=== PATIENT | male | born 1965 | race African-American/Black ===

== ENCOUNTER 2018-08-27 17:03 | Observation (INO) | payer OTHER, SELFPAY ==
--- OUTSIDE RECORDS SUMMARY | 2018-08-27 17:05 | XMS REPORT | Clinical Summary ---
:1965 Author Organization [facility] Address [address] [place] [address] Care Team Providers Name Role Phone Veronika Botello MD Primary Care Provider Allergies No Known Allergies Medications Medication Sig Dispensed Refills Start Date End Date Status carvedilol (COREG) 25 Take 25 mg by 0 Active MG tablet mouth 2 (two) times a day with meals. lisinopril Take 20 mg by 0 Active (PRINIVIL,ZESTRIL) 20 mouth 2 (two) mg tablet times a day. sacubitril-valsartan Take 1 tablet by 0 Active (ENTRESTO) 49-51 mg mouth 2 (two) tablet per tablet times a day. Active Problems Problem Noted Date Cerebrovascular accident (CVA) due to embolism of right middle cerebral 2016 artery Immunizations Name Dates Previously Given Next Due INFLUENZA QUAD PF 09/18/2016 Social History Tobacco Use Types Packs/Day Years Used Date Current Every Day Smoker Cigarettes 1 Alcohol Use Drinks/Week oz/Week Comments Yes Sex Assigned at Date Recorded Not on file Job Start Date Occupation Industry Not on file Not on file Not on file Travel History Travel Start Travel End No recent travel history available. Last Filed Vital Signs Not on file Plan of Treatment Health Maintenance Due Date Last Done Comments COLON CANCER SCREENING 11/22/2017 SHINGLES VACCINES (1 of 2) 11/22/2017 INFLUENZA VACCINE 03/02/2018 09/18/2016 Implants Implanted Type Area News Analyst Device Shelf Model / Identifier Expiration Serial / Date Lot Neuron Select 5f 130 Cascade - [id number] Surgical N/A: [employer] [id number] / Implanted: 09/18/2016 (Quantity not on file) Implants; N/A / Expanders; Extenders; Surgical Wires Catheter [id number] Reperfusion High Flow Tubing 6.0f 132cm - [id number] Surgical N /A: [employer] [id number] / Implanted: 09/18/2016 (Quantity not on file) Implants; N/A / Expanders; Extenders; Surgical Wires 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 For more information, please contact:Mervin Archer[address] [place] [address]
--- OUTSIDE RECORDS SUMMARY | 2018-08-27 17:26 | XMS REPORT | Continuity of Care Document ---
:1965 Author Organization Interface Problems Problem Status Onset Classification Date Comments Source Date Reported Discharge Diagnosis: 04/24/2017 Acute headache [facility]17 [facility] GOMES Active 017 [facility] HEADACHE Active 017 [facility] I63.9 STROKE, R58 Active [facility] HEMORRHAGE [place] STROKE Active [facility] 017 [facility] Discharge Diagnosis: 08/30/2016 [facility] Seizure [facility]17 [place] SEIZURE Active [facility]17 [place] ACUTE CEREBROVASCULAR Active [facility] ACCIDENT 016 [facility] ARM WEAKNESS, FACIAL Active [facility] DROOP 016 [facility] Discharge Diagnosis: 03/10/2016 [facility] Acute viral syndrome 016 [facility] Discharge Diagnosis: 03/10/2016 [facility] Atypical chest pain 016 [place] Discharge Diagnosis: 03/10/2016 [facility] Acute hypokalemia 016 [facility] CHEST PAIN Active [facility] 016 [facility] Discharge Diagnosis: 02/21/2016 [facility] Syncope 016 [facility] Discharge Diagnosis: 02/21/2016 [facility] Tonic seizure 016 [facility] SYNCOPE Active Greater 016 [facility] Discharge Diagnosis: 11/25/2014 Muscle strain 015 [facility] Discharge Diagnosis: 11/25/2014 Flank pain 015 [facility] BACK PAIN Active 015 [facility] SHORTNESS OF BREATH Active 015 [facility] OTHER TENOSYNOVITIS OF Active [facility] HAND AND WRIST 014 [facility] Center HAND EDEMA Active 014 [place] HAND INFECTION Active [address] ABDOMINAL PAIN Active 014 [facility] Discharge Diagnosis: 12/02/2013 Acute bronchitis 014 [facility] SPITTING UP BLOOD Active 014 [facility] FLU LIKE SYMPTOMS Active 013 [facility] CHF (<span Active Problem 04/24/2017 [facility] ID="[id number]">[facility] [place] rmed</span>) [facility] CHF (<span Active Problem 02/11/2018 [facility] ID="[id number]">[facility] 013 [place] rmed</span>) jai Neuro CVA (<span Active Problem 04/24/2017 [facility] ID="[id number]">[facility] [place] ir[facility]</span>) [facility] Diabetes Resolved Problem 04/24/2017 [facility] [place] H/O: stroke Resolved Problem 04/24/2017 [facility] [place] [place] HTN - Hypertension Active Problem 04/24/2017 [facility] [place] Hypercholesterolemia Active Problem 04/24/2017 [facility] [place] Obesity Active Problem 04/24/2017 [place] Seizure Active Problem 04/24/2017 [facility] [place] Spider bite wound Resolved Problem 04/24/2017 [facility] [place] Syncope Resolved Problem 04/24/2017 [facility] [place] CVA (<span Active Problem 02/11/2018 [facility] ID="[id number]">[place] irmed</span>) [facility] Diabetes Resolved Problem 02/11/2018 [facility] [place] H/O: stroke Resolved Problem 02/11/2018 [facility] [place] HTN - Hypertension Active Problem 02/11/2018 [facility] [place] Hypercholesterolemia Active Problem 02/11/2018 [facility] [place] Obesity Active Problem 02/11/2018 [facility] [place] Seizure Active Problem 02/11/2018 [facility] [place] Spider bite wound Resolved Problem 02/11/2018 [facility] [place] Syncope Resolved Problem 02/11/2018 [facility] [place] CHF NOS Active [facility] RENAL FAILURE NOS Active [facility] BACTERIAL INFECTION Active [facility] SEPTICEMIA NOS Active [facility] LEFT SIDE - STROKE Active [facility] CEREBRAL INFARCTION, Active [facility] UNSPECIFIED [place] ALCOHOL Active Prevention HEMORRHAGE, NOT Active [facility] ELSEWHERE CLASSIFIED [place] ANESTHESIA OF SKIN Active [facility] Medications Medication Details Route Status Patient Ordering Order Source Instructions Provider Date topiramate 25 MG See Active 04/19/ Oral Tablet Instructions, 2016 [facility] [Topamax] 1 tab PO BID for 7 days, then 2 tab PO BID thereafter, # 70 tab, 0 Refill(s), Pharmacy: [facility]/pharmacy #[id number] clopidogrel 75 MG 75 mg=1 tab, Active Oral Tablet PO, Daily, # 2017 [facility] [Plavix] 30 tab, 0 Refill(s), Pharmacy: [facility]/pharmacy #[id number] NIFEdipine 60 mg 60 mg=1 tab, Active oral tablet, PO, Daily, # 2017 [facility] extended release 30 tab, 0 Refill(s), Pharmacy: [facility]/pharmacy #[id number] carvedilol 25 mg 25 mg=1 tab, Active oral tablet PO, BID, # 60 2017 [facility] tab, 0 Refill(s), Pharmacy: [facility]/pharmacy #[id number] atorvastatin 20 mg 20 mg=1 tab, Active oral tablet PO, Bedtime, # 2017 [facility] 30 tab, 0 Refill(s), [id number] Aspirin 325 MG 325 mg=1 tab, Active Enteric Coated PO, Daily, # 2017 [facility] Tablet 100 tab, 0 Refill(s), [id number] sacubitril 97 MG / 1 tab, PO, Active valsartan 103 MG BID, # 60 tab, 2017 [facility] Oral Tablet 0 Refill(s), [id number] heparin sodium, 5,000 unit, 1 Inactive porcine 2500 mL, Route: 2016 [facility] UNT/ML Injectable SUB-Q, Drug Solution form: INJ, Q8H, Dosing Weight 100, kg, Start date: 04/19/17 0:00:00 CDT, Duration: 30 day, Stop date: 05/18/17 16:00:00 CDTNotes: porcine heparin sacubitril 97 MG / 1 tab, Route: No Longer valsartan 103 MG PO, Drug Form: Active 2016 [facility] Oral Tablet TAB, Dosing Weight 100, kg, Q12H, Start date: 04/18/17 21:06:00 CDT, Duration: 30 day, Stop date: 05/18/17 21:00:00 CDTNotes: (Same as: Entresto) Avoid in patients with history of angioedema due to BECKY inhibitor or ARB therapy. Do not use concomitantly or within 36 hours of BECKY inhibitors Saline Flush 0.9% 10 ml, Route: No Longer IVP, Drug Active 2016 [facility] Form: INJ, Dosing Weight 100, kg, Q12H, Start date: 04/18/17 21:00:00 CDT, Duration: 30 day, Stop date: 05/18/17 9:00:00 CDTNotes: (Same as: BD Posiflush) atorvastatin 40 mg, 1 tab, Inactive Route: PO, 2016 Drug form: TAB, Bedtime, Dosing Weight 100, kg, Start date: 04/18/17 21:00:00 CDT, Duration: 30 day, Stop date: 05/17/17 21:00:00 CDTNotes: (Same as: Lipitor) Levetiracetam 750 750 mg, 1.5 No Longer MG Oral Tablet tab, Route: Active 2016 [facility] [Keppra] PO, Drug form: TAB, BID, Dosing Weight 100, kg, Start date: 04/18/17 21:00:00 CDT, Duration: 30 day, Stop date: 05/18/17 17:00:00 CDTNotes: (Same as:Keppra) carvedilol 25 mg, 1 tab, No Longer Route: PO, Active 2016 [facility] Drug form: TAB, Q12H, Dosing Weight 100, kg, Start date: 04/18/17 21:00:00 CDT, Duration: 30 day, Stop date: 05/18/17 9:00:00 CDTNotes: Give with food. (Same As: Coreg) Frantz's wort 1 tab, PO, Active oral capsule [id number], 0 2016 Refill(s) Ibuprofen 800 mg, PO, Active BID, 0 2016 Refill(s) gabapentin 300 MG 300 mg=1 cap, Active Oral Capsule PO, TID, # 90 2016 cap, 1 Refill(s) Hydralazine 10 mg, 0.5 mL, No Longer Route: IVP, Active 2016 [facility] Drug form: INJ, Q4H, Dosing Weight 100, kg, PRN Other -See Comment, Possible stroke patient - allow for some permissive hypertension, Start date: 04/18/17 17:33:00 CDT, Duration: 30 day, Stop date: 05/18/17 17:32:00 CDT, SBP...Notes: (Same as: Apresoline) Push over 5 minutes Zofran 4 mg, 2 mL, No Longer Route: IV, Active 2016 [facility] Drug form: INJ, Q8H, Dosing Weight 100, kg, PRN Nausea, Start date: 04/18/17 17:33:00 CDT, Duration: 30 day, Stop date: 05/18/17 17:32:00 CDTNotes: (Same as: Zofran) MEDICATION WASTE Product Size: 4 mg Product Wasted: ___ mg Tylenol 650 mg, 2 tab, No Longer Route: PO, Active 2016 [facility] Drug form: TAB, Q6H, Dosing Weight 100, kg, PRN Pain 1-3/Temp > 100.4 F, Start date: 04/18/17 17:33:00 CDT, Duration: 30 day, Stop date: 05/18/17:32:00 CDTNotes: Do not exceed 4 gm/day. (Same as: Tylenol) Tums 500 mg, 1 tab, No Longer Route: CHEW, Active 2016 [facility] Drug form: CHEWTAB, Q8H, Dosing Weight 100, kg, PRN Indigestion, Start date: 04/18/17 17:33:00 CDT, Duration: 30 day, Stop date: 05/18/17 17:32:00 CDTNotes: (Same As: Tums) Calcium Carbonate 500 [id number] mg elemental calcium Dose= mg calcium carbonate ( mg elemental calcium) Saline Flush 0.9% 10 ml, Route: Inactive IVP, Drug 2016 [facility] Form: INJ, Dosing Weight 100, kg, PRN, PRN Line Flush, Start date: 04/18/17 17:33:00 CDT, Duration: 30 day, Stop date: 05/18/17 17:32:00 CDT Trazodone 50 mg, 1 tab, No Longer Route: PO, Active 2016 [facility] Drug form: TAB, Bedtime, Dosing Weight 100, kg, PRN Sleep, Start date: 04/18/17 17:33:00 CDT, Duration: 30 day, Stop date: 05/18/17 17:32:00 CDT, ..Notes: (Same As: Desyrel) clopidogrel 75 mg, 1 tab, No Longer Route: PO, Active 2016 [facility] Drug form: TAB, Daily, Dosing Weight 100, kg, Priority: STAT, Start date: 04/18/17 17:33:00 CDT, Duration: 30 day, Stop date: 05/18/17 9:00:00 CDTNotes: (Same As: Plavix) Aspirin 325 MG 325 mg, 1 tab, No Longer Enteric Coated Route: PO, Active 2016 [facility] Tablet Drug form: ECTAB, Daily, Dosing Weight 100, kg, Priority: STAT, Start date: 04/18/17 17:33:00 CDT, Duration: 30 day, Stop date: 05/18/17 9:00:00 CDTNotes: (Do Not Crush) Do not crush or chew. Famotidine 20 mg, 1 tab, No Longer Route: PO, Active 2016 [facility] Drug form: TAB, Q12H, Dosing Weight 100, kg, PRN Indigestion, Start date: 04/18/17 17:33:00 CDT, Duration: 30 day, Stop date: 05/18/17 17:32:00 CDTNotes: (Same as: Pepcid) Docusate 100 mg, 1 cap, No Longer Route: PO, Active 2016 [facility] Drug form: CAP, Q12H, Dosing Weight 100, kg, PRN as needed for constipation, Start date: 04/18/17 17:33:00 CDT, Duration: 30 day, Stop date: 05/18/17 17:32:00 CDTNotes: (Same as: Colace) (Do Not Crush) Aspirin 324 mg, 4 tab, Inactive Route: CHEW, 2016 [facility] Drug form: CHEWTAB, ONCE, Dosing Weight 100, kg, Priority: STAT, Start date: 04/18/17 17:30:00 CDT, Stop date: 04/18/17 17:30:00 CDTNotes: Take with food. Metoclopramide 10 mg, 2 mL, Inactive Route: IVP2016 [facility] Drug form: INJ, ONCE, Dosing Weight 100, kg, Priority: STAT, Start date: 04/18/17 15:27:00 CDT, Stop date: 04/18/17 15:27:00 CDTNotes: (Same as: Reglan) Diphenhydramine 25 mg, 0.5 mL, Inactive Route: IVP, 2016 [facility] Drug form: INJ, ONCE, Dosing Weight 100, kg, Priority: STAT, Start date: 04/18/17 15:27:00 CDT, Stop date: 04/18/17 15:27:00 CDTNotes: (Same as: Benadryl) Saline Flush 0.9% 10 mL, Route: No Longer IVP, Drug Active 2016 [facility] Form: INJ, Dosing Weight 100, kg, PRN, PRN Line Flush, Start date: 04/18/17 15:27:00 CDT, Duration: 30 day, Stop date: 05/18/17 15:26:00 CDTNotes: (Same as: BD Posiflush) Tylenol 650 mg, 2 tab, Inactive Route: PO, 2016 [facility] Drug form: TAB, ONCE, Dosing Weight 97.727, kg, Priority: STAT, Start date: 08/27/16 15:28:00 SEISMOGRAPH OBSERVER, Stop date: 08/27/16 15:28:00 CSTNotes: Do not exceed 4 gm/day. (Same as: Tylenol) Saline Flush 0.9% 10 mL, Route: Inactive Greater IVP, Drug 2016 [facility] Form: INJ, Dosing Weight 97.727, kg, PRN, PRN Line Flush, Start date: 08/27/16 13:45:00 SEISMOGRAPH OBSERVER, Duration: 30 day, Stop date: 09/26/16 13:44:00 CSTNotes: Same as: BD Posiflush Sterile Levetiracetam 1000 1,000 mg, 2 Inactive [facility] MG Oral Tablet tab, Route: 2015 [facility] [Keppra] PO, Drug form: TAB, Q12H, Dosing Weight 97.727, kg, Start date: 07/30/16 21:00:00 SEISMOGRAPH OBSERVER, Duration: 30 day, Stop date: 08/29/16 9:00:00 CSTNotes: (Same as:Keppra) Omnipaque 350 100 mL, 100 Inactive [facility] ml/hr, Route: 2015 IV, Drug Form: SOLN, ONCALL, Start date: 07/30/16 9:00:00 SEISMOGRAPH OBSERVER, Duration: 48 hr, Stop date: 08/01/16 8:59:00 CSTNotes: (same as:Omnipaque 350). WASTE: F/P - Black; E - Municipal Trash Bin Levetiracetam 750 750 mg=1 tab, Active [facility] MG Oral Tablet PO, BID, # 60 2015 [Keppra] tab, 0 Refill(s) Aspirin 325 MG 325 mg=1 tab, Active [facility] Oral Tablet PO, Daily, # 2015 50 tab, 0 Refill(s) Aspirin 325 mg, 1 tab, No Longer Greater Route: PO, Active 2015 Drug form: TAB, Daily, Dosing Weight 97.727, kg, Start date: 07/29/16 9:00:00 SEISMOGRAPH OBSERVER, Duration: 30 day, Stop date: 08/27/16 9:00:00 CSTNotes: Take with food. Ambien 5 mg, 1 tab, No Longer Greater Route: PO, Active 2015 Drug form: TAB, Bedtime, Dosing Weight 97.727, kg, PRN Insomnia, Start date: 07/28/16 21:30:00 SEISMOGRAPH OBSERVER, Duration: 30 day, Stop date: 08/27/16 21:29:00 CSTNotes: (Same As: Ambien) Chlordiazepoxide 25 mg, 1 cap, No Longer Greater Hydrochloride 25 Route: PO, Active 2015 [facility] Oral Capsule Drug form: CAP, QID, Dosing Weight 97.727, kg, Start date: 07/28/16 17:00:00 SEISMOGRAPH OBSERVER, Duration: 30 day, Stop date: 08/27/16 13:00:00 SEISMOGRAPH OBSERVER Keppra 1,000 mg, 100 No Longer Greater mL, Route: Active 2015 IVPB, Drug form: INJ, Q12H, Dosing Weight 97.727, kg, Priority: NOW, Start date: 07/28/16 14:54:00 SEISMOGRAPH OBSERVER, Duration: 30 day, Stop date: 08/27/16 9:00:00 SEISMOGRAPH OBSERVER Levetiracetam 1000 1,000 mg, Inactive Greater MG Oral Tablet Route: PO, 2015 [Keppra] Drug form: TAB, Q12H, Dosing Weight 97.727, kg, Priority: NOW, Start date: 07/28/16 14:53:00 SEISMOGRAPH OBSERVER, Duration: 30 day, Stop date: 08/27/16 9:00:00 SEISMOGRAPH OBSERVER Benzocaine 15 MG / 1 lozenge, No Longer Greater Menthol 3.6 MG Route: MUCOUS Active 2015 Lozenge [Cepacol MEM, Drug Sore Throat Pain Form: LADARIUS, Relief 15/3.6] Dosing Weight 97.727, kg, Q4H, PRN Sore Throat, Start date: 07/28/16 10:06:00 SEISMOGRAPH OBSERVER, Duration: 30 day, Stop date: 08/27/16 10:05:00 CSTNotes: Same as: Cepacol tramadol 50 mg, 1 tab, No Longer Greater hydrochloride 50 Route: PO, Active 2015 [facility] Oral Tablet Drug form: TAB, Q4H, Dosing Weight 97.727, kg, PRN Pain Score 1-3, Start date: 07/28/16 9:45:00 SEISMOGRAPH OBSERVER, Duration: 30 day, Stop date: 08/27/16 9:44:00 CSTNotes: Not to exceed 400mg/day. (Same As: Ultram) sacubitril 49 MG / 1 tab, Route: No Longer Greater valsartan 51 MG PO, Drug Form: Active 2015 Oral Tablet TAB, Dosing [Entresto] Weight 97.727, kg, BID, Start date: 07/28/16 9:00:00 SEISMOGRAPH OBSERVER, Duration: 30 day, Stop date: 08/26/16 17:00:00 SEISMOGRAPH OBSERVER Ativan 1 mg, 0.5 mL, No Longer Greater Route: IVP, Active 2015 Drug form: INJ, Q15Min, Dosing Weight 97.727, kg, PRN Seizure, CALL MD IF SEIZURE DOES NOT STOP AFTER 2 DOSES, Start date: 07/28/16 4:38:00 SEISMOGRAPH OBSERVER, Duration: 30 day, Stop date: 08/27/16 4:37:00 CSTNotes: (Same as: Ativan) Saline Flush 0.9% 10 ml, Route: No Longer Greater IVP, Drug Active 2015 Form: INJ, Dosing Weight 97.727, kg, Q12H, Start date: 07/27/16 21:00:00 SEISMOGRAPH OBSERVER, Duration: 30 day, Stop date: 08/26/16 9:00:00 CSTNotes: Same as: BD Posiflush Sterile Lipitor 20 mg, 1 tab, No Longer Greater Route: PO, Active 2015 Drug form: TAB, Bedtime, Dosing Weight 97.727, kg, Start date: 07/27/16 21:00:00 SEISMOGRAPH OBSERVER, Duration: 30 day, Stop date: 08/25/16 21:00:00 CSTNotes: (Same As: Lipitor) sacubitril-valsart 2 tab, Route: No Longer Greater an PO, Drug Form: Active 2015 TAB, Q12H, Start date: 07/27/16 21:00:00 SEISMOGRAPH OBSERVER, Duration: 30 day, Stop date: 08/26/16 9:00:00 CSTNotes: (Same as: Entresto) Avoid in patients with history of angioedema due to BECKY inhibitor or ARB therapy. Do not use concomitantly or within 36 hours of BECKY inhibitors Clonidine 0.2 mg, 1 tab, No Longer Greater Hydrochloride 0.2 Route: PO, Active 2015 [facility] Oral Tablet Drug form: TAB, Q4H, Dosing Weight 97.727, kg, PRN Hypertension, FOR SBP>170, Start date: 07/27/16 20:28:00 SEISMOGRAPH OBSERVER, Duration: 30 day, Stop date: 08/26/16 20:27:00 CSTNotes: (Same As: Catapres) Tylenol 650 mg, 2 tab, No Longer Greater Route: PO, Active 2015 Drug form: TAB, Q4H, Dosing Weight 97.727, kg, PRN Pain Score 1-3, Start date: 07/27/16 20:25:00 SEISMOGRAPH OBSERVER, Duration: 30 day, Stop date: 08/26/16 20:24:00 CSTNotes: Do not exceed 4 gm/day. (Same as: Tylenol) Saline Flush 0.9% 10 ml, Route: No Longer Greater IVP, Drug Active 2015 Form: INJ, Dosing Weight 97.727, kg, PRN, PRN Line Flush, Start date: 07/27/16 19:29:00 SEISMOGRAPH OBSERVER, Duration: 30 day, Stop date: 08/26/16 19:28:00 CSTNotes: Same as: BD Posiflush Sterile 24 HR Nifedipine 60 mg, 1 tab, No Longer Greater 60 MG Extended Route: PO, Active 2015 Release Tablet Drug form: ERTAB, Daily, Dosing Weight 97.727, kg, Start date: 07/27/16 18:15:00 SEISMOGRAPH OBSERVER, Duration: 30 day, Stop date: 08/26/16 9:00:00 CSTNotes: (Same as: Adalat CC, Procardia XL) Give on empty stomach. Take 1 hour before or 2 hours after meal; "Avoid grapefruit and grapefruit juice". Do not crush carvedilol 25 mg, 1 tab, No Longer Greater Route: PO, Active 2015 Drug form: TAB, BID, Dosing Weight 97.727, kg, Start date: 07/27/16 18:14:00 SEISMOGRAPH OBSERVER, Duration: 30 day, Stop date: 08/26/16 17:00:00 CSTNotes: Give with food. (Same As: Coreg) Keppra 500 mg, Route: No Longer Greater IVPB, BID, Active 2015 Dosing Weight 97.727, kg, Priority: Routine, Start date: 07/27/16 17:00:00 SEISMOGRAPH OBSERVER, Duration: 30 day, Stop date: 08/26/16 5:00:00 CSTNotes: Same as Keppra Mix with 100 mL NS, LR or D5W MEDICATION WASTE Product Size: 500 mg Product Wasted: ___ mg Ativan 1 mg, 0.5 mL, Inactive Route: IVP, 2015 Drug form: INJ, ONCE, Priority: NOW, Start date: 07/27/16 16:22:00 SEISMOGRAPH OBSERVER, Stop date: 07/27/16 16:22:00 CSTNotes: (Same as: Ativan) pneumococcal 0.5 mL, Route: No Longer Greater capsular IM, Drug Form: Active 2015 polysaccharide INJ, ONCALL, type 1 vaccine / Start date: pneumococcal 07/27/16 capsular 14:55:38 SEISMOGRAPH OBSERVER, polysaccharide Stop date: type 10A vaccine / 08/26/16 pneumococcal 14:50:38 capsular CSTNotes: polysaccharide (Same as: type 11A vaccine / Pneumovax 23) pneumococcal Refrigerate capsular polysaccharide type 12F vaccine / pneumococcal capsular polysacchar influenza virus 0.5 mL, Route: No Longer Greater vaccine, IM, Drug Form: Active 2015 inactivated SUSP, ONCALL, Start date: 07/27/16 14:54:37 SEISMOGRAPH OBSERVER, Stop date: 08/26/16 14:49:37 CSTNotes: (Same as: Fluzone Quadrivalent, Fluarix Quadrivalent) For 3 years of age and older (0.5 mL IM) Shake well before use sacubitril 49 MG / 1 tab, PO, BID Active valsartan 51 MG 2015 Oral Tablet [Entresto] Aspirin 324 mg, 4 tab, Inactive Route: CHEW, 2015 Drug form: CHEWTAB, ONCE, Dosing Weight 97.727, kg, Priority: STAT, Start date: 07/27/16 13:12:00 SEISMOGRAPH OBSERVER, Stop date: 07/27/16 13:12:00 CSTNotes: Take with food. Acetaminophen 325 1 tab, Route: Inactive Greater MG / Hydrocodone PO, Drug Form: 2015 Bitartrate 5 MG TAB, Dosing Oral Tablet [[place] Weight 97.727, 5/325] kg, ONCE, STAT, Start date: 07/27/16 13:12:00 SEISMOGRAPH OBSERVER, Stop date: 07/27/16 13:12:00 CSTNotes: (Same as: [place] 325/5) Do not exceed 4gm/day of acetaminophen. Saline Flush 0.9% 10 mL, Route: No Longer Greater IVP, Drug Active 2015 Form: INJ, Dosing Weight 94.545, kg, PRN, PRN Line Flush, Start date: 07/27/16 11:14:00 SEISMOGRAPH OBSERVER, Duration: 30 day, Stop date: 08/26/16 11:13:00 CSTNotes: Same as: BD Posiflush Sterile Potassium Chloride 20 mEq=15 mL, Active Greater 1.33 MEQ/ML Oral PO, BID, 1.33 2015 [facility] Solution mEq/ml, # 150 mL, 0 Refill(s) potassium chloride 10 mEq, 100 Inactive Greater mL, Route: 2015 [facility] IVPB, Drug form: INJ, Q1H, Dosing Weight 94.545, kg, Total Dose=40 meq, Start date: 03/07/16 16:00:00 CDT, Duration: 4 doses or times, Stop date: 03/07/16 19:00:00 CDT, Peripheral LineNotes: Infuse at a rate of 10 mEq/hr. (Same as: KCL) sodium chloride 1,000 mL, Inactive Greater 0.9% 1000 ml INJ Rate: 1,000 2015 [facility] 1,000 mL ml/hr, Infuse over: 1 hr, Route: IV, Dosing Weight 94.545 kg, Total Volume: 1,000, Priority: STAT, Start date: 03/07/16 15:27:00 CDT, Duration: 1 doses or times, Stop date: 03/07/16 16:26:00 CDT atorvastatin 20 MG 20 mg=1 tab, Active Greater Oral Tablet PO, Daily 2015 [facility] [Lipitor] 24 HR Nifedipine 60 mg=1 tab, Active Greater 60 MG Extended PO, Daily 2015 [facility] Release Tablet lisinopril 20 mg 20 mg=1 tab, Active Greater oral tablet PO, BID 2015 [facility] carvedilol 25 mg 25 mg=1 tab, Active Greater oral tablet PO, BID 2015 [facility] Potassium Chloride 40 mEq, 15 mL, Inactive Greater 1.33 MEQ/ML Oral Route: PO, 2015 [facility] Solution Drug form: LIQ, ONCE, Dosing Weight 94.545, kg, Priority: STAT, Start date: 03/07/16 15:12:00 CDT, Stop date: 03/07/16 15:12:00 CDT GI cocktail 30 mL, Route: Inactive PO, Drug Form: 2015 SUSP, Dosing Weight 94.545, kg, ONCE, STAT, Start date: 03/07/16 13:44:00 CDT, Stop date: 03/07/16 13:44:00 CDTNotes: G.I. Cocktail=antac id with simethicone 22.5 mL - lidocaine viscous 7.5 mL Tylenol 650 mg, 2 tab, Inactive Route: PO, 2015 Drug form: TAB, ONCE, Dosing Weight 94.545, kg, Priority: STAT, Start date: 03/07/16 13:43:00 CDT, Stop date: 03/07/16 13:43:00 CDTNotes: Do not exceed 4 gm/day. (Same as: Tylenol) Sodium Chloride 1,000 mL, 1000 Inactive 0.154 MEQ/ML ml/hr, Infuse 2015 Injectable Over: 1 hr, Solution Route: IV, 1,000, Drug form: INJ, ONCE, Priority: STAT, Dosing Weight 94.545 kg, Start date: 03/07/16 13:04:00 CDT, Duration: 1 doses or times, Stop date: 03/07/16 13:04:00 CDT Saline Flush 0.9% 10 mL, Route: Inactive IVP, Drug 2015 Form: INJ, Dosing Weight 94.545, kg, PRN, PRN Line Flush, Start date: 03/07/16 13:04:00 CDT, Duration: 30 day, Stop date: 04/06/16 13:03:00 CDTNotes: Same as: BD Posiflush Sterile Omnipaque 350 100 mL, Route: Inactive INJ, Drug 2015 [facility] Form: SOLN, ONCALL, Start date: 02/18/16 16:00:00 CDT, Duration: 1 doses or timesNotes: (same as:Omnipaque 350). WASTE: F/P - Black; E - Municipal Trash Bin Hydralazine 20 mg, 1 mL, Inactive Route: IVP, 2015 Drug form: INJ, ONCE, Dosing Weight 81.818, kg, Priority: STAT, Start date: 02/18/16 15:08:00 CDT, Stop date: 02/18/16 15:08:00 CDTNotes: (Same as: Apresoline) Push over 5 minutes Acetaminophen 650 mg, 2 tab, Inactive Route: PO, 2015 Drug form: TAB, ONCE, Dosing Weight 81.818, kg, Priority: STAT, Start date: 02/18/16 12:26:00 CDT, Stop date: 02/18/16 12:26:00 CDTNotes: Do not exceed 4 gm/day. (Same as: Tylenol) Labetalol 20 mg, 4 mL, Inactive Route: IVP, 2015 Drug form: INJ, ONCE, Dosing Weight 81.818, kg, Priority: STAT, Start date: 02/18/16 12:26:00 CDT, Stop date: 02/18/16 12:26:00 CDT Saline Flush 0.9% 10 mL, Route: Inactive IVP, Drug 2015 Form: INJ, Dosing Weight 81.818, kg, PRN, PRN Line Flush, Start date: 02/18/16 11:44:00 CDT, Duration: 30 day, Stop date: 03/19/16 11:43:00 CDTNotes: Same as: BD Posiflush Sterile Naproxen sodium 550 mg=1 tab, Active [facility] 550 MG Oral Tablet PO, BID, PRN 2014 [facility] [Anaprox] Pain, X 10 day, # 20 tab, 0 Refill(s) Acetaminophen 300 1 - 2 tab, PO, No Longer [facility] MG / Codeine Q4H, PRN Pain, Active 2014 [facility] Phosphate 60 MG X 2 day, # 12 Oral Tablet tab, 0 [Tylenol with Refill(s) Codeine #4] Cyclobenzaprine 10 mg=1 tab, Active hydrochloride 10 PO, TID, PRN 2014 [facility] MG Oral Tablet for spasm/back [Flexeril] pain, X 5 day, # 15 tab, 0 Refill(s) carvedilol PO, 0 Active Refill(s) 2014 [facility] Lisinopril PO, Daily, 0 Active Refill(s) 2014 [facility] Metformin PO, 0 Active Refill(s) 2014 [facility] Simvastatin PO, Bedtime, 0 Active Refill(s) 2014 [facility] Hydrochlorothiazid PO, Daily, 0 Active e Refill(s) 2014 [facility] Morphine 4 mg, Route: Inactive IVP, ONCE, 2014 [facility] Dosing Weight 93.835, kg, Priority: STAT, Start date: 11/22/14 11:18:00, Stop date: 11/22/14 11:18:00 Ketorolac 30 mg, Route: Inactive IVP, ONCE, 2014 [facility] Dosing Weight 93.835, kg, Priority: STAT, Start date: 11/22/14 11:18:00, Stop date: 11/22/14 11:18:00 Ondansetron 4 mg, Route: Inactive IVP, ONCE, 2014 [facility] Dosing Weight 93.835, kg, Priority: STAT, Start date: 11/22/14 11:18:00, Stop date: 11/22/14 11:18:00 Saline Flush 0.9% 10 mL, Route: Inactive IVP, Drug 2014 [facility] Form: INJ, Dosing Weight 93.835, kg, PRN, PRN Line Flush, Start date: 11/22/14 11:18:00, Duration: 12 hr, Stop date: 11/22/14 23:17:00Notes: (Same as: BD Posiflush) Sodium Chloride 1,000 mL, Inactive 0.154 MEQ/ML Infuse Over: 1 2014 [facility] Injectable hr, Route: IV, Solution ONCE, Priority: STAT, Dosing Weight 93.835 kg, Start date: 11/22/14 11:18:00, Duration: 1 doses or times, Stop date: 11/22/14 11:18:00 tramadol 50 mg=1 tab, Active hydrochloride 50 PO, Q6H, # 30 2015 [facility] Oral Tablet tab, 0 Refill(s) lisinopril 10 mg 10 mg=1 tab, Active oral tablet PO, Daily, # 2015 [facility] 60 tab, 0 Refill(s) carvedilol 25 mg 25 mg=1 tab, Active oral tablet PO, Q12H, # 60 2014 [facility] tab, 0 Refill(s) Aspirin 81 MG 81 mg=1 tab, Active Enteric Coated PO, Daily, # 2015 [facility] Tablet 30 tab, 0 Refill(s) Hydrochlorothiazid 25 mg=1 tab, Active e 25 MG Oral PO, Daily, # 2015 [facility] Tablet 30 tab, 0 Refill(s) Alprazolam 0.5 MG 0.5 mg=1 tab, Active Oral Tablet PO, TID, 2014 [facility] [Xanax] Anxiety, # 24 tab, 0 Refill(s) Ciprofloxacin 500 500 mg=1 tab, Active [place] Oral Tablet PO, Q12H, # 14 2014 [facility] [Cipro] tab, 0 Refill(s) Albuterol 0.09 1 puff, Active MG/ACTUAT Inhalant INHALATION, 2014 [facility] Solution QID, wheezing, # 1 ea, 0 Refill(s) {21 As directed on Active (Methylprednisolon package 2014 [facility] e 4 MG Oral Tablet instructions, [Medrol]) } Pack PO, Daily, [Medrol Dosepak] Take with or without food, # 1 Pack, 0 Refill(s)Speci al Instructions: Take with or without food simvastatin 40 mg 40 mg=, PO, Active oral tablet Bedtime, # 30 2014 [facility] tab, 0 Refill(s) Metformin 500 mg=1 tab, Active hydrochloride 500 PO, BID, # 60 2014 [facility] Oral Tablet tab, 0 Refill(s) vancomycin + 1.25 gm, Inactive Dextrose 5% in Route: IVPB, 2014 [facility] Water IV 250 mL [id number], Start date: 08/17/14 6:00:00, Duration: 30 day, Stop date: 09/15/14 18:00:00Notes: (Same As: Vancocin) Infusion rate 2001 mg: infuse over 2.5 hours vancomycin + 1.5 gm, Route: Inactive Dextrose 5% in IVPB, ONCE, 2014 [facility] Water IV 250 mL Start date: 08/16/14 18:00:00, Stop date: 08/16/14 18:00:00Notes: (Same As: Vancocin) Infusion rate 2001 mg: infuse over 2.5 hours Vancomycin 1 ea, Route: Inactive MISC, Dosing 2014 [facility] Weight 96.96, kg, ONCALL, STAT, Start date: 08/16/14 16:33:00, Duration: 1 doses or times, Pharmacy to doseSpecial Instructions: Pharmacy to dose Zosyn 3.375 gm, No Longer Route: IVPB, Active 2014 [facility] [id number], Dosing Weight 96.96, kg, Start date: 08/16/14 12:00:00, Duration: 30 day, Stop date: 09/12/14 12:00:00Notes: (Same as: Zosyn) Dosing based on Piperacillin component carvedilol 25 mg, 1 tab, No Longer Route: PO, Active 2014 [facility] Drug form: TAB, BID, Dosing Weight 113.636, kg, Start date: 08/15/14 21:00:00, Duration: 30 day, Stop date: 09/14/14 9:00:00Notes: Give with food. (Same As: Coreg) multivitamin 1 tab, Route: No Longer PO, Drug Form: Active 2014 [facility] TAB, BID, Start date: 08/15/14 21:00:00, Duration: 2 day, Stop date: 08/17/14 9:00:00Notes: Same as Cerefolin NAC Non-formulary item Levaquin 750 mg, 150 No Longer mL, Route: Active 2014 [facility] IVPB, Drug form: SOLN, [id number], Dosing Weight 96.96, kg, Start date: 08/15/14 19:00:00, Duration: 30 day, Stop date: 09/13/14 19:00:00Notes: (Same as:Levaquin) Albuterol 0.833 3 mL, Route: No Longer MG/ML / NEB, Drug Active 2014 [facility] Ipratropium Form: SOLN, [place] 0.167 Dosing Weight MG/ML Inhalant 113.636, kg, Solution [id number], Start date: 08/15/14 19:00:00, Stop date: 09/13/14 11:00:00Notes: (Same as: Duoneb) Vasotec 1.25 mg, 1 mL, No Longer Route: IVP, Active 2014 [facility] Drug form: INJ, Q8H, Dosing Weight 96.96, kg, PRN Other -See Comment, PRN SBP >/=160, Start date: 08/15/14 18:42:00, Duration: 30 day, Stop date: 09/14/14 18:41:00Notes: (Same as: Vasotec-IV) Acetylcysteine 200 600 mg, Route: Inactive MG/ML Inhalant PO, Drug form: 2014 [facility] Solution SOLN, BID, Dosing Weight 96.96, kg, Priority: STAT, Start date: 08/15/14 18:35:00, Duration: 2 day, Stop date: 08/17/14 17:00:00 Lopressor 5 mg, 5 mL, No Longer Route: IVP, Active 2014 [facility] Drug form: INJ, Q6H, Dosing Weight 96.96, kg, PRN Other -See Comment, Start date: 08/15/14 18:34:00, Duration: 30 day, Stop date: 09/14/14 18:33:00, HR >/=100 OR SBP >/=175Notes: (Same as: Lopressor) Push over 2 minutes Clonidine 0.1 mg, 1 tab, No Longer Hydrochloride 0.1 Route: PO, Active 2014 [facility] Oral Tablet Drug form: TAB, TID, Dosing Weight 96.96, kg, PRN Other -See Comment, Start date: 08/15/14 18:34:00, Duration: 30 day, Stop date: 09/14/14 18:33:00, sbp >/=180Notes: (Same As: Catapres) Hydralazine 10 mg, 0.5 mL, No Longer Route: IVP, Active 2014 [facility] Drug form: INJ, Q6H, Dosing Weight 96.96, kg, PRN Other -See Comment, Start date: 08/15/14 18:34:00, Duration: 30 day, Stop date: 09/14/14 18:33:00, SBP>/=160 OR DBP>/=90Notes: (Same as: Apresoline) Push over 5 minutes Ativan 1 mg, 0.5 mL, No Longer Route: IVP, Active 2014 [facility] Drug form: INJ, TID, Dosing Weight 96.96, kg, PRN Anxiety, Priority: STAT, Start date: 08/15/14 16:16:00, Duration: 30 day, Stop date: 09/14/14 16:15:00Notes: (Same as: Ativan) Morphine 2 mg, 1 mL, No Longer Route: IVP, Active 2014 [facility] Drug form: INJ, Q6H, Dosing Weight 96.96, kg, PRN Pain Score 4-6, Start date: 08/15/14 16:15:00, Duration: 30 day, Stop date: 09/14/14 16:14:00Notes: (Same as:MORPhine Sulfate) Ativan 0.25 mg, 0.13 Inactive mL, Route: IV, 2014 [facility] Drug form: INJ, ONCE, Dosing Weight 96.96, kg, Start date: 08/15/14 14:15:00, Stop date: 08/15/14 14:15:00Notes: (Same as: Ativan) Aspirin 81 MG 81 mg, 1 tab, No Longer Enteric Coated Route: PO, Active 2014 [facility] Tablet Drug form: ECTAB, Daily, Dosing Weight 96.96, kg, Start date: 08/15/14 9:00:00, Duration: 30 day, Stop date: 09/13/14 9:00:00Notes: Do not crush or chew. (Same As: Ecotrin) Simvastatin 40 mg, 2 tab, No Longer Route: PO, Active 2014 [facility] Drug form: TAB, Bedtime, Dosing Weight 96.96, kg, Start date: 08/14/14 21:00:00, Duration: 30 day, Stop date: 09/12/14 21:00:00Notes: (Same as: Zocor) Coreg 12.5 mg, 1 No Longer tab, Route: Active 2014 [facility] PO, Drug form: TAB, Q12H, Dosing Weight 96.96, kg, Start date: 08/14/14 21:00:00, Duration: 30 day, Stop date: 09/13/14 9:00:00Notes: Give with food. (Same As: Coreg) Acetaminophen 650 mg, 1 No Longer supp, Route: Active 2014 [place], Drug form: SUPP, Q6H, Dosing Weight 96.96, kg, PRN For Temp > 100.4 F, Start date: 08/14/14 19:53:00, Duration: 30 day, Stop date: 09/13/14 19:52:00Notes: Max acetaminophen= 4000 mg/day (4 gm/day). (Same as: Tylenol) tramadol 50 mg, 1 tab, No Longer hydrochloride 50 Route: PO, Active 2014 [facility] Oral Tablet Drug form: TAB, Q4H, Dosing Weight 96.96, kg, PRN Pain Score 1-3, Start date: 08/14/14 19:53:00, Duration: 30 day, Stop date: 09/13/14 19:52:00Notes: Not to exceed 400mg/day. (Same As: Ultram) Insulin, Aspart, 1 unit, 0.01 No Longer Human mL, Route: Active 2014 [place] SUB-Q, Drug form: SOLN, TID-Before Meals, Dosing Weight 96.96, kg, PRN Blood Glucose Results, Start date: 08/14/14 19:28:00, Duration: 30 day, Stop date: 09/13/14 19:27:00Notes: Roll in palms of hands gently; Do not shake vigorously. (Same as: NovoLOG) "single patient use only" Stable for 28 days at room temperature. Expires in days from Date Dextrose 50% 12.5 gm, 25 No Longer Syringe mL, Route: Active 2014 [place] IVP, Drug Form: INJ, Dosing Weight 96.96, kg, PRN, PRN Blood Glucose Results, Start date: 08/14/14 19:28:00, Duration: 30 day, Stop date: 09/13/14 19:27:00 Glucagon 1 mg, Route: No Longer IM, Drug form: Active 2014 [place] PDR/INJ, PRN, Dosing Weight 96.96, kg, PRN Blood Glucose Results, Start date: 08/14/14 19:28:00, Duration: 30 day, Stop date: 09/13/14 19:27:00 Magnesium Oxide 400 mg, 1 tab, No Longer Route: PO, Active 2014 [facility] Drug form: TAB, BID, Dosing Weight 113.636, kg, Start date: 08/14/14 11:30:00, Duration: 30 day, Stop date: 09/13/14 9:00:00Notes: (Same as: Mag-Ox 400) Magnesium oxide [id number] elemental magnesium Dose=____mg magnesium oxide (___mg elemental magnesium) Lisinopril 10 mg, 1 tab, No Longer Route: PO, Active 2014 [facility] Drug form: TAB, BID, Dosing Weight 113.636, kg, Start date: 08/14/14 11:30:00, Duration: 30 day, Stop date: 09/13/14 9:00:00Notes: (Same as: Prinivil, Zestril) carvedilol 25 mg, 1 tab, No Longer Route: PO, Active 2014 [facility] Drug form: TAB, BID, Dosing Weight 113.636, kg, Start date: 08/14/14 11:30:00, Duration: 30 day, Stop date: 09/13/14 9:00:00Notes: Give with food. (Same As: Coreg) Hydralazine 10 mg, 0.5 mL, No Longer Route: IVP, Active 2014 [facility] Drug form: INJ, Q2H, Dosing Weight 113.636, kg, PRN Hypertension, Priority: STAT, Start date: 08/14/14 11:04:00, Stop date: 09/13/14 11:03:00, For SBP above 180 and DBP above 110Notes: (Same as: Apresoline) Push over 5 minutes Tamiflu 75 mg, 1 cap, No Longer Route: PO, Active 2014 [facility] Drug form: CAP, [id number], Dosing Weight 113.636, kg, CrCl >=30 ml/hr, Start date: 08/14/14 11:00:00, Duration: 5 day, Stop date: 08/18/14 23:00:00Notes: Take with food. Same as: Tamiflu) Enoxaparin 40 mg, 0.4 mL, No Longer Route: SUB-Q, Active 2014 [facility] Drug form: INJ, [id number], Dosing Weight 113.636, kg, Start date: 08/14/14 11:00:00, Duration: 30 day, Stop date: 09/12/14 11:00:00Notes: (Same as: Lovenox) Albuterol 0.833 3 mL, Route: No Longer MG/ML / NEB, Drug Active 2014 [facility] Ipratropium Form: SOLN, [place] 0.167 Dosing Weight MG/ML Inhalant 113.636, kg, Solution PRN, PRN Respiratory Protocol, Start date: 08/14/14 10:53:00, Duration: 30 day, Stop date: 09/13/14 10:52:00Notes: (Same as: Duoneb) Ondansetron 4 mg, 2 mL, No Longer Route: IVP, Active 2014 [facility] Drug form: INJ, Q6H, Dosing Weight 113.636, kg, PRN Nausea & Vomiting, Start date: 08/14/14 10:53:00, Duration: 30 day, Stop date: 09/13/14 10:52:00Notes: (Same as: Zofran) Acetaminophen 650 mg, 2 tab, No Longer Route: PO, Active 2014 [facility] Drug form: TAB, Q4H, Dosing Weight 113.636, kg, PRN Pain Score 1-3, For fever > 100.4. Not to exceed 4 grams in 24 hours, Start date: 08/14/14 10:53:00, Duration: 30 day, Stop date: 09/13/14 10:52:00Notes: Do not exceed 4 gm/day. (Same as: Tylenol) Guaifenesin 200 mg, 10 mL, No Longer Route: PO, Active 2014 [facility] Drug form: SYRP, Q4H, Dosing Weight 113.636, kg, PRN Cough, Start date: 08/14/14 10:53:00, Duration: 30 day, Stop date: 09/13/14 10:52:00Notes: (Same as: Robitussin) Lasix 40 mg, 4 mL, Inactive Route: IVP, 2014 [facility] Drug form: INJ, ONCE, Dosing Weight 113.636, kg, Priority: STAT, Start date: 08/14/14 8:27:00, Stop date: 08/14/14 8:27:00Notes: (Same as: Lasix) Zithromax 500 mg, 250 Inactive mL, Route: 2014 [facility] IVPB, Drug form: PDR/INJ, ONCE, Dosing Weight 113.636, kg, Priority: STAT, Start date: 08/14/14 8:27:00, Stop date: 08/14/14 8:27:00Notes: Same as: Zithromax Rocephin 1 gm, Route: Inactive IVPB, ONCE, 2014 [facility] Dosing Weight 113.636, kg, Priority: STAT, Start date: 08/14/14 8:27:00, Stop date: 08/14/14 8:27:00Notes: (Same As: Rocephin). Use with 100ml NS mini-bag PLUS and infuse over 30 min Labetalol 10 mg, 2 mL, Inactive Route: IVP, 2014 [facility] Drug form: INJ, ONCE, Dosing Weight 113.636, kg, Priority: STAT, Start date: 08/14/14 7:45:00, Stop date: 08/14/14 7:45:00Notes: (Same as: Normodyne, Trandate) Push over 2 minutes Give bolus over 2-3 minutes. 24 HR 1 patch, Inactive Nitroglycerin 0.4 Route: 2014 [facility]/HR Transdermal Transdermal, Patch Drug Form: ERFILM, Dosing Weight 113.636, kg, ONCE, Start date: 08/14/14 7:45:00, Stop date: 08/14/14 7:45:00Notes: Apply only once for up to 12 hours in a 24 hour period (12 hours on and 12 hours off.) (Same as:NitroKaylin Nath,Maryana rm Nitro) For topical use only. "Remove old patch before application of new patch" Albuterol 1 MG/ML 5 mg, 1 mL, Inactive Inhalant Solution Route: 2014 [facility] INHALATION, Drug form: SOLN, ONCE, Dosing Weight 113.636, kg, Start date: 08/14/14 7:45:00, Stop date: 08/14/14 7:45:00Notes: SEE RT DOCUMENTATION Saline Flush 0.9% 10 mL, Route: No Longer IVP, Drug Active 2014 [facility] Form: INJ, Dosing Weight 113.636, kg, PRN, PRN Line Flush, Start date: 08/14/14 7:28:00, Duration: 1 day, Stop date: 08/15/14 7:27:00Notes: (Same as: BD Posiflush) Sodium Chloride 1,000 mL, 1000 Inactive 0.154 MEQ/ML ml/hr, Infuse 2014 [facility] Injectable Over: 1 hr, Solution Route: IV, 1,000, Drug form: INJ, ONCE, Priority: STAT, Dosing Weight 113.636 kg, Start date: 08/14/14 7:28:00, Duration: 1 doses or times, Stop date: 08/14/14 7:28:00 Ibuprofen 400 mg, 1 tab, Inactive Route: PO, 2014 [facility] Drug form: TAB, ONCE, Dosing Weight 113.636, kg, Start date: 08/14/14 7:28:00, Stop date: 08/14/14 7:28:00Notes: (Same as: Motrin) "Do Not Crush" Give with food. Acetaminophen 650 mg, 2 tab, Inactive Route: PO, 2014 [facility] Drug form: TAB, ONCE, Dosing Weight 113.636, kg, Start date: 08/14/14 7:28:00, Stop date: 08/14/14 7:28:00Notes: Do not exceed 4 gm/day. (Same as: Tylenol) Acetaminophen 325 1 tab, PO, Active [place] [facility] / Hydrocodone Q4H, Pain 2014 [facility] Bitartrate 10 MG Score 4-6, # Center Oral Tablet 42 tab, 0 Refill(s), other Hydrochlorothiazid 25 mg=1 tab, Active [place] e 25 MG Oral PO, Daily, # 2014 [facility] Tablet 14 tab, 0 Center Refill(s) lisinopril 10 mg 10 mg=1 tab, Active [place] oral tablet PO, Daily, # 2013 [facility] 14 tab, 0 Center Refill(s) tramadol 50 mg=1 tab, Active [place] hydrochloride 50 PO, Q6H, # 30 2013 [facility] Oral Tablet tab, 0 Center Refill(s) Sulfamethoxazole 1 tab, PO, Active [place] 800 MG / [id number], # 14 2013 [facility] Trimethoprim 160 tab, 0 [facility] MG Oral Tablet Refill(s) Docusate Sodium 50 1 tab, PO, Active [place] MG / sennosides, BID, # 30 tab, 2013 [facility] 8.6 MG Oral 0 Refill(s) Center Tablet carvedilol 25 mg 25 mg=1 tab, Active [place] oral tablet PO, Q12H, # 30 2013 [facility] tab, 0 Center Refill(s) Aspirin 81 MG 81 mg=1 tab, Active Enteric Coated PO, Daily, # 2013 [facility] Tablet 30 tab, 0 Center Refill(s) Amoxicillin 875 MG 1 tab, PO, Active [place] / Clavulanate 125 Q12H, # 14 2013 [facility] Oral Tablet tab, 0 Center [Augmentin 875-mg] Refill(s) carvedilol 25 mg, 1 tab, No Longer [place] Route: PO, Active 2013 [facility] Drug form: Center TAB, Q12H, Dosing Weight 97.727, kg, Start date: 05/12/14 21:00:00, Duration: 30 day, Stop date: 06/11/14 9:00:00Notes: Give with food. (Same As: Coreg) Docusate Sodium 50 1 tab, Route: No Longer [place] MG / sennosides, PO, Drug Form: Active 2013 [facility] 8.6 MG Oral TAB, Dosing Center Tablet Weight 97.727, kg, BID, Start date: 05/12/14 9:00:00, Duration: 30 day, Stop date: 06/10/14 17:00:00Notes: (Same as Senokot-S) Equiv. to Lorie-Colace. Fluzone 0.5 mL, Route: No Longer [place] Quadrivalent IM, Drug Form: Active 2013 [facility] [id number] SUSP, GALE, Waldemar Start date: 05/12/14 9:00:00, Duration: 1 doses or times, Stop date: 05/13/14 0:00:00Notes: (Same as: Fluzone Quadrivalent) Lisinopril 10 mg, 1 tab, No Longer [place] Route: PO, Active 2013 [facility] Drug form: Center TAB, Daily, Dosing Weight 97.727, kg, Start date: 05/12/14 9:00:00, Duration: 30 day, Stop date: 06/10/14 9:00:00Notes: (Same as: Prinivil, Zestril) Hydralazine 25 mg, 1 tab, No Longer [place] Hydrochloride 25 Route: PO, Active 2013 [facility] Oral Tablet Drug form: Center TAB, Q6H, Dosing Weight 97.727, kg, PRN See Nurse's Notes, Start date: 05/12/14 7:30:00, Duration: 30 day, Stop date: 06/11/14 7:29:00, SBP>170Notes: (Same as: Apresoline) May interfere w/enteral feedings Take With Food. tramadol 50 mg, 1 tab, No Longer [place] hydrochloride 50 Route: PO, Active 2013 [facility] Oral Tablet Drug form: Center TAB, Q6H, Dosing Weight 97.727, kg, Start date: 05/12/14 0:00:00, Duration: 30 day, Stop date: 06/10/14 18:00:00Notes: Not to exceed 400mg/day. (Same As: Ultram) carvedilol 12.5 mg, 1 No Longer [place] tab, Route: Active 2013 [facility] PO, Drug form: Center TAB, Q12H, Dosing Weight 97.727, kg, Start date: 05/11/14 21:00:00, Duration: 30 day, Stop date: 06/10/14 9:00:00Notes: Give with food. (Same As: Coreg) Amoxicillin 875 MG 1 tab, Route: No Longer [place] / Clavulanate 125 PO, Drug Form: Active 2013 [facility] Oral Tablet TAB, Dosing Center [Augmentin 875-mg] Weight 97.727, kg, Q12H, Start date: 05/11/14 21:00:00, Duration: 30 day, Stop date: 06/10/14 9:00:00Notes: With food. (Same as: Augmentin 875) Bactrim DS 1 tab, Route: No Longer [place] PO, Drug Form: Active 2013 [facility] TAB, Dosing Center Weight 97.727, kg, [id number], Start date: 05/11/14 19:00:00, Duration: 30 day, Stop date: 06/10/14 7:00:00Notes: One DS tablet=trimeth oprim 160mg + sulfamethoxazo le 800 mg Dose based on trimethoprim component On empty stomach with a glass of water. 1 hr before meals (Same As: Bactrim DS, Septra DS) heparin, porcine 5,000 unit, 1 No Longer [place] mL, Route: Active 2013 [facility] SUB-Q, Drug Center form: INJ, Q8H, Dosing Weight 97.727, kg, Start date: 05/11/14 16:00:00, Duration: 30 day, Stop date: 06/10/14 8:00:00Notes: porcine heparin Hydrochlorothiazid 25 mg, 1 tab, No Longer [place] e Route: PO, Active 2013 [facility] Drug form: Center TAB, Daily, Dosing Weight 97.727, kg, Priority: NOW, Start date: 05/11/14 13:47:00, Duration: 30 day, Stop date: 06/10/14 9:00:00Notes: (Same as: Hydrodiuril) With food. Lisinopril 5 mg, 1 tab, Inactive [place] Route: PO, 2013 [facility] Drug form: Center TAB, ONCE, Dosing Weight 97.727, kg, Start date: 05/11/14 13:46:00, Stop date: 05/11/14 13:46:00Notes: (Same as: Prinivil, Zestril) Coreg 6.25 mg, 1 Inactive [place] tab, Route: 2013 [facility] PO, Drug form: Center TAB, ONCE, Dosing Weight 97.727, kg, Start date: 05/11/14 13:46:00, Stop date: 05/11/14 13:46:00Notes: Give with food. (Same As: Coreg) Coreg 6.25 mg, 1 Inactive [facility] tab, Route: 2014 [facility] PO, Drug form: [place] TAB, ONCE, Dosing Weight 97.727, kg, Start date: 05/11/14 11:24:00, Stop date: 05/11/14 11:24:00Notes: Give with food. (Same As: Coreg) Lisinopril 5 mg, 1 tab, Inactive [facility] Route: PO, 2013 [facility] Drug form: [place] TAB, ONCE, Dosing Weight 97.727, kg, Start date: 05/11/14 11:24:00, Stop date: 05/11/14 11:24:00Notes: (Same as: Prinivil, Zestril) vancomycin + 1.75 gm, Inactive [facility] Sodium Chloride Route: IVPB, 2013 [facility] 0.9% IV 500 mL [id number], Start Center date: 05/11/14 10:00:00, Duration: 30 day, Stop date: 06/09/14 22:00:00Notes: (Same As: Vancocin) Infusion rate 2001 mg: infuse over 2.5 hours Vancomycin FOR IV SET ONLY 24 HR 1 patch, Inactive [facility] Nitroglycerin 0.2 Route: [facility], 2013 [facility] MG/HR Transdermal Drug Form: [place] Patch ERFILM, Dosing Weight 97.727, kg, Daily, Start date: 05/11/14 9:00:00, Duration: 1 day, Stop date: 05/11/14 9:00:00Notes: Apply only once for up to 12 hours in a 24 hour period (12 hours on and 12 hours off.) (Same as:Kaylin James Transde [place]) For topical use only. "Remove old patch before application of new patch" atorvastatin 80 mg, 2 tab, Inactive [facility] Route: PO, 2013 [facility] Drug form: [place] TAB, ONCE, Dosing Weight 97.727, kg, Priority: STAT, Start date: 05/11/14 6:18:00, Stop date: 05/11/14 6:18:00Notes: (Same as: Lipitor) Metoprolol 5 mg, 5 mL, No Longer [place] Route: IVP, Active 2013 [facility] Drug form: Center INJ, Q2MIN, Dosing Weight 97.727, kg, PRN Other -See Comment, Start date: 05/11/14 6:18:00, Duration: 3 doses or times, Stop date: Limited # of timesNotes: (Same as: Lopressor) Push over 2 minutes aspirin 325 mg, 1 tab, No Longer [place] Route: PO, Active 2013 [facility] Drug form: Center TAB, Daily, Dosing Weight 97.727, kg, Priority: NOW, Start date: 05/11/14 6:17:00, Duration: 30 day, Stop date: 06/09/14 9:00:00Notes: Take with food. Labetalol 20 mg, Route: Inactive [place] IVP, Drug 2013 [facility] form: INJ, Center ONCE, Dosing Weight 97.727, kg, Priority: STAT, Start date: 05/11/14 5:52:00, Stop date: 05/11/14 5:52:00 Hydralazine 10 mg, 0.5 mL, No Longer [place] Route: IVP, Active 2013 [facility] Drug form: Center INJ, Q4H, Dosing Weight 97.727, kg, PRN Elevated BP, Start date: 05/11/14 4:59:00, Duration: 30 day, Stop date: 06/10/14 4:58:00, SBP>160Notes: (Same as: Apresoline) Push over 5 minutes Hydralazine 10 mg, 0.5 mL, Inactive [place] Route: IVP, 2013 [facility] Drug form: Center INJ, Q20Min, Dosing Weight 97.727, kg, PRN Elevated BP, Start date: 05/10/14 19:38:00, Duration: 2 doses or times, Stop date: 05/11/14 0:00:00Notes: (Same as: Apresoline) Push over 5 minutes Labetalol 10 mg, 2 mL, Inactive [place] Route: IVP, 2013 [facility] Drug form: Center INJ, Q5Min, Dosing Weight 97.727, kg, PRN Elevated BP, Start date: 05/10/14 17:35:00, Duration: 5 doses or times, Stop date: 05/11/14 0:00:00 Fentanyl 25 microgram, Inactive [place] 0.5 mL, Route: 2013 [facility] IVP, Drug Center form: INJ, Q5Min, Dosing Weight 97.727, kg, PRN Pain Score 4-6, Start date: 05/10/14 17:35:00, Duration: 4 doses or times, Stop date: 05/11/14 0:00:00Notes: (Same as: Sublimaze) Preservative free. Hydromorphone 0.5 mg, 0.25 Inactive [place] mL, Route: 2013 [facility] IVP, Drug Center form: INJ, Q5Min, Dosing Weight 97.727, kg, PRN Pain Score 7-10, Start date: 05/10/14 17:35:00, Duration: 4 doses or times, Stop date: 05/11/14 0:00:00Notes: Same as: Dilaudid Promethazine 6.25 mg, 0.25 Inactive [facility] mL, Route: 2013 [facility] IVPB, Drug Center form: INJ, ONCE, Dosing Weight 97.727, kg, PRN Nausea & Vomiting, Start date: 05/10/14 17:35:00Notes: Do not give IV push. (Same as: Phenergan) Ondansetron 4 mg, 2 mL, Inactive [place] Route: IVP, 2013 [facility] Drug form: Center INJ, ONCE, Dosing Weight 97.727, kg, PRN Nausea & Vomiting, Start date: 05/10/14 17:35:00Notes: (Same as: Zofran) Lisinopril 5 mg, 1 tab, No Longer [place] Route: PO, Active 2013 [facility] Drug form: Center TAB, Daily, Dosing Weight 97.727, kg, Start date: 05/10/14 0:00:00, Duration: 30 day, Stop date: 06/08/14 9:00:00Notes: (Same as: Prinivil, Zestril) vancomycin + 1.25 gm, No Longer [facility] Sodium Chloride Route: IVPB, Active 2013 [facility] 0.9% IV 250 mL [id number], Start Center date: 05/09/14 12:00:00, Duration: 30 day, Stop date: 06/08/14 2:00:00Notes: (Same As: Vancocin) Infusion rate 2001 mg: infuse over 2.5 hours Vancomycin FOR IV SET ONLY vancomycin + 2 gm, Route: Inactive [facility] Sodium Chloride IVPB, ONCE, 2013 [facility] 0.9% IV 500 mL Start date: [place] 05/09/14 10:00:00, Stop date: 05/09/14 10:00:00Notes: (Same As: Vancocin) Infusion rate 2001 mg: infuse over 2.5 hours Vancomycin FOR IV SET ONLY aspirin 81 mg, 1 tab, No Longer [facility] Route: PO, Active 2013 Medical Drug form: [place] ECTAB, Daily, Dosing Weight 97.727, kg, Start date: 05/09/14 9:00:00, Duration: 30 day, Stop date: 06/07/14 9:00:00Notes: Do not crush or chew. (Same As: Ecotrin) carvedilol 6.25 mg, 1 No Longer [facility] tab, Route: Active 2013 Medical PO, Drug form: [place] TAB, Q12H, Dosing Weight 97.727, kg, Start date: 05/09/14 9:00:00, Duration: 30 day, Stop date: 06/07/14 21:00:00Notes: Give with food. (Same As: Coreg) Influenza Virus 0.5 mL, Route: Inactive [place] Vaccine, IM, Drug Form: 2013 Medical Inactivated SUSP, Daily, [place] [id number] Start date: (H3N2)-like virus 05/09/14 ([id number] 9:00:00, 7 [facility] [id number]) Duration: 1 strain / Influenza doses or Virus Vaccine, times, Stop Inactivated date: 05/09/14 [id number] 9:00:00Notes: , IVR-148 (H1N1) (Same as: strain / Influenza Fluzone Virus Vaccine, Quadrivalent) Inactivated, [id number] ik Docusate 100 mg, 1 cap, No Longer [place] Route: PO, Active 2013 Medical Drug form: [place] CAP, BID, Dosing Weight 97.727, kg, Start date: 05/09/14 9:00:00, Duration: 30 day, Stop date: 06/07/14 17:00:00Notes: (Same as: Colace) Ceftriaxone 1 gm, Route: No Longer [place] IVPB, Drug Active 2013 Medical form: PDR/INJ, Center [id number], Dosing Weight 97.727, kg, Start date: 05/09/14 7:00:00, Duration: 30 day, Stop date: 06/07/14 7:00:00Notes: (Same As: Rocephin). Use with 100ml NS mini-bag PLUS and infuse over 30 min Zofran 4 mg, 2 mL, No Longer [place] Route: IV, Active 2013 Medical Drug form: [place] INJ, Q8H, Dosing Weight 97.727, kg, PRN Nausea, Start date: 05/09/14 6:40:00, Duration: 30 day, Stop date: 06/08/14 6:39:00Notes: (Same as: Zofran) Vancomycin 1 gm, Route: Inactive [place] IV, Drug form: 2013 [facility] INJ, ONCE, [place] Dosing Weight 97.727, kg, Start date: 05/09/14 6:39:00, Stop date: 05/09/14 6:39:00Notes: (Same As: Vancocin) Infusion rate 2001 mg: infuse over 2.5 hours Potassium Chloride 20 mEq, 100 Inactive [place] mL, Route: 2013 Medical IVPB, Drug Center form: INJ, ONCE, Dosing Weight 97.727, kg, Start date: 05/09/14 6:36:00, Stop date: 05/09/14 6:36:00Notes: (Same as: KCL) Infuse no faster than 10 mEq/hr if given peripherally. Insulin, Aspart, 2 unit, 0.02 No Longer [facility] Human mL, Route: Active 2013 Medical SUB-Q, Drug Center form: SOLN, Sliding Scale, Dosing Weight 97.727, kg, PRN Blood Glucose Results, Start date: 05/09/14 6:36:00, Duration: 30 day, Stop date: 06/08/14 5:35:00Notes: Roll in palms of hands gently; Do not shake vigorously. (Same as: NovoLOG) "single patient use only" Stable for 28 days at room temperature. Expires in days from Date Dextrose 50% 25 gm, 50 mL, No Longer [facility] Syringe Route: IVP, Active 2013 Medical Drug Form: [place] INJ, Dosing Weight 97.727, kg, PRN, PRN Blood Glucose Results, Start date: 05/09/14 6:36:00, Duration: 30 day, Stop date: 06/08/14 5:35:00 Glucagon 1 mg, Route: No Longer [facility] IM, Drug form: Active 2013 Medical PDR/INJ, PRN, Center Dosing Weight 97.727, kg, PRN Blood Glucose Results, Start date: 05/09/14 6:36:00, Duration: 30 day, Stop date: 06/08/14 5:35:00 Saline Flush 0.9% 10 ml, Route: No Longer [facility] IVP, Drug Active 2013 Medical Form: INJ, Center Dosing Weight 97.727, kg, PRN, PRN Line Flush, Start date: 05/09/14 6:35:00, Duration: 30 day, Stop date: 06/08/14 5:34:00Notes: (Same as: BD Posiflush) Ondansetron 4 mg, 2 mL, No Longer [facility] Route: IVP, Active 2013 Medical Drug form: [place] INJ, ONCE, Dosing Weight 97.727, kg, PRN Nausea & Vomiting, Start date: 05/09/14 6:35:00Notes: (Same as: Zofran) Acetaminophen 650 mg, 2 tab, No Longer [facility] Route: PO, Active 2013 Medical Drug form: [place] TAB, Q4H, Dosing Weight 97.727, kg, PRN Pain 1-3/Temp > 100.4 F, Start date: 05/09/14 6:35:00, Duration: 30 day, Stop date: 06/08/14 6:34:00Notes: Do not exceed 4 gm/day. (Same as: Tylenol) Acetaminophen 325 1 tab, Route: No Longer [place] MG / Hydrocodone PO, Drug Form: Active 2013 Medical Bitartrate 5 MG TAB, Dosing Center Oral Tablet Weight 97.727, kg, Q4H, PRN Pain Score 1-3, Start date: 05/09/14 6:35:00, Duration: 30 day, Stop date: 06/08/14 6:34:00Notes: (Same as: [place] 325/5) Do not exceed 4gm/day of acetaminophen. Morphine 2 mg, 1 mL, No Longer [place] Route: IVP, Active 2013 Medical Drug form: Center INJ, Q4H, Dosing Weight 97.727, kg, PRN Pain Score 4-6, Start date: 05/09/14 6:35:00, Duration: 30 day, Stop date: 06/08/14 6:34:00Notes: (Same as:MORPhine Sulfate) Acetaminophen 325 1 tab, Route: No Longer [place] MG / Hydrocodone PO, Drug Form: Active 2013 Medical Bitartrate 10 MG TAB, Dosing Center Oral Tablet Weight 97.727, kg, Q4H, PRN Pain Score 4-6, Start date: 05/09/14 6:35:00, Duration: 30 day, Stop date: 06/08/14 6:34:00Notes: Do not exceed 4gm/day of acetaminophen. (Same as: [place] 325/10) Metformin 500 mg=1 tab, Active [place] hydrochloride 500 PO, BID, # 30 2013 Medical MG Oral Tablet tab, 0 Center Refill(s) Dilaudid 1 mg, Route: Inactive [place] IVP, ONCE, 2013 Medical Dosing Weight Center 113.636, kg, Priority: STAT, Start date: 05/09/14 3:14:00, Stop date: 05/09/14 3:14:00 Ceftriaxone 1 gm, Route: Inactive [place] IVPB, Drug 2013 Medical form: PDR/INJ, Center ONCE, Dosing Weight 113.636, kg, Priority: STAT, Start date: 05/09/14 3:08:00, Stop date: 05/09/14 3:08:00Notes: (Same As: Rocephin). Use with 100ml NS mini-bag PLUS and infuse over 30 min Doxycycline 100 mg, 1 tab, Inactive [place] Route: PO, 2013 Medical Drug form: [facility] TAB, ONCE, Dosing Weight 113.636, kg, Start date: 05/09/14 3:06:00, Stop date: 05/09/14 3:06:00Notes: NO MILK/ANTACIDS/ IRON Take 1 hour before or 2 hours after dairy products NS 1,000 mL 1,000 mL, Inactive Rate: bolus, 2013 [facility] Route: IV, Dosing Weight 97.727 kg, Total Volume: 1,000, Start date: 05/09/14 0:12:00, Stop date: 06/07/14 23:11:00, Bolus DoseSpecial Instructions: Bolus Dose Ondansetron 4 mg, 2 mL, No Longer Route: IVP, Active 2013 [facility] Drug form: INJ, ONCE, Dosing Weight 97.727, kg, Priority: STAT, Start date: 05/08/14 23:58:00, Stop date: 05/08/14 23:58:00Notes: (Same as: Zofran) Dilaudid 1 mg, 1 mL, No Longer Route: IV, Active 2013 [facility] Drug form: INJ, ONCE, Dosing Weight 97.727, kg, Priority: STAT, Start date: 05/08/14 23:58:00, Stop date: 05/08/14 23:58:00Notes: Same as: Dilaudid Vancomycin 2,000 mg, 500 No Longer mL, Route: Active 2013 [facility] IVPB, Drug form: SOLN, ONCE, Dosing Weight 97.727, kg, Priority: STAT, Start date: 05/08/14 23:57:00, Stop date: 05/08/14 23:57:00Notes: Same as: Vancocin Infusion rate 2001 mg: infuse over 2.5 hours Saline Flush 0.9% 10 mL, Route: No Longer IVP, Drug Active 2013 [facility] Form: INJ, Dosing Weight 97.727, kg, PRN, PRN Line Flush, Start date: 05/08/14 23:57:00, Duration: 30 day, Stop date: 06/07/14 22:56:00Notes: (Same as: BD Posiflush) Lisinopril 5 mg, 1 tab, No Longer Route: PO, Active 2013 [facility] Drug form: TAB, Daily, Dosing Weight 92.045, kg, Start date: 02/10/14 9:00:00, Duration: 30 day, Stop date: 03/11/14 9:00:00Notes: (Same as: Prinivil, Zestril) Coreg 6.25 mg, 0.5 Inactive tab, Route: 2013 [facility] PO, Drug form: TAB, BID, Dosing Weight 92.045, kg, Start date: 02/09/14 21:00:00, Duration: 30 day, Stop date: 03/11/14 9:00:00Notes: Give with food. (Same As: Coreg) lisinopril 5 mg 5 mg=1 tab, Active oral tablet PO, Daily, # 2013 [place] 30 tab, 0 Refill(s) carvedilol 12.5 mg 6.25 mg=0.5 Active oral tablet tab, PO, BID, 2013 [facility] # 15 tab, 0 Refill(s) Hydrochlorothiazid 25 mg=1 tab, Active e 25 MG Oral PO, Daily, for 2013 [facility] Tablet edema, # 30 tab, 0 Refill(s) Simvastatin 40 mg, 2 tab, No Longer Route: PO, Active 2013 [facility] Drug form: TAB, Bedtime, Dosing Weight 92.045, kg, Start date: 02/08/14 21:00:00, Duration: 30 day, Stop date: 03/09/14 21:00:00Notes: (Same as: Zocor) Coreg 12.5 mg, 1 No Longer tab, Route: Active 2013 [facility] PO, Drug form: TAB, BID, Dosing Weight 92.045, kg, Start date: 02/08/14 11:00:00, Duration: 30 day, Stop date: 03/10/14 9:00:00Notes: Give with food. (Same As: Coreg) Hydrochlorothiazid 1 tab, PO, No Longer e 12.5 MG / Bedtime, 0 Active 2013 [facility] Lisinopril 20 MG Refill(s) Oral Tablet carvedilol 12.5 MG 12.5 mg=1 tab, No Longer Oral Tablet PO, BID, # 60 Active 2013 [facility] [Coreg] tab, 0 Refill(s) Metformin 500 mg, PO, No Longer [place], 0 Active 2013 [facility] Refill(s) Simvastatin 40 mg=1 tab, Active PO, Bedtime, # 2013 [place] 30 tab, 0 Refill(s) NS 1,000 mL 1,000 mL, No Longer Rate: 40 2013 [facility] ml/hr, Infuse over: 25 hr, Route: IV, Dosing Weight 92.045 kg, Total Volume: 1,000, Start date: 02/07/14 22:24:00, Duration: 30 day, Stop date: 03/09/14 22:23:00 Morphine 2 mg, Route: Inactive IVP, ONCE, 2013 Dosing Weight 96.364, kg, Start date: 02/07/14 13:00:00, Stop date: 02/07/14 13:00:00 Acetaminophen 650 mg, 20.3 No Longer mL, Route: PO, Active 2013 [facility] Drug form: LIQ, Q4H, Dosing Weight 96.364, kg, PRN Pain 1-3/Temp > 100.4 F, Start date: 02/07/14 12:54:00, Duration: 30 day, Stop date: 03/09/14 12:53:00Notes: Max acetaminophen= 4000mg/day (4 gm/day). (Same as: Tylenol) Ondansetron 4 mg, 2 mL, No Longer Route: IVP, Active 2013 Drug form: INJ, Q8H, Dosing Weight 96.364, kg, PRN Nausea & Vomiting, Start date: 02/07/14 12:54:00, Duration: 30 day, Stop date: 03/09/14 12:53:00Notes: (Same as: Zofran) Docusate 100 mg, 1 cap, No Longer Route: PO, Active 2013 [facility] Drug form: CAP, BID, Dosing Weight 96.364, kg, PRN Constipation, Start date: 02/07/14 12:54:00, Duration: 30 day, Stop date: 03/09/14 12:53:00Notes: (Same as: Colace) (Do Not Crush) Omnipaque 240 50 mL, Route: Inactive PO, Dosing 2013 [facility] Weight 96.364, kg, ONCE, Start date: 02/07/14 9:41:00, Stop date: 02/07/14 9:41:00 Sodium Chloride 1,000 mL, 999 Inactive 0.154 MEQ/ML ml/hr, Infuse 2013 [facility] Injectable Over: 1 hr, Solution Route: IV, ONCE, Priority: STAT, Dosing Weight 96.364 kg, Start date: 02/07/14 9:27:00, Duration: 1 doses or times, Stop date: 02/07/14 9:27:00 Sodium Chloride 500 mL, 500 Inactive 0.154 MEQ/ML ml/hr, Infuse 2013 [facility] Injectable Over: 1 hr, Solution Route: IV, ONCE, Priority: STAT, Dosing Weight 96.364 kg, Start date: 02/07/14 7:37:00, Duration: 1 doses or times, Stop date: 02/07/14 7:37:00 Morphine 6 mg, Route: Inactive IVP, Drug 2013 [facility] form: INJ, ONCE, Dosing Weight 96.364, kg, Priority: STAT, Start date: 02/07/14 7:33:00, Stop date: 02/07/14 7:33:00 Zofran 8 mg, Route: Inactive IVP, Drug 2013 [facility] form: INJ, ONCE, Dosing Weight 96.364, kg, Priority: STAT, Start date: 02/07/14 7:33:00, Stop date: 02/07/14 7:33:00 Azithromycin 500 500 mg=1 tab, Active [place] Oral Tablet PO, Daily, # 7 2013 [facility] [Zithromax] tab, 0 Refill(s) benzonatate 100 MG 100 mg=1 cap, Active Oral Capsule PO, TID, # 21 2013 [facility] [Tessalon Perles] cap, 0 Refill(s) carvedilol 12.5 mg 12.5 mg=1 tab, Active [place] oral tablet PO, Q12H, # 60 2012 [facility] tab, 0 Refill(s) Tessalon 200 mg 200 mg=1 cap, Active [place] oral capsule PO, TID, # 30 2012 [facility] cap, 0 Refill(s) albuterol 90 1 puff, Active [place] mcg/inh inhalation INHALATION, 2012 [facility] aerosol QID, wheezing, # 1 ea, 0 Refill(s) aspirin 81 mg 81 mg=1 tab, Active [place] tablet, enteric PO, Daily, # 2012 [facility] coated 30 tab, 0 Refill(s) cloNIDine 0.1 mg 0.1 mg=1 tab, Active [place] oral tablet PO, TID, 2013 [facility] Elevated BP | sbp >/=160, # 60 tab, 0 Refill(s) simvastatin 20 mg 40 mg=2 tab, Active [place] oral tablet PO, Bedtime, # 2012 [place] 30 tab, 0 Refill(s) lisinopril 20 mg 20 mg=1 tab, Active [place] oral tablet PO, Q12H, HOLD 2012 [facility] IF SBP HOLD IF SBP furosemide 40 mg 40 mg=1 tab, Active [place] oral tablet PO, Daily, # 2012 [place] 30 tab, 0 Refill(s) Levaquin 750 mg 750 mg=1 tab, Active [place] oral tablet PO, Q24H, # 7 2012 [facility] tab, 0 Refill(s) Lasix 40 mg, 1 tab, Inactive [place] Route: PO, 2012 [facility] Drug form: TAB, Daily, Dosing Weight 93.3, kg, Start date: 07/21/13 9:00:00, Duration: 30 day, Stop date: 08/19/13 9:00:00(Same as: Lasix) May cause GI upset. Give with food or milk. hydrALAZINE 10 mg, 0.5 mL, No Longer [place] Route: IVP, Active 2012 Drug form: INJ, Q6H, Dosing Weight 97.727, kg, PRN Hypertension, Start date: 07/20/13 14:02:00, Duration: 30 day, Stop date: 08/19/13 14:01:00, SBP>/=150 OR DBP>/=90(Same as: Apresoline) Push over 5 minutes aspirin 325 mg 325 mg, 1 tab, No Longer [place] tablet, enteric Route: PO, 2012 [facility] coated Drug form: ECTAB, Daily, Dosing Weight 93.3, kg, Start date: 07/20/13 9:00:00, Duration: 30 day, Stop date: 08/18/13 9:00:00(Do Not Crush) Do not crush or chew. Zocor 40 mg, 2 tab, No Longer [place] Route: PO, Active 2012 [facility] Drug form: TAB, Bedtime, Dosing Weight 93.3, kg, Start date: 07/19/13 21:00:00, Duration: 30 day, Stop date: 08/17/13 21:00:00(Same as: Zocor) lisinopril 20 mg, 1 tab, No Longer [place] Route: PO, 2012 [facility] Drug form: TAB, Q12H, Dosing Weight 97.727, kg, Priority: STAT, Start date: 07/19/13 20:50:00, Duration: 30 day, Stop date: 08/18/13 9:00:00(Same as: Prinivil, Zestril) magnesium sulfate 2 gm, 50 mL, No Longer [place] Route: IVPB, Active 2012 [facility] Drug form: INJ, PRN, Dosing Weight 93.3, kg, PRN Abnormal Lab Result, Start date: 07/19/13 10:51:00, Duration: 30 day, Stop date: 08/18/13 10:50:00, FOR ICU USE ONLYFOR ICU USE ONLY potassium 45 mmol, 15 No Longer [place] phosphate + Sodium mL, Route: Active 2012 [place] Chloride 0.9% IV IVPB, Drug 250 mL form: INJ, PRN, Dosing Weight 93.3, kg, PRN Abnormal Lab Result, Start date: 07/19/13 10:51:00, Duration: 30 day, Stop date: 08/18/13 10:50:00, FOR ICU USE ONLYFOR ICU USE ONLY(Same as: K Phosphate.) 1 mMol phoshate has 1.47 mEq potassium Infuse over 4 hours calcium gluconate 1 gm, 50 mL, No Longer [place] Route: IVPB, Active 2012 [facility] Drug form: INJ, PRN, Dosing Weight 93.3, kg, PRN Abnormal Lab Result, Start date: 07/19/13 10:51:00, Duration: 30 day, Stop date: 08/18/13 10:50:00, FOR ICU USE ONLYFOR ICU USE ONLY sodium 45 mmol, 45 No Longer [place] glycerophosphate + mL, Route: 2012 [facility] Sodium Chloride IVPB, Drug 0.9% IV 250 mL form: INJ, PRN, Dosing Weight 93.3, kg, PRN Abnormal Lab Result, Start date: 07/19/13 10:51:00, Duration: 30 day, Stop date: 08/18/13 10:50:00, FOR ICU USE ONLYFOR ICU USE ONLY potassium chloride 20 mEq, 1 tab, No Longer [place] Route: PO, 2012 [facility] Drug form: ERTAB, PRN, Dosing Weight 93.3, kg, PRN Abnormal Lab Result, Start date: 07/19/13 10:51:00, Duration: 30 day, Stop date: 08/18/13 10:50:00, FOR ICU USE ONLYFOR ICU USE ONLY(Same as: K-Dur 20) "Do Not Crush" With food and full glass of water Lasix 40 mg, 4 mL, No Longer [place] Route: IVP, 2012 [facility] Drug form: INJ, Daily, Dosing Weight 97.727, kg, Priority: Routine, Start date: 07/19/13 9:00:00, Duration: 30 day, Stop date: 08/17/13 9:00:00(Same as: Lasix) folic acid 1 mg, 1 tab, No Longer [place] Route: PO, 2012 [facility] Drug form: TAB, Daily, Dosing Weight 97.727, kg, Start date: 07/19/13 9:00:00, Duration: 30 day, Stop date: 08/17/13 9:00:00(Same as: Folvite) multivitamin 1 tab, Route: No Longer [place] PO, Drug Form: Active 2012 [facility] TAB, Dosing Weight 97.727, kg, Daily, Start date: 07/19/13 9:00:00, Duration: 30 day, Stop date: 08/17/13 9:00:00 thiamine 100 mg, 1 tab, No Longer [place] Route: PO, Active 2012 [facility] Drug form: TAB, Daily, Dosing Weight 97.727, kg, Start date: 07/19/13 9:00:00, Duration: 30 day, Stop date: 08/17/13 9:00:00(Same As: Vitamin B1) influenza virus 0.5 mL, Route: Inactive [place] vaccine, IM, Drug Form: 2012 inactivated SUSP, Daily, Start date: 07/19/13 9:00:00, Duration: 1 doses or times, Stop date: 07/19/13 9:00:00(Same as: Fluzone) multivitamin with 1 tab, Route: No Longer minerals PO, Drug Form: Active 2012 [facility] TAB, Daily, Start date: 07/19/13 9:00:00, Duration: 30 day, Stop date: 08/17/13 9:00:00Give with food. (Same As: Stress 600 with Zinc) vancomycin 1.25 gm, 250 No Longer [place] mL, Route: 2012 [facility] IVPB, Drug form: INJ, [id number], Start date: 07/19/13 6:00:00, Stop date: 08/18/13 2:00:00Same as: Vancocin-NS (premixed) [place] 10/325 oral 1 tab, Route: No Longer [place] tablet PO, Drug Form: Active 2012 [facility] TAB, Dosing Weight 97.727, kg, Q6H, Start date: 07/19/13 0:00:00, Duration: 30 day, Stop date: 08/17/13 18:00:00Do not exceed 4gm/day of acetaminophen. (Same as: [place] 325/10) albuterol-ipratrop 3 mL, Route: No Longer [place] ium 2.5-0.5 mg NEB, Drug Active 2012 [facility] inhalation Form: SOLN, solution Dosing Weight 97.727, kg, RQ4H, Start date: 07/18/13 23:00:00, Duration: 30 day, Stop date: 08/17/13 19:00:00(Same as: Duoneb) Tessalon Perles 200 mg, 2 cap, No Longer [place] Route: PO, Active 2012 [facility] Drug form: CAP, Q8H-06, Dosing Weight 97.727, kg, Start date: 07/18/13 22:00:00, Duration: 30 day, Stop date: 08/17/13 14:00:00(Same As: Tessalon Perles) "Do Not Crush" lisinopril 10 mg, 1 tab, No Longer [place] Route: PO, Active 2012 [facility] Drug form: TAB, Q12H, Dosing Weight 97.727, kg, Start date: 07/18/13 21:00:00, Duration: 30 day, Stop date: 08/17/13 9:00:00(Same as: Prinivil, Zestril) Coreg 12.5 mg, 1 No Longer [place] tab, Route: Active 2012 [facility] PO, Drug form: TAB, Q12H, Dosing Weight 97.727, kg, Start date: 07/18/13 21:00:00, Stop date: 08/17/13 9:00:00Give with food. (Same As: Coreg) Vancomycin 1 gm, Route: Inactive [facility] Dosing IV, Dosing 2012 [facility] Weight 97.727, kg, Q12H, Start date: 07/18/13 21:00:00, Duration: 30 day, Stop date: 08/17/13 9:00:00 Nicoderm C-Q 21 mg, 1 No Longer [place] patch, Route: Active 2012 [facility] TOP, Drug form: ERFILM, Daily, Dosing Weight 97.727, kg, Start date: 07/18/13 20:25:00, Duration: 30 day, Stop date: 08/17/13 9:00:00(Same as: Habitrol) "Remove old patch before application of new patch" Ativan 1 mg, 0.5 mL, No Longer [place] Route: IVP, Active 2012 [facility] Drug form: INJ, Q2H, Dosing Weight 97.727, kg, PRN Anxiety, Start date: 07/18/13 20:18:00, Duration: 30 day, Stop date: 08/17/13 20:17:00, SIGNS OF WITHDRAWAL, AGITATION, Anxiety(Same as: Ativan) clonidine 0.1 mg 0.1 mg, 1 tab, No Longer [place] oral tablet Route: PO, Active 2012 [facility] Drug form: TAB, TID, Dosing Weight 97.727, kg, PRN Elevated BP, Start date: 07/18/13 20:17:00, Duration: 30 day, Stop date: 08/17/13 20:16:00, sbp >/=180(Same As: Catapres) vancomycin 1.5 gm, 250 Inactive [place] mL, Route: 2012 [facility] IVPB, Drug form: INJ, ONCE, Start date: 07/18/13 20:00:00, Stop date: 07/18/13 20:00:00Same as: Vancocin-NS (premixed) dextromethorphan-g 10 mL, Route: No Longer [place] uaifenesin 10 PO, Drug Form: Active 2012 [facility] mg-100 mg/5 mL LIQ, Dosing oral liquid Weight 97.727, kg, Q4H, PRN Cough, Start date: 07/18/13 19:28:00, Duration: 30 day, Stop date: 08/17/13 19:27:00(dextr omethorphan-gu aifenesin 10-100/5 ml LIQ) (Same as: Robitussin-DM) Colace 100 mg oral 100 mg, 1 cap, No Longer [place] capsule Route: PO, Active 2012 [facility] Drug form: CAP, BID, Dosing Weight 97.727, kg, PRN Constipation, Start date: 07/18/13 19:28:00, Duration: 30 day, Stop date: 08/17/13 19:27:00(Same as: Colace) (Do Not Crush) Gas-X Ultra 160 mg, 2 tab, No Longer [place] Softgels Route: PO, Active 2012 [facility] Drug form: CHEWTAB, Q4H, Dosing Weight 97.727, kg, PRN Gas, Start date: 07/18/13:28:00, Duration: 30 day, Stop date: 08/17/1327:00(Same as: Mylicon) GI cocktail 30 ml, Route: No Longer [place] PO, Drug Form: Active 2012 [facility] SUSP, Dosing Weight 97.727, kg, Q4H, PRN GI Upset, Routine, Start date: 07/18/13:28:00, Duration: 30 day, Stop date: 08/17/13:27:00, DYSPEPSIAG.I. Cocktail=antac id with simethicone 22.5 mL - lidocaine viscous 7.5 mL morphine Sulfate 2 mg, 1 mL, No Longer [place] Route: IVP, Active 2012 [facility] Drug form: INJ, Q6H, Dosing Weight 97.727, kg, PRN as needed for pain, Start date: 07/18/13:28:00, Duration: 30 day, Stop date: 08/17/1327:00(Same as:MORPhine Sulfate) Tylenol 650 mg, Route: Inactive [place] PO, Drug form: 2012 TAB, Q6H, Dosing Weight 97.727, kg, PRN Pain, Start date: 07/18/13:28:00, Duration: 30 day, Stop date: 08/17/1327:00 hydrALAZINE 10 mg, 0.5 mL, No Longer [place] Route: IVP, Active 2012 [facility] Drug form: INJ, Q6H, Dosing Weight 97.727, kg, PRN Elevated BP, Start date: 07/18/13:28:00, Duration: 30 day, Stop date: 08/17/13:27:00, SBP>/=160 OR DBP>/=90(Same as: Apresoline) Push over 5 minutes lactulose 20 gm, 30 ml, No Longer [place] Route: PO, Active 2012 [facility] Drug Form: SYRP, Dosing Weight 97.727, kg, TID, PRN Constipation, Start date: 07/18/13:28:00, Duration: 30 day, Stop date: 08/17/13 19:27:00(Same as:Chronulac) Zofran 4 mg, 2 mL, No Longer [place] Route: IV, Active 2012 [facility] Drug form: INJ, Q4H, Dosing Weight 97.727, kg, PRN Nausea, Start date: 07/18/13 19:28:00, Duration: 30 day, Stop date: 08/17/13 19:27:00(Same as: Zofran) acetaminophen 650 mg, 2 tab, No Longer [place] Route: PO, Active 2012 [facility] Drug form: TAB, Q4H, Dosing Weight 97.727, kg, PRN Pain Score 1-3, For fever > 100.4. Not to exceed 4 grams in 24 hours, Start date: 07/18/13 19:28:00, Duration: 30 day, Stop date: 08/17/13 19:27:00Do not exceed 4 gm/day. (Same as: Tylenol) tuberculin 5 unit, 0.1 Inactive [place] purified protein mL, Route: 2012 [facility] derivative 5 INTRADERM, tuberculin ONCE, Dosing units/0.1 mL Weight 97.727, intradermal kg, Start solution date: 07/18/13 19:22:00, Stop date: 07/18/13 1922:00 levofloxacin 750 mg, 150 [facility] mL, Route: IV, Active 2012 [facility] Drug form: SOLN, [id number], Dosing Weight 97.727, kg, Start date: 07/18/13 18:00:00, Duration: 30 day, Stop date: 08/16/13 18:00:00(Same as:Levaquin) Lasix 40 mg, 4 mL, Inactive [facility] Route: IV, 2012 [facility] Drug form: INJ, ONCE, Dosing Weight 97.727, kg, Start date: 07/18/13 17:20:00, Stop date: 07/18/13 17:20:00(Same as: Lasix) tuberculin 5 unit, 0.1 Inactive [facility] purified protein mL, Route: 2012 [facility] derivative INTRADERM, Drug form: INJ, ONCE, Dosing Weight 97.727, kg, Start date: 07/18/13 17:17:00, Stop date: 07/18/13 17:17:00LOT#: EXP: (Same As: Aplisol, Tubersol) Lasix 40 mg, Route: Inactive [place] 07[facility] IVP, Drug 2012 [facility] form: INJ, ONCE, Dosing Weight 97.727, kg, Priority: STAT, Start date: 07/18/13 17:12:00, Stop date: 07/18/13 17:12:00 hydrALAZINE 20 mg, 1 mL, Inactive [facility] 07/18[facility] Route: IVP, 2012 [facility] Drug form: INJ, ONCE, Dosing Weight 97.727, kg, Priority: STAT, Start date: 07/18/13 14:40:00, Stop date: 07/18/13 14:40:00(Same as: Apresoline) Push over 5 minutes Tylenol 650 mg, Route: Inactive [facility] 07/18[facility] PO, Drug form: 2012 [facility] TAB, ONCE, Dosing Weight 97.727, kg, Priority: STAT, Start date: 07/18/13 14:12:00, Stop date: 07/18/13 14:12:00 ketorolac 30 mg, Route: Inactive [facility] IVP, Drug 2012 [facility] form: INJ, ONCE, Dosing Weight 97.727, kg, Priority: STAT, Start date: 07/18/13 14:12:00, Stop date: 07/18/13 14:12:00 albuterol-ipratrop 3 mL, Route: Inactive [facility] 07/18[facility] ium 2.5-0.5 mg NEB, Drug 2012 [facility] inhalation Form: SOLN, solution Dosing Weight 97.727, kg, ONCE, STAT, Start date: 07/18/13 13:00:00, Stop date: 07/18/13 13:00:00 Saline Flush 0.9% 5 mL, Route: No Longer [facility] IVP, Drug Active 2012 [facility] Form: INJ, Dosing Weight 97.727, kg, PRN, PRN Line Flush, Start date: 07/18/13 13:00:00, Duration: 1 doses or times, Stop date: Limited # of times(Same as: BD Posiflush)
--- OUTSIDE RECORDS SUMMARY | 2018-08-27 17:27 | XMS REPORT | Summary of Care ---
:1965 Author Encounter MIHAI Banks(PANDA) [id number] Date(s): 11/29/13 - 11/29/13 [facility] [address] Discharge Diagnosis: Acute bronchitis Discharge Disposition: Home Physician Attending: Cliff Oleary MD Reason for Visit SPITTING UP BLOOD Vital Signs Most recent to oldest [Reference Range]: 1 2 Height 165.1 cm (11/29/13 4:01 AM) Temperature Oral [96.4-99.1 DegF] 98.9 DegF 99.1 DegF (11/29/13 5:16 AM) (11/29/13 4:01 AM) Systolic Blood Pressure [90-140 mmHg] 168 mmHg 167 mmHg *HI* *HI* (11/29/13 5:16 AM) (11/29/13 4:01 AM) Diastolic Blood Pressure [60-90 mmHg] 93 mmHg 94 mmHg *HI* *HI* (11/29/13 5:16 AM) (11/29/13 4:01 AM) Respiratory Rate [14-20 BRMIN] 20 BRMIN 20 BRMIN (11/29/13 5:16 AM) (11/29/13 4:01 AM) Peripheral Pulse Rate [60-100 bpm] 84 bpm 83 bpm (11/29/13 5:16 AM) (11/29/13 4:01 AM) Weight 99.091 kg (11/29/13 4:01 AM) Body Mass Index 36.35 m2 (11/29/13 4:01 AM) Problem List Condition Effective Dates Status Health Status Informant HTN - Hypertension(Confirmed) Active Hypercholesterolemia(Confirmed) Active Allergies, Adverse Reactions, Alerts Substance Reaction Severity Status NKDA Active Medications Tessalon Perles 100 mg oral capsule 100 mg=1 cap, PO, TID, # 21 cap, 0 Refill(s) Start Date: 11/29/13 Stop Date: 12/06/13 Status: OrderedZithromax 500 mg oral tablet 500 mg=1 tab, PO, Daily, # 7 tab, 0 Refill(s) Start Date: 11/29/13 Stop Date: 12/06/13 Status: Ordered Medications Administered During Your Visit No data available for this section Immunizations Vaccine Date Refusal Reason influenza virus vaccine, inactivated 07/21/13 tuberculin purified protein derivative1 07/18/13 1Result Comment: given in left forearm Social History Social History Type Response Alcohol Use: Current, Type: Liquor, Frequency: Daily Smoking Status Current every day smoker, Type: Cigarettes, Exposure to Tobacco Smoke None, Cigarette Smoking Last 365 Days Yes, Reg Smoking Cessation Counseling No
--- OUTSIDE RECORDS SUMMARY | 2018-08-27 17:28 | XMS REPORT | Summary of Care ---
:1965 Author Encounter MIHAI Banks(PANDA) [id number] Date(s): 02/07/14 - 02/09/14 [facility] [address] Discharge Disposition: Home Physician Attending: Yady Naik MD Physician Admitting: Yady Naik MD Reason for Visit ABDOMINAL PAIN Vital Signs Most recent to oldest 1 2 3 [Reference Range]: Height 165.1 cm 165.1 cm 165.1 cm (02/07/14 6:12 PM) (02/07/14 3:41 PM) (02/07/14 7:12 AM) Current Weight 91.989 kg (02/09/14 5:45 AM) Temperature Oral [96.4-99.1 98.0 DegF 98.6 DegF 98.6 DegF DegF] (02/09/14 11:00 AM) (02/09/14 7:00 AM) (02/09/14 12:00 AM) Systolic Blood Pressure 158 mmHg 155 mmHg 157 mmHg [90-140 mmHg] *HI* *HI* *HI* (02/09/14 11:00 AM) (02/09/14 7:00 AM) (02/09/14 12:00 AM) Diastolic Blood Pressure 98 mmHg 54 mmHg 78 mmHg [60-90 mmHg] *HI* *LOW* (02/09/14 12:00 AM) (02/09/14 11:00 AM) (02/09/14 7:00 AM) Respiratory Rate [14-20 16 BRMIN 16 BRMIN 20 BRMIN BRMIN] (02/09/14 11:00 AM) (02/09/14 7:00 AM) (02/09/14 12:00 AM) Peripheral Pulse Rate [60-100 68 bpm 64 bpm 73 bpm bpm] (02/09/14 11:00 AM) (02/09/14 7:00 AM) (02/09/14 12:00 AM) Weight 92.045 kg 96.818 kg 96.364 kg (02/07/14 6:12 PM) (02/07/14 3:41 PM) (02/07/14 7:12 AM) Body Mass Index 33.77 m2 35.52 m2 35.35 m2 (02/07/14 6:12 PM) (02/07/14 3:41 PM) (02/07/14 7:12 AM) Problem List Condition Effective Dates Status Health Status Informant CHF (congestive heart Active failure)(Confirmed) HTN - Hypertension(Confirmed) Active Hypercholesterolemia(Confirmed) Active Allergies, Adverse Reactions, Alerts Substance Reaction Severity Status NKDA Active Medications acetaminophen 650 mg, 20.3 mL, Route: PO, Drug form: LIQ, Q4H, Dosing Weight 96.364, kg, PRN Pain 1-3/Temp > 100.4 F, Start date: 02/07/14 12:54:00, Duration: 30 day, Stop date: 03/09/14 12:53:00 Notes: Max fwiowhzhmertw=1427yl/day (4 gm/day). (Same as: Tylenol) Start Date: 02/07/14 Stop Date: 02/09/14 Status: Discontinuedcarvedilol 12.5 mg oral tablet 6.25 mg=0.5 tab, PO, BID, # 15 tab, 0 Refill(s) Start Date: 02/09/14 Status: OrderedCoreg 12.5 mg, 1 tab, Route: PO, Drug form: TAB, BID, Dosing Weight 92.045, kg, Start date: 02/08/14 11:00:00, Duration: 30 day, Stop date: 03/10/14 9:00:00 Notes: Give with food. (Same As: Coreg) Start Date: 02/08/14 Stop Date: 02/09/14 Status: DiscontinuedCoreg 6.25 mg, 0.5 tab, Route: PO, Drug form: TAB, BID, Dosing Weight 92.045, kg, Start date: 02/09/14 21:00:00, Duration: 30 day, Stop date: 03/11/14 9:00:00 Notes: Give with food. (Same As: Coreg) Start Date: 02/09/14 Stop Date: 02/09/14 Status: CanceledCoreg 12.5 mg oral tablet 12.5 mg=1 tab, PO, BID, # 60 tab, 0 Refill(s) Start Date: 02/08/14 Stop Date: 02/09/14 Status: Discontinueddocusate 100 mg, 1 cap, Route: PO, Drug form: CAP, BID, Dosing Weight 96.364, kg, PRN Constipation, Start date: 02/07/14 12:54:00, Duration: 30 day, Stop date: 12:53:00 Notes: (Same as: Colace) (Do Not Crush) Start Date: 02/07/14 Stop Date: 02/09/14 Status: Discontinuedhydrochlorothiazide 25 mg oral tablet 25 mg=1 tab, PO, Daily, for edema, # 30 tab, 0 Refill(s) Start Date: 02/09/14 Status: Orderedhydrochlorothiazide-lisinopril 12.5 mg-20 mg oral tablet 1 tab, PO, Bedtime, 0 Refill(s) Start Date: 02/08/14 Stop Date: 02/09/14 Status: Discontinuedlisinopril 5 mg, 1 tab, Route: PO, Drug form: TAB, Daily, Dosing Weight 92.045, kg, Start date: 02/10/14 9:00:00, Duration: 30 day, Stop date: 03/11/14 9:00:00 Notes: (Same as: Prinivil, Zestril) Start Date: 02/10/14 Stop Date: 02/09/14 Status: Canceledlisinopril 5 mg oral tablet 5 mg=1 tab, PO, Daily, # 30 tab, 0 Refill(s) Start Date: 02/09/14 Status: OrderedmetFORMIN 500 mg, PO, Dinner, 0 Refill(s) Start Date: 02/08/14 Stop Date: 02/09/14 Status: Discontinuedmorphine Sulfate 2 mg, Route: IVP, ONCE, Dosing Weight 96.364, kg, Start date: 02/07/14 13:00:00 , Stop date: 02/07/1413:00:00 Start Date: 02/07/14 Stop Date: 02/07/14 Status: Completedmorphine Sulfate 6 mg, Route: IVP, Drug form: INJ, ONCE, Dosing Weight 96.364, kg, Priority: STAT , Start date: 02/07/14 7:33:00, Stop date: 02/07/14 7:33:00 Start Date: 02/07/14 Stop Date: 02/07/14 Status: CompletedNS (Bolus) IV 1,000 mL, 999 ml/hr, Infuse Over: 1 hr, Route: IV, ONCE, Priority: STAT, Dosing Weight 96.364 kg, Start date: 02/07/14 9:27:00, Duration: 1 doses or times, Stop date: 02/07/14 9:27:00 Start Date: 02/07/14 Stop Date: 02/07/14 Status: CompletedNS (Bolus) IV 500 mL, 500 ml/hr, Infuse Over: 1 hr, Route: IV, ONCE, Priority: STAT, Dosing Weight 96.364 kg, Start date: 02/07/14 7:37:00, Duration: 1 doses or times, Stop date: 02/07/14 7:37:00 Start Date: 02/07/14 Stop Date: 02/07/14 Status: CompletedNS 1,000 mL 1,000 mL, Rate: 40 ml/hr, Infuse over: 25 hr, Route: IV, Dosing Weight 92.045 kg , Total Volume: 1,000, Start date: 02/07/14 22:24:00, Duration: 30 day, Stop date: 03/09/14 22:23:00 Start Date: 02/07/14 Stop Date: 02/08/14 Status: DiscontinuedOmnipaque 240 50 mL, Route: PO, Dosing Weight 96.364, kg, ONCE, Start date: 02/07/14 9:41:00, Stop date: 02/07/14 9:41:00 Start Date: 02/07/14 Stop Date: 02/07/14 Status: Completedondansetron 4 mg, 2 mL, Route: IVP, Drug form: INJ, Q8H, Dosing Weight 96.364, kg, PRN Nausea & Vomiting, Start date: 02/07/14 12:54:00, Duration: 30 day, Stop date: 03/09/14 12:53:00 Notes: (Same as: Zofran) Start Date: 02/07/14 Stop Date: 02/09/14 Status: Discontinuedsimvastatin 40 mg, 2 tab, Route: PO, Drug form: TAB, Bedtime, Dosing Weight 92.045, kg, Start date: 02/08/14 21:00:00, Duration: 30 day, Stop date: 03/09/14 21:00:00 Notes: (Same as: Zocor) Start Date: 02/08/14 Stop Date: 02/09/14 Status: Discontinuedsimvastatin 40 mg=1 tab, PO, Bedtime, # 30 tab, 0 Refill(s) Start Date: 02/08/14 Stop Date: 03/10/14 Status: OrderedZofran 8 mg, Route: IVP, Drug form: INJ, ONCE, Dosing Weight 96.364, kg, Priority: STAT , Start date: 02/07/14 7:33:00, Stop date: 02/07/14 7:33:00 Start Date: 02/07/14 Stop Date: 02/07/14 Status: Completed Results ELECTROLYTES Most recent to oldest 1 2 3 [Reference Range]: Sodium Lvl [135-145 mEq/L] 141 mEq/L 138 mEq/L 135 mEq/L (02/09/14 5:08 AM) (02/08/14 4:47 AM) (02/07/14 7:50 AM) Potassium Lvl [3.5-5.1 mEq/L] 3.6 mEq/L 3.6 mEq/L 3.1 mEq/L (02/09/14 5:08 AM) (02/08/14 4:47 AM) *LOW* (02/07/14 7:50 AM) Chloride Lvl [95-109 mEq/L] 103 mEq/L 100 mEq/L 98 mEq/L (02/09/14 5:08 AM) (02/08/14 4:47 AM) (02/07/14 7:50 AM) CO2 [24-32 mEq/L] 32 mEq/L 32 mEq/L 27 mEq/L (02/09/14 5:08 AM) (02/08/14 4:47 AM) (02/07/14 7:50 AM) AGAP [10.0-20.0 mEq/L] 9.6 mEq/L 9.6 mEq/L 13.1 mEq/L *LOW* *LOW* (02/07/14 7:50 AM) (02/09/14 5:08 AM) (02/08/14 4:47 AM) CHEM PANEL Most recent to oldest 1 2 3 [Reference Range]: Creatinine Lvl [0.5-1.4 1.0 mg/dL 1.2 mg/dL 2.4 mg/dL mg/dL] (02/09/14 5:08 AM) (02/08/14 4:47 AM) *HI* (02/07/14 7:50 AM) eGFR 104 mL/min/1.73m2 1 83 mL/min/1.73m2 2 36 mL/min/1.73m2 3 *NA* *NA* *NA* (02/09/14 5:08 AM) (02/08/14 4:47 AM) (02/07/14 7:50 AM) BUN [7-22 mg/dL] 13 mg/dL 18 mg/dL 26 mg/dL (02/09/14 5:08 AM) (02/08/14 4:47 AM) *HI* (02/07/14 7:50 AM) B/C Ratio [6-25] 11 (02/07/14 7:50 AM) Glucose Lvl [70-99 mg/dL] 91 mg/dL 4 100 mg/dL 5 100 mg/dL 6 (02/09/14 5:08 AM) *HI* *HI* (02/08/14 4:47 AM) (02/07/14 7:50 AM) Uric Acid [3.8-8.0 mg/dL] 6.4 mg/dL 7.8 mg/dL (02/09/14 5:08 AM) (02/08/14 4:47 AM) Total Protein [6.4-8.4 7.9 g/dL g/dL] (02/07/14 7:50 AM) Albumin Lvl [3.5-5.0 g/dL] 4.1 g/dL (02/07/14 7:50 AM) Globulin [2.0-4.0 g/dL] 3.8 g/dL (02/07/14 7:50 AM) A/G Ratio [0.7-1.6] 1.1 (02/07/14 7:50 AM) Calcium Lvl [8.5-10.5 8.9 mg/dL 8.9 mg/dL 9.2 mg/dL mg/dL] (02/09/14 5:08 AM) (02/08/14 4:47 AM) (02/07/14 7:50 AM) Magnesium Lvl [1.8-2.4 2.0 mg/dL 2.2 mg/dL mg/dL] (02/09/14 5:08 AM) (02/08/14 4:47 AM) ALT [0-65 unit/L] 40 unit/L (02/07/14 7:50 AM) AST [0-37 unit/L] 41 unit/L *HI* (02/07/14 7:50 AM) Alk Phos [39-136 unit/L] 95 unit/L (02/07/14 7:50 AM) Bili Total [0.2-1.3 mg/dL] 0.8 mg/dL (02/07/14 7:50 AM) Lipase Lvl [73-393 unit/L] 102 unit/L (02/07/14 7:50 AM) 1Result Comment: The eGFR is calculated using the CKD-EPI formula. In most young , healthy individualsthe eGFR will be >90 mL/min/1.73m2. The eGFR declines with age. An eGFR of 60-89 may be normal in some populations, particularly the elderly, for whom the CKD-EPI formula has not been extensively validated. Use of the eGFR is not recommended in the following populations: Individuals with unstable creatinine concentrations, including patients and those with serious co-morbid conditions. Patients with extremes in muscle mass or diet. The data above are obtained from the National Kidney Disease Education Program ( NKDEP) which additionally recommends that when the eGFR is used in patients with extremes of body mass index for purposesof drug dosing, the eGFR should be multiplied by the estimated BMI.2Result Comment: The eGFR is calculated using the CKD-EPI formula. In most young, healthy individualsthe eGFR will be >90 mL/ min/1.73m2. The eGFR declines with age. An eGFR of 60-89 may be normal in some populations, particularly the elderly, for whom the CKD-EPI formula has not been extensively validated. Use of the eGFR is not recommended in the following populations: Individuals with unstable creatinine concentrations, including patients and those with serious co-morbid conditions. Patients with extremes in muscle mass or diet. The data above are obtained from the National Kidney Disease Education Program ( NKDEP) which additionally recommends that when the eGFR is used in patients with extremes of body mass index for purposesof drug dosing, the eGFR should be multiplied by the estimated BMI.3Result Comment: The eGFR is calculated using the CKD-EPI formula. In most young, healthy individualsthe eGFR will be >90 mL/ min/1.73m2. The eGFR declines with age. An eGFR of 60-89 may be normal in some populations, particularly the elderly, for whom the CKD-EPI formula has not been extensively validated. Use of the eGFR is not recommended in the following populations: Individuals with unstable creatinine concentrations, including patients and those with serious co-morbid conditions. Patients with extremes in muscle mass or diet. The data above are obtained from the National Kidney Disease Education Program ( NKDEP) which additionally recommends that when the eGFR is used in patients with extremes of body mass index for purposesof drug dosing, the eGFR should be multiplied by the estimated BMI.4Interpretive Data: Adult reference range values reflect the clinical guidelines of the [place] [employer].5Interpretive Data: Adult reference range values reflect the clinical guidelines of the [place] [employer].6Interpretive Data: Adult reference range values reflect the clinical guidelines of the [place] [employer].CARDIAC ENZYMES Most recent to oldest 1 2 3 [Reference Range]: Total CK [12-191 unit/L] 360 unit/L 496 unit/L 741 unit/L *HI* *HI* *HI* (02/09/14 5:08 AM) (02/08/14 4:47 AM) (02/07/14 7:50 AM) CK MB [0.5-3.6 ng/mL] 5.2 ng/mL *HI* (02/07/14 7:50 AM) CK MB Index [0.0-2.5] 0.7 (02/07/14 7:50 AM) Troponin-I [0.00-0.40 ng/mL] <0.02 ng/mL (02/07/14 7:50 AM) URINE CHEM Most recent to oldest [Reference Range]: 1 2 3 U Creatinine 185.2 mg/dL 7 *NA* (02/08/14 7:43 PM) U Protein 23.7 mg/dL 8 *NA* (02/08/14 7:43 PM) U Prot/Creat 0.1 *NA* (02/08/14 7:43 PM) U Sodium 67 mEq/L 9 *NA* (02/08/14 7:43 PM) 7Interpretive Data: No established reference ranges.8Interpretive Data: No established reference ranges.9Interpretive Data: No established reference ranges.URINE AND STOOL Most recent to oldest [Reference Range]: 1 2 3 UA Turbidity [Clear] Clear (02/07/14 12:00 PM) UA Color [Yellow] Yellow *NA* (02/07/14 12:00 PM) UA pH [5.0-8.0] 6.0 (02/07/14 12:00 PM) UA Spec Grav [<=1.030] 1.025 (02/07/14 12:00 PM) UA Glucose [Negative] Negative (02/07/14 12:00 PM) UA Blood [Negative] Negative (02/07/14 12:00 PM) UA Ketones [Negative] Trace *ABN* (02/07/14 12:00 PM) UA Protein [Negative] Trace *ABN* (02/07/14 12:00 PM) UA Urobilinogen [0.1-1.0 EU/dL] 0.2 EU/dL (02/07/14 12:00 PM) UA Bili [Negative] Small *ABN* (02/07/14 12:00 PM) UA Leuk Est [Negative] Negative (02/07/14 12:00 PM) UA Nitrite [Negative] Negative (02/07/14 12:00 PM) UA WBC [None Seen /HPF] 3-5 /HPF (02/07/14 12:00 PM) UA RBC [0-2 /HPF] 0-2 /HPF (02/07/14 12:00 PM) UA Bacteria [None Seen /HPF] Occasional /HPF (02/07/14 12:00 PM) UA Sq Epi [Few] None Seen (02/07/14 12:00 PM) UA Hyal Cast [0-2] 51-100 (02/07/14 12:00 PM) Micro? Performed (02/07/14 12:00 PM) IMMUNOLOGY Most recent to oldest [Reference Range]: 1 2 3 CDC HIV 4th GEN [Negative] Negative (02/07/14 7:45 AM) HEMATOLOGY Most recent to oldest 1 2 3 [Reference Range]: WBC [3.7-10.4 K/CMM] 5.7 K/CMM 5.7 K/CMM 8.4 K/CMM (02/09/14 5:08 AM) (02/08/14 4:47 AM) (02/07/14 7:50 AM) RBC [4.70-6.10 M/CMM] 4.40 M/CMM 4.62 M/CMM 5.18 M/CMM *LOW* *LOW* (02/07/14 7:50 AM) (02/09/14 5:08 AM) (02/08/14 4:47 AM) Hgb [14.0-18.0 g/dL] 12.4 g/dL 13.0 g/dL 14.6 g/dL *LOW* *LOW* (02/07/14 7:50 AM) (02/09/14 5:08 AM) (02/08/14 4:47 AM) Hct [42.0-54.0 %] 37.8 % 39.5 % 43.9 % *LOW* *LOW* (02/07/14 7:50 AM) (02/09/14 5:08 AM) (02/08/14 4:47 AM) MCV [80.0-94.0 fL] 85.9 fL 85.4 fL 84.9 fL (02/09/14 5:08 AM) (02/08/14 4:47 AM) (02/07/14 7:50 AM) MCH [27.0-31.0 pg] 28.1 pg 28.2 pg 28.3 pg (02/09/14 5:08 AM) (02/08/14 4:47 AM) (02/07/14 7:50 AM) MCHC [32.0-36.0 g/dL] 32.7 g/dL 33.0 g/dL 33.3 g/dL (02/09/14 5:08 AM) (02/08/14 4:47 AM) (02/07/14 7:50 AM) RDW [11.5-14.5 %] 14.0 % 13.9 % 13.9 % (02/09/14 5:08 AM) (02/08/14 4:47 AM) (02/07/14 7:50 AM) Platelet [133-450 K/CMM] 185 K/CMM 185 K/CMM 236 K/CMM (02/09/14 5:08 AM) (02/08/14 4:47 AM) (02/07/14 7:50 AM) MPV [7.4-10.4 fL] 8.8 fL 8.7 fL 8.7 fL (02/09/14 5:08 AM) (02/08/14 4:47 AM) (02/07/14 7:50 AM) Segs [45.0-75.0 %] 55.3 % 59.5 % 67.6 % (02/09/14 5:08 AM) (02/08/14 4:47 AM) (02/07/14 7:50 AM) Lymphocytes [20.0-40.0 %] 27.9 % 24.2 % 18.4 % (02/09/14 5:08 AM) (02/08/14 4:47 AM) *LOW* (02/07/14 7:50 AM) Monocytes [2.0-12.0 %] 13.5 % 12.9 % 11.9 % *HI* *HI* (02/07/14 7:50 AM) (02/09/14 5:08 AM) (02/08/14 4:47 AM) Eosinophils [0.0-4.0 %] 3.0 % 3.1 % 1.5 % (02/09/14 5:08 AM) (02/08/14 4:47 AM) (02/07/14 7:50 AM) Basophils [0.0-1.0 %] 0.3 % 0.3 % 0.6 % (02/09/14 5:08 AM) (02/08/14 4:47 AM) (02/07/14 7:50 AM) Segs-Bands # [1.5-8.1 K/CMM] 3.2 K/CMM 3.4 K/CMM 5.7 K/CMM (02/09/14 5:08 AM) (02/08/14 4:47 AM) (02/07/14 7:50 AM) Lymphocytes # [1.0-5.5 K/CMM] 1.6 K/CMM 1.4 K/CMM 1.5 K/CMM (02/09/14 5:08 AM) (02/08/14 4:47 AM) (02/07/14 7:50 AM) Monocytes # [0.0-0.8 K/CMM] 0.8 K/CMM 0.7 K/CMM 1.0 K/CMM (02/09/14 5:08 AM) (02/08/14 4:47 AM) *HI* (02/07/14 7:50 AM) Eosinophils # [0.0-0.5 K/CMM] 0.2 K/CMM 0.2 K/CMM 0.1 K/CMM (02/09/14 5:08 AM) (02/08/14 4:47 AM) (02/07/14 7:50 AM) Medications Administered During Your Visit No data available for this section Immunizations Vaccine Date Refusal Reason influenza virus vaccine, inactivated 07/21/13 tuberculin purified protein derivative1 07/18/13 1Result Comment: given in left forearm Social History Social History Type Response Substance Abuse Use: None Employment/School Status: Employed Alcohol Use: Current, Type: Beer, Frequency: Daily, Previous treatment: None, Has alcohol use interfered with work or home life? No, Do you ever drink more than intended? No, Has anyone been hurt or at risk by your drinking? No, Ready to change: No, Concerns about alcohol use in household: No1 Smoking Status Current every day smoker, Type: Cigarettes, Exposure to Tobacco Smoke None, Cigarette Smoking Last 365 Days Yes, Reg Smoking Cessation Counseling No 11 beer a day. Assessment and Plan Extracted from: Title: Cardiology Note * Author: Jose Jackson MD Date: 02/09/14 Impression and Plan ASSESSMENT: 1. Dehydration. 2. Acute kidney injury. 3. Rhabdomyolysis. 4. Chronic systolic heart failure, compensated. 5. Hyperlipidemia. PLAN: - agree with restarting coreg but decrease to 6.25mg bid. restart lisinopril low dose as well if ok with primary/renal - hold hctz and to use prn lasix if notices leg swelling or dyspnea - will need outpt ischemic workup. ok to d/c home from CV standpoint Extracted from: Title: cardiology Author: Jose Jackson MD Date: 02/08/14 Consultation Dictated. Labor Service Representative pending. 1. dehydration 2. DARSHAN 3. Rhabdomyolysis 4. chronic systolic HF - compensated - Cr better. stop IV fluids - lasix stopped by PCP and placed on HCTZ. - check echo to see what EF is. if still low will need ischemic w/up.
--- OUTSIDE RECORDS SUMMARY | 2018-08-27 17:28 | XMS REPORT | Summary of Care ---
:1965 Author Encounter MIHAI Banks(PANDA) [id number] Date(s): 05/08/14 - 05/09/14 [facility] [id number] Discharge Disposition: DC/[facility] to [facility] Physician Attending: Jaskaran Yi MD Reason for Visit HAND EDEMA Vital Signs Most recent to oldest 1 2 3 [Reference Range]: Height 165.1 cm (05/08/14 6:31 PM) Temperature Oral [96.4-99.1 98.6 DegF DegF] (05/08/14 6:31 PM) Systolic Blood Pressure 161 mmHg 164 mmHg 160 mmHg [90-140 mmHg] *HI* *HI* *HI* (05/09/14 2:20 AM) (05/09/14 12:30 AM) (05/08/14 6:31 PM) Diastolic Blood Pressure 107 mmHg 99 mmHg 94 mmHg [60-90 mmHg] *HI* *HI* *HI* (05/09/14 2:20 AM) (05/09/14 12:30 AM) (05/08/14 6:31 PM) Respiratory Rate [14-20 BRMIN] 16 BRMIN 18 BRMIN 20 BRMIN (05/09/14 2:20 AM) (05/09/14 12:30 AM) (05/08/14 6:31 PM) Peripheral Pulse Rate [60-100 90 bpm 98 bpm 115 bpm bpm] (05/09/14 2:20 AM) (05/09/14 12:30 AM) *HI* (05/08/14 6:31 PM) Weight 97.727 kg (05/08/14 6:31 PM) Body Mass Index 35.85 m2 (05/08/14 6:31 PM) Problem List Condition Effective Dates Status Health Status Informant CHF (congestive heart 2013 Active failure)(Confirmed) Diabetes(Confirmed) Resolved HTN - Hypertension(Confirmed) Active Hypercholesterolemia(Confirmed) Active Allergies, Adverse Reactions, Alerts Substance Reaction Severity Status NKDA Active Medications Dilaudid 1 mg, 1 mL, Route: IV, Drug form: INJ, ONCE, Dosing Weight 97.727, kg, Priority : STAT, Start date: 05/08/14 23:58:00, Stop date: 05/08/14 23:58:00 Notes: Same as: Dilaudid Start Date: 05/08/14 Stop Date: 05/09/14 Status: CompletedNS 1,000 mL 1,000 mL, Rate: bolus, Route: IV, Dosing Weight 97.727 kg, Total Volume: 1,000, Start date: 140:12:00, Stop date: 06/07/14 23:11:00, Bolus Dose Special Instructions: Bolus Dose Start Date: 05/09/14 Stop Date: 05/09/14 Status: Discontinuedondansetron 4 mg, 2 mL, Route: IVP, Drug form: INJ, ONCE, Dosing Weight 97.727, kg, Priority : STAT, Start date: 05/08/14 23:58:00, Stop date: 05/08/14 23:58:00 Notes: (Same as: Zofran) Start Date: 05/08/14 Stop Date: 05/09/14 Status: CompletedSaline Flush 0.9% 10 mL, Route: IVP, Drug Form: INJ, Dosing Weight 97.727, kg, PRN, PRN Line Flush , Start date: 05/08/14 23:57:00, Duration: 30 day, Stop date: 06/07/14 22:56:00 Notes: (Same as: BD Posiflush) Start Date: 05/08/14 Stop Date: 05/09/14 Status: Discontinuedvancomycin 2,000 mg, 500 mL, Route: IVPB, Drug form: SOLN, ONCE, Dosing Weight 97.727, kg, Priority: STAT, Start date: 05/08/14 23:57:00, Stop date: 05/08/14 23:57:00 Notes: Same as: Vancocin Infusion rate< 1000 mg: infuse over 1 [id number] - 1500 mg: infuse over 1.5 [id number] - 2000 mg: infuse over 2 hours> 2001 mg: infuse over 2.5 hours Start Date: 05/08/14 Stop Date: 05/09/14 Status: Completed Results ELECTROLYTES Most recent to oldest [Reference Range]: 1 Sodium Lvl [135-145 mEq/L] 142 mEq/L (05/08/14 12:35 AM) Potassium Lvl [3.5-5.1 mEq/L] 3.4 mEq/L *LOW* (05/08/14 12:35 AM) Chloride Lvl [95-109 mEq/L] 104 mEq/L (05/08/14 12:35 AM) CO2 [24-32 mEq/L] 27 mEq/L (05/08/14 12:35 AM) AGAP [10.0-20.0 mEq/L] 14.4 mEq/L (05/08/14 12:35 AM) CHEM PANEL Most recent to oldest [Reference Range]: 1 Creatinine Lvl [0.5-1.4 mg/dL] 1.0 mg/dL (05/08/14 12:35 AM) eGFR 104 mL/min/1.73m2 1 *NA* (05/08/14 12:35 AM) BUN [7-22 mg/dL] 9 mg/dL (05/08/14 12:35 AM) B/C Ratio [6-25] 9 (05/08/14 12:35 AM) Glucose Lvl [70-99 mg/dL] 123 mg/dL 2 *HI* (05/08/14 12:35 AM) Total Protein [6.4-8.4 g/dL] 7.1 g/dL (05/08/14 12:35 AM) Albumin Lvl [3.5-5.0 g/dL] 3.6 g/dL (05/08/14 12:35 AM) Globulin [2.0-4.0 g/dL] 3.5 g/dL (05/08/14 12:35 AM) A/G Ratio [0.7-1.6] 1.0 (05/08/14 12:35 AM) Calcium Lvl [8.5-10.5 mg/dL] 8.4 mg/dL *LOW* (05/08/14 12:35 AM) ALT [0-65 unit/L] 23 unit/L (05/08/14 12:35 AM) AST [0-37 unit/L] 23 unit/L (05/08/14 12:35 AM) Alk Phos [39-136 unit/L] 75 unit/L (05/08/14 12:35 AM) Bili Total [0.2-1.3 mg/dL] 0.2 mg/dL (05/08/14 12:35 AM) Lactic Acid Lvl [0.5-2.2 mMol/L] 2.2 mMol/L (05/08/14 12:35 AM) Procalcitonin Lvl [0.00-0.10 ng/mL] <0.05 ng/mL (05/08/14 12:35 AM) 1Result Comment: The eGFR is calculated [...] eGFR should be multiplied by the estimated BMI.2Interpretive Data: Adult reference range values reflect the clinical guidelines of the [place] [employer].HEMATOLOGY Most recent to oldest [Reference Range]: 1 WBC [3.7-10.4 K/CMM] 8.6 K/CMM (05/08/14 12:35 AM) RBC [4.70-6.10 M/CMM] 4.33 M/CMM *LOW* (05/08/14 12:35 AM) Hgb [14.0-18.0 g/dL] 12.3 g/dL *LOW* (05/08/14 12:35 AM) Hct [42.0-54.0 %] 36.8 % *LOW* (05/08/14 12:35 AM) MCV [80.0-94.0 fL] 85.0 fL (05/08/14 12:35 AM) MCH [27.0-31.0 pg] 28.5 pg (05/08/14 12:35 AM) MCHC [32.0-36.0 g/dL] 33.6 g/dL (05/08/14 12:35 AM) RDW [11.5-14.5 %] 14.3 % (05/08/14 12:35 AM) Platelet [133-450 K/CMM] 193 K/CMM (05/08/14 12:35 AM) MPV [7.4-10.4 fL] 8.9 fL (05/08/14 12:35 AM) Segs [45.0-75.0 %] 68.6 % (05/08/14 12:35 AM) Lymphocytes [20.0-40.0 %] 20.2 % (05/08/14 12:35 AM) Monocytes [2.0-12.0 %] 8.2 % (05/08/14 12:35 AM) Eosinophils [0.0-4.0 %] 2.5 % (05/08/14 12:35 AM) Basophils [0.0-1.0 %] 0.5 % (05/08/14 12:35 AM) Segs-Bands # [1.5-8.1 K/CMM] 5.9 K/CMM (05/08/14 12:35 AM) Lymphocytes # [1.0-5.5 K/CMM] 1.7 K/CMM (05/08/14 12:35 AM) Monocytes # [0.0-0.8 K/CMM] 0.7 K/CMM (05/08/14 12:35 AM) Eosinophils # [0.0-0.5 K/CMM] 0.2 K/CMM (05/08/14 12:35 AM) PT [12.0-14.7 seconds] 13.0 seconds (05/08/14 12:35 AM) INR [0.85-1.17] 0.98 3 (05/08/14 12:35 AM) PTT [22.9-35.8 seconds] 32.9 seconds 4 (05/08/14 12:35 AM) 3Interpretive Data: RECOMMENDED RANGES FOR PROTIME INR: 2.0-3.0 for most medical and surgical thromboembolic states. 2.5-3.5 for artificial heart valves and recurrent embolism. INR SHOULD BE USED ONLY FOR PATIENTS ON STABLE ANTICOAGULANT THERAPY.4Interpretive Data: Heparin Therapeutic Range: 57 - 92 Seconds Medications Administered During Your Visit No data available for this section Immunizations Vaccine Date Refusal Reason diphtheria/pertussis, acel/tetanus adult 05/09/14 influenza virus vaccine, inactivated 07/21/13 tuberculin purified [...] 365 Days Yes, Reg Smoking Cessation Counseling Yes 11 beer a day.
--- OUTSIDE RECORDS SUMMARY | 2018-08-27 17:28 | XMS REPORT | CCD ---
:1965 Author Organization [facility] Care Team Providers Name Role Phone Evan Pierre II Consulting Provider Allergies, Adverse Reactions, Alerts Substance Reaction Status NKDA Active Medications Medication Instructions Start Date End Date Status lisinopril 10 mg, 1 tab, Route: 07/18/2013 07/19/2013 Discontinued PO, Drug form: TAB, Q12H, Dosing Weight 97.727, kg, Start date: 07/18/13 21:00:00, Duration: 30 day, Stop date: 08/17/13 9:00:00(Same as: Prinivil, Zestril) Coreg 12.5 mg, 1 tab, 07/18/2013 07/21/2013 Discontinued Route: PO, Drug form: TAB, Q12H, Dosing Weight 97.727, kg, Start date: 07/18/13 21:00:00, Stop date: 08/17/13 9:00:00Give with food. (Same As: Coreg) clonidine 0.1 mg oral 0.1 mg, 1 tab, Route: 07/18/2013 07/21/2013 Discontinued tablet PO, Drug form: TAB, TID, Dosing Weight 97.727, kg, PRN Elevated BP, Start date: 07/18/13 20:17:00, Duration: 30 day, Stop date: 08/17/13 20:16:00, sbp >/=180(Same As: Catapres) Nicoderm C-Q 21 mg, 1 patch, 07/18/2013 07/21/2013 Discontinued Route: TOP, Drug form: ERFILM, Daily, Dosing Weight 97.727, kg, Start date: 07/18/13 20:25:00, Duration: 30 day, Stop date: 08/17/13 9:00:00(Same as: Habitrol)"Remove old patch before application of new patch" Levaquin 750 mg oral 750 mg=1 tab, PO, 07/21/2013 07/28/2013 Ordered tablet Q24H, # 7 tab, 0 Refill(s) dextromethorphan-guaifene 10 mL, Route: PO, 07/18/2013 07/21/2013 Discontinued sin 10 mg-100 mg/5 mL Drug Form: LIQ, oral liquid Dosing Weight 97.727, kg, Q4H, PRN Cough, Start date: 07/18/13 19:28:00, Duration: 30 day, Stop date: 08/17/13 19:27:00(dextromethor diaz-guaifenesin 10-100/5 ml LIQ) (Same as: Robitussin-DM) Colace 100 mg oral 100 mg, 1 cap, Route: 07/18/2013 07/21/2013 Discontinued capsule PO, Drug form: CAP, BID, Dosing Weight 97.727, kg, PRN Constipation, Start date: 07/18/13 19:28:00, Duration: 30 day, Stop date: 08/17/13 19:27:00(Same as: Colace) (Do Not Crush) Gas-X Ultra Softgels 160 mg, 2 tab, Route: 07/18/2013 07/21/2013 Discontinued PO, Drug form: CHEWTAB, Q4H, Dosing Weight 97.727, kg, PRN Gas, Start date: 07/18/13 19:28:00, Duration: 30 day, Stop date: 08/17/13 19:27:00(Same as: Mylicon) GI cocktail 30 ml, Route: PO, 07/18/2013 07/21/2013 Discontinued Drug Form: SUSP, Dosing Weight 97.727, kg, Q4H, PRN GI Upset, Routine, Start date: 07/18/13 19:28:00, Duration: 30 day, Stop date: 08/17/13 19:27:00, DYSPEPSIAG.I. Cocktail=antacid with simethicone 22.5 mL - lidocaine viscous 7.5 mL morphine Sulfate 2 mg, 1 mL, Route: 07/18/2013 07/21/2013 Discontinued IVP, Drug form: INJ, Q6H, Dosing Weight 97.727, kg, PRN as needed for pain, Start date: 07/18/13 19:28:00, Duration: 30 day, Stop date: 08/17/13 19:27:00(Same as:MORPhine Sulfate) Collbran 10/325 oral tablet 1 tab, Route: PO, 07/19/2013 07/21/2013 Discontinued Drug Form: TAB, Dosing Weight 97.727, kg, Q6H, Start date: 07/19/13 0:00:00, Duration: 30 day, Stop date: 08/17/13 18:00:00Do not exceed 4gm/day of acetaminophen. (Same as: Collbran 325/10) albuterol-ipratropium 3 mL, Route: NEB, 07/18/2013 07/21/2013 Discontinued 2.5-0.5 mg inhalation Drug Form: SOLN, solution Dosing Weight 97.727, kg, RQ4H, Start date: 07/18/13 23:00:00, Duration: 30 day, Stop date: 08/17/13 19:00:00(Same as: Duoneb) Tylenol 650 mg, Route: PO, 07/18/2013 07/18/2013 Deleted Drug form: TAB, Q6H, Dosing Weight 97.727, kg, PRN Pain, Start date: 07/18/13 19:28:00, Duration: 30 day, Stop date: 08/17/13 19:27:00 hydrALAZINE 10 mg, 0.5 mL, Route: 07/18/2013 07/20/2013 Discontinued IVP, Drug form: INJ, Q6H, Dosing Weight 97.727, kg, PRN Elevated BP, Start date: 07/18/13 19:28:00, Duration: 30 day, Stop date: 08/17/13 19:27:00, SBP>/=160 OR DBP>/=90(Same as: Apresoline)Push over 5 minutes lactulose 20 gm, 30 ml, Route: 07/18/2013 07/21/2013 Discontinued PO, Drug Form: SYRP, Dosing Weight 97.727, kg, TID, PRN Constipation, Start date: 07/18/13 19:28:00, Duration: 30 day, Stop date: 08/17/13 19:27:00(Same as:Chronulac) Tessalon Perles 200 mg, 2 cap, Route: 07/18/2013 07/21/2013 Discontinued PO, Drug form: CAP, Q8H-06, Dosing Weight 97.727, kg, Start date: 07/18/13 22:00:00, Duration: 30 day, Stop date: 08/17/13 14:00:00(Same As: Tessalon Perles)"Do Not Crush" Zofran 4 mg, 2 mL, Route: 07/18/2013 07/21/2013 Discontinued IV, Drug form: INJ, Q4H, Dosing Weight 97.727, kg, PRN Nausea, Start date: 07/18/13 19:28:00, Duration: 30 day, Stop date: 08/17/13 19:27:00(Same as: Zofran) acetaminophen 650 mg, 2 tab, Route: 07/18/2013 07/21/2013 Discontinued PO, Drug form: TAB, Q4H, Dosing Weight 97.727, kg, PRN Pain Score 1-3, For fever > 100.4. Not to exceed 4 grams in 24 hours, Start date: 07/18/13 19:28:00, Duration: 30 day, Stop date: 08/17/13 19:27:00Do not exceed 4 gm/day. (Same as: Tylenol) carvedilol 12.5 mg oral 12.5 mg=1 tab, PO, 07/21/2013 Ordered tablet Q12H, # 60 tab, 0 Refill(s) Lasix 40 mg, 4 mL, Route: 07/18/2013 07/18/2013 Completed IV, Drug form: INJ, ONCE, Dosing Weight 97.727, kg, Start date: 07/18/13 17:20:00, Stop date: 07/18/13 17:20:00(Same as: Lasix) Tessalon 200 mg oral 200 mg=1 cap, PO, 07/21/2013 Ordered capsule TID, # 30 cap, 0 Refill(s) albuterol-ipratropium 3 mL, Route: NEB, 07/18/2013 07/18/2013 Completed 2.5-0.5 mg inhalation Drug Form: SOLN, solution Dosing Weight 97.727, kg, ONCE, STAT, Start date: 07/18/13 13:00:00, Stop date: 07/18/13 13:00:00 Saline Flush 0.9% 5 mL, Route: IVP, 07/18/2013 07/21/2013 Discontinued Drug Form: INJ, Dosing Weight 97.727, kg, PRN, PRN Line Flush, Start date: 07/18/13 13:00:00, Duration: 1 doses or times, Stop date: Limited # of times(Same as: BD Posiflush) albuterol 90 mcg/inh 1 puff, INHALATION, 07/21/2013 Ordered inhalation aerosol QID, wheezing, # 1 ea, 0 Refill(s) aspirin 81 mg tablet, 81 mg=1 tab, PO, 07/21/2013 Ordered enteric coated Daily, # 30 tab, 0 Refill(s) cloNIDine 0.1 mg oral 0.1 mg=1 tab, PO, 07/21/2013 Ordered tablet TID, Elevated BP | sbp >/=160, # 60 tab, 0 Refill(s) hydrALAZINE 10 mg, 0.5 mL, Route: 07/20/2013 07/21/2013 Discontinued IVP, Drug form: INJ, Q6H, Dosing Weight 97.727, kg, PRN Hypertension, Start date: 07/20/13 14:02:00, Duration: 30 day, Stop date: 08/19/13 14:01:00, SBP>/=150 OR DBP>/=90(Same as: Apresoline)Push over 5 minutes simvastatin 20 mg oral 40 mg=2 tab, PO, 07/21/2013 Ordered tablet Bedtime, # 30 tab, 0 Refill(s) Lasix 40 mg, Route: IVP, 07/18/2013 07/18/2013 Completed Drug form: INJ, ONCE, Dosing Weight 97.727, kg, Priority: STAT, Start date: 07/18/13 17:12:00, Stop date: 07/18/13 17:12:00 Lasix 40 mg, 4 mL, Route: 07/19/2013 07/20/2013 Discontinued IVP, Drug form: INJ, Daily, Dosing Weight 97.727, kg, Priority: Routine, Start date: 07/19/13 9:00:00, Duration: 30 day, Stop date: 08/17/13 9:00:00(Same as: Lasix) vancomycin 1.25 gm, 250 mL, 07/19/2013 07/21/2013 Discontinued Route: IVPB, Drug form: INJ, [id number], Start date: 07/19/13 6:00:00, Stop date: 08/18/13 2:00:00Same as: Vancocin-NS (premixed) hydrALAZINE 20 mg, 1 mL, Route: 07/18/2013 07/18/2013 Completed IVP, Drug form: INJ, ONCE, Dosing Weight 97.727, kg, Priority: STAT, Start date: 07/18/13 14:40:00, Stop date: 07/18/13 14:40:00(Same as: Apresoline)Push over 5 minutes magnesium sulfate 2 gm, 50 mL, Route: IVPB, Drug form: INJ, PRN, Dosing Weight 93.3, kg, PRN Abnormal Lab Result, Start date: 07/19/13 10:51:00, Duration: 30 day, Stop date: 08/18/13 10:50:00, FOR ICU USE ONLY 07/19/2013 Discontinued FOR ICU USE ONLY potassium phosphate + 45 mmol, 15 mL, Route: IVPB, Drug form: INJ, PRN, Dosing Weight 93.3, kg, PRN Abnormal Lab Result, Start date: 07/19/13 10:51:00, Duration: 30 day, Stop date: 08/18/13 10:50:00, FOR ICU USE ONLY 07/19/2013 Discontinued Sodium Chloride 0.9% IV FOR ICU USE ONLY(Same as: K Phosphate.) 1 mMol phoshate has 1.47 mEq potassium Infuse over 4 hours 250 mL calcium gluconate 1 gm, 50 mL, Route: IVPB, Drug form: INJ, PRN, Dosing Weight 93.3, kg, PRN Abnormal Lab Result, Start date: 07/19/13 10:51:00, Duration: 30 day, Stop date: 08/18/13 10:50:00, FOR ICU USE ONLY 07/19/2013 Discontinued FOR ICU USE ONLY sodium glycerophosphate + 45 mmol, 45 mL, Route: IVPB, Drug form: INJ, PRN, Dosing Weight 93.3, kg, PRN Abnormal Lab Result, Start date: 07/19/13 10:51:00, Duration: 30 day, Stop date: 08/18/13 10:50:00, FOR ICU USE ONLY 07/19/2013 Discontinued Sodium Chloride 0.9% IV FOR ICU USE ONLY 250 mL potassium phosphate + 15 mmol, 5 mL, Route: IVPB, PRN, Dosing Weight 93.3, kg , PRN Abnormal Lab Result, Start date: 07/19/13 10:51:00, Duration: 30 day, Stop date: 08/18/13 10:50:00, FOR ICU USE ONLY 07/19/2013 07/20/2013 Discontinued Sodium Chloride 0.9% IV FOR ICU USE ONLY(Same as: K Phosphate.) 1 mMol phoshate has 1.47 mEq potassium Infuse over 4 hours 250 mL potassium phosphate + 30 mmol, 10 mL, Route: IVPB, PRN, Dosing Weight 93.3, kg , PRN Abnormal Lab Result, Start date: 07/19/13 10:51:00, Duration: 30 day, Stop date: 08/18/13 10:50:00, FOR ICU USE ONLY 07/19/2013 07/20/2013 Discontinued Sodium Chloride 0.9% IV FOR ICU USE ONLY(Same as: K Phosphate.) 1 mMol phoshate has 1.47 mEq potassium Infuse over 4 hours 250 mL potassium chloride 20 mEq, 1 tab, Route: PO, Drug form: ERTAB, PRN, Dosing Weight 93.3, kg, PRN Abnormal Lab Result, Start date: 07/19/13 10:51:00, Duration: 30 day, Stop date: 08/18/13 10:50:00, FOR ICU USE ONLY 07/19/2013 Discontinued FOR ICU USE ONLY(Same as: K-Dur 20)"Do Not Crush" With food and full glass of water sodium glycerophosphate + 15 mmol, 15 mL, Route: IVPB, PRN, Dosing Weight 93.3 , kg, PRN Abnormal Lab Result, Start date: 07/19/13 10:51:00, Duration: 30 day, Stop date: 08/18/13 10:50:00, FOR ICU USE ONLY 07/19/2013 07/20/2013 Discontinued Sodium Chloride 0.9% IV FOR ICU USE ONLY 250 mL sodium glycerophosphate + 30 mmol, 30 mL, Route: IVPB, Drug form: INJ, PRN, Dosing Weight 93.3, kg, PRN Abnormal Lab Result, Start date: 07/19/13 10:51:00, Duration: 30 day, Stop date: 08/18/13 10:50:00, FOR ICU USE ONLY 07/19/2013 Discontinued Sodium Chloride 0.9% IV FOR ICU USE ONLY 250 mL potassium chloride 10 mEq, 100 mL, Route: IVPB, Drug form: INJ, PRN, Dosing Weight 93.3, kg, PRN Abnormal Lab Result, Via peripheral line, Start date: 07/19 10:51:00, Duration: 30 day, Stop date: 08/18/13 10:50:00, FOR ICU USE ONLY 07/19/2013 07/20/2013 Discontinued FOR ICU USE ONLYInfuse at a rate of 10 mEq/hr.(Same as: KCL) potassium chloride 20 mEq, 15 mL, Route: NJ, Drug form: LIQ, PRN, Dosing Weight 93.3, kg, PRN Abnormal Lab Result, Start date: 07/19/13 10:51:00, Duration: 30 day, Stop date: 08/18/13 10:50:00, FOR ICU USE ONLY 07/19/2013 Discontinued FOR ICU USE ONLY(Same as: Potassium Chloride) potassium chloride 20 mEq, 100 mL, Route: IVPB, Drug form: INJ, PRN, Dosing Weight 93.3, kg, PRN Abnormal Lab Result, Via central line, Start date: 10:51:00, Duration: 30 day, Stop date: 08/18/13 10:50:00, FOR ICU USE ONLY 07/19/2013 07/20/2013 Discontinued FOR ICU USE ONLY(Same as: KCL) Infuse no faster than 10 mEq/hr if given peripherally. lisinopril 20 mg oral 20 mg=1 tab, PO, Q12H, HOLD IF SBP </=110, # 60 tab, 0 Refill(s) 07/21/2013 Ordered tablet HOLD IF SBP </=110 furosemide 40 mg oral 40 mg=1 tab, PO, 07/21/2013 Ordered tablet Daily, # 30 tab, 0 Refill(s) Ativan 1 mg, 0.5 mL, Route: 07/18/2013 07/21/2013 Discontinued IVP, Drug form: INJ, Q2H, Dosing Weight 97.727, kg, PRN Anxiety, Start date: 07/18/13 20:18:00, Duration: 30 day, Stop date: 08/17/13 20:17:00, SIGNS OF WITHDRAWAL, AGITATION, Anxiety(Same as: Ativan) folic acid 1 mg, 1 tab, Route: 07/19/2013 07/21/2013 Discontinued PO, Drug form: TAB, Daily, Dosing Weight 97.727, kg, Start date: 07/19/13 9:00:00, Duration: 30 day, Stop date: 08/17/13 9:00:00(Same as: Folvite) multivitamin 1 tab, Route: PO, 07/19/2013 07/18/2013 Deleted Drug Form: TAB, Dosing Weight 97.727, kg, Daily, Start date: 07/19/13 9:00:00, Duration: 30 day, Stop date: 08/17/13 9:00:00 thiamine 100 mg, 1 tab, Route: 07/19/2013 07/21/2013 Discontinued PO, Drug form: TAB, Daily, Dosing Weight 97.727, kg, Start date: 07/19/13 9:00:00, Duration: 30 day, Stop date: 08/17/13 9:00:00(Same As: Vitamin B1) Lasix 40 mg, 1 tab, Route: 07/21/2013 07/21/2013 Discontinued PO, Drug form: TAB, Daily, Dosing Weight 93.3, kg, Start date: 07/21/13 9:00:00, Duration: 30 day, Stop date: 08/19/13 9:00:00(Same as: Lasix) May cause GI upset. Give with food or milk. Tylenol 650 mg, Route: PO, 07/18/2013 07/18/2013 Completed Drug form: TAB, ONCE, Dosing Weight 97.727, kg, Priority: STAT, Start date: 07/18/13 14:12:00, Stop date: 07/18/13 14:12:00 tuberculin purified 5 unit, 0.1 mL, 07/18/2013 07/18/2013 Deleted protein derivative 5 Route: INTRADERM, tuberculin units/0.1 mL ONCE, Dosing Weight intradermal solution 97.727, kg, Start date: 07/18/13 19:22:00, Stop date: 07/18/13 19:22:00 vancomycin 1.5 gm, 250 mL, 07/18/2013 07/18/2013 Completed Route: IVPB, Drug form: INJ, ONCE, Start date: 07/18/13 20:00:00, Stop date: 07/18/13 20:00:00Same as: Vancocin-NS (premixed) ketorolac 30 mg, Route: IVP, 07/18/2013 07/18/2013 Completed Drug form: INJ, ONCE, Dosing Weight 97.727, kg, Priority: STAT, Start date: 07/18/13 14:12:00, Stop date: 07/18/13 14:12:00 levofloxacin 750 mg, 150 mL, 07/18/2013 07/21/2013 Discontinued Route: IV, Drug form: SOLN, [id number], Dosing Weight 97.727, kg, Start date: 07/18/13 18:00:00, Duration: 30 day, Stop date: 08/16/13 18:00:00(Same as:Levaquin) Vancomycin Pharmacy 1 gm, Route: IV, 07/18/2013 07/18/2013 Deleted Dosing Dosing Weight 97.727, kg, Q12H, Start date: 07/18/13 21:00:00, Duration: 30 day, Stop date: 08/17/13 9:00:00 lisinopril 20 mg, 1 tab, Route: 07/19/2013 07/21/2013 Discontinued PO, Drug form: TAB, Q12H, Dosing Weight 97.727, kg, Priority: STAT, Start date: 07/19/13 20:50:00, Duration: 30 day, Stop date: 08/18/13 9:00:00(Same as: Prinivil, Zestril) influenza virus vaccine, 0.5 mL, Route: IM, 07/19/2013 07/19/2013 Pending Complete inactivated Drug Form: SUSP, Daily, Start date: 07/19/13 9:00:00, Duration: 1 doses or times, Stop date: 07/19/13 9:00:00(Same as: Fluzone) Zocor 40 mg, 2 tab, Route: 07/19/2013 07/21/2013 Discontinued PO, Drug form: TAB, Bedtime, Dosing Weight 93.3, kg, Start date: 07/19/13 21:00:00, Duration: 30 day, Stop date: 08/17/13 21:00:00(Same as: Zocor) aspirin 325 mg tablet, 325 mg, 1 tab, Route: 07/20/2013 07/21/2013 Discontinued enteric coated PO, Drug form: ECTAB, Daily, Dosing Weight 93.3, kg, Start date: 07/20/13 9:00:00, Duration: 30 day, Stop date: 08/18/13 9:00:00(Do Not Crush) Do not crush or chew. tuberculin purified 5 unit, 0.1 mL, 07/18/2013 07/18/2013 Completed protein derivative Route: INTRADERM, Drug form: INJ, ONCE, Dosing Weight 97.727, kg, Start date: 07/18/13 17:17:00, Stop date: 07/18/13 17:17:00LOT#: EXP: (Same As: Aplisol, Tubersol) multivitamin with 1 tab, Route: PO, 07/19/2013 07/21/2013 Discontinued minerals Drug Form: TAB, Daily, Start date: 07/19/13 9:00:00, Duration: 30 day, Stop date: 08/17/13 9:00:00Give with food.(Same As: Stress 600 with Zinc) Immunizations Vaccine Date Status influenza virus vaccine, inactivated 07/21/2013 Auth (Verified) tuberculin purified protein derivative1 07/18/2013 Auth (Verified) 1Result Comment: given in left forearm Vital Signs Most recent to oldest 1 2 3 [Reference Range]: Height 165.1 cm 165.1 cm 165.1 cm (07/20/2013 01:30:00) (07/19/2013 02:35:00) (07/18/2013 11:58:00) Temperature Oral 98.5 DegF 99.5 DegF 97.9 DegF [96.4-99.1 DegF] (07/21/2013 12:00:00) *HI* (07/21/2013 00:24:00) (07/21/2013 08:00:00) Systolic Blood Pressure 132 mmHg 164 mmHg 142 mmHg [90-140 mmHg] (07/21/2013 12:00:00) *HI* *HI* (07/21/2013 08:00:00) (07/21/2013 00:24:00) Diastolic Blood Pressure 81 mmHg 90 mmHg 74 mmHg [60-90 mmHg] (07/21/2013 12:00:00) (07/21/2013 08:00:00) (07/21/2013 00:24: 00) Respiratory Rate [14-20 18 BRMIN 18 BRMIN 18 BRMIN BRMIN] (07/21/2013 12:00:00) (07/21/2013 08:00:00) (07/21/2013 00:24:00) Peripheral Pulse Rate 95 bpm 66 bpm 86 bpm [60-100 bpm] (07/21/2013 12:00:00) (07/21/2013 08:00:00) (07/21/2013 00:24: 00) Weight 93.3 kg 97.727 kg (07/19/2013 02:35:00) (07/18/2013 11:58:00) Results BACTERIAL - SEROLOGY Most recent to oldest [Reference Range]: 1 2 3 U S pneumo Ag [Negative] Negative 1 (07/19/2013 01:00:00) 1Result Comment: Collection date/time has been modified to: 01:00:00. Previous collection date/time: 01:00:00.MICRO MISC - SEROLOGY Most recent to oldest [Reference Range]: 1 2 3 U Legion Ag [Negative] Negative 2, 3 (07/19/2013 01:00:00) 2Result Comment: Collection date/time has been modified to: 01:00:00. Previous collection date/time: 01:00:00.3Interpretive Data: This kit tests for Legionella pneumophila Serogroup 1 Antigen.VIRAL - SEROLOGY Most recent to oldest [Reference Range]: 1 2 3 Influ A [Negative] Negative (07/18/2013 13:30:08) Influ B [Negative] Negative 4 (07/18/2013 13:30:08) 4Interpretive Data: Influenza A&B Antigen: Due to the low sensitivity of this test a negative result does not exclude influenza virus infection. A diagnosis of influenza should be considered based on a patient's clinical presentation and empiric antiviral treatment should be considered, if indicated. If more conclusive testing is desired, follow-up confirmatory testing with either viral culture or PCR is warranted.CHEMISTRY Most recent to oldest 1 2 3 [Reference Range]: Sodium Lvl [135-145 137 mEq/L 138 mEq/L 138 mEq/L mEq/L] (07/21/2013 05:10:00) (07/20/2013 05:28:00) (07/19/2013 05:26:00) Potassium Lvl [3.5-5.1 4.4 mEq/L 3.8 mEq/L 3.2 mEq/L mEq/L] (07/21/2013 05:10:00) (07/20/2013 05:28:00) *LOW* (07/19/2013 05:26:00) Chloride Lvl [95-109 105 mEq/L 104 mEq/L 104 mEq/L mEq/L] (07/21/2013 05:10:00) (07/20/2013 05:28:00) (07/19/2013 05:26:00) CO2 [24-32 mEq/L] 24 mEq/L 24 mEq/L 24 mEq/L (07/21/2013 05:10:00) (07/20/2013 05:28:00) (07/19/2013 05:26:00) AGAP [10.0-20.0 mEq/L] 12.4 mEq/L 13.8 mEq/L 13.2 mEq/L (07/21/2013 05:10:00) (07/20/2013 05:28:00) (07/19/2013 05:26:00) Creatinine Lvl [0.5-1.4 1.0 mg/dL 1.0 mg/dL 1.1 mg/dL mg/dL] (07/21/2013 05:10:00) (07/20/2013 05:28:00) (07/19/2013 05:26:00) eGFR 105 mL/min/1.73m2 5 105 mL/min/1.73m2 6 81 mL/min/1.73m2 7 *NA* *NA* *NA* (07/21/2013 05:10:00) (07/20/2013 05:28:00) (07/19/2013 05:26:00) BUN [7-22 mg/dL] 16 mg/dL 16 mg/dL 14 mg/dL (07/21/2013 05:10:00) (07/20/2013 05:28:00) (07/19/2013 05:26:00) B/C Ratio [6-25] 16 9 (07/20/2013 05:28:00) (07/18/2013 13:30:00) Glucose Lvl [70-99 107 mg/dL 8 104 mg/dL 9 116 mg/dL 10 mg/dL] *HI* *HI* *HI* (07/21/2013 05:10:00) (07/20/2013 05:28:00) (07/19/2013 05:26:00) Total Protein [6.4-8.4 7.0 g/dL 7.5 g/dL g/dL] (07/20/2013 05:28:00) (07/18/2013 13:30:00) Albumin Lvl [3.5-5.0 3.4 g/dL 4.0 g/dL g/dL] *LOW* (07/18/2013 13:30:00) (07/20/2013 05:28:00) Globulin [2.0-4.0 g/dL] 3.6 g/dL 3.5 g/dL (07/20/2013 05:28:00) (07/18/2013 13:30:00) A/G Ratio [0.7-1.6] 0.9 1.1 (07/20/2013 05:28:00) (07/18/2013 13:30:00) Calcium Lvl [8.5-10.5 8.6 mg/dL 8.5 mg/dL 8.7 mg/dL mg/dL] (07/21/2013 05:10:00) (07/20/2013 05:28:00) (07/19/2013 05:26:00) Phosphorus [2.5-4.5 4.4 mg/dL 3.4 mg/dL 3.2 mg/dL mg/dL] (07/21/2013 05:10:00) (07/20/2013 05:28:00) (07/19/2013 05:26:00) Magnesium Lvl [1.8-2.4 2.3 mg/dL 2.5 mg/dL 1.7 mg/dL mg/dL] (07/21/2013 05:10:00) *HI* *LOW* (07/20/2013 05:28:00) (07/19/2013 05:26:00) ALT [0-65 unit/L] 25 unit/L 33 unit/L (07/20/2013 05:28:00) (07/18/2013 13:30:00) AST [0-37 unit/L] 25 unit/L 26 unit/L (07/20/2013 05:28:00) (07/18/2013 13:30:00) Alk Phos [39-136 unit/L] 78 unit/L 101 unit/L (07/20/2013 05:28:00) (07/18/2013 13:30:00) Bili Total [0.2-1.3 0.4 mg/dL 1.0 mg/dL mg/dL] (07/20/2013 05:28:00) (07/18/2013 13:30:00) Lactic Acid Lvl [0.5-2.2 1.1 mMol/L 1.7 mMol/L mMol/L] (07/19/2013 05:26:00) (07/18/2013 19:50:00) Total CK [12-191 unit/L] 456 unit/L 458 unit/L 458 unit/L *HI* *HI* *HI* (07/19/2013 05:29:00) (07/19/2013 00:45:00) (07/19/2013 00:45:00) CK MB [0.5-3.6 ng/mL] 2.2 ng/mL 2.1 ng/mL 4.4 ng/mL (07/19/2013 05:29:00) (07/19/2013 00:45:00) *HI* (07/18/2013 13:30:00) CK MB Index [0.0-2.5] 0.5 0.5 0.8 (07/19/2013 05:29:00) (07/19/2013 00:45:00) (07/18/2013 13:30:00) Troponin-I [0.00-0.40 0.03 ng/mL 0.04 ng/mL 0.03 ng/mL ng/mL] (07/19/2013 05:29:00) (07/19/2013 00:45:00) (07/18/2013 13:30:00) BNP [<=100 pg/mL] 23 pg/mL 11 34 pg/mL 12 104 pg/mL 13 (07/21/2013 05:10:00) (07/20/2013 05:28:00) *HI* (07/19/2013 05:26:00) CHD Risk [4.00-7.30] 5.38 (07/19/2013 05:26:00) Chol [<=199 mg/dL] 156 mg/dL (07/19/2013 05:26:00) Trig [<=149 mg/dL] 79 mg/dL (07/19/2013 05:26:00) HDL [>=61 mg/dL] 29 mg/dL *LOW* (07/19/2013 05:26:00) LDL (Calculated) [<=99 111 mg/dL mg/dL] *HI* (07/19/2013 05:26:00) Vanco Tr TND See eMAR *NA* (07/20/2013 13:12:00) Vanco Tr 19.3 ug/ml 14 *NA* (07/20/2013 13:12:00) pH Art [7.35-7.45] 7.44 7.44 (07/20/2013 04:40:58) (07/18/2013 13:38:43) pCO2 Art [35-45 mmHg] 33 mmHg 35 mmHg *LOW* (07/18/2013 13:38:43) (07/20/2013 04:40:58) pO2 Art [80-100 mmHg] 83 mmHg 65 mmHg (07/20/2013 04:40:58) *LOW* (07/18/2013 13:38:43) HCO3 Art [22-26 mMol/L] 22 mMol/L 24 mMol/L (07/20/2013 04:40:58) (07/18/2013 13:38:43) BE Art [-2-2 mMol/L] -1 mMol/L 0 mMol/L (07/20/2013 04:40:58) (07/18/2013 13:38:43) O2 Sat Art [95.0-100.0 96.6 % 93.2 % %] (07/20/2013 04:40:58) *LOW* (07/18/2013 13:38:43) Site Art Left Rad Right Ra (07/20/2013 04:40:58) (07/18/2013 13:38:43) Temp Art 37.0 DegC 37.0 DegC *NA* *NA* (07/20/2013 04:40:58) (07/18/2013 13:38:43) Allens Art Positive Positive (07/20/2013 04:40:58) (07/18/2013 13:38:43) Mode Art Rm Air Rm Air (07/20/2013 04:40:58) (07/18/2013 13:38:43) 5Result Comment: The eGFR is calculated using the [...] eGFR should be multiplied by the estimated BMI.6Result Comment: The eGFR is calculated using the [...] eGFR should be multiplied by the estimated BMI.7Result Comment: The eGFR is calculated using the [...] eGFR should be multiplied by the estimated BMI.8Interpretive Data: Adult reference range values reflect the clinical guidelines of the [employer] [employer].9Interpretive Data: Adult reference range values reflect the clinical guidelines of the [employer] [employer].10Interpretive Data: Adult reference range values reflect the clinical guidelines of the [employer] [employer].11Interpretive Data: Elevated results are in line with increasing severity of congestive heart failure. Minor elevations between 100 and 300 may be seen with Myocardial Ischemia, Sodium retaining drugs, and compensated/treated heart failure.12Interpretive Data: Elevated results are in line with increasing severity of congestive heart failure. Minor elevations between 100 and 300 may be seen with Myocardial Ischemia, Sodium retaining drugs, and compensated/treated heart failure.13Interpretive Data: Elevated results are in line with increasing severity of congestive heart failure. Minor elevations between 100 and 300 may be seen with Myocardial Ischemia, Sodium retaining drugs, and compensated/treated heart failure.14Interpretive Data: Therapeutic Range: Trough: 10 - 20 ug/mL Peak: 20 - 40 ug/mL Potential Toxicity: >80 ug/mLHEMATOLOGY Most recent to oldest 1 2 3 [Reference Range]: WBC [3.7-10.4 K/CMM] 11.1 K/CMM 10.7 K/CMM 15.7 K/CMM *HI* *HI* *HI* (07/21/2013 05:10:00) (07/20/2013 05:28:00) (07/19/2013 05:26:00) RBC [4.70-6.10 M/CMM] 4.33 M/CMM 4.38 M/CMM 4.49 M/CMM *LOW* *LOW* *LOW* (07/21/2013 05:10:00) (07/20/2013 05:28:00) (07/19/2013 05:26:00) Hgb [14.0-18.0 g/dL] 12.3 g/dL 12.2 g/dL 12.6 g/dL *LOW* *LOW* *LOW* (07/21/2013 05:10:00) (07/20/2013 05:28:00) (07/19/2013 05:26:00) Hct [42.0-54.0 %] 37.4 % 38.4 % 38.8 % *LOW* *LOW* *LOW* (07/21/2013 05:10:00) (07/20/2013 05:28:00) (07/19/2013 05:26:00) MCV [80.0-94.0 fL] 86.4 fL 87.6 fL 86.4 fL (07/21/2013 05:10:00) (07/20/2013 05:28:00) (07/19/2013 05:26:00) MCH [27.0-31.0 pg] 28.3 pg 28.0 pg 28.0 pg (07/21/2013 05:10:00) (07/20/2013 05:28:00) (07/19/2013 05:26:00) MCHC [32.0-36.0 g/dL] 32.8 g/dL 31.9 g/dL 32.5 g/dL (07/21/2013 05:10:00) *LOW* (07/19/2013 05:26:00) (07/20/2013 05:28:00) RDW [11.5-14.5 %] 14.3 % 14.1 % 14.6 % (07/21/2013 05:10:00) (07/20/2013 05:28:00) *HI* (07/19/2013 05:26:00) Platelet [133-450 K/CMM] 243 K/CMM 227 K/CMM 227 K/CMM (07/21/2013 05:10:00) (07/20/2013 05:28:00) (07/19/2013 05:26:00) MPV [7.4-10.4 fL] 10.0 fL 9.9 fL 9.8 fL (07/21/2013 05:10:00) (07/20/2013 05:28:00) (07/19/2013 05:26:00) Segs [45.0-75.0 %] 75.8 % 69.3 % 81.0 % *HI* (07/20/2013 05:28:00) *HI* (07/21/2013 05:10:00) (07/19/2013 05:26:00) Lymphocytes [20.0-40.0 %] 12.1 % 16.5 % 8.8 % *LOW* *LOW* *LOW* (07/21/2013 05:10:00) (07/20/2013 05:28:00) (07/19/2013 05:26:00) Monocytes [2.0-12.0 %] 7.1 % 9.0 % 8.1 % (07/21/2013 05:10:00) (07/20/2013 05:28:00) (07/19/2013 05:26:00) Eosinophils [0.0-4.0 %] 4.6 % 4.8 % 1.7 % *HI* *HI* (07/19/2013 05:26:00) (07/21/2013 05:10:00) (07/20/2013 05:28:00) Basophils [0.0-1.0 %] 0.4 % 0.4 % 0.4 % (07/21/2013 05:10:00) (07/20/2013 05:28:00) (07/19/2013 05:26:00) Segs-Bands # [1.5-8.1 8.4 K/CMM 7.4 K/CMM 12.7 K/CMM K/CMM] *HI* (07/20/2013 05:28:00) *HI* (07/21/2013 05:10:00) (07/19/2013 05:26:00) Lymphocytes # [1.0-5.5 1.3 K/CMM 1.8 K/CMM 1.4 K/CMM K/CMM] (07/21/2013 05:10:00) (07/20/2013 05:28:00) (07/19/2013 05:26:00) Monocytes # [0.0-0.8 0.8 K/CMM 1.0 K/CMM 1.3 K/CMM K/CMM] (07/21/2013 05:10:00) *HI* *HI* (07/20/2013 05:28:00) (07/19/2013 05:26:00) Eosinophils # [0.0-0.5 0.5 K/CMM 0.5 K/CMM 0.3 K/CMM K/CMM] (07/21/2013 05:10:00) (07/20/2013 05:28:00) (07/19/2013 05:26:00) Basophils # [0.0-0.2 0.0 K/CMM 0.0 K/CMM 0.1 K/CMM K/CMM] (07/21/2013 05:10:00) (07/20/2013 05:28:00) (07/19/2013 05:26:00) PB Smear Path The CBC and peripheral smear from 07/19/2013, 0526 hours shows mild granulocytosis without a significant left shift, mild monocytosis and mild normochromic normocytic anemia. No atypical or immature le ukocytes are seen. No schistocytes or spherocytes are seen. Platelets are adequate. Simone Calderon M.D. 07/19/2013, 1126 hours. *NA* (07/19/2013 05:26:00) IMMUNOLOGY Most recent to oldest [Reference Range]: 1 2 3 HIV 1/2 Ab [Negative] Negative *NA* (07/19/2013 05:26:00) Quantiferon - TB Gold [NEGATIVE] INDETERMINATE 15 *ABN* (07/19/2013 06:00:00) NIL 0.01 IU/mL *NA* (07/19/2013 06:00:00) Mitogen - NIL 0.10 IU/mL *NA* (07/19/2013 06:00:00) TB - NIL 0.00 IU/mL 16 *NA* (07/19/2013 06:00:00) 15Result Comment: Results are indeterminate for response to ESAT-6,TB7.7 and/or CFP-10 test antigens.16Result Comment: The Nil tube value is used to determine if the patient has a preexisting immune response which could cause a false-positive reading on the test. In order for a test to be valid, the Nil tube must have a value of less than or equal to 8.0 IU/mL. The mitogen control tube is used to assure the patient has a healthy immune status and also serves as a control for correct blood handling and incubation. It is used to detect false-negative readings. The mitogen tube must have a gamma interferon value of greater than or equal to 0.5 IU/mL higher than the value of the Nil tube. The TB antigen tube is coated with the M. tuberculosis specific antigens. For a test to be considered positive, the TB antigen tube value minus the Nil tube value must be greater than or equal to 0.35 IU/mL. For additional information, please refer to http://education.[employer]/faq/QFT (This link is being provided for informational/ educational purposes only.) Test Performed at: [facility] [address] [id number] BENJIE BAUTISTA M.D. Microbiology Reports PROCEDURE:Culture: AFB w/Smear STATUS: Order in Progress BODY SITE: COLLECTED DATE/TIME: 07/20/2013 05:00:00 SOURCE: Sputum FREE TEXT SOURCE: PRELIMINARY REPORTS Preliminary ReportCulture In ProgressSTAIN REPORTS Stain ReportNo Acid Fast Bacilli Seen On Smear PROCEDURE: Culture: AFB w/Smear STATUS: Order in Progress BODY SITE: COLLECTED DATE/TIME: 07/19/2013 22:55:00 SOURCE: Sputum FREE TEXT SOURCE: PRELIMINARY REPORTS Preliminary ReportCulture In ProgressSTAIN REPORTS Stain ReportNo Acid Fast Bacilli Seen On Smear PROCEDURE: Culture: AFB w/Smear STATUS: Order in Progress BODY SITE: COLLECTED DATE/TIME: 07/19/2013 11:35:00 SOURCE: Sputum FREE TEXT SOURCE: PRELIMINARY REPORTS Preliminary ReportCulture In ProgressSTAIN REPORTS Stain ReportNo Acid Fast Bacilli Seen On Smear PROCEDURE: Culture: Blood STATUS: Order in Progress BODY SITE: Right Antecubital COLLECTED DATE/TIME: 07/18/2013 19:55:00 SOURCE: Blood FREE TEXT SOURCE: PRELIMINARY REPORTS Preliminary ReportNo Growth At 2 Days Preliminary ReportNo Growth At 1 Day Preliminary ReportNo Growth At 4 Days Preliminary ReportNo Growth At 3 Days Preliminary ReportNo Growth; Holding PROCEDURE:Culture: Blood STATUS: Order in Progress BODY SITE: Left Antecubital COLLECTED DATE/TIME: 07/18/2013 19:50:00 SOURCE: Blood FREE TEXT SOURCE: PRELIMINARY REPORTS Preliminary ReportNo Growth; Holding Preliminary ReportNo Growth At 2 Days Preliminary ReportNo Growth At 4 Days Preliminary ReportNo Growth At 1 Day Preliminary ReportNo Growth At 3 Days
--- OUTSIDE RECORDS SUMMARY | 2018-08-27 17:29 | XMS REPORT | Summary of Care ---
:1965 Author Encounter HQ Jocelyn(PANDA) [id number] Date(s): 08/14/14 - 08/17/14 [facility] [id number] Discharge Disposition: Home Physician Attending: Abilio Francois MD Physician Admitting: Abilio Francois MD Reason for Visit SHORTNESS OF BREATH Vital Signs Most recent to oldest 1 2 3 [Reference Range]: Height 165.1 cm 165.1 cm 165.1 cm (08/14/14 3:38 PM) (08/14/14 3:36 PM) (08/14/14 7:19 AM) Temperature Oral [96.4-99.1 97.5 DegF 98.3 DegF 98.4 DegF DegF] (08/17/14 6:51 PM) (08/17/14 7:18 AM) (08/17/14 12:02 AM) Systolic Blood Pressure 149 mmHg 131 mmHg 112 mmHg [90-140 mmHg] *HI* (08/17/14 11:18 AM) (08/17/14 7:18 AM) (08/17/14 6:51 PM) Diastolic Blood Pressure 89 mmHg 87 mmHg 70 mmHg [60-90 mmHg] (08/17/14 6:51 PM) (08/17/14 11:18 AM) (08/17/14 7:18 AM) Respiratory Rate [14-20 16 BRMIN 20 BRMIN 14 BRMIN BRMIN] (08/17/14 7:58 PM) (08/17/14 6:51 PM) (08/17/14 7:51 AM) Peripheral Pulse Rate [60-100 106 bpm 100 bpm 87 bpm bpm] *HI* (08/17/14 1:30 PM) (08/17/14 11:18 AM) (08/17/14 6:51 PM) Weight 96.96 kg 96.96 kg 113.636 kg (08/14/14 3:38 PM) (08/14/14 3:36 PM) (08/14/14 7:19 AM) Body Mass Index 35.57 m2 35.57 m2 41.69 m2 (08/14/14 3:38 PM) (08/14/14 3:36 PM) (08/14/14 7:19 AM) Problem List Condition Effective Dates Status Health Status Informant CHF (congestive heart 2013 Active failure)(Confirmed) Diabetes(Confirmed) Resolved HTN - Hypertension(Confirmed) Active Hypercholesterolemia(Confirmed) Active Allergies, Adverse Reactions, Alerts Substance Reaction Severity Status NKDA Active Medications acetaminophen 650 mg, 1 supp, Route: TN, Drug form: SUPP, Q6H, Dosing Weight 96.96, kg, PRN For Temp > 100.4 F, Start date: 08/14/14 19:53:00, Duration: 30 day, Stop date: 09/13/14 19:52:00 Notes: Max srepuymougqql=1570 mg/day (4 gm/day). (Same as: Tylenol) Start Date: 08/14/14 Stop Date: 08/17/14 Status: Discontinuedacetaminophen 650 mg, 2 tab, Route: PO, Drug form: TAB, Q4H, Dosing Weight 113.636, kg, PRN Pain Score 1-3, For fever > 100.4. Not to exceed 4 grams in 24 hours, Start date : 08/14/14 10:53:00, Duration: 30 day, Stop date: 09/13/14 10:52:00 Notes: Do not exceed 4 gm/day. (Same as: Tylenol) Start Date: 08/14/14 Stop Date: 08/17/14 Status: Discontinuedacetaminophen 650 mg, 2 tab, Route: PO, Drug form: TAB, ONCE, Dosing Weight 113.636, kg, Start date: 08/14/14 7:28:00, Stop date: 08/14/14 7:28:00 Notes: Do not exceed 4 gm/day. (Same as: Tylenol) Start Date: 08/14/14 Stop Date: 08/14/14 Status: Completedacetylcysteine oral solution (mg) 600 mg, Route: PO, Drug form: SOLN, BID, Dosing Weight 96.96, kg, Priority: STAT , Start date: 08/15/14 18:35:00, Duration: 2 day, Stop date: 08/17/14 17:00:00 Start Date: 08/15/14 Stop Date: 08/15/14 Status: Deletedalbuterol 0.5% inhalation solution 5 mg, 1 mL, Route: INHALATION, Drug form: SOLN, ONCE, Dosing Weight 113.636, kg , Start date: 08/14/14 7:45:00, Stop date: 08/14/14 7:45:00 Notes: SEE RT DOCUMENTATION Start Date: 08/14/14 Stop Date: 08/14/14 Status: Completedalbuterol 90 mcg/inh inhalation aerosol 1 puff, INHALATION, QID, wheezing, # 1 ea, 0 Refill(s) Start Date: 08/17/14 Status: Orderedalbuterol-ipratropium 2.5-0.5 mg inhalation solution 3 mL, Route: NEB, Drug Form: SOLN, Dosing Weight 113.636, kg, PRN, PRN Respiratory Protocol, Start date: 08/14/14 10:53:00, Duration: 30 day, Stop date : 09/13/14 10:52:00 Notes: (Same as: Duoneb) Start Date: 08/14/14 Stop Date: 08/15/14 Status: Discontinuedalbuterol-ipratropium 2.5-0.5 mg inhalation solution 3 mL, Route: NEB, Drug Form: SOLN, Dosing Weight 113.636, kg, RQ4H, Start date: 08/15/14 19:00:00, Stop date: 09/13/14 11:00:00 Notes: (Same as: Duoneb) Start Date: 08/15/14 Stop Date: 08/17/14 Status: Discontinuedaspirin 81 mg tablet, enteric coated 81 mg, 1 tab, Route: PO, Drug form: ECTAB, Daily, Dosing Weight 96.96, kg, Start date: 08/15/14 9:00:00, Duration: 30 day, Stop date: 09/13/14 9:00:00 Notes: Do not crush or chew.(Same As: Ecotrin) Start Date: 08/15/14 Stop Date: 08/17/14 Status: Discontinuedaspirin 81 mg tablet, enteric coated 81 mg=1 tab, PO, Daily, # 30 tab, 0 Refill(s) Start Date: 08/17/14 Status: OrderedAtivan 1 mg, 0.5 mL, Route: IVP, Drug form: INJ, TID, Dosing Weight 96.96, kg, PRN Anxiety, Priority: STAT,Start date: 08/15/14 16:16:00, Duration: 30 day, Stop date: 09/14/14 16:15:00 Notes: (Same as: Ativan) Start Date: 08/15/14 Stop Date: 08/17/14 Status: DiscontinuedAtivan 0.25 mg, 0.13 mL, Route: IV, Drug form: INJ, ONCE, Dosing Weight 96.96, kg, Start date: 08/15/14 14:15:00, Stop date: 08/15/14 14:15:00 Notes: (Same as: Ativan) Start Date: 08/15/14 Stop Date: 08/15/14 Status: Completedcarvedilol 25 mg, 1 tab, Route: PO, Drug form: TAB, BID, Dosing Weight 113.636, kg, Start date: 08/15/14 21:00:00, Duration: 30 day, Stop date: 09/14/14 9:00:00 Notes: Give with food. (Same As: Coreg) Start Date: 08/15/14 Stop Date: 08/17/14 Status: Discontinuedcarvedilol 25 mg, 1 tab, Route: PO, Drug form: TAB, BID, Dosing Weight 113.636, kg, Start date: 08/14/14 11:30:00, Duration: 30 day, Stop date: 09/13/14 9:00:00 Notes: Give with food. (Same As: Coreg) Start Date: 08/14/14 Stop Date: 08/15/14 Status: Discontinuedcarvedilol 25 mg oral tablet 25 mg=1 tab, PO, Q12H, # 60 tab, 0 Refill(s) Start Date: 08/17/14 Status: OrderedCipro 500 mg oral tablet 500 mg=1 tab, PO, Q12H, # 14 tab, 0 Refill(s) Start Date: 08/17/14 Status: OrderedcloNIDine 0.1 mg oral tablet 0.1 mg, 1 tab, Route: PO, Drug form: TAB, TID, Dosing Weight 96.96, kg, PRN Other -See Comment, Start date: 08/15/14 18:34:00, Duration: 30 day, Stop date: 09/14/14 18:33:00, sbp >/=180 Notes: (Same As: Catapres) Start Date: 08/15/14 Stop Date: 08/17/14 Status: DiscontinuedCoreg 12.5 mg, 1 tab, Route: PO, Drug form: TAB, Q12H, Dosing Weight 96.96, kg, Start date: 08/14/14 21:00:00, Duration: 30 day, Stop date: 09/13/14 9:00:00 Notes: Give with food. (Same As: Coreg) Start Date: 08/14/14 Stop Date: 08/15/14 Status: DiscontinuedDextrose 50% Syringe 12.5 gm, 25 mL, Route: IVP, Drug Form: INJ, Dosing Weight 96.96, kg, PRN, PRN Blood Glucose Results,Start date: 08/14/14 19:28:00, Duration: 30 day, Stop date : 09/13/14 19:27:00 Start Date: 08/14/14 Stop Date: 08/17/14 Status: DiscontinuedDextrose 50% Syringe 25 gm, 50 mL, Route: IVP, Drug Form: INJ, Dosing Weight 96.96, kg, PRN, PRN Blood Glucose Results, Start date: 08/14/14 19:28:00, Duration: 30 day, Stop date: 09/13/14 19:27:00 Start Date: 08/14/14 Stop Date: 08/17/14 Status: Discontinuedenoxaparin 40 mg, 0.4 mL, Route: SUB-Q, Drug form: INJ, [id number], Dosing Weight 113.636, kg , Start date: 08/14/14 11:00:00, Duration: 30 day, Stop date: 09/12/14 11:00:00 Notes: (Same as: Lovenox) Start Date: 08/14/14 Stop Date: 08/17/14 Status: Discontinuedglucagon 1 mg, Route: IM, Drug form: PDR/INJ, PRN, Dosing Weight 96.96, kg, PRN Blood Glucose Results, Start date: 08/14/14 19:28:00, Duration: 30 day, Stop date: 07/16 19:27:00 Start Date: 08/14/14 Stop Date: 08/17/14 Status: DiscontinuedguaiFENesin 200 mg, 10 mL, Route: PO, Drug form: SYRP, Q4H, Dosing Weight 113.636, kg, PRN Cough, Start date: 08/14/14 10:53:00, Duration: 30 day, Stop date: 09/13/14 10: 52:00 Notes: (Same as: Mcsin) Start Date: 08/14/14 Stop Date: 08/17/14 Status: DiscontinuedhydrALAZINE 10 mg, 0.5 mL, Route: IVP, Drug form: INJ, Q2H, Dosing Weight 113.636, kg, PRN Hypertension, Priority: STAT, Start date: 08/14/14 11:04:00, Stop date: 11:03:00, For SBP above 180 and DBP Notes: (Same as: Apresoline)Push over 5 minutes Start Date: 08/14/14 Stop Date: 08/15/14 Status: DiscontinuedhydrALAZINE 10 mg, 0.5 mL, Route: IVP, Drug form: INJ, Q6H, Dosing Weight 96.96, kg, PRN Other -See Comment, Start date: 08/15/14 18:34:00, Duration: 30 day, Stop date: 09/14/14 18:33:00, SBP>/=160 OR DBP>/=90 Notes: (Same as: Apresoline)Push over 5 minutes Start Date: 08/15/14 Stop Date: 08/17/14 Status: Discontinuedhydrochlorothiazide 25 mg oral tablet 25 mg=1 tab, PO, Daily, # 30 tab, 0 Refill(s) Start Date: 08/17/14 Status: Orderedibuprofen 400 mg, 1 tab, Route: PO, Drug form: TAB, ONCE, Dosing Weight 113.636, kg, Start date: 08/14/14 7:28:00, Stop date: 08/14/14 7:28:00 Notes: (Same as: Motrin)"Do Not Crush" Give with food. Start Date: 08/14/14 Stop Date: 08/14/14 Status: Completedinsulin aspart 1 unit, 0.01 mL, Route: SUB-Q, Drug form: SOLN, TID-Before Meals, Dosing Weight 96.96, kg, PRN BloodGlucose Results, Start date: 08/14/14 19:28:00, Duration: 30 day, Stop date: 09/13/14 19:27:00 Notes: Roll in palms of hands gently; Do not shake vigorously. (Same as: NovoLOG)"single patient use only" Stable for 28 days at room temperature.Expires in days from Date Start Date: 08/14/14 Stop Date: 08/17/14 Status: Discontinuedinsulin aspart 4 unit, 0.04 mL, Route: SUB-Q, Drug form: SOLN, TID-Before Meals, Dosing Weight 96.96, kg, PRN BloodGlucose Results, Start date: 08/14/14 19:28:00, Duration: 30 day, Stop date: 09/13/14 19:27:00 Notes: Roll in palms of hands gently; Do not shake vigorously. (Same as: NovoLOG)"single patient use only" Stable for 28 days at room temperature.Expires in days from Date Start Date: 08/14/14 Stop Date: 08/17/14 Status: Discontinuedinsulin aspart 5 unit, 0.05 mL, Route: SUB-Q, Drug form: SOLN, TID-Before Meals, Dosing Weight 96.96, kg, PRN BloodGlucose Results, Start date: 08/14/14 19:28:00, Duration: 30 day, Stop date: 09/13/14 19:27:00 Notes: Roll in palms of hands gently; Do not shake vigorously. (Same as: NovoLOG)"single patient use only" Stable for 28 days at room temperature.Expires in days from Date Start Date: 08/14/14 Stop Date: 08/17/14 Status: Discontinuedinsulin aspart 3 unit, 0.03 mL, Route: SUB-Q, Drug form: SOLN, TID-Before Meals, Dosing Weight 96.96, kg, PRN BloodGlucose Results, Start date: 08/14/14 19:28:00, Duration: 30 day, Stop date: 09/13/14 19:27:00 Notes: Roll in palms of hands gently; Do not shake vigorously. (Same as: NovoLOG)"single patient use only" Stable for 28 days at room temperature.Expires in days from Date Start Date: 08/14/14 Stop Date: 08/17/14 Status: Discontinuedinsulin aspart 2 unit, 0.02 mL, Route: SUB-Q, Drug form: SOLN, TID-Before Meals, Dosing Weight 96.96, kg, PRN BloodGlucose Results, Start date: 08/14/14 19:28:00, Duration: 30 day, Stop date: 09/13/14 19:27:00 Notes: Roll in palms of hands gently; Do not shake vigorously. (Same as: NovoLOG)"single patient use only" Stable for 28 days at room temperature.Expires in days from Date Start Date: 08/14/14 Stop Date: 08/17/14 Status: Discontinuedlabetalol 10 mg, 2 mL, Route: IVP, Drug form: INJ, ONCE, Dosing Weight 113.636, kg, Priority: STAT, Start date: 08/14/14 7:45:00, Stop date: 08/14/14 7:45:00 Notes: (Same as: Normodyne, Trandate)Push over 2 minutes Give bolus over 2-3 minutes. Start Date: 08/14/14 Stop Date: 08/14/14 Status: DiscontinuedLasix 40 mg, 4 mL, Route: IVP, Drug form: INJ, ONCE, Dosing Weight 113.636, kg, Priority: STAT, Start date: 08/14/14 8:27:00, Stop date: 08/14/14 8:27:00 Notes: (Same as: Lasix) Start Date: 08/14/14 Stop Date: 08/14/14 Status: CompletedLevaquin 750 mg, 150 mL, Route: IVPB, Drug form: SOLN, [id number], Dosing Weight 96.96, kg, Start date: 08/15/1518:00:00, Duration: 30 day, Stop date: 09/13/14 19:00:00 Notes: (Same as:Levaquin) Start Date: 08/15/14 Stop Date: 08/17/14 Status: Discontinuedlisinopril 10 mg, 1 tab, Route: PO, Drug form: TAB, BID, Dosing Weight 113.636, kg, Start date: 08/14/14 11:30:00, Duration: 30 day, Stop date: 09/13/14 9:00:00 Notes: (Same as: Prinivil, Zestril) Start Date: 08/14/14 Stop Date: 08/17/14 Status: Discontinuedlisinopril 10 mg oral tablet 10 mg=1 tab, PO, Daily, # 60 tab, 0 Refill(s) Start Date: 08/17/14 Status: OrderedLopressor 5 mg, 5 mL, Route: IVP, Drug form: INJ, Q6H, Dosing Weight 96.96, kg, PRN Other -See Comment, Start date: 08/15/14 18:34:00, Duration: 30 day, Stop date: 18:33:00, HR >/=100 OR SBP >/=175 Notes: (Same as: Lopressor)Push over 2 minutes Start Date: 08/15/14 Stop Date: 08/17/14 Status: Discontinuedmagnesium oxide 400 mg, 1 tab, Route: PO, Drug form: TAB, BID, Dosing Weight 113.636, kg, Start date: 08/14/14 11:30:00, Duration: 30 day, Stop date: 09/13/14 9:00:00 Notes: (Same as: Mag-Ox 400)Magnesium oxide [id number] elemental magnesiumDose= ____mg magnesium oxide (___mg elemental magnesium) Start Date: 08/14/14 Stop Date: 08/17/14 Status: DiscontinuedMedrol Dosepak 4 mg Tablet As directed on package instructions, PO, Daily, Take with or without food, # 1 Pack, 0 Refill(s) Special Instructions: Take with or without food Start Date: 08/17/14 Status: OrderedmetFORMIN 500 mg oral tablet 500 mg=1 tab, PO, BID, # 60 tab, 0 Refill(s) Start Date: 08/17/14 Status: Orderedmorphine Sulfate 2 mg, 1 mL, Route: IVP, Drug form: INJ, Q6H, Dosing Weight 96.96, kg, PRN Pain Score 4-6, Start date: 08/15/14 16:15:00, Duration: 30 day, Stop date: 09/14/14 16:14:00 Notes: (Same as:MORPhine Sulfate) Start Date: 08/15/14 Stop Date: 08/17/14 Status: Discontinuedmorphine Sulfate 1 mg, 0.5 mL, Route: IVP, Drug form: INJ, ONCE, Dosing Weight 96.96, kg, PRN as needed for pain, Priority: STAT, Start date: 08/15/14 16:15:00 Notes: (Same as:MORPhine Sulfate) Start Date: 08/15/14 Stop Date: 08/15/14 Status: Completedmultivitamin 1 tab, Route: PO, Drug Form: TAB, BID, Start date: 08/15/14 21:00:00, Duration: 2 day, Stop date: 08/17/14 9:00:00 Notes: Same as Cerefolin NAC Non-formulary item Start Date: 08/15/14 Stop Date: 08/17/14 Status: Completednitroglycerin 0.4 mg/hr transdermal film 1 patch, Route: Transdermal, Drug Form: ERFILM, Dosing Weight 113.636, kg, ONCE , Start date: 08/14/14 7:45:00, Stop date: 08/14/14 7:45:00 Notes: Apply only once for up to 12 hours in a 24 hour period (12 hours on and 12 hours off.)(Same as:Nitro-Dur,Deponit,Transderm Nitro) For topical use only. "Remove old patch before application of new patch" Start Date: 08/14/14 Stop Date: 08/14/14 Status: Discontinuedondansetron 4 mg, 2 mL, Route: IVP, Drug form: INJ, Q6H, Dosing Weight 113.636, kg, PRN Nausea & Vomiting, Start date: 08/14/14 10:53:00, Duration: 30 day, Stop date: 09/13/14 10:52:00 Notes: (Same as: Zofran) Start Date: 08/14/14 Stop Date: 08/17/14 Status: DiscontinuedRocephin + Sodium Chloride 0.9% IV 100 mL 1 gm, Route: IVPB, ONCE, Dosing Weight 113.636, kg, Priority: STAT, Start date: 08/14/14 8:27:00, Stop date: 08/14/14 8:27:00 Notes: (Same As: Rocephin). Use with 100ml NS mini-bag PLUS and infuse over 30 min Start Date: 08/14/14 Stop Date: 08/14/14 Status: CompletedSaline Flush 0.9% 10 mL, Route: IVP, Drug Form: INJ, Dosing Weight 113.636, kg, PRN, PRN Line Flush, Start date: 08/14/14 7:28:00, Duration: 1 day, Stop date: 08/15/14 7:27: 00 Notes: (Same as: BD Posiflush) Start Date: 08/14/14 Stop Date: 08/15/14 Status: Completedsimvastatin 40 mg, 2 tab, Route: PO, Drug form: TAB, Bedtime, Dosing Weight 96.96, kg, Start date: 08/14/14 21:00:00, Duration: 30 day, Stop date: 09/12/14 21:00:00 Notes: (Same as: Zocor) Start Date: 08/14/14 Stop Date: 08/17/14 Status: Discontinuedsimvastatin 40 mg oral tablet 40 mg=, PO, Bedtime, # 30 tab, 0 Refill(s) Start Date: 08/17/14 Status: OrderedSodium Chloride 0.9% (Bolus) IV 1,000 mL, 1000 ml/hr, Infuse Over: 1 hr, Route: IV, 1,000, Drug form: INJ, ONCE , Priority: STAT, Dosing Weight 113.636 kg, Start date: 08/14/14 7:28:00, Duration: 1 doses or times, Stop date: 08/14/14 7:28:00 Start Date: 08/14/14 Stop Date: 08/14/14 Status: CompletedTamiflu 75 mg, 1 cap, Route: PO, Drug form: CAP, [id number], Dosing Weight 113.636, kg, CrCl >=30 ml/hr, Start date: 08/14/14 11:00:00, Duration: 5 day, Stop date: 23:00:00 Notes: Take with food.Same as: Tamiflu) Start Date: 08/14/14 Stop Date: 08/17/14 Status: Discontinuedtramadol 50 mg oral tablet 50 mg=1 tab, PO, Q6H, # 30 tab, 0 Refill(s) Start Date: 08/17/14 Status: Orderedtramadol 50 mg oral tablet 50 mg, 1 tab, Route: PO, Drug form: TAB, Q4H, Dosing Weight 96.96, kg, PRN Pain Score 1-3, Start date: 08/14/14 19:53:00, Duration: 30 day, Stop date: 09/13/14 19:52:00 Notes: Not to exceed 400mg/day. (Same As: Ultram) Start Date: 08/14/14 Stop Date: 08/17/14 Status: Discontinuedvancomycin + Dextrose 5% in Water IV 250 mL 1.25 gm, Route: IVPB, [id number], Start date: 08/17/14 6:00:00, Duration: 30 day, Stop date: 09/15/14 18:00:00 Notes: (Same As: Vancocin) Infusion rate< 1000 mg: infuse over 1 [id number] - 1500 mg: infuse over1.5 [id number] - 2000 mg: infuse over 2 hours> 2001 mg: infuse over 2.5 hours Start Date: 08/17/14 Stop Date: 08/17/14 Status: Discontinuedvancomycin + Dextrose 5% in Water IV 250 mL 1.5 gm, Route: IVPB, ONCE, Start date: 08/16/14 18:00:00, Stop date: 08/16/14 18 :00:00 Notes: (Same As: Vancocin) Infusion rate< 1000 mg: infuse over 1 [id number] - 1500 mg: infuse over1.5 [id number] - 2000 mg: infuse over 2 hours> 2001 mg: infuse over 2.5 hours Start Date: 08/16/14 Stop Date: 08/16/14 Status: CompletedVancomycin Pharmacy Dosing 1 ea, Route: MISC, Dosing Weight 96.96, kg, ONCALL, STAT, Start date: 08/16/14 16:33:00, Duration: 1doses or times, Pharmacy to dose Special Instructions: Pharmacy to dose Start Date: 08/16/14 Stop Date: 08/16/14 Status: DeletedVasotec 1.25 mg, 1 mL, Route: IVP, Drug form: INJ, Q8H, Dosing Weight 96.96, kg, PRN Other -See Comment, PRNSBP >/=160, Start date: 08/15/14 18:42:00, Duration: 30 day, Stop date: 09/14/14 18:41:00 Notes: (Same as: Vasotec-IV) Start Date: 08/15/14 Stop Date: 08/17/14 Status: DiscontinuedXanax 0.5 mg oral tablet 0.5 mg=1 tab, PO, TID, Anxiety, # 24 tab, 0 Refill(s) Start Date: 08/17/14 Status: OrderedZithromax 500 mg, 250 mL, Route: IVPB, Drug form: PDR/INJ, ONCE, Dosing Weight 113.636, kg , Priority: STAT, Start date: 08/14/14 8:27:00, Stop date: 08/14/14 8:27:00 Notes: Same as: Zithromax Start Date: 08/14/14 Stop Date: 08/14/14 Status: CompletedZosyn + Sodium Chloride 0.9% IV 100 mL 3.375 gm, Route: IVPB, [id number], Dosing Weight 96.96, kg, Start date: 08/16/14 12 :00:00, Duration: 30day, Stop date: 09/12/14 12:00:00 Notes: (Same as: Zosyn) Dosing based on Piperacillin component Start Date: 08/16/14 Stop Date: 08/17/14 Status: Discontinued Results ELECTROLYTES Most recent to oldest 1 2 3 [Reference Range]: Sodium Lvl [135-145 mEq/L] 138 mEq/L 137 mEq/L 136 mEq/L (08/17/14 4:42 AM) (1/15/15 3:57 AM) (08/15/14 4:15 PM) Potassium Lvl [3.5-5.1 3.9 mEq/L 3.6 mEq/L 3.7 mEq/L mEq/L] (08/17/14 4:42 AM) (08/16/14 3:57 AM) (08/15/14 4:15 PM) Chloride Lvl [95-109 mEq/L] 105 mEq/L 104 mEq/L 104 mEq/L (08/17/14 4:42 AM) (08/16/14 3:57 AM) (08/15/14 4:15 PM) CO2 [24-32 mEq/L] 24 mEq/L 24 mEq/L 22 mEq/L (08/17/14 4:42 AM) (08/16/14 3:57 AM) *LOW* (08/15/14 4:15 PM) AGAP [10.0-20.0 mEq/L] 12.9 mEq/L 12.6 mEq/L 13.7 mEq/L (08/17/14 4:42 AM) (08/16/14 3:57 AM) (08/15/14 4:15 PM) CHEM PANEL Most recent to oldest 1 2 3 [Reference Range]: Creatinine Lvl [0.5-1.4 1.1 mg/dL 1.1 mg/dL 1.1 mg/dL mg/dL] (08/17/14 4:42 AM) (08/16/14 3:57 AM) (08/15/14 4:15 PM) eGFR 93 mL/min/1.73m2 1 93 mL/min/1.73m2 2 93 mL/min/1.73m2 3 *NA* *NA* *NA* (08/17/14 4:42 AM) (08/16/14 3:57 AM) (08/15/14 4:15 PM) BUN [7-22 mg/dL] 11 mg/dL 10 mg/dL 12 mg/dL (08/17/14 4:42 AM) (08/16/14 3:57 AM) (08/15/14 4:15 PM) B/C Ratio [6-25] 8 (08/14/14 8:49 AM) Glucose Lvl [70-99 mg/dL] 122 mg/dL 4 121 mg/dL 5 96 mg/dL 6 *HI* *HI* (08/15/14 4:15 PM) (08/17/14 4:42 AM) (08/16/14 3:57 AM) Total Protein [6.4-8.4 g/dL] 7.5 g/dL (08/14/14 8:49 AM) Albumin Lvl [3.5-5.0 g/dL] 3.8 g/dL (08/14/14 8:49 AM) Globulin [2.0-4.0 g/dL] 3.7 g/dL (08/14/14 8:49 AM) A/G Ratio [0.7-1.6] 1.0 (08/14/14 8:49 AM) Calcium Lvl [8.5-10.5 mg/dL] 8.4 mg/dL 8.3 mg/dL 8.5 mg/dL *LOW* *LOW* (08/15/14 4:15 PM) (08/17/14 4:42 AM) (08/16/14 3:57 AM) Phosphorus [2.5-4.5 mg/dL] 3.8 mg/dL 2.8 mg/dL 1.8 mg/dL (08/17/14 4:42 AM) (08/16/14 3:57 AM) *LOW* (08/15/14 4:15 PM) Magnesium Lvl [1.8-2.4 mg/dL] 2.2 mg/dL 2.0 mg/dL 1.9 mg/dL (08/17/14 4:42 AM) (08/16/14 3:57 AM) (08/15/14 4:15 PM) ALT [0-65 unit/L] 27 unit/L (08/14/14 8:49 AM) AST [0-37 unit/L] 33 unit/L (08/14/14 8:49 AM) Alk Phos [39-136 unit/L] 112 unit/L (08/14/14 8:49 AM) Bili Total [0.2-1.3 mg/dL] 0.8 mg/dL (08/14/14 8:49 AM) Lactic Acid Lvl [0.5-2.2 1.2 mMol/L mMol/L] (08/14/14 8:49 AM) Procalcitonin Lvl [0.00-0.10 0.26 ng/mL 0.05 ng/mL ng/mL] *HI* (08/14/14 8:49 AM) (08/17/14 4:42 AM) 1Result Comment: The eGFR is calculated [...] values reflect the clinical guidelines of the [place] [employer].5Interpretive Data: Adult reference range values reflect the clinical guidelines of the [place] [employer].6Interpretive Data: Adult reference range values reflect the clinical guidelines of the [place] [employer].CARDIAC ENZYMES Most recent to oldest 1 2 3 [Reference Range]: Total CK [12-191 unit/L] 497 unit/L 516 unit/L 493 unit/L *HI* *HI* *HI* (08/16/14 3:57 AM) (08/15/14 4:15 PM) (08/15/14 11:55 AM) CK MB [0.5-3.6 ng/mL] 5.6 ng/mL *HI* (08/14/14 8:49 AM) CK MB Index [0.0-2.5] 0.8 (08/14/14 8:49 AM) Troponin-I [0.00-0.40 0.06 ng/mL 0.04 ng/mL 0.04 ng/mL ng/mL] (08/16/14 3:57 AM) (08/15/14 4:15 PM) (08/15/14 11:55 AM) BNP [<=100 pg/mL] 204 pg/mL 7 94 pg/mL 8 *HI* (08/14/14 8:49 AM) (08/16/14 3:57 AM) 7Interpretive Data: Elevated results are in line with increasing severity of congestive heart failure. Minor elevations between 100 and 300 may be seen with Myocardial Ischemia, Sodium retaining drugs, and compensated/treated heart failure.8Interpretive Data: Elevated results are in line with increasing severity of congestive heart failure. Minor elevations between 100 and 300 may be seen with Myocardial Ischemia, Sodium retaining drugs, and compensated/treated heart failure.DRUG SCREEN Most recent to oldest [Reference Range]: 1 2 3 U Amph Scr [Negative] Negative *NA* (08/15/14 4:00 AM) U Armida Scr [Negative] Negative *NA* (08/15/14 4:00 AM) U Benzodia Scr [Negative] Negative *NA* (08/15/14 4:00 AM) U Cocaine Scr [Negative] Negative *NA* (08/15/14 4:00 AM) U Opiate Scr [Negative] Negative *NA* (08/15/14 4:00 AM) U Phencyc Scr [Negative] Negative *NA* (08/15/14 4:00 AM) U Cannab Scr [Negative] Negative *NA* (08/15/14 4:00 AM) UDS Note See Note 9 *NA* (08/15/14 4:00 AM) 9Interpretive Data: Drugs reported as positive have not been confirmed by a second method and should be used for medical purposes only. To order confirmation, contact laboratory. note: Below are cut-off concentrations for all urine drugs of abuse performed in the laboratory. Some drugs listed in the table may not be included in this panel. Description Cut-off concentration Amphetamine 1000 ng/mL Barbiturates 200 ng/mL Benzodiazepines 300 ng/mL Cocaine metabolites 300 ng/mL Opiates 300 ng/mL Phencyclidine 25 ng/mL Propoxyphene 300 ng/mL Marijuana metabolites 50 ng/mL Methadone 300 ng/mL Urine alcohol 20 mg/dLURINE AND STOOL Most recent to oldest [Reference Range]: 1 2 3 UA Turbidity [Clear] Clear (08/14/14 9:25 AM) UA Color [Yellow] Yellow *NA* (08/14/14 9:25 AM) UA pH [5.0-8.0] 6.0 (08/14/14 9:25 AM) UA Spec Grav [<=1.030] 1.025 (08/14/14 9:25 AM) UA Glucose [Negative] Negative (08/14/14 9:25 AM) UA Blood [Negative] Negative (08/14/14 9:25 AM) UA Ketones [Negative mg/dL] 15 mg/dL *ABN* (08/14/14 9:25 AM) UA Protein [Negative mg/dL] 30 mg/dL *ABN* (08/14/14 9:25 AM) UA Urobilinogen [0.1-1.0 EU/dL] 1.0 EU/dL (08/14/14 9:25 AM) UA Bili [Negative] Negative *NA* (08/14/14 9:25 AM) UA Leuk Est [Negative] Negative (08/14/14 9:25 AM) UA Nitrite [Negative] Negative (08/14/14 9:25 AM) UA WBC [None Seen] None Seen (08/14/14 9:25 AM) UA RBC [0-2] None Seen (08/14/14 9:25 AM) UA Bacteria [None Seen] None Seen (08/14/14 9:25 AM) UA Sq Epi [Few /LPF] Occasional /LPF (08/14/14 9:25 AM) UA Fine Gran [None Seen /LPF] 0-2 /LPF *ABN* (08/14/14 9:25 AM) UA Mucus [None Seen /LPF] Many /LPF *ABN* (08/14/14 9:25 AM) HEMATOLOGY Most recent to oldest 1 2 3 [Reference Range]: WBC [3.7-10.4 K/CMM] 10.0 K/CMM 14.8 K/CMM 14.1 K/CMM (08/17/14 4:42 AM) *HI* *HI* (08/16/14 3:57 AM) (08/15/14 4:15 PM) RBC [4.70-6.10 M/CMM] 3.89 M/CMM 4.44 M/CMM 4.61 M/CMM *LOW* *LOW* *LOW* (08/17/14 4:42 AM) (08/16/14 3:57 AM) (08/15/14 4:15 PM) Hgb [14.0-18.0 g/dL] 11.4 g/dL 12.6 g/dL 12.8 g/dL *LOW* *LOW* *LOW* (08/17/14 4:42 AM) (08/16/14 3:57 AM) (08/15/14 4:15 PM) Hct [42.0-54.0 %] 34.8 % 39.5 % 41.1 % *LOW* *LOW* *LOW* (08/17/14 4:42 AM) (08/16/14 3:57 AM) (08/15/14 4:15 PM) MCV [80.0-94.0 fL] 89.3 fL 89.1 fL 89.2 fL (08/17/14 4:42 AM) (08/16/14 3:57 AM) (08/15/14 4:15 PM) MCH [27.0-31.0 pg] 29.2 pg 28.3 pg 27.8 pg (08/17/14 4:42 AM) (08/16/14 3:57 AM) (08/15/14 4:15 PM) MCHC [32.0-36.0 g/dL] 32.7 g/dL 31.7 g/dL 31.1 g/dL (08/17/14 4:42 AM) *LOW* *LOW* (08/16/14 3:57 AM) (08/15/14 4:15 PM) RDW [11.5-14.5 %] 16.2 % 16.2 % 16.4 % *HI* *HI* *HI* (08/17/14 4:42 AM) (08/16/14 3:57 AM) (08/15/14 4:15 PM) Platelet [133-450 K/CMM] 222 K/CMM 249 K/CMM 267 K/CMM (08/17/14 4:42 AM) (08/16/14 3:57 AM) (08/15/14 4:15 PM) MPV [7.4-10.4 fL] 9.6 fL 9.4 fL 9.4 fL (08/17/14 4:42 AM) (08/16/14 3:57 AM) (08/15/14 4:15 PM) Segs [45.0-75.0 %] 72.5 % 81.9 % 81.4 % (08/17/14 4:42 AM) *HI* *HI* (08/16/14 3:57 AM) (08/15/14 4:15 PM) Lymphocytes [20.0-40.0 %] 13.2 % 8.0 % 8.6 % *LOW* *LOW* *LOW* (08/17/14 4:42 AM) (08/16/14 3:57 AM) (08/15/14 4:15 PM) Monocytes [2.0-12.0 %] 10.7 % 8.7 % 7.5 % (08/17/14 4:42 AM) (08/16/14 3:57 AM) (08/15/14 4:15 PM) Eosinophils [0.0-4.0 %] 2.7 % 0.6 % 1.1 % (08/17/14 4:42 AM) (08/16/14 3:57 AM) (08/15/14 4:15 PM) Basophils [0.0-1.0 %] 0.9 % 0.8 % 1.4 % (08/17/14 4:42 AM) (08/16/14 3:57 AM) *HI* (08/15/14 4:15 PM) Segs-Bands # [1.5-8.1 K/CMM] 7.3 K/CMM 12.1 K/CMM 11.4 K/CMM (08/17/14 4:42 AM) *HI* *HI* (08/16/14 3:57 AM) (08/15/14 4:15 PM) Lymphocytes # [1.0-5.5 1.3 K/CMM 1.2 K/CMM 1.2 K/CMM K/CMM] (08/17/14 4:42 AM) (08/16/14 3:57 AM) (08/15/14 4:15 PM) Monocytes # [0.0-0.8 K/CMM] 1.1 K/CMM 1.3 K/CMM 1.1 K/CMM *HI* *HI* *HI* (08/17/14 4:42 AM) (08/16/14 3:57 AM) (08/15/14 4:15 PM) Eosinophils # [0.0-0.5 0.3 K/CMM 0.1 K/CMM 0.2 K/CMM K/CMM] (08/17/14 4:42 AM) (08/16/14 3:57 AM) (08/15/14 4:15 PM) Basophils # [0.0-0.2 K/CMM] 0.1 K/CMM 0.1 K/CMM 0.2 K/CMM (08/17/14 4:42 AM) (08/16/14 3:57 AM) (08/15/14 4:15 PM) Anisocyte [None Seen] 1+ *ABN* (08/14/14 8:49 AM) Plt Morph Normal (08/14/14 8:49 AM) PT [12.0-14.7 seconds] 13.3 seconds (08/14/14 8:49 AM) INR [0.85-1.17] 1.01 10 (08/14/14 8:49 AM) PTT [22.9-35.8 seconds] 31.0 seconds 11 (08/14/14 8:49 AM) 10Interpretive Data: RECOMMENDED RANGES FOR PROTIME INR: 2.0-3.0 for most medical and surgical thromboembolic states. 2.5-3.5 for artificial heart valves and recurrent embolism. INR SHOULD BE USED ONLY FOR PATIENTS ON STABLE ANTICOAGULANT THERAPY.11Interpretive Data: Heparin Therapeutic Range: 57 - 92 SecondsMOLECULAR DIAGNOSTIC Most recent to oldest [Reference Range]: 1 2 3 Source Adenovirus PCR [employer]END[employer] Swab (08/15/14 11:56 PM) Adenovirus PCR [Negative] Negative 12 (08/15/14 11:56 PM) Source Parainfluenza Virus PCR [employer] ATTEND[employer] Swab (08/15/14 11:56 PM) Parainfluenza 1 PCR [Negative] Negative (08/15/14 11:56 PM) Parainfluenza 2 PCR [Negative] Negative (08/15/14 11:56 PM) Parainfluenza 3 PCR [Negative] Negative 13 (08/15/14 11:56 PM) Source Respiratory Panel PCR [employer] ATTEND[employer] Swab (08/15/14 11:56 PM) Influenza A PCR [Negative] Negative (08/15/14 11:56 PM) Influenza B PCR [Negative] Negative (08/15/14 11:56 PM) RSV PCR [Negative] Negative 14 (08/15/14 11:56 PM) 12Interpretive Data: The Adenovirus PCR assay is a multiplex Real-Time PCR test for the detection of the human Adenovirus. The test detects but does not differentiate serotypes 1-51. A negative result does not rule out the presence of virus. The specimen may contain polymerase chain reaction (PCR) inhibitors or virus below the detectable limits of the assay. Results should not be used as the sole basis for clinical diagnosis, treatment or patient management. This assay utilizes FDA cleared IVD reagents for Real-Time nucleic acid amplification (PCR). Performance characteristics have been verified by the [facility] within [facility]. The Molecular Diagnostic Laboratory is authorized under the Clinical Laboratory Improvement Amendments of 1988 (CLIA-88) to perform high complexity testing.13Interpretive Data: The Parainfluenza PCR assay is a multiplex Real-Time PCR test for the detection and discrimination of the Parainfluenza 1 Virus, Parainfluezna 2 Virus and the Parainfluenza 3 Virus. This assay targets the conserved regions of the Hemagglutinin-Neuraminidase (HN) gene of the HPIV-1, HPIV-2 and HPIV-3, respectively. This test is not intended to detect Parainfluenza 4a or Parainfluenza 4b Viruses. A negative result does not rule out the presence of virus. The specimen may contain polymerase chain reaction (PCR) inhibitors or virus below the detectable limits of the assay. Results should not be used as the sole basis for clinical diagnosis, treatment or patient management. This assay utilizes FDA cleared IVD reagents for Real-Time nucleic acid amplification (PCR). Performance characteristics have been verified by the [facility] within [facility]. The Molecular Diagnostic Laboratory is authorized under the Clinical Laboratory Improvement Amendments of 1988 (CLIA-88) to perform high complexity testing.14Interpretive Data: Gen-Probe Prodesse ProFlu plus assay is a multiplex real-time PCR test for the qualitative detection and discrimination of Influenza A Virus, Influenza B Virus, and Respiratory Syncytial Virus. A negative result does not rule out the presence of these viruses. The specimen may contain polymerase chain reaction (PCR) inhibitors or virus below the detectable limits of the assay. Results should not be used as the sole basis for clinical diagnosis, treatment, or patient management. This assay utilizes FDA cleared IVD reagents for Real-Time nucleic acid amplification (PCR). Performance characteristics have been verified by the [facility] within [facility]. The Molecular Diagnostic Laboratory is authorized under the Clinical Laboratory Improvement Amendments of 1988 (CLIA-88) to perform high complexity testing.BACTERIAL - SEROLOGY Most recent to oldest [Reference Range]: 1 2 3 U S pneumo Ag [Negative] Negative (08/14/14 9:57 AM) VIRAL - SEROLOGY Most recent to oldest [Reference Range]: 1 2 3 Influ A [Negative] Negative (08/14/14 8:49 AM) Influ B [Negative] Negative 15 (08/14/14 8:49 AM) 15Interpretive Data: Influenza A&B Antigen: Due to the low sensitivity of this test a negative result does not exclude influenza virus infection. A diagnosis of influenza should be considered based on a patient's clinical presentation and empiric antiviral treatment should be considered, if indicated. If more conclusive testing is desired, follow-up confirmatory testing with either viral culture or PCR is warranted. Medications Administered During Your Visit No data available for this section Immunizations Vaccine Date Refusal Reason diphtheria/pertussis, acel/tetanus adult 05/09/14 influenza virus vaccine, inactivated 05/12/14 influenza virus vaccine, inactivated 07/21/13 tuberculin purified protein derivative1 07/18/13 1Result Comment: given in left forearm Procedures Procedure Type Body Site Date of Procedure Related Diagnosis Hand repair Social History Social History Type Response Substance [...] Status Current every day smoker, Type: Cigarettes, Previous treatment: None, Ready to change: No, Concerns about tobacco use in household: No, Exposure to Tobacco Smoke None, Cigarette Smoking Last 365 Days Yes, Reg Smoking Cessation Counseling Yes 11 beer a day. Assessment and Plan Extracted from: Title: WORK EXCUSE Author: Evan Schmitz DO Date: 08/17/14 EXCUSE PATIENT FROM WORK FROM 08/14 - 08/20/2014 DUE TO HOSPITALIZATION WARRANTING SUBSEQUENT RECOVERY TIME AT HOME. HE MAY RETURN TO WORK ON 08/23/2014 WITHOUT RESTRICTIONS. Extracted from: Title: Admission H&P Obi Author: Abilio Francois MD Date: 08/14/14 Impression and Plan Sepsis: Given tachycardia, fever and leucocytosis. Acute Respiratory Insufficiency: wean oxygen as tolerated. Community acquired pneumonia: Continue antibiotic therapy with Rocephin and azithromycin. Possible Influenza infection: start tamiflu. Flu screen is negative though Accelerated HTN: Due to non compliance. patient has not been on medication for more than 1 month. cardiomyopathy of unclear etiology: Re initiate BECKY and coreg. Hypomagnesemia: we will replete and Check in the am. Tobacco abuse disorder DM: Start sliding scale insulin. Nausea and vomiting Myalgia: ? due to influenza infection.
--- OUTSIDE RECORDS SUMMARY | 2018-08-27 17:29 | XMS REPORT | Summary of Care ---
:1965 Author Encounter MIHAI Banks(PANDA) [id number] Date(s): 11/22/14 - 11/22/14 [facility] [address] [place] [address]- [phone] Discharge Diagnosis: Muscle strain Discharge Diagnosis: Flank pain Discharge Disposition: Home Physician Attending: Kristen Harris MD Vital Signs Most recent to oldest [Reference Range]: 1 2 Height 165.1 cm (11/22/14 11:06 AM) Temperature Oral [96.4-99.1 DegF] 98.5 DegF (11/22/14 11:06 AM) Blood Pressure [90-140/60-90 mmHg] 166/90 mmHg 173/112 mmHg *HI* *HI* (11/22/14 1:01 PM) (11/22/14 11:06 AM) Respiratory Rate [14-20 BRMIN] 16 BRMIN 20 BRMIN (11/22/14 1:01 PM) (11/22/14 11:06 AM) Peripheral Pulse Rate [60-100 bpm] 68 bpm 77 bpm (11/22/14 1:01 PM) (11/22/14 11:06 AM) Weight 93.835 kg (11/22/14 11:06 AM) Body Mass Index 34.42 m2 (11/22/14 11:06 AM) Problem List Condition Effective Dates Status Health Status Informant CHF (congestive heart 2013 Active failure)(Confirmed) Diabetes(Confirmed) Resolved HTN - Hypertension(Confirmed) Active Hypercholesterolemia(Confirmed) Active Allergies, Adverse Reactions, Alerts Substance Reaction Severity Status NKDA Active Medications Anaprox-DS 550 mg oral tablet 550 mg=1 tab, PO, BID, PRN Pain, X 10 day, # 20 tab, 0 Refill(s) Start Date: 11/22/14 Stop Date: 12/02/14 Status: Orderedcarvedilol PO, 0 Refill(s) Start Date: 11/22/14 Status: OrderedFlexeril 10 mg oral tablet 10 mg=1 tab, PO, TID, PRN for spasm/back pain, X 5 day, # 15 tab, 0 Refill(s) Start Date: 11/22/14 Stop Date: 11/27/14 Status: Orderedhydrochlorothiazide PO, Daily, 0 Refill(s) Start Date: 11/22/14 Status: OrderedketOROLAC 30 mg, Route: IVP, ONCE, Dosing Weight 93.835, kg, Priority: STAT, Start date: 11/22/14 11:18:00, Stop date: 11/22/14 11:18:00 Start Date: 11/22/14 Stop Date: 11/22/14 Status: Completedlisinopril PO, Daily, 0 Refill(s) Start Date: 11/22/14 Status: OrderedmetFORMIN PO, 0 Refill(s) Start Date: 11/22/14 Status: Orderedmorphine Sulfate 4 mg, Route: IVP, ONCE, Dosing Weight 93.835, kg, Priority: STAT, Start date: 11:18:00, Stop date: 11/22/14 11:18:00 Start Date: 11/22/14 Stop Date: 11/22/14 Status: Completedondansetron 4 mg, Route: IVP, ONCE, Dosing Weight 93.835, kg, Priority: STAT, Start date: 11:18:00, Stop date: 11/22/14 11:18:00 Start Date: 11/22/14 Stop Date: 11/22/14 Status: CompletedSaline Flush 0.9% 10 mL, Route: IVP, Drug Form: INJ, Dosing Weight 93.835, kg, PRN, PRN Line Flush , Start date: 11/22/14 11:18:00, Duration: 12 hr, Stop date: 11/22/14 23:17:00 Notes: (Same as: BD Posiflush) Start Date: 11/22/14 Stop Date: 11/22/14 Status: Discontinuedsimvastatin PO, Bedtime, 0 Refill(s) Start Date: 11/22/14 Status: OrderedSodium Chloride 0.9% (Bolus) IV 1,000 mL, Infuse Over: 1 hr, Route: IV, ONCE, Priority: STAT, Dosing Weight 93.835 kg, Start date: 11/22/14 11:18:00, Duration: 1 doses or times, Stop date : 11/22/14 11:18:00 Start Date: 11/22/14 Stop Date: 11/22/14 Status: CompletedTylenol with Codeine #4 oral tablet 1 - 2 tab, PO, Q4H, PRN Pain, X 2 day, # 12 tab, 0 Refill(s) Start Date: 11/22/14 Stop Date: 11/24/14 Status: Completed Results ELECTROLYTES Most recent to oldest [Reference Range]: 1 Sodium Lvl [135-145 mEq/L] 139 mEq/L (11/22/14 11:30 AM) Potassium Lvl [3.5-5.1 mEq/L] 3.6 mEq/L (11/22/14 11:30 AM) Chloride Lvl [95-109 mEq/L] 103 mEq/L (11/22/14 11:30 AM) CO2 [24-32 mEq/L] 30 mEq/L (11/22/14 11:30 AM) AGAP [10.0-20.0 mEq/L] 9.6 mEq/L *LOW* (11/22/14 11:30 AM) CHEM PANEL Most recent to oldest [Reference Range]: 1 Creatinine Lvl [0.5-1.4 mg/dL] 0.9 mg/dL (11/22/14 11:30 AM) eGFR 117 mL/min/1.73m2 1 *NA* (11/22/14 11:30 AM) BUN [7-22 mg/dL] 8 mg/dL (11/22/14 11:30 AM) B/C Ratio [6-25] 9 (11/22/14 11:30 AM) Glucose Lvl [70-99 mg/dL] 86 mg/dL 2 (11/22/14 11:30 AM) Total Protein [6.4-8.4 g/dL] 8.5 g/dL *HI* (11/22/14 11:30 AM) Albumin Lvl [3.5-5.0 g/dL] 4.2 g/dL (11/22/14 11:30 AM) Globulin [2.0-4.0 g/dL] 4.3 g/dL *HI* (11/22/14 11:30 AM) A/G Ratio [0.7-1.6] 1.0 (11/22/14 11:30 AM) Calcium Lvl [8.5-10.5 mg/dL] 9.0 mg/dL (11/22/14 11:30 AM) ALT [0-65 unit/L] 57 unit/L (11/22/14 11:30 AM) AST [0-37 unit/L] 83 unit/L *HI* (11/22/14 11:30 AM) Alk Phos [39-136 unit/L] 106 unit/L (11/22/14 11:30 AM) Bili Total [0.2-1.3 mg/dL] 0.4 mg/dL (11/22/14 11:30 AM) Lipase Lvl [73-393 unit/L] 77 unit/L (11/22/14 11:30 AM) 1Result Comment: The eGFR is calculated [...] values reflect the clinical guidelines of the [place] [employer].URINE AND STOOL Most recent to oldest [Reference Range]: 1 UA Turbidity [Clear] Clear (11/22/14 11:38 AM) UA Color [Yellow] Yellow *NA* (11/22/14 11:38 AM) UA pH [5.0-8.0] 6.5 (11/22/14 11:38 AM) UA Spec Grav [<=1.030] 1.025 (11/22/14 11:38 AM) UA Glucose [Negative] Negative (11/22/14 11:38 AM) UA Blood [Negative] Negative (11/22/14 11:38 AM) UA Ketones [Negative] Trace *ABN* (11/22/14 11:38 AM) UA Protein [Negative mg/dL] 30 mg/dL *ABN* (11/22/14 11:38 AM) UA Urobilinogen [0.1-1.0 EU/dL] 2.0 EU/dL *HI* (11/22/14 11:38 AM) UA Bili [Negative] Small *ABN* (11/22/14 11:38 AM) UA Leuk Est [Negative] Negative (11/22/14 11:38 AM) UA Nitrite [Negative] Negative (11/22/14 11:38 AM) UA Sq Epi [Few /LPF] Occasional /LPF (11/22/14 11:38 AM) UA Mucus [None Seen /LPF] Few /LPF (11/22/14 11:38 AM) HEMATOLOGY Most recent to oldest [Reference Range]: 1 WBC [3.7-10.4 K/CMM] 8.2 K/CMM (11/22/14 11:30 AM) RBC [4.70-6.10 M/CMM] 5.09 M/CMM (11/22/14 11:30 AM) Hgb [14.0-18.0 g/dL] 14.5 g/dL (11/22/14 11:30 AM) Hct [42.0-54.0 %] 43.9 % (11/22/14 11:30 AM) MCV [80.0-94.0 fL] 86.3 fL (11/22/14 11:30 AM) MCH [27.0-31.0 pg] 28.5 pg (11/22/14 11:30 AM) MCHC [32.0-36.0 g/dL] 33.0 g/dL (11/22/14 11:30 AM) RDW [11.5-14.5 %] 15.3 % *HI* (11/22/14 11:30 AM) Platelet [133-450 K/CMM] 263 K/CMM (11/22/14 11:30 AM) MPV [7.4-10.4 fL] 9.3 fL (11/22/14 11:30 AM) Segs [45.0-75.0 %] 72.8 % (11/22/14 11:30 AM) Lymphocytes [20.0-40.0 %] 17.4 % *LOW* (11/22/14 11:30 AM) Monocytes [2.0-12.0 %] 7.5 % (11/22/14 11:30 AM) Eosinophils [0.0-4.0 %] 1.5 % (11/22/14 11:30 AM) Basophils [0.0-1.0 %] 0.8 % (11/22/14 11:30 AM) Segs-Bands # [1.5-8.1 K/CMM] 6.0 K/CMM (11/22/14 11:30 AM) Lymphocytes # [1.0-5.5 K/CMM] 1.4 K/CMM (11/22/14 11:30 AM) Monocytes # [0.0-0.8 K/CMM] 0.6 K/CMM (11/22/14 11:30 AM) Eosinophils # [0.0-0.5 K/CMM] 0.1 K/CMM (11/22/14 11:30 AM) Basophils # [0.0-0.2 K/CMM] 0.1 K/CMM (11/22/14 11:30 AM) Immunizations Vaccine Date Refusal Reason diphtheria/pertussis, acel/tetanus adult 05/09/14 influenza virus vaccine, inactivated 05/12/14 influenza virus vaccine, inactivated 07/21/13 tuberculin purified protein derivative1 07/18/13 1Result Comment: given in left forearm Procedures Procedure Date Related Diagnosis Body Site Hand repair Social History Social History Type Response Substance Abuse Use: None. Employment/School Status: Employed. Alcohol Current, Type Beer. Frequency: Daily. Previous treatment: None. Alcohol use interferes with work or home: No. Drinks more than intended: No. Others hurt by drinking: No. Ready to change: No. Household alcohol concerns: No.1 Smoking Status Current every day smoker; Type: Cigarettes; Tobacco use per day : 8; Number of years: 25; Total pack years: 12; Previous treatment: None; Ready to change: No; Concerns about tobacco use in household: No; Exposure to Tobacco Smoke None; Other Tobacco Frequency 1/3 pack per day; Cigarette Smoking Last 365 Days Yes; Reg Smoking Cessation Counseling Yes 11 beer a day. Assessment and Plan No data available for this section
--- OUTSIDE RECORDS SUMMARY | 2018-08-27 17:29 | XMS REPORT | Summary of Care ---
:1965 Author Encounter [facility] Jocelyn(PANDA) [id number] Date(s): 05/09/14 - 05/13/[address] Discharge Disposition: Home Physician Attending: Radha Chu MD Physician Admitting: Radha Chu MD Physician_Referring: Jaskaran Yi MD Reason for Visit HAND INFECTION Vital Signs Most recent to oldest 1 2 3 [Reference Range]: Height 165.1 cm 165.1 cm 165.1 cm (05/09/14 6:38 AM) (05/09/14 5:42 AM) (05/09/14 2:58 AM) Temperature Oral [96.4-99.1 98.6 DegF 98.5 DegF 98.7 DegF DegF] (05/13/14 8:00 AM) (05/13/14 4:32 AM) (05/12/14 11:06 PM) Systolic Blood Pressure 120 mmHg 114 mmHg 128 mmHg [90-140 mmHg] (05/13/14 8:00 AM) (05/13/14 4:32 AM) (05/12/14 11:06 PM) Diastolic Blood Pressure 82 mmHg 76 mmHg 80 mmHg [60-90 mmHg] (05/13/14 8:00 AM) (05/13/14 4:32 AM) (05/12/14 11:06 PM) Respiratory Rate [14-20 20 BRMIN 20 BRMIN 18 BRMIN BRMIN] (05/13/14 8:00 AM) (05/13/14 4:32 AM) (05/12/14 11:06 PM) Peripheral Pulse Rate 78 bpm 85 bpm 82 bpm [60-100 bpm] (05/13/14 8:00 AM) (05/13/14 4:32 AM) (05/12/14 11:06 PM) Weight 97.727 kg 97.727 kg 113.636 kg (05/09/14 6:38 AM) (05/09/14 5:42 AM) (05/09/14 2:58 AM) Body Mass Index 35.85 m2 41.69 m2 (05/09/14 5:42 AM) (05/09/14 2:58 AM) Problem List Condition Effective Dates Status Health Status Informant CHF (congestive heart 2013 Active failure)(Confirmed) Diabetes(Confirmed) Resolved HTN - Hypertension(Confirmed) Active Hypercholesterolemia(Confirmed) Active Allergies, Adverse Reactions, Alerts Substance Reaction Severity Status NKDA Active Medications acetaminophen 650 mg, 2 tab, Route: PO, Drug form: TAB, Q4H, Dosing Weight 97.727, kg, PRN Pain 1-3/Temp > 100.4 F, Start date: 05/09/14 6:35:00, Duration: 30 day, Stop date: 06/08/14 6:34:00 Notes: Do not exceed 4 gm/day. (Same as: Tylenol) Start Date: 05/09/14 Stop Date: 05/11/14 Status: Discontinuedacetaminophen-hydrocodone 325 mg-10 mg oral tablet 1 tab, PO, Q4H, Pain Score 4-6, # 42 tab, 0 Refill(s), other Start Date: 05/13/14 Status: Orderedacetaminophen-hydrocodone 325 mg-10 mg oral tablet 1 tab, Route: PO, Drug Form: TAB, Dosing Weight 97.727, kg, Q4H, PRN Pain Score 4-6, Start date: 05/09/14 6:35:00, Duration: 30 day, Stop date: 06/08/14 6:34:00 Notes: Do not exceed 4gm/day of acetaminophen. (Same as: [place] 325/10) Start Date: 05/09/14 Stop Date: 05/13/14 Status: Discontinuedacetaminophen-hydrocodone 325 mg-5 mg oral tablet 1 tab, Route: PO, Drug Form: TAB, Dosing Weight 97.727, kg, Q4H, PRN Pain Score 1-3, Start date: 05/09/14 6:35:00, Duration: 30 day, Stop date: 06/08/14 6:34:00 Notes: (Same as: [place] 325/5) Do not exceed 4gm/day of acetaminophen. Start Date: 05/09/14 Stop Date: 05/13/14 Status: Discontinuedaspirin 81 mg, 1 tab, Route: PO, Drug form: ECTAB, Daily, Dosing Weight 97.727, kg, Start date: 05/09/14 9:00:00, Duration: 30 day, Stop date: 06/07/14 9:00:00 Notes: Do not crush or chew.(Same As: Ecotrin) Start Date: 05/09/14 Stop Date: 05/13/14 Status: Discontinuedaspirin 325 mg, 1 tab, Route: PO, Drug form: TAB, Daily, Dosing Weight 97.727, kg, Priority: NOW, Start date: 05/11/14 6:17:00, Duration: 30 day, Stop date: 9:00:00 Notes: Take with food. Start Date: 05/11/14 Stop Date: 05/13/14 Status: Discontinuedaspirin 81 mg tablet, enteric coated 81 mg=1 tab, PO, Daily, # 30 tab, 0 Refill(s) Start Date: 05/13/14 Status: Orderedatorvastatin 80 mg, 2 tab, Route: PO, Drug form: TAB, ONCE, Dosing Weight 97.727, kg, Priority: STAT, Start date:05/11/14 6:18:00, Stop date: 05/11/14 6:18:00 Notes: (Same as: Lipitor) Start Date: 05/11/14 Stop Date: 05/11/14 Status: CompletedAugmentin 875 mg oral tablet 1 tab, Route: PO, Drug Form: TAB, Dosing Weight 97.727, kg, Q12H, Start date: 21:00:00, Duration: 30 day, Stop date: 06/10/14 9:00:00 Notes: With food.(Same as: Augmentin 875) Start Date: 05/11/14 Stop Date: 05/13/14 Status: DiscontinuedAugmentin 875 mg oral tablet 1 tab, PO, Q12H, # 14 tab, 0 Refill(s) Start Date: 05/13/14 Status: OrderedBactrim DS 1 tab, Route: PO, Drug Form: TAB, Dosing Weight 97.727, kg, [id number], Start date : 05/11/14 19:00:00, Duration: 30 day, Stop date: 06/10/14 7:00:00 Notes: One DS tablet=trimethoprim 160mg + sulfamethoxazole 800 mgDose based on trimethoprim component On empty stomach with a glass of water. 1 hr before meals (Same As: Bactrim DS, Septra DS) Start Date: 05/11/14 Stop Date: 05/13/14 Status: Discontinuedcarvedilol 6.25 mg, 1 tab, Route: PO, Drug form: TAB, Q12H, Dosing Weight 97.727, kg, Start date: 05/09/14 9:00:00, Duration: 30 day, Stop date: 06/07/14 21:00:00 Notes: Give with food. (Same As: Coreg) Start Date: 05/09/14 Stop Date: 05/11/14 Status: Discontinuedcarvedilol 12.5 mg, 1 tab, Route: PO, Drug form: TAB, Q12H, Dosing Weight 97.727, kg, Start date: 05/11/14 21:00:00, Duration: 30 day, Stop date: 06/10/14 9:00:00 Notes: Give with food. (Same As: Coreg) Start Date: 05/11/14 Stop Date: 05/12/14 Status: Discontinuedcarvedilol 25 mg, 1 tab, Route: PO, Drug form: TAB, Q12H, Dosing Weight 97.727, kg, Start date: 05/12/14 21:00:00, Duration: 30 day, Stop date: 06/11/14 9:00:00 Notes: Give with food. (Same As: Coreg) Start Date: 05/12/14 Stop Date: 05/13/14 Status: Discontinuedcarvedilol 25 mg oral tablet 25 mg=1 tab, PO, Q12H, # 30 tab, 0 Refill(s) Start Date: 05/13/14 Status: OrderedcefTRIAXone 1 gm, Route: IVPB, Drug form: PDR/INJ, [id number], Dosing Weight 97.727, kg, Start date: 05/09/14 7:00:00, Duration: 30 day, Stop date: 06/07/14 7:00:00 Notes: (Same As: Rocephin). Use with 100ml NS mini-bag PLUS and infuse over 30 min Start Date: 05/09/14 Stop Date: 05/11/14 Status: DiscontinuedcefTRIAXone 1 gm, Route: IVPB, Drug form: PDR/INJ, ONCE, Dosing Weight 113.636, kg, Priority : STAT, Start date: 05/09/14 3:08:00, Stop date: 05/09/14 3:08:00 Notes: (Same As: Rocephin). Use with 100ml NS mini-bag PLUS and infuse over 30 min Start Date: 05/09/14 Stop Date: 05/09/14 Status: CompletedCoreg 6.25 mg, 1 tab, Route: PO, Drug form: TAB, ONCE, Dosing Weight 97.727, kg, Start date: 05/11/14 11:24:00, Stop date: 05/11/14 11:24:00 Notes: Give with food. (Same As: Coreg) Start Date: 05/11/14 Stop Date: 05/11/14 Status: CompletedCoreg 6.25 mg, 1 tab, Route: PO, Drug form: TAB, ONCE, Dosing Weight 97.727, kg, Start date: 05/11/14 13:46:00, Stop date: 05/11/14 13:46:00 Notes: Give with food. (Same As: Coreg) Start Date: 05/11/14 Stop Date: 05/11/14 Status: CompletedDextrose 50% Syringe 25 gm, 50 mL, Route: IVP, Drug Form: INJ, Dosing Weight 97.727, kg, PRN, PRN Blood Glucose Results, Start date: 05/09/14 6:36:00, Duration: 30 day, Stop date : 06/08/14 5:35:00 Start Date: 05/09/14 Stop Date: 05/13/14 Status: DiscontinuedDextrose 50% Syringe 12.5 gm, 25 mL, Route: IVP, Drug Form: INJ, Dosing Weight 97.727, kg, PRN, PRN Blood Glucose Results, Start date: 05/09/14 6:36:00, Duration: 30 day, Stop date : 06/08/14 5:35:00 Start Date: 05/09/14 Stop Date: 05/13/14 Status: DiscontinuedDilaudid 1 mg, Route: IVP, ONCE, Dosing Weight 113.636, kg, Priority: STAT, Start date: 05/09/14 3:14:00, Stop date: 05/09/14 3:14:00 Start Date: 05/09/14 Stop Date: 05/09/14 Status: Completeddocusate 100 mg, 1 cap, Route: PO, Drug form: CAP, BID, Dosing Weight 97.727, kg, Start date: 05/09/14 9:00:00, Duration: 30 day, Stop date: 06/07/14 17:00:00 Notes: (Same as: Colace) Start Date: 05/09/14 Stop Date: 05/11/14 Status: Discontinueddocusate-senna 50 mg-8.6 mg oral tablet 1 tab, Route: PO, Drug Form: TAB, Dosing Weight 97.727, kg, BID, Start date: 06/15 9:00:00, Duration: 30 day, Stop date: 06/10/14 17:00:00 Notes: (Same as Senokot-S) Equiv. to Lorie-Colace. Start Date: 05/12/14 Stop Date: 05/13/14 Status: Discontinueddocusate-senna 50 mg-8.6 mg oral tablet 1 tab, PO, BID, # 30 tab, 0 Refill(s) Start Date: 05/13/14 Status: Ordereddoxycycline 100 mg, 1 tab, Route: PO, Drug form: TAB, ONCE, Dosing Weight 113.636, kg, Start date: 05/09/14 3:06:00, Stop date: 05/09/14 3:06:00 Notes: NO MILK/ANTACIDS/IRON Take 1 hour before or 2 hours after dairy products Start Date: 05/09/14 Stop Date: 05/09/14 Status: CompletedfentaNYL 25 microgram, 0.5 mL, Route: IVP, Drug form: INJ, Q5Min, Dosing Weight 97.727, kg, PRN Pain Score 4-6, Start date: 05/10/14 17:35:00, Duration: 4 doses or times, Stop date: 05/11/14 0:00:00 Notes: (Same as: Sublimaze) Preservative free. Start Date: 05/10/14 Stop Date: 05/10/14 Status: CompletedFluzone Quadrivalent [id number] 0.5 mL, Route: IM, Drug Form: SUSP, ONCALL, Start date: 05/12/14 9:00:00, Duration: 1 doses or times, Stop date: 05/13/14 0:00:00 Notes: (Same as: Fluzone Quadrivalent) Start Date: 05/12/14 Stop Date: 05/13/14 Status: Discontinuedglucagon 1 mg, Route: IM, Drug form: PDR/INJ, PRN, Dosing Weight 97.727, kg, PRN Blood Glucose Results, Startdate: 05/09/14 6:36:00, Duration: 30 day, Stop date: 06/08 5:35:00 Start Date: 05/09/14 Stop Date: 05/11/14 Status: Discontinuedheparin 5,000 unit, 1 mL, Route: SUB-Q, Drug form: INJ, Q8H, Dosing Weight 97.727, kg, Start date: 05/11/14 16:00:00, Duration: 30 day, Stop date: 06/10/14 8:00:00 Notes: porcine heparin Start Date: 05/11/14 Stop Date: 05/13/14 Status: DiscontinuedhydrALAZINE 10 mg, 0.5 mL, Route: IVP, Drug form: INJ, Q20Min, Dosing Weight 97.727, kg, PRN Elevated BP, Start date: 05/10/14 19:38:00, Duration: 2 doses or times, Stop date: 05/11/14 0:00:00 Notes: (Same as: Apresoline)Push over 5 minutes Start Date: 05/10/14 Stop Date: 05/10/14 Status: DiscontinuedhydrALAZINE 10 mg, 0.5 mL, Route: IVP, Drug form: INJ, Q4H, Dosing Weight 97.727, kg, PRN Elevated BP, Start date: 05/11/14 4:59:00, Duration: 30 day, Stop date: 4:58:00, SBP>160 Notes: (Same as: Apresoline)Push over 5 minutes Start Date: 05/11/14 Stop Date: 05/12/14 Status: DiscontinuedhydrALAZINE 25 mg oral tablet 25 mg, 1 tab, Route: PO, Drug form: TAB, Q6H, Dosing Weight 97.727, kg, PRN See Nurse's Notes, Startdate: 05/12/14 7:30:00, Duration: 30 day, Stop date: 7:29:00, SBP>170 Notes: (Same as: Apresoline) May interfere w/enteral feedings Take With Food. Start Date: 05/12/14 Stop Date: 05/13/14 Status: Discontinuedhydrochlorothiazide 25 mg, 1 tab, Route: PO, Drug form: TAB, Daily, Dosing Weight 97.727, kg, Priority: NOW, Start date:05/11/14 13:47:00, Duration: 30 day, Stop date: 9:00:00 Notes: (Same as: Hydrodiuril) With food. Start Date: 05/11/14 Stop Date: 05/13/14 Status: Discontinuedhydrochlorothiazide 25 mg oral tablet 25 mg=1 tab, PO, Daily, # 14 tab, 0 Refill(s) Start Date: 05/13/14 Status: Orderedhydromorphone 0.5 mg, 0.25 mL, Route: IVP, Drug form: INJ, Q5Min, Dosing Weight 97.727, kg, PRN Pain Score 7-10, Start date: 05/10/14 17:35:00, Duration: 4 doses or times, Stop date: 05/11/14 0:00:00 Notes: Same as: Dilaudid Start Date: 05/10/14 Stop Date: 05/10/14 Status: Completedinfluenza virus vaccine, inactivated 0.5 mL, Route: IM, Drug Form: SUSP, Daily, Start date: 05/09/14 9:00:00, Duration: 1 doses or times,Stop date: 05/09/14 9:00:00 Notes: (Same as: Fluzone Quadrivalent) Start Date: 05/09/14 Stop Date: 05/09/14 Status: Completedinsulin aspart 2 unit, 0.02 mL, Route: SUB-Q, Drug form: SOLN, Sliding Scale, Dosing Weight 97.727, kg, PRN Blood Glucose Results, Start date: 05/09/14 6:36:00, Duration: 30 day, Stop date: 06/08/14 5:35:00 Notes: Roll in palms of hands gently; Do not shake vigorously. (Same as: NovoLOG)"single patient use only" Stable for 28 days at room temperature.Expires in days from Date Start Date: 05/09/14 Stop Date: 05/13/14 Status: Discontinuedinsulin aspart 4 unit, 0.04 mL, Route: SUB-Q, Drug form: SOLN, Sliding Scale, Dosing Weight 97.727, kg, PRN Blood Glucose Results, Start date: 05/09/14 6:36:00, Duration: 30 day, Stop date: 06/08/14 5:35:00 Notes: Roll in palms of hands gently; Do not shake vigorously. (Same as: NovoLOG)"single patient use only" Stable for 28 days at room temperature.Expires in days from Date Start Date: 05/09/14 Stop Date: 05/13/14 Status: Discontinuedinsulin aspart 3 unit, 0.03 mL, Route: SUB-Q, Drug form: SOLN, Sliding Scale, Dosing Weight 97.727, kg, PRN Blood Glucose Results, Start date: 05/09/14 6:36:00, Duration: 30 day, Stop date: 06/08/14 5:35:00 Notes: Roll in palms of hands gently; Do not shake vigorously. (Same as: NovoLOG)"single patient use only" Stable for 28 days at room temperature.Expires in days from Date Start Date: 05/09/14 Stop Date: 05/13/14 Status: Discontinuedinsulin aspart 5 unit, 0.05 mL, Route: SUB-Q, Drug form: SOLN, Sliding Scale, Dosing Weight 97.727, kg, PRN Blood Glucose Results, Start date: 05/09/14 6:36:00, Duration: 30 day, Stop date: 06/08/14 5:35:00 Notes: Roll in palms of hands gently; Do not shake vigorously. (Same as: NovoLOG)"single patient use only" Stable for 28 days at room temperature.Expires in days from Date Start Date: 05/09/14 Stop Date: 05/13/14 Status: Discontinuedinsulin aspart 1 unit, 0.01 mL, Route: SUB-Q, Drug form: SOLN, Sliding Scale, Dosing Weight 97.727, kg, PRN Blood Glucose Results, Start date: 05/09/14 6:36:00, Duration: 30 day, Stop date: 06/08/14 5:35:00 Notes: Roll in palms of hands gently; Do not shake vigorously. (Same as: NovoLOG)"single patient use only" Stable for 28 days at room temperature.Expires in days from Date Start Date: 05/09/14 Stop Date: 05/13/14 Status: Discontinuedlabetalol 10 mg, 2 mL, Route: IVP, Drug form: INJ, Q5Min, Dosing Weight 97.727, kg, PRN Elevated BP, Start date: 05/10/14 17:35:00, Duration: 5 doses or times, Stop date: 05/11/14 0:00:00 Start Date: 05/10/14 Stop Date: 05/10/14 Status: Discontinuedlabetalol 20 mg, Route: IVP, Drug form: INJ, ONCE, Dosing Weight 97.727, kg, Priority: STAT, Start date: 05/11/14 5:52:00, Stop date: 05/11/14 5:52:00 Start Date: 05/11/14 Stop Date: 05/11/14 Status: Completedlisinopril 5 mg, 1 tab, Route: PO, Drug form: TAB, ONCE, Dosing Weight 97.727, kg, Start date: 05/11/14 11:24:00, Stop date: 05/11/14 11:24:00 Notes: (Same as: Prinivil Zestril) Start Date: 05/11/14 Stop Date: 05/11/14 Status: Completedlisinopril 5 mg, 1 tab, Route: PO, Drug form: TAB, ONCE, Dosing Weight 97.727, kg, Start date: 05/11/14 13:46:00, Stop date: 05/11/14 13:46:00 Notes: (Same as: Prinivil Zestril) Start Date: 05/11/14 Stop Date: 05/11/14 Status: Completedlisinopril 10 mg, 1 tab, Route: PO, Drug form: TAB, Daily, Dosing Weight 97.727, kg, Start date: 05/12/14 9:00:00, Duration: 30 day, Stop date: 06/10/14 9:00:00 Notes: (Same as: Prinivil, Zestril) Start Date: 05/12/14 Stop Date: 05/13/14 Status: Discontinuedlisinopril 5 mg, 1 tab, Route: PO, Drug form: TAB, Daily, Dosing Weight 97.727, kg, Start date: 05/10/14 0:00:00, Duration: 30 day, Stop date: 06/08/14 9:00:00 Notes: (Same as: Prinivil, Zestril) Start Date: 05/10/14 Stop Date: 05/11/14 Status: Discontinuedlisinopril 10 mg oral tablet 10 mg=1 tab, PO, Daily, # 14 tab, 0 Refill(s) Start Date: 05/13/14 Status: OrderedmetFORMIN 500 mg oral tablet 500 mg=1 tab, PO, BID, # 30 tab, 0 Refill(s) Start Date: 05/09/14 Status: Orderedmetoprolol 5 mg/5 ml INJ 5 mg, 5 mL, Route: IVP, Drug form: INJ, Q2MIN, Dosing Weight 97.727, kg, PRN Other -See Comment, Start date: 05/11/14 6:18:00, Duration: 3 doses or times, Stop date: Limited # of times Notes: (Same as: Lopressor)Push over 2 minutes Start Date: 05/11/14 Stop Date: 05/13/14 Status: Discontinuedmorphine Sulfate 2 mg, 1 mL, Route: IVP, Drug form: INJ, Q4H, Dosing Weight 97.727, kg, PRN Pain Score 4-6, Start date: 05/09/14 6:35:00, Duration: 30 day, Stop date: 06/08/14 6 :34:00 Notes: (Same as:MORPhine Sulfate) Start Date: 05/09/14 Stop Date: 05/13/14 Status: Discontinuednitroglycerin 0.2 mg/hr transdermal film 1 patch, Route: TOP, Drug Form: ERFILM, Dosing Weight 97.727, kg, Daily, Start date: 05/11/14 9:00:00, Duration: 1 day, Stop date: 05/11/14 9:00:00 Notes: Apply only once for up to 12 hours in a 24 hour period (12 hours on and 12 hours off.)(Same as:Nitro-Dur,Deponit,Transderm Nitro) For topical use only. "Remove old patch before application of new patch" Start Date: 05/11/14 Stop Date: 05/11/14 Status: Completedondansetron 4 mg, 2 mL, Route: IVP, Drug form: INJ, ONCE, Dosing Weight 97.727, kg, PRN Nausea & Vomiting, Start date: 05/10/14 17:35:00 Notes: (Same as: Zofran) Start Date: 05/10/14 Stop Date: 05/10/14 Status: Discontinuedondansetron 4 mg, 2 mL, Route: IVP, Drug form: INJ, ONCE, Dosing Weight 97.727, kg, PRN Nausea & Vomiting, Start date: 05/09/14 6:35:00 Notes: (Same as: Zofran) Start Date: 05/09/14 Stop Date: 05/13/14 Status: Discontinuedpotassium chloride 20 mEq, 100 mL, Route: IVPB, Drug form: INJ, ONCE, Dosing Weight 97.727, kg, Start date: 05/09/14 6:36:00, Stop date: 05/09/14 6:36:00 Notes: (Same as: KCL) Infuse no faster than 10 mEq/hr if given peripherally. Start Date: 05/09/14 Stop Date: 05/09/14 Status: Completedpromethazine 6.25 mg, 0.25 mL, Route: IVPB, Drug form: INJ, ONCE, Dosing Weight 97.727, kg, PRN Nausea & Vomiting, Start date: 05/10/14 17:35:00 Notes: Do not give IV push. (Same as: Phenergan) Start Date: 05/10/14 Stop Date: 05/10/14 Status: DiscontinuedSaline Flush 0.9% 10 ml, Route: IVP, Drug Form: INJ, Dosing Weight 97.727, kg, PRN, PRN Line Flush , Start date: 05/09/14 6:35:00, Duration: 30 day, Stop date: 06/08/14 5:34:00 Notes: (Same as: BD Posiflush) Start Date: 05/09/14 Stop Date: 05/13/14 Status: Discontinuedsulfamethoxazole-trimethoprim 800 mg-160 mg oral tablet 1 tab, PO, [id number], # 14 tab, 0 Refill(s) Start Date: 05/13/14 Status: Orderedtramadol 50 mg oral tablet 50 mg=1 tab, PO, Q6H, # 30 tab, 0 Refill(s) Start Date: 05/13/14 Status: Orderedtramadol 50 mg oral tablet 50 mg, 1 tab, Route: PO, Drug form: TAB, Q6H, Dosing Weight 97.727, kg, Start date: 05/12/14 0:00:00, Duration: 30 day, Stop date: 06/10/14 18:00:00 Notes: Not to exceed 400mg/day. (Same As: Ultram) Start Date: 05/12/14 Stop Date: 05/13/14 Status: Discontinuedvancomycin 1 gm, Route: IV, Drug form: INJ, ONCE, Dosing Weight 97.727, kg, Start date: 03/15 6:39:00, Stop date: 05/09/14 6:39:00 Notes: (Same As: Vancocin) Infusion rate< 1000 mg: infuse over 1 [id number] - 1500 mg: infuse over1.5 [id number] - 2000 mg: infuse over 2 hours> 2001 mg: infuse over 2.5 hours Start Date: 05/09/14 Stop Date: 05/09/14 Status: Discontinuedvancomycin + Sodium Chloride 0.9% IV 250 mL 1.25 gm, Route: IVPB, [id number], Start date: 05/09/14 12:00:00, Duration: 30 day, Stop date: 06/08/14 2:00:00 Notes: (Same As: Vancocin)Infusion rate< 1000 mg: infuse over 1 [id number] - 1500 mg: infuse over 1.5 [id number] - 2000 mg: infuse over 2 hours> 2001 mg: infuse over 2.5 hours Vancomycin FOR IV SET ONLY Start Date: 05/09/14 Stop Date: 05/11/14 Status: Discontinuedvancomycin + Sodium Chloride 0.9% IV 500 mL 2 gm, Route: IVPB, ONCE, Start date: 05/09/14 10:00:00, Stop date: 05/09/14 10: 00:00 Notes: (Same As: Vancocin)Infusion rate< 1000 mg: infuse over 1 [id number] - 1500 mg: infuse over 1.5 [id number] - 2000 mg: infuse over 2 hours> 2001 mg: infuse over 2.5 hours Vancomycin FOR IV SET ONLY Start Date: 05/09/14 Stop Date: 05/09/14 Status: Canceledvancomycin + Sodium Chloride 0.9% IV 500 mL 1.75 gm, Route: IVPB, [id number], Start date: 05/11/14 10:00:00, Duration: 30 day, Stop date: 06/09/14 22:00:00 Notes: (Same As: Vancocin)Infusion rate< 1000 mg: infuse over 1 [id number] - 1500 mg: infuse over 1.5 [id number] - 2000 mg: infuse over 2 hours> 2001 mg: infuse over 2.5 hours Vancomycin FOR IV SET ONLY Start Date: 05/11/14 Stop Date: 05/11/14 Status: DiscontinuedZofran 4 mg, 2 mL, Route: IV, Drug form: INJ, Q8H, Dosing Weight 97.727, kg, PRN Nausea , Start date: 05/09/14 6:40:00, Duration: 30 day, Stop date: 06/08/14 6:39:00 Notes: (Same as: Zofran) Start Date: 05/09/14 Stop Date: 05/13/14 Status: Discontinued Results ELECTROLYTES Most recent to oldest 1 2 3 [Reference Range]: Sodium Lvl [135-145 mEq/L] 135 mEq/L 137 mEq/L 140 mEq/L (05/13/14 4:38 AM) (05/12/14 3:01 AM) (05/11/14 1:05 AM) Potassium Lvl [3.5-5.1 4.9 mEq/L 4.1 mEq/L 3.9 mEq/L mEq/L] (05/13/14 4:38 AM) (05/12/14 3:01 AM) (05/11/14 1:05 AM) Chloride Lvl [95-109 mEq/L] 100 mEq/L 101 mEq/L 105 mEq/L (05/13/14 4:38 AM) (05/12/14 3:01 AM) (05/11/14 1:05 AM) CO2 [24-32 mEq/L] 23 mEq/L 25 mEq/L 25 mEq/L *LOW* (05/12/14 3:01 AM) (05/11/14 1:05 AM) (05/13/14 4:38 AM) AGAP [10.0-20.0 mEq/L] 16.9 mEq/L 15.1 mEq/L 13.9 mEq/L (05/13/14 4:38 AM) (05/12/14 3:01 AM) (05/11/14 1:05 AM) CHEM PANEL Most recent to oldest 1 2 3 [Reference Range]: Creatinine Lvl [0.5-1.4 0.8 mg/dL 0.9 mg/dL 1.0 mg/dL mg/dL] (05/13/14 4:38 AM) (05/12/14 3:01 AM) (05/11/14 1:05 AM) eGFR 124 mL/min/1.73m2 1 118 mL/min/1.73m2 2 104 mL/min/1.73m2 3 *NA* *NA* *NA* (05/13/14 4:38 AM) (05/12/14 3:01 AM) (05/11/14 1:05 AM) BUN [7-22 mg/dL] 11 mg/dL 6 mg/dL 9 mg/dL (05/13/14 4:38 AM) *LOW* (05/11/14 1:05 AM) (05/12/14 3:01 AM) Glucose Lvl [70-99 mg/dL] 83 mg/dL 4 89 mg/dL 5 106 mg/dL 6 (05/13/14 4:38 AM) (05/12/14 3:01 AM) *HI* (05/11/14 1:05 AM) Calcium Lvl [8.5-10.5 9.4 mg/dL 9.1 mg/dL 8.6 mg/dL mg/dL] (05/13/14 4:38 AM) (05/12/14 3:01 AM) (05/11/14 1:05 AM) Phosphorus [2.5-4.5 mg/dL] 4.9 mg/dL 4.6 mg/dL 2.9 mg/dL *HI* *HI* (05/11/14 6:47 AM) (05/13/14 4:38 AM) (05/12/14 3:01 AM) Magnesium Lvl [1.8-2.4 2.1 mg/dL 2.2 mg/dL 2.0 mg/dL mg/dL] (05/13/14 4:38 AM) (05/12/14 3:01 AM) (05/11/14 6:47 AM) 1Result Comment: The eGFR is calculated [...] values reflect the clinical guidelines of the [place] [employer].5Interpretive Data: Adult reference range values reflect the clinical guidelines of the [place] [employer].6Interpretive Data: Adult reference range values reflect the clinical guidelines of the [place] [employer].CARDIAC ENZYMES Most recent to oldest 1 2 3 [Reference Range]: Total CK [12-191 unit/L] 400 unit/L 447 unit/L 455 unit/L *HI* *HI* *HI* (05/12/14 3:01 AM) (05/11/14 4:43 PM) (05/11/14 11:06 AM) CK MB [0.5-3.6 ng/mL] 1.2 ng/mL 2.2 ng/mL 2.2 ng/mL (05/12/14 3:01 AM) (05/11/14 4:43 PM) (05/11/14 11:06 AM) CK MB Index [0.0-2.5] 0.3 0.5 0.5 (05/12/14 3:01 AM) (05/11/14 4:43 PM) (05/11/14 11:06 AM) Troponin-T [0.000-0.100 <0.010 ng/mL <0.010 ng/mL <0.010 ng/mL ng/mL] (05/11/14 4:43 PM) (05/11/14 11:06 AM) (05/11/14 6:11 AM) Troponin-I [0.00-0.40 <0.02 ng/mL <0.02 ng/mL <0.02 ng/mL ng/mL] (05/12/14 3:01 AM) (05/11/14 4:43 PM) (05/11/14 11:06 AM) TOXICOLOGY Most recent to oldest [Reference Range]: 1 2 3 Vanco Tr TND 21:30 130am *NA* *NA* (05/11/14 6:11 AM) (05/11/14 1:05 AM) Vanco Tr 11.9 ug/ml 7 2.6 ug/ml 8 *NA* *NA* (05/11/14 6:11 AM) (05/11/14 1:05 AM) 7Interpretive Data: Therapeutic Range: Trough: 10 - 20 ug/mL Peak: 20 - 40 ug/mL Potential Toxicity: >80 ug/[id number] Data: Therapeutic Range: Trough: 10 - 20 ug/mL Peak: 20 - 40 ug/mL Potential Toxicity: >80 ug/mLIMMUNOLOGY Most recent to oldest [Reference Range]: 1 2 3 [place]-Hep C Ab [Negative] Negative *NA* (05/12/14 3:01 AM) HEMATOLOGY Most recent to oldest 1 2 3 [Reference Range]: WBC [3.7-10.4 K/CMM] 9.2 K/CMM 8.9 K/CMM 9.3 K/CMM (05/13/14 4:38 AM) (05/12/14 3:01 AM) (05/11/14 1:05 AM) RBC [4.70-6.10 M/CMM] 4.62 M/CMM 4.47 M/CMM 4.19 M/CMM *LOW* *LOW* *LOW* (05/13/14 4:38 AM) (05/12/14 3:01 AM) (05/11/14 1:05 AM) Hgb [14.0-18.0 g/dL] 12.8 g/dL 12.6 g/dL 11.8 g/dL *LOW* *LOW* *LOW* (05/13/14 4:38 AM) (05/12/14 3:01 AM) (05/11/14 1:05 AM) Hct [42.0-54.0 %] 39.7 % 38.1 % 36.2 % *LOW* *LOW* *LOW* (05/13/14 4:38 AM) (05/12/14 3:01 AM) (05/11/14 1:05 AM) MCV [80.0-94.0 fL] 86.0 fL 85.3 fL 86.3 fL (05/13/14 4:38 AM) (05/12/14 3:01 AM) (05/11/14 1:05 AM) MCH [27.0-31.0 pg] 27.7 pg 28.3 pg 28.2 pg (05/13/14 4:38 AM) (05/12/14 3:01 AM) (05/11/14 1:05 AM) MCHC [32.0-36.0 g/dL] 32.3 g/dL 33.1 g/dL 32.7 g/dL (05/13/14 4:38 AM) (05/12/14 3:01 AM) (05/11/14 1:05 AM) RDW [11.5-14.5 %] 14.3 % 14.2 % 14.6 % (05/13/14 4:38 AM) (05/12/14 3:01 AM) *HI* (05/11/14 1:05 AM) Platelet [133-450 K/CMM] 222 K/CMM 231 K/CMM 200 K/CMM (05/13/14 4:38 AM) (05/12/14 3:01 AM) (05/11/14 1:05 AM) MPV [7.4-10.4 fL] 8.9 fL 9.5 fL 9.3 fL (05/13/14 4:38 AM) (05/12/14 3:01 AM) (05/11/14 1:05 AM) Segs [45.0-75.0 %] 69.3 % 72.9 % 79.8 % (05/13/14 4:38 AM) (05/12/14 3:01 AM) *HI* (05/11/14 1:05 AM) Lymphocytes [20.0-40.0 %] 13.2 % 15.0 % 10.5 % *LOW* *LOW* *LOW* (05/13/14 4:38 AM) (05/12/14 3:01 AM) (05/11/14 1:05 AM) Monocytes [2.0-12.0 %] 14.0 % 9.8 % 7.4 % *HI* (05/12/14 3:01 AM) (05/11/14 1:05 AM) (05/13/14 4:38 AM) Eosinophils [0.0-4.0 %] 3.1 % 1.9 % 2.0 % (05/13/14 4:38 AM) (05/12/14 3:01 AM) (05/11/14 1:05 AM) Basophils [0.0-1.0 %] 0.4 % 0.4 % 0.3 % (05/13/14 4:38 AM) (05/12/14 3:01 AM) (05/11/14 1:05 AM) Segs-Bands # [1.5-8.1 K/CMM] 6.4 K/CMM 6.5 K/CMM 7.4 K/CMM (05/13/14 4:38 AM) (05/12/14 3:01 AM) (05/11/14 1:05 AM) Lymphocytes # [1.0-5.5 1.2 K/CMM 1.3 K/CMM 1.0 K/CMM K/CMM] (05/13/14 4:38 AM) (05/12/14 3:01 AM) (05/11/14 1:05 AM) Monocytes # [0.0-0.8 K/CMM] 1.3 K/CMM 0.9 K/CMM 0.7 K/CMM *HI* *HI* (05/11/14 1:05 AM) (05/13/14 4:38 AM) (05/12/14 3:01 AM) Eosinophils # [0.0-0.5 0.3 K/CMM 0.2 K/CMM 0.2 K/CMM K/CMM] (05/13/14 4:38 AM) (05/12/14 3:01 AM) (05/11/14 1:05 AM) Medications Administered During Your Visit No [...] day. Assessment and Plan Extracted from: Title: Hand Author: Michael Randolph MD Date: 05/13/14 Doing well, pain continues to improve, some serous drainage from hand vss afebrile alert left hand slightly swollen, mild pain with flexion and extension of digits no forearm pain, no purulent drainage A/p Okay to go home cont pt on abx for another 5 days keep arm elevated ROM excercises for the digits F/u with dr. Zhong this week in the office Extracted from: Title: Cardiology Consultation Author: Cher Maxwell MD Date: 05/11/14 Cardiology Consult Note Consulted by: Dr. Radha Chu Reason for consult: chest pain Chief complaint: pain and swelling of L hand HPI: Patient is a 48 year old man who presented 2 days ago (05/09) with progressive pain, tenderness, and swelling of the left hand. He says that he had gone fishing approximately 1 week prior to present ation and sustained a wound in his left palm from a part of a fish while he was cleaning it. Most of his pain was localized to that wound but his swelling had progressed to involve the entire hand and t he distal part of the L arm. He was admitted for surgical intervention for tenosynovitis and went to OR yesterday (05/10) for irrigation and debridement. Overnight, his blood pressure was high 182/121 and he began to experience chest pain, 10/10 in severity, localized to the left chest and radiating down his left arm. He was having difficulty differentia ting between the chest pain radiating down and the hand pain radiating up that arm. He described the chest pain as the feeling of a heavy load sitting on his chest. He also endorsed associated dyspnea. EKG done at that time showed ST wave elevation. He was evaluated by pet resort concierge overnight who found his chest pain to be reproducible on exertion and EKG consistent with early repolarization. He w as given morphine with relief of chest pain as well as ASA and metoprolol for continued hypertension. This morning he endorsed continued chest pain 6/10 in severity. He states that he has never had chest pain like this before, but that he does have sharp chest pain and shortness of breath on exertion (walking more than about 2 blocks) which is relieved by rest. He a lso endorses occasionally waking up in the night gasping for breath as well as becoming short of breath when lying flat; he sleeps on two pillows. ROS: CV - +chest pain, no palpitations Resp - +dyspnea Gen - no fever, no chills Eyes - +occasional blurred vision GI - no nausea, no vomiting, +constipation - no dysuria MS - no muscle or joint pain, +pain in L hand Int - no rash Neuro - no focal weakness or paresthesias Heme - no active bleeding Allergies: NKDA Home medications: coreg 6.25 BID lisinopril 5 qd metformin 500 BID Current CV meds: coreg 6.25 BID lisinopril 5 qd ASA 325 qd hydralazine 10 IV q4h PRN Family Hx: No early CAD or sudden . Social Hx: Has smoked for ~30 years, 1 pack every 3 days. Occasional alcohol use. Denies recreational drug use. Medical Hx: NIDDM HTN heart failure Physical Exam: Vitals: Afebrile and hemodynamically stable since admission but with persistently elevated blood pressure. Constitutional: in moderate distress due to pain Neck: no bruits Resp: CTAB without w/r/r; tenderness to palpation of chest wall CV: RRR without m/r/g Ext: no LE edema Head: NC/AT Eyes: anicteric ENMT: MMM Abd: +BS, nontender, mildly distended Telemetry: No events on telemetry Lab evaluation: Labs reviewed in EMR. Electrolytes WNL and stable. K low at admission, now 3.9. Magnesium 2.0. H/H stable postoperatively, now 11.8/36.2. First set of troponins WNL. No recent BNP or TFTs. EKG shows ST elevation consistent with early repolarization. Most recent TTE shows no change from study 2 days ago. A/P: Patient is a 48 year old man who presented for L hand pain and was found to have tenosynovitis requiring surgical debridement, and then began to have chest pain postoperatively. Chest pain - Pain reproducible on palpation and does not seem typical for cardiac pain. - Troponin x1 not elevated and stat echo overnight shows global hypokinesis of L ventricle and LVEF of 40-45%, no change from study done earlier in admission. - Would like to see next set of cardiac enzymes to ensure there is no rise in levels. Hypertension - On lisinopril 5 mg qd and coreg 6.25 mg BID. Formerly also on HCTZ 25 qd but per patient was discontinued in January. - BP has been persistently elevated since admission. - Recommend to double doses of current antihypertensives to lisinopril 10 and coreg 12.5 daily. Would also restart hydrochlorothiazide 25 daily. Heart failure - Endorses symptoms at home consistent with heart failure including PND, orthopnea, and dyspnea - LVEF 20-25% in 07/2013. 40-45% on latest TTE. - EMR notes history of nonischemic cardiomyopathy; unclear how this diagnosis was made. - Recommend for patient to follow up outpatient for further evaluation. Cher Maxwell MD PGY-1, Anesthesiology Pager [phone] Addendum by Arnulfo Santiago MD on Attending addendum: I have seen and examined 05/11/2014 21:06 the patient. Furthermore, I have reviewed the housestaff s note dated 05/11/2014, and I agree with the assessment and plan. See note below for additions and/or exceptions. Needs better blood pressure control for both his chest pain and cardiomyopathy. Extracted from: Title: General Admission H&P * Author: Marcelina Delgadillo MD Date: 05/09/14 Patient: ALLYSON LESLIE Age: 48 years Sex: Male : 1965 Associated Diagnoses: None Author: Marcelina Delgadillo MD Chief Complaint 05/09/2014 05:43 left hand edema and pain 05/09/2014 02:58 Transfer from [facility] for tenosynovitis, Accepting [facility]DANA. Swollen L middle finger, spreading to rest of hand. hx CHF, HTN, DM 05/08/2014 18:31 left hand swelling, tender to touch started 5 days ago. History of Present Illness 48 yo gentleman with history of DM, Nonischemic CM with EF 30% presented from OSH secondary to worsening left hand pain. Transferred for higher level of care with Plastic Surgery consultation secondary for concern of tenosynovitis. Patient reports intermittent chills, fevers over the last 3 days. Was fishing one week ago and developed a wound in the palm of his hand, where most of his pain is localize d. However in last 5 days swelling around fingers and wrist significantly increased. Denies chest pain with exertion. Reports heart failure was due to a pneumonia and has never had a heart attack, cardiac stents or surgery. He does have a significantly low EF of 30% but did not follow u p with cardiology for further interventions. He denies pnd, orthopnea. Review of Systems Constitutional: Negative except as documented in history of present illness. Eye: Negative. Ear/Nose/Mouth/Throat: Negative. Respiratory: Negative. Cardiovascular: Negative. Gastrointestinal: Negative. Genitourinary: Negative. Hematology/Lymphatics: Negative. Endocrine: Negative except as documented in history of present illness. Immunologic: Negative. Integumentary: Negative except as documented in history of present illness. Neurologic: Negative. Psychiatric: Negative. Health Status Current medications: (Selected) Inpatient Medications Ordered Dextrose 50% Syringe: 12.5 gm, 25 mL, IVP, PRN, PRN: Blood Glucose Results Dextrose 50% Syringe: 25 gm, 50 mL, IVP, PRN, PRN: Blood Glucose Results Saline Flush 0.9%: 10 ml, IVP, PRN, PRN: Line Flush Zofran: 4 mg, IV, Q8H, PRN: Nausea acetaminophen-hydrocodone 325 mg-10 mg oral tablet: 1 tab, PO, Q4H, PRN: Pain Score 4-6 acetaminophen-hydrocodone 325 mg-5 mg oral tablet: 1 tab, PO, Q4H, PRN: Pain Score 1-3 acetaminophen: 650 mg, 2 tab, PO, Q4H, PRN: Pain 1-3/Temp > 100.4 F aspirin: 81 mg, PO, Daily carvedilol: 6.25 mg, PO, Q12H cefTRIAXone: 1 gm, IVPB, [id number] docusate: 100 mg, 1 cap, PO, BID glucagon: 1 mg, IM, PRN, PRN: Blood Glucose Results influenza virus vaccine, inactivated: 0.5 mL, IM, Daily insulin aspart: 1 unit, 0.01 mL, SUB-Q, Sliding Scale, PRN: Blood Glucose Results insulin aspart: 2 unit, 0.02 mL, SUB-Q, Sliding Scale, PRN: Blood Glucose Results insulin aspart: 3 unit, 0.03 mL, SUB-Q, Sliding Scale, PRN: Blood Glucose Results insulin aspart: 4 unit, 0.04 mL, SUB-Q, Sliding Scale, PRN: Blood Glucose Results insulin aspart: 5 unit, 0.05 mL, SUB-Q, Sliding Scale, PRN: Blood Glucose Results morphine Sulfate: 2 mg, 1 mL, IVP, Q4H, PRN: Pain Score 4-6 ondansetron: 4 mg, 2 mL, IVP, ONCE, PRN: Nausea & Vomiting potassium chloride: 20 mEq, IVPB, ONCE vancomycin: 1 gm, IV, ONCE Prescriptions Prescribed carvedilol 12.5 mg oral tablet: 6.25 mg, 0.5 tab, PO, BID, 15 tab hydrochlorothiazide 25 mg oral tablet: 25 mg, 1 tab, PO, Daily, 30 tab, PRN: for edema lisinopril 5 mg oral tablet: 5 mg, 1 tab, PO, Daily, 30 tab Documented Medications Documented metFORMIN 500 mg oral tablet: 500 mg, 1 tab, PO, BID, 30 tab simvastatin: 40 mg, 1 tab, PO, Bedtime, 30 tab Problem list: All Problems CHF (congestive heart failure) / SNOMED CT [id number] / Confirmed HTN - Hypertension / SNOMED CT [id number] / Confirmed Hypercholesterolemia / SNOMED CT [id number] / Confirmed Histories Past Medical History: Active CHF (congestive heart failure) ([id number]): Onset in 2012 at 47 years. HTN - Hypertension (4107209069) Hypercholesterolemia ([id number]) Resolved Diabetes ([id number]): Resolved. Social History Social & Psychosocial Habits Alcohol 02/07/2014 Use: Current Type: Beer Frequency: Daily Previous treatment: None Has alcohol use interfered with work or home life? No Do you ever drink more than intended? No Has anyone been hurt or at risk by your drinking? No Ready to change: No Concerns about alcohol use in household: No Comment: 1 beer a day. - 02/07/2014 15:47 - Suly Calzada RN Employment/School 02/07/2014 Status: Employed Substance Abuse 02/07/2014 Use: None Tobacco 05/09/2014 Use: Current every day smoker Type: Cigarettes Tobacco use per day: 8 Number of years: 25 Total pack years: 12 Exposure to Tobacco Smoke None Other Tobacco Frequency 1/3 pack per day Cigarette Smoking Last 365 Days Yes Reg Smoking Cessation Counseling Yes . Physical Examination VS/Measurements Vital Signs (last 24 hrs) Last Charted Minimum Maximum Temp 97.8 (MAY 09 05:20) 97.8 (MAY 09 05:20) 98.6 (MAY 09 02:58) Heart Rate 76 (MAY 09 05:20) 72 (MAY 09 05:13) 88 (MAY 09 02:58) Resp Rate 18 (MAY 09 05:20) 16 (MAY 09 05:13) 18 (MAY 09 02:58) SBP 110 (MAY 09 05:20) 110 (MAY 09 05:20) 140 (MAY 09 02:58) DBP 62 (MAY 09 05:20) 62 (MAY 09 05:20) H 96 (MAY 09 02:58) Weight 97.727 (MAY 09 06:38) Height 165.1 (MAY 09 06:38) BMI 35.85 (MAY 09 05:42) General: Alert and oriented, No acute distress. Eye: Normal conjunctiva, Vision unchanged. HENT: Normocephalic, Tympanic membranes are clear, Normal hearing, Oral mucosa is moist. Neck: Supple, Non-tender. Respiratory: Lungs are clear to auscultation, Respirations are non-labored. Cardiovascular: Normal rate, Regular rhythm, No murmur. Gastrointestinal: Soft, Non-tender. Genitourinary: No costovertebral angle tenderness. Musculoskeletal Normal range of motion. Integumentary: swelling > 3,4th digit and wrist swelling. no obvious drainage or pus. Neurologic: Alert, Oriented, Normal sensory, Normal motor function, No focal deficits. Cognition and Speech: Oriented. Psychiatric: Cooperative, Appropriate mood & affect. Review / Management Results review: No qualifying data available. Impression and Plan 48 yo gentleman with hx dm, htn, and chf ef 30% presents with left hand pain secondary to tenosynovitis 1. Tenosynovitis: appreciate plastic surgery recommendations Keep LUE elevated, continue IV abx, follow up blood culture possible surgery based on clinic progression Cardiac risk moderate, awaiting further work up for clearance- EKG and echo pending 2. CHF EF 20%: euvolemic on exam; continue coreg. Hold lisinopril and resume once bp tolerates 3. Diabetes: hold metformin: sliding scale 4. anemia: possible chronic disease conitnue to trend 5. DVT ppx heparin 6. Full Code MHUTS is primary Addendum by Radha Chu MD on Pt seen and examined by me and agree with 05/09/2014 14:03 Elie's assessment/plan. Pt reports some dyspnea with mowing the lawn, but not upon walking. Denies chest pain and orthopnea. Pt has EKG NSR 75 with prolonged qtc 498, no twi or st changes. Pt's echo with EF of 40-45% no PFO noted, mild MR/TR. Pt is intermediate risk for any intermediate risk procedure, no further cardiovascular testing needed prior to surgery. Will keep NPO for possible surgery this evening per plastics.
--- OUTSIDE RECORDS SUMMARY | 2018-08-27 17:29 | XMS REPORT | Summary of Care ---
:1965 Author Organization [facility] Address [address] [place] [id number] Encounter HQ Jocelyn(FIN) [id number] Date(s): 02/18/16 - 02/18/16 [facility] [address] [place] [phone] [phone] Discharge Diagnosis: Syncope Discharge Diagnosis: Tonic seizure Discharge Disposition: Home or Self Care Attending Physician: Wilfred Hogan MD Vital Signs Most recent to oldest 1 2 3 [Reference Range]: Height 177.8 cm (02/18/16 11:37 AM) Temperature Oral [96.4-99.1 98.1 DegF 98.2 DegF 98.5 DegF DegF] (02/18/16 4:51 PM) (02/18/16 3:44 PM) (02/18/16 11:37 AM) Blood Pressure [90-140/60-90 171/91 mmHg 162/97 mmHg 195/128 mmHg mmHg] *HI* *HI* *HI* (02/18/16 4:51 PM) (02/18/16 3:44 PM) (02/18/16 12:22 PM) Respiratory Rate [14-20 18 BRMIN 14 BRMIN 16 BRMIN BRMIN] (02/18/16 4:51 PM) (02/18/16 3:44 PM) (02/18/16 12:22 PM) Peripheral Pulse Rate [60-100 76 bpm 87 bpm 86 bpm bpm] (02/18/16 4:51 PM) (02/18/16 3:44 PM) (02/18/16 12:22 PM) Weight 81.818 kg (02/18/16 11:37 AM) Body Mass Index 25.88 m2 (02/18/16 11:37 AM) Problem List Condition Effective Dates Status Health Status Informant CHF (congestive heart 2013 Active failure)(Confirmed) Diabetes(Confirmed) Resolved HTN - Hypertension(Confirmed) Active Hypercholesterolemia(Confirmed) Active Spider bite wound(Confirmed) Resolved Syncope(Confirmed) Resolved Allergies, Adverse Reactions, Alerts Substance Reaction Severity Status NKDA Active Medications acetaminophen 650 mg, 2 tab, Route: PO, Drug form: TAB, ONCE, Dosing Weight 81.818, kg, Priority: STAT, Start date: 02/18/16 12:26:00 CDT, Stop date: 02/18/16 12:26:00 CDT Notes: Do not exceed 4 gm/day. (Same as: Tylenol) Start Date: 02/18/16 Stop Date: 02/18/16 Status: CompletedhydrALAZINE 20 mg, 1 mL, Route: IVP, Drug form: INJ, ONCE, Dosing Weight 81.818, kg, Priority: STAT, Start date:02/18/16 15:08:00 CDT, Stop date: 02/18/16 15:08:00 CDT Notes: (Same as: Apresoline)Push over 5 minutes Start Date: 02/18/16 Stop Date: 02/18/16 Status: Completedlabetalol 20 mg, 4 mL, Route: IVP, Drug form: INJ, ONCE, Dosing Weight 81.818, kg, Priority: STAT, Start date:02/18/16 12:26:00 CDT, Stop date: 02/18/16 12:26:00 CDT Start Date: 02/18/16 Stop Date: 02/18/16 Status: CompletedOmnipaque 350 100 mL, Route: INJ, Drug Form: SOLN, ONCALL, Start date: 02/18/16 16:00:00 CDT, Duration: 1 doses ortimes Notes: (same as:Omnipaque 350).WASTE: F/P - Black; E - Municipal Trash Bin Start Date: 02/18/16 Stop Date: 02/18/16 Status: DiscontinuedSaline Flush 0.9% 10 mL, Route: IVP, Drug Form: INJ, Dosing Weight 81.818, kg, PRN, PRN Line Flush , Start date: 02/18/16 11:44:00 CDT, Duration: 30 day, Stop date: 03/19/16 11:43 :00 CDT Notes: Same as: BD Posiflush Sterile Start Date: 02/18/16 Stop Date: 02/18/16 Status: Discontinued Results ELECTROLYTES Most recent to oldest [Reference Range]: 1 Sodium Lvl [135-145 mEq/L] 133 mEq/L *LOW* (02/18/16 12:22 PM) Potassium Lvl [3.5-5.1 mEq/L] 4.7 mEq/L (02/18/16 12:22 PM) Chloride Lvl [95-109 mEq/L] 96 mEq/L (02/18/16 12:22 PM) CO2 [24-32 mEq/L] 36 mEq/L *HI* (02/18/16 12:22 PM) AGAP [10.0-20.0 mEq/L] 5.7 mEq/L *LOW* (02/18/16 12:22 PM) CHEM PANEL Most recent to oldest [Reference Range]: 1 Creatinine Lvl [0.50-1.40 mg/dL] 0.90 mg/dL (02/18/16 12:22 PM) eGFR 116 mL/min/1.73m2 1 *NA* (02/18/16 12:22 PM) BUN [7-22 mg/dL] 5 mg/dL *LOW* (02/18/16 12:22 PM) B/C Ratio [6-25] 6 (02/18/16 12:22 PM) Glucose Lvl [70-99 mg/dL] 84 mg/dL (02/18/16 12:22 PM) Total Protein [6.4-8.4 g/dL] 7.5 g/dL (02/18/16 12:22 PM) Albumin Lvl [3.5-5.0 g/dL] 3.3 g/dL *LOW* (02/18/16 12:22 PM) Globulin [2.0-4.0 g/dL] 4.2 g/dL *HI* (02/18/16 12:22 PM) A/G Ratio [0.7-1.6] 0.8 (02/18/16 12:22 PM) Calcium Lvl [8.5-10.5 mg/dL] 8.2 mg/dL *LOW* (02/18/16 12:22 PM) ALT [0-65 unit/L] 62 unit/L (02/18/16 12:22 PM) AST [0-37 unit/L] 117 unit/L *HI* (02/18/16 12:22 PM) Alk Phos [39-136 unit/L] 110 unit/L (02/18/16 12:22 PM) Bili Total [0.2-1.3 mg/dL] 0.6 mg/dL (02/18/16 12:22 PM) 1Result Comment: The eGFR is calculated using [...] eGFR should be multiplied by the estimated BMI.CARDIAC ENZYMES Most recent to oldest [Reference Range]: 1 Total CK [12-191 unit/L] 774 unit/L *HI* (02/18/16 12:22 PM) CK MB [0.5-3.6 ng/mL] 5.2 ng/mL *HI* (02/18/16 12:22 PM) CK MB Index [0.0-2.5] 0.7 (02/18/16 12:22 PM) Troponin-I [0.00-0.40 ng/mL] 0.02 ng/mL (02/18/16 12:22 PM) HEMATOLOGY Most recent to oldest [Reference Range]: 1 WBC [3.7-10.4 K/CMM] 6.1 K/CMM (02/18/16 12:22 PM) RBC [4.70-6.10 M/CMM] 4.51 M/CMM *LOW* (02/18/16 12:22 PM) Hgb [14.0-18.0 g/dL] 13.0 g/dL *LOW* (02/18/16 12:22 PM) Hct [42.0-54.0 %] 39.6 % *LOW* (02/18/16 12:22 PM) MCV [80.0-94.0 fL] 87.9 fL (02/18/16 12:22 PM) MCH [27.0-31.0 pg] 28.9 pg (02/18/16 12:22 PM) MCHC [32.0-36.0 g/dL] 32.8 g/dL (02/18/16 12:22 PM) RDW [11.5-14.5 %] 14.4 % (02/18/16 12:22 PM) Platelet [133-450 K/CMM] 228 K/CMM (02/18/16 12:22 PM) MPV [7.4-10.4 fL] 9.5 fL (02/18/16:22 PM) Segs [45.0-75.0 %] 62.9 % (02/18/16 12:22 PM) Lymphocytes [20.0-40.0 %] 22.7 % (02/18/16 12:22 PM) Monocytes [2.0-12.0 %] 10.5 % (02/18/16 12:22 PM) Eosinophils [0.0-4.0 %] 2.7 % (02/18/16 12:22 PM) Basophils [0.0-1.0 %] 1.2 % *HI* (02/18/16 12:22 PM) Segs-Bands # [1.5-8.1 K/CMM] 3.9 K/CMM (02/18/16 12:22 PM) Lymphocytes # [1.0-5.5 K/CMM] 1.4 K/CMM (02/18/16 12:22 PM) Monocytes # [0.0-0.8 K/CMM] 0.6 K/CMM (02/18/16 12:22 PM) Eosinophils # [0.0-0.5 K/CMM] 0.2 K/CMM (02/18/16 12:22 PM) Basophils # [0.0-0.2 K/CMM] 0.1 K/CMM (02/18/16 12:22 PM) RBC Morph Normal (02/18/16 12:22 PM) Plt Morph Normal (02/18/16 12:22 PM) Immunizations Given and Recorded Vaccine Date Status Refusal Reason diphtheria/pertussis, acel/tetanus adult 05/09/14 Given influenza virus vaccine, inactivated 05/12/14 Given influenza virus vaccine, inactivated 07/21/13 Given tuberculin purified protein derivative1 07/18/13 Given 1Result Comment: given in left forearm Procedures [...]
--- OUTSIDE RECORDS SUMMARY | 2018-08-27 17:30 | XMS REPORT | Summary of Care ---
:1965 Author Organization [facility] Encounter HQ Encntr_camacho(FIN) [id number] Date(s): 07/10/16 - 08/08/16 [facility] Discharge Disposition: Home or Self Care Attending Physician: Norman Quinteros DO Vital Signs No data available for this section Problem List Condition Effective Dates Status Health Status Informant CHF (congestive heart 2013 Active failure)(Confirmed) CVA (cerebral vascular Active accident)(Confirmed) Diabetes(Confirmed) Resolved H/O: stroke(Confirmed) Resolved HTN - Hypertension(Confirmed) Active Hypercholesterolemia(Confirmed) Active Seizure(Confirmed) Active Spider bite wound(Confirmed) Resolved Syncope(Confirmed) Resolved Allergies, Adverse Reactions, Alerts Substance Reaction Severity Status NKDA Active Medications No data available for this section Results No data available for this section Immunizations Given and Recorded Vaccine Date Status Refusal Reason diphtheria/pertussis, acel/tetanus adult 05/09/14 Given influenza virus vaccine, inactivated 05/12/14 Given influenza virus vaccine, inactivated 07/21/13 Given tuberculin purified protein derivative1 07/18/13 Given 1Result Comment: given in left forearm Procedures Procedure Date Related Diagnosis Body Site MRI of brain and brain stem 07/29/16 Hand repair Social History Social History Type [...]
--- OUTSIDE RECORDS SUMMARY | 2018-08-27 17:30 | XMS REPORT | Summary of Care ---
:[address] [facility] Address [address] [place] [id number] Encounter HQ Jocelyn(PANDA) [phone] Date(s): 03/07/16 - 03/07/16 [facility] [address] [place] [id number]- Discharge Diagnosis: Acute viral syndrome Discharge Diagnosis: Atypical chest pain Discharge Diagnosis: Acute hypokalemia Discharge Disposition: Home or Self Care Attending Physician: Stanley Mendez MD Vital Signs Most recent to oldest [Reference 1 2 3 Range]: Height 165.1 cm (03/07/16 12:40 PM) Temperature Oral [96.4-99.1 98.8 DegF 99.1 DegF 98.5 DegF DegF] (03/07/16 5:33 PM) (03/07/16 2:17 PM) (03/07/16 12:40 PM) Blood Pressure [90-140/60-90 136/78 mmHg 131/67 mmHg 113/75 mmHg mmHg] (03/07/16 5:33 PM) (03/07/16 2:17 PM) (03/07/16 12:40 PM) Respiratory Rate [14-20 BRMIN] 18 BRMIN 18 BRMIN 16 BRMIN (03/07/16 5:33 PM) (03/07/16 2:17 PM) (03/07/16 12:40 PM) Peripheral Pulse Rate [60-100 78 bpm 76 bpm 96 bpm bpm] (03/07/16 5:33 PM) (03/07/16 2:17 PM) (03/07/16 12:40 PM) Weight 94.545 kg (03/07/16 12:40 PM) Body Mass Index 34.69 m2 (03/07/16 12:40 PM) Problem List Condition Effective Dates Status Health Status Informant CHF (congestive heart 2013 Active failure)(Confirmed) Diabetes(Confirmed) Resolved HTN - Hypertension(Confirmed) Active Hypercholesterolemia(Confirmed) Active Spider bite wound(Confirmed) Resolved Syncope(Confirmed) Resolved Allergies, Adverse Reactions, Alerts Substance Reaction Severity Status NKDA Active Medications carvedilol 25 mg oral tablet 25 mg=1 tab, PO, BID Start Date: 03/07/16 Status: OrderedGI cocktail 30 mL, Route: PO, Drug Form: SUSP, Dosing Weight 94.545, kg, ONCE, STAT, Start date: 03/07/16 13:44:00 CDT, Stop date: 03/07/16 13:44:00 CDT Notes: G.I. Cocktail=antacid with simethicone 22.5 mL - lidocaine viscous 7.5 mL Start Date: 03/07/16 Stop Date: 03/07/16 Status: CompletedLipitor 20 mg oral tablet 20 mg=1 tab, PO, Daily Start Date: 03/07/16 Status: Orderedlisinopril 20 mg oral tablet 20 mg=1 tab, PO, BID Start Date: 03/07/16 Status: OrderedNIFEdipine 60 mg oral tablet, extended release 60 mg=1 tab, PO, Daily Start Date: 03/07/16 Status: Orderedpotassium chloride 10 mEq, 100 mL, Route: IVPB, Drug form: INJ, Q1H, Dosing Weight 94.545, kg, Total Dose=40 meq, Startdate: 03/07/16 16:00:00 CDT, Duration: 4 doses or times , Stop date: 03/07/16 19:00:00 CDT, Peripheral Line Notes: Infuse at a rate of 10 mEq/hr.(Same as: KCL) Start Date: 03/07/16 Stop Date: 03/07/16 Status: Pending Completepotassium chloride 20 mEq/15 mL oral liquid 20 mEq=15 mL, PO, BID, 1.33 mEq/ml, # 150 mL, 0 Refill(s) Start Date: 03/07/16 Stop Date: 03/12/16 Status: Orderedpotassium chloride 20 mEq/15 mL oral liquid 40 mEq, 15 mL, Route: PO, Drug form: LIQ, ONCE, Dosing Weight 94.545, kg, Priority: STAT, Start date: 03/07/16 15:12:00 CDT, Stop date: 03/07/16 15:12:00 CDT Start Date: 03/07/16 Stop Date: 03/07/16 Status: CompletedSaline Flush 0.9% 10 mL, Route: IVP, Drug Form: INJ, Dosing Weight 94.545, kg, PRN, PRN Line Flush , Start date: 03/07/16 13:04:00 CDT, Duration: 30 day, Stop date: 04/06/16 13:03 :00 CDT Notes: Same as: BD Posiflush Sterile Start Date: 03/07/16 Stop Date: 03/07/16 Status: DiscontinuedSodium Chloride 0.9% (Bolus) IV 1,000 mL, 1000 ml/hr, Infuse Over: 1 hr, Route: IV, 1,000, Drug form: INJ, ONCE , Priority: STAT, Dosing Weight 94.545 kg, Start date: 03/07/16 13:04:00 CDT, Duration: 1 doses or times, Stop date: 03/07/16 13:04:00 CDT Start Date: 03/07/16 Stop Date: 03/07/16 Status: Completedsodium chloride 0.9% 1000 ml INJ 1,000 mL 1,000 mL, Rate: 1,000 ml/hr, Infuse over: 1 hr, Route: IV, Dosing Weight 94.545 kg, Total Volume: 1,000, Priority: STAT, Start date: 03/07/16 15:27:00 CDT, Duration: 1 doses or times, Stop date: 03/07/16 16:26:00 CDT Start Date: 03/07/16 Stop Date: 03/07/16 Status: CompletedTylenol 650 mg, 2 tab, Route: PO, Drug form: TAB, ONCE, Dosing Weight 94.545, kg, Priority: STAT, Start date: 03/07/16 13:43:00 CDT, Stop date: 03/07/16 13:43:00 CDT Notes: Do not exceed 4 gm/day. (Same as: Tylenol) Start Date: 03/07/16 Stop Date: 03/07/16 Status: Completed Results ELECTROLYTES Most recent to oldest 1 2 3 [Reference Range]: Sodium Lvl [135-145 mEq/L] 142 mEq/L 140 mEq/L (03/07/16 4:19 PM) (03/07/16 1:25 PM) Potassium Lvl [3.5-5.1 mEq/L] 2.7 mEq/L 1 2.7 mEq/L 2 2.5 mEq/L 3 *CRIT* *CRIT* *CRIT* (03/07/16 4:19 PM) (03/07/16 4:19 PM) (03/07/16 1:25 PM) Chloride Lvl [95-109 mEq/L] 103 mEq/L 99 mEq/L (03/07/16 4:19 PM) (03/07/16 1:25 PM) CO2 [24-32 mEq/L] 30 mEq/L 30 mEq/L (03/07/16 4:19 PM) (03/07/16 1:25 PM) AGAP [10.0-20.0 mEq/L] 11.7 mEq/L 13.5 mEq/L (03/07/16 4:19 PM) (03/07/16 1:25 PM) 1Result Comment: Critical Result(s) called to Ignacio CARRIZALES at 03/07/2016 17:10 by [employer]. Read back OK.2Result Comment: Critical Result(s) called to JOEY HERNÁNDEZ at 03/07/2016 16:38 by [employer]. Read back OK.3Result Comment: Critical Result(s) called to Chelsea DERAS at 03/07/2016 13:58_ [email or web address]. Read back OK.CHEM PANEL Most recent to oldest [Reference Range]: 1 2 3 Creatinine Lvl [0.50-1.40 mg/dL] 1.27 mg/dL 1.47 mg/dL (03/07/16 4:19 PM) *HI* (03/07/16 1:25 PM) eGFR 77 mL/min/1.73m2 1 64 mL/min/1.73m2 2 *NA* *NA* (03/07/16 4:19 PM) (03/07/16 1:25 PM) BUN [7-22 mg/dL] 7 mg/dL 7 mg/dL (03/07/16 4:19 PM) (03/07/16 1:25 PM) B/C Ratio [6-25] 5 *LOW* (03/07/16 1:25 PM) Glucose Lvl [70-99 mg/dL] 125 mg/dL 105 mg/dL *HI* *HI* (03/07/16 4:19 PM) (03/07/16 1:25 PM) Total Protein [6.4-8.4 g/dL] 7.6 g/dL (03/07/16 1:25 PM) Albumin Lvl [3.5-5.0 g/dL] 3.7 g/dL (03/07/16 1:25 PM) Globulin [2.7-4.2 g/dL] 3.9 g/dL (03/07/16 1:25 PM) A/G Ratio [0.7-1.6] 0.9 (03/07/16 1:25 PM) Calcium Lvl [8.5-10.5 mg/dL] 8.1 mg/dL 9.1 mg/dL *LOW* (03/07/16 1:25 PM) (03/07/16 4:19 PM) ALT [0-65 unit/L] 52 unit/L (03/07/16 1:25 PM) AST [0-37 unit/L] 89 unit/L *HI* (03/07/16 1:25 PM) Alk Phos [39-136 unit/L] 121 unit/L (03/07/16 1:25 PM) Bili Total [0.2-1.3 mg/dL] 0.9 mg/dL (03/07/16 1:25 PM) 1Result Comment: The eGFR is calculated [...] to oldest [Reference Range]: 1 2 3 Total CK [12-191 unit/L] 501 unit/L *HI* (03/07/16 1:25 PM) CK MB [0.5-3.6 ng/mL] 1.5 ng/mL (03/07/16 1:25 PM) CK MB Index [0.0-2.5] 0.3 (03/07/16 1:25 PM) Troponin-I [0.00-0.40 ng/mL] 0.06 ng/mL (03/07/16 1:25 PM) BNP [<=100 pg/mL] 8 pg/mL 7 pg/mL (03/07/16 1:25 PM) (03/07/16 1:25 PM) DRUG SCREEN Most recent to oldest [Reference Range]: 1 2 3 U Amph Scr [Negative] Negative *NA* (03/07/16 1:30 PM) U Armida Scr [Negative] Negative *NA* (03/07/16 1:30 PM) U Benzodia Scr [Negative] Negative *NA* (03/07/16 1:30 PM) U Cocaine Scr [Negative] Negative *NA* (03/07/16 1:30 PM) U Opiate Scr [Negative] Negative *NA* (03/07/16 1:30 PM) U Phencyc Scr [Negative] Negative *NA* (03/07/16 1:30 PM) U Cannab Scr [Negative] Negative *NA* (03/07/16 1:30 PM) UDS Note See Note *NA* (03/07/16 1:30 PM) URINE AND STOOL Most recent to oldest [Reference Range]: 1 2 3 UA Turbidity [Clear] Clear (03/07/16 1:30 PM) UA Color DK YELLOW *NA* (03/07/16 1:30 PM) UA pH [5.0-8.0] 5.5 (03/07/16 1:30 PM) UA Spec Grav [<=1.030] >=1.030 *ABN* (03/07/16 1:30 PM) UA Glucose [Negative] Negative (03/07/16 1:30 PM) UA Blood [Negative] Negative (03/07/16 1:30 PM) UA Ketones [Negative mg/dL] 15 mg/dL *ABN* (03/07/16 1:30 PM) UA Protein [Negative mg/dL] 30 mg/dL *ABN* (03/07/16 1:30 PM) UA Urobilinogen [0.1-1.0 EU/dL] 2.0 EU/dL *HI* (03/07/16 1:30 PM) UA Bili [Negative] Moderate *ABN* (03/07/16 1:30 PM) UA Leuk Est [Negative] Negative (03/07/16 1:30 PM) UA Nitrite [Negative] Positive *ABN* (03/07/16 1:30 PM) UA WBC [None Seen /HPF] 3-5 /HPF (03/07/16 1:30 PM) UA RBC [0-2 /HPF] 0-2 /HPF (03/07/16 1:30 PM) UA Bacteria [None Seen] None Seen (03/07/16 1:30 PM) UA Sq Epi [Few /LPF] Rare /LPF (03/07/16 1:30 PM) UA Mucus [None Seen /LPF] Moderate /LPF *ABN* (03/07/16 1:30 PM) Micro? Performed (03/07/16 1:30 PM) HEMATOLOGY Most recent to oldest [Reference Range]: 1 2 3 WBC [3.7-10.4 K/CMM] 8.0 K/CMM (03/07/16 1:25 PM) RBC [4.70-6.10 M/CMM] 4.97 M/CMM (03/07/16 1:25 PM) Hgb [14.0-18.0 g/dL] 14.2 g/dL (03/07/16 1:25 PM) Hct [42.0-54.0 %] 43.6 % (03/07/16 1:25 PM) MCV [80.0-94.0 fL] 87.6 fL (03/07/16 1:25 PM) MCH [27.0-31.0 pg] 28.6 pg (03/07/16 1:25 PM) MCHC [32.0-36.0 g/dL] 32.6 g/dL (03/07/16 1:25 PM) RDW [11.5-14.5 %] 15.1 % *HI* (03/07/16 1:25 PM) Platelet [133-450 K/CMM] 245 K/CMM (03/07/16 1:25 PM) MPV [7.4-10.4 fL] 8.5 fL (03/07/16 1:25 PM) Segs [45.0-75.0 %] 70.8 % (03/07/16 1:25 PM) Lymphocytes [20.0-40.0 %] 16.3 % *LOW* (03/07/16 1:25 PM) Monocytes [2.0-12.0 %] 10.7 % (03/07/16 1:25 PM) Eosinophils [0.0-4.0 %] 1.5 % (03/07/16 1:25 PM) Basophils [0.0-1.0 %] 0.7 % (03/07/16 1:25 PM) Segs-Bands # [1.5-8.1 K/CMM] 5.7 K/CMM (03/07/16 1:25 PM) Lymphocytes # [1.0-5.5 K/CMM] 1.3 K/CMM (03/07/16 1:25 PM) Monocytes # [0.0-0.8 K/CMM] 0.9 K/CMM *HI* (03/07/16 1:25 PM) Eosinophils # [0.0-0.5 K/CMM] 0.1 K/CMM (03/07/16 1:25 PM) Basophils # [0.0-0.2 K/CMM] 0.1 K/CMM (03/07/16 1:25 PM) Immunizations Given and Recorded Vaccine Date [...]
--- OUTSIDE RECORDS SUMMARY | 2018-08-27 17:30 | XMS REPORT | Summary of Care ---
:1965 Author Organization [facility] Address [address] [place] [id number]- Encounter HQ Jocelyn(PANDA) [id number] Date(s): 07/27/16 - 07/30/[address] [address]- Discharge Disposition: Home or Self Care Attending Physician: Khris Moon MD Admitting Physician: Khris Moon MD Vital Signs Most recent to oldest 1 2 3 [Reference Range]: Height 165.1 cm (07/27/16 11:13 AM) Current Weight 99.318 kg (07/28/16 4:18 AM) Temperature Oral [96.4-99.1 98.6 DegF 98.9 DegF 97.5 DegF DegF] (07/30/16 12:12 PM) (07/30/16 8:57 AM) (07/30/16 4:00 AM) Blood Pressure 128/80 mmHg 142/92 mmHg 158/97 mmHg [90-140/60-90 mmHg] (07/30/16 12:12 PM) *HI* *HI* (07/30/16 8:57 AM) (07/30/16 4:00 AM) Respiratory Rate [14-20 20 BRMIN 20 BRMIN 20 BRMIN BRMIN] (07/30/16 12:12 PM) (07/30/16 8:57 AM) (07/30/16 4:00 AM) Peripheral Pulse Rate 84 bpm 90 bpm 89 bpm [60-100 bpm] (07/30/16 12:12 PM) (07/30/16 8:57 AM) (07/30/16 4:00 AM) Weight 97.727 kg (07/27/16 11:13 AM) Body Mass Index 35.85 m2 (07/27/16 11:13 AM) Problem List Condition Effective Dates Status Health Status Informant CHF (congestive heart 2013 Active failure)(Confirmed) CVA (cerebral vascular Active accident)(Confirmed) Diabetes(Confirmed) Resolved H/O: stroke(Confirmed) Resolved HTN - Hypertension(Confirmed) Active Hypercholesterolemia(Confirmed) Active Seizure(Confirmed) Active Spider bite wound(Confirmed) Resolved Syncope(Confirmed) Resolved Allergies, Adverse Reactions, Alerts Substance Reaction Severity Status NKDA Active Medications Ambien 5 mg, 1 tab, Route: PO, Drug form: TAB, Bedtime, Dosing Weight 97.727, kg, PRN Insomnia, Start date:07/28/16 21:30:00 MEDICAID BILLER, Duration: 30 day, Stop date: 21:29:00 MEDICAID BILLER Notes: (Same As: Ambien) Start Date: 07/28/16 Stop Date: 07/30/16 Status: Discontinuedaspirin 324 mg, 4 tab, Route: CHEW, Drug form: CHEWTAB, ONCE, Dosing Weight 97.727, kg, Priority: STAT, Start date: 07/27/16 13:12:00 MEDICAID BILLER, Stop date: 07/27/16 13:12:00 MEDICAID BILLER Notes: Take with food. Start Date: 07/27/16 Stop Date: 07/27/16 Status: Completedaspirin 325 mg, 1 tab, Route: PO, Drug form: TAB, Daily, Dosing Weight 97.727, kg, Start date: 07/29/16 9:00:00 MEDICAID BILLER, Duration: 30 day, Stop date: 08/27/16 9:00:00 MEDICAID BILLER Notes: Take with food. Start Date: 07/29/16 Stop Date: 07/30/16 Status: Discontinuedaspirin 325 mg tablet 325 mg=1 tab, PO, Daily, # 50 tab, 0 Refill(s) Start Date: 07/29/16 Status: OrderedAtivan 1 mg, 0.5 mL, Route: IVP, Drug form: INJ, ONCE, Priority: NOW, Start date: 07/27 16:22:00 MEDICAID BILLER, Stop date: 07/27/16 16:22:00 MEDICAID BILLER Notes: (Same as: Ativan) Start Date: 07/27/16 Stop Date: 07/27/16 Status: CompletedAtivan 1 mg, 0.5 mL, Route: IVP, Drug form: INJ, Q15Min, Dosing Weight 97.727, kg, PRN Seizure, CALL MD IF SEIZURE DOES NOT STOP AFTER 2 DOSES, Start date: 07/28/16 4: 38:00 MEDICAID BILLER, Duration: 30 day, Stop date: 08/27/16 4:37:00 MEDICAID BILLER Notes: (Same as: Ativan) Start Date: 07/28/16 Stop Date: 07/30/16 Status: Discontinuedcarvedilol 25 mg, 1 tab, Route: PO, Drug form: TAB, BID, Dosing Weight 97.727, kg, Start date: 07/27/16 18:14:00 MEDICAID BILLER, Duration: 30 day, Stop date: 08/26/16 17:00:00 MEDICAID BILLER Notes: Give with food. (Same As: Coreg) Start Date: 07/27/16 Stop Date: 07/30/16 Status: DiscontinuedCepacol Sore Throat 15 mg-3.6 mg mucous membrane lozenge 1 lozenge, Route: MUCOUS MEM, Drug Form: LADARIUS, Dosing Weight 97.727, kg, Q4H, PRN Sore Throat, Start date: 07/28/16 10:06:00 MEDICAID BILLER, Duration: 30 day, Stop date : 08/27/16 10:05:00 MEDICAID BILLER Notes: Same as: Cepacol Start Date: 07/28/16 Stop Date: 07/30/16 Status: DiscontinuedchlordiazePOXIDE 25 mg oral capsule (Librium) 25 mg, 1 cap, Route: PO, Drug form: CAP, QID, Dosing Weight 97.727, kg, Start date: 07/28/16 17:00:00 MEDICAID BILLER, Duration: 30 day, Stop date: 08/27/16 13:00:00 MEDICAID BILLER Start Date: 07/28/16 Stop Date: 07/30/16 Status: DiscontinuedcloNIDine 0.2 mg oral tablet 0.2 mg, 1 tab, Route: PO, Drug form: TAB, Q4H, Dosing Weight 97.727, kg, PRN Hypertension, FOR SBP>170, Start date: 07/27/16 20:28:00 MEDICAID BILLER, Duration: 30 day, Stop date: 08/26/16 20:27:00 MEDICAID BILLER Notes: (Same As: Catapres) Start Date: 07/27/16 Stop Date: 07/30/16 Status: DiscontinuedEntresto 49 mg-51 mg oral tablet 1 tab, Route: PO, Drug Form: TAB, Dosing Weight 97.727, kg, BID, Start date: 9:00:00 MEDICAID BILLER, Duration: 30 day, Stop date: 08/26/16 17:00:00 MEDICAID BILLER Start Date: 07/28/16 Stop Date: 07/27/16 Status: DeletedEntresto 49 mg-51 mg oral tablet 1 tab, PO, BID Start Date: 07/27/16 Status: Orderedinfluenza virus vaccine, inactivated 0.5 mL, Route: IM, Drug Form: SUSP, ONCALL, Start date: 07/27/16 14:54:37 MEDICAID BILLER, Stop date: 08/26/16 14:49:37 MEDICAID BILLER Notes: (Same as: Fluzone Quadrivalent, Fluarix Quadrivalent)For 3 years of age and older (0.5 mL IM)Shake well before use Start Date: 07/27/16 Stop Date: 07/30/16 Status: DiscontinuedKeppra 1,000 mg, 100 mL, Route: IVPB, Drug form: INJ, Q12H, Dosing Weight 97.727, kg, Priority: NOW, Start date: 07/28/16 14:54:00 MEDICAID BILLER, Duration: 30 day, Stop date: 08/27/16 9:00:00 MEDICAID BILLER Start Date: 07/28/16 Stop Date: 07/30/16 Status: DiscontinuedKeppra + sodium chloride 0.9% INJ 100 mL 500 mg, Route: IVPB, BID, Dosing Weight 97.727, kg, Priority: Routine, Start date: 07/27/16 17:00:00CST, Duration: 30 day, Stop date: 08/26/16 5:00:00 MEDICAID BILLER Notes: Same as KeppraMix with 100 mL NS, LR or D5W MEDICATION WASTE Product Size: 500 mgProduct Wasted: ___ mg Start Date: 07/27/16 Stop Date: 07/28/16 Status: DiscontinuedKeppra 1000 mg oral tablet 1,000 mg, 2 tab, Route: PO, Drug form: TAB, Q12H, Dosing Weight 97.727, kg, Start date: 07/30/16 21:00:00 MEDICAID BILLER, Duration: 30 day, Stop date: 08/29/16 9:00: 00 MEDICAID BILLER Notes: (Same as:Keppra) Start Date: 07/30/16 Stop Date: 07/30/16 Status: CanceledKeppra 1000 mg oral tablet 1,000 mg, Route: PO, Drug form: TAB, Q12H, Dosing Weight 97.727, kg, Priority: NOW, Start date: 07/28/16 14:53:00 MEDICAID BILLER, Duration: 30 day, Stop date: 08/27/16 9: 00:00 MEDICAID BILLER Start Date: 07/28/16 Stop Date: 07/28/16 Status: DiscontinuedKeppra 750 mg oral tablet 750 mg=1 tab, PO, BID, # 60 tab, 0 Refill(s) Start Date: 07/29/16 Status: OrderedLipitor 20 mg, 1 tab, Route: PO, Drug form: TAB, Bedtime, Dosing Weight 97.727, kg, Start date: 07/27/16 21:00:00 MEDICAID BILLER, Duration: 30 day, Stop date: 08/25/16 21:00: 00 MEDICAID BILLER Notes: (Same As: Lipitor) Start Date: 07/27/16 Stop Date: 07/30/16 Status: DiscontinuedNIFEdipine 60 mg oral tablet, extended release 60 mg, 1 tab, Route: PO, Drug form: ERTAB, Daily, Dosing Weight 97.727, kg, Start date: 07/27/16 18:15:00 MEDICAID BILLER, Duration: 30 day, Stop date: 08/26/16 9:00: 00 MEDICAID BILLER Notes: (Same as: Adalat CC, Procardia XL) Give on empty stomach. Take 1 hour before or 2 hours after meal; "Avoid grapefruit and grapefruit juice". Do not crush Start Date: 07/27/16 Stop Date: 07/30/16 Status: DiscontinuedNorco 5/325 oral tablet 1 tab, Route: PO, Drug Form: TAB, Dosing Weight 97.727, kg, ONCE, STAT, Start date: 07/27/16 13:12:00 MEDICAID BILLER, Stop date: 07/27/16 13:12:00 MEDICAID BILLER Notes: (Same as: [place] 325/5) Do not exceed 4gm/day of acetaminophen. Start Date: 07/27/16 Stop Date: 07/27/16 Status: CompletedOmnipaque 350 100 mL, 100 ml/hr, Route: IV, Drug Form: SOLN, ONCALL, Start date: 07/30/16 9:00 :00 MEDICAID BILLER, Duration: 48 hr, Stop date: 08/01/16 8:59:00 MEDICAID BILLER Notes: (same as:Omnipaque 350).WASTE: F/P - Black; E - Municipal Trash Bin Start Date: 07/30/16 Stop Date: 07/30/16 Status: Completedpneumococcal 23-valent vaccine 0.5 mL, Route: IM, Drug Form: INJ, ONCALL, Start date: 07/27/16 14:55:38 MEDICAID BILLER, Stop date: 08/26/16 14:50:38 MEDICAID BILLER Notes: (Same as: Pneumovax 23) Refrigerate Start Date: 07/27/16 Stop Date: 07/30/16 Status: Discontinuedsacubitril-valsartan 2 tab, Route: PO, Drug Form: TAB, Q12H, Start date: 07/27/16 21:00:00 MEDICAID BILLER, Duration: 30 day, Stop date: 08/26/16 9:00:00 MEDICAID BILLER Notes: (Same as: Entresto)Avoid in patients with history of angioedema due to BECKY inhibitor or ARB therapy. Do not use concomitantly or within 36 hours of BECKY inhibitors Start Date: 07/27/16 Stop Date: 07/30/16 Status: DiscontinuedSaline Flush 0.9% 10 ml, Route: IVP, Drug Form: INJ, Dosing Weight 97.727, kg, PRN, PRN Line Flush , Start date: 07/27/16 19:29:00 MEDICAID BILLER, Duration: 30 day, Stop date: 08/26/16 19:28 :00 MEDICAID BILLER Notes: Same as: BD Posiflush Sterile Start Date: 07/27/16 Stop Date: 07/30/16 Status: DiscontinuedSaline Flush 0.9% 10 ml, Route: IVP, Drug Form: INJ, Dosing Weight 97.727, kg, Q12H, Start date: 07/27/16 21:00:00 MEDICAID BILLER, Duration: 30 day, Stop date: 08/26/16 9:00:00 MEDICAID BILLER Notes: Same as: BD Posiflush Sterile Start Date: 07/27/16 Stop Date: 07/30/16 Status: DiscontinuedSaline Flush 0.9% 10 mL, Route: IVP, Drug Form: INJ, Dosing Weight 94.545, kg, PRN, PRN Line Flush , Start date: 07/27/16 11:14:00 MEDICAID BILLER, Duration: 30 day, Stop date: 08/26/16 11:13 :00 MEDICAID BILLER Notes: Same as: BD Posiflush Sterile Start Date: 07/27/16 Stop Date: 07/30/16 Status: Discontinuedtramadol 50 mg oral tablet 50 mg, 1 tab, Route: PO, Drug form: TAB, Q4H, Dosing Weight 97.727, kg, PRN Pain Score 1-3, Start date: 07/28/16 9:45:00 MEDICAID BILLER, Duration: 30 day, Stop date: 08/27/16 9:44:00 MEDICAID BILLER Notes: Not to exceed 400mg/day. (Same As: Ultram) Start Date: 07/28/16 Stop Date: 07/30/16 Status: DiscontinuedTylenol 650 mg, 2 tab, Route: PO, Drug form: TAB, Q4H, Dosing Weight 97.727, kg, PRN Pain Score 1-3, Start date: 07/27/16 20:25:00 MEDICAID BILLER, Duration: 30 day, Stop date: 08/26/16 20:24:00 MEDICAID BILLER Notes: Do not exceed 4 gm/day. (Same as: Tylenol) Start Date: 07/27/16 Stop Date: 07/30/16 Status: Discontinued Results ELECTROLYTES Most recent to oldest [Reference Range]: 1 Sodium Lvl [135-145 mEq/L] 143 mEq/L (07/27/16 11:40 AM) Potassium Lvl [3.5-5.1 mEq/L] 3.4 mEq/L *LOW* (07/27/16 11:40 AM) Chloride Lvl [95-109 mEq/L] 103 mEq/L (07/27/16 11:40 AM) CO2 [24-32 mEq/L] 27 mEq/L (07/27/16 11:40 AM) AGAP [10.0-20.0 mEq/L] 16.4 mEq/L (07/27/16 11:40 AM) CHEM PANEL Most recent to oldest [Reference Range]: 1 Creatinine Lvl [0.50-1.40 mg/dL] 0.76 mg/dL (07/27/16 11:40 AM) eGFR 125 mL/min/1.73m2 1 *NA* (07/27/16 11:40 AM) BUN [7-22 mg/dL] 11 mg/dL (07/27/16 11:40 AM) B/C Ratio [6-25] 14 (07/27/16 11:40 AM) Glucose Lvl [70-99 mg/dL] 93 mg/dL (07/27/16 11:40 AM) Total Protein [6.4-8.4 g/dL] 8.0 g/dL (07/27/16 11:40 AM) Albumin Lvl [3.5-5.0 g/dL] 3.9 g/dL (07/27/16 11:40 AM) Globulin [2.7-4.2 g/dL] 4.1 g/dL (07/27/16 11:40 AM) A/G Ratio [0.7-1.6] 1.0 (07/27/16 11:40 AM) Calcium Lvl [8.5-10.5 mg/dL] 8.3 mg/dL *LOW* (07/27/16 11:40 AM) ALT [0-65 unit/L] 24 unit/L (07/27/16 11:40 AM) AST [0-37 unit/L] 29 unit/L (07/27/16 11:40 AM) Alk Phos [39-136 unit/L] 91 unit/L (07/27/16 11:40 AM) Bili Total [0.2-1.3 mg/dL] 0.3 mg/dL (07/27/16 11:40 AM) 1Result Comment: The eGFR is calculated [...] [Reference Range]: 1 Total CK [12-191 unit/L] 244 unit/L *HI* (07/27/16 11:40 AM) CK MB [0.5-3.6 ng/mL] 1.0 ng/mL (07/27/16 11:40 AM) CK MB Index [0.0-2.5] 0.4 (07/27/16 11:40 AM) Troponin-I [0.00-0.40 ng/mL] <0.02 ng/mL (07/27/16 11:40 AM) LIPIDS Most recent to oldest [Reference Range]: 1 CHD Risk [4.00-7.30] 5.52 (07/27/16 11:40 AM) Chol [<=199 mg/dL] 127 mg/dL (07/27/16 11:40 AM) Trig [<=149 mg/dL] 310 mg/dL *HI* (07/27/16 11:40 AM) HDL [>=61 mg/dL] 23 mg/dL *LOW* (07/27/16 11:40 AM) LDL (Calculated) [<=99 mg/dL] 42 mg/dL (07/27/16 11:40 AM) VLDL 62 *NA* (07/27/16 11:40 AM) SPECIAL CHEMISTRY Most recent to oldest [Reference Range]: 1 Hgb A1C [<=5.6 %] 5.9 % *HI* (07/27/16 11:40 AM) DRUG SCREEN Most recent to oldest [Reference Range]: 1 U Amph Scr [Negative] Negative *NA* (07/28/16 4:20 PM) U Armida Scr [Negative] Negative *NA* (07/28/16 4:20 PM) U Benzodia Scr [Negative] Negative *NA* (07/28/16 4:20 PM) U Cocaine Scr [Negative] Negative *NA* (07/28/16 4:20 PM) U Opiate Scr [Negative] Negative *NA* (07/28/16 4:20 PM) U Phencyc Scr [Negative] Negative *NA* (07/28/16 4:20 PM) U Cannab Scr [Negative] Negative *NA* (07/28/16 4:20 PM) UDS Note See Note *NA* (07/28/16 4:20 PM) TOXICOLOGY Most recent to oldest [Reference Range]: 1 Etoh (%) <.003 % *NA* (07/28/16 4:25 PM) Ethanol Lvl <3 mg/dL *NA* (07/28/16 4:25 PM) URINE AND STOOL Most recent to oldest [Reference Range]: 1 UA Turbidity [Clear] Clear (07/28/16 4:20 PM) UA Color [Yellow] Yellow *NA* (07/28/16 4:20 PM) UA pH [5.0-8.0] 8.0 (07/28/16 4:20 PM) UA Spec Grav [<=1.030] 1.020 (07/28/16 4:20 PM) UA Glucose [Negative] Negative (07/28/16 4:20 PM) UA Blood [Negative] Trace *ABN* (07/28/16 4:20 PM) UA Ketones [Negative] Trace *ABN* (07/28/16 4:20 PM) UA Protein [Negative] Negative (07/28/16 4:20 PM) UA Urobilinogen [0.1-1.0 EU/dL] 1.0 EU/dL (07/28/16 4:20 PM) UA Bili [Negative] Negative *NA* (07/28/16 4:20 PM) UA Leuk Est [Negative] Negative (07/28/16 4:20 PM) UA Nitrite [Negative] Negative (07/28/16 4:20 PM) UA WBC [None Seen] None Seen (07/28/16 4:20 PM) UA RBC [0-2 /HPF] 0-2 /HPF (07/28/16 4:20 PM) UA Bacteria [None Seen /HPF] Occasional /HPF (07/28/16 4:20 PM) UA Sq Epi [Few /LPF] Few /LPF (07/28/16 4:20 PM) UA Amorph Paulina [None Seen /HPF] Occasional /HPF *ABN* (07/28/16 4:20 PM) UA Mucus [None Seen] None Seen (07/28/16 4:20 PM) HEMATOLOGY Most recent to oldest [Reference Range]: 1 WBC [3.7-10.4 K/CMM] 6.0 K/CMM (07/27/16 11:40 AM) RBC [4.70-6.10 M/CMM] 5.03 M/CMM (07/27/16 11:40 AM) Hgb [14.0-18.0 g/dL] 14.3 g/dL (07/27/16 11:40 AM) Hct [42.0-54.0 %] 42.3 % (07/27/16 11:40 AM) MCV [80.0-94.0 fL] 84.1 fL (07/27/16 11:40 AM) MCH [27.0-31.0 pg] 28.5 pg (07/27/16 11:40 AM) MCHC [32.0-36.0 g/dL] 33.9 g/dL (07/27/16 11:40 AM) RDW [11.5-14.5 %] 14.5 % (07/27/16 11:40 AM) Platelet [133-450 K/CMM] 265 K/CMM (07/27/16 11:40 AM) MPV [7.4-10.4 fL] 8.0 fL (07/27/16 11:40 AM) Segs [45.0-75.0 %] 70.6 % (07/27/16 11:40 AM) Lymphocytes [20.0-40.0 %] 19.1 % *LOW* (07/27/16 11:40 AM) Monocytes [2.0-12.0 %] 7.7 % (07/27/16 11:40 AM) Eosinophils [0.0-4.0 %] 1.5 % (07/27/16 11:40 AM) Basophils [0.0-1.0 %] 1.1 % *HI* (07/27/16 11:40 AM) Segs-Bands # [1.5-8.1 K/CMM] 4.2 K/CMM (07/27/16 11:40 AM) Lymphocytes # [1.0-5.5 K/CMM] 1.1 K/CMM (07/27/16 11:40 AM) Monocytes # [0.0-0.8 K/CMM] 0.5 K/CMM (07/27/16 11:40 AM) Eosinophils # [0.0-0.5 K/CMM] 0.1 K/CMM (07/27/16 11:40 AM) Basophils # [0.0-0.2 K/CMM] 0.1 K/CMM (07/27/16 11:40 AM) PT [12.0-14.7 seconds] 13.6 seconds (07/27/16 11:40 AM) INR [0.85-1.17] 1.02 (07/27/16 11:40 AM) PTT [22.9-35.8 seconds] 28.3 seconds (07/27/16 11:40 AM) Immunizations Given and Recorded Vaccine Date Status [...] day. Assessment and Plan Extracted from: Title: Progress Note Author: Rin Morales Date: 07/30/16 Progress Note - Daily [facility] Completed: Jul , 13:28 by Rin Morales RM: 508 - 01, NW [id number] ALLYSON LESLIE 50y (: 1965) Attending: Khris Moon MD Service: Pulmonology/ Respiratory Therapy Reason for Admission: ACUTE CEREBROVASCULAR ACCIDENT Working DRG: Other disorders of nervous system w/o CC/LONG TERM Code status: None Specified=FULL CODE Isolation: None Documented Allergies: NKDA SUBJECTIVE Pt examined at bedside alongside Dr. Ho, no acute events overnight. Just returned to room from CTA brain/neck. Pt reports feeling well, denies any further episodes of expressive aphasia, increased L hemiparesis/hemihypesthesia. Denies any current complaints. OBJECTIVE General: NAD; patient resting in bed Chest: regular respirations without use of accessory muscles Abdomen: soft, nontender, nondistended Neuro: Awake, alert. Speech is fluent and appropriate though at times mildly slurred, reliably follows commands. Pupils equal, round, and reactive to light. Extraoccular movements intact. Facial sens ation intact c mild L nasolabial fold flattening noted. Sensation: intact to light touch in upper and lower extremities bilaterally. Strength: presently moving all extremities antigravity Gait: deferred 24hr Labs 07/30 1133 Glucose POC 97 07/30 0715 Glucose POC 105 H 07/29 2015 Glucose POC 112 H 07/29 1619 Glucose POC 139 H Vitals Tmp(F) Pulse BP RR SpO2 FIO2 07/30 12:12 98.6 84 128/80 20 96 --- 07/30 08:57 98.9 90 142/92 20 100 --- 07/30 04:00 97.5 89 158/97 20 97 --- 07/30 00:00 98.3 82 145/90 20 98 --- 07/29 20:00 98.1 85 132/84 20 98 --- 24 Hr Tmax: 98.9F (37.17c) at 07/30 08:57 Vital Signs are the last 5 in the past 48 hours. Date Wt(kg) Wt(lb) Ht(cm) Ht(in) Method 07/28 99.32 218.50 Measured 07/27 (initial) 97.73 215.00 Estimated 12/26 165.10 65.00 Stated I&O Record In Out Bal 07/30 24hr Tot 570 0 570 07/29 24hr Tot 220 0 220 Medications (18) Active Scheduled Meds (8): 07/27/16 NIFEdipine (NIFEdipine 60 mg oral tablet, extended release) 60 mg PO Daily 07/29/16 aspirin 325 mg PO Daily 07/27/16 atorvastatin (Lipitor) 20 mg PO Bedtime 07/27/16 carvedilol 25 mg PO BID 07/28/16 chlordiazePOXIDE(Librium) (chlordiazePOXIDE 25 mg oral capsule ( Librium)) 25 mg PO QID 07/30/16 levETIRAcetam (Keppra 1000 mg oral tablet) 1,000 mg PO Q12H 07/27/16 sacubitril-valsartan 2 tab PO Q12H 07/27/16 sodium chloride (Saline Flush 0.9%) 10 ml IVP Q12H Unscheduled Meds (2): 07/27/16 influenza virus vaccine, inactivated 0.5 mL IM ONCALL 07/27/16 pneumococcal 23-valent vaccine 0.5 mL IM ONCALL PRN Meds (8): 07/28/16 LORazepam (Ativan) 1 mg IVP Q15Min 07/27/16 acetaminophen (Tylenol) 650 mg PO Q4H 07/28/16 benzocaine-menthol topical (Cepacol Sore Throat 15 mg-3.6 mg mucous membrane lozenge) 1 lozenge MUCOUS MEM Q4H 07/27/16 cloNIDine (cloNIDine 0.2 mg oral tablet) 0.2 mg PO Q4H 07/27/16 sodium chloride (Saline Flush 0.9%) 10 mL IVP PRN 07/27/16 sodium chloride (Saline Flush 0.9%) 10 ml IVP PRN 07/28/16 tramadol (tramadol 50 mg oral tablet) 50 mg PO Q4H 07/28/16 zolpidem (Ambien) 5 mg PO Bedtime One Time Meds: None Continuous Infusions: None ASSESSMENT Mr. Leslie is a 50 y/o right-hand dominant -[place]wegian male c PMH of CVA in 04/2016 c residual L hemiparesis and mild dysarthria, HTN, HLD, ETOH abuse, tobacco abuse who presented to [facility] followi ng episode of increased L hemiparesis and expressive aphasia the morning of that improved, c also reporting that pt had a seizure the evening of 07/27/2016, and possible [address] b rain without contrast performed upon arrival demonstrated a chronic R internal capusule/caudate head infarction, as well as interval development of a hypodensity in the R parietal lobe concerning for po ssible recent infarction. MRI brain without contrast completed , demonstrating acute R MCA infarction territory infarctions, c CTA brain/neck not demonstrating any hemodynamically significant stenosis/l esion. Echocardiogram not significantly changes from 2014, demonstrating LVEF 40-45%, mildly enlarged L atrium. Given history and findings, pt's presentation due to acute R MCA territory CVA (while nonc ompliant c daily anti-platelet therapy and continued tobacco abuse) c concern for seizure activity (? induced by suspected ETOH withdrawal). PLAN & TREATMENT -- neuro as described above -- CT brain without contrast results reviewed and discussed c pt -- MRI brain without contrast results reviewed, discussed c pt -- CTA brain/neck results reviewed and discussed c pt -- echo results reviewed, discussed c pt -- EEG results reviewed demonstrating findings consistent c a mild encephalopathy, and without any epileptiform activity -- continue Keppra 1000mg PO q12hr -- continue aspirin 325mg PO daily for stroke prophyalxis -- continue atorvastatin 20mg PO qHS for risk factor optimization -- labs reviewed: LDL 42, HDL 23, total cholesterol 127, Hgb A1C 5.9, mild hypokalemia 3.4, ETOH and UDS negative -- seizure precautions -- pt has been counseled extensively regarding ETOH and tobacco cessation, c pt verbalizing understanding and agreement of same, reporting is ready to quit -- per [place] state law, 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 Jan Ho. Thank you for including us in the care of this patient. Time: 35 minutes. Addendum by Maximilian Ho MD on I saw and evaluated the patient. I agree 07/30/2016 18:44 with the findings and the plan of care as documented in the note. Extracted from: Title: Neurology Consultation Author: Rin Morales Date: 07/28/16 Patient: ALLYSON LESLIE Age: 50 years Sex: Male : 1965 Associated Diagnoses: None Author: Rin Morales Basic Information Mr. Leslie is a 50 y/o right-hand dominant -[place]wegian male c PMH of CVA in 04/2016 c residual L hemiparesis and mild dysarthria, HTN, HLD, ETOH abuse, tobacco abuse who presented to [facility] followi ng episode of increased L hemiparesis and expressive aphasia the morning of that improved, c also reporting that pt had a seizure the evening of 07/27/2016, and possible [address] b rain without contrast performed upon arrival demonstrated a chronic R internal capusule/caudate head infarction, as well as interval development of a hypodensity in the R parietal lobe concerning for possible recent infarction. Chief Complaint 07/27/2016 14:50 [place] 07/27/2016 11:13 Pt reports left arm weakness, unable to hold anything with the left hand since yesterday, previous hx of stroke History of Present Illness Mr. Leslie is a 50 y/o right-hand dominant -[place]wegian male c PMH of CVA in 04/2016 c residual L hemiparesis and mild dysarthria, HTN, HLD, ETOH abuse, tobacco abuse who presented to [facility] followi ng episode of increased L hemiparesis and expressive aphasia the morning of that improved, c also reporting that pt had a seizure the evening of 07/27/2016, and possible [address] b rain without contrast performed upon arrival demonstrated a chronic R internal capusule/caudate head infarction, as well as interval development of a hypodensity in the R parietal lobe concerning for po ssible recent infarction. History obtained from pt and at bedside, and from medical records available for review. Pt and report that they woke up early yesterday morning, around 0300 and had s ometime to eat and watched a movie, then went back to bed around [id number] at which time pt was in his usual state of health. They then woke at approximately 0930, and noticed that pt was not speak ing to her, and was dragging his LLE when he ambulated, c LUE also weak and pt reporting some decreased sensation of these limbs as well. These symptoms are similar to his stroke symptoms in 04/2016, th ough at that time, his speech was heavily slurred, and this time he was not able to speak at all- pt describes that presentation as "I couldn't seem to figure out how to talk." Denies any other associat ed symptoms. Unclear how long this lasted, but his strength and sensation on the L has returned to baseline, c speech perhaps slightly more slurred than his new baseline. Pt's also reports that pt has not been taking his aspirin (325mg PO daily)- she states that she bought a bottle of it for him, but did not put it in his pill boxes, and he did not actively take it himself. 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 She also reports that pt was drinking heavier that usual from the -, and that he slept a lot the following 2 days without drinking ETOH, and then reportedly seized yesterda y, c pt reporting some mild tremor today. At present time, pt reports feeling well c strength at baseline, and perhaps mildly increased slurred speech. Review of Systems 12 point Review of Systems was reviewed, and pertinent findings have been included in HPI. Unless otherwise noted, the patient denies any bowel or bladder changes or saddle anesthesia. Patient denies fe vers, chills, sweats, nausea or vomiting. No heat/cold intolerance. No new/ acute changes in vision, fatigue, nasal congestion, sore throat, chest pain, palpitations, cough, shortness of breath, muscle c ramps, unexplained bruising or bleeding. No unexplained or unintentional weight changes. Health Status Allergies: Allergic Reactions (All) Severity Not Documented NKDA- No reactions were documented., Allergies (1) Active Reaction NKDA None Documented Current medications: (Selected) Inpatient Medications Ordered Ativan: 1 mg, 0.5 mL, IVP, Q15Min, PRN: Seizure Cepacol Sore Throat 15 mg-3.6 mg mucous membrane lozenge: 1 lozenge, MUCOUS MEM , Q4H, PRN: Sore Throat Keppra: 1,000 mg, 100 mL, 400 ml/hr, IVPB, Q12H Lipitor: 20 mg, 1 tab, PO, Bedtime NIFEdipine 60 mg oral tablet, extended release: 60 mg, 1 tab, PO, Daily Saline Flush 0.9%: 10 mL, IVP, PRN, PRN: Line Flush Saline Flush 0.9%: 10 ml, IVP, PRN, PRN: Line Flush Saline Flush 0.9%: 10 ml, IVP, Q12H Tylenol: 650 mg, 2 tab, PO, Q4H, PRN: Pain Score 1-3 carvedilol: 25 mg, 1 tab, PO, BID chlordiazePOXIDE 25 mg oral capsule (Librium): 25 mg, 1 cap, PO, QID cloNIDine 0.2 mg oral tablet: 0.2 mg, 1 tab, PO, Q4H, PRN: Hypertension influenza virus vaccine, inactivated: 0.5 mL, IM, ONCALL pneumococcal 23-valent vaccine: 0.5 mL, IM, ONCALL sacubitril-valsartan: 2 tab, PO, Q12H tramadol 50 mg oral tablet: 50 mg, 1 tab, PO, Q4H, PRN: Pain Score 1-3 Prescriptions Suspended potassium chloride 20 mEq/15 mL oral liquid: 20 mEq, 15 mL, PO, BID, for 5 day , 1.33 mEq/ml, 150 mL, 0 Refill(s) Documented Medications Suspended Entresto 49 mg-51 mg oral tablet: 1 tab, PO, BID Lipitor 20 mg oral tablet: 20 mg, 1 tab, PO, Daily NIFEdipine 60 mg oral tablet, extended release: 60 mg, 1 tab, PO, Daily carvedilol 25 mg oral tablet: 25 mg, 1 tab, PO, BID lisinopril 20 mg oral tablet: 20 mg, 1 tab, PO, BID, Medications (16) Active Scheduled: (9) atorvastatin 20 mg TAB 20 mg 1 tab, PO, Bedtime carvedilol 25 mg TAB 25 mg 1 tab, PO, BID chlordiazePOXIDE 25 mg CAP 25 mg 1 cap, PO, QID influenza virus vaccine (inactivated) quad PF 0.5 mL syringe 0.5 mL, IM, ONCALL levETIRAcetam 1000 mg/ 100 mL-NaCl 0.75% premix 1,000 mg 100 mL, IVPB, Q12H NIFEdipine 60 mg ERT CC 60 mg 1 tab, PO, Daily pneumococcal 23-polyvalent vaccine SOLN 0.5 mL, IM, ONCALL sacubitril-valsartan 24-26 mg TAB 2 tab, PO, Q12H sodium chloride 0.9% 10ml sterile flush syr BD 10 ml, IVP, Q12H Continuous: (0) PRN: (7) acetaminophen 325 mg TABLET 650 mg 2 tab, PO, Q4H benzocaine-menthol 15 mg - 3.6 mg lozenge 1 lozenge, MUCOUS MEM, Q4H cloNIDine 0.2 mg TAB 0.2 mg 1 tab, PO, Q4H LORazepam 2 mg/1 ml INJ VL 1 mg 0.5 mL, IVP, Q15Min sodium chloride 0.9% 10ml sterile flush syr BD 10 mL, IVP, PRN sodium chloride 0.9% 10ml sterile flush syr BD 10 ml, IVP, PRN traMADol 50 mg TAB 50 mg 1 tab, PO, Q4H Problem list: All Problems CHF (congestive heart failure) / SNOMED CT [id number] / Confirmed CVA (cerebral vascular accident) / SNOMED CT 822765687 / Confirmed HTN - Hypertension / SNOMED CT 3380504572 / Confirmed Hypercholesterolemia / SNOMED CT 60053433 / Confirmed Histories Past Medical History: Active CHF (congestive heart failure) ([id number]): Onset in 2012 at 47 years. HTN - Hypertension (9087998516) Hypercholesterolemia (39841599) CVA (cerebral vascular accident) (897634703) Resolved Diabetes ([id number]): Resolved. Spider bite wound (9734454870): Resolved. Syncope (425087374): Resolved. H/O: stroke (9838181797): Resolved. Family History: Type 1 diabetes mellitus Mother Sister Father High blood pressure Father Mother Migraine Father Stroke Father Alzheimer's disease Father Osteoarthritis Father Procedure history: Hand repair (382551199). Social History Social & Psychosocial Habits Alcohol 07/27/2016 Use: Current Type: Beer Frequency: Daily Previous [...] RN Employment/School 02/07/2014 Status: Employed Substance Abuse 07/27/2016 Use: None Tobacco 07/27/2016 Use: Current every day smoker Type: Cigarettes Tobacco use per day: 8 Number of years: 25 Total pack years: 12 Previous treatment: None Ready to change: No Concerns about tobacco use in household: No Exposure to Tobacco Smoke None Other Tobacco Frequency 1/3 pack per day Cigarette Smoking Last 365 Days Yes Reg Smoking Cessation Counseling Yes . 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 Pt currently smokes close to 1 ppd cigarettes, and drinks ETOH heavily per , inc luding an ETOH-energy drink combination. Pt's reports that he was previously supposed to go to ETOH rehab evaluation but was also supposed to start a new job that day, so he instead went to his new job and did not get evaluated for ETOH rehab program. Physical Examination VS/Measurements Measurements from flowsheet : Measurements 07/28/2016 04:18 Current Weight 99.318 kg 07/27/2016 11:13 Height 165.1 cm , Vital Signs (last 24 hrs) Last Charted Temp Oral H 99.3DegF (JUL 28 15:55) Heart Rate Peripheral 88 bpm (DEC 27 15:55) Resp Rate 20 BRMIN (JUL 28) SBP H 157mmHg (JUL 28) DBP 89 mmHg (JUL 28:) SpO2 98 % (JUL 28) GENERAL: Well-developed, well-nourished, in no apparent distress resting in bed c at bedside. HEENT: Normocephalic and atraumatic. Normal conjunctivae , no scleral icterus, pupils equal round reacti ve to light, extraocular movements intact. Normal hearing to finger rub bilaterally, no tonsillar exudates, neck supple. CHEST: No audible wheezes heard, regular respirations without use of accessory m uscles. CARDIOVASCULAR: No palpable thrills, regular rate and rhythm. ABDOMEN : Soft, nondistended, nontender. INTEGUMENTARY: no cutaneous lesions, no ulcerations noted on exposed skin. SPINE: no focal TTP over c-spine. No TTP paraspinous musculature. EXTREMITIES: no clubbing, acyanotic, nonedematous, no contractures on exposed areas. NEUROLOGIC: Patient is alert and oriented x3. Speech is fluent and appropriate, at times mildly slurred, reliably follows commands. EOMI without nystagmus. Facial motion and sensation intact c mild L nasolabial fold flattening noted. Tongue protrudes midline, pa late elevation intact. Shoulder shrug symmetrical. No rhythmic extremity jerking, facial twitching, head/eye version noted. Strength: 5/5 right upper and lower extremities including deltoid, biceps, t riceps, wrist extension, rivet hole machine operator, iliopsoas, quadriceps, anterior tibialis, gastrocnemius and extensor hallucis longus. Left upper and lower extremities including deltoid 5-/5, biceps 5-/5, triceps 4+-5-/5 , wrist extension 5-/5, rivet hole machine operator 5-/5, iliopsoas 4+-5-/5, quadriceps 5-/5, anterior tibialis 4/5, gastrocnemius 5-/5 and extensor hallucis longus 4-5/5. Reflexes: No clonus. Torres negative. Toes downgoing . Very mild LUE drift noted. Sensation: intact to light touch bilateral upper and lower extremities. Cerebellar: very mild dysmetria, dysdiadokinesia noted of LUE seemingly related to mild weakness. Gait: deferred. Review / Management Results review: Labs (Last four charted values) WBC 6.0 (JUL 27) Hgb 14.3 (JUL 27) Hct 42.3 (JUL 27) Plt 265 (JUL 27) Na 143 (JUL 27) K L 3.4 (JUL 27) CO2 27 (JUL 27) Cl 103 (JUL 27) Cr 0.76 (JUL 27) BUN 11 (JUL 27) Glucose Random 93 (JUL 27) Ca L 8.3 (JUL 27) PT 13.6 (JUL 27) INR 1.02 (JUL 27) PTT 28.3 (JUL 27) Troponin <0.02 (JUL 27) CK MB 1.0 (JUL 27) Total CK H 244 (JUL 27) . Impression and Plan Mr. Leslie is a 50 y/o right-hand dominant -[place]wegian male c PMH of CVA in 04/2016 c residual L hemiparesis and mild dysarthria, HTN, HLD, ETOH abuse, tobacco abuse who presented to [facility] followi ng episode of increased L hemiparesis and expressive aphasia the morning of that improved, c also reporting that pt had a seizure the evening of 07/27/2016, and possible [address] b rain without contrast performed upon arrival demonstrated a chronic R internal capusule/caudate head infarction, as well as interval development of a hypodensity in the R parietal lobe concerning for po ssible recent infarction. Given history and findings, further evaluation of possible new CVA (while noncompliant c daily anti-platelet therapy and continued tobacco abuse) c concern for seizure activity (induced by suspected ETOH withdrawal) vs other is in progress. -- neuro as described above -- CT brain without contrast results reviewed and discussed c pt -- EEG ordered -- start Keppra 1000mg IVPB q12hr -- resume aspirin 325mg Po daily for stroke prophyalxis -- continue atorvastatin 20mg PO qHS for risk factor optimization -- labs reviewed: LDL 42, HDL 23, total cholesterol 127, Hgb A1C 5.9, mild hypokalemia 3.4 -- additional lab studies ordered: ETOH level, UDS -- seizure precautions -- will also start Librium for ETOH withdrawal -- pt counseled extensively regarding ETOH and tobacco cessation, c pt verbalizing understanding and agreement of same, reporting is ready to quit -- per [place] state law, pt is not to drive/operate a motor vehicle (including 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 Jan Ho. Thank you for including us in the care of this patient. Time: 90 minutes. Addendum by Maximilian Ho MD on I saw and evaluated the patient. I agree 07/28/2016 21:14 with the findings and the plan of care as documented in the note.
--- OUTSIDE RECORDS SUMMARY | 2018-08-27 17:30 | XMS REPORT | Summary of Care ---
:1965 Author Organization [facility] Address [address] [place] [phone]- Encounter HQ Jocelyn(PANDA) [id number] Date(s): 08/27/16 - 08/27/[address] [address]- Discharge Diagnosis: Seizure Discharge Disposition: Home or Self Care Attending Physician: Jim Trujillo DO Vital Signs Most recent to oldest [Reference Range]: 1 2 Temperature Oral [96.4-99.1 DegF] 98.8 DegF 99.0 DegF (08/27/16 3:32 PM) (08/27/16 1:15 PM) Blood Pressure [90-140/60-90 mmHg] 147/94 mmHg 135/84 mmHg *HI* (08/27/16 1:15 PM) (08/27/16 3:32 PM) Respiratory Rate [14-20 BRMIN] 16 BRMIN 18 BRMIN (08/27/16 3:32 PM) (08/27/16 1:15 PM) Peripheral Pulse Rate [60-100 bpm] 80 bpm 86 bpm (08/27/16 3:32 PM) (08/27/16 1:15 PM) Weight 97.727 kg (08/27/16 1:15 PM) Problem List Condition Effective Dates Status Health Status Informant CHF (congestive heart 2013 Active failure)(Confirmed) CVA (cerebral vascular Active accident)(Confirmed) Diabetes(Confirmed) Resolved H/O: stroke(Confirmed) Resolved HTN - Hypertension(Confirmed) Active Hypercholesterolemia(Confirmed) Active Seizure(Confirmed) Active Spider bite wound(Confirmed) Resolved Syncope(Confirmed) Resolved Allergies, Adverse Reactions, Alerts Substance Reaction Severity Status NKDA Active Medications Saline Flush 0.9% 10 mL, Route: IVP, Drug Form: INJ, Dosing Weight 97.727, kg, PRN, PRN Line Flush , Start date: 08/27/16 13:45:00 PR SPECIALIST, Duration: 30 day, Stop date: 09/26/16 13:44 :00 PR SPECIALIST Notes: Same as: BD Posiflush Sterile Start Date: 08/27/16 Stop Date: 08/27/16 Status: DiscontinuedTylenol 650 mg, 2 tab, Route: PO, Drug form: TAB, ONCE, Dosing Weight 97.727, kg, Priority: STAT, Start date: 08/27/16 15:28:00 PR SPECIALIST, Stop date: 08/27/16 15:28:00 PR SPECIALIST Notes: Do not exceed 4 gm/day. (Same as: Tylenol) Start Date: 08/27/16 Stop Date: 08/27/16 Status: Completed Results ELECTROLYTES Most recent to oldest [Reference Range]: 1 Sodium Lvl [135-145 mEq/L] 141 mEq/L (08/27/16 1:52 PM) Potassium Lvl [3.5-5.1 mEq/L] 3.7 mEq/L (08/27/16 1:52 PM) Chloride Lvl [95-109 mEq/L] 105 mEq/L (08/27/16 1:52 PM) CO2 [24-32 mEq/L] 30 mEq/L (08/27/16 1:52 PM) AGAP [10.0-20.0 mEq/L] 9.7 mEq/L *LOW* (08/27/16 1:52 PM) CHEM PANEL Most recent to oldest [Reference Range]: 1 Creatinine Lvl [0.50-1.40 mg/dL] 0.84 mg/dL (08/27/16 1:52 PM) eGFR 104 mL/min/1.73m2 1 *NA* (08/27/16 1:52 PM) BUN [7-22 mg/dL] 12 mg/dL (08/27/16 1:52 PM) B/C Ratio [6-25] 14 (08/27/16 1:52 PM) Glucose Lvl [70-99 mg/dL] 97 mg/dL (08/27/16 1:52 PM) Total Protein [6.4-8.4 g/dL] 7.4 g/dL (08/27/16 1:52 PM) Albumin Lvl [3.5-5.0 g/dL] 4.0 g/dL (08/27/16 1:52 PM) Globulin [2.7-4.2 g/dL] 3.4 g/dL (08/27/16 1:52 PM) A/G Ratio [0.7-1.6] 1.2 (08/27/16 1:52 PM) Calcium Lvl [8.5-10.5 mg/dL] 8.3 mg/dL *LOW* (08/27/16 1:52 PM) ALT [0-65 unit/L] 18 unit/L (08/27/16 1:52 PM) AST [0-37 unit/L] 22 unit/L (08/27/16 1:52 PM) Alk Phos [39-136 unit/L] 71 unit/L (08/27/16 1:52 PM) Bili Total [0.2-1.3 mg/dL] 0.4 mg/dL (08/27/16 1:52 PM) 1Result Comment: The eGFR is calculated [...] [Reference Range]: 1 Total CK [12-191 unit/L] 320 unit/L *HI* (08/27/16 1:52 PM) CK MB [0.5-3.6 ng/mL] 2.0 ng/mL (08/27/16 1:52 PM) CK MB Index [0.0-2.5] 0.6 (08/27/16 1:52 PM) Troponin-I [0.00-0.40 ng/mL] <0.02 ng/mL (08/27/16 1:52 PM) DRUG SCREEN Most recent to oldest [Reference Range]: 1 U Amph Scr [Negative] Negative *NA* (08/27/16 1:52 PM) U Armida Scr [Negative] Negative *NA* (08/27/16 1:52 PM) U Benzodia Scr [Negative] Negative *NA* (08/27/16 1:52 PM) U Cocaine Scr [Negative] Negative *NA* (08/27/16 1:52 PM) U Opiate Scr [Negative] Negative *NA* (08/27/16 1:52 PM) U Phencyc Scr [Negative] Negative *NA* (08/27/16 1:52 PM) U Cannab Scr [Negative] Negative *NA* (08/27/16 1:52 PM) UDS Note See Note *NA* (08/27/16 1:52 PM) URINE AND STOOL Most recent to oldest [Reference Range]: 1 UA Turbidity [Clear] Clear (08/27/16 1:52 PM) UA Color [Yellow] Yellow *NA* (08/27/16 1:52 PM) UA pH [5.0-8.0] 6.5 (08/27/16 1:52 PM) UA Spec Grav [<=1.030] 1.020 (08/27/16 1:52 PM) UA Glucose [Negative mg/dL] Negative mg/dL (08/27/16 1:52 PM) UA Blood [Negative] Negative (08/27/16 1:52 PM) UA Ketones [Negative mg/dL] Negative mg/dL *NA* (08/27/16 1:52 PM) UA Protein [Negative mg/dL] Negative mg/dL (08/27/16 1:52 PM) UA Urobilinogen [0.1-1.0 EU/dL] 2.0 EU/dL *HI* (08/27/16 1:52 PM) UA Bili [Negative] Negative *NA* (08/27/16 1:52 PM) UA Leuk Est [Negative] Negative (08/27/16 1:52 PM) UA Nitrite [Negative] Negative (08/27/16 1:52 PM) UA Sq Epi [Few] None Seen (08/27/16 1:52 PM) HEMATOLOGY Most recent to oldest [Reference Range]: 1 WBC [3.7-10.4 K/CMM] 6.3 K/CMM (08/27/16 1:52 PM) RBC [4.70-6.10 M/CMM] 4.80 M/CMM (08/27/16 1:52 PM) Hgb [14.0-18.0 g/dL] 13.4 g/dL *LOW* (08/27/16 1:52 PM) Hct [42.0-54.0 %] 40.2 % *LOW* (08/27/16 1:52 PM) MCV [80.0-94.0 fL] 83.9 fL (08/27/16 1:52 PM) MCH [27.0-31.0 pg] 28.0 pg (08/27/16 1:52 PM) MCHC [32.0-36.0 g/dL] 33.4 g/dL (08/27/16 1:52 PM) RDW [11.5-14.5 %] 14.8 % *HI* (08/27/16 1:52 PM) Platelet [133-450 K/CMM] 195 K/CMM (08/27/16 1:52 PM) MPV [7.4-10.4 fL] 8.8 fL (08/27/16 1:52 PM) Segs [45.0-75.0 %] 63.4 % (08/27/16 1:52 PM) Lymphocytes [20.0-40.0 %] 24.5 % (08/27/16 1:52 PM) Monocytes [2.0-12.0 %] 9.1 % (08/27/16 1:52 PM) Eosinophils [0.0-4.0 %] 2.5 % (08/27/16 1:52 PM) Basophils [0.0-1.0 %] 0.5 % (08/27/16 1:52 PM) Segs-Bands # [1.5-8.1 K/CMM] 4.0 K/CMM (08/27/16 1:52 PM) Lymphocytes # [1.0-5.5 K/CMM] 1.5 K/CMM (08/27/16 1:52 PM) Monocytes # [0.0-0.8 K/CMM] 0.6 K/CMM (08/27/16 1:52 PM) Eosinophils # [0.0-0.5 K/CMM] 0.2 K/CMM (08/27/16 1:52 PM) Immunizations Given and Recorded Vaccine Date [...]
--- OUTSIDE RECORDS SUMMARY | 2018-08-27 17:30 | XMS REPORT | Summary of Care ---
:1965 Author Organization [facility] Address [address] [place] [address]- Encounter HQ Chadntr_camacho(FIN) [id number] Date(s): 02/09/17 - 02/09/[address] [address]- [phone] Discharge Disposition: Home or Self Care Vital Signs No data available for this section Problem List Condition Effective Dates Status Health Status Informant CHF (congestive heart 2013 Active failure)(Confirmed) CVA (cerebral vascular Active accident)(Confirmed) Diabetes(Confirmed) Resolved H/O: stroke(Confirmed) Resolved HTN - Hypertension(Confirmed) Active Hypercholesterolemia(Confirmed) Active Obesity(Confirmed) Active Seizure(Confirmed) Active Spider bite wound(Confirmed) Resolved [...] MRI of brain and brain stem 07/29/16 Angioplasty of blood vessel Hand repair Social History Social History Type Response Substance Abuse Use: None. Employment/School Status: Employed. Alcohol Current, Type Beer. Frequency: Daily. Previous treatment: None. Alcohol use interferes with work or home: No. Drinks more than intended: No. Others hurt by drinking: No. Ready to change: No. Household alcohol concerns: No.1, 2 Smoking Status Current every day smoker; Type: Cigarettes; Tobacco use per day : 20; Number of years: 25; Total pack years: 12; Previous treatment: None; Ready to change: No; Concerns about tobacco use in household: No; Exposure to Tobacco Smoke None; Other Tobacco Frequency 1 pack a day.; Cigarette Smoking Last 365 Days Yes; Reg Smoking Cessation Counseling Yes 11-2 beers a day. 09/14/1720 beer a day. Assessment and Plan No data available for this section
--- OUTSIDE RECORDS SUMMARY | 2018-08-27 17:30 | XMS REPORT | Summary of Care ---
:1965 Author Organization [facility] Encounter HQ Encntr_alias(FIN) [id number] Date(s): 05/26/16 - 06/24/16 [facility] Discharge Disposition: Home or Self Care Attending [...]
--- OUTSIDE RECORDS SUMMARY | 2018-08-27 17:31 | XMS REPORT | Summary of Care ---
:1965 Author Organization [facility] Address [address] [address]- Encounter HQ Chadntr_alifrancisca(FIN) [id number] Date(s): 11/04/17 - 11/05/17 [facility] [address] [id number] [phone] Vital Signs No data available for this [...] and Recorded Vaccine Date Status Refusal Reason influenza virus vaccine, inactivated 05/12/14 Given influenza virus vaccine, inactivated 07/21/13 Given diphtheria/pertussis, acel/tetanus adult 05/09/14 Given tuberculin purified protein derivative1 07/18/13 Given 1Result Comment: given in left forearm Procedures Procedure Date Related Diagnosis Body Site Status MRI of brain and brain stem 07/29/16 Completed Angioplasty of blood vessel Completed Hand repair Completed Social History Social History Type Response Substance Abuse Use: None. Employment/School Status: Employed. Alcohol Current, Type Beer. Frequency: Daily. Previous treatment: None. Alcohol use interferes with work or home: No. Drinks more than intended: No. Others hurt by drinking: No. Ready to change: No. Household alcohol concerns: No.1, 2 Smoking Status Current every day smoker; Type: Cigarettes; Previous treatment : None; Ready to change: No; Concerns about tobacco use in household: No; Exposure to Tobacco Smoke None; Cigarette Smoking Last 365 Days Yes; Reg Smoking Cessation Counseling Yes; Tobacco use per day: 20; Number of years: 25; Total pack years: 12; Other Tobacco Frequency 1 pack a day.; entered on: 04/18/17 11-2 beers a day. 09/14/1720 beer a day. Assessment and Plan No data available for this section
--- OUTSIDE RECORDS SUMMARY | 2018-08-27 17:31 | XMS REPORT | Summary of Care ---
:1965 Author Organization [facility] Address [address] [place], [place] [address]- Encounter HQ Encntr_alifrancisca(FIN) [id number] Date(s): 04/18/17 - 04/19/17 [facility] [address] [place] [address]- Discharge Disposition: Home or Self Care Attending Physician: Amena Garcia MD Vital Signs Most recent to oldest 1 2 3 [Reference Range]: Height 165.1 cm (04/18/17 1:56 PM) Temperature Oral [96.4-99.1 98.9 DegF 98.3 DegF 98.6 DegF DegF] (04/19/17 10:19 AM) (04/19/17 7:04 AM) (04/19/17 3:39 AM) Blood Pressure [90-140/60-90 137/89 mmHg 144/90 mmHg 129/74 mmHg mmHg] (04/19/17 10:19 AM) *HI* (04/19/17 3:39 AM) (04/19/17 7:04 AM) Respiratory Rate [14-20 18 BRMIN 18 BRMIN 18 BRMIN BRMIN] (04/19/17 11:08 AM) (04/19/17 10:19 AM) (04/19/17 7:04 AM) Peripheral Pulse Rate [60-100 53 bpm 61 bpm 69 bpm bpm] *LOW* (04/19/17 7:04 AM) (04/19/17 3:39 AM) (04/19/17 10:19 AM) Weight 100 kg (04/18/17 1:56 PM) Body Mass Index 36.69 m2 (04/18/17 1:56 PM) Problem List Condition Effective Dates Status Health Status Informant CHF (congestive heart 2013 Active failure)(Confirmed) CVA (cerebral vascular Active accident)(Confirmed) Diabetes(Confirmed) Resolved H/O: stroke(Confirmed) Resolved HTN - Hypertension(Confirmed) Active Hypercholesterolemia(Confirmed) Active Obesity(Confirmed) Active Seizure(Confirmed) Active Spider bite wound(Confirmed) Resolved Syncope(Confirmed) Resolved Allergies, Adverse Reactions, Alerts Substance Reaction Severity Status NKDA Active Medications aspirin 324 mg, 4 tab, Route: CHEW, Drug form: CHEWTAB, ONCE, Dosing Weight 100, kg, Priority: STAT, Start date: 04/18/17 17:30:00 CDT, Stop date: 04/18/17 17:30:00 CDT Notes: Take with food. Start Date: 04/18/17 Stop Date: 04/18/17 Status: Completedaspirin 325 mg tablet, enteric coated 325 mg, 1 tab, Route: PO, Drug form: ECTAB, Daily, Dosing Weight 100, kg, Priority: STAT, Start date: 04/18/17 17:33:00 CDT, Duration: 30 day, Stop date: 05/18/17 9:00:00 CDT Notes: (Do Not Crush) Do not crush or chew. Start Date: 04/18/17 Stop Date: 04/19/17 Status: Discontinuedaspirin 325 mg tablet, enteric coated 325 mg=1 tab, PO, Daily, # 100 tab, 0 Refill(s), Pharmacy: [facility]/pharmacy #[id number] Start Date: 04/19/17 Status: Orderedatorvastatin 40 mg, 1 tab, Route: PO, Drug form: TAB, Bedtime, Dosing Weight 100, kg, Start date: 04/18/17 21:00:00 CDT, Duration: 30 day, Stop date: 05/17/17 21:00:00 CDT Notes: (Same as: Lipitor) Start Date: 04/18/17 Stop Date: 04/18/17 Status: Discontinuedatorvastatin 80 mg, 2 tab, Route: PO, Drug form: TAB, Bedtime, Dosing Weight 100, kg, Start date: 04/18/17 21:00:00 CDT, Duration: 30 day, Stop date: 05/17/17 21:00:00 CDT Notes: (Same as: Lipitor) Start Date: 04/18/17 Stop Date: 04/19/17 Status: Discontinuedatorvastatin 20 mg oral tablet 20 mg=1 tab, PO, Bedtime, # 30 tab, 0 Refill(s), Pharmacy: [facility]/pharmacy #[id number] Start Date: 04/19/17 Status: Orderedcarvedilol 25 mg, 1 tab, Route: PO, Drug form: TAB, Q12H, Dosing Weight 100, kg, Start date : 04/18/17 21:00:00 CDT, Duration: 30 day, Stop date: 05/18/17 9:00:00 CDT Notes: Give with food. (Same As: Coreg) Start Date: 04/18/17 Stop Date: 04/19/17 Status: Discontinuedcarvedilol 25 mg oral tablet 25 mg=1 tab, PO, BID, # 60 tab, 0 Refill(s), Pharmacy: [facility]/pharmacy #[id number] Start Date: 04/19/17 Status: Orderedclopidogrel 75 mg, 1 tab, Route: PO, Drug form: TAB, Daily, Dosing Weight 100, kg, Priority : STAT, Start date: 04/18/17 17:33:00 CDT, Duration: 30 day, Stop date: 9:00:00 CDT Notes: (Same As: Plavix) Start Date: 04/18/17 Stop Date: 04/19/17 Status: DiscontinueddiphenhydrAMINE 25 mg, 0.5 mL, Route: IVP, Drug form: INJ, ONCE, Dosing Weight 100, kg, Priority : STAT, Start date: 04/18/17 15:27:00 CDT, Stop date: 04/18/17 15:27:00 CDT Notes: (Same as: Benadryl) Start Date: 04/18/17 Stop Date: 04/18/17 Status: Completeddocusate 100 mg, 1 cap, Route: PO, Drug form: CAP, Q12H, Dosing Weight 100, kg, PRN as needed for constipation, Start date: 04/18/17 17:33:00 CDT, Duration: 30 day, Stop date: 05/18/17 17:32:00 CDT Notes: (Same as: Colace) (Do Not Crush) Start Date: 04/18/17 Stop Date: 04/19/17 Status: Discontinuedfamotidine 20 mg, 1 tab, Route: PO, Drug form: TAB, Q12H, Dosing Weight 100, kg, PRN Indigestion, Start date: 04/18/17 17:33:00 CDT, Duration: 30 day, Stop date: 17:32:00 CDT Notes: (Same as: Pepcid) Start Date: 04/18/17 Stop Date: 04/19/17 Status: Discontinuedgabapentin 300 mg oral capsule 300 mg=1 cap, PO, TID, # 90 cap, 1 Refill(s) Start Date: 04/18/17 Status: Orderedheparin 5000 units/mL injectable solution 5,000 unit, 1 mL, Route: SUB-Q, Drug form: INJ, Q8H, Dosing Weight 100, kg, Start date: 04/19/17 0:00:00 CDT, Duration: 30 day, Stop date: 05/18/17 16:00: 00 CDT Notes: porcine heparin Start Date: 04/19/17 Stop Date: 04/19/17 Status: DiscontinuedhydrALAZINE 10 mg, 0.5 mL, Route: IVP, Drug form: INJ, Q4H, Dosing Weight 100, kg, PRN Other -See Comment, Possible stroke patient - allow for some permissive hypertension, Start date: 04/18/17 17:33:00 CDT, Duration: 30 day, Stop date: 17:32:00 CDT, SBP... Notes: (Same as: Apresoline)Push over 5 minutes Start Date: 04/18/17 Stop Date: 04/19/17 Status: Discontinuedibuprofen 800 mg, PO, BID, 0 Refill(s) Start Date: 04/18/17 Status: OrderedKeppra 750 mg oral tablet 750 mg, 1.5 tab, Route: PO, Drug form: TAB, BID, Dosing Weight 100, kg, Start date: 04/18/17 21:00:00 CDT, Duration: 30 day, Stop date: 05/18/17 17:00:00 CDT Notes: (Same as:Keppra) Start Date: 04/18/17 Stop Date: 04/19/17 Status: Discontinuedmetoclopramide 10 mg, 2 mL, Route: IVP, Drug form: INJ, ONCE, Dosing Weight 100, kg, Priority: STAT, Start date: 04/18/17 15:27:00 CDT, Stop date: 04/18/17 15:27:00 CDT Notes: (Same as: Reglan) Start Date: 04/18/17 Stop Date: 04/18/17 Status: CompletedNIFEdipine 60 mg oral tablet, extended release 60 mg=1 tab, PO, Daily, # 30 tab, 0 Refill(s), [id number] Start Date: 04/19/17 Status: OrderedPlavix 75 mg oral tablet 75 mg=1 tab, PO, Daily, # 30 tab, 0 Refill(s), Pharmacy: [facility]/pharmacy #[id number] Start Date: 04/19/17 Stop Date: 05/19/17 Status: Orderedsacubitril-valsartan 97 mg-103 mg oral tablet 1 tab, Route: PO, Drug Form: TAB, Dosing Weight 100, kg, Q12H, Start date: 04/18 21:06:00 CDT, Duration: 30 day, Stop date: 05/18/17 21:00:00 CDT Notes: (Same as: Entresto)Avoid in patients with history of angioedema due to BECKY inhibitor or ARB therapy. Do not use concomitantly or within 36 hours of BECKY inhibitors Start Date: 04/18/17 Stop Date: 04/19/17 Status: Discontinuedsacubitril-valsartan 97 mg-103 mg oral tablet 1 tab, PO, BID, # 60 tab, 0 Refill(s), [id number] Start Date: 04/19/17 Stop Date: 05/19/17 Status: OrderedSaline Flush 0.9% 10 ml, Route: IVP, Drug Form: INJ, Dosing Weight 100, kg, Q12H, Start date: 21:00:00 CDT, Duration: 30 day, Stop date: 05/18/17 9:00:00 CDT Notes: (Same as: BD Posiflush) Start Date: 04/18/17 Stop Date: 04/19/17 Status: DiscontinuedSaline Flush 0.9% 10 ml, Route: IVP, Drug Form: INJ, Dosing Weight 100, kg, PRN, PRN Line Flush, Start date: 04/18/17 17:33:00 CDT, Duration: 30 day, Stop date: 05/18/17 17:32: 00 CDT Start Date: 04/18/17 Stop Date: 04/18/17 Status: DeletedSaline Flush 0.9% 10 mL, Route: IVP, Drug Form: INJ, Dosing Weight 100, kg, PRN, PRN Line Flush, Start date: 04/18/17 15:27:00 CDT, Duration: 30 day, Stop date: 05/18/17 15:26: 00 CDT Notes: (Same as: BD Posiflush) Start Date: 04/18/17 Stop Date: 04/19/17 Status: DiscontinuedSt. Mitchell's wort oral capsule 1 tab, PO, [id number], 0 Refill(s) Start Date: 04/18/17 Status: OrderedTopamax 25 mg oral tablet See Instructions, 1 tab PO BID for 7 days, then 2 tab PO BID thereafter, # 70 tab, 0 Refill(s), Pharmacy: [facility]/pharmacy #[id number] Start Date: 04/19/17 Status: Orderedtrazodone 50 mg, 1 tab, Route: PO, Drug form: TAB, Bedtime, Dosing Weight 100, kg, PRN Sleep, Start date: 04/18/17 17:33:00 CDT, Duration: 30 day, Stop date: 05/18/17 17:32:00 CDT, .. Notes: (Same As: Desyrel) Start Date: 04/18/17 Stop Date: 04/19/17 Status: DiscontinuedTums 500 mg, 1 tab, Route: CHEW, Drug form: CHEWTAB, Q8H, Dosing Weight 100, kg, PRN Indigestion, Start date: 04/18/17 17:33:00 CDT, Duration: 30 day, Stop date: 17:32:00 CDT Notes: (Same As: Tom)Calcium Carbonate 500 lo=709 mg elemental calcium Dose=_ mg calcium carbonate ( mg elemental calcium) Start Date: 04/18/17 Stop Date: 04/19/17 Status: DiscontinuedTylenol 650 mg, 2 tab, Route: PO, Drug form: TAB, Q6H, Dosing Weight 100, kg, PRN Pain 1 -3/Temp > 100.4 F, Start date: 04/18/17 17:33:00 CDT, Duration: 30 day, Stop date: 05/18/17 17:32:00 CDT Notes: Do not exceed 4 gm/day. (Same as: Tylenol) Start Date: 04/18/17 Stop Date: 04/19/17 Status: DiscontinuedZofran 4 mg, 2 mL, Route: IV, Drug form: INJ, Q8H, Dosing Weight 100, kg, PRN Nausea, Start date: 04/18/17 17:33:00 CDT, Duration: 30 day, Stop date: 05/18/17 17:32: 00 CDT Notes: (Same as: Zofran) MEDICATION WASTE Product Size: 4 mgProduct Wasted: ___ mg Start Date: 04/18/17 Stop Date: 04/19/17 Status: Discontinued Results ELECTROLYTES Most recent to oldest [Reference Range]: 1 2 Sodium Lvl [135-145 mEq/L] 140 mEq/L 140 mEq/L (04/19/17 5:10 AM) (04/18/17 4:20 PM) Potassium Lvl [3.5-5.1 mEq/L] 3.5 mEq/L 4.0 mEq/L (04/19/17 5:10 AM) (04/18/17 4:20 PM) Chloride Lvl [95-109 mEq/L] 108 mEq/L 108 mEq/L (04/19/17 5:10 AM) (04/18/17 4:20 PM) CO2 [24-32 mEq/L] 24 mEq/L 26 mEq/L (04/19/17 5:10 AM) (04/18/17 4:20 PM) AGAP [10.0-20.0 mEq/L] 11.5 mEq/L 10.0 mEq/L (04/19/17 5:10 AM) (04/18/17 4:20 PM) CHEM PANEL Most recent to oldest [Reference Range]: 1 2 Creatinine Lvl [0.50-1.40 mg/dL] 0.78 mg/dL 0.67 mg/dL (04/19/17 5:10 AM) (04/18/17 4:20 PM) eGFR 106 mL/min/1.73m2 1 113 mL/min/1.73m2 2 *NA* *NA* (04/19/17 5:10 AM) (04/18/17 4:20 PM) BUN [7-22 mg/dL] 12 mg/dL 7 mg/dL (04/19/17 5:10 AM) (04/18/17 4:20 PM) B/C Ratio [6-25] 10 (04/18/17 4:20 PM) Glucose Lvl [70-99 mg/dL] 92 mg/dL 92 mg/dL (04/19/17 5:10 AM) (04/18/17 4:20 PM) Total Protein [6.4-8.4 g/dL] 7.7 g/dL (04/18/17 4:20 PM) Albumin Lvl [3.5-5.0 g/dL] 3.7 g/dL (04/18/17 4:20 PM) Globulin [2.7-4.2 g/dL] 4.0 g/dL (04/18/17 4:20 PM) A/G Ratio [0.7-1.6] 0.9 (04/18/17 4:20 PM) Calcium Lvl [8.5-10.5 mg/dL] 8.4 mg/dL 8.7 mg/dL *LOW* (04/18/17 4:20 PM) (04/19/17 5:10 AM) Phosphorus [2.5-4.5 mg/dL] 3.7 mg/dL (04/19/17 5:10 AM) Magnesium Lvl [1.8-2.4 mg/dL] 2.1 mg/dL (04/19/17 5:10 AM) ALT [0-65 unit/L] 30 unit/L (04/18/17 4:20 PM) AST [0-37 unit/L] 29 unit/L (04/18/17 4:20 PM) Alk Phos [39-136 unit/L] 69 unit/L (04/18/17 4:20 PM) Bili Total [0.2-1.3 mg/dL] 0.4 mg/dL (04/18/17 4:20 PM) 1Result Comment: The eGFR is calculated [...] recent to oldest [Reference Range]: 1 2 Total CK [12-191 unit/L] 226 unit/L *HI* (04/18/17 4:20 PM) CK MB [0.5-3.6 ng/mL] 1.2 ng/mL (04/18/17 4:20 PM) CK MB Index [0.0-2.5] 0.5 (04/18/17 4:20 PM) Troponin-I [0.00-0.40 ng/mL] <0.02 ng/mL (04/18/17 4:20 PM) LIPIDS Most recent to oldest [Reference Range]: 1 2 CHD Risk [4.00-7.30] 3.80 *LOW* (04/18/17 5:50 PM) Chol [<=199 mg/dL] 95 mg/dL (04/18/17 5:50 PM) Trig [<=149 mg/dL] 63 mg/dL (04/18/17 5:50 PM) HDL [>=61 mg/dL] 25 mg/dL *LOW* (04/18/17 5:50 PM) LDL (Calculated) [<=99 mg/dL] 57 mg/dL (04/18/17 5:50 PM) VLDL 13 *NA* (04/18/17 5:50 PM) SPECIAL CHEMISTRY Most recent to oldest [Reference Range]: 1 2 Hgb A1C [<=5.6 %] 6.2 % *HI* (04/18/17 5:50 PM) ANEMIA STUDY Most recent to oldest [Reference Range]: 1 2 Vitamin B12 Lvl [254-1320 pg/mL] 511 pg/mL (04/18/17 5:50 PM) Folate Lvl [>=3.0 ng/mL] 18.6 ng/mL (04/18/17 5:50 PM) TOXICOLOGY Most recent to oldest [Reference Range]: 1 2 Etoh (%) <0.003 % (04/18/17 4:20 PM) Ethanol Lvl <3.0 mg/dL (04/18/17 4:20 PM) URINE AND STOOL Most recent to oldest [Reference Range]: 1 2 UA Turbidity [Clear] Clear (04/18/17 4:20 PM) UA Color [Yellow] Light Yellow *NA* (04/18/17 4:20 PM) UA pH [5.0-8.0] 6.0 (04/18/17 4:20 PM) UA Spec Grav [<=1.030] 1.009 (04/18/17 4:20 PM) UA Glucose [Negative mg/dL] Negative mg/dL *NA* (04/18/17 4:20 PM) UA Blood [Negative] Negative (04/18/17 4:20 PM) UA Ketones [Negative mg/dL] Negative mg/dL *NA* (04/18/17 4:20 PM) UA Protein [Negative mg/dL] Negative mg/dL (04/18/17 4:20 PM) UA Urobilinogen [0.1-1.0 mg/dL] <=1.0 mg/dL *NA* (04/18/17 4:20 PM) UA Bili [Negative] Negative *NA* (04/18/17 4:20 PM) UA Leuk Est [Negative] Small *ABN* (04/18/17 4:20 PM) UA Nitrite [Negative] Negative (04/18/17 4:20 PM) UA WBC [0-5 /HPF] 6 /HPF *HI* (04/18/17 4:20 PM) UA RBC [0-2 /HPF] 4 /HPF *HI* (04/18/17 4:20 PM) UA Sq Epi None Seen *NA* (04/18/17 4:20 PM) UA Mucus [None Seen /LPF] Few /LPF *NA* (04/18/17 4:20 PM) HEMATOLOGY Most recent to oldest [Reference Range]: 1 2 WBC [3.7-10.4 K/CMM] 5.9 K/CMM 6.6 K/CMM (04/19/17 5:10 AM) (04/18/17 4:20 PM) RBC [4.70-6.10 M/CMM] 4.55 M/CMM 4.79 M/CMM *LOW* (04/18/17 4:20 PM) (04/19/17 5:10 AM) Hgb [14.0-18.0 g/dL] 12.8 g/dL 13.4 g/dL *LOW* *LOW* (04/19/17 5:10 AM) (04/18/17 4:20 PM) Hct [42.0-54.0 %] 38.4 % 39.8 % *LOW* *LOW* (04/19/17 5:10 AM) (04/18/17 4:20 PM) MCV [80.0-94.0 fL] 84.4 fL 83.2 fL (04/19/17 5:10 AM) (04/18/17 4:20 PM) MCH [27.0-31.0 pg] 28.0 pg 28.0 pg (04/19/17 5:10 AM) (04/18/17 4:20 PM) MCHC [32.0-36.0 g/dL] 33.2 g/dL 33.7 g/dL (04/19/17 5:10 AM) (04/18/17 4:20 PM) RDW [11.5-14.5 %] 14.6 % 14.8 % *HI* *HI* (04/19/17 5:10 AM) (04/18/17 4:20 PM) Platelet [133-450 K/CMM] 217 K/CMM 228 K/CMM (04/19/17 5:10 AM) (04/18/17 4:20 PM) MPV [7.4-10.4 fL] 8.2 fL 8.6 fL (04/19/17 5:10 AM) (04/18/17 4:20 PM) Segs [45.0-75.0 %] 65.4 % (04/18/17 4:20 PM) Lymphocytes [20.0-40.0 %] 19.8 % *LOW* (04/18/17 4:20 PM) Monocytes [2.0-12.0 %] 11.3 % (04/18/17 4:20 PM) Eosinophils [0.0-4.0 %] 3.0 % (04/18/17 4:20 PM) Basophils [0.0-1.0 %] 0.5 % (04/18/17 4:20 PM) Segs-Bands # [1.5-8.1 K/CMM] 4.3 K/CMM (04/18/17 4:20 PM) Lymphocytes # [1.0-5.5 K/CMM] 1.3 K/CMM (04/18/17 4:20 PM) Monocytes # [0.0-0.8 K/CMM] 0.7 K/CMM (04/18/17 4:20 PM) Eosinophils # [0.0-0.5 K/CMM] 0.2 K/CMM (04/18/17 4:20 PM) PT [12.0-14.7 seconds] 14.0 seconds 13.4 seconds (04/19/17 5:10 AM) (04/18/17 4:20 PM) INR [0.85-1.17] 1.06 1.00 (04/19/17 5:10 AM) (04/18/17 4:20 PM) PTT [22.9-35.8 seconds] 31.1 seconds 31.8 seconds (04/19/17 5:10 AM) (04/18/17 4:20 PM) Immunizations Given and Recorded Vaccine Date [...] 09/14/1720 beer a day. Assessment and Plan Extracted from: Title: Clinical Document Author: Manohar Pope MD Date: 04/19/17 Patient admitted to my service on 04/18/2017, discharged on 04/19/2017. He can go back to his rehabilitation center without any restriction. Please call me if there is ryann question (Shivam Pope MD. [phone]) Extracted from: Title: Hospitalist H&P * Author: Amena Garcia MD Date: 04/18/17 Impression and Plan Left-sided weakness, numbness and tingling, rule out TIA Epilepsy without active seizures Essential hypertension History of CVAs in the past Systolic congestive heart failure, with ejection fraction of 40-45%, compensated Diabetes mellitus Ongoing tobacco abuse and dependence Admit to observation with telemetry monitoring MRI of the brain and carotid ultrasounds Continue aspirin Plavix and statin, patient takes as an outpatient Patient had an echo obtained approximate 1 year ago will not repeat at this time In regards to diabetes insulin sliding scale and Accu-Cheks Resume other home medications as appropriate and tolerated Neurology consultation placed in the emergency room Further management pending patient's workup and clinical course Counseled patient on tobacco cessation and importance of lifestyle modifications. DVT prophylaxis: Heparin subcu CODE STATUS: Patient is full code
--- OUTSIDE RECORDS SUMMARY | 2018-08-27 17:31 | XMS REPORT ---
:1965 Author Care Team Providers Name Role Phone SUE WALKER MD Primary Care Provider [phone] Allergies Code Code System Name Reaction Severity Status Onset NKDA Medications Name Status Start Date Stop Date Asprin Ec Low Dose 81 mg tablet,delayed release Active Not available Take 1 tablet every day by oral route. atorvastatin 80 mg tablet Active Not available Take 1 tablet every day by oral route for 90 days. carvedilol 25 mg tablet Active Not available Take 1 tablet twice a day by oral route for 90 days. clopidogrel 75 mg tablet Active Not available Take 1 tablet every day by oral route for 90 days. Entresto 97 mg-103 mg tablet Active Not available TAKE ONE TABLET BY MOUTH TWICE DAILY gabapentin 300 mg capsule Active Not available Take 1 capsule every day by oral route. Keppra 750 mg tablet Completed 08/25/2017 Take 1 tablet twice a day by oral route. levetiracetam 1,000 mg tablet Active Not available Take 1 tablet twice a day by oral route for 30 days. nifedipine ER 60 mg tablet,extended release Active Not available Take 1 tablet every day by oral route for 90 days. trazodone 100 mg tablet Active Not available Take 1 tablet as needed by oral route at bedtime. prn insomnia Problems Name Status Onset Date Source Hyperlipidemia Active 08/25/2017 Body Mass Index 30+ - Obesity Active 08/25/2017 Alcohol Dependence Active 08/25/2017 Insomnia Active 08/25/2017 Hypertensive Disorder Active 08/25/2017 Congestive Heart Failure Active 08/25/2017 Seizure Active 08/25/2017 History of Cerebrovascular Accident without Active 08/25/2017 Residual Deficits Type 2 Diabetes Mellitus Active 10/08/2017 Cellulitis and Abscess of Finger Active 10/08/2017 Low Back Pain Active 10/19/2017 Procedures Date Name Performed by Hand Surgery Information not available Notes: Lt - 201410/08/2017 XR, Finger(s), 2 or More View [facility] [id number] [place] [address] (Work Place) Lab Results None recorded. Past Encounters 10/19/2017 Congestive Heart Failure; Type 2 Diabetes Mellitus; Hypertensive Disorder; Hyperlipidemia; History of Cerebrovascular Accident without Residual Deficits; Seizure; Insomnia; Low Back Pain Sue Walker MD: [id number], [facility] [address] [address], Ph. 10/08/2017 Cellulitis and Abscess of Finger; Congestive Heart Failure; Type 2 Diabetes Mellitus; Body Mass Index 30+ - Obesity; Depression Screening Positive Carolina Madison MD: [address], [address], [place] [address] , Ph. 08/25/2017 Congestive Heart Failure; Hypertensive Disorder; Hyperlipidemia; Seizure; Insomnia; Alcohol Dependence; History of Cerebrovascular Accident without Residual Deficits; Body Mass Index 30+ - Obesity Sue Walker MD: [address], [address], [place] [address], Ph. [phone] Social History Smoking Status Heavy Tobacco Smoker (1/2 PPD) Vaccine List Notes: Flu vax - declined Tdap - due Plan of Care Patient Instructions Keep appt for CPX RTC 3mo Reminders Provider Appointments None recorded. Lab None recorded. Referral None recorded. Procedures None recorded. Surgeries None recorded. Imaging None recorded. Vitals 10/19/2017 11:30AM Est Patient Height Weight BMI Blood Pressure 5 ft 6 in 234 lbs 37.8 kg/m2 132/77 mm[Hg] 10/08/2017 09:15AM Est Patient Height Weight BMI Blood Pressure 5 ft 6 in 235.6 lbs 38 kg/m2 116/76 mm[Hg] 08/25/2017 11:15AM New Patient Height Weight BMI Blood Pressure 5 ft 6 in 243.6 lbs 39.3 kg/m2 110/82 mm[Hg]
--- OUTSIDE RECORDS SUMMARY | 2018-08-27 17:31 | XMS REPORT | Summary of Care ---
:1965 Author Organization [facility] Address [address] [place], [place] [address]- Encounter [facility] Chadntr_camacho(FIN) [id number] Date(s): 04/21/17 - 04/21/17 [id number] [place] [address]- Discharge Diagnosis: Acute headache Discharge Disposition: Home or Self Care Attending Physician: Jaskaran Yi MD Vital Signs Most recent to oldest [Reference Range]: 1 Height 180.34 cm (04/21/17 1:49 AM) Temperature Oral [96.4-99.1 DegF] 98.4 DegF (04/21/17 1:49 AM) Blood Pressure [90-140/60-90 mmHg] 130/82 mmHg (04/21/17 1:49 AM) Respiratory Rate [14-20 BRMIN] 19 BRMIN (04/21/17 1:49 AM) Peripheral Pulse Rate [60-100 bpm] 63 bpm (04/21/17 1:49 AM) Weight 102.273 kg (04/21/17 1:49 AM) Body Mass Index 31.45 m2 (04/21/17 1:49 AM) Problem List Condition Effective Dates Status [...]
[2018-08-27] MEDS ORDERED: MORPHINE 4 MG/ML SYR ONE ×2 (19:19→21:46)
[2018-08-27] MEDS ORDERED: ONDANSETRON 4 MG/2 ML VIAL ONE (19:19)
[2018-08-27 19:44] LABS: Absolute Monocytes 1.1 K/uL (0.1-1.3); Absolute Neutrophil 6.3 K/uL (1.8-8.0); Basophils % 0.6 % (0-1.3); Eosinophils % 0.9 % (0-4.4); Hematocrit 43.8 % (39.6-49.0); Lymphocytes % 11.5 % (15.3-44.8); MPV 8.7 fL (7.6-11.3); Monocytes % 12.9 % (3.3-12.3); RBC Red Blood Cell Count 5.21 M/uL (4.33-5.43)
[2018-08-27 20:06] LABS: Albumin 4.2 g/dL (3.4-5.0); Bilirubin Direct 0.1 mg/dL (0-0.2); Bilirubin Total 0.4 mg/dL (0.2-1.0); Potassium 3.6 mmol/L (3.5-5.1); Protein, Total 8.1 g/dL (6.4-8.2)
--- NOTE | 2018-08-27 20:50 | RAD REPORT ---
EXAM DESCRIPTION: CT - Stone Protocol - 08/27/2018 8:27 pm CLINICAL HISTORY: Abdominal pain COMPARISON: None. TECHNIQUE: Axial [address] imaging of the abdomen and pelvis was performed without IV contrast. No IV contrast was given because of allergy, abnormal renal function, patient refusal or physician re quest. Oral contrast was given. All CT scans are performed using dose optimization technique as appropriate and may include automated exposure control or mA/KV adjustment according to patient size. FINDINGS: No suspicious findings in the lung bases. The liver, spleen and pancreas show no suspicious findings on non-contrast imaging. Gallbladder and b iliary tree are also without suspicious finding. Gallstones can be occult on CT imaging. No hydronephrosis or suspicious renal mass. No significant adrenal finding. Isodense renal masses an d pyelonephritis cannot be excluded in the absence of IV contrast. The urinary bladder is without sig nificant finding. No dilated bowel loops or bowel wall thickening. No free air, free fluid or inflammatory stranding. N o hernia, mass or bulky lymphadenopathy. Patient has a few small nonspecific mesenteric and periaorti c lymph nodes, under 1 centimeter. Appendix is normal. Disc and bony degenerative changes are present. No acute finding. No acute vascular process on noncon trast imaging. IMPRESSION: Non-contrast enhanced CT abdomen and pelvis imaging show no significant or suspicious fi nding. Isodense masses and pyelonephritis are not excluded on a noncontrast study. Gallstones can be occult. Full assessment is limited is the absence of IV contrast.
--- NOTE | 2018-08-27 21:42 | ER ---
Nurse's Notes [facility] Name: Shawna Mccall Age: 52 yrs Sex: Male : 1965 Arrival Date: 08/27/2018 Time: 17:04 Bed 17 Private MD: Raciel Walker H Diagnosis: Acute Kidney Injury;Urinary tract infection, site not specified Presentation: 08/27 17:54 Presenting complaint: Patient states: Bilateral Side pain and ABD pain that started sg yesterday, reports N/V, reports Diarrhea on and off for several. Transition of care: patient was not received from another setting of care. Onset of symptoms was August 27, 2018. Risk Assessment: Do you want to hurt yourself or someone else? Patient reports no desire to harm self or others. Initial Sepsis Screen: Does the patient meet any 2 criteria? No. Patient's initial sepsis screen is negative. Does the patient have a suspected source of infection? No. Patient's initial sepsis screen is negative. Care prior to arrival: None. 17:54 Method Of Arrival: Ambulatory sg 17:54 Acuity: INGRID 3 sg Historical: - Allergies: 17:56 No Known Allergies; sg - PMHx: 17:56 CHF; CVA; Hypertension; Migraines; Seizures; sg - PSHx: 17:56 None; sg - Immunization history:: Adult Immunizations not up to date. - Social history:: Smoking status: Patient uses tobacco products, smokes one pack cigarettes per day. - Ebola Screening: : Patient negative for fever greater than or equal to 101.5 degrees Fahrenheit, and additional compatible Ebola Virus Disease symptoms Patient denies exposure to infectious person Patient denies travel to an Ebola-affected area in the 21 days before illness onset No symptoms or risks identified at this time. Screenin:30 Abuse screen: Denies threats or abuse. Denies injuries from another. Nutritional rr5 screening: No deficits noted. Tuberculosis screening: No symptoms or risk factors identified. Fall Risk IV access (20 points). Total Mitchell Fall Scale indicates No Risk (0-24 pts). Assessment: 19:00 General: Appears in no apparent distress. comfortable, Behavior is calm, cooperative, rr5 appropriate for age. Pain: Complains of pain in right lower quadrant and left lower quadrant Pain does not radiate. Pain currently is 10 out of 10 on a pain scale. Quality of pain is described as aching, Pain began gradually, Is intermittent. Neuro: Level of Consciousness is awake, alert, obeys commands, Oriented to person, place, time, situation, Appropriate for age. Cardiovascular: Capillary refill < 3 seconds Patient's skin is warm and dry. Respiratory: Airway is patent Respiratory effort is even, unlabored, Respiratory pattern is regular, symmetrical. GI: Bowel sounds present X 4 quads. Abd is soft and non tender X 4 quads. : No signs and/or symptoms were reported regarding the genitourinary system. EENT: No signs and/or symptoms were reported regarding the EENT system. Derm: Skin is intact, Skin temperature is warm. Musculoskeletal: Capillary refill < 3 seconds, Range of motion: intact in all extremities. 19:30 Reassessment: Patient appears in no apparent distress at this time. No changes from rr5 previously documented assessment. 20:30 Reassessment: Patient appears in no apparent distress at this time. Patient states rr5 feeling better. Patient states symptoms have improved. 21:30 Reassessment: Patient appears in no apparent distress at this time. Patient is alert, rr5 oriented x 3, equal unlabored respirations, skin warm/dry/pink. reassess by marley LEWIS patient is for admission, explained to patient and agreed. 22:30 Reassessment: Patient appears in no apparent distress at this time. Patient is alert, rr5 oriented x 3, equal unlabored respirations, skin warm/dry/pink. ate crackers and juice with good appetite. Patient states symptoms have improved. Vital Signs: 17:57 BP 128 / 85; Pulse 93; Resp 17; Temp 98.2; Pulse Ox 98% on R/A; Weight 97.52 kg; Height sg 5 ft. 5 in. (165.10 cm); Pain 7/10; 19:00 BP 146 / 97; Pulse 98; Resp 17; Temp 98; Pulse Ox 100% ; Pain 10/10; rr5 20:00 BP 115 / 70; Pulse 90; Resp 17; Pulse Ox 99% ; rr5 20:30 BP 108 / 73; Pulse 70; Resp 16; Pulse Ox 99% ; rr5 21:00 BP 115 / 70; Pulse 98; Resp 18; Pulse Ox 98% ; rr5 22:00 BP 123 / 76; Pulse 100; Resp 17; Pulse Ox 100% ; rr5 23:00 BP 115 / 73; Pulse 92; Resp 19; Pulse Ox 99% ; rr5 08/28 00:30 BP 126 / 70; Pulse 97; Resp 16; Temp 98.3; Pulse Ox 98% on R/A; rr5 08/27 17:57 Body Mass Index 35.78 (97.52 kg, 165.10 cm) ED Course: 08/27 17:04 Patient arrived in ED. as 17:04 Raciel Walker DO is Private Physician. as 17:56 Triage completed. sg 17:56 Arm band placed on. sg 18:17 Shukri Hay LVN is Primary Nurse. em 18:40 Augustin Reddy PA is PHCP. [facility] 18:40 Dennis Jeffers MD is Attending Physician. [facility] 19:00 Patient has correct armband on for positive identification. Placed in gown. Bed in low rr5 position. Call light in reach. Side rails up X2. Pulse ox on. NIBP on. 19:20 Inserted saline lock: 20 gauge in left antecubital area, using aseptic technique. Blood rr5 collected. 20:27 CT Stone Protocol In Process Unspecified. EDMS 20:27 CT completed. Patient moved to CT via wheelchair. Patient moved back from CT. bq 21:40 Soco Hyed MD is Hospitalizing Provider. [facility] 08/28 00:42 No provider procedures requiring assistance completed. Patient admitted, IV remains in rr5 place. intact, bleeding controlled, No redness/swelling at site. Administered Medications: 08/27 19:20 Drug: Zofran 4 mg Route: IVP; Site: left antecubital; rr5 08/28 00:44 Follow up: Response: No adverse reaction 5 08/27 19:22 Drug: morphine 4 mg Route: IVP; Site: left antecubital; rr5 08/28 00:44 Follow up: Response: No adverse reaction 5 08/27 21:40 Drug: NS 0.9% 1000 ml Route: IV; Rate: 1 bolus; Site: left antecubital; rr5 23:00 Follow up: Response: No adverse reaction; IV Status: Completed infusion; IV Intake: rr5 1000ml 21:40 Drug: morphine 4 mg Route: IVP; Site: left antecubital; rr5 08/28 00:44 Follow up: Response: No adverse reaction rr5 08/27 21:51 Drug: Rocephin - (cefTRIAXone) 1 grams Route: IVPB; Infused Over: 30 mins; Site: left rr5 antecubital; 22:30 Follow up: Response: No adverse reaction; IV Status: Completed infusion rr5 Intake: 21:50 PO: 450ml (Water); Total: 450ml. rr5 23:00 IV: 1000ml; Total: 1450ml. rr5 Output: 22:15 Urine: 1100ml (Voided); Total: 1100ml. rr5 Outcome: 21:41 Decision to Hospitalize by Provider. roman 08/28 00:40 Admitted to Med/surg accompanied by tech, via wheelchair, with chart, Report called to rr5 danni GARCIA Condition: stable Instructed on the need for admit. 00:55 Patient left the ED. rr5 Signatures: Dispatcher [employer] Anmol Wood, RN RN Augustin Hightower PA PA jmm Quilty, Betty bq Munoz, Edgar, JOB ESTIMATOR JOB ESTIMATOR Ashlee Davalos Raymond, RN RN rr5
--- NOTE | 2018-08-27 21:42 | EDPHYS ---
Physician Documentation [facility] Name: Shawna Mccall Age: 52 yrs Sex: Male : 1965 Arrival Date: 08/27/2018 Time: 17:04 Bed 17 Private MD: Raciel Walker H ED Physician Dennis Jeffers HPI: 08/27 18:57 This 52 yrs old Black Male presents to ER via Ambulatory with complaints of Abdominal jmm Pain, Back Pain. 18:57 The patient presents with abdominal pain. Onset: The symptoms/episode began/occurred jmm gradually, last night. The symptoms radiate to back. Associated signs and symptoms: Pertinent negatives: nausea and vomiting, diarrhea. The symptoms are described as achy, sharp. This is a 52 year old male with a history of CHF, CVA, HTN, that presents to the ED with low back pain, abdominal pain beginning this past evening. Patient denies previous symptoms in the past. Denies fever, denies vomiting, denies diarrhea. . Historical: - Allergies: 17:56 No Known Allergies; sg - PMHx: 17:56 CHF; CVA; Hypertension; Migraines; Seizures; sg - PSHx: 17:56 None; sg - Immunization history:: Adult Immunizations not up to date. - Social history:: Smoking status: Patient uses tobacco products, smokes one pack cigarettes per day. - Ebola Screening: : Patient negative for fever greater than or equal to 101.5 degrees Fahrenheit, and additional compatible Ebola Virus Disease symptoms Patient denies exposure to infectious person Patient denies travel to an Ebola-affected area in the 21 days before illness onset No symptoms or risks identified at this time. ROS: 18:57 Constitutional: Negative for fever, chills, and weight loss, Cardiovascular: Negative jmm for chest pain, palpitations, and edema, Respiratory: Negative for shortness of breath, cough, wheezing, and pleuritic chest pain. 18:57 Abdomen/GI: Positive for abdominal pain. 18:57 Back: Positive for pain at rest, pain with movement. 18:57 All other systems are negative. Exam: 18:57 Head/Face: atraumatic. Eyes: EOMI, no conjunctival erythema appreciated ENT: Moist jmm Mucus Membranes Neck: Trachea midline, Supple Chest/axilla: Normal chest wall appearance and motion. Cardiovascular: Regular rate and rhythm. No edema appreciated Respiratory: Normal respirations, no respiratory distress appreciated 18:57 Constitutional: The patient appears in no acute distress, alert, awake. 18:57 Abdomen/GI: Inspection: obese Bowel sounds: normal, Palpation: moderate abdominal tenderness, in the suprapubic area, right lower quadrant and left lower quadrant. 18:57 Back: ROM is normal. 18:57 Musculoskeletal/extremity: ROM: intact in all extremities. 18:57 Skin: Appearance: Color: normal in color. 18:57 Neuro: Orientation: is normal, Mentation: is normal, Memory: is normal. 18:57 Psych: Behavior/mood is pleasant, cooperative. Vital Signs: 17:57 BP 128 / 85; Pulse 93; Resp 17; Temp 98.2; Pulse Ox 98% on R/A; Weight 97.52 kg; Height sg 5 ft. 5 in. (165.10 cm); Pain 7/10; 19:00 BP 146 / 97; Pulse 98; Resp 17; Temp 98; Pulse Ox 100% ; Pain 10/10; rr5 20:00 BP 115 / 70; Pulse 90; Resp 17; Pulse Ox 99% ; rr5 20:30 BP 108 / 73; Pulse 70; Resp 16; Pulse Ox 99% ; rr5 21:00 BP 115 / 70; Pulse 98; Resp 18; Pulse Ox 98% ; rr5 22:00 BP 123 / 76; Pulse 100; Resp 17; Pulse Ox 100% ; rr5 23:00 BP 115 / 73; Pulse 92; Resp 19; Pulse Ox 99% ; rr5 08/28 00:30 BP 126 / 70; Pulse 97; Resp 16; Temp 98.3; Pulse Ox 98% on R/A; rr5 08/27 17:57 Body Mass Index 35.78 (97.52 kg, 165.10 cm) sg MDM: 08/27 18:52 Patient medically screened. roman 21:35 Data reviewed: vital signs, nurses notes. Counseling: I had a detailed discussion with roman the patient and/or guardian regarding: the historical points, exam findings, and any diagnostic results supporting the discharge/admit diagnosis, lab results, radiology results, the need for further work-up and treatment in the hospital. ED course: I discussed the patient with Dr. Hyde whom will see the patient in the ED. . 21:40 Data reviewed: lab test result(s). [facility] 08/27 18:56 Order name: Basic Metabolic Panel; Complete Time: 20:11 [facility] 08/27 18:56 Order name: CBC with Diff; Complete Time: 19:52 [facility] 08/27 18:56 Order name: Creatinine for Radiology; Complete Time: 20:11 [facility] 08/27 18:56 Order name: Hepatic Function; Complete Time: 20:11 [facility] 08/27 18:56 Order name: Lipase; Complete Time: 20:11 [facility] 08/27 21:10 Order name: Urine Microscopic Only; Complete Time: 10:16 [facility] 08/27 20:12 Order name: CT Stone Protocol; Complete Time: 20:52 [facility] 08/27 21:33 Order name: Urine Dipstick--Ancillary (enter results); Complete Time: 10:16 [facility] 08/27 18:56 Order name: IV Saline Lock; Complete Time: 19:45 [facility] 08/27 18:56 Order name: Labs collected and sent; Complete Time: 19:45 [facility] 08/27 21:10 Order name: Urine Dipstick-Ancillary (obtain specimen); Complete Time: 21:39 [facility] Administered Medications: 19:20 Drug: Zofran 4 mg Route: IVP; Site: left antecubital; rr5 08/28 00:44 Follow up: Response: No adverse reaction [facility] 08/27 19:22 Drug: morphine 4 mg Route: IVP; Site: left antecubital; rr5 08/28 00:44 Follow up: Response: No adverse reaction [facility] 08/27 21:40 Drug: NS 0.9% 1000 ml Route: IV; Rate: 1 bolus; Site: left antecubital; rr5 23:00 Follow up: Response: No adverse reaction; IV Status: Completed infusion; IV Intake: rr5 1000ml 21:40 Drug: morphine 4 mg Route: IVP; Site: left antecubital; rr5 08/28 00:44 Follow up: Response: No adverse reaction [facility] 08/27 21:51 Drug: Rocephin - (cefTRIAXone) 1 grams Route: IVPB; Infused Over: 30 mins; Site: left rr5 antecubital; 22:30 Follow up: Response: No adverse reaction; IV Status: Completed infusion rr5 Disposition: 08/27/18 21:41 Hospitalization ordered by Soco Hyde for Observation. Preliminary diagnosis are Acute Kidney Injury, Urinary tract infection, site not specified. - Bed requested for Telemetry/MedSurg (observation). - Status is Observation. rr5 - Condition is Stable. - Problem is new. - Symptoms are unchanged. UTI on Admission? Yes Addendum: 08/31/2018 12:42 Co-signature as Attending Physician, Dennis Jeffers MD. g s Signatures: Dispatcher [employer] [facility] Yue Singh RN RN Anmol Wharton RN RN sg Augustin Reddy PA PA [facility] Dennis Jeffers MD MD gs Roque, Raymond, RN RN rr5 Corrections: (The following items were deleted from the chart) 08/27 20:29 18:57 Abdomen Pelvis W Con+CT.RAD.BRZ ordered. [facility] 08/28 00:25 08/27 21:41 Hospitalization Ordered by Soco Hyde MD for Observation. Preliminary kl diagnosis is Acute Kidney Injury; Urinary tract infection, site not specified. Bed requested for Telemetry/MedSurg (observation). Status is Observation. Condition is Stable. Problem is new. Symptoms are unchanged. UTI on Admission? Yes. [facility] 08/28 00:55 00:25 08/27/2018 21:41 Hospitalization Ordered by Soco Hyde MD for Observation. rr5 Preliminary diagnosis is Acute Kidney Injury; Urinary tract infection, site not specified. Bed requested for Telemetry/MedSurg (observation). Status is Observation. Condition is Stable. Problem is new. Symptoms are unchanged. UTI on Admission? Yes. kl
[2018-08-27] MEDS ORDERED: NA CHLORIDE 0.9% 1,000 ML ONE (21:46)
[2018-08-27 21:48] LABS: Urine Blood NEGATIVE (NEG); Urine Glucose NEGATIVE (NEG); Urine Protein NEGATIVE (NEG)
[2018-08-27] MEDS ORDERED: CEFTRIAXONE/SWI 1gm 1 GM/10 ML SYR ONE (21:57)
[2018-08-27 22:40] LABS: Urine Bacteria NONE SEEN /HPF (NONE SEEN); Urine Culture Reflex Order NOT NEEDED; Urine RBC <5 /HPF (NONE SEEN)
[2018-08-27] MEDS ORDERED: NA CHLORIDE 0.9% 1,000 ML IV SCH (23:45)
[2018-08-27] MEDS ORDERED: ACETAMINOPHEN 500 MG TAB PO PRN (23:54)
[2018-08-27] MEDS ORDERED: ONDANSETRON 4 MG/2 ML VIAL IV PRN (23:54)
--- NOTE | 2018-08-28 00:14 | P.HP ---
Certification for Inpatient Patient admitted to: Observation With expected LOS: <2 Midnights Practitioner: I am a practitioner with admitting privileges, knowledge of patient current condition, hospital course, and medical plan of care. Services: Services provided to patient in accordance with Admission requirements found in Title 42 Section 412.3 of the Code of Federal Regulations Patient History Date of Service: 08/27/18 Reason for admission: UTI, acute renal injury History of Present Illness: Mr Mccall is a 52 years old male with history of HTN, Epilepsy, CHF, who start with abdominal pain since yesterday. The pain is diffuse, 6/10 of intensity, radiated to his back, constant, associated with nausea but no vomiting. He denied diarrhea, fever or chills. He noticed that his urine color turned to orange. He denied painful urination. Lab work shows normal WBC count, creatinine is elevated (baseline is normal). CT abd/pelvis shows no acute abnormalities. Allergies No Known Allergies Allergy (Verified 09/09/17 03:32) Home Medications: Aspirin [Aspir-Low] 81 mg PO DAILY 09/09/17 Atorvastatin Calcium [Lipitor] 80 mg PO BEDTIME 09/09/17 Carvedilol [Coreg*] 25 mg PO BID 09/09/17 Clopidogrel Bisulfate [Plavix*] 75 mg PO DAILY 09/09/17 Gabapentin [Gralise] 300 mg PO TID 09/09/17 Levetiracetam [Keppra] 750 mg PO BID 09/09/17 Nifedipine [Procardia Xl] 60 mg PO DAILY 09/09/17 Sacubitril/Valsartan [Entresto 97 mg-103 mg Tablet] 1 each PO BID 09/09/17 Trazodone HCl 100 mg PO BID 09/09/17 Furosemide [Lasix] 40 mg PO DAILY #30 tab 09/10/17 Potassium Chloride 20 meq PO DAILY #30 tablet.er 09/10/17 - Past Medical/Surgical History Diabetic: No -: alcohol abuse -: CHF -: HTN -: CVA -: neuropathy -: hyperlipidemia -: l. hand sx - Family History Mother -: Heart disease Father -: Diabetes - Social History Alcohol use: Yes CD- Drugs: No Caffeine use: No Place of Residence: Home Review of Systems 10-point ROS is otherwise unremarkable Physical Examination - Physical Exam General: Alert, In no apparent distress HEENT: Atraumatic, PERRLA, Mucous membr. moist/pink, EOMI, Sclerae nonicteric Neck: Supple, 2+ carotid pulse no bruit, No LAD, Without JVD or thyroid abnormality Respiratory: Clear to auscultation bilaterally, Normal air movement Cardiovascular: Regular rate/rhythm, Normal S1 S2 Gastrointestinal: Normal bowel sounds, Distended (mild distention), Tenderness ( diffuse tenderness to palpation) Musculoskeletal: No tenderness Integumentary: No rashes Neurological: Normal speech, Normal strength at 5/5 x4 extr, Normal tone, Normal affect Lymphatics: No axilla or inguinal lymphadenopathy - Studies Laboratory Data (last 24 hrs) 08/27/18 19:20: Creatinine 2.16 H 08/27/18 19:20: WBC 8.5, Hgb 14.1, Hct 43.8, Plt Count 233 08/27/18 19:20: Sodium 142, Potassium 3.6, BUN 21 H, Creatinine 2.20 H, Glucose 83, Total Bilirubin 0.4, AST 20, ALT 21, Alkaline Phosphatase 88, Lipase 55 L Assessment and Plan - Problems (Diagnosis) (1) UTI (urinary tract infection) Current Visit: Yes Status: Acute Qualifiers: Urinary tract infection type: site unspecified Hematuria presence: without hematuria Qualified Code(s): N39.0 - Urinary tract infection, site not specified (2) HTN (hypertension) Current Visit: Yes Status: Acute Qualifiers: Hypertension type: essential hypertension Qualified Code(s): I10 - Essential (primary) hypertension (3) Epilepsy Current Visit: Yes Status: Acute Qualifiers: Epilepsy type: unspecified Intractability: not intractable Status epilepticus: without status epilepticus Qualified Code(s): G40.909 - Epilepsy , unspecified, not intractable, without status epilepticus - Plan Will admit the patient due to UTI, will start IV Rocephin, Urine culture in process. Also IV fluids for Acute renal injury. Will check new lab in AM. - Advance Directives Does patient have a Living Will: No Does patient have a Durable POA for Healthcare: No - Code Status/Comfort Care Code Status Assessed: Yes Code Status: Full Code
[2018-08-28] MEDS ORDERED: MORPHINE 2 MG/ML SYR IV PRN (03:11)
[2018-08-28] MEDS ORDERED: MORPHINE 4 MG/ML SYR IV PRN (03:21)
[2018-08-28 06:54] LABS: Absolute Lymphocytes (CBC) 1.3 K/uL (0.7-4.9); Absolute Neutrophil 5.5 K/uL (1.8-8.0); Basophils % 0.3 % (0-1.3); Hematocrit 39.3 % (39.6-49.0); Lymphocytes % 16.5 % (15.3-44.8); MPV 8.8 fL (7.6-11.3); Monocytes % 12.3 % (3.3-12.3); RBC Red Blood Cell Count 4.68 M/uL (4.33-5.43)
[2018-08-28 07:11] LABS: Potassium 3.8 mmol/L (3.5-5.1)
[2018-08-28] MEDS ORDERED: HOME MED 1 EA UNK (Trazodone Hcl [Trazodone Hcl] 100 MG) PO PRN (08:09)
[2018-08-28] MEDS ORDERED: TRAZODONE 50 MG TABLET PO PRN (08:48)
[2018-08-28] MEDS ORDERED: HEPARIN 5000 UNIT/ML 1 ML VIAL SQ SCH (09:00)
[2018-08-28] MEDS ORDERED: CLOPIDOGREL 75 MG TABLET PO SCH (09:00)
[2018-08-28] MEDS ORDERED: LEVETIRACETAM 750 MG PO SCH (09:00)
[2018-08-28] MEDS ORDERED: POTASSIUM CL SA 10 MEQ TAB PO SCH (09:00)
[2018-08-28] MEDS ORDERED: HOME MED 1 EA UNK (Gabapentin [Gralise] 300 MG) PO SCH (09:00)
[2018-08-28] MEDS ORDERED: HOME MED 1 EA UNK (Potassium Chloride [Potassium Chloride] 20 MEQ) PO SCH (09:00)
[2018-08-28] MEDS ORDERED: CEFTRIAXONE 1 GM/NS 50 ML 1 GM/50 ML BAG IV SCH (09:00)
[2018-08-28] MEDS ORDERED: levETIRAcetam 500 MG TAB PO SCH (09:00)
[2018-08-28] MEDS ORDERED: CEFTRIAXONE/SWI 1gm 1 GM/10 ML SYR IVP SCH (09:00)
[2018-08-28] MEDS ORDERED: NIFEDIPINE XL 60 MG TABLET PO SCH (09:00)
[2018-08-28] MEDS ORDERED: FUROSEMIDE 40 MG TABLET PO SCH (09:00)
[2018-08-28] MEDS ORDERED: GABAPENTIN 300 MG CAP PO SCH ×2 (09:00→14:00)
[2018-08-28] MEDS ORDERED: POTASSIUM 25 MEQ EFFERV TAB PO ONE (09:00)
[2018-08-28] MEDS ORDERED: CARVEDILOL 25 MG TAB PO SCH (09:00)
[2018-08-28] MEDS ORDERED: NA CHLORIDE 0.9% 1,000 ML IV SCH (09:00)
[2018-08-28] MEDS ORDERED: VALSARTAN PO SCH (09:00)
[2018-08-28] MEDS ORDERED: ASPIRIN EC 81 MG TAB PO SCH (09:00)
[2018-08-28] MEDS ORDERED: SACUBITRIL PO SCH (09:00)
--- NOTE | 2018-08-28 09:55 | P.DS ---
Admission Date: 08/27/18 Discharge Date: 08/28/18 Primary Care Provider: Dr. Walker([place], [place]); Cardiology-Dr. Christie([place], [place]) Disposition: ROUTINE DISCHARGE Discharge Condition: GOOD Reason for Admission: UTI, acute renal injury Consultations: none Procedures: CT scan: COMPARISON: None. TECHNIQUE: Axial [address] imaging of the abdomen and pelvis was performed without IV contrast. No IV contrast was given because of allergy, abnormal renal function, patient refusal or physician request. Oral contrast was given. All CT scans are performed using dose optimization technique as appropriate and may include automated exposure control or mA/KV adjustment according to patient size. FINDINGS: No suspicious findings in the lung bases. The liver, spleen and pancreas show no suspicious findings on non-contrast imaging. Gallbladder and biliary tree are also without suspicious finding. Gallstones can be occult on CT imaging. No hydronephrosis or suspicious renal mass. No significant adrenal finding. Isodense renal masses and pyelonephritis cannot be excluded in the absence of IV contrast. The urinary bladder is without significant finding. No dilated bowel loops or bowel wall thickening. No free air, free fluid or inflammatory stranding. No hernia, mass or bulky lymphadenopathy. Patient has a few small nonspecific mesenteric and periaortic lymph nodes, under 1 centimeter. Appendix is normal. Disc and bony degenerative changes are present. No acute finding. No acute vascular process on noncontrast imaging. IMPRESSION: Non-contrast enhanced CT abdomen and pelvis imaging show no significant or suspicious finding. Isodense masses and pyelonephritis are not excluded on a noncontrast study. Gallstones can be occult. Full assessment is limited is the absence of IV contrast. Medical Problem List: UTI Renal insufficiency likely dehydration Hypertension Seizure disorder Chronic systolic CHF Hyperlipidemia CAD Obesity-BMI 39 Brief History of Present Illness: 52-year-old male presented to the emergency room with abdominal pain. It radiated to the back. No significant nausea or vomiting noted. Patient found to have a UTI. CT scan unremarkable. Patient with mild dehydration. Patient was admitted for treatment. Hospital Course: Patient presented with abdominal pain. Patient found to have UTI. CT scan unremarkable. Pro calcitonin unremarkable. Mild renal sufficiency noted from dehydration. Patient was admitted Overnite and given IV fluids and antibiotic. Patient did well in his stay. At discharge patient will continue with Augmentin 500 mg twice daily for 7 days. UTI prevention will be provided. Patient will need to follow up with his PCP within 1 week. Urine culture obtained. This can be followed up by his PCP. Patient has hypertension. Patient will continue with his medications- carvedilol 25 mg 1 pill twice daily and Procardia XL 60 mg daily. Recommendation is to maintain blood pressures less 150/80. Further adjustment can be done by his PCP. Patient has chronic systolic CHF. Patient will continue with a 1500 cc per day fluid restriction and low-salt diet. He is to monitor his weight daily. If his weight increases by more than 5 lb he is to contact his PCP or cardiology for further recommendation. Patient will continue with medications Entresto 97/ 103 mg 1 pill twice daily, Lasix 40 mg daily, and potassium supplementation once daily. Patient will follow up with cardiology as directed. Patient had mild renal insufficiency. This improved with hydration. Recommend to recheck lab-BMP in 1 week to monitor his progress. Recommend no nonsteroidal anti-inflammatories in the future. Future medications will need to be renally dosed. Patient is to be monitored on Entresto and Lasix. If Lab remains abnormal as an outpatient, patient may benefit with nephrology consultation as an outpatient to further address. Patient with CAD. Patient will continue with aspirin 81 mg daily and Plavix 75 mg daily. Patient has seizure disorder. Patient will continue with Keppra 750 mg 1 pill twice daily. Patient also takes Gralise 300 mg 3 times a day. Recommend a follow up with neurology as directed. Patient has hyperlipidemia. Patient continue with Lipitor 80 mg daily. Patient also uses trazodone 100 mg twice daily as needed for insomnia. Lifestyle modification education will be provided. Vital Signs/Physical Exam: Temp Pulse Resp BP Pulse Ox 98.4 F 98 H 16 134/91 H 98 08/28/18 08:00 08/28/18 08:00 08/28/18 08:00 08/28/18 08:00 08/28/18 08:00 General: Alert, In no apparent distress, Oriented x3, Cooperative HEENT: Atraumatic Neck: Supple Respiratory: Clear to auscultation bilaterally, Normal air movement Cardiovascular: Normal pulses, Regular rate/rhythm Gastrointestinal: Normal bowel sounds, Soft and benign, Non-distended, No tenderness, No masses, No rebound, No guarding Musculoskeletal: No erythema, No tenderness, No warmth Integumentary: No tenderness/swelling, No erythema, No warmth, No cyanosis Neurological: Normal speech, Normal strength at 5/5 x4 extr, Normal tone, Normal affect Laboratory Data at Discharge: WBC 7.8 K/uL (4.3-10.9) 08/28/18 06:34 Hgb 12.8 g/dL (13.6-17.9) L 08/28/18 06:34 Hct 39.3 % (39.6-49.0) L 08/28/18 06:34 Plt Count 233 K/uL (152-406) 08/28/18 06:34 Sodium 143 mmol/L (136-145) 08/28/18 06:34 Potassium 3.8 mmol/L (3.5-5.1) 08/28/18 06:34 BUN 17 mg/dL (7-18) 08/28/18 06:34 Creatinine 1.68 mg/dL (0.55-1.3) H 08/28/18 06:34 Glucose 109 mg/dL (74-106) H 08/28/18 06:34 Magnesium 2.5 mg/dL (1.8-2.4) H 08/28/18 06:34 Total Bilirubin 0.4 mg/dL (0.2-1.0) 08/27/18 19:20 AST 20 U/L (15-37) 08/27/18 19:20 ALT 21 U/L (12-78) 08/27/18 19:20 Alkaline Phosphatase 88 U/L (45-117) 08/27/18 19:20 Lipase 55 U/L (73-393) L 08/27/18 19:20 Home Medications: Aspirin [Aspir-Low] 81 mg PO DAILY 09/09/17 Atorvastatin Calcium [Lipitor] 80 mg PO BEDTIME 09/09/17 Carvedilol [Coreg*] 25 mg PO BID 09/09/17 Clopidogrel Bisulfate [Plavix*] 75 mg PO DAILY 09/09/17 Gabapentin [Gralise] 300 mg PO TID 09/09/17 Levetiracetam [Keppra] 750 mg PO BID 09/09/17 Nifedipine [Procardia Xl] 60 mg PO DAILY 09/09/17 Sacubitril/Valsartan [Entresto 97 mg-103 mg Tablet] 1 each PO BID 09/09/17 Trazodone HCl 100 mg PO BID 09/09/17 Furosemide [Lasix*] 40 mg PO DAILY #30 tab 09/10/17 Potassium Chloride 20 meq PO DAILY #30 tablet.er 09/10/17 Amox/Clavulanate [Augmentin 500-125 mg Tab*] 500 mg PO BID #14 tab 08/28/18 New Medications: Amox/Clavulanate [Augmentin 500-125 mg Tab*] 500 mg PO BID #14 tab Patient Discharge Instructions: 1. Patient will follow up with his PCP in 1 week to follow up this hospitalization. 2. Patient presented with abdominal pain. Patient found to have UTI. CT scan unremarkable. Pro calcitonin unremarkable. Mild renal sufficiency noted from dehydration. Patient was admitted Overnite and given IV fluids and antibiotic. Patient did well in his stay. At discharge patient will continue with Augmentin 500 mg twice daily for 7 days. UTI prevention will be provided. Patient will need to follow up with his PCP within 1 week. Urine culture obtained. This can be followed up by his PCP. 3. Patient has hypertension. Patient will continue with his medications- carvedilol 25 mg 1 pill twice daily and Procardia XL 60 mg daily. Recommendation is to maintain blood pressures less 150/80. Further adjustment can be done by his PCP. 4. Patient has chronic systolic CHF. Patient will continue with a 1500 cc per day fluid restriction and low-salt diet. He is to monitor his weight daily. If his weight increases by more than 5 lb he is to contact his PCP or cardiology for further recommendation. Patient will continue with medications Entresto 97/103 mg 1 pill twice daily, Lasix 40 mg daily, and potassium supplementation once daily. Patient will follow up with cardiology as directed. 5. Patient had mild renal insufficiency. This improved with hydration. Recommend to recheck lab-BMP in 1 week to monitor his progress. Recommend no nonsteroidal anti-inflammatories in the future. Future medications will need to be renally dosed. Patient is to be monitored on Entresto and Lasix. If Lab remains abnormal as an outpatient, patient may benefit with nephrology consultation as an outpatient to further address. 6. Patient with CAD. Patient will continue with aspirin 81 mg daily and Plavix 75 mg daily. 7. Patient has seizure disorder. Patient will continue with Keppra 750 mg 1 pill twice daily. Patient also takes Gralise 300 mg 3 times a day. Recommend a follow up with neurology as directed. 8. Patient has hyperlipidemia. Patient continue with Lipitor 80 mg daily. 9. Patient also uses trazodone 100 mg twice daily as needed for insomnia. Lifestyle modification education will be provided. Diet: AHA Activity: Ad greg Time spent managing pt's care (in minutes): 55
[2018-08-28] MEDS ORDERED: AMOX/K CLAV 500 MG TAB PO SCH (10:00)
[2018-08-28] MEDS ORDERED: ATORVASTATIN 80 MG TAB PO SCH (21:00)
== END 2018-08-28 13:30 | disposition home or self-care (01) ==
LOC: ER 17:03 → ERHOLD 21:41 → 2ND 08-28 00:43
PROVIDERS: ADMIT Internal Medicine; ATTEND Internal Medicine
DX: N39.0 Urinary tract infection, site not specified (principal); N28.9 Disorder of kidney and ureter, unspecified; I11.0 Hypertensive heart disease with heart failure; I50.22 Chronic systolic (congestive) heart failure; I25.10 Atherosclerotic heart disease of native coronary artery without angina pectoris; G40.909 Epilepsy, unspecified, not intractable, without status epilepticus; E78.5 Hyperlipidemia, unspecified; G47.00 Insomnia, unspecified; Z79.82 Long term (current) use of aspirin
CPT/HCPCS: 36415; 74176; 76377; 80048; 80076; 81003; 81015; 83690; 83735; 84145; 85025; 87086; 87088; 96361; 96365; 96375; 99285; G0378; J0696; J1644; J2405; J7030

== ENCOUNTER 2018-10-18 15:57 | Inpatient (IN) | payer SELFPAY ==
--- OUTSIDE RECORDS SUMMARY | 2018-10-18 16:33 | XMS REPORT | Continuity of Care Document ---
:1965 Author Organization Interface Problems Problem Status Onset Classification Date Comments Source Date Reported Discharge Diagnosis: 04/24/2017 Acute headache 017 [facility] GOMES Active 017 [facility] HEADACHE Active 017 [facility] I63.9 STROKE, R58 Active [facility] HEMORRHAGE [facility] [place] STROKE Active [facility] Discharge Diagnosis: 08/30/2016 [facility] Seizure [facility]17 [facility] SEIZURE Active [facility]17 [facility] ARM WEAKNESS, FACIAL Active [facility] DROOP [facility]16 [facility] ACUTE CEREBROVASCULAR Active [facility] ACCIDENT 016 [facility] Discharge Diagnosis: 03/10/2016 [facility] Acute viral syndrome 016 [facility] Discharge Diagnosis: 03/10/2016 [facility] Atypical chest pain 016 [facility] Discharge Diagnosis: 03/10/2016 [facility] Acute hypokalemia 016 [facility] CHEST PAIN Active [facility] 016 [facility] Discharge Diagnosis: 02/21/2016 [facility] Syncope 016 [facility] Discharge Diagnosis: 02/21/2016 [facility] Tonic seizure 016 [facility] SYNCOPE Active [facility] 016 [facility] Discharge Diagnosis: 11/25/2014 Muscle strain 015 [facility] Discharge Diagnosis: 11/25/2014 Flank pain 015 [facility] BACK PAIN Active 015 [facility] SHORTNESS OF BREATH Active 015 [facility] OTHER TENOSYNOVITIS OF Active [facility] HAND AND WRIST 014 [facility] HAND EDEMA Active 014 [facility] HAND INFECTION Active [address] [facility] ABDOMINAL PAIN Active 014 [facility] Discharge Diagnosis: 12/02/2013 Acute bronchitis 014 [facility] SPITTING UP BLOOD Active 014 [facility] FLU LIKE SYMPTOMS Active 013 [facility] CHF (<span Active Problem 02/11/2018 ID="[id number]">Confi 013 [facility],M rmed</span>) [facility] CVA (<span Active Problem 02/11/2018 ID="[id number]">Conf [facility] ir[facility]</span>) [facility] Diabetes Resolved Problem 02/11/2018 [facility] [place] H/O: stroke Resolved Problem 02/11/2018 [facility] [place] HTN - Hypertension Active Problem 02/11/2018 [facility] Hypercholesterolemia Active Problem 02/11/2018 [facility] Obesity Active Problem 02/11/2018 [facility] Seizure Active Problem 02/11/2018 [facility] Spider bite wound Resolved Problem 02/11/2018 [facility] Syncope Resolved Problem 02/11/2018 [facility] CHF NOS Active [facility] RENAL FAILURE NOS Active [facility] BACTERIAL INFECTION Active [facility] SEPTICEMIA NOS Active [facility] LEFT SIDE - STROKE Active [facility] CEREBRAL INFARCTION, Active [facility] [place] ALCOHOL Active [facility] HEMORRHAGE, NOT Active [facility] ELSEWHERE CLASSIFIED [place] ANESTHESIA OF SKIN Active [facility] Medications Medication Details Route Status Patient Ordering Order Source Instructions Provider Date topiramate 25 MG See Active Oral Tablet Instructions, 2016 [facility] [Topamax] 1 tab PO BID for 7 days, then 2 tab PO BID thereafter, # 70 tab, 0 Refill(s), Pharmacy: [facility]/pharmacy #[id number] clopidogrel 75 MG 75 mg=1 tab, Active Oral Tablet PO, Daily, # 2016 [facility] [Plavix] 30 tab, 0 Refill(s), Pharmacy: [facility]/pharmacy #[id number] NIFEdipine 60 mg 60 mg=1 tab, Active oral tablet, PO, Daily, # 2016 extended release 30 tab, 0 Refill(s), Pharmacy: [facility]/pharmacy #[id number] carvedilol 25 mg 25 mg=1 tab, Active oral tablet PO, BID, # 60 2016 tab, 0 Refill(s), Pharmacy: [facility]/pharmacy #[id number] atorvastatin 20 mg 20 mg=1 tab, Active oral tablet PO, Bedtime, # 2017 [facility] 30 tab, 0 Refill(s), Pharmacy: [facility]/pharmacy #[id number] Aspirin 325 MG 325 mg=1 tab, Active Enteric Coated PO, Daily, # 2017 [facility] Tablet 100 tab, 0 Refill(s), [id number] sacubitril 97 MG / 1 tab, PO, Active valsartan 103 MG BID, # 60 tab, 2017 [facility] Oral Tablet 0 Refill(s), Pharmacy: [facility]/pharmacy #[id number] heparin sodium, 5,000 unit, 1 Inactive porcine 2500 mL, Route: 2016 [facility] UNT/ML Injectable SUB-Q, Drug Solution form: INJ, Q8H, Dosing Weight 100, kg, Start date: 04/19/17 0:00:00 CDT, Duration: 30 day, Stop date: 05/18/17 16:00:00 CDTNotes: porcine heparin sacubitril 97 MG / 1 tab, Route: No Longer valsartan 103 MG PO, Drug Form: Active 2016 [facility] Oral Tablet TAB, Dosing Weight 100, kg, Q12H, Start date: 04/18/17 21:06:00 CDT, Duration: 30 day, Stop date: 05/18/17 21:00:00 CDTNotes: (Same as: Entresto) Avoid in patients with history of angioedema due to BECKY inhibitor or ARB therapy. Do not use concomitantly or within 36 hours of BECKY inhibitors Saline Flush 0.9% 10 ml, Route: No Longer IVP, Drug Active 2016 [facility] Form: INJ, Dosing Weight 100, kg, Q12H, Start date: 04/18/17 21:00:00 CDT, Duration: 30 day, Stop date: 05/18/17 9:00:00 CDTNotes: (Same as: BD Posiflush) atorvastatin 40 mg, 1 tab, Inactive Route: PO, 2016 [facility] Drug form: TAB, Bedtime, Dosing Weight 100, kg, Start date: 04/18/17 21:00:00 CDT, Duration: 30 day, Stop date: 05/17/17 21:00:00 CDTNotes: (Same as: Lipitor) Levetiracetam 750 750 mg, 1.5 No Longer MG Oral Tablet tab, Route: Active 2016 [facility] [Keppra] PO, Drug form: TAB, BID, Dosing Weight 100, kg, Start date: 04/18/17 21:00:00 CDT, Duration: 30 day, Stop date: 05/18/17 17:00:00 CDTNotes: (Same as:Keppra) carvedilol 25 mg, 1 tab, No Longer Route: PO, Active 2016 [facility] Drug form: TAB, Q12H, Dosing Weight 100, kg, Start date: 04/18/17 21:00:00 CDT, Duration: 30 day, Stop date: 05/18/17 9:00:00 CDTNotes: Give with food. (Same As: Coreg) Frantz's wort 1 tab, PO, Active oral capsule [id number], 0 2016 [facility] Refill(s) Ibuprofen 800 mg, PO, Active BID, 0 2016 Refill(s) gabapentin 300 MG 300 mg=1 cap, Active Oral Capsule PO, TID, # 90 2016 cap, 1 Refill(s) Hydralazine 10 mg, 0.5 mL, No Longer Route: IVP, Active 2016 [facility] Drug form: INJ, Q4H, Dosing Weight 100, kg, PRN Other -See Comment, Possible stroke patient - allow for some permissive hypertension, Start date: 04/18/17 17:33:00 CDT, Duration: 30 day, Stop date: 05/18/17 17:32:00 CDT, SBP...Notes: (Same as: Apresoline) Push over 5 minutes Zofran 4 mg, 2 mL, No Longer Route: IV, Active 2016 [facility] Drug form: INJ, Q8H, Dosing Weight 100, kg, PRN Nausea, Start date: 04/18/17 17:33:00 CDT, Duration: 30 day, Stop date: 05/18/17 17:32:00 CDTNotes: (Same as: Zofran) MEDICATION WASTE Product Size: 4 mg Product Wasted: ___ mg Tylenol 650 mg, 2 tab, No Longer Route: PO, Active 2016 [facility] Drug form: TAB, Q6H, Dosing Weight 100, kg, PRN Pain 1-3/Temp > 100.4 F, Start date: 04/18/17 17:33:00 CDT, Duration: 30 day, Stop date: 05/18/17 17:32:00 CDTNotes: Do not exceed 4 gm/day. (Same as: Tylenol) Tums 500 mg, 1 tab, No Longer Route: CHEW, Active 2016 [facility] Drug form: CHEWTAB, Q8H, Dosing Weight 100, kg, PRN Indigestion, Start date: 04/18/17 17:33:00 CDT, Duration: 30 day, Stop date: 05/18/17 17:32:00 CDTNotes: (Same As: Tums) Calcium Carbonate 500 pn=744 mg elemental calcium Dose= mg calcium carbonate ( mg elemental calcium) Saline Flush 0.9% 10 ml, Route: Inactive IVP, Drug 2016 [facility] Form: INJ, Dosing Weight 100, kg, PRN, PRN Line Flush, Start date: 04/18/17 17:33:00 CDT, Duration: 30 day, Stop date: 05/18/17 17:32:00 CDT Trazodone 50 mg, 1 tab, No Longer Route: PO, Active 2016 [facility] Drug form: TAB, Bedtime, Dosing Weight 100, kg, PRN Sleep, Start date: 04/18/17 17:33:00 CDT, Duration: 30 day, Stop date: 05/18/17 17:32:00 CDT, ..Notes: (Same As: Desyrel) clopidogrel 75 mg, 1 tab, No Longer Route: PO, Active 2016 [facility] Drug form: TAB, Daily, Dosing Weight 100, kg, Priority: STAT, Start date: 04/18/17 17:33:00 CDT, Duration: 30 day, Stop date: 05/18/17 9:00:00 CDTNotes: (Same As: Plavix) Aspirin 325 MG 325 mg, 1 tab, No Longer Enteric Coated Route: PO, Active 2016 [facility] Tablet Drug form: ECTAB, Daily, Dosing Weight 100, kg, Priority: STAT, Start date: 04/18/17 17:33:00 CDT, Duration: 30 day, Stop date: 05/18/17 9:00:00 CDTNotes: (Do Not Crush) Do not crush or chew. Famotidine 20 mg, 1 tab, No Longer Route: PO, Active 2016 [facility] Drug form: TAB, Q12H, Dosing Weight 100, kg, PRN Indigestion, Start date: 04/18/17 17:33:00 CDT, Duration: 30 day, Stop date: 05/18/17 17:32:00 CDTNotes: (Same as: Pepcid) Docusate 100 mg, 1 cap, No Longer Route: PO, Active 2016 [facility] Drug form: CAP, Q12H, Dosing Weight 100, kg, PRN as needed for constipation, Start date: 04/18/17 17:33:00 CDT, Duration: 30 day, Stop date: 05/18/17 17:32:00 CDTNotes: (Same as: Colace) (Do Not Crush) Aspirin 324 mg, 4 tab, Inactive Route: CHEW, 2016 [facility] Drug form: CHEWTAB, ONCE, Dosing Weight 100, kg, Priority: STAT, Start date: 04/18/17 17:30:00 CDT, Stop date: 04/18/17 17:30:00 CDTNotes: Take with food. Metoclopramide 10 mg, 2 mL, Inactive Route: IVP2016 [facility] Drug form: INJ, ONCE, Dosing Weight 100, kg, Priority: STAT, Start date: 04/18/17 15:27:00 CDT, Stop date: 04/18/17 15:27:00 CDTNotes: (Same as: Reglan) Diphenhydramine 25 mg, 0.5 mL, Inactive Route: IVP2016 [facility] Drug form: INJ, ONCE, Dosing Weight 100, kg, Priority: STAT, Start date: 04/18/17 15:27:00 CDT, Stop date: 04/18/17 15:27:00 CDTNotes: (Same as: Benadryl) Saline Flush 0.9% 10 mL, Route: No Longer IVP, Drug Active 2016 [facility] Form: INJ, Dosing Weight 100, kg, PRN, PRN Line Flush, Start date: 04/18/17 15:27:00 CDT, Duration: 30 day, Stop date: 05/18/17 15:26:00 CDTNotes: (Same as: BD Posiflush) Tylenol 650 mg, 2 tab, Inactive [facility] Route: PO, 2016 [facility] Drug form: TAB, ONCE, Dosing Weight 97.727, kg, Priority: STAT, Start date: 08/27/16 15:28:00 [employer] CHASSIS REPAIR, Stop date: 08/27/16 15:28:00 CSTNotes: Do not exceed 4 gm/day. (Same as: Tylenol) Saline Flush 0.9% 10 mL, Route: Inactive [facility] IVP, Drug 2016 [facility] Form: INJ, Dosing Weight 97.727, kg, PRN, PRN Line Flush, Start date: 08/27/16 13:45:00 [employer] REPAIR, Duration: 30 day, Stop date: 09/26/16 13:44:00 CSTNotes: Same as: BD Posiflush Sterile Levetiracetam 1000 1,000 mg, 2 Inactive [facility] MG Oral Tablet tab, Route: 2015 [facility] [Keppra] PO, Drug form: TAB, Q12H, Dosing Weight 97.727, kg, Start date: 07/30/16 21:00:00 [employer] REPAIR, Duration: 30 day, Stop date: 08/29/16 9:00:00 CSTNotes: (Same as:Keppra) Omnipaque 350 100 mL, 100 Inactive Greater ml/hr, Route: 2015 IV, Drug Form: SOLSylvia ONCALL, Start date: 07/30/16 9:00:00 [employer]ASS[employer] REPAIR, Duration: 48 hr, Stop date: 08/01/16 8:59:00 [...] Weight 97.727, kg, Start date: 07/29/16 9:00:00 [employer] REPAIR, Duration: 30 day, Stop date: 08/27/16 9:00:00 CSTNotes: Take with food. Ambien 5 mg, 1 tab, No Longer Greater Route: PO, Active 2015 Drug form: TAB, Bedtime, Dosing Weight 97.727, kg, PRN Insomnia, Start date: 07/28/16 21:30:00 [employer]ASS[employer] REPAIR, Duration: 30 day, Stop date: 08/27/16 21:29:00 CSTNotes: (Same As: Ambien) Chlordiazepoxide 25 mg, 1 cap, No Longer [facility] Hydrochloride 25 Route: PO, Active 2015 [facility] Oral Capsule Drug form: CAP, QID, Dosing Weight 97.727, kg, Start date: 07/28/16 17:00:00 [employer]ASS[employer] REPAIR, Duration: 30 day, Stop date: 08/27/16 13:00:00 [employer] REPAIR Keppra 1,000 mg, 100 No Longer Greater mL, Route: Active 2015 IVPB, Drug form: INJ, Q12H, Dosing Weight 97.727, kg, Priority: NOW, Start date: 07/28/16 14:54:00 [employer]ASS[employer] REPAIR, Duration: 30 day, Stop date: 08/27/16 9:00:00 [employer] REPAIR Levetiracetam 1000 1,000 mg, Inactive [facility] MG Oral Tablet Route: PO, 2015 [Keppra] Drug form: TAB, Q12H, Dosing Weight 97.727, kg, Priority: NOW, Start date: 07/28/16 14:53:00 [employer]ASS[employer] REPAIR, Duration: 30 day, Stop date: 08/27/16 9:00:00 [employer] REPAIR Benzocaine 15 MG / 1 lozenge, No Longer [facility] Menthol 3.6 MG Route: MUCOUS Active 2015 [facility] [Cepacol MEM, Drug Sore Throat Pain Form: LADARIUS, Relief 15/3.6] Dosing Weight 97.727, kg, Q4H, PRN Sore Throat, Start date: 07/28/16 10:06:00 [employer] REPAIR, Duration: 30 day, Stop date: 08/27/16 10:05:00 CSTNotes: Same as: Cepacol tramadol 50 mg, 1 tab, No Longer Greater hydrochloride 50 Route: PO, Active 2015 [facility] Oral Tablet Drug form: TAB, Q4H, Dosing Weight 97.727, kg, PRN Pain Score 1-3, Start date: 07/28/16 9:45:00 [employer] REPAIR, Duration: 30 day, Stop date: 08/27/16 9:44:00 CSTNotes: Not to exceed 400mg/day. (Same As: Ultram) sacubitril 49 MG / 1 tab, Route: No Longer [facility] valsartan 51 MG PO, Drug Form: Active 2015 Oral Tablet TAB, Dosing [Entresto] Weight 97.727, kg, BID, Start date: 07/28/16 9:00:00 [employer]ASS[employer] REPAIR, Duration: 30 day, Stop date: 08/26/16 17:00:00 [employer] REPAIR Ativan 1 mg, 0.5 mL, No Longer Greater Route: IVP, Active 2015 Drug form: INJ, Q15Min, Dosing Weight 97.727, kg, PRN Seizure, CALL MD IF SEIZURE DOES NOT STOP AFTER 2 DOSES, Start date: 07/28/16 4:38:00 [employer]ASS[employer] REPAIR, Duration: 30 day, Stop date: 08/27/16 4:37:00 CSTNotes: (Same as: Ativan) Saline Flush 0.9% 10 ml, Route: No Longer Greater IVP, Drug Active 2015 Form: INJ, Dosing Weight 97.727, kg, Q12H, Start date: 07/27/16 21:00:00 [employer]PERVIS[employer]ASS[employer] REPAIR, Duration: 30 day, Stop date: 08/26/16 9:00:00 CSTNotes: Same as: BD Posiflush Sterile Lipitor 20 mg, 1 tab, No Longer Greater Route: PO, Active 2015 Drug form: TAB, Bedtime, Dosing Weight 97.727, kg, Start date: 07/27/16 21:00:00 [employer]VISOR [employer]ASS[employer] REPAIR, Duration: 30 day, Stop date: 08/25/16 21:00:00 CSTNotes: (Same As: Lipitor) sacubitril-valsart 2 tab, Route: No Longer Greater an PO, Drug Form: 2015 TAB, Q12H, Start date: 07/27/16 21:00:00 [employer]PERVISOR [employer] CHASSIS REPAIR, Duration: 30 day, Stop date: 08/26/16 9:00:00 CSTNotes: (Same as: Entresto) Avoid in patients with history of angioedema due to BECKY inhibitor or ARB therapy. Do not use concomitantly or within 36 hours of BECKY inhibitors Clonidine 0.2 mg, 1 tab, No Longer Greater Hydrochloride 0.2 Route: PO, 2015 [facility] Oral Tablet Drug form: TAB, Q4H, Dosing Weight 97.727, kg, PRN Hypertension, FOR SBP>170, Start date: 07/27/16 20:28:00 SUPERVISOR [employer]ASSIS REPAIR, Duration: 30 day, Stop date: 08/26/16 20:27:00 CSTNotes: (Same As: Catapres) Tylenol 650 mg, 2 tab, No Longer Greater Route: PO, 2015 Drug form: TAB, Q4H, Dosing Weight 97.727, kg, PRN Pain Score 1-3, Start date: 07/27/16 20:25:00 [employer]PERVISOR [employer]ASSIS REPAIR, Duration: 30 day, Stop date: 08/26/16 20:24:00 CSTNotes: Do not exceed 4 gm/day. (Same as: Tylenol) Saline Flush 0.9% 10 ml, Route: No Longer Greater IVP, Drug Active 2015 Form: INJ, Dosing Weight 97.727, kg, PRN, PRN Line Flush, Start date: 07/27/16 19:29:00 SUPERVISOR TELE[employer] CHASSIS REPAIR, Duration: 30 day, Stop date: 08/26/16 19:28:00 CSTNotes: Same as: BD Posiflush Sterile 24 HR Nifedipine 60 mg, 1 tab, No Longer Greater 60 MG Extended Route: PO, Active 2015 Release Tablet Drug form: ERTAB, Daily, Dosing Weight 97.727, kg, Start date: 07/27/16 18:15:00 [employer]PERVIS[employer]ASS[employer] REPAIR, Duration: 30 day, Stop date: 08/26/16 9:00:00 CSTNotes: (Same as: Adalat CC, Procardia XL) Give on empty stomach. Take 1 hour before or 2 hours after meal; "Avoid grapefruit and grapefruit juice". Do not crush carvedilol 25 mg, 1 tab, No Longer Greater Route: PO, Active 2015 Drug form: TAB, BID, Dosing Weight 97.727, kg, Start date: 07/27/16 18:14:00 SUPERVISOR TELE[employer]ASSIS REPAIR, Duration: 30 day, Stop date: 08/26/16 17:00:00 CSTNotes: Give with food. (Same As: Coreg) Keppra 500 mg, Route: No Longer Greater IVPB, BID, Active 2015 Dosing Weight 97.727, kg, Priority: Routine, Start date: 07/27/16 17:00:00 SUPERVISOR TELE[employer] CHASSIS REPAIR, Duration: 30 day, Stop date: 08/26/16 5:00:00 CSTNotes: Same as Keppra Mix with 100 mL NS, LR or D5W MEDICATION WASTE Product Size: 500 mg Product Wasted: ___ mg Ativan 1 mg, 0.5 mL, Inactive Route: IVP, 2015 Drug form: INJ, ONCE, Priority: NOW, Start date: 07/27/16 16:22:00 SUPERVISOR TELE[employer] CHASSIS REPAIR, Stop date: 07/27/16 16:22:00 CSTNotes: (Same as: Ativan) pneumococcal 0.5 mL, Route: No Longer Greater capsular IM, Drug Form: Active 2015 polysaccharide INJ, ONCALL, type 1 vaccine / Start date: pneumococcal 07/27/16 capsular 14:55:38 [employer]PERVISOR [employer]ASSIS REPAIR, polysaccharide Stop date: type 10A vaccine / 08/26/16 pneumococcal 14:50:38 capsular CSTNotes: polysaccharide (Same as: type 11A vaccine / Pneumovax 23) pneumococcal Refrigerate capsular polysaccharide type 12F vaccine / pneumococcal capsular polysacchar influenza virus 0.5 mL, Route: No Longer Greater vaccine, IM, Drug Form: Active 2015 inactivated SUSP, ONCALL, Start date: 07/27/16 14:54:37 SUPERVISOR TELE[employer] CHASSIS REPAIR, Stop date: 08/26/16 14:49:37 CSTNotes: (Same as: [...] kg, Priority: STAT, Start date: 07/27/16 13:12:00 SUPERVISOR TELE[employer] CHASSIS REPAIR, Stop date: 07/27/16 13:12:00 CSTNotes: Take with food. Acetaminophen 325 1 tab, Route: Inactive Greater MG / Hydrocodone PO, Drug Form: 2015 Bitartrate 5 MG TAB, Dosing Oral Tablet [Faulkner Weight 97.727, 5/325] kg, ONCE, STAT, Start date: 07/27/16 13:12:00 SUPERVISOR TELE[employer] CHASSIS REPAIR, Stop date: 07/27/16 13:12:00 CSTNotes: (Same as: Faulkner 325/5) Do not exceed 4gm/day of acetaminophen. Saline Flush 0.9% 10 mL, Route: No Longer IVP, Drug Active 2015 Form: INJ, Dosing Weight 94.545, kg, PRN, PRN Line Flush, Start date: 07/27/16 11:14:00 SUPERVISOR TELE[employer] CHASSIS REPAIR, Duration: 30 day, Stop date: 08/26/16 11:13:00 CSTNotes: Same as: BD Posiflush Sterile Potassium Chloride 20 mEq=15 mL, Active Greater 1.33 MEQ/ML Oral PO, BID, 1.33 2015 Solution mEq/ml, # 150 mL, 0 Refill(s) potassium chloride 10 mEq, 100 Inactive Greater mL, Route: 2015 IVPB, Drug form: INJ, Q1H, Dosing Weight 94.545, kg, Total Dose=40 meq, Start date: 03/07/16 16:00:00 CDT, Duration: 4 doses or times, Stop date: 03/07/16 19:00:00 CDT, Peripheral LineNotes: Infuse at a rate of 10 mEq/hr. (Same as: KCL) sodium chloride 1,000 mL, Inactive Greater 0.9% 1000 ml INJ Rate: 1,000 2016 [facility] 1,000 mL ml/hr, Infuse over: 1 hr, Route: IV, Dosing Weight 94.545 kg, Total Volume: 1,000, Priority: STAT, Start date: 03/07/16 15:27:00 CDT, Duration: 1 doses or times, Stop date: 03/07/16 16:26:00 CDT atorvastatin 20 MG 20 mg=1 tab, Active Greater Oral Tablet PO, Daily 2016 [facility] [Lipitor] 24 HR Nifedipine 60 mg=1 tab, Active Greater 60 MG Extended PO, Daily 2016 [facility] Release Tablet lisinopril 20 mg 20 mg=1 tab, Active Greater oral tablet PO, BID 2015 [place] carvedilol 25 mg 25 mg=1 tab, Active Greater oral tablet PO, BID 2016 [facility] Potassium Chloride 40 mEq, 15 mL, Inactive Greater 1.33 MEQ/ML Oral Route: PO, 2015 [facility] Solution Drug form: LIQ, ONCE, Dosing Weight 94.545, kg, Priority: STAT, Start date: 03/07/16 15:12:00 CDT, Stop date: 03/07/16 15:12:00 CDT GI cocktail 30 mL, Route: Inactive Greater PO, Drug Form: 2015 [facility] SUSP, Dosing Weight 94.545, kg, ONCE, STAT, Start date: 03/07/16 13:44:00 CDT, Stop date: 03/07/16 13:44:00 CDTNotes: G.I. Cocktail=antac id with simethicone 22.5 mL - lidocaine viscous 7.5 mL Tylenol 650 mg, 2 tab, Inactive Greater Route: PO, 2015 [facility] Drug form: TAB, ONCE, Dosing Weight 94.545, [...] 100 mL, Route: Inactive INJ, Drug 2015 Form: SOLN, ONCALL, Start date: 02/18/16 16:00:00 CDT, Duration: 1 doses or timesNotes: (same as:Omnipaque 350). WASTE: F/P - Black; E - [employer] Hydralazine 20 mg, 1 mL, Inactive Route: IVP2015 Drug form: INJ, ONCE, Dosing Weight 81.818, [...] Labetalol 20 mg, 4 mL, Inactive Route: IVP2015 Drug form: INJ, ONCE, Dosing Weight 81.818, kg, Priority: STAT, Start date: 02/18/16 12:26:00 CDT, Stop date: 02/18/16 12:26:00 CDT Saline Flush 0.9% 10 mL, Route: Inactive Greater IVP, Drug 2015 [facility] Form: INJ, Dosing Weight 81.818, kg, PRN, PRN Line Flush, Start date: 02/18/16 11:44:00 CDT, Duration: 30 day, Stop date: 03/19/16 11:43:00 CDTNotes: Same as: BD Posiflush Sterile Naproxen sodium 550 mg=1 tab, Active MH 550 MG Oral Tablet PO, BID, PRN 2014 [facility] [Anaprox] Pain, X 10 day, # 20 tab, 0 Refill(s) Acetaminophen 300 1 - 2 tab, PO, No Longer MG / Codeine Q4H, PRN Pain, Active 2014 [facility] Phosphate 60 MG X 2 day, # 12 Oral Tablet tab, 0 [Tylenol with Refill(s) Codeine #4] Cyclobenzaprine 10 mg=1 tab, Active hydrochloride 10 PO, TID, PRN 2014 [facility] Oral Tablet for spasm/back [Flexeril] pain, X 5 day, # 15 tab, 0 Refill(s) carvedilol PO, 0 Active Refill(s) 2014 [facility] Lisinopril PO, Daily, 0 Active Refill(s) 2014 [facility] Metformin PO, 0 Active Refill(s) 2014 [facility] Simvastatin PO, Bedtime, 0 Active Refill(s) 2014 [facility] Hydrochlorothiazid PO, Daily, 0 Active e Refill(s) 2014 [facility] Morphine 4 mg, Route: Inactive IVP, ONCE, 2014 [facility] Dosing Weight 93.835, kg, Priority: STAT, Start date: 11/22/14 11:18:00, Stop date: 11/22/14 11:18:00 Ketorolac 30 mg, Route: Inactive IVP, ONCE, 2014 [facility] Dosing Weight 93.835, kg, Priority: STAT, Start date: 11/22/14 11:18:00, Stop date: 11/22/14 11:18:00 Ondansetron 4 mg, Route: Inactive IVP, ONCE, 2014 [facility] Dosing Weight 93.835, kg, Priority: STAT, Start date: 11/22/14 11:18:00, Stop date: 11/22/14 11:18:00 Saline Flush 0.9% 10 mL, Route: Inactive IVP, Drug 2014 [facility] Form: INJ, Dosing Weight 93.835, kg, PRN, PRN Line Flush, Start date: 11/22/14 11:18:00, Duration: 12 hr, Stop date: 11/22/14 23:17:00Notes: (Same as: BD Posiflush) Sodium Chloride 1,000 mL, Inactive 0.154 MEQ/ML Infuse Over: 1 2014 [facility] Injectable hr, Route: IV, Solution ONCE, Priority: STAT, Dosing Weight 93.835 kg, Start date: 11/22/14 11:18:00, Duration: 1 doses or times, Stop date: 11/22/14 11:18:00 tramadol 50 mg=1 tab, Active hydrochloride 50 PO, Q6H, # 30 2014 [facility] Oral Tablet tab, 0 Refill(s) lisinopril 10 mg 10 mg=1 tab, Active oral tablet PO, Daily, # 2014 [facility] 60 tab, 0 Refill(s) carvedilol 25 mg 25 mg=1 tab, Active oral tablet PO, Q12H, # 60 2014 [facility] tab, 0 Refill(s) Aspirin 81 MG 81 mg=1 tab, Active Enteric Coated PO, Daily, # 2014 [facility] Tablet 30 tab, 0 Refill(s) Hydrochlorothiazid 25 mg=1 tab, Active e 25 MG Oral PO, Daily, # 2014 [facility] Tablet 30 tab, 0 Refill(s) Alprazolam 0.5 MG 0.5 mg=1 tab, Active Oral Tablet PO, TID, 2014 [facility] [Xanax] Anxiety, # 24 tab, 0 Refill(s) Ciprofloxacin 500 500 mg=1 tab, Active MG Oral Tablet PO, Q12H, # 14 2014 [facility] [Cipro] tab, 0 Refill(s) Albuterol 0.09 1 puff, Active MG/ACTUAT Inhalant INHALATION, 2014 [facility] Solution QID, wheezing, # 1 ea, 0 Refill(s) {21 As directed on Active (Methylprednisolon package 2014 [facility] e 4 MG Oral Tablet instructions, [Medrol]) [...] Inactive Dextrose 5% in Route: IVPB, 2014 [place] [facility] [id number], Start date: 08/17/14 6:00:00, Duration: 30 day, Stop date: 09/15/14 18:00:00Notes: (Same As: Vancocin) Infusion rate 2001 mg: infuse over 2.5 hours vancomycin + 1.5 gm, Route: Inactive Dextrose 5% in IVPB, ONCE, 2014 [facility] Water IV 250 mL Start date: 08/16/14 18:00:00, Stop date: 08/16/14 18:00:00Notes: (Same As: Vancocin) Infusion rate 2001 mg: infuse over 2.5 hours Vancomycin 1 ea, Route: Inactive MISC, Dosing 2014 [facility] Weight 96.96, kg, ONCALL, STAT, Start date: 08/16/14 16:33:00, Duration: 1 doses or times, Pharmacy to doseSpecial Instructions: Pharmacy to dose Zosyn 3.375 gm, No Longer Route: IVPB, Active 2014 [facility] [id number], Dosing Weight 96.96, kg, Start date: 08/16/14 12:00:00, Duration: 30 day, Stop date: 09/12/14 12:00:00Notes: (Same as: Zosyn) Dosing based on Piperacillin component carvedilol 25 mg, 1 tab, No Longer Route: PO, Active 2014 [facility] Drug form: TAB, BID, Dosing Weight 113.636, kg, Start date: 08/15/14 21:00:00, Duration: 30 day, Stop date: 09/14/14 9:00:00Notes: Give with food. (Same As: Coreg) multivitamin 1 tab, Route: No Longer PO, Drug Form: Active 2014 [facility] TAB, BID, Start date: 08/15/14 21:00:00, Duration: 2 day, Stop date: 08/17/14 9:00:00Notes: Same as Cerefolin NAC Non-formulary item Levaquin 750 mg, 150 No Longer mL, Route: Active 2014 [facility] IVPB, Drug form: SOLN, [id number], Dosing Weight 96.96, kg, Start date: 08/15/14 19:00:00, Duration: 30 day, Stop date: 09/13/14 19:00:00Notes: (Same as:Levaquin) Albuterol 0.833 3 mL, Route: No Longer MG/ML / NEB, Drug Active 2014 [facility] Ipratropium Form: SOLN, [place] 0.167 Dosing Weight MG/ML Inhalant 113.636, kg, Solution [id number], Start date: 08/15/14 19:00:00, Stop date: 09/13/14 11:00:00Notes: (Same as: Mayeb) Vasotec 1.25 mg, 1 mL, No Longer Route: IVP, Active 2014 [facility] Drug form: INJ, Q8H, Dosing Weight 96.96, kg, PRN Other -See Comment, PRN SBP >/=160, Start date: 08/15/14 18:42:00, Duration: 30 day, Stop date: 09/14/14 18:41:00Notes: (Same as: Vasotec-IV) Acetylcysteine 200 600 mg, Route: Inactive MG/ML Inhalant PO, Drug form: 2014 [facility] Solution SOLN, BID, Dosing Weight 96.96, kg, Priority: STAT, Start date: 08/15/14 18:35:00, Duration: 2 day, Stop date: 08/17/14 17:00:00 Lopressor 5 mg, 5 mL, No Longer Route: IVP, Active 2014 [facility] Drug form: INJ, Q6H, Dosing Weight 96.96, kg, PRN Other -See Comment, Start date: 08/15/14 18:34:00, Duration: 30 day, Stop date: 09/14/14 18:33:00, HR >/=100 OR SBP >/=175Notes: (Same as: Lopressor) Push over 2 minutes Clonidine 0.1 mg, 1 tab, No Longer Hydrochloride 0.1 Route: PO, Active 2014 [place] [facility] Oral Tablet Drug form: TAB, TID, Dosing Weight 96.96, kg, PRN Other -See Comment, Start date: 08/15/14 18:34:00, Duration: 30 day, Stop date: 09/14/14 18:33:00, sbp >/=180Notes: (Same As: Catapres) Hydralazine 10 mg, 0.5 mL, No Longer Route: IVP, Active 2014 [facility] Drug form: INJ, Q6H, Dosing Weight 96.96, kg, PRN Other -See Comment, Start date: 08/15/14 18:34:00, Duration: 30 day, Stop date: 09/14/14 18:33:00, SBP>/=160 OR DBP>/=90Notes: (Same as: Apresoline) Push over 5 minutes Ativan 1 mg, 0.5 mL, No Longer Route: IVP, Active 2014 [facility] Drug form: INJ, TID, Dosing Weight 96.96, kg, PRN Anxiety, Priority: STAT, Start date: 08/15/14 16:16:00, Duration: 30 day, Stop date: 09/14/14 16:15:00Notes: (Same as: Ativan) Morphine 2 mg, 1 mL, No Longer Route: IVP, Active 2014 [facility] Drug form: INJ, Q6H, Dosing Weight 96.96, kg, PRN Pain Score 4-6, Start date: 08/15/14 16:15:00, Duration: 30 day, Stop date: 09/14/14 16:14:00Notes: (Same as:MORPhine Sulfate) Ativan 0.25 mg, 0.13 Inactive mL, Route: IV, 2014 [facility] Drug form: INJ, ONCE, Dosing Weight 96.96, kg, Start date: 08/15/14 14:15:00, Stop date: 08/15/14 14:15:00Notes: (Same as: Ativan) Aspirin 81 MG 81 mg, 1 tab, No Longer Enteric Coated Route: PO, Active 2014 [facility] Tablet Drug form: ECTAB, Daily, Dosing Weight 96.96, kg, Start date: 08/15/14 9:00:00, Duration: 30 day, Stop date: 09/13/14 9:00:00Notes: Do not crush or chew. (Same As: Ecotrin) Simvastatin 40 mg, 2 tab, No Longer Route: PO, Active 2014 [facility] Drug form: TAB, Bedtime, Dosing Weight 96.96, kg, Start date: 08/14/14 21:00:00, Duration: 30 day, Stop date: 09/12/14 21:00:00Notes: (Same as: Zocor) Coreg 12.5 mg, 1 No Longer tab, Route: Active 2014 [facility] PO, Drug form: TAB, Q12H, Dosing Weight 96.96, kg, Start date: 08/14/14 21:00:00, Duration: 30 day, Stop date: 09/13/14 9:00:00Notes: Give with food. (Same As: Coreg) Acetaminophen 650 mg, 1 No Longer supp, Route: Active 2014 [facility] MN, Drug form: SUPP, Q6H, Dosing Weight 96.96, kg, PRN For Temp > 100.4 F, Start date: 08/14/14 19:53:00, Duration: 30 day, Stop date: 09/13/14 19:52:00Notes: Max acetaminophen= 4000 mg/day (4 gm/day). (Same as: Tylenol) tramadol 50 mg, 1 tab, No Longer hydrochloride 50 Route: PO, Active 2015 [place] [facility] Oral Tablet Drug form: TAB, Q4H, Dosing Weight 96.96, kg, PRN Pain Score 1-3, Start date: 08/14/14 19:53:00, Duration: 30 day, Stop date: 09/13/14 19:52:00Notes: Not to exceed 400mg/day. (Same As: Ultram) Insulin, Aspart, 1 unit, 0.01 No Longer Human mL, Route: Active 2014 [facility] SUB-Q, Drug form: SOLN, TID-Before Meals, Dosing [...] No Longer Syringe mL, Route: Active 2014 [facility] IVP, Drug Form: INJ, Dosing Weight 96.96, kg, PRN, PRN Blood Glucose Results, Start date: 08/14/14 19:28:00, Duration: 30 day, Stop date: 09/13/14 19:27:00 Glucagon 1 mg, Route: No Longer IM, Drug form: Active 2014 [facility] PDR/INJ, PRN, Dosing Weight 96.96, kg, PRN Blood Glucose Results, Start date: 08/14/14 19:28:00, Duration: 30 day, Stop date: 09/13/14 19:27:00 Magnesium Oxide 400 mg, 1 tab, No Longer Route: PO, Active 2014 [facility] Drug form: TAB, BID, Dosing Weight 113.636, kg, Start date: 08/14/14 11:30:00, Duration: 30 day, Stop date: 09/13/14 9:00:00Notes: (Same as: Mag-Ox 400) Magnesium oxide [id number] elemental magnesium Dose=____mg magnesium oxide (___mg elemental magnesium) Lisinopril 10 mg, 1 tab, No Longer Route: PO, Active 2014 [facility] Drug form: TAB, BID, Dosing Weight 113.636, kg, Start date: 08/14/14 11:30:00, Duration: 30 day, Stop date: 09/13/14 9:00:00Notes: (Same as: Prinivil, Zestril) carvedilol 25 mg, 1 tab, No Longer Route: PO, Active 2014 [facility] Drug form: TAB, BID, Dosing Weight 113.636, kg, Start date: 08/14/14 11:30:00, Duration: 30 day, Stop date: 09/13/14 9:00:00Notes: Give with food. (Same As: Coreg) Hydralazine 10 mg, 0.5 mL, No Longer Route: IVP, Active 2014 [facility] Drug form: INJ, Q2H, Dosing Weight 113.636, kg, PRN Hypertension, Priority: STAT, Start date: 08/14/14 11:04:00, Stop date: 09/13/14 11:03:00, For SBP above 180 and DBP above 110Notes: (Same as: Apresoline) Push over 5 minutes Tamiflu 75 mg, 1 cap, No Longer Route: PO, Active 2014 [facility] Drug form: CAP, [id number], Dosing Weight 113.636, kg, CrCl >=30 ml/hr, Start date: 08/14/14 11:00:00, Duration: 5 day, Stop date: 08/18/14 23:00:00Notes: Take with food. Same as: Tamiflu) Enoxaparin 40 mg, 0.4 mL, No Longer Route: SUB-Q, Active 2014 [facility] Drug form: INJ, [id number], Dosing Weight 113.636, kg, Start date: 08/14/14 11:00:00, Duration: 30 day, Stop date: 09/12/14 11:00:00Notes: (Same as: Lovenox) Albuterol 0.833 3 mL, Route: No Longer MG/ML / NEB, Drug Active 2014 [facility] Ipratropium Form: SOLN, [place] 0.167 Dosing Weight MG/ML Inhalant 113.636, kg, Solution PRN, PRN Respiratory Protocol, Start date: 08/14/14 10:53:00, Duration: 30 day, Stop date: 09/13/14 10:52:00Notes: (Same as: Duoneb) Ondansetron 4 mg, 2 mL, No Longer Route: IVP, Active 2014 [facility] Drug form: INJ, Q6H, Dosing Weight 113.636, kg, PRN Nausea & Vomiting, Start date: 08/14/14 10:53:00, Duration: 30 day, Stop date: 09/13/14 10:52:00Notes: (Same as: Zofran) Acetaminophen 650 mg, 2 tab, No Longer Route: PO, Active 2014 [facility] Drug form: TAB, Q4H, Dosing Weight 113.636, kg, PRN Pain Score 1-3, For fever > 100.4. Not to exceed 4 grams in 24 hours, Start date: 08/14/14 10:53:00, Duration: 30 day, Stop date: 09/13/14 10:52:00Notes: Do not exceed 4 gm/day. (Same as: Tylenol) Guaifenesin 200 mg, 10 mL, No Longer Route: PO, Active 2014 [facility] Drug form: SYRP, Q4H, Dosing Weight 113.636, kg, PRN Cough, Start date: 08/14/14 10:53:00, Duration: 30 day, Stop date: 09/13/14 10:52:00Notes: (Same as: Robitussin) Lasix 40 mg, 4 mL, Inactive Route: IVP, 2014 [facility] Drug form: INJ, ONCE, Dosing Weight 113.636, kg, Priority: STAT, Start date: 08/14/14 8:27:00, Stop date: 08/14/14 8:27:00Notes: (Same as: Lasix) Zithromax 500 mg, 250 Inactive mL, Route: 2014 [facility] IVPB, Drug form: PDR/INJ, ONCE, Dosing Weight 113.636, kg, Priority: STAT, Start date: 08/14/14 8:27:00, Stop date: 08/14/14 8:27:00Notes: Same as: Zithromax Rocephin 1 gm, Route: Inactive IVPB, ONCE, 2014 [facility] Dosing Weight 113.636, kg, Priority: STAT, Start date: 08/14/14 8:27:00, Stop date: 08/14/14 8:27:00Notes: (Same As: Rocephin). Use with 100ml NS mini-bag PLUS and infuse over 30 min Labetalol 10 mg, 2 mL, Inactive Route: IVP, 2014 [facility] Drug form: INJ, ONCE, Dosing Weight 113.636, kg, Priority: STAT, Start date: 08/14/14 7:45:00, Stop date: 08/14/14 7:45:00Notes: (Same as: Normodyne, Trandate) Push over 2 minutes Give bolus over 2-3 minutes. 24 HR 1 patch, Inactive Nitroglycerin 0.4 Route: 2014 [facility] Transdermal Transdermal, Patch Drug Form: ERFILM, Dosing Weight 113.636, kg, ONCE, Start date: 08/14/14 7:45:00, Stop date: 08/14/14 7:45:00Notes: Apply only once for up to 12 hours in a 24 hour period (12 hours on and 12 hours off.) (Same as:Nitro-MarisolD eponimorales,Transde rm Nitro) For topical use only. "Remove old patch before application of new patch" Albuterol 1 MG/ML 5 mg, 1 mL, Inactive Inhalant Solution Route: 2014 [facility] INHALATION, Drug form: SOLN, ONCE, Dosing Weight 113.636, kg, Start date: 08/14/14 7:45:00, Stop date: 08/14/14 7:45:00Notes: SEE RT DOCUMENTATION Saline Flush 0.9% 10 mL, Route: No Longer IVP, Drug Active 2014 [facility] Form: INJ, Dosing Weight 113.636, kg, PRN, PRN Line Flush, Start date: 08/14/14 7:28:00, Duration: 1 day, Stop date: 08/15/14 7:27:00Notes: (Same as: BD Posiflush) Sodium Chloride 1,000 mL, 1000 Inactive 0.154 MEQ/ML ml/hr, Infuse 2014 [facility] Injectable Over: 1 hr, Solution Route: IV, 1,000, Drug form: INJ, ONCE, Priority: STAT, Dosing Weight 113.636 kg, Start date: 08/14/14 7:28:00, Duration: 1 doses or times, Stop date: 08/14/14 7:28:00 Ibuprofen 400 mg, 1 tab, Inactive Route: PO, 2014 [facility] Drug form: TAB, ONCE, Dosing Weight 113.636, kg, Start date: 08/14/14 7:28:00, Stop date: 08/14/14 7:28:00Notes: (Same as: Motrin) "Do Not Crush" Give with food. Acetaminophen 650 mg, 2 tab, Inactive Route: PO, 2014 [facility] Drug form: TAB, ONCE, Dosing Weight 113.636, kg, Start date: 08/14/14 7:28:00, Stop date: 08/14/14 7:28:00Notes: Do not exceed 4 gm/day. (Same as: Tylenol) Acetaminophen 325 1 tab, PO, Active [place] [facility] / Hydrocodone Q4H, Pain 2013 [facility] Bitartrate 10 MG Score 4-6, # Center Oral Tablet 42 tab, 0 Refill(s), other Hydrochlorothiazid 25 mg=1 tab, Active [place] e 25 MG Oral PO, Daily, # 2013 [facility] Tablet 14 tab, 0 Center Refill(s) lisinopril 10 mg 10 mg=1 tab, Active [place] oral tablet PO, Daily, # 2013 [facility] 14 tab, 0 Center Refill(s) tramadol 50 mg=1 tab, Active [place] hydrochloride 50 PO, Q6H, # 30 2013 [facility] Oral Tablet tab, 0 Center Refill(s) Sulfamethoxazole 1 tab, PO, Active [place] 800 MG / [id number], # 14 2013 [facility] Trimethoprim 160 tab, 0 [facility] MG Oral Tablet Refill(s) Docusate Sodium 50 1 tab, PO, Active [place] MG / sennosides, BID, # 30 tab, 2014 [facility] INTERMEDIATE 8.6 MG Oral 0 Refill(s) Center Tablet carvedilol 25 mg 25 mg=1 tab, Active [place] oral tablet PO, Q12H, # 30 2014 [facility] tab, 0 Center Refill(s) Aspirin 81 MG 81 mg=1 tab, Active Enteric Coated PO, Daily, # 2014 [facility] Tablet 30 tab, 0 Center Refill(s) Amoxicillin 875 MG 1 tab, PO, Active [place] / Clavulanate 125 Q12H, # 14 2013 [facility] Oral Tablet tab, 0 Center [Augmentin 875-mg] Refill(s) carvedilol 25 mg, 1 tab, No Longer Route: PO, Active 2013 [facility] Drug form: Center TAB, Q12H, Dosing Weight 97.727, kg, Start date: 05/12/14 21:00:00, Duration: 30 day, Stop date: 06/11/14 9:00:00Notes: Give with food. (Same As: Coreg) Docusate Sodium 50 1 tab, Route: No Longer [place] [facility] / sennosides, PO, Drug Form: Active 2013 [facility] INTERMEDIATE 8.6 MG Oral TAB, Dosing Center Tablet Weight 97.727, kg, BID, Start date: 05/12/14 9:00:00, Duration: 30 day, Stop date: 06/10/14 17:00:00Notes: (Same as Senokot-S) Equiv. to Lorie-Colace. Fluzone 0.5 mL, Route: No Longer [place] Quadrivalent IM, Drug Form: Active 2013 [facility] [id number] SUSP, ONCALL, Center Start date: 05/12/14 9:00:00, Duration: 1 doses or times, Stop date: 05/13/14 0:00:00Notes: (Same as: Fluzone Quadrivalent) Lisinopril 10 mg, 1 tab, No Longer [place] Route: PO, Active 2013 [facility] Drug form: [...] Ultram) carvedilol 12.5 mg, 1 No Longer [place] tab, Route: Active 2013 [facility] PO, Drug form: Center TAB, Q12H, Dosing Weight 97.727, kg, Start date: 05/11/14 21:00:00, Duration: 30 day, Stop date: 06/10/14 9:00:00Notes: Give with food. (Same As: Coreg) Amoxicillin 875 MG 1 tab, Route: No Longer / Clavulanate 125 PO, Drug Form: Active 2013 [facility] Oral Tablet TAB, Dosing Center [Augmentin 875-mg] Weight 97.727, kg, Q12H, Start date: 05/11/14 21:00:00, Duration: 30 day, Stop date: 06/10/14 9:00:00Notes: With food. (Same as: Augmentin 875) Bactrim DS 1 tab, Route: No Longer [place] PO, Drug Form: Active 2013 [facility] TAB, Dosing Center Weight 97.727, kg, [id number], Start date: 05/11/14 19:00:00, Duration: 30 day, [...] Prinivil, Zestril) Coreg 6.25 mg, 1 Inactive [facility] tab, Route: 2013 [facility] PO, Drug form: Center TAB, ONCE, Dosing Weight 97.727, kg, Start date: 05/11/14 13:46:00, Stop date: 05/11/14 13:46:00Notes: Give with food. (Same As: Coreg) Coreg 6.25 mg, 1 Inactive [facility] tab, Route: 2013 [facility] PO, Drug form: Center TAB, ONCE, Dosing Weight 97.727, kg, Start date: 05/11/14 11:24:00, Stop date: 05/11/14 11:24:00Notes: Give with food. (Same As: Coreg) Lisinopril 5 mg, 1 tab, Inactive [place] Route: PO, 2013 [facility] Drug form: Center TAB, ONCE, Dosing Weight 97.727, kg, Start date: 05/11/14 11:24:00, Stop date: 05/11/14 11:24:00Notes: (Same as: Prinivil, Zestril) vancomycin + 1.75 gm, Inactive [place] Sodium Chloride Route: IVPB, 2013 [facility] 0.9% IV 500 mL [id number], Start Center date: 05/11/14 10:00:00, Duration: 30 day, Stop date: 06/09/14 22:00:00Notes: (Same As: Vancocin) Infusion rate 2001 mg: infuse over 2.5 hours Vancomycin FOR IV SET ONLY 24 HR 1 patch, Inactive [place] Nitroglycerin 0.2 Route: [facility], 2013 [facility] MG/HR Transdermal Drug Form: [place] Patch ERFILM, Dosing Weight 97.727, kg, Daily, Start date: 05/11/14 9:00:00, Duration: 1 day, Stop date: 05/11/14 9:00:00Notes: Apply only once for up to 12 hours in a 24 hour period (12 hours on and 12 hours off.) (Same as:Nitro-Kaylin Damon,Nicoláse rm Nitro) For topical use only. "Remove old patch before application of new patch" atorvastatin 80 mg, 2 tab, Inactive [place] Route: PO, 2013 [facility] Drug form: [place] TAB, ONCE, Dosing Weight 97.727, kg, Priority: STAT, Start date: 05/11/14 6:18:00, Stop date: 05/11/14 6:18:00Notes: (Same as: Lipitor) Metoprolol 5 mg, 5 mL, No Longer [facility] Route: IVP, Active 2013 [facility] Drug form: [place] INJ, Q2MIN, Dosing Weight 97.727, kg, PRN Other -See Comment, Start date: 05/11/14 6:18:00, Duration: 3 doses or times, Stop date: Limited # of timesNotes: (Same as: Lopressor) Push over 2 minutes aspirin 325 mg, 1 tab, No Longer [place] Route: PO, Active 2013 [facility] Drug form: [place] TAB, Daily, Dosing Weight 97.727, kg, Priority: NOW, Start date: 05/11/14 6:17:00, Duration: 30 day, Stop date: 06/09/14 9:00:00Notes: Take with food. Labetalol 20 mg, Route: Inactive [place] IVP, Drug 2013 [facility] form: INJ, Center ONCE, Dosing Weight 97.727, kg, Priority: STAT, Start date: 05/11/14 5:52:00, Stop date: 05/11/14 5:52:00 Hydralazine 10 mg, 0.5 mL, No Longer [place] Route: IVP, Active 2013 [facility] Drug form: Center INJ, Q4H, Dosing Weight 97.727, kg, PRN Elevated BP, Start date: 05/11/14 4:59:00, Duration: 30 day, Stop date: 06/10/14 4:58:00, SBP>160Notes: (Same as: Apresoline) Push over 5 minutes Hydralazine 10 mg, 0.5 mL, Inactive [place] Route: IVP, 2013 [facility] Drug form: Center INJ, Q20Min, Dosing Weight 97.727, kg, PRN Elevated BP, Start date: 05/10/14 19:38:00, Duration: 2 doses or times, Stop date: 05/11/14 0:00:00Notes: (Same as: Apresoline) Push over 5 minutes Labetalol 10 mg, 2 mL, Inactive [place] Route: IVP2013 [facility] Drug form: Center INJ, Q5Min, Dosing Weight 97.727, kg, PRN Elevated BP, Start date: 05/10/14 17:35:00, Duration: 5 doses or times, Stop date: 05/11/14 0:00:00 Fentanyl 25 microgram, Inactive [place] 0.5 mL, Route: 2013 [facility] IVP, Drug Center form: INJ, Q5Min, Dosing Weight 97.727, kg, PRN Pain Score 4-6, Start date: 05/10/14 17:35:00, Duration: 4 doses or times, Stop date: 05/11/14 0:00:00Notes: (Same as: Sublimaze) Preservative free. Hydromorphone 0.5 mg, 0.25 Inactive [place] mL, Route: 2013 [facility] IVP, Drug Center form: INJ, Q5Min, Dosing Weight 97.727, kg, PRN Pain Score 7-10, Start date: 05/10/14 17:35:00, Duration: 4 doses or times, Stop date: 05/11/14 0:00:00Notes: Same as: Dilaudid Promethazine 6.25 mg, 0.25 Inactive [place] mL, Route: 2013 [facility] IVPB, Drug Center form: INJ, ONCE, Dosing Weight 97.727, kg, PRN Nausea & Vomiting, Start date: 05/10/14 17:35:00Notes: Do not give IV push. (Same as: Phenergan) Ondansetron 4 mg, 2 mL, Inactive [place] Route: IVP, 2013 [facility] Drug form: Center INJ, ONCE, Dosing Weight 97.727, kg, PRN Nausea & Vomiting, Start date: 05/10/14 17:35:00Notes: (Same as: Zofran) Lisinopril 5 mg, 1 tab, No Longer [place] Route: PO, Active 2013 [facility] Drug form: Center TAB, Daily, Dosing Weight 97.727, kg, Start date: 05/10/14 0:00:00, Duration: 30 day, Stop date: 06/08/14 9:00:00Notes: (Same as: Prinivil, Zestril) vancomycin + 1.25 gm, No Longer [facility] Sodium Chloride Route: IVPB, Active 2013 [facility] 0.9% IV 250 mL [id number], Start Center date: 05/09/14 12:00:00, Duration: 30 day, Stop date: 06/08/14 2:00:00Notes: (Same As: Vancocin) Infusion rate 2001 mg: infuse over 2.5 hours Vancomycin FOR IV SET ONLY vancomycin + 2 gm, Route: Inactive [place] Sodium Chloride IVPB, ONCE, 2013 [facility] 0.9% IV 500 mL Start date: Center 05/09/14 10:00:00, Stop date: 05/09/14 10:00:00Notes: (Same As: Vancocin) Infusion rate 2001 mg: infuse over 2.5 hours Vancomycin FOR IV SET ONLY aspirin 81 mg, 1 tab, No Longer [place] Route: PO, Active 2013 [facility] Drug form: [place] ECTAB, Daily, Dosing Weight 97.727, kg, Start date: 05/09/14 9:00:00, Duration: 30 day, Stop date: 06/07/14 9:00:00Notes: Do not crush or chew. (Same As: Ecotrin) carvedilol 6.25 mg, 1 No Longer [place] tab, Route: Active 2013 [facility] PO, Drug form: [place] TAB, Q12H, Dosing Weight 97.727, kg, Start date: 05/09/14 9:00:00, Duration: 30 day, Stop date: 06/07/14 21:00:00Notes: Give with food. (Same As: Coreg) Influenza Virus 0.5 mL, Route: Inactive [place] Vaccine, IM, Drug Form: 2013 Medical Inactivated SUSP, Daily, [place] [id number] Start date: (H3N2)-like virus 05/09/14 ([id number] 9:00:00, 7 [facility] [id number]) Duration: 1 strain / Influenza doses or Virus Vaccine, times, Stop Inactivated date: 05/09/14 [id number] 9:00:00Notes: , [id number] (H1N1) (Same as: strain / Influenza Fluzone Virus Vaccine, Quadrivalent) Inactivated, [id number] Docusate 100 mg, 1 cap, No Longer [place] Route: PO, Active 2013 [facility] Drug form: [place] CAP, BID, Dosing Weight 97.727, kg, Start date: 05/09/14 9:00:00, Duration: 30 day, Stop date: 06/07/14 17:00:00Notes: (Same as: Colace) Ceftriaxone 1 gm, Route: No Longer [facility] IVPB, Drug Active 2013 [facility] form: PDR/INJ, [place] [id number], Dosing Weight 97.727, kg, Start date: 05/09/14 7:00:00, Duration: 30 day, Stop date: 06/07/14 7:00:00Notes: (Same As: Rocephin). Use with 100ml NS mini-bag PLUS and infuse over 30 min Zofran 4 mg, 2 mL, No Longer [facility] Route: IV, Active 2013 [facility] Drug form: Center INJ, Q8H, Dosing Weight 97.727, kg, PRN Nausea, Start date: 05/09/14 6:40:00, Duration: 30 day, Stop date: 06/08/14 6:39:00Notes: (Same as: Zofran) Vancomycin 1 gm, Route: Inactive [place] IV, Drug form: 2013 Medical INJ, ONCE, Center Dosing Weight 97.727, kg, Start date: 05/09/14 6:39:00, Stop date: 05/09/14 6:39:00Notes: (Same As: Vancocin) Infusion rate 2001 mg: infuse over 2.5 hours Potassium Chloride 20 mEq, 100 Inactive [place] mL, Route: 2013 [facility] IVPB, Drug Center form: INJ, ONCE, Dosing Weight 97.727, kg, Start date: 05/09/14 6:36:00, Stop date: 05/09/14 6:36:00Notes: (Same as: KCL) Infuse no faster than 10 mEq/hr if given peripherally. Insulin, Aspart, 2 unit, 0.02 No Longer [facility] Human mL, Route: Active 2013 [facility] SUB-Q, [...] 50% 25 gm, 50 mL, No Longer [facility] Syringe Route: IVP, Active 2013 [facility] Drug Form: Center INJ, Dosing Weight 97.727, kg, PRN, PRN Blood Glucose Results, Start date: 05/09/14 6:36:00, Duration: 30 day, Stop date: 06/08/14 5:35:00 Glucagon 1 mg, Route: No Longer [place] IM, Drug form: Active 2013 Medical PDR/INJ, PRN, Center Dosing Weight 97.727, kg, PRN Blood Glucose Results, Start date: 05/09/14 6:36:00, Duration: 30 day, Stop date: 06/08/14 5:35:00 Saline Flush 0.9% 10 ml, Route: No Longer [place] IVP, Drug Active 2013 [facility] Form: INJ, Center Dosing Weight 97.727, kg, PRN, PRN Line Flush, Start date: 05/09/14 6:35:00, Duration: 30 day, Stop date: 06/08/14 5:34:00Notes: (Same as: BD Posiflush) Ondansetron 4 mg, 2 mL, No Longer [place] Route: IVP, Active 2013 [facility] Drug form: Center INJ, ONCE, Dosing Weight 97.727, kg, PRN Nausea & Vomiting, Start date: 05/09/14 6:35:00Notes: (Same as: Zofran) Acetaminophen 650 mg, 2 tab, No Longer [facility] Route: PO, Active 2013 [facility] Drug form: Center TAB, Q4H, Dosing Weight 97.727, kg, PRN Pain 1-3/Temp > 100.4 F, Start date: 05/09/14 6:35:00, Duration: 30 day, Stop date: 06/08/14 6:34:00Notes: Do not exceed 4 gm/day. (Same as: Tylenol) Acetaminophen 325 1 tab, Route: No Longer [place] MG / Hydrocodone PO, Drug Form: Active 2013 [facility] Bitartrate 5 MG TAB, Dosing [facility] Oral Tablet Weight 97.727, kg, Q4H, PRN Pain Score 1-3, Start date: 05/09/14 6:35:00, Duration: 30 day, Stop date: 06/08/14 6:34:00Notes: (Same as: [place] 325/5) Do not exceed 4gm/day of acetaminophen. Morphine 2 mg, 1 mL, No Longer [place] Route: IVP, Active 2013 Medical Drug form: Center INJ, Q4H, Dosing Weight 97.727, kg, PRN Pain Score 4-6, Start date: 05/09/14 6:35:00, Duration: 30 day, Stop date: 06/08/14 6:34:00Notes: (Same as:MORPhine Sulfate) Acetaminophen 325 1 tab, Route: No Longer [place] MG / Hydrocodone PO, Drug Form: Active 2013 [facility] Bitartrate 10 MG TAB, Dosing Center Oral Tablet Weight 97.727, kg, Q4H, PRN Pain Score 4-6, Start date: 05/09/14 6:35:00, Duration: 30 day, Stop date: 06/08/14 6:34:00Notes: Do not exceed 4gm/day of acetaminophen. (Same as: [place] 325/10) Metformin 500 mg=1 tab, Active [facility] hydrochloride 500 PO, BID, # 30 2013 Medical MG Oral Tablet tab, 0 Center Refill(s) Dilaudid 1 mg, Route: Inactive [facility] IVP, ONCE, 2013 [facility] 113.636, kg, Priority: STAT, Start date: 05/09/14 3:14:00, Stop date: 05/09/14 3:14:00 Ceftriaxone 1 gm, Route: Inactive [facility] IVPB, Drug 2013 Medical form: PDR/INJ, Center ONCE, Dosing Weight 113.636, kg, Priority: STAT, Start date: 05/09/14 3:08:00, Stop date: 05/09/14 3:08:00Notes: (Same As: Rocephin). Use with 100ml NS mini-bag PLUS and infuse over 30 min Doxycycline 100 mg, 1 tab, Inactive [facility] Route: PO, 2013 Medical Drug form: Center TAB, ONCE, Dosing Weight 113.636, kg, Start date: 05/09/14 3:06:00, Stop date: 05/09/14 3:06:00Notes: NO MILK/ANTACIDS/ IRON Take 1 hour before or 2 hours after dairy products NS 1,000 mL 1,000 mL, Inactive Rate: bolus, 2013 [facility] Route: IV, Dosing Weight 97.727 kg, Total Volume: 1,000, Start date: 05/09/14 0:12:00, Stop date: 06/07/14 23:11:00, Bolus DoseSpecial Instructions: Bolus Dose Ondansetron 4 mg, 2 mL, No Longer Route: IVP, 2013 [facility] Drug form: INJ, ONCE, Dosing Weight 97.727, kg, Priority: STAT, Start date: 05/08/14 23:58:00, Stop date: 05/08/14 23:58:00Notes: (Same as: Zofran) Dilaudid 1 mg, 1 mL, No Longer Route: IV, Active 2013 [facility] Drug form: INJ, ONCE, Dosing Weight 97.727, kg, Priority: STAT, Start date: 05/08/14 23:58:00, Stop date: 05/08/14 23:58:00Notes: Same as: Dilaudid Vancomycin 2,000 mg, 500 No Longer mL, Route: 2013 [facility] IVPB, Drug form: SOLN, ONCE, Dosing Weight 97.727, kg, Priority: STAT, Start date: 05/08/14 23:57:00, Stop date: 05/08/14 23:57:00Notes: Same as: Vancocin Infusion rate 2001 mg: infuse over 2.5 hours Saline Flush 0.9% 10 mL, Route: No Longer IVP, Drug Active 2013 [facility] Form: INJ, Dosing Weight 97.727, kg, PRN, PRN Line Flush, Start date: 05/08/14 23:57:00, Duration: 30 day, Stop date: 06/07/14 22:56:00Notes: (Same as: BD Posiflush) Lisinopril 5 mg, 1 tab, No Longer Route: PO, Active 2013 [facility] Drug form: TAB, Daily, Dosing Weight 92.045, kg, Start date: 02/10/14 9:00:00, Duration: 30 day, Stop date: 03/11/14 9:00:00Notes: (Same as: Prinivil, Zestril) Coreg 6.25 mg, 0.5 Inactive tab, Route: 2013 [facility] PO, Drug form: TAB, BID, Dosing Weight 92.045, kg, Start date: 02/09/14 21:00:00, Duration: 30 day, Stop date: 03/11/14 9:00:00Notes: Give with food. (Same As: Coreg) lisinopril 5 mg 5 mg=1 tab, Active oral tablet PO, Daily, # 2013 [place] 30 tab, 0 Refill(s) carvedilol 12.5 mg 6.25 mg=0.5 Active oral tablet tab, PO, BID, 2013 [facility] # 15 tab, 0 Refill(s) Hydrochlorothiazid 25 mg=1 tab, Active e 25 MG Oral PO, Daily, for 2013 [facility] Tablet edema, # 30 tab, 0 Refill(s) Simvastatin 40 mg, 2 tab, No Longer Route: PO, Active 2013 [facility] Drug form: TAB, Bedtime, Dosing Weight 92.045, kg, Start date: 02/08/14 21:00:00, Duration: 30 day, Stop date: 03/09/14 21:00:00Notes: (Same as: Zocor) Coreg 12.5 mg, 1 No Longer tab, Route: Active 2013 [facility] PO, Drug form: TAB, BID, Dosing Weight 92.045, kg, Start date: 02/08/14 11:00:00, Duration: 30 day, Stop date: 03/10/14 9:00:00Notes: Give with food. (Same As: Coreg) Hydrochlorothiazid 1 tab, PO, No Longer e 12.5 MG / Bedtime, 0 Active 2013 [facility] Lisinopril 20 MG Refill(s) Oral Tablet carvedilol 12.5 MG 12.5 mg=1 tab, No Longer Oral Tablet PO, BID, # 60 Active 2013 [facility] [Coreg] tab, 0 Refill(s) Metformin 500 mg, PO, No Longer Dinner, 0 Active 2013 [facility] Refill(s) Simvastatin 40 mg=1 tab, Active PO, Bedtime, # 2013 [place] 30 tab, 0 Refill(s) NS 1,000 mL 1,000 mL, No Longer Rate: 40 Active 2013 [facility] ml/hr, Infuse over: 25 hr, Route: IV, Dosing Weight 92.045 kg, Total Volume: 1,000, Start date: 02/07/14 22:24:00, Duration: 30 day, Stop date: 03/09/14 22:23:00 Morphine 2 mg, Route: Inactive IVP, ONCE, 2013 [facility] Dosing Weight 96.364, kg, Start date: 02/07/14 13:00:00, Stop date: 02/07/14 13:00:00 Acetaminophen 650 mg, 20.3 No Longer mL, Route: PO, Active 2013 [facility] Drug form: LIQ, Q4H, Dosing Weight 96.364, kg, PRN Pain 1-3/Temp > 100.4 F, Start date: 02/07/14 12:54:00, Duration: 30 day, Stop date: 03/09/14 12:53:00Notes: Max acetaminophen= 4000mg/day (4 gm/day). (Same as: Tylenol) Ondansetron 4 mg, 2 mL, No Longer Route: IVP, Active 2013 [facility] Drug form: INJ, Q8H, Dosing Weight 96.364, kg, PRN Nausea & Vomiting, Start date: 02/07/14 12:54:00, Duration: 30 day, Stop date: 03/09/14 12:53:00Notes: (Same as: Zofran) Docusate 100 mg, 1 cap, No Longer Route: PO, Active 2013 [facility] Drug form: CAP, BID, Dosing Weight 96.364, kg, PRN Constipation, Start date: 02/07/14 12:54:00, Duration: 30 day, Stop date: 03/09/14 12:53:00Notes: (Same as: Colace) (Do Not Crush) Omnipaque 240 50 mL, Route: Inactive PO, Dosing 2013 [facility] Weight 96.364, kg, ONCE, Start date: 02/07/14 9:41:00, Stop date: 02/07/14 9:41:00 Sodium Chloride 1,000 mL, 999 Inactive 0.154 MEQ/ML ml/hr, Infuse 2013 [facility] Injectable Over: 1 hr, Solution Route: IV, ONCE, Priority: STAT, Dosing Weight 96.364 kg, Start date: 02/07/14 9:27:00, Duration: 1 doses or times, Stop date: 02/07/14 9:27:00 Sodium Chloride 500 mL, 500 Inactive 0.154 MEQ/ML ml/hr, Infuse 2013 [facility] Injectable Over: 1 hr, Solution Route: IV, ONCE, Priority: STAT, Dosing Weight 96.364 kg, Start date: 02/07/14 7:37:00, Duration: 1 doses or times, Stop date: 02/07/14 7:37:00 Morphine 6 mg, Route: Inactive IVP, Drug 2013 [facility] form: INJ, ONCE, Dosing Weight 96.364, kg, Priority: STAT, Start date: 02/07/14 7:33:00, Stop date: 02/07/14 7:33:00 Zofran 8 mg, Route: Inactive IVP, Drug 2013 [facility] form: INJ, ONCE, Dosing Weight 96.364, kg, Priority: STAT, Start date: 02/07/14 7:33:00, Stop date: 02/07/14 7:33:00 Azithromycin 500 500 mg=1 tab, Active MG Oral Tablet PO, Daily, # 7 2013 [facility] [Zithromax] tab, 0 Refill(s) benzonatate 100 MG 100 mg=1 cap, Active Oral Capsule PO, TID, # 21 2013 [facility] [Tessalon Perles] cap, 0 Refill(s) carvedilol 12.5 mg 12.5 mg=1 tab, Active [place] 07/21/ oral tablet PO, Q12H, # 60 2012 [facility] tab, 0 Refill(s) Tessalon 200 mg 200 mg=1 cap, Active [place] 07/21/ oral capsule PO, TID, # 30 2012 [facility] cap, 0 Refill(s) albuterol 90 1 puff, Active [place] 07/21/ mcg/inh inhalation INHALATION, 2013 [facility] aerosol QID, wheezing, # 1 ea, 0 Refill(s) aspirin 81 mg 81 mg=1 tab, Active [place] tablet, enteric PO, Daily, # 2012 [facility] coated 30 tab, 0 Refill(s) cloNIDine 0.1 mg 0.1 mg=1 tab, Active [place] oral tablet PO, TID, 2012 [facility] Elevated BP | sbp >/=160, # 60 tab, 0 Refill(s) simvastatin 20 mg 40 mg=2 tab, Active [place] oral tablet PO, Bedtime, # 2012 [facility] 30 tab, 0 Refill(s) lisinopril 20 mg 20 mg=1 tab, Active [place] oral tablet PO, Q12H, HOLD 2012 IF SBP HOLD IF SBP furosemide 40 mg 40 mg=1 tab, Active [place] oral tablet PO, Daily, # 2012 [facility] 30 tab, 0 Refill(s) Levaquin 750 mg 750 mg=1 tab, Active Ajelabi oral tablet PO, Q24H, # 7 2012 [facility] tab, 0 Refill(s) Lasix 40 mg, 1 tab, Inactive Lydia Route: PO, 2012 [facility] Drug form: TAB, Daily, Dosing Weight 93.3, kg, Start date: 07/21/13 9:00:00, Duration: 30 day, Stop date: 08/19/13 9:00:00(Same as: Lasix) May cause GI upset. Give with food or milk. hydrALAZINE 10 mg, 0.5 mL, No Longer [place] Route: IVP, Active 2012 [facility] Drug form: INJ, Q6H, Dosing Weight 97.727, kg, PRN Hypertension, Start date: 07/20/13 14:02:00, Duration: 30 day, Stop date: 08/19/13 14:01:00, SBP>/=150 OR DBP>/=90(Same as: Apresoline) Push over 5 minutes aspirin 325 mg 325 mg, 1 tab, No Longer [place] tablet, enteric Route: PO, Active 2012 [facility] coated Drug form: ECTAB, Daily, Dosing Weight 93.3, kg, Start date: 07/20/13 9:00:00, Duration: 30 day, Stop date: 08/18/13 9:00:00(Do Not Crush) Do not crush or chew. Zocor 40 mg, 2 tab, No Longer [place] Route: PO, 2012 [facility] Drug form: TAB, Bedtime, Dosing Weight 93.3, kg, Start date: 07/19/13 21:00:00, Duration: 30 day, Stop date: 08/17/13 21:00:00(Same as: Zocor) lisinopril 20 mg, 1 tab, No Longer [place] Route: PO, 2012 [facility] Drug form: TAB, Q12H, Dosing Weight 97.727, kg, Priority: STAT, Start date: 07/19/13 20:50:00, Duration: 30 day, Stop date: 08/18/13 9:00:00(Same as: Prinivil, Zestril) magnesium sulfate 2 gm, 50 mL, No Longer Pameal Route: IVPB, 2012 [facility] Drug form: INJ, PRN, Dosing Weight 93.3, kg, PRN Abnormal Lab Result, Start date: 07/19/13 10:51:00, Duration: 30 day, Stop date: 08/18/13 10:50:00, FOR ICU USE ONLYFOR ICU USE ONLY potassium 45 mmol, 15 No Longer Pamela phosphate + Sodium mL, Route: 2012 [facility] Chloride 0.9% IV IVPB, Drug 250 mL form: INJ, PRN, Dosing Weight 93.3, kg, PRN Abnormal Lab Result, Start date: 07/19/13 10:51:00, Duration: 30 day, Stop date: 08/18/13 10:50:00, FOR ICU USE ONLYFOR ICU USE ONLY(Same as: K Phosphate.) 1 mMol phoshate has 1.47 mEq potassium Infuse over 4 hours calcium gluconate 1 gm, 50 mL, No Longer Pamela Route: IVPB, 2012 [facility] Drug form: INJ, PRN, Dosing Weight 93.3, kg, PRN Abnormal Lab Result, Start date: 07/19/13 10:51:00, Duration: 30 day, Stop date: 08/18/13 10:50:00, FOR ICU USE ONLYFOR ICU USE ONLY sodium 45 mmol, 45 No Longer Pamela glycerophosphate + mL, Route: Active 2012 [facility] Sodium Chloride IVPB, Drug 0.9% IV 250 mL form: INJ, PRN, Dosing Weight 93.3, kg, PRN Abnormal Lab Result, Start date: 07/19/13 10:51:00, Duration: 30 day, Stop date: 08/18/13 10:50:00, FOR ICU USE ONLYFOR ICU USE ONLY potassium chloride 20 mEq, 1 tab, No Longer Pamela Route: PO, 2012 [facility] Drug form: ERTAB, PRN, Dosing Weight 93.3, kg, PRN Abnormal Lab Result, Start date: 07/19/13 10:51:00, Duration: 30 day, Stop date: 08/18/13 10:50:00, FOR ICU USE ONLYFOR ICU USE ONLY(Same as: K-Dur 20) "Do Not Crush" With food and full glass of water Lasix 40 mg, 4 mL, No Longer Lydia Route: IVP, 2012 [facility] Drug form: INJ, Daily, Dosing Weight 97.727, kg, Priority: Routine, Start date: 07/19/13 9:00:00, Duration: 30 day, Stop date: 08/17/13 9:00:00(Same as: Lasix) folic acid 1 mg, 1 tab, No Longer [place] Route: PO, 2012 [facility] Drug form: TAB, Daily, Dosing Weight 97.727, kg, Start date: 07/19/13 9:00:00, Duration: 30 day, Stop date: 08/17/13 9:00:00(Same as: Folvite) multivitamin 1 tab, Route: No Longer [place] PO, Drug Form: 2012 [facility] TAB, Dosing Weight 97.727, kg, Daily, Start date: 07/19/13 9:00:00, Duration: 30 day, Stop date: 08/17/13 9:00:00 thiamine 100 mg, 1 tab, No Longer [place] Route: PO, 2012 [facility] Drug form: TAB, Daily, Dosing Weight 97.727, kg, Start date: 07/19/13 9:00:00, Duration: 30 day, Stop date: 08/17/13 9:00:00(Same As: Vitamin B1) influenza virus 0.5 mL, Route: Inactive [facility] vaccine, IM, Drug Form: 2012 inactivated SUSP, Daily, Start date: 07/19/13 9:00:00, Duration: 1 doses or times, Stop date: 07/19/13 9:00:00(Same as: Fluzone) multivitamin with 1 tab, Route: No Longer [place] minerals PO, Drug Form: Active 2012 [facility] TAB, Daily, Start date: 07/19/13 9:00:00, Duration: 30 day, Stop date: 08/17/13 9:00:00Give with food. (Same As: Stress 600 with Zinc) vancomycin 1.25 gm, 250 No Longer Ajelabi mL, Route: Active 2012 [facility] IVPB, Drug form: INJ, [id number], Start date: 07/19/13 6:00:00, Stop date: 08/18/13 2:00:00Same as: Vancocin-NS (premixed) [place]ulkner 10/325 oral 1 tab, Route: No Longer [place] tablet PO, Drug Form: Active 2012 [facility] TAB, Dosing Weight 97.727, kg, Q6H, Start date: 07/19/13 0:00:00, Duration: 30 day, Stop date: 08/17/13 18:00:00Do not exceed 4gm/day of acetaminophen. (Same as: Faulkner 325/10) albuterol-ipratrop 3 mL, Route: No Longer [place] ium 2.5-0.5 mg NEB, Drug Active 2012 [facility] inhalation Form: SOLN, solution Dosing Weight 97.727, kg, RQ4H, Start date: 07/18/13 23:00:00, Duration: 30 day, Stop date: 08/17/13 19:00:00(Same as: Duoneb) Tessalon Perles 200 mg, 2 cap, No Longer [place] Route: PO, Active 2012 [facility] Drug form: CAP, Q8H-06, Dosing Weight 97.727, kg, Start date: 07/18/13 22:00:00, Duration: 30 day, Stop date: 08/17/13 14:00:00(Same As: Tessalon Perles) "Do Not Crush" lisinopril 10 mg, 1 tab, No Longer [place] Route: PO, Active 2012 [facility] Drug form: TAB, Q12H, Dosing Weight 97.727, kg, Start date: 07/18/13 21:00:00, Duration: 30 day, Stop date: 08/17/13 9:00:00(Same as: Prinivil, Zestril) Coreg 12.5 mg, 1 No Longer [place] tab, Route: Active 2012 [facility] PO, Drug form: TAB, Q12H, Dosing Weight 97.727, kg, Start date: 07/18/13 21:00:00, Stop date: 08/17/13 9:00:00Give with food. (Same As: Coreg) Vancomycin 1 gm, Route: Inactive [facility] Dosing IV, Dosing 2012 [facility] Weight 97.727, kg, Q12H, Start date: 07/18/13 21:00:00, Duration: 30 day, Stop date: 08/17/13 9:00:00 Nicoderm C-Q 21 mg, 1 No Longer [place] patch, Route: Active 2012 [facility] TOP, Drug form: ERFILM, Daily, Dosing Weight 97.727, kg, Start date: 07/18/13 20:25:00, Duration: 30 day, Stop date: 08/17/13 9:00:00(Same as: Habitrol) "Remove old patch before application of new patch" Ativan 1 mg, 0.5 mL, No Longer [place] Route: IVP, Active 2012 [facility] Drug form: INJ, Q2H, Dosing Weight 97.727, kg, PRN Anxiety, Start date: 07/18/13 20:18:00, Duration: 30 day, Stop date: 08/17/13 20:17:00, SIGNS OF WITHDRAWAL, AGITATION, Anxiety(Same as: Ativan) clonidine 0.1 mg 0.1 mg, 1 tab, No Longer [place] oral tablet Route: PO, Active 2012 [facility] Drug form: TAB, TID, Dosing Weight 97.727, kg, PRN Elevated BP, Start date: 07/18/13 20:17:00, Duration: 30 day, Stop date: 08/17/13 20:16:00, sbp >/=180(Same As: Catapres) vancomycin 1.5 gm, 250 Inactive Ajela mL, Route: 2012 [facility] IVPB, Drug form: INJ, ONCE, Start date: 07/18/13 20:00:00, Stop date: 07/18/13 20:00:00Same as: Vancocin-NS (premixed) dextromethorphan-g 10 mL, Route: No Longer [place] uaifenesin 10 PO, Drug Form: Active 2012 [facility] mg-100 mg/5 mL LIQ, Dosing oral liquid Weight 97.727, kg, Q4H, PRN Cough, Start date: 07/18/13 19:28:00, Duration: 30 day, Stop date: 08/17/13 19:27:00(dextr omethorphan-gu aifenesin 10-100/5 ml LIQ) (Same as: Robitussin-DM) Colace 100 mg oral 100 mg, 1 cap, No Longer [place] capsule Route: PO, Active 2012 [facility] Drug form: CAP, BID, Dosing Weight 97.727, kg, PRN Constipation, Start date: 07/18/13 19:28:00, Duration: 30 day, Stop date: 08/17/13:27:00(Same as: Colace) (Do Not Crush) Gas-X Ultra 160 mg, 2 tab, No Longer [place] Softgels Route: PO, Active 2012 [facility] Drug form: CHEWTAB, Q4H, Dosing Weight 97.727, kg, PRN Gas, Start date: 07/18/13 19:28:00, Duration: 30 day, Stop date: 08/17/13 19:27:00(Same as: Mylicon) GI cocktail 30 ml, Route: No Longer [place] PO, Drug Form: Active 2012 [facility] SUSP, Dosing Weight 97.727, kg, Q4H, PRN GI Upset, Routine, Start date: 07/18/13 19:28:00, Duration: 30 day, Stop date: 08/17/13 19:27:00, DYSPEPSIAG.I. Cocktail=antac id with simethicone 22.5 mL - lidocaine viscous 7.5 mL morphine Sulfate 2 mg, 1 mL, No Longer [place] Route: IVP, Active 2012 [facility] Drug form: INJ, Q6H, Dosing Weight 97.727, kg, PRN as needed for pain, Start date: 07/18/13:28:00, Duration: 30 day, Stop date: 08/17/1327:00(Same as:MORPhine Sulfate) Tylenol 650 mg, Route: Inactive [place] PO, Drug form: 2012 [facility] TAB, Q6H, Dosing Weight 97.727, kg, PRN Pain, Start date: 07/18/13:28:00, Duration: 30 day, Stop date: 08/17/13:00 hydrALAZINE 10 mg, 0.5 mL, No Longer [place] Route: IVP, Active 2012 [facility] Drug form: INJ, Q6H, Dosing Weight 97.727, kg, PRN Elevated BP, Start date: 07/18/1328:00, Duration: 30 day, Stop date: 08/17/13:00, SBP>/=160 OR DBP>/=90(Same as: Apresoline) Push over 5 minutes lactulose 20 gm, 30 ml, No Longer [place] Route: PO, Active 2012 [facility] Drug Form: SYRP, Dosing Weight 97.727, kg, TID, PRN Constipation, Start date: 07/18/13:28:00, Duration: 30 day, Stop date: 08/17/13:00(Same as:Chronulac) Zofran 4 mg, 2 mL, No Longer [place] Route: IV, Active 2012 [facility] Drug form: INJ, Q4H, Dosing Weight 97.727, kg, PRN Nausea, Start date: 07/18/13:28:00, Duration: 30 day, Stop date: 08/17/1327:00(Same as: Zofran) acetaminophen 650 mg, 2 tab, No Longer [place] Route: PO, Active 2012 [facility] Drug form: TAB, Q4H, Dosing Weight 97.727, kg, PRN Pain Score 1-3, For fever > 100.4. Not to exceed 4 grams in 24 hours, Start date: 07/18/13 19:28:00, Duration: 30 day, Stop date: 08/17/13 19:27:00Do not exceed 4 gm/day. (Same as: Tylenol) tuberculin 5 unit, 0.1 Inactive [place] purified protein mL, Route: 2012 [facility] derivative 5 INTRADERM, tuberculin ONCE, Dosing units/0.1 mL Weight 97.727, intradermal kg, Start solution date: 07/18/13 19:22:00, Stop date: 07/18/13 19:22:00 levofloxacin 750 mg, 150 No Longer [facility] 07/19[facility] mL, Route: IV, Active 2012 [facility] Drug form: SOLN, [id number], Dosing Weight 97.727, kg, Start date: 07/18/13 18:00:00, Duration: 30 day, Stop date: 08/16/13 18:00:00(Same as:Levaquin) Lasix 40 mg, 4 mL, Inactive [facility] 07/18[facility] Route: IV, 2012 [facility] Drug form: INJ, ONCE, Dosing Weight 97.727, kg, Start date: 07/18/13 17:20:00, Stop date: 07/18/13 17:20:00(Same as: Lasix) tuberculin 5 unit, 0.1 Inactive [facility] 07/18[facility] purified protein mL, Route: 2012 [facility] derivative INTRADERM, Drug form: INJ, ONCE, Dosing Weight 97.727, kg, Start date: 07/18/13 17:17:00, Stop date: 07/18/13 17:17:00LOT#: [id number]: (Same As: Aplisol, Tubersol) Lasix 40 mg, Route: Inactive [place] [id number] IVP, Drug 2012 [facility] form: INJ, ONCE, Dosing Weight 97.727, kg, Priority: STAT, Start date: 07/18/13 17:12:00, Stop date: 07/18/13 17:12:00 hydrALAZINE 20 mg, 1 mL, Inactive [place] 07/18[facility] Route: IVP, 2012 [facility] Drug form: INJ, ONCE, Dosing Weight 97.727, kg, Priority: STAT, Start date: 07/18/13 14:40:00, Stop date: 07/18/13 14:40:00(Same as: Apresoline) Push over 5 minutes Tylenol 650 mg, Route: Inactive [facility] PO, Drug form: 2012 [facility] TAB, ONCE, Dosing Weight 97.727, kg, Priority: STAT, Start date: 07/18/13 14:12:00, Stop date: 07/18/13 14:12:00 ketorolac 30 mg, Route: Inactive [facility] 07/18[facility] IVP, Drug 2012 [facility] form: INJ, ONCE, Dosing Weight 97.727, kg, Priority: STAT, Start date: 07/18/13 14:12:00, Stop date: 07/18/13 14:12:00 albuterol-ipratrop 3 mL, Route: Inactive [facility] 07/18[facility] ium 2.5-0.5 mg NEB, Drug 2012 [facility] inhalation Form: SOLN, solution Dosing Weight 97.727, kg, ONCE, STAT, Start date: 07/18/13 13:00:00, Stop date: 07/18/13 13:00:00 Saline Flush 0.9% 5 mL, Route: No Longer [facility] IVP, Drug Active 2012 [facility] Form: INJ, Dosing Weight 97.727, kg, PRN, PRN Line Flush, Start date: 07/18/13 13:00:00, Duration: 1 doses or times, Stop date: Limited # of times(Same as: BD Posiflush)
--- OUTSIDE RECORDS SUMMARY | 2018-10-18 16:36 | XMS REPORT | CCD ---
:1965 Author Organization [facility] Care Team Providers Name Role Phone [...] day, Stop date: 08/17/13 19:27:00(Same as:MORPhine Sulfate) Froid 10/325 oral tablet 1 tab, Route: PO, 07/19/2013 07/21/2013 Discontinued Drug Form: TAB, Dosing Weight 97.727, kg, Q6H, Start date: 07/19/13 0:00:00, Duration: 30 day, Stop date: 08/17/13 18:00:00Do not exceed 4gm/day of acetaminophen. (Same as: Froid 325/10) albuterol-ipratropium 3 mL, Route: NEB, 07/18/2013 [...] 07/21/2013 Discontinued Route: IVPB, Drug form: INJ, [id number], Start date: 07/19/13 6:00:00, Stop date: 08/18/13 [...] 07/21/2013 Discontinued Route: IV, Drug form: SOLN, [id number], Dosing Weight 97.727, kg, Start date: 07/18/13 [...] values reflect the clinical guidelines of the [place] [employer].9Interpretive Data: Adult reference range values reflect the clinical guidelines of the [place] [employer].10Interpretive Data: Adult reference range values reflect the clinical guidelines of the [place] [employer].11Interpretive Data: Elevated results are in [...] IU/mL. For additional information, please refer to http://education.[employer]/faq/QFT (This link is being provided for informational/ educational purposes only.) Test Performed at: [facility] [address] [id number] BENJIE BAUTISTA M.D. Microbiology Reports PROCEDURE:Culture: AFB [...]
--- NOTE | 2018-10-18 17:28 | RAD REPORT ---
EXAM DESCRIPTION: Marcie Single View10/18/2018 5:12 pm CLINICAL HISTORY: Shortness of breath COMPARISON: none FINDINGS: The lungs appear clear of acute infiltrate. The heart is mildly enlarged IMPRESSION: No acute abnormalities displayed
[2018-10-18] MEDS ORDERED: ACETAMINOPHEN 500 MG TAB ONE (17:47)
[2018-10-18] MEDS ORDERED: NA CHLORIDE 0.9% 1,000 ML ONE (17:47)
[2018-10-18 17:54] LABS: Absolute Lymphocytes (CBC) 0.6 K/uL (0.7-4.9); Absolute Monocytes 1.1 K/uL (0.1-1.3); Absolute Neutrophil 18.4 K/uL (1.8-8.0); Basophils % 0.2 % (0-1.3); Eosinophils % 0.2 % (0-4.4); Hematocrit 38.3 % (39.6-49.0); Lymphocytes % 3.1 % (15.3-44.8); MPV 8.8 fL (7.6-11.3); Monocytes % 5.3 % (3.3-12.3); RBC Red Blood Cell Count 4.61 M/uL (4.33-5.43)
--- NOTE | 2018-10-18 17:56 | ER ---
Nurse's Notes [facility] Name: Shawna Mccall Age: 52 yrs Sex: Male : 1965 Arrival Date: 10/18/2018 Time: 16:00 Bed 8 Private MD: out of town, doctor Diagnosis: Fever, unspecified;Dyspnea;Chest pain, unspecified;Pneumonia due to other specified bacteria;Elevated white blood cell count Presentation: 10/18 16:08 Presenting complaint: Patient states: SOB with exertion x 4 days, sent by urgent care sv after he went over there to get med refill stated his "heart was going fast." Has been out of meds x 2 wks. Transition of care: patient was not received from another setting of care. Onset of symptoms was October 14, 2018. Care prior to arrival: None. 16:08 Method Of Arrival: Ambulatory sv 16:08 Acuity: INGRID 3 sv 17:03 Risk Assessment: Do you want to hurt yourself or someone else? Patient reports no ph desire to harm self or others. Initial Sepsis Screen: Does the patient meet any 2 criteria? No. Patient's initial sepsis screen is negative. 17:03 Initial Sepsis Screen: Does the patient have a suspected source of infection? Yes: ph Productive cough/pneumonia. Triage Assessment: 16:08 General: Appears in no apparent distress. uncomfortable, Behavior is calm, cooperative, sv appropriate for age. Pain: Denies pain. Neuro: Level of Consciousness is awake, alert, obeys commands, Oriented to person, place, time, situation, Moves all extremities. Gait is steady. Respiratory: Reports shortness of breath on exertion the patient has mild shortness of breath. Derm: Skin is pink, warm \\T\\ dry. 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 Historical: - Allergies: 16:11 No Known Allergies; sv - Home Meds: 16:11 aspirin 81 mg Oral chew 1 tab once daily [Active]; atorvastatin 80 mg Oral tab 1 tab sv once daily [Active]; carvedilol 25 mg Oral tab 1 tab 2 times per day [Active]; losartan oral oral [Active]; gabapentin 300 mg Oral cap 1 cap 3 times per day for Neuropathic Pain [Active]; Keppra 750 mg Oral tab 1 tab 2 times per day for ETOH withdrawal seizure [Active]; Nifedipine ER Oral 60 mg daily [Active]; Plavix 75 mg Oral tab 1 tab once daily [Active]; trazodone 100 mg Oral tab 1 tab 2 times per day [Active]; - PMHx: 16:11 CHF; CVA; Hypertension; Migraines; Seizures; sv - PSHx: 16:11 None; sv - Immunization history:: Adult Immunizations unknown. - Social history:: Smoking status: unknown. - Ebola Screening: : No symptoms or risks identified at this time. - Family history:: not pertinent. Screenin:03 Abuse screen: Denies threats or abuse. Denies injuries from another. Nutritional ph screening: No deficits noted. Tuberculosis screening: No symptoms or risk factors identified. Fall Risk None identified. Assessment: 16:19 Reassessment: Pt requesting, "something to snack on". Educated patient on need to wait ss until provider seems him to determine plan of care Pillow given for comfort. 16:45 General: Appears in no apparent distress. comfortable, well groomed, Behavior is calm, ph cooperative, appropriate for age, Reports chills for fever for 2-3 days. Pain: Complains of pain in anterior aspect of left upper chest and left breast Pain does not radiate. Quality of pain is described as sharp. Neuro: Level of Consciousness is awake, alert, obeys commands, Oriented to person, place, time, situation, Reports headache. Cardiovascular: Reports chest pain, shortness of breath, Denies nausea, vomiting, Capillary refill < 3 seconds in bilateral fingers Patient's skin is warm and dry. Rhythm is sinus tachycardia Chest pain quality is sharp, is located in left anterior chest wall episodes are intermittent is aggravated by breathing. Respiratory: Reports shortness of breath at rest cough that is Airway is patent Respiratory effort is even, unlabored, Respiratory pattern is regular, symmetrical. GI: Patient currently denies abdominal pain, diarrhea, nausea, vomiting. Derm: Skin is intact, is healthy with good turgor, Skin is pink, warm \\T\\ dry. Musculoskeletal: Circulation, motion, and sensation intact. Range of motion: intact in all extremities, Reports pain in back. 18:00 Reassessment: Patient appears in no apparent distress at this time. Patient and/or ph family updated on plan of care and expected duration. Pain level reassessed. Patient is alert, oriented x 3, equal unlabored respirations, skin warm/dry/pink. Pt resting quietly, awaiting lab results, SO at bedside. 19:54 General: Appears in no apparent distress. comfortable, pt eating chips and sandwich . ak1 Behavior is cooperative. 20:36 Respiratory: ak1 Vital Signs: 16:11 BP 122 / 74; Pulse 114; Resp 20; Temp 102.2; Pulse Ox 97% ; Weight 109.77 kg; Height 5 sv ft. 5 in. (165.10 cm); 17:43 BP 111 / 73; Pulse 102; Resp 20; Temp 99.3(O); Pulse Ox 99% on R/A; Pain 7/10; em1 19:01 BP 133 / 110; Pulse 99; Resp 20; Pulse Ox 97% on R/A; ph 19:57 BP 108 / 75; Pulse 100; Resp 22; Temp 99.4(O); Pulse Ox 100% on R/A; Pain 0/10; ak1 16:11 Body Mass Index 40.27 (109.77 kg, 165.10 cm) sv ED Course: 16:00 Patient arrived in ED. mr 16:01 out of town, doctor is Private Physician. mr 16:09 Triage completed. sv 16:11 Arm band placed on. sv 16:29 EKG done, by pathology laboratory technologist. reviewed by Jose Villalpando MD. sm3 16:30 Jose Villalpando MD is Attending Physician. rian 16:36 Flu and/or RSV swab sent to lab. em1 17:01 Nicole Jones, RN is Primary Nurse. ph 17:04 Patient has correct armband on for positive identification. Placed in gown. Bed in low ph position. Call light in reach. Side rails up X2. burlap roll coverer on. Pulse ox on. NIBP on. 17:09 X-ray completed. Portable x-ray completed in exam room. Patient tolerated procedure ml well. 17:10 Chest Single View XRAY In Process Unspecified. EDMS 17:15 Initial lab(s) drawn, by me, sent to lab. First set of blood cultures drawn. Inserted em1 saline lock: 20 gauge in left antecubital area, using aseptic technique. Blood collected. 17:55 Jennifer Salas MD is Hospitalizing Provider. rian 18:21 No provider procedures requiring assistance completed. Patient admitted, IV remains in ph place. Administered Medications: Discontinued: NS 0.9% (30 ml/kg) 30 ml/kg IV at bolus once; Sepsis Protocol 15:50 Drug: NS 0.9% 1000 ml Route: IV; Rate: 125 ml/hr; Site: left antecubital; ph 19:04 Follow up: Response: No adverse reaction; IV Status: Infusion continued upon admission ph 20:24 Follow up: IV Status: Completed infusion; IV Intake: 1000ml ak1 17:54 Drug: Acetaminophen 1000 mg Route: PO; ph 19:02 Follow up: Response: No adverse reaction; Temperature is decreased ph 17:54 Drug: NS 0.9% (30 ml/kg) 30 ml/kg Route: IV; Rate: bolus; Site: left antecubital; ph 18:16 Follow up: Response: No adverse reaction; IV Status: Order to discontinue infusion; IV ph Intake: 250ml 19:04 Follow up: Response: No adverse reaction; IV Status: Completed infusion ph 19:01 Drug: Rocephin - (cefTRIAXone) 1 grams Route: IVPB; Infused Over: 30 mins; Site: left ph antecubital; 19:02 Follow up: Response: No adverse reaction; IV Status: Completed infusion ph 19:01 Drug: Coreg 12.5 mg Route: PO; ph 19:03 Follow up: Response: No adverse reaction ph 19:04 Follow up: Response: No adverse reaction ph 19:02 Drug: Aspirin 81 mg Route: PO; ph 19:03 Follow up: Response: No adverse reaction ph 19:02 Drug: Lovenox 100 mg Route: Sub-Q; Site: right lower abdomen; ph 19:03 Follow up: Response: No adverse reaction ph 19:13 Drug: Zithromax 500 mg Route: IVPB; Infused Over: 1 hrs; Site: left antecubital; ak1 20:24 Follow up: IV Status: Completed infusion; IV Intake: 250ml ak1 19:19 Drug: Tamiflu 75 mg Route: PO; ph 19:58 Follow up: Response: No adverse reaction ak1 Intake: 18:16 IV: 250ml; Total: 250ml. ph 20:24 IV: 1000ml; Total: 1250ml. ak1 20:24 IV: 250ml; Total: 1500ml. ak1 Outcome: 17:55 Decision to Hospitalize by Provider. rian 20:[address] [facility]/surg accompanied by tech, via stretcher, room 218, with chart, Report ak1 called to Catarino GARCIA 20:36 Condition: good 20:36 Instructed on the need for admit. 21:16 Patient left the ED. ak1 Signatures: Dispatcher [employer] EDMS Edith Garcia, JOSE RN Jose Shaikh MD MD cha Rivera, Shandra mr Zion, Ellie Mcgregor, Jaskaran em1 Merlyn Lugo RN RN Brittanie Lowry RN RN ak1 Nicole Jones RN RN Romina Laguna [facility]
--- NOTE | 2018-10-18 17:56 | EDPHYS ---
Physician Documentation [facility] Name: Shawna Mccall Age: 52 yrs Sex: Male : 1965 Arrival Date: 10/18/2018 Time: 16:00 Bed 8 Private MD: out of town, doctor ED Physician Jose Villalpadno HPI: 10/18 17:52 This 52 yrs old Black Male presents to ER via Ambulatory with complaints of Breathing rian Difficulty. 17:52 The patient has shortness of breath at rest, with light activity. Onset: The rian symptoms/episode began/occurred 3 day(s) ago. Duration: The symptoms are continuous, and are steadily getting worse. The patient's shortness of breath has no apparent modifying factors. Associated signs and symptoms: The patient has no apparent associated signs or symptoms. Severity of symptoms: At their worst the symptoms were mild moderate. The patient has not experienced similar symptoms in the past. Historical: - Allergies: 16:11 No Known Allergies; sv - Home Meds: 16:11 aspirin 81 mg Oral chew 1 tab once daily [Active]; atorvastatin 80 mg Oral tab 1 tab sv once daily [Active]; carvedilol 25 mg Oral tab 1 tab 2 times per day [Active]; losartan oral oral [Active]; gabapentin 300 mg Oral cap 1 cap 3 times per day for Neuropathic Pain [Active]; Keppra 750 mg Oral tab 1 tab 2 times per day for ETOH withdrawal seizure [Active]; Nifedipine ER Oral 60 mg daily [Active]; Plavix 75 mg Oral tab 1 tab once daily [Active]; trazodone 100 mg Oral tab 1 tab 2 times per day [Active]; - PMHx: 16:11 CHF; CVA; Hypertension; Migraines; Seizures; sv - PSHx: 16:11 None; sv - Immunization history:: Adult Immunizations unknown. - Social history:: Smoking status: unknown. - Ebola Screening: : No symptoms or risks identified at this time. - Family history:: not pertinent. ROS: 17:52 Eyes: Negative for injury, pain, redness, and discharge, ENT: Negative for injury, rian pain, and discharge, Neck: Negative for injury, pain, and swelling, Abdomen/GI: Negative for abdominal pain, nausea, vomiting, diarrhea, and constipation, Back: Negative for injury and pain, : Negative for injury, bleeding, discharge, and swelling, MS/Extremity: Negative for injury and deformity, Skin: Negative for injury, rash, and discoloration, Neuro: Negative for headache, weakness, numbness, tingling, and seizure, Psych: Negative for depression, anxiety, suicide ideation, homicidal ideation, and hallucinations, Allergy/Immunology: Negative for hives, rash, and allergies, Endocrine: Negative for neck swelling, polydipsia, polyuria, polyphagia, and marked weight changes, Hematologic/Lymphatic: Negative for swollen nodes, abnormal bleeding, and unusual bruising. 17:52 Constitutional: Positive for body aches, fever. 17:52 Cardiovascular: Positive for chest pain, palpitations. 17:52 Respiratory: Positive for cough, shortness of breath, at rest. Exam: 17:52 Head/Face: Normocephalic, atraumatic. Eyes: Pupils equal round and reactive to light, rian extra-ocular motions intact. Lids and lashes normal. Conjunctiva and sclera are non-icteric and not injected. Cornea within normal limits. Periorbital areas with no swelling, redness, or edema. ENT: Nares patent. No nasal discharge, no septal abnormalities noted. Tympanic membranes are normal and external auditory canals are clear. Oropharynx with no redness, swelling, or masses, exudates, or evidence of obstruction, uvula midline. Mucous membranes moist. Neck: Trachea midline, no thyromegaly or masses palpated, and no cervical lymphadenopathy. Supple, full range of motion without nuchal rigidity, or vertebral point tenderness. No Meningismus. Chest/axilla: Normal chest wall appearance and motion. Nontender with no deformity. No lesions are appreciated. Respiratory: Lungs have equal breath sounds bilaterally, clear to auscultation and percussion. No rales, rhonchi or wheezes noted. No increased work of breathing, no retractions or nasal flaring. Abdomen/GI: Soft, non-tender, with normal bowel sounds. No distension or tympany. No guarding or rebound. No evidence of tenderness throughout. Back: No spinal tenderness. No costovertebral tenderness. Full range of motion. Skin: Warm, dry with normal turgor. Normal color with no rashes, no lesions, and no evidence of cellulitis. MS/ Extremity: Pulses equal, no cyanosis. Neurovascular intact. Full, normal range of motion. Neuro: Awake and alert, GCS 15, oriented to person, place, time, and situation. Cranial nerves II-XII grossly intact. Motor strength 5/5 in all extremities. Sensory grossly intact. Cerebellar exam normal. Normal gait. Psych: Awake, alert, with orientation to person, place and time. Behavior, mood, and affect are within normal limits. 17:52 Constitutional: The patient appears febrile. 17:52 Cardiovascular: Rate: tachycardic, Rhythm: regular, Pulses: Pulses are 4+ in bilateral radial, brachial, femoral, popliteal, posterior tibial and and dorsalis pedis arteries.. Heart sounds: normal, Edema: is not appreciated, JVD: is not appreciated. 17:52 Respiratory: the patient does not display signs of respiratory distress, Respirations: normal, Breath sounds: rhonchi, that are mild, are located in both bases. 17:52 Abdomen/GI: Exam negative for Vital Signs: 16:11 BP 122 / 74; Pulse 114; Resp 20; Temp 102.2; Pulse Ox 97% ; Weight 109.77 kg; Height 5 sv ft. 5 in. (165.10 cm); 17:43 BP 111 / 73; Pulse 102; Resp 20; Temp 99.3(O); Pulse Ox 99% on R/A; Pain 7/10; em1 19:01 BP 133 / 110; Pulse 99; Resp 20; Pulse Ox 97% on R/A; ph 19:57 BP 108 / 75; Pulse 100; Resp 22; Temp 99.4(O); Pulse Ox 100% on R/A; Pain 0/10; ak1 16:11 Body Mass Index 40.27 (109.77 kg, 165.10 cm) sv MDM: 16:30 Patient medically screened. [facility] 17:52 Data reviewed: vital signs, nurses notes, lab test result(s), EKG, radiologic studies, [facility] plain films. 10/18 16:28 Order name: Flu; Complete Time: 17:50 10/18 16:40 Order name: Basic Metabolic Panel [facility] 10/18 16:40 Order name: Blood Culture Adult (2) [facility] 10/18 16:40 Order name: CBC with Diff [facility] 10/18 16:40 Order name: Ckmb; Complete Time: 18:51 [facility] 10/18 16:40 Order name: CPK; Complete Time: 18:51 [facility] 10/18 16:40 Order name: Lactate; Complete Time: 18:51 [facility] 10/18 16:40 Order name: LFT's; Complete Time: 18:51 [facility] 10/18 16:40 Order name: Lipase; Complete Time: 18:51 [facility] 10/18 16:40 Order name: Procalcitonin; Complete Time: 18:51 [facility] 10/18 16:40 Order name: Protime (+inr); Complete Time: 18:51 [facility] 10/18 16:40 Order name: Ptt, Activated; Complete Time: 18:51 [facility] 10/18 16:40 Order name: Troponin (emerg Dept Use Only); Complete Time: 18:51 [facility] 10/18 16:40 Order name: Urine Microscopic Only [facility] 10/18 16:33 Order name: EKG; Complete Time: 16:33 10/18 16:40 Order name: Chest Single View XRAY; Complete Time: 17:50 [facility] 10/18 16:40 Order name: Basic Metabolic Panel; Complete Time: 18:51 [facility] 10/18 16:40 Order name: Blood Culture [facility] 10/18 19:10 Order name: Urine Dipstick--Ancillary (enter results) [facility] 10/18 19:17 Order name: Urine Dipstick-Ancillary [facility] 10/18 19:37 Order name: Manual Differential [facility] 10/18 16:33 Order name: EKG - Nurse/Tech; Complete Time: 17:33 10/18 16:40 Order name: Accucheck; Complete Time: 18:23 [facility] 10/18 16:40 Order name: Cardiac monitoring; Complete Time: 17:42 [facility] 10/18 16:40 Order name: IV Saline Lock - Large Bore; Complete Time: 17:33 [facility] 10/18 16:40 Order name: Labs collected and sent; Complete Time: 17:33 [facility] 10/18 16:40 Order name: O2 Per Protocol; Complete Time: 17:42 [facility] 10/18 16:40 Order name: O2 Sat Monitoring; Complete Time: 17:42 [facility] 10/18 16:40 Order name: Urine Dipstick-Ancillary (obtain specimen); Complete Time: 18:17 rian Administered Medications: Discontinued: NS 0.9% (30 ml/kg) 30 ml/kg IV at bolus once; Sepsis Protocol 15:50 Drug: NS 0.9% 1000 ml Route: IV; Rate: 125 ml/hr; Site: left antecubital; ph 19:04 Follow up: Response: No adverse reaction; IV Status: Infusion continued upon admission ph 20:24 Follow up: IV Status: Completed infusion; IV Intake: 1000ml ak1 17:54 Drug: Acetaminophen 1000 mg Route: PO; ph 19:02 Follow up: Response: No adverse reaction; Temperature is decreased ph 17:54 Drug: NS 0.9% (30 ml/kg) 30 ml/kg Route: IV; Rate: bolus; Site: left antecubital; ph 18:16 Follow up: Response: No adverse reaction; IV Status: Order to discontinue infusion; IV ph Intake: 250ml 19:04 Follow up: Response: No adverse reaction; IV Status: Completed infusion ph 19:01 Drug: Rocephin - (cefTRIAXone) 1 grams Route: IVPB; Infused Over: 30 mins; Site: left ph antecubital; 19:02 Follow up: Response: No adverse reaction; IV Status: Completed infusion ph 19:01 Drug: Coreg 12.5 mg Route: PO; ph 19:03 Follow up: Response: No adverse reaction ph 19:04 Follow up: Response: No adverse reaction ph 19:02 Drug: Aspirin 81 mg Route: PO; ph 19:03 Follow up: Response: No adverse reaction ph 19:02 Drug: Lovenox 100 mg Route: Sub-Q; Site: right lower abdomen; ph 19:03 Follow up: Response: No adverse reaction ph 19:13 Drug: Zithromax 500 mg Route: IVPB; Infused Over: 1 hrs; Site: left antecubital; ak1 20:24 Follow up: IV Status: Completed infusion; IV Intake: 250ml ak1 19:19 Drug: Tamiflu 75 mg Route: PO; ph 19:58 Follow up: Response: No adverse reaction ak1 Disposition: 10/18/18 17:55 Hospitalization ordered by Jennifer Salas for Inpatient Admission. Preliminary diagnosis are Fever, unspecified, Dyspnea, Chest pain, unspecified, Pneumonia due to other specified bacteria, Elevated white blood cell count. - Bed requested for Telemetry/MedSurg (Inpatient). - Status is Inpatient Admission. ak1 - Condition is Fair. - Problem is new. - Symptoms have improved. UTI on Admission? No Signatures: Dispatcher [employer] EDMS Edith Garcia RN JOSE Mitzy Terry RN RN Jose Villalpando MD MD cha Krenek, Amber, RN RN ak1 Nicole Jones RN RN ph Corrections: (The following items were deleted from the chart) 17:58 17:55 Hospitalization Ordered by Jennifer Salas MD for Observation. Preliminary diagnosis rian is Fever, unspecified; Dyspnea; Chest pain, unspecified. Bed requested for Telemetry/MedSurg (observation). Status is Observation. Condition is Fair. Problem is new. Symptoms have improved. UTI on Admission? No. [facility] 17:59 17:58 10/18/2018 17:55 Hospitalization Ordered by Jennifer Salas MD for Inpatient rian Admission. Preliminary diagnosis is Fever, unspecified; Dyspnea; Chest pain, unspecified; Pneumonia due to other specified bacteria. Bed requested for Telemetry/MedSurg (Inpatient). Status is Inpatient Admission. Condition is Fair. Problem is new. Symptoms have improved. UTI on Admission? No. [facility] 20:30 17:59 10/18/2018 17:55 Hospitalization Ordered by Jennifer Salas MD for Inpatient Admission. Preliminary diagnosis is Fever, unspecified; Dyspnea; Chest pain, unspecified; Pneumonia due to other specified bacteria; Elevated white blood cell count. Bed requested for Telemetry/MedSurg (Inpatient). Status is Inpatient Admission. Condition is Fair. Problem is new. Symptoms have improved. UTI on Admission? No. [facility] 21:16 20:30 10/18/2018 17:55 Hospitalization Ordered by Jennifer Salas MD for Inpatient ak1 Admission. Preliminary diagnosis is Fever, unspecified; Dyspnea; Chest pain, unspecified; Pneumonia due to other specified bacteria; Elevated white blood cell count. Bed requested for Telemetry/MedSurg (Inpatient). Status is Inpatient Admission. Condition is Fair. Problem is new. Symptoms have improved. UTI on Admission? No.
[2018-10-18 18:10] LABS: ALT/SGPT 16 U/L (12-78); AST/SGOT 12 U/L (15-37); Albumin 4.2 g/dL (3.4-5.0); Alkaline Phosphatase 72 U/L (45-117); BUN Blood Urea Nitrogen 13 mg/dL (7-18); Bicarbonate 27 mmol/L (21-32); Bilirubin Direct 0.2 mg/dL (0-0.2); Bilirubin Total 0.7 mg/dL (0.2-1.0); CKMB Creatine Kinase MB 1.4 ng/mL (0.3-3.6); Creatine Phosphokinase 325 U/L (39-308); Glucose Level 100 mg/dL (74-106); Lipase 35 U/L (73-393); Potassium 3.8 mmol/L (3.5-5.1); Protein, Total 7.6 g/dL (6.4-8.2); Sodium Level 138 mmol/L (136-145); Troponin (Emerg Dept Use Only) < 0.02 ng/mL (0.0-0.045)
[2018-10-18 18:22] LABS: Protime INR 1.06
[2018-10-18] MEDS ORDERED: ENOXAPARIN 100 MG/ML SYR SQ ONE (18:53)
[2018-10-18] MEDS ORDERED: ASPIRIN 81 MG CHEWABLE TABLET ONE (18:53)
[2018-10-18] MEDS ORDERED: CEFTRIAXONE/SWI 1gm 1 GM/10 ML SYR ONE (18:53)
[2018-10-18] MEDS ORDERED: CARVEDILOL 6.25 MG TAB ONE (18:53)
[2018-10-18] MEDS ORDERED: AZITHROMYCIN IV 500 MG in NA CHLORIDE 0.9% 250 ML IVPB ONE (19:00)
[2018-10-18 19:16] LABS: Urine Blood NEGATIVE (NEG); Urine Glucose NEGATIVE (NEG); Urine Protein NEGATIVE (NEG); Urine pH 5.5 (5.0-7.0)
[2018-10-18] MEDS ORDERED: OSELTAMIVIR 75 MG CAP ONE (19:20)
[2018-10-18 19:29] LABS: Urine Bacteria <20 /HPF (NONE SEEN); Urine RBC <5 /HPF (NONE SEEN)
[2018-10-18 19:30] LABS: Urine Culture Reflex Order REFLEXED
[2018-10-18 19:37] LABS: Blood Morphology Comment NOT SEEN (NOT SEEN); Platelet Estimate ADEQ
[2018-10-18] MEDS ORDERED: ONDANSETRON 4 MG/2 ML VIAL IV PRN (21:14)
[2018-10-18] MEDS ORDERED: CEFTRIAXONE 1 GM/NS 50 ML 1 GM/50 ML BAG IV SCH (21:14)
[2018-10-18] MEDS: ACETAMINOPHEN 500 MG TAB PO PRN (23:01)
--- NOTE | 2018-10-19 02:33 | P.HP ---
Certification for Inpatient Patient admitted to: Inpatient With expected LOS: >2 Midnights Practitioner: I am a practitioner with admitting privileges, knowledge of patient current condition, hospital course, and medical plan of care. Services: Services provided to patient in accordance with Admission requirements found in Title 42 Section 412.3 of the Code of Federal Regulations Patient History Date of Service: 10/18/18 Reason for admission: acute bronchitis vs early pneumonia History of Present Illness: Mr Mccall is a 52 years old male with history of alcohol abuse, chronic systolic CHF, tobacco abuse, obese, HTN, DM II, who start with progressive weakness, SOB and cough about 4 days ago. This morning he was running fever. He denied chest pain. At arrival to ED, he was febrile, 102.2F, O2 sat was 97% on RA, he was tachycardic. CXR showed no acute infiltrate. LAb work remarkable for leukocytosis 20.0 K with 3% bands. Lactate was normal but procalcitonin elevated. At my encounter the patient was in non-distress, ambulating on the benitez. Allergies No Known Allergies Allergy (Verified 10/18/18 23:02) Home medications list reviewed: Yes - Past Medical/Surgical History Has patient received pneumonia vaccine in the past: No Diabetic: Yes -: Alcohol abuse -: CHF -: HTN -: CVA -: Neuropathy -: Hyperlipidemia -: Seizures -: DM -: Left hand sx - Family History Mother -: Heart disease Father -: Diabetes - Social History Smoking Status: Current every day smoker Alcohol use: Yes CD- Drugs: No Caffeine use: Yes Place of Residence: Home Review of Systems 10-point ROS is otherwise unremarkable Physical Examination - Vital Signs Temperature: 99.1 F Blood Pressure: 132/78 Pulse: 95 Respirations: 16 Pulse Ox (%): 93 - Physical Exam General: Alert, In no apparent distress HEENT: Atraumatic, PERRLA, Mucous membr. moist/pink, EOMI, Sclerae nonicteric Neck: Supple, 2+ carotid pulse no bruit, No LAD, Without JVD or thyroid abnormality Respiratory: Diminished, Crackles/rales (scattered crackle on left base.) Cardiovascular: Regular rate/rhythm, Normal S1 S2 Gastrointestinal: Normal bowel sounds, No tenderness Musculoskeletal: No tenderness Integumentary: No rashes Neurological: Normal gait, Normal speech, Normal strength at 5/5 x4 extr, Normal tone, Normal affect Lymphatics: No axilla or inguinal lymphadenopathy - Studies Laboratory Data (last 24 hrs) 10/18/18 17:15: PT 12.5, INR 1.06, APTT 31.9 10/18/18 17:15: WBC 20.2 H*, Hgb 12.5 L, Hct 38.3 L, Plt Count 236 10/18/18 17:15: Sodium 138, Potassium 3.8, BUN 13, Creatinine 1.01, Glucose 100 , Total Bilirubin 0.7, AST 12 L, ALT 16, Alkaline Phosphatase 72, Lipase 35 L Microbiology Data (last 24 hrs): 10/18/18 16:31 Nasopharnyx Influenza Type A Antigen Screen - Final 10/18/18 16:31 Nasopharnyx Influenza Type B Antigen Screen - Final Assessment and Plan - Problems (Diagnosis) (1) Sepsis Current Visit: Yes Status: Acute Qualifiers: Sepsis type: sepsis due to unspecified organism Qualified Code(s): A41.9 - Sepsis, unspecified organism (2) Acute bronchitis Current Visit: Yes Status: Acute Qualifiers: Bronchitis organism: unspecified organism Qualified Code(s): J20.9 - Acute bronchitis, unspecified (3) Alcohol abuse Onset Date: 09/09/17 Current Visit: No Status: Acute (4) HTN (hypertension) Current Visit: No Status: Acute Qualifiers: Hypertension type: essential hypertension Qualified Code(s): I10 - Essential (primary) hypertension (5) Tobacco abuse Onset Date: 09/09/17 Current Visit: No Status: Acute - Plan The patient was admitted due to sepsis, possible source acute bronchitis vs early pneumonia. Influenza screening negative. Will continue empiric treatment with IV Rocephin and Azithromycin. UA mildly abnormal, Urine culture in process as well as blood culture. - Advance Directives Does patient have a Living Will: No Does patient have a Durable POA for Healthcare: No - Code Status/Comfort Care Code Status Assessed: Yes Code Status: Full Code
[2018-10-19] MEDS: TRAMADOL HCL 50 MG TAB PO PRN ×2 (04:17→12:55)
[2018-10-19 05:30] LABS: Absolute Lymphocytes (CBC) 1.2 K/uL (0.7-4.9); Absolute Monocytes 1.5 K/uL (0.1-1.3); Absolute Neutrophil 18.7 K/uL (1.8-8.0); Basophils % 0.3 % (0-1.3); Eosinophils % 0.5 % (0-4.4); Hematocrit 35.1 % (39.6-49.0); Lymphocytes % 5.5 % (15.3-44.8); MPV 8.7 fL (7.6-11.3)
[2018-10-19 05:50] LABS: ALT/SGPT 14 U/L (12-78); AST/SGOT 9 U/L (15-37); Albumin 3.6 g/dL (3.4-5.0); Alkaline Phosphatase 69 U/L (45-117); BUN Blood Urea Nitrogen 14 mg/dL (7-18); Bicarbonate 28 mmol/L (21-32); Bilirubin Total 0.4 mg/dL (0.2-1.0); Glucose Level 98 mg/dL (74-106); Potassium 3.9 mmol/L (3.5-5.1); Protein, Total 6.9 g/dL (6.4-8.2); Sodium Level 142 mmol/L (136-145)
--- NOTE | 2018-10-19 07:45 | EKG ---
Test Date: 2018-10-18 Test Time: 16:23:09 Director Sales: SURAJ MEASUREMENT RESULTS: Intervals: Rate: 111 AK: 160 QRSD: 86 QT: 344 QTc: 467 [place]: P: 47 AK: 160 QRS: 0 T: 31 INTERPRETIVE STATEMENTS: Sinus tachycardia Minimal voltage criteria for LVH, may be normal variant Borderline ECG Compared to ECG 09/08/2017 21:28:17 Left ventricular hypertrophy now present Sinus rhythm no longer present Electronically Signed On 10-19-18 07:44:21 CDT by John Vincent
[2018-10-19] MEDS ORDERED: PNEUMOCOCCAL VACCINE 0.5 ML IMVAC ONE (09:00)
[2018-10-19] MEDS ORDERED: AZITHROMYCIN IV 500 MG in NA CHLORIDE 0.9% 250 ML IVPB SCH (09:00)
[2018-10-19] MEDS ORDERED: NICOTINE 21 MG/PAT TD SCH (09:00)
[2018-10-19] MEDS: CEFTRIAXONE/SWI 1gm 1 GM/10 ML SYR IV SCH ×2 (10:25→21:13)
[2018-10-19] MEDS ORDERED: ENOXAPARIN 40 MG/0.4 ML SQ SCH (17:00)
[2018-10-19] MEDS: ACETAMINOPHEN 500 MG TAB PO PRN ×2 (17:28→21:12)
--- NOTE | 2018-10-19 18:19 | PN ---
Date of Progress Note: 10/19/2018 Subjective: The patient seen and examined, chart reviewed and case discussed with RN. The patient s eems to be feeling better. Denies any significant cough. Does have some shortness of breath. Medications: List reviewed. Objective: Vital Signs: Temperature 97.6, T-max was 102.2 yesterday afternoon at 4:00 p.m., pulse 9 8, blood pressure 135/69, respirations 20, O2 96% on room air. General: Awake, alert, oriented x3, not in any acute distress, ill-appearing, obese male, BMI 40. CV: S1, S2. Regular rate and rhythm. Peripheral pulses present. Respiratory: Diminished breath sounds. Some rhonchi heard. No wheezing or stridor. Gastrointestinal: Abdomen is soft, nontender, nondistended. Positive bowel sounds. No guarding or rigidity. Extremities: No clubbing, cyanosis. The patient has minimal pedal edema. Neuro: Cranial nerves 2 through 12 intact grossly. No focal neurological deficit. The patient has slight weakness in left upper extremity and lower extremity 4+ out of 5 compared to right upper and l ower extremity. Skin: No rashes. Normal skin turgor. Laboratory Data: Sodium 142, potassium 3.9 chloride 108, CO2 28, BUN 14, creatinine 0.97, glucose 98 , calcium 8.5, procalcitonin 0.56. WBC 21.6, H and H 11.5 and 35.1, platelets 211, neutrophils 86%, no bands. Blood cultures pending. Sputum culture is also pending. Assessment And Plan: A 52-year-old male with: 1.Sepsis. The patient had elevated white count of 20,000, heart rate was elevated at 114. The minesh ent had fever of 102.2. Procalcitonin also elevated likely secondary to bronchitis, developing pneum onia. The patient seems to be improved today. White count however trending upwards, not on any ster oids. We will recheck procalcitonin in a.m. For now, we will continue with IV antibiotics and follo w up on cultures. 2.Acute bronchitis. The patient on empiric antibiotics. 3.Alcohol abuse. We will watch for signs of withdrawal. Use Ativan p.r.n. We will add multivitamin s. 4.Essential hypertension, stable. 5.Nicotine dependence with cigarette smoking, counseled. 6.Congestive heart failure. Last known ejection fraction from over a year ago was 45%. The patient states that he was on Entresto, however, is no longer taking the medication due to loss of insurance . We will resume home medications as appropriate. 7.History of cerebrovascular accident with mild left residual weakness. 8.Mixed hyperlipidemia. 9.History of seizure disorders. 10.Diabetes mellitus type 2, non-insulin requiring. Plan: DVT prophylaxis with Lovenox. We will add Lovenox. Continue antibiotics. Clinically, the pa tient looks improved. We will monitor CBC for signs of worsening sepsis. The patient may end up nee ding a flow cytometry or peripheral blood smear to rule out blast cells. The patient has been ambula ting well. Does not require PT eval. Likely discharge in next 24-48 hours depending on clinical res ponse. /MODL Voice ID: [id number] Report ID: [id number]
[2018-10-20] MEDS: ACETAMINOPHEN 500 MG TAB PO PRN (05:18)
[2018-10-20 06:35] LABS: Absolute Lymphocytes (CBC) 1.5 K/uL (0.7-4.9); Absolute Neutrophil 11.7 K/uL (1.8-8.0); Basophils % 0.1 % (0-1.3); Eosinophils % 1.5 % (0-4.4); Hematocrit 36.3 % (39.6-49.0); Lymphocytes % 10.6 % (15.3-44.8); MPV 9.2 fL (7.6-11.3); Monocytes % 6.9 % (3.3-12.3); RBC Red Blood Cell Count 4.31 M/uL (4.33-5.43)
[2018-10-20 06:51] LABS: ALT/SGPT 15 U/L (12-78); AST/SGOT 12 U/L (15-37); Albumin 3.6 g/dL (3.4-5.0); Alkaline Phosphatase 78 U/L (45-117); BUN Blood Urea Nitrogen 12 mg/dL (7-18); Bicarbonate 29 mmol/L (21-32); Bilirubin Total 0.2 mg/dL (0.2-1.0); Glucose Level 121 mg/dL (74-106); Potassium 4.1 mmol/L (3.5-5.1); Protein, Total 7.4 g/dL (6.4-8.2); Sodium Level 140 mmol/L (136-145)
--- NOTE | 2018-10-21 02:43 | DS ---
Date of Discharge: 10/20/2018 Consultants: None. Admitting Diagnoses: 1.Sepsis. 2.Acute bronchitis. 3.Alcohol abuse. 4.Hypertension. 5.Chronic systolic heart failure. 6.Nicotine dependence with cigarette smoking. Discharge Diagnoses: 1.Sepsis. 2.Acute bronchitis. 3.Alcohol abuse. 4.Essential hypertension. 5.Systolic heart failure, chronic. 6.Nicotine dependence with cigarette smoking. 7.History of CVA with mild left residual weakness. 8.Mixed hyperlipidemia. 9.History of seizure disorder. 10.Diabetes mellitus type 2, [id number]-vnrhravfm, with hyperglycemia. Hospital Course: The patient is a 52-year-old male with past medical history of congestive heart junior lure, hypertension, diabetes, comes in with acute bronchitis and pneumonia. The patient was febrile with temperature of 102.2, white count of 20,000, 3% bands. Procalcitonin was elevated. He was star vijaya on IV antibiotics. Cultures were obtained, which did not show any growth to date. His influenza screen was negative. Urine culture did show 3+ gram-negative rods. The patient's white blood cell count improved. Bandemia resolved. He was no longer showing any signs of sepsis. His blood pressur e was stable. He was no longer febrile. The patient did have a peripheral blood smear sent, did not show any abnormal cells. No blasts were seen. He was then cleared for discharge and was sent home in a stable condition. Activity: As tolerated. Medications: As per medication reconciliation list. Followup: Follow up with PCP in 2-3 days. Return to ER for worsening condition. Physical Examination: General: Awake, alert, oriented, no acute distress. Morbidly obese male. CV: S1, S2. No murmurs. Respiratory: Moving air well bilaterally. No wheezing. Gastrointestinal: Abdomen is soft, nontender, nondistended. Positive bowel sounds. Extremities: No clubbing, cyanosis, edema. Neuro: Mild left-sided weakness. Total time spent discharging the patient was 33 minutes. /CARLOS ALBERTO Voice ID: [id number] Report ID: [id number]
== END 2018-10-20 08:45 | disposition home or self-care (01) | DRG 871 ==
LOC: ER 15:57 → ERHOLD 18:21 → 2ND 20:58
PROVIDERS: ADMIT Family Medicine; ATTEND Internal Medicine
DX: A41.9 Sepsis, unspecified organism (principal); J18.9 Pneumonia, unspecified organism; I50.22 Chronic systolic (congestive) heart failure; I69.354 Hemiplegia and hemiparesis following cerebral infarction affecting left non-dominant side; J20.9 Acute bronchitis, unspecified; F10.10 Alcohol abuse, uncomplicated; F17.210 Nicotine dependence, cigarettes, uncomplicated; I11.0 Hypertensive heart disease with heart failure; E78.2 Mixed hyperlipidemia; E11.65 Type 2 diabetes mellitus with hyperglycemia; Z23 Encounter for immunization
CPT/HCPCS: 36415; 71045; 80048; 80053; 80076; 81003; 81015; 82550; 82553; 83605; 83690; 84145; 84484; 85025; 85610; 85730; 87040; 87077; 87086; 87088; 87186; 87804; 90670; 93005; 94760; 96361; 96365; 96367; 96372; 96375; 99285; G0009; J0456; J0696; J1650; J7030

== ENCOUNTER 2019-07-28 13:32 | Emergency (ER) | payer SELFPAY ==
[2019-07-28 14:58] LABS: Absolute Lymphocytes (CBC) 0.6 K/uL (0.7-4.9); Basophils % 0.4 % (0-1.3); Lymphocytes % 3.9 % (15.3-44.8); MPV 9.2 fL (7.6-11.3); RBC Red Blood Cell Count 4.74 M/uL (4.33-5.43)
[2019-07-28 15:07] LABS: Protime INR 0.98
[2019-07-28 15:09] LABS: Urine Blood NEGATIVE (NEG); Urine Glucose NEGATIVE (NEG); Urine Protein NEGATIVE (NEG)
[2019-07-28 15:20] LABS: ALT/SGPT 21 U/L (12-78); AST/SGOT 15 U/L (15-37); Albumin 3.9 g/dL (3.4-5.0); Alkaline Phosphatase 70 U/L (45-117); BUN Blood Urea Nitrogen 15 mg/dL (7-18); Bicarbonate 25 mmol/L (21-32); Bilirubin Direct 0.1 mg/dL (0-0.2); Bilirubin Total 0.6 mg/dL (0.2-1.0); Glucose Level 125 mg/dL (74-106); Magnesium 1.9 mg/dL (1.8-2.4); NT PRO-BNP 77 pg/mL (<125); Potassium 3.8 mmol/L (3.5-5.1); Protein, Total 7.7 g/dL (6.4-8.2); Sodium Level 139 mmol/L (136-145); Troponin (Emerg Dept Use Only) < 0.02 ng/mL (0.0-0.045)
[2019-07-28 15:39] LABS: Blood Morphology Comment NOTED (NOT SEEN); Hypochromasia 1+; Platelet Estimate ADEQ; Stomatocytes 1+
[2019-07-28] MEDS ORDERED: LORazepam 2 MG/ML VIAL ONE (15:46)
[2019-07-28] MEDS ORDERED: KETOROLAC 30 MG/ML INJ ONE (15:47)
--- NOTE | 2019-07-28 16:24 | RAD REPORT ---
EXAM DESCRIPTION: Marcie Single View07/28/2019 2:51 pm CLINICAL HISTORY: Chest pain COMPARISON: 2018 FINDINGS: The lungs appear clear of acute infiltrate. The heart is mildly to moderately enlarged IMPRESSION: No acute abnormalities displayed
--- NOTE | 2019-07-28 16:27 | RAD REPORT ---
EXAM DESCRIPTION: CT - Head Brain Wo Cont - 07/28/2019 4:19 pm CLINICAL HISTORY: Left-sided numbness COMPARISON: None. TECHNIQUE: Computed axial tomography of the head was obtained. IV contrast was not requested. All CT scans are performed using dose optimization technique as appropriate and may include automated exposure control or mA/KV adjustment according to patient size. FINDINGS: An intracranial bleed is not seen . Low-density areas are present within the right frontal and right parietal lobes having the appearance of old infarcts. Old right basal ganglia infarct. Right cerebral volume loss is noted. The ventricles are normal in caliber. No extra-axial fluid collection is noted. Fluid within the sinuses/ mastoids is not seen. IMPRESSION: No acute intracranial abnormality is seen. If patient's symptoms persist MRI of the bra in would be recommended.
--- NOTE | 2019-07-28 16:32 | RAD REPORT ---
EXAM DESCRIPTION: CT - Abdomen Pelvis W Contrast - 07/28/2019 4:19 pm CLINICAL HISTORY: Abdominal pain COMPARISON: August 2018 TECHNIQUE: Computed axial tomography of the abdomen pelvis was obtained. 100 cc Isovue-300 was admin istered intravenously. Oral contrast was not requested which limits evaluation of bowel. All CT scans are performed using dose optimization technique as appropriate and may include automated exposure control or mA/KV adjustment according to patient size. FINDINGS: The liver, spleen, pancreas, adrenal and kidneys appear unremarkable. There is no evidence of diverticulitis. Normal appendix Small inguinal hernias contain fat. Small umbilical hernia contains fat Epidural lipomatosis involves the lumbar spine IMPRESSION: No acute abnormality is displayed.
--- NOTE | 2019-07-28 16:58 | ER ---
Nurse's Notes [facility] Name: Shawna Mccall Age: 53 yrs Sex: Male : 1965 Arrival Date: 07/28/2019 Time: 13:34 Bed 25 [facility] MD: Diagnosis: Myalgia;Anxiety disorder, unspecified;Shortness of breath;Abdominal and pelvic pain Presentation: 07/28 13:51 Presenting complaint: Back pain, left arm pain, left leg pain, SOB, abdominal fullness, hb and nonproductive cough x 2 days. Denies fever. Transition of care: patient was not received from another setting of care. Onset of symptoms was July 26, 2019. Risk Assessment: Do you want to hurt yourself or someone else? Patient reports no desire to harm self or others. Care prior to arrival: None. 13:51 Method Of Arrival: Ambulatory hb 13:51 Acuity: INGRID 3 hb Historical: - Allergies: 13:52 No Known Allergies; hb - PMHx: 13:52 CHF; Hypertension; Migraines; CVA; Seizures; hb - PSHx: 13:52 None; hb - Immunization history:: Adult Immunizations up to date. - Social history:: Smoking status: Patient/guardian denies using tobacco. - Ebola Screening: : No symptoms or risks identified at this time. Screenin:04 Abuse screen: Denies threats or abuse. Nutritional screening: No deficits noted. sr5 Tuberculosis screening: No symptoms or risk factors identified. Fall Risk No fall in past 12 months (0 pts). Secondary diagnosis (15 points) No IV (0 pts). Ambulatory Aid- None/Bed Rest/Nurse Assist (0 pts). Gait- Normal/Bed Rest/Wheelchair (0 pts) Mental Status- Oriented to own ability (0 pts). Assessment: 14:04 General: Appears in no apparent distress. Behavior is calm, cooperative. Neuro: Level sr5 of Consciousness is awake, alert, obeys commands, Oriented to person, place, time, Gait is steady, Speech is normal, Reports headache started today. Cardiovascular: Patient's skin is warm and dry. Respiratory: Respiratory effort is even, unlabored, Respiratory pattern is regular, symmetrical. Respiratory: Breath sounds are clear bilaterally. GI: No signs and/or symptoms were reported involving the gastrointestinal system. GI: Abdomen is round obese, Last meal at 05:00. Bowel sounds present X 4 quads. Abd is soft Abdomen is tender to palpation in epigastric area and right upper quadrant Reports. : No signs and/or symptoms were reported regarding the genitourinary system. : clear urine, void 300mL, reports being on water pill. Derm: No signs and/or symptoms reported regarding the dermatologic system. Musculoskeletal: Reports body ache all over. 14:53 Reassessment: Pt continues to be fully AA\T\Ox4, c/o headache, equal unlabored resp, 96% sr5 on room air, skin warm/dry/nc, ST on monitor, HR 105, 20G L FA initiated, labs collected. UA collected CC, awaiting CT. 17:19 Reassessment: Upon discharge pt remains fully AA\T\Ox4, equal unlabored resp, skin sr5 warm/dry/nc, steady gait to restroom. Vital Signs: 13:52 BP 155 / 93; Pulse 102; Resp 18; Temp 97.2; Pulse Ox 98% on R/A; Weight 106.59 kg; hb Height 5 ft. 5 in. (165.10 cm); Pain 8/10; 14:04 BP 153 / 87; Pulse 100; Resp 20; Pulse Ox 100% ; sr5 14:53 Pulse 109; Resp 22; Pulse Ox 97% on R/A; Pain 8/10; sr5 17:19 BP 148 / 87; Pulse 100; Resp 20; Temp 97.8; Pulse Ox 100% on R/A; Pain 6/10; sr5 13:52 Body Mass Index 39.11 (106.59 kg, 165.10 cm) hb 14:53 headache and abd pain sr5 Vitals: 14:53 Cardiac Rhythm Assessment Sinus tach. sr5 17:19 Cardiac Rhythm Assessment Sinus tach. sr5 ED Course: 13:34 Patient arrived in ED. as 13:52 Triage completed. hb 13:52 Arm band placed on. hb 13:58 Hank Leggett, RN is Primary Nurse. sr5 14:04 Patient has correct armband on for positive identification. Fall risk band placed. sr5 Placed in gown. Bed in low position. Call light in reach. Side rails up X 1. teletypesetter monitor on. Pulse ox on. NIBP on. Warm blanket given. Pillow given. 14:08 Tex Soliz MD is Attending Physician. kdr 14:43 XRAY Chest (1 view) In Process Unspecified. EDMS 14:53 Initial lab(s) drawn, by me, sent to lab. Urine collected: clean catch specimen, EKG sr5 done, by radiology technologist. Inserted saline lock: 20 gauge in left forearm, using aseptic technique. Blood collected. 16:19 CT Head Brain wo Cont In Process Unspecified. EDMS 16:19 CT Abd/Pelvis - IV Contrast Only In Process Unspecified. EDMS 17:19 No provider procedures requiring assistance completed. IV discontinued, intact, sr5 bleeding controlled, No redness/swelling at site. Pressure dressing applied. Administered Medications: 15:49 Drug: TORadol - Ketorolac 15 mg Route: IVP; Site: left forearm; sr5 16:37 Follow up: Response: Pain is decreased sr5 15:49 Drug: Ativan 1 mg Route: IVP; Site: left forearm; sr5 16:37 Follow up: Response: Pain is decreased sr5 Outcome: 16:57 Discharge ordered by . kdr 17:19 Discharged to home ambulatory, with family. sr5 17:19 Condition: good 17:19 Discharge instructions given to patient, Instructed on discharge instructions, follow up and referral plans. Demonstrated understanding of instructions, follow-up care. 17:43 Patient left the ED. jb1 Signatures: Dispatcher [employer] NADIA Kaur Mitchell jb1 Tex Soliz MD MD kdr Martinez, Amelia as Baxter, Heather, Hank Garcia RN RN RN sr5
--- NOTE | 2019-07-28 16:59 | EDPHYS ---
Physician Documentation [facility] Name: Shawna Mccall Age: 53 yrs Sex: Male : 1965 Arrival Date: 07/28/2019 Time: 13:34 Bed 25 Private MD: ED Physician Tex Soliz HPI: 07/28 16:59 This 53 yrs old Black Male presents to ER via Ambulatory with complaints of Anxiety, kdr Pain All Over - l side. 16:59 The patient presents to the emergency department with anxiety, over unknown kdr circumstances. Onset: The symptoms/episode began/occurred gradually, 2 day(s) ago. Past psychiatric history: Prior diagnosis: no previous psychiatric diagnosis known. Associated signs and symptoms: Pertinent positives; abdominal pain, anxiety, shortness of breath. Severity of symptoms: At their worst the symptoms were mild moderate just prior to arrival, in the emergency department the symptoms are unchanged. The patient has experienced similar episodes in the past, a few times. The patient has not recently seen a physician. Historical: - Allergies: 13:52 No Known Allergies; hb - PMHx: 13:52 CHF; Hypertension; Migraines; CVA; Seizures; hb - PSHx: 13:52 None; hb - Immunization history:: Adult Immunizations up to date. - Social history:: Smoking status: Patient/guardian denies using tobacco. - Ebola Screening: : No symptoms or risks identified at this time. ROS: 16:59 Constitutional: Negative for fever, chills, and weight loss, Eyes: Negative for injury, kdr pain, redness, and discharge, ENT: Negative for injury, pain, and discharge, Neck: Negative for injury, pain, and swelling, Cardiovascular: Negative for chest pain, palpitations, and edema, Back: Negative for injury and pain, : Negative for injury, bleeding, discharge, and swelling, MS/Extremity: Negative for injury and deformity, Skin: Negative for injury, rash, and discoloration, Neuro: Negative for headache, weakness, numbness, tingling, and seizure activity. Allergy/Immunology: Negative for hives, rash, and allergies, Endocrine: Negative for neck swelling, polydipsia, polyuria, polyphagia, and marked weight changes, Hematologic/Lymphatic: Negative for swollen nodes, abnormal bleeding, and unusual bruising. Exam: 17:48 Constitutional: This is a well developed, well nourished patient who is awake, alert, kdr and in no acute distress. Head/Face: Normocephalic, atraumatic. Eyes: Pupils equal round and reactive to light, extra-ocular motions intact. Lids and lashes normal. Conjunctiva and sclera are non-icteric and not injected. Cornea within normal limits. Periorbital areas with no swelling, redness, or edema. Neck: Trachea midline, no thyromegaly or masses palpated, and no cervical lymphadenopathy. Supple, full range of motion without nuchal rigidity, or vertebral point tenderness. No Meningismus. Chest/axilla: Normal chest wall appearance and motion. Nontender with no deformity. No lesions are appreciated. Cardiovascular: Regular rate and rhythm with a normal S1 and S2. No gallops, murmurs, or rubs. Normal PMI, no JVD. No pulse deficits. Respiratory: Lungs have equal breath sounds bilaterally, clear to auscultation and percussion. No rales, rhonchi or wheezes noted. No increased work of breathing, no retractions or nasal flaring. Abdomen/GI: Soft, non-tender, obese with normal bowel sounds. No distension or tympany. No guarding or rebound. No evidence of tenderness throughout. Back: No spinal tenderness. No costovertebral tenderness. Full range of motion. Skin: Warm, dry with normal turgor. Normal color with no rashes, no lesions, and no evidence of cellulitis. MS/ Extremity: Pulses equal, no cyanosis. Neurovascular intact. Full, normal range of motion. Neuro: Awake and alert, GCS 15, oriented to person, place, time, and situation. Cranial nerves II-XII grossly intact. Motor strength 5/5 in all extremities. Sensory grossly intact. Cerebellar exam normal. Normal gait. Psych: Awake, alert, with orientation to person, place and time. Behavior, mood, and affect are within normal limits. Vital Signs: 13:52 BP 155 / 93; Pulse 102; Resp 18; Temp 97.2; Pulse Ox 98% on R/A; Weight 106.59 kg; hb Height 5 ft. 5 in. (165.10 cm); Pain 8/10; 14:04 BP 153 / 87; Pulse 100; Resp 20; Pulse Ox 100% ; sr5 14:53 Pulse 109; Resp 22; Pulse Ox 97% on R/A; Pain 8/10; sr5 17:19 BP 148 / 87; Pulse 100; Resp 20; Temp 97.8; Pulse Ox 100% on R/A; Pain 6/10; sr5 13:52 Body Mass Index 39.11 (106.59 kg, 165.10 cm) hb 14:53 headache and abd pain sr5 MDM: 16:57 Patient medically screened. kdr 17:48 Data reviewed: vital signs, nurses notes, lab test result(s), radiologic studies. kdr Counseling: I had a detailed discussion with the patient and/or guardian regarding: the historical points, exam findings, and any diagnostic results supporting the discharge/admit diagnosis, lab results, radiology results, the need for outpatient follow up. 07/28 14:27 Order name: Basic Metabolic Panel; Complete Time: 15:27 kdr 07/28 14:27 Order name: CBC with Diff; Complete Time: 16:01 kdr 07/28 14:27 Order name: LFT's; Complete Time: 15:27 kdr 07/28 14:27 Order name: Magnesium; Complete Time: 15:27 kdr 07/28 14:27 Order name: NT PRO-BNP; Complete Time: 15:27 kdr 07/28 14:27 Order name: PT-INR; Complete Time: 15:27 kdr 07/28 14:27 Order name: Troponin (emerg Dept Use Only); Complete Time: 15:27 kdr 07/28 14:27 Order name: XRAY Chest (1 view); Complete Time: 16:55 kdr 07/28 14:28 Order name: CT Head Brain wo Cont; Complete Time: 16:55 kdr 07/28 14:28 Order name: CT Abd/Pelvis - IV Contrast Only; Complete Time: 16:55 kdr 07/28 14:58 Order name: Urine Dipstick--Ancillary (enter results); Complete Time: 15:27 bd 07/28 15:40 Order name: Manual Differential; Complete Time: 16:01 EDMS 07/28 14:27 Order name: EKG; Complete Time: 14:28 kdr 07/28 14:27 Order name: Cardiac monitoring; Complete Time: 14:32 kdr 07/28 14:27 Order name: EKG - Nurse/Tech; Complete Time: 14:52 kdr 07/28 14:27 Order name: IV Saline Lock; Complete Time: 15:03 kdr 07/28 14:27 Order name: Labs collected and sent; Complete Time: 14:52 kdr 07/28 14:27 Order name: O2 Per Protocol; Complete Time: 14:32 kdr 07/28 14:27 Order name: O2 Sat Monitoring; Complete Time: 14:32 kdr Administered Medications: 15:49 Drug: TORadol - Ketorolac 15 mg Route: IVP; Site: left forearm; sr5 16:37 Follow up: Response: Pain is decreased sr5 15:49 Drug: Ativan 1 mg Route: IVP; Site: left forearm; sr5 16:37 Follow up: Response: Pain is decreased sr5 Disposition: 07/28/19 16:57 Discharged to Home. Impression: Myalgia, Anxiety disorder, unspecified, Shortness of breath, Abdominal and pelvic pain. - Condition is Stable. - Discharge Instructions: Pain Without a Known Cause, Shortness of Breath, [id number], Abdominal Pain, Adult, [id number], Nonspecific Chest Pain, [id number], Panic Attacks, [id number]. - Medication Reconciliation Form, Thank You Letter form. - Follow up: Private Physician; When: 2 - 3 days; Reason: If symptoms return, Further diagnostic work-up, Recheck today's complaints, Continuance of care, Re-evaluation by your physician. - Problem is an ongoing problem. - Symptoms have improved. Signatures: Dispatcher [employer] EDMS Mitchell Kaur [email or web address] Tex Soliz MD MD kdr Marj Posada RN RN Hank Leggett RN RN sr5 Corrections: (The following items were deleted from the chart) 17:43 16:58 07/28/2019 16:57 Discharged to Home. Impression: Myalgia; Anxiety disorder, jb1 unspecified; Shortness of breath; Abdominal and pelvic pain. Condition is Stable. Forms are Medication Reconciliation Form, Thank You Letter, Antibiotic Education, Prescription Opioid Use. Follow up: Private Physician; When: 2 - 3 days; Reason: If symptoms return, Further diagnostic work-up, Recheck today's complaints, Continuance of care, Re-evaluation by your physician. Problem is an ongoing problem. Symptoms have improved. kdr
[2019-07-28 17:57] VITALS: BP 148/87; TEMP 97.8; O2SAT 100
--- NOTE | 2019-07-30 11:48 | EKG ---
Test Date: 2019-07-28 Test Time: 14:42:34 Tooth Cutter Clutch: FLOR MEASUREMENT RESULTS: Intervals: Rate: 109 WV: 164 QRSD: 86 QT: 330 QTc: 444 Davin: P: 49 WV: 164 QRS: -11 T: 58 INTERPRETIVE STATEMENTS: Sinus tachycardia Possible Left atrial enlargement Left ventricular hypertrophy Abnormal ECG Compared to ECG 10/18/2018 16:23:09 No significant changes Electronically Signed On 07-30-19 11:42:36 BATCH ANALYST by Israel Dumont
== END 2019-07-28 17:43 | disposition home or self-care (01) ==
LOC: ER 13:32
DX: F41.9 Anxiety disorder, unspecified (principal); R06.02 Shortness of breath; R10.2 Pelvic and perineal pain; I10 Essential (primary) hypertension
CPT/HCPCS: 36415; 70450; 71045; 74177; 80048; 80076; 81003; 83735; 83880; 84484; 85025; 85610; 93005; 96374; 96375; 99284; Q9967

== ENCOUNTER 2020-02-18 06:39 | Emergency (ER) | payer SELFPAY ==
--- OUTSIDE RECORDS SUMMARY | 2020-02-18 07:10 | XMS REPORT | Continuity of Care Document ---
:1965 Author Organization [employer] Care Team Providers Name Role Phone [employer] Unavailable Un available Problems Problem Status Onset Classification Date Comments Sourc e Date Reported Headache 04/24/2017 017 [place] GOMES Active 017 [facility] HEADACHE Active 017 [facility] I63.9 STROKE, R58 Active Greater HEMORRHAGE 017 [facility] STROKE Active Greater 017 [facility] Discharge Diagnosis: 08/30/2016 [facility] Seizure 017 [place] SEIZURE Active [facility] 017 [place] ACUTE CEREBROVASCULAR Active Greater ACCIDENT 016 [facility] ARM WEAKNESS, FACIAL Active Greater DROOP 016 [place] Discharge Diagnosis: 03/10/2016 [facility] Acute viral syndrome 016 [place] Discharge Diagnosis: 03/10/2016 [facility] Atypical chest pain 016 [facility] Discharge Diagnosis: 03/10/2016 [facility] Acute hypokalemia 016 [facility] CHEST PAIN Active Greate r 016 [facility] Discharge Diagnosis: 02/21/2016 Greater Syncope 016 [facility] Discharge Diagnosis: 02/21/2016 [facility] Tonic seizure 016 [facility] s SYNCOPE Active Greater 016 [facility] Discharge Diagnosis: 11/25/2014 Muscle strain 015 [facility] Discharge Diagnosis: 11/25/2014 Flank pain 015 [facility] BACK PAIN Active 015 [facility] SHORTNESS OF BREATH Active 015 [facility] OTHER TENOSYNOVITIS OF Active [facility] HAND [facility] WRIST [facility]14 [facility] HAND EDEMA Active 014 [place]FE[place] [facility] ABDOMINAL PAIN Active 014 [place] Discharge Diagnosis: 12/02/2013 Acute bronchitis 014 [facility] SPITTING UP BLOOD Active 014 [facility] FLU LIKE SYMPTOMS Active 013 [place] Congestive heart Active Problem 02/11/2018 Mi antione failure (disorder) 013 N euro,[facility], [facility] Cerebrovascular Active Problem 02/11/2018 Mis jai accident (disorder) Neuro,[facility], [facility] Diabetes mellitus Resolved Problem 02/11/2018 M ischer (disorder) Neuro,[facility], [facility] History of - CVA Resolved Problem 02/11/2018 Mi antione (context-dependent N euro, category) [place], [facility] Hypertensive disorder, Active Problem 02/11/2018 [facility] systemic arterial Ne uro, (disorder) [facility], [facility] Hypercholesterolemia Active Problem 02/11/2018 [facility] (disorder) Neuro,[facility], [facility] Obesity (disorder) Active Problem 02/11/2018 [facility], [facility] Seizure (finding) Active Problem 02/11/2018 [place] [facility] Neuro,[facility], [facility] Spider bite wound Resolved Problem 02/11/2018 M ischer (disorder) Neuro,[facility], [facility] Syncope (disorder) Resolved Problem 02/11/2018 [facility] [place],[facility], [facility] CHF NOS Active [facility] RENAL FAILURE NOS Active [facility] BACTERIAL INFECTION Active [facility] SEPTICEMIA NOS Active [facility] LEFT SIDE - STROKE Active [facility] CEREBRAL INFARCTION, Active [facility] UNSPECIFIED [facility] ALCOHOL Active Prevention HEMORRHAGE, NOT Active [facility] reater [facility] ANESTHESIA OF SKIN Active [facility] Medications Medication Details Route Status Patient Ordering Order Source Instructions Provider Date topiramate 25 MG See Active 04/19[facility] Oral Tablet Instructions, 2017 [place] [Topamax] 1 tab PO BID for 7 days, then 2 tab PO BID thereafter, # 70 tab, 0 Refill(s), Pharmacy: [facility]/pharmacy #[id number] clopidogrel 75 MG 75 mg = 1 tab, Active 04/19/ Oral Tablet PO, Daily, # [address] [Plavix] 30 tab, 0 Refill(s), Pharmacy: [facility]/pharmacy #[id number] NIFEdipine 60 mg 60 mg = 1 tab, Active oral tablet, PO, Daily, # 2017 [place] [facility] extended release 30 tab, 0 Refill(s), Pharmacy: [facility]/pharmacy #[id number] carvedilol 25 mg 25 mg = 1 tab, Active oral tablet PO, BID, # 60 2016 [place] [facility] tab, 0 Refill(s), Pharmacy: [facility]/pharmacy #[id number] atorvastatin 20 mg 20 mg = 1 tab, Active oral tablet PO, Bedtime, # 2017 [place] 30 tab, 0 Refill(s), Pharmacy: [facility]/pharmacy #[id number] Aspirin 325 MG 325 mg = 1 Active Enteric Coated tab, PO, 2017 [place] Tablet Daily, # 100 tab, 0 Refill(s), Pharmacy: [facility]/pharmacy #[id number] sacubitril 97 MG / 1 tab, PO, Active valsartan 103 MG BID, # 60 tab, 2016 [facility] Oral Tablet 0 Refill(s), Pharmacy: [facility]/pharmacy #[id number] heparin sodium, Notes: porcine Inactive porcine 2500 heparin 2016 UNT/ML Injectable Solution sacubitril 97 MG / Notes: (Same No Longer valsartan 103 MG as: Entresto) Active 2016 [facility] Oral Tablet Avoid in patients with history of angioedema due to BECKY inhibitor or ARB therapy. Do not use concomitantly or within 36 hours of BECKY inhibitors Saline Flush 0.9% Notes: (Same No Longer as: BD Active 2016 [facility] Posiflush) atorvastatin Notes: (Same Inactive as: Lipitor) 2016 Levetiracetam 750 Notes: (Same No Longer MG Oral Tablet as:Keppra) Active 2016 [facility] ast [Keppra] carvedilol Notes: Give No Longer with food. Active 2016 [facility] (Same As: Coreg) Frantz's wort 1 tab, PO, Active oral capsule [id number], 0 2016eas t Refill(s) Ibuprofen 800 mg, PO, Active BID, 0 2016 Refill(s) gabapentin 300 MG 300 mg = 1 Active Oral Capsule cap, PO, TID, 2016 [place] # 90 cap, 1 Refill(s) Hydralazine Notes: (Same No Longer as: Active 2016 [facility] Apresoline) Push over 5 minutes Zofran Notes: (Same No Longer as: Zofran) Active 2016 [facility] MEDICATION WASTE Product Size: 4 mg Product Wasted: ___ mg Tylenol Notes: Do not No Longer exceed 4 Active 2016 [facility] gm/day. (Same as: Tylenol) Tums Notes: (Same No Longer As: Tums) Active 2016 [facility] Calcium Carbonate 500 mg = 200 mg elemental calcium Dose = mg calcium carbonate ( mg elemental calcium) Saline Flush 0.9% 10 ml, Route: Inactive IVP, Drug 2016 [facility] Form: INJ, Dosing Weight 100, kg, PRN, PRN Line Flush, Start date: 04/18/17 17:33:00 CDT, Duration: 30 day, Stop date: 05/18/17 17:32:00 CDT Trazodone Notes: (Same No Longer As: Desyrel) Active 2016 [facility] clopidogrel Notes: (Same No Longer As: Plavix) Active 2016 [facility] Aspirin 325 MG Notes: (Do Not No Longer Enteric Coated Crush) Do not Active 2016 [facility] Tablet crush or chew. Famotidine Notes: (Same No Longer as: Pepcid) Active 2016 [facility] Docusate Notes: (Same No Longer as: Colace) Active 2016 [facility] (Do Not Crush) Aspirin Notes: Take Inactive with food. 2016 [facility] Metoclopramide Notes: (Same Inactive as: Reglan) 2016 [facility] Diphenhydramine Notes: (Same Inactive as: Benadryl) 2016 [facility] Saline Flush 0.9% Notes: (Same No Longer as: BD Active 2016 [facility] Posiflush) Tylenol Notes: Do not Inactive Greate r exceed 4 2016 gm/day. (Same as: Tylenol) Saline Flush 0.9% Notes: Same Inactive H Greater as: BD 2016 [facility] Posiflush Sterile Levetiracetam 1000 Notes: (Same Inactive Greater MG Oral Tablet as:Keppra) 2015 [place] [facility] [Keppra] Omnipaque 350 Notes: (same Inactive G reater as:Omnipaque 2015 [facility] 350). WASTE: F/P - Black; E - Municipal Trash Bin Levetiracetam 750 750 mg = 1 Active Greater MG Oral Tablet tab, PO, BID, 2015 [facility] [Keppra] # 60 tab, 0 Refill(s) Aspirin 325 MG 325 mg = 1 Active Gre ater Oral Tablet tab, PO, 2015 [facility] Daily, # 50 tab, 0 Refill(s) Aspirin Notes: Take No Longer Greater with food. Active 2015 [facility] Sukumar Notes: (Same No Longer Greate r As: Sukumar) Active 2015 [facility] Chlordiazepoxide 25 mg, 1 cap, No Longer Greater Hydrochloride 25 Route: PO, Active 2015 [place] MG Oral Capsule Drug form: CAP, QID, Dosing Weight 97.727, kg, Start date: 07/28/16 17:00:00 NURSE MIDWIFE, Duration: 30 day, Stop date: 08/27/16 13:00:00 NURSE MIDWIFE Keppra 1,000 mg, 100 No Longer Great er mL, Route: Active 2015 [facility] IVPB, Drug form: INJ, Q12H, Dosing Weight 97.727, kg, Priority: NOW, Start date: 07/28/16 14:54:00 NURSE MIDWIFE, Duration: 30 day, Stop date: 08/27/16 9:00:00 NURSE MIDWIFE Levetiracetam 1000 1,000 mg, Inactive Greater MG Oral Tablet Route: PO, 2015 [facility] s [Keppra] Drug form: TAB, Q12H, Dosing Weight 97.727, kg, Priority: NOW, Start date: 07/28/16 14:53:00 NURSE MIDWIFE, Duration: 30 day, Stop date: 08/27/16 9:00:00 NURSE MIDWIFE Benzocaine 15 MG / Notes: Same No Longer Greater Menthol 3.6 MG as: Cepacol Active 2015 [place] [facility] [Cepacol Sore Throat Pain Relief 15/3.6] tramadol Notes: Not to No Longer Grea ter hydrochloride 50 exceed Active 2015 [place] MG Oral Tablet 400mg/day. (Same As: Ultram) sacubitril 49 MG / 1 tab, Route: No Longer 07/28 [facility] valsartan 51 MG PO, Drug Form: Active 2015 [facility] eight[facility] Oral Tablet TAB, Dosing [Entresto] Weight 97.727, kg, BID, Start date: 07/28/16 9:00:00 NURSE MIDWIFE, Duration: 30 day, Stop date: 08/26/16 17:00:00 NURSE MIDWIFE Ativan Notes: (Same No Longer [facility] r as: Ativan) Active 2015 [facility] Saline Flush 0.9% Notes: Same No Longer Greater as: BD Active 2015 [facility] Posiflush Sterile Lipitor Notes: (Same No Longer [facility] r As: Lipitor) Active 2015 sacubitril-valsart Notes: (Same No Longer Greater an as: Entresto) 2015 [facility] Avoid in patients with history of angioedema due to BECKY inhibitor or ARB therapy. Do not use concomitantly or within 36 hours of BECKY inhibitors Clonidine Notes: (Same No Longer [facility] ter Hydrochloride 0.2 As: Catapres) Active 2015 MG Oral Tablet Tylenol Notes: Do not No Longer Great er exceed 4 Active 2015 [facility] gm/day. (Same as: Tylenol) Saline Flush 0.9% Notes: Same No Longer Greater as: BD Active 2015 [facility] Posiflush Sterile 24 HR Nifedipine Notes: (Same No Longer Greater 60 MG Extended as: Adalat CC, Active 2015 ights Release Tablet Procardia XL) Give on empty stomach. Take 1 hour before or 2 hours after meal; "Avoid grapefruit and grapefruit juice". Do not crush carvedilol Notes: Give No Longer Grea ter with food. Active 2015 [facility] (Same As: Coreg) Keppra Notes: Same as No Longer Maged Malagon Mix Active 2015 with 100 mL NS, LR or D5W MEDICATION WASTE Product Size: 500 mg Product Wasted: ___ mg Ativan Notes: (Same Inactive Greater as: Ativan) 2015 pneumococcal Notes: (Same No Longer G reater capsular as: Pneumovax Active 2015 polysaccharide 23) type 1 vaccine / Refrigerate pneumococcal capsular polysaccharide type 10A vaccine / pneumococcal capsular polysaccharide type 11A vaccine / pneumococcal capsular polysaccharide type 12F vaccine / pneumococcal capsular polysacchar influenza virus Notes: (Same No Longer H Greater vaccine, as: Fluzone Active 2015 inactivated Quadrivalent, Fluarix Quadrivalent) For 3 years of age and older (0.5 mL IM) Shake well before use sacubitril 49 MG / 1 tab, PO, BID Active Greater valsartan 51 MG 2015 Oral Tablet [Entresto] Aspirin Notes: Take Inactive Greater with food. 2015 Acetaminophen 325 Notes: (Same Inactive Greater MG / Hydrocodone as: [place] 2015 [place] Bitartrate 5 MG 325/5) Do not Oral Tablet [[place] exceed 4gm/day 5/325] of acetaminophen. Saline Flush 0.9% Notes: Same No Longer Greater as: BD Active 2015 Posiflush Sterile Potassium Chloride 20 mEq = 15 Active H Greater 1.33 MEQ/ML Oral mL, PO, BID, 2015 ights Solution 1.33 mEq/ml, # 150 mL, 0 Refill(s) potassium chloride Notes: Infuse Inactive Greater at a rate of 2015 10 mEq/hr. (Same as: KCL) sodium chloride 1,000 mL, Inactive Gr eater 0.9% 1000 ml INJ Rate: 1,000 2015 [place] 1,000 mL ml/hr, Infuse over: 1 hr, Route: IV, Dosing Weight 94.545 kg, Total Volume: 1,000, Priority: STAT, Start date: 03/07/16 15:27:00 CDT, Duration: 1 doses or times, Stop date: 03/07/16 16:26:00 CDT atorvastatin 20 MG 20 mg = 1 tab, Active Greater Oral Tablet PO, Daily 2015 [facility] [Lipitor] 24 HR Nifedipine 60 mg = 1 tab, Active Greater 60 MG Extended PO, Daily 2015 Release Tablet lisinopril 20 mg 20 mg = 1 tab, Active Greater oral tablet PO, BID 2015 carvedilol 25 mg 25 mg = 1 tab, Active Greater oral tablet PO, BID 2015 Potassium Chloride 40 mEq, 15 mL, Inactive 03/07 Greater 1.33 MEQ/ML Oral Route: PO, 2015 [place] Solution Drug form: LIQ, ONCE, Dosing Weight 94.545, kg, Priority: STAT, Start date: 03/07/16 15:12:00 CDT, Stop date: 03/07/16 15:12:00 CDT GI cocktail Notes: G.I. Inactive Grea ter Cocktail = 2015 [facility] antacid with simethicone 22.5 mL - lidocaine viscous 7.5 mL Tylenol Notes: Do not Inactive Greate r exceed 4 2015 [facility] gm/day. (Same as: Tylenol) Sodium Chloride 1,000 mL, 1000 Inactive Greater 0.154 MEQ/ML ml/hr, Infuse 2015 [facility] ts Injectable Over: 1 hr, Solution Route: IV, 1,000, Drug form: INJ, ONCE, Priority: STAT, Dosing Weight 94.545 kg, Start date: 03/07/16 13:04:00 CDT, Duration: 1 doses or times, Stop date: 03/07/16 13:04:00 CDT Saline Flush 0.9% Notes: Same Inactive H Greater as: BD 2015 [facility] Posiflush Sterile Omnipaque 350 Notes: (same Inactive G reater as:Omnipaque 2015 [facility] 350). WASTE: F/P - Black; E - Municipal Trash Bin Hydralazine Notes: (Same Inactive Gre ater as: 2015 [facility] Apresoline) Push over 5 minutes Acetaminophen Notes: Do not Inactive Greater exceed 4 2015 [facility] gm/day. (Same as: Tylenol) Labetalol 20 mg, 4 mL, Inactive [facility] er Route: IVP, 2015 [facility] Drug form: INJ, ONCE, Dosing Weight 81.818, kg, Priority: STAT, Start date: 02/18/16 12:26:00 CDT, Stop date: 02/18/16 12:26:00 CDT Saline Flush 0.9% Notes: Same Inactive H Greater as: BD 2015 [facility] Posiflush Sterile Naproxen sodium 550 mg = 1 Active 550 MG Oral Tablet tab, PO, BID, 2014 [facility] [Anaprox] PRN Pain, X 10 day, # 20 tab, 0 Refill(s) Acetaminophen 300 1 - 2 tab, PO, No Longer 11/22 MG / Codeine Q4H, PRN Pain, Active 2014 [place] Phosphate 60 MG X 2 day, # 12 Oral Tablet tab, 0 [Tylenol with Refill(s) Codeine #4] Cyclobenzaprine 10 mg = 1 tab, Active H hydrochloride 10 PO, TID, PRN 2014 No [facility]ast MG Oral Tablet for spasm/back [Flexeril] pain, X 5 day, # 15 tab, 0 Refill(s) carvedilol PO, 0 Active Refill(s) 2014 [facility] Lisinopril PO, Daily, 0 Active Refill(s) 2014 [facility] Metformin PO, 0 Active Refill(s) 2014 [facility] Simvastatin PO, Bedtime, 0 Active Refill(s) 2014 [facility] Hydrochlorothiazid PO, Daily, 0 Active e Refill(s) 2014 [facility] Morphine 4 mg, Route: Inactive IVP, ONCE, 2014 [facility] Dosing Weight 93.835, kg, Priority: STAT, Start date: 11/22/14 11:18:00, Stop date: 11/22/14 11:18:00 Ketorolac 30 mg, Route: Inactive IVP, ONCE, 2014 [facility] Dosing Weight 93.835, kg, Priority: STAT, Start date: 11/22/14 11:18:00, Stop date: 11/22/14 11:18:00 Ondansetron 4 mg, Route: Inactive IVP, ONCE, 2014 [facility] Dosing Weight 93.835, kg, Priority: STAT, Start date: 11/22/14 11:18:00, Stop date: 11/22/14 11:18:00 Saline Flush 0.9% Notes: (Same Inactive as: BD 2014 [facility] Posiflush) Sodium Chloride 1,000 mL, Inactive 0.154 MEQ/ML Infuse Over: 1 2014 [place] Injectable hr, Route: IV, Solution ONCE, Priority: STAT, Dosing Weight 93.835 kg, Start date: 11/22/14 11:18:00, Duration: 1 doses or times, Stop date: 11/22/14 11:18:00 tramadol 50 mg = 1 tab, Active hydrochloride 50 PO, Q6H, # 30 2014 [place] MG Oral Tablet tab, 0 Refill(s) lisinopril 10 mg 10 mg = 1 tab, Active oral tablet PO, Daily, # [address] [facility] [address] 60 tab, 0 Refill(s) carvedilol 25 mg 25 mg = 1 tab, Active oral tablet PO, Q12H, # 60 2014 [place] tab, 0 Refill(s) Aspirin 81 MG 81 mg = 1 tab, Active Enteric Coated PO, Daily, # 2014 [place] Tablet 30 tab, 0 Refill(s) Hydrochlorothiazid 25 mg = 1 tab, Active e 25 MG Oral PO, Daily, # 2015 [place] [facility] Tablet 30 tab, 0 Refill(s) Alprazolam 0.5 MG 0.5 mg = 1 Active Oral Tablet tab, PO, TID, 2015 [place] [facility] [Xanax] Anxiety, # 24 tab, 0 Refill(s) Ciprofloxacin 500 500 mg = 1 Active MG Oral Tablet tab, PO, Q12H, 2014 [place] [Cipro] # 14 tab, 0 Refill(s) Albuterol 0.09 1 puff, Active MG/ACTUAT Inhalant INHALATION, 2014 [place] Solution QID, wheezing, # 1 ea, 0 Refill(s) {21 Special Active (Methylprednisolon Instructions: 2014 [facility] e 4 MG Oral Tablet Take with or [Medrol]) } Pack without food [Medrol Dosepak] simvastatin 40 mg 40 mg =, PO, Active H oral tablet Bedtime, # 30 2014 [facility] ast tab, 0 Refill(s) Metformin 500 mg = 1 Active hydrochloride 500 tab, PO, BID, 2014 [place] [facility] Oral Tablet # 60 tab, 0 Refill(s) vancomycin + 2001 mg: Inactive Dextrose 5% in infuse over 2014 [place] IV 250 mL 2.5 hours vancomycin + 2001 mg: Inactive Dextrose 5% in infuse over 2014 [place] IV 250 mL 2.5 hours Vancomycin Special Inactive Instructions: 2014 [facility] Pharmacy to dose Zosyn Notes: (Same No Longer as: Zosyn) Active 2014 [facility] Dosing based on Piperacillin component carvedilol Notes: Give No Longer with food. Active 2014 [facility] (Same As: Coreg) multivitamin Notes: Same as No Longer Cerefolin NAC Active 2014 [facility] Non-formulary item Levaquin Notes: (Same No Longer as:Levaquin) Active 2014 [facility] Albuterol 0.833 Notes: (Same No Longer H MG/ML / as: Duoneb) Active 2014 [facility] Ipratropium [place] 0.167 MG/ML Inhalant Solution Vasotec Notes: (Same No Longer as: Active 2014 [facility] Vasotec-IV) Acetylcysteine 200 600 mg, Route: Inactive 08/16 MG/ML Inhalant PO, Drug form: 2014 [facility] Solution SOLN, BID, Dosing Weight 96.96, kg, Priority: STAT, Start date: 08/15/14 18:35:00, Duration: 2 day, Stop date: 08/17/14 17:00:00 Lopressor Notes: (Same No Longer as: Lopressor) Active 2014 [facility] Push over 2 minutes Clonidine Notes: (Same No Longer Hydrochloride 0.1 As: Catapres) Active 2014 [facility] MG Oral Tablet Hydralazine Notes: (Same No Longer as: Active 2014 [facility] Apresoline) Push over 5 minutes Ativan Notes: (Same No Longer as: Ativan) Active 2014 [facility] Morphine Notes: (Same No Longer as:MORPhine Active 2014 [facility] Sulfate) Ativan Notes: (Same Inactive as: Ativan) 2014 Aspirin 81 MG Notes: Do not No Longer Enteric Coated crush or chew. Active 2014 [facility] [place] Tablet (Same As: Ecotrin) Simvastatin Notes: (Same No Longer as: Zocor) Active 2014 [facility] Coreg Notes: Give No Longer with food. Active 2014 [facility] (Same As: Coreg) Acetaminophen Notes: Max No Longer acetaminophen Active 2014 [facility] = 4000 mg/day (4 gm/day). (Same as: Tylenol) tramadol Notes: Not to No Longer hydrochloride 50 exceed Active [address] MG Oral Tablet 400mg/day. (Same As: Ultram) Insulin, Aspart, Notes: Roll in No Longer Human palms of hands Active 2014 [facility] gently; Do not shake vigorously. (Same as: NovoLOG) "single patient use only" Stable for 28 days at room temperature. Expires in days from Date Dextrose 50% 12.5 gm, 25 No Longer Syringe mL, Route: Active 2014 [facility] IVP, Drug Form: INJ, Dosing Weight 96.96, kg, PRN, PRN Blood Glucose Results, Start date: 08/14/14 19:28:00, Duration: 30 day, Stop date: 09/13/14 19:27:00 Glucagon 1 mg, Route: No Longer IM, Drug form: Active 2014 [facility] PDR/INJ, PRN, Dosing Weight 96.96, kg, PRN Blood Glucose Results, Start date: 08/14/14 19:28:00, Duration: 30 day, Stop date: 09/13/14 19:27:00 Magnesium Oxide Notes: (Same No Longer H as: Mag-Ox Active 2014 [facility] 400) Magnesium oxide [id number] elemental magnesium Dose=____mg magnesium oxide (___mg elemental magnesium) Lisinopril Notes: (Same No Longer as: Prinivil, Active 2014 [facility] Zestril) carvedilol Notes: Give No Longer with food. Active 2014 [facility] (Same As: Coreg) Hydralazine Notes: (Same No Longer as: Active 2014 [facility] Apresoline) Push over 5 minutes Tamiflu Notes: Take No Longer with food. Active 2014 [facility] Same as: Tamiflu) Enoxaparin Notes: (Same No Longer as: Lovenox) Active 2014 [facility] Albuterol 0.833 Notes: (Same No Longer H MG/ML / as: Duoneb) Active 2014 [facility] Ipratropium [place] 0.167 MG/ML Inhalant Solution Ondansetron Notes: (Same No Longer as: Zofran) Active 2014 [facility] Acetaminophen Notes: Do not No Longer exceed 4 Active 2014 [facility] gm/day. (Same as: Tylenol) Guaifenesin Notes: (Same No Longer as: Active 2014 [facility] Robitussin) Lasix Notes: (Same Inactive as: Lasix) 2014 [facility] Zithromax Notes: Same Inactive as: Zithromax 2014 [facility] Rocephin Notes: (Same Inactive As: Rocephin). 2014 [facility] Use with 100ml NS mini-bag PLUS and infuse over 30 min Labetalol Notes: (Same Inactive as: Normodyne, 2014 [facility] Trandate) Push over 2 minutes Give bolus over 2-3 minutes. 24 HR Notes: Apply Inactive Nitroglycerin 0.4 only once for 2014 [place] MG/HR Transdermal up to 12 hours Patch in a 24 hour period (12 hours on and 12 hours off.) (Same as:Kaylin James Transde Ada) For topical use only. "Remove old patch before application of new patch" Albuterol 1 MG/ML Notes: SEE RT Inactive Inhalant Solution DOCUMENTATION 2014 [facility] Saline Flush 0.9% Notes: (Same No Longer as: BD Active 2014 [facility] Posiflush) Sodium Chloride 1,000 mL, 1000 Inactive 0.154 MEQ/ML ml/hr, Infuse 2014 [place] Injectable Over: 1 hr, Solution Route: IV, 1,000, Drug form: INJ, ONCE, Priority: STAT, Dosing Weight 113.636 kg, Start date: 08/14/14 7:28:00, Duration: 1 doses or times, Stop date: 08/14/14 7:28:00 Ibuprofen Notes: (Same Inactive as: Motrin) 2014 "Do Not Crush" Give with food. Acetaminophen Notes: Do not Inactive exceed 4 2014 [facility] gm/day. (Same as: Tylenol) Acetaminophen 325 1 tab, PO, Active [place] MG / Hydrocodone Q4H, Pain 2013 Medic al Bitartrate 10 MG Score 4-6, # Ce nter Oral Tablet 42 tab, 0 Refill(s), other Hydrochlorothiazid 25 mg = 1 tab, Active [place] e 25 MG Oral PO, Daily, # 2014 Medica l Tablet 14 tab, 0 Center Refill(s) lisinopril 10 mg 10 mg = 1 tab, Active [place] oral tablet PO, Daily, # 2014 Medical 14 tab, 0 Center Refill(s) tramadol 50 mg = 1 tab, Active [place] hydrochloride 50 PO, Q6H, # 30 2014 M edical MG Oral Tablet tab, 0 Center Refill(s) Sulfamethoxazole 1 tab, PO, Active [place] 800 MG / [id number], # 14 2014 Medical Trimethoprim 160 tab, 0 Center MG Oral Tablet Refill(s) Docusate Sodium 50 1 tab, PO, Active [facility] MG / sennosides, BID, # 30 tab, 2014 Medical [facility] 8.6 MG Oral 0 Refill(s) Cent er Tablet carvedilol 25 mg 25 mg = 1 tab, Active [place] oral tablet PO, Q12H, # 30 2014 Medic al tab, 0 Center Refill(s) Aspirin 81 MG 81 mg = 1 tab, Active [place] Enteric Coated PO, Daily, # 2014 Medi scooby Tablet 30 tab, 0 Center Refill(s) Amoxicillin 875 MG 1 tab, PO, Active [place] / Clavulanate 125 Q12H, # 14 2014 Med ical MG Oral Tablet tab, 0 Center [Augmentin 875-mg] Refill(s) carvedilol Notes: Give No Longer [place] with food. Active 2013 Medical (Same As: Center Coreg) Docusate Sodium 50 Notes: (Same No Longer [place] MG / sennosides, as Senokot-S) Active 2013 edical [facility] 8.6 MG Oral Equiv. to Center Tablet Lorie-Colace. Fluzone Notes: (Same No Longer [place] Quadrivalent as: Fluzone Active 2013 Medical [id number] Quadrivalent) Center Lisinopril Notes: (Same No Longer [place] as as: Prinivil, Active 2013 Medical Zestril) Center Hydralazine Notes: (Same [place] Longer [place] Hydrochloride 25 as: Active 2013 Medical MG Oral Tablet Apresoline) Cente r May interfere w/enteral feedings Take With Food. tramadol Notes: Not to No Longer [place] hydrochloride 50 exceed Active 2013 Medical MG Oral Tablet 400mg/day. Center (Same As: [facility]) carvedilol Notes: Give No Longer [place] with food. Active 2013 Medical (Same As: Center Coreg) Amoxicillin 875 MG Notes: With No Longer [place] / Clavulanate 125 food. (Same Active 2013 Me dical MG Oral Tablet as: Augmentin Ministerio ter [Augmentin 875-mg] 875) Bactrim DS Notes: One DS No Longer [place] tablet = Active 2013 [facility] trimethoprim Center 160mg + sulfamethoxazo le 800 mg Dose based on trimethoprim component On empty stomach with a glass of water. 1 hr before meals (Same As: Bactrim DS, Septra DS) heparin, porcine Notes: porcine No Longer [place] heparin Active 2013 [facility] Center Hydrochlorothiazid Notes: (Same No Longer [place] e as: Active 2013 Medical Hydrodiuril) Center With food. Lisinopril Notes: (Same Inactive [place] as: Prinivil, 2013 Medical Zestril) Center Coreg Notes: Give Inactive [place] with food. 2013 Medical (Same As: Center Coreg) Coreg Notes: Give Inactive [place] with food. 2013 Medical (Same As: Center Coreg) Lisinopril Notes: (Same Inactive [place] as: Prinivil, 2013 Medical Zestril) [place] vancomycin + 2001 mg: Inactive [place] Sodium Chloride infuse over 2013 [facility] scooby 0.9% IV 500 mL 2.5 hours Center Vancomycin FOR IV SET ONLY 24 HR Notes: Apply Inactive [place] Nitroglycerin 0.2 only once for 2013 Medical MG/HR Transdermal up to 12 hours Center Patch in a 24 hour period (12 hours on and 12 hours off.) (Same as:Kaylin James,Maryana Nitro) For topical use only. "Remove old patch before application of new patch" atorvastatin Notes: (Same Inactive [place] as: Lipitor) 2013 [facility] Metoprolol Notes: (Same No Longer [place] as as: Lopressor) Active 2013 Medical Push over 2 Center minutes aspirin Notes: Take No Longer [place] with food. Active 2013 [facility] Labetalol 20 mg, Route: Inactive [place] IVP, Drug 2013 Medical form: INJ, Center ONCE, Dosing Weight 97.727, kg, Priority: STAT, Start date: 05/11/14 5:52:00, Stop date: 05/11/14 5:52:00 Hydralazine Notes: (Same [place] Longer [place] as: Active 2013 Medical Apresoline) Center Push over 5 minutes Hydralazine Notes: (Same Inactive [place] as as: 2013 Medical Apresoline) Center Push over 5 minutes Labetalol 10 mg, 2 mL, Inactive [place] Route: IVP, 2013 Medical Drug form: Center INJ, Q5Min, Dosing Weight 97.727, kg, PRN Elevated BP, Start date: 05/10/14 17:35:00, Duration: 5 doses or times, Stop date: 05/11/14 0:00:00 Fentanyl Notes: (Same Inactive [place] as: Sublimaze) 2013 Medical [facility] free. Hydromorphone Notes: Same Inactive [place] as: Dilaudid 2013 Medical Center Promethazine Notes: Do not Inactive [place] give IV push. 2014 Medical (Same as: [place] Phenergan) Ondansetron Notes: (Same Inactive [place] as: Zofran) 2014 Medical Center Lisinopril Notes: (Same No Longer [place] as as: Prinivil, Active 2013 Medical Zestril) Center vancomycin + 2001 mg: No Longer [place] Sodium Chloride infuse over Active 2013 Medi scooby 0.9% IV 250 mL 2.5 hours Center Vancomycin FOR IV SET ONLY vancomycin + 2001 mg: Inactive [place] Sodium Chloride infuse over 2013 Medi scooby 0.9% IV 500 mL 2.5 hours Center Vancomycin FOR IV SET ONLY aspirin Notes: Do not No Longer [place] crush or chew. Active 2013 Medical (Same As: [place] Ecotrin) carvedilol Notes: Give No Longer [place] with food. Active 2013 Medical (Same As: [place] Coreg) Influenza Virus Notes: (Same Inactive [facility] Vaccine, as: Fluzone 2013 Medical Inactivated Quadrivalent) [place] [id number] (H3N2)-like virus ([id number] 7 [facility] X-175C) strain / Influenza Virus Vaccine, Inactivated [id number] , IVR-148 (H1N1) strain / Influenza Virus Vaccine, Inactivated, M-Vatlhfd-[id number] ik Docusate Notes: (Same No Longer [facility] as: Colace) Active 2013 [facility] Center Ceftriaxone Notes: (Same [place] Longer [place] As: Rocephin). Active 2013 Medical Use with Center 100ml NS mini-bag PLUS and infuse over 30 min Zofran Notes: (Same No Longer [facility] as: Zofran) Active 2013 Medical Center Vancomycin 2001 mg: Inactive [facility] infuse over 2014 Medical 2.5 hours Center Potassium Chloride Notes: (Same Inactive [facility] as: KCL) 2014 Medical Infuse no Center faster than 10 mEq/hr if given peripherally. Insulin, Aspart, Notes: Roll in No Longer [place] Human palms of hands Active 2013 Medical gently; Do Center not shake vigorously. (Same as: NovoLOG) "single patient use only" Stable for 28 days at room temperature. Expires in days from Date Dextrose 50% 25 gm, 50 mL, No Longer [place] Syringe Route: IVP, Active 2013 Medical Drug Form: Center INJ, Dosing Weight 97.727, kg, PRN, PRN Blood Glucose Results, Start date: 05/09/14 6:36:00, Duration: 30 day, Stop date: 06/08/14 5:35:00 Glucagon 1 mg, Route: No Longer [place] IM, Drug form: Active 2013 Medical PDR/INJ, PRN, Center Dosing Weight 97.727, kg, PRN Blood Glucose Results, Start date: 05/09/14 6:36:00, Duration: 30 day, Stop date: 06/08/14 5:35:00 Saline Flush 0.9% Notes: (Same No Longer [place] as: BD Active 2013 Medical Posiflush) Center Ondansetron Notes: (Same [place] Longer [place] as: Zofran) Active 2013 [facility] Center Acetaminophen Notes: Do not No Longer [facility] exceed 4 Active 2013 Medical gm/day. (Same Center as: Tylenol) Acetaminophen 325 Notes: (Same No Longer [facility] MG / Hydrocodone as: [place] Active 2013 Medic al Bitartrate 5 MG 325/5) Do not C enter Oral Tablet exceed 4gm/day of acetaminophen. Morphine Notes: (Same No Longer [facility] as:MORPhine Active 2013 Medical Sulfate) Center Acetaminophen 325 Notes: Do not No Longer [facility] MG / Hydrocodone exceed 4gm/day Active 2013 Medical Bitartrate 10 MG of Center Oral Tablet acetaminophen. (Same as: [place] 325/10) Metformin 500 mg = 1 Active [place] hydrochloride 500 tab, PO, BID, 2014 Medical MG Oral Tablet # 30 tab, 0 Cente r Refill(s) Dilaudid 1 mg, Route: Inactive [place] IVP, ONCE, 2013 Medical Dosing Weight Center 113.636, kg, Priority: STAT, Start date: 05/09/14 3:14:00, Stop date: 05/09/14 3:14:00 Ceftriaxone Notes: (Same Inactive [place] As: Rocephin). 2013 Medical Use with Center 100ml NS mini-bag PLUS and infuse over 30 min Doxycycline Notes: NO Inactive [place] MILK/ANTACIDS/ 2013 Medical IRON Take 1 Center hour before or 2 hours after dairy products NS 1,000 mL Special Inactive Instructions: 2013 [facility] Bolus Dose Ondansetron Notes: (Same No Longer as: Zofran) Active 2013 [facility] Dilaudid Notes: Same No Longer as: Dilaudid Active 2013 [facility] Vancomycin 2001 mg: No Longer infuse over Active 2013 [facility] 2.5 hours Saline Flush 0.9% Notes: (Same No Longer as: BD Active 2013 [facility] Posiflush) Lisinopril Notes: (Same No Longer as: Prinivil, Active 2013 [facility] Zestril) Coreg Notes: Give Inactive with food. 2013 [facility] (Same As: Coreg) lisinopril 5 mg 5 mg = 1 tab, Active oral tablet PO, Daily, # [address] 30 tab, 0 Refill(s) carvedilol 12.5 mg 6.25 mg = 0.5 Active oral tablet tab, PO, BID, [address] [place] [facility] # 15 tab, 0 Refill(s) Hydrochlorothiazid 25 mg = 1 tab, Active e 25 MG Oral PO, Daily, for 2013 [facility] Tablet edema, # 30 tab, 0 Refill(s) Simvastatin Notes: (Same No Longer as: Zocor) Active 2013 [facility] Coreg Notes: Give No Longer with food. Active 2013 [facility] (Same As: Coreg) Hydrochlorothiazid 1 tab, PO, No Longer e 12.5 MG / Bedtime, 0 Active 2013 [facility] Lisinopril 20 MG Refill(s) Oral Tablet carvedilol 12.5 MG 12.5 mg = 1 No Longer Oral Tablet tab, PO, BID, Active 2013 [facility] ast [Coreg] # 60 tab, 0 Refill(s) Metformin 500 mg, PO, No Longer [place], 0 Active 2013 [facility] Refill(s) Simvastatin 40 mg = 1 tab, Active PO, Bedtime, # 2013 [facility] 30 tab, 0 Refill(s) NS 1,000 mL 1,000 mL, No Longer Rate: 40 Active 2013 [facility] ml/hr, Infuse over: 25 hr, Route: IV, Dosing Weight 92.045 kg, Total Volume: 1,000, Start date: 02/07/14 22:24:00, Duration: 30 day, Stop date: 03/09/14 22:23:00 Morphine 2 mg, Route: Inactive IVP, ONCE, 2013 [facility] Dosing Weight 96.364, kg, Start date: 02/07/14 13:00:00, Stop date: 02/07/14 13:00:00 Acetaminophen Notes: Max No Longer acetaminophen Active 2013 [facility] = 4000mg/day (4 gm/day). (Same as: Tylenol) Ondansetron Notes: (Same No Longer as: Zofran) Active 2013 [facility] Docusate Notes: (Same No Longer as: Colace) Active 2013 [facility] (Do Not Crush) Omnipaque 240 50 mL, Route: Inactive PO, Dosing 2013 [facility] Weight 96.364, kg, ONCE, Start date: 02/07/14 9:41:00, Stop date: 02/07/14 9:41:00 Sodium Chloride 1,000 mL, 999 Inactive H 0.154 MEQ/ML ml/hr, Infuse 2013 [place] Injectable Over: 1 hr, Solution Route: IV, ONCE, Priority: STAT, Dosing Weight 96.364 kg, Start date: 02/07/14 9:27:00, Duration: 1 doses or times, Stop date: 02/07/14 9:27:00 Sodium Chloride 500 mL, 500 Inactive 0.154 MEQ/ML ml/hr, Infuse 2013 [place] Injectable Over: 1 hr, Solution Route: IV, ONCE, Priority: STAT, Dosing Weight 96.364 kg, Start date: 02/07/14 7:37:00, Duration: 1 doses or times, Stop date: 02/07/14 7:37:00 Morphine 6 mg, Route: Inactive IVP, Drug 2013 [facility] form: INJ, ONCE, Dosing Weight 96.364, kg, Priority: STAT, Start date: 02/07/14 7:33:00, Stop date: 02/07/14 7:33:00 Zofran 8 mg, Route: Inactive IVP, Drug 2013 [facility] form: INJ, ONCE, Dosing Weight 96.364, kg, Priority: STAT, Start date: 02/07/14 7:33:00, Stop date: 02/07/14 7:33:00 Azithromycin 500 500 mg = 1 Active MG Oral Tablet tab, PO, 2013 [facility] t [Zithromax] Daily, # 7 tab, 0 Refill(s) benzonatate 100 MG 100 mg = 1 Active Oral Capsule cap, PO, TID, 2013 [place] [Tessalon Perles] # 21 cap, 0 Refill(s) carvedilol 12.5 mg 12.5 mg = 1 Active [place] [facility] oral tablet tab, PO, Q12H, 2012 [place] # 60 tab, 0 Refill(s) Tessalon 200 mg 200 mg = 1 Active [place] oral capsule cap, PO, TID, 2012 [place] # 30 cap, 0 Refill(s) albuterol 90 1 puff, Active [place] mcg/inh inhalation INHALATION, 2012 [place] aerosol QID, wheezing, # 1 ea, 0 Refill(s) aspirin 81 mg 81 mg = 1 tab, Active [place] tablet, enteric PO, Daily, # 2012 [place] coated 30 tab, 0 Refill(s) cloNIDine 0.1 mg 0.1 mg = 1 Active [place] oral tablet tab, PO, TID, 2012 [facility] Elevated BP | sbp >/= 160, # 60 tab, 0 Refill(s) simvastatin 20 mg 40 mg = 2 tab, Active [place] oral tablet PO, Bedtime, # 2012 [place] 30 tab, 0 Refill(s) lisinopril 20 mg 20 mg = 1 tab, Active [place] oral tablet PO, Q12H, HOLD 2012 [place] IF SBP HOLD IF SBP </= 110 furosemide 40 mg 40 mg = 1 tab, Active [place] oral tablet PO, Daily, # [address] [facility] [address] 30 tab, 0 Refill(s) Levaquin 750 mg 750 mg = 1 Active Ajelabi oral tablet tab, PO, Q24H, 2012 [place] # 7 tab, 0 Refill(s) Lasix 40 mg, 1 tab, Inactive [place] Route: PO, 2012 [facility] Drug form: TAB, Daily, Dosing Weight 93.3, kg, Start date: 07/21/13 9:00:00, Duration: 30 day, Stop date: 08/19/13 9:00:00(Same as: Lasix) May cause GI upset. Give with food or milk. hydrALAZINE 10 mg, 0.5 mL, No Longer [place] Route: IVP, Active 2012 [facility] Drug form: INJ, Q6H, Dosing Weight 97.727, kg, PRN Hypertension, Start date: 07/20/13 14:02:00, Duration: 30 day, Stop date: 08/19/13 14:01:00, SBP>/=150 OR DBP>/=90(Same as: Apresoline) Push over 5 minutes aspirin 325 mg 325 mg, 1 tab, No Longer [place] tablet, enteric Route: PO, Active 2012 [place] coated Drug form: ECTAB, Daily, Dosing Weight 93.3, kg, Start date: 07/20/13 9:00:00, Duration: 30 day, Stop date: 08/18/13 9:00:00(Do Not Crush) Do not crush or chew. Zocor 40 mg, 2 tab, No Longer [place] Route: PO, Active 2012 [facility] Drug form: TAB, Bedtime, Dosing Weight 93.3, kg, Start date: 07/19/13 21:00:00, Duration: 30 day, Stop date: 08/17/13 21:00:00(Same as: Zocor) lisinopril 20 mg, 1 tab, No Longer [place] Route: PO, Active 2012 [facility] Drug form: TAB, Q12H, Dosing Weight 97.727, kg, Priority: STAT, Start date: 07/19/13 20:50:00, Duration: 30 day, Stop date: 08/18/13 9:00:00(Same as: Prinivil, Zestril) magnesium sulfate 2 gm, 50 mL, No Longer [place] Route: IVPB, 2012 [facility] Drug form: INJ, PRN, Dosing Weight 93.3, kg, PRN Abnormal Lab Result, Start date: 07/19/13 10:51:00, Duration: 30 day, Stop date: 08/18/13 10:50:00, FOR ICU USE ONLYFOR ICU USE ONLY potassium 45 mmol, 15 No Longer [place] phosphate + Sodium mL, Route: Active 2012 [place] Chloride 0.9% IV IVPB, Drug 250 mL form: INJ, PRN, Dosing Weight 93.3, kg, PRN Abnormal Lab Result, Start date: 07/19/13 10:51:00, Duration: 30 day, Stop date: 08/18/13 10:50:00, FOR ICU USE ONLYFOR ICU USE ONLY(Same as: K Phosphate.) 1 mMol phoshate has 1.47 mEq potassium Infuse over 4 hours calcium gluconate 1 gm, 50 mL, No Longer [place] Route: IVPB, 2012 [facility] Drug form: INJ, PRN, Dosing Weight 93.3, kg, PRN Abnormal Lab Result, Start date: 07/19/13 10:51:00, Duration: 30 day, Stop date: 08/18/13 10:50:00, FOR ICU USE ONLYFOR ICU USE ONLY sodium 45 mmol, 45 No Longer [place] glycerophosphate + mL, Route: Active 2012 [place] Sodium Chloride IVPB, Drug 0.9% IV 250 mL form: INJ, PRN, Dosing Weight 93.3, kg, PRN Abnormal Lab Result, Start date: 07/19/13 10:51:00, Duration: 30 day, Stop date: 08/18/13 10:50:00, FOR ICU USE ONLYFOR ICU USE ONLY potassium chloride 20 mEq, 1 tab, No Longer [place] Route: PO, Active 2012 [facility] Drug form: ERTAB, PRN, Dosing Weight 93.3, kg, PRN Abnormal Lab Result, Start date: 07/19/13 10:51:00, Duration: 30 day, Stop date: 08/18/13 10:50:00, FOR ICU USE ONLYFOR ICU USE ONLY(Same as: K-Dur 20) "Do Not Crush" With food and full glass of water Lasix 40 mg, 4 mL, No Longer [place] Route: IVP, Active 2012 [facility] Drug form: INJ, Daily, Dosing Weight 97.727, kg, Priority: Routine, Start date: 07/19/13 9:00:00, Duration: 30 day, Stop date: 08/17/13 9:00:00(Same as: Lasix) folic acid 1 mg, 1 tab, No Longer [place] Route: PO, 2012 [facility] Drug form: TAB, Daily, Dosing Weight 97.727, kg, Start date: 07/19/13 9:00:00, Duration: 30 day, Stop date: 08/17/13 9:00:00(Same as: Folvite) multivitamin 1 tab, Route: No Longer [place] PO, Drug Form: Active 2012 [facility] TAB, Dosing Weight 97.727, kg, Daily, Start date: 07/19/13 9:00:00, Duration: 30 day, Stop date: 08/17/13 9:00:00 thiamine 100 mg, 1 tab, No Longer [place] Route: PO, 2012 [facility] Drug form: TAB, Daily, Dosing Weight 97.727, kg, Start date: 07/19/13 9:00:00, Duration: 30 day, Stop date: 08/17/13 9:00:00(Same As: Vitamin B1) influenza virus 0.5 mL, Route: Inactive SYSTEM vaccine, IM, Drug Form: 2012 [place] inactivated SUSP, Daily, Start date: 07/19/13 9:00:00, Duration: 1 doses or times, Stop date: 07/19/13 9:00:00(Same as: Fluzone) multivitamin with 1 tab, Route: No Longer [place] minerals PO, Drug Form: Active 2012 [facility] t TAB, Daily, Start date: 07/19/13 9:00:00, Duration: 30 day, Stop date: 08/17/13 9:00:00Give with food. (Same As: Stress 600 with Zinc) vancomycin 1.25 gm, 250 No Longer Ajelabi mL, Route: Active 2012 [facility] IVPB, Drug form: INJ, [id number], Start date: 07/19/13 6:00:00, Stop date: 08/18/13 2:00:00Same as: Vancocin-NS (premixed) [place] 10/325 oral 1 tab, Route: No Longer [place] tablet PO, Drug Form: Active 2012 [facility] TAB, Dosing Weight 97.727, kg, Q6H, Start date: 07/19/13 0:00:00, Duration: 30 day, Stop date: 08/17/13 18:00:00Do not exceed 4gm/day of acetaminophen. (Same as: [place] 325/10) albuterol-ipratrop 3 mL, Route: No Longer [place] ium 2.5-0.5 mg NEB, Drug Active [address] [facility] [address] inhalation Form: SOLN, solution Dosing Weight 97.727, kg, RQ4H, Start date: 07/18/13 23:00:00, Duration: 30 day, Stop date: 08/17/13 19:00:00(Same as: Duoneb) Tessalon Perles 200 mg, 2 cap, No Longer [place] Route: PO, 2012 [facility] Drug form: CAP, Q8H-06, Dosing Weight 97.727, kg, Start date: 07/18/13 22:00:00, Duration: 30 day, Stop date: 08/17/13 14:00:00(Same As: Tessalon Perles) "Do Not Crush" lisinopril 10 mg, 1 tab, No Longer [place] Route: PO, Active 2012 [facility] Drug form: TAB, Q12H, Dosing Weight 97.727, kg, Start date: 07/18/13 21:00:00, Duration: 30 day, Stop date: 08/17/13 9:00:00(Same as: Prinivil, Zestril) Coreg 12.5 mg, 1 No Longer [place] tab, Route: Active 2012 [facility] PO, Drug form: TAB, Q12H, Dosing Weight 97.727, kg, Start date: 07/18/13 21:00:00, Stop date: 08/17/13 9:00:00Give with food. (Same As: Coreg) Vancomycin 1 gm, Route: Inactive [facility] D[facility], Dosing 2012 [place] Weight 97.727, kg, Q12H, Start date: 07/18/13 21:00:00, Duration: 30 day, Stop date: 08/17/13 9:00:00 Nicoderm C-Q 21 mg, 1 No Longer [place] patch, Route: Active 2012 [facility] TOP, Drug form: ERFILM, Daily, Dosing Weight 97.727, kg, Start date: 07/18/13 20:25:00, Duration: 30 day, Stop date: 08/17/13 9:00:00(Same as: Habitrol) "Remove old patch before application of new patch" Ativan 1 mg, 0.5 mL, No Longer [place] Route: IVP, Active 2012 [facility] Drug form: INJ, Q2H, Dosing Weight 97.727, kg, PRN Anxiety, Start date: 07/18/13 20:18:00, Duration: 30 day, Stop date: 08/17/13 20:17:00, SIGNS OF WITHDRAWAL, AGITATION, Anxiety(Same as: Ativan) clonidine 0.1 mg 0.1 mg, 1 tab, No Longer [place] oral tablet Route: PO, Active 2012 [facility] Drug form: TAB, TID, Dosing Weight 97.727, kg, PRN Elevated BP, Start date: 07/18/13 20:17:00, Duration: 30 day, Stop date: 08/17/13 20:16:00, sbp >/= 180(Same As: Catapres) vancomycin 1.5 gm, 250 Inactive [facility] mL, Route: 2012 IVPB, Drug form: INJ, ONCE, Start date: 07/18/13 20:00:00, Stop date: 07/18/13 20:00:00Same as: Vancocin-NS (premixed) dextromethorphan-g 10 mL, Route: No Longer [place] 07/19 uaifenesin 10 PO, Drug Form: Active 2012 [place] mg-100 mg/5 mL LIQ, Dosing oral liquid Weight 97.727, kg, Q4H, PRN Cough, Start date: 07/18/13 19:28:00, Duration: 30 day, Stop date: 08/17/13 19:27:00(dextr omethorphan-gu aifenesin 10-100/5 ml LIQ) (Same as: Robitussin-DM) Colace 100 mg oral 100 mg, 1 cap, No Longer [place] 07/02 capsule Route: PO, Active 2012 [facility] Drug form: CAP, BID, Dosing Weight 97.727, kg, PRN Constipation, Start date: 07/18/13 19:28:00, Duration: 30 day, Stop date: 08/17/13 1927:00(Same as: Colace) (Do Not Crush) Gas-X Ultra 160 mg, 2 tab, No Longer [place] Softgels Route: PO, Active 2012 [facility] Drug form: CHEWTAB, Q4H, Dosing Weight 97.727, kg, PRN Gas, Start date: 07/18/13 19:28:00, Duration: 30 day, Stop date: 08/17/13 19:27:00(Same as: Mylicon) GI cocktail 30 ml, Route: No Longer [place] PO, Drug Form: 2012 [facility] SUSP, Dosing Weight 97.727, kg, Q4H, PRN GI Upset, Routine, Start date: 07/18/13 19:28:00, Duration: 30 day, Stop date: 08/17/13 19:27:00, DYSPEPSIAG.I. Cocktail = antacid with simethicone 22.5 mL - lidocaine viscous 7.5 mL morphine Sulfate 2 mg, 1 mL, No Longer [place] H Route: IVP, Active 2012 [facility] Drug form: INJ, Q6H, Dosing Weight 97.727, kg, PRN as needed for pain, Start date: 07/18/13 19:28:00, Duration: 30 day, Stop date: 08/17/1327:00(Same as:MORPhine Sulfate) Tylenol 650 mg, Route: Inactive [place] PO, Drug form: 2012 [facility] TAB, Q6H, Dosing Weight 97.727, kg, PRN Pain, Start date: 07/18/13:28:00, Duration: 30 day, Stop date: 08/17/1327:00 hydrALAZINE 10 mg, 0.5 mL, No Longer [place] Route: IVP, Active 2012 [facility] Drug form: INJ, Q6H, Dosing Weight 97.727, kg, PRN Elevated BP, Start date: 07/18/13:28:00, Duration: 30 day, Stop date: 08/17/13:00, SBP>/=160 OR DBP>/=90(Same as: Apresoline) Push over 5 minutes lactulose 20 gm, 30 ml, No Longer [place] Route: PO, Active 2012 [facility] Drug Form: SYRP, Dosing Weight 97.727, kg, TID, PRN Constipation, Start date: 07/18/13:28:00, Duration: 30 day, Stop date: 08/17/1327:00(Same as:Chronulac) Zofran 4 mg, 2 mL, No Longer [place] Route: IV, Active 2012 [facility] Drug form: INJ, Q4H, Dosing Weight 97.727, kg, PRN Nausea, Start date: 07/18/13:28:00, Duration: 30 day, Stop date: 08/17/1327:00(Same as: Zofran) acetaminophen 650 mg, 2 tab, No Longer [facility] 07/19/ H Route: PO, Active 2012 [facility] Drug form: TAB, Q4H, Dosing Weight 97.727, kg, PRN Pain Score 1-3, For fever > 100.4. Not to exceed 4 grams in 24 hours, Start date: 07/18/13:28:00, Duration: 30 day, Stop date: 08/17/13:27:00Do not exceed 4 gm/day. (Same as: Tylenol) tuberculin 5 unit, 0.1 Inactive [facility] purified protein mL, Route: 2012 [facility] derivative 5 INTRADERM, tuberculin ONCE, Dosing units/0.1 mL Weight 97.727, intradermal kg, Start solution date: 07/18/13 19:22:00, Stop date: 07/18/13 19:22:00 levofloxacin 750 mg, 150 No Longer [facility] mL, Route: IV, Active 2012 [facility] Drug form: SOLN, [id number], Dosing Weight 97.727, kg, Start date: 07/18/13 18:00:00, Duration: 30 day, Stop date: 08/16/13 18:00:00(Same as:Levaquin) Lasix 40 mg, 4 mL, Inactive [facility] 07/18[facility] Route: IV, 2012 [facility] Drug form: INJ, ONCE, Dosing Weight 97.727, kg, Start date: 07/18/13 17:20:00, Stop date: 07/18/13 17:20:00(Same as: Lasix) tuberculin 5 unit, 0.1 Inactive [facility] 07/18[facility] purified protein mL, Route: 2012 [facility] derivative INTRADERM, Drug form: INJ, ONCE, Dosing Weight 97.727, kg, Start date: 07/18/13 17:17:00, Stop date: 07/18/13 17:17:00LOT#: EXP: (Same As: Aplisol, Tubersol) Lasix 40 mg, Route: Inactive [facility] 07/18[facility] IVP, Drug 2012 [facility] form: INJ, ONCE, Dosing Weight 97.727, kg, Priority: STAT, Start date: 07/18/13 17:12:00, Stop date: 07/18/13 17:12:00 hydrALAZINE 20 mg, 1 mL, Inactive Marcela 07/18[facility] Route: IVP, 2012 [facility] Drug form: INJ, ONCE, Dosing Weight 97.727, kg, Priority: STAT, Start date: 07/18/13 14:40:00, Stop date: 07/18/13 14:40:00(Same as: Apresoline) Push over 5 minutes Tylenol 650 mg, Route: Inactive Fa 07/18/ PO, Drug form: 2012 [facility] TAB, ONCE, Dosing Weight 97.727, kg, Priority: STAT, Start date: 07/18/13 14:12:00, Stop date: 07/18/13 14:12:00 ketorolac 30 mg, Route: Inactive Fa 07/18[facility] IVP, Drug 2012 [facility] form: INJ, ONCE, Dosing Weight 97.727, kg, Priority: STAT, Start date: 07/18/13 14:12:00, Stop date: 07/18/13 14:12:00 albuterol-ipratrop 3 mL, Route: Inactive [facility] 07/18[facility] ium 2.5-0.5 mg NEB, Drug 2012 [facility] inhalation Form: SOLN, solution Dosing Weight 97.727, kg, ONCE, STAT, Start date: 07/18/13 13:00:00, Stop date: 07/18/13 13:00:00 Saline Flush 0.9% 5 mL, Route: No Longer Fa 07/18[facility] IVP, Drug Active 2012 [facility] Form: INJ, Dosing Weight 97.727, kg, PRN, PRN Line Flush, Start date: 07/18/13 13:00:00, Duration: 1 doses or times, Stop date: Limited # of times(Same as: BD Posiflush) Allergies, Adverse Reactions, Alerts No Known Medication Allergies Immunizations Immunization Date Site Status Last Comments Source Given Updated influenza virus Left completed Hunter Farfan her vaccine, 4 deltoid Neuro, inactivated [facility], [facility] diphtheria/pertu Left completed Eric V[facility] ssis, 4 Deltoid Neuro, acel/tetanus [facility], [facility] influenza virus Left completed Jacek Farfan her vaccine, 3 Deltoid Neuro,MH inactivated [facility], [facility] influenza virus completed Jacek N [facility] vaccine, 3 inactivated tuberculin completed [facility] purified protein 3 Comment: Félix ro, derivative<sup>1 given in [facility] </sup> left forearm [place], [facility], [facility] tuberculin completed Jack 1Result [facility] purified protein 3 Comment: derivative<sup>1 given in </sup> left forearm Results Order Name Results Value Reference Date Interpretation Comments [facility] rce Range CHEM PANEL Phosphorus 3.7 2.5 - 4.5 04/19 [facility] CHEM PANEL Magnesium 2.1 1.8 - 2.4 04/19 MH Lvl /2016 [facility] ELECTROLYT AGAP 11.5 10.0 - 04/19 MH ES 20.0 /2016 [facility] ELECTROLYT Sodium Lvl 140 135 - 145 04/19 MH ES [facility] ELECTROLYT Glucose Lvl 92 70 - 99 04/19 MH ES [facility] ELECTROLYT BUN 12 7 - 22 04/19 MH ES [facility] ELECTROLYT Creatinine 0.78 0.50 - 04/19 ES Lvl 1.40 /2016 [facility] ELECTROLYT eGFR 106 04/19 Result Comment: The [facility] eGFR is calculated using the CKD-EPI formula. In most young, healthy individuals the eGFR will be >90 mL/min/1.73m2 . The eGFR declines with age. An eGFR of 60-89 may be normal in some populations, particularly the elderly, for whom the CKD-EPI formula has not been extensively validated. Use of the eGFR is not recommended in the following populations:< br/>
Cesia viduals with unstable creatinine concentration s, including patients and those with serious co-morbid conditions.<b r/>
Patie nts with extremes in muscle mass or diet.

The data above are obtained from the National Kidney Disease Education Program (NKDEP) which additionally recommends that when the eGFR is used in patients with extremes of body mass index for purposes of drug dosing, the eGFR should be multiplied by the estimated BMI. ELECTROLYT Calcium Lvl 8.4 8.5 - 10.5 04/19 MH ES [facility] ELECTROLYT CO2 24 24 - 32 04/19 ES [facility] ELECTROLYT Chloride Lvl 108 95 - 109 04/19 ES [facility] ELECTROLYT Potassium 3.5 3.5 - 5.1 04/19 ES Lvl /2016 [facility] HEMATOLOGY INR 1.06 0.85 - 04/19 MH 1.17 /2016 [facility] HEMATOLOGY PT 14.0 12.0 - 04/19 MH 14.7 /2016 [facility] HEMATOLOGY PTT 31.1 22.9 - 04/19 MH 35.8 /2016 [facility] HEMATOLOGY Platelet 217 133 - 450 04/19 /2016 [facility] HEMATOLOGY RBC 4.55 4.70 - 04/19 MH 6.10 /2016 [facility] HEMATOLOGY MCV 84.4 80.0 - 04/19 MH 94.0 /2016 [facility] HEMATOLOGY RDW 14.6 11.5 - 04/19 MH 14.5 /2016 [facility] HEMATOLOGY MCH 28.0 27.0 - 04/19 MH 31.0 /2016 [facility] HEMATOLOGY MCHC 33.2 32.0 - 04/19 MH 36.0 /2016 [facility] HEMATOLOGY WBC 5.9 3.7 - 10.4 04/19 /2016 [facility] HEMATOLOGY Hct 38.4 42.0 - 04/19 MH 54.0 /2016 [facility] HEMATOLOGY Hgb 12.8 14.0 - 04/19 MH 18.0 /2016 [facility] HEMATOLOGY MPV 8.2 7.4 - 10.4 04/19 [facility] ANEMIA Vitamin B12 511 254 - 1320 04/18 STUDY Lvl /2016 [facility] ANEMIA Folate Lvl 18.6 >=3.0 04/18 STUDY ng/mL /2016 [facility] LIPIDS VLDL 13 04/18 [facility] LIPIDS LDL 57 <=99 mg/dL 04/18 (Calculated) [facility] LIPIDS CHD Risk 3.80 4.00 - 04/18 7.30 /2016 [facility] LIPIDS Chol 95 <=199 04/18 mg/dL /2016 [facility] LIPIDS HDL 25 >=61 mg/dL 04/18 [facility] LIPIDS Trig 63 <=149 04/18 mg/dL /2016 [facility] SPECIAL Hgb A1C 6.2 <=5.6 % 04/18 CHEMISTRY /2016 [facility] CARDIAC Troponin-I <0.02 0.00 - 04/18 ENZYMES 0.40 /2017 [facility] CARDIAC Total CK 226 12 - 191 04/18 ENZYMES /2016 [facility] CARDIAC CK MB 1.2 0.5 - 3.6 04/18 ENZYMES /2016 [facility] CARDIAC CK MB Index 0.5 0.0 - 2.5 04/18 ENZYMES /2016 [facility] CHEM PANEL eGFR 113 04/18 Result Comment: The [facility] eGFR is calculated using the CKD-EPI formula. In most young, healthy individuals the eGFR will be >90 mL/min/1.73m2 . The eGFR declines with age. An eGFR of 60-89 may be normal in some populations, particularly the elderly, for whom the CKD-EPI formula has not been extensively validated. Use of the eGFR is not recommended in the following populations:< br/>
Cesia viduals with unstable creatinine concentration s, including patients and those with serious co-morbid conditions.<b r/>
Patie nts with extremes in muscle mass or diet.

The data above are obtained from the National Kidney Disease Education Program (NKDEP) which additionally recommends that when the eGFR is used in patients with extremes of body mass index for purposes of drug dosing, the eGFR should be multiplied by the estimated BMI. CHEM PANEL Globulin 4.0 2.7 - 4.2 04/18 [facility] CHEM PANEL B/C Ratio 10 6 - 25 04/18 [facility] CHEM PANEL A/G Ratio 0.9 0.7 - 1.6 04/18 [facility] CHEM PANEL Calcium Lvl 8.7 8.5 - 10.5 04/18 [facility] CHEM PANEL CO2 26 24 - 32 04/18 [facility] CHEM PANEL Chloride Lvl 108 95 - 109 04/18 [facility] CHEM PANEL ALT 30 0 - 65 04/18 [facility] CHEM PANEL Albumin Lvl 3.7 3.5 - 5.0 04/18 [facility] CHEM PANEL Total 7.7 6.4 - 8.4 04/18 [facility] CHEM PANEL Bili Total 0.4 0.2 - 1.3 04/18 [facility] CHEM PANEL Alk Phos 69 39 - 136 04/18 [facility] CHEM PANEL AST 29 0 - 37 04/18 [facility] CHEM PANEL AGAP 10.0 10.0 - 04/18 MH 20.0 [facility] CHEM PANEL BUN 7 7 - 22 04/18 [facility] CHEM PANEL Glucose Lvl 92 70 - 99 04/18 [facility] CHEM PANEL Sodium Lvl 140 135 - 145 04/18 [facility] CHEM PANEL Potassium 4.0 3.5 - 5.1 04/18 MH Lvl /2016 [facility] CHEM PANEL Creatinine 0.67 0.50 - 04/18 MH Lvl 1.40 /2016 [facility] HEMATOLOGY PTT 31.8 22.9 - 04/18 MH 35.8 /2017 [facility] HEMATOLOGY MPV 8.6 7.4 - 10.4 04/18 /2016 [facility] HEMATOLOGY RDW 14.8 11.5 - 04/18 MH 14.5 /2016 [facility] HEMATOLOGY Hct 39.8 42.0 - 04/18 MH 54.0 /2016 [facility] HEMATOLOGY MCHC 33.7 32.0 - 04/18 MH 36.0 /2016 [facility] HEMATOLOGY MCV 83.2 80.0 - 04/18 MH 94.0 /2016 [facility] HEMATOLOGY MCH 28.0 27.0 - 04/18 MH 31.0 /2016 [facility] HEMATOLOGY Hgb 13.4 14.0 - 04/18 MH 18.0 /2016 [facility] HEMATOLOGY WBC 6.6 3.7 - 10.4 04/18 /2016 [facility] HEMATOLOGY RBC 4.79 4.70 - 04/18 MH 6.10 /2016 [facility] HEMATOLOGY Platelet 228 133 - 450 04/18 /2016 [facility] HEMATOLOGY INR 1.00 0.85 - 04/18 MH 1. [facility] HEMATOLOGY PT 13.4 12.0 - 04/18 MH 14.7 /2016 [facility] HEMATOLOGY Monocytes # 0.7 0.0 - 0.8 04/18 /2016 [facility] HEMATOLOGY Lymphocytes 1.3 1.0 - 5.5 04/18 MH # /2016 [facility] HEMATOLOGY Eosinophils 0.2 0.0 - 0.5 04/18 MH # /2016 [facility] HEMATOLOGY Eosinophils 3.0 0.0 - 4.0 04/18 /2016 [facility] HEMATOLOGY Monocytes 11.3 2.0 - 12.0 04/18 /2016 [facility] HEMATOLOGY Segs-Bands # 4.3 1.5 - 8.1 04/18 /2016 [facility] HEMATOLOGY Basophils 0.5 0.0 - 1.0 04/18 /2016 [facility] HEMATOLOGY Segs 65.4 45.0 - 04/18 MH 75.0 /2016 [facility] HEMATOLOGY Lymphocytes 19.8 20.0 - 04/18 MH 40.0 /2016 [facility] TOXICOLOGY Etoh (%) <0.003 % 04/18 [facility] TOXICOLOGY Ethanol Lvl <3.0 mg/dL 04/18 [facility] URINE AND UA Nitrite Negative Negative 04/18 STOOL (04/18/17 4:20 PM) /2016 [facility] ast URINE AND UA Glucose Negative Negative 04/18 STOOL mg/dL mg/dL [facility] URINE AND UA Ketones Negative Negative 04/18 [facility] mg/dL mg/dL [facility] URINE AND UA Bili Negative Negative 04/18 STOOL *NA* /2016 [facility] (04/18/17 4:20 PM) URINE AND UA Blood Negative Negative 04/18 [facility] (04/18/17 4:20 PM) [facility] URINE AND UA Sq Epi None Seen 04/18 [facility]OOL [facility] URINE AND UA Leuk Est Small Negative 04/18 STO[facility] *ABN* /2016 [facility] (04/18/17 4:20 PM) URINE AND UA <=1.0 0.1 - 1.0 04/18 [facility] Urobilinogen mg/dL [facility] URINE AND UA Color Light Yellow Yellow 04/18 STOOL *NA* /2016 [facility] (04/18/17 4:20 PM) URINE AND UA Protein Negative Negative 04/18 [facility] mg/dL mg/dL [facility] URINE AND UA pH 6.0 5.0 - 8.0 04/18 [facility]OOL [facility] URINE AND UA Spec Grav 1.009 <=1.030 04/18 STOOL [facility] URINE AND UA Turbidity Clear Clear 04/18 [facility] (04/18/17 4:20 PM) [facility] URINE AND UA Mucus Few /LPF None Seen 04/18 STOOL /LPF /2016 [facility] URINE AND UA RBC 4 0 - 2 04/18 [facility] URINE AND UA WBC 6 0 - 5 04/18 [facility] CARDIAC CK MB 2.0 0.5 - 3.6 08/27 [facility] CARDIAC Troponin-I <0.02 0.00 - 08/27 [facility] ENZYMES 0.40 [facility] CARDIAC Total CK 320 12 - 191 08/27 [facility] CARDIAC CK MB Index 0.6 0.0 - 2.5 08/27 [facility] CHEM PANEL A/G Ratio 1.2 0.7 - 1.6 08/27 [facility] CHEM PANEL Globulin 3.4 2.7 - 4.2 08/27 [facility] CHEM PANEL B/C Ratio 14 6 - 25 08/27 [facility] CHEM PANEL eGFR 104 08/27 [facility] Comment: The [facility] eGFR is calculated using the CKD-EPI formula. In most young, healthy individuals the eGFR will be >90 mL/min/1.73m2 . The eGFR declines with age. An eGFR of 60-89 may be normal in some populations, particularly the elderly, for whom the CKD-EPI formula has not been extensively validated. Use of the eGFR is not recommended in the following populations:< br/>
Cesia viduals with unstable creatinine concentration s, including patients and those with serious co-morbid conditions.<b r/>
Patie nts with extremes in muscle mass or diet.

The data above are obtained from the National Kidney Disease Education Program (NKDEP) which additionally recommends that when the eGFR is used in patients with extremes of body mass index for purposes of drug dosing, the eGFR should be multiplied by the estimated BMI. CHEM PANEL Chloride Lvl 105 95 - 109 08/27 [facility] CHEM PANEL Calcium Lvl 8.3 8.5 - 10.5 08/27 ater [facility] CHEM PANEL CO2 30 24 - 32 08/27 [facility] CHEM PANEL Albumin Lvl 4.0 3.5 - 5.0 08/27 [facility] CHEM PANEL Total 7.4 6.4 - 8.4 08/27 Protein [facility] CHEM PANEL Bili Total 0.4 0.2 - 1.3 08/27 [facility] CHEM PANEL Alk Phos 71 39 - 136 08/27 [facility] CHEM PANEL AGAP 9.7 10.0 - 08/27 20.0 [facility] CHEM PANEL AST 22 0 - 37 08/27 [facility] CHEM PANEL ALT 18 0 - 65 08/27 [facility] CHEM PANEL Glucose Lvl 97 70 - 99 08/27 r [facility] CHEM PANEL BUN 12 7 - 22 08/27 [facility] CHEM PANEL Creatinine 0.84 0.50 - 08/27 [facility] Lvl 1.40 [facility] CHEM PANEL Sodium Lvl 141 135 - 145 08/27 [facility] CHEM PANEL Potassium 3.7 3.5 - 5.1 08/27 r Lvl [facility] DRUG UDS Note See Note 08/27 [facility] SCREEN *NA* /2016 [facility] (08/27/16 1:52 PM) DRUG U Cocaine Negative Negative 08/27 [facility] SCREEN Scr *NA* /2016 [facility] (08/27/16 1:52 PM) DRUG U Amph Scr Negative Negative 08/27 [facility] SCREEN *NA* /2016 [facility] (08/27/16 1:52 PM) DRUG U Phencyc Negative Negative 08/27 [facility] SCREEN Scr *NA* [facility] (08/27/16 1:52 PM) DRUG U Opiate Scr Negative Negative 08/27 MH [facility] SCREEN *NA* /2016 [facility] (08/27/16 1:52 PM) DRUG U Cannab Scr Negative Negative 08/27 MH [facility] SCREEN *NA* /2016 [facility] (08/27/16 1:52 PM) DRUG U Benzodia Negative Negative 08/27 [facility] SCREEN Scr *NA* [facility] (08/27/16 1:52 PM) DRUG U Armida Scr Negative Negative 08/27 [facility] SCREEN *NA* /2016 [facility] (08/27/16 1:52 PM) HEMATOLOGY WBC 6.3 3.7 - 10.4 08/27 [facility] HEMATOLOGY RBC 4.80 4.70 - 08/27 [facility] 6.10 [facility] HEMATOLOGY Hct 40.2 42.0 - 08/27 [facility] 54.0 [facility] HEMATOLOGY Hgb 13.4 14.0 - 08/27 [facility] 18.0 [facility] HEMATOLOGY MCV 83.9 80.0 - 08/27 [facility] 94.0 [facility] HEMATOLOGY MCHC 33.4 32.0 - 08/27 [facility] 36.0 [facility] HEMATOLOGY MPV 8.8 7.4 - 10.4 08/27 [facility] HEMATOLOGY Platelet 195 133 - 450 08/27 [facility] HEMATOLOGY RDW 14.8 11.5 - 08/27 [facility] 14.5 [facility] HEMATOLOGY MCH 28.0 27.0 - 08/27 [facility] 31.0 [facility] HEMATOLOGY Segs-Bands # 4.0 1.5 - 8.1 08/27 Gre ater /2016 [facility] HEMATOLOGY Lymphocytes 1.5 1.0 - 5.5 08/[address] # /2016 [facility] HEMATOLOGY Eosinophils 0.2 0.0 - 0.5 08/[address] # /2016 [facility] HEMATOLOGY Monocytes # 0.6 0.0 - 0.8 08/[address] /2016 [facility] HEMATOLOGY Monocytes 9.1 2.0 - 12.0 08/27 [facility] er /2016 [facility] HEMATOLOGY Basophils 0.5 0.0 - 1.0 08/27 [facility] r /2016 [facility] HEMATOLOGY Eosinophils 2.5 0.0 - 4.0 08/[address] [facility] HEMATOLOGY Lymphocytes 24.5 20.0 - 08/27 [facility] r 40.0 /2016 [facility] HEMATOLOGY Segs 63.4 45.0 - 08/27 [facility] 75.0 /2016 [facility] URINE AND UA Leuk Est Negative Negative 08/27 [facility] er STOOL (08/27/16 1:52 PM) /2016 [facility] URINE AND UA 2.0 0.1 - 1.0 08/27 [facility] STOOL Urobilinogen /2016 [facility] URINE AND UA Nitrite Negative Negative 08/27 [facility] ST[facility] (08/27/16 1:52 PM) [facility] URINE AND UA Bili Negative Negative 08/27 [facility] STOOL *NA* /2016 [facility] (08/27/16 1:52 PM) URINE AND UA Blood Negative Negative 08/27 [facility] ST[facility] (08/27/16 1:52 PM) /2016 [facility] URINE AND UA Ketones Negative Negative 08/27 [facility] STOOL mg/dL mg/dL [facility] URINE AND UA Glucose Negative Negative 08/27 [facility] STOOL mg/dL mg/dL /2016 [facility] URINE AND UA Spec Grav 1.020 <=1.030 08/27 [facility] STOOL /2016 [facility] URINE AND UA Color Yellow Yellow 08/27 [facility] STOOL *NA* /2016 [facility] (08/27/16 1:52 PM) URINE AND UA Turbidity Clear Clear 08/27 [facility] STO[facility] (08/27/16 1:52 PM) [facility] URINE AND UA pH 6.5 5.0 - 8.0 08/27 [facility] STOOL [facility] URINE AND UA Protein Negative Negative 08/27 [facility] STOOL mg/dL mg/dL [facility] URINE AND UA Sq Epi None Seen Few 08/27 [facility] STOOL (08/27/16 1:52 PM) /2016 [facility] TOXICOLOGY Etoh (%) <0.003 07/28 [facility] TOXICOLOGY Ethanol Lvl <3 07/28 [facility] /2015 [facility] DRUG U Opiate Scr Negative Negative 07/28 [facility] SCREEN *NA* /2015 [facility] (07/28/16 4:20 PM) DRUG U Benzodia Negative Negative 07/28 [facility] SCREEN Scr *NA* [facility] (07/28/16 4:20 PM) DRUG U Cocaine Negative Negative 07/28 [facility] SCREEN Scr *NA* [facility] (07/28/16 4:20 PM) DRUG U Cannab Scr Negative Negative 07/28 [facility] SCREEN *NA* [facility] (07/28/16 4:20 PM) DRUG U Phencyc Negative Negative 07/28 [facility] SCREEN Scr *NA* [facility] (07/28/16 4:20 PM) DRUG U Armida Scr Negative Negative 07/28 [facility] SCREEN *NA* [facility] (07/28/16 4:20 PM) DRUG U Amph Scr Negative Negative 07/28 [facility] SCREEN *NA* [facility] (07/28/16 4:20 PM) DRUG UDS Note See Note 07/28 [facility] SCREEN *NA* [facility] (07/28/16 4:20 PM) URINE AND UA Bacteria Occasional None Seen 07/28 Gr eater STOOL /HPF /HPF /2015 [facility] URINE AND UA Amorph Occasional None Seen 07/[address] STOOL Paulina /HPF /HPF /2015 [facility] URINE AND UA Mucus None Seen None Seen 07/28 e r STOOL (07/28/16 4:20 PM) /2015 [facility] URINE AND UA WBC None Seen None Seen 07/28 [facility] STO[facility] (07/28/16 4:20 PM) /2015 [facility] URINE AND UA Sq Epi Few /LPF Few /LPF 07/28 [facility] STOOL /2015 [facility] URINE AND UA RBC 0-2 /HPF 0 - 2 07/28 [facility] STOOL /2015 [facility] URINE AND UA Leuk Est Negative Negative 07/28 [facility] STOOL (07/28/16 4:20 PM) /2015 [facility] URINE AND UA Bili Negative Negative 07/28 [facility] STOOL *NA* /2015 [facility] (07/28/16 4:20 PM) URINE AND UA Nitrite Negative Negative 07/28 [facility] STOOL (07/28/16 4:20 PM) /2015 [facility] URINE AND UA 1.0 0.1 - 1.0 07/28 [facility] STOOL Urobilinogen /2015 [facility] URINE AND UA Blood Trace Negative 07/28 [facility] STOOL *ABN* /2015 [facility] (07/28/16 4:20 PM) URINE AND UA pH 8.0 5.0 - 8.0 07/28 [facility] STOOL [facility] URINE AND UA Ketones Trace Negative 07/28 [facility] STOOL *ABN* /2015 [facility] (07/28/16 4:20 PM) URINE AND UA Glucose Negative Negative 07/28 [facility] STOOL (07/28/16 4:20 PM) [facility] ts URINE AND UA Protein Negative Negative 07/28 [facility] STOOL (07/28/16 4:20 PM) [facility] URINE AND UA Color Yellow Yellow 07/28 [facility] STOOL *NA* /2015 [facility] (07/28/16 4:20 PM) URINE AND UA Spec Grav 1.020 <=1.030 07/28 [facility] r STOOL [facility] URINE AND UA Turbidity Clear Clear 07/28 [facility] STOOL (07/28/16 4:20 PM) [facility] CARDIAC CK MB Index 0.4 0.0 - 2.5 07/27 [facility] ENZYMES [facility] CARDIAC CK MB 1.0 0.5 - 3.6 07/27 [facility] ENZYMES [facility] CARDIAC Troponin-I <0.02 0.00 - 07/27 [facility] ENZYMES 0.40 [facility] CARDIAC Total CK 244 12 - 191 07/27 [facility] ENZYMES [facility] CHEM PANEL eGFR 125 07/27 [facility] Comment: The [facility] eGFR is calculated using the CKD-EPI formula. In most young, healthy individuals the eGFR will be >90 mL/min/1.73m2 . The eGFR declines with age. An eGFR of 60-89 may be normal in some populations, particularly the elderly, for whom the CKD-EPI formula has not been extensively validated. Use of the eGFR is not recommended in the following populations:< br/>
Cesia viduals with unstable creatinine concentration s, including patients and those with serious co-morbid conditions.<b r/>
Patie nts with extremes in muscle mass or diet.

The data above are obtained from the National Kidney Disease Education Program (NKDEP) which additionally recommends that when the eGFR is used in patients with extremes of body mass index for purposes of drug dosing, the eGFR should be multiplied by the estimated BMI. CHEM PANEL Albumin Lvl 3.9 3.5 - 5.0 07/27 [facility] CHEM PANEL Total 8.0 6.4 - 8.4 07/27 Protein [facility] CHEM PANEL BUN 11 7 - 22 07/27 [facility] CHEM PANEL Sodium Lvl 143 135 - 145 07/27 [facility] CHEM PANEL Creatinine 0.76 0.50 - 07/27 [facility] Lvl 1.40 [facility] CHEM PANEL Glucose Lvl 93 70 - 99 07/27 r [facility] CHEM PANEL Bili Total 0.3 0.2 - 1.3 07/27 [facility] CHEM PANEL AST 29 0 - 37 07/27 [facility] CHEM PANEL Alk Phos 91 39 - 136 07/27 [facility] CHEM PANEL AGAP 16.4 10.0 - 07/27 20.0 [facility] CHEM PANEL B/C Ratio 14 6 - 25 07/27 [facility] CHEM PANEL A/G Ratio 1.0 0.7 - 1.6 07/27 r [facility] CHEM PANEL Globulin 4.1 2.7 - 4.2 07/27 [facility] CHEM PANEL Calcium Lvl 8.3 8.5 - 10.5 07/27 ater [facility] CHEM PANEL CO2 27 24 - 32 07/27 [facility] CHEM PANEL ALT 24 0 - 65 07/27 [facility] CHEM PANEL Potassium 3.4 3.5 - 5.1 07/27 e r Lvl [facility] CHEM PANEL Chloride Lvl 103 95 - 109 07/27 [facility] HEMATOLOGY Segs 70.6 45.0 - 07/27 75.0 [facility] HEMATOLOGY Monocytes 7.7 2.0 - 12.0 07/27 [facility] HEMATOLOGY Lymphocytes 19.1 20.0 - 07/27 e r 40.0 [facility] HEMATOLOGY Basophils 1.1 0.0 - 1.0 07/27 r [facility] HEMATOLOGY Eosinophils 1.5 0.0 - 4.0 07/27 ter [facility] HEMATOLOGY Basophils # 0.1 0.0 - 0.2 07/[address] /2015 [facility] HEMATOLOGY Eosinophils 0.1 0.0 - 0.5 07/[address] # /2015 [facility] HEMATOLOGY Segs-Bands # 4.2 1.5 - 8.1 07/27 Gre ater /2015 [facility] HEMATOLOGY Monocytes # 0.5 0.0 - 0.8 07/[address] /2015 [facility] HEMATOLOGY Lymphocytes 1.1 1.0 - 5.5 07/[address] # /2015 [facility] HEMATOLOGY PT 13.6 12.0 - 07/27 [facility] 14.7 [facility] HEMATOLOGY INR 1.02 0.85 - 07/27 [facility] 1.17 [facility] HEMATOLOGY PTT 28.3 22.9 - 07/27 [facility] 35.8 [facility] HEMATOLOGY MPV 8.0 7.4 - 10.4 07/27 [facility] HEMATOLOGY Platelet 265 133 - 450 07/27 [facility] HEMATOLOGY RDW 14.5 11.5 - 07/27 [facility] 14.5 [facility] HEMATOLOGY WBC 6.0 3.7 - 10.4 07/27 MH [facility] HEMATOLOGY MCV 84.1 80.0 - 07/27 [facility] 94.0 [facility] HEMATOLOGY Hct 42.3 42.0 - 07/27 MH [facility] 54.0 [facility] HEMATOLOGY Hgb 14.3 14.0 - 07/27 MH [facility] 18.0 [facility] HEMATOLOGY RBC 5.03 4.70 - 07/27 MH [facility] 6.10 [facility] HEMATOLOGY MCH 28.5 27.0 - 07/27 MH [facility] 31.0 [facility] HEMATOLOGY MCHC 33.9 32.0 - 07/27 MH [facility] 36.0 [facility] LIPIDS CHD Risk 5.52 4.00 - 07/27 [facility] 7.30 [facility] LIPIDS HDL 23 >=61 mg/dL 07/27 [facility] LIPIDS Chol 127 <=199 07/27 MH [facility] mg/dL LIPIDS Trig 310 <=149 07/27 [facility] mg/dL LIPIDS LDL 42 <=99 mg/dL 07/27 [facility] (Calculated) [facility] LIPIDS VLDL 62 07/27 MH [facility] SPECIAL Hgb A1C 5.9 <=5.6 % 07/27 [facility] CHEMISTRY [facility] CHEM PANEL eGFR 77 08/06 Result Comment: The [facility] eGFR is calculated using the CKD-EPI formula. In most young, healthy individuals the eGFR will be >90 mL/min/1.73m2 . The eGFR declines with age. An eGFR of 60-89 may be normal in some populations, particularly the elderly, for whom the CKD-EPI formula has not been extensively validated. Use of the eGFR is not recommended in the following populations:< br/>
Cesia viduals with unstable creatinine concentration s, including patients and those with serious co-morbid conditions.<b r/>
Patie nts with extremes in muscle mass or diet.

The data above are obtained from the National Kidney Disease Education Program (NKDEP) which additionally recommends that when the eGFR is used in patients with extremes of body mass index for purposes of drug dosing, the eGFR should be multiplied by the estimated BMI. CHEM PANEL CO2 30 24 - 32 03/07 [facility] CHEM PANEL Chloride Lvl 103 95 - 109 03/07 ter [facility] CHEM PANEL Potassium 2.7 3.5 - 5.1 03/07 Result r Lvl Comment: [facility] Critical Result(s) called to Ignacio CARRIZALES at 03/07/2016 17:10 by [employer]. Read back OK. CHEM PANEL Sodium Lvl 142 135 - 145 03/07 er [facility] CHEM PANEL Calcium Lvl 8.1 8.5 - 10.5 03/07 ater [facility] CHEM PANEL AGAP 11.7 10.0 - 03/07 20.0 [facility] CHEM PANEL BUN 7 7 - 22 03/07 [facility] CHEM PANEL Creatinine 1.27 0.50 - 03/07 [facility] Lvl 1.40 [facility] CHEM PANEL Glucose Lvl 125 70 - 99 03/07 r [facility] ELECTROLYT Potassium 2.7 3.5 - 5.1 03/07 Result [facility] r ES Lvl Comment: [facility] Critical Result(s) called to JOEY HERNÁNDEZ at 03/07/2016 16:38 by [employer]. Read back OK. DRUG U Armida Scr Negative Negative 03/07 [facility] SCREEN *NA* /2015 [facility] (03/07/16 1:30 PM) DRUG U Benzodia Negative Negative 03/07 [facility] SCREEN Scr *NA* [place] (03/07/16 1:30 PM) DRUG U Cocaine Negative Negative 03/07 [facility] SCREEN Scr *NA* [facility] (03/07/16 1:30 PM) DRUG U Cannab Scr Negative Negative 03/07 [facility] SCREEN *NA* [facility] (03/07/16 1:30 PM) DRUG U Opiate Scr Negative Negative 03/07 [facility] SCREEN *NA* [facility] (03/07/16 1:30 PM) DRUG U Phencyc Negative Negative 03/07 [facility] SCREEN Scr *NA* [facility] (03/07/16 1:30 PM) DRUG UDS Note See Note 03/07 [facility] SCREEN *NA* [facility] (03/07/16 1:30 PM) DRUG U Amph Scr Negative Negative 03/07 [facility] SCREEN *NA* [facility] (03/07/16 1:30 PM) URINE AND UA RBC 0-2 /HPF 0 - 2 03/07 [facility] STOOL /2015 [facility] URINE AND UA Bacteria None Seen None Seen 03/07 Gre ater [facility] (03/07/16 1:30 PM) /2015 [facility] URINE AND UA Mucus Moderate None Seen 03/07 [facility] STOOL /LPF /LPF /2015 [facility] URINE AND Micro? Performed 03/07 [facility] (03/07/16 1:30 PM) [facility] URINE AND UA Sq Epi Rare /LPF Few /LPF 03/07 [facility] r STOOL /2015 [facility] URINE AND UA WBC 3-5 /HPF None Seen 03/07 [facility] STOOL /HPF /2015 [facility] URINE AND UA Leuk Est Negative Negative 03/07 [facility] (03/07/16 1:30 PM) [facility] URINE AND UA Nitrite Positive Negative 03/07 [facility] r STOOL *ABN* /2015 [facility] (03/07/16 1:30 PM) URINE AND UA 2.0 0.1 - 1.0 03/07 [facility] STOOL Urobilinogen /2015 [facility] URINE AND UA Blood Negative Negative 03/07 [facility] (03/07/16 1:30 PM) [facility] URINE AND UA Bili Moderate Negative 03/07 [facility] STOOL *ABN* /2015 [facility] (8/6/16 1:30 PM) URINE AND UA Ketones 15 mg/dL Negative 03/07 [facility] STOOL mg/dL /2015 [facility] URINE AND UA Glucose Negative Negative 03/07 e r [facility] (03/07/16 1:30 PM) /2015 [facility] URINE AND UA Protein 30 mg/dL Negative 03/07 [facility] STOOL mg/dL /2015 [facility] URINE AND UA Turbidity Clear Clear 03/07 e r [facility] (03/07/16 1:30 PM) [facility] URINE AND UA Color DK YELLOW 03/07 STOOL /2015 [facility] URINE AND UA pH 5.5 5.0 - 8.0 03/07 STOOL /2015 [facility] URINE AND UA Spec Grav >=1.030 <=1.030 03/07 e r STOOL *ABN* /2015 [facility] (03/07/16 1:30 PM) CARDIAC CK MB Index 0.3 0.0 - 2.5 03/07 [facility] ENZYMES [facility] CARDIAC CK MB 1.5 0.5 - 3.6 03/07 [facility] ENZYMES [facility] CARDIAC Total CK 501 12 - 191 03/07 [facility] ENZYMES /2015 [facility] CARDIAC BNP 8 <=100 03/07 [facility] ENZYMES pg/mL /2015 [facility] CARDIAC Troponin-I 0.06 0.00 - 03/07 [facility] ENZYMES 0.40 [facility] CARDIAC BNP 7 <=100 03/07 [facility] ENZYMES pg/mL /2015 [facility] CHEM PANEL Bili Total 0.9 0.2 - 1.3 03/07 er [facility] CHEM PANEL AST 89 0 - 37 03/07 [facility] CHEM PANEL Alk Phos 121 39 - 136 03/07 [facility] CHEM PANEL A/G Ratio 0.9 0.7 - 1.6 / r [facility] CHEM PANEL Globulin 3.9 2.7 - 4.2 03/07 [facility] CHEM PANEL ALT 52 0 - 65 03/07 [facility] CHEM PANEL Albumin Lvl 3.7 3.5 - 5.0 03/07 Grea [facility] CHEM PANEL Total 7.6 6.4 - 8.4 03/07 Protein [facility] CHEM PANEL AGAP 13.5 10.0 - 0806 [facility] 20.0 /2015 [facility] CHEM PANEL Calcium Lvl 9.1 8.5 - 10.5 08/ [facility] CHEM PANEL B/C Ratio 5 6 - 25 08/ [facility] CHEM PANEL eGFR 64 08/ Result Comment: The [facility] eGFR is calculated using the CKD-EPI formula. In most young, healthy individuals the eGFR will be >90 mL/min/1.73m2 . The eGFR declines with age. An eGFR of 60-89 may be normal in some populations, particularly the elderly, for whom the CKD-EPI formula has not been extensively validated. Use of the eGFR is not recommended in the following populations:< br/>
Cesia viduals with unstable creatinine concentration s, including patients and those with serious co-morbid conditions.<b r/>
Patie nts with extremes in muscle mass or diet.

The data above are obtained from the National Kidney Disease Education Program (NKDEP) which additionally recommends that when the eGFR is used in patients with extremes of body mass index for purposes of drug dosing, the eGFR should be multiplied by the estimated BMI. CHEM PANEL Creatinine 1.47 0.50 - 08 [facility] Lvl 1.40 [facility] CHEM PANEL Sodium Lvl 140 135 - 145 03/07 [facility] CHEM PANEL CO2 30 24 - 32 03/07 [facility] CHEM PANEL Potassium 2.5 3.5 - 5.1 03/07 Result r Lv Comment: [facility] Critical Result(s) called to Chelsea DERAS at 03/07/2016 13:58_ [email or web address]. Read back OK. CHEM PANEL Chloride Lvl 99 95 - 109 08/ [facility] CHEM PANEL BUN 7 7 - 22 / [facility] CHEM PANEL Glucose Lvl 105 70 - 99 / r [facility] HEMATOLOGY Segs-Bands # 5.7 1.5 - 8.1 08 [facility] HEMATOLOGY Lymphocytes 1.3 1.0 - 5.5 08/ [facility] ter # [facility] HEMATOLOGY Basophils # 0.1 0.0 - 0.2 08/ [facility] HEMATOLOGY Eosinophils 0.1 0.0 - 0.5 / MH [address] [facility] # /2015 [facility] HEMATOLOGY Basophils 0.7 0.0 - 1.0 08/06 r /2015 [facility] HEMATOLOGY Segs 70.8 45.0 - 08/ Greater 75.0 /2015 [facility] HEMATOLOGY Monocytes # 0.9 0.0 - 0.8 08/ /2015 [facility] HEMATOLOGY Eosinophils 1.5 0.0 - 4.0 08/ /2015 [facility] HEMATOLOGY Monocytes 10.7 2.0 - 12.0 08/ er /2015 [facility] HEMATOLOGY Lymphocytes 16.3 20.0 - 08/ [facility] HEMATOLOGY Hgb 14.2 14.0 - 08/ [facility] 18.0 /2015 [facility] HEMATOLOGY Hct 43.6 42.0 - 08/ [facility] 54.0 /2015 [facility] HEMATOLOGY MCHC 32.6 32.0 - 08/ [facility] 36.0 /2015 [facility] HEMATOLOGY RDW 15.1 11.5 - 08/ [facility] 14.5 /2015 [facility] HEMATOLOGY MCV 87.6 80.0 - 08/ [facility] 94.0 /2015 [facility] HEMATOLOGY MCH 28.6 27.0 - 08/ [facility] 31.0 /2015 [facility] HEMATOLOGY WBC 8.0 3.7 - 10.4 08/ [facility] HEMATOLOGY RBC 4.97 4.70 - 08/ [facility] 6.10 /2015 [facility] HEMATOLOGY Platelet 245 133 - 450 08/ [facility] HEMATOLOGY MPV 8.5 7.4 - 10.4 08/ [facility] CARDIAC CK MB Index 0.7 0.0 - 2.5 02/17 ENZYMES [facility] CARDIAC Total CK 774 12 - 191 02/17 ENZYMES [facility] CARDIAC CK MB 5.2 0.5 - 3.6 02/17 [facility] ENZYMES /2015 [facility] CARDIAC Troponin-I 0.02 0.00 - 02/17 [facility] ENZYMES 0.40 /2015 [facility] CHEM PANEL eGFR 116 02/17 [facility] Comment: The [facility] eGFR is calculated using the CKD-EPI formula. In most young, healthy individuals the eGFR will be >90 mL/min/1.73m2 . The eGFR declines with age. An eGFR of 60-89 may be normal in some populations, particularly the elderly, for whom the CKD-EPI formula has not been extensively validated. Use of the eGFR is not recommended in the following populations:< br/>
Cesia viduals with unstable creatinine concentration s, including patients and those with serious co-morbid conditions.<b r/>
Patie nts with extremes in muscle mass or diet.

The data above are obtained from the National Kidney Disease Education Program (NKDEP) which additionally recommends that when the eGFR is used in patients with extremes of body mass index for purposes of drug dosing, the eGFR should be multiplied by the estimated BMI. CHEM PANEL Globulin 4.2 2.0 - 4.0 02/17 [facility] CHEM PANEL B/C Ratio 6 6 - 25 02/17 [facility] CHEM PANEL A/G Ratio 0.8 0.7 - 1.6 02/17 r [facility] CHEM PANEL Calcium Lvl 8.2 8.5 - 10.5 02/17 ater [facility] CHEM PANEL AST 117 0 - 37 02/17 [facility] CHEM PANEL ALT 62 0 - 65 02/17 [facility] CHEM PANEL Glucose Lvl 84 70 - 99 02/17 r [facility] CHEM PANEL BUN 5 7 - 22 02/17 [facility] CHEM PANEL Creatinine 0.90 0.50 - 02/17 [facility] Lvl 1.40 [facility] CHEM PANEL Chloride Lvl 96 95 - 109 02/17 [facility] CHEM PANEL Sodium Lvl 133 135 - 145 02/17 [facility] CHEM PANEL Potassium 4.7 3.5 - 5.1 02/17 r Lvl /2015 [facility] CHEM PANEL CO2 36 24 - 32 02/17 [facility] CHEM PANEL AGAP 5.7 10.0 - 02/17 [facility] 20.0 [facility] CHEM PANEL Alk Phos 110 39 - 136 02/17 [facility] CHEM PANEL Bili Total 0.6 0.2 - 1.3 02/17 [facility] CHEM PANEL Total 7.5 6.4 - 8.4 02/17 Protein [facility] CHEM PANEL Albumin Lvl 3.3 3.5 - 5.0 02/17 ter [facility] HEMATOLOGY Segs 62.9 45.0 - 02/17 [facility] 75.0 /2015 [facility] HEMATOLOGY Lymphocytes 22.7 20.0 - 02/17 Greate r 40.0 /2015 [facility] HEMATOLOGY Plt Morph Normal 02/17 [facility] (02/18/16 12:22 PM) /2015 [facility] HEMATOLOGY RBC Morph Normal 02/17 [facility] (02/18/16 12:22 PM) /2015 [facility] HEMATOLOGY Segs-Bands # 3.9 1.5 - 8.1 02/17 Gre ater /2015 [facility] HEMATOLOGY Basophils 1.2 0.0 - 1.0 02/17 Greate r /2015 [facility] HEMATOLOGY Eosinophils 2.7 0.0 - 4.0 02/[address] [facility] HEMATOLOGY Monocytes 10.5 2.0 - 12.0 02/17 Great er /2015 [facility] HEMATOLOGY Basophils # 0.1 0.0 - 0.2 02/[address] /2015 [facility] HEMATOLOGY Monocytes # 0.6 0.0 - 0.8 02/[address] [facility] HEMATOLOGY Eosinophils 0.2 0.0 - 0.5 02/[address] # /2015 [facility] HEMATOLOGY Lymphocytes 1.4 1.0 - 5.5 02/[address] # /2015 [facility] HEMATOLOGY WBC 6.1 3.7 - 10.4 02/17 [facility] HEMATOLOGY Hgb 13.0 14.0 - 02/17 Greater 18.0 /2015 [facility] HEMATOLOGY RDW 14.4 11.5 - 02/17 [facility] 14.5 [facility] HEMATOLOGY MCV 87.9 80.0 - 02/17 [facility] 94.0 [facility] HEMATOLOGY MCHC 32.8 32.0 - 02/17 [facility] 36.0 [facility] HEMATOLOGY Hct 39.6 42.0 - 02/17 [facility] 54.0 /2015 [facility] HEMATOLOGY RBC 4.51 4.70 - 02/17 [facility] 6.10 [facility] HEMATOLOGY Platelet 228 133 - 450 02/17 [facility] HEMATOLOGY MCH 28.9 27.0 - 02/17 [facility] 31.0 /2015 [facility] HEMATOLOGY MPV 9.5 7.4 - 10.4 02/17 [facility] URINE AND UA Mucus Few /LPF None Seen 11/22 STOOL /LPF /2014 [facility] URINE AND UA Sq Epi Occasional Few /LPF 11/22 STOOL /LPF /2014 [facility] URINE AND UA Ketones Trace Negative 11/22 STOOL *ABN* /2014 [facility] (11/22/14 11:38 AM) URINE AND UA Nitrite Negative Negative 11/22 STOOL (11/22/14 11:38 AM) [place] URINE AND UA 2.0 0.1 - 1.0 11/22 STOOL Urobilinogen /2014 [facility] URINE AND UA Blood Negative Negative 11/22 STOOL (11/22/14 11:38 AM) [place] URINE AND UA Leuk Est Negative Negative 11/22 STOOL (11/22/14 11:38 AM) [place] URINE AND UA Color Yellow Yellow 11/22 STOOL *NA* /2014 [facility] (11/22/14 11:38 AM) URINE AND UA Turbidity Clear Clear 11/22 STOOL (11/22/14 11:38 AM) [place] URINE AND UA Glucose Negative Negative 11/22 STOOL (11/22/14 11:38 AM) [place] URINE AND UA Protein 30 mg/dL Negative 11/22 STOOL mg/dL /2014 [facility] URINE AND UA pH 6.5 5.0 - 8.0 11/22 STOOL [facility] URINE AND UA Spec Grav 1.025 <=1.030 11/22 STOOL [facility] URINE AND UA Bili Small Negative 11/22 STOOL *ABN* /2014 [facility] (11/22/14 11:38 AM) CHEM PANEL Lipase Lvl 77 73 - 393 11/22 [facility] CHEM PANEL eGFR 117 11/22 <sup>1</sup>R esult [facility] Comment: The eGFR is calculated using the CKD-EPI formula. In most young, healthy individuals the eGFR will be >90 mL/min/1.73m2 . The eGFR declines with age. An eGFR of 60-89 may be normal in some populations, particularly the elderly, for whom the CKD-EPI formula has not been extensively validated. Use of the eGFR is not recommended in the following populations:& lt;br/>
I ndividuals with unstable creatinine concentration s, including patients and those with serious co-morbid conditions.<b r/>
Patie nts with extremes in muscle mass or diet.

The data above are obtained from the National Kidney Disease Education Program (NKDEP) which additionally recommends that when the eGFR is used in patients with extremes of body mass index for purposes of drug dosing, the eGFR should be multiplied by the estimated BMI. CHEM PANEL Bili Total 0.4 0.2 - 1.3 11/22 [facility] CHEM PANEL Alk Phos 106 39 - 136 11/22 [facility] CHEM PANEL AST 83 0 - 37 11/22 [facility] CHEM PANEL Albumin Lvl 4.2 3.5 - 5.0 11/22 [facility] CHEM PANEL Total 8.5 6.4 - 8.4 11/22 Protein [facility] CHEM PANEL Calcium Lvl 9.0 8.5 - 10.5 11/22 [facility] CHEM PANEL ALT 57 0 - 65 11/22 [facility] CHEM PANEL CO2 30 24 - 32 11/22 [facility] CHEM PANEL Chloride Lvl 103 95 - 109 11/22 [facility] CHEM PANEL Potassium 3.6 3.5 - 5.1 11/22 Lvl [facility] CHEM PANEL Creatinine 0.9 0.5 - 1.4 11/22 [facility] CHEM PANEL BUN 8 7 - 22 11/22 [facility] CHEM PANEL Sodium Lvl 139 135 - 145 11/22 [facility] CHEM PANEL Glucose Lvl 86 70 - 99 11/22 <sup>2</sup>I nterpretive [facility] Data: Adult reference range values reflect the clinical guidelines
of the [employer]. CHEM PANEL B/C Ratio 9 6 - 25 11/22 [facility] CHEM PANEL Globulin 4.3 2.0 - 4.0 11/22 [facility] CHEM PANEL A/G Ratio 1.0 0.7 - 1.6 11/22 [facility] CHEM PANEL AGAP 9.6 10.0 - 11/22 MH 20.0 [facility] HEMATOLOGY MCHC 33.0 32.0 - 11/22 36.0 [facility] HEMATOLOGY MCH 28.5 27.0 - 11/22 31.0 [facility] HEMATOLOGY MCV 86.3 80.0 - 11/22 94.0 /2014 [facility] HEMATOLOGY MPV 9.3 7.4 - 10.4 11/22 [facility] HEMATOLOGY Platelet 263 133 - 450 11/22 [facility] HEMATOLOGY RDW 15.3 11.5 - 11/22 MH 14.5 /2014 [facility] HEMATOLOGY RBC 5.09 4.70 - 11/22 MH 6.10 /2014 [facility] HEMATOLOGY Hct 43.9 42.0 - 11/22 54.0 /2014 [facility] Hgb 14.5 14.0 - 11/22 MH 18.0 /2014 [facility] WBC 8.2 3.7 - 10.4 11/22 [facility] HEMATOLOGY Basophils 0.8 0.0 - 1.0 11/22 [facility] HEMATOLOGY Segs-Bands # 6.0 1.5 - 8.1 11/22 [facility] HEMATOLOGY Monocytes # 0.6 0.0 - 0.8 11/22 [facility] HEMATOLOGY Lymphocytes 1.4 1.0 - 5.5 11/22 [facility] HEMATOLOGY Basophils # 0.1 0.0 - 0.2 11/22 [facility] HEMATOLOGY Eosinophils 0.1 0.0 - 0.5 11/22 MH # [facility] HEMATOLOGY Monocytes 7.5 2.0 - 12.0 11/22 [facility] HEMATOLOGY Eosinophils 1.5 0.0 - 4.0 11/22 [facility] HEMATOLOGY Lymphocytes 17.4 20.0 - 11/22 MH 40.0 [facility] HEMATOLOGY Segs 72.8 45.0 - 11/22 75.0 [facility] CHEM PANEL Magnesium 2.2 1.8 - 2.4 08/17 Lvl /2014 [facility] CHEM PANEL Procalcitoni 0.26 0.00 - 08/17 n Lvl 0.10 [facility] CHEM PANEL eGFR 93 08/17 <sup>1</sup>R esult [facility] Comment: The eGFR is calculated using the CKD-EPI formula. In most young, healthy individuals the eGFR will be >90 mL/min/1.73m2 . The eGFR declines with age. An eGFR of 60-89 may be normal in some populations, particularly the elderly, for whom the CKD-EPI formula has not been extensively validated. Use of the eGFR is not recommended in the following populations:& lt;br/>
I ndividuals with unstable creatinine concentration s, including patients and those with serious co-morbid conditions.<b r/>
Patie nts with extremes in muscle mass or diet.

The data above are obtained from the National Kidney Disease Education Program (NKDEP) which additionally recommends that when the eGFR is used in patients with extremes of body mass index for purposes of drug dosing, the eGFR should be multiplied by the estimated BMI. CHEM PANEL BUN 11 7 - 22 08/17 [facility] CHEM PANEL Glucose Lvl 122 70 - 99 08/17 <sup>4</sup>I nterpretive [facility] Data: Adult reference range values reflect the clinical guidelines
of the [employer]. CHEM PANEL Creatinine 1.1 0.5 - 1.4 08/17 Lvl /2014 [facility] CHEM PANEL Sodium Lvl 138 135 - 145 08/17 [facility] CHEM PANEL Chloride Lvl 105 95 - 109 08/17 [facility] CHEM PANEL Potassium 3.9 3.5 - 5.1 08/17 Lvl /2014 [facility] CHEM PANEL CO2 24 24 - 32 08/17 [facility] CHEM PANEL Calcium Lvl 8.4 8.5 - 10.5 08/17 [facility] CHEM PANEL AGAP 12.9 10.0 - 08/17 MH 20.0 [facility] CHEM PANEL Phosphorus 3.8 2.5 - 4.5 08/17 [facility] HEMATOLOGY Basophils # 0.1 0.0 - 0.2 08/17 /2014 [facility] HEMATOLOGY Eosinophils 0.3 0.0 - 0.5 08/17 MH # /2014 [facility] HEMATOLOGY Monocytes # 1.1 0.0 - 0.8 08/17 [facility] HEMATOLOGY Lymphocytes 1.3 1.0 - 5.5 08/17 MH # /2014 [facility] HEMATOLOGY Segs-Bands # 7.3 1.5 - 8.1 08/17 [facility] HEMATOLOGY Basophils 0.9 0.0 - 1.0 08/17 [facility] HEMATOLOGY Monocytes 10.7 2.0 - 12.0 08/17 [facility] HEMATOLOGY Lymphocytes 13.2 20.0 - 08/17 MH 40.0 /2014 [facility] HEMATOLOGY Segs 72.5 45.0 - 08/17 MH 75.0 /2014 [facility] HEMATOLOGY Eosinophils 2.7 0.0 - 4.0 08/17 [facility] HEMATOLOGY RDW 16.2 11.5 - 08/17 MH 14.5 /2014 [facility] HEMATOLOGY Platelet 222 133 - 450 08/17 [facility] HEMATOLOGY MPV 9.6 7.4 - 10.4 08/17 /2014 [facility] HEMATOLOGY Hct 34.8 42.0 - 08/17 MH 54.0 /2014 [facility] HEMATOLOGY MCV 89.3 80.0 - 08/17 94.0 /2014 [facility] HEMATOLOGY MCH 29.2 27.0 - 08/17 MH 31.0 /2014 [facility] HEMATOLOGY MCHC 32.7 32.0 - 08/17 MH 36.0 /2014 [facility] HEMATOLOGY Hgb 11.4 14.0 - 08/17 18.0 /2014 [facility] HEMATOLOGY WBC 10.0 3.7 - 10.4 08/17 /2014 [facility] HEMATOLOGY RBC 3.89 4.70 - 08/17 MH 6.10 /2014 [facility] CARDIAC Total CK 497 12 - 191 08/16 ENZYMES /2014 [facility] CARDIAC Troponin-I 0.06 0.00 - 08/16 ENZYMES 0.40 /2014 [facility] CARDIAC BNP 204 <=100 08/16 <sup>7</sup>I ENZYMES pg/mL /2014 nterpretive [facility] Data: Elevated results are in line with increasing severity of
con gestive heart failure. Minor elevations between 100 and 300
may be seen with Myocardial Ischemia, Sodium retaining drugs,
an d compensated/t reated heart failure. CHEM PANEL Magnesium 2.0 1.8 - 2.4 08/16 Lv [facility] CHEM PANEL Phosphorus 2.8 2.5 - 4.5 08/16 [facility] ELECTROLYT AGAP 12.6 10.0 - 08/16 ES 20.0 [facility] ELECTROLYT eGFR 93 08/16 <sup>2</sup>R ES /2014 esult [facility] Comment: The eGFR is calculated using the CKD-EPI formula. In most young, healthy individuals the eGFR will be >90 mL/min/1.73m2 . The eGFR declines with age. An eGFR of 60-89 may be normal in some populations, particularly the elderly, for whom the CKD-EPI formula has not been extensively validated. Use of the eGFR is not recommended in the following populations:& lt;br/>
I ndividuals with unstable creatinine concentration s, including patients and those with serious co-morbid conditions.<b r/>
Patie nts with extremes in muscle mass or diet.

The data above are obtained from the National Kidney Disease Education Program (NKDEP) which additionally recommends that when the eGFR is used in patients with extremes of body mass index for purposes of drug dosing, the eGFR should be multiplied by the estimated BMI. ELECTROLYT Glucose Lvl 121 70 - 99 08/16 <sup>5</sup>I MH nterpretive [facility] Data: Adult reference range values reflect the clinical guidelines
of the [employer]. ELECTROLYT Creatinine 1.1 0.5 - 1.4 08/16 MH ES Lvl /2014 [facility] ELECTROLYT BUN 10 7 - 22 08/16 ES /2014 [facility] ELECTROLYT CO2 24 24 - 32 08/16 ES /2014 [facility] ELECTROLYT Sodium Lvl 137 135 - 145 08/16 ES [facility] ELECTROLYT Chloride Lvl 104 95 - 109 08/16 ES [facility] ELECTROLYT Potassium 3.6 3.5 - 5.1 08/16 ES Lvl /2014 [facility] ELECTROLYT Calcium Lvl 8.3 8.5 - 10.5 08/16 ES [facility] HEMATOLOGY Lymphocytes 8.0 20.0 - 08/16 MH 40.0 /2014 [facility] HEMATOLOGY Segs 81.9 45.0 - 08/16 MH 75.0 /2014 [facility] HEMATOLOGY Eosinophils 0.6 0.0 - 4.0 08/16 [facility] HEMATOLOGY Monocytes 8.7 2.0 - 12.0 08/16 [facility] HEMATOLOGY Eosinophils 0.1 0.0 - 0.5 08/16 MH # /2015 [facility] HEMATOLOGY Basophils # 0.1 0.0 - 0.2 08/16 [facility] HEMATOLOGY Segs-Bands # 12.1 1.5 - 8.1 08/16 [facility] HEMATOLOGY Basophils 0.8 0.0 - 1.0 08/16 [facility] HEMATOLOGY Lymphocytes 1.2 1.0 - 5.5 08/16 /2014 [facility] HEMATOLOGY Monocytes # 1.3 0.0 - 0.8 08/16 [facility] HEMATOLOGY WBC 14.8 3.7 - 10.4 08/16 [facility] HEMATOLOGY Platelet 249 133 - 450 08/16 [facility] HEMATOLOGY RDW 16.2 11.5 - 08/16 MH 14.5 /2014 [facility] HEMATOLOGY MCH 28.3 27.0 - 08/16 MH 31.0 /2014 [facility] HEMATOLOGY MCHC 31.7 32.0 - 08/16 36.0 /2015 [facility] HEMATOLOGY MPV 9.4 7.4 - 10.4 08/16 /2014 [facility] HEMATOLOGY Hct 39.5 42.0 - 08/16 54.0 /2014 [facility] HEMATOLOGY MCV 89.1 80.0 - 08/16 94.0 /2014 [facility] HEMATOLOGY Hgb 12.6 14.0 - 08/16 18.0 /2014 [facility] HEMATOLOGY RBC 4.44 4.70 - 08/16 6.10 /2014 [facility] MOLECULAR Adenovirus Negative 12 Negative 08/16 <sup>12</sup> DIAGNOSTIC PCR (08/15/14 11:56 PM) /2014 Interpreti ve [facility] Data: The Adenovirus PCR assay is a multiplex Real-Time PCR test for the
detec tion of the human Adenovirus. The test detects but does not
diffe rentiate serotypes 1-51. A negative result does not rule out
the presence of virus. The specimen may contain polymerase chain
vipul ction (PCR) inhibitors or virus below the detectable limits of
the assay. Results should not be used as the sole basis for clinical
diagnosis, treatment or patient management.<b r/>
This assay utilizes FDA cleared IVD reagents for Real-Time nucleic
a corey amplification (PCR). Performance characteristi cs have been
veri fied by the [facility] within [facility]. The [facility] Laboratory is authorized under
the Clinical Laboratory Improvement Amendments of 1988 (CLIA-88) to
perfor m high complexity testing. MOLECULAR Source [employer] STAFF EDUCATOR Swab 08/16 DIAGNOSTIC Adenovirus (08/15/14 11:56 PM) /2014 [facility] PCR MOLECULAR Parainfluenz Negative Negative 08/16 DIAGNOSTIC a 2 PCR (08/15/14 11:56 PM) /2014 [facility] MOLECULAR Source [employer] STAFF EDUCATOR Swab 08/16 DIAGNOSTIC Parainfluenz (08/15/14 11:56 PM) /2014 [facility] a Virus PCR MOLECULAR Parainfluenz Negative Negative 08/16 DIAGNOSTIC a 1 PCR (08/15/14 11:56 PM) /2014 [facility] MOLECULAR Parainfluenz Negative 13 Negative 08/16 <sup>13</sup > DIAGNOSTIC a 3 PCR (08/15/14 11:56 PM) Interpreti ve [facility] Data: The Parainfluenza PCR assay is a multiplex Real-Time PCR test for
the detection and discriminatio n of the Parainfluenza 1 Virus,
Pa rainfluezna 2 Virus and the Parainfluenza 3 Virus. This assay
tar gets the conserved regions of the Hemagglutinin -Neuraminidas e
(HN) gene of the HPIV-1, HPIV-2 and HPIV-3, respectively. This
test is not intended to detect Parainfluenza 4a or Parainfluenza
4b Viruses. A negative result does not rule out the presence of
virus. The specimen may contain polymerase chain reaction (PCR)
inh ibitors or virus below the detectable limits of the assay.<br/&gt ;Results should not be used as the sole basis for clinical diagnosis,
treatment or patient management.<b r/>
This assay utilizes FDA cleared IVD reagents for Real-Time nucleic
a corey amplification (PCR). Performance characteristi cs have been
veri fied by the [facility] within [facility]. The [facility] is authorized
under the Clinical Laboratory Improvement Amendments of 1988
(CLI A-88) to perform high complexity testing. MOLECULAR Source [employer] STAFF EDUCATOR Swab 08/16 DIAGNOSTIC Respiratory (08/15/14 11:56 PM) /2014 [facility] Panel PCR MOLECULAR RSV PCR Negative 14 Negative 08/16 <sup>14</sup> DIAGNOSTIC (08/15/14 11:56 PM) Interpreti ve [facility] Data: Gen-Probe Prodesse ProFlu plus assay is a multiplex real-time PCR test
for the qualitative detection and discriminatio n of Influenza A Virus,
In fluenza B Virus, and Respiratory Syncytial Virus. A negative result
do es not rule out the presence of these viruses. The specimen may
conta in polymerase chain reaction (PCR) inhibitors or virus below the
detec table limits of the assay. Results should not be used as the sole
basi s for clinical diagnosis, treatment, or patient management.<b r/>
Th is assay utilizes FDA cleared IVD reagents for Real-Time nucleic acid
ampl ification (PCR). Performance characteristi cs have been verified by
the [facility] within [facility]. The
[facility] is authorized under the Clinical
Laboratory Improvement Amendments of 1988 (CLIA-88) to perform high
comp lexity testing. MOLECULAR Influenza B Negative Negative 08/16 DIAGNOSTIC PCR (08/15/14 11:56 PM) [facility] MOLECULAR Influenza A Negative Negative 08/16 DIAGNOSTIC PCR (08/15/14 11:56 PM) [facility] CARDIAC Total CK 516 12 - 191 08/15 ENZYMES [facility] CARDIAC Troponin-I 0.04 0.00 - 08/15 ENZYMES 0.40 [facility] CHEM PANEL Phosphorus 1.8 2.5 - 4.5 08/15 [facility] CHEM PANEL Magnesium 1.9 1.8 - 2.4 08/15 Lvl [facility] CHEM PANEL eGFR 93 08/15 <sup>3</sup>R esult [facility] Comment: The eGFR is calculated using the CKD-EPI formula. In most young, healthy individuals the eGFR will be >90 mL/min/1.73m2 . The eGFR declines with age. An eGFR of 60-89 may be normal in some populations, particularly the elderly, for whom the CKD-EPI formula has not been extensively validated. Use of the eGFR is not recommended in the following populations:& lt;br/>
I ndividuals with unstable creatinine concentration s, including patients and those with serious co-morbid conditions.<b r/>
Patie nts with extremes in muscle mass or diet.

The data above are obtained from the National Kidney Disease Education Program (NKDEP) which additionally recommends that when the eGFR is used in patients with extremes of body mass index for purposes of drug dosing, the eGFR should be multiplied by the estimated BMI. CHEM PANEL Glucose Lvl 96 70 - 99 08/15 <sup>6</sup>I nterpretive [facility] Data: Adult reference range values reflect the clinical guidelines
of the [employer] [employer]. CHEM PANEL BUN 12 7 - 22 08/15 [facility] CHEM PANEL CO2 22 24 - 32 08/15 [facility] CHEM PANEL Potassium 3.7 3.5 - 5.1 08/15 Lvl [facility] CHEM PANEL Sodium Lvl 136 135 - 145 08/15 [facility] CHEM PANEL Creatinine 1.1 0.5 - 1.4 08/15 Lvl [facility] CHEM PANEL Chloride Lvl 104 95 - 109 08/15 [facility] CHEM PANEL Calcium Lvl 8.5 8.5 - 10.5 08/15 [facility] CHEM PANEL AGAP 13.7 10.0 - 08/15 20.0 [facility] HEMATOLOGY Basophils # 0.2 0.0 - 0.2 08/15 [facility] HEMATOLOGY Basophils 1.4 0.0 - 1.0 08/15 [facility] HEMATOLOGY Eosinophils 1.1 0.0 - 4.0 08/15 [facility] HEMATOLOGY Monocytes 7.5 2.0 - 12.0 08/15 [facility] HEMATOLOGY Monocytes # 1.1 0.0 - 0.8 08/15 [facility] HEMATOLOGY Eosinophils 0.2 0.0 - 0.5 08/15 /2014 [facility] HEMATOLOGY Lymphocytes 1.2 1.0 - 5.5 08/15 MH # /2014 [facility] HEMATOLOGY Lymphocytes 8.6 20.0 - 08/15 MH 40.0 /2014 [facility] HEMATOLOGY Segs 81.4 45.0 - 08/15 75.0 /2014 [facility] HEMATOLOGY Segs-Bands # 11.4 1.5 - 8.1 08/15 [facility] HEMATOLOGY Platelet 267 133 - 450 08/15 [facility] HEMATOLOGY RDW 16.4 11.5 - 08/15 MH 14. [facility] HEMATOLOGY MPV 9.4 7.4 - 10.4 08/15 [facility] HEMATOLOGY MCHC 31.1 32.0 - 08/15 36.0 /2014 [facility] HEMATOLOGY MCH 27.8 27.0 - 08/15 31.0 /2014 [facility] HEMATOLOGY RBC 4.61 4.70 - 08/15 MH 6.10 /2014 [facility] HEMATOLOGY WBC 14.1 3.7 - 10.4 08/15 /2014 [facility] HEMATOLOGY MCV 89.2 80.0 - 08/15 94.0 [facility] HEMATOLOGY Hct 41.1 42.0 - 08/15 54.0 [facility] HEMATOLOGY Hgb 12.8 14.0 - 08/15 MH 18.0 /2014 [facility] CARDIAC Total CK 493 12 - 191 08/15 ENZYMES /2014 [facility] CARDIAC Troponin-I 0.04 0.00 - 08/15 ENZYMES 0.40 /2014 [facility] DRUG U Amph Scr Negative Negative 08/15 MH SCREEN *NA* [facility] (08/15/14 4:00 AM) DRUG U Cocaine Negative Negative 08/15 MH SCREEN Scr [facility] (08/15/14 4:00 AM) DRUG U Armida Scr Negative Negative 08/15 MH SCREEN *NA* [facility] (08/15/14 4:00 AM) DRUG U Benzodia Negative Negative 08/15 MH SCREEN Scr *NA [facility] (08/15/14 4:00 AM) DRUG UDS Note See Note 9 08/15 <sup>9</sup>I MH SCREEN * nterpretive [facility] (08/15/14 4:00 AM) Data: Drugs reported as positive have not been confirmed by a second
ar thod and should be used for medical purposes only. To order
con firmation, contact laboratory.<b r/>
not e: Below are cut-off concentration s for all urine drugs of
abuse performed in the laboratory. Some drugs listed in the table
may not be included in this panel.
<b r/>Descriptio n Cut-off concentration
----- ------
Am phetamine 1000 ng/mL
Bar biturates 200 ng/mL
Doroteo zodiazepines 300 ng/mL
Luis Felipe frederic metabolites 300 ng/mL
Opi ates 300 ng/mL
Phencyclidine 25 ng/mL
Pro poxyphene 300 ng/mL
Marijuana metabolites 50 ng/mL
Met hadone 300 ng/mL
Urine alcohol 20 mg/dL DRUG U Cannab Scr Negative Negative 08/15 SCREEN *NA* [facility] (08/15/14 4:00 AM) DRUG U Opiate Scr Negative Negative 08/15 SCREEN *NA* [facility] (08/15/14 4:00 AM) DRUG U Phencyc Negative Negative 08/15 SCREEN Scr *NA* [facility] (08/15/14 4:00 AM) BACTERIAL U S pneumo Negative Negative 08/14 - SEROLOGY [facility] (08/14/14 9:57 AM) [place] [facility] URINE AND UA Leuk Est Negative Negative 08/14 [facility] (08/14/14 9:25 AM) [facility] URINE AND UA Nitrite Negative Negative 08/14 [facility] (08/14/14 9:25 AM) [facility] URINE AND UA Spec Grav 1.025 <=1.030 08/14 STOOL [facility] URINE AND UA Turbidity Clear Clear 08/14 [facility] (08/14/14 9:25 AM) [place] [facility] URINE AND UA pH 6.0 5.0 - 8.0 08/14 STOOL /2014 [facility] URINE AND UA Protein 30 mg/dL Negative 08/14 [facility] mg/dL [facility] URINE AND UA Color Yellow Yellow 08/14 STOOL *NA* /2014 [facility] (08/14/14 9:25 AM) URINE AND UA Bili Negative Negative 08/14 STOOL *NA* [facility] (08/14/14 9:25 AM) URINE AND UA Ketones 15 mg/dL Negative 08/14 [facility]OOL mg/dL /2014 [facility] URINE AND UA Glucose Negative Negative 08/14 [facility] (08/14/14 9:25 AM) [place] [facility] URINE AND UA 1.0 0.1 - 1.0 08/14 STOOL Urobilinogen /2014 [facility] URINE AND UA Blood Negative Negative 08/14 [facility] (08/14/14 9:25 AM) [place] [facility] URINE AND UA Mucus Many /LPF None Seen 08/14 STOOL /LPF /2014 [facility] URINE AND UA Bacteria None Seen None Seen 08/14 [facility] (08/14/14 9:25 AM) /2014 [facility] URINE AND UA Fine Gran 0-2 /LPF None Seen 08/14 STOOL /LPF /2014 [facility] URINE AND UA RBC None Seen 0 - 2 08/14 [facility] (08/14/14 9:25 AM) /2014 [place] URINE AND UA WBC None Seen None Seen 08/14 [facility] (08/14/14 9:25 AM) /2014 [place] [facility] URINE AND UA Sq Epi Occasional Few /LPF 08/14 STOOL /LPF /2014 [facility] CARDIAC BNP 94 <=100 08/14 <sup>8</sup>I ENZYMES pg/mL /2014 nterpretive [facility] Data: Elevated results are in line with increasing severity of
con gestive heart failure. Minor elevations between 100 and 300
may be seen with Myocardial Ischemia, Sodium retaining drugs,
an d compensated/t reated heart failure. CARDIAC CK MB 5.6 0.5 - 3.6 08/14 ENZYMES [facility] CARDIAC CK MB Index 0.8 0.0 - 2.5 08/14 ENZYMES [facility] CHEM PANEL A/G Ratio 1.0 0.7 - 1.6 08/14 [facility] CHEM PANEL Globulin 3.7 2.0 - 4.0 08/14 [facility] CHEM PANEL Bili Total 0.8 0.2 - 1.3 08/14 [facility] CHEM PANEL B/C Ratio 8 6 - 25 08/14 [facility] CHEM PANEL Total 7.5 6.4 - 8.4 08/14 Protein [facility] CHEM PANEL Albumin Lvl 3.8 3.5 - 5.0 08/14 [facility] CHEM PANEL Alk Phos 112 39 - 136 08/14 [facility] CHEM PANEL AST 33 0 - 37 08/14 [facility] CHEM PANEL ALT 27 0 - 65 08/14 [facility] CHEM PANEL Lactic Acid 1.2 0.5 - 2.2 08/14 Lvl /2014 [facility] CHEM PANEL Procalcitoni 0.05 0.00 - 08/14 n Lvl 0.10 [facility] HEMATOLOGY INR 1.01 0.85 - 01/13 <sup>10</sup> 1.17 Interpretive [facility] Data: RECOMMENDED RANGES FOR PROTIME INR:
2.0-3.0 for most medical and surgical thromboemboli c states.
2.5-3.5 for artificial heart valves and recurrent embolism.<br/ >
INR SHOULD BE USED ONLY FOR PATIENTS ON STABLE ANTICOAGULANT THERAPY. HEMATOLOGY PTT 31.0 22.9 - 08/14 <sup>11</sup> 35.8 /2014 Interpretive [facility] Data: Heparin Therapeutic Range: 57 - 92 Seconds HEMATOLOGY PT 13.3 12.0 - 08/14 14.7 /2014 [facility] HEMATOLOGY Anisocyte 1+ None Seen 08/14 *ABN* /2014 [facility] (08/14/14 8:49 AM) HEMATOLOGY Plt Morph Normal 08/14 (08/14/14 8:49 AM) [facility] ast VIRAL - Influ A Negative Negative 08/14 SEROLOGY (08/14/14 8:49 AM) [place] VIRAL - Influ B Negative 15 Negative 08/14 <sup>15</sup> SEROLOGY (08/14/14 8:49 AM) /[facility]: [facility] A&B Antigen:
Due to the low sensitivity of this test a negative result does not exclude influenza virus infection. A diagnosis of influenza should be considered based on a patient's clinical presentation and empiric antiviral treatment should be considered, if indicated. If more conclusive testing is desired, follow-up confirmatory testing with either viral culture or PCR is warranted. CHEM PANEL Magnesium 2.1 1.8 - 2.4 05/13 [facility] CHEM PANEL Phosphorus 4.9 2.5 - 4.5 05/13 [facility]2013 [facility] CHEM PANEL eGFR 124 05/13 <sup>1</sup>[place] [facility] Medical Comment: The Center eGFR is calculated using the CKD-EPI formula. In most young, healthy individuals the eGFR will be >90 mL/min/1.73m2 . The eGFR declines with age. An eGFR of 60-89 may be normal in some populations, particularly the elderly, for whom the CKD-EPI formula has not been extensively validated. Use of the eGFR is not recommended in the following populations:& lt;br/>
I ndividuals with unstable creatinine concentration s, including patients and those with serious co-morbid conditions.<b r/>
Patie nts with extremes in muscle mass or diet.

The data above are obtained from the National Kidney Disease Education Program (NKDEP) which additionally recommends that when the eGFR is used in patients with extremes of body mass index for purposes of drug dosing, the eGFR should be multiplied by the estimated BMI. CHEM PANEL CO2 23 24 - 32 05/13 [facility] CHEM PANEL Calcium Lvl 9.4 8.5 - 10.5 05/13 [facility] CHEM PANEL Potassium 4.9 3.5 - 5.1 05/13 [facility] CHEM PANEL Sodium Lvl 135 135 - 145 05/13 [facility] CHEM PANEL Glucose Lvl 83 70 - 99 05/13 <sup>4</sup>I nterpretive Medical Data: Adult Center reference range values reflect the clinical guidelines
of the [employer] [employer]. CHEM PANEL Creatinine 0.8 0.5 - 1.4 05/13 [facility] CHEM PANEL BUN 11 7 - 22 05/13 [facility] CHEM PANEL Chloride Lvl 100 95 - 109 05/13 [facility] CHEM PANEL AGAP 16.9 10.0 - 05/13 [place] 20.0 [facility] HEMATOLOGY Eosinophils 0.3 0.0 - 0.5 05/13 a s # [facility] HEMATOLOGY Monocytes # 1.3 0.0 - 0.8 05/13 [facility] HEMATOLOGY Lymphocytes 1.2 1.0 - 5.5 05/13 a s # [facility] HEMATOLOGY Segs-Bands # 6.4 1.5 - 8.1 05/13 [facility] HEMATOLOGY Basophils 0.4 0.0 - 1.0 05/13 [facility] HEMATOLOGY Eosinophils 3.1 0.0 - 4.0 05/13 [facility] HEMATOLOGY Segs 69.3 45.0 - 05/13 [place] 75.0 [facility] HEMATOLOGY Monocytes 14.0 2.0 - 12.0 05/13 [facility] HEMATOLOGY Lymphocytes 13.2 20.0 - 05/13 [place] 40.0 /2013 [facility] HEMATOLOGY Hgb 12.8 14.0 - 05/13 [place] 18.0 [facility] HEMATOLOGY RBC 4.62 4.70 - 05/13 [place] 6. [facility] HEMATOLOGY MCV 86.0 80.0 - 05/13 [place] 94.0 /2013 [facility] HEMATOLOGY Hct 39.7 42.0 - 05/13 [place] 54.0 [facility] HEMATOLOGY Platelet 222 133 - 450 05/13 [facility] HEMATOLOGY RDW 14.3 11.5 - 05/13 [place] 14.5 [facility] HEMATOLOGY MCHC 32.3 32.0 - 05/13 [place] 36.0 [facility] HEMATOLOGY MCH 27.7 27.0 - 05/13 [place] 31.0 [facility] HEMATOLOGY MPV 8.9 7.4 - 10.4 05/13 [facility] HEMATOLOGY WBC 9.2 3.7 - 10.4 05/13 [facility] CARDIAC CK MB Index 0.3 0.0 - 2.5 05/12 ENZYMES [facility] CARDIAC CK MB 1.2 0.5 - 3.6 05/12 [facility] ENZYMES [facility] CARDIAC Total CK 400 12 - 191 05/12 [facility] ENZYMES [facility] CARDIAC Troponin-I <0.02 0.00 - 05/12 [facility] ENZYMES 0.40 [facility] CHEM PANEL Magnesium 2.2 1.8 - 2.4 05/12 [facility] Lvl [facility] CHEM PANEL eGFR 118 05/12 <sup>2</sup>R [place] [facility] Medical Comment: The Center eGFR is calculated using the CKD-EPI formula. In most young, healthy individuals the eGFR will be >90 mL/min/1.73m2 . The eGFR declines with age. An eGFR of 60-89 may be normal in some populations, particularly the elderly, for whom the CKD-EPI formula has not been extensively validated. Use of the eGFR is not recommended in the following populations:& lt;br/>
I ndividuals with unstable creatinine concentration s, including patients and those with serious co-morbid conditions.<b r/>
Patie nts with extremes in muscle mass or diet.

The data above are obtained from the National Kidney Disease Education Program (NKDEP) which additionally recommends that when the eGFR is used in patients with extremes of body mass index for purposes of drug dosing, the eGFR should be multiplied by the estimated BMI. CHEM PANEL Calcium Lvl 9.1 8.5 - 10.5 05/12 [facility] CHEM PANEL CO2 25 24 - 32 05/12 [facility] CHEM PANEL Chloride Lvl 101 95 - 109 05/12 [facility] CHEM PANEL Potassium 4.1 3.5 - 5.1 05/12 [facility] CHEM PANEL Sodium Lvl 137 135 - 145 05/12 [facility] CHEM PANEL Creatinine 0.9 0.5 - 1.4 05/12 [facility] CHEM PANEL BUN 6 7 - 22 05/12 [facility] CHEM PANEL Glucose Lvl 89 70 - 99 05/12 <sup>5</sup>I nterpretive Medical Data: Adult Center reference range values reflect the clinical guidelines
of the [employer]. CHEM PANEL AGAP 15.1 10.0 - 05/12 20.0 [facility] CHEM PANEL Phosphorus 4.6 2.5 - 4.5 05/12 [facility] HEMATOLOGY MCH 28.3 27.0 - 05/12 31.0 [facility] HEMATOLOGY MCHC 33.1 32.0 - 05/12 [place] 36.0 [facility] HEMATOLOGY RDW 14.2 11.5 - 05/12 [place] 14.5 [facility] HEMATOLOGY Platelet 231 133 - 450 05/12 [facility] HEMATOLOGY MPV 9.5 7.4 - 10.4 05/12 [facility] HEMATOLOGY WBC 8.9 3.7 - 10.4 05/12 [facility] HEMATOLOGY Hgb 12.6 14.0 - 05/12 [place] 18.0 [facility] HEMATOLOGY MCV 85.3 80.0 - 05/12 [place] 94.0 [facility] HEMATOLOGY Hct 38.1 42.0 - 05/12 [place] 54.0 [facility] HEMATOLOGY RBC 4.47 4.70 - 10/11 [place] 6.10 [facility] HEMATOLOGY Monocytes # 0.9 0.0 - 0.8 05/12 [place] [facility] HEMAT[place]Y Lymphocytes 1.3 1.0 - 5.5 05/12 [place] [facility] [facility] HEMATOLOGY Eosinophils 1.9 0.0 - 4.0 05/12 [place] [facility] [place] HEMATOLOGY Segs-Bands # 6.5 1.5 - 8.1 05/12 [facility] HEMATOLOGY Basophils 0.4 0.0 - 1.0 05/12 [facility] HEMATOLOGY Segs 72.9 45.0 - 05/12 [place] 75.0 [facility] HEMATOLOGY Monocytes 9.8 2.0 - 12.0 05/12 [facility] HEMATOLOGY Lymphocytes 15.0 20.0 - 05/12 [place] 40.0 [facility] HEMATOLOGY Eosinophils 0.2 0.0 - 0.5 05/12 [place] [facility] IMMUNOLOGY [place]-Hep C Negative Negative 05/12 [facility] *NA* /2013 Medical (05/12/14 3:01 AM) [facility] CARDIAC Total CK 447 12 - 191 05/11 [place] ENZYMES [facility] CARDIAC CK MB 2.2 0.5 - 3.6 05/11 [place] ENZYMES [facility] CARDIAC CK MB Index 0.5 0.0 - 2.5 05/11 [place] [facility] CARDIAC Troponin-T <0.010 0.000 - 05/11 [place] ENZYMES 0. [facility] CARDIAC Troponin-I <0.02 0.00 - 05/11 [place] [facility] 0.40 [facility] CARDIAC Troponin-I <0.02 0.00 - 05/11 [place] [facility] 0.40 [facility] CARDIAC Troponin-T <0.010 0.000 - 05/11 [place] ENZYMES 0.100 [facility] CARDIAC Total CK 455 12 - 191 05/11 [place] [facility] CARDIAC CK MB Index 0.5 0.0 - 2.5 05/11 [place] [facility] CARDIAC CK MB 2.2 0.5 - 3.6 05/11 [place] [facility] CHEM PANEL Phosphorus 2.9 2.5 - 4.5 05/11 [facility] CHEM PANEL Magnesium 2.0 1.8 - 2.4 05/11 [facility] Lvl /2013 [facility] CARDIAC Troponin-T <0.010 0.000 - 05/11 [facility] ENZYMES 0.100 [facility] TOXICOLOGY Vanco Tr 11.9 05/11 <sup>7</sup>I nterpretive Medical Data: Center Therapeutic Range:
Trough: 10 - 20 ug/mL
Peak: 20 - 40 ug/mL
Potential Toxicity: >80 ug/mL TOXICOLOGY Jennifero Tr TND 21:30 05/11 [facility] ELECTROLYT AGAP 13.9 10.0 - 05/11 [facility] ES 20.0 [facility] ELECTROLYT eGFR 104 05/11 <sup[facility]</sup[facility] Medical Comment: The Center eGFR is calculated using the CKD-EPI formula. In most young, healthy individuals the eGFR will be >90 mL/min/1.73m2 . The eGFR declines with age. An eGFR of 60-89 may be normal in some populations, particularly the elderly, for whom the CKD-EPI formula has not been extensively validated. Use of the eGFR is not recommended in the following populations:& lt;br/>
I ndividuals with unstable creatinine concentration s, including patients and those with serious co-morbid conditions.<b r/>
Patie nts with extremes in muscle mass or diet.

The data above are obtained from the National Kidney Disease Education Program (NKDEP) which additionally recommends that when the eGFR is used in patients with extremes of body mass index for purposes of drug dosing, the eGFR should be multiplied by the estimated BMI. ELECTROLYT BUN 9 7 - 22 05/11 [facility] ELECTROLYT Glucose Lvl 106 70 - 99 05/11 <sup>6</sup>I [facility] nterpretive Medical Data: [facility] Center reference range values reflect the clinical guidelines
of the [place] [employer]. ELECTROLYT Calcium Lvl 8.6 8.5 - 10.5 05/11 [facility] ELECTROLYT CO2 25 24 - 32 05/11 [facility] ELECTROLYT Sodium Lvl 140 135 - 145 05/11 [facility] ELECTROLYT Creatinine 1.0 0.5 - 1.4 05/11 [facility] Lvl [facility] ELECTROLYT Potassium 3.9 3.5 - 5.1 05/11 [place] [facility] L[facility] ELECTROLYT Chloride Lvl 105 95 - 109 05/11 a s [facility] HEMATOLOGY Segs 79.8 45.0 - 05/11 [place] 75.0 [facility] HEMATOLOGY Lymphocytes 10.5 20.0 - 05/11 [place] 40.0 [facility] HEMATOLOGY Monocytes 7.4 2.0 - 12.0 05/11 [facility] HEMATOLOGY Eosinophils 2.0 0.0 - 4.0 05/11 [facility] HEMATOLOGY Basophils 0.3 0.0 - 1.0 05/11 [facility] HEMATOLOGY Lymphocytes 1.0 1.0 - 5.5 05/11 [place] [facility] HEMATOLOGY Segs-Bands # 7.4 1.5 - 8.1 05/11 [facility] HEMATOLOGY Monocytes # 0.7 0.0 - 0.8 05/11 [facility] HEMATOLOGY Eosinophils 0.2 0.0 - 0.5 05/11 a s # [facility] HEMATOLOGY MPV 9.3 7.4 - 10.4 05/11 [facility] HEMATOLOGY Platelet 200 133 - 450 05/11 [facility] HEMATOLOGY WBC 9.3 3.7 - 10.4 05/11 Medical Center HEMATOLOGY RBC 4.19 4.70 - 05/11 [place] 6.10 [facility] HEMATOLOGY Hgb 11.8 14.0 - 05/11 18.0 Medical Center HEMATOLOGY MCV 86.3 80.0 - 05/11 [place] 94.0 [facility] HEMATOLOGY Hct 36.2 42.0 - 05/11 [place] 54.0 [facility] [place] HEMATOLOGY MCH 28.2 27.0 - 05/11 [place] 31.0 [facility] [place] HEMATOLOGY RDW 14.6 11.5 - 05/11 [place] 14.5 [facility] HEMATOLOGY MCHC 32.7 32.0 - 05/11 [facility] [place] 36.0 /2013 [facility] TOXICOLOGY Vanco Tr TND 130am 05/11 [facility] TOXICOLOGY Vanco Tr 2.6 05/11 <sup>8</sup>I [facility] nterpretive Medical Data: Center Therapeutic Range:
Trough: 10 - 20 ug/mL
Peak: 20 - 40 ug/mL
Potential Toxicity: >80 ug/mL CHEM PANEL Lactic Acid 2.2 0.5 - 2.2 05/08 Lvl [facility] CHEM PANEL Globulin 3.5 2.0 - 4.0 05/08 [facility] CHEM PANEL A/G Ratio 1.0 0.7 - 1.6 05/08 [facility] CHEM PANEL AGAP 14.4 10. - 05/08 . [facility] CHEM PANEL B/C Ratio 9 6 - 25 05/08 [facility] CHEM PANEL eGFR 104 05/08 <sup>1</sup>R esult [facility] Comment: The eGFR is calculated using the CKD-EPI formula. In most young, healthy individuals the eGFR will be >90 mL/min/1.73m2 . The eGFR declines with age. An eGFR of 60-89 may be normal in some populations, particularly the elderly, for whom the CKD-EPI formula has not been extensively validated. Use of the eGFR is not recommended in the following populations:& lt;br/>
I ndividuals with unstable creatinine concentration s, including patients and those with serious co-morbid conditions.<b r/>
Patie nts with extremes in muscle mass or diet.

The data above are obtained from the National Kidney Disease Education Program (NKDEP) which additionally recommends that when the eGFR is used in patients with extremes of body mass index for purposes of drug dosing, the eGFR should be multiplied by the estimated BMI. CHEM PANEL Alk Phos 75 39 - 136 05/08 [facility] CHEM PANEL Bili Total 0.2 0.2 - 1.3 05/08 [facility] CHEM PANEL Glucose Lvl 123 70 - 99 05/08 <sup>2</sup>I nterpretive [facility] Data: Adult reference range values reflect the clinical guidelines
of the [employer] [employer]. CHEM PANEL Sodium Lvl 142 135 - 145 05/08 [facility] CHEM PANEL Creatinine 1.0 0.5 - 1.4 05/08 Lvl [facility] CHEM PANEL Potassium 3.4 3.5 - 5.1 05/08 Lv [facility] CHEM PANEL BUN 9 7 - 22 05/08 [facility] CHEM PANEL Albumin Lvl 3.6 3.5 - 5.0 05/08 [facility] CHEM PANEL ALT 23 0 - 65 05/08 [facility] CHEM PANEL AST 23 0 - 37 05/08 [facility] CHEM PANEL Calcium Lvl 8.4 8.5 - 10.5 05/08 [facility] CHEM PANEL Chloride Lvl 104 95 - 109 05/08 [facility] CHEM PANEL CO2 27 24 - 32 05/08 [facility] CHEM PANEL Total 7.1 6.4 - 8.4 05/08 [facility] CHEM PANEL Procalcitoni <0.05 0.00 - 05/08 n Lvl ng/mL 0. [facility] HEMATOLOGY PTT 32.9 22.9 - 05/08 <sup>4</sup>I 35.8 nterpretive [facility] Data: Heparin Therapeutic Range: 57 - 92 [facility] HEMATOLOGY PT 13.0 12.0 - 05/08 14.7 [facility] HEMATOLOGY INR 0.98 0.85 - 05/08 <sup>3</sup>I 1.17 nterpretive [facility] Data: RECOMMENDED RANGES FOR PROTIME INR:
2.0-3.0 for most medical and surgical thromboemboli c states.
2.5-3.5 for artificial heart valves and recurrent embolism.<br/ >
INR SHOULD BE USED ONLY FOR PATIENTS ON STABLE ANTICOAGULANT THERAPY. HEMATOLOGY MCH 28.5 27.0 - 05/08 31.0 /2013 [facility] HEMATOLOGY MCV 85.0 80.0 - 05/08 94.0 /2013 [facility] HEMATOLOGY Hct 36.8 42.0 - 05/08 54.0 /2013 [facility] HEMATOLOGY WBC 8.6 3.7 - 10.4 05/08 [facility] HEMATOLOGY Hgb 12.3 14.0 - 05/08 18.0 /2013 [facility] HEMATOLOGY RBC 4.33 4.70 - 05/08 [facility] 6.10 [facility] HEMATOLOGY Platelet 193 133 - 450 05/08 [facility] HEMATOLOGY RDW 14.3 11.5 - 10 [facility] 14.5 /2013 [facility] HEMATOLOGY MCHC 33.6 32.0 - 05/08 36.0 /2013 [facility] HEMATOLOGY MPV 8.9 7.4 - 10.4 05/08 [facility] HEMATOLOGY Eosinophils 2.5 0.0 - 4.0 05/08 [facility] HEMATOLOGY Basophils 0.5 0.0 - 1.0 05/08 [facility] HEMATOLOGY Segs-Bands # 5.9 1.5 - 8.1 05/08 [facility] HEMATOLOGY Lymphocytes 1.7 1.0 - 5.5 05/08 # /2013 [facility] HEMATOLOGY Monocytes # 0.7 0.0 - 0.8 05/08 [facility] HEMATOLOGY Eosinophils 0.2 0.0 - 0.5 05/08 # /2013 [facility] HEMATOLOGY Lymphocytes 20.2 20.0 - 05/08 40.0 /2013 [facility] HEMATOLOGY Monocytes 8.2 2.0 - 12.0 05/08 [facility] HEMATOLOGY Segs 68.6 45.0 - 05/08 75.0 /2013 [facility] CARDIAC Total CK 360 12 - 191 02/09 ENZYMES /2013 [facility] CHEM PANEL Magnesium 2.0 1.8 - 2.4 02/09 Lvl /2013 [facility] CHEM PANEL Uric Acid 6.4 3.8 - 8.0 02/09 [facility] ELECTROLYT AGAP 9.6 10.0 - 02/09 [facility] 20.0 [facility] ELECTROLYT eGFR 104 02/09 <sup>1</sup>R esult [facility] Comment: The eGFR is calculated using the CKD-EPI formula. In most young, healthy individuals the eGFR will be >90 mL/min/1.73m2 . The eGFR declines with age. An eGFR of 60-89 may be normal in some populations, particularly the elderly, for whom the CKD-EPI formula has not been extensively validated. Use of the eGFR is not recommended in the following populations:& lt;br/>
I ndividuals with unstable creatinine concentration s, including patients and those with serious co-morbid conditions.<b r/>
Patie nts with extremes in muscle mass or diet.

The data above are obtained from the National Kidney Disease Education Program (NKDEP) which additionally recommends that when the eGFR is used in patients with extremes of body mass index for purposes of drug dosing, the eGFR should be multiplied by the estimated BMI. ELECTROLYT Calcium Lvl 8.9 8.5 - 10.5 / MH ES /2013 [facility] ELECTROLYT Creatinine 1.0 0.5 - 1.4 02/09 [facility] Lvl /2013 [facility] ELECTROLYT Chloride Lvl 103 95 - 109 02/09 [facility] ES /2013 [place] ELECTROLYT CO2 32 24 - 32 / ES /2013 [place] ELECTROLYT Sodium Lvl 141 135 - 145 02/09 ES /2013 [place] ELECTROLYT Potassium 3.6 3.5 - 5.1 02/09 [facility] [place] ELECTROLYT BUN 13 7 - 22 02/09 [facility] /2013 [place] ELECTROLYT Glucose Lvl 91 70 - 99 02/09 <sup>4</sup>I nterpretive [facility] Data: Adult reference range values reflect the clinical guidelines
of the [employer]. HEMATOLOGY WBC 5.7 3.7 - 10.4 02/09 /2013 [facility] HEMATOLOGY RBC 4.40 4.70 - 02/09 [facility] 6.10 /2013 [facility] HEMATOLOGY MPV 8.8 7.4 - 10.4 02/09 /2013 [facility] HEMATOLOGY RDW 14.0 11.5 - 07/ 14.5 /2013 [facility] HEMATOLOGY Platelet 185 133 - 450 02/09 /2013 [facility] HEMATOLOGY MCV 85.9 80.0 - 02/09 94.0 /2013 [facility] HEMATOLOGY MCH 28.1 27.0 - 02/09 [facility] 31.0 /2013 [facility] HEMATOLOGY MCHC 32.7 32.0 - 07/ MH 36.0 /2013 [facility] HEMATOLOGY Hgb 12.4 14.0 - 02/09 [facility] 18.0 /2013 [facility] HEMATOLOGY Hct 37.8 42.0 - 02/09 [facility] 54.0 /2014 [facility] HEMATOLOGY Monocytes # 0.8 0.0 - 0.8 / MH /2013 [facility] HEMATOLOGY Eosinophils 0.2 0.0 - 0.5 /11 MH # /2014 [facility] HEMATOLOGY Lymphocytes 1.6 1.0 - 5.5 /11 MH # /2013 [facility] HEMATOLOGY Segs-Bands # 3.2 1.5 - 8.1 02/09 [facility] HEMATOLOGY Eosinophils 3.0 0.0 - 4.0 02/09 [facility] HEMATOLOGY Basophils 0.3 0.0 - 1.0 02/09 [facility] HEMATOLOGY Monocytes 13.5 2.0 - 12.0 02/09 [facility] HEMATOLOGY Lymphocytes 27.9 20.0 - 02/09 [facility] 40.0 [facility] HEMATOLOGY Segs 55.3 45.0 - 02/09 75.0 [facility] URINE CHEM U Protein 23.7 02/09 <sup>8</sup>I nterpretive [facility] Data: No established reference ranges. URINE CHEM U Creatinine 185.2 02/09 <sup>7</sup>I nterpretive [facility] Data: No established reference ranges. URINE CHEM U Sodium 67 02/09 <sup>9</sup>I nterpretive [facility] Data: No established reference ranges. URINE CHEM U Prot/Creat 0.1 02/09 [facility] CARDIAC Total CK 496 12 - 191 02/08 [facility] CHEM PANEL eGFR 83 02/08 <sup>2</sup>R esult [facility] Comment: The eGFR is calculated using the CKD-EPI formula. In most young, healthy individuals the eGFR will be >90 mL/min/1.73m2 . The eGFR declines with age. An eGFR of 60-89 may be normal in some populations, particularly the elderly, for whom the CKD-EPI formula has not been extensively validated. Use of the eGFR is not recommended in the following populations:& lt;br/>
I ndividuals with unstable creatinine concentration s, including patients and those with serious co-morbid conditions.<b r/>
Patie nts with extremes in muscle mass or diet.

The data above are obtained from the National Kidney Disease Education Program (NKDEP) which additionally recommends that when the eGFR is used in patients with extremes of body mass index for purposes of drug dosing, the eGFR should be multiplied by the estimated BMI. CHEM PANEL Sodium Lvl 138 135 - 145 02/08 [facility] CHEM PANEL Creatinine 1.2 0.5 - 1.4 02/08 Lvl [facility] CHEM PANEL BUN 18 7 - 22 02/08 [facility] CHEM PANEL Glucose Lvl 100 70 - 99 02/08 <sup>5</sup>I nterpretive [facility] Data: Adult reference range values reflect the clinical guidelines
of the [employer]. CHEM PANEL Calcium Lvl 8.9 8.5 - 10.5 02/08 [facility] CHEM PANEL CO2 32 24 - 32 02/08 [facility] CHEM PANEL Potassium 3.6 3.5 - 5.1 02/08 [facility] CHEM PANEL AGAP 9.6 10.0 - 07 [facility] 20.0 /2013 [facility] CHEM PANEL Chloride Lvl 100 95 - 109 02/08 [facility] CHEM PANEL Uric Acid 7.8 3.8 - 8.0 02/08 [facility] CHEM PANEL Magnesium 2.2 1.8 - 2.4 02/08 [facility] HEMATOLOGY Platelet 185 133 - 450 02/08 [facility] HEMATOLOGY MCHC 33.0 32.0 - 02/08 36.0 /2013 [facility] HEMATOLOGY MCV 85.4 80.0 - 02/08 94.0 /2013 [facility] HEMATOLOGY MCH 28.2 27.0 - 07 31.0 /2013 [facility] HEMATOLOGY Hct 39.5 42.0 - 07 54.0 /2013 [facility] HEMATOLOGY RDW 13.9 11.5 - 07 14.5 /2013 [facility] HEMATOLOGY MPV 8.7 7.4 - 10.4 02/08 [facility] HEMATOLOGY Hgb 13.0 14.0 - 02/08 18.0 /2013 [facility] HEMATOLOGY RBC 4.62 4.70 - 0710 MH 6.10 /2013 [facility] HEMATOLOGY WBC 5.7 3.7 - 10.4 02/08 [facility] HEMATOLOGY Lymphocytes 24.2 20.0 - 07 MH 40.0 /2013 [facility] HEMATOLOGY Segs 59.5 45.0 - 07 MH 75.0 /2013 [facility] HEMATOLOGY Basophils 0.3 0.0 - 1.0 02/08 [facility] HEMATOLOGY Monocytes 12.9 2.0 - 12.0 02/08 [facility] HEMATOLOGY Eosinophils 3.1 0.0 - 4.0 02/08 [facility] HEMATOLOGY Segs-Bands # 3.4 1.5 - 8.1 02/08 [place] HEMATOLOGY Lymphocytes 1.4 1.0 - 5.5 07/10 # /2013 [facility] HEMATOLOGY Monocytes # 0.7 0.0 - 0.8 02/08 /2013 [facility] HEMATOLOGY Eosinophils 0.2 0.0 - 0.5 02/08 # /2013 [facility] URINE AND Micro? Performed 02/07 [facility] (02/07/14 12:00 PM) /2013 [facility] [facility] URINE AND UA Hyal Cast 51-100 0 - 2 02/07 [facility] (02/07/14 12:00 PM) /2013 [facility] URINE AND UA RBC 0-2 /HPF 0 - 2 02/07 [facility] /2013 [facility] URINE AND UA Sq Epi None Seen Few 02/07 [facility] (02/07/14 12:00 PM) /2013 [facility] URINE AND UA WBC 3-5 /HPF None Seen 02/07 [facility] /HPF /2013 [facility] URINE AND UA Bacteria Occasional None Seen 02/07 [facility]OOL /HPF /HPF /2013 [facility] URINE AND UA Ketones Trace Negative 02/07 [facility] *ABN* /2013 [facility] (02/07/14 12:00 PM) URINE AND UA Bili Small Negative 02/07 [facility] *ABN* /2013 [facility] (02/07/14 12:00 PM) URINE AND UA 0.2 0.1 - 1.0 02/07 STOOL Urobilinogen /2013 [facility] URINE AND UA Blood Negative Negative 02/07 [facility] (02/07/14 12:00 PM) [facility]INE AND UA Leuk Est Negative Negative 02/07 [facility] (02/07/14 12:00 PM) [facility] URINE AND UA Nitrite Negative Negative 02/07 [facility] (02/07/14 12:00 PM) [facility] URINE AND UA Color Yellow Yellow 02/07 [facility] *NA* /2013 [facility] (02/07/14 12:00 PM) URINE AND UA Turbidity Clear Clear 02/07 [facility] (02/07/14 12:00 PM) /2013 [facility] URINE AND UA Spec Grav 1.025 <=1.030 02/07 STOOL /2013 [facility] URINE AND UA pH 6.0 5.0 - 8.0 02/07 [facility] [place] URINE AND UA Protein Trace Negative 02/07 STOOL *ABN* /2013 [facility] (02/07/14 12:00 PM) URINE AND UA Glucose Negative Negative 02/07 [facility] (02/07/14 12:00 PM) /2013 [facility] CARDIAC CK MB Index 0.7 0.0 - 2.5 02/07 ENZYMES /2013 [facility] CARDIAC CK MB 5.2 0.5 - 3.6 02/07 ENZYMES [facility] CARDIAC Troponin-I <0.02 0.00 - 07 [facility]YMES 0.40 /2013 [place] [facility] CARDIAC Total CK 741 12 - 191 02/07 ENZYMES [facility] CHEM PANEL Lipase Lvl 102 73 - 393 02/07 [facility] CHEM PANEL eGFR 36 02/07 <sup>3</sup>R esult [facility] Comment: The eGFR is calculated using the CKD-EPI formula. In most young, healthy individuals the eGFR will be >90 mL/min/1.73m2 . The eGFR declines with age. An eGFR of 60-89 may be normal in some populations, particularly the elderly, for whom the CKD-EPI formula has not been extensively validated. Use of the eGFR is not recommended in the following populations:& lt;br/>
I ndividuals with unstable creatinine concentration s, including patients and those with serious co-morbid conditions.<b r/>
Patie nts with extremes in muscle mass or diet.

The data above are obtained from the National Kidney Disease Education Program (NKDEP) which additionally recommends that when the eGFR is used in patients with extremes of body mass index for purposes of drug dosing, the eGFR should be multiplied by the estimated BMI. CHEM PANEL AST 41 0 - 37 02/07 [facility] CHEM PANEL Alk Phos 95 39 - 136 02/07 [facility] CHEM PANEL Bili Total 0.8 0.2 - 1.3 02/07 [facility] CHEM PANEL CO2 27 24 - 32 02/07 [facility] CHEM PANEL Total 7.9 6.4 - 8.4 02/07 Protein [facility] CHEM PANEL Calcium Lvl 9.2 8.5 - 10.5 02/07 [facility] CHEM PANEL ALT 40 0 - 65 02/07 [facility] CHEM PANEL Albumin Lvl 4.1 3.5 - 5.0 02/07 [facility] CHEM PANEL Creatinine 2.4 0.5 - 1.4 02/07 Lvl [facility] CHEM PANEL BUN 26 7 - 22 /2013 [facility] CHEM PANEL Glucose Lvl 100 70 - 99 / <sup>6</sup>I /2013 nterpretive [facility] Data: Adult reference range values reflect the clinical guidelines
of the [employer]. CHEM PANEL Chloride Lvl 98 95 - 109 / /2013 [facility] CHEM PANEL Potassium 3.1 3.5 - 5.1 / MH Lvl /2013 [facility] CHEM PANEL Sodium Lvl 135 135 - 145 / /2013 [facility] CHEM PANEL Globulin 3.8 2.0 - 4.0 / /2013 [facility] CHEM PANEL B/C Ratio 11 6 - 25 / MH /2013 [facility] CHEM PANEL AGAP 13.1 10.0 - 07 MH 20.0 /2013 [facility] CHEM PANEL A/G Ratio 1.1 0.7 - 1.6 02/07 /2013 [facility] HEMATOLOGY RDW 13.9 11.5 - 02/07 MH 14.5 /2013 [facility] HEMATOLOGY MCHC 33.3 32.0 - 02/07 MH 36.0 /2013 [facility] HEMATOLOGY MPV 8.7 7.4 - 10.4 / MH /2013 [facility] HEMATOLOGY Platelet 236 133 - 450 07/ MH /2013 [facility] HEMATOLOGY MCH 28.3 27.0 - 02/07 MH 31.0 /2013 [facility] HEMATOLOGY MCV 84.9 80.0 - 02/07 MH 94.0 /2013 [facility] HEMATOLOGY Hct 43.9 42.0 - 02/07 MH 54.0 /2013 [facility] HEMATOLOGY WBC 8.4 3.7 - 10.4 / MH /2013 [facility] HEMATOLOGY RBC 5.18 4.70 - 02/07 MH 6.10 /2013 [facility] HEMATOLOGY Hgb 14.6 14.0 - 07/ MH 18.0 /2013 [facility] HEMATOLOGY Eosinophils 0.1 0.0 - 0.5 07/09 MH # /2014 [facility] HEMATOLOGY Segs-Bands # 5.7 1.5 - 8.1 / MH /2013 [facility] HEMATOLOGY Lymphocytes 1.5 1.0 - 5.5 /09 MH # /2013 [facility] HEMATOLOGY Monocytes # 1.0 0.0 - 0.8 / MH /2013 [facility] HEMATOLOGY Eosinophils 1.5 0.0 - 4.0 / MH /2013 [facility] HEMATOLOGY Segs 67.6 45.0 - 07/ MH 75.0 /2013 [facility] HEMATOLOGY Lymphocytes 18.4 20.0 - 02/07 MH 40.0 /2013 [facility] HEMATOLOGY Monocytes 11.9 2.0 - 12.0 02/07 [facility] HEMATOLOGY Basophils 0.6 0.0 - 1.0 02/07 [facility] IMMUNOLOGY [facility] HIV 4th Negative Negative 02/07 GEN (02/07/14 7:45 AM) [facility] CHEMISTRY Magnesium 2.3 1.8 - 2.4 07/21 Normal Lvl [facility] CHEMISTRY Phosphorus 4.4 2.5 - 4.5 07/21 Normal [facility] CHEMISTRY BNP 23 <=100 07/21 Normal <sup>11</sup> Interpretive [facility] Data: Elevated results are in line with increasing severity of
congesti ve heart failure. Minor elevations between 100 and 300
may be seen with Myocardial Ischemia, Sodium retaining drugs,
and compensated/t reated heart failure. CHEMISTRY eGFR 105 07/21 <sup>5</sup>R esult [facility] Comment: The eGFR is calculated using the CKD-EPI formula. In most young, healthy individuals the eGFR will be >90 mL/min/1.73m2 . The eGFR declines with age. An eGFR of 60-89 may be normal in some populations, particularly the elderly, for whom the CKD-EPI formula has not been extensively validated. Use of the eGFR is not recommended in the following populations:& lt;br/>
I ndividuals with unstable creatinine concentration s, including patients and those with serious co-morbid conditions.<b r/>
Patie nts with extremes in muscle mass or diet.

The data above are obtained from the National Kidney Disease Education Program (NKDEP) which additionally recommends that when the eGFR is used in patients with extremes of body mass index for purposes of drug dosing, the eGFR should be multiplied by the estimated BMI. CHEMISTRY BUN 16 7 - 22 07/21 Normal [facility] CHEMISTRY Creatinine 1.0 0.5 - 1.4 07/21 Normal [facility] CHEMISTRY Sodium Lvl 137 135 - 145 07/21 Normal [facility] CHEMISTRY Potassium 4.4 3.5 - 5.1 07/21 Normal Lvl [facility] CHEMISTRY Chloride Lvl 105 95 - 109 07/21 Normal MH /2012 [facility] CHEMISTRY CO2 24 24 - 32 12/ Normal MH /2012 [facility] CHEMISTRY Calcium Lvl 8.6 8.5 - 10.5 07/21 Normal MH /2012 [facility] CHEMISTRY Glucose Lvl 107 70 - 99 12/ HI <sup>8</sup>I /2012 nterpretive [facility] Data: Adult reference range values reflect the clinical guidelines
of the [employer]. CHEMISTRY AGAP 12.4 10.0 - 12 Normal MH 20.0 /2012 [facility] HEMATOLOGY RDW 14.3 11.5 - 12 Normal MH 14.5 /2012 [facility] HEMATOLOGY MCHC 32.8 32.0 - 12 Normal MH 36.0 /2012 [facility] HEMATOLOGY MCH 28.3 27.0 - 12 Normal MH 31.0 /2012 [facility] HEMATOLOGY MCV 86.4 80.0 - 07/21 Normal MH 94.0 /2012 [facility] HEMATOLOGY Platelet 243 133 - 450 07/21 Normal MH /2012 [facility] HEMATOLOGY MPV 10.0 7.4 - 10.4 07/21 Normal MH /2012 [facility] HEMATOLOGY WBC X 10x3 11.1 3.7 - 10.4 / HI MH /2012 [facility] HEMATOLOGY Hgb 12.3 14.0 - 07/21 LOW MH 18.0 /2012 [facility] HEMATOLOGY RBC X 10x6 4.33 4.70 - 07/21 LOW MH 6.10 /2012 [facility] HEMATOLOGY Hct 37.4 42.0 - 07/21 LOW MH 54.0 /2012 [facility] HEMATOLOGY Monocytes 7.1 2.0 - 12.0 07/21 Normal MH /2012 [facility] HEMATOLOGY Eosinophils 4.6 0.0 - 4.0 / HI MH /2012 [facility] HEMATOLOGY Lymphocytes 12.1 20.0 - 12 LOW MH 40.0 /2012 [facility] HEMATOLOGY Segs 75.8 45.0 - 12 HI MH 75.0 /2012 [facility] HEMATOLOGY Lymphocytes 1.3 1.0 - 5.5 07/21 Normal MH # /2012 [facility] HEMATOLOGY Segs-Bands # 8.4 1.5 - 8.1 07/21 HI MH /2012 [facility] HEMATOLOGY Monocytes # 0.8 0.0 - 0.8 07/21 Normal MH /2012 [facility] HEMATOLOGY Eosinophils 0.5 0.0 - 0.5 07/21 Normal MH # /2012 [facility] HEMATOLOGY Basophils # 0.0 0.0 - 0.2 07/21 Normal [facility] HEMATOLOGY Basophils 0.4 0.0 - 1.0 07/21 Normal [facility] CHEMISTRY Vanco Tr TND See eMAR 07/20 [facility] CHEMISTRY Vanco Tr 19.3 07/20 <sup>14</sup> Interpretive [facility] Data: Therapeutic Range:
Trough: 10 - 20 ug/mL
Peak: 20 - 40 ug/mL
Potential Toxicity: >80 ug/mL CHEMISTRY Magnesium 2.5 1.8 - 2.4 07/20 HI MH Lvl [facility] CHEMISTRY eGFR 105 07/20 <sup>6</sup>R esult [facility] Comment: The eGFR is calculated using the CKD-EPI formula. In most young, healthy individuals the eGFR will be >90 mL/min/1.73m2 . The eGFR declines with age. An eGFR of 60-89 may be normal in some populations, particularly the elderly, for whom the CKD-EPI formula has not been extensively validated. Use of the eGFR is not recommended in the following populations:& lt;br/>
I ndividuals with unstable creatinine concentration s, including patients and those with serious co-morbid conditions.<b r/>
Patie nts with extremes in muscle mass or diet.

The data above are obtained from the National Kidney Disease Education Program (NKDEP) which additionally recommends that when the eGFR is used in patients with extremes of body mass index for purposes of drug dosing, the eGFR should be multiplied by the estimated BMI. CHEMISTRY ALANINE 25 0 - 65 07/20 Normal AMINOTRANSFE [facility] RASE CHEMISTRY Calcium Lvl 8.5 8.5 - 10.5 07/20 Normal [facility] CHEMISTRY Albumin Lvl 3.4 3.5 - 5.0 07/20 LOW MH [facility] CHEMISTRY Total 7.0 6.4 - 8.4 07/20 Normal Protein [facility] CHEMISTRY ASPARTATE 25 0 - 37 07/20 Normal TRANSAMINASE [facility] CHEMISTRY Alk Phos 78 39 - 136 07/20 Normal [facility] CHEMISTRY Creatinine 1.0 0.5 - 1.4 07/20 Normal l [facility] CHEMISTRY Potassium 3.8 3.5 - 5.1 07/20 Normal MH Lvl /2012 [facility] CHEMISTRY Sodium Lvl 138 135 - 145 07/20 Normal /2012 [facility] CHEMISTRY CO2 24 24 - 32 07/20 Normal /2012 [facility] CHEMISTRY Chloride Lvl 104 95 - 109 07/20 Normal /2012 [facility] CHEMISTRY BUN 16 7 - 22 07/20 Normal /2012 [facility] CHEMISTRY Glucose Lvl 104 70 - 99 07/20 HI <sup>9</sup>I /2012 nterpretive [facility] Data: Adult reference range values reflect the clinical guidelines
of the [employer]. CHEMISTRY Bili Total 0.4 0.2 - 1.3 07/20 Normal /2012 [facility] CHEMISTRY A/G Ratio 0.9 0.7 - 1.6 07/20 Normal /2012 [facility] CHEMISTRY AGAP 13.8 10.0 - 07/20 Normal MH 20.0 [facility] CHEMISTRY B/C Ratio 16 6 - 25 07/20 Normal /2012 [facility] CHEMISTRY Globulin 3.6 2.0 - 4.0 07/20 Normal /2012 [facility] CHEMISTRY BNP 34 <=100 07/20 Normal <sup>12</sup> /2012 Interpretive [facility] Data: Elevated results are in line with increasing severity of
congesti ve heart failure. Minor elevations between 100 and 300
may be seen with Myocardial Ischemia, Sodium retaining drugs,
and compensated/t reated heart failure. CHEMISTRY Phosphorus 3.4 2.5 - 4.5 07/20 Normal /2012 [facility] HEMATOLOGY Lymphocytes 1.8 1.0 - 5.5 07/20 Normal MH # /2013 [facility] HEMATOLOGY Segs-Bands # 7.4 1.5 - 8.1 07/20 Normal /2012 [facility] HEMATOLOGY Eosinophils 4.8 0.0 - 4.0 / HI /2012 [facility] HEMATOLOGY Basophils 0.4 0.0 - 1.0 / Normal /2012 [facility] HEMATOLOGY Eosinophils 0.5 0.0 - 0.5 / Normal MH # /2012 [facility] HEMATOLOGY Monocytes # 1.0 0.0 - 0.8 / HI /2012 [facility] HEMATOLOGY Basophils # 0.0 0.0 - 0.2 / Normal /2012 [facility] HEMATOLOGY Lymphocytes 16.5 20.0 - 12/ LOW MH 40.0 /2013 [facility] HEMATOLOGY Monocytes 9.0 2.0 - 12.0 07/20 Normal MH /2012 [facility] HEMATOLOGY Segs 69.3 45.0 - 07/20 Normal MH 75.0 /2012 [facility] HEMATOLOGY MPV 9.9 7.4 - 10.4 07/20 Normal MH /2012 [facility] HEMATOLOGY Platelet 227 133 - 450 07/20 Normal MH /2012 [facility] HEMATOLOGY RDW 14.1 11.5 - 07/20 Normal MH 14.5 /2012 [facility] HEMATOLOGY MCH 28.0 27.0 - 07/20 Normal MH 31.0 /2012 [facility] HEMATOLOGY MCHC 31.9 32.0 - 07/20 LOW MH 36.0 /2012 [facility] HEMATOLOGY MCV 87.6 80.0 - 07/20 Normal MH 94.0 /2012 [facility] HEMATOLOGY WBC X 10x3 10.7 3.7 - 10.4 07/20 HI MH /2012 [facility] HEMATOLOGY RBC X 10x6 4.38 4.70 - 07/20 LOW MH 6.10 [facility] HEMATOLOGY Hgb 12.2 14.0 - 07/20 LOW MH 18.0 [facility] HEMATOLOGY Hct 38.4 42.0 - 07/20 LOW MH 54.0 [facility] CHEMISTRY Mode Art Rm Air 07/20 Normal MH (07/20/2013 04:40:58) /2012 [facility] CHEMISTRY pCO2 Art 33 35 - 45 07/20 LOW MH /2012 [facility] CHEMISTRY pH Art 7.44 7.35 - 07/20 Normal MH 7.45 /2012 [facility] CHEMISTRY BE Art -1 -2-2 - 2 07/20 Normal MH /2012 [facility] CHEMISTRY HCO3 Art 22 22 - 26 07/20 Normal MH /2012 [facility] CHEMISTRY pO2 Art 83 80 - 100 07/20 Normal MH [facility] CHEMISTRY Allens Art Positive 07/20 Normal MH (07/20/2013 04:40:58) No [facility] CHEMISTRY Temp Art 37.0 07/20 MH [facility] CHEMISTRY Site Art Left Rad 07/20 Normal MH (07/20/2013 04:40:58) No [facility] CHEMISTRY O2 Sat Art 96.6 95.0 - 07/20 Normal MH 100.0 [facility] IMMUNOLOGY TB - NIL 0.00 07/19 <sup>16</sup> Result [facility] Comment: The Nil tube value is used to determine if the patient
h as a preexisting immune response which could cause a
false-po sitive reading on the test. In order for a
test to be valid, the Nil tube must have a value of
less than or equal to 8.0 IU/mL.

The mitogen control tube is used to assure the patient
has a healthy immune status and also serves as a
control for correct blood handling and incubation. It
is used to detect false-negativ e readings. The mitogen
tube must have a gamma interferon value of greater
than or equal to 0.5 IU/mL higher than the value of
the Nil tube.

The TB antigen tube is coated with the M. tuberculosis< br/>specific antigens. For a test to be considered
positive , the TB antigen tube value minus the Nil tube
value must be greater than or equal to 0.35 IU/mL.<br/ >
For additional information, please refer to
[email or web address]<b r/>(This link is being provided for informational /
educati onal purposes only.)

Test Performed at:
[facility]<br/&g t;[address] [place] [address]
[place] [address] BENJIE BAUTISTA M.D. IMMUNOLOGY Mitogen - 0.10 07/19 NIL [facility] IMMUNOLOGY NIL 0.01 07/19 [facility] IMMUNOLOGY Quantiferon INDETERMIN NEGATIVE 07/19 ABN <sup>15</sup> MH - TB Gold Result [facility] Comment: Results are indeterminate for
response to ESAT-6,TB7.7 and/or
CFP-10 test antigens. CHEMISTRY Troponin-I 0.03 0.00 - 07/19 Normal MH 0.40 /2012 [facility] CHEMISTRY Total CK 456 12 - 191 07/19 HI [facility] CHEMISTRY CK-MB INDEX 0.5 0.0 - 2.5 07/19 Normal [facility] CHEMISTRY CK MB 2.2 0.5 - 3.6 07/19 Normal [facility] CHEMISTRY BNP 104 <=100 07/19 HI <sup>13</sup> MH Interpretive [facility] Data: Elevated results are in line with increasing severity of
congesti ve heart failure. Minor elevations between 100 and 300
may be seen with Myocardial Ischemia, Sodium retaining drugs,
and compensated/t reated heart failure. CHEMISTRY eGFR 81 07/19 <sup>7</sup>R esult [facility] Comment: The eGFR is calculated using the CKD-EPI formula. In most young, healthy individuals the eGFR will be >90 mL/min/1.73m2 . The eGFR declines with age. An eGFR of 60-89 may be normal in some populations, particularly the elderly, for whom the CKD-EPI formula has not been extensively validated. Use of the eGFR is not recommended in the following populations:& lt;br/>
I ndividuals with unstable creatinine concentration s, including patients and those with serious co-morbid conditions.<b r/>
Patie nts with extremes in muscle mass or diet.

The data above are obtained from the National Kidney Disease Education Program (NKDEP) which additionally recommends that when the eGFR is used in patients with extremes of body mass index for purposes of drug dosing, the eGFR should be multiplied by the estimated BMI. CHEMISTRY Calcium Lvl 8.7 8.5 - 10.5 07/19 Normal /2012 [facility] CHEMISTRY CO2 24 24 - 32 07/19 Normal [facility] CHEMISTRY AGAP 13.2 10.0 - 07/19 Normal 20.0 [facility] CHEMISTRY Potassium 3.2 3.5 - 5.1 07/19 LOW MH Lvl [facility] CHEMISTRY Chloride Lvl 104 95 - 109 07/19 Normal [facility] CHEMISTRY Creatinine 1.1 0.5 - 1.4 07/19 Normal Lvl [facility] CHEMISTRY BUN 14 7 - 22 07/19 Normal /2012 [facility] CHEMISTRY Glucose Lvl 116 70 - 99 07/19 HI <sup>10</sup> /2012 Interpretive [facility] Data: Adult reference range values reflect the clinical guidelines
of the [employer] [employer]. CHEMISTRY Sodium Lvl 138 135 - 145 07/19 Normal MH /2012 [facility] CHEMISTRY LDL 111 <=99 07/19 HI MH (Calculated) /2012 [facility] CHEMISTRY HDL 29 >=61 07/19 LOW MH /2012 [facility] CHEMISTRY Chol 156 <=199 12 Normal MH /2012 [facility] CHEMISTRY Trig 79 <=149 12/ Normal MH /2012 [facility] CHEMISTRY CHD Risk 5.38 4.00 - 07/19 Normal MH 7.30 /2012 [facility] CHEMISTRY Magnesium 1.7 1.8 - 2.4 07/19 LOW Lvl /2012 [facility] CHEMISTRY Phosphorus 3.2 2.5 - 4.5 07/19 Normal MH /2012 [facility] CHEMISTRY Lactic Acid 1.1 0.5 - 2.2 07/19 Normal MH Lvl /2012 [facility] HEMATOLOGY Hgb 12.6 14.0 - 07/19 LOW MH 18.0 /2012 [facility] HEMATOLOGY RBC X 10x6 4.49 4.70 - 07/19 LOW MH 6.10 /2012 [facility] HEMATOLOGY MPV 9.8 7.4 - 10.4 07/19 Normal MH /2012 [facility] HEMATOLOGY MCHC 32.5 32.0 - 07/19 Normal MH 36.0 /2012 [facility] HEMATOLOGY RDW 14.6 11.5 - 07/19 HI MH 14.5 /2012 [facility] HEMATOLOGY Hct 38.8 42.0 - 07/19 LOW MH 54.0 /2012 [facility] HEMATOLOGY Platelet 227 133 - 450 07/19 Normal MH /2012 [facility] HEMATOLOGY MCH 28.0 27.0 - 07/19 Normal MH 31.0 /2012 [facility] HEMATOLOGY MCV 86.4 80.0 - 07/19 Normal MH 94.0 /2012 [facility] HEMATOLOGY WBC X 10x3 15.7 3.7 - 10.4 / HI MH /2012 [facility] HEMATOLOGY PB Smear The CBC 07/19 Path and /2012 [facility] peripheral smear from 07/19/2013 , 0526 hours shows mild granulocyt osis without a significan t left shift, mild monocytosi s and mild normochrom ic normocytic anemia. No atypical or immature leukocytes are seen. No schistocyt es or spherocyte s are seen. Platelets are adequate. Simone Calderon M.D. 07/19/2013 , 1126 hours. HEMATOLOGY Monocytes 8.1 2.0 - 12.0 07/19 Normal MH /2012 [facility] HEMATOLOGY Eosinophils 0.3 0.0 - 0.5 07/19 Normal MH # /2013 [facility] HEMATOLOGY Basophils # 0.1 0.0 - 0.2 07/19 Normal MH /2012 [facility] HEMATOLOGY Monocytes # 1.3 0.0 - 0.8 / HI MH /2012 [facility] HEMATOLOGY Eosinophils 1.7 0.0 - 4.0 07/19 Normal MH /2012 [facility] HEMATOLOGY Lymphocytes 1.4 1.0 - 5.5 / Normal MH # /2013 [facility] HEMATOLOGY Basophils 0.4 0.0 - 1.0 07/19 Normal MH /2012 [facility] HEMATOLOGY Segs-Bands # 12.7 1.5 - 8.1 07/19 HI MH /2012 [facility] HEMATOLOGY Lymphocytes 8.8 20.0 - 07/19 LOW MH 40.0 /2012 [facility] HEMATOLOGY Segs 81.0 45.0 - 07/19 HI MH 75.0 /2012 [facility] IMMUNOLOGY HIV 1/2 Ab Negative Negative 07/19 MH *NA* /2012 [facility] (07/19/2013 05:26:00) BACTERIAL U S pneumo Negative 1 Negative 07/19 Normal <sup>1</sup>R M H - SEROLOGY Ag (07/19/2013 01:00:00) esult [facility] Comment: Collection date/time has been modified to: 01:00:00. Previous collection date/time: 01:00:00. MICRO MISC U Legion Ag Negative 2, 3 Negative 07/19 Normal <sup>2</moreno p>R MH - SEROLOGY (07/19/2013 01:00:00) esult [facility] Comment: Collection date/time has been modified to: 01:00:00. Previous collection date/time: 01:00:00.<br/ ><sup>3</sup> Interpretive Data: This kit tests for Legionella pneumophila Serogroup 1 Antigen. CHEMISTRY CK MB 2.1 0.5 - 3.6 07/19 Normal [facility] CHEMISTRY CK-MB INDEX 0.5 0.0 - 2.5 07/19 Normal [facility] CHEMISTRY Troponin-I 0.04 0.00 - 07/19 Normal MH 0.40 /2012 [facility] CHEMISTRY Total CK 458 12 - 191 07/19 HI MH /2012 [facility] CHEMISTRY Total CK 458 12 - 191 / HI [facility] CHEMISTRY Lactic Acid 1.7 0.5 - 2.2 07/19 Normal MH Lvl /2012 [facility] CHEMISTRY pCO2 Art 35 35 - 45 07/18 Normal [facility] CHEMISTRY pH Art 7.44 7.35 - 12 Normal MH 7.45 /2013 [facility] CHEMISTRY O2 Sat Art 93.2 95.0 - 07/18 LOW MH 100.0 /2012 [facility] CHEMISTRY pO2 Art 65 80 - 100 07/18 LOW MH /2012 [facility] CHEMISTRY BE Art 0 -2-2 - 2 07/18 Normal MH /2012 [facility] CHEMISTRY HCO3 Art 24 22 - 26 07/18 Normal MH /2012 [facility] CHEMISTRY Site Art Right Ra 07/18 Normal MH (07/18/2013 13:38:43) [facility] CHEMISTRY Allens Art Positive 07/18 Normal MH (07/18/2013 13:38:43) [facility] CHEMISTRY Mode Art Rm Air 07/18 Normal MH (07/18/2013 13:38:43) [facility] CHEMISTRY Temp Art 37.0 07/18 MH [facility] VIRAL - Influ B Negative 4 Negative 07/18 Normal <sup>4</sup>I MH SEROLOGY (07/18/2013 13:30:08) nterpreti ve [facility] Data: Influenza A&B Antigen:
Due to the low sensitivity of this test a negative result does not exclude influenza virus infection. A diagnosis of influenza should be considered based on a patient's clinical presentation and empiric antiviral treatment should be considered, if indicated. If more conclusive testing is desired, follow-up confirmatory testing with either viral culture or PCR is warranted. VIRAL - Influ A Negative Negative 07/18 Normal SEROLOGY (07/18/2013 13:30:08) N [facility] CHEMISTRY CK-MB INDEX 0.8 0.0 - 2.5 07/18 Normal MH [facility] CHEMISTRY ASPARTATE 26 0 - 37 07/18 Normal TRANSAMINASE /2012 [facility] CHEMISTRY B/C Ratio 9 6 - 25 07/18 Normal [facility] CHEMISTRY ALANINE 33 0 - 65 07/18 Normal AMINOTRANSFE /2012 [facility] RASE CHEMISTRY Globulin 3.5 2.0 - 4.0 07/18 Normal MH [facility] CHEMISTRY A/G Ratio 1.1 0.7 - 1.6 07/18 Normal MH /2012 [facility] CHEMISTRY Alk Phos 101 39 - 136 07/18 Normal MH /2012 [facility] CHEMISTRY Bili Total 1.0 0.2 - 1.3 07/18 Normal [facility] CHEMISTRY Albumin Lvl 4.0 3.5 - 5.0 07/18 Normal [facility] CHEMISTRY Total 7.5 6.4 - 8.4 07/18 Normal [facility] CHEMISTRY Troponin-I 0.03 0.00 - 07/18 Normal 0.40 [facility] CHEMISTRY CK MB 4.4 0.5 - 3.6 07/18 HI [facility] Pathology Reports No Data Provided for This Section Diagnostic Reports Report Value Date Source Carotid artery Clinical Indication: Acute Cerebral Acci dent - R/o cva 04/19/2017 [facility] Doppler bilat US Comparison: None TECHNIQUE: Carnes-scale, color Doppler an d spectral Doppler of the carotid arteries was performed. Any reported ICA stenoses indirectly reference the distal internal carotid diameter as the denominator for the sten osis measurement, utilizing consensus panel martha garcia. FINDINGS: Grayscale images demonstrate no significant atheromatous plaque formation of the right or left extracranial carotid artery systems. Normal color-flow signal and spectral Doppler waveforms. Right: ICA PSV 56 cm/sec ICA/CCA ratio 0.6 Left: ICA PSV 53 cm/sec ICA/CCA ratio 0.5 Bilateral vertebral arteries demonstrate antegrade flow. Bilateral external carotid arteries are patent. IMPRESSION: 1. No evidence for hemodynam ically significant stenosis of the right or left extracranial internal carotid arteries. 2. Normal antegrade flow both vertebral arteries . Consensus panel Doppler US criteria for diagnosi s of ICA stenosis: Stenosis (%) ICA PSV (cm/sec) ICA/CCA ratio <50 <125 <2.0 50-69 125-230 2.0-4.0 >70 but less than >230 >4.0 near occlusion Near occlusion High, low, or Variable undetectable SL: [id number] Brain wo contrast Clinical Indication: Acute cognitive change [facility] MRI Comparison: Brain MR 07/21/[address] TECHNIQUE: Multiplanar multi sequence MR imaging of the brain was performed without intravenous contrast. FINDINGS: VENTRICLES AND SULCI: Mildly widened, consistent with cerebral volume loss. Ex vacuo dilatation of the right lateral ventricle from prior vascular insults. EXTRA-AXIAL SPACES: No extra-axial fluid collect ion or mass effect BRAIN PARENCHYMA: There is n o abnormal restricted diffusion. Redemonstration of prior gliosis in the right striatocapsular region (with hemosiderin deposition indicating prior hemorrhage), right opercul um/orbitofrontal region, and right parietal lobe. This is associated with volume loss in the right thalamus. There is no mass effect or midline shift. No mass effect abnormality in the infratentorial fossa. VESSELS: The expected intracranial flow voids ar e present. IMPRESSION: No acute infarction. Gliosis from prior vascular insult in the right striatocapsular region, right operculum/orbitofrontal region, and right parietal lobe. SL: WR2-M Chest 1view DX Clinical Indication: Headaches since 12:00 PM; 0 04/18/2017 [facility] Comparison: 07/27/2016 FINDINGS: AP chest radiographs shows n ormal lung volumes without interstitial or airspace opacities, pleural effusions or pneumothorax. The heart size and pulmonary vasculature are normal. The trachea is midline. There are no clinically significant osseous abnormalities noted. IMPRESSION: No chest radiographic evidence of acute cardiopu lmonary disease. SL: WR4-M Brain wo contrast CT Addendum: I have personally reviewed the exam images and I agree with the exam findings and impression. 04/18/2017 Marcin gutierrez SL: [id number] Clinical Indication: Headache and left face/arm tingling. Comparison: Brain CT 02/09/2017 TECHNIQUE: CT images were ob tained from the foramen magnum to the vertex without the use of intravenous contrast on a multidetector CT. Axial, coronal and sagittal reformats created. Total exam DLP: 1304.48 mGy- cm. DLP means dose length product, a radiation dose metric that does not report individual patient dose, but is a reference value related to the radiation output of the scanner used for this exam. FINDINGS: Calvarium and scalp: No acute fracture, or scalp hematoma. Ventricles and sulci: Mild e x vacuo dilatation of the right lateral ventricle. Widened sulci, most pronounced in the frontal lobe. No hydrocephalus. Extra-axial spaces: No acute extra axial hemorrhage, fluid collection or mass effect. BRAIN PARENCHYMA: No acute p arenchymal hemorrhage, or large vascular territory infarction. Redemonstration of prior infarctions affecting the right orbitofrontal region/operculum, right striatocapsular region (caudate nucleus, ant erior limb of the internal capsule, lentiform nucleus), and right inferior/superior parietal lobule.There is no mass effect, midline shift or edema. The pineal, sellar, brain stem, cerebellum and skull base regions appear u nremarkable. Paranasal sinuses and mastoi d air cells: Paranasal sinuses are unremarkable. The mastoid air cells are clear. If there is further concern for intracranial pathology or acute stroke, MRI of the brain may be performed for complete assessment. IMPRESSION: No acute intracranial hemorr jason, mass effect or large vascular territory infarction. No significant change in the appearance of the brain since the brain CT performed on 02/09/2017. SL: WR2-M Brain wo contrast CT Patient Name: ALLYSON LESLIE 2016 [facility] : 1965; Age: 51 years y/o Male MR: [id number] Study: Brain wo contrast CT 02/09/2017 12:35 PM C DT Ordering Physician: Deanne Mendez Comparison: 08/27/2016 CT Radiation Dose DLP mGy-cm Clinical Indication: I63.9 Cerebral infarction, unspecified, I63.9 Cerebral infarction, unspecified; pt states headache since this am - dlp 1158.67; ; cephalgia Multiple computerized axial tomograms of the head were obtained without contrast. 2-D coronal and sagittal reformatted images were obtained. Greater than age-appropriate cortical and cerebellar volume l oss is noted with compensato ry enlargement of the ventricles and subarachnoid spaces. There is no acute cortical infarction, hemorrhage or mass lesion noted. No mass effect or midline shift. Ventricles are otherwise normal in size , shape and position. The base of skull and bony calvarium are intact. Areas of encephalomalacia/gliosis are present at the right frontal and temporal operculum, right fronto parietal cortex and posterio r right parietal cortex similar to the previous exam. A chronic lacunar infarction at the right putamen is unchanged from the previous exam. Mastoid air cells and paranasal sinuses are othe rwise clear. IMPRESSION: 1. No acute intracranial abnormality. 2. Chronic ischemic changes are noted intracranially similar to the previous exam. SL: [id number] Brain wo contrast CT Patient Name: ALLYSON LESLIE 08/27/2016 [facility] : 1965; Age: 50 years y/o Male MR: [id number] Study: Brain wo contrast CT 08/27/2016 1:45 PM CS T Clinical Indication: Seizure s, pt states the had a stroke a few months ago and has had a headache near the frontal sinus; DLP: 1029.93 Comparison: 07/27/[address] and brain MRI penny ed 07/29/2016 TECHNIQUE: CT images were ob tained from the foramen magnum to the vertex without the use of intravenous contrast on a multidetector CT. Coronal and sagittal reconstructions were obtained. FINDINGS: BRAIN PARENCHYMA: There is a small old right superior basal ganglion infarct and right kline radiata infarct. Low density is seen to the mid and inferior lateral right frontal lobe, and lateral high ri ght posterior frontal and ri ght parietal lobe. These low density areas are more prominent than the prior study and felt to represent evolution of the right MCA infarction as seen on brain MRI dated 07/03. No evidence for suba rachnoid, intraparenchymal or intraventricular hemorrhage. No significant extra-axial fluid collection, mass effect or shift. No evidence for an acute infarction. VENTRICLES: The right latera l ventricle is mildly larger than the left lateral ventricle felt to be due to volume loss. Ventricular system otherwise unremarkable. ORBITS, MASTOIDS AND PARANAS AL SINUSES: The visualized orbits and paranasal sinuses are unremarkable. The mastoid air cells are clear. SKULL: There are no osseous abnormalities. If there is further concern for intracranial pathology or acute stroke, MRI of the brain may be performed for complete assessment. IMPRESSION: 1. Old right basal ganglia and right kline radi rashaad infarcts. 2. Evolution to prior right MCA infarction as ab ove. 2. Right lateral ventricle m ildly larger then the left lateral ventricle felt to be due to volume loss. SL: [id number] Brain/Neck CTA CTA NECK AND BRAIN WITH CONTRAST 07/30/2016 [facility] INDICATION: Seizures, Aphasia, DLP: 2040.09 COMPARISON: None TECHNIQUE: CTA of the neck a nd brain was performed after administration of intravenous contrast. Coronal, sagittal, and 3-D reformatted images were utilized. DISCUSSION: Image detail is degraded by motion artifacts. In addition, there is suboptimal timing of the contrast bolus, with poor opacification of the [place] and overlapping venous opacification. Evaluation is limited. CTA NECK: Measurement of potential stenosis is performed a ccording to NASCET criteria. There is typical configurati on of the aortic arch. There is no stenosis at the origins of the supraaortic great vessels. The bilateral carotid bifurcations and internal carotid arteries appear widely pa tent, with less than 50% norma nosis of the bilateral ICAs. The bilateral vertebral arteries are patent. CTA BRAIN: The bilateral internal carot id arteries are grossly patent. Grossly, there is no evidence of complete occlusion of the proximal segments of the bilateral anterior, middle, and posterior cerebral arterie s. The vertebrobasilar arteries are grossly feldman nt. Grossly, no saccular aneurysms are visible. IMPRESSION: Limited evaluation for the reasons described abo ve. Stenosis of the extracranial internal carotid arteries is reported according to NASCET criteria. 1. Less than 50% stenosis of the bilateral extracranial internal carotid arteries. The vertebral arteries are grossly patent. 2. Grossly unremarkable CTA of the [place]. SL:16 Brain wo contrast MRI BRAIN WITHOUT CONTRAST 07/29/2016 [facility] MRI INDICATION: Ataxia COMPARISON: CT brain 07/27/2016 DISCUSSION: Image detail is degraded by motion artifacts. There is multifocal diffusio n restriction and T2 FLAIR hyperintensity of the right frontal and parietal lobes, in the vascular territory of the right MCA. There is greatest involvement of the right deidra etal lobe. There are chronic lacunar infarcts of the bilateral basal ganglia and deep right frontal white matter. The normal flow voids of the bilateral internal carotid arteries and vertebrobasilar art eries are visible. There is no evidence of space occupying lesions, hemorrhage, hydrocephalus, midline shift, or extra-axial fluid collections. No suprasellar or craniocervical abnormalities are seen. N ote is made of mild right mastoid effusion, new since 07/27/2016. IMPRESSION: 1. Acute or recent multifoca l infarcts of the right MCA vascular territory, greatest involving the right parietal lobe. This finding was discussed with the patient's nurse at the time of dictation. 2. Chronic ischemic changes of the brain. SL:16 Chest 1view DX Patient Name: ALLYSON LESLIE 07/27/2016 [facility] : 1965; Age: 50 years y/o Male MR: [id number] * CHEST, portable, 1 view HISTORY: Chest pain COMPARISON: 03/07/2016. A ch est computed tomography scan of 08/15/2014 was also reviewed. TECHNIQUE: A portable frontal radiograph of the chest was obtained. FINDINGS: The lungs are clear. There are no pleural effusions. There is moderate cardiomegaly. There is no evidence of failure. The regional skeleton is unremarkable. IMPRESSION: 1. No active disease. 2. Moderate cardiomegally. SL: [id number] Brain wo contrast CT EXAM: CT BRAIN WITHOUT CONTRAST 07/27/2016 [facility] DATE: 07/27/2016 11:29 AM [facility] INDICATION: Weakness. Headache. Left-sided numbn ess. ADDITIONAL INFORMATION AND CT DLP: 1029.93 mGy-c m. COMPARISON: CT head of 02/18/2016. TECHNIQUE: Routine axial CT images of the brain were obtained. IV contrast: None. FINDINGS: Nonspecific low-density is p resent within the right parietal lobe may represent recent infarct. Interval old anterior limb r ight internal capsule and caudate head infarct is present. Additional nonspecific focal low density is present within the right frontal white matter. Garcia-white matter distin ction is preserved. The vent ricles are normal. The basal cisterns and sulci are normal in size. Mild chronic inflammatory ch raven of the paranasal sinus. Partial opacification of the mastoid air cells. IMPRESSION: 1. Nonspecific low-density i s present within the right parietal lobe may represent recent infarct. No definite acute intracranial hemorrhage detected. Please correlate with neurologic symptoms and dedic ated MRI brain can be performed for further eval uation. 2. Interval old anterior fleming b right internal capsule and caudate head infarct is present. Additional nonspecific focal low density is present within the right frontal white matter may reflect recent or chronic infarct. If there is further concern for intracranial pathology or acute stroke, MRI of the brain may be performed for complete assessment. SL: [id number] Chest 1view DX Portable chest: The cardiome diastinal silhouette and pulmonary vasculature are within normal limits. The lungs and pleural spaces are clear. There are no acute osseous abnormalities. There is no significant change compared to 02/18/2016. 03/07/2016 [facility] IMPRESSION: No acute radiographic abnormality in the chest. KAITLIN [id number] Chest w contrast CT CT CHEST WITH CONTRAST, WITH PULMONARY E MBOLUS PROTOCOL 02/18/2016 [facility] INDICATION: Syncope COMPARISON: CT chest 08/15/2014 and chest this d ate Technique: Axial images were obtained during bolus nonionic intravenous contrast administration, Omnipaque 100 cc ,followed by the routine examination. Sagittal and coronal reconstructions were obtained. CT Radiation Dose: DLP = 1188.85 mGy-cm CT ANGIOGRAM: No pulmonary arterial filling defect is identified that would indicate pulmonary embolus. Cardiomegaly is noted. CT CHEST: No mass or airspace consolidation is i dentified. There is no hilar or mediast inal adenopathy. No pleural or pericardial effusion is seen. Mild bilateral gynecomastia is noted. Visualized portions of the upper abdomen are rem arkable for fatty liver IMPRESSION: 1. No evidence of pulmonary embolus. 2. Mild cardiomegaly. 3. Fatty liver. 4. Mild gynecomastia. Brain wo contrast CT CT BRAIN WITHOUT CONTRAST 02/18/2016 [facility] INDICATION: Syncope, possible seizure, headache COMPARISON: None DISCUSSION: There is no evidence of a cute vascular insults, space occupying lesions, hemorrhage, hydrocephalus, midline shift, or extra-axial fluid collections. The calvarium is intact. IMPRESSION: No acute intracranial abnormalities are visua lized. SL:16 Chest 1view DX Study: Chest 1view DX portable 02/18/2016 1234 h ours 02/18/2016 [facility] Clinical Indication: Chest pain; Comparison: Chest 08/14/2014 FINDINGS: The cardiac silhou ette is top normal in size. The mediastinum is not remarkable. The lungs are incompletely i nflated. No pneumonia, vascular congestion or pleural effusion is seen. Thoracic spondylosis is note d and minor degenerative changes involve the shoulders. IMPRESSION: No acute abnormality. SL: [id number] Renal Stone CT Name: INDIRA LESLIETIMOTEO 11/22/2014 [facility] : 1965 Ordering Physician: Kristen Harris Renal Stone CT : Nov 22, 2014 11:18:00 AM. CLINICAL INDICATION: Abdominal pain, acute Comparison Examination: February 07, 2014. TECHNIQUE: CT of the abdomen and pelvis was performed using 2.5 mm sections without IV contrast using renal stone protocol. Coronal and sagittal reconstructions were performed and provided as separate series. Total DLP = 1015.1 mGy/cm FINDINGS: The lung bases are clear and there are no effusions. Lack of IV contrast limits assessment of solid organs. Given these limitations, visualized portions of liver, spleen, adrenals, gallbladder , and pancreas are unremarka ble. There is no free intraperitoneal air or fluid. No distended loops of small bowel are appreciated. Nonspecific fat stranding with small lymph nodes are noted within the l eft mid mesentery. This is unchanged compared to February 07, 2014. Evaluation of the kidneys sh ows no evidence of renal or ureteral stones. There is no hydronephrosis on either side. The urinary bladder is decompressed. A few scattered diverticula are noted throughout the colon. No surrounding inflammatory changes are seen to suggest acute diverticulitis. The rectum, sigmoid, and urinary bladder are unremarkable. The n oncontrast prostate is unrem arkable. The appendix is normal in caliber with no surrounding inflammatory changes. No gross bony abnormalities are appreciated. IMPRESSION: No evidence of renal or ureteral st ones. SL: 23 Chest Pulmonary Name: ALLYSON LESLIE 08/15/2014 [facility] : 1965 Ordering Physician: Ngozi Pierre Chest CTA pulm emb : Aug 15, 2014 05:49:00 PM. CLINICAL INDICATION: Coughing REASON FOR EXAM: PT W/ACUTE RESP FAILURE W/HEMOP TYSIS; R/O TB, R/O P.E. Comparison Examination: 07/18/2013. TECHNIQUE: Sequential trans- axial images were obtained with a multi-detector helical CT after iodinated contrast administration. Coronal and sagittal reconstructions and 3D MIP postprocessing were obtai farhan. 100 cc of Omnipaque con trast material was used for the exam. Total DLP = 479.56 mGy/cm FINDINGS: There are bilatera l confluent perihilar interstitial alveolar opacities consistent with moderate perihilar pulmonary edema. Small layering bilateral pleural effusions are present. No airspace cavitation or architectural distortion is appreciated. The there is no pneumothorax. The central airway is normal. There are no segmental pulmo nary emboli noted. The main, right and left pulmonary arteries are normal. There is no thoracic aortic dissection or aneurysm. The heart is mildly enlarged. There is no peric ardial effusion. The great v essels are unremarkable. There is no mediastinal lymphadenopathy or masses. The visualized upper abdomin al images are unremarkable. No focal osseous abnormalities are appreciated. IMPRESSION: 1. No CT evidence of pulmonary embolism. 2. Findings consistent with moderate perihilar pulmonary edema with small layering bilateral pleural effusions. SL: 24 Chest 1view Name: ALLYSON LESLIE 08/14/2014 [facility] : 1965 Ordering Physician: Kristen Harris Chest 1view : Aug 14, 2014 08:20:00 AM. CLINICAL INDICATION: Chest pain Comparison Examination: 05/11/2014 FINDINGS: Single view of the chest is submitted for interpretation. There is mild to moderate in terstitial pulmonary edema. Patchy airspace disease in the perihilar regions represent alveolar components of edema. Underlying pneumonia cannot be entirely excluded. There a re small bilateral pleural effusions. There is n o visible pneumothorax. Cardiomediastinal contours are stable. Bony str uctures are unremarkable. IMPRESSION: 1. Mild to moderate interstitial pulmonary edema . 2. Patchy perihilar airspace disease which represent alveolar components of edema. Underlying pneumonia cannot be entirely excluded. SL: 24 Hand AP lateral Name: ALLYSON LESLIE 05/08/2014 [facility] oblique : 1965 SEX: M Ordering Physician: Roc Tinsley Hand AP lateral oblique : May 08, 2014 11:13:00 PM. CLINICAL INDICATION: Trauma Comparison Examination: None AP, lateral, and oblique views of the left hand are provided. FINDINGS: There is normal alignment wi thout fractures or dislocations. The digit and thumb interphalangeal joints are unremarkable. The metacarpophalangeal and carpometacarpal joint regions are unremarkable. the re is soft tissue swelling o verlying the dorsum of the hand. There are no radiopaque foreign bodies. The visualized wrist region is grossly unremarkable. If there is further concern, recommend follow-up radiographs or bone scan for complete assessment. IMPRESSION: 1. No acute fracture or subluxation. 2. Soft tissue swelling overlying the dorsum of the hand. SL: 24 Abdomen/Pelvis wo IV Name: ALLYSON LESLIE 02/07/2014 [facility] contrast CT : 1965 SEX: M Ordering Physician: Justin Mcgregor Abdomen/Pelvis wo contrast CT : Feb 07, 2014 11: 22:00 AM. CLINICAL INDICATION: Abdominal pain, acute Comparison Examination: None TECHNIQUE: Sequential trans- axial images were obtained with a multi-detector helical CT without administration of intravenous iodinated contrast material. Coronal and sagittal reconstructions were obtained. Contrast: Oral contrast was given for bowel opa cification. Dose: The total exam DLP is 975.80 mGy-cm. FINDINGS: Evaluation of the solid organs is limi vijaya by lack of IV contrast. CHEST: There are no pulmonar y nodules or masses. There are no infiltrates or effusions. There is no evidence of interstitial lung disease. LIVER: There are no gross masses or intrahepatic biliary ductal dilation. GALLBLADDER: The gallbladder is unremarkable, there is no evidence of cholelithiasis or cholecystitis. SPLEEN: The spleen is normal in size and there are no gross parenchymal abnormalities. PANCREAS: The pancrease is g rossly unremarkable. The pancreatic duct is normal in caliber. ADRENAL GLANDS: The right ad renal gland is unremarkable. The left adrenal gland is unremarkable. KIDNEYS: TThere is no eviden ce of renal or ureteric calculi. There is no evidence of hydronephrosis. BOWEL: The visualized esoph kathy is unremarkable. The stomach is unremarkable. The small bowel is normal in caliber and there is no evidence of masses or obstruction. there is mild diverticulosis of the colon without evidence of diverticulitis. Th e appendix is unremarkable. PELVIS: The bladder is unrem arkable. the prostate and seminal vesicles are unremarkable. LYMPH NODES: There is no evidence of mesenteric or inguinal lymphadenopathy. VASCULATURE: Evaluation of t he of the abdominal vasculature is limited due to lack of contrast. SOFT TISSUES: There are no hernias or soft tissu e masses. BONES: The visualized skeleton is unremarkable. IMPRESSION: 1. No acute intra-abdominal findings. 2. Mild diverticulosis of the colon without evid ence of diverticulitis. SL: 24 Chest 1view NAME: ALLYSON LESLIE 02/07/2014 [facility] : 1965 SEX: M 41 Ordering Physician: Justin Mcgregor 1view : Feb 07, 2014 08:04:00 AM. CLINICAL INDICATION: Chest pain / See Clinic Indication Comparison Examination: 11/29/2013. FINDINGS: Single AP view of the chest is submit vijaya for interpretation. Heart size is upper limits o f normal. There is central pulmonary vascular congestion, accentuated by low lung volumes. Lungs are otherwise clear without confluent infiltrate. No pleural effusion or pneumothorax. No acute osseous abnormality. . IMPRESSION: Borderline heart size with low lung volumes and vascular congestion. SL: 24 Chest 2 views NAME: ALLYSON LESLIE 11/29/2013 [facility] : 1965 SEX: M 41 Ordering Physician: Eldon Camilo Chest 2 views : Nov 29, 2013 06:06:00 AM. CLINICAL INDICATION: Hemoptysis / See Clinic Indication Comparison Examination: 07/20/2013. FINDINGS: PA and lateral views of the chest were performed. Heart size is upper limits o f normal. No confluent infiltrate or mass. No pleural effusion or pneumothorax. No acute osseous abnormality. IMPRESSION: 1. Borderline heart size. Otherwise, no acute pr ocess identified. SL: 24 Chest 1view Name: ALLYSON LESLIE 07/20/2013 [facility] : 1965 SEX: M Ordering Physician: Ngozi Pierre Chest 1view : Jul 20, 2013 06:18:00 AM. CLINICAL INDICATION: Abnormal chest sounds Comparison Examination: 07/18/2013 FINDINGS: This portable chest radiogra ph shows normal lung volumes with persistent and essentially unchanged confluent interstitial and alveolar opacities within the lungs and there are no pleural effusions or pneumothorax. The cardiomediastinal contours are stable. There are no clinically significant osseous abno rmalities noted. IMPRESSION: No significant interval change when compared to the prior study. SL: 23 Chest Pulmonary NAME: ALLYSON LESLIE 07/18/2013 No rtheast Embolism CTA : 1965 SEX: M 41 Ordering Physician: Ngozi Pierre Chest CTA pulm emb : Jul 18, 2013 10:55:00 PM. CLINICAL INDICATION: Chest pain / See Clinic Indication Comparison Examination: None. TECHNIQUE: Sequential trans- axial images were obtained with a multi-detector helical CTafter iodinated contrast administration. Coronal and sagittal reconstructions were obtained. 3-D volume rendered and maxi mum intensity projected images are provided and reviewed 100 cc of Omnipaque contrast material was used for the exam. CT radiation dose DLP 468 mGy-cm FINDINGS: Respiratory motion artifacts noted Lungs show accentuated parah ilar vascularity with superimposed alveolar hazy groundglass opacities distributed and paravascular fashion about the parahilar regions bilaterally throughout the lungs. No effusion. No pneumothorax. The heart is upper normal in size. There is no p ericardial effusion. Nonspecific prominent prevas cular as well as right upper and lower paratracheal mediastinal lymph nodes largest measuring 8 mm. The visualized upper abdominal images are unrema rkable. There are no definite significant osseous abnorm alities seen. CTA: There are no proximal segmen luna or larger pulmonary emboli noted. The main, right and left pulmonary arteries are normal. The superior vena cava is unremarkable. There is no thoracic aortic dissection or aneurysm. IMPRESSION: No evidence for pulmonary embolism Heart upper normal in size w ith prominent parahilar vascularity superimposed paravascular hazy alveolar groundglass opacities. May consider sequela of vascular edema, correlate for superimposed typical versus atypical infectious or inflammatory proce ss. Nonspecific mildly prominent mediastinal lymph n odes SL: 23 Chest 1view Name: ALLYSON LESLIE 07/18/2013 Bhanu thebrenda : 1965 SEX: M Ordering Physician: Kory Medrano Chest 1view : Jul 18, 2013 01:01:00 PM. CLINICAL INDICATION: Dyspnea Comparison Examination: None FINDINGS: PA and lateral chest radiographs were performed. HEART: The cardiac silhouette is enlarged. LUNGS: There is diffuse bila teral patchy opacity more prominently in the right midlung, these findings may resent changes of pulmonary edema or bilateral diffuse infiltrates. BONES: There are no clinically significant osse ous abnormalities noted. IMPRESSION: Cardiomegaly with findings t o suggest pulmonary edema versus diffuse bilateral infiltrates. SL: 24 Consultation Notes No Data Provided for This Section Discharge Summaries No Data Provided for This Section History and Physicals No Data Provided for This Section Vital Signs Vital Sign Value Date Comments Source Systolic (mm Hg) 130 04/21/2017 [facility] t Diastolic (mm Hg) 82 04/21/2017 [facility] st Heart Rate 63 04/21/2017 [facility] Respitory Rate 19 04/21/2017 [facility] Temperature Oral (F) 98.4 F 04/21/2017 [facility] Height 180.34 cm 04/21/2017 [facility] BMI Calculated 31.45 04/21/2017 [facility] Weight 102.273 04/21/2017 [facility] Respitory Rate 18 04/19/2017 [facility] Systolic (mm Hg) 137 04/19/2017 [facility] Diastolic (mm Hg) 89 04/19/[address] Respitory Rate 18 04/19/2017 [facility] Temperature Oral (F) 98.9 F 04/19/2017 [facility] Heart Rate 53 04/19/2017 [facility] Temperature Oral (F) 98.3 F 04/19/2017 [facility] Respitory Rate 18 04/19/2017 [facility] Heart Rate 61 04/19/2017 [facility] Systolic (mm Hg) 144 04/19/2017 [facility] Diastolic (mm [facility]) 90 [facility] 69 04/19/2017 [facility] Temperature Oral (F) 98.6 F 04/19/2017 [facility] Systolic (mm Hg) 129 04/19/2017 [facility] Diastolic (mm Hg) 74 04/19/[address] BMI Calculated 36.69 04/18/2017 [facility] Weight 100 04/18/2017 [facility] Height 165.1 cm 04/18/2017 [facility] Heart Rate 80 08/27/2016 [facility] Systolic (mm Hg) 147 08/27/2016 [facility] Diastolic (mm Hg) 94 08/27/2016 [facility] Respitory Rate 16 08/27/2016 [facility] Temperature Oral (F) 98.8 F 08/27/[address] [facility] Heart Rate 86 08/27/2016 [facility] Respitory Rate 18 08/27/2016 [facility] Temperature Oral (F) 99.0 F 08/27/[address] [facility] Systolic (mm Hg) 135 08/27/2016 [facility] Diastolic (mm Hg) 84 08/27/2016 [facility] Weight 97.727 08/27/2016 [facility] Systolic (mm Hg) 128 07/30/2016 [facility] Diastolic (mm Hg) 80 07/30/2016 [facility] Respitory Rate 20 07/30/2016 [facility] Heart Rate 84 07/30/2016 [facility] Temperature Oral (F) 98.6 F 07/30/[address] [facility] Respitory Rate 20 07/30/2016 [facility] Systolic (mm Hg) 142 07/30/2016 [facility] Diastolic (mm Hg) 92 07/30/2016 [facility] Heart Rate 90 07/30/2016 [facility] Temperature Oral (F) 98.9 F 07/30/[address] [facility] Systolic (mm Hg) 158 07/30/2016 [facility] Diastolic (mm Hg) 97 07/30/2016 [facility] Respitory Rate 20 07/30/2016 [facility] Heart Rate 89 07/30/2016 [facility] Temperature Oral (F) 97.5 F 07/30/[address] [facility] Weight 97.727 07/27/2016 [facility] BMI Calculated 35.85 07/27/2016 [facility] Height 165.1 cm 07/27/2016 [facility] Systolic (mm Hg) 136 03/07/2016 [facility] Diastolic (mm Hg) 78 03/07/2016 [facility] Heart Rate 78 03/07/2016 [facility] Temperature Oral (F) 98.8 F 03/07/[address] [facility] Respitory Rate 18 03/07/2016 [facility] Systolic (mm Hg) 131 03/07/2016 [facility] Diastolic (mm Hg) 67 03/07/2016 [facility] Respitory Rate 18 03/07/2016 [facility] Temperature Oral (F) 99.1 F 03/07/[address] [facility] Heart Rate 76 03/07/2016 [facility] BMI Calculated 34.69 03/07/2016 [facility] Height 165.1 cm 03/07/2016 [facility] Weight 94.545 03/07/2016 [facility] Heart Rate 96 03/07/2016 [facility] Respitory Rate 16 03/07/2016 [facility] Temperature Oral (F) 98.5 F 03/07/[address] [facility] Systolic (mm Hg) 113 03/07/2016 [facility] Diastolic (mm Hg) 75 03/07/2016 [facility] Heart Rate 76 02/18/2016 [facility] Respitory Rate 18 02/18/2016 [facility] Temperature Oral (F) 98.1 F 02/18/[address] [facility] Systolic (mm Hg) 171 02/18/2016 [facility] Diastolic (mm Hg) 91 02/18/2016 [facility] Heart Rate 87 02/18/2016 [facility] Systolic (mm Hg) 162 02/18/2016 [facility] Diastolic (mm Hg) 97 02/18/2016 [facility] Respitory Rate 14 02/18/2016 [facility] Temperature Oral (F) 98.2 F 02/18/[address] [facility] Systolic (mm Hg) 195 02/18/2016 [facility] Diastolic (mm Hg) 128 02/18/2016 [facility] Heart Rate 86 02/18/2016 [facility] Respitory Rate 16 02/18/2016 [facility] Height 177.8 cm 02/18/2016 [facility] BMI Calculated 25.88 02/18/2016 [facility] Weight 81.818 02/18/2016 [facility] Temperature Oral (F) 98.5 F 02/18/[address] [facility] Systolic (mm Hg) 166 11/22/2014 [facility] Diastolic (mm Hg) 90 11/22/[address] Heart Rate 68 11/22/2014 [facility] Respitory Rate 16 11/22/2014 [facility] Weight 93.835 11/22/2014 [facility] BMI Calculated 34.42 11/22/2014 [facility] Height 165.1 cm 11/22/2014 [facility] Heart Rate 77 11/22/2014 [facility] Systolic (mm Hg) 173 11/22/2014 [facility] Diastolic (mm Hg) 112 11/22/[address] Temperature Oral (F) 98.5 F 11/22/2014 [facility] Respitory Rate 20 11/22/2014 [facility] Respitory Rate 16 08/18/2014 [facility] Respitory Rate 20 08/18/2014 [facility] Temperature Oral (F) 97.5 F 08/18/2014 [facility] Systolic (mm Hg) 149 08/18/2014 [facility] Diastolic (mm Hg) 89 08/18/[address] Heart Rate 106 08/18/2014 [facility] Heart Rate 100 08/17/2014 [facility] Heart Rate 87 08/17/2014 [facility] Systolic (mm Hg) 131 08/17/2014 [facility] Diastolic (mm Hg) 87 08/17/[address] Respitory Rate 14 08/17/2014 [facility] Temperature Oral (F) 98.3 F 08/17/2014 [facility] Systolic (mm Hg) 112 08/17/2014 [facility] Diastolic (mm Hg) 70 08/17/[address] Temperature Oral (F) 98.4 F 08/17/2014 [facility] BMI Calculated 35.57 08/14/2014 [facility] Weight 96.96 08/14/2014 [facility] Height 165.1 cm 08/14/2014 [facility] Weight 96.96 08/14/2014 [facility] BMI Calculated 35.57 08/14/2014 [facility] Height 165.1 cm 08/14/2014 [facility] Weight 113.636 08/14/2014 [facility] BMI Calculated 41.69 08/14/2014 [facility] Height 165.1 cm 08/14/2014 [facility] Diastolic (mm Hg) 82 05/13/2014 [facility] Systolic (mm Hg) 120 05/13/2014 [facility] Heart Rate 78 05/13/2014 [facility] Respitory Rate 20 05/13/2014 [facility] Temperature Oral (F) 98.6 F 05/13/2014 [facility] Temperature Oral (F) 98.5 F 05/13/2014 [facility] Respitory Rate 20 05/13/2014 [facility] Systolic (mm Hg) 114 05/13/2014 [facility] Heart Rate 85 05/13/2014 [facility] Diastolic (mm Hg) 76 05/13/2014 [facility] Temperature Oral (F) 98.7 F 05/13/2014 [facility] Diastolic (mm Hg) 80 05/13/2014 [facility] Respitory Rate 18 05/13/2014 [facility] Heart Rate 82 05/13/2014 [facility] Systolic (mm Hg) 128 05/13/2014 [facility] Weight 97.727 05/09/2014 [facility] Height 165.1 cm 05/09/2014 [facility] BMI Calculated 35.85 05/09/2014 [facility] Weight 97.727 05/09/2014 [facility] Height 165.1 cm 05/09/2014 [facility] Weight 113.636 05/09/[address] [facility] Height 165.1 cm 05/09/[address] [facility] BMI Calculated 41.69 05/09/2014 [facility] Respitory Rate 16 05/09/2014 [facility] Heart Rate 90 05/09/2014 [facility] Diastolic (mm Hg) 107 05/09/[address] Systolic (mm Hg) 161 05/09/2014 [facility] Diastolic (mm Hg) 99 05/09/[address] Respitory Rate 18 05/09/2014 [facility] Systolic (mm Hg) 164 05/09/2014 [facility] Heart Rate 98 05/09/2014 [facility] Height 165.1 cm 05/08/2014 [facility] Weight 97.727 05/08/2014 [facility] BMI Calculated 35.85 05/08/2014 [facility] Temperature Oral (F) 98.6 F 05/08/2014 [facility] Respitory Rate 20 05/08/2014 [facility] Systolic (mm Hg) 160 05/08/2014 [facility] Heart Rate 115 05/08/2014 [facility] Diastolic (mm Hg) 94 05/08/[address] Temperature Oral (F) 98.0 F 02/09/2014 [facility] Heart Rate 68 02/09/2014 [facility] Respitory Rate 16 02/09/2014 [facility] Systolic (mm Hg) 158 02/09/2014 [facility] Diastolic (mm Hg) 98 02/09/[address] Temperature Oral (F) 98.6 F 02/09/2014 [facility] Diastolic (mm Hg) 54 02/09/[address] Systolic (mm Hg) 155 02/09/2014 [facility] Respitory Rate 16 02/09/2014 [facility] Heart Rate 64 02/09/2014 [facility] Temperature Oral (F) 98.6 F 02/09/2014 [facility] Heart Rate 73 02/09/2014 [facility] Diastolic (mm Hg) 78 02/09/[address] Systolic (mm Hg) 157 02/09/2014 [facility] Respitory Rate 20 02/09/2014 [facility] BMI Calculated 33.77 02/07/2014 [facility] Height 165.1 cm 02/07/2014 [facility] Weight 92.045 02/07/2014 [facility] Weight 96.818 02/07/2014 [facility] BMI Calculated 35.52 02/07/2014 [facility] Height 165.1 cm 02/07/2014 [facility] Weight 96.364 02/07/2014 [facility] BMI Calculated 35.35 02/07/2014 [facility] Height 165.1 cm 02/07/2014 [facility] Systolic (mm Hg) 168 11/29/2013 [facility] Diastolic (mm Hg) 93 11/29/[address] Temperature Oral (F) 98.9 F 11/29/2013 [facility] Heart Rate 84 11/29/2013 [facility] Respitory Rate 20 11/29/2013 [facility] BMI Calculated 36.35 11/29/2013 [facility] Weight 99.091 11/29/2013 [facility] Height 165.1 cm 11/29/2013 [facility] Respitory Rate 20 11/29/2013 [facility] Temperature Oral (F) 99.1 F 11/29/2013 [facility] Heart Rate 83 11/29/2013 [facility] Diastolic (mm Hg) 94 11/29/[address] Systolic (mm Hg) 167 11/29/2013 [facility] Systolic (mm Hg) 132 07/21/2013 [facility] Temperature Oral (F) 98.5 F 07/21/2013 [facility] Heart Rate 95 07/21/2013 [facility] Respitory Rate 18 07/21/2013 [facility] Diastolic (mm Hg) 81 07/21/[address] Respitory Rate 18 07/21/2013 [facility] Heart Rate 66 07/21/2013 [facility] Temperature Oral (F) 99.5 F 07/21/2013 [facility] Diastolic (mm Hg) 90 07/21/[address] Systolic (mm Hg) 164 07/21/2013 [facility] Temperature Oral (F) 97.9 F 07/21/2013 [facility] Heart Rate 86 07/21/2013 [facility] Respitory Rate 18 07/21/2013 [facility] Systolic (mm Hg) 142 07/21/2013 [facility] Diastolic (mm Hg) 74 07/21/[address] Height 165.1 cm 07/20/2013 [facility] Weight 93.3 07/19/2013 [facility] Height 165.1 cm 07/19/2013 [facility] Height 165.1 cm 07/18/2013 [facility] Weight 97.727 07/18/2013 [facility] Encounters Location Location Encounter Encounter Reason Attending ADM DC Stat us Source Details Type Number For Provider Date Date Visit Not Sent Inpatient [id number] NGOZI PIERRE 07/18 07/21 Ruby diaz 0 II ed [facility] EC [id number] Cliff Oleary 11/29 11/29 M [facility] Inpatient [id number] Yady 02/07 02/09 [facility]a [facility] EC [id number] Jaskaran Yi 05/08 05/09 [facility] Inpatient [id number] Jaskaran Yi 05/09 05/13 Dale Reese [facility] Inpatient [id number] Abilio Simsi 08/14 08/18 [facility] [id number] Kristen 11/22 11/22 [facility] EC [id number] Wilfred Hogan 02/17 02/17 [facility] EC [id number] Stanley Mendez 03/07 03/07 Luc[facility] OP Therapy [id number] Norman De Guzman 05/26 06/25 [facility] Patients 0 [facility] OP Therapy [id number] Norman De Guzman 07/10 08/09 [facility] Patients 1 [facility] Inpatient [id number] Khris 07/27 07/30 Reese 8 [facility] Emergency [id number] Jim Trujillo 08/27 08/27 Lucien [facility] Outpatient [id number] JEAN 09/14 [facility] [id number] JEAN 10/01 [facility] 3 [facility] Outpatient [id number] JEAN 01/11 [facility] 2 [facility] Outpatient [id number] [facility] 02/[address] [facility] 4 A [facility] Outpatient [id number] 02/09 02/10 [facility] Outpatient [id number] [facility] Act [facility] 6 A [facility] Observation [id number] Amena 04/18 04/19 Lucien 1 Jose /2016 [facility] Emergency [id number] Jaskaran Brown 04/21 04/21 [facility] Outpatient [id number] [facility] 05/12 [facility] 5 A Reese [facility] Phone [id number] 11/04 11/06 [facility] Neurology Message [facility] Procedures Procedure Code Date Perfomer Comments Source MRI of brain and [id number] 07/29/2016 [facility] [place] [facility] Angioplasty of [id number] [facility] [place] [facility] Hand repair [id number] [facility] Assessment and Plan Assessment and Plan Date Source Extracted from:Title: Clinical Document 04/19/2017 [place] Author: Manohar Pope MD Date: 04/19/17 Patient admitted to my service on 2016, discharged on 04/19/2017. He can go back to his rehabilitation center without any restriction. Please call me if there is ryann question (Shivam Pope MD. [phone]) Extracted from:Title: Hospitalist H&P * Author: Amena Garcia MD [...] Plavix and statin, patient takes as an outp atient Patient had an echo obtained approximate 1 year ago will not repeat at this time In regards to diabetes insulin sliding scale and Accu-Cheks Resume other home medications as appropriate and tolerated Neurology consultation placed in the emergency room Further management pending patient's workup and clinical cou rse Counseled patient on tobacco cessation a nd importance of lifestyle modifications. DVT prophylaxis: Heparin subcu CODE STATUS: Patient is full code Extracted from:Title: Progress Note 07/30/2016 [facility] Author: Rin Morales Date: 07/30/16 Progress Note - Daily [facility] Completed: , JUL 30, 2016, 13:28 by Rin Morales RM: 508 - 01, NW [id number] TIFFANY LESLIE 50y (: 1965) M Attending: Khris Moon MD Service: Pulmonology/Respiratory Therapy Reason for Admission: ACUTE CEREBROVASCULAR ACCIDENT Working DRG: Other disorders of nervous system w/o CC/GROUP HOME Code status: None Specified=FULL CODE Isolation: None Documented Allergies: NKDA SUBJECTIVE Pt examined at bedside alongside Dr. Tremaine delarosa, no acute events overnight. Just returned to room from CTA brain/neck. Pt reports feeling well, denies any further episodes of expressive aphasia, increased L hemiparesis/hemihypesthesia. Denies any current complaints . OBJECTIVE General: NAD; patient resting in bed Chest: regular respirations without use of accessory muscles Abdomen: soft, nontender, nondistended Neuro: Awake, alert. Speech is fluent an d appropriate though at times mildly slurred, reliably follows commands. Pupils equal, round, and reactive to light. Extraoccular movements intact. Facial sens ation intact c mild L nasolabial fold flattening noted. Sensation: intact to light touch in upper and lower extremit ies bilaterally. Strength: presently moving all extremities antigravity [...] 24 Hr Tmax: 98.9F (37.17c) at 07/30 08:5 7 Vital Signs are the last 5 in the past 48 hours. Date Wt(kg) Wt(lb) Ht(cm) Ht(in) Method 07/28 99.32 218.50 Measured 07/27 (initial) 97.73 215.00 Estimated 07/27 165.10 65.00 Stated I&O Record In Out Bal 07/30 24hr Tot 570 0 570 07/29 24hr Tot 220 0 220 Medications (18) Active Scheduled Meds (8): 07/27/16 NIFEdipine (NIFEdipine 60 mg or al tablet, extended release) 60 mg PO Daily 07/29/16 aspirin 325 mg PO Daily 07/27/16 atorvastatin (Lipitor) 20 mg PO Bedtime 07/27/16 carvedilol 25 mg PO BID 07/28/16 chlordiazePOXIDE(Librium) (chlo rdiazePOXIDE 25 mg oral capsule (Librium)) 25 mg PO QID 07/30/16 levETIRAcetam (Keppra 1000 mg oral tablet) 1,000 mg PO Q12H 07/27/16 sacubitril-valsartan 2 tab PO Q12H 07/27/16 sodium chloride (Saline Flush 0.9%) 10 ml IVP Q12H Unscheduled Meds (2): 07/27/16 influenza virus vaccine, inactivated 0.5 mL IM ONCA LL 07/27/16 pneumococcal 23-valent vaccine 0.5 mL IM ONCALL PRN Meds (8): 07/28/16 LORazepam (Ativan) 1 mg IVP Q15Min 07/27/16 acetaminophen (Tylenol) 650 mg PO Q4H 07/28/16 benzocaine-menthol topical (Cep acol Sore Throat 15 mg-3.6 mg mucous membrane [...] Mr. Leslie is a 50 y/o right-hand lisa nant -Turkmen male c PMH of CVA in 04/2016 c residual L hemiparesis and mild dysarthria, HTN, HLD, ETOH abuse, tobacco abuse who presented to [facility] followi ng episode of increased L hemiparesis an d expressive aphasia the morning of 07/27/2016 that improved, c also reporting that pt had a seizure the evening of 07/27/2016, and possible [address] b rain without contrast performed upon arr ival demonstrated a chronic R internal capusule/caudate head infarction, as well as interval development of a hypodensity in the R parietal lobe concerning for po ssible recent infarction. MRI brain with out contrast completed , demonstrating acute R MCA infarction territory infarctions, c CTA brain/neck not demonstrating any hemodynamically significant stenosis/l esion. Echocardiogram not significantly changes from 2014, demonstrating LVEF 40-45%, mildly enlarged L atrium. Given history and findings, pt's presentation due to acute R MCA territory CVA (while noncompliant c daily anti-platelet ther apy and continued tobacco abuse) c concern for seizure activity (? induced by suspected ETOH withdrawal). PLAN and TREATMENT -- neuro as described above -- CT brain without contrast results reviewed and discussed c pt -- MRI brain without contrast results reviewed, discussed c pt -- CTA brain/neck results reviewed and discussed c pt -- echo results reviewed, discussed c pt -- EEG results reviewed demonstrating fi ndings consistent c a mild encephalopathy, and without any epileptiform activity -- continue Keppra 1000mg PO q12hr -- continue aspirin 325mg PO daily for stroke prophyalxis -- continue atorvastatin 20mg PO qHS for risk factor optimiz ation -- labs reviewed: LDL 42, HDL 23, total cholesterol 127, Hgb A1C 5.9, mild hypokalemia 3.4, ETOH and UDS negative -- seizure precautions -- pt has been counseled extensively reg arding ETOH and tobacco cessation, c pt verbalizing understanding and agreement of same, reporting is ready to quit -- per [place] state law, pt is not to dri ve/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 Jan Ho. Thank you for including us in the care of this patient. Time: 35 minutes. Addendum by Maximilian Ho MD on 07/30/2016 18:44 I saw and evaluated the patient. I agree with the findings and the plan of care as documented in the note. Extracted from:Title: Neurology Consultation Author: Rin Morales Date: 07/28/16 Patient: ALLYSON LESLIE Robby RN: [id number] Age: 50 years Sex: Male : 1965 Associated Diagnoses: None Author: Rin Morales Basic Information Mr. Leslie is a 50 y/o right-hand lisa nant -Turkmen male c PMH of CVA in 04/2016 c residual L hemiparesis and mild dysarthria, HTN, HLD, ETOH abuse, tobacco abuse who presented to [facility] followi ng episode of increased L hemiparesis an d expressive aphasia the morning of 07/27/2016 that improved, c also reporting that pt had a seizure the evening of 07/27/2016, and possible [address] b rain without contrast performed upon arr ival demonstrated a chronic R internal capusule/caudate head infarction, as well as interval development of a hypodensity in the R parietal lobe concerning for possible recent infarction. Chief Complaint 07/27/2016 14:50 [place] 07/27/2016 11:13 Pt reports left arm weakness, unable to hold anything with the left hand since yesterday, previous hx of stroke History of Present Illness Mr. Leslie is a 50 y/o right-hand lisa nant -Turkmen male c PMH of CVA in 04/2016 c residual L hemiparesis and mild dysarthria, HTN, HLD, ETOH abuse, tobacco abuse who presented to [facility] followi ng episode of increased L hemiparesis an d expressive aphasia the morning of 07/27/2016 that improved, c also reporting that pt had a seizure the evening of 07/27/2016, and possible [address] b rain without contrast performed upon arr ival demonstrated a chronic R internal capusule/caudate head infarction, as well as interval development of a hypodensity in the R parietal lobe concerning for po ssible recent infarction. History obtain ed from pt and at bedside, and from medical records available for review. Pt and report that they woke up early yesterday morning, around 0300 and had s ometime to eat and watched a movie, then went back to bed around [id number] at which time pt was in his usual state of health. They then woke at approximately 0930, and noticed that pt was not speak ing to her, and was dragging his LLE whe n he ambulated, c LUE also weak and pt reporting some decreased sensation of these limbs as well. These symptoms are similar to his stroke symptoms in 04/2016, th ough at that time, his speech was heavil y slurred, and this time he was not able to speak at all- pt describes that presentation as "I couldn't seem to figure out how to talk." Denies any other associated symptoms. Unclear how long this lasted, but his strength and sensation on the L has returned to baseline, c speech perhaps slightly more slurred than his new baseline. Pt's a lso reports that pt has not been taking his aspirin (325mg PO daily)- she states that she bought a bottle of it for him, but did not put it in his pill boxes, and he did not actively take it himself. Pt 's also reports that pt has had seizures previously, the first in -01/2016 which were reportedly attributed to induced seizures in the setting of hypokalemia after a work-up at outside hospital w as completed (this happened prior to his CVA). She also reports that pt was drinking heavier that usual from the -, and that he slept a lot the following 2 days without drinking ETOH, and then r eportedly seized yesterday, c pt reporti ng some mild tremor today. At present time, pt reports feeling well c strength at baseline, and perhaps mildly increased slurred speech. Review of Systems 12 point Review of Systems was reviewed, and pertinent findings have been included in HPI. Unless otherwise noted, the patient denies any bowel or bladder changes or saddle anesthesia. Patient denies fe vers, chills, sweats, nausea or vomiting . No heat/cold intolerance. No new/acute changes in vision, fatigue, nasal congestion, sore [...] mg mucous membrane lozenge: 1 lozenge, MUCOUS MEM, Q4H, PRN: Sore Throat Keppra: 1,000 mg, 100 mL, 400 ml/hr, IVPB, Q12H Lipitor: 20 mg, 1 tab, PO, Bedtime NIFEdipine 60 mg oral tablet, extended release: 60 mg, 1 tab , PO, Daily Saline Flush 0.9%: 10 mL, [...] 0.2 mg, 1 tab, PO, Q4H, PRN: H ypertension influenza virus vaccine, inactivated: 0.5 mL, IM, ONCALL pneumococcal 23-valent vaccine: 0.5 mL, IM, ONCALL sacubitril-valsartan: 2 tab, PO, Q12H tramadol 50 mg oral tablet: 50 mg, 1 tab, PO, Q4H, PRN: Pain Score 1-3 Prescriptions Suspended potassium chloride 20 mEq/15 mL oral liq uid: 20 mEq, 15 mL, PO, BID, for 5 day, 1.33 mEq/ml, 150 mL, 0 Refill(s) Documented Medications Suspended Entresto 49 mg-51 mg oral tablet: 1 tab, PO, BID Lipitor 20 mg oral tablet: 20 mg, 1 tab, PO, Daily NIFEdipine 60 mg oral tablet, extended release: 60 mg, 1 tab , PO, Daily carvedilol 25 mg oral tablet: 25 mg, 1 tab, PO, BID lisinopril 20 mg oral tablet: 20 mg, 1 tab, PO, BID, Medications (16) Active Scheduled: (9) atorvastatin 20 mg TAB 20 mg 1 tab, PO, Bedtime carvedilol 25 mg TAB 25 mg 1 tab, PO, BID chlordiazePOXIDE 25 mg CAP 25 mg 1 cap, PO, QID influenza virus vaccine (inactivated) qu ad PF 0.5 mL syringe 0.5 mL, IM, ONCALL levETIRAcetam 1000 mg/ 100 mL-NaCl 0.75% premix 1,000 mg 10 0 mL, IVPB, Q12H NIFEdipine 60 mg ERT [...] CHF (congestive heart failure) / SNOMED CT [id number] / Confirmed CVA (cerebral vascular accident) / SNOMED CT [id number] / Con firmed HTN - Hypertension / SNOMED CT 8026868059 / Confirmed Hypercholesterolemia / SNOMED CT [id number] / Confirmed Histories Past Medical History: Active CHF (congestive heart failure) ([id number]): Onset in 2012 at 47 years. HTN - Hypertension (4082507395) Hypercholesterolemia (62993358) CVA (cerebral vascular accident) (979929378) Resolved Diabetes ([id number]): Resolved. Spider bite wound (6341117663): Resolved. Syncope (296742482): Resolved. H/O: stroke (8340108907): Resolved. Family History: Type 1 diabetes mellitus Mother Sister Father High blood pressure Father Mother Migraine Father Stroke Father Alzheimer's disease Father Osteoarthritis Father Procedure history: Hand repair ([id number]). Social History Social and Psychosocial Habits Alcohol 07/27/2016 Use: Current Type: Beer Frequency: Daily Previous treatment: None Has alcohol use interfered with work or home life? No Do you ever drink more than intended? No Has anyone been hurt or at risk by your drinking? No Ready to change: No Concerns about alcohol use in household: No Comment: 1 beer a day. 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 Pt currently smokes close to 1 ppd cigarettes, and drinks ETOH heavily per , inc luding an ETOH-energy drink combination. Pt's reports that he was previously supposed to go to ETOH rehab evaluation but was also supposed to start a new job that day, so he instead went to va s new job and did not get evaluated for ETOH rehab program. Physical Examination VS/Measurements Measurements from flowsheet : Measurements 07/28/2016 04:18 Current Weight 99.318 kg 07/27/2016 11:13 Height 165.1 cm , Vital Signs (last 24 hrs) Last Charted _ Temp Oral H 99.3DegF (JUL 28 15:55) Heart Rate Peripheral 88 bpm (JUL 28:) Resp Rate 20 BRMIN (JUL 28:) SBP H 157mmHg (JUL 28:) DBP 89 mmHg (JUL 28:) SpO2 98 % (JUL 28:) GENERAL: Well-developed, well-nourished, in no apparent distress resting in bed c at bedside. HEENT: Normocephalic and atraumatic. Normal conjunctivae, no scleral icterus, pupils equal round reacti ve to light, extraocular movements intac t. Normal hearing to finger rub bilaterally, no tonsillar exudates, neck supple. CHEST: No audible wheezes heard, regular respirations without use of accessory m uscles. CARDIOVASCULAR: No palpable thr ills, regular rate and rhythm. ABDOMEN: Soft, nondistended, nontender. INTEGUMENTARY: no cutaneous lesions, no ulcerations noted on exposed skin. SPINE: no focal TTP over c-spine. No TTP paraspinous mu sculature. EXTREMITIES: no clubbing, acyanotic, nonedematous, no contractures on exposed areas. NEUROLOGIC: Patient is alert and oriented x3. Speech is fluent and appropriate, at times mildly slurred , reliably follows commands. EOMI without nystagmus. Facial motion and sensation intact c mild L nasolabial fold flattening noted. Tongue protrudes midline, pa late elevation intact. Shoulder shrug s ymmetrical. No rhythmic extremity jerking, facial twitching, head/eye version noted. Strength: 5/5 right upper and lower extremities including deltoid, biceps, t riceps, wrist extension, torpedoman's mate, iliopsoas , quadriceps, anterior tibialis, gastrocnemius and extensor hallucis longus. Left upper and lower extremities including deltoid 5-/5, biceps 5-/5, triceps 4+-5-/5 , wrist extension 5-/5, torpedoman's mate 5-/5, iliop soas 4+-5-/5, quadriceps 5-/5, anterior tibialis 4/5, gastrocnemius [...] Mr. Leslie is a 50 y/o right-hand lisa nant -Turk[place] male c PMH of CVA in 04/2016 c residual L hemiparesis and mild dysarthria, HTN, HLD, ETOH abuse, tobacco abuse who presented to [facility] followi ng episode of increased L hemiparesis an d expressive aphasia the morning of 07/27/2016 that improved, c also reporting that pt had a seizure the evening of 07/27/2016, and possible [address] b rain without contrast performed upon arr ival demonstrated a chronic R internal capusule/caudate head infarction, as well as interval development of a hypodensity in the R parietal lobe concerning for po ssible recent infarction. Given history and findings, further evaluation of possible new CVA (while noncompliant c daily anti-platelet therapy and continued tobacco abuse) c concern for seizure activity (induced by suspected ETOH withdrawal) vs other is in progr ess. -- neuro as described above -- CT brain without contrast results reviewed and discussed c pt -- EEG ordered -- start Keppra 1000mg IVPB q12hr -- resume aspirin 325mg Po daily for stroke prophyalxis -- continue atorvastatin 20mg PO qHS for risk factor optimiz ation -- labs reviewed: LDL 42, HDL 23, total cholesterol 127, Hgb A1C 5.9, mild hypokalemia 3.4 -- additional lab studies ordered: ETOH level, UDS -- seizure precautions -- will also start Librium for ETOH withdrawal -- pt counseled extensively regarding ET OH and tobacco cessation, c pt verbalizing understanding and agreement of same, reporting is ready to quit -- per [place] state law, pt is not to dri ve/operate a motor vehicle (including 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 Jan Ho. Thank you for including us in the care of this patient. Time: 90 minutes. Addendum by Maximilian Ho MD on 07/28/2016 21:14 I saw and evaluated the patient. I agree with the findings and the plan of care as documented in the note. Extracted from:Title: WORK EXCUSE 08/18/2014 [facility] thebrenda Author: Ngozi Schmitz DO Date: 08/17/14 EXCUSE PATIENT FROM WORK FROM 08/14 - 08/02 DUE TO HOSPITALIZATION WARRANTING SUBSEQUENT RECOVERY TIME AT HOME. HE MAY RETURN TO WORK ON 08/23/2014 WITHOUT RESTRICTIONS. Extracted from:Title: Admission H&P Obi Author: Abilio Francois MD Date: 08/14/14 Impression and Plan Sepsis: Given tachycardia, fever and leucocytosis. Acute Respiratory Insufficiency: wean oxygen as tolerated. Community acquired pneumonia: Continue a ntibiotic therapy with Rocephin and azithromycin. Possible Influenza infection: start tamiflu. Flu screen is n egative though Accelerated HTN: Due to non compliance. patient has not been on medication for more than 1 month. cardiomyopathy of unclear etiology: Re initiate BECKY and core g. Hypomagnesemia: we will replete and Check in the am. Tobacco abuse disorder DM: Start sliding scale insulin. Nausea and vomiting Myalgia: ? due to influenza infection. Extracted from:Title: Hand 05/13/2014 [facility] Author: Michael Randolph MD Date: 05/13/14 Doing well, pain continues to improve, some serous drainage from hand vss afebrile alert left hand slightly swollen, mild pain with flexion and exten meir of digits no forearm pain, no purulent drainage A/p Okay to go home cont pt on abx for another 5 days keep arm elevated ROM excercises for the digits F/u with dr. Zhong this week in the office Extracted from:Title: Cardiology Consultation Author: Cher Maxwell MD Date: 05/11/14 Cardiology Consult Note Consulted by: Dr. Radha Chu Reason for consult: chest pain Chief complaint: pain and swelling of L hand HPI: Patient is a 48 year old man who pr esented 2 days ago (05/09) with progressive pain, [...] part of the L arm. He was admi tted for surgical intervention for tenosynovitis and went to OR yesterday (05/10) for irrigation and debridement. Overnight, his blood pressure was high 1 82/121 and he began to experience chest pain, 10/10 in severity, localized to the left chest and radiating down his left arm. He was having difficulty differentia ting between the chest pain radiating do wn and the hand pain radiating up that arm. He described the chest pain as the feeling of a heavy load sitting on his chest. He also endorsed associated dyspnea. EKG done at that time showed ST wave sim vation. He was evaluated by glaze supervisor overnight who found his chest pain to be reproducible on exertion and EKG consistent with early repolarization. He w as given morphine with relief of chest p ain as well as ASA and metoprolol for continued hypertension. This morning he endorsed continued chest pain 10 in severity. He states that he has never had chest pa in like this before, but that he does have sharp chest pain and shortness of breath on exertion (walking more than about 2 blocks) which is relieved by rest. He a lso endorses occasionally waking up in t he night gasping for breath as well as [...] Hx: Has smoked for ~30 years, 1 p ack every 3 days. Occasional alcohol use. Denies recreational drug use. Medical Hx: NIDDM HTN heart failure Physical Exam: Vitals: Afebrile and hemodynamically sta ble since admission but with persistently elevated blood pressure. Constitutional: in moderate distress due to pain Neck: no bruits Resp: CTAB without w/r/r; tenderness to palpation of chest w all CV: RRR without m/r/g Ext: no LE edema Head: NC/AT Eyes: anicteric ENMT: MMM Abd: +BS, nontender, mildly distended Telemetry: No events on telemetry Lab evaluation: Labs reviewed in EMR. El ectrolytes WNL and stable. K low at admission, now 3.9. Magnesium 2.0. H/H stable postoperatively, now 11.8/36.2. First set of troponins WNL. No recent BNP or TFTs. EKG shows ST elevation consistent with early repolarization. Most recent TTE shows no change from study 2 days ago. A/P: Patient is a 48 year old man who present ed for L hand pain and was found to have tenosynovitis requiring surgical debridement, and then began to have chest pain postoperatively. Chest pain - Pain reproducible on palpation and does not seem typical f or cardiac pain. - Troponin x1 not elevated and stat echo overnight shows global hypokinesis of L ventricle and LVEF of 40-45%, no change from study done earlier in admission. - Would like to see next set of cardiac enzymes to ensure there is no rise in levels. Hypertension - On lisinopril 5 mg qd and coreg 6.25 m g BID. Formerly also on HCTZ 25 qd but per patient was discontinued in January. - BP has been persistently elevated since admission. - Recommend to double doses of current a ntihypertensives to lisinopril 10 and coreg 12.5 daily. Would also restart hydrochlorothiazide 25 daily. Heart failure - Endorses symptoms at home consistent w ith heart failure including PND, orthopnea, and dyspnea - LVEF 20-25% in 07/2013. 40-45% on latest TTE. - EMR notes history of nonischemic cardi omyopathy; unclear how this diagnosis was made. - Recommend for patient to follow up outpatient for further evaluation. Cher Maxwell MD PGY-1, Anesthesiology Pager [phone] Addendum by Arnulfo Santiago MD on 05/11/2014 21:06 Attending addendum: I have seen and exam ined the patient. Furthermore, I have reviewed the housestaffs note dated 05/11/2014, and I agree with the assessment and plan. See note below for addition s and/or exceptions. Needs better blood pressure control for both his chest pain and cardiomyopathy. Extracted from:Title: General Admission H&P * Author: Marcelina Delgadillo MD Date: 05/09/14 Patient: ANUJ INDIRATIMOTEO Bustamante RN: [id number] Age: 48 years Sex: Male : 1965 Associated Diagnoses: None Author: Marcelina Delgadillo MD Chief Complaint 05/09/2014 05:43 left hand edema and pain 05/09/2014 02:58 Transfer from [facility] for tenosynovitis, Accepting Trevin ALDANA. Swollen L middle finger, spreading to rest of hand. hx CHF, HTN, DM 05/08/2014 18:31 left hand swell ing, tender to touch started 5 days ago. History of Present Illness 48 yo gentleman with history of DM, Bisi schemic CM with EF 30% presented from OSH secondary to worsening left hand pain. Transferred for higher level of care with Plastic Surgery consultation secondary for concern of tenosynovitis. Patient re ports intermittent chills, fevers over the last 3 days. Was fishing one week ago and developed a wound in the palm of his hand, where most of his pain is localize d. However in last 5 days swelling aroun d fingers and wrist significantly increased. Denies chest [...] Negative except as documented in history of pres ent illness. Immunologic: Negative. Integumentary: Negative except as documented in history of present illness. Neurologic: Negative. Psychiatric: Negative. Health Status Current medications: (Selected) Inpatient Medications Ordered Dextrose 50% Syringe: 12.5 gm, 25 mL, IVP, PRN, PRN: Blood G lucose Results Dextrose 50% Syringe: 25 gm, 50 mL, IVP, PRN, PRN: Blood Glu cose Results Saline Flush 0.9%: 10 ml, IVP, PRN, PRN: Line Flush Zofran: 4 mg, IV, Q8H, PRN: Nausea acetaminophen-hydrocodone 325 mg-10 mg o ral tablet: 1 tab, PO, Q4H, PRN: Pain Score 4-6 acetaminophen-hydrocodone 325 mg-5 mg or al tablet: 1 tab, PO, Q4H, PRN: Pain Score 1-3 acetaminophen: 650 mg, 2 tab, PO, Q4H, PRN: Pain 1-3/Temp > 100.4 F aspirin: 81 mg, PO, Daily carvedilol: 6.25 mg, PO, Q12H cefTRIAXone: 1 gm, IVPB, [id number] docusate: 100 mg, 1 cap, PO, BID [...] mg, 2 mL, IVP, ONCE, PRN: Nausea and Vomiting potassium chloride: 20 mEq, IVPB, ONCE vancomycin: 1 gm, IV, ONCE Prescriptions Prescribed carvedilol 12.5 mg oral tablet: 6.25 mg, 0.5 tab, PO, BID, 1 5 tab hydrochlorothiazide 25 mg oral tablet: 2 5 mg, 1 tab, PO, Daily, 30 tab, PRN: for edema lisinopril 5 mg oral tablet: 5 mg, 1 tab, PO, Daily, 30 tab Documented Medications Documented metFORMIN 500 mg oral tablet: 500 mg, 1 tab, PO, BID, 30 tab simvastatin: 40 mg, 1 tab, PO, Bedtime, 30 tab Problem list: All Problems CHF (congestive heart failure) / SNOMED CT [id number] / Confirmed HTN - Hypertension / SNOMED CT [id number] / Confirmed Hypercholesterolemia / SNOMED CT 80391537 / Confirmed Histories Past Medical History: Active CHF (congestive heart failure) ([id number]): Onset in 2012 at 47 years. HTN - Hypertension (7702023248) Hypercholesterolemia (25116649) Resolved Diabetes ([id number]): Resolved. Social History Social and Psychosocial Habits Alcohol 02/07/2014 Use: Current Type: Beer Frequency: Daily Previous treatment: None Has alcohol use interfered with work or home life? No Do you ever drink more than intended? No Has anyone been hurt or at risk by your drinking? No Ready to change: No Concerns about alcohol use in household: No Comment: 1 beer a day. - 02/07/2014 15:47 - Ras Calzada RN Employment/School 02/07/2014 Status: Employed Substance [...] VS/Measurements Vital Signs (last 24 hrs) Last C harted Minimum Maximum Temp 97.8 (MAY 09 05:20) 97.8 (MAY 09 05:20) 98.6 (MAY 09 02:58) Heart Rate 76 (MAY 09 05:20) 72 (MAY 09 05:13) 88 (MAY 09 02:58) Resp Rate 18 (MAY 09 05:20) 16 (MAY 09 05:13) 18 (MAY 09 02:58) SBP 110 (MAY 09 05:20) 110 (MAY 09 05:20) 140 (O 02:58) DBP 62 (MAY 09 05:20) 62 (MAY 09 05:20) H 96 (MAY 09 02:58) Weight 97.727 (MAY 09:38) Height 165.1 (MAY 09 06:38) BMI 35.85 [...] of motion. Integumentary: swelling > 3,4th digit a nd wrist swelling. no obvious drainage or pus. Neurologic: Alert, Oriented, Normal sen magdy, Normal motor function, No focal deficits. Cognition and Speech: Oriented. Psychiatric: Cooperative, Appropriate mood and affect. Review / Management Results review: No [...] 2. CHF EF 20%: euvolemic on exam; contin ue coreg. Hold lisinopril and resume once bp tolerates 3. Diabetes: hold metformin: sliding scale 4. anemia: possible chronic disease conitnue to trend 5. DVT ppx heparin 6. Full Code UTS is primary Addendum by Radha Chu MD on 05/09/2014 14:03 Pt seen and examined by me and agree wit h Dr. Delgadillo's assessment/plan. Pt reports some dyspnea with mowing the lawn, but not upon walking. Denies chest pain and orthopnea. Pt has EKG NSR 75 with pro longed qtc 498, no twi or st changes. Pt 's echo with EF of 40-45% no PFO noted, mild MR/TR. Pt is intermediate risk for any intermediate risk procedure, no further cardiovascular testing needed idalia or to surgery. Will keep NPO for possible surgery this eveni ng per plastics. Extracted from:Title: Cardiology Note * 02/09/2014 [facility] Author: Jose Jackson MD Date: 02/09/14 Impression and Plan ASSESSMENT: 1. Dehydration. 2. Acute kidney injury. 3. Rhabdomyolysis. 4. Chronic systolic heart failure, compensated. 5. Hyperlipidemia. PLAN: - agree with restarting coreg but decrea se to 6.25mg bid. restart lisinopril low dose as well if ok with primary/renal - hold hctz and to use prn lasix if notices leg swelling or dyspnea - will need outpt ischemic workup. ok to d/c home from CV standpoint Extracted from:Title: cardiology Author: Jose Jackson MD Date: 02/08/14 Consultation Dictated. Supervisor Phosphatic Fertilizer pending. 1. dehydration 2. DARSHAN 3. Rhabdomyolysis 4. chronic systolic HF - compensated - Cr better. stop IV fluids - lasix stopped by PCP and placed on HCTZ. - check echo to see what EF is. if still low will need ische william w/up. Plan of Care No Data Provided for This Section Social History Social History Date Source Social History TypeResponse 09/14/2016 [place] Substance Abuse Use: None. Employment/School Status: Employed. Alcohol Current, Type Beer. Frequency: Daily. Previous treatment: None. Alcohol use interferes with work or home: No. Drinks more than intended: No. Others hurt by drinking: No. Ready to change: No. Household alcohol concerns: No.1, 2 Smoking Status Current every day smoker; Type: Cigarett es; Tobacco use per day: 20; Number of years: 25; Total pack years: 12; Previous treatment: None; Ready to change: No; Concerns about tobacco use in household: No ; Exposure to Tobacco Smoke None; Other Tobacco Frequency 1 pack a day.; Cigarette Smoking Last 365 Days Yes; Reg Smoking Cessation Counseling Yes 11-2 beers a day. 09/14/1720 beer a day. Social History [facility]Response 09[facility]14[facility]2016 [facility] Substance Abuse Use: None. Employment/School Status: Employed. Alcohol Current, Type Beer. Frequency: Daily. Previous treatment: None. Alcohol use interferes with work or home: No. Drinks more than intended: No. Others hurt by drinking: No. Ready to change: No. Household alcohol concerns: No.1, 2 Smoking Status Current every day smoker; Type: Cigarett es; Previous treatment: None; Ready to change: No; Concerns about tobacco use in household: No; Exposure to Tobacco Smoke None; Cigarette Smoking Last 365 Days Ye s; Reg Smoking Cessation Counseling Yes; Tobacco use per day: 20; Number of years: 25; Total pack years: 12; Other Tobacco Frequency 1 pack a day.; entered on: 04/18/17 11-2 beers a day. 09/14/1720 beer a day. Social History TypeResponse 09/14/2016 [facility] Caleb mcintosh Substance Abuse Use: None. Employment/School Status: Employed. Alcohol Current, Type Beer. Frequency: Daily. Previous treatment: None. Alcohol use interferes with work or home: No. Drinks more than intended: No. Others hurt by drinking: No. Ready to change: No. Household alcohol concerns: No.1, 2 Smoking Status Current every day smoker; Type: Cigarett es; Tobacco use per day: 20; Number of years: 25; Total pack years: 12; Previous treatment: None; Ready to change: No; Concerns about tobacco use in household: No ; Exposure to Tobacco Smoke None; Other Tobacco Frequency 1 pack a day.; Cigarette Smoking Last 365 Days Yes; Reg Smoking Cessation Counseling Yes 11-2 beers a day. 09/14/1720 beer a day. Social History TypeResponse 07/27/2016 [facility] Substance Abuse Use: None. Employment/School Status: Employed. Alcohol Current, Type Beer. Frequency: Daily. Previous treatment: None. Alcohol use interferes with work or home: No. Drinks more than intended: No. Others hurt by drinking: No. Ready to change: No. Household alcohol concerns: No.1 Smoking Status Current every day smoker; Type: Cigarett es; Tobacco use per day: 8; Number of years: 25; Total pack years: 12; Previous treatment: None; Ready to change: No; Concerns about tobacco use in household: No; Exposure to Tobacco Smoke None; Other T obacco Frequency 1/3 pack per day; Cigarette Smoking Last 365 Days Yes; Reg Smoking Cessation Counseling Yes 11 beer a day. Social History TypeResponse 02/07/2014 [facility] Substance Abuse Use: None Employment/School Status: Employed Alcohol Use: Current, Type: Beer, Frequency: Aiyana ly, Previous treatment: None, Has alcohol use interfered with work or home life? No, Do you ever drink more than intended? No, Has anyone been hurt or at risk by your drinking? No, Ready to change: No, Concerns about alcohol use in household: No1 Smoking Status Current every day smoker, Type: Cigarett es, Exposure to Tobacco Smoke None, Cigarette Smoking Last 365 Days Yes, Reg Smoking Cessation Counseling Yes 11 beer a day. Family History No Data Provided for This Section Advance Directives No Data Provided for This Section Functional Status No Data Provided for This Section
[2020-02-18 07:49] LABS: Absolute Lymphocytes (CBC) 1.4 K/uL (0.7-4.9); Basophils % 0.4 % (0-1.3); Lymphocytes % 17.5 % (15.3-44.8); MPV 8.8 fL (7.6-11.3); RBC Red Blood Cell Count 4.48 M/uL (4.33-5.43)
[2020-02-18 07:52] LABS: Protime INR 1.05
[2020-02-18 08:00] LABS: ALT/SGPT 31 U/L (12-78); AST/SGOT 21 U/L (15-37); Alkaline Phosphatase 90 U/L (45-117); BUN Blood Urea Nitrogen 16 mg/dL (7-18); Bicarbonate 32 mmol/L (21-32); Bilirubin Direct 0.1 mg/dL (0-0.2); Bilirubin Total 0.4 mg/dL (0.2-1.0); Glucose Level 111 mg/dL (74-106); Lipase 37 U/L (73-393); Potassium 3.1 mmol/L (3.5-5.1); Protein, Total 7.9 g/dL (6.4-8.2); Sodium Level 138 mmol/L (136-145)
--- NOTE | 2020-02-18 08:58 | RAD REPORT ---
EXAM DESCRIPTION: CTAbdomen Pelvis W Contrast - 02/18/2020 8:45 am CLINICAL HISTORY: Abdominal pain. Abd pain;Distention;Constipation COMPARISON: Abdomen Pelvis W Contrast dated 07/28/2019 TECHNIQUE: Biphasic CT imaging of the abdomen and pelvis was performed with 100 ml non-ionic IV cont rast. All CT scans are performed using dose optimization technique as appropriate and may include automated exposure control or mA/KV adjustment according to patient size. FINDINGS: The lung bases are clear. The liver, spleen, pancreas, adrenal glands and kidneys are within normal limits. No bowel obstruction, free air, free fluid or abscess. Moderate stool is retained in the colon. The a ppendix is normal. No evidence of significant lymphadenopathy. No suspicious bony findings. IMPRESSION: No acute intra-abdominal or pelvic finding. Moderate fecal retention.
--- NOTE | 2020-02-18 09:39 | ER ---
Nurse's Notes [facility] Name: Shawna Mccall Age: 54 yrs Sex: Male : 1965 Arrival Date: 02/18/2020 Time: 06:40 Bed 8 Private MD: Diagnosis: Constipation, unspecified Presentation: 02/17 06:43 Chief complaint: Patient states: I have been constipated for the past 3 weeks and jb4 having abdominal pain. I think it is fluid build up on my stomach. I have CHF. 06:43 Coronavirus screen: Proceed with normal triage. Ebola Screen: No symptoms or risks jb4 identified at this time. Initial Sepsis Screen: Does the patient meet any 2 criteria? HR > 90 bpm. Yes Does the patient have a suspected source of infection? No. Patient's initial sepsis screen is negative. Risk Assessment: Do you want to hurt yourself or someone else? Patient reports no desire to harm self or others. Onset of symptoms was January 28, 2020. Transition of care: patient was not received from another setting of care. 06:43 Method Of Arrival: Ambulatory jb4 06:43 Acuity: INGRID 3 jb4 Historical: - Allergies: 07:05 No Known Allergies; jb4 - Home Meds: 07:05 atorvastatin 80 mg Oral tab 1 tab once daily [Active]; potassium chloride 20 mEq Oral jb4 TbER 1 tab once daily [Active]; Entresto 49-51 mg oral tab 1 tab 2 times per day [Active]; Plavix 75 mg Oral tab 1 tab once daily [Active]; - PMHx: 07:05 CHF; Hypertension; Migraines; Seizures; CVA; jb4 - PSHx: 07:05 L arm; jb4 - Immunization history:: Adult Immunizations up to date. - Social history:: Smoking status: Patient reports the use of cigarette tobacco products, smokes .25 packs per day, Patient uses alcohol, occasionally. Patient/guardian denies using street drugs. Screenin:08 Abuse screen: Denies threats or abuse. Denies injuries from another. Nutritional sv screening: No deficits noted. Tuberculosis screening: No symptoms or risk factors identified. Fall Risk None identified. Assessment: 08:00 General: Appears in no apparent distress. comfortable, well developed, Behavior is sv calm, cooperative, appropriate for age. Pain: Complains of pain in abdomen diffusely Pain currently is 5 out of 10 on a pain scale. Neuro: Level of Consciousness is awake, alert, obeys commands, Oriented to person, place, time, situation, Moves all extremities. Full function Speech is normal. Respiratory: Respiratory effort is even, unlabored, Respiratory pattern is regular, symmetrical. GI: Abdomen is flat, Reports constipation. Derm: Skin is normal. 10:20 Reassessment: Patient appears in no apparent distress at this time. No changes from sv previously documented assessment. Patient and/or family updated on plan of care and expected duration. Pain level reassessed. Patient is alert, oriented x 3, equal unlabored respirations, skin warm/dry/pink. Vital Signs: 06:43 BP 134 / 90; Pulse 97; Resp 16; Temp 98.0(O); Pulse Ox 98% on R/A; Weight 118.84 kg jb4 (R); Height 5 ft. 5 in. (165.10 cm) (R); Pain 5/10; 07:30 BP 111 / 77; Pulse 94; Resp 18; Pulse Ox 100% ; sv 08:03 BP 104 / 58; Pulse 86; Resp 18; Pulse Ox 100% on R/A; sv 06:43 Body Mass Index 43.60 (118.84 kg, 165.10 cm) jb4 ED Course: 06:40 Patient arrived in ED. do 06:43 [facility] kb 06:43 Geronimo Acuña MD is Attending Physician. kb 07:00 Triage completed. jb4 07:05 Arm band placed on right wrist. jb4 07:13 Edith Garcia, JOSE is Primary Nurse. sv 07:15 Patient has correct armband on for positive identification. Placed in gown. Bed in low sv position. Call light in reach. Pulse ox on. NIBP on. Door closed. Head of bed elevated. 07:30 Missed attempt(s): 20 gauge in right antecubital area. Bleeding controlled, band aid dh3 applied, catheter tip intact. 07:32 Initial lab(s) drawn, by me, sent to lab. Inserted saline lock: 20 gauge in left dh3 antecubital area, using aseptic technique. Blood collected. 07:58 Chest Single View XRAY In Process Unspecified. EDMS 08:04 Basic Metabolic Panel Sent. sv 08:[address] Scan. sv 08:45 CT Abd/Pelvis - IV Contrast Only In Process Unspecified. EDMS 08:46 CT completed. Patient tolerated procedure well. Patient moved back from CT. bq 10:20 No provider procedures requiring assistance completed. Patient did not have IV access ss during this emergency room visit. Administered Medications: 10:20 Drug: Potassium Chloride 40 mEq Route: PO; ss 10:20 Follow up: Response: No adverse reaction; Medication administered at discharge. ss Outcome: 09:38 Discharge ordered by MD. kb 10:20 Discharged to home ambulatory. ss 10:20 Condition: good 10:20 Discharge instructions given to patient, Instructed on discharge instructions, follow up and referral plans. Demonstrated understanding of instructions, follow-up care. 10:21 Patient left the ED. ss Signatures: Dispatcher [employer] EDKristen Marie, INSURANCE REPRESENTATIVE-C INSURANCE REPRESENTATIVE-Edith Julio RN RN Reshma Sy Shelby, RN RN Yeimy Dorman James RN RN jb4 Herlinda Herrera [facility]
--- NOTE | 2020-02-18 09:39 | EDPHYS ---
Physician Documentation [facility] Name: Shawna Mccall Age: 54 yrs Sex: Male : 1965 Arrival Date: 02/18/2020 Time: 06:40 Bed 8 Private MD: ED Physician Geronimo Acuña HPI: 02/17 07:01 This 54 yrs old Black Male presents to ER via Ambulatory with complaints of kb Constipation, Abdominal Pain. 07:02 The patient presents with abdominal pain that is diffuse, abdominal distention that is kb diffuse. Onset: The symptoms/episode began/occurred 3 week(s) ago. The symptoms do not radiate. Associated signs and symptoms: Pertinent positives: constipation, Pertinent negatives: nausea, vomiting, and diarrhea, chest pain, fever, shortness of breath. The symptoms are described as constant. Modifying factors: The symptoms are alleviated by nothing, the symptoms are aggravated by nothing. Severity of pain: At its worst the pain was moderate in the emergency department the pain is unchanged. The patient has not experienced similar symptoms in the past. The patient has not recently seen a physician. Pt reports abd pain and distention and constipation that started 3 weeks ago. Came in today because he is more uncomfortable. . Historical: - Allergies: 07:05 No Known Allergies; jb4 - Home Meds: 07:05 atorvastatin 80 mg Oral tab 1 tab once daily [Active]; potassium chloride 20 mEq Oral jb4 TbER 1 tab once daily [Active]; Entresto 49-51 mg oral tab 1 tab 2 times per day [Active]; Plavix 75 mg Oral tab 1 tab once daily [Active]; - PMHx: 07:05 CHF; Hypertension; Migraines; Seizures; CVA; jb4 - PSHx: 07:05 L arm; jb4 - Immunization history:: Adult Immunizations up to date. - Social history:: Smoking status: Patient reports the use of cigarette tobacco products, smokes .25 packs per day, Patient uses alcohol, occasionally. Patient/guardian denies using street drugs. ROS: 07:02 Constitutional: Negative for fever, chills, and weight loss, Cardiovascular: Negative kb for chest pain, palpitations, and edema, Respiratory: Negative for shortness of breath, cough, wheezing, and pleuritic chest pain, Back: Negative for injury and pain, : Negative for injury, bleeding, discharge, and swelling, MS/Extremity: Negative for injury and deformity, Skin: Negative for injury, rash, and discoloration, Neuro: Negative for headache, weakness, numbness, tingling, and seizure. 07:02 Abdomen/GI: Positive for abdominal pain, constipation, abdominal distension, Negative for nausea, vomiting, and diarrhea. Exam: 07:02 Constitutional: This is a well developed, well nourished patient who is awake, alert, kb and in no acute distress. Head/Face: Normocephalic, atraumatic. Chest/axilla: Normal chest wall appearance and motion. Nontender with no deformity. No lesions are appreciated. Cardiovascular: Regular rate and rhythm with a normal S1 and S2. No gallops, murmurs, or rubs. Normal PMI, no JVD. No pulse deficits. Respiratory: Lungs have equal breath sounds bilaterally, clear to auscultation and percussion. No rales, rhonchi or wheezes noted. No increased work of breathing, no retractions or nasal flaring. Back: No spinal tenderness. No costovertebral tenderness. Full range of motion. Skin: Warm, dry with normal turgor. Normal color with no rashes, no lesions, and no evidence of cellulitis. MS/ Extremity: Pulses equal, no cyanosis. Neurovascular intact. Full, normal range of motion. Neuro: Awake and alert, GCS 15, oriented to person, place, time, and situation. Cranial nerves II-XII grossly intact. Motor strength 5/5 in all extremities. Sensory grossly intact. Cerebellar exam normal. Normal gait. 07:02 Abdomen/GI: Inspection: distension, that is moderate, in the abdomen diffusely, Bowel sounds: normal, in all quadrants, Palpation: mild abdominal tenderness, in all quadrants. Vital Signs: 06:43 BP 134 / 90; Pulse 97; Resp 16; Temp 98.0(O); Pulse Ox 98% on R/A; Weight 118.84 kg jb4 (R); Height 5 ft. 5 in. (165.10 cm) (R); Pain 5/10; 07:30 BP 111 / 77; Pulse 94; Resp 18; Pulse Ox 100% ; sv 08:03 BP 104 / 58; Pulse 86; Resp 18; Pulse Ox 100% on R/A; sv 06:43 Body Mass Index 43.60 (118.84 kg, 165.10 cm) jb4 MDM: 06:47 Patient medically screened. kb 07:01 Data reviewed: vital signs, nurses notes. Data interpreted: Pulse oximetry: on room air kb is 98 %. Interpretation: normal. 09:37 Counseling: I had a detailed discussion with the patient and/or guardian regarding: the kb historical points, exam findings, and any diagnostic results supporting the discharge/admit diagnosis, lab results, radiology results, the need for outpatient follow up, a family practitioner, to return to the emergency department if symptoms worsen or persist or if there are any questions or concerns that arise at home. 02/17 06:52 Order name: Basic Metabolic Panel kb 02/17 06:52 Order name: CBC with Diff; Complete Time: 07:57 kb 02/17 06:52 Order name: Hepatic Function; Complete Time: 08:04 kb 02/17 06:52 Order name: Lipase; Complete Time: 08:04 kb 02/17 06:52 Order name: Protime (+inr); Complete Time: 07:57 kb 02/17 06:52 Order name: Ptt, Activated; Complete Time: 07:57 kb 02/17 06:52 Order name: IV Saline Lock; Complete Time: 07:36 kb 02/17 06:52 Order name: Labs collected and sent; Complete Time: 07:36 kb 02/17 06:52 Order name: Chest Single View XRAY kb 02/17 06:53 Order name: Basic Metabolic Panel; Complete Time: 08:04 EDMS 02/17 07:57 Order name: CT Abd/Pelvis - IV Contrast Only; Complete Time: 09:15 kb Administered Medications: 10:20 Drug: Potassium Chloride 40 mEq Route: PO; ss 10:20 Follow up: Response: No adverse reaction; Medication administered at discharge. ss Disposition: 02/18 07:22 Co-signature as Attending Physician, Geronimo Acuña MD. [email or web address] Disposition: 02/18/20 09:38 Discharged to Home. Impression: Constipation, unspecified. - Condition is Stable. - Discharge Instructions: Constipation, Adult, [id number]. - Medication Reconciliation Form, Thank You Letter, Antibiotic Education, Prescription Opioid Use form. - Follow up: Emergency Department; When: As needed; Reason: Worsening of condition. Follow up: Private Physician; When: 2 - 3 days; Reason: Recheck today's complaints, Continuance of care, Re-evaluation by your physician. Signatures: Dispatcher [employer] Kristen Ji, MEJIA ROSARIO-Merlyn Haro RN RN ss Norman Rico RN RN jb4 Geronimo Acuña MD MD [email or web address] Corrections: (The following items were deleted from the chart) 02/17 10:21 09:38 02/18/2020 09:38 Discharged to Home. Impression: Constipation, unspecified. ss Condition is Stable. Forms are Medication Reconciliation Form, Thank You Letter, Antibiotic Education, Prescription Opioid Use. Follow up: Emergency Department; When: As needed; Reason: Worsening of condition. Follow up: Private Physician; When: 2 - 3 days; Reason: Recheck today's complaints, Continuance of care, Re-evaluation by your physician. kb
[2020-02-18] MEDS ORDERED: BISACODYL E.C. 5 MG TAB PO ONE (10:21)
[2020-02-18] MEDS ORDERED: POTASSIUM CL SA 10 MEQ TAB PO ONE (10:21)
[2020-02-18 10:44] VITALS: TEMP 98
[2020-02-18 10:45] VITALS: O2SAT 100
[2020-02-18 10:47] VITALS: BP 104/58
--- NOTE | 2020-02-18 12:39 | RAD REPORT ---
EXAM DESCRIPTION: RAD - Chest Single View - 02/18/2020 7:59 am CLINICAL HISTORY: edema Chest pain. COMPARISON: Chest Single View dated 07/28/2019; Chest Single View dated 10/18/2018; Chest Single View dated 09/08/2017; Chest Single View dated 08/09/2017 FINDINGS: Portable technique limits examination quality. The lungs are grossly clear. The heart is normal in size. No displaced fractures. IMPRESSION: No acute intrathoracic process suspected.
== END 2020-02-18 10:21 | disposition home or self-care (01) ==
LOC: ER 06:39
DX: K59.00 Constipation, unspecified (principal); I10 Essential (primary) hypertension; I50.9 Heart failure, unspecified; G40.909 Epilepsy, unspecified, not intractable, without status epilepticus; F17.210 Nicotine dependence, cigarettes, uncomplicated; Z79.01 Long term (current) use of anticoagulants; Z86.73 Personal history of transient ischemic attack (TIA), and cerebral infarction without residual deficits
CPT/HCPCS: 36415; 71045; 74177; 80048; 80076; 83690; 85025; 85610; 85730; 99284; Q9967

== ENCOUNTER 2020-05-29 12:05 | Inpatient (IN) | payer OTHER, SELFPAY ==
--- OUTSIDE RECORDS SUMMARY | 2020-05-29 12:08 | XMS REPORT | Clinical Summary ---
:1965 Author Organization [facility] Address [address] [place] [address] Care Team Providers Name Role Phone Kory Botello MD Primary Care Provider Allergies No Known Active Allergies Medications Medication Sig Dispensed Refills Start Date End Date Status carvedilol (COREG) 25 Take 25 mg by 0 Active MG tablet mouth 2 (two) times a day with meals. lisinopril Take 20 mg by 0 Activ e (PRINIVIL,ZESTRIL) 20 mouth 2 (two) mg tablet times a day. sacubitril-valsartan Take 1 tablet by 0 Active (ENTRESTO) 49-51 mg mouth 2 (two) tablet per tablet times a day. Active Problems Problem Noted Date Cerebrovascular accident (CVA) due to embolism of righ t middle cerebral 09/18/2016 artery Immunizations Name Administration Dates Next Due FLUZONE QUAD PF 09/18/2016 Surgical History Surgery Date Site/Laterality Comments HAND SURGERY Medical History Medical History Date Comments Hypertension Stroke (HCC) Seizures (HCC) Heart failure (HCC) High cholesterol Diabetes mellitus (HCC) CHF (congestive heart failure) (HCC) Social History Tobacco Use Types Packs/Day Years Used Date Current Every Day Smoker Cigarettes 1 Alcohol Use Drinks/Week oz/Week Comments Yes Sex Assigned at Date Recorded Not on file Last Filed Vital Signs Not on file Plan of Treatment Health Maintenance Due Date Last Done Comments COLONOSCOPY SCREENING 11/22/2017 SHINGLES VACCINES (#1) 11/22/2017 INFLUENZA VACCINE 03/02/2020 09/18/2016 Implants Implanted Type Area Door To Door Salesman Device Shelf Model / Identifier Expiration Serial / Date Lot Neuron Select 5f 130 [place] - [id number] Surgical N/A: [employer] [id number] / Implanted: 09/18/2016 at [facility] (Quantity not on file) Implants; N/A / Expanders; Extenders; Surgical Wires Catheter [id number] Reperfusion High Flow Tubing 6.0f 132cm - Log [id number] Surgical N/A: [employer] [id number] / Implanted: 09/18/2016 at [facility] (Quantity not on file) Implants; N/A / Expanders; Extenders; Surgical Wires Catheter Fish Egg Packer [place] [id number] [facility] - [id number] Surgical N/A: KORINA [id number] / Implanted: 09/18/2016 at [facility] (Quantity not on file) Imp lants; N/A NEUROVASCULAR / Expanders; Extenders; Surgical Wires Results Not on fileafter 05/29/2019 Advance Directives For more information, please contact: [phone] Type Date Recorded Patient Brass Sorter Explanati on Advance Directives, Living Will 09/18/2016 10:59 AM and Medical Power of Laborer/Grade Check
--- OUTSIDE RECORDS SUMMARY | 2020-05-29 12:19 | XMS REPORT | Continuity of Care Document ---
:1965 Author Organization [employer] Care Team Providers Name Role Phone [employer] Unavailable Un available Problems Problem Status Onset Classification Date Comments Sourc e Date Reported Headache 04/24/2017 017 [place] GOMES Active 017 [place] HEADACHE Active 017 [place] I63.9 STROKE, R58 Active Greater HEMORRHAGE 017 [facility] STROKE Active Greater 017 [facility] Discharge Diagnosis: 08/30/2016 [facility] Seizure 017 [facility] SEIZURE Active Greater 017 [facility] ACUTE CEREBROVASCULAR Active Greater ACCIDENT 016 [facility] ARM WEAKNESS, FACIAL Active Greater DROOP 016 [facility] Discharge Diagnosis: 03/10/2016 [facility] Acute viral syndrome 016 [facility] Discharge Diagnosis: 03/10/2016 Greater Atypical chest pain 016 [facility] Discharge Diagnosis: 03/10/2016 [facility] Acute hypokalemia 016 ights CHEST PAIN Active Greate r 016 [facility] Discharge Diagnosis: 02/21/2016 Greater Syncope 016 [facility] Discharge Diagnosis: 02/21/2016 Greater Tonic seizure 016 [facility] SYNCOPE Active Greater 016 [facility] Discharge Diagnosis: 11/25/2014 Muscle strain 015 [facility] [facility] Discharge Diagnosis: 11/25/2014 Flank pain 015 [place] BACK PAIN Active 015 [place] SHORTNESS OF BREATH Active 015 [place] OTHER TENOSYNOVITIS OF Active [facility] HAND AND WRIST 014 [facility] HAND EDEMA Active 014 [place] HAND INFECTION Active Edgar medrano 014 [facility] ABDOMINAL PAIN Active 014 [place] Discharge Diagnosis: 12/02/2013 Acute bronchitis 014 [place] SPITTING UP BLOOD Active 014 [place] FLU LIKE SYMPTOMS Active 013 [place] Congestive heart Active Problem 02/11/2018 Mi antione failure (disorder) 013 N euro,[facility], [facility] Cerebrovascular Active Problem 02/11/2018 Mis jai accident (disorder) Neuro,[facility], [facility] Diabetes mellitus Resolved Problem 02/11/2018 M ischer (disorder) Neuro,[facility], [facility] History of - CVA Resolved Problem 02/11/2018 Mi antione (context-dependent N euro, category) [facility], [facility] Hypertensive disorder, Active Problem 02/11/2018 [facility]ischer systemic arterial Ne uro, (disorder) [facility], [facility] Hypercholesterolemia Active Problem 02/11/2018 [place]ischer (disorder) Neuro,[facility], [facility] Obesity (disorder) Active Problem 02/11/2018 [facility] Neuro,[facility], [facility] Seizure (finding) Active Problem 02/11/2018 [place]cher Neuro,[facility], [facility] Spider bite wound Resolved Problem 02/11/2018 M ischer (disorder) Neuro,[facility], [facility] Syncope (disorder) Resolved Problem 02/11/2018 [facility] Neuro,[facility], [facility] CHF NOS Active [facility] RENAL FAILURE NOS Active [facility] BACTERIAL INFECTION Active [facility] SEPTICEMIA NOS Active [facility] LEFT SIDE - STROKE Active [facility] CEREBRAL INFARCTION, Active [facility] UNSPECIFIED [facility] ALCOHOL Active Prevention HEMORRHAGE, NOT Active [facility] reater [facility] ANESTHESIA OF SKIN Active [facility] Medications Medication Details Route Status Patient Ordering Order Source Instructions Provider Date topiramate 25 MG See Active 04/19[facility] Oral Tablet Instructions, 2017 [place] [Topamax] 1 tab PO BID for 7 days, then 2 tab PO BID thereafter, # 70 tab, 0 Refill(s), Pharmacy: [facility]/pharmacy #[id number] clopidogrel 75 MG 75 mg = 1 tab, Active 04/19/ Oral Tablet PO, Daily, # [address] [Plavix] 30 tab, 0 Refill(s), Pharmacy: [facility]/pharmacy #[id number] NIFEdipine 60 mg 60 mg = 1 tab, Active oral tablet, PO, Daily, # 2017 [place] extended release 30 tab, 0 Refill(s), Pharmacy: [facility]/pharmacy #[id number] carvedilol 25 mg 25 mg = 1 tab, Active oral tablet PO, BID, # 60 2016 [place] tab, 0 Refill(s), Pharmacy: [facility]/pharmacy #[id number] atorvastatin 20 mg 20 mg = 1 tab, Active oral tablet PO, Bedtime, # 2017 [place] 30 tab, 0 Refill(s), Pharmacy: [facility]/pharmacy #[id number] Aspirin 325 MG 325 mg = 1 Active Enteric Coated tab, PO, 2017 [place] Tablet Daily, # 100 tab, 0 Refill(s), Pharmacy: [facility]/pharmacy #[id number] sacubitril 97 MG / 1 tab, PO, Active valsartan 103 MG BID, # 60 tab, 2016 [facility] Oral Tablet 0 Refill(s), Pharmacy: [facility]/pharmacy #[id number] heparin sodium, Notes: porcine Inactive porcine [...] Longer MG Oral Tablet as:Keppra) Active 2016 [place] [Keppra] carvedilol Notes: Give No Longer with food. Active 2016 [facility] (Same As: Coreg) Erda's wort 1 tab, PO, Active oral capsule [id number], 0 2016eas t Refill(s) Ibuprofen 800 mg, PO, Active BID, 0 2016 Refill(s) gabapentin 300 MG 300 mg = 1 Active Oral Capsule cap, PO, TID, 2016 [place] # 90 cap, 1 Refill(s) Hydralazine Notes: [...] Do not Inactive [place] r exceed 4 2017 [place] gm/day. (Same as: Tylenol) Saline Flush 0.9% Notes: Same Inactive H Greater as: BD 2016 [facility] Posiflush Sterile Levetiracetam 1000 Notes: (Same Inactive Greater MG Oral Tablet as:Keppra) 2015 [place] [Keppra] Omnipaque 350 Notes: (same Inactive G reater as:Omnipaque 2015 [facility] 350). WASTE: F/P - Black; E - Municipal Trash Bin Levetiracetam 750 750 mg = 1 Active Greater MG Oral Tablet tab, PO, BID, 2015 [place] [Keppra] # 60 tab, 0 Refill(s) Aspirin 325 MG 325 mg = 1 Active Gre ater Oral Tablet tab, PO, 2015 [facility] Daily, # 50 tab, 0 Refill(s) Aspirin Notes: Take No Longer Greater with food. Active 2015 [facility] Mikien Notes: (Same No Longer Greate r As: Ambien) Active 2015 [facility] Chlordiazepoxide 25 mg, 1 cap, No Longer Greater Hydrochloride 25 Route: PO, Active 2015 [place] MG Oral Capsule Drug form: CAP, QID, Dosing Weight 97.727, kg, Start date: 07/28/16 17:00:00 INSURANCE PROCESSING CLERK, Duration: 30 day, Stop date: 08/27/16 13:00:00 INSURANCE PROCESSING CLERK Keppra 1,000 mg, 100 No Longer Great er mL, Route: Active 2015 [facility] IVPB, Drug form: INJ, Q12H, Dosing Weight 97.727, kg, Priority: NOW, Start date: 07/28/16 14:54:00 INSURANCE PROCESSING CLERK, Duration: 30 day, Stop date: 08/27/16 9:00:00 INSURANCE PROCESSING CLERK Levetiracetam 1000 1,000 mg, Inactive Greater MG Oral Tablet Route: PO, 2015 [facility] [Keppra] Drug form: TAB, Q12H, Dosing Weight 97.727, kg, Priority: NOW, Start date: 07/28/16 14:53:00 INSURANCE PROCESSING CLERK, Duration: 30 day, Stop date: 08/27/16 9:00:00 INSURANCE PROCESSING CLERK Benzocaine 15 MG / Notes: Same No Longer Greater Menthol 3.6 MG as: Cepacol Active 2015 [facility] [Cepacol Sore Throat Pain Relief 15/3.6] tramadol Notes: Not to No Longer Grea ter hydrochloride 50 exceed Active 2015 [place] MG Oral Tablet 400mg/day. (Same As: Ultram) sacubitril 49 MG / 1 tab, Route: No Longer 07/28 Greater valsartan 51 MG PO, Drug Form: Active 2015 H eights Oral Tablet TAB, Dosing [Entresto] Weight 97.727, kg, BID, Start date: 07/28/16 9:00:00 INSURANCE PROCESSING CLERK, Duration: 30 day, Stop date: 08/26/16 17:00:00 INSURANCE PROCESSING CLERK Ativan Notes: (Same No Longer Great r as: Ativan) Active 2015 [facility] Saline Flush 0.9% Notes: Same No Longer Greater as: BD Active 2015 [facility] Posiflush Sterile Lipitor Notes: (Same No Longer [facility] r As: Lipitor) Active 2015 sacubitril-valsart Notes: (Same No Longer Greater an as: Entresto) 2015 [facility] Avoid in patients with history of angioedema due to BECKY inhibitor or ARB therapy. Do not use concomitantly or within 36 hours of BECKY inhibitors Clonidine Notes: (Same No Longer [facility] Hydrochloride 0.2 As: Catapres) Active 2015 MG Oral Tablet Tylenol Notes: Do not No Longer Great er exceed 4 Active 2015 [facility] gm/day. (Same as: Tylenol) Saline Flush 0.9% Notes: Same No Longer Greater as: BD Active 2015 [facility] Posiflush Sterile 24 HR Nifedipine Notes: (Same No Longer Greater 60 MG Extended as: Adalat CC, Active 2015 ights Release Tablet Procardia XL) Give on empty stomach. Take 1 hour before or 2 hours after meal; "Avoid grapefruit and grapefruit juice". Do not crush carvedilol Notes: Give No Longer Gre[facility] ter with food. Active 2015 [facility] (Same As: Coreg) Keppra Notes: [...] (Same Inactive Greater MG / Hydrocodone as: [place] [facility] Bitartrate 5 MG 325/5) Do not Oral Tablet [[place] exceed 4gm/day 5/325] of acetaminophen. Saline Flush [...] Oral Tablet PO, Daily 2015 [facility] [Lipitor] 24 HR Nifedipine 60 [...] Grea ter Cocktail = 2015 [facility] antacid with simethicone 22.5 mL - lidocaine viscous 7.5 mL Tylenol Notes: Do not Inactive [facility] 4 2015 [facility] gm/day. (Same as: Tylenol) Sodium Chloride 1,000 mL, 1000 Inactive Greater 0.154 MEQ/ML ml/hr, Infuse 2015 [facility] ts Injectable Over: 1 hr, Solution Route: IV, 1,000, Drug form: INJ, ONCE, Priority: STAT, Dosing Weight 94.545 kg, Start date: 03/07/16 13:04:00 CDT, Duration: 1 doses or times, Stop date: 03/07/16 13:04:00 CDT Saline Flush 0.9% Notes: Same Inactive H Greater as: BD 2015 [facility] Posiflush Sterile Omnipaque 350 Notes: (same Inactive G reater as:Omnipaque 2016 [facility] 350). WASTE: F/P - Black; E - Municipal Trash Bin Hydralazine Notes: (Same Inactive Gre ater as: 2015 [facility] Apresoline) Push over 5 minutes Acetaminophen Notes: Do not Inactive Greater exceed 4 2015 [facility] gm/day. (Same as: Tylenol) Labetalol 20 mg, 4 mL, Inactive Great er Route: IVP, 2015 [facility] Drug form: INJ, ONCE, Dosing Weight 81.818, kg, Priority: STAT, Start date: 02/18/16 12:26:00 CDT, Stop date: 02/18/16 12:26:00 CDT Saline Flush 0.9% Notes: Same Inactive H Greater as: BD 2015 [facility] Posiflush Sterile Naproxen sodium 550 [...] Active oral tablet PO, Daily, # [address] [facility] [address] 60 tab, 0 Refill(s) carvedilol 25 mg 25 mg = 1 tab, Active oral tablet PO, Q12H, # 60 2014 [place] tab, 0 Refill(s) Aspirin 81 MG 81 mg = 1 tab, Active Enteric Coated PO, Daily, # 2014 [place] Tablet 30 tab, 0 Refill(s) Hydrochlorothiazid 25 mg = 1 tab, Active e 25 MG Oral PO, Daily, # 2015 [place] Tablet 30 tab, 0 Refill(s) Alprazolam 0.5 MG 0.5 mg = 1 Active Oral Tablet tab, PO, TID, 2014 [facility] [Xanax] Anxiety, # 24 tab, 0 [...] H oral tablet Bedtime, # 30 2014 [facility] ast tab, 0 Refill(s) Metformin 500 mg = 1 Active hydrochloride 500 tab, PO, BID, 2014 [place] MG Oral Tablet # 60 tab, 0 Refill(s) vancomycin + 2001 mg: Inactive Dextrose 5% in infuse over 2014 [place] IV 250 mL 2.5 hours vancomycin + 2001 mg: Inactive Dextrose 5% in infuse over 2014 [place] IV 250 mL 2.5 hours Vancomycin [...] Active 2014 [facility] Ipratropium [place] 0.167 MG/ML Inhalant Solution Vasotec Notes: (Same [...] [facility] 400) Magnesium oxide [id number] elemental magnesium Dose=____mg magnesium oxide (___mg elemental [...] Active 2014 [facility] Ipratropium [place] 0.167 MG/ML Inhalant Solution Ondansetron Notes: (Same [...] 1000 Inactive 0.154 MEQ/ML ml/hr, Infuse 2014 [place] Injectable Over: 1 hr, Solution Route: IV, [...] Tylenol) Acetaminophen 325 1 tab, PO, Active [place] MG / Hydrocodone Q4H, Pain 2014 Medic al Bitartrate 10 MG Score 4-6, # Ce nter Oral Tablet 42 tab, 0 Refill(s), other Hydrochlorothiazid 25 mg = 1 tab, Active [place] e 25 MG Oral PO, Daily, # 2014 Medica l Tablet 14 tab, 0 Center Refill(s) lisinopril 10 mg 10 mg = 1 tab, Active [place] oral tablet PO, Daily, # 2014 [facility] 14 tab, 0 Center Refill(s) tramadol 50 mg = 1 tab, Active [place] hydrochloride 50 PO, Q6H, # 30 2014 M edical MG Oral Tablet tab, 0 Center Refill(s) Sulfamethoxazole 1 tab, PO, Active [place] 800 MG / [id number], # 14 2014 [facility] Trimethoprim 160 tab, 0 Center MG Oral Tablet Refill(s) Docusate Sodium 50 1 tab, PO, Active [place] MG / sennosides, BID, # 30 tab, 2014 [facility] RESIDENTIAL 8.6 MG Oral 0 Refill(s) Cent er [...] / sennosides, as Senokot-S) Active 2013 edical RESIDENTIAL 8.6 MG Oral Equiv. to [place] Tablet Lorie-Colace. Fluzone Notes: (Same No Longer [place] Quadrivalent as: Fluzone Active 2013 Medical [id number] Quadrivalent) [place] Lisinopril Notes: (Same No Longer [place] as as: Prinivil, Active 2013 [facility] Zestril) [place] Hydralazine Notes: (Same No Longer [place] Hydrochloride 25 as: Active 2013 [facility] MG Oral Tablet Apresoline) Cente r May interfere w/enteral feedings Take With Food. tramadol Notes: Not to No Longer [place] hydrochloride 50 exceed Active 2013 [facility] MG Oral Tablet 400mg/day. Center (Same As: [facility]) carvedilol Notes: Give No Longer [place] with food. Active 2013 Medical (Same As: Center Coreg) Amoxicillin 875 MG Notes: With No Longer [place] / Clavulanate 125 food. (Same Active 2013 [place] dical MG Oral Tablet as: Augmentin Ministerio ter [Augmentin 875-mg] 875) Bactrim DS Notes: One DS No Longer [place] tablet = Active 2013 [facility] trimethoprim [place] 160mg + sulfamethoxazo le 800 mg Dose based on trimethoprim component On empty stomach with a glass of water. 1 hr before meals (Same As: Bactrim DS, Septra DS) heparin, porcine Notes: porcine No Longer [place] heparin Active 2013 [facility] Hydrochlorothiazid Notes: (Same No Longer [place] e as: Active 2013 [facility] Hydrodiuril) [place] With food. Lisinopril Notes: (Same Inactive [place] as: Prinivil, 2014 Medical Zestril) Center Coreg Notes: Give Inactive [place] with food. 2013 Medical (Same As: Center Coreg) Coreg Notes: Give Inactive [facility] with food. 2013 Medical (Same As: Center Coreg) Lisinopril Notes: (Same Inactive [place] as: Prinivil, 2013 [facility] Zestril) [place] vancomycin + 2001 mg: Inactive [facility] Sodium Chloride infuse over 2013 [facility] scooby 0.9% IV 500 mL 2.5 hours [place] Vancomycin FOR IV SET ONLY 24 HR Notes: Apply Inactive [facility] Nitroglycerin 0.2 only once for 2013 Medical MG/HR Transdermal up to 12 hours Center Patch in a 24 hour period (12 hours on and 12 hours off.) (Same as:Kaylin James Transde Nitro) For topical use only. "Remove old patch before application of new patch" atorvastatin Notes: (Same Inactive [place] as: Lipitor) 2013 [facility] Metoprolol Notes: (Same No Longer [place] as as: Lopressor) Active 2013 Medical Push over 2 Center minutes aspirin Notes: Take No Longer [place] with food. Active 2013 [facility] Labetalol 20 mg, Route: Inactive [place] [...] minutes Labetalol 10 mg, 2 mL, Inactive [place] Route: IVP, 2013 Medical Drug form: Center INJ, Q5Min, Dosing Weight 97.727, kg, PRN Elevated BP, Start date: 05/10/14 17:35:00, Duration: 5 doses or times, Stop date: 05/11/14 0:00:00 Fentanyl Notes: (Same Inactive [place] as: Sublimaze) 2013 Medical Preservative [place] free. Hydromorphone Notes: Same Inactive [place] as: Dilaudid 2014 [facility] Promethazine Notes: Do not Inactive [place] give IV push. 2014 Medical (Same as: [place] Phenergan) Ondansetron Notes: (Same Inactive [place] as as: Zofran) 2014 [facility] Center Lisinopril Notes: (Same No Longer [place] as as: Prinivil, Active 2013 Medical Zestril) Center vancomycin + 2001 mg: No Longer [place] Sodium Chloride infuse over Active 2013 Medi scooby 0.9% IV 250 mL 2.5 hours Center Vancomycin FOR IV SET ONLY vancomycin + 2001 mg: Inactive [facility] Sodium Chloride infuse over 2013 Medi scooby 0.9% IV 500 mL 2.5 hours Center Vancomycin FOR IV SET ONLY aspirin Notes: Do not No Longer [facility] crush or chew. Active 2013 Medical (Same As: [place] Ecotrin) carvedilol Notes: Give No Longer [place] with food. Active 2013 [facility] (Same As: [place] Coreg) Influenza Virus Notes: (Same Inactive [facility] Vaccine, as: Fluzone 2013 Medical Inactivated Quadrivalent) [place] G-[id number] (H3N2)-like virus ([id number] 7 [facility] X-175C) strain / Influenza Virus Vaccine, Inactivated [id number] , IVR-148 (H1N1) strain / Influenza Virus Vaccine, Inactivated, H-Rxwosly-1-l ik Docusate Notes: (Same No Longer [facility] as: Colace) Active 2014 [facility] Ceftriaxone Notes: (Same No Longer [place] As: Rocephin). Active 2013 [facility] Use with Center 100ml NS mini-bag PLUS and infuse over 30 min Zofran Notes: (Same No Longer [facility] as: Zofran) Active 2014 [facility] Center Vancomycin 2001 mg: Inactive [facility] infuse over 2014 Medical 2.5 hours Center Potassium Chloride Notes: (Same Inactive [facility] as: KCL) 2014 Medical Infuse no Center faster than 10 mEq/hr if given peripherally. Insulin, Aspart, Notes: Roll in No Longer [place] Human palms of hands Active 2013 Medical gently; Do Center not shake vigorously. (Same as: NovoLOG) "single patient use only" Stable for 28 days at room temperature. Expires in days from Date Dextrose 50% 25 gm, 50 mL, No Longer [place] Syringe Route: IVP, Active 2013 [facility] Drug Form: Center INJ, Dosing Weight 97.727, kg, PRN, PRN Blood Glucose Results, Start date: 05/09/14 6:36:00, Duration: 30 day, Stop date: 06/08/14 5:35:00 Glucagon 1 mg, Route: No Longer [place] IM, Drug form: Active 2013 Medical PDR/INJ, PRN, Center Dosing Weight 97.727, kg, PRN Blood Glucose Results, Start date: 05/09/14 6:36:00, Duration: 30 day, Stop date: 06/08/14 5:35:00 Saline Flush 0.9% Notes: (Same No Longer [place] as: BD Active 2013 Medical Posiflush) Center Ondansetron Notes: (Same No Longer [place] as: Zofran) Active 2013 [facility] Center Acetaminophen Notes: Do not No Longer [facility] exceed 4 Active 2013 Medical gm/day. (Same Center as: Tylenol) Acetaminophen 325 Notes: (Same No Longer [facility] MG / Hydrocodone as: [place] Active 2013 Medic al Bitartrate 5 MG 325/5) Do not C enter Oral Tablet exceed 4gm/day of acetaminophen. Morphine Notes: (Same No Longer [facility] as:MORPhine Active 2013 Medical Sulfate) Center Acetaminophen 325 Notes: Do not No Longer [facility] MG / Hydrocodone exceed 4gm/day Active 2013 Medical Bitartrate 10 MG of Center Oral Tablet acetaminophen. (Same as: [place] 325/10) Metformin 500 mg = 1 Active [place] hydrochloride 500 tab, PO, BID, 2014 Medical MG Oral Tablet # 30 tab, 0 Cente r Refill(s) Dilaudid 1 mg, Route: Inactive [place] IVP, ONCE, 2013 Medical Dosing Weight Center 113.636, kg, Priority: STAT, Start date: 05/09/14 3:14:00, Stop date: 05/09/14 3:14:00 Ceftriaxone Notes: (Same Inactive Kam[place] as As: Rocephin). 2013 Medical Use with Center 100ml NS mini-bag PLUS and infuse over 30 min Doxycycline Notes: NO Inactive [place] MILK/ANTACIDS/ 2013 Medical IRON Take 1 Center [...] Oral Tablet tab, PO, BID, Active 2013 [facility] ast [Coreg] # 60 tab, 0 Refill(s) [...] Inactive H 0.154 MEQ/ML ml/hr, Infuse 2013 [place] Injectable Over: 1 hr, Solution Route: IV, ONCE, Priority: STAT, Dosing Weight 96.364 kg, Start date: 02/07/14 9:27:00, Duration: 1 doses or times, Stop date: 02/07/14 9:27:00 Sodium Chloride 500 mL, 500 Inactive 0.154 MEQ/ML ml/hr, Infuse 2013 [place] Injectable Over: 1 hr, Solution Route: IV, [...] 1 Active MG Oral Tablet tab, PO, [facility] t [Zithromax] Daily, # 7 tab, 0 Refill(s) benzonatate 100 MG 100 mg = 1 Active Oral Capsule cap, PO, TID, 2013 [place] [Tessalon Perles] # 21 cap, 0 Refill(s) carvedilol 12.5 mg 12.5 mg = 1 Active [place] 07/21/ H oral tablet tab, PO, Q12H, 2012 [place] # 60 tab, 0 Refill(s) Tessalon 200 mg 200 mg = 1 Active [place] oral capsule cap, PO, TID, 2012 [place] # 30 cap, 0 Refill(s) albuterol 90 1 puff, Active [place] mcg/inh inhalation INHALATION, 2012 [place] aerosol QID, wheezing, # 1 ea, 0 Refill(s) aspirin 81 mg 81 mg = 1 tab, Active [place] tablet, enteric PO, Daily, # 2012 [place] coated 30 tab, 0 Refill(s) cloNIDine 0.1 mg 0.1 mg = 1 Active [place] oral tablet tab, PO, TID, 2012 ast Elevated BP | sbp >/= 160, # 60 tab, 0 Refill(s) simvastatin 20 mg 40 mg = 2 tab, Active [place] oral tablet PO, Bedtime, # 2012 [place] 30 tab, 0 Refill(s) lisinopril 20 mg 20 mg = 1 tab, Active [place] oral tablet PO, Q12H, HOLD 2012 [place] IF SBP HOLD IF SBP </= 110 furosemide 40 mg 40 mg = 1 tab, Active [place] oral tablet PO, Daily, # [address] [facility] [address] 30 tab, 0 Refill(s) Levaquin 750 mg 750 mg = 1 Active Ajel[place] oral tablet tab, PO, Q24H, 2012 [place] # 7 tab, 0 Refill(s) Lasix 40 mg, 1 tab, Inactive Lydia Route: PO, 2012 [facility] Drug form: TAB, Daily, Dosing Weight 93.3, kg, Start date: 07/21/13 9:00:00, Duration: 30 day, Stop date: 08/19/13 9:00:00(Same as: Lasix) May cause GI upset. Give with food or milk. hydrALAZINE 10 mg, 0.5 mL, No Longer [place] Route: IVP, Active 2012 [facility] Drug form: INJ, Q6H, Dosing Weight 97.727, kg, PRN Hypertension, Start date: 07/20/13 14:02:00, Duration: 30 day, Stop date: 08/19/13 14:01:00, SBP>/=150 OR DBP>/=90(Same as: Apresoline) Push over 5 minutes aspirin 325 mg 325 mg, 1 tab, No Longer [place] tablet, enteric Route: PO, Active 2012 [place] coated Drug form: ECTAB, Daily, Dosing Weight 93.3, kg, Start date: 07/20/13 9:00:00, Duration: 30 day, Stop date: 08/18/13 9:00:00(Do Not Crush) Do not crush or chew. Zocor 40 mg, 2 tab, No Longer [place] Route: PO, Active 2012 [facility] Drug form: TAB, Bedtime, Dosing Weight 93.3, kg, Start date: 07/19/13 21:00:00, Duration: 30 day, Stop date: 08/17/13 21:00:00(Same as: Zocor) lisinopril 20 mg, 1 tab, No Longer [place] Route: PO, Active 2012 [facility] [...] Lasix 40 mg, 4 mL, No Longer [place] Route: IVP, Active 2012 [facility] [...] No Longer Pierre PO, Drug Form: 2012 [facility] TAB, Dosing [...] Longer Pierre minerals PO, Drug Form: Active 2012eas t TAB, Daily, Start date: 07/19/13 9:00:00, Duration: 30 day, Stop date: 08/17/13 9:00:00Give with food. (Same As: Stress 600 with Zinc) vancomycin 1.25 gm, 250 No Longer Ajelabi mL, Route: Active 2012 [facility] IVPB, Drug form: INJ, [id number], Start date: 07/19/13 6:00:00, Stop date: 08/18/13 2:00:00Same as: Vancocin-NS (premixed) [place] 10/325 oral 1 tab, Route: No Longer Cactus tablet PO, Drug Form: Active 2012 [facility] TAB, Dosing Weight 97.727, kg, Q6H, Start date: 07/19/13 0:00:00, Duration: 30 day, Stop date: 08/17/13 18:00:00Do not exceed 4gm/day of acetaminophen. (Same as: [place] 325/10) albuterol-ipratrop 3 mL, Route: No Longer [place] ium 2.5-0.5 mg NEB, Drug Active [address] [facility] [address] inhalation Form: SOLN, solution Dosing Weight 97.727, kg, RQ4H, Start date: 07/18/13 23:00:00, Duration: 30 day, Stop date: 08/17/13 19:00:00(Same as: Duoneb) Tessalon Perles 200 mg, 2 cap, No Longer [place] Route: PO, 2012 [facility] Drug form: CAP, Q8H-06, Dosing Weight 97.727, kg, Start date: 07/18/13 22:00:00, Duration: 30 day, Stop date: 08/17/13 14:00:00(Same As: Tessalon Perles) "Do Not Crush" lisinopril 10 mg, 1 tab, No Longer [place] Route: PO, Active 2012 [facility] [...] As: Coreg) Vancomycin 1 gm, Route: Inactive [facility] Dosing IV, Dosing 2012 [place] Weight 97.727, kg, Q12H, Start date: 07/18/13 [...] As: Catapres) vancomycin 1.5 gm, 250 Inactive [facility] mL, Route: 2012 IVPB, Drug form: INJ, ONCE, Start date: 07/18/13 20:00:00, Stop date: 07/18/13 20:00:00Same as: Vancocin-NS (premixed) dextromethorphan-g 10 mL, Route: No Longer [place] 07/19 uaifenesin 10 PO, Drug Form: Active [...] Ultra 160 mg, 2 tab, No Longer [place] Softgels Route: PO, Active 2012 [facility] Drug form: CHEWTAB, Q4H, Dosing Weight 97.727, kg, PRN Gas, Start date: 07/18/13 19:28:00, Duration: 30 day, Stop date: 08/17/13:27:00(Same as: Mylicon) GI cocktail 30 ml, Route: No Longer [place] PO, Drug Form: 2012 [facility] [...] as:MORPhine Sulfate) Tylenol 650 mg, Route: Inactive [place] PO, Drug form: 2012 [facility] TAB, Q6H, Dosing Weight 97.727, kg, PRN Pain, Start date: 07/18/13:28:00, Duration: 30 day, Stop date: 08/17/1327:00 hydrALAZINE 10 mg, 0.5 mL, No Longer [place] Route: IVP, Active 2012 [facility] Drug form: INJ, Q6H, Dosing Weight 97.727, kg, PRN Elevated BP, Start date: 07/18/13:28:00, Duration: 30 day, Stop date: 08/17/13:00, SBP>/=160 OR DBP>/=90(Same as: Apresoline) Push over 5 minutes lactulose 20 gm, 30 ml, No Longer [place] Route: PO, Active 2012 [facility] Drug Form: SYRP, Dosing Weight 97.727, kg, TID, PRN Constipation, Start date: 07/18/13:28:00, Duration: 30 day, Stop date: 08/17/1327:00(Same as:Chronulac) Zofran 4 mg, 2 mL, No Longer [place] Route: IV, Active 2012 [facility] Drug form: INJ, Q4H, Dosing Weight 97.727, kg, PRN Nausea, Start date: 07/18/13:28:00, Duration: 30 day, Stop date: 08/17/1327:00(Same as: Zofran) acetaminophen 650 mg, 2 tab, No Longer [place] H Route: PO, Active 2012 [facility] Drug form: TAB, Q4H, Dosing Weight 97.727, kg, PRN Pain Score 1-3, For fever > 100.4. Not to exceed 4 grams in 24 hours, Start date: 07/18/13:28:00, Duration: 30 day, Stop date: 08/17/1327:00Do not exceed 4 gm/day. (Same as: Tylenol) tuberculin 5 unit, 0.1 Inactive Ign[facility] purified protein mL, Route: 2012 [place] [facility] derivative 5 INTRADERM, tuberculin ONCE, Dosing units/0.1 mL Weight 97.727, intradermal kg, Start solution date: 07/18/13 19:22:00, Stop date: 07/18/13 19:22:00 levofloxacin 750 mg, 150 No Longer [facility] 07/19[facility] mL, Route: IV, Active 2012 [facility] Drug form: SOLN, [id number], Dosing Weight 97.727, kg, Start date: 07/18/13 18:00:00, Duration: 30 day, Stop date: 08/16/13 18:00:00(Same as:Levaquin) Lasix 40 mg, 4 mL, Inactive [facility] 07/18[facility] Route: IV, 2012 [facility] Drug form: INJ, ONCE, Dosing Weight 97.727, kg, Start date: 07/18/13 17:20:00, Stop date: 07/18/13 17:20:00(Same as: Lasix) tuberculin 5 unit, 0.1 Inactive [facility] 07/18[facility] purified protein mL, Route: 2012 [facility] derivative INTRADERM, Drug form: INJ, ONCE, Dosing Weight 97.727, kg, Start date: 07/18/13 17:17:00, Stop date: 07/18/13 17:17:00LOT#: [id number]: (Same As: Aplisol, Tubersol) Lasix 40 mg, Route: Inactive [facility] 07/18[facility] IVP, Drug 2012 [facility] form: INJ, ONCE, Dosing Weight 97.727, kg, Priority: STAT, Start date: 07/18/13 17:12:00, Stop date: 07/18/13 17:12:00 hydrALAZINE 20 mg, 1 mL, Inactive [facility] 07/18[facility] Route: IVP, 2012 [facility] Drug form: INJ, ONCE, Dosing Weight 97.727, kg, Priority: STAT, Start date: 07/18/13 14:40:00, Stop date: 07/18/13 14:40:00(Same as: Apresoline) Push over 5 minutes Tylenol 650 mg, Route: Inactive [facility] 07/18/ PO, Drug form: 2012 [facility] TAB, ONCE, Dosing Weight 97.727, kg, Priority: STAT, Start date: 07/18/13 14:12:00, Stop date: 07/18/13 14:12:00 ketorolac 30 mg, Route: Inactive Fa 07/18[facility] IVP, Drug 2012 [facility] form: INJ, ONCE, Dosing Weight 97.727, kg, Priority: STAT, Start date: 07/18/13 14:12:00, Stop date: 07/18/13 14:12:00 albuterol-ipratrop 3 mL, Route: Inactive [facility] 07/18[facility] ium 2.5-0.5 mg NEB, Drug [address] [facility] [address] inhalation Form: SOLN, solution Dosing Weight 97.727, kg, ONCE, STAT, Start date: 07/18/13 13:00:00, Stop date: 07/18/13 13:00:00 Saline Flush 0.9% 5 mL, Route: No Longer Fa 07/18[facility] IVP, Drug Active 2012 [facility] Farfan her vaccine, 4 deltoid Neuro, inactivated [facility], [facility] diphtheria/pertu Left completed Eric Vaca [facility] ssis, 4 Deltoid Neuro, acel/tetanus [facility], [facility] influenza virus Left completed Jacek Farfan her vaccine, 3 Deltoid Neuro,MH inactivated [facility], [facility] influenza virus completed Jacek N [facility] vaccine, 3 inactivated tuberculin completed Jack Cortes purified protein 3 Comment: Félix ro, derivative<sup>1 given in Kamar as Medical </sup> left forearm Center, [facility], [facility] tuberculin completed Jack 1Result [facility] ast purified protein 3 Comment: derivative<sup>1 given in </sup> left forearm Results Order Name Results Value Reference Date Interpretation Comments [place] rce Range CHEM PANEL Phosphorus 3.7 2.5 - 4.5 04/19 [facility] CHEM PANEL Magnesium 2.1 1.8 - 2.4 04/19 MH Lvl /2016 [facility] ELECTROLYT AGAP 11.5 10.0 - 04/19 MH ES 20.0 /2016 [facility] ELECTROLYT Sodium Lvl 140 135 - 145 04/19 MH ES [facility] ELECTROLYT Glucose Lvl 92 70 - 99 04/19 MH ES [facility] ELECTROLYT BUN 12 7 - 22 04/19 ES [facility] ELECTROLYT Creatinine 0.78 0.50 - 04/19 ES Lvl 1.40 [facility] ELECTROLYT eGFR 106 [...] 3.5 3.5 - 5.1 04/19 ES Lvl [facility] HEMATOLOGY INR 1.06 [...] PANEL Total 7.7 6.4 - 8.4 04/18 [facility] CHEM PANEL Bili Total 0.4 0.2 - 1.3 04/18 [facility] CHEM PANEL Alk Phos 69 39 - 136 04/18 [facility] CHEM PANEL AST 29 0 - 37 04/18 [facility] CHEM PANEL AGAP 10.0 10.0 - 04/18 MH 20.0 2017 [facility] CHEM PANEL BUN 7 7 - 22 04/18 [facility] CHEM PANEL Glucose Lvl 92 70 - 99 04/18 [facility] CHEM PANEL Sodium Lvl 140 135 - 145 04/18 [facility] CHEM PANEL Potassium 4.0 3.5 - 5.1 04/18 MH Lvl /2016 [facility] CHEM PANEL Creatinine 0.67 0.50 - 04/18 MH Lvl 1.40 /2017 [facility] HEMATOLOGY PTT 31.8 22.9 - 04/18 [...] # 0.7 0.0 - 0.8 04/18 /2016 [facility] HEMATOLOGY Lymphocytes 1.3 1.0 - 5.5 04/18 MH # /2016 [facility] HEMATOLOGY Eosinophils 0.2 0.0 - 0.5 04/18 [...] Segs 65.4 45.0 - 04/18 MH 75.0 /2017 [facility] HEMATOLOGY Lymphocytes 19.8 20.0 - 04/18 MH 40.0 /2016 [facility] TOXICOLOGY Etoh (%) <0.003 % 04/18 /2016 [facility] TOXICOLOGY Ethanol Lvl <3.0 mg/dL 04/18 [facility] URINE AND UA Nitrite Negative Negative 04/18 STOOL (04/18/17 4:20 PM) /2016 [facility] ast URINE AND UA Glucose Negative Negative [...] Protein Negative Negative 04/18 STOOL mg/dL mg/dL [facility] URINE AND UA pH 6.0 5.0 - 8.0 04/18 STOOL [facility] URINE AND UA Spec Grav 1.009 <=1.030 04/18 [facility] URINE AND UA Turbidity Clear Clear [...] 2.0 0.5 - 3.6 08/27 [facility] CARDIAC Troponin-I <0.02 0.00 - 08/27 [facility] ENZYMES 0.40 [facility] CARDIAC Total CK 320 12 - 191 08/27 [facility] CARDIAC CK MB Index 0.6 0.0 - 2.5 08/27 [facility] CHEM PANEL A/G Ratio 1.2 0.7 - 1.6 08/27 [facility] CHEM PANEL Globulin 3.4 2.7 - 4.2 08/27 [facility] CHEM PANEL B/C Ratio 14 6 - 25 08/27 [facility] CHEM PANEL eGFR 104 08/27 [facility] Comment: The [facility] eGFR is calculated using the [...] 105 95 - 109 08/27 [facility] CHEM PANEL Calcium Lvl 8.3 8.5 - 10.5 08/27 ate [facility] CHEM PANEL CO2 30 24 - 32 08/27 [facility] CHEM PANEL Albumin Lvl 4.0 3.5 - 5.0 08/27 [facility] CHEM PANEL Total 7.4 6.4 - 8.4 08/27 [facility] CHEM PANEL Bili Total 0.4 0.2 - 1.3 08/27 [facility] CHEM PANEL Alk Phos 71 39 - 136 08/27 [facility] CHEM PANEL AGAP 9.7 10.0 - 08/27 20.0 [facility] CHEM PANEL AST 22 0 - 37 08/27 [facility] CHEM PANEL ALT 18 0 - 65 08/27 [facility] CHEM PANEL Glucose Lvl 97 70 - 99 08/27 r [facility] CHEM PANEL BUN 12 7 - 22 08/27 [facility] CHEM PANEL Creatinine 0.84 0.50 - 08/27 Lvl 1.40 [facility] CHEM PANEL Sodium Lvl 141 135 - 145 08/27 [facility] CHEM PANEL Potassium 3.7 3.5 - 5.1 08/27 [facility] r Lvl [facility] DRUG UDS Note See Note 08/27 [facility] SCREEN *NA* /2016 [place] (08/27/16 1:52 PM) DRUG U Cocaine Negative Negative 08/27 [facility] SCREEN Scr *NA* /2016 [place] (08/27/16 1:52 PM) DRUG U Amph Scr Negative Negative 08/27 [facility] SCREEN *NA* /2016 [facility] (08/27/16 1:52 PM) DRUG U Phencyc Negative Negative 08/27 [facility] SCREEN Scr *NA* /2016 [facility] (08/27/16 1:52 PM) DRUG U Opiate Scr Negative Negative 08/27 [facility] SCREEN *NA* /2016 [facility] (08/27/16 1:52 PM) DRUG U Cannab Scr Negative Negative 08/27 MH [facility] SCREEN *NA* /2016 [facility] (08/27/16 1:52 PM) DRUG U Benzodia Negative Negative 08/27 [facility] SCREEN Scr *NA* /2016 [facility] (08/27/16 1:52 PM) DRUG U Armida Scr Negative Negative 08/27 [facility] SCREEN *NA* /2016 [facility] (08/27/16 1:52 PM) HEMATOLOGY WBC 6.3 3.7 - 10.4 08/27 [facility] HEMATOLOGY RBC 4.80 4.70 - 08/27 [facility] 6.10 [place] HEMATOLOGY Hct 40.2 42.0 - 08/27 [facility] 54.0 [facility] HEMATOLOGY Hgb 13.4 14.0 - 08/27 [facility] 18.0 [facility] HEMATOLOGY MCV 83.9 80.0 - 08/27 [facility] 94.0 [facility] HEMATOLOGY MCHC 33.4 32.0 - 08/27 [facility] 36.0 [facility] HEMATOLOGY MPV 8.8 7.4 - 10.4 08/27 [facility] HEMATOLOGY Platelet 195 133 - 450 08/27 [facility] HEMATOLOGY RDW 14.8 11.5 - 08/27 [facility] 14.5 [place] HEMATOLOGY MCH 28.0 27.0 - 08/27 [facility] 31.0 [place] HEMATOLOGY Segs-Bands # 4.0 1.5 - 8.1 08/27 Gre ater /2016 [facility] HEMATOLOGY Lymphocytes 1.5 1.0 - 5.5 08/[address] # /2016 [facility] HEMATOLOGY Eosinophils 0.2 0.0 - 0.5 08/[address] # /2016 [facility] HEMATOLOGY Monocytes # 0.6 0.0 - 0.8 08/[address] /2016 [place] HEMATOLOGY Monocytes 9.1 2.0 - 12.0 08/27 Great er /2016 [place] HEMATOLOGY Basophils 0.5 0.0 - 1.0 08/27 [facility] r /2016 [facility] HEMATOLOGY Eosinophils 2.5 0.0 - 4.0 08/[address] [place] HEMATOLOGY Lymphocytes 24.5 20.0 - 08/27 Greate r 40.0 /2016 [facility] HEMATOLOGY Segs 63.4 45.0 - 08/27 [facility] 75.0 /2016 [place] URINE AND UA Leuk Est Negative Negative 08/27 [facility] er STOOL (08/27/16 1:52 PM) /2016 [facility] URINE AND UA 2.0 0.1 - 1.0 08/27 [facility] STOOL Urobilinogen /2016 [facility] URINE AND UA Nitrite Negative Negative 08/27 [facility] STO[facility] (08/27/16 1:52 PM) [facility] URINE AND UA Bili Negative Negative 08/27 [facility] STOOL *NA* /2016 [facility] (08/27/16 1:52 PM) URINE AND UA Blood Negative Negative 08/27 [facility] STOOL (08/27/16 1:52 PM) [facility] URINE AND UA Ketones Negative Negative 08/27 [facility] STOOL mg/dL mg/dL [facility] URINE AND UA Glucose Negative Negative 08/27 [facility] STOOL mg/dL mg/dL /2016 [facility] URINE AND UA Spec Grav 1.020 <=1.030 08/27 [facility] STOOL /2016 [facility] URINE AND UA Color Yellow Yellow 08/27 [facility] STOOL *NA* /2016 [facility] (08/27/16 1:52 PM) URINE AND UA Turbidity Clear Clear 08/27 [facility] STOOL (08/27/16 1:52 PM) /2016 [facility] URINE AND UA pH 6.5 5.0 - 8.0 08/27 [facility] STOOL [facility] URINE AND UA Protein Negative Negative 08/27 [facility] STOOL mg/dL mg/dL [facility] URINE AND UA Sq Epi None Seen Few 08/27 [facility] STOOL (08/27/16 1:52 PM) /2016 [facility] TOXICOLOGY Etoh (%) <0.003 07/28 [facility] TOXICOLOGY Ethanol Lvl <3 07/28 e r /2015 [facility] DRUG U Opiate Scr Negative Negative 07/28 [facility] SCREEN *NA* [facility] (07/28/16 4:20 PM) DRUG U Benzodia Negative Negative 07/28 [facility] SCREEN Scr *NA* [facility] (07/28/16 4:20 PM) DRUG U Cocaine Negative Negative 07/28 [facility] SCREEN Scr [facility] (07/28/16 4:20 PM) DRUG U Cannab Scr Negative Negative 07/28 [facility] SCREEN *NA* (07/28/16 4:20 PM) DRUG U Phencyc Negative Negative 07/28 [facility] SCREEN Scr [facility] (07/28/16 4:20 PM) DRUG U Armida Scr Negative Negative 07/28 [facility] SCREEN *NA* [facility] (07/28/16 4:20 PM) DRUG U Amph Scr Negative Negative 07/28 [facility] SCREEN *NA* [facility] (07/28/16 4:20 PM) DRUG UDS Note See Note 07/28 [facility] SCREEN *NA* [facility] (07/28/16 4:20 PM) URINE AND UA Bacteria Occasional None Seen 07/28 Gr eater STOOL /HPF /HPF /2015 [facility] URINE AND UA Amorph Occasional None Seen 07/[address] STOOL Paulina /HPF /HPF /2015 [facility] URINE AND UA Mucus None Seen None Seen 07/28 e r STOOL (07/28/16 4:20 PM) /2015 [facility] URINE AND UA WBC None Seen None Seen 07/28 [facility] STOOL (07/28/16 4:20 PM) /2015 [facility] URINE AND UA Sq Epi Few /LPF Few /LPF 07/28 [facility] STOOL /2015 [facility] URINE AND UA RBC 0-2 /HPF 0 - 2 07/28 [facility] STOOL /2015 [facility] URINE AND UA Leuk Est Negative Negative 07/28 Great er STOOL (07/28/16 4:20 PM) /2015 [facility] URINE AND UA Bili Negative Negative 07/28 [facility] STOOL *NA* /2015 [facility] (07/28/16 4:20 PM) URINE AND UA Nitrite Negative Negative 07/28 [facility] STOOL (07/28/16 4:20 PM) /2015 [facility] URINE AND UA 1.0 0.1 - 1.0 07/28 [facility] STOOL Urobilinogen /2015 [facility] URINE AND UA Blood Trace Negative 07/28 [facility] STOOL *ABN* /2015 [facility] (07/28/16 4:20 PM) URINE AND UA pH 8.0 5.0 - 8.0 07/28 [facility] STOOL [facility] URINE AND UA Ketones Trace Negative 07/28 [facility] STOOL *ABN* /2015 [facility] (07/28/16 4:20 PM) URINE AND UA Glucose Negative Negative 07/28 [facility] STOOL (07/28/16 4:20 PM) igh ts URINE AND UA Protein Negative Negative 07/28 [facility] STOOL (07/28/16 4:20 PM) [facility] URINE AND UA Color Yellow Yellow 07/28 [facility] STOOL *NA* /2015 [facility] (07/28/16 4:20 PM) URINE AND UA Spec Grav 1.020 <=1.030 07/28 [facility] r STOOL [facility] URINE AND UA Turbidity Clear Clear 07/28 [facility] STOOL (07/28/16 4:20 PM) [facility] CARDIAC CK MB Index 0.4 0.0 - 2.5 07/27 [facility] ENZYMES [facility] CARDIAC CK MB 1.0 0.5 - 3.6 07/27 [facility] ENZYMES [facility] CARDIAC Troponin-I <0.02 0.00 - 07/27 [facility] ENZYMES 0.40 [facility] CARDIAC Total CK 244 12 - 191 07/27 [facility] ENZYMES [facility] CHEM PANEL eGFR 125 07/27 [facility] Comment: The [facility] eGFR is calculated using the [...] 3.9 3.5 - 5.0 07/27 [facility] CHEM PANEL Total 8.0 6.4 - 8.4 07/27 Protein [facility] CHEM PANEL BUN 11 7 - 22 07/27 [facility] CHEM PANEL Sodium Lvl 143 135 - 145 07/27 er [facility] CHEM PANEL Creatinine 0.76 0.50 - 07/27 [facility] Lvl 1.40 [facility] CHEM PANEL Glucose Lvl 93 70 - 99 07/27 r [facility] CHEM PANEL Bili Total 0.3 0.2 - 1.3 07/27 [facility] CHEM PANEL AST 29 0 - 37 07/27 [facility] CHEM PANEL Alk Phos 91 39 - 136 07/27 [facility] CHEM PANEL AGAP 16.4 10.0 - 07/27 [facility] 20.0 [facility] CHEM PANEL B/C Ratio 14 6 - 25 07/27 [facility] CHEM PANEL A/G Ratio 1.0 0.7 - 1.6 07/27 r [facility] CHEM PANEL Globulin 4.1 2.7 - 4.2 07/27 [facility] CHEM PANEL Calcium Lvl 8.3 8.5 - 10.5 07/27 ater [facility] CHEM PANEL CO2 27 24 - 32 07/27 [facility] CHEM PANEL ALT 24 0 - 65 07/27 [facility] CHEM PANEL Potassium 3.4 3.5 - 5.1 07/27 e r Lvl [facility] CHEM PANEL Chloride Lvl 103 95 - 109 07/27 [facility] HEMATOLOGY Segs 70.6 45.0 - 07/27 75.0 [facility] HEMATOLOGY Monocytes 7.7 2.0 - 12.0 07/27 [facility] HEMATOLOGY Lymphocytes 19.1 20.0 - 07/27 e r 40.0 [facility] HEMATOLOGY Basophils 1.1 0.0 - 1.0 07/27 r [facility] HEMATOLOGY Eosinophils 1.5 0.0 - 4.0 07/27 ter [facility] HEMATOLOGY Basophils # 0.1 0.0 - 0.2 07/[address] /2015 [facility] HEMATOLOGY Eosinophils 0.1 0.0 - 0.5 07/[address] # /2015 [facility] HEMATOLOGY Segs-Bands # 4.2 1.5 - 8.1 07/27 Gre ater /2015 [facility] HEMATOLOGY Monocytes # 0.5 0.0 - 0.8 07/[address] /2015 [facility] HEMATOLOGY Lymphocytes 1.1 1.0 - 5.5 07/[address] # /2015 [facility] HEMATOLOGY PT 13.6 12.0 - 07/27 [facility] 14.7 [facility] HEMATOLOGY INR 1.02 0.85 - 07/27 [facility] 1.17 [facility] HEMATOLOGY PTT 28.3 22.9 - 07/27 MH [facility] 35.8 [facility] HEMATOLOGY MPV 8.0 7.4 - 10.4 07/27 [facility] HEMATOLOGY Platelet 265 133 - 450 07/27 [facility] HEMATOLOGY RDW 14.5 11.5 - 07/27 MH [facility] 14.5 [facility] HEMATOLOGY WBC 6.0 3.7 - 10.4 07/27 [facility] HEMATOLOGY MCV 84.1 80.0 - 07/27 MH [facility] 94.0 [facility] HEMATOLOGY Hct 42.3 42.0 - 07/27 MH [facility] 54.0 [facility] HEMATOLOGY Hgb 14.3 14.0 - 07/27 MH [facility] 18.0 [facility] HEMATOLOGY RBC 5.03 4.70 - 07/27 Greater 6.10 [facility] HEMATOLOGY MCH 28.5 27.0 - 07/27 Greater 31.0 [facility] HEMATOLOGY MCHC 33.9 32.0 - 07/27 MH [facility] 36.0 [facility] LIPIDS CHD Risk 5.52 4.00 - 07/27 [facility] 7.30 [facility] LIPIDS HDL 23 >=61 mg/dL 07/27 [facility] LIPIDS Chol 127 <=199 07/27 [facility] mg/dL LIPIDS Trig 310 <=149 07/27 [facility] mg/dL [facility] [facility] LIPIDS LDL 42 <=99 mg/dL 07/27 Greater (Calculated) [facility] LIPIDS VLDL 62 07/27 [facility] SPECIAL Hgb A1C 5.9 <=5.6 % 07/27 [facility] CHEMISTRY [facility] CHEM PANEL eGFR 77 03/07 Result Comment: The [facility] eGFR is calculated using the [...] 30 24 - 32 03/07 [facility] CHEM PANEL Chloride Lvl 103 95 - 109 03/07 ter [facility] CHEM PANEL Potassium 2.7 3.5 - 5.1 03/07 Result r Lvl Comment: [facility] Critical Result(s) called to Ignacio CARRIZALES at 03/07/2016 17:10 by garbs. Read back OK. CHEM PANEL Sodium Lvl 142 135 - 145 03/07 [facility] CHEM PANEL Calcium Lvl 8.1 8.5 - 10.5 03/07 ate [facility] CHEM PANEL AGAP 11.7 10.0 - 08 20.0 [facility] CHEM PANEL BUN 7 7 - 22 03/07 [facility] CHEM PANEL Creatinine 1.27 0.50 - 03/07 [facility] Lvl 1.40 [facility] CHEM PANEL Glucose Lvl 125 70 - 99 03/07 [facility] ELECTROLYT Potassium 2.7 3.5 - 5.1 03/07 Result [facility] r ES Lvl Comment: [facility] Critical Result(s) called to JOEY HERNÁNDEZ at 03/07/2016 16:38 by garbs. Read back OK. DRUG U Armida Scr Negative Negative 03/07 [facility] SCREEN *NA* /2015 [facility] (03/07/16 1:30 PM) DRUG U Benzodia Negative Negative 03/07 [facility] SCREEN Scr *NA* [place] (03/07/16 1:30 PM) DRUG U Cocaine Negative Negative 03/07 [facility] SCREEN Scr *NA* [facility] (03/07/16 1:30 PM) DRUG U Cannab Scr Negative Negative 03/07 [facility] r SCREEN *NA [facility] (03/07/16 1:30 PM) DRUG U Opiate Scr Negative Negative 03/07 [facility] r SCREEN *NA* [facility] (03/07/16 1:30 PM) DRUG U Phencyc Negative Negative 03/07 [facility] SCREEN Scr *NA [facility] (03/07/16 1:30 PM) DRUG UDS Note See Note 03/07 [facility] SCREEN *NA* [facility] (03/07/16 1:30 PM) DRUG U Amph Scr Negative Negative 03/07 [facility] SCREEN *NA* [facility] (03/07/16 1:30 PM) URINE AND UA RBC 0-2 /HPF 0 - 2 03/07 [facility] STOOL /2015 [facility] URINE AND UA Bacteria None Seen None Seen 03/07 Gre ater STOOL (03/07/16 1:30 PM) /2015 [facility] URINE AND UA Mucus Moderate None Seen 03/07 [facility] STOOL /LPF /LPF /2015 [facility] URINE AND Micro? Performed 03/07 [facility] STOOL (03/07/16 1:30 PM) [facility] URINE AND UA Sq Epi Rare /LPF Few /LPF 03/07 Greate r STOOL /2015 [facility] URINE AND UA WBC 3-5 /HPF None Seen 03/07 [facility] STOOL /HPF /2015 [facility] URINE AND UA Leuk Est Negative Negative 03/07 Great er STOOL (03/07/16 1:30 PM) [facility] URINE AND UA Nitrite Positive Negative 03/07 Greate r STOOL *ABN* /2015 [facility] (03/07/16 1:30 PM) URINE AND UA 2.0 0.1 - 1.0 03/07 [facility] STOOL Urobilinogen /2015 [facility] URINE AND UA Blood Negative Negative 03/07 [facility] ST[facility] (03/07/16 1:30 PM) [facility] URINE AND UA Bili Moderate Negative 03/07 [facility] STOOL *ABN* [facility] (03/07/16 1:30 PM) URINE AND UA Ketones 15 mg/dL Negative 03/07 Greate r STOOL mg/dL /2015 [facility] URINE AND UA Glucose Negative Negative 03/07 e r STOOL (03/07/16 1:30 PM) /2015 [facility] URINE AND UA Protein 30 mg/dL Negative 03/07 e r STOOL mg/dL /2015 [facility] URINE AND UA Turbidity Clear Clear 03/07 e r STOOL (03/07/16 1:30 PM) [facility] URINE AND UA Color DK YELLOW 03/07 STOOL [facility] URINE AND UA pH 5.5 5.0 - 8.0 03/07 [facility] STOOL /2015 [facility] URINE AND UA Spec Grav >=1.030 <=1.030 03/07 e r STOOL *ABN* /2015 [facility] (03/07/16 1:30 PM) CARDIAC CK MB Index 0.3 0.0 - 2.5 03/07 [facility] ENZYMES [facility] CARDIAC CK MB 1.5 0.5 - 3.6 03/07 [facility] ENZYMES [facility] CARDIAC Total CK 501 12 - 191 03/07 ENZYMES [facility] CARDIAC BNP 8 <=100 03/07 [facility] ENZYMES pg/mL /2015 [facility] CARDIAC Troponin-I 0.06 0.00 - 03/07 [facility] ENZYMES 0.40 [facility] CARDIAC BNP 7 <=100 03/07 [facility] ENZYMES pg/mL /2015 [facility] CHEM PANEL Bili Total 0.9 0.2 - 1.3 03/07 [facility] CHEM PANEL AST 89 0 - 37 03/07 [facility] CHEM PANEL Alk Phos 121 39 - 136 03/07 [facility] CHEM PANEL A/G Ratio 0.9 0.7 - 1.6 03/07 r [facility] CHEM PANEL Globulin 3.9 2.7 - 4.2 03/07 [facility] CHEM PANEL ALT 52 0 - 65 03/07 [facility] CHEM PANEL Albumin Lvl 3.7 3.5 - 5.0 03/07 Grea [facility] CHEM PANEL Total 7.6 6.4 - 8.4 03/07 Protein [facility] CHEM PANEL AGAP 13.5 10.0 - 08 Greater 20.0 /2015 [facility] CHEM PANEL Calcium Lvl 9.1 8.5 - 10.5 03/07 [facility] CHEM PANEL B/C Ratio 5 6 - 25 08/ [facility] CHEM PANEL eGFR 64 08/ Result Comment: The [facility] eGFR is calculated using the [...] CHEM PANEL Creatinine 1.47 0.50 - 08 [facility] Lvl 1.40 [facility] CHEM PANEL Sodium Lvl 140 135 - 145 03/07 [facility] CHEM PANEL CO2 30 24 - 32 03/07 [facility] CHEM PANEL Potassium 2.5 3.5 - 5.1 03/07 Result r Lvl Comment: [facility] Critical Result(s) called to Chelsea DERAS at 03/07/2016 13:58_ by_[email or web address]. Read back OK. CHEM PANEL Chloride Lvl 99 95 - 109 03/07 [facility] CHEM PANEL BUN 7 7 - 22 / [facility] CHEM PANEL Glucose Lvl 105 70 - 99 / r [facility] HEMATOLOGY Segs-Bands # 5.7 1.5 - 8.1 08/ [facility] HEMATOLOGY Lymphocytes 1.3 1.0 - 5.5 08/ [facility] ter # [facility] HEMATOLOGY Basophils # 0.1 0.0 - 0.2 08/ [facility] HEMATOLOGY Eosinophils 0.1 0.0 - 0.5 / [facility] ter # /2015 [facility] HEMATOLOGY Basophils 0.7 0.0 - 1.0 08/06 e r /2015 [facility] HEMATOLOGY Segs 70.8 45.0 - 08/06 Greater 75.0 /2015 [facility] HEMATOLOGY Monocytes # 0.9 0.0 - 0.8 08/[address] /2015 [facility] HEMATOLOGY Eosinophils 1.5 0.0 - 4.0 08/06 ter /2015 [facility] HEMATOLOGY Monocytes 10.7 2.0 - 12.0 08/ [facility] er /2015 [facility] HEMATOLOGY Lymphocytes 16.3 20.0 - 08/[facility] HEMATOLOGY Hgb 14.2 14.0 - 08/ Greater 18.0 /2015 [facility] HEMATOLOGY Hct 43.6 42.0 - 08/ Greater 54.0 /2015 [facility] HEMATOLOGY MCHC 32.6 32.0 - 08/ Greater 36.0 /2015 [facility] HEMATOLOGY RDW 15.1 11.5 - 08/ Greater 14.5 /2015 [facility] HEMATOLOGY MCV 87.6 80.0 - 08/ Greater 94.0 /2015 [facility] HEMATOLOGY MCH 28.6 27.0 - 08/ Greater 31.0 /2015 [facility] HEMATOLOGY WBC 8.0 3.7 - 10.4 08/ [facility] HEMATOLOGY RBC 4.97 4.70 - 08/06 Greater 6.10 /2015 [facility] HEMATOLOGY Platelet 245 133 - 450 08/ [facility] HEMATOLOGY MPV 8.5 7.4 - 10.4 08/ [facility] CARDIAC CK MB Index 0.7 0.0 - 2.5 02/17 ENZYMES [facility] CARDIAC Total CK 774 12 - 191 02/17 Greater ENZYMES /2015 [facility] CARDIAC CK MB 5.2 0.5 - 3.6 02/17 [facility] ENZYMES /2015 [facility] CARDIAC Troponin-I 0.02 0.00 - 02/17 [facility] ENZYMES 0.40 /2015 [facility] CHEM PANEL eGFR 116 02/17 [facility] Comment: The [facility] eGFR is calculated using the [...] 4.2 2.0 - 4.0 02/17 [facility] CHEM PANEL B/C Ratio 6 6 - 25 02/17 [facility] CHEM PANEL A/G Ratio 0.8 0.7 - 1.6 02/17 r [facility] CHEM PANEL Calcium Lvl 8.2 8.5 - 10.5 02/17 ater [facility] CHEM PANEL AST 117 0 - 37 02/17 [facility] CHEM PANEL ALT 62 0 - 65 02/17 [facility] CHEM PANEL Glucose Lvl 84 70 - 99 02/17 r [facility] CHEM PANEL BUN 5 7 - 22 02/17 [facility] CHEM PANEL Creatinine 0.90 0.50 - 02/17 [facility] Lvl 1.40 [facility] CHEM PANEL Chloride Lvl 96 95 - 109 02/17 [facility] CHEM PANEL Sodium Lvl 133 135 - 145 02/17 [facility] CHEM PANEL Potassium 4.7 3.5 - 5.1 02/17 r Lvl [facility] CHEM PANEL CO2 36 24 - 32 02/17 [facility] CHEM PANEL AGAP 5.7 10.0 - 02/17 Greater 20.0 [facility] CHEM PANEL Alk Phos 110 39 - 136 02/17 [facility] CHEM PANEL Bili Total 0.6 0.2 - 1.3 02/17 [facility] CHEM PANEL Total 7.5 6.4 - 8.4 02/17 Protein [facility] CHEM PANEL Albumin Lvl 3.3 3.5 - 5.0 02/17 [facility] HEMATOLOGY Segs 62.9 45.0 - 02/17 Greater 75.0 /2015 [facility] HEMATOLOGY Lymphocytes 22.7 20.0 - 02/17 Greate r 40.0 /2015 [facility] HEMATOLOGY Plt Morph Normal 02/17 (02/18/16 12:22 PM) [facility] HEMATOLOGY RBC Morph Normal 02/17 Greater (02/18/16 12:22 PM) /2015 [facility] HEMATOLOGY Segs-Bands # 3.9 1.5 - 8.1 02/17 Gre ater /2015 [facility] HEMATOLOGY Basophils 1.2 0.0 - 1.0 02/17 Greate r /2015 [facility] HEMATOLOGY Eosinophils 2.7 0.0 - 4.0 02/[address] /2015 [facility] HEMATOLOGY Monocytes 10.5 2.0 - 12.0 02/17 Great er /2015 [facility] HEMATOLOGY Basophils # 0.1 0.0 - 0.2 02/[address] /2015 [facility] HEMATOLOGY Monocytes # 0.6 0.0 - 0.8 02/[address] [facility] HEMATOLOGY Eosinophils 0.2 0.0 - 0.5 02/[address] # /2015 [facility] HEMATOLOGY Lymphocytes 1.4 1.0 - 5.5 02/[address] # /2015 [facility] HEMATOLOGY WBC 6.1 3.7 - 10.4 02/17 [facility] HEMATOLOGY Hgb 13.0 14.0 - 02/17 Greater 18.0 /2015 [facility] HEMATOLOGY RDW 14.4 11.5 - 02/17 Greater 14.5 [facility] HEMATOLOGY MCV 87.9 80.0 - 02/17 Greater 94.0 /2015 [facility] HEMATOLOGY MCHC 32.8 32.0 - 02/17 Greater 36.0 [facility] HEMATOLOGY Hct 39.6 42.0 - 02/17 Greater 54.0 /2015 [facility] HEMATOLOGY RBC 4.51 4.70 - 02/17 Greater 6.10 [facility] HEMATOLOGY Platelet 228 133 - 450 02/17 [facility] HEMATOLOGY MCH 28.9 27.0 - 02/17 Greater 31.0 /2015 [facility] HEMATOLOGY MPV 9.5 7.4 - 10.4 02/17 [facility] URINE AND UA Mucus Few /LPF None Seen 11/22 STOOL /LPF /2014 [facility] URINE AND UA Sq Epi Occasional Few /LPF 11/22 STOOL /LPF /2014 [facility] URINE AND UA Ketones Trace Negative 11/22 STOOL *ABN* /2014 [facility] (11/22/14 11:38 AM) URINE AND UA Nitrite Negative Negative 11/22 STOOL (11/22/14 11:38 AM) [place] URINE AND UA 2.0 0.1 - 1.0 11/22 STOOL Urobilinogen /2014 [facility] URINE AND UA Blood Negative Negative 11/22 STOOL (11/22/14 11:38 AM) [place] URINE AND UA Leuk Est Negative Negative 11/22 STOOL (11/22/14 11:38 AM) [place] URINE AND UA Color Yellow Yellow 11/22 STOOL *NA* /2014 [facility] (11/22/14 11:38 AM) URINE AND UA Turbidity Clear Clear 11/22 STOOL (11/22/14 11:38 AM) [place] URINE AND UA Glucose Negative Negative 11/22 STOOL (11/22/14 11:38 AM) [place] URINE AND UA Protein 30 mg/dL Negative 11/22 STOOL mg/dL [facility] URINE AND [...] PANEL CO2 30 24 - 32 11/22 [facility] CHEM PANEL Chloride Lvl 103 95 - [...] values reflect the clinical guidelines
of the [employer]. CHEM PANEL B/C Ratio 9 6 - 25 11/22 [facility] CHEM PANEL Globulin 4.3 2.0 - 4.0 11/22 [facility] CHEM PANEL A/G Ratio 1.0 0.7 - 1.6 11/22 [facility] CHEM PANEL AGAP 9.6 10.0 - 11/22 20.0 [facility] HEMATOLOGY MCHC [...] Center HEMATOLOGY Hct 43.9 42.0 - 11/22 MH 54.0 /2014 [facility] Hgb 14.5 14.0 - 11/22 MH 18.0 /2014 [facility] WBC 8.2 3.7 - 10.4 11/22 [facility] HEMATOLOGY Basophils 0.8 0.0 - 1.0 11/22 [facility] HEMATOLOGY Segs-Bands # 6.0 1.5 - 8.1 11/22 [facility] HEMATOLOGY Monocytes # 0.6 0.0 - 0.8 11/22 [facility] HEMATOLOGY Lymphocytes 1.4 1.0 - 5.5 11/22 MH /2014 [facility] HEMATOLOGY Basophils # 0.1 0.0 - 0.2 11/22 [facility] HEMATOLOGY Eosinophils 0.1 0.0 - 0.5 11/22 MH [facility] HEMATOLOGY Monocytes 7.5 [...] values reflect the clinical guidelines
of the [employer]. CHEM PANEL Creatinine 1.1 0.5 - 1.4 08/17 Lvl /2014 [facility] CHEM PANEL Sodium Lvl 138 135 - 145 08/17 [facility] CHEM PANEL Chloride Lvl 105 95 - 109 08/17 [facility] CHEM PANEL Potassium 3.9 3.5 - 5.1 08/17 Lvl [facility] CHEM PANEL CO2 24 24 - 32 [...] HEMATOLOGY Eosinophils 0.3 0.0 - 0.5 08/17 # /2014 [facility] HEMATOLOGY Monocytes # 1.1 [...] HEMATOLOGY Eosinophils 2.7 0.0 - 4.0 08/17 [facility] HEMATOLOGY RDW 16.2 11.5 - 08/17 MH [...] PANEL Magnesium 2.0 1.8 - 2.4 08/16 Lvl [facility] CHEM PANEL Phosphorus [...] values reflect the clinical guidelines
of the [employer]. ELECTROLYT Creatinine 1.1 0.5 - 1.4 08/16 MH ES Lvl /2014 [place] ELECTROLYT BUN 10 7 - 22 08/16 ES /2014 [facility] ELECTROLYT CO2 24 24 - 32 08/16 ES /2014 [facility] ELECTROLYT Sodium Lvl 137 135 - 145 08/16 ES [facility] ELECTROLYT Chloride Lvl 104 95 - 109 08/16 ES [place] ELECTROLYT Potassium 3.6 3.5 - 5.1 08/16 ES Lvl /2014 [facility] ELECTROLYT Calcium Lvl 8.3 8.5 - 10.5 [...] Basophils # 0.1 0.0 - 0.2 08/16 [facility] HEMATOLOGY Segs-Bands # 12.1 1.5 - 8.1 08/16 [facility] HEMATOLOGY Basophils 0.8 0.0 - 1.0 08/16 [facility] HEMATOLOGY Lymphocytes 1.2 1.0 - 5.5 08/16 /2014 [facility] HEMATOLOGY Monocytes # 1.3 0.0 - 0.8 08/16 [facility] HEMATOLOGY WBC 14.8 3.7 - 10.4 08/16 [facility] HEMATOLOGY Platelet 249 133 - 450 08/16 [facility] HEMATOLOGY RDW 16.2 11.5 - 08/16 MH 14.5 [facility] HEMATOLOGY MCH 28.3 27.0 - 08/16 MH 31.0 /2014 [facility] HEMATOLOGY MCHC 31.7 32.0 - 08/16 36.0 /2015 [facility] HEMATOLOGY MPV 9.4 7.4 - 10.4 08/16 /2014 [facility] HEMATOLOGY Hct 39.5 42.0 - 08/16 54.0 /2015 [facility] HEMATOLOGY MCV 89.1 80.0 - 08/16 94.0 /2014 [facility] HEMATOLOGY Hgb 12.6 14.0 - 08/16 18.0 /2014 [facility] HEMATOLOGY RBC 4.44 4.70 - 08/16 6.10 /2014 [facility] MOLECULAR Adenovirus Negative 12 Negative 08/16 <sup>12</sup> DIAGNOSTIC PCR (08/15/14 11:56 PM) /2014 [facility] Data: The Adenovirus PCR assay is a [...] fied by the [facility] within [facility]. The Molecular Diagnostic Laboratory is authorized under
the Clinical Laboratory Improvement Amendments of 1988 (CLIA-88) to
perfor m high complexity testing. MOLECULAR Source [employer] AC[employer] ADJUSTER Swab 08/16 DIAGNOSTIC Adenovirus (08/15/14 11:56 PM) /2014 [facility] PCR MOLECULAR Parainfluenz Negative Negative 08/16 DIAGNOSTIC a 2 PCR (08/15/14 11:56 PM) /2014 No [facility]ast MOLECULAR Source [employer] ACID ADJUSTER Swab 08/16 DIAGNOSTIC Parainfluenz (08/15/14 11:56 PM) [...] fied by the [facility] within [facility]. The [facility] Diagnostic Laboratory is authorized
under the Clinical Laboratory Improvement Amendments of 1988
(CLI A-88) to perform high complexity testing. MOLECULAR Source [employer] ACID ADJUSTER Swab 08/16 DIAGNOSTIC Respiratory (08/15/14 11:56 PM) [...] verified by
the [facility] within [facility]. The
[facility] Diagnostic Laboratory is authorized under the Clinical
Laboratory Improvement Amendments of 1988 (CLIA-88) to perform high
comp lexity testing. MOLECULAR Influenza B Negative Negative 08/16 DIAGNOSTIC PCR (08/15/14 11:56 PM) No r[facility]ast MOLECULAR Influenza A Negative Negative 08/16 DIAGNOSTIC PCR (08/15/14 11:56 PM) No rtheast CARDIAC Total CK 516 12 - 191 08/15 ENZYMES /2014 [place] [...] values reflect the clinical guidelines
of the [employer]. CHEM PANEL BUN 12 7 - 22 08/15 [facility] CHEM PANEL CO2 22 24 - 32 08/15 [facility] CHEM PANEL Potassium 3.7 3.5 - 5.1 08/15 Lvl [facility] CHEM PANEL Sodium Lvl 136 135 - 145 08/15 [facility] CHEM PANEL Creatinine 1.1 0.5 - 1.4 08/15 Lvl [facility] CHEM PANEL Chloride Lvl 104 95 - 109 08/15 [facility] CHEM PANEL Calcium Lvl 8.5 8.5 - 10.5 08/15 [facility] CHEM PANEL AGAP 13.7 10.0 - 08/15 MH 20.0 [facility] HEMATOLOGY Basophils # 0.2 0.0 - 0.2 08/15 [facility] HEMATOLOGY Basophils 1.4 0.0 - 1.0 08/15 [...] Center HEMATOLOGY Segs 81.4 45.0 - 08/15 MH 75.0 /2014 [facility] HEMATOLOGY Segs-Bands # 11.4 1.5 - 8.1 08/15 [facility] HEMATOLOGY Platelet 267 133 - 450 08/15 [facility] HEMATOLOGY RDW 16.4 11.5 - 08/15 MH 14. [facility] HEMATOLOGY MPV 9.4 7.4 - 10.4 08/15 [facility] HEMATOLOGY MCHC 31.1 32.0 - 08/15 MH 36.0 /2014 [facility] HEMATOLOGY MCH 27.8 27.0 - 08/15 31.0 [facility] HEMATOLOGY RBC 4.61 4.70 - 08/15 MH 6.10 /2014 [facility] HEMATOLOGY WBC 14.1 3.7 - 10.4 08/15 /2014 [facility] HEMATOLOGY MCV 89.2 80.0 - 08/15 94.0 /2014 [facility] HEMATOLOGY Hct 41.1 [...] Cocaine Negative Negative 08/15 MH SCREEN Scr *NA* [facility] (08/15/14 4:00 AM) DRUG U Armida Scr Negative Negative 08/15 MH SCREEN *NA* [facility] (08/15/14 4:00 AM) DRUG U Benzodia Negative Negative 08/15 MH SCREEN Scr * [facility] (08/15/14 4:00 AM) DRUG UDS Note See Note 9 08/15 <sup>9</sup>I MH SCREEN * nterpretive [facility] (08/15/14 4:00 AM) Data: Drugs reported as positive have not been confirmed by a second
ri thod and should be used for medical [...] UA Spec Grav 1.025 <=1.030 08/14 STOOL /2014 [facility] URINE AND UA Turbidity Clear Clear 08/14 STOOL (08/14/14 9:25 AM) [place] URINE AND UA pH 6.0 5.0 - 8.0 08/14 STOOL /2014 [facility] URINE AND UA Protein 30 mg/dL Negative 08/14 STOOL mg/dL /2014 [facility] URINE AND UA Color Yellow Yellow 08/14 STOOL *NA* /2014 [facility] (08/14/14 9:25 AM) URINE AND UA Bili Negative Negative 08/14 STOOL *NA* [facility] (08/14/14 9:25 AM) URINE AND UA Ketones 15 mg/dL Negative 08/14 STOOL mg/dL /2014 [facility] URINE AND UA Glucose Negative Negative 08/14 [...] /LPF None Seen 08/14 STOOL /LPF /2014 [facility] URINE AND UA RBC None Seen 0 - 2 08/14 STOOL (08/14/14 9:25 AM) /[address] [place] URINE AND UA WBC None Seen [...] MB 5.6 0.5 - 3.6 08/14 ENZYMES /2014 [facility] CARDIAC CK MB [...] [facility] HEMATOLOGY INR 1.01 0.85 - 08/14 <sup>10</sup> 1.17 Interpretive [facility] [...] Plt Morph Normal 08/14 (08/14/14 8:49 AM) [facility] VIRAL - Influ A Negative Negative 08/14 SEROLOGY (08/14/14 8:49 AM) [place] VIRAL - Influ B Negative 15 Negative 08/14 <sup>15</sup> SEROLOGY (08/14/14 8:49 AM) /[facility] Data: Influenza A&B Antigen:
Due to the [...] PANEL Magnesium 2.1 1.8 - 2.4 05/13 [facility] CHEM PANEL Phosphorus 4.9 2.5 - 4.5 05/13 [facility] Center2013 [facility] CHEM PANEL eGFR 124 05/13 <sup>1</sup>R [facility] s [facility] Medical Comment: The Center eGFR is calculated [...] PANEL CO2 23 24 - 32 05/13 [facility] CHEM PANEL Calcium Lvl 9.4 8.5 - 10.5 05/13 [facility] CHEM PANEL Potassium 4.9 3.5 - 5.1 05/13 [facility] CHEM PANEL Sodium Lvl 135 135 - 145 05/13 [facility] CHEM PANEL Glucose Lvl 83 70 - 99 05/13 <sup>4</sup>I nterpretive Medical Data: Adult Center reference range values reflect the clinical guidelines
of the [employer]. CHEM PANEL Creatinine 0.8 0.5 - 1.4 05/13 [facility] CHEM PANEL BUN 11 7 - 22 05/13 [facility] CHEM PANEL Chloride Lvl 100 95 - 109 05/13 [facility] CHEM PANEL AGAP 16.9 10.0 - 05/13 [place] 20.0 [facility] HEMATOLOGY Eosinophils 0.3 0.0 - 0.5 05[place]13 [place] [facility] HEMATOLOGY Monocytes # 1.3 0.0 - 0.8 05/13 [facility] HEMATOLOGY Lymphocytes 1.2 1.0 - 5.5 05/13 [place] [facility] HEMATOLOGY Segs-Bands # 6.4 1.5 - 8.1 05/13 [facility] HEMATOLOGY Basophils 0.4 0.0 - 1.0 05/13 [facility] HEMATOLOGY Eosinophils 3.1 0.0 - 4.0 05/13 [facility] HEMATOLOGY Segs 69.3 45.0 - 05/13 [place] 75.0 [facility] HEMATOLOGY Monocytes 14.0 2.0 - 12.0 05/13 [facility] HEMATOLOGY Lymphocytes 13.2 20.0 - 05/13 [place] 40.0 [facility] HEMATOLOGY Hgb 12.8 14.0 - 05/13 [place] 18.0 [facility] HEMATOLOGY RBC 4.62 4.70 - 05/13 [place] 6.10 [facility] HEMATOLOGY MCV 86.0 80.0 - 05/13 [place] 94.0 /2013 [facility] HEMATOLOGY Hct 39.7 42.0 - 05/13 [place] 54.0 [facility] HEMATOLOGY Platelet 222 133 - 450 05/13 [facility] HEMATOLOGY RDW 14.3 11.5 - 05/13 [place] 14.5 [facility] HEMATOLOGY MCHC 32.3 32.0 - 05/13 [place] 36.0 [facility] HEMATOLOGY MCH 27.7 27.0 - 05/13 [place] 31.0 [facility] HEMATOLOGY MPV 8.9 7.4 - 10.4 05/13 [facility] HEMATOLOGY WBC 9.2 3.7 - 10.4 05/13 [facility] CARDIAC CK MB Index 0.3 0.0 - 2.5 05/12 [facility] ENZYMES [facility] CARDIAC CK MB 1.2 0.5 - 3.6 05/12 [facility] ENZYMES [facility] CARDIAC Total CK 400 12 - 191 05/12 [facility] ENZYMES [facility] CARDIAC Troponin-I <0.02 0.00 - 05/12 [facility] ENZYMES 0.40 [facility] CHEM PANEL Magnesium 2.2 1.8 - 2.4 05/12 [facility] Lvl [facility] CHEM PANEL eGFR 118 05/12 <sup>2</sup>[place] [facility] Medical Comment: The Center eGFR is [...] Calcium Lvl 9.1 8.5 - 10.5 05/12 [facility] CHEM PANEL CO2 25 24 - 32 05/12 [facility] CHEM PANEL Chloride Lvl 101 95 - 109 05/12 [facility] CHEM PANEL Potassium 4.1 3.5 - 5.1 05/12 [facility] CHEM PANEL Sodium Lvl 137 135 - 145 05/12 [facility] CHEM PANEL Creatinine 0.9 0.5 - 1.4 05/12 [facility] CHEM PANEL BUN 6 7 - 22 05/12 [facility] CHEM PANEL Glucose Lvl 89 70 - 99 05/12 <sup>5</sup>I nterpretive Medical Data: Adult Center reference range values reflect the clinical guidelines
of the [employer]. CHEM PANEL AGAP 15.1 10.0 - 05/12 20.0 [facility] CHEM PANEL Phosphorus 4.6 2.5 - 4.5 05/12 [facility] HEMATOLOGY MCH 28.3 27.0 - 05/12 31.0 [facility] HEMATOLOGY MCHC 33.1 32.0 - 05/12 [place] 36.0 [facility] HEMATOLOGY RDW 14.2 11.5 - 05/12 [place] 14.5 [facility] HEMATOLOGY Platelet 231 133 - 450 05/12 [facility] HEMATOLOGY MPV 9.5 7.4 - 10.4 05/12 [facility] HEMATOLOGY WBC 8.9 3.7 - 10.4 05/12 [facility] HEMATOLOGY Hgb 12.6 14.0 - 05/12 [place] 18.0 [facility] HEMATOLOGY MCV 85.3 80.0 - 05/12 [place] 94.0 [facility] HEMATOLOGY Hct 38.1 42.0 - 05/12 [place] 54.0 [facility] HEMATOLOGY RBC 4.47 4.70 - 05/12 [place] 6.10 [facility] HEMATOLOGY Monocytes # 0.9 0.0 - 0.8 05[place] [facility] HEMATOLOGY Lymphocytes 1.3 1.0 - 5.5 05/12 [place]2013 [facility] HEMATOLOGY Eosinophils 1.9 0.0 - 4.0 05/12 [place] [facility] [place] HEMATOLOGY Segs-Bands # 6.5 1.5 - 8.1 05/12 [place] [facility] /2013 [facility] HEMATOLOGY Basophils 0.4 0.0 - 1.0 05/12 [facility] [place] HEMATOLOGY Segs 72.9 45.0 - 05/12 [place] 75.0 /2013 [facility] HEMATOLOGY Monocytes 9.8 2.0 - 12.0 05/12 [facility] HEMATOLOGY Lymphocytes 15.0 20.0 - 05/12 [place] 40.0 [facility] HEMATOLOGY Eosinophils 0.2 0.0 - 0.5 05/12 [place] [facility] IMMUNOLOGY [place]-Hep C Negative Negative 05/12 [facility] Ab *NA* /2013 Medical (05/12/14 3:01 AM) [facility] CARDIAC Total CK 447 12 - 191 05/11 [place] ENZYMES [facility] CARDIAC CK MB 2.2 0.5 - 3.6 05/11 [place] [facility] CARDIAC CK MB Index 0.5 0.0 - 2.5 05/11 [place] [facility] CARDIAC Troponin-T <0.010 0.000 - 05/11 [place] ENZYMES 0. [facility] CARDIAC Troponin-I <0.02 0.00 - 05/11 [place] ENZYMES 0.40 [facility] CARDIAC Troponin-I <0.02 0.00 - 05/11 [place] ENZYMES 0.40 [facility] CARDIAC Troponin-T <0.010 0.000 - 05/11 [place] ENZYMES 0.100 [facility] CARDIAC Total CK 455 12 - 191 05/11 [place] ENZYMES [facility] CARDIAC CK MB Index 0.5 0.0 - 2.5 05/11 [place] [facility] CARDIAC CK MB 2.2 0.5 - 3.6 05/11 [facility] CHEM PANEL Phosphorus 2.9 2.5 - 4.5 05/11 [facility] CHEM PANEL Magnesium 2.0 1.8 - 2.4 05/11 [facility] Lvl [facility] CARDIAC Troponin-T <0.010 0.000 - 05/11 [facility] ENZYMES 0.100 [facility] TOXICOLOGY Val[place] Tr 11.9 05/11 <sup>7</sup>I nterpretive Medical Data: Center Therapeutic Range:
Trough: 10 - 20 ug/mL
Peak: 20 - 40 ug/mL
Potential Toxicity: >80 ug/mL TOXICOLOGY Valdez Tr TND 21:30 05/11 [facility] ELECTROLYT AGAP 13.9 10.0 - 05/11 [facility] ES 20.0 [facility] ELECTROLYT eGFR 104 05/11 <sup>3</sup>R [facility] Medical Comment: The Center eGFR is calculated [...] ELECTROLYT BUN 9 7 - 22 05/11 [facility] ELECTROLYT Glucose Lvl 106 70 - 99 05/11 <sup>6</sup>I [facility] nterpretive Medical Data: Adult Center reference range values reflect the clinical guidelines
of the [employer]. ELECTROLYT Calcium Lvl 8.6 8.5 - 10.5 05/11 [facility] ELECTROLYT CO2 25 24 - 32 05/11 [facility] ELECTROLYT Sodium Lvl 140 135 - 145 05/11 [facility] ELECTROLYT Creatinine 1.0 0.5 - 1.4 05/11 [facility] Lvl [facility] ELECTROLYT Potassium 3.9 3.5 - 5.1 05/11 [place] [facility] Lvl [facility] ELECTROLYT Chloride Lvl 105 95 - 109 05/11 [place] [facility] HEMATOLOGY Segs 79.8 45.0 - 05/11 [place] 75.0 [facility] HEMATOLOGY Lymphocytes 10.5 20.0 - 05/11 [place] 40.0 [facility] HEMATOLOGY Monocytes 7.4 2.0 - 12.0 05/11 [facility] HEMATOLOGY Eosinophils 2.0 0.0 - 4.0 05/11 [facility] [place] HEMATOLOGY Basophils 0.3 0.0 - 1.0 05/11 [facility] [place] HEMATOLOGY Lymphocytes 1.0 1.0 - 5.5 05/11 [place] [facility] HEMATOLOGY Segs-Bands # 7.4 1.5 - 8.1 05/11 [facility] HEMATOLOGY Monocytes # 0.7 0.0 - 0.8 05/11 [facility] HEMATOLOGY Eosinophils 0.2 0.0 - 0.5 05/11 [place] [facility] [place] HEMATOLOGY MPV 9.3 7.4 - 10.4 05/11 [facility] HEMATOLOGY Platelet 200 133 - 450 05/11 [facility] HEMATOLOGY WBC 9.3 3.7 - 10.4 05/11 [facility] HEMATOLOGY RBC 4.19 4.70 - 05/11 [place] 6.10 [facility] HEMATOLOGY Hgb 11.8 14.0 - 05/11 [place] 18.0 [facility] HEMATOLOGY MCV 86.3 80.0 - 05/11 [place] 94.0 [facility] HEMATOLOGY Hct 36.2 42.0 - 05/11 [place] 54.0 [facility] HEMATOLOGY MCH 28.2 27.0 - 05/11 [place] 31.0 [facility] HEMATOLOGY RDW 14.6 11.5 - 05/11 [place] 14.5 [facility] HEMATOLOGY MCHC 32.7 32.0 - 05/11 [place] 36.0 /2013 [facility] TOXICOLOGY V[place] Tr TND 130am 05/11 [place] [facility] TOXICOLOGY V[place] Tr 2.6 05/11 <sup>8</sup>I [facility] nterpretive Medical Data: Center Therapeutic Range:
Trough: [...] Center CHEM PANEL AGAP 14.4 10. - 05/08. [facility] CHEM PANEL B/C [...] values reflect the clinical guidelines
of the [employer]. CHEM PANEL Sodium Lvl 142 135 - 145 05/08 [facility] CHEM PANEL Creatinine 1.0 0.5 - 1.4 05/08 Lvl [facility] CHEM PANEL Potassium 3.4 3.5 - 5.1 05/08 Lvl [facility] CHEM [...] Chloride Lvl 104 95 - 109 05/08 [place] CHEM PANEL CO2 27 24 - 32 [...] Center HEMATOLOGY RBC 4.33 4.70 - 05/08 6. [facility] HEMATOLOGY Platelet 193 133 - 450 05/08 [facility] HEMATOLOGY RDW 14.3 11.5 - 05/08 MH 14.5 /2013 [facility] HEMATOLOGY MCHC 33.6 32.0 - 05/08 MH 36.0 /2013 [facility] [...] CK 360 12 - 191 02/09 ENZYMES [facility] CHEM PANEL Magnesium [...] values reflect the clinical guidelines
of the [employer]. HEMATOLOGY WBC 5.7 3.7 - [...] [facility] HEMATOLOGY Hct 37.8 42.0 - 07/ MH 54.0 /2014 [facility] HEMATOLOGY Monocytes # 0.8 0.0 - 0.8 / MH /2013 [facility] HEMATOLOGY Eosinophils 0.2 0.0 - 0.5 /11 MH # /2014 [facility] HEMATOLOGY Lymphocytes 1.6 1.0 - 5.5 /11 MH # /2014 [facility] HEMATOLOGY Segs-Bands # 3.2 1.5 - 8.1 07 [facility] HEMATOLOGY Eosinophils 3.0 0.0 - 4.0 02/09 [facility] HEMATOLOGY Basophils 0.3 0.0 - 1.0 02/09 [facility] HEMATOLOGY Monocytes 13.5 2.0 - 12.0 02/09 [facility] HEMATOLOGY Lymphocytes 27.9 20.0 - 02/09 MH 40.0 /2013 [facility] HEMATOLOGY Segs 55.3 45.0 - 02/09 MH 75.0 /2013 [facility] URINE CHEM U [...] values reflect the clinical guidelines
of the [employer]. CHEM PANEL Calcium Lvl 8.9 8.5 - 10.5 02/08 [facility] CHEM PANEL CO2 32 24 - 32 / [facility] CHEM PANEL Potassium 3.6 3.5 - 5.1 / MH Lv [facility] CHEM PANEL AGAP 9.6 10.0 - 07 MH 20.0 /2013 [facility] CHEM PANEL Chloride Lvl 100 95 - 109 07 [facility] CHEM PANEL Uric Acid 7.8 3.8 - 8.0 02/08 [facility] CHEM PANEL Magnesium 2.2 1.8 - 2.4 / MH [facility] HEMATOLOGY Platelet 185 133 - 450 02/08 [facility] HEMATOLOGY MCHC 33.0 32.0 - 07 36.0 /2013 [facility] HEMATOLOGY MCV 85.4 80.0 - 02/08 94.0 /2013 [facility] HEMATOLOGY MCH 28.2 27.0 - 0710 MH 31.0 /2013 [facility] HEMATOLOGY Hct 39.5 42.0 - 07 MH 54.0 /2013 [facility] HEMATOLOGY RDW 13.9 11.5 - 07 14.5 /2013 [facility] HEMATOLOGY MPV 8.7 7.4 - 10.4 02/08 [facility] HEMATOLOGY Hgb 13.0 14.0 - 02/08 MH 18.0 /2013 [facility] HEMATOLOGY RBC 4.62 4.70 - 07 MH 6.10 [facility] HEMATOLOGY WBC 5.7 [...] Segs-Bands # 3.4 1.5 - 8.1 02/08 [facility] HEMATOLOGY Lymphocytes 1.4 1.0 - 5.5 02/08 # /2013 [facility] HEMATOLOGY Monocytes # 0.7 0.0 - 0.8 02/08 /2013 [facility] HEMATOLOGY Eosinophils 0.2 0.0 - 0.5 02/08 # /2013 [facility] URINE AND Micro? Performed 02/07 STOOL (02/07/14 [...] Clear Clear 02/07 [facility] (02/07/14 12:00 PM) [facility] URINE AND UA Spec Grav 1.025 <=1.030 02/07 STOOL /2013 [facility] URINE AND UA pH 6.0 5.0 - 8.0 02/07 STOOL [facility] URINE AND UA Protein Trace Negative 02/07 [facility] *ABN* /2013 [facility] (02/07/14 12:00 PM) URINE AND UA Glucose Negative Negative 02/07 MH STOOL (02/07/14 12:00 PM) /2013 [facility] [facility] CARDIAC CK MB Index 0.7 0.0 - 2.5 02/07 ENZYMES /2013 [facility] CARDIAC CK MB 5.2 0.5 - 3.6 02/07 ENZYMES /2013 [facility] CARDIAC Troponin-I <0.02 0.00 - 07 ENZYMES 0.40 /2013 [facility] CARDIAC Total CK 741 12 - 191 02/07 ENZYMES [facility] CHEM PANEL Lipase Lvl 102 73 - 393 02/07 [facility] CHEM PANEL eGFR 36 02/07 <sup>3</sup>R /2013 esult [facility] Comment: The [...] PANEL Total 7.9 6.4 - 8.4 02/07 MH Protein [facility] CHEM PANEL Calcium Lvl 9.2 8.5 - 10.5 02/07 [facility] CHEM PANEL ALT 40 0 - 65 02/07 [facility] CHEM PANEL Albumin Lvl 4.1 3.5 - 5.0 02/07 [facility] CHEM PANEL Creatinine 2.4 0.5 - 1.4 02/07 Lvl [facility] CHEM PANEL BUN 26 7 - 22 02/07 /2013 [facility] CHEM PANEL Glucose Lvl 100 70 - 99 02/07 <sup>6</sup>I /2013 nterpretive [facility] Data: Adult reference range values reflect the clinical guidelines
of the [employer]. CHEM PANEL Chloride Lvl 98 95 - 109 02/07 /2013 [facility] CHEM PANEL Potassium 3.1 3.5 - 5.1 / MH Lvl /2013 [facility] CHEM PANEL Sodium Lvl 135 135 - 145 02/07 /2013 [facility] CHEM PANEL Globulin 3.8 2.0 - 4.0 / /2013 [facility] CHEM PANEL B/C Ratio 11 6 - 25 02/07 /2013 [facility] CHEM PANEL [...] HEMATOLOGY MPV 8.7 7.4 - 10.4 / /2013 [facility] HEMATOLOGY Platelet 236 133 - 450 07/ MH /2013 [facility] HEMATOLOGY MCH 28.3 27.0 - 02/07 MH 31.0 /2013 [facility] HEMATOLOGY MCV 84.9 80.0 - 02/07 MH 94.0 /2013 [facility] HEMATOLOGY Hct 43.9 42.0 - 02/07 MH 54.0 /2013 [facility] HEMATOLOGY WBC 8.4 3.7 - 10.4 02/07 MH /2013 [facility] HEMATOLOGY RBC 5.18 4.70 - 02/07 MH 6.10 /2013 [facility] HEMATOLOGY Hgb 14.6 14.0 - 02/07 MH 18.0 /2013 [facility] [...] [facility] Center HEMATOLOGY Segs 67.6 45.0 - 07 MH 75.0 /2013 [facility] HEMATOLOGY Lymphocytes 18.4 20.0 - 07 MH 40.0 /2013 [facility] HEMATOLOGY Monocytes 11.9 2.0 - 12.0 02/07 [facility] HEMATOLOGY Basophils 0.6 0.0 - 1.0 02/07 [facility] IMMUNOLOGY [facility] HIV 4th Negative Negative 02/07 GEN (02/07/14 7:45 AM) [facility] CHEMISTRY Magnesium 2.3 1.8 - 2.4 07/21 [...] Creatinine 1.0 0.5 - 1.4 07/21 Normal Lvl [facility] CHEMISTRY Sodium Lvl 137 135 - 145 07/21 Normal [facility] CHEMISTRY Potassium 4.4 3.5 - 5.1 07/21 Normal Lvl [facility] CHEMISTRY Chloride Lvl 105 95 - 109 07/21 Normal MH /2012 [facility] CHEMISTRY CO2 24 24 - 32 12/ Normal MH /2012 [facility] CHEMISTRY Calcium Lvl 8.6 8.5 - 10.5 07/21 Normal MH /2012 [facility] CHEMISTRY Glucose Lvl 107 70 - 99 07/21 HI <sup>8</sup>I /2012 nterpretive [facility] Data: Adult reference range values reflect the clinical guidelines
of the [employer]. CHEMISTRY AGAP 12.4 10.0 - 07/21 Normal MH 20.0 /2012 [facility] HEMATOLOGY RDW 14.3 11.5 - 12 Normal MH 14.5 /2012 [facility] HEMATOLOGY MCHC 32.8 32.0 - 12 Normal MH 36.0 /2012 [facility] HEMATOLOGY MCH 28.3 27.0 - 07/21 Normal MH 31.0 /2012 [facility] HEMATOLOGY MCV 86.4 80.0 - 07/21 Normal MH 94.0 /2012 [facility] HEMATOLOGY Platelet 243 133 - 450 07/21 Normal MH /2012 [facility] HEMATOLOGY MPV 10.0 7.4 - 10.4 07/21 Normal MH /2012 [facility] HEMATOLOGY WBC X 10x3 11.1 3.7 - 10.4 07/21 HI MH /2012 [facility] HEMATOLOGY Hgb 12.3 14.0 - 07/21 LOW MH 18.0 /2012 [facility] HEMATOLOGY RBC X 10x6 4.33 4.70 - 07/21 LOW MH 6.10 /2012 [facility] HEMATOLOGY Hct 37.4 42.0 - 07/21 LOW MH 54.0 /2012 [facility] HEMATOLOGY Monocytes 7.1 2.0 - 12.0 07/21 Normal MH /2012 [facility] HEMATOLOGY Eosinophils 4.6 0.0 - 4.0 / HI MH /2012 [facility] HEMATOLOGY Lymphocytes 12.1 20.0 - 12 LOW MH 40.0 /2012 [facility] HEMATOLOGY Segs 75.8 45.0 - 12 HI MH 75.0 /2012 [facility] HEMATOLOGY Lymphocytes 1.3 1.0 - 5.5 07/21 Normal MH # /2012 [facility] HEMATOLOGY Segs-Bands # 8.4 1.5 - 8.1 07/21 HI MH /2012 [facility] HEMATOLOGY Monocytes # 0.8 0.0 - 0.8 07/21 Normal MH /2012 [facility] HEMATOLOGY Eosinophils 0.5 0.0 - 0.5 / Normal MH # /2012 [facility] HEMATOLOGY Basophils [...] Creatinine 1.0 0.5 - 1.4 07/20 Normal [facility] CHEMISTRY Potassium 3.8 3.5 - 5.1 07/20 Normal MH Lvl /2012 [facility] CHEMISTRY Sodium Lvl 138 135 - 145 07/20 Normal /2012 [facility] CHEMISTRY CO2 24 24 - 32 07/20 Normal /2012 [facility] CHEMISTRY Chloride Lvl 104 95 - 109 07/20 Normal /2012 [facility] CHEMISTRY BUN 16 7 - 22 07/20 Normal /2012 [facility] CHEMISTRY Glucose Lvl 104 70 - 99 07/20 HI <sup>9</sup>I /2012 nterpretive [facility] Data: Adult reference range values reflect the clinical guidelines
of the [employer]. CHEMISTRY Bili Total 0.4 0.2 [...] CHEMISTRY BNP 34 <=100 07/20 Normal <sup>12</sup> Interpretive [facility] Data: Elevated results are in [...] /2012 [facility] HEMATOLOGY Lymphocytes 16.5 20.0 - / LOW MH 40.0 /2013 [facility] HEMATOLOGY Monocytes 9.0 2.0 - 12.0 07/20 Normal MH /2012 [facility] HEMATOLOGY Segs 69.3 45.0 - 07/20 Normal [...] Rm Air 07/20 Normal MH (07/20/2013 04:40:58) No rtheast CHEMISTRY pCO2 Art 33 35 [...] No rtheast CHEMISTRY Temp Art 37.0 07/20 [facility] CHEMISTRY Site Art [...]
For additional information, please refer to
[email or web address](This link is being provided for informational /
educati onal purposes only.)

Test Performed at:
[facility]<br/&g t;[address] [place] [address]
[place] [address] BENJIE BAUTISTA M.D. IMMUNOLOGY Mitogen - 0.10 07/19 NIL /2012 [facility] IMMUNOLOGY NIL 0.01 07/19 [facility] IMMUNOLOGY Quantiferon INDETERMIN NEGATIVE 07/19 ABN <sup>15</sup> MH - TB Gold Result [facility] Comment: Results are indeterminate for
response to ESAT-6,TB7.7 and/or
CFP-10 test antigens. CHEMISTRY Troponin-I 0.03 0.00 - 07/19 Normal MH 0.40 /2012 [facility] CHEMISTRY Total CK 456 12 - 191 07/19 HI /2012 [facility] CHEMISTRY CK-MB INDEX 0.5 0.0 - 2.5 07/19 Normal /2012 [facility] CHEMISTRY CK MB [...] Lvl 8.7 8.5 - 10.5 07/19 Normal MH /2012 [facility] CHEMISTRY CO2 24 24 - 32 07/19 Normal [facility] CHEMISTRY AGAP 13.2 10.0 - 07/19 Normal MH 20.0 [facility] CHEMISTRY Potassium 3.2 3.5 - 5.1 07/19 LOW MH Lvl [facility] CHEMISTRY Chloride Lvl 104 95 - 109 07/19 Normal [facility] CHEMISTRY Creatinine 1.1 0.5 - 1.4 07/19 Normal Lvl [facility] CHEMISTRY BUN 14 7 - 22 07/19 Normal [facility] CHEMISTRY Glucose Lvl 116 70 - 99 07/19 HI <sup>10</sup> MH /2012 Interpretive [facility] Data: Adult reference range values reflect the clinical guidelines
of the [employer]. CHEMISTRY Sodium Lvl 138 135 - 145 07/19 Normal MH [facility] CHEMISTRY LDL 111 <=99 07/19 HI MH (Calculated) /2012 [facility] CHEMISTRY HDL 29 >=61 12 LOW MH /2012 [facility] CHEMISTRY Chol 156 <=199 / Normal MH /2012 [facility] CHEMISTRY Trig 79 <=149 / Normal MH /2012 [facility] CHEMISTRY CHD Risk 5.38 4.00 - 07/19 Normal MH 7.30 /2012 [facility] CHEMISTRY Magnesium 1.7 1.8 - 2.4 07/19 LOW MH Lvl /2012 [facility] [...] 0.0 - 0.5 07/19 Normal MH # /2012 [facility] HEMATOLOGY Basophils # 0.1 0.0 - 0.2 07/19 Normal MH /2012 [facility] HEMATOLOGY Monocytes # 1.3 0.0 - 0.8 / HI MH /2012 [facility] HEMATOLOGY Eosinophils 1.7 0.0 - 4.0 / Normal MH /2012 [facility] HEMATOLOGY Lymphocytes 1.4 [...] 12 - 191 07/19 HI MH /2012 [facility] CHEMISTRY Total CK 458 12 - 191 07/19 HI [facility] CHEMISTRY Lactic Acid 1.7 0.5 - 2.2 07/19 Normal Lvl /2012 [facility] CHEMISTRY pCO2 Art 35 35 - 45 07/18 Normal [facility] CHEMISTRY pH Art 7.44 7.35 - 12/17 Normal MH 7.45 /2012 [facility] CHEMISTRY O2 Sat Art 93.2 95.0 [...] B Negative 4 Negative 07/18 Normal <sup>4</sup>I SEROLOGY (07/18/2013 13:30:08) nterpreti ve [facility] Data: [...] ASPARTATE 26 0 - 37 07/18 Normal MH TRANSAMINASE /2012 [facility] CHEMISTRY B/C Ratio 9 6 - 25 07/18 Normal [facility] CHEMISTRY ALANINE 33 0 - 65 07/18 [...] Cerebral Acci dent - R/o cva 04/19/2017 [facility] Doppler bilat US Comparison: None TECHNIQUE: [...] occlusion High, low, or Variable undetectable SL: [id number] Brain wo contrast Clinical Indication: Acute cognitive change [facility] MRI Comparison: Brain MR 07/21/2016 and [...] Indication: Headaches since 12:00 PM; 0 04/18/2017 [facility] Comparison: 07/27/2016 FINDINGS: AP chest radiographs [...] findings and impression. 04/18/2017 Marcin gutierrez SL: [id number] Clinical Indication: Headache and left face/arm tingling. [...] contrast CT Patient Name: ALLYSON LESLIE 2016 [facility] : 1965; Age: 51 years y/o Male MR: [id number] Study: Brain wo contrast CT 02/09/2017 12:35 [...] contrast CT Patient Name: ALLYSON LESLIE 08/27/2016 [facility] : 1965; Age: 50 years y/o Male MR: [id number] Study: Brain wo contrast CT 08/27/2016 1:45 [...] to be due to volume loss. SL: [id number] Brain/Neck CTA CTA NECK AND BRAIN WITH CONTRAST 07/30/2016 [facility] INDICATION: Seizures, Aphasia, DLP: 2040.09 COMPARISON: None TECHNIQUE: CTA of the neck a nd brain was performed after administration of intravenous contrast. Coronal, sagittal, and 3-D reformatted images were utilized. DISCUSSION: Image detail is degraded by motion artifacts. In addition, there is suboptimal timing of the contrast bolus, with poor opacification of the [place] and overlapping venous opacification. Evaluation [...] patent. 2. Grossly unremarkable CTA of the [place] of [place]. SL:[id number] Brain wo contrast MRI BRAIN WITHOUT CONTRAST 07/29/2016 [place] [facility] MRI INDICATION: Ataxia COMPARISON: CT brain 07/27/2016 [...] 1view DX Patient Name: ALLYSON LESLIE 07/27/2016 [facility] : 1965; Age: 50 years y/o Male MR: [id number] * CHEST, portable, 1 view HISTORY: Chest [...] No active disease. 2. Moderate cardiomegally. 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 Headache. Left-sided numbn ess. ADDITIONAL [...] no significant change compared to 02/18/2016. 03/07/2016 [facility] IMPRESSION: No acute radiographic abnormality in the chest. KAITLIN [id number] Chest w contrast CT CT CHEST WITH CONTRAST, WITH PULMONARY E MBOLUS PROTOCOL 02/18/2016 [facility] INDICATION: Syncope COMPARISON: CT chest 08/15/2014 and [...] contrast CT CT BRAIN WITHOUT CONTRAST 02/18/2016 [facility] INDICATION: Syncope, possible seizure, headache COMPARISON: None DISCUSSION: There is no evidence of a cute vascular insults, space occupying lesions, hemorrhage, hydrocephalus, midline shift, or extra-axial fluid collections. The calvarium is intact. IMPRESSION: No acute intracranial abnormalities are visua lized. SL:16 Chest 1view DX Study: Chest 1view DX portable 02/18/2016 1234 h ours 02/18/2016 [facility] Clinical Indication: Chest pain; Comparison: Chest 08/14/2014 FINDINGS: The cardiac silhou ette is top normal in size. The mediastinum is not remarkable. The lungs are incompletely i nflated. No pneumonia, vascular congestion or pleural effusion is seen. Thoracic spondylosis is note d and minor degenerative changes involve the shoulders. IMPRESSION: No acute abnormality. SL: [id number] Renal Stone CT Name: INDIRA LESLIETIMOTEO 11/22/2014 [...] excluded. SL: 24 Hand AP lateral Name: INDIRA LESLIETIMOTEO 05/08/2014 [facility] oblique : 1965 SEX: [...] Comments Source Systolic (mm Hg) 130 04/21/2017 [facility] t Diastolic (mm Hg) 82 04/21/2017 [facility] [address] Heart Rate 63 04/21/2017 [facility] Respitory Rate 19 04/21/2017 [facility] Temperature Oral (F) 98.4 F 04/21/2017 [facility] Height 180.34 cm 04/21/2017 [facility] BMI Calculated 31.45 04/21/2017 [facility] Weight 102.273 04/21/2017 [facility] Respitory Rate 18 04/19/2017 [facility] Systolic (mm Hg) 137 04/19/2017 [facility] [...] [place] t Diastolic (mm Hg) 90 04/19/[address] Heart Rate 69 04/19/2017 [facility] Temperature [...] Rate 16 11/22/2014 [facility] Weight 93.835 11/22/2014 [facility] BMI Calculated 34.42 11/22/2014 [facility] Height [...] 41.69 08/14/2014 [facility] Height 165.1 cm 08/14/2014 [facility] Diastolic (mm Hg) 82 05/13/2014 [facility] Systolic (mm Hg) 120 05/13/2014 [facility] Heart Rate 78 05/13[facility] 20 05/13/2014 [facility] Temperature Oral (F) 98.6 F 05/13/2014 [facility] Temperature Oral (F) 98.5 F 05/13/2014 [facility] Respitory Rate 20 05/13/2014 [facility] Center Systolic (mm Hg) 114 05/13/2014 [facility] Heart Rate 85 05/13/2014 [facility] Diastolic (mm Hg) 76 05/13[facility] Temperature Oral (F) 98.7 F 05/13/2014 [facility] Diastolic (mm Hg) 80 05/13/2014 [facility] Respitory Rate 18 05/13/2014 [facility] Center Heart Rate 82 05/13/2014 [facility] Systolic (mm Hg) 128 05/13/2014 [facility] Weight 97.727 05/09/[facility] Height 165.1 cm 05/09/2014 [facility] BMI Calculated 35.85 05/09/2014 [facility] Weight 97.727 05/09/2014 [facility] Height 165.1 cm 05/09/2014 [facility] Weight 113.636 05/09/2014 [facility] Height 165.1 cm 05/09/2014 [facility] BMI Calculated 41.69 05/09/2014 [facility] Respitory Rate 16 05/09/2014 [facility] Heart Rate 90 05/09/2014 [facility] Diastolic [...] Provider Date Date Visit Not Sent Inpatient [id number] NGOZI PIERRE 07/18 07/21 Ruby diaz 0 II ed [facility] [place] [id number] Cliff Oleary 11/29 11/29 M [facility] [place] [facility] Inpatient [id number] Yady 02/07 02/09 [facility] [address] [facility]a [facility] [place] [id number] Jaskaran Yi 05/08 05/09 [facility] [place] [facility] Inpatient [id number] Jaskaran Yi 05/09 05/13 [facility] Inpatient [id number] Abilio Simsi 08/14 08/18 [place] [facility] [id number] Kristen 11/22 11/22 [facility] Emergency 5 [place] [facility] [place] [id number] Wilfred Hogan 02/17 02/17 [facility] EC [id number] Stanley Mendez 03/07 03/07 [facility] OP Therapy [id number] Norman De Guzman 05/26 06/25 [facility] Patients 0 [facility] OP Therapy [id number] Norman De Guzman 07/10 08/09 [facility] [id number] Khris 07/27 07/30 [facility] Emergency [id number] Jim Trujillo 08/27 08/27 Lucien [facility] Outpatient [id number] JEAN 09/14 [facility] Out[facility] [id number] JEAN 10/01 [facility] Outpatient [id number] JEAN 01/11 [facility] Outpatient [id number] [facility] 02/09 [facility] 4 A [facility] Outpatient [id number] 02/09 02/10 [facility]patient [id number] [facility] 6 A [facility] Observation [id number] Amena 04/18 04/19 Lucien 1 Jose /2016 [facility] Emergency [id number] Jaskaran Brown 04/21 04/21 [facility] Outpatient [id number] [facility] 05/12 [facility] 5 A [place] [facility] Phone [id number] 11/04 11/06 [facility] Neurology Message Neuro [facility] Procedures Procedure Code Date Perfomer Comments Source MRI of brain and [id number] 07/29/2016 [facility] brain stem Neuro,[facility] Angioplasty of [id number] [facility] blood vessel Neuro,[facility] Hand repair [id number] [facility] Neuro,[facility] Assessment and Plan Assessment and Plan Date Source Extracted from:Title: Clinical Document 04/19/2017 [place] Author: Manohar Pope MD Date: 04/19/17 Patient admitted to my service on 2016, discharged on 04/19/2017. He can go back to his rehabilitation center without any restriction. Please call me if there is ryann question (Shivam Pope MD. [phone]) Extracted from:Title: Hospitalist H&P * Author: Amena [...] full code Extracted from:Title: Progress Note 07/30/2016 [facility] Author: Rin Morales Date: 07/30/16 Progress Note - Daily [facility] Completed: , JUL 30, 2016, 13:28 by Rin Morales RM: 508 - 01, NW DN5N ANUJ INDIRARA Lorenzo 50y (: 1965) M Attending: Khris Moon MD Service: Pulmonology/Respiratory Therapy Reason for Admission: ACUTE CEREBROVASCULAR ACCIDENT Working DRG: Other disorders of nervous system w/o CC/USP Code status: None Specified=FULL CODE Isolation: None [...] is a 50 y/o right-hand lisa nant -Chinese male c PMH of CVA in 04/2016 c residual L hemiparesis and mild dysarthria, HTN, HLD, ETOH abuse, tobacco abuse who presented to [facility] followi ng episode of increased L hemiparesis [...] reporting is ready to quit -- per [place] state law, pt is not to dri [...] Date: 07/28/16 Patient: ALLYSON LESLIE Robby RN: [id number] Age: 50 years Sex: Male : 1965 Associated Diagnoses: None Author: Rin Morales Basic Information Mr. Lesile is a 50 y/o right-hand lisa nant -Chinese male c PMH of CVA in 04/2016 c residual L hemiparesis and mild dysarthria, HTN, HLD, ETOH abuse, tobacco abuse who presented to [facility] followi ng episode of increased L hemiparesis [...] is a 50 y/o right-hand lisa nant -Chinese male c PMH of CVA in 04/2016 c residual L hemiparesis and mild dysarthria, HTN, HLD, ETOH abuse, tobacco abuse who presented to [facility] followi ng episode of increased L hemiparesis [...] movie, then went back to bed around [phone] at which time pt was in his [...] CHF (congestive heart failure) / SNOMED CT [id number] / Confirmed CVA (cerebral vascular accident) / SNOMED CT 098755757 / Con firmed HTN - Hypertension / SNOMED CT 0173257093 / Confirmed Hypercholesterolemia / SNOMED CT 32743877 / Confirmed Histories Past Medical History: Active CHF (congestive heart failure) ([id number]): Onset in 2012 at 47 years. HTN - Hypertension (6626630375) Hypercholesterolemia (69564843) CVA (cerebral vascular accident) (226314714) Resolved Diabetes ([id number]): Resolved. Spider bite wound (5537960517): Resolved. Syncope (698661370): Resolved. H/O: stroke (2993587417): Resolved. Family History: Type 1 diabetes mellitus Mother Sister Father High blood pressure Father Mother Migraine Father Stroke Father Alzheimer's disease Father Osteoarthritis Father Procedure history: Hand repair ([id number]). 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 Physical Examination VS/Measurements Measurements from flowsheet : Measurements 07/28/2016 04:18 Current Weight 99.318 kg 07/27/2016 11:13 Height 165.1 cm , Vital Signs (last 24 hrs) Last Charted _ Temp Oral H 99.3DegF (JUL 28:) Heart Rate Peripheral 88 bpm (JUL 28:) [...] including deltoid, biceps, t riceps, wrist extension, county auditor, iliopsoas , quadriceps, anterior tibialis, gastrocnemius and extensor hallucis longus. Left upper and lower extremities including deltoid 5-/5, biceps 5-/5, triceps 4+-5-/5 , wrist extension 5-/5, county auditor 5-/5, iliop soas 4+-5-/5, quadriceps 5-/5, anterior [...] is a 50 y/o right-hand lisa nant -Chinese male c PMH of CVA in 04/2016 c residual L hemiparesis and mild dysarthria, HTN, HLD, ETOH abuse, tobacco abuse who presented to [facility] followi ng episode of increased L hemiparesis [...] reporting is ready to quit -- per [place] state law, pt is not to dri [...] to influenza infection. Extracted from:Title: Hand 05/13/2014 [facility] Author: Michael Randolph MD Date: 05/13/14 Doing [...] wave sim vation. He was evaluated by director of epidemiology overnight who found his chest pain to be reproducible on exertion and EKG consistent with early repolarization. He w as given morphine with relief of chest p ain as well as ASA and metoprolol for continued hypertension. This morning he endorsed continued chest pain /10 in severity. He states that he has [...] evaluation. Cher Maxwell MD PGY-1, Anesthesiology Pager [phone] Addendum by Arnulfo Santiago MD on 05/11/2014 [...] Author: Marcelina Delgadillo MD Date: 05/09/14 Patient: INDIRA LESLIETIMOTEO Bustamante RN: [id number] Age: 48 years Sex: Male : 1965 Associated Diagnoses: None Author: Marcelina Delgadillo MD Chief Complaint 05/09/2014 05:43 left hand edema and pain 05/09/2014 02:58 Transfer from [facility] for tenosynovitis, Accepting Trevin ALDANA. Swollen [...] mg, PO, Q12H cefTRIAXone: 1 gm, IVPB, VLPP33A docusate: 100 mg, 1 cap, PO, BID [...] CHF (congestive heart failure) / SNOMED CT [id number] / Confirmed HTN - Hypertension / SNOMED CT [id number] / Confirmed Hypercholesterolemia / SNOMED CT 01719757 / Confirmed Histories Past Medical History: Active CHF (congestive heart failure) ([id number]): Onset in 2012 at 47 years. HTN - Hypertension (0183376292) Hypercholesterolemia (29267898) Resolved Diabetes ([id number]): Resolved. Social History Social and Psychosocial Habits [...] 05:20) 16 (MAY 09 05:13) 18 (MAY 09:58) SBP 110 (MAY 09 05:20) 110 (MAY [...] Jose Jackson MD Date: 02/08/14 Consultation Dictated. Filter Plant Supervisor pending. 1. dehydration 2. DARSHAN 3. Rhabdomyolysis 4. chronic systolic HF - compensated - Cr better. stop IV fluids - lasix stopped by PCP and placed on HCTZ. - check echo to see what EF is. if still low will need ische william w/up. Plan of Care No Data Provided for This Section Social History Social History Date Source Social History TypeResponse 09/14/2016 [facility] Substance Abuse Use: None. Employment/School Status: Employed. [...] beer a day. Social History TypeResponse 09/14/2016 [facility] Substance Abuse Use: None. Employment/School Status: [...] beer a day. Social History TypeResponse 09/14/2016 [facility] Caleb mcintosh Substance Abuse Use: None. Employment/School [...] beer a day. Social History TypeResponse 07/27/2016 [facility] Substance Abuse Use: None. Employment/School Status: Employed. [...] beer a day. Social History TypeResponse 02/07/2014 [facility] Substance Abuse Use: None Employment/School [...]
--- OUTSIDE RECORDS SUMMARY | 2020-05-29 12:27 | XMS REPORT | Continuity of Care Document ---
:1965 Author Organization [facility] t Address [address] [place] [address] Care Team Providers Name Role Phone Kory Botello MD Primary Care Physician Jame Yi Attending Clinician Joelle Garcia Attending Clinician Marta Trujillo Attending Clinician Robby Quinteros Attending Clinician Tiara Moon Attending Clinician Phil Mendez Attending Clinician x3 Jeny Hogan Attending Clinician Robby Harris Attending Clinician Alessandro Francois Attending Clinician Lexy Chu Attending Clinician Gumaro Attending Clinician Steve Oleary Attending Clinician Tiara Moon Admitting Clinician Alessandro Francois Admitting Clinician Lexy Chu Admitting Clinician Gumaro Admitting Clinician Problems Condition Condition Condition Status Onset Resolution Last Treating Co mments Source Name Details Category Date Date Treatment Clinician Date Low back Low Back Problem Active Miranda ge pain Pain 3-20 Family 00:00: Practic 00 e Type 2 Type 2 Problem Active [place] diabetes Diabetes 3-09 Family mellitus Mellitus 00:00: Practi c 00 e Cellulitis Cellulitis Problem Active [place] and and 3-09 Family abscess of Abscess of 00:00: Pr actic finger Finger 00 e Hyperlipid Hyperlipid Problem Active [place] emia emia 08-25 Family 00:00: Practic 00 e Body mass Body Mass Problem Active Angelo pan index 30+ Index 30+ 1-24 Fami ly - obesity - Obesity 00:00: Prac tic 00 e Alcohol Alcohol Problem Active [place] dependence Dependence 08-25 Srinivas vaughn 00:00: Practic 00 e Insomnia Insomnia Problem Active Miranda ge 08-25 Family 00:00: Practic 00 e Hypertensi Hypertensi Problem Active [place] ve ve 08-25 Family disorder Disorder 00:00: Practi c 00 e Congestive Congestive Problem Active [place] heart Heart 08-25 Family failure Failure 00:00: Practic 00 e Seizure Seizure Problem Active [place] 08-25 Family 00:00: Practic 00 e History of History of Problem Active [place] cerebrovas Cerebrovas 08-25 [facility] culla 00:00: Practic accident Accident 00 e without without residual Residual deficits Deficits GOMES Diagnosis Active 2017-04-21 Mem oria 04-20 02:25:00 l GOMES 08:00: Pfeifer 00 Active 04/20/2017 [facility] HEADACHE Diagnosis Active 2017-04-18 M emoria 04-18 19:02:00 l HEADACHE 00:00: Delvin n 00 Active 04/18/2017 [facility] I63.9 Diagnosis Active 2017-02-09 Mem oria STROKE, 02-09 12:12:00 l R58 I63.9 12:00: Pfeifer HEMORRHAGE STROKE, 00 R58 HEMORRHAGE Active 02/09/2017 [facility] STROKE Diagnosis Active 2016-12-10 [facility] oria 09-24 16:34:00 l STROKE 00:00: Pfeifer 00 Active 09/24/2016 [facility] Cerebrovas Cerebrovas Disease Active [facility] culla cular 09-18 Methodi accident accident 00:00: st (CVA) due (CVA) due 00 to to 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 SEIZURE Diagnosis Active 2016-08-27 Me moria 08-27 14:47:00 l SEIZURE 00:00: Pfeifer 00 Active 08/27/2016 [facility] ACUTE Diagnosis Active 2015-082016-07-28 Mem oria CEREBROVAS 09-27 12:07:00 l CULAR ACUTE 00:00: Lucien ACCIDENT CEREBROVAS 00 CULAR ACCIDENT Active 07/27/2016 [facility] ARM Diagnosis Active 2015-082016-07-27 Mem oria WEAKNESS, 09-27 11:50:00 l FACIAL ARM 00:00: Pfeifer DROOP WEAKNESS, 00 FACIAL DROOP Active 07/27/2016 [facility] CHEST PAIN Diagnosis Active 2016-03-07 Memoria 03-07 14:11:00 l CHEST 00:00: Pfeifer PAIN 00 Active 03/07/2016 [facility] SYNCOPE Diagnosis Active 2016-02-18 Me moria 02-17 14:55:00 l SYNCOPE 00:00: Pfeifer 00 Active 02/18/2016 [facility] BACK PAIN Diagnosis Active 2014-11-22 Memoria 11-20 17:10:00 l BACK 09:00: Pfeifer PAIN 00 Active 11/20/2014 [facility] SHORTNESS Diagnosis Active 2015-02-20 Memoria OF BREATH 1- 10:16:00 l 05:00: Lucien SHORTNESS 00 OF BREATH Active 08/14/2014 [facility] OTHER Diagnosis Active 2013-082014-05-09 Mem oria TENOSYNOVI 0-08 03:18:00 l TIS OF OTHER 00:00: Pfeifer HAND AND TENOSYNOVI 00 WRIST TIS OF HAND AND WRIST Active 05/09/2014 [facility] HAND EDEMA Diagnosis Active 2013-082014-05-09 Memoria 0-07 00:38:00 l HAND 00:00: Pfeifer EDEMA 00 Active 05/08/2014 [facility] HAND Diagnosis Active 2013-082014-05-17 Mem oria INFECTION 0-02 21:53:00 l HAND 00:00: Pfeifer INFECTION 00 Active 05/03/2014 [facility] ABDOMINAL Diagnosis Active 2014-02-08 Memoria PAIN 02-07 13:31:00 l 04:00: Lucien ABDOMINAL 00 PAIN Active 02/07/2014 [facility] SPITTING Diagnosis Active 2013-11-29 M emoria UP BLOOD 11-28 05:06:00 l SPITTING 00:00: Delvin n UP BLOOD 00 Active 11/28/2013 [facility] FLU LIKE Diagnosis Active 2012-082013-07-20 M emoria SYMPTOMS 2-17 01:36:00 l FLU LIKE 00:00: Delvin n SYMPTOMS 00 Active 07/18/2013 [facility] Congestive Problem Active 2018-02-11 M emoria heart 1- 13:48:01 l failure 00:00: Lucien (disorder) Congestive 00 heart failure (disorder) Active 08/02/2012 Problem 02/11/2018 [facility], [facility] Diabetes Problem Resolve 2018-02-11 Me moria mellitus d 13:48:01 l (disorder) Diabetes He rmann mellitus (disorder) Resolved Problem 02/11/2018 [facility], [facility] History of Problem Resolve 2018-02-11 Memoria - CVA d 13:48:01 l (context-d History Her west ependent of - CVA category) (context-d ependent category) Resolved Problem 02/11/2018 [facility], [facility] Spider Problem Resolve 2018-02-11 Mike una bite wound d 13:48:01 l (disorder) Spider Herm lexy bite wound (disorder) Resolved Problem 02/11/2018 [facility], [facility] Syncope Problem Resolve 2018-02-11 Mem oria (disorder) d 13:48:01 l Syncope Lucien (disorder) Resolved Problem 02/11/2018 [facility], [facility] Cerebrovas Problem Active 2018-02-11 M emoria cular 13:48:01 l accident Lucien (disorder) Cerebrovas cular accident (disorder) Active Problem 02/11/2018 [facility], [facility] Hyperchole Problem Active 2018-02-11 M emoria sterolemia 13:48:01 l (disorder) Delvin n Hyperchole sterolemia (disorder) Active Problem 02/11/2018 [facility], [facility] Obesity Problem Active 2018-02-11 Mike una (disorder) 13:48:01 l Obesity Pfeifer (disorder) Active Problem 02/11/2018 [facility], [facility], [facility] CHF NOS Diagnosis Active 2013-07-20 Me moria 01:36:00 l CHF NOS Pfeifer Active [facility] RENAL Diagnosis Active 2014-02-08 Mem oria FAILURE 13:31:00 l NOS RENAL Lucien FAILURE NOS Active [facility] BACTERIAL Diagnosis Active 2014-05-17 Memoria INFECTION 21:53:00 l NOS Lucien BACTERIAL INFECTION NOS Active [facility] SEPTICEMIA Diagnosis Active 2015-02-20 Memoria NOS 10:16:00 l Lucien SEPTICEMIA NOS Active [facility] LEFT SIDE Diagnosis Active 2016-11-26 Memoria - STROKE 21:56:00 l LEFT Pfeifer SIDE - STROKE Active [facility] CEREBRAL Diagnosis Active 2017-02-09 M emoria INFARCTION 12:12:00 l , CEREBRAL Delvin n UNSPECIFIE INFARCTION D , UNSPECIFIE D Active [facility] ALCOHOL Diagnosis Active 2016-08-07 Me moria 14:30:00 l ALCOHOL Lucien Active [facility] HEMORRHAGE Diagnosis Active 2017-02-09 Memoria , NOT 12:12:00 l ELSEWHERE Pfeifer CLASSIFIED HEMORRHAGE , NOT ELSEWHERE CLASSIFIED Active [facility] ANESTHESIA Diagnosis Active 2017-04-18 Memoria OF SKIN 19:02:00 l Pfeifer ANESTHESIA OF SKIN Active [facility] Headache Problem 2017-04-24 2017-04-24 Memoria 9-20 04:47:52 04:47:52 l Headache 05:00: Delvin n 00 04/21/2017 04/24/2017 [facility] Discharge Problem 2016-08-30 2016-08-30 Memoria Diagnosis: 08-27 04:32:05 04:32:05 l Seizure 06:00: Pfeifer Discharge 00 Diagnosis: Seizure 08/27/2016 08/30/2016 [facility] Discharge Problem 2016-03-10 2016-03-10 Memoria Diagnosis: 03-07 01:50:45 01:50:45 l Acute 05:00: Pfeifer viral Discharge 00 syndrome Diagnosis: Acute viral syndrome 6 03/10/2016 [facility] Discharge Problem 2016-03-10 2016-03-10 Memoria Diagnosis: 03-07 01:50:45 01:50:45 l Atypical 05:00: Pfeifer chest pain Discharge 00 Diagnosis: Atypical chest pain 03/07/2016 03/10/2016 [facility] Discharge Problem 2016-03-10 2016-03-10 Memoria Diagnosis: 8- 01:50:45 01:50:45 l Acute 05:00: Lucien hypokalemi Discharge 00 a Diagnosis: Acute hypokalemi a 03/07/2016 03/10/2016 [facility] Discharge Problem 2016-02-21 2016-02-21 Memoria Diagnosis: 02-17 04:59:11 04:59:11 l Syncope 05:00: Pfeifer Discharge 00 Diagnosis: Syncope 02/18/2016 02/21/2016 [facility] Discharge Problem 2016-02-21 2016-02-21 Memoria Diagnosis: 02-17 04:59:11 04:59:11 l Tonic 05:00: Lucien seizure Discharge 00 Diagnosis: Tonic seizure 02/18/2016 02/21/2016 [facility] Discharge Problem 2014-11-25 2014-11-25 Memoria Diagnosis: 4- 05:15:16 05:15:16 l Muscle 05:00: Pfeifer strain Discharge 00 Diagnosis: Muscle strain 11/22/2014 11/25/2014 [facility] Discharge Problem 2014-11-25 2014-11-25 Memoria Diagnosis: 4- 05:15:16 05:15:16 l Flank pain 05:00: Delvin n Discharge 00 Diagnosis: Flank pain 11/22/2014 11/25/2014 [facility] Discharge Problem 2013-12-02 2013-12-02 Memoria Diagnosis: 11-29 00:31:18 00:31:18 l Acute 05:00: Lucien bronchitis Discharge 00 Diagnosis: Acute bronchitis 11/29/2013 12/02/2013 [facility] Allergies, Adverse Reactions, Alerts This patient has no known allergies or adverse reactions. Social History Social Habit Start Date Stop Date Quantity Comments Source History of tobacco Cigarette Smoker [place] use [facility] Sex Assigned At [place] [facility] Cigarettes smoked 2016-09-20 2016-09-20 [place] current (pack per 00:00:00 00:00:00 Method) - Reported Alcohol intake 2016-09-20 2016-09-20 Current drinker [place] on 00:00:00 00:00:00 of alcohol [facility] (finding) Social History 2014-02-07 2014-02-07 [facility] monique 20:46:39 20:46:39 Smoking Status Start Date Stop Date Source Heavy Tobacco Smoker [facility] Current every day smoker 2016-09-20 00:00:00 Jose Archer Medications Ordered Filled Start Stop Current Ordering Indication Dosage Frequency Signature Comments Components Source Medication Medication Date Date Medication? Clinician (SIG) Name Name topiramate Yes See Memoria 25 MG Oral 9-18 Instructio l Tablet 15:10: ns, 1 tab Delvin n [Topamax] 00 PO BID for 7 days, then 2 tab PO BID thereafter , # 70 tab, 0 Refill(s), Pharmacy: [id number] clopidogrel Yes 75 mg = 1 M emoria 75 MG Oral 9-18 tab, PO, l Tablet 14:27: Daily, # Pfeifer [Plavix] 55 30 tab, 0 Refill(s), Pharmacy: [id number] NIFEdipine Yes 60 mg = 1 Me moria 60 mg oral 9-18 tab, PO, l tablet, 14:26: Daily, # Delvin n extended 00 30 tab, 0 release Refill(s), Pharmacy: [id number] carvedilol Yes 25 mg = 1 Me moria 25 mg oral 9-18 tab, PO, l tablet 14:26: BID, # 60 Delvin n 00 tab, 0 Refill(s), Pharmacy: [id number] atorvastati Yes 20 mg = 1 M emoria n 20 mg 9-18 tab, PO, l oral tablet 14:26: Bedtime, # Lucien 00 30 tab, 0 Refill(s), Pharmacy: [id number] Aspirin 325 Yes 325 mg = 1 Memoria MG Enteric 9-18 tab, PO, l Coated 14:26: Daily, # Pfeifer Tablet 00 100 tab, 0 Refill(s), Pharmacy: [id number] sacubitril Yes 1 tab, PO, M emoria 97 MG / 9-18 BID, # 60 l valsartan 14:26: tab, 0 Delvin n 103 MG Oral 00 Refill(s), Tablet Pharmacy: [id number] heparin No Notes: Memoria sodium, 9-18 porcine l porcine 05:00: heparin Pfeifer 2500 UNT/ML 00 Injectable Solution sacubitril No Notes: Memor ia 97 MG / 04-19 (Same as: l valsartan 02:06: Entresto) Her west 103 MG Oral 00 Avoid in Tablet patients with history of angioedema due to BECKY inhibitor or ARB therapy. Do not use concomitan tly or within 36 hours of BECKY inhibitors Saline No Notes: Memoria Flush 0.9% 04-19 (Same as: l 02:00: BD Pfeifer 00 Posiflush) atorvastati No Notes: Mike una n 04-19 (Same as: l 02:00: Lipitor) Levetiracet No Notes: Mike una am 750 MG 04-19 (Same l Oral Tablet 02:00: as:Keppra) Lucien [Keppra] 00 carvedilol No Notes: Memor ia 04-19 Give with l 02:00: food. Pfeifer 00 (Same As: Coreg) [place]'s Yes 1 tab, PO, M emoria wort oral 04-19 [id number], 0 l capsule 01:57: Refill(s) Adrienne nn Ibuprofen Yes 800 mg, Memor ia 04-19 PO, BID, 0 l 01:55: Refill(s) Pfeifer 00 gabapentin Yes 300 mg = 1 M emoria 300 MG Oral 04-19 cap, PO, l Capsule 01:55: TID, # 90 Adrienne nn cap, 1 Refill(s) Hydralazine No Notes: Mike una 04-18 (Same as: l 22:33: Apresoline ) Push over 5 minutes Zofran No Notes: Memoria 04-18 (Same as: l 22:33: Zofran) MEDICATION WASTE Product Size: 4 mg Product Wasted: ___ mg Tylenol No Notes: Do Memor ia 17 not exceed l 22:33: 4 gm/day. Lucien 00 (Same as: Tylenol) Tums No Notes: Memoria 04-18 (Same As: l 22:33: Tums) Calcium Carbonate 500 mg = 200 mg elemental calcium Dose = mg calcium carbonate ( mg elemental calcium) Saline No 10 ml, Memoria Flush 0.9% 04-18 Route: l 22:33: IVP, Drug Form: INJ, Dosing Weight 100, kg, PRN, PRN Line Flush, Start date: 04/18/17 17:33:00 CDT, Duration: 30 day, Stop date: 05/18/17 17:32:00 CDT Trazodone No Notes: Memori a 04-18 (Same As: l 22:33: Desyrel) clopidogrel No Notes: Mike una 04-18 (Same As: l 22:33: Plavix) Aspirin 325 No Notes: (Do Memoria MG Enteric 04-18 Not Crush) l Coated 22:33: Do not Pfeifer Tablet 00 crush or chew. Famotidine No Notes: Memor ia 04-18 (Same as: l 22:33: Pepcid) Docusate No Notes: Memoria 04-18 (Same as: l 22:33: Colace) (Do Not Crush) Aspirin No Notes: Memoria 04-18 Take with l 22:30: food. Metoclopram No Notes: Mike una ewa 04-18 (Same as: l 20:27: Reglan) Diphenhydra No Notes: Mike una mine 04-18 (Same as: l 20:27: Benadryl) Saline No Notes: Memoria Flush 0.9% 04-18 (Same as: l 20:27: BD Posiflush) carvedilol Yes 25mg Q.5D Take 25 mg [place] (COREG) 25 2-20 by mouth 2 Met hodi MG tablet 17:49: (two) st 30 times a day with meals. lisinopril Yes 20mg Q.5D Take 20 mg [place] (PRINIVIL,Z 2-20 by mouth 2 Me thodi ESTRIL) 20 17:49: (two) st mg tablet 30 times a day. sacubitril- Yes 1{tbl} Q.5D Take 1 Ho aminta valsartan 2-20 tablet by Dash gan (ENTRESTO) 17:49: mouth 2 st 49-51 mg 30 (two) tablet per times a tablet day. Tylenol No Notes: Do Memor ia 08-27 not exceed l 21:28: 4 gm/day. (Same as: Tylenol) Saline No Notes: Memoria Flush 0.9% 08-27 Same as: l 19:45: BD Posiflush Sterile Levetiracet 2015-08 No Notes: Mike una am 1000 MG - (Same l Oral Tablet 03:00: as:Keppra) Pfeifer [Keppra] 00 Omnipaque 2015-08 No Notes: Memori a 350 - (same l 15:00: as:Omnipaq ue 350). WASTE: F/P - Black; E - Municipal Trash Bin Levetiracet 2015-08 Yes 750 mg = 1 Memoria am 750 MG 2-28 tab, PO, l Oral Tablet 20:39: BID, # 60 H ermann [Keppra] 00 tab, 0 Refill(s) Aspirin 325 2015-08 Yes 325 mg = 1 Memoria MG Oral 2-28 tab, PO, l Tablet 20:37: Daily, # Pfeifer 00 50 tab, 0 Refill(s) Aspirin 2015-08 No Notes: Memoria 2-28 Take with l 15:00: food. Ambien 2015-08 No Notes: Memoria 2-28 (Same As: l 03:30: Ambien) Chlordiazep 2015-08 No 25 mg, 1 Me moria oxide 2-27 cap, l Hydrochlori 23:00: Route: PO, Lucien de 25 MG 00 Drug form: Oral CAP, QID, Capsule Dosing Weight 97.727, kg, Start date: 07/28/16 17:00:00 BUCKLE SORTER, Duration: 30 day, Stop date: 08/27/16 13:00:00 BU[place]ORTER Keppra 2015-08 No 1,000 mg, Memori a 2-27 100 mL, l 20:54: Route: Pfeifer 00 IVPB, Drug form: INJ, Q12H, Dosing Weight 97.727, kg, Priority: NOW, Start date: 07/28/16 14:54:00 BUCKLE SORTER, Duration: 30 day, Stop date: 08/27/16 9:00:00 BU[place] S[place]TER Levetiracet 2015-08 No 1,000 mg, M emoria am 1000 MG 2 Route: PO, l Oral Tablet 20:53: Drug form: Pfeifer [Keppra] 00 TAB, Q12H, Dosing Weight 97.727, kg, Priority: NOW, Start date: 07/28/16 14:53:00 BUCKLE SORTER, Duration: 30 day, Stop date: 08/27/16 9:00:00 BU[place] S[place]TER Benzocaine 2015-08 No Notes: Memor ia 15 MG / - Same as: l Menthol 3.6 16:06: Cepacol Her west MG Lozenge 00 [Cepacol Sore Throat Pain Relief 15/3.6] tramadol 2015-08 No Notes: Not Mem oria hydrochlori - to exceed l de 50 MG 15:45: 400mg/day. Her west Oral Tablet 00 (Same As: Ultram) sacubitril 2015-08 No 1 tab, Memor ia 49 MG / 09-28 Route: PO, l valsartan 15:00: Drug Form: Keshawn rmann 51 MG Oral 00 TAB, Tablet Dosing [Entresto] Weight 97.727, kg, BID, Start date: 07/28/16 9:00:00 BUCKLE SORTER, Duration: 30 day, Stop date: 08/26/16 17:00:00 BU[place] Ativan 2015-08 No Notes: Memoria 2-27 (Same as: l 10:38: Ativan) Saline 2015-08 No Notes: Memoria Flush 0.9% - Same as: l 03:00: BD Posiflush Sterile Lipitor 2015-08 No Notes: Memoria 2-27 (Same As: l 03:00: Lipitor) sacubitril- 2015-08 No Notes: Mike una valsartan 2- (Same as: l 03:00: Entresto) Pfeifer 00 Avoid in patients with history of angioedema due to BECKY inhibitor or ARB therapy. Do not use concomitan tly or within 36 hours of BECKY inhibitors Clonidine 2015-08 No Notes: Memori a Hydrochlori - (Same As: l de 0.2 MG 02:28: Catapres) Her west Oral Tablet 00 Tylenol 2015-08 No Notes: Do Memor ia 2-27 not exceed l 02:25: 4 gm/day. Lucien 00 (Same as: Tylenol) Saline 2015-08 No Notes: Memoria Flush 0.9% - Same as: l 01:29: BD Lucien Posiflush Sterile 24 HR 2015-08 No Notes: Memoria Nifedipine - (Same as: l 60 MG 00:15: Adalat CC, Delvin n Extended 00 Procardia Release XL) Give Tablet on empty stomach. Take 1 hour before or 2 hours after meal; "Avoid grapefruit and grapefruit juice". Do not crush carvedilol 2015-08 No Notes: Memor ia 2- Give with l 00:14: food. Lucien 00 (Same As: Coreg) Keppra 2015-08 No Notes: Memoria 2- Same as l 23:00: Keppra Mix with 100 mL NS, LR or D5W MEDICATION WASTE Product Size: 500 mg Product Wasted: ___ mg Ativan 2015-08 No Notes: Memoria 2-26 (Same as: l 22:22: Ativan) Pfeifer 00 pneumococca 2015-08 No Notes: Mike una l capsular - (Same as: l polysacchar 20:55: Pneumovax H ermann ewa type 1 38 23) vaccine / Refrigerat pneumococca e l capsular polysacchar ewa type 10A vaccine / pneumococca l capsular polysacchar ewa type 11A vaccine / pneumococca l capsular polysacchar ewa type 12F vaccine / pneumococca l capsular polysacchar influenza 2015-08 No Notes: Memori a virus 2-26 (Same as: l vaccine, 20:54: Fluzone Delvin n inactivated 37 Quadrivale nt, Fluarix Quadrivale nt) For 3 years of age and older (0.5 mL IM) Shake well before use sacubitril 2015-08 Yes 1 tab, PO, M emoria 49 MG / 2-26 BID l valsartan 20:48: Lucien 51 MG Oral 00 Tablet [Entresto] Aspirin 2015-08 No Notes: Memoria 09-27 Take with l 19:12: food. Lucien 00 Acetaminoph 2015-08 No Notes: Mike una en 325 MG / 09-27 (Same as: l Hydrocodone 19:12: [place] Adrienne nn Bitartrate 00 325/5) Do 5 MG Oral not exceed Tablet 4gm/day of [[place] acetaminop 5/325] hen. Saline 2015-08 No Notes: Memoria Flush 0.9% 09-27 Same as: l 17:14: BD Pfeifer 00 Posiflush Sterile Potassium Yes 20 mEq = Mike una Chloride 8-06 15 mL, PO, l 1.33 MEQ/ML 22:12: BID, 1.33 H ermann Oral 00 mEq/ml, # Solution 150 mL, 0 Refill(s) potassium Yes Notes: Memori a chloride 8-06 Infuse at l 21:00: a rate of Lucien 00 10 mEq/hr. (Same as: KCL) sodium No 1,000 mL, Memori a chloride 8-06 Rate: l 0.9% 1000 20:27: 1,000 Pfeifer ml INJ 00 ml/hr, 1,000 mL Infuse over: 1 hr, Route: IV, Dosing Weight 94.545 kg, Total Volume: 1,000, Priority: STAT, Start date: 03/07/16 15:27:00 CDT, Duration: 1 doses or times, Stop date: 03/07/16 16:26:00 CDT atorvastati Yes 20 mg = 1 M emoria n 20 MG 8-06 tab, PO, l Oral Tablet 20:13: Daily Adrienne nn [Lipitor] 00 24 HR Yes 60 mg = 1 Memoria Nifedipine 8-06 tab, PO, l 60 MG 20:13: Daily Lucien Extended 00 Release Tablet lisinopril Yes 20 mg = 1 Me moria 20 mg oral 8-06 tab, PO, l tablet 20:13: BID Lucien 00 carvedilol Yes 25 mg = 1 Me moria 25 mg oral 8-06 tab, PO, l tablet 20:12: BID Pfeifer 00 Potassium No 40 mEq, 15 Me moria Chloride 8-06 mL, Route: l 1.33 MEQ/ML 20:12: PO, Drug He rmann Oral 00 form: LIQ, Solution ONCE, Dosing Weight 94.545, kg, Priority: STAT, Start date: 03/07/16 15:12:00 CDT, Stop date: 03/07/16 15:12:00 CDT GI cocktail No Notes: Mike una 03-07 G.I. l 18:44: Cocktail = antacid with simethicon e 22.5 mL - lidocaine viscous 7.5 mL Tylenol No Notes: Do Memor ia 03-07 not exceed l 18:43: 4 gm/day. Pfeifer 00 (Same as: Tylenol) Sodium No 1,000 mL, Memori a Chloride 03-07 1000 l 0.154 18:04: ml/hr, Lucien MEQ/ML 00 Infuse Injectable Over: 1 Solution hr, Route: IV, 1,000, Drug form: INJ, ONCE, Priority: STAT, Dosing Weight 94.545 kg, Start date: 03/07/16 13:04:00 CDT, Duration: 1 doses or times, Stop date: 03/07/16 13:04:00 CDT Saline No Notes: Memoria Flush 0.9% 03-07 Same as: l 18:04: BD Posiflush Sterile Omnipaque No Notes: Memori a 350 02-17 (same l 21:00: as:Omnipaq ue 350). WASTE: F/P - Black; E - Municipal Trash Bin Hydralazine No Notes: Mike una 19 (Same as: l 20:08: Apresoline ) Push over 5 minutes Acetaminoph No Notes: Do M emoria en 02-17 not exceed l 17:26: 4 gm/day. Lucien 00 (Same as: Tylenol) Labetalol No 20 mg, 4 Mike una 7-19 mL, Route: l 17:26: IVP, Drug form: INJ, ONCE, Dosing Weight 81.818, kg, Priority: STAT, Start date: 02/18/16 12:26:00 CDT, Stop date: 02/18/16 12:26:00 CDT Saline No Notes: Memoria Flush 0.9% 02-17 Same as: l 16:44: BD Pfeifer Posiflush Sterile Naproxen Yes 550 mg = 1 Mem oria sodium 550 4-23 tab, PO, l MG Oral 17:51: BID, PRN Delvin n Tablet 00 Pain, X 10 [Anaprox] day, # 20 tab, 0 Refill(s) Acetaminoph No 1 - 2 tab, Memoria en 300 MG / 4-23 PO, Q4H, l Codeine 17:51: PRN Pain, Adrienne nn Phosphate 00 X 2 day, # 60 MG Oral 12 tab, 0 Tablet Refill(s) [Tylenol with Codeine #4] Cyclobenzap Yes 10 mg = 1 M emoria rine 4-23 tab, PO, l hydrochlori 17:51: TID, PRN He rmlexy de 10 MG 00 for Oral Tablet spasm/back [Flexeril] pain, X 5 day, # 15 tab, 0 Refill(s) carvedilol Yes PO, 0 Memori a 4-23 Refill(s) l 17:20: Lisinopril 0 Yes PO, Daily, M emoria 4-23 0 l 17:20: Refill(s) Metformin Yes PO, 0 Memoria -23 Refill(s) l 17:20: Simvastatin 0 Yes PO, Memori a -23 Bedtime, 0 l 17:20: Refill(s) Hydrochloro 0 Yes PO, Daily, Memoria thiazide 23 0 l 17:19: Refill(s) Morphine No 4 mg, Memoria 4-23 Route: l 16:18: IVP, ONCE, Dosing Weight 93.835, kg, Priority: STAT, Start date: 11/22/14 11:18:00, Stop date: 11/22/14 11:18:00 Ketorolac No 30 mg, Memori a 4-23 Route: l 16:18: IVP, ONCE, Dosing Weight 93.835, kg, Priority: STAT, Start date: 11/22/14 11:18:00, Stop date: 11/22/14 11:18:00 Ondansetron No 4 mg, Memor ia 11-22 Route: l 16:18: IVP, ONCE, Dosing Weight 93.835, kg, Priority: STAT, Start date: 11/22/14 11:18:00, Stop date: 11/22/14 11:18:00 Saline No Notes: Memoria Flush 0.9% 11-22 (Same as: l 16:18: BD Posiflush) Sodium No 1,000 mL, Memori a Chloride 11-22 Infuse l 0.154 16:18: Over: 1 Lucien MEQ/ML 00 hr, Route: Injectable IV, ONCE, Solution Priority: STAT, Dosing Weight 93.835 kg, Start date: 11/22/14 11:18:00, Duration: 1 doses or times, Stop date: 11/22/14 11:18:00 tramadol Yes 50 mg = 1 Mike una hydrochlori 1-17 tab, PO, l de 50 MG 00:22: Q6H, # 30 Herm lexy Oral Tablet 04 tab, 0 Refill(s) lisinopril Yes 10 mg = 1 Me moria 10 mg oral 1-17 tab, PO, l tablet 00:21: Daily, # Pfeifer 33 60 tab, 0 Refill(s) carvedilol Yes 25 mg = 1 Me moria 25 mg oral 1-17 tab, PO, l tablet 00:21: Q12H, # 60 Adrienne nn 19 tab, 0 Refill(s) Aspirin 81 Yes 81 mg = 1 Me moria MG Enteric 1-17 tab, PO, l Coated 00:21: Daily, # Lucien Tablet 17 30 tab, 0 Refill(s) Hydrochloro Yes 25 mg = 1 M emoria thiazide 25 1-17 tab, PO, l MG Oral 00:20: Daily, # Delvin n Tablet 57 30 tab, 0 Refill(s) Alprazolam Yes 0.5 mg = 1 M emoria 0.5 MG Oral 1-17 tab, PO, l Tablet 00:20: TID, Lucien [Xanax] 00 Anxiety, # 24 tab, 0 Refill(s) Ciprofloxac Yes 500 mg = 1 Memoria in 500 MG 1-17 tab, PO, l Oral Tablet 00:20: Q12H, # 14 Pfeifer [Cipro] 00 tab, 0 Refill(s) Albuterol Yes 1 puff, Memor ia 0.09 1-17 INHALATION l MG/ACTUAT 00:20: , QIDDelvin Inhalant 00 wheezing, Solution # 1 ea, 0 Refill(s) {21 Yes Special Memoria (Methylpred 1-17 Instructio l nisolone 4 00:20: ns: Take Her west MG Oral 00 with or Tablet without [Medrol]) } food Pack [Medrol Dosepak] simvastatin Yes 40 mg =, Me moria 40 mg oral 1-17 PO, l tablet 00:20: Bedtime, # Adrienne nn 00 30 tab, 0 Refill(s) Metformin Yes 500 mg = 1 Me moria hydrochlori 1-17 tab, PO, l de 500 MG 00:20: BID, # 60 Her west Oral Tablet 00 tab, 0 Refill(s) vancomycin No 2001 mg: Me moria + Dextrose 1-16 infuse l 5% in Water 12:00: over 2.5 He rmann IV 250 mL 00 hours vancomycin No 2001 mg: Me moria + Dextrose 1-16 infuse l 5% in Water 00:00: over 2.5 He rmann IV 250 mL 00 hours Vancomycin No Special Mike una 1-15 Instructio l 22:33: ns: Pharmacy to dose Zosyn No Notes: Memoria 1-15 (Same as: l 18:00: Zosyn) Dosing based on Piperacill in component carvedilol No Notes: Memor ia 1-15 Give with l 03:00: food. (Same As: Coreg) multivitami No Notes: Mike una n 1-15 Same as l 03:00: Cerefolin Lucien 00 NAC Non-formul sun item Levaquin No Notes: Memoria 1-15 (Same l 01:00: as:Levaqui Pfeifer n) Albuterol No Notes: Memori a 0.833 MG/ML -15 (Same as: l / 01:00: Duoneb) Lucien Ipratropium 00 [place] 0.167 MG/ML Inhalant Solution Vasotec No Notes: Memoria 1-15 (Same as: l 00:42: Vasotec-IV Lucien ) Acetylcyste No 600 mg, Mem oria ine 200 1-15 Route: PO, l MG/ML 00:35: Drug form: Delvin n Inhalant 00 SOLN, BID, Solution Dosing Weight 96.96, kg, Priority: STAT, Start date: 08/15/14 18:35:00, Duration: 2 day, Stop date: 08/17/14 17:00:00 Lopressor No Notes: Memori a 1-15 (Same as: l 00:34: Lopressor) Lucien Push over 2 minutes Clonidine No Notes: Memori a Hydrochlori 1-15 (Same As: l de 0.1 MG 00:34: Catapres) Her west Oral Tablet 00 Hydralazine No Notes: Mike una 1-15 (Same as: l 00:34: Apresoline Pfeifer 00 ) Push over 5 minutes Ativan No Notes: Memoria 1-14 (Same as: l 22:16: Ativan) Lucien 00 Morphine No Notes: Memoria 1-14 (Same l 22:15: as:MORPhin Lucien 00 e Sulfate) Ativan No Notes: Memoria 1-14 (Same as: l 20:15: Ativan) Lucien 00 Aspirin 81 No Notes: Do Me moria MG Enteric 1-14 not crush l Coated 15:00: or chew. Lucien Tablet 00 (Same As: Ecotrin) Simvastatin No Notes: Mike una 1-14 (Same as: l 03:00: Zocor) Lucien 00 Coreg No Notes: Memoria 1-14 Give with l 03:00: food. Pfeifer 00 (Same As: Coreg) Acetaminoph No Notes: Max Memoria en 08-15 acetaminop l 01:53: hen = 4000 Pfeifer 00 mg/day (4 gm/day). (Same as: Tylenol) tramadol No Notes: Not Mem oria hydrochlori 08-15 to exceed l de 50 MG 01:53: 400mg/day. Her west Oral Tablet 00 (Same As: Ultram) Insulin, No Notes: Memoria Aspart, 08-15 Roll in l Human 01:28: palms of Lucien 00 hands gently; Do not shake vigorously . (Same as: NovoLOG) "single patient use only" Stable for 28 days at room temperatur e. Expires in days from ____Date Dextrose No 12.5 gm, Memor ia 50% Syringe 08-15 25 mL, l 01:28: Route: IVP, Drug Form: INJ, Dosing Weight 96.96, kg, PRN, PRN Blood Glucose Results, Start date: 08/14/14 19:28:00, Duration: 30 day, Stop date: 09/13/14 19:27:00 Glucagon No 1 mg, Memoria 08-15 Route: IM, l 01:28: Drug form: PDR/INJ, PRN, Dosing Weight 96.96, kg, PRN Blood Glucose Results, Start date: 08/14/14 19:28:00, Duration: 30 day, Stop date: 09/13/14 19:27:00 Magnesium No Notes: Memori a Oxide 08-14 (Same as: l 17:30: Mag-Ox 400) Magnesium oxide 631od=239w g elemental magnesium Dose=____m g magnesium oxide (___mg elemental magnesium) Lisinopril No Notes: Memor ia 08-14 (Same as: l 17:30: Prinivil, Zestril) carvedilol No Notes: Memor ia 08-14 Give with l 17:30: food. (Same As: Coreg) Hydralazine No Notes: Mike una 1-13 (Same as: l 17:04: Apresoline ) Push over 5 minutes Tamiflu No Notes: Memoria 1-13 Take with l 17:00: food. Same Lucien 00 as: Tamiflu) Enoxaparin No Notes: Memor ia 1-13 (Same as: l 17:00: Lovenox) Albuterol No Notes: Memori a 0.833 MG/ML - (Same as: l / 16:53: Duoneb) Ipratropium 00 [place] 0.167 MG/ML Inhalant Solution Ondansetron No Notes: Mike una 1-13 (Same as: l 16:53: Zofran) Acetaminoph No Notes: Do M emoria en 08-14 not exceed l 16:53: 4 gm/day. (Same as: Tylenol) Guaifenesin No Notes: Mike una 1-13 (Same as: l 16:53: Robitussin ) Lasix No Notes: Memoria 1-13 (Same as: l 14:27: Lasix) Zithromax No Notes: Memori a 1-13 Same as: l 14:27: Zithromax 00 Rocephin No Notes: Memoria 1-13 (Same As: l 14:27: Rocephin). Use with 100ml NS mini-bag PLUS and infuse over 30 min Labetalol No Notes: Memori a 1-13 (Same as: l 13:45: Normodyne, Lucien 00 Trandate) Push over 2 minutes Give bolus over 2-3 minutes. 24 HR No Notes: Memoria Nitroglycer 1-13 Apply only l in 0.4 13:45: once for Pfeifer MG/HR 00 up to 12 Transdermal hours in a Patch 24 hour period (12 hours on and 12 hours off.) (Same as:Nitro-D ur,Deponit ,Transderm Nitro) For topical use only. "Remove old patch before applicatio n of new patch" Albuterol 1 No Notes: SEE Memoria MG/ML 1-13 RT l Inhalant 13:45: DOCUMENTAT Her west Solution 00 ION Saline No Notes: Memoria Flush 0.9% 08-14 (Same as: l 13:28: BD Lucien 00 Posiflush) Sodium No 1,000 mL, Memori a Chloride 08-14 1000 l 0.154 13:28: ml/hr, Pfeifer MEQ/ML 00 Infuse Injectable Over: 1 Solution hr, Route: IV, 1,000, Drug form: INJ, ONCE, Priority: STAT, Dosing Weight 113.636 kg, Start date: 08/14/14 7:28:00, Duration: 1 doses or times, Stop date: 08/14/14 7:28:00 Ibuprofen No Notes: Memori a 08-14 (Same as: l 13:28: Motrin) Pfeifer "Do Not Crush" Give with food. Acetaminoph No Notes: Do M emoria en 08-14 not exceed l 13:28: 4 gm/day. Pfeifer 00 (Same as: Tylenol) Acetaminoph 2013-08 Yes 1 tab, PO, Memoria en 325 MG / 0-12 Q4H, Pain l Hydrocodone 17:19: Score 4-6, Lucien Bitartrate 00 # 42 tab, 10 MG Oral 0 Tablet Refill(s), other Hydrochloro 2013-08 Yes 25 mg = 1 M emoria thiazide 25 0-12 tab, PO, l MG Oral 17:19: Daily, # Delvin n Tablet 00 14 tab, 0 Refill(s) lisinopril 2013-08 Yes 10 mg = 1 Me moria 10 mg oral 0-12 tab, PO, l tablet 17:19: Daily, # Pfeifer 00 14 tab, 0 Refill(s) tramadol 2013-08 Yes 50 mg = 1 Mike una hydrochlori 0-12 tab, PO, l de 50 MG 17:19: Q6H, # 30 Herm lexy Oral Tablet 00 tab, 0 Refill(s) Sulfamethox 2013-08 Yes 1 tab, PO, Memoria azole 800 0-12 [id number], # l MG / 17:19: 14 tab, 0 Pfeifer Trimethopri 00 Refill(s) m 160 MG Oral Tablet Docusate 2013-08 Yes 1 tab, PO, Mem oria Sodium 50 0-12 BID, # 30 l MG / 17:19: tab, 0 Pfeifer sennosides, 00 Refill(s) MCFP 8.6 MG Oral Tablet carvedilol 2013-08 Yes 25 mg = 1 Me moria 25 mg oral 0-12 tab, PO, l tablet 17:19: Q12H, # 30 Adrienne nn 00 tab, 0 Refill(s) Aspirin 81 2013-08 Yes 81 mg = 1 Me moria MG Enteric 0-12 tab, PO, l Coated 17:19: Daily, # Lucien Tablet 00 30 tab, 0 Refill(s) Amoxicillin 2013-08 Yes 1 tab, PO, Memoria 875 MG / 0-12 Q12H, # 14 l Clavulanate 17:19: tab, 0 Herm lexy 125 MG Oral 00 Refill(s) Tablet [Augmentin 875-mg] carvedilol 2013-08 No Notes: Memor ia 0-12 Give with l 02:00: food. Lucien 00 (Same As: Coreg) Docusate 2013-08 No Notes: Memoria Sodium 50 0-11 (Same as l MG / 14:00: Senokot-S) Pfeifer sennosides, 00 Equiv. to MCFP 8.6 MG Lorie-[place] Oral Tablet e. Fluzone 2013-08 No Notes: Memoria Quadrivalen 0-11 (Same as: l t 14:00: Fluzone Her west 00 Quadriv[place] nt) Lisinopril 2013-08 No Notes: Memor ia 0-11 (Same as: l 14:00: Prinivil, Lucien 00 Zestril) Hydralazine 2013-08 No Notes: Mike una Hydrochlori 0-11 (Same as: l de 25 MG 12:30: Apresoline Her west Oral Tablet 00 ) May interfere w/enteral feedings Take With Food. tramadol 2013-08 No Notes: Not Mem oria hydrochlori 0-11 to exceed l de 50 MG 05:00: 400mg/day. Her west Oral Tablet 00 (Same As: Ultram) carvedilol 2013-08 No Notes: Memor ia 0-11 Give with l 02:00: food. Pfeifer 00 (Same As: Coreg) Amoxicillin 2013-08 No Notes: Mike una 875 MG / 0-11 With food. l Clavulanate 02:00: (Same as: H ermann 125 MG Oral 00 Augmentin Tablet 875) [Augmentin 875-mg] Bactrim DS 2013-08 No Notes: One M emoria 0-11 DS tablet l 00:00: = Pfeifer 00 trimethopr im 160mg + sulfametho xazole 800 mg Dose based on trimethopr im component On empty stomach with a glass of water. 1 hr before meals (Same As: Bactrim DS, Septra DS) heparin, 2013-08 No Notes: Memoria porcine 0-10 porcine l 21:00: heparin Pfeifer 00 Hydrochloro 2013-08 No Notes: Mike una thiazide 0-10 (Same as: l 18:47: Hydrodiuri Pfeifer 00 l) With food. Lisinopril 2013-08 No Notes: Memor ia 0-10 (Same as: l 18:46: Prinivil, Pfeifer 00 Zestril) Coreg 2013-08 No Notes: Memoria 0-10 Give with l 18:46: food. Pfeifer (Same As: Coreg) Coreg 2013-08 No Notes: Memoria 0-10 Give with l 16:24: food. Lucien 00 (Same As: Coreg) Lisinopril 2013-08 No Notes: Memor ia 0-10 (Same as: l 16:24: Prinivil, Lucien 00 Zestril) vancomycin 2013-08 No 2000 mg: Me moria + Sodium 0-10 infuse l Chloride 15:00: over 2.5 Adrienne nn 0.9% IV 500 00 hours mL Vancomycin FOR IV SET ONLY 24 HR 2013-08 No Notes: Memoria Nitroglycer 0-10 Apply only l in 0.2 14:00: once for Lucien MG/HR 00 up to 12 Transdermal hours in a Patch 24 hour period (12 hours on and 12 hours off.) (Same as:Nitro-D ur,Deponit ,Transderm Nitro) For topical use only. "Remove old patch before applicatio n of new patch" atorvastati 2013-08 No Notes: Mike una n 0-10 (Same as: l 11:18: Lipitor) Lucien 00 Metoprolol 2013-08 No Notes: Memor ia 0-10 (Same as: l 11:18: Lopressor) Lucien 00 Push over 2 minutes aspirin 2013-08 No Notes: Memoria 0-10 Take with l 11:17: food. Pfeifer 00 Labetalol 2013-08 No 20 mg, Memori a 0-10 Route: l 10:52: IVP, Drug form: INJ, ONCE, Dosing Weight 97.727, kg, Priority: STAT, Start date: 05/11/14 5:52:00, Stop date: 05/11/14 5:52:00 Hydralazine 2013-08 No Notes: Mike una 0-10 (Same as: l 09:59: Apresoline ) Push over 5 minutes Hydralazine 2013-08 No Notes: Mike una 0-10 (Same as: l 00:38: Apresoline ) Push over 5 minutes Labetalol 2013-08 No 10 mg, 2 Mike una 0-09 mL, Route: l 22:35: IVP, Drug form: INJ, Q5Min, Dosing Weight 97.727, kg, PRN Elevated BP, Start date: 05/10/14 17:35:00, Duration: 5 doses or times, Stop date: 05/11/14 0:00:00 Fentanyl 2013-08 No Notes: Memoria 0-09 (Same as: l 22:35: Sublimaze) Lucien 00 Preservat raoul free. Hydromorpho 2013-08 No Notes: Mike una ne 0-09 Same as: l 22:35: Dilaudid Promethazin 2013-08 No Notes: Do M emoria e 0-09 not give l 22:35: IV push. Lucien 00 (Same as: Phenergan) Ondansetron 2013-08 No Notes: Mike una 0-09 (Same as: l 22:35: Zofran) Pfeifer 00 Lisinopril 2013-08 No Notes: Memor ia 0-09 (Same as: l 05:00: Prinivil, Pfeifer 00 Zestril) vancomycin 2013-08 No 2001 mg: Me moria + Sodium 0-08 infuse l Chloride 17:00: over 2.5 Adrienne nn 0.9% IV 250 00 hours mL Vancomycin FOR IV SET ONLY vancomycin 2013-08 No 2000 mg: Me moria + Sodium 0-08 infuse l Chloride 15:00: over 2.5 Adrienne nn 0.9% IV 500 00 hours mL Vancomycin FOR IV SET ONLY aspirin 2013-08 No Notes: Do Memor ia 0-08 not crush l 14:00: or chew. Pfeifer 00 (Same As: Ecotrin) carvedilol 2013-08 No Notes: Memor ia 0-08 Give with l 14:00: food. Lucien (Same As: Coreg) Influenza 2013-08 No Notes: Memori a Virus 0-08 (Same as: l Vaccine, 14:00: Fluzone Delvin n Inactivated 00 Quadrivale A-[place]- nt) (H3N2)-like virus (A-[place] [facility] [place] X-175C) strain / Influenza Virus Vaccine, Inactivated A-[place]- , IVR-148 (H1N1) strain / Influenza Virus Vaccine, Inactivated , B---lik Docusate 2013-08 No Notes: Memoria 0-08 (Same as: l 14:00: Colace) Pfeifer 00 Ceftriaxone 2013-08 No Notes: Mike una 0-08 (Same As: l 12:00: Rocephin). Lucien 00 Use with 100ml NS mini-bag PLUS and infuse over 30 min Zofran 2013-08 No Notes: Memoria 0-08 (Same as: l 11:40: Zofran) Pfeifer Vancomycin 2013-08 No 2000 mg: Me moria 0-08 infuse l 11:39: over 2.5 Lucien 00 hours Potassium 2013-08 No Notes: Memori a Chloride 0-08 (Same as: l 11:36: KCL) Lucien Infuse no faster than 10 mEq/hr if given peripheral ly. Insulin, 2013-08 No Notes: Memoria Aspart, 0-08 Roll in l Human 11:36: palms of Lucien 00 hands gently; Do not shake vigorously . (Same as: NovoLOG) "single patient use only" Stable for 28 days at room temperatur e. Expires in days from ____Date Dextrose 2013-08 No 25 gm, 50 Mike una 50% Syringe 0-08 mL, Route: l 11:36: IVP, Drug Pfeifer 00 Form: INJ, Dosing Weight 97.727, kg, PRN, PRN Blood Glucose Results, Start date: 05/09/14 6:36:00, Duration: 30 day, Stop date: 06/08/14 5:35:00 Glucagon 2013-08 No 1 mg, Memoria 0-08 Route: IM, l 11:36: Drug form: Lucien 00 PDR/INJ, PRN, Dosing Weight 97.727, kg, PRN Blood Glucose Results, Start date: 05/09/14 6:36:00, Duration: 30 day, Stop date: 06/08/14 5:35:00 Saline 2013-08 No Notes: Memoria Flush 0.9% 0-08 (Same as: l 11:35: BD Pfeifer 00 Posiflush) Ondansetron 2013-08 No Notes: Mike una 0-08 (Same as: l 11:35: Zofran) Lucien 00 Acetaminoph 2013-08 No Notes: Do M emoria en 0-08 not exceed l 11:35: 4 gm/day. Pfeifer 00 (Same as: Tylenol) Acetaminoph 2013-08 No Notes: Mike una en 325 MG / 0-08 (Same as: l Hydrocodone 11:35: [place] Adrienne nn Bitartrate 00 325/5) Do 5 MG Oral not exceed Tablet 4gm/day of acetaminop hen. Morphine 2013-08 No Notes: Memoria 0-08 (Same l 11:35: as:MORPhin Lucien 00 e Sulfate) Acetaminoph 2013-08 No Notes: Do M emoria en 325 MG / 0-08 not exceed l Hydrocodone 11:35: 4gm/day of Pfeifer Bitartrate 00 acetaminop 10 MG Oral hen. Tablet (Same as: [place] 325/10) Metformin 2013-08 Yes 500 mg = 1 Me moria hydrochlori 0-08 tab, PO, l de 500 MG 10:54: BID, # 30 Her west Oral Tablet 00 tab, 0 Refill(s) Dilaudid 2013-08 No 1 mg, Memoria 0-08 Route: l 08:14: IVP, ONCE, Pfeifer 00 Dosing Weight 113.636, kg, Priority: STAT, Start date: 05/09/14 3:14:00, Stop date: 05/09/14 3:14:00 Ceftriaxone 2013-08 No Notes: Mike una 0-08 (Same As: l 08:08: Rocephin). Pfeifer 00 Use with 100ml NS mini-bag PLUS and infuse over 30 min Doxycycline 2013-08 No Notes: NO M emoria 0-08 MILK/ANTAC l 08:06: IDS/IRON Pfeifer 00 Take 1 hour before or 2 hours after dairy products NS 1,000 mL 2013-08 No Special Mem oria 0-08 Instructio l 05:12: ns: Bolus Pfeifer Dose Ondansetron 2013-08 No Notes: Mike una 0-08 (Same as: l 04:58: Zofran) Lucien Dilaudid 2013-08 No Notes: Memoria 0-08 Same as: l 04:58: Dilaudid Pfeifer 00 Vancomycin 2013-08 No 2001 mg: Me moria 0-08 infuse l 04:57: over 2.5 Pfeifer 00 hours Saline 2013-08 No Notes: Memoria Flush 0.9% 0-08 (Same as: l 04:57: BD Pfeifer 00 Posiflush) Lisinopril No Notes: Memor ia 7-12 (Same as: l 14:00: Prinivil, Pfeifer 00 Zestril) Coreg No Notes: Memoria 7-12 Give with l 02:00: food. Pfeifer 00 (Same As: Coreg) lisinopril Yes 5 mg = 1 Mem oria 5 mg oral 7-11 tab, PO, l tablet 18:18: Daily, # Pfeifer 00 30 tab, 0 Refill(s) carvedilol Yes 6.25 mg = Me moria 12.5 mg 7-11 0.5 tab, l oral tablet 18:18: PO, BID, # Pfeifer 00 15 tab, 0 Refill(s) Hydrochloro Yes 25 mg = 1 M emoria thiazide 25 7-11 tab, PO, l MG Oral 18:18: Daily, for Herm lexy Tablet 00 edema, # 30 tab, 0 Refill(s) Simvastatin No Notes: Mike una 11 (Same as: l 02:00: Zocor) Pfeifer 00 Coreg No Notes: Memoria 7 Give with l 16:00: food. (Same As: Coreg) Hydrochloro No 1 tab, PO, Memoria thiazide 710 Bedtime, 0 l 12.5 MG / 05:35: Refill(s) Her jenna Lisinopril 00 20 MG Oral Tablet carvedilol No 12.5 mg = Me moria 12.5 MG 710 1 tab, PO, l Oral Tablet 05:35: BID, # 60 H ermann [Coreg] 00 tab, 0 Refill(s) Metformin No 500 mg, Memor ia 7-10 PO, l 05:35: Dinner, 0 Pfeifer 00 Refill(s) Simvastatin Yes 40 mg = 1 M emoria 7-10 tab, PO, l 05:35: Bedtime, # Pfeifer 00 30 tab, 0 Refill(s) NS 1,000 mL No 1,000 mL, M emoria 710 Rate: 40 l 03:24: ml/hr, Infuse over: 25 hr, Route: IV, Dosing Weight 92.045 kg, Total Volume: 1,000, Start date: 02/07/14 22:24:00, Duration: 30 day, Stop date: 03/09/14 22:23:00 Morphine No 2 mg, Memoria 02-07 Route: l 18:00: IVP, ONCE, Dosing Weight 96.364, kg, Start date: 02/07/14 13:00:00, Stop date: 02/07/14 13:00:00 Acetaminoph No Notes: Max Memoria en 02-07 acetaminop l 17:54: hen = Pfeifer 00 4000mg/day (4 gm/day). (Same as: Tylenol) Ondansetron No Notes: Mike una 02-07 (Same as: l 17:54: Zofran) Docusate No Notes: Memoria 02-07 (Same as: l 17:54: Colace) Pfeifer 00 (Do Not Crush) Omnipaque 2013-0 No 50 mL, Memori a 240 02-07 Route: PO, l 14:41: Dosing Pfeifer 00 Weight 96.364, kg, ONCE, Start date: 02/07/14 9:41:00, Stop date: 02/07/14 9:41:00 Sodium 2014-0 No 1,000 mL, Memori a Chloride 02-07 999 ml/hr, l 0.154 14:27: Infuse Lucien MEQ/ML 00 Over: 1 Injectable hr, Route: Solution IV, ONCE, Priority: STAT, Dosing Weight 96.364 kg, Start date: 02/07/14 9:27:00, Duration: 1 doses or times, Stop date: 02/07/14 9:27:00 Sodium 2013-0 No 500 mL, Memoria Chloride 02-07 500 ml/hr, l 0.154 12:37: Infuse Pfeifer MEQ/ML 00 Over: 1 Injectable hr, Route: Solution IV, ONCE, Priority: STAT, Dosing Weight 96.364 kg, Start date: 02/07/14 7:37:00, Duration: 1 doses or times, Stop date: 02/07/14 7:37:00 Morphine 2013-0 No 6 mg, Memoria 02-07 Route: l 12:33: IVP, Drug Pfeifer 00 form: INJ, ONCE, Dosing Weight 96.364, kg, Priority: STAT, Start date: 02/07/14 7:33:00, Stop date: 02/07/14 7:33:00 Zofran 2013-0 No 8 mg, Memoria 02-07 Route: l 12:33: IVP, Drug Lucien 00 form: INJ, ONCE, Dosing Weight 96.364, kg, Priority: STAT, Start date: 02/07/14 7:33:00, Stop date: 02/07/14 7:33:00 Azithromyci 2013-0 Yes 500 mg = 1 Memoria n 500 MG 4-30 tab, PO, l Oral Tablet 09:46: Daily, # 7 Pfeifer [Zithromax] 00 tab, 0 Refill(s) benzonatate 2013-0 Yes 100 mg = 1 Memoria 100 MG Oral 4-30 cap, PO, l Capsule 09:46: TID, # 21 Adrienne nn [Tessalon 00 cap, 0 Perles] Refill(s) carvedilol 2012-08 Yes Evan E 12.5 mg = Memoria 12.5 mg 2-20 Pierre II 1 tab, PO, l oral tablet 21:21: Q12H, # 60 Pfeifer 00 tab, 0 Refill(s) Tessalon 2012-08 Yes Evan E 200 mg = 1 Memoria 200 mg oral 2-20 Pierre II cap, PO, l capsule 21:21: TID, # 30 Adrienne nn 00 cap, 0 Refill(s) albuterol 2012-08 Yes Evan E 1 puff, Me moria 90 mcg/inh 2-20 Pierre II INHALATION l inhalation 21:21: , QID, Adrienne nn aerosol 00 wheezing, # 1 ea, 0 Refill(s) aspirin 81 2012-08 Yes [place] E 81 mg = 1 Memoria mg tablet, 2-20 Pierre II tab, PO, l enteric 21:21: Daily, # Delvin n coated 00 30 tab, 0 Refill(s) cloNIDine 2012-08 Yes [place] E 0.1 mg = 1 Memoria 0.1 mg oral 2-20 Pierre II tab, PO, l tablet 21:21: TID, Lucien 00 Elevated BP | sbp >/= 160, # 60 tab, 0 Refill(s) simvastatin 2012-08 Yes Evan E 40 mg = 2 Memoria 20 mg oral 2-20 Pierre II tab, PO, l tablet 21:21: Bedtime, # Adrienne nn 00 30 tab, 0 Refill(s) lisinopril 2012-08 Yes [place] E 20 mg = 1 Memoria 20 mg oral 2-20 Pierre II tab, PO, l tablet 21:21: Q12H, HOLD Adrienne nn 00 IF SBP HOLD IF SBP </= 110 furosemide 2012-08 Yes [place] E 40 mg = 1 Memoria 40 mg oral 2-20 Pierre II tab, PO, l tablet 21:21: Daily, # Lucien 00 30 tab, 0 Refill(s) Levaquin 2012-08 Yes [place] 750 mg = 1 Memoria 750 mg oral 2-20 [place] tab, PO, l tablet 19:43: Q24H, # 7 Delvin n 00 tab, 0 Refill(s) Lasix 2012-08 No Steven 40 mg, 1 Memori a 2-20 Guzmán tab, l 15:00: Lydia II Route: PO, He rm Drug form: TAB, Daily, Dosing Weight 93.3, kg, Start date: 07/21/13 9:00:00, Duration: 30 day, Stop date: 08/19/13 9:00:00(Sa me as: Lasix) May cause GI upset. Give with food or milk. hydrALAZINE 2012-08 No Evan E 10 mg, 0.5 Memoria 2-19 Pierre II mL, Route: l 20:02: IVP, Drug form: INJ, Q6H, Dosing Weight 97.727, kg, PRN Hypertensi on, Start date: 07/20/13 14:02:00, Duration: 30 day, Stop date: 08/19/13 14:01:00, SBP>/=150 OR DBP>/=90(S qian as: Apresoline ) Push over 5 minutes aspirin 325 2012-08 No [place] E 325 mg, 1 Memoria mg tablet, 2-19 Pierre II tab, l enteric 15:00: Route: PO, Herm lexy coated 00 Drug form: ECTAB, Daily, Dosing Weight 93.3, kg, Start date: 07/20/13 9:00:00, Duration: 30 day, Stop date: 08/18/13 9:00:00(Do Not Crush) Do not crush or chew. Zocor 2012-08 No [place] E 40 mg, 2 Memor ia 2-19 Pierre II tab, l 03:00: Route: PO, Lucien 00 Drug form: TAB, Bedtime, Dosing Weight 93.3, kg, Start date: 07/19/13 21:00:00, Duration: 30 day, Stop date: 08/17/13 21:00:00(S qian as: Zocor) lisinopril 2012-08 No Evan E 20 mg, 1 Memoria 2-19 Pierre II tab, l 02:50: Route: PO, Lucien 00 Drug form: TAB, Q12H, Dosing Weight 97.727, kg, Priority: STAT, Start date: 07/19/13 20:50:00, Duration: 30 day, Stop date: 08/18/13 9:00:00(Sa me as: Prinivil, Zestril) magnesium 2012-08 No Lisa M 2 gm, 50 Memoria sulfate 2-18 Pamela mL, Route: l 16:51: IVPB, Drug Lucien 00 form: INJ, PRN, Dosing Weight 93.3, kg, PRN Abnormal Lab Result, Start date: 07/19/13 10:51:00, Duration: 30 day, Stop date: 08/18/13 10:50:00, FOR ICU USE ONLYFOR ICU USE ONLY potassium 2012-08 No Lisa M 45 mmol, Memoria phosphate + 2-18 Pamela 15 mL, l Sodium 16:51: Route: Pfeifer Chloride 00 IVPB, Drug 0.9% IV 250 form: INJ, mL PRN, Dosing Weight 93.3, kg, PRN Abnormal Lab Result, Start date: 07/19/13 10:51:00, Duration: 30 day, Stop date: 08/18/13 10:50:00, FOR ICU USE ONLYFOR ICU USE ONLY(Same as: K Phosphate. ) 1 mMol phoshate has 1.47 mEq potassium Infuse over 4 hours calcium 2012-08 No Lisa M 1 gm, 50 Me moria gluconate 2-18 Pamela mL, Route: l 16:51: IVPB, Drug Lucien 00 form: INJ, PRN, Dosing Weight 93.3, kg, PRN Abnormal Lab Result, Start date: 07/19/13 10:51:00, Duration: 30 day, Stop date: 08/18/13 10:50:00, FOR ICU USE ONLYFOR ICU USE ONLY sodium 2012-08 No Lisa M 45 mmol, Mem oria glycerophos 2-18 Pamela 45 mL, l phate + 16:51: Route: Pfeifer Sodium 00 IVPB, Drug Chloride form: INJ, 0.9% IV 250 PRN, mL Dosing Weight 93.3, kg, PRN Abnormal Lab Result, Start date: 07/19/13 10:51:00, Duration: 30 day, Stop date: 08/18/13 10:50:00, FOR ICU USE ONLYFOR ICU USE ONLY potassium 2012-08 No Lisa M 20 mEq, 1 Memoria chloride 2-18 Pamela tab, l 16:51: Route: PO, Lucien 00 Drug form: ERTAB, PRN, Dosing Weight 93.3, kg, PRN Abnormal Lab Result, Start date: 07/19/13 10:51:00, Duration: 30 day, Stop date: 08/18/13 10:50:00, FOR ICU USE ONLYFOR ICU USE ONLY(Same as: K-Dur 20) "Do Not Crush" With food and full glass of water Lasix 2012-08 No Steven 40 mg, 4 Memori a 2-18 Guzmán mL, Route: l 15:00: [place] II IVP, Drug Her west 00 form: INJ, Daily, Dosing Weight 97.727, kg, Priority: Routine, Start date: 07/19/13 9:00:00, Duration: 30 day, Stop date: 08/17/13 9:00:00(Sa me as: Lasix) folic acid 2012-08 No [place] E 1 mg, 1 M emoria 2-18 Pierre II tab, l 15:00: Route: PO, Pfeifer 00 Drug form: TAB, Daily, Dosing Weight 97.727, kg, Start date: 07/19/13 9:00:00, Duration: 30 day, Stop date: 08/17/13 9:00:00(Sa me as: Folvite) multivitami 2012-08 No Evan E 1 tab, M emoria n 2-18 Pierre II Route: PO, l 15:00: Drug Form: Lucien 00 TAB, Dosing Weight 97.727, kg, Daily, Start date: 07/19/13 9:00:00, Duration: 30 day, Stop date: 08/17/13 9:00:00 thiamine 2012-08 No [place] E 100 mg, 1 M emoria 2-18 Pierre II tab, l 15:00: Route: PO, Lucien 00 Drug form: TAB, Daily, Dosing Weight 97.727, kg, Start date: 07/19/13 9:00:00, Duration: 30 day, Stop date: 08/17/13 9:00:00(Sa me As: Vitamin B1) influenza 2012-08 Yes SYSTEM 0.5 mL, Mem oria virus 2-18 SYSTEM Route: IM, l vaccine, 15:00: Drug Form: Her west inactivated 00 SUSP, Daily, Start date: 07/19/13 9:00:00, Duration: 1 doses or times, Stop date: 07/19/13 9:00:00(Sa me as: Fluzone) multivitami 2012-08 No [place] E 1 tab, M emoria n with 2-18 Ignacio II Route: PO, l minerals 15:00: Drug Form: Her west 00 TAB, Daily, Start date: 07/19/13 9:00:00, Duration: 30 day, Stop date: 08/17/13 9:00:00Giv e with food. (Same As: Stress 600 with Zinc) vancomycin 2012-08 No Akinyinka 1.25 gm, Memoria 2-18 Ajelabi 250 mL, l 12:00: Route: Lucien 00 IVPB, Drug form: INJ, [id number], Start date: 07/19/13 6:00:00, Stop date: 08/18/13 2:00:00Sam e as: Vancocin-N S (premixed) [place] 2012-08 No Evan E 1 tab, Memoria 10/325 oral - Ignacio II Route: PO, l tablet 06:00: Drug Form: Adrienne nn 00 TAB, Dosing Weight 97.727, kg, Q6H, Start date: 07/19/13 0:00:00, Duration: 30 day, Stop date: 08/17/13 18:00:00Do not exceed 4gm/day of acetaminop hen. (Same as: [place] 325/10) albuterol-i 2012-08 No Evan E 3 mL, Me moria pratropium 2-18 Ignacio II Route: l 2.5-0.5 mg 05:00: NEB, Drug He rmann inhalation 00 Form: solution SOLN, Dosing Weight 97.727, kg, RQ4H, Start date: 07/18/13 23:00:00, Duration: 30 day, Stop date: 08/17/13 19:00:00(S qian as: Duoneb) Tessalon 2012-08 No [place] E 200 mg, 2 M emoria Perles 2-18 Ignacio II cap, l 04:00: Route: PO, Pfeifer 00 Drug form: CAP, Q8H-06, Dosing Weight 97.727, kg, Start date: 07/18/13 22:00:00, Duration: 30 day, Stop date: 08/17/13 14:00:00(S qian As: Freida Gamez) "Do Not Crush" lisinopril 2012-08 No [place] E 10 mg, 1 Memoria 2-18 Pierre II tab, l 03:00: Route: PO, Pfeifer 00 Drug form: TAB, Q12H, Dosing Weight 97.727, kg, Start date: 07/18/13 21:00:00, Duration: 30 day, Stop date: 08/17/13 9:00:00([facility] as: Prinivil, Zestril) Coreg 2012-08 No Steven 12.5 mg, 1 Mike una 2-18 Guzmán tab, l 03:00: [place] II Route: PO, He rm Drug form: TAB, Q12H, Dosing Weight 97.727, kg, Start date: 07/18/13 21:00:00, Stop date: 08/17/13 9:00:00Giv e with food. (Same As: Coreg) Vancomycin 2012-08 No [place] 1 gm, M [facility] 2-18 [facility] Route: IV, l Dosing 03:00: Dosing Weight 97.727, kg, Q12H, Start date: 07/18/13 21:00:00, Duration: 30 day, Stop date: 08/17/13 9:00:00 Nicoderm 2012-08 No Evan E 21 mg, 1 Me moria C-Q 2-18 Pierre II patch, l 02:25: Route: Lucien 00 TOP, Drug form: ERFILM, Daily, Dosing Weight 97.727, kg, Start date: 07/18/13 20:25:00, Duration: 30 day, Stop date: 08/17/13 9:00:00([facility] as: Habitrol) "Remove old patch before applicatio n of new patch" Ativan 2012-08 No [place] E 1 mg, 0.5 Mem oria 2-18 Pierre II mL, Route: l 02:18: IVP, Drug form: INJ, Q2H, Dosing Weight 97.727, kg, PRN Anxiety, Start date: 07/18/13 20:18:00, Duration: 30 day, Stop date: 08/17/13 20:17:00, SIGNS OF WITHDRAWAL , AGITATION, Anxiety(Sa me as: Ativan) clonidine 2012-08 No [place] E 0.1 mg, 1 Memoria 0.1 mg oral 2-18 Pierre II tab, l tablet 02:17: Route: PO, Adrienne nn 00 Drug form: TAB, TID, Dosing Weight 97.727, kg, PRN Elevated BP, Start date: 07/18/13 20:17:00, Duration: 30 day, Stop date: 08/17/13 20:16:00, sbp >/= 180(Same As: Catapres) vancomycin 2012-08 No Akinyinka 1.5 gm, Memoria 2-18 Ajelabi 250 mL, l 02:00: Route: Pfeifer 00 IVPB, Drug form: INJ, ONCE, Start date: 07/18/13 20:00:00, Stop date: 07/18/13 20:00:00Sa me as: Vancocin-N S (premixed) dextrometho 2012-08 No Evan E 10 mL, M emoria rphan-guaif 2-18 Ignacio II Route: PO, l enesin 10 01:28: Drug Form: He rmann mg-100 mg/5 00 LIQ, mL oral Dosing liquid Weight 97.727, kg, Q4H, PRN Cough, Start date: 07/18/13 19:28:00, Duration: 30 day, Stop date: 08/17/13 19:27:00(d extrometho rphan-guai fenesin 10-100/5 ml LIQ) (Same as: Robitussin -DM) Colace 100 2012-08 No Evan E 100 mg, 1 Memoria mg oral 2-18 Pierre II cap, l capsule 01:28: Route: PO, Herm lexy 00 Drug form: CAP, BID, Dosing Weight 97.727, kg, PRN Constipati on, Start date: 07/18/13 19:28:00, Duration: 30 day, Stop date: 08/17/13 19:27:00(S qian as: Colace) (Do Not Crush) Gas-X Ultra 2012-08 No Evan E 160 mg, 2 Memoria Softgels 2-18 Pierre II tab, l 01:28: Route: PO, Drug form: CHEWTAB, Q4H, Dosing Weight 97.727, kg, PRN Gas, Start date: 07/18/13 19:28:00, Duration: 30 day, Stop date: 08/17/13 19:27:00(S qian as: Mylicon) GI cocktail 2012-08 No [place] E 30 ml, M emoria 2-18 Ignacio II Route: PO, l :28: Drug Form: Lucien 00 SUSP, Dosing Weight 97.727, kg, Q4H, PRN GI Upset, Routine, Start date: 07/18/13 19:28:00, Duration: 30 day, Stop date: 08/17/13 19:27:00, DYSPEPSIAG .I. Cocktail = antacid with simethicon e 22.5 mL - lidocaine viscous 7.5 mL morphine 2012-08 No Evan E 2 mg, 1 Mem oria Sulfate 2-18 Ignacio II mL, Route: l : IVP, Drug form: INJ, Q6H, Dosing Weight 97.727, kg, PRN as needed for pain, Start date: 07/18/13 19:28:00, Duration: 30 day, Stop date: 08/17/13 19:27:00(S qian as:MORPhin e Sulfate) Tylenol 2012-08 No Evan E 650 mg, Mike una 2-18 Ignacio II Route: PO, l 28: Drug form: TAB, Q6H, Dosing Weight 97.727, kg, PRN Pain, Start date: 07/18/13 19:28:00, Duration: 30 day, Stop date: 08/17/13 19:27:00 hydrALAZINE 2012-08 No Evan E 10 mg, 0.5 Memoria 2-18 Ignacio II mL, Route: l : IVP, Drug form: INJ, Q6H, Dosing Weight 97.727, kg, PRN Elevated BP, Start date: 07/18/13 19:28:00, Duration: 30 day, Stop date: 08/17/13 19:27:00, SBP>/=160 OR DBP>/=90(S qian as: Apresoline ) Push over 5 minutes lactulose 2012-08 No Evan E 20 gm, 30 Memoria 2-18 Pierre II ml, Route: l 01:28: PO, Drug Form: SYRP, Dosing Weight 97.727, kg, TID, PRN Constipati on, Start date: 07/18/13 19:28:00, Duration: 30 day, Stop date: 08/17/13 19:27:00(S qian as:Chronul ac) Zofran 2012-08 No [place] E 4 mg, 2 Memor ia 2-18 Pierre II mL, Route: l 01:28: IV, Drug form: INJ, Q4H, Dosing Weight 97.727, kg, PRN Nausea, Start date: 07/18/13 19:28:00, Duration: 30 day, Stop date: 08/17/13 19:27:00(S qian as: Zofran) acetaminoph 2012-08 No [place] E 650 mg, 2 Memoria en 2-18 Pierre II tab, l 01:28: Route: PO, Lucien 00 Drug form: TAB, Q4H, Dosing Weight 97.727, kg, PRN Pain Score 1-3, For fever > 100.4. Not to exceed 4 grams in 24 hours, Start date: 07/18/13 19:28:00, Duration: 30 day, Stop date: 08/17/13 19:27:00Do not exceed 4 gm/day. (Same as: Tylenol) tuberculin 2012-08 No Evan E 5 unit, M emoria purified 2-18 Pierre II 0.1 mL, l protein 01:22: Route: Pfeifer 00 INTRADERM, 5 ONCE, tuberculin Dosing units/0.1 Weight mL 97.727, intradermal kg, Start solution date: 07/18/13 19:22:00, Stop date: 07/18/13 19:22:00 levofloxaci 2012-08 No [place]a 750 mg, Memoria n 2-18 Ajelabi 150 mL, l 00:00: Route: IV, Pfeifer 00 Drug form: SOLN, [id number], Dosing Weight 97.727, kg, Start date: 07/18/13 18:00:00, Duration: 30 day, Stop date: 08/16/13 18:00:00(S qian as:Levaqui n) Lasix 2012-08 No [place]inyinka 40 mg, 4 Mem oria 2-17 Ajelabi mL, Route: l 23:20: IV, Drug Pfeifer 00 form: INJ, ONCE, Dosing Weight 97.727, kg, Start date: 07/18/13 17:20:00, Stop date: 07/18/13 17:20:00(S qian as: Lasix) tuberculin 2012-08 No Akinyinka 5 unit, Memoria purified 2-17 Ajelabi 0.1 mL, l protein 23:17: Route: Lucien derivative 00 INTRADERM, Drug form: INJ, ONCE, Dosing Weight 97.727, kg, Start date: 07/18/13 17:17:00, Stop date: 07/18/13 17:17:00LO T#: ___ EXP: (Same As: Aplisol, Tubersol) Lasix 2012-08 No Akinyinka 40 mg, Memor ia 2-17 Ajelabi Route: l 23:12: IVP, Drug Lucien 00 form: INJ, ONCE, Dosing Weight 97.727, kg, Priority: STAT, Start date: 07/18/13 17:12:00, Stop date: 07/18/13 17:12:00 hydrALAZINE 2012-08 No Kory Eyal 20 mg, 1 Memoria 2-17 Faig mL, Route: l 20:40: IVP, Drug Lucien 00 form: INJ, ONCE, Dosing Weight 97.727, kg, Priority: STAT, Start date: 07/18/13 14:40:00, Stop date: 07/18/13 14:40:00(S qian as: Apresoline ) Push over 5 minutes Tylenol 2012-08 No Kory Eyal 650 mg, Mem oria 2-17 [place] Route: PO, l 20:12: Drug form: Lucien 00 TAB, ONCE, Dosing Weight 97.727, kg, Priority: STAT, Start date: 07/18/13 14:12:00, Stop date: 07/18/13 14:12:00 ketorolac 2012-08 No Kory Eyal 30 mg, Me moria 2-17 Faig Route: l 20:12: IVP, Drug Lucien 00 form: INJ, ONCE, Dosing Weight 97.727, kg, Priority: STAT, Start date: 07/18/13 14:12:00, Stop date: 07/18/13 14:12:00 albuterol-i 2012-08 No Kory Eyal 3 mL, M emoria pratropium 2-17 Faig Route: l 2.5-0.5 mg 19:00: NEB, Drug He rmann inhalation 00 Form: solution SOLN, Dosing Weight 97.727, kg, ONCE, STAT, Start date: 07/18/13 13:00:00, Stop date: 07/18/13 13:00:00 Saline 2012-08 No Kory Eyal 5 mL, Memori a Flush 0.9% 2-17 Faig Route: l 19:00: IVP, Drug Lucien Form: INJ, Dosing Weight 97.727, kg, PRN, PRN Line Flush, Start date: 07/18/13 13:00:00, Duration: 1 doses or times, Stop date: Limited # of times(Same as: BD Posiflush) Asprin Ec Asprin Ec No 1 Q1D Asprin Ec [facility] Low Dose 81 Low Dose 81 Low Dose Family mg mg 81 mg Practic tablet,delgado tablet,delgado tablet,del e yed release yed release ayed Take 1 Take 1 release tablet tablet Take 1 every day every day tablet by oral by oral every day route. route. by oral route. atorvastati atorvastati No 1 Q1D atorvastat [facility] n 80 mg n 80 mg in 80 mg Famil y tablet Take tablet Take tablet Practic 1 tablet 1 tablet Take 1 e every day every day tablet by oral by oral every day route for route for by oral 90 days. 90 days. route for 90 days. carvedilol carvedilol No 1 BID carvedilol [facility] 25 mg 25 mg 25 mg Family tablet Take tablet Take tablet Practic 1 tablet 1 tablet Take 1 e twice a day twice a day tablet by oral by oral twice a route for route for day by 90 days. 90 days. oral route for 90 days. clopidogrel clopidogrel No 1 Q1D clopidogre [facility] 75 mg 75 mg l 75 mg Family tablet Take tablet Take tablet Practic 1 tablet 1 tablet Take 1 e every day every day tablet by oral by oral every day route for route for by oral 90 days. 90 days. route for 90 days. Entresto 97 Entresto 97 No Entresto [facility] mg-103 mg mg-103 mg 97 mg-103 Family tablet TAKE tablet TAKE mg tablet Practic ONE TABLET ONE TABLET TAKE ONE e BY MOUTH BY MOUTH TABLET BY TWICE DAILY TWICE DAILY MOUTH TWICE DAILY gabapentin gabapentin No 1capsul Q1D gabapentin [facility] 300 mg 300 mg e(s) 300 mg Family capsule capsule capsule Practi c Take 1 Take 1 Take 1 e capsule capsule capsule every day every day every day by oral by oral by oral route. route. route. levetiracet levetiracet No 1 BID levetirace [facility] am 1,000 mg am 1,000 mg perkins 1,000 Family tablet Take tablet Take mg tablet [facility] 1 tablet 1 tablet Take 1 e twice a day twice a day tablet by oral by oral twice a route for route for day by 30 days. 30 days. oral route for 30 days. nifedipine nifedipine No 1 Q1D nifedipine [facility] ER 60 mg ER 60 mg ER 60 mg Fam jose tablet,exte tablet,exte tablet,ext [facility] nded nded ended e release release release Take 1 Take 1 Take 1 tablet tablet tablet every day every day every day by oral by oral by oral route for route for route for 90 days. 90 days. 90 days. trazodone trazodone No 1 trazodone [facility] 100 mg 100 mg 100 mg Family tablet Take tablet Take tablet [facility] 1 tablet as 1 tablet as Take 1 e needed by needed by tablet as oral route oral route needed by at bedtime. at bedtime. oral route prn prn at insomnia insomnia bedtime. prn insomnia Keppra 750 Keppra 750 2018- No 1 BID Keppra 750 [facility] mg tablet mg tablet 01-24 mg tablet Family Take 1 Take 1 00:00 Take 1 [facility] tablet tablet :00 tablet e twice a day twice a day twice a by oral by oral day by route. route. oral route. Immunizations Ordered Immunization Filled Immunization Date Status Commen ts Source Name Name EMILY GARCIA 2016-09-18 [facility] 00:00:00 [employer] Vital Signs Vital Name Observation Time Observation Value Comments Source BP Diastolic 2017-10-19 00:00:00 77 mm[Hg] [facility] Height 2017-10-19 00:00:00 66 [in_i] [facility] BMI (Body Mass Index) 2017-10-19 00:00:00 37.8 kg/m2 [facility] BP Systolic 2017-10-19 00:00:00 132 mm[Hg] [facility] Body Weight 2017-10-19 00:00:00 234 [lb_av] [facility] BP Diastolic 2017-10-08 00:00:00 76 mm[Hg] [facility] Height 2017-10-08 00:00:00 66 [in_i] [facility] BMI (Body Mass Index) 2017-10-08 00:00:00 38 kg/m2 [facility] BP Systolic 2017-10-08 00:00:00 116 mm[Hg] [facility] Body Weight 2017-10-08 00:00:00 235.6 [lb_av] [facility] BP Diastolic 2017-08-25 00:00:00 82 mm[Hg] [facility] Height 2017-08-25 00:00:00 66 [in_i] [facility] BMI (Body Mass Index) 2017-08-25 00:00:00 39.3 kg/m2 [facility] BP Systolic 2017-08-25 00:00:00 110 mm[Hg] [facility] Body Weight 2017-08-25 00:00:00 243.6 [lb_av] [facility] Systolic (mm Hg) 2017-04-21 06:49:00 Mike rial Pfeifer Diastolic (mm Hg) 2017-04-21 06:49:00 Mem orial Pfeifer Heart Rate 2017-04-21 06:49:00 [facility] Lucien Respitory Rate 2017-04-21 06:49:00 Memori al Lucien Temperature Oral (F) 2017-04-21 06:49:00 98.4 F [facility] Pfeifer Height 2017-04-21 06:49:00 180.34 cm [facility] Pfeifer BMI Calculated 2017-04-21 06:49:00 Memori al Pfeifer Weight 2017-04-21 06:49:00 [facility] Pfeifer Respitory Rate 2017-04-19 16:08:00 Memori al Lucien Systolic (mm Hg) 2017-04-19 15:19:00 Mike rial Pfeifer Diastolic (mm Hg) 2017-04-19 15:19:00 Mem orial Lucien Respitory Rate 2017-04-19 15:19:00 Memori al Lucien Temperature Oral (F) 2017-04-19 15:19:00 98.9 F [facility] Lucien Heart Rate 2017-04-19 15:19:00 [facility] Pfeifer Temperature Oral (F) 2017-04-19 12:04:00 98.3 F [facility] Lucien Respitory Rate 2017-04-19 12:04:00 Memori al Lucien Heart Rate 2017-04-19 12:04:00 [facility] Lucien Systolic (mm Hg) 2017-04-19 12:04:00 Mike rial Pfeifer Diastolic (mm Hg) 2017-04-19 12:04:00 Mem orial Lucien Heart Rate 2017-04-19 08:39:00 [facility] Lucien Temperature Oral (F) 2017-04-19 08:39:00 98.6 F [facility] Pfeifer Systolic (mm Hg) 2017-04-19 08:39:00 Mike rial Lucien Diastolic (mm Hg) 2017-04-19 08:39:00 Mem orial Lucien BMI Calculated 2017-04-18 18:56:00 Memori al Lucien Weight 2017-04-18 18:56:00 [facility] Pfeifer Height 2017-04-18 18:56:00 165.1 cm [facility] Lucien Heart Rate 2016-08-27 21:32:00 [facility] Lucien Systolic (mm Hg) 2016-08-27 21:32:00 Mike rial Pfeifer Diastolic (mm Hg) 2016-08-27 21:32:00 Mem orial Lucien Respitory Rate 2016-08-27 21:32:00 Memori al Pfeifer Temperature Oral (F) 2016-08-27 21:32:00 98.8 F [facility] Pfeifer Heart Rate 2016-08-27 19:15:00 [facility] Pfeifer Respitory Rate 2016-08-27 19:15:00 Memori al Lucien Temperature Oral (F) 2016-08-27 19:15:00 99.0 F [facility] Lucien Systolic (mm Hg) 2016-08-27 19:15:00 Mike rial Lucien Diastolic (mm Hg) 2016-08-27 19:15:00 Mem orial Lucien Weight 2016-08-27 19:15:00 [facility] Pfeifer Systolic (mm Hg) 2016-07-30 18:12:00 Mike rial Lucien Diastolic (mm Hg) 2016-07-30 18:12:00 Mem orial Pfeifer Respitory Rate 2016-07-30 18:12:00 Memori al Pfeifer Heart Rate 2016-07-30 18:12:00 [facility] Lucien Temperature Oral (F) 2016-07-30 18:12:00 98.6 F [facility] Pfeifer Respitory Rate 2016-07-30 14:57:00 Memori al Pfeifer Systolic (mm Hg) 2016-07-30 14:57:00 Mike rial Pfeifer Diastolic (mm Hg) 2016-07-30 14:57:00 Mem orial Pfeifer Heart Rate 2016-07-30 14:57:00 [facility] Pfeifer Temperature Oral (F) 2016-07-30 14:57:00 98.9 F [facility] Lucien Systolic (mm Hg) 2016-07-30 10:00:00 Mike rial Pfeifer Diastolic (mm Hg) 2016-07-30 10:00:00 Mem orial Pfeifer Respitory Rate 2016-07-30 10:00:00 Memori al Pfeifer Heart Rate 2016-07-30 10:00:00 [facility] Lucien Temperature Oral (F) 2016-07-30 10:00:00 97.5 F [facility] Pfeifer Weight 2016-07-27 17:13:00 [facility] Lucien BMI Calculated 2016-07-27 17:13:00 Memori al Lucien Height 2016-07-27 17:13:00 165.1 cm [facility] Pfeifer Systolic (mm Hg) 2016-03-07 22:33:00 Mike rial Lucien Diastolic (mm Hg) 2016-03-07 22:33:00 Mem orial Pfeifer Heart Rate 2016-03-07 22:33:00 [facility] Lucien Temperature Oral (F) 2016-03-07 22:33:00 98.8 F [facility] Pfeifer Respitory Rate 2016-03-07 22:33:00 Memori al Lucien Systolic (mm Hg) 2016-03-07 19:17:00 Mike rial Lucien Diastolic (mm Hg) 2016-03-07 19:17:00 Mem orial Lucien Respitory Rate 2016-03-07 19:17:00 Memori al Lucien Temperature Oral (F) 2016-03-07 19:17:00 99.1 F [facility] Lucien Heart Rate 2016-03-07 19:17:00 [facility] Pfeifer BMI Calculated 2016-03-07 17:40:00 Memori al Pfeifer Height 2016-03-07 17:40:00 165.1 cm [facility] Pfeifer Weight 2016-03-07 17:40:00 [facility] Pfeifer Heart Rate 2016-03-07 17:40:00 [facility] Lucien Respitory Rate 2016-03-07 17:40:00 Memori al Lucien Temperature Oral (F) 2016-03-07 17:40:00 98.5 F [facility] Lucien Systolic (mm Hg) 2016-03-07 17:40:00 Mike rial Pfeifer Diastolic (mm Hg) 2016-03-07 17:40:00 Mem orial Pfeifer Heart Rate 2016-02-18 21:51:00 [facility] Pfeifer Respitory Rate 2016-02-18 21:51:00 Memori al Pfeifer Temperature Oral (F) 2016-02-18 21:51:00 98.1 F [facility] Pfeifer Systolic (mm Hg) 2016-02-18 21:51:00 Mike rial Lucien Diastolic (mm Hg) 2016-02-18 21:51:00 Mem orial Pfeifer Heart Rate 2016-02-18 20:44:00 [facility] Pfeifer Systolic (mm Hg) 2016-02-18 20:44:00 Mike rial Pfeifer Diastolic (mm Hg) 2016-02-18 20:44:00 Mem orial Lucien Respitory Rate 2016-02-18 20:44:00 Memori al Pfeifer Temperature Oral (F) 2016-02-18 20:44:00 98.2 F [facility] Lucien Systolic (mm Hg) 2016-02-18 17:22:00 Mike rial Lucien Diastolic (mm Hg) 2016-02-18 17:22:00 Mem orial Pfeifer Heart Rate 2016-02-18 17:22:00 [facility] Lucien Respitory Rate 2016-02-18 17:22:00 Memori al Pfeifer Height 2016-02-18 16:37:00 177.8 cm [facility] Pfeifer BMI Calculated 2016-02-18 16:37:00 Memori al Lucien Weight 2016-02-18 16:37:00 [facility] Pfeifer Temperature Oral (F) 2016-02-18 16:37:00 98.5 F [facility] Lucien Systolic (mm Hg) 2014-11-22 18:01:00 Mike rial Lucien Diastolic (mm Hg) 2014-11-22 18:01:00 Mem orial Pfeifer Heart Rate 2014-11-22 18:01:00 [facility] Lucien Respitory Rate 2014-11-22 18:01:00 Memori al Pfeifer Weight 2014-11-22 16:06:00 [facility] Pfeifer BMI Calculated 2014-11-22 16:06:00 Memori al Pfeifer Height 2014-11-22 16:06:00 165.1 cm [facility] Pfeifer Heart Rate 2014-11-22 16:06:00 [facility] Pfeifer Systolic (mm Hg) 2014-11-22 16:06:00 Miek rial Pfeifer Diastolic (mm Hg) 2014-11-22 16:06:00 Mem orial Pfeifer Temperature Oral (F) 2014-11-22 16:06:00 98.5 F [facility] Lucien Respitory Rate 2014-11-22 16:06:00 Memori al Pfeifer Respitory Rate 2014-08-18 01:58:00 Memori al Lucien Respitory Rate 2014-08-18 00:51:00 Memori al Lucien Temperature Oral (F) 2014-08-18 00:51:00 97.5 F [facility] Lucien Systolic (mm Hg) 2014-08-18 00:51:00 Mike rial Pfeifer Diastolic (mm Hg) 2014-08-18 00:51:00 Mem orial Pfeifer Heart Rate 2014-08-18 00:51:00 [facility] Pfeifer Heart Rate 2014-08-17 19:30:00 [facility] Lucien Heart Rate 2014-08-17 17:18:00 [facility] Lucien Systolic (mm Hg) 2014-08-17 17:18:00 Mike rial Lucien Diastolic (mm Hg) 2014-08-17 17:18:00 Mem orial Lucien Respitory Rate 2014-08-17 13:51:00 Memori al Pfeifer Temperature Oral (F) 2014-08-17 13:18:00 98.3 F [facility] Lucien Systolic (mm Hg) 2014-08-17 13:18:00 Mike rial Lucien Diastolic (mm Hg) 2014-08-17 13:18:00 Mem orial Lucien Temperature Oral (F) 2014-08-17 06:02:00 98.4 F [facility] BMI Calculated 2014-08-14 21:38:00 Memori al Lucien Weight 2014-08-14 21:38:00 [facility] Pfeifer Height 2014-08-14 21:38:00 165.1 cm [facility] Pfeifer Weight 2014-08-14 21:36:00 [facility] Lucien BMI Calculated 2014-08-14 21:36:00 Memori al Pfeifer Height 2014-08-14 21:36:00 165.1 cm [facility] Pfeifer Weight 2014-08-14 13:19:00 [facility] Lucien BMI Calculated 2014-08-14 13:19:00 Memori al Lucien Height 2014-08-14 13:19:00 165.1 cm [facility] Lucien Diastolic (mm Hg) 2014-05-13 13:00:00 Mem orial Pfeifer Systolic (mm Hg) 2014-05-13 13:00:00 Mike rial Lucien Heart Rate 2014-05-13 13:00:00 [facility] Lucien Respitory Rate 2014-05-13 13:00:00 Memori al Pfeifer Temperature Oral (F) 2014-05-13 13:00:00 98.6 F [facility] Pfeifer Temperature Oral (F) 2014-05-13 09:32:00 98.5 F [facility] Pfeifer Respitory Rate 2014-05-13 09:32:00 Memori al Lucien Systolic (mm Hg) 2014-05-13 09:32:00 Mike rial Pfeifer Heart Rate 2014-05-13 09:32:00 [facility] Lucien Diastolic (mm Hg) 2014-05-13 09:32:00 Mem orial Lucien Temperature Oral (F) 2014-05-13 04:06:00 98.7 F [facility] Pfeifer Diastolic (mm Hg) 2014-05-13 04:06:00 Mem orial Pfeifer Respitory Rate 2014-05-13 04:06:00 Memori al Pfeifer Heart Rate 2014-05-13 04:06:00 [facility] Lucien Systolic (mm Hg) 2014-05-13 04:06:00 Mike rial Pfeifer Weight 2014-05-09 11:38:00 [facility] Pfeifer Height 2014-05-09 11:38:00 165.1 cm [facility] BMI Calculated 2014-05-09 10:42:00 [facility] Lucien Weight 2014-05-09 10:42:00 [facility] Luc[facility] Height 2014-05-09 10:42:00 165.1 cm [facility] Pfeifer Weight 2014-05-09 07:58:00 [facility] Height 2014-05-09 07:58:00 165.1 cm [facility] Pfeifer BMI Calculated 2014-05-09 07:58:00 [facility] al Lucien Respitory Rate 2014-05-09 07:20:00 [facility] Lucien Heart Rate 2014-05-09 07:20:00 [facility] Pfeifer Diastolic (mm Hg) 2014-05-09 07:20:00 Mem orial Pfeifer Systolic (mm Hg) 2014-05-09 07:20:00 Mike rial Lucien Diastolic (mm Hg) 2014-05-09 05:30:00 Mem orial Pfeifer Respitory Rate 2014-05-09 05:30:00 Memori al Lucien Systolic (mm Hg) 2014-05-09 05:30:00 Mike rial Lucien Heart Rate 2014-05-09 05:30:00 [facility] Pfeifer Height 2014-05-08 23:31:00 165.1 cm [facility] Weight 2014-05-08 23:31:00 [facility] BMI Calculated 2014-05-08 23:31:00 Memori al Pfeifer Temperature Oral (F) 2014-05-08 23:31:00 98.6 F [facility] Pfeifer Respitory Rate 2014-05-08 23:31:00 Memori al Pfeifer Systolic (mm Hg) 2014-05-08 23:31:00 Mike rial Pfeifer Heart Rate 2014-05-08 23:31:00 [facility] Pfeifer Diastolic (mm Hg) 2014-05-08 23:31:00 Mem orial Lucien Temperature Oral (F) 2014-02-09 16:00:00 98.0 F [facility] Heart Rate 2014-02-09 16:00:00 [facility] Respitory Rate 2014-02-09 16:00:00 Memori al Pfeifer Systolic (mm Hg) 2014-02-09 16:00:00 Mike rial Pfeifer Diastolic (mm Hg) 2014-02-09 16:00:00 Mem orial Pfeifer Temperature Oral (F) 2014-02-09 12:00:00 98.6 F [facility] Diastolic (mm Hg) 2014-02-09 12:00:00 Mem orial Pfeifer Systolic (mm Hg) 2014-02-09 12:00:00 Mike rial Pfeifer Respitory Rate 2014-02-09 12:00:00 [facility] Lucien Heart Rate 2014-02-09 12:00:00 [facility] Pfeifer Temperature Oral (F) 2014-02-09 05:00:00 98.6 F [facility] Heart Rate 2014-02-09 05:00:00 [facility] Diastolic (mm Hg) 2014-02-09 05:00:00 Mem o[facility] Lucien Systolic (mm Hg) 2014-02-09 05:00:00 Mike rial Lucien Respitory Rate 2014-02-09 05:00:00 Memori al Pfeifer BMI Calculated 2014-02-07 23:12:00 [facility] Pfeifer Height 2014-02-07 23:12:00 165.1 cm [facility] Pfe[facility] Weight 2014-02-07 23:12:00 [facility] Weight 2014-02-07 20:41:00 [facility] BMI Calculated 2014-02-07 20:41:00 [facility] al Pfeifer Height 2014-02-07 20:41:00 165.1 cm [facility] Weight 2014-02-07 12:12:00 [facility] BMI Calculated 2014-02-07 12:12:00 [facility] Height 2014-02-07 12:12:00 165.1 cm [facility] Systolic (mm Hg) 2013-11-29 10:16:00 [facility] Diastolic (mm Hg) 2013-11-29 10:16:00 [facility] Temperature Oral (F) 2013-11-29 10:16:00 98.9 F [facility] Heart Rate 2013-11-29 10:16:00 [facility] Respitory Rate 2013-11-29 10:16:00 [facility] BMI Calculated 2013-11-29 09:01:00 [facility] Weight 2013-11-29 09:01:00 [facility] Height 2013-11-29 09:01:00 165.1 cm [facility] Respitory Rate 2013-11-29 09:01:00 [facility] Temperature Oral (F) 2013-11-29 09:01:00 99.1 F [facility] Heart Rate 2013-11-29 09:01:00 [facility] Diastolic (mm Hg) 2013-11-29 09:01:00 [facility] Systolic (mm Hg) 2013-11-29 09:01:00 [facility] Systolic (mm Hg) 2013-07-21 18:00:00 [facility] Temperature Oral (F) 2013-07-21 18:00:00 98.5 F [facility] Heart Rate 2013-07-21 18:00:00 [facility] Respitory Rate 2013-07-21 18:00:00 [facility] Diastolic (mm Hg) 2013-07-21 18:00:00 [facility] Respitory Rate 2013-07-21 14:00:00 [facility] Heart Rate 2013-07-21 14:00:00 [facility] Temperature Oral (F) 2013-07-21 14:00:00 99.5 F [facility] Diastolic (mm Hg) 2013-07-21 14:00:00 [facility] Systolic (mm Hg) 2013-07-21 14:00:00 [facility] Temperature Oral (F) 2013-07-21 06:24:00 97.9 F [facility] Heart Rate 2013-07-21 06:24:00 [facility] Respitory Rate 2013-07-21 06:24:00 [facility] Systolic (mm Hg) 2013-07-21 06:24:00 Mike rial Lucien Diastolic (mm Hg) 2013-07-21 06:24:00 [facility] Height 2013-07-20 07:30:00 165.1 cm [facility] Weight 2013-07-19 08:35:00 [facility] Height 2013-07-19 08:35:00 165.1 cm [facility] Height 2013-07-18 17:58:00 165.1 cm [facility] Weight 2013-07-18 17:58:00 [facility] Procedures Procedure Date / Time Performed Performing Clinician [facility] e X-RAY OF FINGER(S) 2+ 2017-10[facility] 2016-07-29 06:00:00 Dory Mcgraw stem Hand Surgery [facility] Angioplasty of blood [facility] vessel Hand repair [facility] Plan of Care Planned Activity Planned Date Details Comments Source Future Scheduled Test 2020-03-02 INFLUENZA VACCINE [facility] 00:00:00 [code = INFLUENZA VACCINE] Future Scheduled Test 2017-11-22 [place]ON[place]COPY [place] 00:[facility]:00 SCREENING [code = COLONOSCOPY SCREENING] Future Scheduled Test 2017-11-22 SHINGLES VACCINES [facility] 00:00:00 (#1) [code = SHINGLES VACCINES (#1)] Instructions [place] Practice Instructions [facility] Encounters Start End Encounter Admission Attending Care Care Encounter Source Date/Time Date/Time Type Type Clinicians Facility Department ID 2017-11-04 2017-11-05 Outpatient MISCHER MISCHER [id number] 15:53:00 23:59:59 07 2017-10-19 2017-10-19 Gray Thorne [facility] [place] - [id number] [facility] 00:00:00 00:00:00 MD Aaron: [facility] [address] [place], Practice - [address], [place] [address] , Ph. 2017-10-08 2017-10-08 [place] [facility] [place] - [id number] [facility] 00:00:00 00:00:00 Na [facility] Family Nayanajumo, Family Practic MD: [address] [place], [place] [address], [place] [address] , Ph. 2017-08-25 2017-08-25 Gray Thorne [facility] [place] - [id number] [address] [place] [address] 00:00:00 00:00:00 MD Aaron: [facility] [address] [place], Practice - [address], [place] [address] , Ph. 2017-04-21 2017-04-21 Outpatient Jaskaran Yi [facility] [id number] 01:46:00 02:21:00 Jame 12 2017-04-18 2017-04-19 Outpatient Jose [facility] [id number] 13:52:00 10:56:00 Quratulain 11 Ani 2017-02-09 2017-02-09 Outpatient [facility] [id number] 12:02:00 23:59:00 92 2016-08-27 2016-08-27 Outpatient Jim Trujillo [facility] [id number] 13:00:00 15:43:00 Hoon 10 2016-07-10 2016-08-08 Outpatient Gege Randle, 2.16.840. [id number]. [id number] 11:10:00 23:59:00 Norman Robby [id number] 5.46 2016-07-27 2016-07-30 Outpatient Red, [facility] M[facility] [id number] 11:11:00 15:59:00 Khris 08 B K 2016-05-26 2016-06-24 Outpatient Gege Randle, 2.16.840. 2.16.840.1. [id number] 11:47:00 23:59:00 Norman Bustamante [id number] 5.46 2016-03-07 2016-03-07 Outpatient Naomi Mendezt [facility] [id number] 12:37:00 17:38:00 Phil 07 2016-02-18 2016-02-18 Outpatient HoganWilfred bills [facility] [id number] 11:28:00 16:50:00 Jeny 06 2014-11-22 2014-11-22 Outpatient Steven, MHIE MHIE [id number] 10:57:00 13:10:00 Kristen Bustamante 05 2014-08-14 2014-08-17 Outpatient Obi, MHIE MHIE [id number] 07:18:00 20:44:00 Abilio Francois 2014-05-09 2014-05-13 Outpatient Vlad, MHIE MHIE [id number] 02:58:00 14:05:00 Radha Coates 2014-05-08 2014-05-09 Outpatient Jaskaran Yi MHIE MHIE [id number] 18:15:00 03:03:00 Jame 03 2014-02-07 2014-02-09 Outpatient Lacy MHIE MHIE [id number] 07:11:00 15:01:00 Yady wilkinson 02 2013-11-29 2013-11-29 Outpatient Cliff Oleary JUJU JUJU [id number] 03:59:00 05:18:00 Steve 01 2013-07-18 2013-07-21 Outpatient JOSE ARMANDO JUJU [id number] [facility] 11:14:00 17:02:00 l [facility] l Results Test Description Test Time Test Comments Results Result Comments Source CHEM PANEL 2017-04-19 3.7 [facility] 10:10:00 CHEM PANEL 2017-04-19 2.1 [facility] 10:10:00 ELECTROLYTES 2017-04-19 11.5 [facility] 10:10:00 ELECTROLYTES 2017-04-19 140 [facility] 10:10:00 ELECTROLYTES 2017-04-19 92 [facility] 10:10:00 ELECTROLYTES 2017-04-19 12 [facility] 10:10:00 ELECTROLYTES 2017-04-19 0.78 [facility] 10:10:00 ELECTROLYTES 2017-04-19 106 [facility] 10:10:00 ELECTROLYTES 2017-04-19 8.4 [facility] 10:10:00 ELECTROLYTES 2017-04-19 24 [facility] 10:10:00 ELECTROLYTES 2017-04-19 108 [facility] 10:10:00 ELECTROLYTES 2017-04-19 3.5 [facility] 10:10:00 HEMATOLOGY 2017-04-19 1.06 [facility] nn 10:10:00 HEMATOLOGY 2017-04-19 10:10:00 Test Item Value Reference Range Interpretation Comme nts PT (test code = PT) 14.0 s 12.0-14.7 [facility] JmenluwCJRGKVOPRK8216-49-73 10:10:00 Test Item Value Reference Range Interpretation Comments PTT (test code = PTT) 31.1 s 22.9-35.8 [facility] DymsyrkZHBROIXVQY3869-94-77 10:10:52344Jvlenpfk HermannHEMATOLOGY 2017-04-19 10:10:004.55[facility] IwwdbtnXVCLRPQEXQ8132-54-34 10:10:0084.4[facility] HimiysjGKYXICOPYM5835-02-36 10:10:0014.6[facility] RbcnrrrZVIPGOFMCA0142-16-21 10:10:00 Test Item Value Reference Range Interpretation Comments MCH (test code = MCH) 28.0 pg 27.0-31.0 [facility] BhlupgwZGGNLKKKWQ4814-90-14 10:10:0033.2[facility] HermannHEMATOLOGY 2017-04-19 10:10:005.9[facility] NlfmsavZDGNNBGKCS8894-10-49 10:10:0038.4[facility] BpuwkaiFEYEDYRGUA2501-98-78 10:10:0012.8[facility] YmaxttgQTWDQMJPVP8978-02-17 10:10:008.2[facility] HermannANEMIA RZUIU2676-36-22 22:50:45940Tawhlqiv Lucien ANEMIA ZYKCY0109-76-40 22:50:3218.6[facility] CraknyjITYHFQ8438-77-72 22:50:3213 [facility] WzeawknSPBHEL0858-73-10 22:50:3257Mem[facility] YtnlfxuMHAQZB6304-20-38 22:50:323.80[facility] CntbfftPJQDUL8423-42-89 22:50:3295[facility] HermannLIPIDS 2017-04-18 22:50:3225[facility] PuqzsfsEBDMIZ2354-49-78 22:50:3263[facility] SPECIAL JOCQEVCRJ4105-56-96 22:50:326.2[facility] HermannCARDIAC ZAONGMF6736-02-16 21:20:00<0.02[facility] HermannCARDIAC SWGASVB8486-80-09 21:20:21337Xymiasak HermannCARDIAC AZKKXTO2321-87-43 21:20:001.2[facility] HermannCARDIAC ENZYMES 2017-04-18 21:20:000.5[facility] HermannCHEM LKKNM2322-66-69 21:20:19150Lhgitdyr HermannCHEM VGIYV7108-42-09 21:20:004.0[facility] HermannCHEM MBJFJ7163-70-56 21:20:0010Mem[facility] HermannCHEM UBUDX3393-49-41 21:20:000.9[facility] HermannCHEM ZADDO8299-15-86 21:20:008.7[facility] HermannCHEM HZTSR9184-20-76 21:20:0026 [facility] HermannCHEM VBOBB5034-40-46 21:20:05240Aktpqesk HermannCHEM PANEL 2017-04-18 21:20:0030[facility] HermannCHEM EVLYL7218-72-48 21:20:003.7[facility] HermannCHEM EPGXH0993-36-23 21:20:007.7[facility] HermannCHEM RPKQI4562-35-53 21:20:000.4[facility] HermannCHEM NBSGD4365-26-96 21:20:0069[facility] HermannCHEM TJNKT3534-08-98 21:20:0029[facility] HermannCHEM UICYN2697-56-52 21:20:0010.0 [facility] HermannCHEM KUTCS0050-93-13 21:20:007[facility] HermannCHEM PANEL 2017-04-18 21:20:0092Mem[facility] HermannCHEM LECVF3442-89-78 21:20:79732Xlqcivbp HermannCHEM DATGT4432-90-61 21:20:004.0[facility] HermannCHEM IASVN6385-06-78 21:20:000.67[facility] CzndqwsRKMLXMHATZ7053-37-46 21:20:00 Test Item Value Reference Range Interpretation Comments PTT (test code = PTT) 31.8 s 22.9-35.8 [facility] AexgavdBHBXHHZZFD3567-63-71 21:20:008.6[facility] HermannHEMATOLOGY 2017-04-18 21:20:0014.8[facility] IiejqaaUAHSMLKVYF1404-67-22 21:20:0039.8[facility] BezjpkdUQSTTQWMLT3075-14-92 21:20:0033.7[facility] AgtgukmTJHXSXDNZG6398-93-69 21:20:0083.2[facility] NaixocxJXWNYUZGAJ2468-00-27 21:20:00 Test Item Value Reference Range Interpretation Comments MCH (test code = MCH) 28.0 pg 27.0-31.0 [facility] TwwarpeXRJTLMPBYN5395-95-70 21:20:0013.4[facility] HermannHEMATOLOGY 2017-04-18 21:20:006.6[facility] ZshefgaZDRARKROPD7852-42-00 21:20:004.79[facility] LmqzjhvYMEDLNXUKZ5704-11-11 21:20:45992Vzaxxflz ZkjfcknOFZSBROAIA7185-27-07 21:20:001.00[facility] VtgstllTLQQCYAKAH5473-69-42 21:20:00 Test Item Value Reference Range Interpretation Comments PT (test code = PT) 13.4 s 12.0-14.7 [facility] LzakkstLXCZKNFVZP3598-98-82 21:20:000.7[facility] HermannHEMATOLOGY 2017-04-18 21:20:001.3[facility] BnbkrikWBMYXBTGOX7397-03-08 21:20:000.2[facility] ScbznkgFPYPBWJRDQ7997-66-82 21:20:003.0[facility] DmysjyrHGDNQIXXUW7408-56-04 21:20:0011.3[facility] QopoijhBJWQKCTROW5140-88-87 21:20:004.3[facility] LRRXXBNMXO9722-21-14 21:20:000.5[facility] VfkvurkZQCGXIUSZN0375-85-92 21:20:00 65.4[facility] TysibgxVKODYXIETG8506-04-54 21:20:0019.8[facility] HermannURINE AND HJNRQ7596-59-20 21:20:00Negative (04/18/17 4:20 PM)[facility] AND AZVPE1376-64-87 21:20:00Negative *NA*(04/18/17 4:20 PM)[facility] AND RDBHQ1160-27-30 21:20:00Negative (04/18/17 4:20 PM)[facility] AND EMYHF3291-49-42 21:20:00Small *ABN*(04/18/17 4:20 PM)[facility] AND PIYPM4539-79-48 21:20:00Light Yellow *NA*(04/18/17 4:20 PM)[facility] AND MXRMR2886-92-18 21:20:006.0[facility] HermannURINE AND FYNXU7368-72-36 21:20:001.009[facility]annUR[facility] AND VHVXS8434-61-10 21:20:00Clear (04/18/17 4:20 PM)[facility] AND RKDMU2416-64-06 21:20:004[facility] HermannURINE AND AALKL4855-84-29 21:20:006[facility] HermannCARDIAC GVVXSBS1282-70-40 19:52:00 2.0[facility] HermannCARDIAC OVMCQKI8860-91-63 19:52:00<0.02[facility] CARDIAC PRNAYDJ6039-55-13 19:52:61356Zcuixtvq HermannCARDIAC XNLVACM3922-85-12 19:52:000.6[facility] HermannCHEM EBDDV7295-89-69 19:52:001.2[facility] HermannCHEM HXWLO8065-54-46 19:52:003.4[facility] HermannCHEM SIQBT8138-29-04 19:52:0014 [facility] HermannCHEM EXLXA1226-90-52 19:52:21048Wesfcfyf HermannCHEM PANEL 2016-08-27 19:52:18524Lfogtwtm HermannCHEM MHELK0517-60-24 19:52:008.3[facility] HermannCHEM NWSWB7706-90-35 19:52:0030[facility] HermannCHEM JIMTZ0449-79-51 19:52:004.0[facility] HermannCHEM MWKPD5778-19-12 19:52:007.4[facility] HermannCHEM CMZRQ3837-72-36 19:52:000.4[facility] HermannCHEM XTEVO5878-41-42 19:52:0071 [facility] HermannCHEM TTTTE1702-46-29 19:52:009.7[facility] HermannCHEM PANEL 2016-08-27 19:52:0022Mem[facility] HermannCHEM KZTNK3454-55-95 19:52:0018[facility] HermannCHEM VSSLO8847-00-69 19:52:0097Mem[facility] HermannCHEM SYBEA1236-49-48 19:52:0012Mem[facility] HermannCHEM ZVIMV8668-93-18 19:52:000.84[facility] HermannCHEM TNUZF1374-73-95 19:52:74062Jknhigxp HermannCHEM OFCOY3366-73-47 19:52:003.7 [facility] HermannDRUG UYFDEO5729-82-23 19:52:00See Note *NA*(08/27/16 1:52 PM) [facility]annDRUG RBYGRK5439-70-87 19:52:00Negative *NA*(08/27/16 1:52 PM) [facility]annDRUG GGJGCL8123-15-48 19:52:00Negative *NA*(08/27/16 1:52 PM) [facility]annDR[facility] IVSULE5263-95-38 19:52:00Negative *NA*(08/27/16 1:52 PM) [facility]annDRUG DGAEDH6081-50-77 19:52:00Negative *NA*(08/27/16 1:52 PM) [facility]annDR[facility] VZHDYX1131-90-71 19:52:00Negative *NA*(08/27/16 1:52 PM) [facility]annDR[facility] DPYEKL1431-93-56 19:52:00Negative *NA*(08/27/16 1:52 PM) [facility]annDR[facility] AXFJZZ0594-18-15 19:52:00Negative *NA*(08/27/16 1:52 PM) [facility] LewmaqiLKRJUINSGI4402-30-80 19:52:006.3[facility] HermannHEMATOLOGY 2016-08-27 19:52:004.80[facility] DtxpmzeJJPRPPQNRM6720-87-54 19:52:0040.2[facility] FkgyabhJADXLCNZOR3828-20-18 19:52:0013.4[facility] UuwejupYYZFEJKEFF5990-16-59 19:52:0083.9[facility] LyjhcimOAKOFKKNXM3865-88-08 19:52:0033.4[facility] LGQVGQILEA1200-61-99 19:52:008.8[facility] JpbxhyrJXTRLRNXAD0389-98-08 19:52:60581 [facility] HzkuxlyCAEIWQZGYA9262-06-99 19:52:0014.8[facility] HermannHEMATOLOGY 2016-08-27 19:52:00 Test Item Value Reference Range Interpretation Comments MCH (test code = MCH) 28.0 pg 27.0-31.0 [facility] XbdfiacWOKGXUXPRC6710-51-35 19:52:004.0[facility] HermannHEMATOLOGY 2016-08-27 19:52:001.5[facility] QxnoqhhZSETVNMOTO1197-40-23 19:52:000.2[facility] IancjdtLBJCTFQFGT6472-89-51 19:52:000.6[facility] WnkjniaHZTVOHKNNA5514-87-24 19:52:009.1[facility] AmrxuthBOXPBKHWMV5109-61-57 19:52:000.5[facility] CSRXDSDYPE0480-94-36 19:52:002.5[facility] ZiyxrxjDJWCOQFMLD4441-56-84 19:52:00 24.5[facility] CrjxbmxMMTXSGTEIO3417-10-85 19:52:0063.4[facility] HermannURINE AND TITUV4958-69-07 19:52:00Negative (08/27/16 1:52 PM)[facility]UR[facility] AND SNLST5083-68-53 19:52:002.0[facility]annUR[facility] AND GKABB7503-60-16 19:52:00 Negative (08/27/16 1:52 PM)[facility]UR[facility] AND VZMPV1212-08-72 19:52:00 Negative *NA*(08/27/16 1:52 PM)[facility] AND QQHXS1612-66-23 19:52:00 Negative (08/27/16 1:52 PM)[facility] AND XGDFX0632-15-59 19:52:00 Test Item Value Reference Range Interpretation Comments UA Spec Grav (test code = UA Spec 1.020 1 Grav) [facility] AND ZKVUB6958-74-30 19:52:00Yellow *NA*(08/27/16 1:52 PM) [facility] DCIDB3474-40-56 19:52:00Clear (08/27/16 1:52 PM) [facility] HRYTS6927-41-58 19:52:00 Test Item Value Reference Range Interpretation Comments UA pH (test code = UA pH) 6.5 1 5.0-8.0 [facility] AND VQTWJ6535-33-47 19:52:00None Seen (08/27/16 1:52 PM) [facility] ZsedsysZCEDGVCAEK4411-97-46 22:25:00<0.003[facility] HermannTOXICOLOGY 2016-07-28 22:25:00<3[facility] HermannDRUG ZBBGMZ2374-35-33 22:20:00Negative *NA*(07/28/16 4:20 PM)[facility]annDRUG OESJOT3845-65-92 22:20:00Negative *NA*(07/28/16 4:20 PM)[facility]annDRUG JUABJG4692-39-20 22:20:00Negative *NA*(07/28/16 4:20 PM)[facility]annDRUG VFZKNU7756-31-62 22:20:00Negative *NA*(07/28/16 4:20 PM)[facility]annDRUG RHHSXH9734-18-91 22:20:00Negative *NA*(07/28/16 4:20 PM)[facility]annDR[facility] MFVJCA4438-50-05 22:20:00Negative *NA*(07/28/16 4:20 PM)[facility]annDR[facility] WJDBEB8508-15-18 22:20:00Negative *NA*(07/28/16 4:20 PM)[facility]annDR[facility] TRPQLS7963-39-58 22:20:00See Note *NA*(07/28/16 4:20 PM)[facility] AND SZDBA1333-62-52 22:20:00None Seen (07/28/16 4:20 PM)[facility] AND EPXCH1192-17-12 22:20:00None Seen (07/28/16 4:20 PM)[facility] WDTHH6095-28-71 22:20:00 Negative (07/28/16 4:20 PM)[facility]UR[facility] AND LVFWY7701-55-72 22:20:00 Negative *NA*(07/28/16 4:20 PM)[facility] BBCDA8011-17-35 22:20:00Negative (07/28/16 4:20 PM)[facility] PTSOI6676-68-55 22:20:001.0[facility]annUR[facility] AND ZTDMR5683-78-70 22:20:00Trace *ABN*(07/28/16 4:20 PM)[facility] TJMFQ8344-00-99 22:20:00 Test Item Value Reference Range Interpretation Comments UA pH (test code = UA pH) 8.0 1 5.0-8.0 [facility] GEMXE7334-34-58 22:20:00Trace *ABN*(07/28/16 4:20 PM) [facility] DPYVH3918-15-44 22:20:00Negative (07/28/16 4:20 PM) [facility] CCYRI9736-80-62 22:20:00Negative (07/28/16 4:20 PM) [facility] VNJAZ6358-75-21 22:20:00Yellow *NA*(07/28/16 4:20 PM) [facility] GSSLD7327-65-69 22:20:00 Test Item Value Reference Range Interpretation Comments UA Spec Grav (test code = UA Spec 1.020 1 Grav) [facility] SYMUU9789-84-90 22:20:00Clear (07/28/16 4:20 PM) [facility] HermannCARDIAC NGCRSLM1648-80-17 17:40:000.4[facility] HermannCARDIAC WQWSHWL7872-25-45 17:40:001.0[facility] HermannCARDIAC XOCCXXW4193-55-66 17:40:00 <0.02[facility] HermannCARDIAC ZARKFNP6671-45-50 17:40:19444Nhczclyk Pfeifer CHEM QULNC6737-06-25 17:40:30119Kuaxbcse HermannCHEM BGIPH4156-53-90 17:40:003.9 [facility] HermannCHEM FFQXN8017-44-45 17:40:008.0[facility] HermannCHEM PANEL 2016-07-27 17:40:0011[facility] HermannCHEM HTGTY3087-52-01 17:40:01474Gbhpaptr HermannCHEM PZEGY1220-17-98 17:40:000.76[facility] HermannCHEM ZYNIH5639-74-56 17:40:0093[facility] HermannCHEM EIPLV3532-06-55 17:40:000.3[facility] HermannCHEM XLQNF4964-21-41 17:40:0029[facility] HermannCHEM SYODI4807-13-77 17:40:0091 [facility] HermannCHEM PWTWU4181-52-92 17:40:0016.4[facility] HermannCHEM PANEL 2016-07-27 17:40:0014Mem[facility] HermannCHEM DNQNF7287-60-00 17:40:001.0[facility] HermannCHEM FJTLM5526-87-90 17:40:004.1[facility] HermannCHEM DLTVX7015-67-93 17:40:008.3[facility] HermannCHEM TYKGF6551-77-31 17:40:0027[facility] HermannCHEM FGYYB8140-87-40 17:40:0024[facility] HermannCHEM YFRHM9794-59-43 17:40:003.4 [facility] HermannCHEM VSDCI8756-63-81 17:40:22487Daginbri HermannHEMATOLOGY 2016-07-27 17:40:0070.6[facility] OmtkfucBPRSIPPMXM1434-35-29 17:40:007.7[facility] OevvaidQUTFHUBOTN5168-13-81 17:40:0019.1[facility] PtnqmprFBWYIRVHOI1299-29-23 17:40:001.1[facility] RoquyiyLXHMVQFOSU3120-42-67 17:40:001.5[facility] RGHIATJCCB3507-96-35 17:40:000.1[facility] BxhcmvjYYIQHQLLVB2530-39-63 17:40:000.1 [facility] UyxpkfdOJVBZTRNMZ0872-21-41 17:40:004.2[facility] HermannHEMATOLOGY 2016-07-27 17:40:000.5[facility] YhbalagRVFCXTJABY5293-99-50 17:40:001.1[facility] BwrjftzRZLKRNOWMC7243-18-50 17:40:00 Test Item Value Reference Range Interpretation Comments PT (test code = PT) 13.6 s 12.0-14.7 [facility] DtneploXHKQBJYAEF6319-45-49 17:40:001.02[facility] HermannHEMATOLOGY 2016-07-27 17:40:00 Test Item Value Reference Range Interpretation Comments PTT (test code = PTT) 28.3 s 22.9-35.8 [facility] DbzssooHRXGGYAVIG0900-02-04 17:40:008.0[facility] HermannHEMATOLOGY 2016-07-27 17:40:35366Chbdeqcw MziqvstCHEDUEXPLY0702-10-74 17:40:0014.5[facility] UojcaxlBINLJLZLFN0800-44-15 17:40:006.0[facility] LbdczdkBPHBMSYSPM2330-87-05 17:40:0084.1[facility] CtmhuxhBSXIFORMFQ4614-01-31 17:40:0042.3[facility] CXWGBBBMEF0101-33-01 17:40:0014.3[facility] RyofiudFHPTREGEYO6976-87-45 17:40:00 5.03[facility] MzmpszlULQMWOODTP4313-51-56 17:40:00 Test Item Value Reference Range Interpretation Comments MCH (test code = MCH) 28.5 pg 27.0-31.0 [facility] RyjfukwAYBCBUBKSF0981-05-19 17:40:0033.9[facility] HermannLIPIDS 2016-07-27 17:40:005.52[facility] JbxxhzeOBRNBZ6098-27-16 17:40:0023[facility] KrsnbuhDLNJEK9711-35-58 17:40:34634Qsulpsuw GmbuztuSDLVQZ5464-19-33 17:40:92326 [facility] DzbukgoEJTBCE8251-17-21 17:40:0042[facility] ZkumpgjSNOFQD3991-51-52 17:40:0062[facility] HermannSPECIAL JMOWSHUVD5348-56-87 17:40:005.9[facility] HermannCHEM TUNJG2950-26-63 21:19:0077[facility] HermannCHEM IOPNL2881-83-50 21:19:0030[facility] HermannCHEM FNRWD2651-58-53 21:19:30145Qbuebvdi HermannCHEM PIPRQ3328-76-20 21:19:002.7[facility] HermannCHEM DAKNK8249-97-85 21:19:83449 [facility] HermannCHEM CHQKA4553-19-37 21:19:008.1[facility] HermannCHEM PANEL 2016-03-07 21:19:0011.7[facility] HermannCHEM IYGEO7328-87-13 21:19:007[facility] HermannCHEM RDSVO6995-77-74 21:19:001.27[facility] HermannCHEM OPHGB8403-45-18 21:19:90659Ossqssmu KbcxryzZBZLSWWJCQTP9389-82-88 21:19:002.7[facility] DRUG YFJXFU6035-51-37 18:30:00Negative *NA*(03/07/16 1:30 PM)[facility] HermannDRUG SXWPZG7731-94-30 18:30:00Negative *NA*(03/07/16 1:30 PM)[facility] HermannDRUG ENBDGD8788-29-85 18:30:00Negative *NA*(03/07/16 1:30 PM)[facility] HermannDRUG ZXYWSK1196-05-04 18:30:00Negative *NA*(03/07/16 1:30 PM)[facility] HermannDRUG VOVHRK7821-75-08 18:30:00Negative *NA*(03/07/16 1:30 PM)[facility] HermannDRUG YCMPTC1068-24-85 18:30:00Negative *NA*(03/07/16 1:30 PM)[facility] HermannDRUG LTWQIZ3196-73-66 18:30:00See Note *NA*(03/07/16 1:30 PM)[facility] HermannDRUG PPHTRZ0766-96-95 18:30:00Negative *NA*(03/07/16 1:30 PM)[facility] QNRCM9129-07-89 18:30:00None Seen (03/07/16 1:30 PM)[facility] SXYEB5935-43-99 18:30:00Performed (03/07/16 1:30 PM)[facility] PWNAO4601-73-56 18:30:00Negative (03/07/16 1:30 PM)[facility] STOOL 2016-03-07 18:30:00Positive *ABN*(03/07/16 1:30 PM)[facility] STOOL 2016-03-07 18:30:002.0[facility] GDMWZ6488-48-08 18:30:00Negative (03/07/16 1:30 PM)[facility] JPZRO3460-42-17 18:30:00Moderate *ABN*(03/07/16 1:30 PM)[facility] WHLHY4643-00-05 18:30:00Negative (03/07/16 1:30 PM)[facility] ICHZU6161-32-47 18:30:00Clear (03/07/16 1:30 PM)[facility] PCNXN4907-55-38 18:30:00 Test Item Value Reference Range Interpretation Comments UA pH (test code = UA pH) 5.5 1 5.0-8.0 [facility] TQEUL9587-04-95 18:30:00>=1.030 *ABN*(03/07/16 1:30 PM)[facility] WOCFCUP7738-16-80 18:25:000.3[facility] PRGGAJN7908-70-63 18:25:001.5[facility] ADXPTQZ4826-99-28 18:25:00 501[facility] XVZRYAP9282-94-06 18:25:008[facility] VUEKDOL1913-18-98 18:25:000.06[facility] AWYZLXE8076-88-40 18:25:00 7[facility]CHE[facility] GAYJN6337-15-61 18:25:000.9[facility]annCHE[facility] PANEL 2016-03-07 18:25:0089[facility] JZPMR8445-07-96 18:25:32549Huduvwie HermannCHEM YZWDU0258-97-99 18:25:000.9[facility] SYVFD1948-82-96 18:25:003.9[facility] CFXWN3697-50-73 18:25:0052[facility] UEJFD4315-29-56 18:25:003.7[facility] RPGMQ2826-89-00 18:25:007.6 [facility] ADAEE4443-28-91 18:25:0013.5[facility]annCHE[facility] PANEL 2016-03-07 18:25:009.1[facility] XOGEL8314-74-02 18:25:005[facility] EKMEO4120-78-56 18:25:0064[facility] JOJNF1427-98-95 18:25:001.47[facility] BHTCW2783-48-12 18:25:62927Iqgjbume HermannCHEM XGLVT6571-23-50 18:25:0030[facility] AMANS4612-14-23 18:25:002.5 [facility] ZPZLP3989-34-98 18:25:0099[facility]CHE[facility] PANEL 2016-03-07 18:25:007[facility] JFKWE5239-97-62 18:25:98834Dsigysno ImzcskyNZTUKEAYKE8214-35-41 18:25:005.7[facility] KlrofwmUUHWPDOASH4960-65-05 18:25:001.3[facility] EnhotgcGAIGCRXSOL5561-31-22 18:25:000.1[facility] Pfeifer NPBWUGYOZM1554-14-82 18:25:000.1[facility] FkgsunkWBYWDPIWBJ8627-95-12 18:25:000.7 [facility] ZdpizjtMHLRQRNXHZ1426-12-81 18:25:0070.8[facility]annHEMATOLOGY 2016-03-07 18:25:000.9[facility] DlyicpaBRXJBYMQNR1726-26-65 18:25:001.5[facility] MfltyiqNTQTBQBFVF8262-66-90 18:25:0010.7[facility] NmzpsveZCOZZAOHBL2833-35-79 18:25:0016.3[facility] KpbbtwhUKCGZAVQRF4265-14-14 18:25:0014.2[facility]ien IVMRXRYLTB3337-89-95 18:25:0043.6[facility] IumpcvgVOKXHVSELZ2042-56-08 18:25:00 32.6[facility] LqvebjaUMLRTYQMPQ0383-28-82 18:25:0015.1[facility]annHEMATOLOG[facility] 2016-03-07 18:25:0087.6[facility] FbwoltiJXUGFVVELI6832-68-71 18:25:00 Test Item Value Reference Range Interpretation Comments MCH (test code = MCH) 28.6 pg 27.0-31.0 [facility] AifdsztLPVTCUGUIQ5137-27-67 18:25:008.0[facility]MATOLOGY 2016-03-07 18:25:004.97[facility] QyjnmvdJPUZGVVLBQ5797-33-60 18:25:20594Lvlofucp FpubociDAPUSDNHXP0527-18-71 18:25:008.5[facility]annCARDIAC LSVIVFJ4015-05-82 17:22:000.7[facility] VUARKFQ1668-14-01 17:22:46386Rlvwoqsx Pfeifer CARDIAC PJMTQLY1731-79-53 17:22:005.2[facility]annC[facility] WNFPVBV8115-14-25 17:22:000.02[facility]annCHE[facility] WSNUU8947-88-45 17:22:06060Ggtqxhhg HermannCHEM AAQGZ0853-80-60 17:22:004.2[facility]annCHE[facility] XDVWC4691-03-08 17:22:006 [facility] GWFCS4676-27-58 17:22:000.8[facility]annCHE[facility] PANEL 2016-02-18 17:22:008.2[facility]annCHE[facility] DPWEN0538-21-39 17:22:64648Zhzjynqj HermannCHEM FBUTQ0808-84-54 17:22:0062[facility]annCHE[facility] JBMUK8961-05-80 17:22:0084[facility]annCHE[facility] JMLZJ5771-59-33 17:22:005[facility]annCHE[facility] PYNZA3567-59-41 17:22:000.90[facility]annCHE[facility] WAOUN5851-31-71 17:22:0096 [facility]CHE[facility] KPENP9237-01-98 17:22:64591Spliidog HermannCHEM PANEL 2016-02-18 17:22:004.7[facility]annCHE[facility] KBYTO3255-40-95 17:22:0036[facility]annCHE[facility] YNEAN2408-54-45 17:22:005.7[facility]annCHE[facility] UVDVH7198-28-51 17:22:98668Ihplqtty HermannCHEM XSBPS4371-11-50 17:22:000.6[facility]annCHE[facility] KIHGF7191-61-42 17:22:007.5[facility]annCHEM WVPIC8100-09-28 17:22:003.3 [facility] CmduxyoXFZIRMOEYA7293-72-20 17:22:0062.9[facility]annHEMATOLOGY 2016-02-18 17:22:0022.7[facility] UijpvcgSLDNSMYHVX0137-69-16 17:22:00Normal (02/18/16 12:22 PM)[facility] YcszaicWVQUATNKYO5430-05-19 17:22:00Normal (02/18/16 12:22 PM)[facility] YxdpofhOXOMNWTTKG2029-24-89 17:22:003.9[facility] FLZWVMOWDW8687-71-35 17:22:001.2[facility] TsjvfgnYKWUXCGAMU5912-72-64 17:22:002.7 [facility] GsbfdheSYQKIMMCUM6600-83-94 17:22:0010.5[facility]annHEMATOLOGY 2016-02-18 17:22:000.1[facility] KfjajlcISSRHJMTBG3117-14-92 17:22:000.6[facility] OqqjhcoTAMBNURUGZ6044-92-77 17:22:000.2[facility] KcqtgubHJDIFZZJXW0752-15-56 17:22:001.4[facility] FvlmdjeOJRUERDTST9946-96-58 17:22:006.1[facility] Pfeifer DOPBQWJHND9680-93-71 17:22:0013.0[facility] HgnpbewGCGSRSWLDS9158-47-73 17:22:00 14.4[facility] HkmwbmpOYHLAKIZHM4949-57-13 17:22:0087.9[facility]annHEMATOLOGY 2016-02-18 17:22:0032.8[facility] YimihbzWXADACADYB6414-91-85 17:22:0039.6[facility] TeolwvnJPFGTSRATP0395-96-45 17:22:004.51[facility] FnabhxuXAVXOHRQLK2817-26-86 17:22:76680Owbabdmd PiycujdHZOXSWVVRA2965-55-00 17:22:00 Test Item Value Reference Range Interpretation Comments MCH (test code = MCH) 28.9 pg 27.0-31.0 [facility] WwvxxgdFLNEIPEEUF1634-43-46 17:22:009.5[facility] STOOL 2014-11-22 16:38:00Trace *ABN*(11/22/14 11:38 AM)[facility] 2014-11-22 16:38:00Negative (11/22/14 11:38 AM)[facility] 2014-11-22 16:38:002.0[facility] GINEV5275-74-72 16:38:00Negative (11/22/14 11:38 AM)[facility] WRVMP9692-29-76 16:38:00Negative (11/22/14 11:38 AM)[facility] TBULJ1300-24-94 16:38:00Yellow *NA*(11/22/14 11:38 AM)[facility] EMWBD0504-20-38 16:38:00Clear (11/22/14 11:38 AM)[facility] BGFLM7667-66-41 16:38:00Negative (11/22/14 11:38 AM)[facility] KJZWB0221-22-79 16:38:00 Test Item Value Reference Range Interpretation Comments UA pH (test code = UA pH) 6.5 1 5.0-8.0 [facility] KKSNQ5614-65-75 16:38:00 Test Item Value Reference Range Interpretation Comments UA Spec Grav (test code = UA Spec 1.025 1 Grav) [facility] SJQPT5484-98-89 16:38:00Small *ABN*(11/22/14 11:38 AM) [facility]annCHEM TOPHG2536-77-65 16:30:0077[facility]annCHEM PANEL 2014-11-22 16:30:34607Ckxbamys HermannCHEM ELIPD8350-69-97 16:30:000.4[facility]annCHEM ZVOJZ6907-49-07 16:30:98596Lesknsuv HermannCHEM TEPVL5661-96-26 16:30:0083[facility]annCHEM AHXLK8840-79-60 16:30:004.2[facility]annCHEM XUUML6716-15-80 16:30:008.5[facility]annCHEM YXEFR1859-38-73 16:30:009.0 [facility]annCHE[facility] TSHJF5863-04-94 16:30:0057[facility]annCHEM PANEL 2014-11-22 16:30:0030[facility]annCHEM EEEMW3126-92-80 16:30:30220Dypxscye HermannCHEM WZNTP4753-40-37 16:30:003.6[facility]annCHEM NXMZU1755-91-20 16:30:000.9[facility]annCHEM LCTMR1609-28-52 16:30:008[facility]annCHEM JKVTT0661-95-81 16:30:62086Dvwxtpnc HermannCHEM IVZRV1508-40-37 16:30:0086 [facility]annCHEM IYHAS2007-99-74 16:30:009[facility]annCHEM PANEL 2014-11-22 16:30:004.3[facility]annCHEM PXGKB4163-90-96 16:30:001.0[facility]annCHEM PVWAT0648-21-78 16:30:009.6[facility] NmqtzwbWQWRWMYFCB4413-57-89 16:30:0033.0[facility] SqihmroJJQEITJSFV4536-70-75 16:30:00 Test Item Value Reference Range Interpretation Comments MCH (test code = MCH) 28.5 pg 27.0-31.0 [facility] HvqlrpfGFQALATVUW6818-51-21 16:30:0086.3[facility]annHEMATOLOGY 2014-11-22 16:30:009.3[facility] XfodkfeBHRTLOBWIU1337-62-43 16:30:89992Ngxbmzyh VfsafjcTEYTKJYCSM2627-45-98 16:30:0015.3[facility] NwhjpfuRLKIPENYPQ7521-93-00 16:30:005.09[facility] StzdkieOXARMJTPUA9219-04-65 16:30:0043.9[facility] KNFNSPQCEO4123-04-75 16:30:0014.5[facility] NjkqxhpCDVMZDEKWL5680-99-44 16:30:00 8.2[facility] VmfsxyyQHDJKJUCLB1809-07-31 16:30:000.8[facility]annHEMATOLOGY 2014-11-22 16:30:006.0[facility] ZcgpqryWJAQSMOHHQ9898-72-76 16:30:000.6[facility] CfuazjcOYDPAWQNEV3405-39-95 16:30:001.4[facility] FuovzajUZJWCKLOBK7380-58-67 16:30:000.1[facility] XpftvqhIIVKFKTWDD8465-10-94 16:30:000.1[facility] RKHIUQKFWN3208-33-88 16:30:007.5[facility] XfeoiqpXOPXQOZEQO2279-62-45 16:30:001.5 [facility] JuckaozOYZYDAOFID9325-23-10 16:30:0017.4[facility]annHEMATOLOGY 2014-11-22 16:30:0072.8[facility]annCHEM LWMFQ8817-79-48 10:42:002.2[facility]annCHEM AXTPD9784-62-50 10:42:000.26[facility]annCHEM WLIWD2893-46-39 10:42:0093[facility]annCHEM EDPHR9329-39-93 10:42:0011[facility]annCHEM JVZIU8002-34-43 10:42:71269Rmficqdl HermannCHEM NRNVD8699-00-31 10:42:001.1 [facility]annCHEM XMLYZ9688-42-18 10:42:44429Bjgaxqsy HermannCHEM PANEL 2014-08-17 10:42:33504Ftkkexya HermannCHEM EULJX8321-50-12 10:42:003.9[facility]annCHEM QQHVB5967-34-25 10:42:0024[facility]annCHEM ABVWD6023-08-15 10:42:008.4[facility]annCHEM VUYUA6443-38-26 10:42:0012.9[facility]annCHEM ISJFK1651-63-45 10:42:003.8[facility] SnftmiwLGDFHMHZDM1310-23-58 10:42:000.1 [facility] AnvprruTDAVUDJBTZ9393-41-69 10:42:000.3[facility]annHEMATOLOGY 2014-08-17 10:42:001.1[facility] ItxzjodVKIEOWYHKO3310-07-23 10:42:001.3[facility] KqgotfdEGZEDJGNAT9814-54-41 10:42:007.3[facility] ImmfghrSKFUMBPYES7707-67-42 10:42:000.9[facility] XczfmqxSKWBHYRPYW4943-86-79 10:42:0010.7[facility] WYAEGNLIBY1101-33-09 10:42:0013.2[facility] TfjyfbeNDVBBOJTQT0996-91-88 10:42:00 72.5[facility] DcihqegKIOGBITCGE4031-34-96 10:42:002.7[facility]annHEMATOLOGY 2014-08-17 10:42:0016.2[facility] SoeszobUVFRCSSIVC1623-49-64 10:42:06741Rppzrenn CmiysrdVMSCLRTRWC4454-35-42 10:42:009.6[facility] LevueucYWWZXNWEUR4056-74-93 10:42:0034.8[facility] AdhmiqdCXYLVLIKHP0216-86-43 10:42:0089.3[facility] PRUMZTMBFN5200-77-88 10:42:00 Test Item Value Reference Range Interpretation Comments MCH (test code = MCH) 29.2 pg 27.0-31.0 [facility] NqmxasoNCJRQOANFB4898-35-58 10:42:0032.7[facility]annHEMATOLOGY 2014-08-17 10:42:0011.4[facility] OmkqkucRRJROCTZSR4695-98-05 10:42:0010.0[facility] QdhounyZRDEWOZBGU0487-85-47 10:42:003.89[facility]annCARDIAC ENZYMES 2014-08-16 09:57:55557Upyauquz HermannCARDIAC IHYWQIX0796-28-98 09:57:000.06 [facility]annCARDIAC OHLHWTP0008-60-65 09:57:93319Uowonftx HermannCHEM PANEL 2014-08-16 09:57:002.0[facility]annCHEM JAYWX7599-59-07 09:57:002.8[facility] NrsytzyTUCOAWXNKWSS4005-60-12 09:57:0012.6[facility] BbgddhnQYGTJQVYYJLR2841-33-19 09:57:0093[facility] YncqmyyXWPKBMKTWKZP1913-93-67 09:57:86736Tilyqmbo Lucien CPSDIJDYNWLF3642-70-10 09:57:001.1[facility] CwpxlgtVIJJEJEUIPRX4375-73-71 09:57:0010[facility] OmtvgtkIUROBFCNNMCC9362-30-58 09:57:0024[facility] HEORGHIXJDKQ0083-33-31 09:57:51325Fawnvwiq BvadsznGEFESKSWPWGX9643-12-29 09:57:29429Tmcxcthi KgldfqzRWOJNZQBFSBC5181-40-63 09:57:003.6[facility] OOMRSHRJFXVC6724-04-46 09:57:008.3[facility] MbuuqrbXTMYSRMNVP4759-87-92 09:57:00 8.0[facility] YfdbwpzCAEFBXZGKV0639-48-56 09:57:0081.9[facility]annHEMATOLOGY 2014-08-16 09:57:000.6[facility] UqazigaCFJGCGQHEF5811-28-30 09:57:008.7[facility] QrygbqjAHJQDIMRZS5669-78-36 09:57:000.1[facility] YtxeicbKVRAJGAHLS3719-60-47 09:57:000.1[facility] SupnqybANZZDOIZMR3628-52-59 09:57:0012.1[facility] FMOJKRMVRH0844-93-66 09:57:000.8[facility] MqofwheXCFLSYGFUN8640-21-53 09:57:001.2 [facility] RztigxuXWEKPHEUBH3845-72-06 09:57:001.3[facility]annHEMATOLOGY 2014-08-16 09:57:0014.8[facility] LzpqtwpXNMRKXYCDK7274-00-59 09:57:59605Xfstyplt ZeolwnmNLYZMALJIK7549-01-76 09:57:0016.2[facility] JntmvmbUZUPVLGITH2644-66-71 09:57:00 Test Item Value Reference Range Interpretation Comments MCH (test code = MCH) 28.3 pg 27.0-31.0 [facility] OofotucBQQGTAPWXZ5034-34-71 09:57:0031.7[facility]annHEMATOLOGY 2014-08-16 09:57:009.4[facility] IigmcsbEOZEMHZBRE1576-33-48 09:57:0039.5[facility] UfzfkzpZBIBBZMLRK0068-43-72 09:57:0089.1[facility] JxkrmurDHGCMYHLPI7376-79-40 09:57:0012.6[facility] DmuwkleRFHFLAXALZ3769-31-82 09:57:004.44[facility] MOLECULAR YKPWWIYTJX2329-57-98 05:56:00Negative 12(08/15/14 11:56 PM)[facility]annMOLECULAR ZNKGMPVZNQ3925-80-68 05:56:00Flocked RECREATION ADVISER Swab (08/15/14 11:56 PM) [facility]annMOLECULAR QWDLUVKUQO6705-01-86 05:56:00Negative (08/15/14 11:56 PM)[facility]annMOLECULAR LHQGVRRWSA2296-22-43 05:56:00Flocked RECREATION ADVISER Swab (08/15/14 11:56 PM)[facility]annMOLECULAR INSRKTLWYB5716-88-09 05:56:00 Negative (08/15/14 11:56 PM)[facility]annMOLECULAR SMOIOXFVKQ2073-04-53 05:56:00Negative 13(08/15/14 11:56 PM)[facility]annMOLECULAR DIAGNOSTIC 2014-08-16 05:56:00Flocked RECREATION ADVISER Swab (08/15/14 11:56 PM)[facility]annMOLECULAR YCRFGKBAJN9268-66-28 05:56:00Negative 14(08/15/14 11:56 PM)[facility] MOLECULAR XQZLIGWFWN5070-73-77 05:56:00Negative (08/15/14 11:56 PM)[facility]annMOLECULAR THSRLBTMUU6627-24-36 05:56:00Negative (08/15/14 11:56 PM) [facility]annCARDIAC NORKASV4920-03-61 22:15:23710Vqhqoslf HermannCARDIAC ICTGPPZ4844-40-93 22:15:000.04[facility]annCHEM SFDQW1686-77-80 22:15:001.8 [facility]annCHEM SGVSY4779-59-65 22:15:001.9[facility]annCHEM PANEL 2014-08-15 22:15:0093[facility]annCHEM AXWES0783-62-09 22:15:0096[facility]annCHEM WXFMM0199-46-45 22:15:0012[facility]annCHEM DIWJT7900-24-47 22:15:0022[facility]annCHEM NTXQD1193-09-01 22:15:003.7[facility]annCHEM HSIUS5960-01-81 22:15:49524Wywzsewj HermannCHEM DCNRS5612-31-44 22:15:001.1 [facility]annCHEM QISOE2944-18-36 22:15:65897Izxmklri HermannCHEM PANEL 2014-08-15 22:15:008.5[facility]annCHEM HYEMP7000-09-77 22:15:0013.7[facility] AboekyzXYMKTUEVVX8287-21-11 22:15:000.2[facility] KaytcsoKAXYHEXBLP5445-70-30 22:15:001.4[facility] SguzlycXFJNWXXOFA2366-10-73 22:15:001.1[facility] PZJWQRSLEN4494-06-41 22:15:007.5[facility] OtlmyewKHDVRLLYBI7491-52-75 22:15:001.1 [facility] NnhvyfnIXNNPBPGVD6103-21-11 22:15:000.2[facility]annHEMATOLOGY 2014-08-15 22:15:001.2[facility] YrpnbiwXTDDALWTXQ8308-36-03 22:15:008.6[facility] IlscxrsEAUYHNKEUF4558-84-18 22:15:0081.4[facility] MgczljdQXONLZNLFJ3273-85-00 22:15:0011.4[facility] VpbmsmjWRDKJAQINN2113-01-03 22:15:40365Rkesvusq Pfeifer VGYFVHGSGG2278-18-21 22:15:0016.4[facility] YmaxctaTCHSXQTUDS3209-35-74 22:15:00 9.4[facility] ZgmiondFDMRCXJGNY1293-75-94 22:15:0031.1[facility]annHEMATOLOGY 2014-08-15 22:15:00 Test Item Value Reference Range Interpretation Comments MCH (test code = MCH) 27.8 pg 27.0-31.0 [facility] KnvdsblPEFXDGCIAG0744-55-59 22:15:004.61[facility]annHEMATOLOGY 2014-08-15 22:15:0014.1[facility] AbsjbbqWLUEMJZFLO6627-84-22 22:15:0089.2[facility] MxcoozmBZNCDYXQES0752-99-18 22:15:0041.1[facility] BmyjyrlCIRBTSAPFS5413-78-77 22:15:0012.8[facility]annCARDIAC HGDATKD1603-32-28 17:55:61257Pdvqfcyb HermannCARDIAC JBJVNAS8665-74-21 17:55:000.04[facility] HermannDRUG SCREEN 2014-08-15 10:00:00Negative *NA*(08/15/14 4:00 AM)[facility]annDRUG SCREEN 2014-08-15 10:00:00Negative *NA*(08/15/14 4:00 AM)[facility]annDRUG SCREEN 2014-08-15 10:00:00Negative *NA*(08/15/14 4:00 AM)[facility]annDRUG SCREEN 2014-08-15 10:00:00Negative *NA*(08/15/14 4:00 AM)[facility]annDRUG SCREEN 2014-08-15 10:00:00See Note 9*NA*(08/15/14 4:00 AM)[facility]annDRUG SCREEN 2014-08-15 10:00:00Negative *NA*(08/15/14 4:00 AM)[facility]annDRUG SCREEN 2014-08-15 10:00:00Negative *NA*(08/15/14 4:00 AM)[facility]annDRUG SCREEN 2014-08-15 10:00:00Negative *NA*(08/15/14 4:00 AM)[facility]annBACTERIAL - IAOUJOIB6658-94-40 15:57:31Negative (08/14/14 9:57 AM)[facility] WZSFJ8155-00-26 15:25:00Negative (08/14/14 9:25 AM)[facility] DRETR5725-85-10 15:25:00Negative (08/14/14 9:25 AM)[facility] GLBTY3701-20-39 15:25:00 Test Item Value Reference Range Interpretation Comments UA Spec Grav (test code = UA Spec 1.025 1 Grav) [facility] KRYBH1844-75-24 15:25:00Clear (08/14/14 9:25 AM) [facility] JFVFP3916-90-85 15:25:00 Test Item Value Reference Range Interpretation Comments UA pH (test code = UA pH) 6.0 1 5.0-8.0 [facility] TPUEI8874-75-12 15:25:00Yellow *NA*(08/14/14 9:25 AM) [facility] DSPKX8720-79-26 15:25:00Negative *NA*(08/14/14 9:25 AM) [facility] DKYFN2955-68-80 15:25:00Negative (08/14/14 9:25 AM) [facility] JFUOO7111-55-78 15:25:001.0[facility] AND IVKCX4131-92-16 15:25:00Negative (08/14/14 9:25 AM)[facility] KWMUO1339-54-23 15:25:00None Seen (08/14/14 9:25 AM)[facility] GDYGV2258-66-15 15:25:00None Seen (08/14/14 9:25 AM)[facility] FURSD9994-11-91 15:25:00None Seen (08/14/14 9:25 AM)[facility]annCARDIAC QLFQZTE7326-13-79 14:49:0094[facility]annCARDIAC QOPOWHA4509-49-19 14:49:00 5.6[facility]annCARDIAC QGSTMYI8489-58-27 14:49:000.8[facility] HermannCHEM KUFGC8869-26-80 14:49:001.0[facility] HermannCHEM QMMHF8823-49-50 14:49:003.7 [facility]annCHEM ADIBC0901-18-51 14:49:000.8[facility]annCHEM PANEL 2014-08-14 14:49:008[facility]annCHEM URQAF7425-75-35 14:49:007.5[facility]annCHEM RTWJE2855-28-50 14:49:003.8[facility] HermannCHEM DHNEY6941-34-26 14:49:06962Buyupbxp HermannCHEM HTJNJ2504-77-99 14:49:0033[facility]annCHEM MZVKR8112-00-53 14:49:0027[facility]annCHEM FLOSG6810-17-39 14:49:001.2 [facility]annCHEM ZCWWC0057-91-09 14:49:000.05[facility]annHEMATOLOGY 2014-08-14 14:49:001.01[facility] UybyydlXZYKNEOBST1338-82-79 14:49:00 Test Item Value Reference Range Interpretation Comments PTT (test code = PTT) 31.0 s 22.9-35.8 [facility] RphxxdbWSWPGGLMLW9077-97-65 14:49:00 Test Item Value Reference Range Interpretation Comments PT (test code = PT) 13.3 s 12.0-14.7 [facility] TzestxmVZLKIQKDYY4864-37-48 14:49:001+ *ABN*(08/14/14 8:49 AM)[facility] AvlkoqmGHQYUENLRT7266-45-00 14:49:00Normal (08/14/14 8:49 AM)[facility] VIRAL - EIAZDNBV1451-83-44 14:49:00Negative (08/14/14 8:49 AM)[facility] VIRAL - GKGWXKFU9511-15-35 14:49:00Negative 15(08/14/14 8:49 AM)[facility] CHEM WZLHN3057-93-00 09:38:002.1[facility] HermannCHEM VGPXY6364-26-48 09:38:004.9 [facility]annCHEM RAEYE5306-55-12 09:38:97390Gmlclpig HermannCHEM PANEL 2014-05-13 09:38:0023[facility]annCHEM LXNOR5589-74-70 09:38:009.4[facility]annCHEM RIJGX1384-39-86 09:38:004.9[facility]annCHEM WEVTT3603-52-72 09:38:22243Bwjjrent HermannCHEM JWIJF3370-82-02 09:38:0083[facility]annCHEM CQBPR1368-12-75 09:38:000.8[facility]annCHEM ITENA5040-04-62 09:38:0011 [facility]annCHEM HGZNM9415-01-46 09:38:51412Qtolgqui HermannCHEM PANEL 2014-05-13 09:38:0016.9[facility] TenffxmBPVFFAKTAB5336-53-28 09:38:000.3[facility] CfzleedWFIIYSDGMN2462-55-76 09:38:001.3[facility] ZbcqacoXGVTGTNAGI1629-65-38 09:38:001.2[facility] NwvrcdoVGVIIOEXSC0591-76-17 09:38:006.4[facility] CDFQFQFJEA2702-93-68 09:38:000.4[facility] ArmtujjUUPTKQHFLK0336-29-01 09:38:003.1 [facility] ZkgvomxBXHJVDBZQR6606-31-74 09:38:0069.3[facility] HermannHEMATOLOGY 2014-05-13 09:38:0014.0[facility] UlneeqxXTMMPOBSHX2916-12-07 09:38:0013.2[facility] KbcopcyPIHFPWIWFG0130-68-31 09:38:0012.8[facility] GfjmrviVXAVASMWWA2514-88-92 09:38:004.62[facility] IqturaxWGUJKTKQYE4957-09-78 09:38:0086.0[facility] ZEKEOLRMZA5564-36-21 09:38:0039.7[facility] NqqopabHCLYDTVHYH0773-15-45 09:38:00 222[facility] QgwwmcbALLFAYYOWK9374-69-63 09:38:0014.3[facility]annHEMATOLOGY 2014-05-13 09:38:0032.3[facility] QelubmdNZOPFJDLSG1951-97-18 09:38:00 Test Item Value Reference Range Interpretation Comments MCH (test code = MCH) 27.7 pg 27.0-31.0 [facility] ZlcuibxGVZLGNQUOU4258-90-15 09:38:008.9[facility]annHEMATOLOGY 2014-05-13 09:38:009.2[facility] HermannCARDIAC DQIYZKN3611-88-81 08:01:000.3 [facility]annCARDIAC KPZBEOL5990-06-34 08:01:001.2[facility]annCARDIAC XEHCWZR1530-63-68 08:01:22499Osbwpamw HermannCARDIAC TPSJOXV2016-55-02 08:01:00 <0.02[facility] HermannCHEM IEOWR3438-95-81 08:01:002.2[facility] HermannCHEM TOOUR5895-63-85 08:01:11042Sglzfjwy HermannCHEM HPOMS5298-22-48 08:01:009.1 [facility]annCHEM BCFTT8559-98-27 08:01:0025[facility] HermannCHEM PANEL 2014-05-12 08:01:52939Dltpmrda HermannCHEM QPPEM6297-54-58 08:01:004.1[facility] HermannCHEM MIICT5677-63-36 08:01:37197Kdeeytsb HermannCHEM KXLIL2250-43-62 08:01:000.9[facility] HermannCHEM TXGPN4088-23-31 08:01:006[facility]annCHEM SBRRY8652-33-59 08:01:0089[facility] HermannCHEM JIFMG9059-08-86 08:01:0015.1 [facility]annCHEM FXQGJ1392-06-29 08:01:004.6[facility]annHEMATOLOGY 2014-05-12 08:01:00 Test Item Value Reference Range Interpretation Comments MCH (test code = MCH) 28.3 pg 27.0-31.0 [facility] MbglkblTSOMINNQUO9844-31-48 08:01:0033.1[facility]annHEMATOLOGY 2014-05-12 08:01:0014.2[facility] KorydqeDUFOVBTPTY2244-97-34 08:01:64442Vsidhkdd KbvwwhnQQWZCNVENN2200-14-00 08:01:009.5[facility] UcfbliqOJDSNSYAYC6733-59-46 08:01:008.9[facility] CrzjwezWUVWZRKCSZ7070-22-42 08:01:0012.6[facility] IIWHFZDBLG3196-69-41 08:01:0085.3[facility] ZsrotbbAGAIGOGFFL0353-11-44 08:01:00 38.1[facility] GztvqqaCHXOZZEWQG6512-27-52 08:01:004.47[facility]annHEMATOLOGY 2014-05-12 08:01:000.9[facility] IhnfajjFISGMUTIOL3592-71-28 08:01:001.3[facility] VgtpfcxBGOUZLUJGO4179-91-73 08:01:001.9[facility] JjaaqjqCASOYHREPC3455-25-39 08:01:006.5[facility] GeyasdsPZTQCHADEE9878-94-08 08:01:000.4[facility] PEANEKBLBA2140-92-57 08:01:0072.9[facility] CgosobhZPPNFIMQVO1240-02-85 08:01:00 9.8[facility] OvehbvsTKRQTOGCWC1282-35-61 08:01:0015.0[facility]annHEMATOLOGY 2014-05-12 08:01:000.2[facility] EdqfxtgKOUMRWBJTD7347-11-90 08:01:00Negative *NA*(05/12/14 3:01 AM)[facility]annCARDIAC PXWYCLX0799-63-34 21:43:28062 [facility]annCARDIAC EBHSHHB9331-83-62 21:43:002.2[facility]annCARDIAC VCLFRNV9748-51-45 21:43:000.5[facility]annCARDIAC UBESCHQ1501-88-38 21:43:00 <0.010[facility]annCARDIAC UTVWGUU9640-54-54 21:43:00<0.02[facility]annCARDIAC RPSHANY7300-42-65 16:06:00<0.02[facility]annCARDIAC ENZYMES 2014-05-11 16:06:00<0.010[facility]annCARDIAC AXHBOAD7160-57-07 16:06:00 455[facility]annCARDIAC UFHDPNS8801-08-25 16:06:000.5[facility]annCARDIAC ODSOETP7735-57-75 16:06:002.2[facility] HermannCHEM EKXUO3646-88-07 11:47:412.9 [facility]annCHEM ERTDF1161-39-94 11:47:412.0[facility]annCARDIAC ENZYMES 2014-05-11 11:11:00<0.010[facility] DysrfbzHAVMFQUFHZ1376-18-41 11:11:0011.9 [facility] XyodffjUSGKGIBQKTPO8676-48-78 06:05:0013.9[facility] HermannELECTROLYTES 2014-05-11 06:05:90265Xlbjlikb TfbedzzVRIQYKJVIDIZ1641-55-63 06:05:009[facility] KkrnvgrNGSUTQSMTITM6892-99-31 06:05:65724Lrqrxptn CarooxrSMBABLRZZLUE9471-05-19 06:05:008.6[facility] MnwtmyvFPAHPPSNRVIK3784-82-03 06:05:0025[facility] SXBBGJNCEAOE6924-55-76 06:05:53595Nftwmowe MdqrlvvBBSBZDKIQUYB7560-20-75 06:05:001.0[facility] AumpppxRJNXLNBABKZT5922-65-21 06:05:003.9[facility] HEDGQASBQKIW1908-57-66 06:05:38494Qzrfsfci HzjrucqNXDFSPLFQI8135-55-87 06:05:00 79.8[facility] SfncxnxMFKZEZHRCS9059-42-90 06:05:0010.5[facility]annHEMATOLOGY 2014-05-11 06:05:007.4[facility] UjrfxhlCZELYLGWGQ5782-99-53 06:05:002.0[facility] CfzkoznMRRKNJZIAE1428-26-31 06:05:000.3[facility] WtevlypOOIZCHUGVJ7878-02-10 06:05:001.0[facility] MryqagfWVGAUTDOTH6536-79-11 06:05:007.4[facility] XKGUBUXNOF6778-21-16 06:05:000.7[facility] GurgqvmUKISGINVTV8249-25-40 06:05:000.2 [facility] VcqdsakUGKSFLNDRE2719-94-87 06:05:009.3[facility] HermannHEMATOLOGY 2014-05-11 06:05:35509Jajosqeg TaqgjjmWVIDPSMJWD0903-50-55 06:05:009.3[facility] HscjcscSYSZJZOLRO6307-90-50 06:05:004.19[facility] KyfgupnXETZWEEVEW3537-47-17 06:05:0011.8[facility] KajzbaeWFMRLUUVCP1085-32-50 06:05:0086.3[facility] CBGISRPRDO5720-11-63 06:05:0036.2[facility] FmjmfglIEHVQOPGZL8385-70-54 06:05:00 Test Item Value Reference Range Interpretation Comments MCH (test code = MCH) 28.2 pg 27.0-31.0 [facility] LmitsipNOPEPMOBHB9154-60-19 06:05:0014.6[facility]annHEMATOLOGY 2014-05-11 06:05:0032.7[facility] UsydpttGMKELTWVCV1777-58-10 06:05:002.6[facility] HermannCHEM YIWET9704-72-72 05:35:002.2[facility]annCHEM QJKEW5889-57-65 05:35:003.5[facility]annCHEM PCCKE0882-77-79 05:35:001.0[facility]annCHEM KKYBX0760-14-70 05:35:0014.4[facility]annCHEM BBETD3516-02-14 05:35:009 [facility]annCHEM SXWNY1567-99-58 05:35:23647Znilgbyp HermannCHEM PANEL 2014-05-08 05:35:0075[facility]annCHEM CBMUC9123-32-54 05:35:000.2[facility]annCHEM PSXEH5416-74-10 05:35:67700Lvqcunrx HermannCHEM BEOPB9825-70-88 05:35:40671Iptvqlin HermannCHEM JMKBA2288-89-47 05:35:001.0[facility]annCHEM VCLCY4040-21-54 05:35:003.4[facility]annCHEM CJEBG1654-89-15 05:35:009 [facility]annCHEM FBBHE5402-69-22 05:35:003.6[facility]annCHEM PANEL 2014-05-08 05:35:0023[facility]annCHEM YIWOL8857-12-98 05:35:0023[facility]annCHEM SOHEP3009-02-14 05:35:008.4[facility]annCHEM XEZBV9744-99-72 05:35:24902Txagbqvi HermannCHEM GDVJT3972-24-29 05:35:0027[facility]annCHEM XJYEE1392-00-17 05:35:007.1[facility] AjftzscCURDGMMKGZ4976-45-14 05:35:00 Test Item Value Reference Range Interpretation Comments PTT (test code = PTT) 32.9 s 22.9-35.8 [facility] JqcjdqqHTRXRKMVMO8442-12-10 05:35:00 Test Item Value Reference Range Interpretation Comments PT (test code = PT) 13.0 s 12.0-14.7 [facility] RuovwvuDWWLBHEBJB0221-12-95 05:35:000.98[facility]annHEMATOLOGY 2014-05-08 05:35:00 Test Item Value Reference Range Interpretation Comments MCH (test code = MCH) 28.5 pg 27.0-31.0 [facility] XgmfdesZXCBVENPLQ7984-27-66 05:35:0085.0[facility]annHEMATOLOGY 2014-05-08 05:35:0036.8[facility] ImakmemPZCHLQWMFY8935-95-26 05:35:008.6[facility] HrygxyzBLVBVAITTL3589-81-04 05:35:0012.3[facility] UopbddqAPQQYKATCH3381-72-42 05:35:004.33[facility] OgbwhugKAOIZWHXJC3452-55-65 05:35:39333Hrscwlfw Lucien RMZZJPQPYC8379-54-86 05:35:0014.3[facility] MhdabqyYULUFXSTYU0658-91-68 05:35:00 33.6[facility] YokxgwrGPWDJZECMA3946-64-81 05:35:008.9[facility]annHEMATOLOGY 2014-05-08 05:35:002.5[facility] MktjglxTJTOCHTSQB8922-95-87 05:35:000.5[facility] ExtbouqDLQAEDRHUF9720-64-87 05:35:005.9[facility] UnmkrjoCEBNEJBMVV6265-37-26 05:35:001.7[facility] ZoxxevzLHHGIVUSXN7356-07-81 05:35:000.7[facility] JNSNNTLJLP0613-50-66 05:35:000.2[facility] WkuamzhKHZZIGKFZS0417-95-17 05:35:00 20.2[facility] GnqacnjDXOITKDQBH9241-29-25 05:35:008.2[facility]annHEMATOLOGY 2014-05-08 05:35:0068.6[facility] HermannCARDIAC ZSTIQGY1795-45-34 10:08:64863 [facility]annCHEM CPOAI9672-57-08 10:08:002.0[facility]annCHEM PANEL 2014-02-09 10:08:006.4[facility] GzlbgtrKABWXFOTMOAM7049-53-88 10:08:009.6[facility] CgswpoeGUCXJVIRKTOZ9552-64-92 10:08:44155Mynoxdzi IdkmdidYHZRPTRYPBHP1754-30-31 10:08:008.9[facility] XhqkszcKAUZLRDRDFMP7625-82-70 10:08:001.0[facility] EPPASXRBDSEC0780-59-95 10:08:39551Nypdwnec FckvmtjUENCCODTECUZ6209-93-48 10:08:0032[facility] EpbedwmGQWWHARHBNKE9461-33-21 10:08:52936Btwlgyqv Lucien ZZFMRNPLKILF3231-34-98 10:08:003.6[facility] EfriaujRCKKRKYCOVMP5508-22-90 10:08:0013[facility] NdrxsmnRWULBWYBRHEA9324-86-02 10:08:0091[facility] OCBJLIJFPV5233-85-23 10:08:005.7[facility] NfbvmdjFWCHZTCQTN8421-77-31 10:08:00 4.40[facility] LktagxxAOGLYOISMA0713-92-91 10:08:008.8[facility]annHEMATOLOGY 2014-02-09 10:08:0014.0[facility] YgnhibvZRWRFCJCXT4751-71-06 10:08:28134Gbfiofsh NzrtgykCPKRHAGZQJ0499-28-67 10:08:0085.9[facility] YzkofxgMXQDHOKJIW4029-24-53 10:08:00 Test Item Value Reference Range Interpretation Comments MCH (test code = MCH) 28.1 pg 27.0-31.0 [facility] DzdasqcZYXEXAVGMG7589-70-89 10:08:0032.7[facility]annHEMATOLOGY 2014-02-09 10:08:0012.4[facility] DfzzjwoHPDYJSNUPS3782-35-34 10:08:0037.8[facility] KbhabaaPMJBIVHTPX0322-65-65 10:08:000.8[facility] NohplkbODGKRIGTYT8256-05-79 10:08:000.2[facility] MtuturcVDBSFGNDGH7536-86-74 10:08:001.6[facility] DPZHKDYOFA2172-30-13 10:08:003.2[facility] CbohadjJRMNGGQEBM7168-59-46 10:08:003.0 [facility] ZmsnnsrUHMVGYMBAT2852-62-96 10:08:000.3[facility]annHEMATOLOGY 2014-02-09 10:08:0013.5[facility] ZbmfavmKTBTBXXVWK6942-26-59 10:08:0027.9[facility] EhfkygaJSJPZAUZEX8483-62-46 10:08:0055.3[facility] HermannURINE IIOR0553-37-46 00:43:0023.7[facility]annURINE QUDL4698-67-40 00:43:21505.2[facility] URINE NPGU4749-19-77 00:43:0067[facility]annURINE WNIZ2221-51-48 00:43:000.1 [facility]annCARDIAC EYWQHIW4477-19-25 09:47:91443Gtarhwel HermannCHEM PANEL 2014-02-08 09:47:0083[facility] HermannCHEM UXRKA3001-18-99 09:47:30580Rrpurofk HermannCHEM LWADP7057-61-43 09:47:001.2[facility] HermannCHEM WKPVU4490-08-99 09:47:0018[facility]annCHEM YDCFN9280-31-98 09:47:88124Fliefzcv HermannCHEM IVNBL5586-92-12 09:47:008.9[facility] HermannCHEM EZVNK5617-44-97 09:47:0032 [facility]annCHEM TLQXL4932-14-72 09:47:003.6[facility] HermannCHEM PANEL 2014-02-08 09:47:009.6[facility] HermannCHEM PNRNZ6006-89-45 09:47:59433Ciaholid HermannCHEM TXGEI2672-34-79 09:47:007.8[facility] HermannCHEM NKBBV2047-85-45 09:47:002.2[facility] GbrkfeoCDLTFXEMGB6786-36-91 09:47:89998Cgcwtwrv Pfeifer YOVJSZZYOE3164-55-56 09:47:0033.0[facility] AlxqhuwKLJFRCZYKI1178-91-96 09:47:00 85.4[facility] ThgigzsNYPLWFAIHB3967-71-71 09:47:00 Test Item Value Reference Range Interpretation Comments MCH (test code = MCH) 28.2 pg 27.0-31.0 [facility] GkvpfzqUXHXRAVQCJ3925-96-55 09:47:0039.5[facility]annHEMATOLOGY 2014-02-08 09:47:0013.9[facility] NffrkacAFXQQZVRER9324-62-15 09:47:008.7[facility] ScpkstuRUQREQDNAF7584-72-59 09:47:0013.0[facility] CapjfayXJLPOBJGCS1210-48-48 09:47:004.62[facility] SdedagcJNQSDETSDQ1269-53-93 09:47:005.7[facility] XGWPENHIOS4386-28-59 09:47:0024.2[facility] MjotsnlDFBOIAFXJZ6971-98-32 09:47:00 59.5[facility] LlalzxrXXTKYJWEOG3766-66-12 09:47:000.3[facility]annHEMATOLOGY 2014-02-08 09:47:0012.9[facility] PmzxudvMSQXZBKMWG2790-16-15 09:47:003.1[facility] FppkvnzJSSAPSBUFX9952-59-11 09:47:003.4[facility] IcxdufgFZUJRLEVZK6832-37-77 09:47:001.4[facility] EprgolwUVYAVRTGEE5484-38-57 09:47:000.7[facility] WBRQUGAJPK6324-82-52 09:47:000.2[facility] LHKRM5116-58-16 17:00:00Performed (02/07/14 12:00 PM)[facility] RWBEL2507-00-44 17:00:0051-100 (02/07/14 12:00 PM)[facility] MKYLD1156-83-49 17:00:00None Seen (02/07/14 12:00 PM)[facility] MCESZ3631-16-97 17:00:00Trace *ABN*(02/07/14 12:00 PM)[facility] EUVEV2007-36-14 17:00:00Small *ABN*(02/07/14 12:00 PM)[facility] GRJLF0075-54-43 17:00:000.2[facility] BODHK1368-11-92 17:00:00Negative (02/07/14 12:00 PM)[facility] OCAXR7410-88-07 17:00:00Negative (02/07/14 12:00 PM)[facility] ZDTQX7510-47-78 17:00:00Negative (02/07/14 12:00 PM)[facility] OSMKX6999-15-94 17:00:00Yellow *NA*(02/07/14 12:00 PM)[facility] GIELV6512-37-37 17:00:00Clear (02/07/14 12:00 PM)[facility] RAJEN0706-20-85 17:00:00 Test Item Value Reference Range Interpretation Comments UA Spec Grav (test code = UA Spec 1.025 1 Grav) [facility] ZTCYA8909-05-54 17:00:00 Test Item Value Reference Range Interpretation Comments UA pH (test code = UA pH) 6.0 1 5.0-8.0 [facility] CVPMX6318-09-30 17:00:00Trace *ABN*(02/07/14 12:00 PM) [facility] AIDLV6328-10-04 17:00:00Negative (02/07/14 12:00 PM) [facility]annCARDIAC ODSUGAZ5284-52-39 12:50:000.7[facility]annCARDIAC RHTJSOH0969-22-48 12:50:005.2[facility]annCARDIAC KZMQFFV6854-60-54 12:50:00 <0.02[facility]annCARDIAC DYRVGKL4553-13-96 12:50:90382Vnkzzabg Lucien CHEM DRVQE4838-03-28 12:50:93628Atrwuvdd HermannCHEM KUPCO1454-97-21 12:50:0036 [facility]annCHEM GSMYI8819-75-69 12:50:0041[facility]annCHEM PANEL 2014-02-07 12:50:0095[facility]annCHEM LJMST1117-25-68 12:50:000.8[facility]annCHEM ZILQN5450-89-94 12:50:0027[facility]annCHEM WDCTV3756-79-24 12:50:007.9[facility]annCHEM YDVLD0459-44-88 12:50:009.2[facility]annCHEM RXCSZ7701-62-78 12:50:0040[facility]annCHEM XRYWU1294-64-23 12:50:004.1 [facility]annCHE[facility] EKBFP1436-73-92 12:50:002.4[facility]annCHEM PANEL 2014-02-07 12:50:0026[facility]annCHEM ULXQR8204-34-67 12:50:47045Nkrgfpzd HermannCHEM RFACV3890-53-19 12:50:0098[facility]annCHEM YXTAJ0185-60-26 12:50:003.1[facility]annCHEM HZRWC9235-50-37 12:50:77039Gtdqawvm HermannCHEM UFSTT4180-97-11 12:50:003.8[facility]annCHEM ZYCHS5568-39-81 12:50:0011 [facility]annCHEM SXSOI9661-25-46 12:50:0013.1[facility]annCHEM PANEL 2014-02-07 12:50:001.1[facility] KxoojyeQZKPKTEYNV9251-70-71 12:50:0013.9[facility] SwqwuqlLZUGEQVUKY6159-24-24 12:50:0033.3[facility] CwuwakcMBKJMZBINL8030-51-68 12:50:008.7[facility] TmbisiuTHVKZAHRLZ4560-57-43 12:50:30288Fyuuopwl Lucien CDRECJLJOW0303-65-50 12:50:00 Test Item Value Reference Range Interpretation Comments MCH (test code = MCH) 28.3 pg 27.0-31.0 [facility] MmlcxefKWEGUJZGAB3877-36-25 12:50:0084.9[facility]annHEMATOLOGY 2014-02-07 12:50:0043.9[facility] VppfnnmEDDKHWROPM6270-60-72 12:50:008.4[facility] ZcgqxefXTRMHGJDKP8043-38-28 12:50:005.18[facility] UqrdfdoWUGTDHLPMQ3615-51-82 12:50:0014.6[facility] YwhkrmfLLWXOVBEOC6436-64-87 12:50:000.1[facility] LBGUAVMTZT3887-78-29 12:50:005.7[facility] BruukxlKPIKFGGFVB2671-40-70 12:50:001.5 [facility] IlmksisCOREAIXDXX3528-37-81 12:50:001.0[facility]annHEMATOLOGY 2014-02-07 12:50:001.5[facility] MpsaifdFQSKMSZBWS9449-94-86 12:50:0067.6[facility] UprspvbSTGQKVZYAQ2935-89-43 12:50:0018.4[facility] FfycxxpOXVAYZHMLZ5106-78-04 12:50:0011.9[facility] GuudzxeZUYYTGMIJG9563-73-70 12:50:000.6[facility] HZDSHNJHHI9161-38-94 12:45:56Negative (02/07/14 7:45 AM)[facility]annCHEMISTRY 2013-07-21 11:10:002.3[facility] MtuzrtaGBBONWTMI6472-42-31 11:10:004.4[facility] KtkvdblULHEZPKTU4030-86-96 11:10:0023[facility] TwhvbroUORWZYUUL1384-92-29 11:10:14821Nwuvcqwd WjsxzxfCIUOMMSJD8350-40-44 11:10:0016[facility] VHOCQYXTB6517-96-90 11:10:001.0[facility] FkofxefVYWPTIXKC2711-61-10 11:10:63877 [facility] HhvuzvtIPWBKJKVK3421-92-65 11:10:004.4[facility]annCHEMISTRY 2013-07-21 11:10:41712Gvtvapup CyslohrUWNOHURNU0064-25-89 11:10:0024[facility] CstmcbvWLUKLTBQS5851-13-48 11:10:008.6[facility] VjqsefuFZDFKZIFR8851-88-72 11:10:60348Oqrlizmv NqslzmrAGVWTTWTH1455-11-76 11:10:0012.4[facility] TZIPWKNMHB7207-11-47 11:10:0014.3[facility] IwqkaceIVVYEDGEDB6750-11-00 11:10:00 32.8[facility] MwudyqeNHHZBYTXRP3685-88-86 11:10:00 Test Item Value Reference Range Interpretation Comments MCH (test code = MCH) 28.3 pg 27.0-31.0 N [facility] YzdyxekEIQLOUAMJT5298-20-75 11:10:0086.4[facility]annHEMATOLOGY 2013-07-21 11:10:70307Hllkhanu WflswqpNSLCOGAHZO4282-66-45 11:10:0010.0[facility] IzoelrqXLWWHPNJAN4644-78-76 11:10:0011.1[facility] KeuyveeDRDKURIDXD3517-66-13 11:10:0012.3[facility] KgdivnoPTARYQCAMY5824-31-32 11:10:004.33[facility] TTTZPHLVHK3821-43-34 11:10:0037.4[facility] CdtipgbCKRUADZHXO6788-03-50 11:10:00 7.1[facility] ZeqplvmUCVLBBPRZX4064-82-62 11:10:004.6[facility]annHEMATOLOGY 2013-07-21 11:10:0012.1[facility] PjdhkoxHRBQDQMKYB1800-94-15 11:10:0075.8[facility] WoowefwEENLPLAYBI0871-30-37 11:10:001.3[facility] GcoqhtcIPCLAUSBJW2792-80-04 11:10:008.4[facility] ConmahrMNWGMBFWGP6612-01-92 11:10:000.8[facility] OLSQVBZCWF2282-15-32 11:10:000.5[facility] WvvrevkEZKKYALVFS0273-03-74 11:10:000.0 [facility] PmgjmdvTAESOHNANG3399-81-50 11:10:000.4[facility] HermannCHEMISTRY 2013-07-20 19:12:0019.3[facility] JjqryzlAWUDJTFZK8715-12-56 11:28:002.5[facility] HfxlhfmYILEKWDMP8412-56-42 11:28:38362Uczkywhn JpbhfgsEHXAKCFTC3707-48-98 11:28:0025[facility] ZiiwogySSAHDIIIH1718-41-47 11:28:008.5[facility] IHFUDYVUY3812-99-12 11:28:003.4[facility] HxkuiojZXJOCVRMJ4507-50-53 11:28:007.0 [facility] AegezywDVBRHNQEJ3669-91-65 11:28:0025[facility]annCHEMISTRY 2013-07-20 11:28:0078[facility] MjkusciZDEYVTBGA9686-57-56 11:28:001.0[facility] BwlpycbDHBZFCQBN1109-74-97 11:28:003.8[facility] ZvhbnnxGTHWSQOMN7157-23-42 11:28:72082Fugpmnwn GlnufclOUBOUCKGE8134-79-47 11:28:0024[facility] BKKTBCZWT8426-00-42 11:28:98842Gjwxnllq PtnkgafZBVILWDRP3106-77-35 11:28:0016 [facility] NtybichCWPOQYSJJ3687-46-46 11:28:15024Qfhhwcnb HermannCHEMISTRY 2013-07-20 11:28:000.4[facility] IhnbkduDCTETEBJO9547-44-97 11:28:000.9[facility] WjrlpjdOBXYSQJOZ3141-60-00 11:28:0013.8[facility] KxavejeUWIUJBKND2381-60-44 11:28:0016[facility] LgaotmrHPBPABNTI6234-10-84 11:28:003.6[facility] AJDTKAYZS5885-86-24 11:28:0034[facility] EethlamLTFUVHFPD6580-73-45 11:28:003.4 [facility] UufvdwjXRUYQJHHNI7306-57-33 11:28:001.8[facility]annHEMATOLOGY 2013-07-20 11:28:007.4[facility] KykkregSZJKUCQXYM5292-15-36 11:28:004.8[facility] LazyqotIFFBWYARAP2096-94-59 11:28:000.4[facility] FqlyifpMPCUMYIFLX5873-17-11 11:28:000.5[facility] XtaljaqXCJGHXIWEF1382-63-65 11:28:001.0[facility] JEGMOFWXGG2816-19-05 11:28:000.0[facility] BlzxyzmEHEBDKSPIN9473-16-24 11:28:00 16.5[facility] XgatwsiNWHAAQTBAI6686-76-87 11:28:009.0[facility]annHEMATOLOGY 2013-07-20 11:28:0069.3[facility] EbuhnmyOGSGZPSZLG5635-68-84 11:28:009.9[facility] CnelczdUCXRBEURUB7709-92-74 11:28:20755Jmrtnudi VsveyseNYFCFSHNDX9278-75-90 11:28:0014.1[facility] EjboltbVVGVRTFGZM8741-98-13 11:28:00 Test Item Value Reference Range Interpretation Comments MCH (test code = MCH) 28.0 pg 27.0-31.0 N [facility] GvjztchGLJEVJYHUR9895-50-61 11:28:0031.9[facility]annHEMATOLOGY 2013-07-20 11:28:0087.6[facility] EgyktrrIKQAWXWEKN9853-50-94 11:28:0010.7[facility] WeivhxqLXUTLINYGO2069-02-56 11:28:004.38[facility] JfutvsdHLSITQBLCV9979-74-73 11:28:0012.2[facility] BdhvnizOYSBLJJVHP0157-56-03 11:28:0038.4[facility] VSXDVGOXV7404-96-24 10:40:58Rm Air (07/20/2013 04:40:58)[facility] ISKNHBCLT5521-17-40 10:40:5833[facility] ZjejeerUACSPLUCJ7040-71-33 10:40:587.44 [facility] SndnmhvDAAFVHCLJ5057-07-05 10:40:58-1[facility] HermannCHEMISTRY 2013-07-20 10:40:5822[facility] ByovibsSHREXFMWJ7479-25-51 10:40:5883[facility] CbemrtdOFTQLIXMS9911-52-04 10:40:58Positive (07/20/2013 04:40:58)[facility] ClhbzykQDNWUFXNB5434-40-53 10:40:5837.0[facility] LxyaasaNGRKAOOBY2009-59-53 10:40:58Left Rad (07/20/2013 04:40:58)[facility] DncfnaoGKLQSGULH7153-06-22 10:40:5896.6[facility] NqxzjumRIEIVDXRIX7563-38-28 12:00:000.00[facility] IIGGESQEXJ5651-68-78 12:00:000.10[facility] QfptfsoEFAMEZUJWU9214-23-82 12:00:00 0.01[facility] JxrcgrtFCDXADJCU5862-29-18 11:29:000.03[facility] HermannCHEMISTRY 2013-07-19 11:29:61822Iphneyqd RnfkbljPJACULZQS0838-11-42 11:29:000.5[facility] SrkmysxFUZJWCGAO8581-14-89 11:29:002.2[facility] NmghtniCRPHIKOKM9650-97-31 11:26:87122Lhnylkmw ZpcrdubAMGMSTKVC8961-94-12 11:26:0081[facility] ZPLURCABX3455-86-51 11:26:008.7[facility] KzgbspuNYXZFGIJJ8370-25-85 11:26:0024 [facility] ZtnlzveQJNSYWHSA7029-87-79 11:26:0013.2[facility] HermannCHEMISTRY 2013-07-19 11:26:003.2[facility] EqbouzrEQJNOLVYN8382-08-42 11:26:52628Nxbojcwe UzzpxyiTMPLVMTCN9810-99-97 11:26:001.1[facility] KholsmsCMGRVHWYA7013-73-79 11:26:0014[facility] ZbmxbxrDAEXZTGPQ3266-18-21 11:26:37875Ujcijhfb Pfeifer NQVRRYNOL8870-67-49 11:26:57821Rakvkaqd KxoobjnFEPWCPWEP4030-29-17 11:26:71178 [facility] IkduguvRXZZLYUFO6955-64-97 11:26:0029[facility]annCHEMISTRY 2013-07-19 11:26:62122Zillqair CfscnsdTSZVBCTCK6342-80-79 11:26:0079[facility] UooaiusFYQNPVGYJ5194-91-04 11:26:005.38[facility] YcqoxktVEWNEAPTX5537-28-40 11:26:001.7[facility] IkiuxdvCVCHNGUTP0203-27-97 11:26:003.2[facility] ODKIHYANW9824-44-52 11:26:001.1[facility] MiadfpuCBKHLEKCEU9951-32-58 11:26:0012.6 [facility] YmmeiwtTLLXMWNOPT3243-34-85 11:26:004.49[facility]annHEMATOLOGY 2013-07-19 11:26:009.8[facility] LerwottMSQNXLQEIB0231-84-60 11:26:0032.5[facility] MbohbbxHUVJGLZQKK3382-16-38 11:26:0014.6[facility] RzmfsmuKLTFIEJYJD2460-21-98 11:26:0038.8[facility] GbvkcfqTZADQNVSNQ1578-87-49 11:26:68370Pyfweiim Lucien FVCZFQUVEA7452-62-47 11:26:00 Test Item Value Reference Range Interpretation Comments MCH (test code = MCH) 28.0 pg 27.0-31.0 N [facility] YfwwqtaCOWXWFOVJE0480-16-50 11:26:0086.4[facility]annHEMATOLOGY 2013-07-19 11:26:0015.7[facility] CulkifcTJNIMDNBPE7071-17-30 11:26:008.1[facility] GnoscmmKMIPUZPLGA7852-66-23 11:26:000.3[facility] FffgqtcTETTCQIOJS1578-23-30 11:26:000.1[facility] TyhhfcxJOJFJYVJJN4045-01-66 11:26:001.3[facility] AAFCXGMZBP7146-13-99 11:26:001.7[facility] DmjoavyKYVNMGWLBN8492-64-13 11:26:001.4 [facility] RherpwnAFZKVJPDET9754-32-57 11:26:000.4[facility]annHEMATOLOGY 2013-07-19 11:26:0012.7[facility] JiwuuipRZGQBPCVXZ5923-29-05 11:26:008.8[facility] NivnaryLEZOGJIZJS4017-93-51 11:26:0081.0[facility] RlsdzemQBEIFSIUQN1812-32-41 11:26:00Negative *NA*(07/19/2013 05:26:00)[facility] 2013-07-19 07:00:00Negative 1(07/19/2013 01:00:00)[facility]annMI[facility] - DEYTUJHT6607-29-96 07:00:00Negative 2, 3(07/19/2013 01:00:00)[facility] CFJSNBBPL3362-98-14 06:45:002.1[facility] BzsddafSDXBUIXWI9497-52-83 06:45:000.5 [facility] LmqqicjFIYYQACNA0683-32-99 06:45:000.04[facility] HermannCHEMISTRY 2013-07-19 06:45:45095Hgmijjad EohpjolJHVESFWLV0075-87-52 06:45:30575Guyteaog VenykdoTOJMTWTVA6848-86-44 01:50:001.7[facility] LeqgbmcIXJRIVIEQ2093-20-88 19:38:4335[facility] LhjjrgoWFFMHKRIO1494-74-51 19:38:437.44[facility] QFJWSTTGT5819-15-64 19:38:4393.2[facility] WchqgayXNWKSNIEB2857-11-53 19:38:4365 [facility] TmrqwnuKKCGACHUM7882-52-72 19:38:430[facility] BrkafxuQZBJAONXG1726-89-67 19:38:4324[facility] EhnvmtmQKRTDRNIH1235-92-66 19:38:43Right Ra (07/18/2013 13:38:43)[facility] AtajbueOSXGIAFTX2346-00-52 19:38:43Positive (07/18/2013 13:38:43)[facility] TzhozhjUOITABNAJ1676-15-69 19:38:43Rm Air (07/18/2013 13:38:43)[facility] CfivuubREQEHJSNF3271-05-83 19:38:4337.0[facility] HermannVIRAL - ZOTLPCMT3995-36-76 19:30:08Negative 4(07/18/2013 13:30:08)[facility] HermannVIRAL - NTOCCCFP3708-30-96 19:30:08Negative (07/18/2013 13:30:08)[facility] EVEQDVNVC5060-47-36 19:30:000.8[facility] GnszzjmSPUKTAQTD1379-10-07 19:30:0026 [facility] VvtvorkVBNRDOTNH4722-30-35 19:30:009[facility] OmnltxpACDKRYKUD1160-99-56 19:30:0033[facility] EbmsqwkKZDSSVQOT7417-12-29 19:30:003.5[facility] ULLRTSEZZ5903-31-59 19:30:001.1[facility] GrbvkqoYPXCIBJZD3523-80-60 19:30:49682 [facility] UvjtxnzKEJQJUNPW4241-43-90 19:30:001.0[facility] HermannCHEMISTRY 2013-07-18 19:30:004.0[facility] SszhkkzPTQNJFZVW7572-36-34 19:30:007.5[facility] KtosmaxOXEWNBERR3223-47-11 19:30:000.03[facility] TsgmswqQUCOWJEUQ4557-56-91 19:30:004.4Lashawn Mcgraw
--- NOTE | 2020-05-29 12:54 | RAD REPORT ---
EXAM DESCRIPTION: Marcie Single View05/29/2020 12:47 pm CLINICAL HISTORY: Congestion COMPARISON: January 2020 FINDINGS: The lungs appear clear of acute infiltrate. The heart is borderline enlarged IMPRESSION: No acute abnormalities displayed
[2020-05-29 13:10] LABS: Absolute Lymphocytes (CBC) 0.6 K/uL (0.7-4.9); Basophils % 0.3 % (0-1.3); Hematocrit 38.8 % (39.6-49.0); Lymphocytes % 3.9 % (15.3-44.8); MPV 8.8 fL (7.6-11.3); RBC Red Blood Cell Count 4.75 M/uL (4.33-5.43)
[2020-05-29] MEDS ORDERED: CEFTRIAXONE/SWI 1gm 1 GM/10 ML SYR ONE (13:12)
[2020-05-29] MEDS ORDERED: NA CHLORIDE 0.9% 500 ML ONE (13:12)
[2020-05-29 13:14] LABS: Protime INR 1.06
[2020-05-29] MEDS ORDERED: FUROSEMIDE 40 MG/4 ML VIAL ONE (13:18)
[2020-05-29] MEDS ORDERED: ACETAMINOPHEN 500 MG TAB ONE (13:18)
[2020-05-29 13:23] LABS: ALT/SGPT 29 U/L (12-78); AST/SGOT 21 U/L (15-37); Albumin 3.9 g/dL (3.4-5.0); Alkaline Phosphatase 106 U/L (45-117); Amylase 37 U/L (25-115); BUN Blood Urea Nitrogen 15 mg/dL (7-18); Bicarbonate 24 mmol/L (21-32); Bilirubin Direct 0.2 mg/dL (0-0.2); Bilirubin Total 0.5 mg/dL (0.2-1.0); CKMB Creatine Kinase MB < 1.0 ng/mL (0.3-3.6); Creatine Phosphokinase 328 U/L (39-308); Glucose Level 115 mg/dL (74-106); Lipase 40 U/L (73-393); Potassium 3.5 mmol/L (3.5-5.1); Protein, Total 8.1 g/dL (6.4-8.2); Sodium Level 137 mmol/L (136-145); Troponin (Emerg Dept Use Only) < 0.02 ng/mL (0.0-0.045)
--- NOTE | 2020-05-29 14:36 | ER ---
Nurse's Notes [facility] Name: Shawna Mccall Age: 54 yrs Sex: Male : 1965 Arrival Date: 05/29/2020 Time: 12:[address] Private MD: Diagnosis: Pneumonia due to other infectious organisms, not elsewhere classified Presentation: 05/29 12:18 Chief complaint: Patient states: SOB, coughing since 3 am. + fever now. "Lots of fluid ll1 build up in my chest and stomach.". Coronavirus screen: Client denies travel out of the [place] in the last 14 days. cough unrelated to allergies, difficulty breathing, muscle pain, Client presents with at least one sign or symptom that may indicate coronavirus-19. Standard/surgical mask placed on the client. Ebola Screen: Patient denies travel to an Ebola-affected area in the 21 days before illness onset. Initial Sepsis Screen: Does the patient meet any 2 criteria? HR > 90 bpm. No. Patient's initial sepsis screen is negative. Does the patient have a suspected source of infection? Yes: Productive cough/pneumonia. Risk Assessment: Do you want to hurt yourself or someone else? Patient reports no desire to harm self or others. Onset of symptoms was May 29, 2020. 12:18 Method Of Arrival: Ambulatory ll1 12:18 Acuity: INGRID 3 ll1 Historical: - Allergies: 12:21 No Known Allergies; ll1 - PMHx: 12:21 CHF; Hypertension; Migraines; Seizures; CVA; ll1 - PSHx: 12:21 L arm; ll1 - Immunization history:: Flu vaccine is up to date. - Social history:: Smoking status: Patient reports the use of cigarette tobacco products, smokes one-half pack cigarettes per day. - Family history:: not pertinent. Screenin:12 Abuse screen: Denies threats or abuse. Nutritional screening: No deficits noted. tw2 Tuberculosis screening: No symptoms or risk factors identified. Fall Risk None identified. Assessment: 12:53 General: Appears in no apparent distress. obese, well groomed, Behavior is calm, tw2 cooperative, appropriate for age. Pain: Complains of pain in abdomen. Neuro: Level of Consciousness is awake, alert, obeys commands, Oriented to person, place, time, situation. Cardiovascular: Heart tones S1 S2 Patient's skin is warm and dry. Rhythm is sinus tachycardia. Cardiovascular: Edema is 1+ to left midcalf, left ankle, right midcalf and right ankle. Respiratory: Airway is patent Respiratory effort is even, unlabored, Respiratory pattern is regular, symmetrical, Breath sounds are clear bilaterally. Respiratory: Reports shortness of breath at rest on exertion. GI: Abdomen is round non-distended, obese, Bowel sounds present X 4 quads. Reports lower abdominal pain, upper abdominal pain. : No signs and/or symptoms were reported regarding the genitourinary system. EENT: No signs and/or symptoms were reported regarding the EENT system. Derm:. Musculoskeletal: Range of motion: intact in all extremities. 13:59 Reassessment: Patient appears in no apparent distress at this time. No changes from tw2 previously documented assessment. Patient and/or family updated on plan of care and expected duration. Pain level reassessed. Patient is alert, oriented x 3, equal unlabored respirations, skin warm/dry/pink. 14:55 Reassessment: Patient appears in no apparent distress at this time. No changes from ss previously documented assessment. Patient and/or family updated on plan of care and expected duration. Pain level reassessed. Patient is alert, oriented x 3, equal unlabored respirations, skin warm/dry/pink. 15:32 Reassessment: hospitalist Dr. Villa at nurses station verified diet ADA, pt had tw2 requested to eat at this time, diet tray ordered. 15:38 Reassessment: hospitalist Dr. Villa at bedside at this time. tw2 16:30 Reassessment: Patient appears in no apparent distress at this time. No changes from tw2 previously documented assessment. Patient and/or family updated on plan of care and expected duration. Pain level reassessed. Patient is alert, oriented x 3, equal unlabored respirations, skin warm/dry/pink. 17:19 Reassessment: Patient appears in no apparent distress at this time. No changes from tw2 previously documented assessment. Patient and/or family updated on plan of care and expected duration. Pain level reassessed. Patient is alert, oriented x 3, equal unlabored respirations, skin warm/dry/pink. 17:30 Reassessment: Patient appears in no apparent distress at this time. No changes from tw2 previously documented assessment. Patient and/or family updated on plan of care and expected duration. Pain level reassessed. Patient is alert, oriented x 3, equal unlabored respirations, skin warm/dry/pink. Vital Signs: 12:18 BP 123 / 85; Pulse 116; Resp 19; Temp 101.7; Pulse Ox 99% ; Weight 120.2 kg; Height 5 ll1 ft. 5 in. (165.10 cm); Pain 7/10; 13:55 BP 101 / 63; Pulse 107; Resp 22; Temp 101.1(O); Pulse Ox 95% on R/A; tw2 14:54 BP 116 / 64; Pulse 104; Resp 19; Temp 100.9(O); Pulse Ox 98% on R/A; Pain 6/10; ss 15:41 BP 106 / 82; Pulse 105; Resp 17; Pulse Ox 98% on R/A; tw2 16:40 BP 108 / 79; Pulse 104; Resp 18; Pulse Ox 97% on R/A; tw2 17:18 BP 121 / 69; Pulse 102; Resp 19; Temp 99.1; Pulse Ox 97% on R/A; tw2 12:18 Body Mass Index 44.10 (120.20 kg, 165.10 cm) ll1 14:54 "my back is bothering me" ss Stephanie Coma Score: 14:54 Eye Response: spontaneous(4). Verbal Response: oriented(5). Motor Response: obeys ss commands(6). Total: 15. ED Course: 12:08 Patient arrived in ED. mr 12:21 Triage completed. ll1 12:21 Arm band placed on Patient placed in an exam room, on a stretcher. ll1 12:21 Placed in gown. Bed in low position. Call light in reach. lunchroom monitor on. Pulse ox tw2 on. NIBP on. Pillow given. 12:28 Maximilian Mauro MD is Attending Physician. ma2 12:47 Chest Single View XRAY In Process Unspecified. EDMS 12:53 Initial lab(s) drawn, First set of blood cultures drawn by me. Inserted saline lock: 20 tw2 gauge in left antecubital area, using aseptic technique. Blood collected. 13:02 Kasey Post RN is Primary Nurse. tw2 13:13 Second set of blood cultures drawn. tw2 14:00 Urine collected: clean catch specimen, clear, patrizia colored. jp3 14:22 Urine Culture Sent. tw2 14:31 CT Abd/Pelvis - IV Contrast Only In Process Unspecified. EDMS 14:36 Radames Villa DO is Hospitalizing Provider. ma2 15:40 Pt swabbed for COVID-19. jp3 15:49 COVID-19 Sent. jp3 17:30 No provider procedures requiring assistance completed. Patient admitted, IV remains in tw2 place. Administered Medications: 12:56 CANCELLED (Patient ): Flagyl 500 mg 100 ml IVPB at 200 ml/hr once over 30 mins ma2 12:57 CANCELLED (Duplicate Order): NS 0.9% (30 ml/kg) 30 ml/kg IV at bolus once; Sepsis dc2 Protocol 13:02 Drug: NS 0.9% 500 ml Route: IV; Rate: 1 bolus; Site: left antecubital; ss 14:00 Follow up: Response: No adverse reaction; IV Status: Completed infusion; IV Intake: ss 500ml 13:08 Drug: Lasix 40 mg Route: IVP; Site: left antecubital; tw2 14:21 Follow up: Response: No adverse reaction tw2 13:09 Drug: Acetaminophen 1000 mg Route: PO; tw2 14:54 Follow up: Response: No adverse reaction; Temperature is decreased ss 13:13 Drug: Rocephin 1 grams Route: IV; Rate: calculated rate; Site: left antecubital; tw2 13:18 Follow up: Response: No adverse reaction; IV Status: Completed infusion tw2 13:18 Follow up: Response: No adverse reaction; IV Status: Completed infusion ss 14:50 Drug: Zofran (Ondansetron) 4 mg Route: IVP; Site: left antecubital; ss 15:43 Follow up: Response: No adverse reaction tw2 14:53 Drug: morphine 4 mg {Note: RASS 0.} Route: IVP; Site: left antecubital; ss 15:43 Follow up: Response: No adverse reaction; Pain is decreased; RASS: Alert and Calm (0) tw2 Intake: 14:00 IV: 500ml; Total: 500ml. ss 14:21 extra urinal placed at bedside tw2 Output: 13:59 Urine: 750ml (Voided); Total: 750ml. tw2 14:21 Urine: 200ml (Voided); Total: 950ml. tw2 14:21 extra urinal placed at bedside tw2 Outcome: 14:36 Decision to Hospitalize by Provider. maOzzy 17:26 Admitted to Med/surg accompanied by tech, via wheelchair, room 206, with chart, Report tw2 called to JOSE Paniagua 17:26 Condition: stable 17:26 Instructed on the need for admit. 17:36 Patient left the ED. tw2 Signatures: Dispatcher [employer] EDCT KamronShandra Shelby, RN RN ss Kasey Post RN RN tw2 Maximilian Mauro MD MD ma2 Yonas Rowland 3 Rosalee Singh RN RN ll1 Corrections: (The following items were deleted from the chart) 14:55 14:54 BP 116 / 64; Pulse 104bpm; Resp 19bpm; Pulse Ox 98% RA; Temp 100.9F Oral; [facility] 15:12 13:02 NS 0.9% 500 ml IV at 1 bolus in left antecubital tw2 15:12 14:00 Response: No adverse reaction; IV Status: Completed infusion; IV Intake: 500ml tw2ss 17:19 17:18 BP 112 / 69; Pulse 102bpm; Resp 19bpm; Pulse Ox 97% RA; Temp 99.1F; tw2 tw2
--- NOTE | 2020-05-29 14:37 | EDPHYS ---
Physician Documentation [facility] Name: Shawna Mccall Age: 54 yrs Sex: Male : 1965 Arrival Date: 05/29/2020 Time: 12:[address] Private MD: ED Physician Maximilian Mauro HPI: 05/29 14:07 This 54 yrs old Black Male presents to ER via Ambulatory with complaints of Breathing ma2 Difficulty, Vomiting, Abdominal Pain. 14:33 The patient has shortness of breath at rest. Onset: The symptoms/episode began/occurred ma2 gradually, 1 day(s) ago. Associated signs and symptoms: Pertinent positives: productive cough, Pertinent negatives: dizziness, fever, hemoptysis, nausea. Severity of symptoms: At their worst the symptoms were moderate in the emergency department the symptoms are unchanged. The patient has experienced similar episodes in the past. Historical: - Allergies: 12:21 No Known Allergies; ll1 - PMHx: 12:21 CHF; Hypertension; Migraines; Seizures; CVA; ll1 - PSHx: 12:21 L arm; ll1 - Immunization history:: Flu vaccine is up to date. - Social history:: Smoking status: Patient reports the use of cigarette tobacco products, smokes one-half pack cigarettes per day. - Family history:: not pertinent. ROS: 14:33 Constitutional: Negative for fever, chills, and weight loss. ma2 14:33 All other systems are negative. Exam: 14:33 Constitutional: This is a well developed, well nourished patient who is awake, alert, ma2 and in no acute distress. Head/Face: Normocephalic, atraumatic. Eyes: Pupils equal round and reactive to light, extra-ocular motions intact. Lids and lashes normal. Conjunctiva and sclera are non-icteric and not injected. Cornea within normal limits. Periorbital areas with no swelling, redness, or edema. ENT: Nares patent. No nasal discharge, no septal abnormalities noted. Tympanic membranes are normal and external auditory canals are clear. Oropharynx with no redness, swelling, or masses, exudates, or evidence of obstruction, uvula midline. Mucous membranes moist. Neck: Trachea midline, no thyromegaly or masses palpated, and no cervical lymphadenopathy. Supple, full range of motion without nuchal rigidity, or vertebral point tenderness. No Meningismus. Chest/axilla: Normal chest wall appearance and motion. Nontender with no deformity. No lesions are appreciated. Cardiovascular: Regular rate and rhythm with a normal S1 and S2. No gallops, murmurs, or rubs. Normal PMI, no JVD. No pulse deficits. Abdomen/GI: Soft, non-tender, with normal bowel sounds. No distension or tympany. No guarding or rebound. No evidence of tenderness throughout. Back: No spinal tenderness. No costovertebral tenderness. Full range of motion. MS/ Extremity: Pulses equal, no cyanosis. Neurovascular intact. Full, normal range of motion. Neuro: Awake and alert, GCS 15, oriented to person, place, time, and situation. Cranial nerves II-XII grossly intact. Motor strength 5/5 in all extremities. Sensory grossly intact. Cerebellar exam normal. Normal gait. 14:33 Respiratory: moderate respiratory distress is noted, Respirations: labored breathing, Breath sounds: rales, that are moderate, are located in both bases, Respiratory rate: 20 Vital Signs: 12:18 BP 123 / 85; Pulse 116; Resp 19; Temp 101.7; Pulse Ox 99% ; Weight 120.2 kg; Height 5 ll1 ft. 5 in. (165.10 cm); Pain 7/10; 13:55 BP 101 / 63; Pulse 107; Resp 22; Temp 101.1(O); Pulse Ox 95% on R/A; tw2 14:54 BP 116 / 64; Pulse 104; Resp 19; Temp 100.9(O); Pulse Ox 98% on R/A; Pain 6/10; ss 15:41 BP 106 / 82; Pulse 105; Resp 17; Pulse Ox 98% on R/A; tw2 16:40 BP 108 / 79; Pulse 104; Resp 18; Pulse Ox 97% on R/A; tw2 17:18 BP 121 / 69; Pulse 102; Resp 19; Temp 99.1; Pulse Ox 97% on R/A; tw2 12:18 Body Mass Index 44.10 (120.20 kg, 165.10 cm) ll1 14:54 "my back is bothering me" Stephanie Coma Score: 14:54 Eye Response: spontaneous(4). Verbal Response: oriented(5). Motor Response: obeys ss commands(6). Total: 15. MDM: 12:[address] [facility] 14:33 Differential diagnosis: Anemia pneumonia, pulmonary edema, Sepsis Unstable Angina. The [facility] patient's pulmonary embolism risk score was calculated as follows: No Risks (0 Pts). Data reviewed: vital signs, nurses notes, lab test result(s), EKG. Post IV fluid administration reassessment for Sepsis: Sepsis focused reassessment complete. Heart: Regular rate/rhythm. Lungs: noted to be clear bilaterally. Capillary refill examination performed. Capillary refill noted to be brisk. Peripheral pulse evaluation performed. Radial Peripheral pulses noted to be 3+ normal. Skin examination performed. Skin examination noted to be unremarkable. Current patient vital signs reviewed: Yes. Passive leg raise examination performed. Counseling: I had a detailed discussion with the patient and/or guardian regarding: the historical points, exam findings, and any diagnostic results supporting the discharge/admit diagnosis, the presence of at least one elevated blood pressure reading (>120/80) during this emergency department visit, the need for further work-up and treatment in the hospital. ED course: patient was not given the whole 3ml/kg ivf because he has chf and has pulmonary edema clinically . 05/29 12:32 Order name: Urine Culture [facility] 05/29 12:32 Order name: C-Reactive Protein; Complete Time: 14:02 [facility] 05/29 12:32 Order name: Amylase, Serum; Complete Time: 14:02 [facility] 05/29 12:32 Order name: Basic Metabolic Panel; Complete Time: 14:02 [facility] 05/29 12:32 Order name: Blood Culture Adult (2) [facility] 05/29 12:32 Order name: CBC with Diff [facility] 05/29 12:32 Order name: Ckmb; Complete Time: 14:02 [facility] 05/29 12:32 Order name: CPK; Complete Time: 14:02 [facility] 05/29 12:32 Order name: Lactate; Complete Time: 14:02 [facility] 05/29 12:32 Order name: LFT's; Complete Time: 14:02 [facility] 05/29 12:32 Order name: Lipase; Complete Time: 14:02 [facility] 05/29 12:32 Order name: Procalcitonin; Complete Time: 14:02 [facility] 05/29 12:32 Order name: Protime (+inr); Complete Time: 14:02 [facility] 05/29 12:32 Order name: Ptt, Activated; Complete Time: 14:02 [facility] 05/29 12:32 Order name: Troponin (emerg Dept Use Only); Complete Time: 14:02 [facility] 05/29 12:32 Order name: Urine Microscopic Only [facility] 05/29 12:32 Order name: Chest Single View XRAY; Complete Time: 14:02 [facility] 05/29 13:20 Order name: Manual Differential [facility] 05/29 14:03 Order name: BNP [facility] 05/29 14:06 Order name: Urine Dipstick--Ancillary (enter results) 05/29 14:08 Order name: CT Abd/Pelvis - IV Contrast Only [facility] 05/29 14:43 Order name: Influenza Screen (a \\T\\ B) [facility] 05/29 15:29 Order name: COVID-19 ss 05/29 15:50 Order name: CORONAVIRUS [facility] 05/29 16:21 Order name: Influenza Screen (A [facility] 05/29 17:11 Order name: SARS-COV-2 RT PCR [facility] 05/29 12:32 Order name: Cardiac monitoring; Complete Time: 13:09 [facility] 05/29 12:32 Order name: EKG - Nurse/Tech; Complete Time: 13:03 [facility] 05/29 12:32 Order name: IV Saline Lock - Large Bore; Complete Time: 13:03 [facility] 05/29 12:32 Order name: Labs collected and sent; Complete Time: 13:03 [facility] 05/29 12:32 Order name: O2 Per Protocol; Complete Time: 13:04 [facility] 05/29 12:32 Order name: O2 Sat Monitoring; Complete Time: 13:04 [facility] 05/29 12:32 Order name: Urine Dipstick-Ancillary (obtain specimen); Complete Time: 14:22 [facility] 05/29 15:33 Order name: Diet Ada 1800 Nelson; Complete Time: 15:34 tw2 Administered Medications: 12:56 CANCELLED (Patient ): Flagyl 500 mg 100 ml IVPB at 200 ml/hr once over [address] [facility] 12:57 CANCELLED (Duplicate Order): NS 0.9% (30 ml/kg) 30 ml/kg IV at bolus once; Sepsis ma2 Protocol 13:02 Drug: NS 0.9% 500 ml Route: IV; Rate: 1 bolus; Site: left antecubital; ss 14:00 Follow up: Response: No adverse reaction; IV Status: Completed infusion; IV Intake: ss 500ml 13:08 Drug: Lasix 40 mg Route: IVP; Site: left antecubital; tw2 14:21 Follow up: Response: No adverse reaction tw2 13:09 Drug: Acetaminophen 1000 mg Route: PO; tw2 14:54 Follow up: Response: No adverse reaction; Temperature is decreased ss 13:13 Drug: Rocephin 1 grams Route: IV; Rate: calculated rate; Site: left antecubital; tw2 13:18 Follow up: Response: No adverse reaction; IV Status: Completed infusion tw2 13:18 Follow up: Response: No adverse reaction; IV Status: Completed infusion ss 14:50 Drug: Zofran (Ondansetron) 4 mg Route: IVP; Site: left antecubital; ss 15:43 Follow up: Response: No adverse reaction tw2 14:53 Drug: morphine 4 mg {Note: RASS 0.} Route: IVP; Site: left antecubital; ss 15:43 Follow up: Response: No adverse reaction; Pain is decreased; RASS: Alert and Calm (0) tw2 Disposition: 05/29/20 14:36 Hospitalization ordered by Radames Villa for Inpatient Admission. Preliminary diagnosis is Pneumonia due to other infectious organisms, not elsewhere classified. - Bed requested for Telemetry/MedSurg (Inpatient). - Status is Inpatient Admission. tw2 - Condition is Stable. - Problem is new. - Symptoms are unchanged. Signatures: Dispatcher [employer] EDMS Gris Bosch Shelby, RN RN ss Kasey Post RN RN tw2 Maximilian Mauro MD MD ma2 Rosalee Singh RN RN ll1 Corrections: (The following items were deleted from the chart) 12:56 12:32 Flagyl 500 mg 100 ml IVPB at 200 ml/hr once over 30 mins ordered. nm2 nm2 12:57 12:32 NS 0.9% (30 ml/kg) 30 ml/kg IV at bolus once; Sepsis Protocol ordered. ma2 ma2 13:03 12:32 Accucheck ordered. ma2 tw2 14:38 14:36 Hospitalization Ordered by Radames Villa DO for Inpatient Admission. Preliminary ma2 diagnosis is Severe sepsis without septic shock; Pneumonia due to other infectious organisms, not elsewhere classified. Bed requested for Telemetry/MedSurg (Inpatient). Status is Inpatient Admission. Condition is Stable. Problem is new. Symptoms are unchanged. ma2 17:13 14:38 05/29/2020 14:36 Hospitalization Ordered by Radames Villa DO for Inpatient bd Admission. Preliminary diagnosis is Pneumonia due to other infectious organisms, not elsewhere classified. Bed requested for Telemetry/MedSurg (Inpatient). Status is Inpatient Admission. Condition is Stable. Problem is new. Symptoms are unchanged. nm2 17:36 17:13 05/29/2020 14:36 Hospitalization Ordered by Radames Daisy MENDIETA for Inpatient tw2 Admission. Preliminary diagnosis is Pneumonia due to other infectious organisms, not elsewhere classified. Bed requested for Telemetry/MedSurg (Inpatient). Status is Inpatient Admission. Condition is Stable. Problem is new. Symptoms are unchanged. bd
[2020-05-29 14:48] LABS: Urine Bacteria <20 /HPF (NONE SEEN); Urine Culture Reflex Order NOT NEEDED; Urine RBC <5 /HPF (NONE SEEN)
--- NOTE | 2020-05-29 14:51 | RAD REPORT ---
EXAM DESCRIPTION: CT - Abdomen Pelvis W Contrast - 05/29/2020 2:31 pm CLINICAL HISTORY: Abdominal pain COMPARISON: 2018 TECHNIQUE: Computed axial tomography of the abdomen pelvis was obtained. 100 cc Isovue-300 was admin istered intravenously. Oral contrast was not requested which limits evaluation of bowel. All CT scans are performed using dose optimization technique as appropriate and may include automated exposure control or mA/KV adjustment according to patient size. FINDINGS: Some of the images are degraded by motion artifact The liver, spleen, pancreas, adrenal and kidneys appear unremarkable. There is no evidence of diverticulitis. Normal appendix. Small inguinal hernias contain fat. Small umbilical hernia contains a small portion of small bowel. No dilatation Epidural lipomatosis involves the lumbar spine IMPRESSION: Small umbilical hernia contains a small portion of small bowel.
[2020-05-29] MEDS ORDERED: ONDANSETRON 4 MG/2 ML VIAL ONE (14:59)
[2020-05-29] MEDS ORDERED: MORPHINE 4 MG/ML SYR ONE (14:59)
[2020-05-29] MEDS ORDERED: NA CHLORIDE 0.9% 500 ML IV ONE (16:00)
[2020-05-29] MEDS: NICOTINE 21 MG/PAT TD SCH (16:00)
--- NOTE | 2020-05-29 16:02 | P.HP ---
Certification for Inpatient Patient admitted to: Observation With expected LOS: <2 Midnights Patient will require the following post-hospital care: None Practitioner: I am a practitioner with admitting privileges, knowledge of patient current condition, hospital course, and medical plan of care. Services: Services provided to patient in accordance with Admission requirements found in Title 42 Section 412.3 of the Code of Federal Regulations Patient History Date of Service: 05/29/20 Primary Care Provider: Chappells Adolfo Reason for admission: Cough, shortness of breath and fever History of Present Illness: 54-year-old male with history of systolic CHF, history of CVA in the past, diabetes mellitus type 2, hypertension, and tobacco abuse. Patient reported increasing cough, shortness of breath and fever since yesterday. He reports increased phlegm with a cough. He tried to treated with home remedies. Shortness of breath persisted. He reports that he has pneumonia as every year. Patient denied any abdominal pain, nausea vomiting. He does report some heartburn.He went to the ER for further evaluation. In the ER CT abdomen unremarkable for acute changes. White count 14.9, hemoglobin 12.5. Platelet count 225. Lactic acid normal at 1.4, CK 328. Troponin unremarkable. CRP slight elevated 14. Procalcitonin unremarkable. Sodium 137, potassium 3.5, BUN 15, creatinine 1.1 for her with a GFR of 82. Glucose 115. Chest x-ray showed possible pneumonia bilateral versus pulmonary edema. Patient admitted for further evaluation and treatment. Rc the patient ER, blood pressure around 123/85. Heart rate around 105. Respiratory rate normal. Patient did have a T-max of 101.7. Patient appears stable. Patient is not appear septic at this time. Patient desires to eat. patient admits small keen regularly. Patient takes medication for CHF/hypertension/hyperlipidemia including carvedilol, Bumex, Entresto, and Lipitor. Allergies No Known Allergies Allergy (Verified 10/18/18 23:02) Home medications list reviewed: Yes Home Medications: Azithromycin Tab [Zithromax*] 250 mg PO DAILY #4 tab 10/20/18 Cefuroxime Axetil [Cefuroxime] 500 mg PO BID #14 tablet 10/20/18 - Past Medical/Surgical History Diabetic: Yes -: Systolic CHF -: Hypertension -: Hyperlipidemia -: History CVA -: History of neuropathy -: Diabetes mellitus type 2 diet controlled -: Obesity -: Left hand sx-carpal tunnel surgery Psychosocial/ Personal History: Patient lives at home. He is . - Family History Mother -: Heart disease Father -: Diabetes - Social History Smoking Status: Current every day smoker Counseled patient to stop smoking for: less than 10 minutes Smoking therapy provided: Yes Patient receptive to therapy: Yes Alcohol use: Yes CD- Drugs: No Caffeine use: Yes Place of Residence: Home Review of Systems General: Fever, Chills, As per HPI Eyes: Unremarkable ENT: Nose Congestion, As per HPI Respiratory: Cough, Shortness of Breath, SOB with Excertion, As per HPI Cardiovascular: Unremarkable Gastrointestinal: As per HPI Genitourinary: Unremarkable Musculoskeletal: Pedal edema (Minimal pitting edema to the lower extremities) Integumentary: Unremarkable Neurological: Unremarkable Lymphatics: Unremarkable Physical Examination - Physical Exam General: Alert, In no apparent distress, Oriented x3, Cooperative HEENT: Atraumatic, Normocephalic, Other (Some nasal congestion noted) Neck: Supple Respiratory: Diminished (Slightly diminished to the basis) Cardiovascular: Abnormal pulses (Minimal tachycardia) Gastrointestinal: Normal bowel sounds, Soft and benign, Non-distended, No ascites, No tenderness, No masses, No rebound, No guarding Musculoskeletal: No tenderness, No warmth Integumentary: No erythema, No warmth, No cyanosis, Tenderness/swelling (Minimal pitting edema to the lower extremities bilateral) Neurological: Normal speech, Normal strength at 5/5 x4 extr, Normal tone, Normal affect Lymphatics: No axilla or inguinal lymphadenopathy - Studies Laboratory Data (last 24 hrs) 05/29/20 12:53: PT 12.5, INR 1.06, APTT 31.4 05/29/20 12:53: WBC 14.9 H, Hgb 12.5 L, Hct 38.8 L, Plt Count 225 05/29/20 12:53: Sodium 137, Potassium 3.5, BUN 15, Creatinine 1.14, Glucose 115 H, Total Bilirubin 0.5, AST 21, ALT 29, Alkaline Phosphatase 106, Amylase 37, Lipase 40 L Assessment and Plan - Plan Impression: Cough, shortness of breath secondary to suspected bilateral pneumonia Chronic systolic CHF Hypertension Diabetes mellitus type 2 diet controlled Hyperlipidemia Tobacco abuse Plan: Cough, shortness of breath secondary to suspected bilateral pneumonia: Patient will be admitted for treatment. Will continue with IV antibiotics-Rocephin and Zithromax. Will provide medication for cough. Will need to investigate for COVID and influenza. Oxygen saturations within normal range but will maintain oxygen around 93%. Patient does not appear septic at this time. Pro calcitonin, lactic acid within normal range. May need to hold his Bumex, Entresto, carvedilol pending blood pressure control. Will provide 500 cc bolus of normal saline at this time. Recheck chest x-ray tomorrow. Will continue monitor and reassess. Anticipate improvement over the next 48 hr. Chronic systolic CHF: Patient takes carvedilol, Bumex and Entresto. May need to hold these medication if blood pressure less than 110 systolic. Hypertension: Continue as above Diabetes mellitus type 2 diet controlled: Will provide ADA diet. Will provide Accu-Cheks and monitor closely. Sliding scale in place. Hyperlipidemia: Continue Lipitor Tobacco abuse: Tobacco cessation addressed in detail. Will provide nicotine patch. Discharge Plan: Home Plan to discharge in: 48 Hours - Advance Directives Does patient have a Living Will: No Does patient have a Durable POA for Healthcare: No - Code Status/Comfort Care Code Status Assessed: Yes (Patient is full code) Time Spent Managing Pts Care (In Minutes): 55
[2020-05-29 16:45] LABS: Urine Blood NEGATIVE (NEG); Urine Glucose NEGATIVE (NEG); Urine Protein NEGATIVE (NEG); Urine Specific Gravity 1.015 (1.005-1.030)
[2020-05-29] MEDS: INSULIN -REGULAR HUMAN 50 UNIT/0.5 ML ML SQ SCH ×2 (17:49→21:00)
[2020-05-29] MEDS ORDERED: ONDANSETRON 4 MG/2 ML VIAL IV PRN (17:49)
[2020-05-29] MEDS ORDERED: ALBUTEROL INHALER 60 PUFF/8 GM IH PRN (17:49)
[2020-05-29 18:45] VITALS: BMI 44.1
[2020-05-29] MEDS: carvediloL 25 MG TAB PO SCH (19:29)
[2020-05-29 19:48] LABS: Blood Morphology Comment NOT SEEN (NOT SEEN); Platelet Estimate ADEQ
[2020-05-29] MEDS ORDERED: INFLUENZA VACCINE (for 3y+) 0.5 ML DOSE IMVAC ONE (20:00)
[2020-05-29] MEDS ORDERED: ATORVASTATIN 80 MG TAB PO SCH (21:00)
[2020-05-29] MEDS: SACUBITRIL/VALSARTAN 49/51 MG TAB PO SCH (21:04)
[2020-05-29] MEDS: BENZONATATE 100 MG CAP PO PRN (21:04)
[2020-05-29] MEDS: ACETAMINOPHEN 500 MG TAB PO PRN (21:05)
[2020-05-29] MEDS: ENOXAPARIN 40 MG/0.4 ML SQ SCH (21:06)
[2020-05-29] MEDS: AZITHROMYCIN IV 250 MG in NA CHLORIDE 0.9% 250 ML IVPB SCH (21:09)
[2020-05-30] MEDS: carvediloL 25 MG TAB PO SCH (05:31)
[2020-05-30] MEDS: ACETAMINOPHEN 500 MG TAB PO PRN ×2 (05:37→11:34)
[2020-05-30] MEDS: BENZONATATE 100 MG CAP PO PRN ×2 (05:37→11:34)
[2020-05-30 06:20] LABS: Absolute Lymphocytes (CBC) 1.5 K/uL (0.7-4.9); Basophils % 0.5 % (0-1.3); Hematocrit 34.4 % (39.6-49.0); Lymphocytes % 11.1 % (15.3-44.8); MPV 8.9 fL (7.6-11.3); RBC Red Blood Cell Count 4.16 M/uL (4.33-5.43)
[2020-05-30 06:36] LABS: Magnesium 1.9 mg/dL (1.8-2.4); Potassium 3.2 mmol/L (3.5-5.1); Thyroid Stimulating Hormone 1.68 uIU/mL (0.360-3.740)
[2020-05-30] MEDS: INSULIN -REGULAR HUMAN 50 UNIT/0.5 ML ML SQ SCH ×2 (07:30→11:30)
[2020-05-30] MEDS ORDERED: PANTOPRAZOLE 40MG TABLET PO SCH (07:30)
--- NOTE | 2020-05-30 07:35 | RAD REPORT ---
EXAM DESCRIPTION: Marcie Ferreira And Clement (2 Views)05/30/2020 7:15 am CLINICAL HISTORY: Shortness of breath COMPARISON: May 29, 2020 FINDINGS: The lungs appear clear of acute infiltrate. The heart is borderline enlarged IMPRESSION: No acute abnormalities displayed
--- NOTE | 2020-05-30 07:38 | P.DS ---
Admission Date: 05/29/20 Discharge Date: 05/30/20 Primary Care Provider: Jovana Mata Disposition: ROUTINE DISCHARGE Discharge Condition: GOOD Reason for Admission: Cough, shortness of breath and fever Consultations: none Procedures: COVID Negative CT Ab: FINDINGS: Some of the images are degraded by motion artifact The liver, spleen, pancreas, adrenal and kidneys appear unremarkable. There is no evidence of diverticulitis. Normal appendix. Small inguinal hernias contain fat. Small umbilical hernia contains a small portion of small bowel. No dilatation Epidural lipomatosis involves the lumbar spine IMPRESSION: Small umbilical hernia contains a small portion of small bowel. Follow up CXR: COMPARISON: May 29, 2020 FINDINGS: The lungs appear clear of acute infiltrate. The heart is borderline enlarged IMPRESSION: No acute abnormalities displayed ECHO: Ejection fraction within normal range CT Scan: FINDINGS: A pulmonary embolus is not seen. A thoracic aortic aneurysm is not noted. A pleural effusion is not seen. A pericardial effusion is not seen. Mild bilateral ground-glass opacities IMPRESSION: Negative for a pulmonary embolism. Mild ground-glass opacities within the lungs bilaterally indicative of a mild alveolitis Medical Problem List: Cough, shortness of breath secondary to bilateral alveolitis/bronchitis complicated with chronic systolic CHF Hypertension Diabetes mellitus type 2 diet controlled Hyperlipidemia Tobacco abuse GERD Suspect underlying obstructive sleep apnea Obesity, BMI 44.1 Brief History of Present Illness: 54-year-old male with history of systolic CHF, history of CVA in the past, diabetes mellitus type 2, hypertension, and tobacco abuse. Patient reported increasing cough, shortness of breath and fever since yesterday. He reports increased phlegm with a cough. He tried to treated with home remedies. Shortness of breath persisted. He reports that he has pneumonia as every year. Patient denied any abdominal pain, nausea vomiting. He does report some heartburn.He went to the ER for further evaluation. In the ER CT abdomen unremarkable for acute changes. White count 14.9, hemoglobin 12.5. Platelet count 225. Lactic acid normal at 1.4, CK 328. Troponin unremarkable. CRP slight elevated 14. Procalcitonin unremarkable. Sodium 137, potassium 3.5, BUN 15, creatinine 1.1 for her with a GFR of 82. Glucose 115. Chest x-ray showed possible pneumonia bilateral versus pulmonary edema. Patient admitted for further evaluation and treatment. Rc the patient ER, blood pressure around 123/85. Heart rate around 105. Respiratory rate normal. Patient did have a T-max of 101.7. Patient appears stable. Patient is not appear septic at this time. Patient desires to eat. patient admits small keen regularly. Patient takes medication for CHF/hypertension/hyperlipidemia including carvedilol, Bumex, Entresto, and Lipitor. Hospital Course: Patient presented with cough, shortness of breath and fever. Bilateral pneumonia was suspected but bacterial bronchitis likely. White count slightly elevated. Chest x-ray unremarkable. Patient has history of chronic systolic CHF and takes Entresto, Bumex, and Coreg. The patient was evaluated in the emergency room. Patient given antibiotic therapy with improvement. Pro calcitonin and lactic acid within normal range. The patient was also given some IV fluids but limited due to his CHF. CT scan of the chest was done due to his risk factors to rule out pulmonary embolism. No pulmonary embolism noted. Bilateral papillitis noted. Repeat chest x-ray unremarkable. At discharge patient without significant shortness of breath, cough. Fever improved. At discharge patient may continue with Augmentin 875 mg 1 pill twice daily for 7 days along with prednisone 10 mg daily for 7 days. Patient may have underlying COPD due to history of tobacco abuse. Will also provide Symbicort 2 puffs twice daily and albuterol 2 puffs 3 times a day as needed for shortness of breath. Education on alveolitis/bronchitis/COPD will be provided. Will recommend for the patient to establish care with Pulmonary to further evaluate. For his chronic systolic CHF, this appears stable. Echocardiogram performed. Case discussed with cardiology evaluated the echocardiogram. Ejection fraction now within normal range. Blood pressures have been low. Patient has not required any carvedilol and Bumex. Patient remains on Entresto. At discharge patient without significant edema to the lower extremities and shortness of breath. Patient may continue with his 1500 cc per day fluid restriction and low-salt diet. Recommend to monitor his weight daily. If his weight increases by more than 5 lb he is to contact his PCP or cardiology for further recommendation. At discharge will discontinue carvedilol. Will decrease Bumex to 1 mg daily but may hold if blood pressure less than 110 systolic and no significant edema noted. Recommend to monitor blood pressure daily. Recommend to maintain blood pressure less than 130/80. Patient may continue with Entresto 1 pill twice daily. Will provide education on CHF. Recommend follow up with cardiology in 1-2 weeks to follow up this hospitalization and further address his care. Patient with hypertension. As mentioned above blood pressures have been well c ontrolled off carvedilol. Will recommend to discontinue carvedilol at discharge. Recommend to monitor blood pressure closely. Recommend to maintain blood pressure less than 130/80. If blood pressure remains elevated the niece to contact his PCP or cardiology for further recommendation. This may require initiation of carvedilol. Further adjustment can be done by his PCP or cardiology. Patient with hyperlipidemia. This appears stable. At discharge patient will continue with Lipitor 80 mg daily daily. Patient with diabetes mellitus type 2 diet controlled. Hemoglobin A1c 7.0. Patient will continue with his diet. Recommend to recheck A1c in 3 months to monitor his progress. If blood sugar increases/remains elevated greater than 200 consistently then the patient should follow up with his PCP to consider medication. Education on diabetes will be provided. Patient with tobacco abuse. Tobacco cessation addressed in detail. Will provide nicotine patch to help patient quit. Patient reports some possible GERD. At discharge will start Protonix 40 mg daily. If this persists patient may see GI as an outpatient to further evaluate. Education on GERD will be provided. Patient likely with underlying obstructive sleep apnea. Recommend follow up with pulmonology to further evaluate and potentially treat. Education on obstructive sleep apnea will be provided. Vital Signs/Physical Exam: Temp Pulse Resp BP Pulse Ox 97.8 F 92 H 18 108/64 97 05/30/20 04:00 05/30/20 05:31 05/30/20 04:00 05/30/20 05:31 05/30/20 04:00 General: Alert, In no apparent distress, Oriented x3, Cooperative HEENT: Atraumatic Neck: Supple Respiratory: Clear to auscultation bilaterally, Normal air movement Cardiovascular: Normal pulses, Regular rate/rhythm Gastrointestinal: Normal bowel sounds, Soft and benign, Non-distended, No tenderness, No masses, No rebound, No guarding Musculoskeletal: No erythema, No tenderness, No warmth Integumentary: No tenderness/swelling, No erythema, No warmth, No cyanosis Neurological: Normal speech, Normal strength at 5/5 x4 extr, Normal tone, Normal affect Laboratory Data at Discharge: WBC 13.6 K/uL (4.3-10.9) H 05/30/20 06:03 Hgb 11.2 g/dL (13.6-17.9) L 05/30/20 06:03 Hct 34.4 % (39.6-49.0) L 05/30/20 06:03 Plt Count 202 K/uL (152-406) 05/30/20 06:03 PT 12.5 SECONDS (9.5-12.5) 05/29/20 12:53 INR 1.06 05/29/20 12:53 APTT 31.4 SECONDS (24.3-36.9) 05/29/20 12:53 Sodium 139 mmol/L (136-145) 05/30/20 06:03 Potassium 3.2 mmol/L (3.5-5.1) L 05/30/20 06:03 BUN 16 mg/dL (7-18) 05/30/20 06:03 Creatinine 1.10 mg/dL (0.55-1.3) 05/30/20 06:03 Glucose 122 mg/dL (74-106) H 05/30/20 06:03 Magnesium 1.9 mg/dL (1.8-2.4) 05/30/20 06:03 Total Bilirubin 0.5 mg/dL (0.2-1.0) 05/29/20 12:53 AST 21 U/L (15-37) 05/29/20 12:53 ALT 29 U/L (12-78) 05/29/20 12:53 Alkaline Phosphatase 106 U/L (45-117) 05/29/20 12:53 Amylase 37 U/L (25-115) 05/29/20 12:53 Lipase 40 U/L (73-393) L 05/29/20 12:53 Home Medications: Aspirin [Aspirin EC 81 MG] 81 mg PO DAILY 05/29/20 Atorvastatin Calcium [Lipitor] 80 mg PO DAILY 05/29/20 Sacubitril/Valsartan [Entresto 49 mg-51 mg Tablet] 1 tab PO BID 05/29/20 Albuterol Inhaler [Ventolin Inhaler*] 2 puff IH Q6H PRN #1 hfa.aer.ad 05/30/20 Amoxicillin/Potassium Clav [Augmentin 875-125 Tablet] 1 each PO BID #14 tablet 05/30/20 Budesonide/Formoterol Fumarate [Symbicort 160-4.5 Mcg Inhaler] 2 puff IH BID #1 hfa.aer.ad 05/30/20 Bumetanide [Bumex] 1 mg PO DAILY #30 tab 05/30/20 Nicotine [Nicoderm*] 21 mg TD DAILY #30 patch.td24 05/30/20 Pantoprazole [Protonix Tab*] 40 mg PO ACB #30 tab 05/30/20 predniSONE [Deltasone*] 10 mg PO DAILY #7 tab 05/30/20 New Medications: Amoxicillin/Potassium Clav [Augmentin 875-125 Tablet] 1 each PO BID #14 tablet Bumetanide [Bumex] 1 mg PO DAILY #30 tab predniSONE [Deltasone*] 10 mg PO DAILY #7 tab Nicotine [Nicoderm*] 21 mg TD DAILY #30 patch.td24 Pantoprazole [Protonix Tab*] 40 mg PO ACB #30 tab Budesonide/Formoterol Fumarate [Symbicort 160-4.5 Mcg Inhaler] 2 puff IH BID #1 hfa.aer.ad Albuterol Inhaler [Ventolin Inhaler*] 2 puff IH Q6H PRN #1 hfa.aer.ad PRN Reason: Shortness Of Breath Patient Discharge Instructions: 1. Follow up with PCP in 1 week to follow up this hospitalization. 2. Patient presented with cough, shortness of breath and fever. Bilateral pneumonia was suspected but bacterial bronchitis likely. White count slightly elevated. Chest x-ray unremarkable. Patient has history of chronic systolic CHF and takes Entresto, Bumex, and Coreg. The patient was evaluated in the emergency room. Patient given antibiotic therapy with improvement. Pro calcitonin and lactic acid within normal range. The patient was also given some IV fluids but limited due to his CHF. CT scan of the chest was done due to his risk factors to rule out pulmonary embolism. No pulmonary embolism noted. Bilateral papillitis noted. Repeat chest x-ray unremarkable. At discharge patient without significant shortness of breath, cough. Fever improved. At discharge patient may continue with Augmentin 875 mg 1 pill twice daily for 7 days along with prednisone 10 mg daily for 7 days. Patient may have underlying COPD due to history of tobacco abuse. Will also provide Symbicort 2 puffs twice daily and albuterol 2 puffs 3 times a day as needed for shortness of breath. Education on alveolitis/bronchitis/COPD will be provided. Will recommend for the patient to establish care with Pulmonary to further evaluate. 3. For his chronic systolic CHF, this appears stable. Echocardiogram performed. Case discussed with cardiology evaluated the echocardiogram. Ejection fraction now within normal range. Blood pressures have been low. Patient has not required any carvedilol and Bumex. Patient remains on Entresto. At discharge patient without significant edema to the lower extremities and shortness of breath. Patient may continue with his 1500 cc per day fluid restriction and low-salt diet. Recommend to monitor his weight daily. If his weight increases by more than 5 lb he is to contact his PCP or ca rdiology for further recommendation. At discharge will discontinue carvedilol. Will decrease Bumex to 1 mg daily but may hold if blood pressure less than 110 systolic and no significant edema noted. Recommend to monitor blood pressure daily. Recommend to maintain blood pressure less than 130/80. Patient may continue with Entresto 1 pill twice daily. Will provide education on CHF. Recommend follow up with cardiology in 1-2 weeks to follow up this hospitalization and further address his care. 4. Patient with hypertension. As mentioned above blood pressures have been well controlled off carvedilol. Will recommend to discontinue carvedilol at discharge. Recommend to monitor blood pressure closely. Recommend to maintain blood pressure less than 130/80. If blood pressure remains elevated the niece to contact his PCP or cardiology for further recommendation. This may require initiation of carvedilol. Further adjustment can be done by his PCP or cardiology. 5. Patient with hype rlipidemia. This appears stable. At discharge patient will continue with Lipitor 80 mg daily daily. 6. Patient with diabetes mellitus type 2 diet controlled. Hemoglobin A1c 7.0. Patient will continue with his diet. Recommend to recheck A1c in 3 months to monitor his progress. If blood sugar increases/remains elevated greater than 200 consistently then the patient should follow up with his PCP to consider medication. Education on diabetes will be provided. 7. Patient with tobacco abuse. Tobacco cessation addressed in detail. Will provide nicotine patch to help patient quit. 8. Patient reports some possible GERD. At discharge will start Protonix 40 mg daily. If this persists patient may see GI as an outpatient to further evaluate. Education on GERD will be provided. 9. Patient likely with underlying obstructive sleep apnea. Recommend follow up with pulmonology to further evaluate and potentially treat. Education on obstructive sleep apnea will be provided. Diet: ADA (With 1500 cc per day fluid restriction and low-salt diet) Activity: Ad greg Followup: LONI IVEY [Primary Care Provider] - Time spent managing pt's care (in minutes): 55
[2020-05-30 07:55] LABS: Urine Appearance CLEAR; Urine Bilirubin NEGATIVE (NEG); Urine Blood NEGATIVE (NEG); Urine Color DK YELLOW; Urine Glucose NEGATIVE (NEG); Urine Protein TRACE (NEG); Urine Specific Gravity >=1.030 (1.005-1.030); Urine Urobilinogen 0.2 mg/dL (0.2-1.0)
[2020-05-30 08:00] LABS: Urine Microscopic Reflex NO UMIC
[2020-05-30] MEDS: ENOXAPARIN 40 MG/0.4 ML SQ SCH (08:40)
[2020-05-30] MEDS: SACUBITRIL/VALSARTAN 49/51 MG TAB PO SCH (08:41)
[2020-05-30] MEDS: NICOTINE 21 MG/PAT TD SCH (09:00)
[2020-05-30] MEDS ORDERED: CEFTRIAXONE/SWI 1gm 1 GM/10 ML SYR IVP SCH (09:00)
[2020-05-30] MEDS ORDERED: ASPIRIN EC 81 MG TAB PO SCH (09:00)
[2020-05-30 09:02] VITALS: O2SAT 96
--- NOTE | 2020-05-30 09:13 | RAD REPORT ---
EXAM DESCRIPTION: CT - Chest For Pe Angio - 05/30/2020 9:02 am CLINICAL HISTORY: Shortness of breath COMPARISON: None. TECHNIQUE: Dynamically enhanced axial 3 mm thick images of the chest were obtained during administra tion of <100> mL Isovue 370 IV contrast. Coronal and oblique reconstruction images were generated and reviewed. Exam utilizes a protocol for optimal evaluation of pulmonary arterial tree. Maximum intensity projections 3D imaging was utilized All CT scans are performed using dose optimization technique as appropriate and may include automated exposure control or mA/KV adjustment according to patient size. FINDINGS: A pulmonary embolus is not seen. A thoracic aortic aneurysm is not noted. A pleural effusion is not seen. A pericardial effusion is not seen. Mild bilateral ground-glass opacities IMPRESSION: Negative for a pulmonary embolism. Mild ground-glass opacities within the lungs bilaterally indicative of a mild alveolitis
[2020-05-30] MEDS: AZITHROMYCIN IV 250 MG in NA CHLORIDE 0.9% 250 ML IVPB SCH (09:53)
[2020-05-30 13:25] VITALS: TEMP 96.7
[2020-05-30 16:23] VITALS: BP 112/59
--- NOTE | 2020-05-31 08:29 | CON ---
Date of Consultation: 05/30/2020 Reason For Consultation: Congestive heart failure. History Of Present Illness: Mr. Mccall is a 54-year-old black male, who has a history of hypertens ion, CVA, migraines, seizure disorder, and congestive heart failure. Came in with shortness of breat h, abdominal pain, nausea, and vomiting. Denied any chest pain. Denied any fever or chills. Has martinez d some edema, PND, and orthopnea. When he came in, his blood pressure was normal at 123/85. He had sinus tachycardia and he was febrile at 101.7. Past Medical History: As stated above. Allergies: NONE. Review of Systems: Negative. Social History: Negative. Family History: Noncontributory. Medications: His medications at home include inhalers, Augmentin, aspirin, Lipitor, Bumex, Protonix. He is on Entresto 49/51 mg daily and he is on carvedilol 3.125 b.i.d. as well as prednisone. Physical Examination: Vital Signs: When I saw him, his vital signs were stable. He was afebrile. He was in normal rhythm . He was improved from shortness of breath standpoint. He weighed 265 pounds. HEENT: Negative. Neck: Supple without any lymphadenopathy, JVD, thyromegaly, or bruit. Chest: Reveals some rales on both bases. Cardiac Exam: Revealed a regular rhythm and rate. No murmurs, gallops, or rubs. Abdomen: Benign. Extremities: Revealed no clubbing, cyanosis, or edema. Diagnostic Data: His creatinine was 1.1. He had a white count of 13,000. His troponin was negative . His BNP was negative. Chest x-ray was negative. Impression And Plan: Acute on chronic systolic congestive heart failure exacerbation that has impro ed. He is on Entresto. He is on Coreg. He is on Bumex and we need to continue his present regimen. He can go home and can continue his home medications, have him take an extra Bumex as needed for sh ortness of breath and apparent pedal edema, but I am comfortable with him going home whenever it is o earline with Dr. Villa. We will see him in the office as an outpatient. Rest of his problems including hypertension, migraine headaches, seizure disorder, and history of CVA seem to be stable at this i nt. SAIMA/CARLOS ALBERTO Voice ID: [id number] Report ID: [id number]
--- NOTE | 2020-05-31 08:38 | ECHO ---
HEIGHT: 5 ft 5 in WEIGHT: 265 lb 0 oz DATE OF STUDY: 05/30/[address]: Radames Villa DO 2-DIMENSIONAL: YES M.MODE: YES DOPPLER: YES COLOR FLOW: YES TDS: YES PORTABLE: DEFINITY: BUBBLE STUDY: DIAGNOSIS: DYSPNEA, CONGESTIVE HEART FAILURE CARDIAC HISTORY: CATHERIZATION: NO SURGERY: NO PROSTHETIC VALVE: NO PACEMAKER: NO MEASUREMENTS (cm) DIASTOLIC (NORMALS) SYSTOLIC (NORMALS) IVSd 1.0 (0.6-1.2) LA Diam 3.2 (1.9-4.0) LVEF 62% LVIDd 4.7 (3.5-5.7) LVIDs 3.2 (2.0-3.5) %FS 33% LVPWd 1.2 (0.6-1.2) Ao Diam 3.1 (2.0-3.7) 2 DIMENSIONAL ASSESSMENT: RIGHT ATRIUM: NORMAL LEFT ATRIUM: NORMAL RIGHT VENTRICLE: NORMAL LEFT VENTRICLE: NORMAL TRICUSPID VALVE: NORMAL MITRAL VALVE: NORMAL PULMONIC VALVE: NORMAL AORTIC VALVE: NORMAL PERICARDIAL EFFUSION: NONE AORTIC ROOT: NORMAL LEFT VENTRICULAR WALL MOTION: NORMAL DOPPLER/COLOR FLOW: NORMAL COMMENTS: NORMAL LEFT VENTRICULAR EJECTION FRACTION 55-60%. NORMAL WALL MOTION. TECHNOLOGIST: LISY WALLS
== END 2020-05-30 17:07 | disposition home or self-care (01) | DRG 202 ==
LOC: ER 12:05 → ERHOLD 14:42 → 2ND 17:25
PROVIDERS: ADMIT Family Medicine; ATTEND Family Medicine
DX: J40 Bronchitis, not specified as acute or chronic (principal); I50.23 Acute on chronic systolic (congestive) heart failure; Z68.41 Body mass index [BMI] 40.0-44.9, adult; H46.03 Optic papillitis, bilateral; E66.9 Obesity, unspecified; I11.0 Hypertensive heart disease with heart failure; E11.9 Type 2 diabetes mellitus without complications; E78.5 Hyperlipidemia, unspecified; F17.210 Nicotine dependence, cigarettes, uncomplicated; K21.9 Gastro-esophageal reflux disease without esophagitis; G47.33 Obstructive sleep apnea (adult) (pediatric); J44.9 Chronic obstructive pulmonary disease, unspecified; Z86.73 Personal history of transient ischemic attack (TIA), and cerebral infarction without residual deficits; Z79.82 Long term (current) use of aspirin; Z79.52 Long term (current) use of systemic steroids; Z79.899 Other long term (current) drug therapy; Z79.51 Long term (current) use of inhaled steroids; Z20.828 Contact with and (suspected) exposure to other viral communicable diseases
CPT/HCPCS: 36415; 71045; 71046; 71275; 74177; 80048; 80076; 81003; 81015; 82150; 82550; 82553; 82947; 83036; 83605; 83690; 83735; 83880; 84145; 84443; 84484; 85025; 85610; 85730; 86140; 87040; 87086; 87088; 87804; 93005; 93306; 96361; 96374; 96375; 99285; J0456; J0696; J1650; J1940; J2405; J7040; J7050; Q9967; U0003

== ENCOUNTER 2020-07-28 12:39 | Emergency (ER) | payer OTHER, SELFPAY ==
--- OUTSIDE RECORDS SUMMARY | 2020-07-28 12:42 | XMS REPORT | Clinical Summary ---
:1965 Author Organization [facility] Address [address] [place] [address] Care Team Providers Name Role Phone Kory [...] Health Maintenance Due Date Last Done Comments COVID-19 VACCINE (#1) 1983 COLONOSCOPY SCREENING 11/22/2017 SHINGLES VACCINES (#1) 11/22/2017 INFLUENZA VACCINE 03/02/2020 09/18/2016 Implants Implanted Type Area Hydroelectric Station Chief Device Shelf Model / Identifier Expiration Serial / Date Lot Neuron Select 5f 130 [place] - [id number] Surgical N/A: [employer] [id number] / Implanted: 09/18/2016 at [facility] (Quantity not on file) Implants; N/A / Expanders; Extenders; Surgical Wires Catheter [id number] Reperfusion High Flow Tubing 6.0f 132cm - Log [id number] Surgical N/A: [employer] [id number] / Implanted: 09/18/2016 at [facility] (Quantity not on file) Implants; N/A / Expanders; Extenders; Surgical Wires Catheter Artificial Limb Maker [place] [id number] [facility] - [id number] Surgical N/A: KORINA [id number] / Implanted: 09/18/2016 at [facility] (Quantity not on file) Imp lants; N/A NEUROVASCULAR / Expanders; Extenders; Surgical Wires Results Not on fileafter 07/28/2019 Advance Directives For more information, please contact: [phone] Type Date 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
--- OUTSIDE RECORDS SUMMARY | 2020-07-28 12:50 | XMS REPORT | Continuity of Care Document ---
:1965 Author Organization [employer] Care Team Providers Name Role Phone [employer] Unavailable Un available Problems Problem Status Onset Classification Date Comments Sourc e Date Reported Headache 04/24/2017 017 [facility] GOMES Active 017 [facility] HEADACHE Active 017 [facility] I63.9 STROKE, R58 Active [facility] HEMORRHAGE 017 [facility] STROKE Active Greater 017 [facility] Discharge Diagnosis: 08/30/2016 [facility] Seizure 017 [facility] SEIZURE Active Greater 017 [facility] ACUTE CEREBROVASCULAR Active [facility] ACCIDENT 016 [facility] ARM WEAKNESS, FACIAL Active Greater DROOP 016 [facility] Discharge Diagnosis: 03/10/2016 [facility] Acute viral syndrome 016 [facility] Discharge Diagnosis: 03/10/2016 [facility] Atypical chest pain 016 [facility] Discharge Diagnosis: 03/10/2016 [facility] Acute hypokalemia 016 [facility] CHEST PAIN Active Greate r 016 [facility] Discharge Diagnosis: 02/21/2016 [facility] Syncope 016 [facility] Discharge Diagnosis: 02/21/2016 [facility] Tonic seizure 016 [facility] SYNCOPE Active Greater 016 [facility] Discharge Diagnosis: 11/25/2014 Muscle strain 015 [facility] [facility] Discharge Diagnosis: 11/25/2014 Flank pain 015 [facility] BACK PAIN Active 015 [facility] SHORTNESS OF BREATH Active 015 [facility] OTHER TENOSYNOVITIS OF Active [facility] HAND AND WRIST 014 [facility] HAND EDEMA Active 014 [place]FECTION [place] [facility] ABDOMINAL PAIN Active 014 [place] Discharge Diagnosis: 12/02/2013 Acute bronchitis 014 [place] SPITTING UP BLOOD Active 014 [place] FLU LIKE SYMPTOMS Active 013 [facility] Congestive heart Active Problem 02/11/2018 Mi antione failure (disorder) 013 N euro,[facility], [facility] Cerebrovascular Active Problem 02/11/2018 Mis jai accident (disorder) Neuro,[facility], [facility] Diabetes mellitus Resolved Problem 02/11/2018 M ischer (disorder) Neuro,[facility], [facility] History of - CVA Resolved Problem 02/11/2018 Mi antione (context-dependent N euro, category) [facility], [facility] Hypertensive disorder, Active Problem 02/11/2018 [facility] systemic arterial Ne uro, (disorder) [facility], [facility] Hypercholesterolemia Active Problem 02/11/2018 [place] (disorder) Neuro,[facility], [facility] Obesity (disorder) Active Problem 02/11/2018 [facility] Neuro,[facility], [facility] Seizure (finding) Active Problem 02/11/2018 [place] Neuro,[facility], [facility] Spider bite wound Resolved Problem 02/11/2018 M ischer (disorder) Neuro,[facility], [facility] Syncope (disorder) Resolved Problem 02/11/2018 [facility], [facility] CHF NOS Active [facility] RENAL FAILURE NOS Active [facility] BACTERIAL INFECTION Active [facility] SEPTICEMIA NOS Active [facility] LEFT SIDE - STROKE Active [facility] CEREBRAL INFARCTION, Active [facility] UNSPECIFIED [facility] ALCOHOL Active Prevention HEMORRHAGE, NOT Active [facility] ELSEWHERE [facility] ANESTHESIA OF SKIN Active [facility] Medications Medication Details Route Status Patient Ordering Order Source Instructions Provider Date topiramate 25 MG See Active 04/19/ Oral Tablet Instructions, 2017 [place] [facility] [Topamax] 1 tab PO BID for 7 days, then 2 tab PO BID thereafter, # 70 tab, 0 Refill(s), Pharmacy: [facility]/pharmacy #[id number] clopidogrel 75 MG 75 mg = 1 tab, Active 04/19/ Oral Tablet PO, Daily, # [address] [Plavix] 30 tab, 0 Refill(s), Pharmacy: [facility]/pharmacy #[id number] NIFEdipine 60 mg 60 mg = 1 tab, Active oral tablet, PO, Daily, # 2017 [facility] ast extended release 30 tab, 0 Refill(s), Pharmacy: [facility]/pharmacy #[id number] carvedilol 25 mg 25 mg = 1 tab, Active oral tablet PO, BID, # 60 2016 [place] tab, 0 Refill(s), Pharmacy: [facility]/pharmacy #[id number] atorvastatin 20 mg 20 mg = 1 tab, Active oral tablet PO, Bedtime, # 2016 [place] 30 tab, 0 Refill(s), Pharmacy: [facility]/pharmacy #[id number] Aspirin 325 MG 325 mg = 1 Active Enteric Coated tab, PO, 2017 eas t Tablet Daily, # 100 tab, 0 Refill(s), Pharmacy: [facility]/pharmacy #[id number] sacubitril 97 MG / 1 tab, PO, Active valsartan 103 MG BID, # 60 tab, 2016 [facility] Oral Tablet 0 Refill(s), Pharmacy: [facility]/pharmacy #[id number] heparin sodium, Notes: porcine Inactive [...] (Same No Longer as: BD Active 2016 [facility] Posiflush) atorvastatin Notes: (Same Inactive as: Lipitor) 2016 Levetiracetam 750 Notes: (Same No Longer MG Oral Tablet as:Keppra) Active 2016 [facility] ast [Keppra] carvedilol Notes: Give No Longer with food. Active 2016 [facility] (Same As: Coreg) Frantz's wort 1 tab, PO, Active oral capsule [id number], 0 2016eas t Refill(s) Ibuprofen 800 mg, PO, Active BID, 0 2016 [facility] Refill(s) gabapentin 300 MG 300 mg = 1 Active Oral Capsule cap, PO, TID, 2016 [place] # 90 cap, 1 Refill(s) Hydralazine Notes: (Same No Longer as: Active 2016 [facility] Apresoline) Push over 5 minutes Zofran Notes: (Same No Longer as: Zofran) Active 2016 [facility] MEDICATION WASTE Product Size: 4 mg Product Wasted: ___ mg Tylenol Notes: Do not No Longer exceed 4 Active 2016 [facility] gm/day. (Same as: Tylenol) Tums Notes: (Same No Longer As: Tums) Active 2016 [facility] Calcium Carbonate 500 mg = 200 mg elemental calcium Dose = mg calcium carbonate ( mg elemental calcium) Saline Flush 0.9% 10 ml, Route: Inactive IVP, Drug 2016 [facility] Form: INJ, Dosing Weight 100, kg, PRN, PRN Line Flush, Start date: 04/18/17 17:33:00 CDT, Duration: 30 day, Stop date: 05/18/17 17:32:00 CDT Trazodone Notes: (Same No Longer As: Desyrel) Active 2016 [facility] clopidogrel Notes: (Same No Longer As: Plavix) Active 2016 [facility] Aspirin 325 MG Notes: (Do Not No Longer Enteric Coated Crush) Do not Active 2016 [facility] Tablet crush or chew. Famotidine Notes: (Same No Longer as: Pepcid) Active 2016 [facility] Docusate Notes: (Same No Longer as: Colace) Active 2016 [facility] (Do Not Crush) Aspirin Notes: Take Inactive with food. 2016 [facility] Metoclopramide Notes: (Same Inactive as: Reglan) 2016 [facility] Diphenhydramine Notes: (Same Inactive as: Benadryl) 2016 [facility] Saline Flush 0.9% Notes: (Same No Longer as: BD Active 2016 [facility] Posiflush) Tylenol Notes: Do not Inactive [facility] r exceed 4 2016 gm/day. (Same as: Tylenol) Saline Flush 0.9% Notes: Same Inactive H Greater as: BD 2016 [facility] Posiflush Sterile Levetiracetam 1000 Notes: (Same Inactive Greater MG Oral Tablet as:Keppra) 2015 [place] [facility] [Keppra] Omnipaque 350 Notes: (same Inactive G reater as:Omnipaque 2015 [facility] 350). WASTE: F/P - Black; E - Municipal Trash Bin Levetiracetam 750 750 mg = 1 Active Greater MG Oral Tablet tab, PO, BID, 2015 [facility] [place]ht[facility] [Keppra] # 60 tab, 0 Refill(s) Aspirin 325 MG 325 mg = 1 Active Gre ater Oral Tablet tab, PO, 2015 [facility] Daily, # 50 tab, 0 Refill(s) Aspirin Notes: Take No Longer Greater with food. Active 2015 [facility] Mikien Notes: (Same No Longer [facility] r As: Ambien) Active 2015 [facility] Chlordiazepoxide 25 mg, 1 cap, No Longer Greater Hydrochloride 25 Route: PO, Active 2015 [place] MG Oral Capsule Drug form: CAP, QID, Dosing Weight 97.727, kg, Start date: 07/28/16 17:00:00 RIBBON TIER, Duration: 30 day, Stop date: 08/27/16 13:00:00 RIBBON TIER Keppra 1,000 mg, 100 No Longer Great er mL, Route: Active 2015 [facility] IVPB, Drug form: INJ, Q12H, Dosing Weight 97.727, kg, Priority: NOW, Start date: 07/28/16 14:54:00 RIBBON TIER, Duration: 30 day, Stop date: 08/27/16 9:00:00 RIBBON TIER Levetiracetam 1000 1,000 mg, Inactive Greater MG Oral Tablet Route: PO, 2015 [facility] s [Keppra] Drug form: TAB, Q12H, Dosing Weight 97.727, kg, Priority: NOW, Start date: 07/28/16 14:53:00 RIBBON TIER, Duration: 30 day, Stop date: 08/27/16 9:00:00 RIBBON TIER Benzocaine 15 MG / Notes: Same No [...] 97.727, kg, BID, Start date: 07/28/16 9:00:00 RIBBON TIER, Duration: 30 day, Stop date: 08/26/16 17:00:00 RIBBON TIER Ativan Notes: (Same No Longer [facility] r as: Ativan) Active 2015 Saline Flush 0.9% Notes: Same No Longer Greater as: BD 2015 [facility] Posiflush Sterile Lipitor Notes: (Same No Longer [facility] r As: Lipitor) Active 2015 sacubitril-valsart Notes: (Same No Longer Greater an as: Entresto) 2015 [facility] Avoid in patients with history of angioedema due to BECKY inhibitor or ARB therapy. Do not use concomitantly or within 36 hours of BECKY inhibitors Clonidine Notes: (Same No Longer [facility] Hydrochloride 0.2 As: Catapres) Active 2015 MG Oral Tablet Tylenol Notes: Do not No Longer Great er exceed 4 Active 2015 [facility] gm/day. (Same as: Tylenol) Saline Flush 0.9% Notes: Same No Longer Greater as: BD Active 2015 [facility] Posiflush Sterile 24 HR Nifedipine Notes: (Same No Longer Greater 60 MG Extended as: Adalat CC, Active 2015 ights Release Tablet Procardia XL) Give on empty stomach. Take 1 hour before or 2 hours after meal; "Avoid grapefruit and grapefruit juice". Do not crush carvedilol Notes: Give No Longer [facility] with food. Active 2015 (Same As: Coreg) Keppra Notes: Same as No Longer Gre[place] Malagon Mix Active 2015 with 100 mL [...] (Same Inactive Greater MG / Hydrocodone as: [place] 2015 [facility] ts Bitartrate 5 MG 325/5) Do not Oral Tablet [[place] exceed 4gm/day 5/325] of acetaminophen. Saline Flush 0.9% Notes: Same No Longer Greater as: BD Active 2015 Posiflush Sterile Potassium Chloride 20 mEq = 15 Active H Greater 1.33 MEQ/ML Oral mL, PO, BID, 2015 He ights Solution 1.33 mEq/ml, # 150 mL, [...] Active Greater Oral Tablet PO, Daily 2015 [facility] [Lipitor] 24 HR Nifedipine 60 mg = [...] G.I. Inactive Gre[facility] ter Cocktail = 2015 [facility] antacid with simethicone 22.5 mL - lidocaine viscous 7.5 mL Tylenol Notes: Do not Inactive Greate r exceed 4 2015 [facility] gm/day. (Same as: Tylenol) Sodium Chloride 1,000 mL, 1000 Inactive Greater 0.154 MEQ/ML ml/hr, Infuse 2015 [facility] ts Injectable Over: 1 hr, Solution Route: IV, 1,000, Drug form: INJ, ONCE, Priority: STAT, Dosing Weight 94.545 kg, Start date: 03/07/16 13:04:00 CDT, Duration: 1 doses or times, Stop date: 03/07/16 13:04:00 CDT Saline Flush 0.9% Notes: Same Inactive H Greater as: BD 2015 [facility] Posiflush Sterile Omnipaque 350 Notes: (same Inactive G reater as:Omnipaque 2015 [facility] 350). WASTE: F/P - Black; E - Municipal Trash Bin Hydralazine Notes: (Same Inactive Gre ater as: 2015 [facility] Apresoline) Push over 5 minutes Acetaminophen Notes: Do not Inactive Greater exceed 4 2015 [place] gm/day. (Same as: Tylenol) Labetalol 20 mg, 4 mL, Inactive [facility] er Route: IVP, 2015 [facility] Drug form: INJ, ONCE, Dosing Weight 81.818, kg, Priority: STAT, Start date: 02/18/16 12:26:00 CDT, Stop date: 02/18/16 12:26:00 CDT Saline Flush 0.9% Notes: Same Inactive H Greater as: BD 2015 [facility] Posiflush Sterile Naproxen sodium 550 mg = 1 Active 550 MG Oral Tablet tab, PO, BID, 2014 [facility] [Anaprox] PRN Pain, X 10 day, # [...] Refill(s) carvedilol PO, 0 Active Refill(s) 2014 [facility] Lisinopril PO, Daily, 0 Active Refill(s) 2014 [facility] Metformin PO, 0 Active Refill(s) 2014 [facility] Simvastatin PO, Bedtime, 0 Active Refill(s) 2014 [facility] Hydrochlorothiazid PO, Daily, 0 Active e Refill(s) 2014 [facility] Morphine 4 mg, Route: Inactive IVP, ONCE, 2014 [facility] Dosing Weight 93.835, kg, Priority: STAT, Start date: 11/22/14 11:18:00, Stop date: 11/22/14 11:18:00 Ketorolac 30 mg, Route: Inactive IVP, ONCE, 2014 [facility] Dosing Weight 93.835, kg, Priority: STAT, Start date: 11/22/14 11:18:00, Stop date: 11/22/14 11:18:00 Ondansetron 4 mg, Route: Inactive IVP, ONCE, 2014 [facility] Dosing Weight 93.835, kg, Priority: STAT, Start date: 11/22/14 11:18:00, Stop date: 11/22/14 11:18:00 Saline Flush 0.9% Notes: (Same Inactive as: BD 2014 [facility] Posiflush) Sodium Chloride 1,000 mL, Inactive 0.154 MEQ/ML Infuse Over: 1 2014 [place] Injectable hr, Route: IV, Solution ONCE, Priority: STAT, Dosing Weight 93.835 kg, Start date: 11/22/14 11:18:00, Duration: 1 doses or times, Stop date: 11/22/14 11:18:00 tramadol 50 mg = 1 tab, Active hydrochloride 50 PO, Q6H, # 30 2015 [place] MG Oral Tablet tab, 0 Refill(s) lisinopril 10 mg 10 mg = 1 tab, Active oral tablet PO, Daily, # [address] [facility] [address] 60 tab, 0 Refill(s) carvedilol 25 mg 25 mg = 1 tab, Active oral tablet PO, Q12H, # 60 2015 [place] tab, 0 Refill(s) Aspirin 81 MG 81 mg = 1 tab, Active Enteric Coated PO, Daily, # 2015 [place] Tablet 30 tab, 0 Refill(s) Hydrochlorothiazid 25 mg = 1 tab, Active e 25 MG Oral PO, Daily, # 2015 [place] Tablet 30 tab, 0 Refill(s) Alprazolam 0.5 MG 0.5 mg = 1 Active Oral Tablet tab, PO, TID, 2015 [place] [Xanax] Anxiety, # 24 tab, 0 Refill(s) Ciprofloxacin 500 500 mg = 1 Active MG Oral Tablet tab, PO, Q12H, 2015 [place] [Cipro] # 14 tab, 0 Refill(s) Albuterol 0.09 1 puff, Active MG/ACTUAT Inhalant INHALATION, 2015 [place] Solution QID, wheezing, # 1 ea, 0 Refill(s) {21 Special Active (Methylprednisolon Instructions: 2014 [facility] e 4 MG Oral Tablet Take with or [Medrol]) } Pack without food [Medrol Dosepak] simvastatin 40 mg 40 mg =, PO, Active H oral tablet Bedtime, # [address] [facility] ast tab, 0 Refill(s) Metformin 500 mg = 1 Active hydrochloride 500 tab, PO, BID, 2014 [place] [facility] Oral Tablet # 60 tab, 0 Refill(s) vancomycin + 2001 mg: Inactive Dextrose 5% in infuse over 2014 [place] IV 250 mL 2.5 hours vancomycin + 2001 mg: Inactive Dextrose 5% in infuse over 2014 [place] IV 250 mL 2.5 hours Vancomycin Special Inactive Instructions: 2014 [facility] Pharmacy to dose Zosyn Notes: (Same No Longer as: Zosyn) Active 2014 [facility] Dosing based on Piperacillin component carvedilol Notes: Give No Longer with food. Active 2014 [facility] (Same As: Coreg) multivitamin Notes: Same as No Longer Cerefolin NAC Active 2014 [facility] Non-formulary item Levaquin Notes: (Same No Longer as:Levaquin) Active 2014 [facility] Albuterol 0.833 Notes: (Same No Longer H MG/ML / as: Duoneb) Active 2014 [facility] Ipratropium [place] 0.167 MG/ML Inhalant Solution Vasotec Notes: (Same No Longer as: Active 2014 [facility] Vasotec-IV) Acetylcysteine 200 600 mg, Route: Inactive 08/16 MG/ML Inhalant PO, Drug form: 2014 [place] Solution SOLN, BID, Dosing Weight 96.96, kg, Priority: STAT, Start date: 08/15/14 18:35:00, Duration: 2 day, Stop date: 08/17/14 17:00:00 Lopressor Notes: (Same No Longer as: Lopressor) Active 2014 [facility] Push over 2 minutes Clonidine Notes: (Same No Longer Hydrochloride 0.1 As: Catapres) Active 2014 [facility] MG Oral Tablet Hydralazine Notes: (Same No Longer as: Active 2014 [facility] Apresoline) Push over 5 minutes Ativan Notes: (Same No Longer as: Ativan) Active 2014 [facility] Morphine Notes: (Same No Longer as:MORPhine Active 2014 [facility] Sulfate) Ativan Notes: (Same Inactive as: Ativan) 2014 Aspirin 81 MG Notes: Do not No Longer Enteric Coated crush or chew. Active 2014 [facility] Tablet (Same As: Ecotrin) Simvastatin Notes: (Same No Longer as: Zocor) Active 2014 [facility] Coreg Notes: Give No Longer with food. Active 2014 [facility] (Same As: Coreg) Acetaminophen Notes: Max No Longer acetaminophen Active 2014 [facility] = 4000 mg/day (4 gm/day). (Same as: Tylenol) tramadol Notes: Not to No Longer hydrochloride 50 exceed Active [address] MG Oral Tablet 400mg/day. (Same As: Ultram) Insulin, Aspart, Notes: Roll in No Longer Human palms of hands Active 2014 [facility] gently; Do not shake vigorously. (Same as: NovoLOG) "single patient use only" Stable for 28 days at room temperature. Expires in days from Date Dextrose 50% 12.5 gm, 25 No Longer Syringe mL, Route: Active 2014 [facility] IVP, Drug Form: INJ, Dosing Weight 96.96, kg, PRN, PRN Blood Glucose Results, Start date: 08/14/14 19:28:00, Duration: 30 day, Stop date: 09/13/14 19:27:00 Glucagon 1 mg, Route: No Longer IM, Drug form: Active 2014 [facility] PDR/INJ, PRN, Dosing Weight 96.96, kg, PRN Blood Glucose Results, Start date: 08/14/14 19:28:00, Duration: 30 day, Stop date: 09/13/14 19:27:00 Magnesium Oxide Notes: (Same No Longer H as: Mag-Ox Active 2014 [facility] 400) Magnesium oxide [id number] elemental magnesium Dose=____mg magnesium oxide (___mg elemental magnesium) Lisinopril Notes: (Same No Longer as: Prinivil, Active 2014 [facility] Zestril) carvedilol Notes: Give No Longer with food. Active 2014 [facility] (Same As: Coreg) Hydralazine Notes: (Same No Longer as: Active 2014 [facility] Apresoline) Push over 5 minutes Tamiflu Notes: Take No Longer with food. Active 2014 [facility] Same as: Tamiflu) Enoxaparin Notes: (Same No Longer as: Lovenox) Active 2014 [facility] Albuterol 0.833 Notes: (Same No Longer H MG/ML / as: Duoneb) Active 2014 [facility] Ipratropium [place] 0.167 MG/ML Inhalant Solution Ondansetron Notes: (Same No Longer as: Zofran) Active 2014 [facility] Acetaminophen Notes: Do not No Longer exceed 4 Active 2014 [facility] gm/day. (Same as: Tylenol) Guaifenesin Notes: (Same No Longer as: Active 2014 [facility] Robitussin) Lasix Notes: (Same Inactive as: Lasix) 2014 [facility] Zithromax Notes: Same Inactive as: Zithromax 2014 [facility] Rocephin Notes: (Same Inactive As: Rocephin). 2014 [facility] Use with 100ml NS mini-bag PLUS and infuse over 30 min Labetalol Notes: (Same Inactive as: Normodyne, 2014 [facility] Trandate) Push over 2 minutes Give bolus [...] SEE RT Inactive Inhalant Solution DOCUMENTATION 2014 [facility] Saline Flush 0.9% Notes: (Same No Longer as: BD Active 2014 [facility] Posiflush) Sodium Chloride 1,000 mL, 1000 Inactive 0.154 MEQ/ML ml/hr, Infuse 2014 [place] Injectable Over: 1 hr, Solution Route: IV, 1,000, Drug form: INJ, ONCE, Priority: STAT, Dosing Weight 113.636 kg, Start date: 08/14/14 7:28:00, Duration: 1 doses or times, Stop date: 08/14/14 7:28:00 Ibuprofen Notes: (Same Inactive as: Motrin) 2014 "Do Not Crush" Give with food. Acetaminophen Notes: Do not Inactive exceed 4 2014 [place] gm/day. (Same as: Tylenol) Acetaminophen 325 1 tab, PO, Active [place] MG / Hydrocodone Q4H, Pain 2014 Medic [...] PO, Active [place] 800 MG / [id number], # 14 2014 [facility] Trimethoprim 160 tab, 0 Center MG Oral Tablet Refill(s) Docusate Sodium 50 1 tab, PO, Active [place] MG / sennosides, BID, # 30 tab, 2014 [facility] 8.6 MG Oral 0 Refill(s) Cent er [...] Med ical MG Oral Tablet tab, 0 [place] [Augmentin 875-mg] Refill(s) carvedilol Notes: Give No Longer [place] with food. Active 2013 [facility] (Same As: Center Coreg) Docusate Sodium 50 Notes: (Same No Longer [place] MG / sennosides, as Senokot-S) Active 2013 edical [facility]URSING HOME 8.6 MG Oral Equiv. to [place] Tablet Lorie-Colace. Fluzone Notes: (Same No Longer [place] Quadrivalent as: Fluzone Active 2013 [facility] [id number] Quadrivalent) [place] Lisinopril Notes: (Same No Longer [place] as as: Prinivil, Active 2013 [facility] Zestril) [place] Hydralazine Notes: (Same No Longer [place] Hydrochloride 25 as: Active 2013 [facility] MG Oral Tablet Apresoline) Cente r May interfere w/enteral feedings Take With Food. tramadol Notes: Not to No Longer [place] hydrochloride 50 exceed Active 2013 [facility] MG Oral Tablet 400mg/day. Center (Same As: [facility]) carvedilol Notes: Give No Longer [place] with food. Active 2013 [facility] (Same As: Center Coreg) Amoxicillin 875 MG Notes: With No Longer [place] / Clavulanate 125 food. (Same Active 2013 [place] MG Oral Tablet as: Augmentin Ministerio ter [Augmentin 875-mg] 875) Bactrim DS Notes: One DS No Longer [place] tablet = Active 2013 [facility] trimethoprim [place] 160mg + sulfamethoxazo le 800 mg Dose based on trimethoprim component On empty stomach with a glass of water. 1 hr before meals (Same As: Bactrim DS, Septra DS) heparin, porcine Notes: porcine No Longer [place] heparin Active 2013 [facility] Center Hydrochlorothiazid Notes: (Same No Longer [place] e as: Active 2013 Medical Hydrodiuril) Center With food. Lisinopril Notes: (Same Inactive [place] as: Prinivil, 2013 [facility] Zestril) Center Coreg Notes: Give Inactive [place] with food. 2013 [facility] (Same As: Center Coreg) Coreg Notes: Give Inactive [facility] with food. 2013 Medical (Same As: Center Coreg) Lisinopril Notes: (Same Inactive [place] as: Prinivil, 2013 [facility] Zestril) [place] vancomycin + 2001 mg: Inactive [place] Sodium Chloride infuse over 2013 [facility] scooby 0.9% IV 500 mL 2.5 hours Center Vancomycin FOR IV SET ONLY 24 HR Notes: Apply Inactive [place] Nitroglycerin 0.2 only once for 2014 Medical MG/HR Transdermal up to 12 hours Center Patch in a 24 hour period (12 hours on and 12 hours off.) (Same as:NitroKaylin Nath,Nicoláse rm Nitro) For topical use only. "Remove old patch before application of new patch" atorvastatin Notes: (Same Inactive [place] as: Lipitor) 2013 [facility] Metoprolol Notes: (Same No Longer [place] as as: Lopressor) Active 2013 Medical Push over 2 Center minutes aspirin Notes: Take No Longer [place] with food. Active 2013 [facility] Labetalol 20 mg, Route: Inactive [place] [...] minutes Labetalol 10 mg, 2 mL, Inactive [place] Route: IVP, 2013 Medical Drug form: Center INJ, Q5Min, Dosing Weight 97.727, kg, PRN Elevated BP, Start date: 05/10/14 17:35:00, Duration: 5 doses or times, Stop date: 05/11/14 0:00:00 Fentanyl Notes: (Same Inactive [place] as: Sublimaze) 2014 [facility] free. Hydromorphone Notes: Same Inactive [place] as: Dilaudid 2014 [facility] Center Promethazine Notes: Do not Inactive [place] give IV push. 2014 Medical (Same as: [place] Phenergan) Ondansetron Notes: (Same Inactive [place] as: Zofran) 2014 [facility] Center Lisinopril Notes: (Same No Longer [place] as: Prinivil, Active 2013 Medical Zestril) Center vancomycin + 2001 mg: No Longer [place] Sodium Chloride infuse over Active 2013 Medi scooby 0.9% IV 250 mL 2.5 hours Center Vancomycin FOR IV SET ONLY vancomycin + 2001 mg: Inactive [facility] Sodium Chloride infuse over 2013 Medi scooby 0.9% IV 500 mL 2.5 hours Center Vancomycin FOR IV SET ONLY aspirin Notes: Do not No Longer [facility] crush or chew. Active 2013 Medical (Same As: [place] Ecotrin) carvedilol Notes: Give No Longer [place] with food. Active 2013 Medical (Same As: [place] Coreg) Influenza Virus Notes: (Same Inactive [facility] Vaccine, as: Fluzone 2014 Medical Inactivated Quadrivalent) [place] [id number] (H3N2)-like virus ([id number] 7 [facility] X-175C) strain / Influenza Virus Vaccine, Inactivated [id number] , IVR-148 (H1N1) strain / Influenza Virus Vaccine, Inactivated, J-[id number]-l ik Docusate Notes: (Same No Longer [facility] as: Colace) Active 2014 [facility] Center Ceftriaxone Notes: (Same No Longer [place] As: Rocephin). Active 2013 Medical Use with Center 100ml NS mini-bag PLUS and infuse over 30 min Zofran Notes: (Same No Longer [facility] as: Zofran) Active 2013 Medical Center Vancomycin 2001 mg: Inactive [facility] infuse over 2014 Medical 2.5 hours Center Potassium Chloride Notes: (Same Inactive [facility] as: KCL) 2014 Medical Infuse no Center faster than 10 mEq/hr if given peripherally. Insulin, Aspart, Notes: Roll in No Longer [place] Human palms of hands Active 2013 Medical gently; Do Center not shake vigorously. (Same as: NovoLOG) "single patient use only" Stable for 28 days at room temperature. Expires in days from Date Dextrose 50% 25 gm, 50 mL, No Longer [place] Syringe Route: IVP, Active 2013 Medical Drug Form: Center INJ, Dosing Weight 97.727, kg, PRN, PRN Blood Glucose Results, Start date: 05/09/14 6:36:00, Duration: 30 day, Stop date: 06/08/14 5:35:00 Glucagon 1 mg, Route: No Longer [place] IM, Drug form: Active 2013 Medical PDR/INJ, PRN, Center Dosing Weight 97.727, kg, PRN Blood Glucose Results, Start date: 05/09/14 6:36:00, Duration: 30 day, Stop date: 06/08/14 5:35:00 Saline Flush 0.9% Notes: (Same No Longer [place] as: BD Active 2013 Medical Posiflush) Center Ondansetron Notes: (Same No Longer [place] as: Zofran) Active 2013 Medical Center Acetaminophen Notes: Do not No Longer [facility] exceed 4 Active 2013 Medical gm/day. (Same Center as: Tylenol) Acetaminophen 325 Notes: (Same No Longer [place] MG / Hydrocodone as: [place] Active 2013 Medic al Bitartrate 5 MG 325/5) Do not C enter Oral Tablet exceed 4gm/day of acetaminophen. Morphine Notes: (Same No Longer [facility] as:MORPhine Active 2013 Medical Sulfate) Center Acetaminophen 325 Notes: Do not No Longer [facility] MG / Hydrocodone exceed 4gm/day Active 2013 Medical Bitartrate 10 MG of Center Oral Tablet acetaminophen. (Same as: [place] 325/10) Metformin 500 mg = 1 Active [place] hydrochloride 500 tab, PO, BID, 2014 Medical MG Oral Tablet # 30 tab, 0 Cente r Refill(s) Dilaudid 1 mg, Route: Inactive [place] IVP, ONCE, 2013 Medical Dosing Weight Center 113.636, kg, Priority: STAT, Start date: 05/09/14 3:14:00, Stop date: 05/09/14 3:14:00 Ceftriaxone Notes: (Same Inactive [place] As: Rocephin). 2013 Medical Use with Center 100ml NS mini-bag PLUS and infuse over 30 min Doxycycline Notes: NO Inactive [place] MILK/ANTACIDS/ 2013 Medical IRON Take 1 Center hour before or 2 hours after dairy products NS 1,000 mL Special Inactive Instructions: 2013 [facility] Bolus Dose Ondansetron Notes: (Same No Longer as: Zofran) Active 2013 [facility] Dilaudid Notes: Same No Longer as: Dilaudid Active 2013 [facility] Vancomycin 2001 mg: No Longer infuse over Active 2013 [facility] 2.5 hours Saline Flush 0.9% Notes: (Same No Longer as: BD Active 2013 [facility] Posiflush) Lisinopril Notes: (Same No Longer as: Prinivil, Active 2013 [facility] Zestril) Coreg Notes: Give Inactive with food. 2013 (Same As: Coreg) lisinopril 5 mg 5 [...] (Same No Longer as: Zocor) Active 2013 [facility] Coreg Notes: Give No Longer with food. Active 2013 [facility] (Same As: Coreg) Hydrochlorothiazid 1 tab, PO, No Longer e 12.5 MG / Bedtime, 0 Active 2013 [facility] Lisinopril 20 MG Refill(s) Oral Tablet carvedilol 12.5 MG 12.5 mg = 1 No Longer Oral Tablet tab, PO, BID, Active 2013 [facility] ast [Coreg] # 60 tab, 0 Refill(s) Metformin 500 mg, PO, No Longer [place], 0 Active 2013 [facility] Refill(s) Simvastatin 40 mg = 1 tab, Active PO, Bedtime, # 2013 [facility] 30 tab, 0 Refill(s) NS 1,000 mL 1,000 mL, No Longer Rate: 40 Active 2013 [facility] ml/hr, Infuse over: 25 hr, Route: IV, Dosing Weight 92.045 kg, Total Volume: 1,000, Start date: 02/07/14 22:24:00, Duration: 30 day, Stop date: 03/09/14 22:23:00 Morphine 2 mg, Route: Inactive IVP, ONCE, 2013 [facility] Dosing Weight 96.364, kg, Start date: 02/07/14 13:00:00, Stop date: 02/07/14 13:00:00 Acetaminophen Notes: Max No Longer acetaminophen Active 2013 [facility] = 4000mg/day (4 gm/day). (Same as: Tylenol) Ondansetron Notes: (Same No Longer as: Zofran) Active 2013 [facility] Docusate Notes: (Same No Longer as: Colace) Active 2013 [facility] (Do Not Crush) Omnipaque 240 50 mL, Route: Inactive PO, Dosing 2013 [facility] Weight 96.364, kg, ONCE, Start date: 02/07/14 9:41:00, Stop date: 02/07/14 9:41:00 Sodium Chloride 1,000 mL, 999 Inactive H 0.154 MEQ/ML ml/hr, Infuse 2013 [place] Injectable Over: 1 hr, Solution Route: IV, ONCE, Priority: STAT, Dosing Weight 96.364 kg, Start date: 02/07/14 9:27:00, Duration: 1 doses or times, Stop date: 02/07/14 9:27:00 Sodium Chloride 500 mL, 500 Inactive 0.154 MEQ/ML ml/hr, Infuse 2013 [place] Injectable Over: 1 hr, Solution Route: IV, ONCE, Priority: STAT, Dosing Weight 96.364 kg, Start date: 02/07/14 7:37:00, Duration: 1 doses or times, Stop date: 02/07/14 7:37:00 Morphine 6 mg, Route: Inactive IVP, Drug 2013 [facility] form: INJ, ONCE, Dosing Weight 96.364, kg, Priority: STAT, Start date: 02/07/14 7:33:00, Stop date: 02/07/14 7:33:00 Zofran 8 mg, Route: Inactive IVP, Drug 2013 [facility] form: INJ, ONCE, Dosing Weight 96.364, kg, Priority: STAT, Start date: 02/07/14 7:33:00, Stop date: 02/07/14 7:33:00 Azithromycin 500 500 mg = 1 Active MG Oral Tablet tab, PO, 2013 [facility] t [Zithromax] Daily, # 7 tab, 0 Refill(s) benzonatate 100 MG 100 mg = 1 Active Oral Capsule cap, PO, TID, 2013 [place] [Tessalon Perles] # 21 cap, 0 Refill(s) carvedilol 12.5 mg 12.5 mg = 1 Active [place] H oral tablet tab, PO, Q12H, 2012 [place] # 60 tab, 0 Refill(s) Tessalon 200 mg 200 mg = 1 Active [place] oral capsule cap, PO, TID, 2012 [place] # 30 cap, 0 Refill(s) albuterol 90 1 puff, Active [place] mcg/inh inhalation INHALATION, 2012 [facility] aerosol QID, wheezing, # 1 ea, 0 Refill(s) aspirin 81 mg 81 mg = 1 tab, Active [place] tablet, enteric PO, Daily, # 2012 [place] [facility] coated 30 tab, 0 Refill(s) cloNIDine 0.1 mg 0.1 mg = 1 Active [place] oral tablet tab, PO, TID, 2012 ast Elevated BP | sbp >/= 160, # 60 tab, 0 Refill(s) simvastatin 20 mg 40 mg = 2 tab, Active [place] oral tablet PO, Bedtime, # 2013 [place] 30 tab, 0 Refill(s) lisinopril 20 mg 20 mg = 1 tab, Active [place] oral tablet PO, Q12H, HOLD 2012 [place] IF SBP HOLD IF SBP </= 110 furosemide 40 mg 40 mg = 1 tab, Active [place] oral tablet PO, Daily, # [address] [facility] [address] 30 tab, 0 Refill(s) Levaquin 750 mg 750 mg = 1 Active [place]el[place] oral tablet tab, PO, Q24H, 2012 [place] # 7 tab, 0 Refill(s) Lasix 40 mg, 1 tab, Inactive [place] Route: PO, 2012 [facility] Drug form: TAB, Daily, Dosing Weight 93.3, kg, Start date: 07/21/13 9:00:00, Duration: 30 day, Stop date: 08/19/13 9:00:00(Same as: Lasix) May cause GI upset. Give with food or milk. hydrALAZINE 10 mg, 0.5 mL, No Longer [place] Route: IVP, Active 2012 [facility] Drug form: INJ, Q6H, Dosing Weight 97.727, kg, PRN Hypertension, Start date: 07/20/13 14:02:00, Duration: 30 day, Stop date: 08/19/13 14:01:00, SBP>/=150 OR DBP>/=90(Same as: Apresoline) Push over 5 minutes aspirin 325 mg 325 mg, 1 tab, No Longer [place] tablet, enteric Route: PO, Active 2012 [place] coated Drug form: ECTAB, Daily, Dosing Weight 93.3, kg, Start date: 07/20/13 9:00:00, Duration: 30 day, Stop date: 08/18/13 9:00:00(Do Not Crush) Do not crush or chew. Zocor 40 mg, 2 tab, No Longer [place] Route: PO, Active 2012 [facility] Drug form: TAB, Bedtime, Dosing Weight 93.3, kg, Start date: 07/19/13 21:00:00, Duration: 30 day, Stop date: 08/17/13 21:00:00(Same as: Zocor) lisinopril 20 mg, 1 tab, No Longer [place] Route: PO, 2012 [facility] Drug form: TAB, Q12H, Dosing Weight 97.727, kg, Priority: STAT, Start date: 07/19/13 20:50:00, Duration: 30 day, Stop date: 08/18/13 9:00:00(Same as: Prinivil, Zestril) magnesium sulfate 2 gm, 50 mL, No Longer [place] Route: IVPB, 2012 [facility] Drug form: INJ, PRN, Dosing Weight 93.3, [...] mL, No Longer [place] Route: IVPB, 2012 [facility] Drug form: INJ, PRN, Dosing Weight 93.3, [...] No Longer [place] Route: PO, Active 2012 [facility] Drug form: ERTAB, PRN, Dosing Weight 93.3, kg, PRN Abnormal Lab Result, Start date: 07/19/13 10:51:00, Duration: 30 day, Stop date: 08/18/13 10:50:00, FOR ICU USE ONLYFOR ICU USE ONLY(Same as: K-Dur 20) "Do Not Crush" With food and full glass of water Lasix 40 mg, 4 mL, No Longer [place] Route: IVP, Active 2012 [facility] Drug form: INJ, Daily, Dosing Weight 97.727, kg, Priority: Routine, Start date: 07/19/13 9:00:00, Duration: 30 day, Stop date: 08/17/13 9:00:00(Same as: Lasix) folic acid 1 mg, 1 tab, No Longer [place] Route: PO, Active 2012 [facility] Drug form: TAB, Daily, Dosing Weight 97.727, kg, Start date: 07/19/13 9:00:00, Duration: 30 day, Stop date: 08/17/13 9:00:00(Same as: Folvite) multivitamin 1 tab, Route: No Longer [place] PO, Drug Form: Active 2012 [facility] TAB, Dosing Weight 97.727, kg, Daily, Start date: 07/19/13 9:00:00, Duration: 30 day, Stop date: 08/17/13 9:00:00 thiamine 100 mg, 1 tab, No Longer [place] Route: PO, Active 2012 [facility] Drug form: TAB, Daily, Dosing Weight 97.727, [...] [place] minerals PO, Drug Form: Active 2012 [facility] t TAB, Daily, Start date: 07/19/13 9:00:00, Duration: 30 day, Stop date: 08/17/13 9:00:00Give with food. (Same As: Stress 600 with Zinc) vancomycin 1.25 gm, 250 No Longer [place] mL, Route: Active 2012 [facility] IVPB, Drug form: INJ, [id number], Start date: 07/19/13 6:00:00, Stop date: 08/18/13 2:00:00Same as: Vancocin-NS (premixed) [place] 10/325 oral 1 tab, Route: No Longer [place] tablet PO, Drug Form: Active 2012 [facility] TAB, Dosing Weight 97.727, kg, Q6H, Start date: 07/19/13 0:00:00, Duration: 30 day, Stop date: 08/17/13 18:00:00Do not exceed 4gm/day of acetaminophen. (Same as: [place] 325/10) albuterol-ipratrop 3 mL, Route: No Longer [place] ium 2.5-0.5 mg NEB, Drug Active [address] [facility] [address] inhalation Form: SOLN, solution Dosing Weight 97.727, kg, RQ4H, Start date: 07/18/13 23:00:00, Duration: 30 day, Stop date: 08/17/13 19:00:00(Same as: Duoneb) Tessalon Perles 200 mg, 2 cap, No Longer [place] Route: PO, Active 2012 [facility] Drug form: CAP, Q8H-06, Dosing Weight 97.727, kg, Start date: 07/18/13 22:00:00, Duration: 30 day, Stop date: 08/17/13 14:00:00(Same As: Tessalon Perles) "Do Not Crush" lisinopril 10 mg, 1 tab, No Longer [place] Route: PO, Active 2012 [facility] Drug form: TAB, Q12H, Dosing Weight 97.727, kg, Start date: 07/18/13 21:00:00, Duration: 30 day, Stop date: 08/17/13 9:00:00(Same as: Prinivil, Zestril) Coreg 12.5 mg, 1 No Longer [place] tab, Route: Active 2012 [facility] PO, Drug form: TAB, Q12H, Dosing Weight 97.727, kg, Start date: 07/18/13 21:00:00, Stop date: 08/17/13 9:00:00Give with food. (Same As: Coreg) Vancomycin 1 gm, Route: Inactive [facility] Dosing IV, Dosing 2012 [place] Weight 97.727, kg, Q12H, Start date: 07/18/13 21:00:00, Duration: 30 day, Stop date: 08/17/13 9:00:00 Nicoderm C-Q 21 mg, 1 No Longer [place] patch, Route: Active 2012 [facility] TOP, Drug form: ERFILM, Daily, Dosing Weight 97.727, kg, Start date: 07/18/13 20:25:00, Duration: 30 day, Stop date: 08/17/13 9:00:00(Same as: Habitrol) "Remove old patch before application of new patch" Ativan 1 mg, 0.5 mL, No Longer [place] Route: IVP, Active 2012 [facility] Drug form: INJ, Q2H, Dosing Weight 97.727, kg, PRN Anxiety, Start date: 07/18/13 20:18:00, Duration: 30 day, Stop date: 08/17/13 20:17:00, SIGNS OF WITHDRAWAL, AGITATION, Anxiety(Same as: Ativan) clonidine 0.1 mg 0.1 mg, 1 tab, No Longer [place] oral tablet Route: PO, Active 2012 [facility] Drug form: TAB, TID, Dosing Weight 97.727, kg, PRN Elevated BP, Start date: 07/18/13 20:17:00, Duration: 30 day, Stop date: 08/17/13 20:16:00, sbp >/= 180(Same As: Catapres) vancomycin 1.5 gm, 250 Inactive [place] mL, Route: 2012 IVPB, Drug form: INJ, ONCE, Start date: 07/18/13 20:00:00, Stop date: 07/18/13 20:00:00Same as: Vancocin-NS (premixed) dextromethorphan-g 10 mL, Route: No Longer [place] 07/19 uaifenesin 10 PO, Drug Form: Active 2012 [facility] [facility] mg-100 mg/5 mL LIQ, Dosing oral liquid Weight 97.727, kg, Q4H, PRN Cough, Start date: 07/18/13 19:28:00, Duration: 30 day, Stop date: 08/17/13 19:27:00(dextr omethorphan-gu aifenesin 10-100/5 ml LIQ) (Same as: Robitussin-DM) Colace 100 mg oral 100 mg, 1 cap, No Longer [place] 07/02 capsule Route: PO, Active 2012 [facility] Drug form: CAP, BID, Dosing Weight 97.727, kg, PRN Constipation, Start date: 07/18/13 19:28:00, Duration: 30 day, Stop date: 08/17/13 1927:00(Same as: Colace) (Do Not Crush) Gas-X Ultra 160 mg, 2 tab, No Longer [place] Softgels Route: PO, Active 2012 [facility] Drug form: CHEWTAB, Q4H, Dosing Weight 97.727, kg, PRN Gas, Start date: 07/18/13 19:28:00, Duration: 30 day, Stop date: 08/17/13 19:27:00(Same as: Mylicon) GI cocktail 30 ml, Route: No Longer [place] PO, Drug Form: Active 2012 [facility] SUSP, Dosing Weight 97.727, kg, Q4H, PRN GI Upset, Routine, Start date: 07/18/13 19:28:00, Duration: 30 day, Stop date: 08/17/13 19:27:00, DYSPEPSIAG.I. Cocktail = antacid with simethicone 22.5 mL - lidocaine viscous 7.5 mL morphine Sulfate 2 mg, 1 mL, No Longer [place]am H Route: IVP, Active 2012 [facility] Drug form: INJ, Q6H, Dosing Weight 97.727, kg, PRN as needed for pain, Start date: 07/18/13:00, Duration: 30 day, Stop date: 08/17/13:00(Same as:MORPhine Sulfate) Tylenol 650 mg, Route: Inactive [place] PO, Drug form: 2012 [facility] TAB, Q6H, Dosing Weight 97.727, kg, PRN Pain, Start date: 07/18/1328:00, Duration: 30 day, Stop date: 08/17/1300 hydrALAZINE 10 mg, 0.5 mL, No Longer [place] Route: IVP, Active 2012 [facility] Drug form: INJ, Q6H, Dosing Weight 97.727, kg, PRN Elevated BP, Start date: 07/18/13:, Duration: 30 day, Stop date: 08/17/13, SBP>/=160 OR DBP>/=90(Same as: Apresoline) Push over 5 minutes lactulose 20 gm, 30 ml, No Longer [place] Route: PO, Active 2012 [facility] Drug Form: SYRP, Dosing Weight 97.727, kg, TID, PRN Constipation, Start date: 07/18/13:00, Duration: 30 day, Stop date: 08/17/13:00(Same as:Chronulac) Zofran 4 mg, 2 mL, No Longer [place] Route: IV, Active 2012 [facility] Drug form: INJ, Q4H, Dosing Weight 97.727, kg, PRN Nausea, Start date: 07/18/13:00, Duration: 30 day, Stop date: 08/17/13(Same as: Zofran) acetaminophen 650 mg, 2 tab, No Longer [place] 07/19/ H Route: PO, Active 2012 [facility] Drug form: TAB, Q4H, Dosing Weight 97.727, kg, PRN Pain Score 1-3, For fever > 100.4. Not to exceed 4 grams in 24 hours, Start date: 07/18/13:28:00, Duration: 30 day, Stop date: 08/17/13:00Do not exceed 4 gm/day. (Same as: Tylenol) tuberculin 5 unit, 0.1 Inactive [place] purified protein mL, Route: 2012 [facility] derivative 5 INTRADERM, tuberculin ONCE, Dosing units/0.1 mL Weight 97.727, intradermal kg, Start solution date: 07/18/13 19:22:00, Stop date: 07/18/13 19:22:00 levofloxacin 750 mg, 150 No Longer [facility] 07/19[facility] mL, Route: IV, Active 2012 [facility] Drug form: SOLN, [id number], Dosing Weight 97.727, kg, Start date: 07/18/13 18:00:00, Duration: 30 day, Stop date: 08/16/13 18:00:00(Same as:Levaquin) Lasix 40 mg, 4 mL, Inactive [facility] 07/18[facility] Route: IV, 2012 [facility] Drug form: INJ, ONCE, Dosing Weight 97.727, kg, Start date: 07/18/13 17:20:00, Stop date: 07/18/13 17:20:00(Same as: Lasix) tuberculin 5 unit, 0.1 Inactive [facility] 07/18[facility] purified protein mL, Route: 2012 [facility] derivative INTRADERM, Drug form: INJ, ONCE, Dosing Weight 97.727, kg, Start date: 07/18/13 17:17:00, Stop date: 07/18/13 17:17:00LOT#: EXP: (Same As: Aplisol, Tubersol) Lasix 40 mg, Route: Inactive [facility] 07/18[facility] IVP, Drug 2012 [facility] form: INJ, ONCE, Dosing Weight 97.727, kg, Priority: STAT, Start date: 07/18/13 17:12:00, Stop date: 07/18/13 17:12:00 hydrALAZINE 20 mg, 1 mL, Inactive [place] Route: IVP, 2012 [facility] Drug form: INJ, ONCE, Dosing Weight 97.727, kg, Priority: STAT, Start date: 07/18/13 14:40:00, Stop date: 07/18/13 14:40:00(Same as: Apresoline) Push over 5 minutes Tylenol 650 mg, Route: Inactive [facility] 07/18[facility] PO, Drug form: 2012 TAB, ONCE, Dosing Weight 97.727, kg, Priority: STAT, Start date: 07/18/13 14:12:00, Stop date: 07/18/13 14:12:00 ketorolac 30 mg, Route: Inactive [facility] 07/18[facility] IVP, Drug 2012 [facility] form: INJ, ONCE, Dosing Weight 97.727, kg, Priority: STAT, Start date: 07/18/13 14:12:00, Stop date: 07/18/13 14:12:00 albuterol-ipratrop 3 mL, Route: Inactive [facility] 07/18[facility] ium 2.5-0.5 mg NEB, Drug 2012 [facility] inhalation Form: SOLN, solution Dosing Weight 97.727, kg, ONCE, STAT, Start date: 07/18/13 13:00:00, Stop date: 07/18/13 13:00:00 Saline Flush 0.9% 5 mL, Route: No Longer [facility] 07/18[facility] IVP, Drug Active 2012 [facility] Form: INJ, Dosing Weight 97.727, kg, PRN, PRN Line Flush, Start date: 07/18/13 13:00:00, Duration: 1 doses or times, Stop date: Limited # of times(Same as: BD Posiflush) Allergies, Adverse Reactions, Alerts No Known Medication Allergies Immunizations Immunization Date Site Status Last Comments Source Given Updated influenza virus Left completed Hunter Farfan her vaccine, 4 deltoid Neuro, inactivated [facility], [facility] diphtheria/pertu Left completed Eric Vaca [facility] ssis, 4 Deltoid Neuro, acel/tetanus [facility], [facility] influenza virus Left completed Jacek Farfan her vaccine, 3 Deltoid Neuro,[facility] inactivated [facility], [facility] influenza virus completed Jacek [facility] vaccine, 3 inactivated tuberculin completed Jack [facility], [place] purified protein 3 Comment: Félix ro, derivative<sup>1 given in Kamar as Medical </sup> left forearm Center, [facility], [facility] tuberculin completed Jack 1Result [facility] ast purified protein 3 Comment: derivative<sup>1 given in </sup> left forearm Results Order Name Results Value Reference Date Interpretation Comments [place] rce Range CHEM PANEL Phosphorus 3.7 2.5 - 4.5 04/19 [facility] CHEM PANEL Magnesium 2.1 1.8 - 2.4 04/19 Lvl /2016 [facility] ELECTROLYT AGAP 11.5 10.0 - 04/19 MH ES 20.0 /2016 [facility] ELECTROLYT Sodium Lvl 140 135 - 145 04/19 ES [facility] ELECTROLYT Glucose Lvl 92 70 - 99 04/19 ES [facility] ELECTROLYT BUN 12 7 - 22 04/19 ES [facility] ELECTROLYT Creatinine 0.78 0.50 - 04/19 ES Lvl 1.40 /2016 [facility] ELECTROLYT eGFR 106 04/19 Result Comment: The [facility] eGFR is calculated using the CKD-EPI formula. [...] 8.4 8.5 - 10.5 04/19 MH ES [facility] ELECTROLYT CO2 24 24 - 32 04/19 ES [facility] ELECTROLYT Chloride Lvl 108 95 - 109 04/19 ES [facility] ELECTROLYT Potassium 3.5 3.5 - 5.1 04/19 ES Lvl [facility] HEMATOLOGY INR 1.06 0.85 - 04/19 MH 1.17 /2016 [facility] HEMATOLOGY PT 14.0 12.0 - 04/19 MH 14.7 /2016 [facility] HEMATOLOGY PTT 31.1 22.9 - 04/19 MH 35.8 /2016 [facility] HEMATOLOGY Platelet 217 133 - 450 04/19 MH /2016 [facility] HEMATOLOGY RBC 4.55 4.70 - 04/19 MH 6.10 /2016 [facility] HEMATOLOGY MCV 84.4 80.0 - 04/19 MH 94.0 /2016 [facility] HEMATOLOGY RDW 14.6 11.5 - 04/19 MH 14.5 /2016 [facility] HEMATOLOGY MCH 28.0 27.0 - 04/19 MH 31.0 /2016 [facility] HEMATOLOGY MCHC 33.2 32.0 - 04/19 MH 36.0 /2016 [facility] HEMATOLOGY WBC 5.9 3.7 - 10.4 04/19 /2016 [facility] HEMATOLOGY Hct 38.4 42.0 - 04/19 MH 54.0 /2016 [facility] HEMATOLOGY Hgb 12.8 14.0 - 04/19 MH 18.0 /2016 [facility] HEMATOLOGY MPV 8.2 7.4 - 10.4 04/19 [facility] ANEMIA Vitamin B12 511 254 - 1320 04/18 STUDY Lvl /2016 [facility] ANEMIA Folate Lvl 18.6 >=3.0 04/18 STUDY ng/mL /2016 [facility] LIPIDS VLDL 13 04/18 [facility] LIPIDS LDL 57 <=99 mg/dL 04/18 MH (Calculated) /2016 [facility] LIPIDS CHD Risk 3.80 4.00 - 04/18 7.30 /2016 [facility] LIPIDS Chol 95 <=199 04/18 MH mg/dL /2016 [facility] LIPIDS HDL 25 >=61 mg/dL 04/18 [facility] LIPIDS Trig 63 <=149 04/18 mg/dL /2016 [facility] SPECIAL Hgb A1C 6.2 <=5.6 % 04/18 CHEMISTRY /2017 [facility] CARDIAC Troponin-I <0.02 0.00 - 04/18 ENZYMES 0.40 /2017 [facility] CARDIAC Total CK 226 12 - 191 04/18 ENZYMES /2016 [facility] CARDIAC CK MB 1.2 0.5 - 3.6 04/18 ENZYMES /2016 [facility] CARDIAC CK MB Index 0.5 0.0 - 2.5 04/18 ENZYMES /2016 [facility] CHEM PANEL eGFR 113 04/18 Result Comment: The [facility] eGFR is calculated using the CKD-EPI formula. [...] AGAP 10.0 10.0 - 04/18 MH 20.0 /2017 [facility] CHEM PANEL BUN 7 7 - 22 04/18 [facility] CHEM PANEL Glucose Lvl 92 70 - 99 04/18 [facility] CHEM PANEL Sodium Lvl 140 135 - 145 04/18 [facility] CHEM PANEL Potassium 4.0 3.5 - 5.1 04/18 MH Lvl /2016 [facility] CHEM PANEL Creatinine 0.67 0.50 - 04/18 MH Lvl 1.40 /2016 [facility] HEMATOLOGY PTT 31.8 22.9 - 04/18 MH 35.8 /2017 [facility] HEMATOLOGY MPV 8.6 7.4 - 10.4 04/18 /2016 [facility] HEMATOLOGY RDW 14.8 11.5 - 04/18 MH 14.5 /2016 [facility] HEMATOLOGY Hct 39.8 42.0 - 04/18 MH 54.0 /2017 [facility] HEMATOLOGY MCHC 33.7 32.0 - 04/18 MH 36.0 /2017 [facility] HEMATOLOGY MCV 83.2 80.0 - 04/18 MH 94.0 /2016 [facility] HEMATOLOGY MCH 28.0 27.0 - 04/18 MH 31.0 /2017 [facility] HEMATOLOGY Hgb 13.4 14.0 - 04/18 MH 18.0 /2016 [facility] HEMATOLOGY WBC 6.6 3.7 - 10.4 04/18 /2016 [facility] HEMATOLOGY RBC 4.79 4.70 - 04/18 MH 6.10 /2016 [facility] HEMATOLOGY Platelet 228 133 - 450 04/18 /2016 [facility] HEMATOLOGY INR 1.00 0.85 - 04/18 MH 1. [facility] HEMATOLOGY PT 13.4 12.0 - 04/18 MH 14.7 /2016 [facility] HEMATOLOGY Monocytes # 0.7 0.0 - 0.8 04/18 /2016 [facility] HEMATOLOGY Lymphocytes 1.3 1.0 - 5.5 04/18 MH # /2016 [facility] HEMATOLOGY Eosinophils 0.2 0.0 - 0.5 04/18 MH # /2016 [facility] HEMATOLOGY Eosinophils 3.0 0.0 - 4.0 04/18 /2016 [facility] HEMATOLOGY Monocytes 11.3 2.0 - 12.0 04/18 /2016 [facility] HEMATOLOGY Segs-Bands # 4.3 1.5 - 8.1 04/18 /2016 [facility] HEMATOLOGY Basophils 0.5 0.0 - 1.0 04/18 /2016 [facility] HEMATOLOGY Segs 65.4 45.0 - 04/18 MH 75.0 /2016 [facility] HEMATOLOGY Lymphocytes 19.8 20.0 - 04/18 MH 40.0 /2016 [facility] TOXICOLOGY Etoh (%) <0.003 % 04/18 [facility] TOXICOLOGY Ethanol Lvl <3.0 mg/dL 04/18 /2016 [facility] URINE AND UA Nitrite Negative Negative 04/18 STOOL (04/18/17 4:20 PM) /2016 [facility] URINE [facility] UA Glucose Negative Negative 04/18 [facility] mg/dL mg/dL [facility] URINE AND UA Ketones Negative Negative 04/18 [facility]OOL mg/dL mg/dL [facility] URINE AND UA Bili Negative Negative 04/18 STOOL *NA* /2016 [facility] (04/18/17 4:20 PM) URINE AND UA Blood Negative Negative 04/18 [facility] (04/18/17 4:20 PM) [facility] URINE AND UA Sq Epi None Seen 04/18 STOOL [facility] URINE AND UA Leuk Est Small Negative 04/18 STOOL *ABN* /2016 [facility] (04/18/17 4:20 PM) URINE AND UA <=1.0 0.1 - 1.0 04/18 STOOL Urobilinogen mg/dL /2016 [facility] URINE AND UA Color Light Yellow Yellow 04/18 STOOL *NA* /2016 [facility] (04/18/17 4:20 PM) URINE AND UA Protein Negative Negative 04/18 STOOL mg/dL mg/dL [facility] URINE AND UA pH 6.0 5.0 - 8.0 04/18 STOOL [facility] URINE AND UA Spec Grav 1.009 <=1.030 04/18 STOOL [facility] URINE AND UA Turbidity Clear Clear 04/18 [facility] (04/18/17 4:20 PM) [facility] URINE AND UA Mucus Few /LPF None Seen 04/18 STOOL /LPF /2016 [facility] URINE AND UA RBC 4 0 - 2 04/18 [facility] URINE AND UA WBC 6 0 - 5 04/18 [facility] CARDIAC CK MB 2.0 0.5 - 3.6 08/27 [facility] CARDIAC Troponin-I <0.02 0.00 - 08/27 [facility] ENZYMES 0.40 /2016 [facility] CARDIAC Total CK 320 12 - 191 08/27 [facility] CARDIAC CK MB Index 0.6 0.0 - 2.5 08/27 [facility] CHEM PANEL A/G Ratio 1.2 0.7 - 1.6 08/27 [facility] CHEM PANEL Globulin 3.4 2.7 - 4.2 08/27 [facility] CHEM PANEL B/C Ratio 14 6 - 25 08/27 [facility] CHEM PANEL eGFR 104 08/27 Result Comment: [facility] eGFR is calculated using the CKD-EPI [...] Chloride Lvl 105 95 - 109 08/27 [facility] CHEM PANEL Calcium Lvl 8.3 8.5 - 10.5 08/27 [facility] CHEM PANEL CO2 30 24 - 32 08/27 [facility] CHEM PANEL Albumin Lvl 4.0 3.5 - 5.0 08/27 [facility] CHEM PANEL Total 7.4 6.4 - 8.4 08/27 [facility] CHEM PANEL Bili Total 0.4 0.2 - 1.3 08/27 [facility] CHEM PANEL Alk Phos 71 39 - 136 08/27 [facility] CHEM PANEL AGAP 9.7 10.0 - 08/27 20.0 [facility] CHEM PANEL AST 22 0 - 37 08/27 [facility] CHEM PANEL ALT 18 0 - 65 08/27 [facility] CHEM PANEL Glucose Lvl 97 70 - 99 08/27 [facility] CHEM PANEL BUN 12 7 - 22 08/27 [facility] CHEM PANEL Creatinine 0.84 0.50 - 08/27 [facility] Lvl 1.40 [facility] CHEM PANEL Sodium Lvl 141 135 - 145 08/27 [facility] CHEM PANEL Potassium 3.7 3.5 - 5.1 08/27 r [facility] DRUG UDS Note See Note 08/27 [facility] SCREEN *NA* /2016 [facility] (08/27/16 1:52 PM) DRUG U Cocaine Negative Negative 08/27 [facility] SCREEN Scr *NA* [facility] (08/27/16 1:52 PM) DRUG U Amph Scr Negative Negative 08/27 [facility] SCREEN *NA* [facility] (08/27/16 1:52 PM) DRUG U Phencyc Negative Negative 08/27 [facility] SCREEN Scr *NA* [facility] (08/27/16 1:52 PM) DRUG U Opiate Scr Negative Negative 08/27 [facility] SCREEN *NA* [facility] (08/27/16 1:52 PM) DRUG U Cannab Scr Negative Negative 08/27 [facility] SCREEN *NA* [facility] (08/27/16 1:52 PM) DRUG U Benzodia Negative Negative 08/27 [facility] SCREEN Scr *NA* [facility] (08/27/16 1:52 PM) DRUG U Armida Scr Negative Negative 08/27 [facility] SCREEN *NA* [facility] (08/27/16 1:52 PM) HEMATOLOGY WBC 6.3 3.7 - 10.4 08/27 [facility] HEMATOLOGY RBC 4.80 4.70 - 08/27 [facility] 6.10 [facility] HEMATOLOGY Hct 40.2 42.0 - 08/27 [facility] 54.0 [facility] HEMATOLOGY Hgb 13.4 14.0 - 08/27 [facility] 18.0 [facility] HEMATOLOGY MCV 83.9 80.0 - 08/27 94.0 [facility] HEMATOLOGY MCHC 33.4 32.0 - 08/27 [facility] 36.0 [facility] HEMATOLOGY MPV 8.8 7.4 - 10.4 08/27 [facility] HEMATOLOGY Platelet 195 133 - 450 08/27 [facility] HEMATOLOGY RDW 14.8 11.5 - 08/27 [facility] 14.5 [facility] HEMATOLOGY MCH 28.0 27.0 - 08/27 [facility] 31.0 [facility] HEMATOLOGY Segs-Bands # 4.0 1.5 - 8.1 08/27 [facility] /2016 [facility] HEMATOLOGY Lymphocytes 1.5 1.0 - 5.5 08/[address] # /2016 [facility] HEMATOLOGY Eosinophils 0.2 0.0 - 0.5 08/[address] # /2016 [facility] HEMATOLOGY Monocytes # 0.6 0.0 - 0.8 08/[address] /2016 [facility] HEMATOLOGY Monocytes 9.1 2.0 - 12.0 08/27 [facility] /2016 [facility] HEMATOLOGY Basophils 0.5 0.0 - 1.0 08/27 [facility] /2016 [facility] HEMATOLOGY Eosinophils 2.5 0.0 - 4.0 08/[address] /2016 [facility] HEMATOLOGY Lymphocytes 24.5 20.0 - 08/27 [facility] r 40.0 /2016 [facility] HEMATOLOGY Segs 63.4 45.0 - 08/27 [facility] 75.0 /2016 [facility] URINE AND UA Leuk Est Negative Negative 08/27 [facility] STOOL (08/27/16 1:52 PM) /2016 [facility] URINE AND UA 2.0 0.1 - 1.0 08/27 [facility] STOOL Urobilinogen /2016 [facility] URINE AND UA Nitrite Negative Negative 08/27 [facility] (08/27/16 1:52 PM) [facility] URINE AND UA Bili Negative Negative 08/27 [facility] STOOL *NA* /2016 [facility] (08/27/16 1:52 PM) URINE AND UA Blood Negative Negative 08/27 [facility] (08/27/16 1:52 PM) /2016 [facility] URINE AND UA Ketones Negative Negative 08/27 [facility] STOOL mg/dL mg/dL [facility] URINE AND UA Glucose Negative Negative 08/27 [facility] STOOL mg/dL mg/dL /2016 [facility] URINE AND UA Spec Grav 1.020 <=1.030 08/27 [facility] STOOL /2016 [facility] URINE AND UA Color Yellow Yellow 08/27 [facility] STOOL *NA* /2016 [facility] (08/27/16 1:52 PM) URINE AND UA Turbidity Clear Clear 08/27 [facility] STO[facility] (08/27/16 1:52 PM) /2016 [facility] URINE AND UA pH 6.5 5.0 - 8.0 08/27 [facility] STOOL [facility] URINE AND UA Protein Negative Negative 08/27 [facility] STOOL mg/dL mg/dL [facility] URINE AND UA Sq Epi None Seen Few 08/27 [facility] (08/27/16 1:52 PM) [facility] TOXICOLOGY Etoh (%) <0.003 07/28 [facility] TOXICOLOGY Ethanol Lvl <3 12/27 [facility] /2015 [facility] DRUG U Opiate Scr Negative Negative 07/28 [facility] SCREEN *NA* /2015 [facility] (07/28/16 4:20 PM) DRUG U Benzodia Negative Negative 07/28 [facility] SCREEN Scr *NA* /2015 [facility] (07/28/16 4:20 PM) DRUG U Cocaine Negative Negative 07/28 [facility] SCREEN Scr *NA* [facility] (07/28/16 4:20 PM) DRUG U Cannab Scr Negative Negative 07/28 [facility] SCREEN *NA* /2015 (07/28/16 4:20 PM) DRUG U Phencyc Negative Negative 07/28 [facility] SCREEN Scr *NA* [facility] (07/28/16 4:20 PM) DRUG U Armida Scr Negative Negative 07/28 [facility] SCREEN *NA* [facility] (07/28/16 4:20 PM) DRUG U Amph Scr Negative Negative 07/28 [facility] SCREEN *NA* [facility] (07/28/16 4:20 PM) DRUG UDS Note See Note 07/28 [facility] SCREEN *NA* /2015 [facility] (07/28/16 4:20 PM) URINE AND UA Bacteria Occasional None Seen 07/28 [facility] [place] STOOL /HPF /HPF /2015 [facility] URINE AND UA Amorph Occasional None Seen 07/[address] STOOL [place] /HPF /HPF /2015 [facility] URINE AND UA Mucus None Seen None Seen 07/28 e r [facility] (07/28/16 4:20 PM) [facility] URINE AND UA WBC None Seen None Seen 07/28 [facility] STO[facility] (07/28/16 4:20 PM) [facility] URINE AND UA Sq Epi Few /LPF Few /LPF 07/28 [facility] STOOL /2015 [facility] URINE AND UA RBC 0-2 /HPF 0 - 2 07/28 [facility] STOOL /2015 [facility] URINE AND UA Leuk Est Negative Negative 07/28 [facility] ST[facility]OL (07/28/16 4:20 PM) /2015 [facility] URINE AND UA Bili Negative Negative 07/28 [facility] STOOL *NA* [facility] (07/28/16 4:20 PM) URINE AND UA Nitrite Negative Negative 07/28 [facility] STO[facility] (07/28/16 4:20 PM) /2015 [facility] URINE AND UA 1.0 0.1 - 1.0 07/28 [facility] STOOL Urobilinogen /2015 [facility] URINE AND UA Blood Trace Negative 07/28 [facility] STOOL *ABN* /2015 [facility] (07/28/16 4:20 PM) URINE AND UA pH 8.0 5.0 - 8.0 07/28 [facility] STOOL [facility] URINE AND UA Ketones Trace Negative 07/28 [facility] STOOL *ABN* /2015 [facility] (07/28/16 4:20 PM) URINE AND UA Glucose Negative Negative 07/28 [facility] STOOL (07/28/16 4:20 PM) [facility] ts URINE AND UA Protein Negative Negative 07/28 [facility] STOOL (07/28/16 4:20 PM) [facility] ts URINE AND UA Color Yellow Yellow 07/28 [facility] STOOL *NA* /2015 [facility] (07/28/16 4:20 PM) URINE AND UA Spec Grav 1.020 <=1.030 07/28 [facility] STOOL [facility] URINE AND UA Turbidity Clear Clear 07/28 [facility] STOOL (07/28/16 4:20 PM) [facility] CARDIAC CK MB Index 0.4 0.0 - 2.5 07/27 [facility] ENZYMES [facility] CARDIAC CK MB 1.0 0.5 - 3.6 07/27 ENZYMES [facility] CARDIAC Troponin-I <0.02 0.00 - 07/27 [facility] ENZYMES 0.40 [facility] CARDIAC Total CK 244 12 - 191 07/27 ENZYMES [facility] CHEM PANEL eGFR 125 07/27 Comment: The [facility] eGFR is calculated using the CKD-EPI [...] Albumin Lvl 3.9 3.5 - 5.0 07/27 [facility] CHEM PANEL Total 8.0 6.4 - 8.4 07/27 Protein [facility] CHEM PANEL BUN 11 7 - 22 07/27 [facility] CHEM PANEL Sodium Lvl 143 135 - 145 07/27 [facility] CHEM PANEL Creatinine 0.76 0.50 - 07/27 [facility] Lvl 1.40 [facility] CHEM PANEL Glucose Lvl 93 70 - 99 07/27 r [facility] CHEM PANEL Bili Total 0.3 0.2 - 1.3 07/27 [facility] CHEM PANEL AST 29 0 - 37 07/27 [facility] CHEM PANEL Alk Phos 91 39 - 136 07/27 [facility] CHEM PANEL AGAP 16.4 10.0 - 07/27 20.0 [facility] CHEM PANEL B/C Ratio 14 6 - 25 07/27 [facility] CHEM PANEL A/G Ratio 1.0 0.7 - 1.6 07/27 r [facility] CHEM PANEL Globulin 4.1 2.7 - 4.2 07/27 [facility] CHEM PANEL Calcium Lvl 8.3 8.5 - 10.5 07/27 ater [facility] CHEM PANEL CO2 27 24 - 32 07/27 [facility] CHEM PANEL ALT 24 0 - 65 07/27 [facility] CHEM PANEL Potassium 3.4 3.5 - 5.1 07/27 e r Lvl [facility] CHEM PANEL Chloride Lvl 103 95 - 109 07/27 ter [facility] HEMATOLOGY Segs 70.6 45.0 - 07/27 [facility] 75.0 [facility] HEMATOLOGY Monocytes 7.7 2.0 - 12.0 07/27 [facility] HEMATOLOGY Lymphocytes 19.1 20.0 - 07/27 e r 40.0 [facility] HEMATOLOGY Basophils 1.1 0.0 - 1.0 07/27 r [facility] HEMATOLOGY Eosinophils 1.5 0.0 - 4.0 07/[address] /2015 [facility] HEMATOLOGY Basophils # 0.1 0.0 - 0.2 07/[address] /2015 [facility] HEMATOLOGY Eosinophils 0.1 0.0 - 0.5 07/[address] # /2015 [facility] HEMATOLOGY Segs-Bands # 4.2 1.5 - 8.1 07/27 Gre [facility]ter [facility] HEMATOLOGY Monocytes # 0.5 0.0 - 0.8 07/[address] /2015 [facility] HEMATOLOGY Lymphocytes 1.1 1.0 - 5.5 07/[address] # /2015 [facility] HEMATOLOGY PT 13.6 12.0 - 07/27 MH [facility] 14.7 [facility] HEMATOLOGY INR 1.02 0.85 - 07/27 MH Greater 1.17 [facility] HEMATOLOGY PTT 28.3 22.9 - 07/27 MH [facility] 35.8 [facility] HEMATOLOGY MPV 8.0 7.4 - 10.4 07/27 MH [facility] HEMATOLOGY Platelet 265 133 - 450 07/27 [facility] HEMATOLOGY RDW 14.5 11.5 - 07/27 MH [facility] 14.5 [facility] HEMATOLOGY WBC 6.0 3.7 - 10.4 07/27 MH [facility] HEMATOLOGY MCV 84.1 80.0 - 07/27 MH [facility] 94.0 [facility] HEMATOLOGY Hct 42.3 42.0 - 07/27 MH [facility] 54.0 [facility] HEMATOLOGY Hgb 14.3 14.0 - 07/27 MH Greater 18.0 [facility] HEMATOLOGY RBC 5.03 4.70 - 07/27 MH Greater 6.10 [facility] HEMATOLOGY MCH 28.5 27.0 - 07/27 MH Greater 31.0 [facility] HEMATOLOGY MCHC 33.9 32.0 - 07/27 MH [facility] 36.0 [facility] LIPIDS CHD Risk 5.52 4.00 - 07/27 MH Greater 7.30 [facility] LIPIDS HDL 23 >=61 mg/dL 07/27 [facility] LIPIDS Chol 127 <=199 07/27 MH [facility] mg/dL [facility] LIPIDS Trig 310 <=149 07/27 MH [facility] mg/dL LIPIDS LDL 42 <=99 mg/dL 07/27 [facility] (Calculated) [facility] LIPIDS VLDL 62 07/27 MH [facility] SPECIAL Hgb A1C 5.9 <=5.6 % 07/27 MH [facility] CHEMISTRY [facility] CHEM PANEL eGFR 77 03/07 Result Comment: The [facility] eGFR is calculated using the CKD-EPI [...] PANEL CO2 30 24 - 32 03/07 [facility] CHEM PANEL Chloride Lvl 103 95 - 109 03/07 ter [facility] CHEM PANEL Potassium 2.7 3.5 - 5.1 03/07 Result r Lvl Comment: [facility] Critical Result(s) called to Ignacio CARRIZALES at 03/07/2016 17:10 by [email or web address]. Read back OK. CHEM PANEL Sodium Lvl 142 135 - 145 03/07 er [facility] CHEM PANEL Calcium Lvl 8.1 8.5 - 10.5 03/07 ater [facility] CHEM PANEL AGAP 11.7 10.0 - 03/07 20.0 [facility] CHEM PANEL BUN 7 7 - 22 03/07 [facility] CHEM PANEL Creatinine 1.27 0.50 - 03/07 [facility] Lvl 1.40 [facility] CHEM PANEL Glucose Lvl 125 70 - 99 03/07 r [facility] ELECTROLYT Potassium 2.7 3.5 - 5.1 03/07 Result [facility] r ES Lvl Comment: [facility] Critical Result(s) called to JOEY HERNÁNDEZ at 03/07/2016 16:38 by [employer]. Read back OK. DRUG U Armida Scr Negative Negative 03/07 [facility] SCREEN *NA* /2015 [facility] (03/07/16 1:30 PM) DRUG U Benzodia Negative Negative 03/07 [facility] SCREEN Scr *NA* [facility] (03/07/16 1:30 PM) DRUG U Cocaine Negative Negative 03/07 [facility] SCREEN Scr *NA* [facility] (03/07/16 1:30 PM) DRUG U Cannab Scr Negative Negative 03/07 [facility] SCREEN *NA* [facility] (03/07/16 1:30 PM) DRUG U Opiate Scr Negative Negative 03/07 [facility] SCREEN *NA* [facility] (03/07/16 1:30 PM) DRUG U Phencyc Negative Negative 03/07 [facility] SCREEN Scr *NA* [facility] (03/07/16 1:30 PM) DRUG UDS Note See Note 03/07 [facility] SCREEN *NA* [facility] (03/07/16 1:30 PM) DRUG U Amph Scr Negative Negative 03/07 [facility] SCREEN *NA* [facility] (03/07/16 1:30 PM) URINE AND UA RBC 0-2 /HPF 0 - 2 03/07 [facility] STOOL /2015 [facility] URINE AND UA Bacteria None Seen None Seen 03/07 Gre [facility]ter STOOL (03/07/16 1:30 PM) /2015 [facility] URINE AND UA Mucus Moderate None Seen 03/07 [facility] STOOL /LPF /LPF /2015 [facility] URINE AND Micro? Performed 03/07 [facility] STOOL (03/07/16 1:30 PM) [facility] URINE AND UA Sq Epi Rare /LPF Few /LPF 03/07 [facility] STOOL /2015 [facility] URINE AND UA WBC 3-5 /HPF None Seen 03/07 [facility] STOOL /HPF /2015 [facility] URINE AND UA Leuk Est Negative Negative 03/07 [facility] STOOL (03/07/16 1:30 PM) /2015 [facility] URINE AND UA Nitrite Positive Negative 03/07 [facility] STOOL *ABN* /2015 [facility] (03/07/16 1:30 PM) URINE AND UA 2.0 0.1 - 1.0 03/07 [facility] STOOL Urobilinogen /2015 [facility] URINE AND UA Blood Negative Negative 03/07 [facility] STOOL (03/07/16 1:30 PM) /2015 [facility] URINE AND UA Bili Moderate Negative 03/07 [facility] STOOL *ABN* /2015 [facility] (03/07/16 1:30 PM) URINE AND UA Ketones 15 mg/dL Negative 03/07 [facility] STOOL mg/dL /2015 [facility] URINE AND UA Glucose Negative Negative 03/07 [facility] STOOL (03/07/16 1:30 PM) /2015 [facility] URINE AND UA Protein 30 mg/dL Negative 03/07 [facility] STOOL mg/dL /2015 [facility] URINE AND UA Turbidity Clear Clear 03/07 e r STOOL (03/07/16 1:30 PM) [facility] URINE AND UA Color DK YELLOW 03/07 STOOL /2015 [facility] URINE AND UA pH 5.5 5.0 - 8.0 03/07 [facility] STOOL [facility] URINE AND UA Spec Grav >=1.030 <=1.030 03/07 e r STOOL *ABN* /2015 [facility] (03/07/16 1:30 PM) CARDIAC CK MB Index 0.3 0.0 - 2.5 03/07 [facility] ENZYMES [facility] CARDIAC CK MB 1.5 0.5 - 3.6 03/07 [facility] ENZYMES [facility] CARDIAC Total CK 501 12 - 191 03/07 [facility] ENZYMES [facility] CARDIAC BNP 8 <=100 03/07 [facility] ENZYMES pg/mL /2015 [facility] CARDIAC Troponin-I 0.06 0.00 - 08 [facility] ENZYMES 0.40 [facility] CARDIAC BNP 7 <=100 03/07 [facility] ENZYMES pg/mL /2015 [facility] CHEM PANEL Bili Total 0.9 0.2 - 1.3 03/07 er [facility] CHEM PANEL AST 89 0 - 37 03/07 [facility] CHEM PANEL Alk Phos 121 39 - 136 / [facility] CHEM PANEL A/G Ratio 0.9 0.7 - 1.6 / r [facility] CHEM PANEL Globulin 3.9 2.7 - 4.2 03/07 [facility] CHEM PANEL ALT 52 0 - 65 03/07 [facility] CHEM PANEL Albumin Lvl 3.7 3.5 - 5.0 / [facility] CHEM PANEL Total 7.6 6.4 - 8.4 03/07 Protein [facility] CHEM PANEL AGAP 13.5 10.0 - 0806 [facility] 20.0 /2015 [facility] CHEM PANEL Calcium Lvl 9.1 8.5 - 10.5 08/ [facility] CHEM PANEL B/C Ratio 5 6 - 25 08/ [facility] CHEM PANEL eGFR 64 03/07 Result Comment: The [facility] eGFR is calculated using the CKD-EPI [...] CHEM PANEL Creatinine 1.47 0.50 - 08 [facility] Lvl 1.40 [facility] CHEM PANEL Sodium Lvl 140 135 - 145 03/07 [facility] CHEM PANEL CO2 30 24 - 32 03/07 [facility] CHEM PANEL Potassium 2.5 3.5 - 5.1 03/07 Result r Lv Comment: [facility] Critical Result(s) called to Chelsea DERAS at 03/07/2016 13:58_ [email or web address]. Read back OK. CHEM PANEL Chloride Lvl 99 95 - 109 / [facility] CHEM PANEL BUN 7 7 - 22 / [facility] CHEM PANEL Glucose Lvl 105 70 - 99 / r [facility] HEMATOLOGY Segs-Bands # 5.7 1.5 - 8.1 08/ [facility] HEMATOLOGY Lymphocytes 1.3 1.0 - [facility].5 [facility] HEMATOLOGY Basophils # 0.1 0.0 - 0.2 08/ [facility] HEMATOLOGY Eosinophils 0.1 0.0 - 0.5 / [facility] HEMATOLOGY Basophils 0.7 0.0 - 1.0 08/06 r /2015 [facility] HEMATOLOGY Segs 70.8 45.0 - 08/06 [facility] 75.0 /2015 [facility] HEMATOLOGY Monocytes # 0.9 0.0 - 0.8 08/06 ter /2015 [facility] HEMATOLOGY Eosinophils 1.5 0.0 - 4.0 08/06 ter /2015 [facility] HEMATOLOGY Monocytes 10.7 2.0 - 12.0 08/06 er /2015 [facility] HEMATOLOGY Lymphocytes 16.3 20.0 - 08/[facility] HEMATOLOGY Hgb 14.2 14.0 - 08/ [facility] 18.0 /2015 [facility] HEMATOLOGY Hct 43.6 42.0 - 08/ [facility] 54.0 /2015 [facility] HEMATOLOGY MCHC 32.6 32.0 - 08/ [facility] 36.0 /2015 [facility] HEMATOLOGY RDW 15.1 11.5 - 08/ [facility] 14.5 /2015 [facility] HEMATOLOGY MCV 87.6 80.0 - 08/ [facility] 94.0 /2015 [facility] HEMATOLOGY MCH 28.6 27.0 - 08/06 [facility] 31.0 /2015 [facility] HEMATOLOGY WBC 8.0 3.7 - 10.4 08/ [facility] HEMATOLOGY RBC 4.97 4.70 - 08/06 [facility] 6.10 /2015 [facility] HEMATOLOGY Platelet 245 133 - 450 08/ [facility] HEMATOLOGY MPV 8.5 7.4 - 10.4 08/ [facility] CARDIAC CK MB Index 0.7 0.0 - 2.5 02/17 ENZYMES /2015 [facility] CARDIAC Total CK 774 12 - 191 02/17 MH [facility] ENZYMES /2015 [facility] CARDIAC CK MB 5.2 0.5 - 3.6 02/17 [facility] ENZYMES /2015 [facility] CARDIAC Troponin-I 0.02 0.00 - 07 [facility] ENZYMES 0.40 /2015 [facility] CHEM PANEL eGFR 116 02/17 Result Comment: [facility] eGFR is calculated using the CKD-EPI [...] PANEL Globulin 4.2 2.0 - 4.0 02/17 [facility] CHEM PANEL B/C Ratio 6 6 - 25 02/17 [facility] CHEM PANEL A/G Ratio 0.8 0.7 - 1.6 02/17 r [facility] CHEM PANEL Calcium Lvl 8.2 8.5 - 10.5 02/17 ater [facility] CHEM PANEL AST 117 0 - 37 02/17 [facility] CHEM PANEL ALT 62 0 - 65 02/17 [facility] CHEM PANEL Glucose Lvl 84 70 - 99 02/17 r [facility] CHEM PANEL BUN 5 7 - 22 02/17 [facility] CHEM PANEL Creatinine 0.90 0.50 - 02/17 Greater Lvl 1.40 [facility] CHEM PANEL Chloride Lvl 96 95 - 109 02/17 [facility] CHEM PANEL Sodium Lvl 133 135 - 145 02/17 [facility] CHEM PANEL Potassium 4.7 3.5 - 5.1 02/17 r Lvl [facility] CHEM PANEL CO2 36 24 - 32 02/17 [facility] CHEM PANEL AGAP 5.7 10.0 - 02/17 Greater 20.0 [facility] CHEM PANEL Alk Phos 110 39 - 136 02/17 [facility] CHEM PANEL Bili Total 0.6 0.2 - 1.3 02/17 er [facility] CHEM PANEL Total 7.5 6.4 - 8.4 02/17 Protein [facility] CHEM PANEL Albumin Lvl 3.3 3.5 - 5.0 02/17 ter [facility] HEMATOLOGY Segs 62.9 45.0 - 02/17 Greater 75.0 /2015 [facility] HEMATOLOGY Lymphocytes 22.7 20.0 - 02/17 Greate r 40.0 /2015 [facility] HEMATOLOGY Plt Morph Normal 02/17 Greater (02/18/16 12:22 PM) /2015 [facility] HEMATOLOGY RBC Morph Normal 02/17 Greater (02/18/16 12:22 PM) /2015 [facility] HEMATOLOGY Segs-Bands # 3.9 1.5 - 8.1 02/17 Gre ater /2015 [facility] HEMATOLOGY Basophils 1.2 0.0 - 1.0 02/17 Greate r /2015 [facility] HEMATOLOGY Eosinophils 2.7 0.0 - 4.0 02/[address] [facility] HEMATOLOGY Monocytes 10.5 2.0 - 12.0 02/17 er [facility] HEMATOLOGY Basophils # 0.1 0.0 - 0.2 02/[address] [facility] HEMATOLOGY Monocytes # 0.6 0.0 - 0.8 02/[address] [facility] HEMATOLOGY Eosinophils 0.2 0.0 - 0.5 02/[address] # /2015 [facility] HEMATOLOGY Lymphocytes 1.4 1.0 - 5.5 02/[address] # /2015 [facility] HEMATOLOGY WBC 6.1 3.7 - 10.4 02/17 [facility] HEMATOLOGY Hgb 13.0 14.0 - 02/17 Greater 18.0 [facility] HEMATOLOGY RDW 14.4 11.5 - 02/17 Greater 14.5 [facility] HEMATOLOGY MCV 87.9 80.0 - 02/17 Greater 94.0 [facility] HEMATOLOGY MCHC 32.8 32.0 - 02/17 Greater 36.0 [facility] HEMATOLOGY Hct 39.6 42.0 - 02/17 Greater 54.0 /2015 [facility] HEMATOLOGY RBC 4.51 4.70 - 02/17 Greater 6.10 [facility] HEMATOLOGY Platelet 228 133 - 450 02/17 [facility] HEMATOLOGY MCH 28.9 27.0 - 02/17 Greater 31.0 [facility] HEMATOLOGY MPV 9.5 7.4 - 10.4 02/17 [facility] URINE AND UA Mucus Few /LPF None Seen 11/22 STOOL /LPF /2014 [facility] URINE AND UA Sq Epi Occasional Few /LPF 11/22 STOOL /LPF /2014 [facility] URINE AND UA Ketones Trace Negative 11/22 STOOL *ABN* /2014 [facility] (11/22/14 11:38 AM) URINE AND UA Nitrite Negative Negative 11/22 STOOL (11/22/14 11:38 AM) [place] URINE AND UA 2.0 0.1 - 1.0 11/22 STOOL Urobilinogen /2014 [facility] URINE AND UA Blood Negative Negative 11/22 STOOL (11/22/14 11:38 AM) [place] URINE AND UA Leuk Est Negative Negative 11/22 STOOL (11/22/14 11:38 AM) [place] URINE AND UA Color Yellow Yellow 11/22 STOOL *NA* /2014 [facility] (11/22/14 11:38 AM) URINE AND UA Turbidity Clear Clear 11/22 STOOL (11/22/14 11:38 AM) [place] URINE AND UA Glucose Negative Negative 11/22 STOOL (11/22/14 11:38 AM) [place] URINE AND UA Protein 30 mg/dL Negative 11/22 STOOL mg/dL /2014 [facility] URINE AND UA pH 6.5 5.0 - 8.0 11/22 STOOL /2014 [facility] URINE AND UA Spec Grav 1.025 <=1.030 11/22 STOOL /2014 [facility] URINE AND UA Bili Small Negative 11/22 STOOL *ABN* /2014 [facility] (11/22/14 11:38 AM) CHEM PANEL Lipase Lvl 77 73 - 393 11/22 [facility] CHEM PANEL eGFR 117 11/22 <sup>1</sup>R esult [facility] Comment: The eGFR is calculated using the [...] Bili Total 0.4 0.2 - 1.3 11/22 [facility] CHEM PANEL Alk Phos 106 39 - 136 11/22 [facility] CHEM PANEL AST 83 0 - 37 11/22 [facility] CHEM PANEL Albumin Lvl 4.2 3.5 - 5.0 11/22 [facility] CHEM PANEL Total 8.5 6.4 - 8.4 11/22 [facility] CHEM PANEL Calcium Lvl 9.0 8.5 - 10.5 11/22 [facility] CHEM PANEL ALT 57 0 - 65 11/22 [facility] CHEM PANEL CO2 30 24 - 32 11/22 [facility] CHEM PANEL Chloride Lvl 103 95 - 109 11/22 [facility] CHEM PANEL Potassium 3.6 3.5 - 5.1 11/22 l [facility] CHEM PANEL Creatinine 0.9 0.5 - 1.4 11/22 [facility] CHEM PANEL BUN 8 7 - 22 11/22 [facility] CHEM PANEL Sodium Lvl 139 135 - 145 11/22 [facility] CHEM PANEL Glucose Lvl 86 70 - 99 11/22 <sup>2</sup>I nterpretive [facility] Data: Adult reference range values reflect the clinical guidelines
of the [place] [employer]. CHEM PANEL B/C Ratio 9 6 - 25 11/22 [facility] CHEM PANEL Globulin 4.3 2.0 - 4.0 11/22 [facility] CHEM PANEL A/G Ratio 1.0 0.7 - 1.6 11/22 [facility] CHEM PANEL AGAP 9.6 10.0 - 11/22 20.0 [facility] HEMATOLOGY MCHC 33.0 32.0 - 11/22 36.0 [facility] HEMATOLOGY MCH 28.5 27.0 - 11/22 31.0 [facility] HEMATOLOGY MCV 86.3 80.0 - 11/22 MH 94.0 /2014 [facility] HEMATOLOGY MPV 9.3 7.4 - 10.4 11/22 [facility] HEMATOLOGY Platelet 263 133 - 450 11/22 [facility] HEMATOLOGY RDW 15.3 11.5 - 11/22 MH 14.5 /2014 [facility] HEMATOLOGY RBC 5.09 4.70 - 11/22 MH 6.10 [facility] HEMATOLOGY Hct 43.9 42.0 - 11/22 MH 54.0 /2014 [facility] HEMATOLOGY Hgb 14.5 14.0 - 11/22 MH 18.0 /2014 [facility] HEMATOLOGY WBC 8.2 3.7 - 10.4 11/22 [facility] HEMATOLOGY Basophils 0.8 0.0 - 1.0 11/22 [facility] HEMATOLOGY Segs-Bands # 6.0 1.5 - 8.1 11/22 [facility] HEMATOLOGY Monocytes # 0.6 0.0 - 0.8 11/22 [facility] HEMATOLOGY Lymphocytes 1.4 1.0 - 5.5 11/22 [facility] HEMATOLOGY Basophils # 0.1 0.0 - 0.2 11/22 [facility] HEMATOLOGY Eosinophils 0.1 0.0 - 0.5 11/22 [facility] HEMATOLOGY Monocytes 7.5 2.0 - 12.0 11/22 [facility] HEMATOLOGY Eosinophils 1.5 0.0 - 4.0 11/22 [facility] HEMATOLOGY Lymphocytes 17.4 20.0 - 11/22 MH 40.0 [facility] HEMATOLOGY Segs 72.8 45.0 - 11/22 75.0 [facility] CHEM PANEL Magnesium 2.2 1.8 - 2.4 08/17 Lvl /2014 [facility] CHEM PANEL Procalcitoni 0.26 0.00 - 08/17 n Lvl 0.10 [facility] CHEM PANEL eGFR 93 08/17 <sup>1</sup>R esult [facility] Comment: The eGFR is calculated using the [...] PANEL BUN 11 7 - 22 08/17 [facility] CHEM PANEL Glucose Lvl 122 70 - 99 08/17 <sup>4</sup>I nterpretive [facility] Data: Adult reference range values reflect the clinical guidelines
of the [place] [employer]. CHEM PANEL Creatinine 1.1 0.5 - 1.4 08/17 Lvl /2014 [facility] CHEM PANEL Sodium Lvl 138 135 - 145 08/17 [facility] CHEM PANEL Chloride Lvl 105 95 - 109 08/17 [facility] CHEM PANEL Potassium 3.9 3.5 - 5.1 08/17 Lvl /2014 [facility] CHEM PANEL CO2 24 24 - 32 08/17 [facility] CHEM PANEL Calcium Lvl 8.4 8.5 - 10.5 08/17 [facility] CHEM PANEL AGAP 12.9 10.0 - 08/17 MH 20.0 /2014 [facility] CHEM PANEL Phosphorus 3.8 2.5 - 4.5 08/17 [facility] HEMATOLOGY Basophils # 0.1 0.0 - 0.2 08/17 /2014 [facility] HEMATOLOGY Eosinophils 0.3 0.0 - 0.5 08/17 MH # /2014 [facility] HEMATOLOGY Monocytes # 1.1 0.0 - 0.8 08/17 /2014 [facility] HEMATOLOGY Lymphocytes 1.3 1.0 - 5.5 08/17 MH # /2014 [facility] HEMATOLOGY Segs-Bands # 7.3 1.5 - 8.1 08/17 [facility] HEMATOLOGY Basophils 0.9 0.0 - 1.0 08/17 [facility] HEMATOLOGY Monocytes 10.7 2.0 - 12.0 08/17 /2014 [facility] HEMATOLOGY Lymphocytes 13.2 20.0 - 08/17 MH 40.0 /2014 [facility] HEMATOLOGY Segs 72.5 45.0 - 08/17 MH 75.0 /2014 [facility] HEMATOLOGY Eosinophils 2.7 0.0 - 4.0 08/17 [facility] HEMATOLOGY RDW 16.2 11.5 - 08/17 MH 14.5 /2014 [facility] HEMATOLOGY Platelet 222 133 - 450 08/17 [facility] HEMATOLOGY MPV 9.6 7.4 - 10.4 08/17 /2014 [facility] HEMATOLOGY Hct 34.8 42.0 - 08/17 MH 54.0 /2014 [facility] HEMATOLOGY MCV 89.3 80.0 - 08/17 94.0 /2014 [facility] HEMATOLOGY MCH 29.2 27.0 - 08/17 MH 31.0 /2014 [facility] HEMATOLOGY MCHC 32.7 32.0 - 08/17 MH 36.0 /2014 [facility] HEMATOLOGY Hgb 11.4 14.0 - 08/17 MH 18.0 /2014 [facility] HEMATOLOGY WBC 10.0 3.7 - 10.4 08/17 [facility] HEMATOLOGY RBC 3.89 4.70 - 08/17 6.10 /2014 [facility] CARDIAC Total CK 497 12 - 191 08/16 ENZYMES /2014 [facility] CARDIAC Troponin-I 0.06 0.00 - 08/16 ENZYMES 0.40 /2014 [facility] CARDIAC BNP 204 <=100 08/16 <sup>7</sup>I ENZYMES pg/mL /2014 nterpretive [facility] Data: Elevated results are in line with increasing severity of
con gestive heart failure. Minor elevations between 100 and 300
may be seen with Myocardial Ischemia, Sodium retaining drugs,
an d compensated/t reated heart failure. CHEM PANEL Magnesium 2.0 1.8 - 2.4 08/16 Lvl [facility] CHEM PANEL Phosphorus 2.8 2.5 - 4.5 08/16 [facility] ELECTROLYT AGAP 12.6 10.0 - 08/16 ES 20.0 [facility] ELECTROLYT eGFR 93 08/16 <sup>2</sup>R ES /2014 esult [facility] Comment: The eGFR is calculated using the [...] 70 - 99 08/16 <sup>5</sup>I MH nterpretive [facility] Data: Adult reference range values reflect the clinical guidelines
of the [place] [employer]. ELECTROLYT Creatinine 1.1 0.5 - 1.4 08/16 ES Lvl [facility] ELECTROLYT BUN 10 7 - 22 08/16 ES [facility] ELECTROLYT CO2 24 24 - 32 08/16 ES [facility] ELECTROLYT Sodium Lvl 137 135 - 145 08/16 ES [facility] ELECTROLYT Chloride Lvl 104 95 - 109 08/16 ES [facility] ELECTROLYT Potassium 3.6 3.5 - 5.1 08/16 ES Lvl [facility] ELECTROLYT Calcium Lvl 8.3 8.5 - 10.5 08/16 [facility] HEMATOLOGY Lymphocytes 8.0 20.0 - 08/16 MH 40.0 [facility] HEMATOLOGY Segs 81.9 45.0 - 08/16 MH 75.0 /2014 [facility] HEMATOLOGY Eosinophils 0.6 0.0 - 4.0 08/16 [facility] HEMATOLOGY Monocytes 8.7 2.0 - 12.0 08/16 [facility] HEMATOLOGY Eosinophils 0.1 0.0 - 0.5 08/16 MH # /2014 [facility] HEMATOLOGY Basophils # 0.1 0.0 - 0.2 08/16 [facility] HEMATOLOGY Segs-Bands # 12.1 1.5 - 8.1 08/16 [facility] HEMATOLOGY Basophils 0.8 0.0 - 1.0 08/16 [facility] HEMATOLOGY Lymphocytes 1.2 1.0 - 5.5 08/16 [facility] HEMATOLOGY Monocytes # 1.3 0.0 - 0.8 08/16 [facility] HEMATOLOGY WBC 14.8 3.7 - 10.4 08/16 [facility] HEMATOLOGY Platelet 249 133 - 450 08/16 [facility] HEMATOLOGY RDW 16.2 11.5 - 08/16 MH 14.5 [facility] HEMATOLOGY MCH 28.3 27.0 - 08/16 MH 31.0 /2014 [facility] HEMATOLOGY MCHC 31.7 32.0 - 08/16 MH 36.0 /2014 [facility] HEMATOLOGY MPV 9.4 7.4 - 10.4 08/16 /2014 [facility] HEMATOLOGY Hct 39.5 42.0 - 08/16 54.0 /2014 [facility] HEMATOLOGY MCV 89.1 80.0 - 08/16 MH 94.0 /2014 [facility] HEMATOLOGY Hgb 12.6 14.0 - 08/16 18.0 /2014 [facility] HEMATOLOGY RBC 4.44 4.70 - 08/16 MH 6.10 /2014 [facility] MOLECULAR Adenovirus Negative 12 Negative 08/16 <sup>12</sup> DIAGNOSTIC PCR (08/15/14 11:56 PM) /2014 Interpreti ve [facility] Data: The Adenovirus PCR assay is a [...] fied by the [facility] within [facility]. The [facility] is authorized under
the Clinical Laboratory Improvement Amendments of 1988 (CLIA-88) to
perfor m high complexity testing. MOLECULAR Source [employer] Swab 08/16 DIAGNOSTIC Adenovirus (08/15/14 11:56 PM) /2014 [facility] PCR MOLECULAR Parainfluenz Negative Negative 08/16 DIAGNOSTIC a 2 PCR (08/15/14 11:56 PM) /2014 No rtheast MOLECULAR Source [employer] Swab 08/16 DIAGNOSTIC Parainfluenz (08/15/14 11:56 PM) /2014 [facility] a Virus PCR MOLECULAR Parainfluenz Negative Negative 08/16 DIAGNOSTIC a 1 PCR (08/15/14 11:56 PM) No rtheast MOLECULAR Parainfluenz Negative 13 Negative [...] fied by the [facility] within [facility]. The [facility] is authorized
under the Clinical Laboratory Improvement Amendments of 1988
(CLI A-88) to perform high complexity testing. MOLECULAR Source [employer] Swab 08/16 DIAGNOSTIC Respiratory (08/15/14 11:56 PM) [...] verified by
the [facility] within [facility]. The
[facility] is authorized under the Clinical
Laboratory Improvement Amendments of 1988 (CLIA-88) to perform high
comp lexity testing. MOLECULAR Influenza B Negative Negative 08/16 DIAGNOSTIC PCR (08/15/14 11:56 PM) No rtheast MOLECULAR Influenza A Negative Negative 08/16 DIAGNOSTIC PCR (08/15/14 11:56 PM) No rtheast CARDIAC Total CK 516 12 - 191 08/15 ENZYMES [facility] CARDIAC Troponin-I 0.04 0.00 - 08/15 ENZYMES 0.40 [facility] CHEM PANEL Phosphorus 1.8 2.5 - 4.5 08/15 MH [facility] CHEM PANEL Magnesium 1.9 1.8 - 2.4 08/15 Lvl [facility] CHEM PANEL eGFR 93 08/15 <sup>3</sup>R esult [...] 96 70 - 99 08/15 <sup>6</sup>I nterpretive [facility] Data: Adult reference range values reflect the clinical guidelines
of the [place] [employer]. CHEM PANEL BUN 12 7 - 22 08/15 [facility] CHEM PANEL CO2 22 24 - 32 08/15 [facility] CHEM PANEL Potassium 3.7 3.5 - 5.1 08/15 Lvl [facility] CHEM PANEL Sodium Lvl 136 135 - 145 08/15 [facility] CHEM PANEL Creatinine 1.1 0.5 - 1.4 08/15 Lvl [facility] CHEM PANEL Chloride Lvl 104 95 - 109 08/15 [facility] CHEM PANEL Calcium Lvl 8.5 8.5 - 10.5 08/15 [facility] CHEM PANEL AGAP 13.7 10.0 - 08/15 20.0 [facility] HEMATOLOGY Basophils # 0.2 0.0 - 0.2 08/15 [facility] HEMATOLOGY Basophils 1.4 0.0 - 1.0 08/15 [facility] HEMATOLOGY Eosinophils 1.1 0.0 - 4.0 08/15 [facility] HEMATOLOGY Monocytes 7.5 2.0 - 12.0 08/15 [facility] HEMATOLOGY Monocytes # 1.1 0.0 - 0.8 08/15 [facility] HEMATOLOGY Eosinophils 0.2 0.0 - 0.5 08/15 # /2014 [facility] HEMATOLOGY Lymphocytes 1.2 1.0 - 5.5 08/15 MH # /2014 [facility] HEMATOLOGY Lymphocytes 8.6 20.0 - 08/15 MH 40.0 /2014 [facility] HEMATOLOGY Segs 81.4 45.0 - 08/15 MH 75.0 /2014 [facility] HEMATOLOGY Segs-Bands # 11.4 1.5 - 8.1 08/15 [facility] HEMATOLOGY Platelet 267 133 - 450 08/15 [facility] HEMATOLOGY RDW 16.4 11.5 - 08/15 MH 14. [facility] HEMATOLOGY MPV 9.4 7.4 - 10.4 08/15 [facility] HEMATOLOGY MCHC 31.1 32.0 - 08/15 MH 36.0 /2014 [facility] HEMATOLOGY MCH 27.8 27.0 - 08/15 MH 31.0 /2014 [facility] HEMATOLOGY RBC 4.61 4.70 - 08/15 MH 6.10 /2014 [facility] HEMATOLOGY WBC 14.1 3.7 - 10.4 08/15 /2014 [facility] HEMATOLOGY MCV 89.2 80.0 - 08/15 MH 94.0 /2014 [facility] HEMATOLOGY Hct 41.1 42.0 - 08/15 MH 54.0 /2014 [facility] HEMATOLOGY Hgb 12.8 14.0 - 08/15 MH 18.0 /2014 [facility] CARDIAC Total CK 493 12 - 191 08/15 ENZYMES /2014 [facility] CARDIAC Troponin-I 0.04 0.00 - 08/15 ENZYMES 0.40 /2014 [facility] DRUG U Amph Scr Negative Negative 08/15 MH SCREEN *NA* [facility] (08/15/14 4:00 AM) DRUG U Cocaine Negative Negative 08/15 MH SCREEN Scr *NA* [facility] (08/15/14 4:00 AM) DRUG U Armida Scr Negative Negative 08/15 MH SCREEN *NA* [facility] (08/15/14 4:00 AM) DRUG U Benzodia Negative Negative 08/15 MH SCREEN Scr *NA [facility] (08/15/14 4:00 AM) DRUG UDS Note See Note 9 08/15 <sup>9</sup>I MH SCREEN * nterpretive [facility] (08/15/14 4:00 AM) Data: Drugs reported as positive have not been confirmed by a second
tx thod and should be used for medical [...] Cannab Scr Negative Negative 08/15 SCREEN *NA* [facility] (08/15/14 4:00 AM) DRUG U Opiate Scr Negative Negative 08/15 SCREEN *NA* [facility] (08/15/14 4:00 AM) DRUG U Phencyc Negative Negative 08/15 SCREEN Scr *NA* [facility] (08/15/14 4:00 AM) BACTERIAL U S pneumo [...] 6.0 5.0 - 8.0 08/14 STOOL /2014 [facility] URINE AND UA Protein 30 mg/dL Negative 08/14 STOOL mg/dL [place] URINE AND UA Color Yellow Yellow 08/14 STOOL *NA* /2014 [facility] (08/14/14 9:25 AM) URINE AND UA Bili Negative Negative 08/14 STOOL *NA* [facility] (08/14/14 9:25 AM) URINE AND UA Ketones 15 mg/dL Negative 08/14 STOOL mg/dL /2014 [facility] URINE AND UA Glucose Negative Negative 08/14 STOOL (08/14/14 9:25 AM) [place] URINE AND UA 1.0 0.1 - 1.0 08/14 STOOL Urobilinogen /2014 [facility] URINE AND UA Blood Negative Negative 08/14 STOOL (08/14/14 9:25 AM) [place] URINE AND UA Mucus Many /LPF None Seen 08/14 STOOL /LPF /2014 [facility] URINE AND UA Bacteria None Seen None Seen 08/14 STOOL (08/14/14 9:25 AM) [place] URINE AND UA Fine Gran 0-2 /LPF None Seen 08/14 STOOL /LPF [facility] URINE AND UA RBC None Seen 0 - 2 08/14 STOOL (08/14/14 9:25 AM) /2014 [place] URINE AND UA WBC None Seen None Seen 08/14 STOOL (08/14/14 9:25 AM) /2014 [place] URINE AND UA Sq Epi Occasional Few /LPF 08/14 STOOL /LPF /2014 [facility] CARDIAC BNP 94 <=100 08/14 <sup>8</sup>I ENZYMES pg/mL /2014 nterpretive [facility] Data: Elevated results are in line with increasing severity of
con gestive heart failure. Minor elevations between 100 and 300
may be seen with Myocardial Ischemia, Sodium retaining drugs,
an d compensated/t reated heart failure. CARDIAC CK MB 5.6 0.5 - 3.6 08/14 ENZYMES [facility] CARDIAC CK MB Index 0.8 0.0 - 2.5 08/14 ENZYMES [facility] CHEM PANEL A/G Ratio 1.0 0.7 - 1.6 08/14 [facility] CHEM PANEL Globulin 3.7 2.0 - 4.0 08/14 [facility] CHEM PANEL Bili Total 0.8 0.2 - 1.3 08/14 [facility] CHEM PANEL B/C Ratio 8 6 - 25 08/14 [facility] CHEM PANEL Total 7.5 6.4 - 8.4 08/14 Protein [facility] CHEM PANEL Albumin Lvl 3.8 3.5 - 5.0 08/14 [facility] CHEM PANEL Alk Phos 112 39 - 136 08/14 [facility] CHEM PANEL AST 33 0 - 37 08/14 [facility] CHEM PANEL ALT 27 0 - 65 08/14 [facility] CHEM PANEL Lactic Acid 1.2 0.5 - 2.2 08/14 Lvl /2014 [facility] CHEM PANEL Procalcitoni 0.05 0.00 - 08/14 n Lvl 0.10 [facility] HEMATOLOGY INR 1.01 0.85 - 08/14 <sup>10</sup> 1.17 /2014 Interpretive [facility] Data: RECOMMENDED RANGES FOR PROTIME INR:
2.0-3.0 for most medical and surgical thromboemboli c states.
2.5-3.5 for artificial heart valves and recurrent embolism.<br/ >
INR SHOULD BE USED ONLY FOR PATIENTS ON STABLE ANTICOAGULANT THERAPY. HEMATOLOGY PTT 31.0 22.9 - 08/14 <sup>11</sup> 35.8 /2014 Interpretive [facility] Data: Heparin Therapeutic Range: 57 - 92 Seconds HEMATOLOGY PT 13.3 12.0 - 08/14 14.7 /2014 [facility] HEMATOLOGY Anisocyte 1+ None Seen 08/14 *ABN* /2014 [facility] (08/14/14 8:49 AM) HEMATOLOGY Plt Morph Normal 08/14 (08/14/14 8:49 AM) [facility] ast VIRAL - Influ A Negative Negative 08/14 SEROLOGY (08/14/14 8:49 AM) [place] VIRAL - Influ B Negative 15 Negative 08/14 <sup>15</sup> SEROLOGY (08/14/14 8:49 AM) [facility] Data: Influenza A&B Antigen:
Due to the [...] PANEL Magnesium 2.1 1.8 - 2.4 05/13 [facility] CHEM PANEL Phosphorus 4.9 2.5 - 4.5 05/13 [facility] CHEM PANEL eGFR 124 05/13 <sup>1</sup>R [facility] Comment: The [facility] eGFR is calculated [...] PANEL CO2 23 24 - 32 05/13 [facility] CHEM PANEL Calcium Lvl 9.4 8.5 - 10.5 05/13 [facility] CHEM PANEL Potassium 4.9 3.5 - 5.1 05/13 [facility] CHEM PANEL Sodium Lvl 135 135 - 145 05/13 [facility] CHEM PANEL Glucose Lvl 83 70 - 99 05/13 <sup>4</sup>I nterpretive Medical Data: Adult Center reference range values reflect the clinical guidelines
of the [place] [employer]. CHEM PANEL Creatinine 0.8 0.5 - 1.4 05/13 [facility] CHEM PANEL BUN 11 7 - 22 05/13 [facility] CHEM PANEL Chloride Lvl 100 95 - 109 05/13 [facility] CHEM PANEL AGAP 16.9 10.0 - 05/13 [place] 20.0 [facility] HEMATOLOGY Eosinophils 0.3 0.0 - 0.5 05/13 s [facility] HEMATOLOGY Monocytes # 1.3 0.0 - 0.8 05/13 [facility] HEMATOLOGY Lymphocytes 1.2 1.0 - 5.5 05/13 s # [facility] HEMATOLOGY Segs-Bands # 6.4 1.5 - 8.1 05/13 [facility] HEMATOLOGY Basophils 0.4 0.0 - 1.0 05/13 [facility] HEMATOLOGY Eosinophils 3.1 0.0 - 4.0 05/13 [facility] HEMATOLOGY Segs 69.3 45.0 - 05/13 [place] 75.0 [facility] HEMATOLOGY Monocytes 14.0 2.0 - 12.0 05/13 [facility] HEMATOLOGY Lymphocytes 13.2 20.0 - 05/13 [place] 40.0 [facility] HEMATOLOGY Hgb 12.8 14.0 - 05/13 [place] 18.0 [facility] HEMATOLOGY RBC 4.62 4.70 - 05/13 [place] 6.10 [facility] HEMATOLOGY MCV 86.0 80.0 - 05/13 [place] 94.0 /2013 [facility] HEMATOLOGY Hct 39.7 42.0 - 05/13 [place] 54.0 /2013 [facility] HEMATOLOGY Platelet 222 133 - 450 05/13 [facility] HEMATOLOGY RDW 14.3 11.5 - 05/13 [place] 14.5 [facility] HEMATOLOGY MCHC 32.3 32.0 - 05/13 [place] 36.0 [facility] HEMATOLOGY MCH 27.7 27.0 - 05/13 [place] 31.0 [facility] HEMATOLOGY MPV 8.9 7.4 - 10.4 05/13 [facility] HEMATOLOGY WBC 9.2 3.7 - 10.4 05/13 [facility] CARDIAC CK MB Index 0.3 0.0 - 2.5 05/12 [facility] CARDIAC CK MB 1.2 0.5 - 3.6 05/12 [facility] ENZYMES [facility] CARDIAC Total CK 400 12 - 191 05/12 [facility] ENZYMES [facility] CARDIAC Troponin-I <0.02 0.00 - 05/12 [facility] ENZYMES 0. [facility] CHEM PANEL Magnesium 2.2 1.8 - 2.4 05/12 [facility] Lvl [facility] CHEM PANEL eGFR 118 05/12 <sup>2</sup>[place] [facility] Medical Comment: The Center eGFR is [...] Calcium Lvl 9.1 8.5 - 10.5 05/12 [facility] CHEM PANEL CO2 25 24 - 32 05/12 [facility] CHEM PANEL Chloride Lvl 101 95 - 109 05/12 [facility] CHEM PANEL Potassium 4.1 3.5 - 5.1 05/12 [facility] CHEM PANEL Sodium Lvl 137 135 - 145 05/12 [facility] CHEM PANEL Creatinine 0.9 0.5 - 1.4 05/12 [facility] CHEM PANEL BUN 6 7 - 22 05/12 [facility] CHEM PANEL Glucose Lvl 89 70 - 99 05/12 <sup>5</sup>I nterpretive Medical Data: Adult Center reference range values reflect the clinical guidelines
of the [place] [employer]. CHEM PANEL AGAP 15.1 10.0 - 05/12 20.0 [facility] CHEM PANEL Phosphorus 4.6 2.5 - 4.5 05/12 [facility] HEMATOLOGY MCH 28.3 27.0 - 05/12 31.0 [facility] HEMATOLOGY MCHC 33.1 32.0 - 05/12 [place] 36.0 [facility] HEMATOLOGY RDW 14.2 11.5 - 05/12 [place] 14.5 [facility] HEMATOLOGY Platelet 231 133 - 450 05/12 [facility] HEMATOLOGY MPV 9.5 7.4 - 10.4 05/12 [facility] HEMATOLOGY WBC 8.9 3.7 - 10.4 05/12 [facility] HEMATOLOGY Hgb 12.6 14.0 - 05/12 [place] 18.0 [facility] HEMATOLOGY MCV 85.3 80.0 - 05/12 [place] 94.0 [facility] HEMATOLOGY Hct 38.1 42.0 - 05/12 [place] 54.0 [facility] HEMATOLOGY RBC 4.47 4.70 - 05/12 [place] [facility] HEMATOLOGY Monocytes # 0.9 0.0 - 0.8 05/12 [place] [facility] HEMATOLOGY Lymphocytes 1.3 1.0 - 5.5 05/12 [place] [facility] HEMAT[facility]Y Eosinophils 1.9 0.0 - 4.0 05[place]12 [place] [facility] HEMATOLOGY Segs-Bands # 6.5 1.5 - 8.1 05/12 [facility] HEMATOLOGY Basophils 0.4 0.0 - 1.0 05/12 [facility] HEMATOLOGY Segs 72.9 45.0 - 05/12 [place] 75.0 [facility] HEMATOLOGY Monocytes 9.8 2.0 - 12.0 05/12 [facility] HEMATOLOGY Lymphocytes 15.0 20.0 - 05/12 [place] 40.0 [facility] HEMATOLOGY Eosinophils 0.2 0.0 - 0.5 05[place]12 [place] [facility] IMMUNOLOGY [place]-Hep C Negative Negative 05/12 [facility] *NA* /2013 Medical (05/12/14 3:01 AM) [facility] CARDIAC Total CK 447 12 - 191 05/11 [place] [facility] CARDIAC CK MB 2.2 0.5 - 3.6 05/11 [place] [facility] CARDIAC CK MB Index 0.5 0.0 - 2.5 05/11 [place] [facility] CARDIAC Troponin-T <0.010 0.000 - 05/11 [place] [facility] 0. [facility] CARDIAC Troponin-I <0.02 0.00 - 05/11 [place] [facility]YMES 0.40 [facility] CARDIAC Troponin-I <0.02 0.00 - 05/11 [place] [facility] 0.40 [facility] CARDIAC Troponin-T <0.010 0.000 - 05/11 [place] [facility] 0.100 [facility] CARDIAC Total CK 455 12 - 191 05/11 [place] [facility] CARDIAC CK MB Index 0.5 0.0 - 2.5 05/11 [place] [facility] CARDIAC CK MB 2.2 0.5 - 3.6 05/11 [place] [facility] CHEM PANEL Phosphorus 2.9 2.5 - 4.5 05/11 [facility] CHEM PANEL Magnesium 2.0 1.8 - 2.4 05/11 [facility] Lvl [facility] CARDIAC Troponin-T <0.010 0.000 - 05/11 [facility] ENZYMES 0.100 [facility] TOXICOLOGY Vanco Tr 11.9 05/11 <sup>7</sup>I nterpretive Medical Data: Center Therapeutic Range:
Trough: 10 - 20 ug/mL
Peak: 20 - 40 ug/mL
Potential Toxicity: >80 ug/mL TOXICOLOGY Vanco Tr TND 21:30 05/11 [facility] ELECTROLYT AGAP 13.9 10.0 - 05/11 [facility] ES 20.0 [facility] ELECTROLYT eGFR 104 05/11 <sup>3</sup>[facility] Medical Comment: The Center eGFR is [...] ELECTROLYT BUN 9 7 - 22 05/11 [facility] ELECTROLYT Glucose Lvl 106 70 - 99 05/11 <sup>6</sup>I [facility] nterpretive Medical Data: Adult Center reference range values reflect the clinical guidelines
of the [place] [employer]. ELECTROLYT Calcium Lvl 8.6 8.5 - 10.5 05/11 [facility] ELECTROLYT CO2 25 24 - 32 05/11 [facility] ELECTROLYT Sodium Lvl 140 135 - 145 05/11 [facility] ELECTROLYT Creatinine 1.0 0.5 - 1.4 05/11 [facility] ELECTROLYT Potassium 3.9 3.5 - 5.1 05/11 [facility] ELECTROLYT Chloride Lvl 105 95 - 109 05/11 a [facility] HEMATOLOGY Segs 79.8 45.0 - 05/11 [place] 75.0 [facility] HEMATOLOGY Lymphocytes 10.5 20.0 - 05/11 [place] 40.0 [facility] HEMATOLOGY Monocytes 7.4 2.0 - 12.0 05/11 [facility] HEMATOLOGY Eosinophils 2.0 0.0 - 4.0 05/11 [facility] HEMATOLOGY Basophils 0.3 0.0 - 1.0 05/11 [facility] HEMATOLOGY Lymphocytes 1.0 1.0 - 5.5 05[place] [facility] HEMATOLOGY Segs-Bands # 7.4 1.5 - 8.1 05/11 [facility] HEMATOLOGY Monocytes # 0.7 0.0 - 0.8 05/11 [facility] HEMATOLOGY Eosinophils 0.2 0.0 - 0.5 05/11 [place] [facility] HEMATOLOGY MPV 9.3 7.4 - 10.4 05/11 [facility] HEMATOLOGY Platelet 200 133 - 450 05/11 [...] HEMATOLOGY RDW 14.6 11.5 - 05/11 [place] 14. [facility] HEMATOLOGY MCHC 32.7 32.0 - 05/11 [place] 36.0 /2013 [facility] TOXICOLOGY Vanco Tr TND 130am 05/11 [facility] TOXICOLOGY Vanco Tr 2.6 05/11 <sup>8</sup>I [facility] nterpretive Medical Data: Center Therapeutic Range:
Trough: 10 - 20 ug/mL
Peak: 20 - 40 ug/mL
Potential Toxicity: >80 ug/mL CHEM PANEL Lactic Acid 2.2 0.5 - 2.2 05/08 Lvl [facility] CHEM PANEL Globulin 3.5 2.0 - 4.0 05/08 [facility] CHEM PANEL A/G Ratio 1.0 0.7 - 1.6 05/08 [facility] CHEM PANEL AGAP 14.4 10. - 05/08 20.0 [facility] CHEM PANEL B/C Ratio 9 6 - 25 05/08 [facility] CHEM PANEL eGFR 104 05/08 <sup>1</sup>R esult [facility] Comment: The eGFR is calculated using the [...] Alk Phos 75 39 - 136 05/08 [facility] CHEM PANEL Bili Total 0.2 0.2 - 1.3 05/08 [facility] CHEM PANEL Glucose Lvl 123 70 - 99 05/08 <sup>2</sup>I nterpretive [facility] Data: Adult reference range values reflect the clinical guidelines
of the [place] [employer]. CHEM PANEL Sodium Lvl 142 135 - 145 05/08 [facility] CHEM PANEL Creatinine 1.0 0.5 - 1.4 05/08 Lvl [facility] CHEM PANEL Potassium 3.4 3.5 - 5.1 05/08 [facility] [place] CHEM PANEL BUN 9 7 - 22 05/08 [facility] CHEM PANEL Albumin Lvl 3.6 3.5 - 5.0 05/08 [facility] CHEM PANEL ALT 23 0 - 65 05/08 [facility] CHEM PANEL AST 23 0 - 37 05/08 [facility] CHEM PANEL Calcium Lvl 8.4 8.5 - 10.5 05/08 [facility] CHEM PANEL Chloride Lvl 104 95 - 109 05/08 [facility] CHEM PANEL CO2 27 24 - 32 05/08 [facility] CHEM PANEL Total 7.1 6.4 - 8.4 05/08 [facility] CHEM PANEL Procalcitoni <0.05 0.00 - 05/08 n Lvl ng/mL 0. [facility] HEMATOLOGY PTT 32.9 22.9 - 05/08 <sup>4</sup>I 35.8 nterpretive [facility] Data: Heparin Therapeutic Range: 57 - 92 [facility] HEMATOLOGY PT 13.0 12.0 - 05/08 14.7 [facility] HEMATOLOGY INR 0.98 0.85 - 05/08 <sup>3</sup>I 1.17 nterpretive [facility] Data: RECOMMENDED RANGES FOR PROTIME INR:
2.0-3.0 for most medical and surgical thromboemboli c states.
2.5-3.5 for artificial heart valves and recurrent embolism.<br/ >
INR SHOULD BE USED ONLY FOR PATIENTS ON STABLE ANTICOAGULANT THERAPY. HEMATOLOGY MCH 28.5 27.0 - 05/08 31.0 /2013 [facility] HEMATOLOGY MCV 85.0 80.0 - 05/08 94.0 /2013 [facility] HEMATOLOGY Hct 36.8 42.0 - 05/08 54.0 /2013 [facility] HEMATOLOGY WBC 8.6 3.7 - 10.4 05/08 [facility] HEMATOLOGY Hgb 12.3 14.0 - 05/08 18.0 [facility] HEMATOLOGY RBC 4.33 4.70 - 05/08 [facility] 6.10 [facility] HEMATOLOGY Platelet 193 133 - 450 05/08 [facility] HEMATOLOGY RDW 14.3 11.5 - 05/08 [facility] 14. /2013 [facility] HEMATOLOGY MCHC 33.6 32.0 - 05/08 [facility] 36.0 /2013 [facility] HEMATOLOGY MPV 8.9 7.4 - 10.4 05/08 [facility] HEMATOLOGY Eosinophils 2.5 0.0 - 4.0 05/08 [facility] HEMATOLOGY Basophils 0.5 0.0 - 1.0 05/08 [facility] HEMATOLOGY Segs-Bands # 5.9 1.5 - 8.1 05/08 [facility] HEMATOLOGY Lymphocytes 1.7 1.0 - 5.5 05/08 # /2013 [facility] HEMATOLOGY Monocytes # 0.7 0.0 - 0.8 05/08 [facility] HEMATOLOGY Eosinophils 0.2 0.0 - 0.5 05/08 # /2013 [facility] HEMATOLOGY Lymphocytes 20.2 20.0 - 05/08 40.0 /2013 [facility] HEMATOLOGY Monocytes 8.2 2.0 - 12.0 05/08 [facility] HEMATOLOGY Segs 68.6 45.0 - 05/08 [facility] 75.0 /2013 [facility] CARDIAC Total CK 360 12 - 191 02/09 [facility] CHEM PANEL Magnesium 2.0 1.8 - 2.4 02/09 Lvl /2013 [facility] CHEM PANEL Uric Acid 6.4 3.8 - 8.0 02/09 [facility] ELECTROLYT AGAP 9.6 10.0 - 02/09 [facility] 20.0 /2013 [facility] ELECTROLYT eGFR 104 02/09 <sup>1</sup>R ES esult [facility] Comment: The eGFR is calculated using the [...] 8.5 - 10.5 / MH ES /2013 [facility] ELECTROLYT Creatinine 1.0 0.5 - 1.4 / ES Lvl /2013 [facility] ELECTROLYT Chloride Lvl 103 95 - 109 / MH ES /2013 [facility] ELECTROLYT CO2 32 24 - 32 02/09 ES /2013 [facility] ELECTROLYT Sodium Lvl 141 135 - 145 02/09 ES /2013 [facility] ELECTROLYT Potassium 3.6 3.5 - 5.1 02/09 [facility] Lvl /2013 [facility] ELECTROLYT BUN 13 7 - 22 02/09 ES /2013 [facility] ELECTROLYT Glucose Lvl 91 70 - 99 02/09 <sup>4</sup>I [facility] ES /2013 nterpretive [facility] Data: Adult reference range values reflect the clinical guidelines
of the [place] [employer]. HEMATOLOGY WBC 5.7 3.7 - 10.4 / /2013 [facility] HEMATOLOGY RBC 4.40 4.70 - 02/09 MH 6.10 /2013 [facility] HEMATOLOGY MPV 8.8 7.4 - 10.4 02/09 /2013 [facility] HEMATOLOGY RDW 14.0 11.5 - / 14.5 /2013 [facility] HEMATOLOGY Platelet 185 133 - 450 02/09 /2013 [facility] HEMATOLOGY MCV 85.9 80.0 - 02/09 94.0 /2013 [facility] HEMATOLOGY MCH 28.1 27.0 - 02/09 [facility] 31.0 /2013 [facility] HEMATOLOGY MCHC 32.7 32.0 - / MH 36.0 /2013 [facility] HEMATOLOGY Hgb 12.4 14.0 - / MH 18.0 /2013 [facility] HEMATOLOGY Hct 37.8 42.0 - / MH 54.0 /2013 [facility] HEMATOLOGY Monocytes # 0.8 0.0 - 0.8 /11 MH /2013 [facility] HEMATOLOGY Eosinophils 0.2 0.0 - 0.5 /11 MH # /2014 [facility] HEMATOLOGY Lymphocytes 1.6 1.0 - 5.5 /11 MH # /2014 [facility] HEMATOLOGY Segs-Bands # 3.2 1.5 - 8.1 07/11 MH /2014 [facility] HEMATOLOGY Eosinophils 3.0 0.0 - 4.0 02/09 [facility] HEMATOLOGY Basophils 0.3 0.0 - 1.0 02/09 [facility] HEMATOLOGY Monocytes 13.5 2.0 - 12.0 02/09 [facility] HEMATOLOGY Lymphocytes 27.9 20.0 - 02/09 40.0 /2013 [facility] HEMATOLOGY Segs 55.3 45.0 - 02/09 75.0 /2013 [facility] URINE CHEM U Protein 23.7 02/09 <sup>8</sup>I nterpretive [facility] Data: No established reference ranges. URINE CHEM U Creatinine 185.2 02/09 <sup>7</sup>I nterpretive [facility] Data: No established reference ranges. URINE CHEM U Sodium 67 02/09 <sup>9</sup>I nterpretive [facility] Data: No established reference ranges. URINE CHEM U Prot/Creat 0.1 02/09 [facility] CARDIAC Total CK 496 12 - 191 02/08 [facility] CHEM PANEL eGFR 83 02/08 <sup>2</sup>R esult [facility] Comment: The eGFR is calculated using the [...] Sodium Lvl 138 135 - 145 02/08 [facility] CHEM PANEL Creatinine 1.2 0.5 - 1.4 02/08 [facility] CHEM PANEL BUN 18 7 - 22 02/08 [facility] CHEM PANEL Glucose Lvl 100 70 - 99 02/08 <sup>5</sup>I nterpretive [facility] Data: Adult reference range values reflect the clinical guidelines
of the [place] [employer]. CHEM PANEL Calcium Lvl 8.9 8.5 - 10.5 02/08 [facility] CHEM PANEL CO2 32 24 - 32 02/08 [facility] CHEM PANEL Potassium 3.6 3.5 - 5.1 02/08 Lv [facility] CHEM PANEL AGAP 9.6 10.0 - 07 MH 20.0 /2013 [facility] CHEM PANEL Chloride Lvl 100 95 - 109 02/08 [facility] CHEM PANEL Uric Acid 7.8 3.8 - 8.0 02/08 [facility] CHEM PANEL Magnesium 2.2 1.8 - 2.4 02/08 [facility] HEMATOLOGY Platelet 185 133 - 450 02/08 [facility] HEMATOLOGY MCHC 33.0 32.0 - 07 36.0 /2013 [facility] HEMATOLOGY MCV 85.4 80.0 - 07 94.0 /2013 [facility] HEMATOLOGY MCH 28.2 27.0 - 07 MH 31.0 /2013 [facility] HEMATOLOGY Hct 39.5 42.0 - 07 54.0 /2013 [facility] HEMATOLOGY RDW 13.9 11.5 - 07 14.5 /2013 [facility] HEMATOLOGY MPV 8.7 7.4 - 10.4 02/08 [facility] HEMATOLOGY Hgb 13.0 14.0 - 02/08 18.0 /2013 [facility] HEMATOLOGY RBC 4.62 4.70 - 0710 MH 6.10 /2013 [facility] HEMATOLOGY WBC 5.7 3.7 - 10.4 02/08 [facility] HEMATOLOGY Lymphocytes 24.2 20.0 - 07 MH 40.0 /2013 [facility] HEMATOLOGY Segs 59.5 45.0 - 07 MH 75.0 /2013 [facility] HEMATOLOGY Basophils 0.3 0.0 - 1.0 02/08 [facility] HEMATOLOGY Monocytes 12.9 2.0 - 12.0 02/08 [facility] HEMATOLOGY Eosinophils 3.1 0.0 - 4.0 02/08 [facility] HEMATOLOGY Segs-Bands # 3.4 1.5 - 8.1 02/08 [place] HEMATOLOGY Lymphocytes 1.4 1.0 - 5.5 02/08 [facility] # /2013 [facility] HEMATOLOGY Monocytes # 0.7 0.0 - 0.8 02/08 /2013 [facility] HEMATOLOGY Eosinophils 0.2 0.0 - 0.5 02/08 # /2013 [facility] URINE AND Micro? Performed 02/07 [facility] (02/07/14 12:00 PM) [facility] URINE AND UA Hyal Cast 51-100 0 - 2 02/07 [facility] (02/07/14 12:00 PM) [facility] URINE AND UA RBC 0-2 /HPF 0 - 2 02/07 [facility] /2013 [facility] URINE AND UA Sq Epi None Seen Few 02/07 [facility] (02/07/14 12:00 PM) /2013 [facility] URINE AND UA WBC 3-5 /HPF None Seen 02/07 [facility] /HPF /2013 [facility] URINE AND UA Bacteria Occasional None Seen 02/07 [facility] /HPF /HPF /2013 [facility] URINE AND UA Ketones Trace Negative 02/07 [facility] *ABN* /2013 [facility] (02/07/14 12:00 PM) URINE AND UA Bili Small Negative 02/07 [facility] *ABN* /2013 [facility] (02/07/14 12:00 PM) URINE AND UA 0.2 0.1 - 1.0 02/07 [facility] Urobilinogen /2013 [facility] URINE AND UA Blood Negative Negative 02/07 [facility] (02/07/14 12:00 PM) [facility] URINE AND UA Leuk Est Negative Negative 02/07 [facility] (02/07/14 12:00 PM) [facility] URINE AND UA Nitrite Negative Negative 02/07 [facility] (02/07/14 12:00 PM) [facility] URINE AND UA Color Yellow Yellow 02/07 [facility] *NA* /2013 [facility] (02/07/14 12:00 PM) URINE AND UA Turbidity Clear Clear 02/07 [facility] (02/07/14 12:00 PM) [facility] URINE AND UA Spec Grav 1.025 <=1.030 02/07 [facility] /2013 [facility] URINE AND UA pH 6.0 5.0 - 8.0 02/07 [facility] [place] URINE AND UA Protein Trace Negative 02/07 [facility] *ABN* /2013 [facility] (02/07/14 12:00 PM) URINE AND UA Glucose Negative Negative 02/07 [facility] (02/07/14 12:00 PM) /2013 [facility] ast CARDIAC CK MB Index 0.7 0.0 - 2.5 02/07 ENZYMES /2013 [facility] CARDIAC CK MB 5.2 0.5 - 3.6 02/07 ENZYMES [facility] CARDIAC Troponin-I <0.02 0.00 - 07 ENZYMES 0.40 /2013 [facility] CARDIAC Total CK 741 12 - 191 02/07 ENZYMES [facility] CHEM PANEL Lipase Lvl 102 73 - 393 02/07 [facility] CHEM PANEL eGFR 36 02/07 <sup>3</sup>R esult [facility] Comment: The eGFR is calculated using the [...] PANEL AST 41 0 - 37 02/07 [facility] CHEM PANEL Alk Phos 95 39 - 136 02/07 [facility] CHEM PANEL Bili Total 0.8 0.2 - 1.3 02/07 [facility] CHEM PANEL CO2 27 24 - 32 02/07 [facility] CHEM PANEL Total 7.9 6.4 - 8.4 02/07 Protein [facility] CHEM PANEL Calcium Lvl 9.2 8.5 - 10.5 02/07 [facility] CHEM PANEL ALT 40 0 - 65 02/07 [facility] CHEM PANEL Albumin Lvl 4.1 3.5 - 5.0 02/07 [facility] CHEM PANEL Creatinine 2.4 0.5 - 1.4 02/07 [facility] Lvl /2013 [facility] CHEM PANEL BUN 26 7 - 22 / /2013 [facility] CHEM PANEL Glucose Lvl 100 70 - 99 / <sup>6</sup>I /2013 nterpretive [facility] Data: Adult reference range values reflect the clinical guidelines
of the [place] [employer]. CHEM PANEL Chloride Lvl 98 95 - 109 / /2013 [facility] CHEM PANEL Potassium 3.1 3.5 - 5.1 / MH Lvl /2013 [facility] CHEM PANEL Sodium Lvl 135 135 - 145 07/ /2013 [facility] CHEM PANEL Globulin 3.8 2.0 - 4.0 / /2013 [facility] CHEM PANEL B/C Ratio 11 6 - 25 / /2013 [facility] CHEM PANEL AGAP 13.1 10.0 - 07 MH 20.0 /2013 [facility] CHEM PANEL A/G Ratio 1.1 0.7 - 1.6 02/07 /2013 [facility] HEMATOLOGY RDW 13.9 11.5 - 02/07 MH 14.5 /2013 [facility] HEMATOLOGY MCHC 33.3 32.0 - 07 MH 36.0 /2013 [facility] HEMATOLOGY MPV 8.7 7.4 - 10.4 / MH /2013 [facility] HEMATOLOGY Platelet 236 133 - 450 / MH /2013 [facility] HEMATOLOGY MCH 28.3 27.0 - 07 MH 31.0 /2013 [facility] HEMATOLOGY MCV 84.9 80.0 - 07/ MH 94.0 /2013 [facility] HEMATOLOGY Hct 43.9 42.0 - 07/ MH 54.0 /2013 [facility] HEMATOLOGY WBC 8.4 3.7 - 10.4 / /2013 [facility] HEMATOLOGY RBC 5.18 4.70 - 02/07 MH 6.10 /2013 [facility] HEMATOLOGY Hgb 14.6 14.0 - 07/ MH 18.0 /2013 [facility] HEMATOLOGY Eosinophils 0.1 0.0 - 0.5 07/09 MH # /2013 [facility] HEMATOLOGY Segs-Bands # 5.7 1.5 - 8.1 / MH /2013 [facility] HEMATOLOGY Lymphocytes 1.5 1.0 - 5.5 / MH # /2013 [facility] HEMATOLOGY Monocytes # 1.0 0.0 - 0.8 / MH /2013 [facility] HEMATOLOGY Eosinophils 1.5 0.0 - 4.0 / /2013 [facility] HEMATOLOGY Segs 67.6 45.0 - 07/ 75.0 /2013 [facility] HEMATOLOGY Lymphocytes 18.4 20.0 - 02/07 MH 40.0 /2013 [facility] HEMATOLOGY Monocytes 11.9 2.0 - 12.0 02/07 [facility] HEMATOLOGY Basophils 0.6 0.0 - 1.0 02/07 [facility] IMMUNOLOGY [facility] HIV 4th Negative Negative 02/07 GEN (02/07/14 7:45 AM) /2013 [facility] CHEMISTRY Magnesium 2.3 1.8 - 2.4 07/21 Normal Lvl [facility] CHEMISTRY Phosphorus 4.4 2.5 - 4.5 07/21 Normal [facility] CHEMISTRY BNP 23 <=100 07/21 Normal <sup>11</sup> Interpretive [facility] Data: Elevated results are in line with increasing severity of
congesti ve heart failure. Minor elevations between 100 and 300
may be seen with Myocardial Ischemia, Sodium retaining drugs,
and compensated/t reated heart failure. CHEMISTRY eGFR 105 07/21 <sup>5</sup>R esult [facility] Comment: The eGFR is calculated [...] BUN 16 7 - 22 07/21 Normal [facility] CHEMISTRY Creatinine 1.0 0.5 - 1.4 07/21 Normal Lv [facility] CHEMISTRY Sodium Lvl 137 135 - 145 07/21 Normal [facility] CHEMISTRY Potassium 4.4 3.5 - 5.1 07/21 Normal MH Lvl /2012 [facility] CHEMISTRY Chloride Lvl 105 95 - 109 12 Normal MH /2012 [facility] CHEMISTRY CO2 24 24 - 32 12/ Normal MH /2012 [facility] CHEMISTRY Calcium Lvl 8.6 8.5 - 10.5 07/21 Normal MH /2012 [facility] CHEMISTRY Glucose Lvl 107 70 - 99 12/ HI <sup>8</sup>I /2012 nterpretive [facility] Data: Adult reference range values reflect the clinical guidelines
of the [place] [employer]. CHEMISTRY AGAP 12.4 10.0 - 12 Normal MH 20.0 /2012 [facility] HEMATOLOGY RDW 14.3 11.5 - 12 Normal MH 14.5 /2012 [facility] HEMATOLOGY MCHC 32.8 32.0 - 12 Normal MH 36.0 /2012 [facility] HEMATOLOGY MCH 28.3 27.0 - 12 Normal MH 31.0 /2012 [facility] HEMATOLOGY MCV 86.4 80.0 - 07/21 Normal MH 94.0 /2012 [facility] HEMATOLOGY Platelet 243 133 - 450 07/21 Normal MH /2012 [facility] HEMATOLOGY MPV 10.0 7.4 - 10.4 07/21 Normal MH /2012 [facility] HEMATOLOGY WBC X 10x3 11.1 3.7 - 10.4 / HI MH /2012 [facility] HEMATOLOGY Hgb 12.3 14.0 - 12 LOW MH 18.0 /2012 [facility] HEMATOLOGY RBC X 10x6 4.33 4.70 - 12 LOW MH 6.10 /2012 [facility] HEMATOLOGY Hct 37.4 42.0 - 07/21 LOW MH 54.0 /2012 [facility] HEMATOLOGY Monocytes 7.1 2.0 - 12.0 07/21 Normal MH /2012 [facility] HEMATOLOGY Eosinophils 4.6 0.0 - 4.0 12/ HI MH /2012 [facility] HEMATOLOGY Lymphocytes 12.1 20.0 - 12 LOW MH 40.0 /2012 [facility] HEMATOLOGY Segs 75.8 45.0 - 12 HI MH 75.0 /2012 [facility] HEMATOLOGY Lymphocytes 1.3 1.0 - 5.5 / Normal MH # /2012 [facility] HEMATOLOGY Segs-Bands # 8.4 1.5 - 8.1 / HI MH /2012 [facility] HEMATOLOGY Monocytes # 0.8 0.0 - 0.8 07/21 Normal /2012 [facility] HEMATOLOGY Eosinophils 0.5 0.0 - 0.5 07/21 Normal MH # /2012 [facility] HEMATOLOGY Basophils # 0.0 0.0 - 0.2 07/21 Normal [facility] HEMATOLOGY Basophils 0.4 0.0 - 1.0 07/21 Normal [facility] CHEMISTRY Vanco Tr TND See eMAR 07/20 [facility] CHEMISTRY Vanco Tr 19.3 07/20 <sup>14</sup> Interpretive [facility] Data: Therapeutic Range:
Trough: 10 - 20 ug/mL
Peak: 20 - 40 ug/mL
Potential Toxicity: >80 ug/mL CHEMISTRY Magnesium 2.5 1.8 - 2.4 07/20 HI MH Lvl [facility] CHEMISTRY eGFR 105 07/20 <sup>6</sup>R esult [facility] Comment: The eGFR is calculated using the [...] 25 0 - 65 07/20 Normal AMINOTRANSFE [facility] RAS CHEMISTRY Calcium Lvl 8.5 8.5 - 10.5 07/20 Normal MH [facility] CHEMISTRY Albumin Lvl 3.4 3.5 - 5.0 07/20 LOW MH [facility] CHEMISTRY Total 7.0 6.4 - 8.4 07/20 Normal Protein [facility] CHEMISTRY ASPARTATE 25 0 - 37 07/20 Normal TRANSAMINASE [facility] CHEMISTRY Alk Phos 78 39 - 136 07/20 Normal [facility] CHEMISTRY Creatinine 1.0 0.5 - 1.4 07/20 Normal Lvl [facility] CHEMISTRY Potassium 3.8 3.5 - 5.1 07/20 Normal MH Lvl /2012 [facility] CHEMISTRY Sodium Lvl 138 135 - 145 07/20 Normal /2012 [facility] CHEMISTRY CO2 24 24 - 32 07/20 Normal /2012 [facility] CHEMISTRY Chloride Lvl 104 95 - 109 07/20 Normal /2012 [facility] CHEMISTRY BUN 16 7 - 22 07/20 Normal /2012 [facility] CHEMISTRY Glucose Lvl 104 70 - 99 07/20 HI <sup>9</sup>I /2012 nterpretive [facility] Data: Adult reference range values reflect the clinical guidelines
of the [place] [employer]. CHEMISTRY Bili Total 0.4 0.2 - 1.3 07/20 Normal /2012 [facility] CHEMISTRY A/G Ratio 0.9 0.7 - 1.6 07/20 Normal /2012 [facility] CHEMISTRY AGAP 13.8 10.0 - 07/20 Normal MH 20.0 [facility] CHEMISTRY B/C Ratio 16 6 - 25 07/20 Normal /2012 [facility] CHEMISTRY Globulin 3.6 2.0 - 4.0 07/20 Normal /2012 [facility] CHEMISTRY BNP 34 <=100 07/20 Normal <sup>12</sup> /2012 Interpretive [facility] Data: Elevated results are in line with increasing severity of
congesti ve heart failure. Minor elevations between 100 and 300
may be seen with Myocardial Ischemia, Sodium retaining drugs,
and compensated/t reated heart failure. CHEMISTRY Phosphorus 3.4 2.5 - 4.5 07/20 Normal /2012 [facility] HEMATOLOGY Lymphocytes 1.8 1.0 - 5.5 07/20 Normal MH # /2013 [facility] HEMATOLOGY Segs-Bands # 7.4 1.5 - 8.1 / Normal /2012 [facility] HEMATOLOGY Eosinophils 4.8 0.0 - 4.0 / HI /2012 [facility] HEMATOLOGY Basophils 0.4 0.0 - 1.0 / Normal MH /2012 [facility] HEMATOLOGY Eosinophils 0.5 0.0 - 0.5 / Normal MH # /2012 [facility] HEMATOLOGY Monocytes # 1.0 0.0 - 0.8 / HI MH /2012 [facility] HEMATOLOGY Basophils # 0.0 0.0 - 0.2 / Normal /2012 [facility] HEMATOLOGY Lymphocytes 16.5 20.0 - 12/ LOW MH 40.0 /2013 [facility] HEMATOLOGY Monocytes 9.0 2.0 - 12.0 07/20 Normal MH /2012 [facility] HEMATOLOGY Segs 69.3 45.0 - 07/20 Normal MH 75.0 /2012 [facility] HEMATOLOGY MPV 9.9 7.4 - 10.4 07/20 Normal MH /2012 [facility] HEMATOLOGY Platelet 227 133 - 450 07/20 Normal MH /2012 [facility] HEMATOLOGY RDW 14.1 11.5 - 07/20 Normal MH 14.5 /2012 [facility] HEMATOLOGY MCH 28.0 27.0 - 07/20 Normal MH 31.0 /2012 [facility] HEMATOLOGY MCHC 31.9 32.0 - 07/20 LOW MH 36.0 /2012 [facility] HEMATOLOGY MCV 87.6 80.0 - 07/20 Normal MH 94.0 [facility] HEMATOLOGY WBC X 10x3 10.7 3.7 - 10.4 07/20 HI MH /2012 [facility] HEMATOLOGY RBC X 10x6 4.38 4.70 - 07/20 LOW MH 6.10 [facility] HEMATOLOGY Hgb 12.2 14.0 - 07/20 LOW MH 18.0 [facility] HEMATOLOGY Hct 38.4 42.0 - 07/20 LOW MH 54.0 [facility] CHEMISTRY Mode Art Rm Air 07/20 Normal MH (07/20/2013 04:40:58) /2012 [facility] CHEMISTRY pCO2 Art 33 35 - 45 07/20 LOW MH /2012 [facility] CHEMISTRY pH Art 7.44 7.35 - 07/20 Normal MH 7.45 /2012 [facility] CHEMISTRY BE Art -1 -2-2 - 2 07/20 Normal MH /2012 [facility] CHEMISTRY HCO3 Art 22 22 - 26 07/20 Normal MH /2012 [facility] CHEMISTRY pO2 Art 83 80 - 100 07/20 Normal MH /2012 [facility] CHEMISTRY Allens Art Positive 07/20 Normal MH (07/20/2013 04:40:58) [facility] CHEMISTRY Temp Art 37.0 07/20 MH /2012 [facility] CHEMISTRY Site Art Left Rad 07/20 Normal MH (07/20/2013 04:40:58) [facility] CHEMISTRY O2 Sat Art 96.6 95.0 - 07/20 Normal MH 100.0 [facility] IMMUNOLOGY TB - NIL 0.00 07/19 <sup>16</sup> MH Result [facility] Comment: The Nil tube value [...]
For additional information, please refer to
[email or web address](This link is being provided for informational /
educati onal purposes only.)

Test Performed at:
[facility]<br/&g t;[address] [place] [address]
[place] [address] BENJIE BAUTISTA M.D. IMMUNOLOGY Mitogen - 0.10 07/19 NIL /2012 [facility] IMMUNOLOGY NIL 0.01 07/19 [facility] IMMUNOLOGY Quantiferon INDETERMIN NEGATIVE 07/19 ABN <sup>15</sup> MH - TB Gold Result [facility] Comment: Results are indeterminate for
response to ESAT-6,TB7.7 and/or
CFP-10 test antigens. CHEMISTRY Troponin-I 0.03 0.00 - 07/19 Normal MH 0.40 /2012 [facility] CHEMISTRY Total CK 456 12 - 191 07/19 HI MH /2012 [facility] CHEMISTRY CK-MB INDEX 0.5 0.0 - 2.5 07/19 Normal MH /2012 [facility] CHEMISTRY CK MB 2.2 0.5 - 3.6 07/19 Normal /2012 [facility] CHEMISTRY BNP 104 <=100 07/19 HI <sup>13</sup> MH /2012 Interpretive [facility] Data: Elevated results are in line with increasing severity of
congesti ve heart failure. Minor elevations between 100 and 300
may be seen with Myocardial Ischemia, Sodium retaining drugs,
and compensated/t reated heart failure. CHEMISTRY eGFR 81 07/19 <sup>7</sup>R /2012 esult [facility] Comment: The eGFR is calculated using the [...] 8.7 8.5 - 10.5 07/19 Normal /2012 [facility] CHEMISTRY CO2 24 24 - 32 07/19 Normal /2012 [facility] CHEMISTRY AGAP 13.2 10.0 - 07/19 Normal 20.0 /2013 [facility] CHEMISTRY Potassium 3.2 3.5 - 5.1 07/19 LOW MH Lvl /2012 [facility] CHEMISTRY Chloride Lvl 104 95 - 109 07/19 Normal /2012 [facility] CHEMISTRY Creatinine 1.1 0.5 - 1.4 07/19 Normal Lvl /2012 [facility] CHEMISTRY BUN 14 7 - 22 07/19 Normal /2012 [facility] CHEMISTRY Glucose Lvl 116 70 - 99 07/19 HI <sup>10</sup> /2012 Interpretive [facility] Data: Adult reference range values reflect the clinical guidelines
of the [place] [employer]. CHEMISTRY Sodium Lvl 138 135 - 145 07/19 Normal /2012 [facility] CHEMISTRY LDL 111 <=99 12/18 HI MH (Calculated) /2012 [facility] CHEMISTRY HDL 29 >=61 / LOW MH /2012 [facility] CHEMISTRY Chol 156 <=199 07/19 Normal MH /2012 [facility] CHEMISTRY Trig 79 <=149 12/ Normal MH /2012 [facility] CHEMISTRY CHD Risk 5.38 4.00 - 12 Normal MH 7.30 /2012 [facility] CHEMISTRY Magnesium 1.7 1.8 - 2.4 07/19 LOW Lvl /2012 [facility] CHEMISTRY Phosphorus 3.2 2.5 - 4.5 07/19 Normal MH /2012 [facility] CHEMISTRY Lactic Acid 1.1 0.5 - 2.2 07/19 Normal MH Lvl /2012 [facility] HEMATOLOGY Hgb 12.6 14.0 - 07/19 LOW MH 18.0 /2012 [facility] HEMATOLOGY RBC X 10x6 4.49 4.70 - 07/19 LOW MH 6.10 /2012 [facility] HEMATOLOGY MPV 9.8 7.4 - 10.4 07/19 Normal MH /2012 [facility] HEMATOLOGY MCHC 32.5 32.0 - 07/19 Normal MH 36.0 /2012 [facility] HEMATOLOGY RDW 14.6 11.5 - 07/19 HI MH 14.5 /2012 [facility] HEMATOLOGY Hct 38.8 42.0 - 07/19 LOW MH 54.0 /2012 [facility] HEMATOLOGY Platelet 227 133 - 450 07/19 Normal MH /2012 [facility] HEMATOLOGY MCH 28.0 27.0 - 07/19 Normal MH 31.0 /2012 [facility] HEMATOLOGY MCV 86.4 80.0 - 07/19 Normal MH 94.0 /2012 [facility] HEMATOLOGY WBC X 10x3 15.7 3.7 - 10.4 07/19 HI MH /2012 [facility] HEMATOLOGY PB Smear The CBC 07/19 Path and /2012 [facility] peripheral smear from 07/19/2013 , 0526 hours shows mild granulocyt osis without a significan t left shift, mild monocytosi s and mild normochrom ic normocytic anemia. No atypical or immature leukocytes are seen. No schistocyt es or spherocyte s are seen. Platelets are adequate. Simone Calderon M.D. 07/19/2013 , 1126 hours. HEMATOLOGY Monocytes 8.1 2.0 - 12.0 07/19 Normal MH /2012 [facility] HEMATOLOGY Eosinophils 0.3 0.0 - 0.5 07/19 Normal MH # /2012 [facility] HEMATOLOGY Basophils # 0.1 0.0 - 0.2 07/19 Normal MH /2012 [facility] HEMATOLOGY Monocytes # 1.3 0.0 - 0.8 / HI MH /2012 [facility] HEMATOLOGY Eosinophils 1.7 0.0 - 4.0 / Normal MH /2012 [facility] HEMATOLOGY Lymphocytes 1.4 1.0 - 5.5 /18 Normal MH # /2012 [facility] HEMATOLOGY Basophils 0.4 0.0 - 1.0 / Normal MH /2012 [facility] HEMATOLOGY Segs-Bands # 12.7 1.5 - 8.1 / HI MH /2012 [facility] HEMATOLOGY Lymphocytes 8.8 20.0 - 07/19 LOW MH 40.0 /2012 [facility] HEMATOLOGY Segs 81.0 45.0 - / HI MH 75.0 /2012 [facility] IMMUNOLOGY HIV 1/2 Ab Negative Negative 07/19 MH *NA* /2012 [facility] (07/19/2013 05:26:00) BACTERIAL U S pneumo Negative 1 Negative 07/19 Normal <sup>1</sup>R M H - SEROLOGY Ag (07/19/2013 01:00:00) esult [facility] Comment: Collection date/time has been modified to: 01:00:00. Previous collection date/time: 01:00:00. MICRO MISC U Legion Ag Negative 2, 3 Negative 07/19 Normal <sup>2</moreno p>R MH - SEROLOGY (07/19/2013 01:00:00) /2012 esult [facility] Comment: Collection date/time has been modified to: 01:00:00. Previous collection date/time: 01:00:00.<br/ ><sup>3</sup> Interpretive Data: This kit tests for Legionella pneumophila Serogroup 1 Antigen. CHEMISTRY CK MB 2.1 0.5 - 3.6 07/19 Normal /2012 [facility] CHEMISTRY CK-MB INDEX 0.5 0.0 - 2.5 07/19 Normal [facility] CHEMISTRY Troponin-I 0.04 0.00 - 07/19 Normal MH 0.40 /2012 [facility] CHEMISTRY Total CK 458 12 - 191 / HI MH /2012 [facility] CHEMISTRY Total CK 458 12 - 191 / HI /2012 [facility] CHEMISTRY Lactic Acid 1.7 0.5 - 2.2 07/19 Normal MH Lvl /2012 [facility] CHEMISTRY pCO2 Art 35 35 - 45 07/18 Normal /2012 [facility] CHEMISTRY pH Art 7.44 7.35 - 07/18 Normal MH 7.45 /2013 [facility] CHEMISTRY O2 Sat Art 93.2 95.0 - 07/18 LOW MH 100.0 /2012 [facility] CHEMISTRY pO2 Art 65 80 - 100 07/18 LOW MH /2012 [facility] CHEMISTRY BE Art 0 -2-2 - 2 07/18 Normal MH /2012 [facility] CHEMISTRY HCO3 Art 24 22 - 26 07/18 Normal /2012 [facility] CHEMISTRY Site Art Right Ra 07/18 Normal (07/18/2013 13:38:43) [facility] CHEMISTRY Allens Art Positive 07/18 Normal MH (07/18/2013 13:38:43) [facility] CHEMISTRY Mode Art Rm Air 07/18 Normal (07/18/2013 13:38:43) [facility] CHEMISTRY Temp Art 37.0 07/18 [facility] VIRAL - Influ B Negative 4 Negative [...] INDEX 0.8 0.0 - 2.5 07/18 Normal [facility] CHEMISTRY ASPARTATE 26 0 - 37 07/18 Normal TRANSAMINASE /2012 [facility] CHEMISTRY B/C Ratio 9 6 - 25 07/18 Normal [facility] CHEMISTRY ALANINE 33 0 - 65 07/18 Normal AMINOTRANSFE /2012 [facility] RASE CHEMISTRY Globulin 3.5 2.0 - 4.0 07/18 Normal [facility] CHEMISTRY A/G Ratio 1.1 0.7 - 1.6 07/18 Normal [facility] CHEMISTRY Alk Phos 101 39 - 136 07/18 Normal [facility] CHEMISTRY Bili Total 1.0 0.2 - 1.3 07/18 Normal [facility] CHEMISTRY Albumin Lvl 4.0 3.5 - 5.0 07/18 Normal [facility] CHEMISTRY Total 7.5 6.4 - 8.4 07/18 Normal [facility] CHEMISTRY Troponin-I 0.03 0.00 - 07/18 Normal 0.40 [facility] CHEMISTRY CK MB 4.4 0.5 - 3.6 07/18 HI [facility] Pathology Reports No Data Provided for This Section Diagnostic Reports Report Value Date Source Carotid artery Clinical Indication: Acute Cerebral Acci dent - R/o cva 04/19/2017 [facility] Doppler bilat US Comparison: None TECHNIQUE: Carnes-scale, [...] occlusion High, low, or Variable undetectable SL: [id number] Brain wo contrast Clinical Indication: Acute cognitive change [facility] MRI Comparison: Brain MR 07/21/2016 and brain [...] Indication: Headaches since 12:00 PM; 0 04/18/2017 [facility] Comparison: 07/27/2016 FINDINGS: AP chest radiographs shows [...] with the exam findings and impression. [id number] Clinical Indication: Headache and left face/arm tingling. [...] contrast CT Patient Name: ALLYSON LESLIE [address] [facility] : 1965; Age: 51 years y/o Male MR: [id number] Study: Brain wo contrast CT 02/09/2017 12:35 [...] contrast CT Patient Name: ALLYSON LESLIE 08/27/[address] [facility] : 1965; Age: 50 years y/o Male MR: [id number] Study: Brain wo contrast CT 08/27/2016 1:45 [...] to be due to volume loss. SL: [id number] Brain/Neck CTA CTA NECK AND BRAIN WITH CONTRAST 07/30/[address] [facility] INDICATION: Seizures, Aphasia, DLP: 2040.09 COMPARISON: None TECHNIQUE: CTA of the neck a nd brain was performed after administration of intravenous contrast. Coronal, sagittal, and 3-D reformatted images were utilized. DISCUSSION: Image detail is degraded by motion artifacts. In addition, there is suboptimal timing of the contrast bolus, with poor opacification of the hopi of [place] and overlapping venous opacification. Evaluation [...] patent. 2. Grossly unremarkable CTA of the hopi of [place] lis. SL:16 Brain wo contrast MRI BRAIN WITHOUT CONTRAST 07/29/[address] [facility] MRI INDICATION: Ataxia COMPARISON: CT brain [...] 1view DX Patient Name: ALLYSON LESLIE 07/27/[address] [facility] : 1965; Age: 50 years y/o Male MR: [id number] * CHEST, portable, 1 view HISTORY: Chest [...] No active disease. 2. Moderate cardiomegally. SL: [id number] Brain wo contrast CT EXAM: CT BRAIN WITHOUT CONTRAST 07/27/[address] [facility] DATE: 07/27/2016 11:29 AM [facility] INDICATION: Weakness. Headache. Left-sided numbn ess. ADDITIONAL [...] no significant change compared to 02/18/2016. 03/07/[address] [facility] IMPRESSION: No acute radiographic abnormality in the chest. SL [id number] Chest w contrast CT CT CHEST WITH CONTRAST, WITH PULMONARY E MBOLUS PROTOCOL 02/18/[address] [facility] INDICATION: Syncope COMPARISON: CT chest 08/15/2014 [...] WITHOUT CONTRAST 02/18/2016 [facility] INDICATION: Syncope, possible seizure, headache COMPARISON: None DISCUSSION: There is no evidence of a cute vascular insults, space occupying lesions, hemorrhage, hydrocephalus, midline shift, or extra-axial fluid collections. The calvarium is intact. IMPRESSION: No acute intracranial abnormalities are visua lized. SL:16 Chest 1view DX Study: Chest 1view DX portable 02/18/2016 1234 h ours 02/18/[address] [facility] Clinical Indication: Chest pain; Comparison: Chest 08/14/2014 FINDINGS: The cardiac silhou ette is top normal in size. The mediastinum is not remarkable. The lungs are incompletely i nflated. No pneumonia, vascular congestion or pleural effusion is seen. Thoracic spondylosis is note d and minor degenerative changes involve the shoulders. IMPRESSION: No acute abnormality. SL: [id number] Renal Stone CT Name: ALLYSON LESLIE 11/22/2014 [facility] : 1965 Ordering Physician: [...] hand. SL: 24 Abdomen/Pelvis wo IV Name: INDIRA LESLIETIMOTEO 02/07/2014 [facility] contrast CT : [...] of diverticulitis. SL: 24 Chest 1view NAME: INDIRA LESLIETIMOTEO 02/07/2014 [facility] : 1965 SEX: M 41 Ordering Physician: [...] Comments Source Systolic (mm Hg) 130 04/21/2017 [facility] t Diastolic (mm Hg) 82 04/21/2017 [facility] st Heart Rate 63 04/21/2017 [facility] Respitory Rate 19 04/21/2017 [facility] Temperature Oral (F) 98.4 F 04/21/2017 [facility] Height 180.34 cm 04/21/2017 [facility] BMI Calculated 31.45 04/21/2017 [facility] Weight 102.273 04/21/2017 [facility] Respitory Rate 18 04/19/2017 [facility] Systolic (mm Hg) 137 04/19/2017 [facility] Diastolic (mm Hg) 89 04/19/2017 [...] Calculated 36.69 04/18/2017 [facility] Weight 100 04/18/2017 [facility] Height 165.1 cm 04/18/2017 [facility] Heart Rate [...] Rate 16 11/22/2014 [facility] Weight 93.835 11/22/2014 [facility] BMI Calculated 34.42 11/22/2014 [facility] Height 165.1 [...] 41.69 08/14/2014 [facility] Height 165.1 cm 08/14/2014 [facility] Diastolic (mm Hg) 82 05/13/2014 [facility] Systolic (mm Hg) 120 05/13/2014 [facility] Heart Rate 78 05/13/2014 [facility] Respitory Rate 20 05/13/2014 [facility] Temperature Oral (F) 98.6 F 05/13/2014 [facility] Temperature Oral (F) 98.5 F 05/13/2014 [facility] Respitory Rate 20 05/13/2014 [facility] Systolic (mm Hg) 114 05/13/2014 [facility] Heart Rate 85 05/13/2014 [facility] Diastolic (mm Hg) 76 05/13/2014 [facility] Temperature Oral (F) 98.7 F 05/13/2014 [facility] Center Diastolic (mm Hg) 80 05/13/2014 [facility] edical Center Respitory Rate 18 05/13/2014 [facility] Center Heart Rate 82 05/13/2014 [facility] Systolic (mm Hg) 128 05/13/2014 [facility] dical Center Weight 97.727 05/09/2014 [facility] Height 165.1 cm 05/09/2014 [facility] BMI Calculated 35.85 05/09/2014 [facility] scooby Center Weight 97.727 05/09/2014 [facility] Height 165.1 cm 05/09/2014 [facility] Weight 113.636 05/09/2014 [facility] Height 165.1 cm 05/09/2014 [facility] BMI Calculated 41.69 05/09/2014 [facility] Respitory Rate 16 05/09/2014 [facility] Heart Rate 90 05/09/2014 [facility] Diastolic (mm [...] 165.1 cm 07/18/2013 [facility] Weight 97.727 07/18/2013 [facility] Encounters Location Location Encounter Encounter Reason Attending ADM DC Stat us Source Details Type Number For Provider Date Date Visit Not Sent Inpatient [id number] NGOZI PIERRE 07/18 07/21 Ruby diaz 0 II ed [facility] EC [id number] Cliff Oleary 11/29 11/29 M [facility] [facility] Inpatient [id number] Yady 02/07 02/09 Lucien 2 [place] /2013 [place] [facility] [place] [id number] Jaskaran Yi 05/08 05/09 [place] [facility] Inpatient [id number] Jaskaran Yi 05/09 05/13 [facility] [place] [facility] Inpatient [id number] Abilio Simsi 08/14 08/18 [place] [facility] [id number] Kristen 11/22 11/22 [place] [facility] 5 [facility] [place] [id number] Wilfred Hogan 02/17 02/17 [place] [facility] EC [id number] Stanley Mendez 03/07 03/07 [facility] OP Therapy [id number] Norman De Guzman 05/26 06/25 [facility] Patients 0 [facility] OP Therapy [id number] Norman De Guzman 07/10 08/09 [facility] Patients 1 [facility] Inpatient [id number] Khris 07/27 07/30 [place] 8 Moon /2015 [facility] Emergency [id number] Jim Trujillo 08/27 08/27 [facility] [id number] [facility] Outpatient [id number] DARRYLAMMATON 10/01 [facility] A [facility] Outpatient [id number] DARRYLAMMATON 01/11 [facility] [place] [facility] [id number] [facility]09 [facility] [id number] 02/09 02/10 [facility] Outpatient [id number] [facility] 02/15 [facility] [id number] Amena 04/18 04/19 Lucien 1 Jose /2016 [facility] Emergency [id number] Jaskaran Brown 04/21 04/21 [facility] Outpatient [id number] [facility] 05/12 [facility] 5 A [place] [facility] Phone [id number] 11/04 11/06 Mis er Neurology [facility] Procedures Procedure Code Date Perfomer Comments Source MRI of brain and [id number] 07/29/2016 [facility] [place] brain stem Neuro,[facility] Angioplasty of [id number] [facility] [place] blood vessel Neuro,[facility] Hand repair [id number] [facility] Assessment and Plan Assessment and Plan Date Source Extracted from:Title: Clinical Document 04/19/2017 [place] Author: Manohar Pope MD Date: 04/19/17 Patient admitted to my service on 2016, discharged on 04/19/2017. He can go back to his rehabilitation center without any restriction. Please call me if there is ryann question (Shivam Pope MD. [phone]) Extracted from:Title: Hospitalist H&P * Author: Amena [...] full code Extracted from:Title: Progress Note 07/30/2016 [facility] Author: Rin Morales Date: 07/30/16 Progress Note - Daily [facility] Completed: , JUL 30, 2016, 13:28 by Rin Morales RM: 508 - 01, NW DN5N TIFFANY LESLIE 50y (: 1965) M Attending: Khris Moon MD Service: Pulmonology/Respiratory Therapy Reason for Admission: ACUTE CEREBROVASCULAR ACCIDENT Working DRG: Other disorders of nervous system w/o CC/NURSING HOME Code status: None Specified=FULL CODE Isolation: [...] is a 50 y/o right-hand lisa nant -[place] male c PMH of CVA in 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 Leslie is a 50 y/o right-hand lisa nant -[place] male c PMH of CVA in 04/2016 c residual L hemiparesis and mild dysarthria, HTN, HLD, ETOH abuse, tobacco abuse who presented to [facility] followi ng episode of increased L [...] is a 50 y/o right-hand lisa nant -[place] male c PMH of CVA in 04/2016 c residual L hemiparesis and mild dysarthria, HTN, HLD, ETOH abuse, tobacco abuse who presented to [facility] followi ng episode of increased L [...] movie, then went back to bed around [id number] at which time pt was in his [...] CHF (congestive heart failure) / SNOMED CT [id number] / Confirmed CVA (cerebral vascular accident) / SNOMED CT 181605342 / Con firmed HTN - Hypertension / SNOMED CT 5788129232 / Confirmed Hypercholesterolemia / SNOMED CT 22281993 / Confirmed Histories Past Medical History: Active CHF (congestive heart failure) ([id number]): Onset in 2012 at 47 years. HTN - Hypertension (8824319560) Hypercholesterolemia (89144448) CVA (cerebral vascular accident) (547416002) Resolved Diabetes ([id number]): Resolved. Spider bite wound (4791816527): Resolved. Syncope (712209836): Resolved. H/O: stroke (8670304765): Resolved. Family History: Type 1 diabetes mellitus Mother Sister Father High blood pressure Father Mother Migraine Father Stroke Father Alzheimer's disease Father Osteoarthritis Father Procedure history: Hand repair (169761256). Social History Social and Psychosocial Habits Alcohol [...] that day, so he instead went to ri s new job and did not get [...] including deltoid, biceps, t riceps, wrist extension, therapy aide, iliopsoas , quadriceps, anterior tibialis, gastrocnemius and extensor hallucis longus. Left upper and lower extremities including deltoid 5-/5, biceps 5-/5, triceps 4+-5-/5 , wrist extension 5-/5, therapy aide 5-/5, iliop soas 4+-5-/5, quadriceps 5-/5, anterior [...] is a 50 y/o right-hand lisa nant -[place] male c PMH of CVA in 04/2016 c residual L hemiparesis and mild dysarthria, HTN, HLD, ETOH abuse, tobacco abuse who presented to [facility] followi ng episode of increased L [...] reporting is ready to quit -- per [place] state law, pt is not to dri [...] -- will continue to follow Dictated by HARPREET CardosoC on be half of Dr. Jan Ho. [...] to influenza infection. Extracted from:Title: Hand 05/13/2014 [facility] Author: Michael Randolph MD Date: 05/13/14 [...] and he began to experience chest pain, /10 in severity, localized to the left chest [...] wave sim vation. He was evaluated by microarray operations vice president overnight who found his chest pain to be reproducible on exertion and EKG consistent with early repolarization. He w as given morphine with relief of chest p ain as well as ASA and metoprolol for continued hypertension. This morning he endorsed continued chest pain 01/09 in severity. He states that he has [...] evaluation. Cher Maxwell MD PGY-1, Anesthesiology Pager [phone] Addendum by Arnulfo Santiago MD on 05/11/2014 [...] Date: 05/09/14 Patient: ANUJ INDIRATIMOTEO Bustamante RN: [id number] Age: 48 years Sex: Male : 1965 Associated Diagnoses: None Author: Marcelina Delgadillo MD Chief Complaint 05/09/2014 05:43 left hand edema and pain 05/09/2014 02:58 Transfer from [facility] for tenosynovitis, Accepting Trevin ALDANA. Swollen L [...] mg, PO, Q12H cefTRIAXone: 1 gm, IVPB, [id number] docusate: 100 mg, 1 cap, PO, BID [...] CHF (congestive heart failure) / SNOMED CT [id number] / Confirmed HTN - Hypertension / SNOMED CT 3679437029 / Confirmed Hypercholesterolemia / SNOMED CT 31390432 / Confirmed Histories Past Medical History: Active CHF (congestive heart failure) ([id number]): Onset in 2012 at 47 years. HTN - Hypertension (0143575187) Hypercholesterolemia (18379648) Resolved Diabetes ([id number]): Resolved. Social History Social and Psychosocial Habits [...] 5. DVT ppx heparin 6. Full Code [facility] is primary Addendum by Radha Chu MD [...] keep NPO for possible surgery this eveni nat per plastics. Extracted from:Title: Cardiology Note * [...] Jose Jackson MD Date: 02/08/14 Consultation Dictated. Artificial Breast Fabricator pending. 1. dehydration 2. DARSHAN 3. Rhabdomyolysis [...] beer a day. Social History TypeResponse 09/14/2016 Sophia martins Substance Abuse Use: None. Employment/School Status: Employed. [...] beer a day. Social History TypeResponse 09/14/2016 [facility] Caleb mcintosh Substance Abuse Use: None. Employment/School [...] beer a day. Social History TypeResponse 07/27/2016 [facility] Substance Abuse Use: None. Employment/School [...] beer a day. Social History TypeResponse 02/07/2014 [facility] Substance Abuse Use: None Employment/School Status: Employed [...]
--- OUTSIDE RECORDS SUMMARY | 2020-07-28 12:58 | XMS REPORT | Continuity of Care Document ---
:1965 Author Organization [facility] t Address [address] [place] [address] Care Team Providers Name Role Phone Demian Botello MD. Primary Care Physician Jame Yi Attending Clinician [...] - obesity - Obesity 00:00: Prac tic e Alcohol Alcohol Problem Active [place] dependence Dependence 08-25 johana 00:00: Practic 00 e Insomnia Insomnia Problem Active Miranda ge 08-25 Family 00:00: Practic 00 e Hypertensi Hypertensi Problem Active [facility] 08-25 Family disorder Disorder 00:00: Practi c e Congestive Congestive Problem Active [facility] heart Heart 08-25 Family failure Failure 00:00: Practic 00 e Seizure Seizure Problem Active [facility] 08-25 Family 00:00: Practic e History of History of Problem Active [facility] cerebrovas Cerebrovas 08-25 [facility] cular 00:00: Practic accident Accident 00 e without without residual Residual deficits Deficits GOMES Diagnosis Active 2017-04-21 Mem oria 04-20 02:25:00 l GOMES 08:00: Lucien 00 Active 04/20/2017 [facility] HEADACHE Diagnosis Active 2017-04-18 M emoria 04-18 19:02:00 l HEADACHE 00:00: Delvin n 00 Active 04/18/2017 [facility] I63.9 Diagnosis Active 2017-02-09 Mem oria STROKE, 02-09 12:12:00 l R58 I63.9 12:00: Center HEMORRHAGE STROKE, 00 R58 HEMORRHAGE Active 02/09/2017 [facility] STROKE Diagnosis Active 2016-12-10 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 SEIZURE Diagnosis Active 2016-08-27 Me moria 08-27 14:47:00 l SEIZURE 00:00: Center 00 Active 08/27/2016 [facility] ACUTE Diagnosis Active 2015-082016-07-28 Mem oria CEREBROVAS 09-27 12:07:00 l CULAR ACUTE 00:00: Center ACCIDENT CEREBROVAS 00 CULAR ACCIDENT Active 07/27/2016 [facility] ARM Diagnosis Active 2015-082016-07-27 Mem oria WEAKNESS, 09-27 11:50:00 l FACIAL ARM 00:00: Center DROOP WEAKNESS, 00 FACIAL DROOP Active 07/27/2016 [facility] CHEST PAIN Diagnosis Active 2016-03-07 Memoria 03-07 14:11:00 l CHEST 00:00: Lucien PAIN 00 Active 03/07/2016 [facility] SYNCOPE Diagnosis Active 2016-02-18 Md moria 02-17 14:55:00 l SYNCOPE 00:00: Lucien 00 Active 02/18/2016 [facility] BACK PAIN Diagnosis Active 2014-11-22 Memoria 11-20 17:10:00 l BACK 09:00: Center PAIN 00 Active 11/20/2014 [facility] SHORTNESS Diagnosis Active 2015-02-20 Memoria OF BREATH 1- 10:16:00 l 05:00: Lucien SHORTNESS 00 OF BREATH Active 08/14/2014 [facility] OTHER Diagnosis Active 2013-082014-05-09 Mem oria TENOSYNOVI 0-08 03:18:00 l TIS OF OTHER 00:00: Center HAND AND TENOSYNOVI 00 WRIST TIS OF HAND AND WRIST Active 05/09/2014 [facility] HAND EDEMA Diagnosis Active 2013-082014-05-09 Memoria 0-07 00:38:00 l HAND 00:00: Lucien EDEMA 00 Active 05/08/2014 [facility] HAND Diagnosis Active 2013-082014-05-17 Mem oria INFECTION 0-02 21:53:00 l HAND 00:00: Center INFECTION 00 Active 05/03/2014 [facility] ABDOMINAL Diagnosis Active 2014-02-08 Memoria PAIN 02-07 13:31:00 l 04:00: Center ABDOMINAL 00 PAIN Active 02/07/2014 [facility] SPITTING Diagnosis Active 2013-11-29 M emoria UP BLOOD 11-28 05:06:00 l SPITTING 00:00: Delvin gonzales UP BLOOD 00 Active 11/28/2013 [facility] FLU LIKE Diagnosis Active 2012-082013-07-20 M emoria SYMPTOMS 2-17 01:36:00 l FLU LIKE 00:00: Delvin n SYMPTOMS 00 Active 07/18/2013 [facility] Congestive Problem Active 2018-02-11 M emoria heart 1- 13:48:01 l failure 00:00: Center (disorder) Congestive 00 heart failure (disorder) Active 08/02/2012 Problem 02/11/2018 [facility], [facility] Diabetes Problem Resolve 2018-02-11 Me moria mellitus d 13:48:01 l (disorder) Diabetes He rmann mellitus (disorder) Resolved Problem 02/11/2018 [facility], [facility] History of Problem Resolve 2018-02-11 Memoria - CVA d 13:48:01 l (context-d History Her west ependent of - CVA category) (context-d ependent category) Resolved Problem 02/11/2018 [facility], [facility] Spider Problem Resolve 2018-02-11 Mike una bite wound d 13:48:01 l (disorder) Spider Herm lexy bite wound (disorder) Resolved Problem 02/11/2018 [facility], [facility] Syncope Problem Resolve 2018-02-11 Mem oria (disorder) d 13:48:01 l Syncope Center (disorder) Resolved Problem 02/11/2018 [facility], [facility] Cerebrovas Problem Active 2018-02-11 M emoria cular 13:48:01 l accident Lucien (disorder) Cerebrovas cular accident (disorder) Active Problem 02/11/2018 [facility], [facility] Hyperchole Problem Active 2018-02-11 M emoria sterolemia 13:48:01 l (disorder) Delvin n Hyperchole sterolemia (disorder) Active Problem 02/11/2018 [facility], [facility] Obesity Problem Active 2018-02-11 Mike una (disorder) 13:48:01 l Obesity Center (disorder) Active Problem 02/11/2018 [facility], [facility], [facility] CHF NOS Diagnosis Active 2013-07-20 Md moria 01:36:00 l CHF NOS Center Active [facility] RENAL Diagnosis Active 2014-02-08 Mem oria FAILURE 13:31:00 l NOS RENAL Center FAILURE NOS Active [facility] BACTERIAL Diagnosis Active 2014-05-17 Memoria INFECTION 21:53:00 l NOS Lucien BACTERIAL INFECTION NOS Active [facility] SEPTICEMIA Diagnosis Active 2015-02-20 Memoria NOS 10:16:00 l Lucien SEPTICEMIA NOS Active [facility] LEFT SIDE Diagnosis Active 2016-11-26 Memoria - STROKE 21:56:00 l LEFT Center SIDE - STROKE Active [facility] CEREBRAL Diagnosis Active 2017-02-09 M emoria INFARCTION 12:12:00 l , CEREBRAL Delvin n UNSPECIFIE INFARCTION D , UNSPECIFIE D Active [facility] ALCOHOL Diagnosis Active 2016-08-07 Me moria 14:30:00 l ALCOHOL Center Active [facility] HEMORRHAGE Diagnosis Active 2017-02-09 Memoria , NOT 12:12:00 l ELSEWHERE Center CLASSIFIED HEMORRHAGE , NOT ELSEWHERE CLASSIFIED Active [facility] ANESTHESIA Diagnosis Active 2017-04-18 Memoria OF SKIN 19:02:00 l Center ANESTHESIA OF SKIN Active [facility] Headache Problem 2017-04-24 2017-04-24 Memoria 9-20 04:47:52 04:47:52 l Headache 05:00: Delvin n 00 04/21/2017 04/24/2017 [facility] Discharge Problem 2016-2016-08-30 2016-08-30 Memoria Diagnosis: 08-27 04:32:05 04:32:05 l Seizure 06:00: Lucien Discharge 00 Diagnosis: Seizure 08/27/2016 08/30/2016 [facility] Discharge Problem 2016-03-10 2016-03-10 Memoria Diagnosis: 03-07 01:50:45 01:50:45 l Acute 05:00: Lucien viral Discharge 00 syndrome Diagnosis: Acute viral syndrome 6 03/10/2016 [facility] Discharge Problem 2016-03-10 2016-03-10 Memoria Diagnosis: 03-07 01:50:45 01:50:45 l Atypical 05:00: Lucien chest pain Discharge 00 Diagnosis: Atypical chest pain 03/07/2016 03/10/2016 [facility] Discharge Problem 2016-03-10 2016-03-10 Memoria Diagnosis: 8- 01:50:45 01:50:45 l Acute 05:00: Center hypokalemi Discharge 00 a Diagnosis: Acute hypokalemi a 03/07/2016 03/10/2016 [facility] Discharge Problem 2016-02-21 2016-02-21 Memoria Diagnosis: 02-17 04:59:11 04:59:11 l Syncope 05:00: Lucien Discharge 00 Diagnosis: Syncope 02/18/2016 02/21/2016 [facility] Discharge Problem 2016-02-21 2016-02-21 Memoria Diagnosis: 02-17 04:59:11 04:59:11 l Tonic 05:00: Center seizure Discharge 00 Diagnosis: Tonic seizure 02/18/2016 02/21/2016 [facility] Discharge Problem 2014-11-25 2014-11-25 Memoria Diagnosis: 4 05:15:16 05:15:16 l Muscle 05:00: Lucien strain Discharge 00 Diagnosis: Muscle strain 11/22/2014 11/25/2014 [facility] Discharge Problem 2014-11-25 2014-11-25 Memoria Diagnosis: 11-22 05:15:16 05:15:16 l Flank pain 05:00: Delvin n Discharge 00 Diagnosis: Flank pain 11/22/2014 11/25/2014 [facility] Discharge Problem 2013-12-02 2013-12-02 Memoria Diagnosis: 11-29 00:31:18 00:31:18 l Acute 05:00: Center bronchitis Discharge 00 Diagnosis: Acute bronchitis 11/29/2013 12/02/2013 [facility] Allergies, Adverse Reactions, Alerts This patient has no known allergies or adverse reactions. Social History Social Habit Start Date Stop Date Quantity Comments Source History of tobacco Cigarette Smoker [place] use Taoist Sex Assigned At [place] Tao[place] Cigarettes smoked 2016-09-20 2016-09-20 [place] current (pack per 00:00:00 00:00:00 Method) - Reported Alcohol intake 2016-09-20 2016-09-20 Current drinker [place] 00:00:00 00:00:00 of alcohol Taoist (finding) Social History 2014-02-07 2014-02-07 [facility] 20:46:39 20:46:39 Smoking Status Start Date Stop Date Source Heavy Tobacco Smoker [facility] Current every day smoker 2016-09-20 00:00:00 [...] , # 70 tab, 0 Refill(s), Pharmacy: [id number] clopidogrel Yes 75 mg = 1 M emoria 75 MG Oral 9-18 tab, PO, l Tablet 14:27: Daily, # Lucien [Plavix] 55 30 tab, 0 Refill(s), [facility]acy: [id number] NIFEdipine Yes 60 mg = 1 Me moria 60 mg oral 9-18 tab, PO, l tablet, 14:26: Daily, # Delvin n extended 00 30 tab, 0 release Refill(s), Pharmacy: [id number] carvedilol Yes 25 mg = 1 Me moria 25 mg oral 9-18 tab, PO, l tablet 14:26: BID, # 60 Delvin n 00 tab, 0 Refill(s), Pharmacy: [id number] atorvastati Yes 20 mg = 1 M emoria n 20 mg 9-18 tab, PO, l oral tablet 14:26: Bedtime, # Lucien 00 30 tab, 0 Refill(s), Pharmacy: [id number] Aspirin 325 2016- Yes 325 mg = 1 Memoria MG Enteric 9-18 tab, PO, l Coated 14:26: Daily, # Lucien Tablet 00 100 tab, 0 Refill(s), Pharmacy: [id number] sacubitril 2016- Yes 1 tab, PO, M emoria 97 MG / 9-18 BID, # 60 l valsartan 14:26: tab, 0 Delvin n 103 MG Oral 00 Refill(s), Tablet Pharmacy: [facility] #[id number] heparin No Notes: Memoria sodium, 04-19 porcine l porcine 05:00: heparin Lucien 2500 UNT/ML 00 Injectable Solution sacubitril No [...] 0.9% 04-19 (Same as: l 02:00: BD Lucien 00 Posiflush) atorvastati No Notes: Mike una n 04-19 (Same as: l 02:00: Lipitor) Levetiracet No Notes: Mike una am 750 MG 04-19 (Same l Oral Tablet 02:00: as:Keppra) Lucien [Keppra] 00 carvedilol No Notes: Memor ia 04-19 Give with l 02:00: food. Center 00 (Same As: Coreg) Frantz's Yes 1 tab, PO, M emoria wort oral 04-19 [id number], 0 l capsule 01:57: Refill(s) Adrienne nn 00 Ibuprofen Yes 800 mg, Memor ia 04-19 PO, BID, 0 l 01:55: Refill(s) Lucien 00 gabapentin Yes 300 mg = 1 M emoria 300 MG Oral 04-19 cap, PO, l Capsule 01:55: TID, # 90 Adrienne nn 00 cap, 1 Refill(s) Hydralazine No Notes: Mike una 04-18 (Same as: l 22:33: Apresoline ) Push over 5 minutes Zofran No Notes: Memoria 04-18 (Same as: l 22:33: Zofran) MEDICATION WASTE Product Size: 4 mg Product Wasted: ___ mg Tylenol No Notes: Do Memor ia 04-18 not exceed l 22:33: 4 gm/day. Center 00 (Same as: Tylenol) Tums No Notes: [...] Not Crush) l Coated 22:33: Do not Lucien Tablet 00 crush or chew. Famotidine No [...] - (Same l Oral Tablet 03:00: as:Keppra) Lucien [Keppra] 00 Omnipaque 2015-08 No Notes: Memori a 350 (same l 15:00: as:Omnipaq ue 350). WASTE: F/P - Black; E - Municipal Trash Bin Levetiracet 2015-08 Yes 750 mg = 1 Memoria am 750 MG 2-28 tab, PO, l Oral Tablet 20:39: BID, # 60 H ermann [Keppra] 00 tab, 0 Refill(s) Aspirin 325 2015-08 Yes 325 mg = 1 Memoria MG Oral 2-28 tab, PO, l Tablet 20:37: Daily, # Lucien 00 50 tab, 0 Refill(s) Aspirin 2015-08 No Notes: Memoria 2-28 Take with l 15:00: food. Ambien 2015-08 No Notes: Memoria 2-28 (Same As: l 03:30: Ambien) Chlordiazep 2015-08 No 25 mg, 1 Me moria oxide 2-27 cap, l Hydrochlori 23:00: Route: PO, Lucien de 25 MG 00 Drug form: Oral CAP, QID, Capsule Dosing Weight 97.727, kg, Start date: 07/28/16 17:00:00 DATA ENTRY OPERATOR, Duration: 30 day, Stop date: 08/27/16 13:00:00 DATA ENTRY OPERATOR Keppra 2016-1 No 1,000 mg, Memori a 2-27 100 mL, l 20:54: Route: Center 00 IVPB, Drug form: INJ, Q12H, Dosing Weight 97.727, kg, Priority: NOW, Start date: 07/28/16 14:54:00 DATA ENTRY OPERATOR, Duration: 30 day, Stop date: 08/27/16 9:00:00 DATA ENTRY OPERATOR Levetiracet 2015-08 No 1,000 mg, M emoria am 1000 MG 2-27 Route: PO, l Oral Tablet 20:53: Drug form: Center [Keppra] 00 TAB, Q12H, Dosing Weight 97.727, kg, Priority: NOW, Start date: 07/28/16 14:53:00 DATA ENTRY OPERATOR, Duration: 30 day, Stop date: 08/27/16 9:00:00 DATA ENTRY OPERATOR Benzocaine 2015-08 No Notes: Memor ia 15 MG / 2- Same as: l Menthol 3.6 16:06: Cepacol Her west MG Lozenge 00 [Cepacol Sore Throat Pain Relief 15/3.6] tramadol 2015-08 No Notes: Not Mem oria hydrochlori 2-27 to exceed l de 50 MG 15:45: 400mg/day. Her west Oral Tablet 00 (Same As: Ultram) sacubitril 2015-08 No 1 tab, Memor ia 49 MG / - Route: PO, l valsartan 15:00: Drug Form: Keshawn rmann 51 MG Oral 00 TAB, Tablet Dosing [Entresto] Weight 97.727, kg, BID, Start date: 07/28/16 9:00:00 DATA ENTRY OPERATOR, Duration: 30 day, Stop date: 08/26/16 17:00:00 DATA ENTRY OPERATOR Ativan 2015-08 No Notes: Memoria 2-27 (Same as: l 10:38: Ativan) Lucien 00 Saline 2015-08 No Notes: Memoria Flush 0.9% 2-27 Same as: l 03:00: BD Center 00 Posiflush Sterile Lipitor 2015-08 No Notes: Memoria 2-27 (Same As: l 03:00: Lipitor) Lucien 00 sacubitril- 2015-08 No Notes: Mike una valsartan 2-27 (Same as: l 03:00: Entresto) Center 00 Avoid in patients with history of angioedema due to BECKY inhibitor or ARB therapy. Do not use concomitan tly or within 36 hours of BECKY inhibitors Clonidine 2015-08 No Notes: Memori a Hydrochlori -27 (Same As: l de 0.2 MG 02:28: Catapres) Her west Oral Tablet 00 Tylenol 2015-08 No Notes: Do Memor ia 2-27 not exceed l 02:25: 4 gm/day. Lucien 00 (Same as: Tylenol) Saline 2015-08 No Notes: Memoria Flush 0.9% 2-27 Same as: l 01:29: BD Lucien Posiflush Sterile 24 HR 2015-08 No Notes: Memoria Nifedipine 2-27 (Same as: l 60 MG 00:15: Adalat CC, Delvin n Extended 00 Procardia Release XL) Give Tablet on empty stomach. Take 1 hour before or 2 hours after meal; "Avoid grapefruit and grapefruit juice". Do not crush carvedilol 2015-08 No Notes: Memor ia 2-27 Give with l 00:14: food. Center 00 (Same As: Coreg) Keppra 2015-08 No Notes: Memoria 2-26 Same as l 23:00: Keppra Mix with 100 mL NS, LR or D5W MEDICATION WASTE Product Size: 500 mg Product Wasted: ___ mg Ativan 2015-08 No Notes: Memoria 2-26 (Same as: l 22:22: Ativan) Center 00 pneumococca 2015-08 No Notes: Mike una [...] tab, PO, M emoria 49 MG / 09-27 BID l valsartan 20:48: Center 51 MG Oral 00 Tablet [Entresto] Aspirin 2015-08 No Notes: Memoria 09-27 Take with l 19:12: food. Center 00 Acetaminoph 2015-08 No Notes: Mike una en 325 MG / 09-27 (Same as: l Hydrocodone 19:12: [place] Adrienne nn Bitartrate 00 325/5) Do 5 MG Oral not exceed Tablet 4gm/day of [[place] acetaminop 5/325] hen. Saline 2015-08 No Notes: Memoria Flush 0.9% 09-27 Same as: l 17:14: BD Lucien 00 Posiflush Sterile Potassium Yes 20 mEq = Mike una Chloride 8-06 15 mL, PO, l 1.33 MEQ/ML 22:12: BID, 1.33 H ermann Oral 00 mEq/ml, # Solution 150 mL, 0 Refill(s) potassium Yes Notes: Memori a chloride 03-07 Infuse at l 21:00: a rate of Lucien 00 10 mEq/hr. (Same as: KCL) sodium No 1,000 mL, Memori a chloride 03-07 Rate: l 0.9% 1000 20:27: 1,000 Center ml INJ 00 ml/hr, 1,000 mL Infuse [...] 8-06 tab, PO, l tablet 20:13: BID Center 00 carvedilol Yes 25 mg = 1 Me moria 25 mg oral 8-06 tab, PO, l tablet 20:12: BID Center 00 Potassium No 40 mEq, 15 Me [...] 03-07 not exceed l 18:43: 4 gm/day. Center 00 (Same as: Tylenol) Sodium No 1,000 [...] Trash Bin Hydralazine No Notes: Mike una 02-17 (Same as: l 20:08: Apresoline ) Push over 5 minutes Acetaminoph No Notes: Do M emoria en 02-17 not exceed l 17:26: 4 gm/day. Center 00 (Same as: Tylenol) Labetalol No 20 mg, 4 Mike una 7-19 mL, Route: l 17:26: IVP, Drug form: INJ, ONCE, Dosing Weight 81.818, kg, Priority: STAT, Start date: 02/18/16 12:26:00 CDT, Stop date: 02/18/16 12:26:00 CDT Saline 2015- No Notes: Memoria Flush 0.9% 02-17 Same as: l 16:44: BD Lucien 00 Posiflush Sterile Naproxen Yes 550 mg = [...] PO, l hydrochlori 17:51: TID, PRN He rmann de 10 MG 00 for Oral Tablet spasm/back [Flexeril] pain, X 5 day, # 15 tab, 0 Refill(s) carvedilol 0 Yes PO, 0 Memori a 4-23 Refill(s) l 17:20: Lisinopril 2014-0 Yes PO, Daily, M emoria 4-23 0 l 17:20: Refill(s) Metformin 0 Yes PO, 0 Memoria -23 Refill(s) l 17:20: Simvastatin 2014-0 Yes PO, Memori a 4-23 Bedtime, 0 l 17:20: Refill(s) Hydrochloro 2014-0 Yes PO, Daily, Memoria thiazide 23 0 l 17:19: Refill(s) Morphine No 4 mg, Memoria 423 Route: l 16:18: IVP, ONCE, Dosing Weight 93.835, kg, Priority: STAT, Start date: 11/22/14 11:18:00, Stop date: 11/22/14 11:18:00 Ketorolac 0 No 30 mg, Memori a 4-23 Route: l 16:18: IVP, ONCE, Dosing Weight 93.835, kg, Priority: STAT, Start date: 11/22/14 11:18:00, Stop date: 11/22/14 11:18:00 Ondansetron No 4 mg, Memor ia 11-22 Route: l 16:18: IVP, ONCE, Dosing Weight 93.835, kg, Priority: STAT, Start date: 11/22/14 11:18:00, Stop date: 11/22/14 11:18:00 Saline No Notes: Memoria Flush 0.9% 11-22 (Same as: l 16:18: BD Center 00 Posiflush) Sodium No 1,000 mL, Memori a Chloride 11-22 Infuse l 0.154 16:18: Over: 1 Center MEQ/ML 00 hr, Route: Injectable IV, ONCE, [...] tab, PO, l tablet 00:21: Daily, # Lucien 33 60 tab, 0 Refill(s) carvedilol Yes [...] l Oral Tablet 00:20: Q12H, # 14 Center [Cipro] 00 tab, 0 Refill(s) Albuterol Yes 1 puff, Memor ia 0.09 1-17 INHALATION l MG/ACTUAT 00:20: , QID, Delvin gonzales Inhalant 00 wheezing, Solution # 1 ea, [...] n 1-15 Same as l 03:00: Cerefolin Center 00 NAC Non-formul sun item Levaquin No Notes: Memoria 1-15 (Same l 01:00: as:Levaqui Lucien 00 n) Albuterol No Notes: Memori a 0.833 MG/ML 1-15 (Same as: l / 01:00: Duoneb) Lucien Ipratropium 00 [place] 0.167 MG/ML Inhalant Solution Vasotec No Notes: [...] una 1-15 (Same as: l 00:34: Apresoline Center 00 ) Push over 5 minutes Ativan No Notes: Memoria 1-14 (Same as: l 22:16: Ativan) Center 00 Morphine No Notes: Memoria 1-14 (Same l 22:15: as:MORPhin Lucien 00 e Sulfate) Ativan No Notes: Memoria 1-14 (Same as: l 20:15: Ativan) Lucien 00 Aspirin 81 No Notes: Do Me moria MG Enteric 1-14 not crush l Coated 15:00: or chew. Center Tablet 00 (Same As: Ecotrin) Simvastatin No Notes: Mike una 1-14 (Same as: l 03:00: Zocor) Center 00 Coreg No Notes: Memoria 1-14 Give with l 03:00: food. Center 00 (Same As: Coreg) Acetaminoph No Notes: Max Memoria en 08-15 acetaminop l 01:53: hen = 4000 Lucien 00 mg/day (4 gm/day). (Same as: Tylenol) tramadol No Notes: Not Mem oria hydrochlori 08-15 to exceed l de 50 MG 01:53: 400mg/day. Her west Oral Tablet 00 (Same As: Ultram) Insulin, No Notes: Memoria Aspart, 08-15 Roll in l Human 01:28: palms of Lucien hands gently; Do not shake vigorously . (Same as: NovoLOG) "single patient use only" Stable for 28 days at room temperatur e. Expires in days from ____Date Dextrose No 12.5 gm, Memor ia 50% Syringe 08-15 25 mL, l 01:28: Route: Center 00 IVP, Drug Form: INJ, Dosing Weight 96.96, kg, PRN, PRN Blood Glucose Results, Start date: 08/14/14 19:28:00, Duration: 30 day, Stop date: 09/13/14 19:27:00 Glucagon No 1 mg, Memoria 08-15 Route: IM, l 01:28: Drug form: Center 00 PDR/INJ, PRN, Dosing Weight 96.96, kg, PRN Blood Glucose Results, Start date: 08/14/14 19:28:00, Duration: 30 day, Stop date: 09/13/14 19:27:00 Magnesium No Notes: Memori a Oxide 08-14 (Same as: l 17:30: Mag-Ox Lucien 00 400) Magnesium oxide 945up=119u g elemental magnesium Dose=____m g magnesium oxide (___mg elemental magnesium) Lisinopril No Notes: Memor ia 08-14 (Same as: l 17:30: Prinivil, Center 00 Zestril) carvedilol No Notes: Memor ia 08-14 Give with l 17:30: food. Center (Same As: Coreg) Hydralazine No Notes: Mike una 1-13 (Same as: l 17:04: Apresoline ) Push over 5 minutes Tamiflu No Notes: Memoria 1-13 Take with l 17:00: food. Same Lucien 00 as: Tamiflu) Enoxaparin No Notes: Memor ia 1-13 (Same as: l 17:00: Lovenox) Albuterol No Notes: Memori a 0.833 MG/ML - (Same as: l / 16:53: Duoneb) Center Ipratropium 00 [place] 0.167 MG/ML Inhalant Solution Ondansetron No Notes: Mike una 1-13 (Same as: l 16:53: Zofran) Acetaminoph No Notes: Do M emoria en 08-14 not exceed l 16:53: 4 gm/day. Center 00 (Same as: Tylenol) Guaifenesin No Notes: Mike una 1-13 (Same as: l 16:53: Robitussin ) Lasix No Notes: Memoria 1-13 (Same as: l 14:27: Lasix) Zithromax No Notes: Memori a 1-13 Same as: l 14:27: Zithromax Rocephin No Notes: Memoria 1-13 (Same As: l 14:27: Rocephin). Use with 100ml NS mini-bag PLUS and infuse over 30 min Labetalol No Notes: Memori a 1-13 (Same as: l 13:45: Normodyne, Lucien 00 Trandate) Push over 2 minutes Give bolus over 2-3 minutes. 24 HR No Notes: Memoria Nitroglycer 1-13 Apply only l in 0.4 13:45: once for Lucien MG/HR 00 up to 12 Transdermal hours in a Patch 24 hour period (12 hours on and 12 hours off.) (Same as:Nitro-D ur,Deponit ,Transderm Nitro) For topical use only. "Remove old patch before applicatio n of new patch" Albuterol 1 No Notes: SEE Memoria MG/ML 08-14 RT l Inhalant 13:45: DOCUMENTAT Her west Solution 00 ION Saline No Notes: Memoria Flush 0.9% 08-14 (Same as: l 13:28: BD Center 00 Posiflush) Sodium No 1,000 mL, Memori a Chloride 08-14 1000 l 0.154 13:28: ml/hr, Lucien MEQ/ML 00 Infuse Injectable Over: 1 Solution hr, Route: IV, 1,000, Drug form: INJ, ONCE, Priority: STAT, Dosing Weight 113.636 kg, Start date: 08/14/14 7:28:00, Duration: 1 doses or times, Stop date: 08/14/14 7:28:00 Ibuprofen No Notes: Memori a 08-14 (Same as: l 13:28: Motrin) Lucien "Do Not Crush" Give with food. Acetaminoph No Notes: Do M emoria en 08-14 not exceed l 13:28: 4 gm/day. Center 00 (Same as: Tylenol) Acetaminoph 2013-08 Yes [...] tab, PO, l tablet 17:19: Daily, # Center 00 14 tab, 0 Refill(s) tramadol 2013-08 Yes 50 mg = 1 Mike una hydrochlori 0-12 tab, PO, l de 50 MG 17:19: Q6H, # 30 Herm lexy Oral Tablet 00 tab, 0 Refill(s) Sulfamethox 2013-08 Yes 1 tab, PO, Memoria azole 800 0-12 [id number], # l MG / 17:19: 14 tab, 0 Lucien Trimethopri 00 Refill(s) m 160 MG Oral Tablet Docusate 2013-08 Yes 1 tab, PO, Mem oria Sodium 50 0-12 BID, # 30 l MG / 17:19: tab, 0 Center sennosides, 00 Refill(s) SHELTER 8.6 MG Oral Tablet carvedilol 2013-08 Yes [...] ia 0-12 Give with l 02:00: food. Center 00 (Same As: Coreg) Docusate 2013-08 No Notes: Memoria Sodium 50 0-11 (Same as l MG / 14:00: Senokot-S) Center sennosides, 00 Equiv. to SHELTER 8.6 MG Lorie-Colac Oral Tablet e. Fluzone 2013-08 No Notes: Memoria Quadrivalen 0-11 (Same as: l t 14:00: Fluzone Her west 00 Quadrivale nt) Lisinopril 2013-08 No Notes: Memor ia 0-11 (Same as: l 14:00: Prinivil, Center 00 Zestril) Hydralazine 2013-08 No Notes: Mike [...] ia 0-11 Give with l 02:00: food. Lucien 00 (Same As: Coreg) Amoxicillin 2013-08 No Notes: Mike una 875 MG / 0-11 With food. l Clavulanate 02:00: (Same as: H ermann 125 MG Oral 00 Augmentin Tablet 875) [Augmentin 875-mg] Bactrim DS 2013-08 No Notes: One M emoria 0-11 DS tablet l 00:00: = Lucien 00 trimethopr im 160mg + sulfametho xazole 800 mg Dose based on trimethopr im component On empty stomach with a glass of water. 1 hr before meals (Same As: Bactrim DS, Septra DS) heparin, 2013-08 No Notes: Memoria porcine 0-10 porcine l 21:00: heparin Center 00 Hydrochloro 2013-08 No Notes: Mike una thiazide 0-10 (Same as: l 18:47: Hydrodiuri Lucien 00 l) With food. Lisinopril 2013-08 No Notes: Memor ia 0-10 (Same as: l 18:46: Prinivil, Lucien 00 Zestril) Coreg 2013-08 No Notes: Memoria 0-10 Give with l 18:46: food. Center 00 (Same As: Coreg) Coreg 2013-08 No Notes: Memoria 0-10 Give with l 16:24: food. Center 00 (Same As: Coreg) Lisinopril 2013-08 No [...] ia 0-10 (Same as: l 11:18: Lopressor) Center 00 Push over 2 minutes aspirin 2013-08 No Notes: Memoria 0-10 Take with l 11:17: food. Lucien 00 Labetalol 2013-08 No 20 mg, Memori [...] Memoria 0-09 (Same as: l 22:35: Sublimaze) Center 00 Preservat raoul free. Hydromorpho 2013-08 No Notes: Mike una ne 0-09 Same as: l 22:35: Dilaudid Promethazin 2013-08 No Notes: Do M emoria e 0-09 not give l 22:35: IV push. Lucien 00 (Same as: Phenergan) Ondansetron 2013-08 No Notes: Mike una 0-09 (Same as: l 22:35: Zofran) Center 00 Lisinopril 2013-08 No Notes: Memor ia 0-09 (Same as: l 05:00: Prinivil, Center 00 Zestril) vancomycin 2013-08 No 2001 mg: [...] 0-08 not crush l 14:00: or chew. Lucien 00 (Same As: Ecotrin) carvedilol 2013-08 No Notes: Memor ia 0-08 Give with l 14:00: food. Lucien (Same As: Coreg) Influenza 2013-08 No Notes: Memori a Virus 0-08 (Same as: l Vaccine, 14:00: Fluzone Delvin n Inactivated 00 Quadrivale A-[place]- nt) (H3N2)-like virus (A-[place] [facility] X-175C) strain / Influenza Virus Vaccine, Inactivated A-[place]- , IVR-148 (H1N1) strain / Influenza Virus Vaccine, Inactivated , B---lik Docusate 2013-08 No Notes: Memoria 0-08 (Same as: l 14:00: Colace) Center 00 Ceftriaxone 2013-08 No Notes: Mike una 0-08 (Same As: l 12:00: Rocephin). Lucien 00 Use with 100ml NS mini-bag PLUS and infuse over 30 min Zofran 2013-08 No Notes: Memoria 0-08 (Same as: l 11:40: Zofran) Lucien Vancomycin 2013-08 No 2000 mg: Me moria 0-08 infuse l 11:39: over 2.5 Ulcien 00 hours Potassium 2013-08 No Notes: Memori a Chloride 0-08 (Same as: l 11:36: KCL) Lucien 00 Infuse no faster than 10 mEq/hr if given peripheral ly. Insulin, 2013-08 No Notes: Memoria Aspart, 0-08 Roll in l Human 11:36: palms of Center 00 hands gently; Do not shake vigorously . (Same as: NovoLOG) "single patient use only" Stable for 28 days at room temperatur e. Expires in days from ____Date Dextrose 2013-08 No 25 gm, 50 Mike una 50% Syringe 0-08 mL, Route: l 11:36: IVP, Drug Center 00 Form: INJ, Dosing Weight 97.727, kg, [...] 0.9% 0-08 (Same as: l 11:35: BD Lucien 00 Posiflush) Ondansetron 2013-08 No Notes: Mike una 0-08 (Same as: l 11:35: Zofran) Lucien 00 Acetaminoph 2013-08 No Notes: Do M emoria en 0-08 not exceed l 11:35: 4 gm/day. Center 00 (Same as: Tylenol) Acetaminoph 2013-08 No Notes: Mike una en 325 MG / 0-08 (Same as: l Hydrocodone 11:35: [place] Adrienne nn Bitartrate 00 325/5) Do 5 MG Oral not exceed Tablet 4gm/day of acetaminop hen. Morphine 2013-08 No Notes: Memoria 0-08 (Same l 11:35: as:MORPhin Center 00 e Sulfate) Acetaminoph 2013-08 No Notes: Do M emoria en 325 MG / 0-08 not exceed l Hydrocodone 11:35: 4gm/day of Lucien Bitartrate 00 acetaminop 10 MG Oral hen. Tablet (Same as: [place] 325/10) Metformin 2013-08 Yes 500 mg = 1 Me moria hydrochlori 0-08 tab, PO, l de 500 MG 10:54: BID, # 30 Her west Oral Tablet 00 tab, 0 Refill(s) Dilaudid 2013-08 No 1 mg, Memoria 0-08 Route: l 08:14: IVP, ONCE, Lucien 00 Dosing Weight 113.636, kg, Priority: STAT, Start date: 05/09/14 3:14:00, Stop date: 05/09/14 3:14:00 Ceftriaxone 2013-08 No Notes: Mike una 0-08 (Same As: l 08:08: Rocephin). Center 00 Use with 100ml NS mini-bag PLUS and infuse over 30 min Doxycycline 2013-08 No Notes: NO M emoria 0-08 MILK/ANTAC l 08:06: IDS/IRON Center 00 Take 1 hour before or 2 hours after dairy products NS 1,000 mL 2013-08 No Special Mem oria 0-08 Instructio l 05:12: ns: Bolus Lucien 00 Dose Ondansetron 2013-08 No Notes: Mike una 0-08 (Same as: l 04:58: Zofran) Lucien 00 Dilaudid 2013-08 No Notes: Memoria 0-08 Same as: l 04:58: Dilaudid Lucien 00 Vancomycin 2013-08 No 2001 mg: Me moria 0-08 infuse l 04:57: over 2.5 Lucien 00 hours Saline 2013-08 No Notes: Memoria Flush 0.9% 0-08 (Same as: l 04:57: BD Lucien 00 Posiflush) Lisinopril No Notes: Memor ia 7-12 (Same as: l 14:00: Prinivil, Lucien 00 Zestril) Coreg No Notes: Memoria 7-12 Give with l 02:00: food. Center 00 (Same As: Coreg) lisinopril Yes 5 mg = 1 Mem oria 5 mg oral 7-11 tab, PO, l tablet 18:18: Daily, # Center 00 30 tab, 0 Refill(s) carvedilol Yes 6.25 mg = Me moria 12.5 mg 7-11 0.5 tab, l oral tablet 18:18: PO, BID, # Lucien 00 15 tab, 0 Refill(s) Hydrochloro Yes 25 mg = 1 M emoria thiazide 25 7-11 tab, PO, l MG Oral 18:18: Daily, for Herm lexy Tablet 00 edema, # 30 tab, 0 Refill(s) Simvastatin No Notes: Mike una 02-09 (Same as: l 02:00: Zocor) Center 00 Coreg No Notes: Memoria 7 Give with l 16:00: food. (Same As: Coreg) Hydrochloro No 1 tab, PO, Memoria thiazide 710 Bedtime, 0 l 12.5 MG / 05:35: Refill(s) Her west Lisinopril 00 20 MG Oral Tablet carvedilol No 12.5 mg = Me moria 12.5 MG 710 1 tab, PO, l Oral Tablet 05:35: BID, # 60 H ermann [Coreg] 00 tab, 0 Refill(s) Metformin No 500 mg, Memor ia 7-10 PO, l 05:35: Dinner, 0 Refill(s) Simvastatin Yes 40 mg = 1 M emoria 7-10 tab, PO, l 05:35: Bedtime, # Center 00 30 tab, 0 Refill(s) NS 1,000 [...] en 02-07 acetaminop l 17:54: hen = 4000mg/day (4 gm/day). (Same as: Tylenol) Ondansetron No Notes: Mike una 02-07 (Same as: l 17:54: Zofran) Docusate No Notes: Memoria 02-07 (Same as: l 17:54: Colace) Center 00 (Do Not Crush) Omnipaque 2014-0 No 50 mL, Memori a 240 02-07 Route: PO, l 14:41: Dosing Lucien 00 Weight 96.364, kg, ONCE, Start date: 02/07/14 9:41:00, Stop date: 02/07/14 9:41:00 Sodium 2014-0 No 1,000 mL, Memori a Chloride 02-07 999 ml/hr, l 0.154 14:27: Infuse Lucien MEQ/ML 00 Over: 1 Injectable hr, Route: Solution IV, ONCE, Priority: STAT, Dosing Weight 96.364 kg, Start date: 02/07/14 9:27:00, Duration: 1 doses or times, Stop date: 02/07/14 9:27:00 Sodium 2014-0 No 500 mL, Memoria Chloride 02-07 500 ml/hr, l 0.154 12:37: Infuse Center MEQ/ML 00 Over: 1 Injectable hr, Route: [...] l Oral Tablet 09:46: Daily, # 7 Lucien [Zithromax] 00 tab, 0 Refill(s) benzonatate 2013-0 Yes 100 mg = 1 Memoria 100 MG Oral 4-30 cap, PO, l Capsule 09:46: TID, # 21 Adrienne nn [Tessalon 00 cap, 0 Perles] Refill(s) carvedilol 2012-08 Yes Evan E 12.5 mg = Memoria 12.5 mg 2-20 Pierre II 1 tab, PO, l oral tablet 21:21: Q12H, # 60 Lucien 00 tab, 0 Refill(s) Tessalon 2012-08 Yes Colton E 200 mg = 1 Memoria 200 mg oral 2-20 Pierre II cap, PO, l capsule 21:21: TID, # 30 Adrienne nn 00 cap, 0 Refill(s) albuterol 2012-08 Yes Evan E 1 puff, Me moria 90 mcg/inh 2-20 Pierre II INHALATION l inhalation 21:21: , QID, Adrienne nn aerosol 00 wheezing, # 1 ea, 0 Refill(s) aspirin 81 2012-08 Yes Evan E 81 mg = 1 Memoria mg tablet, 2-20 Pierre II tab, PO, l enteric 21:21: Daily, # Delvin n coated 00 30 tab, 0 Refill(s) cloNIDine 2012-08 Yes Evan E 0.1 mg = 1 Memoria 0.1 mg oral 2-20 Pierre II tab, PO, l tablet 21:21: TID, Lucien 00 Elevated BP | sbp >/= 160, # 60 tab, 0 Refill(s) simvastatin 2012-08 Yes Colton E 40 mg = 2 Memoria 20 mg oral 2-20 Pierre II tab, PO, l tablet 21:21: Bedtime, # Adrienne nn 00 30 tab, 0 Refill(s) lisinopril 2012-08 Yes Colton E 20 mg = 1 Memoria 20 mg oral 2-20 Pierre II tab, PO, l tablet 21:21: Q12H, HOLD Adrienne nn 00 IF SBP HOLD IF SBP </= 110 furosemide 2012-08 Yes Colton E 40 mg = 1 Memoria 40 [...] Memori a 2-20 Guzmán tab, l 15:00: Whitmore II Route: PO, He rm Drug form: TAB, Daily, Dosing Weight 93.3, kg, Start date: 07/21/13 9:00:00, Duration: 30 day, Stop date: 08/19/13 9:00:00(Sa me as: Lasix) May cause GI upset. Give with food or milk. hydrALAZINE 2012-08 No Colton E 10 mg, 0.5 Memoria 2-19 Pierre II mL, Route: l 20:02: IVP, Drug form: INJ, Q6H, Dosing Weight 97.727, kg, PRN Hypertensi on, Start date: 07/20/13 14:02:00, Duration: 30 day, Stop date: 08/19/13 14:01:00, SBP>/=150 OR DBP>/=90(S qian as: Apresoline ) Push over 5 minutes aspirin 325 2012-08 No Colton E 325 mg, 1 Memoria mg tablet, 2-19 Pierre II tab, l enteric 15:00: Route: PO, Herm lexy coated 00 Drug form: ECTAB, Daily, Dosing Weight 93.3, kg, Start date: 07/20/13 9:00:00, Duration: 30 day, Stop date: 08/18/13 9:00:00(Do Not Crush) Do not crush or chew. Zocor 2012-08 No Evan E 40 mg, 2 Memor ia 2-19 Pierre II tab, l 03:00: Route: PO, Lucien 00 Drug form: TAB, Bedtime, Dosing Weight 93.3, kg, Start date: 07/19/13 21:00:00, Duration: 30 day, Stop date: 08/17/13 21:00:00(S qian as: Zocor) lisinopril 2012-08 No Colton E 20 mg, 1 Memoria 2-19 Pierre II tab, l 02:50: Route: PO, Center 00 Drug form: TAB, Q12H, Dosing Weight 97.727, kg, Priority: STAT, Start date: 07/19/13 20:50:00, Duration: 30 day, Stop date: 08/18/13 9:00:00([facility] as: Prinivil, Zestril) magnesium 2012-08 No Lisa M 2 gm, 50 Memoria sulfate 2-18 Pamela mL, Route: l 16:51: IVPB, Drug form: INJ, PRN, Dosing Weight 93.3, kg, PRN Abnormal Lab Result, Start date: 07/19/13 10:51:00, Duration: 30 day, Stop date: 08/18/13 10:50:00, FOR ICU USE ONLYFOR ICU USE ONLY potassium 2012-08 No Lisa M 45 mmol, Memoria phosphate + 2-18 Pamela 15 mL, l Sodium 16:51: Route: Lucien Chloride 00 IVPB, Drug 0.9% IV 250 [...] Pamela mL, Route: l 16:51: IVPB, Drug form: INJ, PRN, Dosing Weight 93.3, kg, PRN Abnormal Lab Result, Start date: 07/19/13 10:51:00, Duration: 30 day, Stop date: 08/18/13 10:50:00, FOR ICU USE ONLYFOR ICU USE ONLY sodium 2012-08 No Lisa M 45 mmol, Mem oria glycerophos 2-18 Pamela 45 mL, l phate + 16:51: Route: Lucien Sodium 00 IVPB, Drug Chloride form: INJ, 0.9% IV 250 PRN, mL Dosing Weight 93.3, kg, PRN Abnormal Lab Result, Start date: 07/19/13 10:51:00, Duration: 30 day, Stop date: 08/18/13 10:50:00, FOR ICU USE ONLYFOR ICU USE ONLY potassium 2012-08 No Lisa M 20 mEq, 1 Memoria chloride 2-18 Pamela tab, l 16:51: Route: PO, Center 00 Drug form: ERTAB, PRN, Dosing Weight 93.3, kg, PRN Abnormal Lab Result, Start date: 07/19/13 10:51:00, Duration: 30 day, Stop date: 08/18/13 10:50:00, FOR ICU USE ONLYFOR ICU USE ONLY(Same as: K-Dur 20) "Do Not Crush" With food and full glass of water Lasix 2012-08 No Steven 40 mg, 4 Memori a 2-18 Guzmán mL, Route: l 15:00: Whitmore II IVP, Drug Her west 00 form: INJ, Daily, Dosing Weight 97.727, kg, Priority: Routine, Start date: 07/19/13 9:00:00, Duration: 30 day, Stop date: 08/17/13 9:00:00(Sa me as: Lasix) folic acid 2012-08 No Evan E 1 mg, 1 M emoria 2-18 Pierre II tab, l 15:00: Route: PO, Center 00 Drug form: TAB, Daily, Dosing Weight 97.727, kg, Start date: 07/19/13 9:00:00, Duration: 30 day, Stop date: 08/17/13 9:00:00(Sa me as: Folvite) multivitami 2012-08 No Colton E 1 tab, M emoria n 2-18 Pierre II Route: PO, l 15:00: Drug Form: Center 00 TAB, Dosing Weight 97.727, kg, Daily, Start date: 07/19/13 9:00:00, Duration: 30 day, Stop date: 08/17/13 9:00:00 thiamine 2012-08 No Evan E 100 mg, 1 M emoria 2-18 [...] 9:00:00(Sa me as: Fluzone) multivitami 2012-08 No Colton E 1 tab, M emoria n with 2-18 Ignacio II Route: PO, l minerals 15:00: Drug Form: Her west 00 TAB, Daily, Start date: 07/19/13 9:00:00, Duration: 30 day, Stop date: 08/17/13 9:00:00Giv e with food. (Same As: Stress 600 with Zinc) vancomycin 2012-08 No Akinyinka 1.25 gm, Memoria 2-18 Ajelabi 250 mL, l 12:00: Route: Center 00 IVPB, Drug form: INJ, [id number], Start date: 07/19/13 6:00:00, Stop date: 08/18/13 2:00:00Sam e as: Vancocin-N S (premixed) [place] 2012-08 No Colton E 1 tab, Memoria 10/325 oral - Ignacio II Route: PO, l tablet 06:00: Drug Form: Adrienne nn 00 TAB, Dosing Weight 97.727, kg, Q6H, Start date: 07/19/13 0:00:00, Duration: 30 day, Stop date: 08/17/13 18:00:00Do not exceed 4gm/day of acetaminop hen. (Same as: [place] 325/10) albuterol-i 2012-08 No Evan E 3 mL, Me moria pratropium 2-18 Ignacio II Route: l 2.5-0.5 mg 05:00: NEB, Drug He rmann inhalation 00 Form: solution SOLN, Dosing Weight 97.727, kg, RQ4H, Start date: 07/18/13 23:00:00, Duration: 30 day, Stop date: 08/17/13 19:00:00(S qian as: Duoneb) Tessalon 2012-08 No Evan E 200 mg, 2 M emoria Perles 2-18 Ignacio II cap, l 04:00: Route: PO, Lucien 00 Drug form: CAP, Q8H-06, Dosing Weight 97.727, kg, Start date: 07/18/13 22:00:00, Duration: 30 day, Stop date: 08/17/13 14:00:00(S qian As: Freida Gamez) "Do Not Crush" lisinopril 2012-08 No Evan E 10 mg, 1 Memoria 2-18 Pierre II tab, l 03:00: Route: PO, Lucien 00 Drug form: TAB, Q12H, Dosing Weight 97.727, kg, Start date: 07/18/13 21:00:00, Duration: 30 day, Stop date: 08/17/13 9:00:00(Sa me as: Prinivil, Zestril) Coreg 2012-08 No Steven 12.5 mg, 1 Mike una 2-18 Guzmán tab, l 03:00: Whitmore II Route: PO, He rm Drug form: TAB, Q12H, Dosing Weight 97.727, kg, Start date: 07/18/13 21:00:00, Stop date: 08/17/13 9:00:00Giv e with food. (Same As: Coreg) Vancomycin 2012-08 No Naifyinka 1 gm, M [facility] 2-18 Ajelabi Route: IV, l Dosing 03:00: Dosing Weight 97.727, kg, Q12H, Start date: 07/18/13 21:00:00, Duration: 30 day, Stop date: 08/17/13 9:00:00 Nicoderm 2012-08 No Evan E 21 mg, 1 Me moria C-Q 2-18 Pierre II patch, l 02:25: Route: Center 00 TOP, Drug form: ERFILM, Daily, Dosing Weight 97.727, kg, Start date: 07/18/13 20:25:00, Duration: 30 day, Stop date: 08/17/13 9:00:00(Sa me as: Habitrol) "Remove old patch before applicatio n of new patch" Ativan 2012-08 No Evan E 1 mg, 0.5 Mem oria 2-18 Pierre II mL, Route: l 02:18: IVP, Drug form: INJ, Q2H, Dosing Weight 97.727, kg, PRN Anxiety, Start date: 07/18/13 20:18:00, Duration: 30 day, Stop date: 08/17/13 20:17:00, SIGNS OF WITHDRAWAL , AGITATION, Anxiety(Sa me as: Ativan) clonidine 2012-08 No Evan E 0.1 mg, 1 Memoria 0.1 mg oral 2-18 Pierre II tab, l tablet 02:17: Route: PO, Adrienne nn 00 Drug form: TAB, TID, Dosing Weight 97.727, kg, PRN Elevated BP, Start date: 07/18/13 20:17:00, Duration: 30 day, Stop date: 08/17/13 20:16:00, sbp >/= 180(Same As: Catapres) vancomycin 2012-08 No Akinyinka 1.5 gm, Memoria 2-18 Ajelabi 250 mL, l 02:00: Route: Center 00 IVPB, Drug form: INJ, ONCE, Start date: 07/18/13 20:00:00, Stop date: 07/18/13 20:00:00Sa me as: Vancocin-N S (premixed) dextrometho 2012-08 No Colton E 10 mL, M emoria rphan-guaif 2-18 [...] E 160 mg, 2 Memoria Softgels 2-18 Ignacio II tab, l 01:28: Route: PO, Lucien 00 Drug form: CHEWTAB, Q4H, Dosing Weight 97.727, kg, PRN Gas, Start date: 07/18/13 19:28:00, Duration: 30 day, Stop date: 08/17/13 19:27:00(S qian as: Mylicon) GI cocktail 2012-08 No Evan E 30 ml, M emoria 09-19 Ignacio II Route: PO, l :28: Drug Form: Center 00 SUSP, Dosing Weight 97.727, kg, Q4H, PRN GI Upset, Routine, Start date: 07/18/13 19:28:00, Duration: 30 day, Stop date: 08/17/13 19:27:00, DYSPEPSIAG .I. Cocktail = antacid with simethicon e 22.5 mL - lidocaine viscous 7.5 mL morphine 2012-08 No Evan E 2 mg, 1 Mem oria Sulfate 09-19 Ignacio II mL, Route: l : IVP, Drug form: INJ, Q6H, Dosing Weight 97.727, kg, PRN as needed for pain, Start date: 07/18/13 19:28:00, Duration: 30 day, Stop date: 08/17/13 19:27:00(S qian as:MORPhin e Sulfate) Tylenol 2012-08 No Colton E 650 mg, Mike una 09-19 Ignacio II Route: PO, l 28: Drug form: Center 00 TAB, Q6H, Dosing Weight 97.727, kg, PRN Pain, Start date: 07/18/13 19:28:00, Duration: 30 day, Stop date: 08/17/13 19:27:00 hydrALAZINE 2012-08 No Colton E 10 mg, 0.5 Memoria 09-19 Ignacio II mL, Route: l : IVP, [...] 19:27:00(S qian as:Chronul ac) Zofran 2012-08 No Evan E 4 mg, 2 Memor ia 2-18 Pierre II mL, Route: l 01:28: IV, Drug form: INJ, Q4H, Dosing Weight 97.727, kg, PRN Nausea, Start date: 07/18/13 19:28:00, Duration: 30 day, Stop date: 08/17/13 19:27:00(S qian as: Zofran) acetaminoph 2012-08 No Colton E 650 mg, 2 Memoria en 2-18 Pierre II tab, l 01:28: Route: PO, Drug form: TAB, Q4H, Dosing Weight 97.727, kg, PRN Pain Score 1-3, For fever > 100.4. Not to exceed 4 grams in 24 hours, Start date: 07/18/13 19:28:00, Duration: 30 day, Stop date: 08/17/13 19:27:00Do not exceed 4 gm/day. (Same as: Tylenol) tuberculin 2012-08 No Colton E 5 unit, M emoria purified 2-18 Pierre II 0.1 mL, l protein 01:22: Route: Lucien 00 INTRADERM, 5 ONCE, tuberculin Dosing units/0.1 Weight mL 97.727, intradermal kg, Start solution date: 07/18/13 19:22:00, Stop date: 07/18/13 19:22:00 levofloxaci 2012-08 No Akinyinka 750 mg, Memoria n 2-18 Ajelabi 150 mL, l 00:00: Route: IV, Lucien 00 Drug form: SOLN, [id number], Dosing Weight 97.727, kg, Start date: 07/18/13 18:00:00, Duration: 30 day, Stop date: 08/16/13 18:00:00(S qian as:Levaqui n) Lasix 2012-08 No Akinyinka 40 mg, 4 Mem oria 2-17 Ajelabi mL, Route: l 23:20: IV, Drug Lucien 00 form: INJ, ONCE, Dosing [...] Faig mL, Route: l 20:40: IVP, Drug Center 00 form: INJ, ONCE, Dosing Weight 97.727, [...] 2-17 Faig Route: l 19:00: IVP, Drug Center 00 Form: INJ, Dosing Weight 97.727, kg, PRN, PRN Line Flush, Start date: 07/18/13 13:00:00, Duration: 1 doses or times, Stop date: Limited # of times(Same as: BD Posiflush) Asprin Ec Asprin Ec No 1 Q1D Asprin Ec [facility] Low Dose 81 Low Dose 81 Low Dose Family mg mg 81 mg Practic tablet,delgado tablet,delgado tablet,del e yed release yed release ayed Take 1 Take 1 release tablet tablet Take 1 every day every day tablet by oral by oral every day route. route. by oral route. atorvastati atorvastati No 1 Q1D atorvastat [facility] n 80 mg n 80 mg in 80 mg Famil y tablet Take tablet Take tablet Practic 1 tablet 1 tablet Take 1 e every day every day tablet by oral by oral every day route for route for by oral 90 days. 90 days. route for 90 days. carvedilol carvedilol No 1 BID carvedilol [facility] 25 mg 25 mg 25 mg Family tablet Take tablet Take tablet Practic 1 tablet 1 tablet Take 1 e twice a day twice a day tablet by oral by oral twice a route for route for day by 90 days. 90 days. oral route for 90 days. clopidogrel clopidogrel No 1 Q1D clopidogre [facility] 75 mg 75 mg l 75 mg Family tablet Take tablet Take tablet Practic 1 tablet 1 tablet Take 1 e every day every day tablet by oral by oral every day route for route for by oral 90 days. 90 days. route for 90 days. Entresto 97 Entresto 97 No Entresto [facility] mg-103 mg mg-103 mg 97 mg-103 Family tablet TAKE tablet TAKE mg tablet Practic ONE TABLET ONE TABLET TAKE ONE e BY MOUTH BY MOUTH TABLET BY TWICE DAILY TWICE DAILY MOUTH TWICE DAILY gabapentin gabapentin No 1capsul Q1D gabapentin [facility] 300 mg 300 mg e(s) 300 mg Family capsule capsule capsule Practi c Take 1 Take 1 Take 1 e capsule capsule capsule every day every day every day by oral by oral by oral route. route. route. levetiracet levetiracet No 1 BID levetirace [facility] am 1,000 mg am 1,000 mg perkins 1,000 Family tablet Take tablet Take mg tablet Practic 1 tablet 1 tablet Take 1 e twice a day twice a day tablet by oral by oral twice a route for route for day by 30 days. 30 days. oral route for 30 days. nifedipine nifedipine No 1 Q1D nifedipine [facility] ER 60 mg ER 60 mg ER 60 mg Fam jose tablet,exte tablet,exte tablet,ext Practic nded nded ended e release release release Take 1 Take 1 Take 1 tablet tablet tablet every day every day every day by oral by oral by oral route for route for route for 90 days. 90 days. 90 days. trazodone trazodone No 1 trazodone [facility] 100 mg 100 mg 100 mg Family [...] Ordered Immunization Filled Immunization Date Status Commen Source Name Name RUBENZEV JOSE 2016-09-18 [facility] 00:00:00 Taoist Vital Signs Vital Name Observation Time Observation Value Comments Source BP Diastolic 2017-10-19 00:00:00 77 mm[Hg] [facility] Height 2017-10-19 00:00:00 66 [in_i] [facility] BMI (Body Mass Index) 2017-10-19 00:00:00 37.8 kg/m2 [facility] BP Systolic 2017-10-19 00:00:00 132 mm[Hg] [facility] Body Weight 2017-10-19 00:00:00 234 [lb_av] [facility] BP Diastolic 2017-10-08 00:00:00 76 mm[Hg] [facility] Height 2017-10-08 00:00:00 66 [in_i] [facility] BMI (Body Mass Index) 2017-10-08 00:00:00 38 kg/m2 [facility] BP Systolic 2017-10-08 00:00:00 116 mm[Hg] [facility] Body Weight 2017-10-08 00:00:00 235.6 [lb_av] [facility] BP Diastolic 2017-08-25 00:00:00 82 mm[Hg] [facility] Height 2017-08-25 00:00:00 66 [in_i] [facility] BMI (Body Mass Index) 2017-08-25 00:00:00 39.3 kg/m2 [facility] BP Systolic 2017-08-25 00:00:00 110 mm[Hg] [facility] Body Weight 2017-08-25 00:00:00 243.6 [lb_av] [facility] Systolic (mm Hg) 2017-04-21 06:49:00 Mike Mcgraw Diastolic (mm Hg) 2017-04-21 06:49:00 [facility] Lucien Heart Rate 2017-04-21 06:49:00 [facility] Respitory Rate 2017-04-21 06:49:00 [facility] Temperature Oral (F) 2017-04-21 06:49:00 98.4 F [facility] Lucien Height 2017-04-21 06:49:00 180.34 cm [facility] Lucien BMI Calculated 2017-04-21 06:49:00 Mem[facility] Lucien Weight 2017-04-21 06:49:00 [facility] Respitory Rate 2017-04-19 16:08:00 Memori al Lucien Systolic (mm Hg) 2017-04-19 15:19:00 Mike rial Center Diastolic (mm Hg) 2017-04-19 15:19:00 Mem orial Lucien Respitory Rate 2017-04-19 15:19:00 Memori al Center Temperature Oral (F) 2017-04-19 15:19:00 98.9 F [facility] Heart Rate 2017-04-19 15:19:00 [facility] Lucien Temperature Oral (F) 2017-04-19 12:04:00 98.3 F [facility] Respitory Rate 2017-04-19 12:04:00 Memori al Center Heart Rate 2017-04-19 12:04:00 [facility] Lucien Systolic (mm Hg) 2017-04-19 12:04:00 Mike rial Lucien Diastolic (mm Hg) 2017-04-19 12:04:00 Mem o[facility] Center Heart Rate 2017-04-19 08:39:00 [facility] Temperature Oral (F) 2017-04-19 08:39:00 98.6 F [facility] Systolic (mm Hg) 2017-04-19 08:39:00 Mike rial Lucien Diastolic (mm Hg) 2017-04-19 08:39:00 Mem orial Center BMI Calculated 2017-04-18 18:56:00 Memori al Lucien Weight 2017-04-18 18:56:00 [facility] Lucien Height 2017-04-18 18:56:00 165.1 cm [facility] Lucien Heart Rate 2016-08-27 21:32:00 [facility] Lucien Systolic (mm Hg) 2016-08-27 21:32:00 Mike rial Center Diastolic (mm Hg) 2016-08-27 21:32:00 Mem orial Center Respitory Rate 2016-08-27 21:32:00 Memori al Lucien Temperature Oral (F) 2016-08-27 21:32:00 98.8 F [facility] Heart Rate 2016-08-27 19:15:00 [facility] Respitory Rate 2016-08-27 19:15:00 Memori al Lucien Temperature Oral (F) 2016-08-27 19:15:00 99.0 F [facility] Systolic (mm Hg) 2016-08-27 19:15:00 Mike rial Lucien Diastolic (mm Hg) 2016-08-27 19:15:00 Mem orial Lucien Weight 2016-08-27 19:15:00 [facility] Systolic (mm Hg) 2016-07-30 18:12:00 [facility] Diastolic (mm Hg) 2016-07-30 18:12:00 [facility] Respitory Rate 2016-07-30 18:12:00 [facility] Heart Rate 2016-07-30 18:12:00 [facility] Temperature Oral (F) 2016-07-30 18:12:00 98.6 [facility] Respitory Rate 2016-07-30 14:57:00 [facility] Systolic (mm Hg) 2016-07-30 14:57:00 [facility] Diastolic (mm Hg) 2016-07-30 14:57:00 [facility] Heart Rate 2016-07-30 14:57:00 [facility] Temperature Oral (F) 2016-07-30 14:57:00 98.9 [facility] Systolic (mm Hg) 2016-07-30 10:00:00 [facility] Diastolic (mm Hg) 2016-07-30 10:00:00 [facility] Respitory Rate 2016-07-30 10:00:00 [facility] Heart Rate 2016-07-30 10:00:00 [facility] Temperature Oral (F) 2016-07-30 10:00:00 97.5 [facility] Weight 2016-07-27 17:13:00 [facility] BMI Calculated 2016-07-27 17:13:00 [facility] Height 2016-07-27 17:13:00 165.1 cm [facility] Systolic (mm Hg) 2016-03-07 22:33:00 [facility] Diastolic (mm Hg) 2016-03-07 22:33:00 [facility] Heart Rate 2016-03-07 22:33:00 [facility] Temperature Oral (F) 2016-03-07 22:33:00 98.8 [facility] Respitory Rate 2016-03-07 22:33:00 [facility] Systolic (mm Hg) 2016-03-07 19:17:00 [facility] Diastolic (mm Hg) 2016-03-07 19:17:00 [facility] Respitory Rate 2016-03-07 19:17:00 [facility] Temperature Oral (F) 2016-03-07 19:17:00 99.1 [facility] Heart Rate 2016-03-07 19:17:00 [facility] BMI Calculated 2016-03-07 17:40:00 [facility] Height 2016-03-07 17:40:00 165.1 cm [facility] Weight 2016-03-07 17:40:00 [facility] Heart Rate 2016-03-07 17:40:00 [facility] Respitory Rate 2016-03-07 17:40:00 [facility] Temperature Oral (F) 2016-03-07 17:40:00 98.5 F [facility] Systolic (mm Hg) 2016-03-07 17:40:00 [facility] Diastolic (mm Hg) 2016-03-07 17:40:00 [facility] Heart Rate 2016-02-18 21:51:00 [facility] Respitory Rate 2016-02-18 21:51:00 [facility] Temperature Oral (F) 2016-02-18 21:51:00 98.1 F [facility] Systolic (mm Hg) 2016-02-18 21:51:00 [facility] Diastolic (mm Hg) 2016-02-18 21:51:00 [facility] Heart Rate 2016-02-18 20:44:00 [facility] Systolic (mm Hg) 2016-02-18 20:44:00 [facility] Diastolic (mm Hg) 2016-02-18 20:44:00 [facility] Respitory Rate 2016-02-18 20:44:00 [facility] Temperature Oral (F) 2016-02-18 20:44:00 98.2 F [facility] Systolic (mm Hg) 2016-02-18 17:22:00 [facility] Diastolic (mm Hg) 2016-02-18 17:22:00 [facility] Heart Rate 2016-02-18 17:22:00 [facility] Respitory Rate 2016-02-18 17:22:00 [facility] Height 2016-02-18 16:37:00 177.8 cm [facility] BMI Calculated 2016-02-18 16:37:00 [facility] Weight 2016-02-18 16:37:00 [facility] Temperature Oral (F) 2016-02-18 16:37:00 98.5 F [facility] Systolic (mm Hg) 2014-11-22 18:01:00 [facility] Diastolic (mm Hg) 2014-11-22 18:01:00 [facility] Heart Rate 2014-11-22 18:01:00 [facility] Respitory Rate 2014-11-22 18:01:00 [facility] Weight 2014-11-22 16:06:00 [facility] BMI Calculated 2014-11-22 16:06:00 [facility] Height 2014-11-22 16:06:00 165.1 cm [facility] Heart Rate 2014-11-22 16:06:00 [facility] Systolic (mm Hg) 2014-11-22 16:06:00 [facility] Diastolic (mm Hg) 2014-11-22 16:06:00 [facility] Temperature Oral (F) 2014-11-22 16:06:00 98.5 F [facility] Respitory Rate 2014-11-22 16:06:00 [facility] Respitory Rate 2014-08-18 01:58:00 [facility] Respitory Rate 2014-08-18 00:51:00 [facility] Temperature Oral (F) 2014-08-18 00:51:00 97.5 F [facility] Systolic (mm Hg) 2014-08-18 00:51:00 [facility] Diastolic (mm Hg) 2014-08-18 00:51:00 [facility] Heart Rate 2014-08-18 00:51:00 [facility] Heart Rate 2014-08-17 19:30:00 [facility] Heart Rate 2014-08-17 17:18:00 [facility] Systolic (mm Hg) 2014-08-17 17:18:00 [facility] Diastolic (mm Hg) 2014-08-17 17:18:00 [facility] Respitory Rate 2014-08-17 13:51:00 [facility] Temperature Oral (F) 2014-08-17 13:18:00 98.3 F [facility] Systolic (mm Hg) 2014-08-17 13:18:00 [facility] Diastolic (mm Hg) 2014-08-17 13:18:00 [facility] Temperature Oral (F) 2014-08-17 06:02:00 98.4 F [facility] BMI Calculated 2014-08-14 21:38:00 [facility] Weight 2014-08-14 21:38:00 [facility] Height 2014-08-14 21:38:00 165.1 cm [facility] Weight 2014-08-14 21:36:00 [facility] BMI Calculated 2014-08-14 21:36:00 [facility] Height 2014-08-14 21:36:00 165.1 cm [facility] Weight 2014-08-14 13:19:00 [facility] BMI Calculated 2014-08-14 13:19:00 [facility] Height 2014-08-14 13:19:00 165.1 cm [facility] Diastolic (mm Hg) 2014-05-13 13:00:00 [facility] Systolic (mm Hg) 2014-05-13 13:00:00 [facility] Heart Rate 2014-05-13 13:00:00 [facility] Respitory Rate 2014-05-13 13:00:00 [facility] Temperature Oral (F) 2014-05-13 13:00:00 98.6 F [facility] Temperature Oral (F) 2014-05-13 09:32:00 98.5 F [facility] Respitory Rate 2014-05-13 09:32:00 [facility] Systolic (mm Hg) 2014-05-13 09:32:00 [facility] Heart Rate 2014-05-13 09:32:00 [facility] Diastolic (mm Hg) 2014-05-13 09:32:00 [facility] Temperature Oral (F) 2014-05-13 04:06:00 98.7 F [facility] Diastolic (mm Hg) 2014-05-13 04:06:00 [facility] Respitory Rate 2014-05-13 04:06:00 [facility] Heart Rate 2014-05-13 04:06:00 [facility] Systolic (mm Hg) 2014-05-13 04:06:00 [facility] Weight 2014-05-09 11:38:00 [facility] Height 2014-05-09 11:38:00 165.1 cm [facility] BMI Calculated 2014-05-09 10:42:00 [facility] Weight 2014-05-09 10:42:00 [facility] Height 2014-05-09 10:42:00 165.1 cm [facility] Weight 2014-05-09 07:58:00 [facility] Height 2014-05-09 07:58:00 165.1 cm [facility] BMI Calculated 2014-05-09 07:58:00 [facility] Respitory Rate 2014-05-09 07:20:00 [facility] Heart Rate 2014-05-09 07:20:00 [facility] Diastolic (mm Hg) 2014-05-09 07:20:00 [facility] Systolic (mm Hg) 2014-05-09 07:20:00 [facility] Diastolic (mm Hg) 2014-05-09 05:30:00 [facility] Respitory Rate 2014-05-09 05:30:00 [facility] Systolic (mm Hg) 2014-05-09 05:30:00 [facility] Heart Rate 2014-05-09 05:30:00 [facility] Height 2014-05-08 23:31:00 165.1 cm [facility] Weight 2014-05-08 23:31:00 [facility] BMI Calculated 2014-05-08 23:31:00 [facility] Temperature Oral (F) 2014-05-08 23:31:00 98.6 F [facility] Respitory Rate 2014-05-08 23:31:00 [facility] Systolic (mm Hg) 2014-05-08 23:31:00 [facility] Heart Rate 2014-05-08 23:31:00 [facility] Diastolic (mm Hg) 2014-05-08 23:31:00 [facility] Temperature Oral (F) 2014-02-09 16:00:00 98.0 F [facility] Heart Rate 2014-02-09 16:00:00 [facility] Respitory Rate 2014-02-09 16:00:00 [facility] Systolic (mm Hg) 2014-02-09 16:00:00 [facility] Diastolic (mm Hg) 2014-02-09 16:00:00 [facility] Temperature Oral (F) 2014-02-09 12:00:00 98.6 F [facility] Diastolic (mm Hg) 2014-02-09 12:00:00 [facility] Systolic (mm Hg) 2014-02-09 12:00:00 [facility] Respitory Rate 2014-02-09 12:00:00 [facility] Heart Rate 2014-02-09 12:00:00 [facility] Temperature Oral (F) 2014-02-09 05:00:00 98.6 F [facility] Heart Rate 2014-02-09 05:00:00 [facility] Diastolic (mm Hg) 2014-02-09 05:00:00 [facility] Systolic (mm Hg) 2014-02-09 05:00:00 [facility] Respitory Rate 2014-02-09 05:00:00 [facility] BMI Calculated 2014-02-07 23:12:00 [facility] Height 2014-02-07 23:12:00 165.1 cm [facility] Weight 2014-02-07 23:12:00 [facility] Weight 2014-02-07 20:41:00 [facility] BMI Calculated 2014-02-07 20:41:00 [facility] Height 2014-02-07 20:41:00 165.1 cm [facility] Weight 2014-02-07 12:12:00 [facility] BMI Calculated 2014-02-07 12:12:00 [facility] Height 2014-02-07 12:12:00 165.1 cm [facility] Systolic (mm Hg) 2013-11-29 10:16:00 [facility] Diastolic (mm Hg) 2013-11-29 10:16:00 [facility] Temperature Oral (F) 2013-11-29 10:16:00 98.9 F [facility] Heart Rate 2013-11-29 10:16:00 [facility] Respitory Rate 2013-11-29 10:16:00 [facility] BMI Calculated 2013-11-29 09:01:00 [facility] Weight 2013-11-29 09:01:00 [facility] Height 2013-11-29 09:01:00 165.1 cm [facility] Respitory Rate 2013-11-29 09:01:00 [facility] Temperature Oral (F) 2013-11-29 09:01:00 99.1 F [facility] Heart Rate 2013-11-29 09:01:00 [facility] Diastolic (mm Hg) 2013-11-29 09:01:00 [facility] Systolic (mm Hg) 2013-11-29 09:01:00 [facility] Systolic (mm Hg) 2013-07-21 18:00:00 [facility] Temperature Oral (F) 2013-07-21 18:00:00 98.5 F [facility] Heart Rate 2013-07-21 18:00:00 [facility] Respitory Rate 2013-07-21 18:00:00 [facility] Diastolic (mm Hg) 2013-07-21 18:00:00 [facility] Respitory Rate 2013-07-21 14:00:00 [facility] Heart Rate 2013-07-21 14:00:00 [facility] Temperature Oral (F) 2013-07-21 14:00:00 99.5 F [facility] Diastolic (mm Hg) 2013-07-21 14:00:00 [facility] Systolic (mm Hg) 2013-07-21 14:00:00 [facility] Temperature Oral (F) 2013-07-21 06:24:00 97.9 F [facility] Heart Rate 2013-07-21 06:24:00 [facility] Respitory Rate 2013-07-21 06:24:00 [facility] Systolic (mm Hg) 2013-07-21 06:24:00 [facility] Diastolic (mm Hg) 2013-07-21 06:24:00 [facility] Height 2013-07-20 07:30:00 165.1 cm [facility] Weight 2013-07-19 08:35:00 [facility] Height 2013-07-19 08:35:00 165.1 cm [facility] Height 2013-07-18 17:58:00 165.1 cm [facility] Weight 2013-07-18 17:58:00 [facility] Procedures Procedure Date / Time Performed Performing Clinician [facility] X-RAY OF FINGER(S) 2+ 2017-10-08 [facility] 2016-07-29 06:00:00 [facility] vessel Hand repair [facility] Plan of Care Planned Activity Planned Date Details Comments Source Future Scheduled Test 2020-03-02 IN[place]ENZA VACCINE [place] [facility] 00:00:00 [code = INFLUENZA VACCINE] Future Scheduled Test 2017-11-22 [place] [facility] 00:00:00 SCREENING [code = COLONOSCOPY SCREENING] Future Scheduled Test 2017-11-22 SHINGLES VACCINES [place] [facility] 00:00:00 (#1) [code = SHINGLES VACCINES (#1)] Future Scheduled Test 1983 COVID-19 VACCINE [place] [facility] 00:00:00 (#1) [code = COVID-19 VACCINE (#1)] Instructions [facility] Instructions [facility] Encounters Start End Encounter Admission Attending Care Care Encounter Source Date/Time Date/Time Type Type Clinicians Facility Department ID 2017-11-04 2017-11-05 Outpatient MISCHER MISCHER [id number] 15:53:00 23:59:59 07 2017-10-19 2017-10-19 Gray Thorne [facility] [place] - [id number] [facility] 00:00:00 00:00:00 MD Aaron: [facility] [address], [address] - [address], [place] [address] , Ph. 2017-10-08 2017-10-08 [place] [facility] [place] - [id number] [facility] 00:00:00 00:00:00 [facility] Family Sergio Madison MD: [id number], [place] [address], [place] [address] , Ph. 2017-08-25 2017-08-25 Gray Thorne [facility] [place] - [id number] [address] [place] [address] 00:00:00 00:00:00 MD Aaron: [facility] [address], Practice - [address], [place] [address] , Ph. 2017-04-21 2017-04-21 Outpatient Jaskaran Yi [facility] [id number] 01:46:00 02:21:00 Jame 12 2017-04-18 2017-04-19 Outpatient Jose, [facility] [id number] 13:52:00 10:56:00 Quranjanin 11 Ani 2017-02-09 2017-02-09 Outpatient [facility] [id number] 12:02:00 23:59:00 92 2016-08-27 2016-08-27 Outpatient Jim Trujillo [facility] [id number] 13:00:00 15:43:00 Marta 10 2016-07-10 2016-08-08 Outpatient Gege Randle, [id number]. [id number] 11:10:00 23:59:00 Norman Bustamante [id number] 5.46 2016-07-27 2016-07-30 Outpatient Red, MHGHR M[facility]HR [id number] 11:11:00 15:59:00 Khris 08 Tiara K 2016-05-26 2016-06-24 Outpatient Gege Randle, 2.16.840. [id number]. [id number] 11:47:00 23:59:00 Norman Bustamante [id number] 5.46 2016-03-07 2016-03-07 Outpatient Stanley Mendez [facility] [id number] 12:37:00 17:38:00 Phil 07 2016-02-18 2016-02-18 Outpatient Wilrfed Hogan [facility] [id number] 11:28:00 16:50:00 Jeny 06 2014-11-22 2014-11-22 Outpatient Harris, MHIE MHIE [id number] 10:57:00 13:10:00 Kristen Bowens 2014-08-14 2014-08-17 Outpatient Obi, MHIE MHIE [id number] 07:18:00 20:44:00 Abilio Francois 2014-05-09 2014-05-13 Outpatient Vlad, MHIE MHIE [id number] 02:58:00 14:05:00 Radha Coates 2014-05-08 2014-05-09 Outpatient Jaskaran Yi MHIE MHIE [id number] 18:15:00 03:03:00 Jame 03 2014-02-07 2014-02-09 Outpatient Lacy [facility] [id number] 07:11:00 15:01:00 Yady wilkinson 02 2013-11-29 2013-11-29 Outpatient Cliff [facility] [id number] 03:59:00 05:18:00 Steve 2013-07-18 2013-07-21 Outpatient [facility] [id number] [facility] 11:14:00 17:02:00 l [facility] l Results Test Description Test Time Test [...] (test code = PT) 14.0 s 12.0-14.7 [facility] EmdbinwBXSZTBDVST4355-70-98 10:10:00 Test Item Value Reference Range Interpretation Comments PTT (test code = PTT) 31.1 s 22.9-35.8 [facility] MutavgcUUWMEFSEBC5725-31-47 10:10:48635Vsbyxsmu HermannHEMATOLOGY 2017-04-19 10:10:004.55[facility] RanuydsSSLQPMYUVS6487-39-02 10:10:0084.4[facility] SankflxHCBWLQUXDS5263-85-00 10:10:0014.6[facility] DxmdganTJUPNCBIMC6615-82-34 10:10:00 Test Item Value Reference Range Interpretation Comments MCH (test code = MCH) 28.0 pg 27.0-31.0 [facility] KjtfcbmUQFWBIXEDM5077-47-66 10:10:0033.2[facility] HermannHEMATOLOGY 2017-04-19 10:10:005.9[facility] NhpgewoUKNCZOHBAK1913-64-28 10:10:0038.4[facility] YdalmrcXNOQZGMQNC3176-06-09 10:10:0012.8[facility] ZlljnflKTIINUJTTP4927-50-90 10:10:008.2[facility] HermannANEMIA WCMER4306-88-44 22:50:57976Musvrgeu Lucien ANEMIA SKTAG0436-47-73 22:50:3218.6[facility] LvhwxwhHEGNWA3459-02-07 22:50:3213 [facility] LkxhyywRUBOPO5132-14-40 22:50:3257[facility] WyfnsgdPQWYQZ1538-56-14 22:50:323.80[facility] IdeffjbAANNJP8230-97-07 22:50:3295[facility] HermannLIPIDS 2017-04-18 22:50:3225[facility] GrsdbmuUBRCBU1597-98-74 22:50:3263[facility] SPECIAL KHOPLZNQJ2582-98-30 22:50:326.2[facility] HermannCARDIAC QRHDUYV6233-10-28 21:20:00<0.02[facility] HermannCARDIAC SMXUJIR0792-23-75 21:20:91294Kfybgppv HermannCARDIAC DNTLMNS4647-62-81 21:20:001.2[facility]annCARDIAC ENZYMES 2017-04-18 21:20:000.5[facility] HermannCHEM ISXCM9934-66-11 21:20:13420Uvyjapcx HermannCHEM LKHWF7316-36-22 21:20:004.0[facility] HermannCHEM IHVVT8349-04-75 21:20:0010[facility] HermannCHEM XODYM9042-29-08 21:20:000.9[facility] HermannCHEM VZQJC2073-18-22 21:20:008.7[facility] HermannCHEM ZJKXB3038-77-73 21:20:0026 [facility]annCHEM YLHWG5820-33-09 21:20:44039Vjgffead HermannCHEM PANEL 2017-04-18 21:20:0030[facility] HermannCHEM YBODN6145-15-32 21:20:003.7[facility] HermannCHEM CAPSY7424-69-03 21:20:007.7[facility] HermannCHEM MWGSV5989-08-25 21:20:000.4[facility] HermannCHEM PTNMK2392-01-39 21:20:0069[facility]annCHEM YYLLV9466-12-55 21:20:0029[facility] HermannCHEM DDINL5335-51-89 21:20:0010.0 [facility]annCHEM IKHZD9059-14-90 21:20:007[facility] HermannCHEM PANEL 2017-04-18 21:20:0092[facility] HermannCHEM YDRDR1511-51-25 21:20:25960Fcmjtxmp HermannCHEM UWRYF9147-75-10 21:20:004.0[facility]annCHEM HKUPN5726-97-49 21:20:000.67[facility] NnhlbtuVIOWEESKJL2003-64-98 21:20:00 Test Item Value Reference Range Interpretation Comments PTT (test code = PTT) 31.8 s 22.9-35.8 [facility] OukskopIWEHZLEPBP8201-60-25 21:20:008.6[facility] HermannHEMATOLOGY 2017-04-18 21:20:0014.8[facility] ZiirlgeRGMVTMBGJF2452-18-16 21:20:0039.8[facility] BwpeaulTGUHUOYGAH4269-97-14 21:20:0033.7[facility] TlafavbAQASGLUVMF4255-24-89 21:20:0083.2[facility] OvuphkoIUFIWXTPVX7678-03-53 21:20:00 Test Item Value Reference Range Interpretation Comments MCH (test code = MCH) 28.0 pg 27.0-31.0 [facility] XvcpqvvMFOZYUHIOB9130-84-25 21:20:0013.4[facility] HermannHEMATOLOGY 2017-04-18 21:20:006.6[facility] YaaboukSHOAJAPSOD5830-99-68 21:20:004.79[facility] AvqpzomHCFGXYXENM9418-79-96 21:20:22689Ehlpjcuz JbjmyhlLIWBJATNEX1300-76-06 21:20:001.00[facility] WubyullXIKQJHDSZA9966-45-22 21:20:00 Test Item Value Reference Range Interpretation Comments PT (test code = PT) 13.4 s 12.0-14.7 [facility] SinqelbZXQAETTQUY0569-24-61 21:20:000.7[facility] HermannHEMATOLOGY 2017-04-18 21:20:001.3[facility] KgssjprVLDHLWUTWV8238-76-41 21:20:000.2[facility] SnxjxlkJZUEUQKTUM9270-21-94 21:20:003.0[facility] VhrwfhwPJSUIIAVYD5050-74-16 21:20:0011.3[facility] EgguvegAYFEMCLUAE7232-61-44 21:20:004.3[facility] QALQUZSTXF0634-02-35 21:20:000.5[facility] PeojxrhKDXOACVJAC0599-32-62 21:20:00 65.4[facility] JfuyqztBRPSWBLMIS3283-83-50 21:20:0019.8[facility]annURINE AND QBGIE3467-58-45 21:20:00Negative (04/18/17 4:20 PM)[facility] AUWNT6507-59-27 21:20:00Negative *NA*(04/18/17 4:20 PM)[facility] LPQPA6963-99-49 21:20:00Negative (04/18/17 4:20 PM)[facility] HMEBJ6858-49-77 21:20:00Small *ABN*(04/18/17 4:20 PM)[facility] GNAMT4537-50-55 21:20:00Light Yellow *NA*(04/18/17 4:20 PM)[facility] UUTAF7520-29-78 21:20:006.0[facility] AND HJXDT8321-73-00 21:20:001.009[facility] AND MNFRP2936-38-03 21:20:00Clear (04/18/17 4:20 PM)[facility] YUWNK2544-25-02 21:20:004[facility]UR[facility] AND SZLJG9457-79-76 21:20:006[facility] HermannCARDIAC PMJNEEF9198-18-19 19:52:00 2.0[facility] HermannCARDIAC WMGFMAD0293-94-33 19:52:00<0.02[facility] CARDIAC AVOQGUQ7398-28-27 19:52:04279Imkkxdod HermannCARDIAC YNWCEUU4352-29-46 19:52:000.6[facility] HermannCHEM SYCBM3004-29-69 19:52:001.2[facility] HermannCHEM OLUFZ7828-54-54 19:52:003.4[facility] HermannCHEM BFDZR2563-86-67 19:52:0014 [facility] HermannCHEM JFOLT6670-42-49 19:52:23111Pfdkcjox HermannCHEM PANEL 2016-08-27 19:52:75147Elpbflmd HermannCHEM FKKMO0924-85-44 19:52:008.3[facility] HermannCHEM OQUPQ4624-44-97 19:52:0030[facility] HermannCHEM OXFIV7589-15-25 19:52:004.0[facility] HermannCHEM KMGXD4634-63-43 19:52:007.4[facility] HermannCHEM UASPY9771-86-88 19:52:000.4[facility] HermannCHEM VELPW4471-41-64 19:52:0071 [facility]annCHEM ZMAJS8121-71-50 19:52:009.7[facility] HermannCHEM PANEL 2016-08-27 19:52:0022[facility] HermannCHEM SMONO8236-91-00 19:52:0018[facility] HermannCHEM PYACC9964-86-51 19:52:0097[facility] HermannCHEM AIVUE2850-99-46 19:52:0012[facility] HermannCHEM ZVRDM1801-33-99 19:52:000.84[facility] HermannCHEM PRTSJ5369-02-70 19:52:94989Ikrgbxjn HermannCHEM JAPAL2560-91-58 19:52:003.7 [facility]annDRUG SCEVWM3330-82-48 19:52:00See Note *NA*(08/27/16 1:52 PM) [facility]annDR[facility] WKDNQB0414-28-52 19:52:00Negative *NA*(08/27/16 1:52 PM) [facility]DR[facility] SQXKWC6549-09-52 19:52:00Negative *NA*(08/27/16 1:52 PM) [facility]DR[facility] ZXOKMO8870-10-04 19:52:00Negative *NA*(08/27/16 1:52 PM) [facility]DR[facility] DWBGXR7920-87-07 19:52:00Negative *NA*(08/27/16 1:52 PM) [facility]annDR[facility] EBOJEH7524-06-12 19:52:00Negative *NA*(08/27/16 1:52 PM) [facility]annDR[facility] WVKVNZ8994-22-52 19:52:00Negative *NA*(08/27/16 1:52 PM) [facility]DR[facility] WRIKJI8534-76-33 19:52:00Negative *NA*(08/27/16 1:52 PM) [facility] GzhfbckPTYPFQQHWQ3140-56-12 19:52:006.3[facility] HermannHEMATOLOGY 2016-08-27 19:52:004.80[facility] LgobouyAPKMDQKBEI9872-59-59 19:52:0040.2[facility] KbirmyhSBDTNRAMAX8284-78-27 19:52:0013.4[facility] OjoqmryLJRZYNUZIS0140-91-41 19:52:0083.9[facility] HfujfwyBLBLDRGNGE7935-94-78 19:52:0033.4[facility] NKMVKMPIJZ6647-55-10 19:52:008.8[facility] GarvvjyKSBTGCGINO9907-88-88 19:52:88515 [facility] DtoyjfpVOYLBXYXGG8313-61-17 19:52:0014.8[facility] HermannHEMATOLOGY 2016-08-27 19:52:00 Test Item Value Reference Range Interpretation Comments MCH (test code = MCH) 28.0 pg 27.0-31.0 [facility] HxztxirEJLUENEYBV2242-09-19 19:52:004.0[facility] HermannHEMATOLOGY 2016-08-27 19:52:001.5[facility] PuebwswWOQSOTQXYI3902-41-39 19:52:000.2[facility] PeaecqjNIPBXYXEER2218-65-40 19:52:000.6[facility] NeipjzyCPMLCVNKQT9087-18-93 19:52:009.1[facility] QchajegEMWXTUGFVA1828-92-35 19:52:000.5[facility] WIWRUQJPSE0606-16-79 19:52:002.5[facility] VrxwtvnFIRXGAFXRQ5116-88-05 19:52:00 24.5[facility] DonvbgtIJWXBVLTVY4371-44-79 19:52:0063.4[facility]annURINE AND YJJIN4247-08-93 19:52:00Negative (08/27/16 1:52 PM)[facility] MMNRV1487-26-71 19:52:002.0[facility]UR[facility] AND LXEMS1619-64-95 19:52:00 Negative (08/27/16 1:52 PM)[facility] CDQXS4826-08-04 19:52:00 Negative *NA*(08/27/16 1:52 PM)[facility] PPXDG8885-58-39 19:52:00 Negative (08/27/16 1:52 PM)[facility] MXPYA3433-40-92 19:52:00 Test Item Value Reference Range Interpretation Comments UA Spec Grav (test code = UA Spec 1.020 1 Grav) [facility] ZQGOY0001-31-92 19:52:00Yellow *NA*(08/27/16 1:52 PM) [facility] PYMXS1709-29-37 19:52:00Clear (08/27/16 1:52 PM) [facility] ZVBGP1559-13-15 19:52:00 Test Item Value Reference Range Interpretation Comments UA pH (test code = UA pH) 6.5 1 5.0-8.0 [facility] EVKVT8678-61-48 19:52:00None Seen (08/27/16 1:52 PM) [facility] PcxltjmTYLCFAQDJN0501-96-18 22:25:00<0.003[facility] HermannTOXICOLOGY 2016-07-28 22:25:00<3[facility] HermannDRUG TWSRFG7815-91-49 22:20:00Negative *NA*(07/28/16 4:20 PM)[facility]DR[facility] NDIOTI2739-87-10 22:20:00Negative *NA*(07/28/16 4:20 PM)[facility]DR[facility] BLLDHO6899-71-03 22:20:00Negative *NA*(07/28/16 4:20 PM)[facility]annDR[facility] WQXBCZ7856-28-68 22:20:00Negative *NA*(07/28/16 4:20 PM)[facility]annDR[facility] GELADW3245-71-61 22:20:00Negative *NA*(07/28/16 4:20 PM)[facility]DR[facility] XTGMNF0663-47-35 22:20:00Negative *NA*(07/28/16 4:20 PM)[facility] [id number] 22:20:00Negative *NA*(07/28/16 4:20 PM)[facility] [id number] 22:20:00See Note *NA*(07/28/16 4:20 PM)[facility] [id number] 22:20:00None Seen (07/28/16 4:20 PM)[facility] [id number] 22:20:00None Seen (07/28/16 4:20 PM)[facility] [id number] 22:20:00 Negative (07/28/16 4:20 PM)[facility] [id number] 22:20:00 Negative *NA*(07/28/16 4:20 PM)[facility] [id number] 22:20:00Negative (07/28/16 4:20 PM)[facility] [id number] 22:20:001.0[facility] [id number] 22:20:00Trace *ABN*(07/28/16 4:20 PM)[facility] [id number] 22:20:00 Test Item Value Reference Range Interpretation Comments UA pH (test code = UA pH) 8.0 1 5.0-8.0 [facility] [id number] 22:20:00Trace *ABN*(07/28/16 4:20 PM) [facility] [id number] 22:20:00Negative (07/28/16 4:20 PM) [facility] [id number] 22:20:00Negative (07/28/16 4:20 PM) [facility] [id number] 22:20:00Yellow *NA*(07/28/16 4:20 PM) [facility] [id number] 22:20:00 Test Item Value Reference Range Interpretation Comments UA Spec Grav (test code = UA Spec 1.020 1 Grav) [facility] [id number] 22:20:00Clear (07/28/16 4:20 PM) [facility] [id number] 17:40:000.4[facility] HQYGLIN8817-23-30 17:40:001.0[facility] [id number] 17:40:00 <0.02[facility] LVCHORO4306-90-65 17:40:88605[facility] CHEM QYXWD5416-53-57 17:40:48631Rpkzlpqt HermannCHEM SEZDL6124-09-41 17:40:003.9 [facility] [id number] 17:40:008.0[facility] PANEL 2016-07-27 17:40:0011[facility] [id number] 17:40:32283Sjvzrnke HermannCHEM SUDUY4122-27-90 17:40:000.76[facility] [id number] 17:40:0093[facility] BCTSI3515-26-83 17:40:000.3[facility] TTUQQ2328-88-89 17:40:0029[facility] [id number] 17:40:0091 [facility] KGRFD9226-28-13 17:40:0016.4[facility] PANEL 2016-07-27 17:40:0014[facility] SFEKH8864-73-33 17:40:001.0[facility] XIBKX6294-17-30 17:40:004.1[facility] XVVGP7077-78-46 17:40:008.3[facility] FPVPN6725-40-61 17:40:0027[facility] YAHTZ5967-52-85 17:40:0024[facility] BCCCM2213-52-01 17:40:003.4 [facility] ZBGSU0981-12-72 17:40:96485Mcupbnrl HermannHEMATOLOGY 2016-07-27 17:40:0070.6[facility] NutblwmHAIICMNCCX4298-28-44 17:40:007.7[facility] OpsbotxTSKHZBGKUP3610-44-48 17:40:0019.1[facility] MrfjzqfIGTDCWAQLW0214-11-34 17:40:001.1[facility] OpbbozpACAIYIJWBK3717-19-23 17:40:001.5[facility] DXFPWVIDNO6346-98-60 17:40:000.1[facility] FixzeiwFAEKWSYEJK5037-97-67 17:40:000.1 [facility] XozquhiYIYKYWRUEH7556-79-52 17:40:004.2[facility]ann[facility] 2016-07-27 17:40:000.5[facility] EolfcbwDGWVYVVOWQ2579-73-42 17:40:001.1[facility] KrvonkdSJXARFIAUA1295-73-88 17:40:00 Test Item Value Reference Range Interpretation Comments PT (test code = PT) 13.6 s 12.0-14.7 [facility] VwmyluuCHOMVATYLF2057-42-91 17:40:001.02[facility] 2016-07-27 17:40:00 Test Item Value Reference Range Interpretation Comments PTT (test code = PTT) 28.3 s 22.9-35.8 [facility] EeifxatIEEQIUITSN4507-88-39 17:40:008.0[facility] 2016-07-27 17:40:84243Acuobymn ZobhuaqYWLNTXMETZ9815-48-27 17:40:0014.5[facility] YhubelpUUBJJDDZQP8643-92-84 17:40:006.0[facility] RyhpkzgVYHCRKRCLZ3738-97-47 17:40:0084.1[facility] BgfoveuTXDNTRHBEW3846-97-35 17:40:0042.3[facility] FOAHYADURI3218-80-45 17:40:0014.3[facility] YcghvdkMLYGGOJHKU6048-93-16 17:40:00 5.03[facility] YklxslfXJQPSQWNKR1784-15-50 17:40:00 Test Item Value Reference Range Interpretation Comments MCH (test code = MCH) 28.5 pg 27.0-31.0 [facility] EgagfskAYAEXRADQD1542-25-48 17:40:0033.9[facility] HermannLIPIDS 2016-07-27 17:40:005.52[facility] WppquycIMCXMB7266-30-81 17:40:0023[facility] JzyifhyTPMKKW8056-32-63 17:40:79063Bnhgqoet MkngawgTFJIXG2799-57-24 17:40:59521 [facility] NckoywjKXDQHB8410-04-02 17:40:0042[facility] JrdupqoLXGTBY1557-86-83 17:40:0062[facility] HermannSPECIAL JGGWXBTUB4789-69-98 17:40:005.9[facility] HermannCHEM CYMTB9779-68-80 21:19:0077[facility]annCHEM FMYAJ1813-36-88 21:19:0030[facility]annCHEM YROIN2966-58-53 21:19:21038Kdsycgau HermannCHEM QWMIE2895-73-54 21:19:002.7[facility] HermannCHEM LGQZN6038-91-43 21:19:82239 [facility]annCHEM PKKUF4860-95-38 21:19:008.1[facility] HermannCHEM PANEL 2016-03-07 21:19:0011.7[facility]annCHEM UGAGS4610-41-55 21:19:007[facility]annCHEM TOFZX5783-33-79 21:19:001.27[facility]annCHEM TWBRX7257-80-45 21:19:41413Yhrwmfmr CaelhraFZDEGBGMLUGW1952-25-47 21:19:002.7[facility] DRUG VEGRXO8259-52-56 18:30:00Negative *NA*(03/07/16 1:30 PM)[facility]annDRUG PSUFZY3671-46-43 18:30:00Negative *NA*(03/07/16 1:30 PM)[facility]annDRUG BSYMKB6619-80-56 18:30:00Negative *NA*(03/07/16 1:30 PM)[facility]annDRUG GUZADQ8974-72-79 18:30:00Negative *NA*(03/07/16 1:30 PM)[facility]annDRUG AERCUU8508-43-97 18:30:00Negative *NA*(03/07/16 1:30 PM)[facility]annDRUG QAVXTJ7256-23-70 18:30:00Negative *NA*(03/07/16 1:30 PM)[facility]annDRUG GVVVUO3739-14-06 18:30:00See Note *NA*(03/07/16 1:30 PM)[facility]annDRUG UGOWFZ3186-45-74 18:30:00Negative *NA*(03/07/16 1:30 PM)[facility]annUR[facility] AND PSGCH6332-03-05 18:30:00None Seen (03/07/16 1:30 PM)[facility] AND QRYOE1857-02-61 18:30:00Performed (03/07/16 1:30 PM)[facility] AND XQXKU4347-29-66 18:30:00Negative (03/07/16 1:30 PM)[facility] STOOL 2016-03-07 18:30:00Positive *ABN*(03/07/16 1:30 PM)[facility] STOOL 2016-03-07 18:30:002.0[facility] CPODU4797-74-81 18:30:00Negative (03/07/16 1:30 PM)[facility] ZBRQJ7461-89-35 18:30:00Moderate *ABN*(03/07/16 1:30 PM)[facility] OWSOH2071-41-27 18:30:00Negative (03/07/16 1:30 PM)[facility] KTRCS1640-07-73 18:30:00Clear (03/07/16 1:30 PM)[facility] MCNGT5175-67-54 18:30:00 Test Item Value Reference Range Interpretation Comments UA pH (test code = UA pH) 5.5 1 5.0-8.0 [facility] JCNGB3612-23-74 18:30:00>=1.030 *ABN*(03/07/16 1:30 PM)[facility]annCARDIAC NCBFBKF7929-68-19 18:25:000.3[facility]annCARDIAC AWMULQZ8569-51-51 18:25:001.5[facility]annCARDIAC AGRRCEZ4857-89-87 18:25:00 501[facility]annCARDIAC DYDTKCD0783-72-33 18:25:008[facility]annCARDIAC TDVRNYC1974-64-02 18:25:000.06[facility]annCARDIAC FGUAPFG1267-94-15 18:25:00 7[facility] HermannCHEM QVGZC1836-05-92 18:25:000.9[facility] HermannCHEM PANEL 2016-03-07 18:25:0089[facility] HermannCHEM FCSOV6774-02-50 18:25:96112Jruvvyka HermannCHEM HQZVB0156-84-33 18:25:000.9[facility]annCHEM OBTRK3327-41-11 18:25:003.9[facility]annCHEM AIMRD0239-74-57 18:25:0052[facility]annCHEM XKDNK8751-29-42 18:25:003.7[facility]annCHEM NFUSG7080-90-21 18:25:007.6 [facility]annCHEM KQBJQ6497-29-37 18:25:0013.5[facility]annCHEM PANEL 2016-03-07 18:25:009.1[facility]annCHEM SRJRL6918-09-32 18:25:005[facility]annCHEM SGKNJ3920-61-27 18:25:0064[facility]annCHEM HVACO7755-00-90 18:25:001.47[facility]annCHEM PDFUX4299-23-47 18:25:63948Utyhdwuk HermannCHEM EFYUJ8789-39-38 18:25:0030[facility]annCHEM QJPXQ5286-89-64 18:25:002.5 [facility]annCHEM DSNNS0618-17-89 18:25:0099[facility]annCHEM PANEL 2016-03-07 18:25:007[facility]annCHEM AOCNF5562-26-08 18:25:33935Qaerksln HcopmdzQSCNODQVLG9735-65-32 18:25:005.7[facility] LlodcdkLHGOJGWRQD1447-05-74 18:25:001.3[facility] BdkbxjjYIGPTDKUZW5887-49-48 18:25:000.1[facility] HZGTMLNPAZ8279-43-22 18:25:000.1[facility] MnlonvjXXZHDQLTRX3535-28-64 18:25:000.7 [facility] HqbtvdjLVOVUPZIBF0061-90-08 18:25:0070.8[facility] HermannHEMATOLOGY 2016-03-07 18:25:000.9[facility] FndezdhAIGZJURRAM9146-87-13 18:25:001.5[facility] CpyicyqOGXMEOMLWM3712-80-56 18:25:0010.7[facility] MqvefjoGHPZSWMBWO2511-83-85 18:25:0016.3[facility] JsgxnajYEWOMMHNHG9658-50-15 18:25:0014.2[facility] CHCYXWYZKH8385-42-30 18:25:0043.6[facility] DxeeauaPVKHJULWDM7673-84-12 18:25:00 32.6[facility] LysomvnSNRYYBNQYT1567-17-39 18:25:0015.1[facility] HermannHEMATOLOGY 2016-03-07 18:25:0087.6[facility] JrhwptxANEXETQTHF8663-65-02 18:25:00 Test Item Value Reference Range Interpretation Comments MCH (test code = MCH) 28.6 pg 27.0-31.0 [facility] QwuqtrqWXJKTEZZPA8291-77-07 18:25:008.0[facility] HermannHEMATOLOGY 2016-03-07 18:25:004.97[facility] KqpoapmCHAKBVMPSQ0921-27-98 18:25:34948Zctphtgt NjaxnllQZLTWUNSRW7973-20-13 18:25:008.5[facility] HermannCARDIAC RRBSTED0940-99-37 17:22:000.7[facility]annCARDIAC AWTFTKG3369-12-69 17:22:10555Cxisasoz Lucien CARDIAC WEMNLUM0079-42-18 17:22:005.2[facility]annCARDIAC PJBAJKO9082-97-92 17:22:000.02[facility] HermannCHEM CDIJX7141-70-90 17:22:02803Kymlvdsc HermannCHEM ZNRPU5775-31-23 17:22:004.2[facility] HermannCHEM JQZAX6533-06-55 17:22:006 [facility]annCHEM PPDRU9840-85-87 17:22:000.8[facility] HermannCHEM PANEL 2016-02-18 17:22:008.2[facility] HermannCHEM QSCPY6149-22-66 17:22:36472Mrbotdrq HermannCHEM MZZJF3768-55-66 17:22:0062[facility]annCHEM JLRGP8988-75-65 17:22:0084[facility]annCHEM ODPBC3071-28-03 17:22:005[facility]annCHEM FSASG2207-06-16 17:22:000.90[facility]annCHEM KDHSC0895-58-79 17:22:0096 [facility]annCHEM DCMTG4783-74-75 17:22:64969Hhqdhjyc HermannCHEM PANEL 2016-02-18 17:22:004.7[facility] HermannCHEM LMRIW9564-90-72 17:22:0036[facility]annCHEM KYIRK6135-93-17 17:22:005.7[facility]annCHEM KRWNT9510-60-42 17:22:12338Mlaayzpi HermannCHEM AOOBW3116-59-34 17:22:000.6[facility]annCHEM FUJIN9066-23-30 17:22:007.5[facility] HermannCHEM JGSVY8679-62-69 17:22:003.3 [facility] WqalxbyALMDYYQIQR3805-43-32 17:22:0062.9[facility] HermannHEMATOLOGY 2016-02-18 17:22:0022.7[facility] JlewqdeFQTNXZLPHJ3865-65-41 17:22:00Normal (02/18/16 12:22 PM)[facility] NsgayonYORTJTYIJO0394-45-07 17:22:00Normal (02/18/16 12:22 PM)[facility] KyhcjpgSFODJIANXR9938-48-55 17:22:003.9[facility] YKNMCYMEIV3216-41-69 17:22:001.2[facility] YdxlehfLRVVKIUUTU5350-36-39 17:22:002.7 [facility] NylicagGXCDTFNMJC6474-96-76 17:22:0010.5[facility] HermannHEMATOLOGY 2016-02-18 17:22:000.1[facility] BmxwlepVOGQTCAVOH5661-95-15 17:22:000.6[facility] DbdcdqcNGDEAPNKRA7678-38-53 17:22:000.2[facility] OckvsqlVURQCYMOSS8485-52-37 17:22:001.4[facility] DjqjwxsAYTOSPCHTI4645-79-74 17:22:006.1[facility] MUGIVWVDMD8518-39-10 17:22:0013.0[facility] WltilfsYKLUYMQZSB9500-50-21 17:22:00 14.4[facility] AcjzjsyUPNXDODQTT9028-79-28 17:22:0087.9[facility] HermannHEMATOLOGY 2016-02-18 17:22:0032.8[facility] XmzhvdzEEZVOHNPLN7569-13-26 17:22:0039.6[facility] LqngmxuBGAWHHJVEW4330-60-16 17:22:004.51[facility] VplgwqdYZVWCPNIWJ7149-45-90 17:22:61412Skmtyojc ExueeeaAELYGKWYGR4060-51-00 17:22:00 Test Item Value Reference Range Interpretation Comments MCH (test code = MCH) 28.9 pg 27.0-31.0 [facility] LetddhyOOCXOMWEOB4533-94-43 17:22:009.5[facility]annURINE AND STOOL 2014-11-22 16:38:00Trace *ABN*(11/22/14 11:38 AM)[facility] STOOL 2014-11-22 16:38:00Negative (11/22/14 11:38 AM)[facility] STOOL 2014-11-22 16:38:002.0[facility]UR[facility] AND YYSCU2982-50-95 16:38:00Negative (11/22/14 11:38 AM)[facility] YSNVQ7778-87-25 16:38:00Negative (11/22/14 11:38 AM)[facility] WIGTJ2925-24-17 16:38:00Yellow *NA*(11/22/14 11:38 AM)[facility] TNPHK8891-96-38 16:38:00Clear (11/22/14 11:38 AM)[facility] TZMRZ6670-37-96 16:38:00Negative (11/22/14 11:38 AM)[facility] CMWBY1981-56-81 16:38:00 Test Item Value Reference Range Interpretation Comments UA pH (test code = UA pH) 6.5 1 5.0-8.0 [facility] WMESD3260-83-67 16:38:00 Test Item Value Reference Range Interpretation Comments UA Spec Grav (test code = UA Spec 1.025 1 Grav) [facility] SLXWK9798-45-96 16:38:00Small *ABN*(11/22/14 11:38 AM) [facility]annCHEM TMLHU9213-38-09 16:30:0077[facility] HermannCHEM PANEL 2014-11-22 16:30:49551Rvlixlfv HermannCHEM XHQDA3385-13-34 16:30:000.4[facility] HermannCHEM DQJIV6968-73-73 16:30:09647Kubebrak HermannCHEM XFAMB4117-68-67 16:30:0083[facility]annCHEM AISQK1621-68-28 16:30:004.2[facility]annCHEM PFSGK3231-17-27 16:30:008.5[facility]annCHEM ETKHI6313-75-48 16:30:009.0 [facility]annCHEM KLREG6874-65-85 16:30:0057[facility]annCHEM PANEL 2014-11-22 16:30:0030[facility]annCHEM NXZIV7106-19-35 16:30:55511Oifpqlcu HermannCHEM CMTRD1444-78-92 16:30:003.6[facility]annCHEM AOOWM5272-77-16 16:30:000.9[facility] HermannCHEM KQLIB6375-77-91 16:30:008[facility]annCHEM XTNDC2140-28-79 16:30:19215Guyqxxkg HermannCHEM VRBHN0157-07-95 16:30:0086 [facility]annCHEM KMKHM2208-64-41 16:30:009[facility]annCHEM PANEL 2014-11-22 16:30:004.3[facility] HermannCHEM TBXJV2913-01-69 16:30:001.0[facility]annCHEM VVHSV4628-51-66 16:30:009.6[facility] ZmgtafbCYCKYNGNMP9397-84-61 16:30:0033.0[facility] FcwahwwLIPYBRNJGV5762-00-84 16:30:00 Test Item Value Reference Range Interpretation Comments MCH (test code = MCH) 28.5 pg 27.0-31.0 [facility] AcanyuvTIPUIJMSPQ5632-19-80 16:30:0086.3[facility] HermannHEMATOLOGY 2014-11-22 16:30:009.3[facility] WkaopboPAXWWMEEEB7721-32-67 16:30:89242Ghlmiygn NkbilliYTPHHFORXS1304-84-55 16:30:0015.3[facility] MukchzgWGCUUSHFOA2611-45-91 16:30:005.09[facility] KxtpvnuRZTNDQYCLR1539-41-70 16:30:0043.9[facility] Lucien SPKUPSYTXX2449-70-40 16:30:0014.5[facility] VvataomRRPJBEODTR8191-89-38 16:30:00 8.2[facility] IfoiuqrPZFYGNLNDR7844-83-91 16:30:000.8[facility] HermannHEMATOLOGY 2014-11-22 16:30:006.0[facility] QbamferCUIHUYFFZK2338-33-19 16:30:000.6[facility] BwqxlozNRSJGZBYTO5314-38-34 16:30:001.4[facility] WugcypmIYUSCGWNER3007-76-15 16:30:000.1[facility] UxkmrcyTLPCATGFWZ1168-31-14 16:30:000.1[facility] ABMZXFHZRW9532-54-27 16:30:007.5[facility] BjhyizySOKBPTDKRG1580-88-37 16:30:001.5 [facility] IccgvcbRSKJIOZDCB5148-21-63 16:30:0017.4[facility] HermannHEMATOLOGY 2014-11-22 16:30:0072.8[facility] HermannCHEM JJOCE0488-55-91 10:42:002.2[facility]annCHEM VAFYE4312-55-34 10:42:000.26[facility]annCHEM XDCSF6945-13-29 10:42:0093[facility]annCHEM OJLTL9515-20-74 10:42:0011[facility]annCHEM IWEWU6728-47-10 10:42:24971Ocronivl HermannCHEM VGUYU9920-36-85 10:42:001.1 [facility]annCHEM KLCCX2670-97-55 10:42:51083Rjiofmdu HermannCHEM PANEL 2014-08-17 10:42:31169Spizjhoq HermannCHEM AZRRZ5082-29-41 10:42:003.9[facility]annCHEM YIGWB6603-19-61 10:42:0024[facility]annCHEM RWJGJ8842-39-94 10:42:008.4[facility] HermannCHEM AMCGE0380-48-79 10:42:0012.9[facility]annCHEM FOBJT2057-83-61 10:42:003.8[facility] PugaonfTGVMWGLZJN7741-49-50 10:42:000.1 [facility] HjrysdkKRUSCXHFSA9600-36-38 10:42:000.3[facility] HermannHEMATOLOGY 2014-08-17 10:42:001.1[facility] UstttorHQLDHLZJBS2894-34-17 10:42:001.3[facility] VajzpdkCWLZLPKUBI5675-82-39 10:42:007.3[facility] RqhscuyREHTEMXVJI7781-45-96 10:42:000.9[facility] NonvsdzYNKCDBWKSQ1876-50-36 10:42:0010.7[facility] RRFPRWTGEL3698-45-17 10:42:0013.2[facility] ZythevtEPNIAWQTWU6558-10-00 10:42:00 72.5[facility] BweglhsXFTVLTZJYF7289-06-80 10:42:002.7[facility] HermannHEMATOLOGY 2014-08-17 10:42:0016.2[facility] UibbpgmWBSKAKGXBA9008-67-53 10:42:69029Xeeafjbm IcdqocwDOILMSUFXF4037-07-19 10:42:009.6[facility] RnqsatrSJBXBAZCRF0437-35-83 10:42:0034.8[facility] XvmegnuGWSAVULLDN7340-97-54 10:42:0089.3[facility] VMZZOYMBUM8170-52-66 10:42:00 Test Item Value Reference Range Interpretation Comments MCH (test code = MCH) 29.2 pg 27.0-31.0 [facility] EwziaekDMFXFFTRUS7618-41-71 10:42:0032.7[facility] HermannHEMATOLOGY 2014-08-17 10:42:0011.4[facility] RnyenuiGLLIPXMKXV9704-71-93 10:42:0010.0[facility] PnhikyoRKAXPZHUGM6900-39-24 10:42:003.89[facility] HermannCARDIAC ENZYMES 2014-08-16 09:57:88406Twnnmctz HermannCARDIAC FSVOXLN8870-87-70 09:57:000.06 [facility]annCARDIAC HERDEVS2656-04-45 09:57:72520Vsqcqmme HermannCHEM PANEL 2014-08-16 09:57:002.0[facility] HermannCHEM EFAMY4808-35-09 09:57:002.8[facility] GnndbtxTMZFXUGRRWSG1951-76-23 09:57:0012.6[facility] RxjgkzuWYGUWRMIUFTL9440-54-96 09:57:0093[facility] EjxgvlyFCPVLKSBRQLU1599-31-05 09:57:94540Bichjxdb Lucien OVERMUEFZKLQ5414-19-77 09:57:001.1[facility] PdfrzyjOSAKCNOBXTLP0310-87-92 09:57:0010[facility] DhpqtycMJTVBJUILCLF2757-16-16 09:57:0024[facility] NDTHCPFONJMD9336-45-30 09:57:22322Oeakalbp OrcjrnxBRIEJVCTZTZQ9890-96-09 09:57:96396Rfrlibae FqkzwcvMDOVQJUCFNHE3052-27-04 09:57:003.6[facility] OLKTNEUJISCR8069-44-31 09:57:008.3[facility] SysumwhVPWKXNQYTW3684-10-35 09:57:00 8.0[facility] VcpjbbkAJHIDTJRRS2843-81-63 09:57:0081.9[facility] HermannHEMATOLOGY 2014-08-16 09:57:000.6[facility] HfafvjbIRNWWHUHSO1452-63-59 09:57:008.7[facility] CwdzkesRJJGJKRXKI7101-63-11 09:57:000.1[facility] IpwrpzjUTUCMSTHFG0877-69-60 09:57:000.1[facility] ThgzwcaHEKJKHNPYS8088-88-10 09:57:0012.1[facility] LGMHOXYXGJ5126-57-71 09:57:000.8[facility] MzvknbhSFGLKLWZYF0429-58-02 09:57:001.2 [facility] AvlvlyrQCKBJKUXFI7861-17-59 09:57:001.3[facility]annHEMATOLOGY 2014-08-16 09:57:0014.8[facility] WfzivziAXOZGDWENM4998-82-76 09:57:34672Bosterrp KjpserjVRSCLYPGLY1558-42-06 09:57:0016.2[facility] ByoxkwmIBQIXLGFYI6731-70-00 09:57:00 Test Item Value Reference Range Interpretation Comments MCH (test code = MCH) 28.3 pg 27.0-31.0 [facility] OzuqthpRURAMYYOGU9123-23-35 09:57:0031.7[facility] HermannHEMATOLOGY 2014-08-16 09:57:009.4[facility] YglppspQMWUKWMLUK7510-65-58 09:57:0039.5[facility] GrldhghYEOQCUCMOE3503-39-56 09:57:0089.1[facility] OxgunofCTOSSDAUBO0087-68-07 09:57:0012.6[facility] DodwjumFJKYQKAQIA5223-57-97 09:57:004.44[facility] MOLECULAR GEIVFIKWXA2941-42-38 05:56:00Negative 12(08/15/14 11:56 PM)[facility]annMOLECULAR UQURTPBJCT2433-30-92 05:56: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 (08/15/14 11:56 PM) [facility]annMOLECULAR LLJBQFIYHM1164-10-33 05:56:00Negative (08/15/14 11:56 PM)[facility]annMOLECULAR ANJUYFKXYF3778-13-83 05:56: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 Swab (08/15/14 11:56 PM)[facility]annMOLECULAR WBRTMFNEKD1874-64-05 05:56:00 Negative (08/15/14 11:56 PM)[facility]annMOLECULAR CHOCCVMPLV9507-01-58 05:56:00Negative 13(08/15/14 11:56 PM)[facility]annMOLECULAR DIAGNOSTIC 2014-08-16 05:56: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 Swab (08/15/14 11:56 PM)[facility]annMOLECULAR TLKXRFKLFV9938-49-23 05:56:00Negative 14(08/15/14 11:56 PM)[facility] MOLECULAR TQMIGXRQZI4706-15-73 05:56:00Negative (08/15/14 11:56 PM)[facility]annMOLECULAR CFYJMMFKBG6641-68-39 05:56:00Negative (08/15/14 11:56 PM) [facility]annCARDIAC ZJLBBIP6106-69-03 22:15:31618Okvrxucy HermannCARDIAC BMAEIZK9502-49-56 22:15:000.04[facility] HermannCHEM VSTTE1613-92-60 22:15:001.8 [facility]annCHEM DLYXQ6894-36-72 22:15:001.9[facility] HermannCHEM PANEL 2014-08-15 22:15:0093[facility] HermannCHEM HBEQL0478-03-45 22:15:0096[facility] HermannCHEM CSWKS9630-05-08 22:15:0012[facility] HermannCHEM OVGEW0006-91-48 22:15:0022[facility] HermannCHEM OOHOP8990-41-04 22:15:003.7[facility] HermannCHEM KIWEI1564-71-73 22:15:71138Swkbxhxd HermannCHEM FAKSU7693-98-61 22:15:001.1 [facility]annCHEM SVKTP9530-01-40 22:15:68360Ioepcswd HermannCHEM PANEL 2014-08-15 22:15:008.5[facility] HermannCHEM HIBGQ1203-95-91 22:15:0013.7[facility] AbhchjbJLWGUIUJGO9356-51-94 22:15:000.2[facility] BevbxcnXTHYPPXLQW3644-13-90 22:15:001.4[facility] EkouejvHTLMVQFFIK9703-69-39 22:15:001.1[facility] THGLOAOGIB0706-74-73 22:15:007.5[facility] NnbircbXCWIHYCMFE8380-48-83 22:15:001.1 [facility] LwujuxzVAABIUWSOG1599-65-25 22:15:000.2[facility] HermannHEMATOLOGY 2014-08-15 22:15:001.2[facility] ZpsvbofVRBXCESTUI0112-59-76 22:15:008.6[facility] WebmhejZDEVVICOLF4222-00-36 22:15:0081.4[facility] KccyyzzPAZVGQEWTG6404-86-32 22:15:0011.4[facility] EywigrjELYJYMWCTO2036-62-23 22:15:43023Kfeybqsg [facility] MRCFFAUXWL0082-38-57 22:15:0016.4[facility] VndloccYAVNQIZXRG5769-11-73 22:15:00 9.4[facility] AogksjnCGFEKGURZM3650-45-62 22:15:0031.1[facility] HermannHEMATOLOGY 2014-08-15 22:15:00 Test Item Value Reference Range Interpretation Comments MCH (test code = MCH) 27.8 pg 27.0-31.0 [facility] RpdnzbcRTZINFUDUQ6017-69-68 22:15:004.61[facility] HermannHEMATOLOGY 2014-08-15 22:15:0014.1[facility] IivlbxwUWDXRGTNQU3899-32-29 22:15:0089.2[facility] RwtyzpvIDLOAHQDIM9088-65-64 22:15:0041.1[facility] GbvxpnpNPUOEWUCON7485-43-77 22:15:0012.8[facility] HermannCARDIAC UHQWQFZ0922-79-81 17:55:28911Wthmoafj HermannCARDIAC SPVGCKY4197-52-31 17:55:000.04[facility] HermannDRUG SCREEN 2014-08-15 10:00:00Negative *NA*(08/15/14 4:00 AM)[facility]annDRUG SCREEN 2014-08-15 10:00:00Negative *NA*(08/15/14 4:00 AM)[facility]annDRUG SCREEN 2014-08-15 10:00:00Negative *NA*(08/15/14 4:00 AM)[facility]annDRUG SCREEN 2014-08-15 10:00:00Negative *NA*(08/15/14 4:00 AM)[facility]annDRUG SCREEN 2014-08-15 10:00:00See Note 9*NA*(08/15/14 4:00 AM)[facility]annDRUG SCREEN 2014-08-15 10:00:00Negative *NA*(08/15/14 4:00 AM)[facility]annDRUG SCREEN 2014-08-15 10:00:00Negative *NA*(08/15/14 4:00 AM)[facility] 2014-[facility]-15 10:00:00Negative *NA*(08/15/14 4:00 AM)[facility] - FPJXMTQV0236-70-79 15:57:31Negative (08/14/14 9:57 AM)[facility] VILUR4961-09-46 15:25:00Negative (08/14/14 9:25 AM)[facility] VWAAW1920-45-19 15:25:00Negative (08/14/14 9:25 AM)[facility] PVASJ6736-60-25 15:25:00 Test Item Value Reference Range Interpretation Comments UA Spec Grav (test code = UA Spec 1.025 1 Grav) [facility] ZWDUF3298-28-66 15:25:00Clear (08/14/14 9:25 AM) [facility] HBULX4683-16-35 15:25:00 Test Item Value Reference Range Interpretation Comments UA pH (test code = UA pH) 6.0 1 5.0-8.0 [facility] JHAMA5230-74-15 15:25:00Yellow *NA*(08/14/14 9:25 AM) [facility] RINTU4386-16-50 15:25:00Negative *NA*(08/14/14 9:25 AM) [facility] CYYBJ4992-28-50 15:25:00Negative (08/14/14 9:25 AM) [facility] LLQHV5349-03-75 15:25:001.0[facility] FWTUQ8293-55-24 15:25:00Negative (08/14/14 9:25 AM)[facility] FYLXB2232-84-70 15:25:00None Seen (08/14/14 9:25 AM)[facility] HGWWQ4547-97-90 15:25:00None Seen (08/14/14 9:25 AM)[facility] XUZRO5709-82-60 15:25:00None Seen (08/14/14 9:25 AM)[facility] EYFKDVA1579-91-09 14:49:0094[facility] QTDIMCB2710-11-52 14:49:00 5.6[facility] FUDVAHM5334-28-32 14:49:000.8[facility]annCHE[facility] TVDMI9404-51-91 14:49:001.0[facility]annCHE[facility] OIRDU2027-95-94 14:49:003.7 [facility] VVIWI3880-62-76 14:49:000.8[facility] PANEL 2014-08-14 14:49:008[facility] CUQFJ0527-74-06 14:49:007.5[facility] UMZZJ5375-92-00 14:49:003.8[facility]CHE[facility] XYQKY9799-30-21 14:49:31956Aafgfigl HermannCHEM FCKQX8712-36-41 14:49:0033[facility]CHE[facility] NCDER6888-08-93 14:49:0027[facility] HOEVW1698-63-68 14:49:001.2 [facility] RAKOG7786-56-62 14:49:000.05[facility]annHEMATOLOGY 2014-08-14 14:49:001.01[facility] KkcfikjHKVFHRLOOD6113-34-52 14:49:00 Test Item Value Reference Range Interpretation Comments PTT (test code = PTT) 31.0 s 22.9-35.8 [facility] FkfknytRYLBAQVRAE4942-40-99 14:49:00 Test Item Value Reference Range Interpretation Comments PT (test code = PT) 13.3 s 12.0-14.7 [facility] KjusbsiLICFYGEZEQ3241-21-13 14:49:001+ *ABN*(08/14/14 8:49 AM)[facility] RuuakrkQFHUGPQNVX5017-40-68 14:49:00Normal (08/14/14 8:49 AM)[facility] - VNNGUSUV4318-07-36 14:49:00Negative (08/14/14 8:49 AM)[facility] VIRAL - TXMZRTXK3750-34-10 14:49:00Negative 15(08/14/14 8:49 AM)[facility] CHEM GAFRU2833-04-06 09:38:002.1[facility]annCHE[facility] MHNSO9225-46-12 09:38:004.9 [facility] BKEJT5438-34-61 09:38:22744Osmwctng HermannCHEM PANEL 2014-05-13 09:38:0023[facility]annCHE[facility] ARCBA5631-76-54 09:38:009.4[facility] TBEPR2984-99-95 09:38:004.9[facility]annCHE[facility] VNLOA1933-12-52 09:38:94012Xhbexxpt HermannCHEM LNEPG0977-84-85 09:38:0083[facility] KHSPU2025-56-02 09:38:000.8[facility]annCHE[facility] TZXOD7037-19-36 09:38:0011 [facility] CZIRK3176-52-52 09:38:09273Eeckjzjv HermannCHEM PANEL 2014-05-13 09:38:0016.9[facility] YbsyngfSTTOGTHKSC3605-42-59 09:38:000.3[facility] HvtbckcJYNOBJGKID2232-38-39 09:38:001.3[facility] UgbclfzMEFOXEIZCP6540-72-78 09:38:001.2[facility] RlcnlmeNGOVHMDMTA5331-88-20 09:38:006.4[facility] JFCWACICXJ6662-69-36 09:38:000.4[facility] LizhjneYRUERGGEOU1300-08-34 09:38:003.1 [facility] NknhltrHTYERKXKBN1243-14-58 09:38:0069.3[facility]annHEMATOLOGY 2014-05-13 09:38:0014.0[facility] YrxqkziXMOPQWDYHP5944-76-56 09:38:0013.2[facility] TrexrxzNADAJFHWTG3771-11-94 09:38:0012.8[facility] JvhrcwzVJUTTFYGKD7954-27-46 09:38:004.62[facility] EptcxnuZFCKBIOQIU6722-17-80 09:38:0086.0[facility] MVDEENUANW9366-90-97 09:38:0039.7[facility] VckdlxfJQJBERHEVG6792-61-77 09:38:00 222[facility] ZvunnlqDATZNWUSTL5255-19-53 09:38:0014.3[facility]annHEMATOLOGY 2014-05-13 09:38:0032.3[facility] CnxsccgCFFGMVWGCC8116-10-71 09:38:00 Test Item Value Reference Range Interpretation Comments MCH (test code = MCH) 27.7 pg 27.0-31.0 [facility] GgfuughUJVDLIEKQI1355-79-54 09:38:008.9[facility]annHEMATOLOGY 2014-05-13 09:38:009.2[facility]annCARDIAC ZKEBVBL9191-56-74 08:01:000.3 [facility] JXRSUJP1463-35-17 08:01:001.2[facility] FOVYTDK0956-57-09 08:01:71999Oqhswepo HermannCARDIAC YWPFBMO9873-10-31 08:01:00 <0.02[facility]annCHEM IXSPW7203-11-97 08:01:002.2[facility]annCHEM WIBOX4696-98-70 08:01:95169Ezdattsb HermannCHEM VTIFJ9556-89-80 08:01:009.1 [facility]annCHE[facility] OYCES1137-13-36 08:01:0025[facility]annCHE[facility] PANEL 2014-05-12 08:01:64579Miyddxla HermannCHEM JAQIX3434-78-45 08:01:004.1[facility]annCHE[facility] AGKHF0692-18-71 08:01:38245Heqxeccx HermannCHEM MHQCL5666-55-23 08:01:000.9[facility]annCHEM ZUTWF7287-44-04 08:01:006[facility]annCHE[facility] EKFOF3145-07-09 08:01:0089[facility]annCHE[facility] KCZBH4786-62-75 08:01:0015.1 [facility]annCHE[facility] KWUQO2418-96-62 08:01:004.6[facility]annHEMATOLOGY 2014-05-12 08:01:00 Test Item Value Reference Range Interpretation Comments MCH (test code = MCH) 28.3 pg 27.0-31.0 [facility] TsaolwiXRFDXMOMET2225-58-99 08:01:0033.1[facility]annHEMATOLOGY 2014-05-12 08:01:0014.2[facility] WgbnfxwHBLGYHWESL6082-26-50 08:01:25320Hdrzvqyx KobjiohCSSKBHSQPW7679-02-46 08:01:009.5[facility] PwzduyqOLQJCARWNC6424-91-36 08:01:008.9[facility] MrjmklhAWOGFZZETH6185-37-08 08:01:0012.6[facility] TNUIZVHVYK2130-48-26 08:01:0085.3[facility] TdwwjsbPQBJAZVFXP5131-18-64 08:01:00 38.1[facility] GwsjwqzIDSSZKLNSB8733-80-52 08:01:004.47[facility]annHEMATOLOGY 2014-05-12 08:01:000.9[facility] TbaitoyKUICCEIUGS7741-07-48 08:01:001.3[facility] DzfuqfiBKJGORNJFM9904-96-23 08:01:001.9[facility] WkcvmeeIRIXSAAKOX3486-48-55 08:01:006.5[facility] XwyenssPEKZVHGVNX5441-98-11 08:01:000.4[facility] DHNETJRJOL2025-85-33 08:01:0072.9[facility] VvffibaLVHHFDNLTM5070-51-13 08:01:00 9.8[facility] VbakjgxLYGLCZRSLQ2999-07-78 08:01:0015.0[facility]annHEMATOLOGY 2014-05-12 08:01:000.2[facility] ArapffnTYDNALDNTO7077-45-27 08:01:00Negative *NA*(05/12/14 3:01 AM)[facility] XBLQFVX4591-15-62 21:43:85493 [facility] KZNATIJ3560-53-14 21:43:002.2[facility] LAMCCRZ2246-02-09 21:43:000.5[facility]CARD[facility]AC VFQXLMC2044-29-77 21:43:00 <0.010[facility] JQDFTMO8420-50-90 21:43:00<0.02[facility] YYOMWMB8488-05-70 16:06:00<0.02[facility] ENZYMES 2014-05-11 16:06:00<0.010[facility] WWRNAYH3824-77-52 16:06:00 455[facility] QEMCNCH4128-95-30 16:06:000.5[facility]AC OPIBNGU4644-76-33 16:06:002.2[facility]annCHEM RLNIK4021-03-55 11:47:412.9 [facility]CHE[facility] DXOAI7093-99-81 11:47:412.0[facility]annCARDIAC ENZYMES 2014-05-11 11:11:00<0.010[facility] JapchobIIQOURXZGP5256-67-63 11:11:0011.9 [facility] UaozmlrXOCDSXCVDGWZ2745-91-84 06:05:0013.9[facility] HermannELECTROLYTES 2014-05-11 06:05:43437Frfegpca QnmvkakIHEHXNZSLDLY1702-79-62 06:05:009[facility] KncrifsPIUQSEVZGJLR0716-70-28 06:05:36914Nbzffnes JawpyzrUHFUIXLMUDHQ0809-85-78 06:05:008.6[facility] YdymvnxWZGXLXULLZEG6034-30-90 06:05:0025[facility] RQNKMLUZDBVX2948-02-35 06:05:12628Wvqxnbvt YfywkkfQFGUSWXFLDDI3765-39-69 06:05:001.0[facility] MaidchjLTMIMYRGIJMD7708-64-98 06:05:003.9[facility] VRYAFXFGJBVE8791-47-56 06:05:40688Drislrgv KeaeimdDQOSVYSRWK5390-94-88 06:05:00 79.8[facility] BjysamjSWMOYQPOYD1565-42-01 06:05:0010.5[facility]annHEMATOLOGY 2014-05-11 06:05:007.4[facility] QbvlhpuASCHBUAQRL1970-60-02 06:05:002.0[facility] IjgnkoqPEOUIKGIIX9447-77-51 06:05:000.3[facility] CuooarrETUUNAYLYP3483-18-00 06:05:001.0[facility] BqxkyqaTTVDKMTBUR8603-61-31 06:05:007.4[facility] YGBUCONTZS5885-80-76 06:05:000.7[facility] LerhzwhFXQREUBNWR0735-04-60 06:05:000.2 [facility] CxvrgblQSNBEGGZQZ5003-77-90 06:05:009.3[facility]annHEMATOLOGY 2014-05-11 06:05:46180Slxfylmq GzszjetVTEPJPXGIW2393-14-20 06:05:009.3[facility] KvavtxoFWDDNZNMOW4850-65-43 06:05:004.19[facility] DkzcxybUGNWPOVYSD2548-28-86 06:05:0011.8[facility] CsskdiaBIEGROXHUK6574-17-16 06:05:0086.3[facility] NKROOBYDTO5582-36-88 06:05:0036.2[facility] HneigvvFSSKBGVOQE6798-54-92 06:05:00 Test Item Value Reference Range Interpretation Comments MCH (test code = MCH) 28.2 pg 27.0-31.0 [facility] QkumxbkCJJDIRNVJX5344-91-15 06:05:0014.6[facility]annHEMATOLOGY 2014-05-11 06:05:0032.7[facility] QzzsnjlWLPTNVRODT2526-37-08 06:05:002.6[facility]annCHEM JBJAX9034-03-26 05:35:002.2[facility]annCHEM XNIGD7035-31-86 05:35:003.5[facility]annCHEM ZXVMD7647-41-75 05:35:001.0[facility]annCHEM MKOWO8370-87-38 05:35:0014.4[facility]annCHEM XIQZD6956-43-67 05:35:009 [facility]annCHE[facility] HVTVQ9201-48-73 05:35:45361Cvznmknp HermannCHEM PANEL 2014-05-08 05:35:0075[facility]annCHEM YBRME1694-03-75 05:35:000.2[facility]annCHEM HXUDA4736-35-11 05:35:43491Egfyzgwt HermannCHEM ZUNQW6395-25-29 05:35:21699Jlciwnbw HermannCHEM MLLLA7358-58-33 05:35:001.0[facility]annCHEM NIVOL2215-10-61 05:35:003.4[facility]annCHEM LXLEF7941-69-11 05:35:009 [facility]annCHE[facility] EXDMB0043-06-71 05:35:003.6[facility]annCHEM PANEL 2014-05-08 05:35:0023[facility]annCHEM OJQWA7129-73-85 05:35:0023[facility]annCHEM QOTMW2010-83-12 05:35:008.4[facility]annCHEM ZMBST5195-82-12 05:35:27160Knvitfsa HermannCHEM HPMHL8268-89-18 05:35:0027[facility]annCHEM WRURZ1248-21-56 05:35:007.1[facility] VrpijoiTHHZJOVUQO5221-01-37 05:35:00 Test Item Value Reference Range Interpretation Comments PTT (test code = PTT) 32.9 s 22.9-35.8 [facility] ZhrsbzbBRXRBLJEWT6226-48-50 05:35:00 Test Item Value Reference Range Interpretation Comments PT (test code = PT) 13.0 s 12.0-14.7 [facility] AccnhwjTMAUFERDQQ5238-52-27 05:35:000.98[facility]annHEMATOLOGY 2014-05-08 05:35:00 Test Item Value Reference Range Interpretation Comments MCH (test code = MCH) 28.5 pg 27.0-31.0 [facility] FhkhairNRWWXPYPTR4014-38-49 05:35:0085.0[facility]annHEMATOLOGY 2014-05-08 05:35:0036.8[facility] EejttyvTKLQBONMCZ5784-09-99 05:35:008.6[facility] BsfoznbSYNDIDNPGL7206-34-43 05:35:0012.3[facility] QlycviwUHWOPSCWIM0790-77-16 05:35:004.33[facility] QbyhsnqVXPOQUDZSB3603-85-97 05:35:38749Invbnmao Lucien ROMNYDBLYK5481-77-35 05:35:0014.3[facility] YkclzrfDGAGEPWCKF9003-28-60 05:35:00 33.6[facility] OarqtshXJAUMXTOLK9266-91-70 05:35:008.9[facility]annHEMATOLOGY 2014-05-08 05:35:002.5[facility] MekqwmoOPUTGIYRRF8351-18-43 05:35:000.5[facility] ZonytbrXZOWTYESYR6829-46-00 05:35:005.9[facility] QpoilvwTKDJYAWDLU0494-23-61 05:35:001.7[facility] IwsglnrGZQDGXODZL5947-96-29 05:35:000.7[facility] MXKIAMDXJN4008-98-63 05:35:000.2[facility] PhjqxrbEZAJYYIDBJ6355-62-21 05:35:00 20.2[facility] PrliipnWZPVDLJOYZ1376-43-98 05:35:008.2[facility]annHEMATOLOGY 2014-05-08 05:35:0068.6[facility]annCARDIAC JFQCLXC5429-75-25 10:08:18468 [facility]annCHEM KQNVL2523-52-64 10:08:002.0[facility]annCHEM PANEL 2014-02-09 10:08:006.4[facility] ZjeohbmBBFMVJSTZHQY1781-14-46 10:08:009.6[facility] GwtjlseVIFEBMZLCOUF7676-71-52 10:08:66565Khfegkgt NmbnmqvCKFDBSBMZOTP7220-98-32 10:08:008.9[facility] XlghwrqBKUUDHNLIVCC0045-98-53 10:08:001.0[facility] JFHAVFLSGEEY6274-40-78 10:08:73441Afeapfby UtvysjmDIUNQPDSBCYJ2455-36-84 10:08:0032[facility] XxvqmucSLDZOTUEQBAU7655-70-75 10:08:34790Djqxgdrp Center EPNTDWPKTVXB6371-49-95 10:08:003.6[facility] OffhfjvGCWBBTGJQCKN7471-72-26 10:08:0013[facility] GchqeexFWEMNHIMYRQS0105-02-53 10:08:0091[facility] MVNMLFRPSD1519-78-84 10:08:005.7[facility] KihynkzURHPSDNCTR3408-36-17 10:08:00 4.40[facility] BoinhdfLAAIUTPEZE7906-98-51 10:08:008.8[facility]annHEMATOLOGY 2014-02-09 10:08:0014.0[facility] BzhmuoxHZQAETFCAL3923-31-34 10:08:53916Vkuxgkky SvuaefcQJWXEWMVVN0005-07-22 10:08:0085.9[facility] DfoougfWMGEBUKVOU9583-37-60 10:08:00 Test Item Value Reference Range Interpretation Comments MCH (test code = MCH) 28.1 pg 27.0-31.0 [facility] AkfbbxnWGJNKEMGIO0536-22-08 10:08:0032.7[facility] HermannHEMATOLOGY 2014-02-09 10:08:0012.4[facility] YpthbiwRRZHQHNYQX9437-66-94 10:08:0037.8[facility] HccbudaFXYZYWZSLJ3087-53-14 10:08:000.8[facility] YdoawotRGODJEPNRZ7526-17-29 10:08:000.2[facility] WhwqomgLKDPYEQSAO2718-27-75 10:08:001.6[facility] AQMFPKEINX0023-94-38 10:08:003.2[facility] ZafvbmsQVDRHNSEXG1392-91-78 10:08:003.0 [facility] LaogkpwKPTACNHFWI1859-66-05 10:08:000.3[facility]annHEMATOLOGY 2014-02-09 10:08:0013.5[facility] XancewbUHDGKZQIKA4075-13-08 10:08:0027.9[facility] UzauwnnAAEGAWBNNS8149-85-47 10:08:0055.3[facility]annURINE VJHJ4057-77-25 00:43:0023.7[facility]annURINE JROH6566-47-77 00:43:22555.2[facility] URINE AJJK9762-75-50 00:43:0067[facility]URINE TPOQ8590-84-50 00:43:000.1 [facility]annCARDIAC XBNWXIH6198-07-39 09:47:52853Peknhxio HermannCHEM PANEL 2014-02-08 09:47:0083[facility]annCHEM HSOYW6305-70-07 09:47:35221Itetjwik HermannCHEM JQOGW6594-18-88 09:47:001.2[facility]annCHEM VVHWD6190-95-95 09:47:0018[facility]annCHEM TADWO4719-34-02 09:47:21623Uosbipna HermannCHEM IVRDK1484-87-44 09:47:008.9[facility]annCHEM FFRUL9500-38-61 09:47:0032 [facility]CHE[facility] XNFTS5628-76-87 09:47:003.6[facility]annCHEM PANEL 2014-02-08 09:47:009.6[facility]annCHEM SIGMI5719-31-85 09:47:59796Rrytuaqw HermannCHEM DYTXN8134-49-82 09:47:007.8[facility]annCHEM TWFFI4583-31-29 09:47:002.2[facility] AfxbsyzDRMNBGLETT7098-66-27 09:47:96058Kzgozjby Lucien ESBVNLQNMD2459-18-01 09:47:0033.0[facility] KacrfvpNMKVKJZQON7405-80-74 09:47:00 85.4[facility] YpoisgiGETALXWWGL2393-77-57 09:47:00 Test Item Value Reference Range Interpretation Comments MCH (test code = MCH) 28.2 pg 27.0-31.0 [facility] LxnidxbLWYERCCPPQ5327-06-18 09:47:0039.5[facility]annHEMATOLOGY 2014-02-08 09:47:0013.9[facility] RvxmjfrRXNBWCAYDL1780-43-75 09:47:008.7[facility] BqhwztnSOSHBUXRIH7653-30-81 09:47:0013.0[facility] VefkkitLJISEGPISH2250-37-24 09:47:004.62[facility] KcvdgbcJOCCXPRNDR7015-05-19 09:47:005.7[facility] WJJTOPYHCY9790-66-43 09:47:0024.2[facility] CyicofsEIRXOMAQER8605-89-31 09:47:00 59.5[facility] KabslqvLVJVNRLSOI4137-75-01 09:47:000.3[facility]annHEMATOLOGY 2014-02-08 09:47:0012.9[facility] CdgrrbbGPFUFEFXJK4113-45-60 09:47:003.1[facility] YflecbzCCJWNDFXVW2053-70-65 09:47:003.4[facility] FyujjgbIPLJVOATPG9998-07-31 09:47:001.4[facility] RvrkigjQOOFBHXNGH7118-89-88 09:47:000.7[facility] YFZKWOADJP7301-93-41 09:47:000.2[facility]URINE AND UQQFR7050-43-23 17:00:00Performed (02/07/14 12:00 PM)[facility] DPIIW2429-76-35 17:00:0051-100 (02/07/14 12:00 PM)[facility] IXKGM1873-38-65 17:00:00None Seen (02/07/14 12:00 PM)[facility] LUKJQ7975-21-18 17:00:00Trace *ABN*(02/07/14 12:00 PM)[facility] KDHCA2560-53-11 17:00:00Small *ABN*(02/07/14 12:00 PM)[facility] XCFAP7674-31-58 17:00:000.2[facility] YOZFB3021-20-72 17:00:00Negative (02/07/14 12:00 PM)[facility] JGYSB8549-07-67 17:00:00Negative (02/07/14 12:00 PM)[facility] TDWAB5157-50-08 17:00:00Negative (02/07/14 12:00 PM)[facility] BOTBV1123-85-44 17:00:00Yellow *NA*(02/07/14 12:00 PM)[facility] BHJUA3038-90-43 17:00:00Clear (02/07/14 12:00 PM)[facility] JJCTN5818-66-55 17:00:00 Test Item Value Reference Range Interpretation Comments UA Spec Grav (test code = UA Spec 1.025 1 Grav) [facility] FXJLI0340-13-47 17:00:00 Test Item Value Reference Range Interpretation Comments UA pH (test code = UA pH) 6.0 1 5.0-8.0 [facility] RWOTH2168-92-46 17:00:00Trace *ABN*(02/07/14 12:00 PM) [facility] AMZIP3836-06-09 17:00:00Negative (02/07/14 12:00 PM) [facility]annCARDIAC IQRCDFI0385-76-90 12:50:000.7[facility]annCARDIAC LPWNHHP6941-33-46 12:50:005.2[facility]annCARDIAC ITVFYHT5438-41-12 12:50:00 <0.02[facility]annCARDIAC IGGDCHG7408-82-52 12:50:64933Iurhzkca Lucien CHEM SSBIH4898-32-04 12:50:92353Bavibqbg HermannCHEM RCHED7068-33-54 12:50:0036 [facility]annCHEM QAFMX4147-83-85 12:50:0041[facility]annCHEM PANEL 2014-02-07 12:50:0095[facility]annCHEM VQYLC4323-96-45 12:50:000.8[facility]annCHEM OQBQO1251-32-77 12:50:0027[facility]annCHEM NWQLI9734-64-45 12:50:007.9[facility]annCHEM JZVPK8117-88-58 12:50:009.2[facility]annCHEM QTRZR1837-98-13 12:50:0040[facility]annCHEM FRIGE5914-86-80 12:50:004.1 [facility]annCHEM IWFIL8721-02-18 12:50:002.4[facility]annCHEM PANEL 2014-02-07 12:50:0026[facility]annCHEM TQVRD4911-30-42 12:50:94661Afsckuzt HermannCHEM KJRAC0900-29-42 12:50:0098[facility]annCHEM XWGYN2444-36-15 12:50:003.1[facility]annCHEM NBRWU1627-22-67 12:50:28568Trtnjump HermannCHEM FICOT0365-74-37 12:50:003.8[facility]annCHEM REYNT0952-58-06 12:50:0011 [facility]annCHEM JISNI3905-59-50 12:50:0013.1[facility]annCHEM PANEL 2014-02-07 12:50:001.1[facility] IobjkhmQBKNKQDSTJ9473-99-49 12:50:0013.9[facility] EjnlkxwDTAADQYFHO0559-04-73 12:50:0033.3[facility] WefirqiBYJTHAQVTL2167-36-07 12:50:008.7[facility] UnnidcvLUGHHCAHCS7131-61-76 12:50:68839Mlxvsqcv Lucien UUOWOQESUL9212-05-02 12:50:00 Test Item Value Reference Range Interpretation Comments MCH (test code = MCH) 28.3 pg 27.0-31.0 [facility] GosqcnpFWTRXNBRON4705-47-20 12:50:0084.9[facility] HermannHEMATOLOGY 2014-02-07 12:50:0043.9[facility] AmmlplxKASHTQGWAE4030-77-42 12:50:008.4[facility] EowxgqjJFLSBHBXDT7877-51-82 12:50:005.18[facility] SsiqvlfYFMVJIMTKV3468-78-72 12:50:0014.6[facility] LjgosxjKDPTNOBXQC4776-99-57 12:50:000.1[facility] LYRSUYNCDT3175-58-14 12:50:005.7[facility] VvnstfaRNHHSQUZLX6574-50-94 12:50:001.5 [facility] VttnohvJJKQNULTGM7525-13-15 12:50:001.0[facility]annHEMATOLOGY 2014-02-07 12:50:001.5[facility] MkjqtzeFJVLSGJWRF4135-56-44 12:50:0067.6[facility] StfgpbdBAXEKBIWNR1114-13-15 12:50:0018.4[facility] PklqibqCRAAWJUBSJ9065-49-23 12:50:0011.9[facility] ZglyiirDCLMQRGSDA0475-14-41 12:50:000.6[facility] TULTRKNAXL4880-64-22 12:45:56Negative (02/07/14 7:45 AM)[facility]annCHEMISTRY 2013-07-21 11:10:002.3[facility] UyunfsjBFUHSZTEC0922-29-41 11:10:004.4[facility] ObecgcsFHZRBYTOC8652-71-47 11:10:0023[facility] VcbklqbMYCYKDAYM9889-42-36 11:10:48145Lgxvyumw UzvnosvZCTGVNNZF7472-28-46 11:10:0016[facility] RXNZKNICQ6124-95-25 11:10:001.0[facility] DravuwaTIYBSVGVU5490-80-75 11:10:19035 [facility] NbewvvsGHPCXUDVQ9562-44-34 11:10:004.4[facility]annCHEMISTRY 2013-07-21 11:10:81971Csjzqsci MilpqefHAOJMXJDQ3608-52-85 11:10:0024[facility] BtmzknbFFSRDIQIO4624-98-06 11:10:008.6[facility] FmaegcvQHUZXAWYQ9293-72-74 11:10:85626Ifkivqwi VaaysihVIVDFDNUV1028-91-12 11:10:0012.4[facility] PMQLMWKODU3537-70-30 11:10:0014.3[facility] NnwexpsYXEVUXTOGG8251-26-96 11:10:00 32.8[facility] DeezeobMZGSFYYVEJ0172-64-58 11:10:00 Test Item Value Reference Range Interpretation Comments MCH (test code = MCH) 28.3 pg 27.0-31.0 N [facility] QmoqwbzWQQBVJZPGH0626-54-66 11:10:0086.4[facility]annHEMATOLOGY 2013-07-21 11:10:37359Rlfeaari OfjqkisQOVBEGLVVL4738-62-86 11:10:0010.0[facility] ZhnpghaICATZXFIDC4722-24-20 11:10:0011.1[facility] MqjvnwmMQBXUDXIQR2505-58-76 11:10:0012.3[facility] AssbismFQPEKMJXSN7038-64-09 11:10:004.33[facility] NGCLZDCVNH6686-05-96 11:10:0037.4[facility] DmuvjdvAKXLNIJYKM0091-93-52 11:10:00 7.1[facility] WefwjuuPLPPKTKYTG4074-94-88 11:10:004.6[facility]annHEMATOLOGY 2013-07-21 11:10:0012.1[facility] KhnnvhyLTOWKIKDVT9770-34-73 11:10:0075.8[facility] ZykqiypJHFJWIUHBL0170-88-53 11:10:001.3[facility] CmulgyqCKIJBVHOJT4828-82-13 11:10:008.4[facility] OvewdkaUOJKSVBTGK7295-50-29 11:10:000.8[facility] VJGLLYHOJE2307-33-65 11:10:000.5[facility] AvlcgwqOOHVAKBEQJ7091-25-09 11:10:000.0 [facility] AuogephAOHXHSXGZL6085-32-59 11:10:000.4[facility] HermannCHEMISTRY 2013-07-20 19:12:0019.3[facility] LnnzhqrJZQSEPBTO9867-73-25 11:28:002.5[facility] DxjpjbjCMIUHZMBG5767-58-13 11:28:82895Qiiyndmm KfhzqptZWMZLEUOP6918-19-31 11:28:0025[facility] CkawwnxCMEPRHLVA4566-97-44 11:28:008.5[facility] APDHBGZJG5824-64-01 11:28:003.4[facility] OyvvnmtSWPGGLNDW5142-20-42 11:28:007.0 [facility] DrbbeqwOXPVGOATR4371-00-80 11:28:0025[facility]annCHEMISTRY 2013-07-20 11:28:0078[facility] AerkmatPEBAASRPU5867-02-50 11:28:001.0[facility] KevnahuOUUWXMQTZ2791-39-18 11:28:003.8[facility] OnawcdxGTXGGSBWV2263-86-53 11:28:71065Qrlyxkmd OpefqkqEKERWJZZH6840-39-56 11:28:0024[facility] BUTQNDVHO9315-31-90 11:28:59839Fbhkfblf NsdoivvHMXBFIFZM5393-22-26 11:28:0016 [facility] GkittpaRFMYYYYUF5491-55-36 11:28:43546Hdeobuwp HermannCHEMISTRY 2013-07-20 11:28:000.4[facility] FykpfimIEAYXIEHQ6563-07-20 11:28:000.9[facility] OokbnxlWHVAYUVPL0021-82-16 11:28:0013.8[facility] RnihsswYWVFSKVAN2709-97-17 11:28:0016[facility] PryrlwpLGEARHGMI1258-50-60 11:28:003.6[facility] GACPQOFYR9450-24-72 11:28:0034[facility] MhhwziaEUDKGQONC8039-48-63 11:28:003.4 [facility] ErecjnySOYBXEUKMU5820-13-13 11:28:001.8[facility]annHEMATOLOGY 2013-07-20 11:28:007.4[facility] FhndgovXNTGCJDKJK3634-11-51 11:28:004.8[facility] RixsrekQMDZWQUBDS3447-38-13 11:28:000.4[facility] ZwrukuvRGYMLXUXRR2656-00-82 11:28:000.5[facility] OuweeqnMBBPCLHDYM9770-81-77 11:28:001.0[facility] HHQHXLWWLZ7363-39-94 11:28:000.0[facility] OjthrvfBMOZBESCXD2087-83-75 11:28:00 16.5[facility] CjjozgoAQWIJAIAUI8632-95-63 11:28:009.0[facility]annHEMATOLOGY 2013-07-20 11:28:0069.3[facility] UcinatqJFFMILRFLI2056-28-49 11:28:009.9[facility] IajjlzwVPUAUYXSGG3142-73-10 11:28:63375Nkyrqljp FqpalgcEZXWTWPGBM6263-26-27 11:28:0014.1[facility] NhynelkOEOWAYGPOV9238-27-90 11:28:00 Test Item Value Reference Range Interpretation Comments MCH (test code = MCH) 28.0 pg 27.0-31.0 N [facility] OebewgjCYDJPIQMOM9520-46-34 11:28:0031.9[facility]annHEMATOLOGY 2013-07-20 11:28:0087.6[facility] YxcqlweXVXDKPGNIZ8252-07-15 11:28:0010.7[facility] VqiihvkETCKESGRNN5039-67-19 11:28:004.38[facility] KmjlpihQPPLPUSOER6459-77-23 11:28:0012.2[facility] ZhxphsiFGXPHJQXUI1793-57-13 11:28:0038.4[facility] KJFIWRUQN9253-68-26 10:40:58Rm Air (07/20/2013 04:40:58)[facility] LWGPJDUTX3940-42-20 10:40:5833[facility] KlrevjiTDBAAWEUC2977-58-75 10:40:587.44 [facility] AmlnduuYHMZUFQQA8529-48-76 10:40:58-1[facility]annCHEMISTRY 2013-07-20 10:40:5822[facility] VhqwvccTWGUMACIZ9538-20-24 10:40:5883[facility] CqywimfSSSNDMKCL8745-89-08 10:40:58Positive (07/20/2013 04:40:58)[facility] ZlihxpiMJQEJRQPQ4710-28-68 10:40:5837.0[facility] CyefkxvWGUMETILW3854-36-19 10:40:58Left Rad (07/20/2013 04:40:58)[facility] VzcpzoyQDYMGPXQG7376-01-73 10:40:5896.6[facility] AaesikrDWOCVKKGPY1583-61-19 12:00:000.00[facility] EWSMYCBWGH1217-55-25 12:00:000.10[facility] HdiiptqIWQKFHGYUA8811-01-73 12:00:00 0.01[facility] EdpxjziQXYPDZSSX2966-10-51 11:29:000.03[facility] HermannCHEMISTRY 2013-07-19 11:29:01976Nejwemlj HpisfmiWOXHRKZBF6039-08-59 11:29:000.5[facility] OfpdifjNJWUKQTNJ6550-18-23 11:29:002.2[facility] CbmrofsQGOJYSCIX6168-63-36 11:26:73829Lyfaysst KbvrydcEOXDTUCJM5467-96-43 11:26:0081[facility] ARNJDJBXC0675-56-10 11:26:008.7[facility] SekrqnxLPSPIJZBJ9520-37-76 11:26:0024 [facility] ThfbqzxDQEOYVGSI3837-08-61 11:26:0013.2[facility] HermannCHEMISTRY 2013-07-19 11:26:003.2[facility] GodzourQWTTKCDIA2420-60-86 11:26:94414Jsuazkox UciauchNIFOWBQRP8708-72-35 11:26:001.1[facility] NdjzmjmVFOJBACSI6525-31-98 11:26:0014[facility] OofaiyoRPNBHWALU0918-36-83 11:26:52542Rjyeuliw [facility] NXEUYDIUA4145-55-79 11:26:96117Nqgrgwrq KokqwkeKEJMWBERN0470-66-45 11:26:25680 [facility] IaqwqhlYTOZXJACZ5959-93-24 11:26:0029[facility] HermannCHEMISTRY 2013-07-19 11:26:07923Dpfnapdn MsfzslwVRZQLEXCP2268-23-36 11:26:0079[facility] GeqmvmbDXXTCNYHS7619-03-81 11:26:005.38[facility] JtqfoitCRITHJDFZ1636-25-59 11:26:001.7[facility] IfwgqfiJEPCXQLIO4655-49-00 11:26:003.2[facility] AQTESWENL0755-04-45 11:26:001.1[facility] ZvqaknpYVIYBXHRTV7936-73-78 11:26:0012.6 [facility] CngxdqbCDIEGILWLP8876-02-42 11:26:004.49[facility] 2013-[facility]-19 11:26:009.8[facility] FpwkkztWFNVIDFUOG5726-40-99 11:26:0032.5[facility] IaxvtjlZTENUHUQVW7365-00-68 11:26:0014.6[facility] WearmijJHJLJBGFPZ0294-09-73 11:26:0038.8[facility] ZwfsqhkJAQEVUNWMM4924-35-46 11:26:65227Corvswtj [facility] OPUXGEJVOG9149-86-92 11:26:00 Test Item Value Reference Range Interpretation Comments MCH (test code = MCH) 28.0 pg 27.0-31.0 N [facility] FubmrggIKOMWUHEFH2557-25-82 11:26:0086.4[facility]annHEMATOLOGY 2013-07-19 11:26:0015.7[facility] PwvfgnmSYPTTHYTBD3809-08-88 11:26:008.1[facility] LwgtwsjTJQCHVKTRD5240-18-32 11:26:000.3[facility] OevshjzGNAEQPJPIK5225-78-27 11:26:000.1[facility] ZizdmelCNLYDCTTHY5181-76-51 11:26:001.3[facility] UGVXKDGTZQ5515-03-66 11:26:001.7[facility] GkhovqwELPQGEINEQ1111-34-42 11:26:001.4 [facility] LhkiovfMPABVSDGGK1272-19-41 11:26:000.4[facility]annHEMATOLOGY 2013-07-19 11:26:0012.7[facility] GkwsujdTYEBADNMAS2686-17-94 11:26:008.8[facility] MhgreitGZRWQYXPZA4956-23-13 11:26:0081.0[facility] PpatnrcEAVZISNITP7323-50-78 11:26:00Negative *NA*(07/19/2013 05:26:00)[facility]annBACT[facility] - SEROLOGY 2013-07-19 07:00:00Negative 1(07/19/2013 01:00:00)[facility]annMICRO MISC - JNKZRLHO8050-25-07 07:00:00Negative 2, 3(07/19/2013 01:00:00)[facility] ZVAKWLEHF9698-30-89 06:45:002.1[facility] OncmfqtZHTUHVYHU5002-42-85 06:45:000.5 [facility] OzsorcpUHBVFZONZ4792-81-27 06:45:000.04[facility]annCHEMISTRY 2013-07-19 06:45:82230Onnfxmfu DxybknlZDKKLXHDP7720-26-54 06:45:95992Eypnpvlc RoipjtkZLLIGBJBX5324-48-12 01:50:001.7[facility] RgomhraSATJUDNBT0428-57-18 19:38:4335[facility] KotoqamMMOGAFYHY4623-48-95 19:38:437.44[facility] NFGLPFFGV1220-25-39 19:38:4393.2[facility] VzvlwoxLLUIWDYJQ2027-65-06 19:38:4365 [facility] TlvoblgJVZDHAJPA5791-04-16 19:38:430[facility] SamfceyBOQPLCVZM3543-70-98 19:38:4324[facility] HcuopxdQTJDXUYUP8784-28-62 19:38:43Right Ra (07/18/2013 13:38:43)[facility] OzufaddLHYQHRHLB8844-51-80 19:38:43Positive (07/18/2013 13:38:43)[facility] FohhycgMLKCDGJXI1397-73-23 19:38:43Rm Air (07/18/2013 13:38:43)[facility] FwrhhykWRVVMLCMB1917-91-17 19:38:4337.0[facility] HermannVIRAL - OPWRRYQA1243-01-82 19:30:08Negative 4(07/18/2013 13:30:08)[facility] HermannVIRAL - ELLDXHIC3908-84-57 19:30:08Negative (07/18/2013 13:30:08)[facility] PLWFYIOHY1671-77-71 19:30:000.8[facility] CyiqxfdYASVDVMYX1814-51-43 19:30:0026 [facility] BialebwVYNILRNBR1044-10-08 19:30:009[facility] IxsbuycGGTOJBYPT8142-07-69 19:30:0033[facility] EhmmswcFOEWKPSDE3324-92-98 19:30:003.5[facility] MSTGAAUSL9286-17-27 19:30:001.1[facility] BwpsjurAIQFGLNZJ8526-16-73 19:30:00981 [facility] OprwkbkIAZBVFHAO9061-24-37 19:30:001.0[facility] HermannCHEMISTRY 2013-07-18 19:30:004.0[facility] JwiqhqyOGYLEAIRS2140-79-75 19:30:007.5[facility] NkkmyxkPFGVUSZMX5310-99-32 19:30:000.03[facility] CeiuainAUTBPAJLE6378-54-06 19:30:004.4[facility]
[2020-07-28 17:27] LABS: Absolute Lymphocytes (CBC) 1.5 K/uL (0.7-4.9); Hematocrit 39.3 % (39.6-49.0); Lymphocytes % 18.5 % (15.3-44.8); MPV 8.5 fL (7.6-11.3); Protime INR 1.03
[2020-07-28 17:49] LABS: ALT/SGPT 22 U/L (12-78); AST/SGOT 19 U/L (15-37); Alkaline Phosphatase 107 U/L (45-117); BUN Blood Urea Nitrogen 16 mg/dL (7-18); Bicarbonate 30 mmol/L (21-32); Bilirubin Direct < 0.1 mg/dL (0-0.2); Bilirubin Total 0.3 mg/dL (0.2-1.0); Glucose Level 99 mg/dL (74-106); Potassium 3.6 mmol/L (3.5-5.1); Protein, Total 8.1 g/dL (6.4-8.2); Sodium Level 139 mmol/L (136-145); Troponin (Emerg Dept Use Only) < 0.02 ng/mL (0.0-0.045); Uric Acid 9.6 mg/dL (3.5-7.2)
[2020-07-28 17:54] LABS: NT PRO-BNP < 5 pg/mL (<125)
[2020-07-28] MEDS ORDERED: KETOROLAC 30 MG/ML INJ ONE (18:31)
--- NOTE | 2020-07-28 19:25 | EDPHYS ---
Physician Documentation [facility] Name: Shawna Mccall Age: 54 yrs Sex: Male : 1965 Arrival Date: 07/28/2020 Time: 12:43 Bed 24 Private MD: ED Physician Clint Singer HPI: 07/28 17:10 This 54 yrs old Black Male presents to ER via Ambulatory with complaints of Leg cp Swelling. 17:10 The patient has shortness of breath with light activity, when lying flat. Onset: The cp symptoms/episode began/occurred 2 day(s) ago. Duration: The symptoms are continuous, and are steadily getting worse. Associated signs and symptoms: Pertinent negatives: chest pain, non-productive cough, diaphoresis, dizziness, fever, vomiting. Severity of symptoms: in the emergency department the symptoms are unchanged despite home interventions. Patient also c/o pain of right great and second toes and is concerned about possible gout. Patient reports right great toe swelling. Denies any known injury to right foot. Historical: - Allergies: 14:32 No Known Allergies; ca1 - PMHx: 14:32 CHF; CVA; Hypertension; Migraines; Seizures; ca1 - PSHx: 14:32 L arm; ca1 - Immunization history:: Adult Immunizations up to date, Flu vaccine is not up to date. - Social history:: Smoking status: Patient reports the use of cigarette tobacco products, denies chronic smoking, but will smoke occasionally. ROS: 17:15 Constitutional: Negative for body aches, chills, fever, poor PO intake. cp 17:15 Eyes: Negative for injury, pain, redness, and discharge. cp 17:15 ENT: Negative for ear pain, sore throat, difficulty swallowing, difficulty handling secretions. 17:15 Cardiovascular: Negative for chest pain, palpitations. 17:15 Respiratory: Positive for shortness of breath, at rest. Negative for cough, wheezing. 17:15 Abdomen/GI: Negative for abdominal pain, nausea, vomiting, and diarrhea. 17:15 Back: Negative for radiated pain. 17:15 MS/extremity: Positive for pain, swelling, tenderness, of the right great toe and right second toe, Negative for paresthesias. 17:15 Skin: Negative for rash. 17:15 Neuro: Negative for altered mental status, headache, syncope, weakness. 17:15 All other systems are negative. Exam: 17:17 ECG was reviewed by the Attending Physician. cp 17:20 Constitutional: The patient appears in no acute distress, alert, awake, cp non-diaphoretic, non-toxic, well developed, well nourished, obese. 17:20 Head/Face: Normocephalic, atraumatic. cp 17:20 Eyes: Periorbital structures: appear normal, Conjunctiva: normal, no exudate, no injection, Sclera: no appreciated abnormality, Lids and lashes: appear normal, bilaterally. 17:20 ENT: External ear(s): are unremarkable, Nose: is normal, Posterior pharynx: Airway: no evidence of obstruction, patent. 17:20 Chest/axilla: Inspection: normal, Palpation: is normal, no crepitus, no tenderness. 17:20 Cardiovascular: Rate: normal, Rhythm: regular, Edema: is not appreciated, JVD: is not appreciated. 17:20 Respiratory: the patient does not display signs of respiratory distress, Respirations: normal, no use of accessory muscles, no retractions, labored breathing, is not present, Breath sounds: are clear throughout, no decreased breath sounds, no stridor, no wheezing. 17:20 Abdomen/GI: Inspection: obese Palpation: abdomen is soft and non-tender, in all quadrants. 17:20 Back: pain, is absent, ROM is normal. 17:20 Musculoskeletal/extremity: Extremities: grossly normal except: noted in the proximal phalanx right great toe: pain, swelling, tenderness, Pulses: noted to be 2+ in the right dorsalis pedis artery and left dorsalis pedis artery. 17:20 Skin: no rash present. 17:20 Neuro: Orientation: to person, place \T\ time. Mentation: is normal, Motor: moves all fours, strength is normal. Vital Signs: 14:28 BP 116 / 97; Pulse 99; Resp 16 S; Temp 97.4(TE); Pulse Ox 100% on R/A; Weight 120.2 kg ca1 (R); Height 5 ft. 5 in. (165.10 cm) (R); Pain 7/10; 17:19 BP 111 / 70; Pulse 96; Resp 16; Temp 97.5(O); Pulse Ox 97% on R/A; mh5 19:06 BP 120 / 71; Pulse 89; Resp 18; Temp 97.9(O); Pulse Ox 100% ; mh5 14:28 Body Mass Index 44.10 (120.20 kg, 165.10 cm) ca1 MDM: 16:53 Patient medically screened. cp 18:00 Differential diagnosis: CHF exacerbation, Myocardial Infarction pneumonia, Pneumothorax cp pulmonary edema, Pulmonary Embolism Unstable Angina DVT. 18:39 ED course: no results for RXs for narcotic medications noted on [place] prescription cp monitor website. 19:00 Test interpretation: by ED physician or midlevel provider: ECG, chest xray negative for cp infiltrates and xrays of right foot negative for fracture. 19:22 Data reviewed: vital signs, nurses notes, lab test result(s), EKG, radiologic studies, cp plain films, and as a result, I will discharge patient. 19:24 Counseling: I had a detailed discussion with the patient and/or guardian regarding: the cp historical points, exam findings, and any diagnostic results supporting the discharge/admit diagnosis, lab results, radiology results, the need for outpatient follow up, a family practitioner, to return to the emergency department if symptoms worsen or persist or if there are any questions or concerns that arise at home. 19:24 ED course: VSS. No signs of respiratory distress. Oxygen sats 100% on RA. Will cp discharge to home for continued monitoring. 07/28 17:02 Order name: Basic Metabolic Panel 07/28 17:02 Order name: CBC with Diff 07/28 17:02 Order name: LFT's cp 07/28 17:02 Order name: Magnesium cp 07/28 17:02 Order name: NT PRO-BNP cp 07/28 17:02 Order name: PT-INR; Complete Time: 17:56 07/28 17:02 Order name: Troponin (emerg Dept Use Only) 07/28 17:02 Order name: Uric Acid cp 07/28 17:02 Order name: Basic Metabolic Panel; Complete Time: 17:56 EDMS 07/28 17:02 Order name: CBC with Automated Diff; Complete Time: 17:56 EDMS 07/28 17:56 Interpretation: Normal except: HGB 12.5; HCT 39.3; MCH 25.9; MCHC 31.7; RDW 15.5. 07/28 17:03 Order name: Liver (Hepatic) Function; Complete Time: 17:56 EDMS 07/28 17:58 Interpretation: Normal except: GLOB 4.1; A/G 1.0. 12/ 17:03 Order name: Magnesium; Complete Time: 17:56 EDMS 07/28 17:03 Order name: NT PRO-BNP; Complete Time: 17:56 EDMS 07/28 17:03 Order name: Troponin (Emerg Dept Use Only); Complete Time: 17:56 EDMS 07/28 17:02 Order name: XRAY Chest (1 view) 07/28 17:02 Order name: EKG; Complete Time: 17:03 07/28 17:02 Order name: Cardiac monitoring; Complete Time: 17:16 07/28 17:02 Order name: EKG - Nurse/Tech; Complete Time: 17:16 07/28 17:02 Order name: IV Saline Lock; Complete Time: 17:16 07/28 17:02 Order name: Labs collected and sent; Complete Time: 17:16 07/28 17:02 Order name: O2 Per Protocol; Complete Time: 17:16 07/28 17:02 Order name: O2 Sat Monitoring; Complete Time: 17:16 07/28 17:02 Order name: US Extremity Venous W Compression Gilberto 07/28 17:03 Order name: Uric Acid; Complete Time: 17:56 EDMS 07/28 17:57 Interpretation: URIC 9.6; Reviewed. 07/28 17:59 Order name: XRAY Foot RIGHT 3 View cp EC:17 Rate is 93 beats/min. Rhythm is regular. RI interval is normal. QRS interval is normal. cp QT interval is normal. T waves are Inverted in lead aVR. Interpreted by me. Reviewed by me. Administered Medications: 18:19 Drug: TORadol - Ketorolac 15 mg Route: IVP; Site: left antecubital; iw 19:00 Follow up: Response: No adverse reaction iw Disposition: 07/29 08:47 Co-signature as Attending Physician, Clint Singer MD. rn Disposition: 07/28/20 19:24 Discharged to Home. Impression: Pain in right toe(s) - Big and Second Toes, Shortness of breath. - Condition is Stable. - Discharge Instructions: Gout, Shortness of Breath. - Prescriptions for Tramadol 50 mg Oral Tablet - take 1 tablet by ORAL route every 8 hours as needed; 12 tablet. Medrol (Nick) 4 mg Oral Tablets, Dose Pack - take 1 tablet by ORAL route as directed - follow package instructions; 1 packet. Albuterol Sulfate 90 mcg/actuation - inhale 1-2 puff by INHALATION route every 4-6 hours; 1 Inhaler. - Medication Reconciliation Form, Thank You Letter, Antibiotic Education, Prescription Opioid Use form. - Follow up: Private Physician; When: 2 - 3 days; Reason: Recheck today's complaints. - Problem is new. - Symptoms have improved. Signatures: Dispatcher [employer] EDSeema Mcneil RN RN iw Clint Singer MD MD rn Page, Corey, PA PA cp Martinez, Maria [facility] Guillermina Farooq RN RN ca1 Corrections: (The following items were deleted from the chart) 07/28 19:39 19:24 07/28/2020 19:24 Discharged to Home. Impression: Pain in right toe(s) - Big and mh5 Second Toes; Shortness of breath. Condition is Stable. Forms are Medication Reconciliation Form, Thank You Letter, Antibiotic Education, Prescription Opioid Use. Follow up: Private Physician; When: 2 - 3 days; Reason: Recheck today's complaints. Problem is new. Symptoms have improved. cp
--- NOTE | 2020-07-28 19:25 | ER ---
Nurse's Notes [facility] Name: Shawna Mccall Age: 54 yrs Sex: Male : 1965 Arrival Date: 07/28/2020 Time: 12:43 Bed 24 Private MD: Diagnosis: Pain in right toe(s)-Big and Second Toes;Shortness of breath Presentation: 07/28 14:28 Chief complaint: Patient states: I got gout in my legs and fluid in my body cause I ca1 have heart failure. I am having trouble breathing even when I am just sitting. Symptoms started on 07/26/2020. Reports R toe swelling. Coronavirus screen: Client denies travel out of the [place] in the last 14 days. shortness of breath, Client presents with at least one sign or symptom that may indicate coronavirus-19. Standard/surgical mask placed on the client. Provider contacted for isolation considerations. Ebola Screen: Patient negative for fever greater than or equal to 101.5 degrees Fahrenheit, and additional compatible Ebola Virus Disease symptoms Patient denies exposure to infectious person. Patient denies travel to an Ebola-affected area in the 21 days before illness onset. No symptoms or risks identified at this time. Initial Sepsis Screen: Does the patient meet any 2 criteria? No. Patient's initial sepsis screen is negative. Does the patient have a suspected source of infection? No. Patient's initial sepsis screen is negative. Risk Assessment: Do you want to hurt yourself or someone else? Patient reports no desire to harm self or others. Onset of symptoms was July 28, 2020. 14:28 Method Of Arrival: Ambulatory ca1 14:28 Acuity: INGRID 3 ca1 Historical: - Allergies: 14:32 No Known Allergies; ca1 - PMHx: 14:32 CHF; CVA; Hypertension; Migraines; Seizures; ca1 - PSHx: 14:32 L arm; ca1 - Immunization history:: Adult Immunizations up to date, Flu vaccine is not up to date. - Social history:: Smoking status: Patient reports the use of cigarette tobacco products, denies chronic smoking, but will smoke occasionally. Screenin:24 Abuse screen: Denies threats or abuse. Denies injuries from another. Nutritional iw screening: No deficits noted. Tuberculosis screening: No symptoms or risk factors identified. Fall Risk None identified. Assessment: 17:23 General: Appears in no apparent distress. Behavior is calm, cooperative. Pain: iw Complains of pain in right leg and left leg. Neuro: Level of Consciousness is awake, alert, obeys commands, Oriented to person, place, time, situation, Moves all extremities. Cardiovascular: Patient's skin is warm and dry. Cardiovascular: Reports shortness of breath. Respiratory: Reports shortness of breath on exertion Respiratory effort is even, unlabored. Derm: Skin is intact, is healthy with good turgor. Musculoskeletal: Range of motion: intact in all extremities. 18:10 Reassessment: Patient appears in no apparent distress at this time. pt requesting pain iw medicine for his right great toe. Vital Signs: 14:28 BP 116 / 97; Pulse 99; Resp 16 S; Temp 97.4(TE); Pulse Ox 100% on R/A; Weight 120.2 kg ca1 (R); Height 5 ft. 5 in. (165.10 cm) (R); Pain 7/10; 17:19 BP 111 / 70; Pulse 96; Resp 16; Temp 97.5(O); Pulse Ox 97% on R/A; mh5 19:06 BP 120 / 71; Pulse 89; Resp 18; Temp 97.9(O); Pulse Ox 100% ; mh5 14:28 Body Mass Index 44.10 (120.20 kg, 165.10 cm) ca1 ED Course: 12:43 Patient arrived in ED. as 14:32 Triage completed. ca1 14:32 Arm band placed on right wrist. ca1 16:52 Jose Abdalla PA is PHCP. cp 16:52 Clint Singer MD is Attending Physician. cp 17:06 Seema Mccall, JOSE is Primary Nurse. iw 17:16 Uric Acid Sent. 5 17:16 Troponin (Emerg Dept Use Only) Sent. mh5 17:16 NT PRO-BNP Sent. 5 17:17 Magnesium Sent. 5 17:17 Liver (Hepatic) Function Sent. 5 17:17 CBC with Automated Diff Sent. 5 17:17 Basic Metabolic Panel Sent. 5 17:17 Uric Acid Sent. mh5 17:17 Basic Metabolic Panel Sent. 5 17:17 CBC with Diff Sent. 5 17:17 LFT's Sent. 5 17:17 Magnesium Sent. mh5 17:17 NT PRO-BNP [facility]. [facility] 17:17 PT-INR Sent. [facility] 17:17 Troponin (emerg Dept Use Only) Sent. [facility] 17:18 Patient has correct armband on for positive identification. Placed in gown. Bed in low mh5 position. Call light in reach. Side rails up X 1. Warm blanket given. monitor worker on. Pulse ox on. NIBP on. 17:18 Initial lab(s) drawn, by me, sent to lab. EKG done, by ED staff, reviewed by Clint Singer MD. Inserted saline lock: 20 gauge in left antecubital area, using aseptic technique. Blood collected. 17:37 XRAY Chest (1 view) In Process Unspecified. EDMS 18:37 XRAY Foot RIGHT 3 View In Process Unspecified. EDMS 18:48 US Extremity Venous W Compression Gilberto In Process Unspecified. EDMS 19:36 No provider procedures requiring assistance completed. IV discontinued, intact, iw bleeding controlled, No redness/swelling at site. Pressure dressing applied. Administered Medications: 18:19 Drug: TORadol - Ketorolac 15 mg Route: IVP; Site: left antecubital; iw 19:00 Follow up: Response: No adverse reaction iw Outcome: 19:24 Discharge ordered by . cp 19:38 Discharged to home ambulatory. iw 19:38 Condition: good 19:38 Discharge instructions given to patient, Instructed on discharge instructions, follow up and referral plans. Demonstrated understanding of instructions, follow-up care, medications, Prescriptions given X 1. 19:39 [facility] the [facility]. [facility] Signatures: Dispatcher [employer] Ashlee Mccauley Irene, RN RN Jose Clay PA PA cp Martinez, Maria [facility] Guillermina Farooq RN RN ca1
--- NOTE | 2020-07-28 19:45 | RAD REPORT ---
EXAM DESCRIPTION: US - Extrem Venous W Compress Gilberto - 07/28/2020 6:47 pm CLINICAL HISTORY: SWELLING, bilateral leg pain COMPARISON: None. TECHNIQUE: Real-time sonographic evaluation of the bilateral lower extremity common femoral, superfi cial femoral, popliteal and posterior tibial veins was performed. FINDINGS: Normal compressibility, flow augmentation, phasic flow and spontaneous flow are identified in the left and right lower extremity common femoral, superficial femoral, popliteal and posterior t ibial veins. No intraluminal filling defects seen. IMPRESSION: No DVT in either lower extremity.
--- NOTE | 2020-07-28 19:47 | RAD REPORT ---
EXAM DESCRIPTION: RAD - Chest Single View - 07/28/2020 5:37 pm CLINICAL HISTORY: SOB COMPARISON: Two view chest May 30 TECHNIQUE: AP portable chest image was obtained 07/28/2020 5:37 pm . FINDINGS: Lung volumes are low accentuating the baseline interstitial pattern. No peripheral mass or consolidation. Heart size is upper normal. Vasculature within normal limits for portable technique a nd low lung volumes. No measurable pleural effusion and no pneumothorax. No acute bony abnormality se en. No acute aortic findings suspected. IMPRESSION: Limited shallow inspiration film with no acute cardiopulmonary finding. No significant change from comparison study.
--- NOTE | 2020-07-28 19:50 | RAD REPORT ---
EXAM DESCRIPTION: RAD - Foot Right 3 View - 07/28/2020 6:36 pm CLINICAL HISTORY: right great toe pain COMPARISON: No comparisons FINDINGS: No fracture, dislocation or periosteal reaction. No periarticular erosive change, spurring or mass. No abnormal soft tissue calcifications. There is a very small plantar spur and spurring at the Achilles attachment. No joint space narrowing. No air or foreign body in the soft tissues. IMPRESSION: Negative right foot examination. No radiographic evidence for gout.
[2020-07-28 19:53] VITALS: BP 120/71; TEMP 97.9; O2SAT 100
== END 2020-07-28 19:39 | disposition home or self-care (01) ==
LOC: ER 12:39
DX: M79.674 Pain in right toe(s) (principal); I10 Essential (primary) hypertension; F17.210 Nicotine dependence, cigarettes, uncomplicated
CPT/HCPCS: 36415; 71045; 80048; 80076; 83735; 83880; 84484; 84550; 85025; 85610; 93005; 93970; 96374; 99285

== ENCOUNTER 2020-09-05 12:47 | Emergency (ER) | payer SELFPAY ==
--- OUTSIDE RECORDS SUMMARY | 2020-09-05 12:53 | XMS REPORT | Clinical Summary ---
:1965 Author Organization [facility] Address [address] [place] [address] Care Team Providers Name Role Phone Kory [...] Due Date Last Done Comments COVID-19 VACCINE (1 of 2) 1983 COLONOSCOPY SCREENING 11/22/2017 SHINGLES VACCINES (#1) 11/22/2017 INFLUENZA VACCINE 03/02/2020 09/18/2016 Implants Implanted Type Area Retail Coverage Merchandiser Lead Device Shelf Model / Identifier Expiration Serial / Date Lot Neuron Select 5f 130 [employer] - [id number] Surgical N/A: [employer] [id number] / Implanted: 09/18/2016 at [facility] (Quantity not on file) Implants; N/A / Expanders; Extenders; Surgical Wires Catheter [id number] Reperfusion High Flow Tubing 6.0f 132cm - Log [id number] Surgical N/A: [employer] [id number] / Implanted: 09/18/2016 at [facility] (Quantity not on file) Implants; N/A / Expanders; Extenders; Surgical Wires Catheter Elevator Erector Helper Mer[place] 2.45q73ts [facility] - [id number] Surgical N/A: KORINA [id number] / Implanted: 09/18/2016 at [facility] (Quantity not on file) Imp lants; N/A NEUROVASCULAR / Expanders; Extenders; Surgical Wires Results Not on fileafter 09/05/2019 Advance Directives For more information, please contact: [phone] Type Date Recorded Patient Outsole Rounder Explanati on Advance Directives, Living Will 09/18/2016 10:59 AM and Medical Power of Machine [employer]cher
--- OUTSIDE RECORDS SUMMARY | 2020-09-05 13:02 | XMS REPORT | Continuity of Care Document ---
:1965 Author Organization [employer] [facility] Care Team Providers Name Role Phone Artoo [facility] Unavailable Un available Problems Problem Status Onset Classification Date Comments Sourc e Date Reported Headache 04/24/2017 017 [facility] GOMES Active 017 [facility] HEADACHE Active 017 [facility] I63.9 STROKE, R58 Active [facility] HEMORRHAGE 017 [facility] STROKE Active Greater 017 [facility] Discharge Diagnosis: 08/30/2016 [facility] Seizure 017 [facility] SEIZURE Active Greater 017 [facility] ACUTE CEREBROVASCULAR Active Greater ACCIDENT 016 [facility] ARM WEAKNESS, FACIAL Active Greater DROOP 016 [facility] Discharge Diagnosis: 03/10/2016 [facility] Acute viral syndrome 016 [facility] Discharge Diagnosis: 03/10/2016 [facility] Atypical chest pain 016 [facility] Discharge Diagnosis: 03/10/2016 [facility] Acute hypokalemia 016 He ights CHEST PAIN Active Greate r 016 [facility] Discharge Diagnosis: 02/21/2016 Greater Syncope 016 [facility] Discharge Diagnosis: 02/21/2016 Greater Tonic seizure 016 [facility] s SYNCOPE Active Greater 016 [facility] Discharge Diagnosis: 11/25/2014 Muscle strain 015 [facility] Discharge Diagnosis: 11/25/2014 Flank pain 015 [facility] BACK PAIN Active 015 [facility] SHORTNESS OF BREATH Active 015 [facility] OTHER TENOSYNOVITIS OF Active [facility] HAND AND WRIST 014 [facility] HAND EDEMA Active 014 [place]FE[place] [facility] ABDOMINAL PAIN Active 014 [facility] Discharge Diagnosis: 12/02/2013 Acute bronchitis 014 [facility] SPITTING UP BLOOD Active 014 [facility] FLU LIKE SYMPTOMS Active 013 [facility] Congestive heart Active Problem 02/11/2018 Mi antione failure (disorder) 013 N euro,[facility], [facility] Cerebrovascular Active Problem 02/11/2018 Mis jai accident (disorder) Neuro,[facility], [facility] Diabetes mellitus Resolved Problem 02/11/2018 M ischer (disorder) Neuro,[facility], [facility] History of - CVA Resolved Problem 02/11/2018 Mi antione (context-dependent N euro, category) [facility], [facility] Hypertensive disorder, Active Problem 02/11/2018 [facility] systemic arterial Ne uro, (disorder) [facility]ly [facility], [facility] Hypercholesterolemia Active Problem 02/11/2018 [facility] (disorder) Neuro,[facility], [facility] Obesity (disorder) Active Problem 02/11/2018 [facility] Neuro,[facility], [facility] Seizure (finding) Active Problem 02/11/2018 [place] Neuro,[facility], [facility] Spider bite wound Resolved Problem 02/11/2018 M is[place] (disorder) Neuro,[facility], [facility] Syncope (disorder) Resolved Problem 02/11/2018 [facility] Neuro,[facility], [facility] CHF NOS Active [facility] RENAL FAILURE NOS Active [facility] BACTERIAL INFECTION Active [facility] SEPTICEMIA NOS Active [facility] LEFT SIDE - STROKE Active [facility] CEREBRAL INFARCTION, Active [facility] UNSPECIFIED [facility] ALCOHOL Active Prevention HEMORRHAGE, NOT Active [facility] reater ELSEWHERE [facility] ANESTHESIA OF SKIN Active [facility] Medications Medication Details Route Status Patient Ordering Order Source Instructions Provider Date topiramate 25 MG See Active 04/19/ Oral Tablet Instructions, 2017 [place] [Topamax] 1 tab PO BID for 7 days, then 2 tab PO BID thereafter, # 70 tab, 0 Refill(s), Pharmacy: [facility]/pharmacy #[id number] clopidogrel 75 MG 75 mg = 1 tab, Active 04/19/ Oral Tablet PO, Daily, # [address] [Plavix] 30 tab, 0 Refill(s), Pharmacy: [facility]/pharmacy #[id number] NIFEdipine 60 mg 60 mg = 1 tab, Active oral tablet, PO, Daily, # 2017 [facility] ast extended release 30 tab, 0 Refill(s), Pharmacy: [facility]/pharmacy #[id number] carvedilol 25 mg 25 mg = 1 tab, Active oral tablet PO, BID, # 60 [address] [place] tab, 0 Refill(s), Pharmacy: [facility]/pharmacy #[id number] atorvastatin 20 mg 20 mg = 1 tab, Active oral tablet PO, Bedtime, # 2016 [place] 30 tab, 0 Refill(s), Pharmacy: [facility]/pharmacy #[id number] Aspirin 325 MG 325 mg = 1 Active Enteric Coated tab, PO, 2017 eas t Tablet Daily, # 100 tab, 0 Refill(s), Pharmacy: [facility]/pharmacy #[id number] sacubitril 97 MG / 1 tab, PO, Active valsartan 103 MG BID, # 60 tab, 2016 [facility] Oral Tablet 0 Refill(s), Pharmacy: [facility]/pharmacy #[id number] heparin sodium, Notes: porcine Inactive [...] (Same No Longer as: BD Active 2016 [facility] Posiflush) atorvastatin Notes: (Same Inactive as: Lipitor) 2016 [facility] Levetiracetam 750 Notes: (Same No Longer MG Oral Tablet as:Keppra) Active 2016 [facility] ast [Keppra] carvedilol Notes: Give No Longer with food. Active 2016 [facility] (Same As: Coreg) Frantz's wort 1 tab, PO, Active oral capsule [id number], 0 2016 [place] Refill(s) Ibuprofen 800 mg, PO, Active BID, 0 2016 [facility] Refill(s) gabapentin 300 MG 300 mg = 1 Active Oral Capsule cap, PO, TID, 2016 [place] # 90 cap, 1 Refill(s) Hydralazine Notes: (Same No Longer as: Active 2016 [facility] Apresoline) Push over 5 minutes Zofran Notes: (Same No Longer as: Zofran) Active 2016 [facility] MEDICATION WASTE Product Size: 4 mg Product Wasted: ___ mg Tylenol Notes: Do not No Longer exceed 4 Active 2016 [facility] gm/day. (Same as: Tylenol) Tums Notes: (Same No Longer As: Tums) Active 2016 [facility] Calcium Carbonate 500 mg = 200 mg elemental calcium Dose = mg calcium carbonate ( mg elemental calcium) Saline Flush 0.9% 10 ml, Route: Inactive IVP, Drug 2016 [facility] Form: INJ, Dosing Weight 100, kg, PRN, PRN Line Flush, Start date: 04/18/17 17:33:00 CDT, Duration: 30 day, Stop date: 05/18/17 17:32:00 CDT Trazodone Notes: (Same No Longer As: Desyrel) Active 2016 [facility] clopidogrel Notes: (Same No Longer As: Plavix) Active 2016 [facility] Aspirin 325 MG Notes: (Do Not No Longer Enteric Coated Crush) Do not Active 2016 No [facility]theast Tablet crush or chew. Famotidine Notes: (Same No Longer as: Pepcid) Active 2016 [facility] Docusate Notes: (Same No Longer as: Colace) Active 2016 [facility] (Do Not Crush) Aspirin Notes: Take Inactive with food. 2016 [facility] Metoclopramide Notes: (Same Inactive as: Reglan) 2016 [facility] Diphenhydramine Notes: (Same Inactive as: Benadryl) 2016 [facility] Saline Flush 0.9% Notes: (Same No Longer as: BD Active 2016 [facility] Posiflush) Tylenol Notes: Do not Inactive Greate r exceed 4 2016 gm/day. (Same as: Tylenol) Saline Flush 0.9% Notes: Same Inactive H Greater as: BD 2016 [facility] Posiflush Sterile Levetiracetam 1000 Notes: (Same Inactive Greater MG Oral Tablet as:Keppra) 2015 [place] [Keppra] Omnipaque 350 Notes: (same Inactive G reater as:Omnipaque 2015 [facility] 350). WASTE: F/P - Black; E - Municipal Trash Bin Levetiracetam 750 750 mg = 1 Active Greater MG Oral Tablet tab, PO, BID, 2015 [facility]i ghts [Keppra] # 60 tab, 0 Refill(s) Aspirin 325 MG 325 mg = 1 Active Gre ater Oral Tablet tab, PO, 2015 [facility] Daily, # 50 tab, 0 Refill(s) Aspirin Notes: Take No Longer Greater with food. Active 2015 [facility] Mikien Notes: (Same No Longer Greate r As: Ambien) Active 2015 [facility] Chlordiazepoxide 25 mg, 1 cap, No Longer Greater Hydrochloride 25 Route: PO, Active 2015 [place] MG Oral Capsule Drug form: CAP, QID, Dosing Weight 97.727, kg, Start date: 07/28/16 17:00:00 CAPTAIN WAITER, Duration: 30 day, Stop date: 08/27/16 13:00:00 CAPTAIN WAITER Keppra 1,000 mg, 100 No Longer Great er mL, Route: Active 2015 [facility] IVPB, Drug form: INJ, Q12H, Dosing Weight 97.727, kg, Priority: NOW, Start date: 07/28/16 14:54:00 CAPTAIN WAITER, Duration: 30 day, Stop date: 08/27/16 9:00:00 CAPTAIN WAITER Levetiracetam 1000 1,000 mg, Inactive Greater MG Oral Tablet Route: PO, 2015 [facility] s [Keppra] Drug form: TAB, Q12H, Dosing Weight 97.727, kg, Priority: NOW, Start date: 07/28/16 14:53:00 CAPTAIN WAITER, Duration: 30 day, Stop date: 08/27/16 9:00:00 CAPTAIN WAITER Benzocaine 15 MG / Notes: Same No Longer Greater Menthol 3.6 MG as: Cepacol Active 2015 [place] Loz[place] [Cepacol Sore Throat Pain Relief 15/3.6] tramadol Notes: Not to No Longer Grea ter hydrochloride 50 exceed Active 2015 [facility] MG Oral Tablet 400mg/day. (Same As: Ultram) sacubitril 49 MG / 1 tab, Route: No Longer 07/28 Greater valsartan 51 MG PO, Drug Form: Active 2015 [facility] eight[facility] Oral Tablet TAB, Dosing [Entresto] Weight 97.727, kg, BID, Start date: 07/28/16 9:00:00 CAPTAIN WAITER, Duration: 30 day, Stop date: 08/26/16 17:00:00 CAPTAIN WAITER Ativan Notes: (Same No Longer Greate r as: Ativan) Active 2015 [facility] Saline Flush 0.9% Notes: Same No Longer Greater as: BD Active 2015 [facility] Posiflush Sterile Lipitor Notes: (Same No Longer [facility] r As: Lipitor) Active 2015 [facility] sacubitril-valsart Notes: (Same No Longer Greater an as: Entresto) 2015 [facility] Avoid in patients with history of angioedema due to BECKY inhibitor or ARB therapy. Do not use concomitantly or within 36 hours of BECKY inhibitors Clonidine Notes: (Same No Longer Gre[facility] ter Hydrochloride 0.2 As: Catapres) Active 2015 MG Oral Tablet Tylenol Notes: Do not No Longer Great er exceed 4 Active 2015 [facility] gm/day. (Same as: Tylenol) Saline Flush 0.9% Notes: Same No Longer Greater as: BD Active 2015 [facility] Posiflush Sterile 24 HR Nifedipine Notes: (Same [...] Coreg) Keppra Notes: Same as No Longer Gretrudi Malagon Mix Active 2015 with 100 mL [...] (Same Inactive Greater MG / Hydrocodone as: [place] 2015 [facility] ts Bitartrate 5 MG 325/5) Do not Oral Tablet [[place] exceed 4gm/day 5/325] of acetaminophen. Saline Flush [...] Active Greater Oral Tablet PO, Daily 2015 [facility] [Lipitor] 24 HR Nifedipine 60 mg = [...] G.I. Inactive Grea ter Cocktail = 2015 [facility] antacid with simethicone 22.5 mL - lidocaine viscous 7.5 mL Tylenol Notes: Do not Inactive Greate r exceed 4 2015 [facility] gm/day. (Same as: Tylenol) Sodium Chloride 1,000 mL, 1000 Inactive Greater 0.154 MEQ/ML ml/hr, Infuse 2015 [facility] ts Injectable Over: 1 hr, Solution Route: IV, 1,000, Drug form: INJ, ONCE, Priority: STAT, Dosing Weight 94.545 kg, Start date: 03/07/16 13:04:00 CDT, Duration: 1 doses or times, Stop date: 03/07/16 13:04:00 CDT Saline Flush 0.9% Notes: Same Inactive H Greater as: BD 2015 [facility] Posiflush Sterile Omnipaque 350 Notes: (same Inactive G reater as:Omnipaque 2015 [facility] 350). WASTE: F/P - Black; E - Municipal Trash Bin Hydralazine Notes: (Same Inactive Gre ater as: 2015 [facility] Apresoline) Push over 5 minutes Acetaminophen Notes: Do not Inactive Greater exceed 4 2015 [place] gm/day. (Same as: Tylenol) Labetalol 20 mg, 4 mL, Inactive [facility] er Route: IVP, 2015 [facility] Drug form: INJ, ONCE, Dosing Weight 81.818, kg, Priority: STAT, Start date: 02/18/16 12:26:00 CDT, Stop date: 02/18/16 12:26:00 CDT Saline Flush 0.9% Notes: Same Inactive H Greater as: BD 2015 [facility] Posiflush Sterile Naproxen sodium 550 mg = 1 Active 550 MG Oral Tablet tab, PO, BID, 2014 [facility] [Anaprox] PRN Pain, X 10 day, # [...] Refill(s) carvedilol PO, 0 Active Refill(s) 2014 [facility] Lisinopril PO, Daily, 0 Active Refill(s) 2014 [facility] Metformin PO, 0 Active Refill(s) 2014 [facility] Simvastatin PO, Bedtime, 0 Active Refill(s) 2014 [facility] Hydrochlorothiazid PO, Daily, 0 Active e Refill(s) 2014 [facility] Morphine 4 mg, Route: Inactive IVP, ONCE, 2014 [facility] Dosing Weight 93.835, kg, Priority: STAT, Start date: 11/22/14 11:18:00, Stop date: 11/22/14 11:18:00 Ketorolac 30 mg, Route: Inactive IVP, ONCE, 2014 [facility] Dosing Weight 93.835, kg, Priority: STAT, Start date: 11/22/14 11:18:00, Stop date: 11/22/14 11:18:00 Ondansetron 4 mg, Route: Inactive IVP, ONCE, 2014 [facility] Dosing Weight 93.835, kg, Priority: STAT, Start date: 11/22/14 11:18:00, Stop date: 11/22/14 11:18:00 Saline Flush 0.9% Notes: (Same Inactive as: BD 2014 [facility] Posiflush) Sodium Chloride 1,000 mL, Inactive 0.154 [...] Active oral tablet PO, Daily, # [address] [facility] [address] 60 tab, 0 Refill(s) carvedilol 25 mg 25 mg = 1 tab, Active oral tablet PO, Q12H, # 60 2015 [place] tab, 0 Refill(s) Aspirin 81 MG 81 mg = 1 tab, Active Enteric Coated PO, Daily, # 2015 [place] [facility] Tablet 30 tab, 0 Refill(s) Hydrochlorothiazid 25 mg = 1 tab, Active e 25 MG Oral PO, Daily, # 2015 [place] Tablet 30 tab, 0 Refill(s) Alprazolam 0.5 MG 0.5 mg = 1 Active Oral Tablet tab, PO, TID, 2015 [place] [Xanax] Anxiety, # 24 tab, 0 Refill(s) Ciprofloxacin 500 500 mg = 1 Active MG Oral Tablet tab, PO, Q12H, 2015 [place] [Cipro] # 14 tab, 0 Refill(s) Albuterol 0.09 1 puff, Active MG/ACTUAT Inhalant INHALATION, 2015 [place] Solution QID, wheezing, # 1 ea, 0 Refill(s) {21 Special Active (Methylprednisolon Instructions: 2014 [facility] e 4 MG Oral Tablet Take with or [Medrol]) } Pack without food [Medrol Dosepak] simvastatin 40 mg 40 mg =, PO, Active H oral tablet Bedtime, # 30 2014 [facility] ast tab, 0 Refill(s) Metformin 500 mg = 1 Active hydrochloride 500 tab, PO, BID, 2014 [place] [facility] Oral Tablet # 60 tab, 0 Refill(s) vancomycin + 2001 mg: Inactive Dextrose 5% in infuse over 2014 [place] IV 250 mL 2.5 hours vancomycin + 2001 mg: Inactive Dextrose 5% in infuse over 2014 [place] IV 250 mL 2.5 hours Vancomycin Special Inactive Instructions: 2014 [facility] Pharmacy to dose Zosyn Notes: (Same No Longer as: Zosyn) Active 2014 [facility] Dosing based on Piperacillin component carvedilol Notes: Give No Longer with food. Active 2014 [facility] (Same As: Coreg) multivitamin Notes: Same as No Longer Cerefolin NAC Active 2014 [facility] Non-formulary item Levaquin Notes: (Same No Longer as:Levaquin) Active 2014 [facility] Albuterol 0.833 Notes: (Same No Longer H MG/ML / as: Duoneb) Active 2014 [facility] Ipratropium [place] 0.167 MG/ML Inhalant Solution Vasotec Notes: (Same No Longer as: Active 2014 [facility] Vasotec-IV) Acetylcysteine 200 600 mg, Route: Inactive 08/16 MG/ML Inhalant PO, Drug form: 2014 No rtheast Solution SOLN, BID, Dosing Weight 96.96, kg, Priority: STAT, Start date: 08/15/14 18:35:00, Duration: 2 day, Stop date: 08/17/14 17:00:00 Lopressor Notes: (Same No Longer as: Lopressor) Active 2014 [facility] Push over 2 minutes Clonidine Notes: (Same No Longer Hydrochloride 0.1 As: Catapres) Active 2014 [facility] MG Oral Tablet Hydralazine Notes: (Same No Longer as: Active 2014 [facility] Apresoline) Push over 5 minutes Ativan Notes: (Same No Longer as: Ativan) Active 2014 [facility] Morphine Notes: (Same No Longer as:MORPhine Active 2014 [facility] Sulfate) Ativan Notes: (Same Inactive as: Ativan) 2014 Aspirin 81 MG Notes: Do not No Longer Enteric Coated crush or chew. Active 2014 No [facility]ast Tablet (Same As: Ecotrin) Simvastatin Notes: (Same No Longer as: Zocor) Active 2014 [facility] Coreg Notes: Give No Longer with food. Active 2014 [facility] (Same As: Coreg) Acetaminophen Notes: Max No Longer acetaminophen Active 2014 [facility] = 4000 mg/day (4 gm/day). (Same as: Tylenol) tramadol Notes: Not to No Longer hydrochloride 50 exceed Active [address] MG Oral Tablet 400mg/day. (Same As: Ultram) Insulin, Aspart, Notes: Roll in No Longer Human palms of hands Active 2014 [facility] gently; Do not shake vigorously. (Same as: NovoLOG) "single patient use only" Stable for 28 days at room temperature. Expires in days from Date Dextrose 50% 12.5 gm, 25 No Longer Syringe mL, Route: Active 2014 [facility] IVP, Drug Form: INJ, Dosing Weight 96.96, kg, PRN, PRN Blood Glucose Results, Start date: 08/14/14 19:28:00, Duration: 30 day, Stop date: 09/13/14 19:27:00 Glucagon 1 mg, Route: No Longer IM, Drug form: Active 2014 [facility] PDR/INJ, PRN, Dosing Weight 96.96, kg, PRN Blood Glucose Results, Start date: 08/14/14 19:28:00, Duration: 30 day, Stop date: 09/13/14 19:27:00 Magnesium Oxide Notes: (Same No Longer H as: Mag-Ox Active 2014 [facility] 400) Magnesium oxide [id number] elemental magnesium Dose=____mg magnesium oxide (___mg elemental magnesium) Lisinopril Notes: (Same No Longer as: Prinivil, Active 2014 [facility] Zestril) carvedilol Notes: Give No Longer with food. Active 2014 [facility] (Same As: Coreg) Hydralazine Notes: (Same No Longer as: Active 2014 [facility] Apresoline) Push over 5 minutes Tamiflu Notes: Take No Longer with food. Active 2014 [facility] Same as: Tamiflu) Enoxaparin Notes: (Same No Longer as: Lovenox) Active 2014 [facility] Albuterol 0.833 Notes: (Same No Longer H MG/ML / as: Duoneb) Active 2014 [facility] Ipratropium [place] 0.167 MG/ML Inhalant Solution Ondansetron Notes: (Same No Longer as: Zofran) Active 2014 [facility] Acetaminophen Notes: Do not No Longer exceed 4 Active 2014 [facility] gm/day. (Same as: Tylenol) Guaifenesin Notes: (Same No Longer as: Active 2014 [facility] Robitussin) Lasix Notes: (Same Inactive as: Lasix) 2014 [facility] Zithromax Notes: Same Inactive as: Zithromax 2014 [facility] Rocephin Notes: (Same Inactive As: Rocephin). 2014 [facility] Use with 100ml NS mini-bag PLUS and infuse over 30 min Labetalol Notes: (Same Inactive as: Normodyne, 2014 [facility] Trandate) Push over 2 minutes Give bolus [...] SEE RT Inactive Inhalant Solution DOCUMENTATION 2014 [facility] Saline Flush 0.9% Notes: (Same No Longer as: BD Active 2014 [facility] Posiflush) Sodium Chloride 1,000 mL, 1000 Inactive 0.154 MEQ/ML ml/hr, Infuse 2014 [place] Injectable Over: 1 hr, Solution Route: IV, 1,000, Drug form: INJ, ONCE, Priority: STAT, Dosing Weight 113.636 kg, Start date: 08/14/14 7:28:00, Duration: 1 doses or times, Stop date: 08/14/14 7:28:00 Ibuprofen Notes: (Same Inactive as: Motrin) 2014 [facility] "Do Not Crush" Give with food. Acetaminophen Notes: Do not Inactive exceed 4 2014 [facility] gm/day. (Same as: Tylenol) Acetaminophen 325 1 [...] PO, Active [place] 800 MG / [id number], # 14 2014 [facility] Trimethoprim 160 tab, 0 Center MG Oral Tablet Refill(s) Docusate Sodium 50 1 tab, PO, Active [place] MG / sennosides, BID, # 30 tab, 2014 [facility] 8.6 MG Oral 0 Refill(s) Cent [...] Med ical MG Oral Tablet tab, 0 [place] [Augmentin 875-mg] Refill(s) carvedilol Notes: Give No Longer [place] with food. Active 2013 [facility] (Same As: Center Coreg) Docusate Sodium 50 Notes: (Same No Longer [place] MG / sennosides, as Senokot-S) Active 2013 [facility] 8.6 MG Oral Equiv. to Center Tablet Lorie-Colace. Fluzone Notes: (Same No Longer [place] Quadrivalent as: Fluzone Active 2013 [facility] [id number] Quadrivalent) [place] Lisinopril Notes: (Same No Longer [place] as as: Prinivil, Active 2013 [facility] Zestril) [place] Hydralazine Notes: (Same No Longer [place] Hydrochloride 25 as: Active 2013 [facility] MG Oral Tablet Apresoline) Cente r May interfere w/enteral feedings Take With Food. tramadol Notes: Not to No Longer [place] hydrochloride 50 exceed Active 2013 [facility] MG Oral Tablet 400mg/day. Center (Same As: [facility]) carvedilol Notes: Give No Longer [place] with food. Active 2013 [facility] (Same As: Center Coreg) Amoxicillin 875 MG Notes: With No Longer [place] / Clavulanate 125 food. (Same Active 2013 Nm dical MG Oral Tablet as: Augmentin [address] ter [Augmentin 875-mg] 875) Bactrim DS Notes: One DS No Longer [place] tablet = Active 2013 [facility] trimethoprim [place] 160mg + sulfamethoxazo le 800 mg Dose based on trimethoprim component On empty stomach with a glass of water. 1 hr before meals (Same As: Bactrim DS, Septra DS) heparin, porcine Notes: porcine No Longer [place] heparin Active 2013 [facility] Center Hydrochlorothiazid Notes: (Same No Longer [place] e as: Active 2013 Medical Hydrodiuril) Center With food. Lisinopril Notes: (Same [place]active [place] as: Prinivil, 2013 Medical Zestril) Center Coreg Notes: Give Inactive [place] with food. 2013 Medical (Same As: Center Coreg) Coreg Notes: Give Inactive [facility] with food. 2013 Medical (Same As: Center Coreg) Lisinopril Notes: (Same Inactive [place] as: Prinivil, 2013 Medical Zestril) [place] vancomycin + 2001 mg: Inactive [place] Sodium Chloride infuse over 2013 [facility] scooby 0.9% IV 500 mL 2.5 hours Center Vancomycin FOR IV SET ONLY 24 HR Notes: Apply Inactive [place] Nitroglycerin 0.2 only once for 2014 Medical MG/HR Transdermal up to 12 hours Center Patch in a 24 hour period (12 hours on and 12 hours off.) (Same as:Kaylin James,Nicoláse rm Nitro) For topical use only. "Remove old patch before application of new patch" atorvastatin Notes: (Same Inactive [place] as: Lipitor) 2013 [facility] Metoprolol Notes: (Same No Longer [place] as: Lopressor) Active 2013 Medical Push over 2 Center minutes aspirin Notes: Take No Longer [place] with food. Active 2013 Medical [place] Labetalol 20 mg, Route: Inactive [place] [...] minutes Labetalol 10 mg, 2 mL, Inactive [place] Route: IVP, 2013 Medical Drug form: Center [...] give IV push. 2014 Medical (Same as: [place] Phenergan) Ondansetron Notes: (Same Inactive [place] as: Zofran) 2014 Medical Center Lisinopril Notes: (Same No Longer [place] as: Prinivil, Active 2013 Medical Zestril) Center vancomycin + 2001 mg: No Longer [place] Sodium Chloride infuse over Active 2013 Medi scooby 0.9% IV 250 mL 2.5 hours Center Vancomycin FOR IV SET ONLY vancomycin + 2001 mg: Inactive [place] Sodium Chloride infuse over 2013 Medi scooby 0.9% IV 500 mL 2.5 hours Center Vancomycin FOR IV SET ONLY aspirin Notes: Do not No Longer [facility] crush or chew. Active 2013 Medical (Same As: [place] Ecotrin) carvedilol Notes: Give No Longer [place] with food. Active 2014 Medical (Same As: [place] Coreg) Influenza Virus Notes: (Same Inactive [place] Vaccine, as: Fluzone 2013 Medical Inactivated Quadrivalent) [place] N-[id number]-72-2006 (H3N2)-like virus (L-[id number] 7 [facility] X-175C) strain / Influenza Virus Vaccine, Inactivated L-Shizgawk-01-2007 , IVR-148 (H1N1) strain / Influenza Virus Vaccine, Inactivated, W-[id number]-l ik Docusate Notes: (Same No Longer [facility] as: Colace) Active 2014 Medical Center Ceftriaxone Notes: (Same [place]er [place] As: Rocephin). Active 2013 Medical Use with Center 100ml NS mini-bag PLUS and infuse over 30 min Zofran Notes: (Same No Longer [facility] as: Zofran) Active 2013 Medical Center Vancomycin 2001 mg: Inactive [facility] infuse over 2014 Medical 2.5 hours Center Potassium Chloride Notes: (Same Inactive [facility] [place] as: KCL) 2014 Medical Infuse no Center faster than 10 mEq/hr if given peripherally. Insulin, Aspart, Notes: Roll in No Longer [place] Human palms of hands Active 2013 Medical gently; Do Center not shake vigorously. (Same as: NovoLOG) "single patient use only" Stable for 28 days at room temperature. Expires in days from Date Dextrose 50% 25 gm, 50 mL, No Longer [place] Syringe Route: IVP, Active 2013 Medical Drug Form: Center INJ, Dosing Weight 97.727, kg, PRN, PRN Blood Glucose Results, Start date: 05/09/14 6:36:00, Duration: 30 day, Stop date: 06/08/14 5:35:00 Glucagon 1 mg, Route: No Longer [place] IM, Drug form: Active 2013 Medical PDR/INJ, PRN, Center Dosing Weight 97.727, kg, PRN Blood Glucose Results, Start date: 05/09/14 6:36:00, Duration: 30 day, Stop date: 06/08/14 5:35:00 Saline Flush 0.9% Notes: (Same No Longer [place] as: BD Active 2013 Medical Posiflush) Center Ondansetron Notes: (Same [place] as: Zofran) Active 2013 Medical Center Acetaminophen Notes: Do not No Longer [place] exceed 4 Active 2013 Medical gm/day. (Same Center as: Tylenol) Acetaminophen 325 Notes: (Same No Longer [place] MG / Hydrocodone as: [place] Active 2013 Medic al Bitartrate 5 MG 325/5) Do not C enter Oral Tablet exceed 4gm/day of acetaminophen. Morphine Notes: (Same No Longer [place] as:MORPhine Active 2013 Medical Sulfate) Center Acetaminophen 325 Notes: Do not No Longer [place] MG / Hydrocodone exceed 4gm/day Active 2013 Medical Bitartrate 10 MG of Center Oral Tablet acetaminophen. (Same as: [place] 325/10) Metformin 500 mg = 1 Active [place] hydrochloride 500 tab, PO, BID, 2014 Medical MG Oral Tablet # 30 tab, 0 Cente r Refill(s) Dilaudid 1 mg, Route: Inactive [place] IVP, ONCE, 2013 Medical Dosing Weight Center 113.636, kg, Priority: STAT, Start date: 05/09/14 3:14:00, Stop date: 05/09/14 3:14:00 Ceftriaxone Notes: (Same Inactive [place] As: Rocephin). 2013 Medical Use with Center 100ml NS mini-bag PLUS and infuse over 30 min Doxycycline Notes: NO Inactive [place] MILK/ANTACIDS/ 2013 Medical IRON Take 1 Center hour before or 2 hours after dairy products NS 1,000 mL Special Inactive Instructions: 2013 [facility] Bolus Dose Ondansetron Notes: (Same No Longer as: Zofran) Active 2013 [facility] Dilaudid Notes: Same No Longer as: Dilaudid Active 2013 [facility] Vancomycin 2001 mg: No Longer infuse over Active 2013 [facility] 2.5 hours Saline Flush 0.9% Notes: (Same No Longer as: BD Active 2013 [facility] Posiflush) Lisinopril Notes: (Same No Longer as: Prinivil, Active 2013 [facility] Zestril) Coreg Notes: Give Inactive with food. [...] (Same No Longer as: Zocor) Active 2013 [facility] Coreg Notes: Give No Longer with food. Active 2013 [facility] (Same As: Coreg) Hydrochlorothiazid 1 tab, PO, No Longer e 12.5 MG / Bedtime, 0 Active 2013 [facility] Lisinopril 20 MG Refill(s) Oral Tablet carvedilol 12.5 MG 12.5 mg = 1 No Longer Oral Tablet tab, PO, BID, Active 2013 [facility] ast [Coreg] # 60 tab, 0 Refill(s) Metformin 500 mg, PO, No Longer [place], 0 Active 2013 [facility] Refill(s) Simvastatin 40 mg = 1 tab, Active PO, Bedtime, # 2013 [facility] 30 tab, 0 Refill(s) NS 1,000 mL 1,000 mL, No Longer Rate: 40 Active 2013 [facility] ml/hr, Infuse over: 25 hr, Route: IV, Dosing Weight 92.045 kg, Total Volume: 1,000, Start date: 02/07/14 22:24:00, Duration: 30 day, Stop date: 03/09/14 22:23:00 Morphine 2 mg, Route: Inactive IVP, ONCE, 2013 [facility] Dosing Weight 96.364, kg, Start date: 02/07/14 13:00:00, Stop date: 02/07/14 13:00:00 Acetaminophen Notes: Max No Longer acetaminophen Active 2013 [facility] = 4000mg/day (4 gm/day). (Same as: Tylenol) Ondansetron Notes: (Same No Longer as: Zofran) Active 2013 [facility] Docusate Notes: (Same No Longer as: Colace) Active 2013 [facility] (Do Not Crush) Omnipaque 240 50 mL, Route: Inactive PO, Dosing 2013 [facility] Weight 96.364, kg, ONCE, Start date: 02/07/14 9:41:00, Stop date: 02/07/14 9:41:00 Sodium Chloride 1,000 mL, 999 Inactive H 0.154 MEQ/ML ml/hr, Infuse 2013 [place] Injectable Over: 1 hr, Solution Route: IV, ONCE, Priority: STAT, Dosing Weight 96.364 kg, Start date: 02/07/14 9:27:00, Duration: 1 doses or times, Stop date: 02/07/14 9:27:00 Sodium Chloride 500 mL, 500 Inactive 0.154 MEQ/ML ml/hr, Infuse 2013 [place] Injectable Over: 1 hr, Solution Route: IV, ONCE, Priority: STAT, Dosing Weight 96.364 kg, Start date: 02/07/14 7:37:00, Duration: 1 doses or times, Stop date: 02/07/14 7:37:00 Morphine 6 mg, Route: Inactive IVP, Drug 2013 [facility] form: INJ, ONCE, Dosing Weight 96.364, kg, Priority: STAT, Start date: 02/07/14 7:33:00, Stop date: 02/07/14 7:33:00 Zofran 8 mg, Route: Inactive IVP, Drug 2013 [facility] form: INJ, ONCE, Dosing Weight 96.364, kg, Priority: STAT, Start date: 02/07/14 7:33:00, Stop date: 02/07/14 7:33:00 Azithromycin 500 500 mg = 1 Active MG Oral Tablet tab, PO, 2013 [facility] t [Zithromax] Daily, # 7 tab, 0 Refill(s) benzonatate 100 MG 100 mg = 1 Active Oral Capsule cap, PO, TID, 2013 [place] [Tessalon Perles] # 21 cap, 0 Refill(s) carvedilol 12.5 mg 12.5 mg = 1 Active [place] H oral tablet tab, PO, Q12H, 2012 [place] # 60 tab, 0 Refill(s) Tessalon 200 mg 200 mg = 1 Active [place] oral capsule cap, PO, TID, 2012 [place] # 30 cap, 0 Refill(s) albuterol 90 1 puff, Active [place] mcg/inh inhalation INHALATION, 2012 [place] [facility] aerosol QID, wheezing, # 1 ea, 0 Refill(s) aspirin 81 mg 81 mg = 1 tab, Active [place] tablet, enteric PO, Daily, # 2012 [place] coated 30 tab, 0 Refill(s) cloNIDine 0.1 mg 0.1 mg = 1 Active [place] oral tablet tab, PO, TID, 2012 ast Elevated BP | sbp >/= 160, # 60 tab, 0 Refill(s) simvastatin 20 mg 40 mg = 2 tab, Active [place] oral tablet PO, Bedtime, # 2013 [place] 30 tab, 0 Refill(s) lisinopril 20 mg 20 mg = 1 tab, Active [place] oral tablet PO, Q12H, HOLD 2012 [place] IF SBP HOLD IF SBP </= 110 furosemide 40 mg 40 mg = 1 tab, Active [place] oral tablet PO, Daily, # [address] [facility] [address] 30 tab, 0 Refill(s) Levaquin 750 mg 750 mg = 1 Active Ajelabi oral tablet tab, PO, Q24H, 2012 [place] # 7 tab, 0 Refill(s) Lasix 40 mg, 1 tab, Inactive [place] Route: PO, 2012 [facility] Drug form: TAB, Daily, Dosing Weight 93.3, kg, Start date: 07/21/13 9:00:00, Duration: 30 day, Stop date: 08/19/13 9:00:00(Same as: Lasix) May cause GI upset. Give with food or milk. hydrALAZINE 10 mg, 0.5 mL, No Longer [place] Route: IVP, Active 2012 [facility] Drug form: INJ, Q6H, Dosing Weight 97.727, kg, PRN Hypertension, Start date: 07/20/13 14:02:00, Duration: 30 day, Stop date: 08/19/13 14:01:00, SBP>/=150 OR DBP>/=90(Same as: Apresoline) Push over 5 minutes aspirin 325 mg 325 mg, 1 tab, No Longer [place] tablet, enteric Route: PO, Active 2012 [place] coated Drug form: ECTAB, Daily, Dosing Weight 93.3, kg, Start date: 07/20/13 9:00:00, Duration: 30 day, Stop date: 08/18/13 9:00:00(Do Not Crush) Do not crush or chew. Zocor 40 mg, 2 tab, No Longer [place] Route: PO, Active 2012 [facility] Drug form: TAB, Bedtime, Dosing Weight 93.3, kg, Start date: 07/19/13 21:00:00, Duration: 30 day, Stop date: 08/17/13 21:00:00(Same as: Zocor) lisinopril 20 mg, 1 tab, No Longer [place] Route: PO, 2012 [facility] Drug form: TAB, Q12H, Dosing Weight 97.727, kg, Priority: STAT, Start date: 07/19/13 20:50:00, Duration: 30 day, Stop date: 08/18/13 9:00:00(Same as: Prinivil, Zestril) magnesium sulfate 2 gm, 50 mL, No Longer [place] Route: IVPB, 2012 [facility] Drug form: INJ, PRN, Dosing Weight 93.3, [...] mL, No Longer [place] Route: IVPB, 2012 [facility] Drug form: INJ, PRN, Dosing Weight 93.3, [...] No Longer [place] Route: PO, Active 2012 [facility] Drug form: ERTAB, PRN, Dosing Weight 93.3, kg, PRN Abnormal Lab Result, Start date: 07/19/13 10:51:00, Duration: 30 day, Stop date: 08/18/13 10:50:00, FOR ICU USE ONLYFOR ICU USE ONLY(Same as: K-Dur 20) "Do Not Crush" With food and full glass of water Lasix 40 mg, 4 mL, No Longer [place] Route: IVP, Active 2012 [facility] Drug form: INJ, Daily, Dosing Weight 97.727, kg, Priority: Routine, Start date: 07/19/13 9:00:00, Duration: 30 day, Stop date: 08/17/13 9:00:00(Same as: Lasix) folic acid 1 mg, 1 tab, No Longer [place] Route: PO, Active 2012 [facility] Drug form: TAB, Daily, Dosing Weight 97.727, kg, Start date: 07/19/13 9:00:00, Duration: 30 day, Stop date: 08/17/13 9:00:00(Same as: Folvite) multivitamin 1 tab, Route: No Longer [place] PO, Drug Form: Active 2012 [facility] TAB, Dosing Weight 97.727, kg, Daily, Start date: 07/19/13 9:00:00, Duration: 30 day, Stop date: 08/17/13 9:00:00 thiamine 100 mg, 1 tab, No Longer [place] Route: PO, Active 2012 [facility] Drug form: TAB, Daily, Dosing Weight 97.727, [...] [place] minerals PO, Drug Form: Active 2012 [place] t TAB, Daily, Start date: 07/19/13 9:00:00, Duration: 30 day, Stop date: 08/17/13 9:00:00Give with food. (Same As: Stress 600 with Zinc) vancomycin 1.25 gm, 250 No Longer Ajelabi mL, Route: Active 2012 [facility] IVPB, Drug form: INJ, [id number], Start date: 07/19/13 6:00:00, Stop date: 08/18/13 2:00:00Same as: Vancocin-NS (premixed) [place] 10/325 oral 1 tab, Route: No Longer [place] tablet PO, Drug Form: Active 2012 [facility] TAB, Dosing Weight 97.727, kg, Q6H, Start date: 07/19/13 0:00:00, Duration: 30 day, Stop date: 08/17/13 18:00:00Do not exceed 4gm/day of acetaminophen. (Same as: [place] 325/10) albuterol-ipratrop 3 mL, Route: No Longer [place] ium 2.5-0.5 mg NEB, Drug Active 2012 [facility] [address] inhalation Form: SOLN, solution Dosing Weight 97.727, kg, RQ4H, Start date: 07/18/13 23:00:00, Duration: 30 day, Stop date: 08/17/13 19:00:00(Same as: Duoneb) Tessalon Perles 200 mg, 2 cap, No Longer [place] Route: PO, Active 2012 [facility] Drug form: CAP, Q8H-06, Dosing Weight 97.727, kg, Start date: 07/18/13 22:00:00, Duration: 30 day, Stop date: 08/17/13 14:00:00(Same As: Tessalon Perles) "Do Not Crush" lisinopril 10 mg, 1 tab, No Longer [place] Route: PO, Active 2012 [facility] Drug form: TAB, Q12H, Dosing Weight 97.727, kg, Start date: 07/18/13 21:00:00, Duration: 30 day, Stop date: 08/17/13 9:00:00(Same as: Prinivil, Zestril) Coreg 12.5 mg, 1 No Longer Lydia tab, Route: Active 2012 [facility] PO, Drug form: TAB, Q12H, Dosing Weight 97.727, kg, Start date: 07/18/13 21:00:00, Stop date: 08/17/13 9:00:00Give with food. (Same As: Coreg) Vancomycin 1 gm, Route: Inactive [facility] Dosing IV, Dosing 2012 [place] Weight 97.727, kg, Q12H, Start date: 07/18/13 21:00:00, Duration: 30 day, Stop date: 08/17/13 9:00:00 Nicoderm C-Q 21 mg, 1 No Longer [place] patch, Route: Active 2012 [facility] TOP, Drug form: ERFILM, Daily, Dosing Weight 97.727, kg, Start date: 07/18/13 20:25:00, Duration: 30 day, Stop date: 08/17/13 9:00:00(Same as: Habitrol) "Remove old patch before application of new patch" Ativan 1 mg, 0.5 mL, No Longer [place] Route: IVP, Active 2012 [facility] Drug form: INJ, Q2H, Dosing Weight 97.727, kg, PRN Anxiety, Start date: 07/18/13 20:18:00, Duration: 30 day, Stop date: 08/17/13 20:17:00, SIGNS OF WITHDRAWAL, AGITATION, Anxiety(Same as: Ativan) clonidine 0.1 mg 0.1 mg, 1 tab, No Longer [place] oral tablet Route: PO, Active 2012 [facility] Drug form: TAB, TID, Dosing Weight 97.727, kg, PRN Elevated BP, Start date: 07/18/13 20:17:00, Duration: 30 day, Stop date: 08/17/13 20:16:00, sbp >/= 180(Same As: Catapres) vancomycin 1.5 gm, 250 Inactive Ajelabi mL, Route: 2012 IVPB, Drug form: INJ, ONCE, Start date: 07/18/13 20:00:00, Stop date: 07/18/13 20:00:00Same as: Vancocin-NS (premixed) dextromethorphan-g 10 mL, Route: No Longer [place] 07/19 uaifenesin 10 PO, Drug Form: Active 2012 [facility] mg-100 mg/5 mL LIQ, Dosing oral liquid Weight 97.727, kg, Q4H, PRN Cough, Start date: 07/18/13 19:28:00, Duration: 30 day, Stop date: 08/17/13 19:27:00(dextr omethorphan-gu aifenesin 10-100/5 ml LIQ) (Same as: Robitussin-DM) Colace 100 mg oral 100 mg, 1 cap, No Longer [place] 07/02 capsule Route: PO, Active 2012 [facility] Drug form: CAP, BID, Dosing Weight 97.727, kg, PRN Constipation, Start date: 07/18/13:28:00, Duration: 30 day, Stop date: 08/17/1327:00(Same as: Colace) (Do Not Crush) Gas-X Ultra 160 mg, 2 tab, No Longer [place] Softgels Route: PO, Active 2012 [facility] Drug form: CHEWTAB, Q4H, Dosing Weight 97.727, kg, PRN Gas, Start date: 07/18/13 19:28:00, Duration: 30 day, Stop date: 08/17/13 19:27:00(Same as: Mylicon) GI cocktail 30 ml, Route: No Longer [place] PO, Drug Form: Active 2012 [facility] SUSP, Dosing Weight 97.727, kg, Q4H, PRN GI Upset, Routine, Start date: 07/18/13 19:28:00, Duration: 30 day, Stop date: 08/17/13:27:00, DYSPEPSIAG.I. Cocktail = antacid with simethicone 22.5 mL - lidocaine viscous 7.5 mL morphine Sulfate 2 mg, 1 mL, No Longer [place] H Route: IVP, Active 2012 [facility] Drug form: INJ, Q6H, Dosing Weight 97.727, kg, PRN as needed for pain, Start date: 07/18/13:00, Duration: 30 day, Stop date: 08/17/13:(Same as:MORPhine Sulfate) Tylenol 650 mg, Route: Inactive [place] PO, Drug form: 2012 [facility] TAB, Q6H, Dosing Weight 97.727, kg, PRN Pain, Start date: 07/18/1328:00, Duration: 30 day, Stop date: 08/17/1300 hydrALAZINE 10 mg, 0.5 mL, No Longer [place] Route: IVP, Active 2012 [facility] Drug form: INJ, Q6H, Dosing Weight 97.727, kg, PRN Elevated BP, Start date: 07/18/13:, Duration: 30 day, Stop date: 08/17/13, SBP>/=160 OR DBP>/=90(Same as: Apresoline) Push over 5 minutes lactulose 20 gm, 30 ml, No Longer [place] Route: PO, Active 2012 [facility] Drug Form: SYRP, Dosing Weight 97.727, kg, TID, PRN Constipation, Start date: 07/18/13:00, Duration: 30 day, Stop date: 08/17/13(Same as:Chronulac) Zofran 4 mg, 2 mL, No Longer [place] Route: IV, Active 2012 [facility] Drug form: INJ, Q4H, Dosing Weight 97.727, kg, PRN Nausea, Start date: 07/18/13:00, Duration: 30 day, Stop date: 08/17/13(Same as: Zofran) acetaminophen 650 mg, 2 tab, No Longer [place] 12/ H Route: PO, Active 2012 [facility] Drug form: TAB, Q4H, Dosing Weight 97.727, kg, PRN Pain Score 1-3, For fever > 100.4. Not to exceed 4 grams in 24 hours, Start date: 07/18/13:28:00, Duration: 30 day, Stop date: 08/17/13:00Do not exceed 4 gm/day. (Same as: Tylenol) tuberculin 5 unit, 0.1 Inactive [place] purified protein mL, Route: 2012 [place] [facility] derivative 5 INTRADERM, tuberculin ONCE, Dosing units/0.1 mL Weight 97.727, intradermal kg, Start solution date: 07/18/13 19:22:00, Stop date: 07/18/13 19:22:00 levofloxacin 750 mg, 150 No Longer [facility] 07/19[facility] mL, Route: IV, Active 2012 [facility] Drug form: SOLN, [id number], Dosing Weight 97.727, kg, Start date: 07/18/13 18:00:00, Duration: 30 day, Stop date: 08/16/13 18:00:00(Same as:Levaquin) Lasix 40 mg, 4 mL, Inactive [facility] 07/18[facility] Route: IV, 2012 [facility] Drug form: INJ, ONCE, Dosing Weight 97.727, kg, Start date: 07/18/13 17:20:00, Stop date: 07/18/13 17:20:00(Same as: Lasix) tuberculin 5 unit, 0.1 Inactive [facility] 07/18[facility] purified protein mL, Route: 2012 [place] derivative INTRADERM, Drug form: INJ, ONCE, Dosing Weight 97.727, kg, Start date: 07/18/13 17:17:00, Stop date: 07/18/13 17:17:00LOT#: EXP: (Same As: Aplisol, Tubersol) Lasix 40 mg, Route: Inactive [facility] 07/18[facility] IVP, Drug 2012 [facility] form: INJ, ONCE, Dosing Weight 97.727, kg, Priority: STAT, Start date: 07/18/13 17:12:00, Stop date: 07/18/13 17:12:00 hydrALAZINE 20 mg, 1 mL, Inactive Fa Route: IVP, 2012 [facility] Drug form: INJ, ONCE, Dosing Weight 97.727, kg, Priority: STAT, Start date: 07/18/13 14:40:00, Stop date: 07/18/13 14:40:00(Same as: Apresoline) Push over 5 minutes Tylenol 650 mg, Route: Inactive [facility] 07/18[facility] PO, Drug form: 2012 [facility] TAB, ONCE, Dosing Weight 97.727, kg, Priority: STAT, Start date: 07/18/13 14:12:00, Stop date: 07/18/13 14:12:00 ketorolac 30 mg, Route: Inactive [facility] 07/18[facility] IVP, Drug 2012 [facility] form: INJ, ONCE, Dosing Weight 97.727, kg, Priority: STAT, Start date: 07/18/13 14:12:00, Stop date: 07/18/13 14:12:00 albuterol-ipratrop 3 mL, Route: Inactive [facility] 07/18[facility] ium 2.5-0.5 mg NEB, Drug 2012 [facility] inhalation Form: SOLN, solution Dosing Weight 97.727, kg, ONCE, STAT, Start date: 07/18/13 13:00:00, Stop date: 07/18/13 13:00:00 Saline Flush 0.9% 5 mL, Route: No Longer [facility] 07/18[facility] IVP, Drug Active 2012 [facility] Form: INJ, Dosing Weight 97.727, kg, PRN, PRN Line Flush, Start date: 07/18/13 13:00:00, Duration: 1 doses or times, Stop date: Limited # of times(Same as: BD Posiflush) Allergies, Adverse Reactions, Alerts No Known Medication Allergies Immunizations Immunization Date Site Status Last Comments Source Given Updated influenza virus Left completed Hunter Farfan her vaccine, 4 deltoid Neuro, inactivated [facility], [facility] diphtheria/pertu Left completed Eric Vaca [facility] ssis, 4 Deltoid Neuro, acel/tetanus [facility], [facility] influenza virus Left completed Jacek Farfan her vaccine, 3 Deltoid Neuro,[facility] inactivated [facility], [facility] influenza virus completed Jacek [facility] vaccine, 3 inactivated tuberculin completed Jack Cortes purified protein 3 Comment: Félix ro,MH derivative<sup>1 given in Kamar as Medical </sup> left forearm Center, [facility], [facility], [place],[facility] tuberculin completed Jack 1Result [facility] ast purified protein 3 Comment: derivative<sup>1 given in </sup> left forearm Results Order Name Results Value Reference Date Interpretation Comments [place] rce Range CHEM PANEL Phosphorus 3.7 2.5 - 4.5 04/19 [facility] CHEM PANEL Magnesium 2.1 1.8 - 2.4 04/19 MH Lvl /2016 [facility] ELECTROLYT AGAP 11.5 10.0 - 04/19 [facility] ES 20.0 /2016 [facility] ELECTROLYT Sodium Lvl 140 135 - 145 04/19 MH ES [facility] ELECTROLYT Glucose Lvl 92 70 - 99 04/19 ES [facility] ELECTROLYT BUN 12 7 - 22 04/19 MH ES [facility] ELECTROLYT Creatinine 0.78 0.50 - 04/19 MH ES Lvl 1.40 /2016 [facility] ELECTROLYT eGFR 106 04/19 Result Comment: The [facility] eGFR is calculated using the CKD-EPI formula. [...] 8.4 8.5 - 10.5 04/19 MH ES [facility] ELECTROLYT CO2 24 24 - 32 04/19 ES [facility] ELECTROLYT Chloride Lvl 108 95 - 109 04/19 ES [facility] ELECTROLYT Potassium 3.5 3.5 - 5.1 04/19 ES Lvl [facility] HEMATOLOGY INR 1.06 0.85 - 04/19 MH 1.17 /2016 [facility] HEMATOLOGY PT 14.0 12.0 - 04/19 MH 14.7 /2016 [facility] HEMATOLOGY PTT 31.1 22.9 - 04/19 [facility] 35.8 /2016 [facility] [place] HEMATOLOGY Platelet 217 133 - 450 04/19 /2016 [facility] [place] HEMATOLOGY RBC 4.55 4.70 - 04/19 MH 6.10 /2016 [facility] [place] HEMATOLOGY MCV 84.4 80.0 - 04/19 MH 94.0 /2016 [facility] [place] HEMATOLOGY RDW 14.6 11.5 - 04/19 MH 14.5 /2016 [facility] [place] HEMATOLOGY MCH 28.0 27.0 - 04/19 MH 31.0 /2016 [facility] [place] HEMATOLOGY MCHC 33.2 32.0 - 04/19 MH 36.0 /2016 [facility] [place] HEMATOLOGY WBC 5.9 3.7 - 10.4 04/19 /2016 [facility] [place] HEMATOLOGY Hct 38.4 42.0 - 04/19 MH 54.0 /2016 [facility] [place] HEMATOLOGY Hgb 12.8 14.0 - 04/19 MH 18.0 /2016 [facility] [place] HEMATOLOGY MPV 8.2 7.4 - 10.4 04/19 [facility] [place] ANEMIA Vitamin B12 511 254 - 1320 04/18 STUDY Lvl /2016 [facility] [place] ANEMIA Folate Lvl 18.6 >=3.0 04/18 STUDY ng/mL /2016 [facility] [place] LIPIDS VLDL 13 04/18 [facility] [place] LIPIDS LDL 57 <=99 mg/dL 04/18 MH (Calculated) [facility] [place] LIPIDS CHD Risk 3.80 4.00 - 04/18 7.30 /2016 [facility] [place] LIPIDS Chol 95 <=199 04/18 MH mg/dL /2016 [facility] [place] LIPIDS HDL 25 >=61 mg/dL 04/18 [facility] [place] LIPIDS Trig 63 <=149 04/18 mg/dL /2016 [facility] [place] SPECIAL Hgb A1C 6.2 <=5.6 % 04/18 CHEMISTRY /2017 [facility] [place] CARDIAC Troponin-I <0.02 0.00 - 04/18 ENZYMES 0.40 /2016 [facility] [place] CARDIAC Total CK 226 12 - 191 04/18 ENZYMES /2016 [facility] [place] CARDIAC CK MB 1.2 0.5 - 3.6 04/18 ENZYMES /2016 [facility] [place] CARDIAC CK MB Index 0.5 0.0 - 2.5 04/18 ENZYMES /2016 [facility] [place] CHEM PANEL eGFR 113 04/18 Result Comment: The [facility] [place] eGFR is calculated using the CKD-EPI formula. [...] AGAP 10.0 10.0 - 04/18 MH 20.0 /2016 [facility] CHEM PANEL BUN 7 7 - 22 04/18 [facility] CHEM PANEL Glucose Lvl 92 70 - 99 04/18 [facility] CHEM PANEL Sodium Lvl 140 135 - 145 04/18 [facility] CHEM PANEL Potassium 4.0 3.5 - 5.1 04/18 MH Lvl [facility] CHEM PANEL Creatinine 0.67 0.50 - 04/18 Lvl 1.40 /2016 [facility] [place] HEMATOLOGY PTT 31.8 22.9 - 04/18 MH 35.8 /2017 [facility] [place] HEMATOLOGY MPV 8.6 7.4 - 10.4 04/18 /2016 [facility] [place] HEMATOLOGY RDW 14.8 11.5 - 04/18 MH 14. /2016 [facility] [place] HEMATOLOGY Hct 39.8 42.0 - 04/18 MH 54.0 /2017 [facility] [place] HEMATOLOGY MCHC 33.7 32.0 - 04/18 MH 36.0 /2017 [facility] [place] HEMATOLOGY MCV 83.2 80.0 - 04/18 MH 94.0 /2016 [facility] [place] HEMATOLOGY MCH 28.0 27.0 - 04/18 MH 31.0 /2016 [facility] [place] HEMATOLOGY Hgb 13.4 14.0 - 04/18 MH 18.0 /2016 [facility] [place] HEMATOLOGY WBC 6.6 3.7 - 10.4 04/18 /2016 [facility] [place] HEMATOLOGY RBC 4.79 4.70 - 04/18 MH 6.10 /2016 [facility] [place] HEMATOLOGY Platelet 228 133 - 450 04/18 /2016 [facility] [place] HEMATOLOGY INR 1.00 0.85 - 04/18 MH 1. [place] HEMATOLOGY PT 13.4 12.0 - 04/18 MH 14.7 /2016 [facility] [place] HEMATOLOGY Monocytes # 0.7 0.0 - 0.8 04/18 /2016 [facility] HEMATOLOGY Lymphocytes 1.3 1.0 - 5.5 04/18 MH # /2016 [facility] HEMATOLOGY Eosinophils 0.2 0.0 - 0.5 04/18 MH # /2016 [facility] [place] HEMATOLOGY Eosinophils 3.0 0.0 - 4.0 04/18 /2016 [facility] HEMATOLOGY Monocytes 11.3 2.0 - 12.0 04/18 /2016 [facility] [place] HEMATOLOGY Segs-Bands # 4.3 1.5 - 8.1 04/18 /2016 [facility] HEMATOLOGY Basophils 0.5 0.0 - 1.0 04/18 /2016 [facility] HEMATOLOGY Segs 65.4 45.0 - 04/18 MH 75.0 /2016 [facility] HEMATOLOGY Lymphocytes 19.8 20.0 - 04/18 MH 40.0 /2016 [facility] [place] TOXICOLOGY Etoh (%) <0.003 % 04/18 [facility] [place] TOXICOLOGY Ethanol Lvl <3.0 mg/dL 04/18 [facility] URINE AND UA Nitrite Negative Negative 04/18 STOOL (04/18/17 4:20 PM) /2016 [facility] URINE AND UA Glucose Negative Negative 04/18 STOOL mg/dL mg/dL [facility] [place] URINE AND UA Ketones Negative Negative 04/18 STOOL mg/dL mg/dL [facility] URINE AND UA Bili Negative Negative 04/18 STOOL *NA* /2016 [facility] (04/18/17 4:20 PM) URINE AND UA Blood Negative Negative 04/18 [facility] (04/18/17 4:20 PM) [facility] URINE AND UA Sq Epi None Seen 04/18 STOOL [facility] URINE AND UA Leuk Est Small Negative 04/18 STOOL *ABN* /2016 [facility] [place] (04/18/17 4:20 PM) URINE AND UA <=1.0 0.1 - 1.0 04/18 STOOL Urobilinogen mg/dL [facility] URINE AND UA Color Light Yellow Yellow 04/18 STOOL *NA* /2016 [facility] [place] (04/18/17 4:20 PM) URINE AND UA Protein Negative Negative 04/18 STOOL mg/dL mg/dL [facility] URINE AND UA pH 6.0 5.0 - 8.0 04/18 STOOL [facility] URINE AND UA Spec Grav 1.009 <=1.030 04/18 STOOL [facility] URINE AND UA Turbidity Clear Clear 04/18 [facility] (04/18/17 4:20 PM) [facility] URINE AND UA Mucus Few /LPF None Seen 04/18 STOOL /LPF /2016 [facility] [place] URINE AND UA RBC 4 0 - 2 04/18 [facility] [place] URINE AND UA WBC 6 0 - 5 04/18 [facility] [place] CARDIAC CK MB 2.0 0.5 - 3.6 08/27 [facility] CARDIAC Troponin-I <0.02 0.00 - 08/27 [facility] ENZYMES 0.40 /2016 [facility] CARDIAC Total CK 320 12 - 191 08/27 ENZYMES [facility] CARDIAC CK MB Index 0.6 0.0 - 2.5 08/27 [facility] CHEM PANEL A/G Ratio 1.2 0.7 - 1.6 08/27 [facility] CHEM PANEL Globulin 3.4 2.7 - 4.2 08/27 [facility] CHEM PANEL B/C Ratio 14 6 - 25 08/27 [facility] CHEM PANEL eGFR 104 08/27 [place] Comment: The [facility] eGFR is calculated using the CKD-EPI formula. [...] Chloride Lvl 105 95 - 109 08/27 [facility] CHEM PANEL Calcium Lvl 8.3 8.5 - 10.5 08/27 [facility] CHEM PANEL CO2 30 24 - 32 08/27 [facility] CHEM PANEL Albumin Lvl 4.0 3.5 - 5.0 08/27 [facility] CHEM PANEL Total 7.4 6.4 - 8.4 08/27 [facility] CHEM PANEL Bili Total 0.4 0.2 - 1.3 08/27 [facility] CHEM PANEL Alk Phos 71 39 - 136 08/27 [facility] CHEM PANEL AGAP 9.7 10.0 - 08/27 20.0 [facility] CHEM PANEL AST 22 0 - 37 08/27 [facility] CHEM PANEL ALT 18 0 - 65 08/27 [facility] CHEM PANEL Glucose Lvl 97 70 - 99 08/27 r [facility] CHEM PANEL BUN 12 7 - 22 08/27 [facility] CHEM PANEL Creatinine 0.84 0.50 - 08/27 [facility] Lvl 1.40 [facility] CHEM PANEL Sodium Lvl 141 135 - 145 08/27 [facility] CHEM PANEL Potassium 3.7 3.5 - 5.1 08/27 r [facility] DRUG UDS Note See Note 08/27 [facility] SCREEN *NA* /2016 [place] (08/27/16 1:52 PM) DRUG U Cocaine Negative Negative 08/27 [facility] SCREEN Scr *NA* [facility] (08/27/16 1:52 PM) DRUG U Amph Scr Negative Negative 08/27 [facility] SCREEN *NA* [facility] (08/27/16 1:52 PM) DRUG U Phencyc Negative Negative 08/27 [facility] SCREEN Scr *NA* [facility] (08/27/16 1:52 PM) DRUG U Opiate Scr Negative Negative 08/27 [facility] SCREEN *NA* [facility] (08/27/16 1:52 PM) DRUG U Cannab Scr Negative Negative 08/27 [facility] SCREEN *NA* [facility] (08/27/16 1:52 PM) DRUG U Benzodia Negative Negative 08/27 [facility] SCREEN Scr *NA* [facility] (08/27/16 1:52 PM) DRUG U Armida Scr Negative Negative 08/27 [facility] SCREEN *NA* [facility] (08/27/16 1:52 PM) HEMATOLOGY WBC 6.3 3.7 - 10.4 08/27 [facility] HEMATOLOGY RBC 4.80 4.70 - 08/27 [facility] 6.10 [facility] HEMATOLOGY Hct 40.2 42.0 - 08/27 [facility] 54.0 [facility] HEMATOLOGY Hgb 13.4 14.0 - 08/27 [facility] 18.0 [facility] HEMATOLOGY MCV 83.9 80.0 - 08/27 94.0 [facility] HEMATOLOGY MCHC 33.4 32.0 - 08/27 [facility] 36.0 [facility] HEMATOLOGY MPV 8.8 7.4 - 10.4 08/27 [facility] HEMATOLOGY Platelet 195 133 - 450 08/27 [facility] HEMATOLOGY RDW 14.8 11.5 - 08/27 [facility] 14.5 [facility] HEMATOLOGY MCH 28.0 27.0 - 08/27 [facility] 31.0 [facility] HEMATOLOGY Segs-Bands # 4.0 1.5 - 8.1 08/27 Gre ater /2016 [facility] HEMATOLOGY Lymphocytes 1.5 1.0 - 5.5 08/[address] # /2016 [facility] HEMATOLOGY Eosinophils 0.2 0.0 - 0.5 08/[address] # /2016 [facility] HEMATOLOGY Monocytes # 0.6 0.0 - 0.8 08/[address] /2016 [facility] HEMATOLOGY Monocytes 9.1 2.0 - 12.0 08/27 Great er /2016 [facility] HEMATOLOGY Basophils 0.5 0.0 - 1.0 08/27 [facility] r /2016 [facility] HEMATOLOGY Eosinophils 2.5 0.0 - 4.0 08/[address] /2016 [facility] HEMATOLOGY Lymphocytes 24.5 20.0 - 08/27 Greate r 40.0 /2016 [facility] HEMATOLOGY Segs 63.4 45.0 - 08/27 Greater 75.0 /2016 [facility] URINE AND UA Leuk Est Negative Negative 08/27 [facility] er STOOL (08/27/16 1:52 PM) /2016 [facility] URINE AND UA 2.0 0.1 - 1.0 08/27 [facility] STOOL Urobilinogen /2016 [facility] URINE AND UA Nitrite Negative Negative 08/27 [facility] STOOL (08/27/16 1:52 PM) [facility] URINE AND UA Bili Negative Negative 08/27 [facility] STOOL *NA* /2016 [facility] (08/27/16 1:52 PM) URINE AND UA Blood Negative Negative 08/27 [facility] STO[facility] (08/27/16 1:52 PM) /2016 [facility] URINE AND UA Ketones Negative Negative 08/27 [facility] r STOOL mg/dL mg/dL [facility] URINE AND UA Glucose Negative Negative 08/27 [facility]reate r STOOL mg/dL mg/dL /2016 [facility] URINE AND UA Spec Grav 1.020 <=1.030 08/27 [facility] r STOOL /2016 [facility] URINE AND UA Color Yellow Yellow 08/27 [facility] STOOL *NA* /2016 [facility] (08/27/16 1:52 PM) URINE AND UA Turbidity Clear Clear 08/27 [facility] r STOOL (08/27/16 1:52 PM) /2016 [facility] URINE AND UA pH 6.5 5.0 - 8.0 08/27 [facility] STOOL [facility] URINE AND UA Protein Negative Negative 08/27 [facility] r STOOL mg/dL mg/dL [facility] URINE AND UA Sq Epi None Seen Few 08/27 [facility] STOOL (08/27/16 1:52 PM) [facility] TOXICOLOGY Etoh (%) <0.003 07/28 [facility] TOXICOLOGY Ethanol Lvl <3 07/28 [facility] r /2015 [facility] DRUG U Opiate Scr Negative Negative 07/28 [facility] r SCREEN *NA* [facility] (07/28/16 4:20 PM) DRUG U Benzodia Negative Negative 07/28 [facility] SCREEN Scr *NA* [facility] (07/28/16 4:20 PM) DRUG U Cocaine Negative Negative 07/28 [facility] SCREEN Scr *NA* [facility] (07/28/16 4:20 PM) DRUG U Cannab Scr Negative Negative 07/28 [facility] r SCREEN *NA* /2015 (07/28/16 4:20 PM) DRUG U Phencyc Negative Negative 07/28 [facility] SCREEN Scr *NA* [facility] (07/28/16 4:20 PM) DRUG U Armida Scr Negative Negative 07/28 [facility] SCREEN *NA* /2015 [facility] (07/28/16 4:20 PM) DRUG U Amph Scr Negative Negative 07/28 [facility] SCREEN *NA* [facility] (07/28/16 4:20 PM) DRUG UDS Note See Note 07/28 [facility] SCREEN *NA* /2015 [facility] (07/28/16 4:20 PM) URINE AND UA Bacteria Occasional None Seen 07/28 Gr eater STOOL /HPF /HPF /2015 [facility] URINE AND UA Amorph Occasional None Seen 07/[address] STOOL [place] /HPF /HPF /2015 [facility] URINE AND UA Mucus None Seen None Seen 07/28 e r STOOL (07/28/16 4:20 PM) [facility] URINE AND UA WBC None Seen None Seen 07/28 [facility] STOOL (07/28/16 4:20 PM) [facility] URINE AND UA Sq Epi Few /LPF Few /LPF 07/28 STOOL /2015 [facility] URINE AND UA RBC 0-2 /HPF 0 - 2 07/28 [facility] STOOL /2015 [facility] URINE AND UA Leuk Est Negative Negative 07/28 Great er STOOL (07/28/16 4:20 PM) /2015 [facility] URINE AND UA Bili Negative Negative 07/28 [facility] STOOL *NA* [facility] (07/28/16 4:20 PM) URINE AND UA Nitrite Negative Negative 07/28 Greate r STOOL (07/28/16 4:20 PM) /2015 [facility] URINE AND UA 1.0 0.1 - 1.0 07/28 [facility] STOOL Urobilinogen /2015 [facility] URINE AND UA Blood Trace Negative 07/28 [facility] STOOL *ABN* /2015 [facility] (07/28/16 4:20 PM) URINE AND UA pH 8.0 5.0 - 8.0 07/28 [facility] STOOL [facility] URINE AND UA Ketones Trace Negative 07/28 [facility] STOOL *ABN* /2015 [facility] (07/28/16 4:20 PM) URINE AND UA Glucose Negative Negative 07/28 [facility]reate r STOOL (07/28/16 4:20 PM) [facility] ts URINE AND UA Protein Negative Negative 07/28 Greate r STOOL (07/28/16 4:20 PM) [facility] ts URINE AND UA Color Yellow Yellow 07/28 [facility] STOOL *NA* /2015 [facility] (07/28/16 4:20 PM) URINE AND UA Spec Grav 1.020 <=1.030 07/28 [facility] r STOOL [facility] URINE AND UA Turbidity Clear Clear 07/28 [facility] r STOOL (07/28/16 4:20 PM) [facility] CARDIAC CK MB Index 0.4 0.0 - 2.5 07/27 [facility] ENZYMES [facility] CARDIAC CK MB 1.0 0.5 - 3.6 07/27 ENZYMES [facility] CARDIAC Troponin-I <0.02 0.00 - 07/27 [facility] ENZYMES 0.40 [facility] CARDIAC Total CK 244 12 - 191 07/27 ENZYMES [facility] CHEM PANEL eGFR 125 07/27 Comment: The [facility] eGFR is calculated using the CKD-EPI formula. [...] Albumin Lvl 3.9 3.5 - 5.0 07/27 [facility] CHEM PANEL Total 8.0 6.4 - 8.4 07/27 Protein [facility] CHEM PANEL BUN 11 7 - 22 07/27 [facility] CHEM PANEL Sodium Lvl 143 135 - 145 07/27 [facility] CHEM PANEL Creatinine 0.76 0.50 - 07/27 [facility] Lvl 1.40 [facility] CHEM PANEL Glucose Lvl 93 70 - 99 07/27 r [facility] CHEM PANEL Bili Total 0.3 0.2 - 1.3 07/27 [facility] CHEM PANEL AST 29 0 - 37 07/27 [facility] CHEM PANEL Alk Phos 91 39 - 136 07/27 [facility] CHEM PANEL AGAP 16.4 10.0 - 07/27 20.0 [facility] CHEM PANEL B/C Ratio 14 6 - 25 07/27 [facility] CHEM PANEL A/G Ratio 1.0 0.7 - 1.6 07/27 r [facility] CHEM PANEL Globulin 4.1 2.7 - 4.2 07/27 [facility] CHEM PANEL Calcium Lvl 8.3 8.5 - 10.5 07/27 ater [facility] CHEM PANEL CO2 27 24 - 32 07/27 [facility] CHEM PANEL ALT 24 0 - 65 07/27 [facility] CHEM PANEL Potassium 3.4 3.5 - 5.1 07/27 e r Lvl [facility] CHEM PANEL Chloride Lvl 103 95 - 109 07/27 ter [facility] HEMATOLOGY Segs 70.6 45.0 - 07/27 Greater 75.0 [facility] HEMATOLOGY Monocytes 7.7 2.0 - 12.0 07/27 [facility] HEMATOLOGY Lymphocytes 19.1 20.0 - 07/27 e r 40.0 [facility] HEMATOLOGY Basophils 1.1 0.0 - 1.0 07/27 r [facility] HEMATOLOGY Eosinophils 1.5 0.0 - 4.0 07/[address] /2015 [facility] HEMATOLOGY Basophils # 0.1 0.0 - 0.2 07/[address] /2015 [facility] HEMATOLOGY Eosinophils 0.1 0.0 - 0.5 07/[address] # /2015 [facility] HEMATOLOGY Segs-Bands # 4.2 1.5 - 8.1 07/27 Gre ater [facility] HEMATOLOGY Monocytes # 0.5 0.0 - 0.8 07/[address] /2015 [facility] HEMATOLOGY Lymphocytes 1.1 1.0 - 5.5 07/[address] # /2015 [facility] HEMATOLOGY PT 13.6 12.0 - 07/27 MH Greater 14.7 HEMATOLOGY INR 1.02 0.85 - 07/27 MH Greater 1.17 [facility] HEMATOLOGY PTT 28.3 22.9 - 07/27 MH Greater 35.8 [facility] HEMATOLOGY MPV 8.0 7.4 - 10.4 07/27 MH [facility] HEMATOLOGY Platelet 265 133 - 450 07/27 MH [facility] HEMATOLOGY RDW 14.5 11.5 - 07/27 MH Greater 14.5 [facility] HEMATOLOGY WBC 6.0 3.7 - 10.4 07/27 MH [facility] HEMATOLOGY MCV 84.1 80.0 - 07/27 MH Greater 94.0 [facility] HEMATOLOGY Hct 42.3 42.0 - 07/27 MH Greater 54.0 [facility] HEMATOLOGY Hgb 14.3 14.0 - 07/27 MH Greater 18.0 [facility] HEMATOLOGY RBC 5.03 4.70 - 07/27 MH Greater 6.10 [facility] HEMATOLOGY MCH 28.5 27.0 - 07/27 MH Greater 31.0 [facility] HEMATOLOGY MCHC 33.9 32.0 - 07/27 MH Greater 36.0 [facility] LIPIDS CHD Risk 5.52 4.00 - 07/27 MH Greater 7.30 [place] LIPIDS HDL 23 >=61 mg/dL 07/27 MH [facility] LIPIDS Chol 127 <=199 07/27 MH [facility] mg/dL [place] LIPIDS Trig 310 <=149 07/27 MH [facility] mg/dL LIPIDS LDL 42 <=99 mg/dL 07/27 MH [facility] (Calculated) [facility] LIPIDS VLDL 62 07/27 MH [facility] SPECIAL Hgb A1C 5.9 <=5.6 % 07/27 [facility] CHEMISTRY [facility] CHEM PANEL eGFR 77 03/07 Result Comment: The [facility] eGFR is calculated using the CKD-EPI formula. [...] PANEL CO2 30 24 - 32 03/07 [facility] CHEM PANEL Chloride Lvl 103 95 - 109 03/07 ter [facility] CHEM PANEL Potassium 2.7 3.5 - 5.1 03/07 Result r Lvl Comment: [facility] Critical Result(s) called to Ignacio CARRIZALES at 03/07/2016 17:10 by [employer]. Read back OK. CHEM PANEL Sodium Lvl 142 135 - 145 03/07 er [facility] CHEM PANEL Calcium Lvl 8.1 8.5 - 10.5 03/07 ater [facility] CHEM PANEL AGAP 11.7 10.0 - 08 20.0 [facility] CHEM PANEL BUN 7 7 - 22 03/07 [facility] CHEM PANEL Creatinine 1.27 0.50 - 03/07 [facility] Lvl 1.40 [facility] CHEM PANEL Glucose Lvl 125 70 - 99 03/07 r [facility] ELECTROLYT Potassium 2.7 3.5 - 5.1 03/07 Result [facility] r ES Lvl Comment: [facility] Critical Result(s) called to JOEY HERNÁNDEZ at 03/07/2016 16:38 by [employer]. Read back OK. DRUG U Armida Scr Negative Negative 03/07 MH Greater SCREEN *NA* /2015 [place] (03/07/16 1:30 PM) DRUG U Benzodia Negative Negative 03/07 [facility] SCREEN Scr *NA* [facility] (03/07/16 1:30 PM) DRUG U Cocaine Negative Negative 03/07 [facility] SCREEN Scr *NA* [facility] (03/07/16 1:30 PM) DRUG U Cannab Scr Negative Negative 03/07 [facility] SCREEN *NA* [facility] (03/07/16 1:30 PM) DRUG U Opiate Scr Negative Negative 03/07 [facility] r SCREEN *NA* [facility] (03/07/16 1:30 PM) DRUG U Phencyc Negative Negative 03/07 [facility] SCREEN Scr *NA* [facility] (03/07/16 1:30 PM) DRUG UDS Note See Note 03/07 [facility] SCREEN *NA* [facility] (03/07/16 1:30 PM) DRUG U Amph Scr Negative Negative 03/07 [facility] SCREEN *NA* [facility] (03/07/16 1:30 PM) URINE AND UA RBC 0-2 /HPF 0 - 2 03/07 [facility] STOOL /2015 [facility] URINE AND UA Bacteria None Seen None Seen 03/07 Gre ater STOOL (03/07/16 1:30 PM) /2015 [facility] URINE AND UA Mucus Moderate None Seen 03/07 [facility] STOOL /LPF /LPF /2015 [facility] URINE AND Micro? Performed 03/07 [facility] STOOL (03/07/16 1:30 PM) /2015 [facility] URINE AND UA Sq Epi Rare /LPF Few /LPF 03/07 [facility]reate r STOOL /2015 [facility] URINE AND UA WBC 3-5 /HPF None Seen 03/07 [facility] STOOL /HPF /2015 [facility] URINE AND UA Leuk Est Negative Negative 03/07 Great er STOOL (03/07/16 1:30 PM) /2015 [facility] URINE AND UA Nitrite Positive Negative 03/07 [facility] STOOL *ABN* /2015 [facility] (03/07/16 1:30 PM) URINE AND UA 2.0 0.1 - 1.0 03/07 Greater STOOL Urobilinogen /2015 [facility] URINE AND UA Blood Negative Negative 03/07 Greater STOOL (03/07/16 1:30 PM) /2015 [facility] URINE AND UA Bili Moderate Negative 03/07 Greater STOOL *ABN* /2015 [facility] (03/07/16 1:30 PM) URINE AND UA Ketones 15 mg/dL Negative 03/07 Greate r STOOL mg/dL /2015 [facility] URINE AND UA Glucose Negative Negative 03/07 Greate r STOOL (03/07/16 1:30 PM) /2015 [facility] URINE AND UA Protein 30 mg/dL Negative 03/07 Greate r STOOL mg/dL /2015 [facility] URINE AND UA Turbidity Clear Clear 03/07 e r STOOL (03/07/16 1:30 PM) [facility] URINE AND UA Color DK YELLOW 03/07 STOOL /2015 [facility] URINE AND UA pH 5.5 5.0 - 8.0 03/07 STOOL /2015 [facility] URINE AND UA Spec Grav >=1.030 <=1.030 03/07 e r STOOL *ABN* /2015 [facility] (03/07/16 1:30 PM) CARDIAC CK MB Index 0.3 0.0 - 2.5 03/07 ENZYMES [facility] CARDIAC CK MB 1.5 0.5 - 3.6 03/07 Greater ENZYMES [facility] CARDIAC Total CK 501 12 - 191 03/07 Greater ENZYMES [facility] CARDIAC BNP 8 <=100 03/07 Greater ENZYMES pg/mL /2015 [facility] CARDIAC Troponin-I 0.06 0.00 - 08 [facility] ENZYMES 0.40 [facility] CARDIAC BNP 7 <=100 03/07 Greater ENZYMES pg/mL /2015 [facility] CHEM PANEL Bili Total 0.9 0.2 - 1.3 03/07 er [facility] CHEM PANEL AST 89 0 - 37 03/07 [facility] CHEM PANEL Alk Phos 121 39 - 136 03/07 [facility] CHEM PANEL A/G Ratio 0.9 0.7 - 1.6 03/07 r [facility] CHEM PANEL Globulin 3.9 2.7 - 4.2 03/07 [facility] CHEM PANEL ALT 52 0 - 65 03/07 [facility] CHEM PANEL Albumin Lvl 3.7 3.5 - 5.0 03/07 Grea [facility] CHEM PANEL Total 7.6 6.4 - 8.4 03/07 Protein [facility] CHEM PANEL AGAP 13.5 10.0 - 08 Greater 20.0 /2015 [facility] CHEM PANEL Calcium Lvl 9.1 8.5 - 10.5 08 [facility] CHEM PANEL B/C Ratio 5 6 - 25 / [facility] CHEM PANEL eGFR 64 03/07 Result Comment: The [facility] eGFR is calculated using the CKD-EPI formula. [...] CHEM PANEL Creatinine 1.47 0.50 - 08 [facility] Lvl 1.40 [facility] CHEM PANEL Sodium Lvl 140 135 - 145 03/07 [facility] CHEM PANEL CO2 30 24 - 32 03/07 [facility] CHEM PANEL Potassium 2.5 3.5 - 5.1 03/07 Result r Comment: [facility] Critical Result(s) called to Chelsea DERAS at 03/07/2016 13:58_ [email or web address]. Read back OK. CHEM PANEL Chloride Lvl 99 95 - 109 / [facility] CHEM PANEL BUN 7 7 - 22 / [facility] CHEM PANEL Glucose Lvl 105 70 - 99 / r [facility] HEMATOLOGY Segs-Bands # 5.7 1.5 - 8.1 08/ [facility] HEMATOLOGY Lymphocytes 1.3 1.0 - 5.5 / [facility] ter # [facility] HEMATOLOGY Basophils # 0.1 0.0 - 0.2 / [facility] HEMATOLOGY Eosinophils 0.1 0.0 - 0.5 03/[address] # /2015 [facility] HEMATOLOGY Basophils 0.7 0.0 - 1.0 08/06 r /2015 [facility] HEMATOLOGY Segs 70.8 45.0 - 08/06 MH Greater 75.0 /2015 [facility] HEMATOLOGY Monocytes # 0.9 0.0 - 0.8 08/06 ter /2015 [facility] HEMATOLOGY Eosinophils 1.5 0.0 - 4.0 08/06 ter /2015 [facility] HEMATOLOGY Monocytes 10.7 2.0 - 12.0 08/06 er /2015 [facility] HEMATOLOGY Lymphocytes 16.3 20.0 - 08[facility] HEMATOLOGY Hgb 14.2 14.0 - 08/ Greater 18.0 /2015 [facility] HEMATOLOGY Hct 43.6 42.0 - 08/ Greater 54.0 /2015 [facility] HEMATOLOGY MCHC 32.6 32.0 - 08/ Greater 36.0 /2015 [facility] HEMATOLOGY RDW 15.1 11.5 - 08/ Greater 14.5 /2015 [facility] HEMATOLOGY MCV 87.6 80.0 - 08/ MH Greater 94.0 /2015 [facility] HEMATOLOGY MCH 28.6 27.0 - 08/06 MH Greater 31.0 /2015 [facility] HEMATOLOGY WBC 8.0 3.7 - 10.4 08/ [facility] HEMATOLOGY RBC 4.97 4.70 - 08/06 Greater 6.10 /2015 [facility] HEMATOLOGY Platelet 245 133 - 450 08/ [facility] HEMATOLOGY MPV 8.5 7.4 - 10.4 08/ [facility] CARDIAC CK MB Index 0.7 0.0 - 2.5 02/17 ENZYMES /2015 [facility] CARDIAC Total CK 774 12 - 191 02/17 MH Greater ENZYMES /2015 [facility] CARDIAC CK MB 5.2 0.5 - 3.6 02/17 Greater ENZYMES /2015 [facility] CARDIAC Troponin-I 0.02 0.00 - 07 MH Greater ENZYMES 0.40 /2015 [facility] CHEM PANEL eGFR 116 02/17 Result Comment: The [facility] eGFR is calculated using the CKD-EPI formula. [...] PANEL Globulin 4.2 2.0 - 4.0 02/17 [facility] CHEM PANEL B/C Ratio 6 6 - 25 02/17 [facility] CHEM PANEL A/G Ratio 0.8 0.7 - 1.6 02/17 r [facility] CHEM PANEL Calcium Lvl 8.2 8.5 - 10.5 02/17 ater [facility] CHEM PANEL AST 117 0 - 37 02/17 [facility] CHEM PANEL ALT 62 0 - 65 02/17 [facility] CHEM PANEL Glucose Lvl 84 70 - 99 02/17 r [facility] CHEM PANEL BUN 5 7 - 22 02/17 [facility] CHEM PANEL Creatinine 0.90 0.50 - 02/17 Greater Lvl 1.40 [facility] CHEM PANEL Chloride Lvl 96 95 - 109 02/17 [facility] CHEM PANEL Sodium Lvl 133 135 - 145 02/17 [facility] CHEM PANEL Potassium 4.7 3.5 - 5.1 02/17 r Lvl [facility] CHEM PANEL CO2 36 24 - 32 02/17 [facility] CHEM PANEL AGAP 5.7 10.0 - 02/17 Greater 20.0 [facility] CHEM PANEL Alk Phos 110 39 - 136 02/17 [facility] CHEM PANEL Bili Total 0.6 0.2 - 1.3 02/17 [facility] CHEM PANEL Total 7.5 6.4 - 8.4 02/17 Protein [facility] CHEM PANEL Albumin Lvl 3.3 3.5 - 5.0 02/17 ter [facility] HEMATOLOGY Segs 62.9 45.0 - 07/19 Greater 75.0 /2015 [facility] HEMATOLOGY Lymphocytes 22.7 20.0 - 02/17 Greate r 40.0 /2015 [facility] HEMATOLOGY Plt Morph Normal 02/17 Greater (02/18/16 12:22 PM) /2015 [facility] HEMATOLOGY RBC Morph Normal 02/17 Greater (02/18/16 12:22 PM) /2015 [facility] HEMATOLOGY Segs-Bands # 3.9 1.5 - 8.1 02/17 Gre ater /2015 [facility] HEMATOLOGY Basophils 1.2 0.0 - 1.0 02/17 Greate r /2015 [facility] HEMATOLOGY Eosinophils 2.7 0.0 - 4.0 02/[address] /2015 [facility] HEMATOLOGY Monocytes 10.5 2.0 - 12.0 02/17 Great er /2015 [facility] HEMATOLOGY Basophils # 0.1 0.0 - 0.2 02/[address] [facility] HEMATOLOGY Monocytes # 0.6 0.0 - 0.8 02/[address] [facility] HEMATOLOGY Eosinophils 0.2 0.0 - 0.5 02/[address] # /2015 [facility] HEMATOLOGY Lymphocytes 1.4 1.0 - 5.5 02/[address] # /2015 [facility] HEMATOLOGY WBC 6.1 3.7 - 10.4 02/17 [facility] HEMATOLOGY Hgb 13.0 14.0 - 02/17 Greater 18.0 [facility] HEMATOLOGY RDW 14.4 11.5 - 02/17 Greater 14.5 [facility] HEMATOLOGY MCV 87.9 80.0 - 02/17 Greater 94.0 [facility] HEMATOLOGY MCHC 32.8 32.0 - 02/17 Greater 36.0 [facility] HEMATOLOGY Hct 39.6 42.0 - 02/17 Greater 54.0 [facility] HEMATOLOGY RBC 4.51 4.70 - 02/17 Greater 6.10 [facility] HEMATOLOGY Platelet 228 133 - 450 02/17 [facility] HEMATOLOGY MCH 28.9 27.0 - 02/17 Greater 31.0 [facility] HEMATOLOGY MPV 9.5 7.4 - 10.4 02/17 [facility] URINE AND UA Mucus Few /LPF None Seen 11/22 STOOL /LPF /2014 [facility] URINE AND UA Sq Epi Occasional Few /LPF 11/22 STOOL /LPF /2014 [facility] URINE AND UA Ketones Trace Negative 11/22 STOOL *ABN* /2014 [facility] (11/22/14 11:38 AM) URINE AND UA Nitrite Negative Negative 11/22 STOOL (11/22/14 11:38 AM) [place] URINE AND UA 2.0 0.1 - 1.0 11/22 STOOL Urobilinogen /2014 [facility] URINE AND UA Blood Negative Negative 11/22 STOOL (11/22/14 11:38 AM) [place] URINE AND UA Leuk Est Negative Negative 11/22 STOOL (11/22/14 11:38 AM) [place] URINE AND UA Color Yellow Yellow 11/22 STOOL *NA* /2014 [facility] (11/22/14 11:38 AM) URINE AND UA Turbidity Clear Clear 11/22 STOOL (11/22/14 11:38 AM) [place] URINE AND UA Glucose Negative Negative 11/22 STOOL (11/22/14 11:38 AM) [place] URINE AND UA Protein 30 mg/dL Negative 11/22 STOOL mg/dL /2014 [facility] URINE AND UA pH 6.5 5.0 - 8.0 11/22 STOOL /2014 [facility] URINE AND UA Spec Grav 1.025 <=1.030 11/22 STOOL /2014 [facility] URINE AND UA Bili Small Negative 11/22 STOOL *ABN* /2014 [facility] (11/22/14 11:38 AM) CHEM PANEL Lipase Lvl 77 73 - 393 11/22 [facility] CHEM PANEL eGFR 117 11/22 <sup>1</sup>R esult [facility] Comment: The eGFR is calculated using the [...] Bili Total 0.4 0.2 - 1.3 11/22 [facility] CHEM PANEL Alk Phos 106 39 - 136 11/22 [facility] CHEM PANEL AST 83 0 - 37 [...] PANEL Potassium 3.6 3.5 - 5.1 11/22 [facility] CHEM PANEL Creatinine 0.9 0.5 - 1.4 11/22 [facility] CHEM PANEL BUN 8 7 - 22 11/22 [facility] CHEM PANEL Sodium Lvl 139 135 - 145 11/22 [facility] CHEM PANEL Glucose Lvl 86 70 - 99 11/22 <sup>2</sup>I nterpretive [facility] Data: Adult reference range values reflect the clinical guidelines
of the [place] [employer]. CHEM PANEL B/C Ratio 9 6 - 25 11/22 [facility] CHEM PANEL Globulin 4.3 2.0 - 4.0 11/22 [facility] CHEM PANEL A/G Ratio 1.0 0.7 - 1.6 11/22 [facility] CHEM PANEL AGAP 9.6 10.0 - 11/22 MH 20.0 [facility] HEMATOLOGY MCHC 33.0 32.0 - 11/22 MH 36.0 [facility] HEMATOLOGY MCH 28.5 27.0 - 11/22 31.0 [facility] HEMATOLOGY MCV 86.3 80.0 - 11/22 MH 94.0 /2014 [facility] HEMATOLOGY MPV 9.3 7.4 - 10.4 11/22 [facility] HEMATOLOGY Platelet 263 133 - 450 11/22 [facility] HEMATOLOGY RDW 15.3 11.5 - 11/22 MH 14.5 /2014 [facility] HEMATOLOGY RBC 5.09 4.70 - 11/22 MH 6.10 /2014 [facility] HEMATOLOGY Hct 43.9 42.0 - 11/22 MH 54.0 /2014 [facility] HEMATOLOGY Hgb 14.5 14.0 - 11/22 MH 18.0 /2014 [facility] HEMATOLOGY WBC 8.2 3.7 - 10.4 11/22 [facility] HEMATOLOGY Basophils 0.8 0.0 - 1.0 11/22 [facility] HEMATOLOGY Segs-Bands # 6.0 1.5 - 8.1 11/22 [facility] HEMATOLOGY Monocytes # 0.6 0.0 - 0.8 11/22 [facility] HEMATOLOGY Lymphocytes 1.4 1.0 - 5.5 11/22 MH [facility] HEMATOLOGY Basophils # 0.1 0.0 - 0.2 11/22 [facility] HEMATOLOGY Eosinophils 0.1 0.0 - 0.5 11/22 MH [facility] HEMATOLOGY Monocytes 7.5 2.0 - 12.0 11/22 [facility] HEMATOLOGY Eosinophils 1.5 0.0 - 4.0 11/22 [facility] HEMATOLOGY Lymphocytes 17.4 20.0 - 11/22 MH 40.0 [facility] HEMATOLOGY Segs 72.8 45.0 - 11/22 75.0 [facility] CHEM PANEL Magnesium 2.2 1.8 - 2.4 08/17 Lvl /2014 [facility] CHEM PANEL Procalcitoni 0.26 0.00 - 08/17 n Lvl 0. [facility] CHEM PANEL eGFR 93 08/17 <sup>1</sup>R esult [facility] Comment: The eGFR is calculated using the [...] PANEL BUN 11 7 - 22 08/17 [facility] CHEM PANEL Glucose Lvl 122 70 - 99 08/17 <sup>4</sup>I nterpretive [facility] Data: Adult reference range values reflect the clinical guidelines
of the [place] [employer]. CHEM PANEL Creatinine 1.1 0.5 - 1.4 08/17 Lvl /2014 [facility] CHEM PANEL Sodium Lvl 138 135 - 145 08/17 [facility] CHEM PANEL Chloride Lvl 105 95 - 109 08/17 [facility] CHEM PANEL Potassium 3.9 3.5 - 5.1 08/17 Lvl /2014 [facility] CHEM PANEL CO2 24 24 - 32 08/17 [facility] CHEM PANEL Calcium Lvl 8.4 8.5 - 10.5 08/17 [facility] CHEM PANEL AGAP 12.9 10.0 - 08/17 MH 20.0 /2014 [facility] CHEM PANEL Phosphorus 3.8 2.5 - 4.5 08/17 /2014 [facility] HEMATOLOGY Basophils # 0.1 0.0 - 0.2 08/17 /2014 [facility] HEMATOLOGY Eosinophils 0.3 0.0 - 0.5 08/17 MH # /2014 [facility] HEMATOLOGY Monocytes # 1.1 0.0 - 0.8 08/17 /2014 [facility] HEMATOLOGY Lymphocytes 1.3 1.0 - 5.5 08/17 MH # /2014 [facility] HEMATOLOGY Segs-Bands # 7.3 1.5 - 8.1 08/17 [facility] HEMATOLOGY Basophils 0.9 0.0 - 1.0 08/17 [facility] HEMATOLOGY Monocytes 10.7 2.0 - 12.0 08/17 /2014 [facility] HEMATOLOGY Lymphocytes 13.2 20.0 - 08/17 MH 40.0 /2014 [facility] HEMATOLOGY Segs 72.5 45.0 - 08/17 MH 75.0 /2014 [facility] HEMATOLOGY Eosinophils 2.7 0.0 - 4.0 08/17 [facility] HEMATOLOGY RDW 16.2 11.5 - 08/17 MH 14.5 /2014 [facility] HEMATOLOGY Platelet 222 133 - 450 08/17 [facility] HEMATOLOGY MPV 9.6 7.4 - 10.4 08/17 /2014 [facility] HEMATOLOGY Hct 34.8 42.0 - 08/17 MH 54.0 /2014 [facility] HEMATOLOGY MCV 89.3 80.0 - 08/17 MH 94.0 /2014 [facility] HEMATOLOGY MCH 29.2 27.0 - 08/17 MH 31.0 /2014 [facility] HEMATOLOGY MCHC 32.7 32.0 - 08/17 MH 36.0 /2014 [facility] HEMATOLOGY Hgb 11.4 14.0 - 08/17 MH 18.0 /2014 [facility] HEMATOLOGY WBC 10.0 3.7 - 10.4 08/17 /2014 [facility] HEMATOLOGY RBC 3.89 4.70 - 08/17 6.10 /2014 [facility] CARDIAC Total CK 497 12 - 191 08/16 ENZYMES /2014 [facility] CARDIAC Troponin-I 0.06 0.00 - 08/16 ENZYMES 0.40 /2014 [facility] CARDIAC BNP 204 <=100 08/16 <sup>7</sup>I ENZYMES pg/mL /2014 nterpretive [facility] Data: Elevated results are in line with increasing severity of
con gestive heart failure. Minor elevations between 100 and 300
may be seen with Myocardial Ischemia, Sodium retaining drugs,
an d compensated/t reated heart failure. CHEM PANEL Magnesium 2.0 1.8 - 2.4 08/16 Lvl /2014 [facility] CHEM PANEL Phosphorus 2.8 2.5 - 4.5 08/16 [facility] ELECTROLYT AGAP 12.6 10.0 - 08/16 ES 20.0 [facility] ELECTROLYT eGFR 93 08/16 <sup>2</sup>R MH ES /2014 esult [facility] Comment: The eGFR is calculated using the [...] 70 - 99 08/16 <sup>5</sup>I MH nterpretive [facility] Data: Adult reference range values reflect the clinical guidelines
of the [place] [employer]. ELECTROLYT Creatinine 1.1 0.5 - 1.4 08/16 ES Lvl [facility] ELECTROLYT BUN 10 7 - 22 08/16 ES [facility] ELECTROLYT CO2 24 24 - 32 08/16 ES [facility] ELECTROLYT Sodium Lvl 137 135 - 145 08/16 ES [facility] ELECTROLYT Chloride Lvl 104 95 - 109 08/16 ES [facility] ELECTROLYT Potassium 3.6 3.5 - 5.1 08/16 ES Lvl [facility] ELECTROLYT Calcium Lvl 8.3 8.5 - 10.5 08/16 ES [facility] HEMATOLOGY Lymphocytes 8.0 20.0 - 08/16 MH 40.0 [facility] HEMATOLOGY Segs 81.9 45.0 - 08/16 MH 75.0 /2014 [facility] HEMATOLOGY Eosinophils 0.6 0.0 - 4.0 08/16 [facility] HEMATOLOGY Monocytes 8.7 2.0 - 12.0 08/16 [facility] HEMATOLOGY Eosinophils 0.1 0.0 - 0.5 08/16 MH # /2014 [facility] HEMATOLOGY Basophils # 0.1 0.0 - 0.2 08/16 [facility] HEMATOLOGY Segs-Bands # 12.1 1.5 - 8.1 08/16 [facility] HEMATOLOGY Basophils 0.8 0.0 - 1.0 08/16 [facility] HEMATOLOGY Lymphocytes 1.2 1.0 - 5.5 08/16 /2014 [facility] HEMATOLOGY Monocytes # 1.3 0.0 - 0.8 08/16 [facility] HEMATOLOGY WBC 14.8 3.7 - 10.4 08/16 [facility] HEMATOLOGY Platelet 249 133 - 450 08/16 [facility] HEMATOLOGY RDW 16.2 11.5 - 08/16 MH 14.5 /2014 [facility] HEMATOLOGY MCH 28.3 27.0 - 08/16 MH 31.0 /2014 [facility] HEMATOLOGY MCHC 31.7 32.0 - 08/16 MH 36.0 /2014 [facility] HEMATOLOGY MPV 9.4 7.4 - 10.4 08/16 /2014 [facility] HEMATOLOGY Hct 39.5 42.0 - 08/16 54.0 /2014 [facility] HEMATOLOGY MCV 89.1 80.0 - 08/16 MH 94.0 /2014 [facility] HEMATOLOGY Hgb 12.6 14.0 - 08/16 MH 18.0 /2014 [facility] HEMATOLOGY RBC 4.44 4.70 - 08/16 MH 6.10 /2014 [facility] MOLECULAR Adenovirus Negative 12 Negative 08/16 <sup>12</sup> DIAGNOSTIC PCR (08/15/14 11:56 PM) /2014 Interpreti ve [facility] Data: The Adenovirus PCR assay is a [...] fied by the [facility] within [facility]. The Molecular Diagnostic Laboratory is authorized under
the Clinical Laboratory Improvement Amendments of 1988 (CLIA-88) to
perfor m high complexity testing. MOLECULAR Source [employer]PECTING MACHINE ADJUSTER Swab 08/16 DIAGNOSTIC Adenovirus (08/15/14 11:56 PM) /2014 [facility] PCR MOLECULAR Parainfluenz Negative Negative 08/16 DIAGNOSTIC a 2 PCR (08/15/14 11:56 PM) /2014 No rtheast MOLECULAR Source [employer] INSPECTING MACHINE ADJUSTER Swab 08/16 DIAGNOSTIC Parainfluenz (08/15/14 11:56 PM) /2014 [facility] a Virus PCR MOLECULAR Parainfluenz Negative Negative 08/16 DIAGNOSTIC a 1 PCR (08/15/14 11:56 PM) No rtheast MOLECULAR Parainfluenz Negative 13 Negative 08/16 <sup>13</sup > DIAGNOSTIC a 3 PCR (08/15/14 11:56 PM) Interpreti ve [facility] Data: The Parainfluenza PCR assay is a [...] fied by the [facility] within [facility]. The [facility] is authorized
under the Clinical Laboratory Improvement Amendments of 1988
(CLI A-88) to perform high complexity testing. MOLECULAR Source [employer] INSPECTING MACHINE ADJUSTER Swab 08/16 DIAGNOSTIC Respiratory (08/15/14 11:56 [...] verified by
the [facility] within [facility]. The
[facility] Diagnostic Laboratory is authorized under the Clinical
Laboratory Improvement Amendments of 1988 (CLIA-88) to perform high
comp lexity testing. MOLECULAR Influenza B Negative Negative 08/16 DIAGNOSTIC PCR (08/15/14 11:56 PM) No rtheast MOLECULAR Influenza A Negative Negative 08/16 DIAGNOSTIC PCR (08/15/14 11:56 PM) No rtheast CARDIAC Total CK 516 12 - 191 08/15 ENZYMES [facility] CARDIAC Troponin-I 0.04 0.00 - 08/15 ENZYMES 0.40 [facility] CHEM PANEL Phosphorus 1.8 2.5 - 4.5 08/15 MH [facility] CHEM PANEL Magnesium 1.9 1.8 - 2.4 08/15 Lvl [facility] CHEM PANEL eGFR 93 08/15 <sup>3</sup>R esult [...] 96 70 - 99 08/15 <sup>6</sup>I nterpretive [facility] Data: Adult reference range values reflect the clinical guidelines
of the [place] [employer]. CHEM PANEL BUN 12 7 - 22 08/15 [facility] CHEM PANEL CO2 22 24 - 32 08/15 [facility] CHEM PANEL Potassium 3.7 3.5 - 5.1 08/15 Lvl [facility] CHEM PANEL Sodium Lvl 136 135 - 145 08/15 [facility] CHEM PANEL Creatinine 1.1 0.5 - 1.4 08/15 Lvl [facility] CHEM PANEL Chloride Lvl 104 95 - 109 08/15 [facility] CHEM PANEL Calcium Lvl 8.5 8.5 - 10.5 08/15 [facility] CHEM PANEL AGAP 13.7 10.0 - 08/15 20.0 [facility] HEMATOLOGY Basophils # 0.2 0.0 - 0.2 08/15 [facility] HEMATOLOGY Basophils 1.4 0.0 - 1.0 08/15 [facility] HEMATOLOGY Eosinophils 1.1 0.0 - 4.0 08/15 [facility] HEMATOLOGY Monocytes 7.5 2.0 - 12.0 08/15 [facility] HEMATOLOGY Monocytes # 1.1 0.0 - 0.8 08/15 [facility] HEMATOLOGY Eosinophils 0.2 0.0 - 0.5 08/15 # /2014 [facility] HEMATOLOGY Lymphocytes 1.2 1.0 - 5.5 08/15 # /2014 [facility] HEMATOLOGY Lymphocytes 8.6 20.0 - 08/15 MH 40.0 /2014 [facility] HEMATOLOGY Segs 81.4 45.0 - 08/15 MH 75.0 /2014 [facility] HEMATOLOGY Segs-Bands # 11.4 1.5 - 8.1 08/15 [facility] HEMATOLOGY Platelet 267 133 - 450 08/15 [facility] HEMATOLOGY RDW 16.4 11.5 - 08/15 MH 14. [facility] HEMATOLOGY MPV 9.4 7.4 - 10.4 08/15 [facility] HEMATOLOGY MCHC 31.1 32.0 - 08/15 MH 36.0 [facility] HEMATOLOGY MCH 27.8 27.0 - 08/15 MH 31.0 /2014 [facility] HEMATOLOGY RBC 4.61 4.70 - 08/15 MH 6.10 /2014 [facility] HEMATOLOGY WBC 14.1 3.7 - 10.4 08/15 /2014 [facility] HEMATOLOGY MCV 89.2 80.0 - 08/15 MH 94.0 /2014 [facility] HEMATOLOGY Hct 41.1 42.0 - 08/15 MH 54.0 /2014 [facility] HEMATOLOGY Hgb 12.8 14.0 - 08/15 MH 18.0 /2014 [facility] CARDIAC Total CK 493 12 - 191 08/15 ENZYMES /2014 [facility] CARDIAC Troponin-I 0.04 0.00 - 08/15 ENZYMES 0.40 /2014 [facility] DRUG U Amph Scr Negative Negative 08/15 MH SCREEN *NA* [facility] (08/15/14 4:00 AM) DRUG U Cocaine Negative Negative 08/15 MH SCREEN Scr *NA* [facility] (08/15/14 4:00 AM) DRUG U Armida Scr Negative Negative 08/15 MH SCREEN *NA* [facility] (08/15/14 4:00 AM) DRUG U Benzodia Negative Negative 08/15 MH SCREEN Scr *NA [facility] (08/15/14 4:00 AM) DRUG UDS Note See Note 9 08/15 <sup>9</sup>I MH SCREEN * nterpretive [facility] (08/15/14 4:00 AM) Data: Drugs reported as positive have not been confirmed by a second
pa thod and should be used for medical [...] Cannab Scr Negative Negative 08/15 SCREEN *NA* [facility] (08/15/14 4:00 AM) DRUG U Opiate Scr Negative Negative 08/15 SCREEN *NA* [facility] (08/15/14 4:00 AM) DRUG U Phencyc Negative Negative 08/15 SCREEN Scr *NA* [facility] (08/15/14 4:00 AM) BACTERIAL U S pneumo [...] 6.0 5.0 - 8.0 08/14 STOOL /2014 [facility] URINE AND UA Protein 30 mg/dL Negative 08/14 STOOL mg/dL [place] URINE AND UA Color Yellow Yellow 08/14 STOOL *NA* [facility] (08/14/14 9:25 AM) URINE AND UA Bili Negative Negative 08/14 STOOL *NA* [facility] (08/14/14 9:25 AM) URINE AND UA Ketones 15 mg/dL Negative 08/14 STOOL mg/dL /2014 [place] URINE AND UA Glucose Negative Negative 08/14 STOOL (08/14/14 9:25 AM) [place] URINE AND UA 1.0 0.1 - 1.0 08/14 STOOL Urobilinogen /2014 [facility] URINE AND UA Blood Negative Negative 08/14 STOOL (08/14/14 9:25 AM) [place] URINE AND UA Mucus Many /LPF None Seen 08/14 STOOL /LPF /2014 [place] URINE AND UA Bacteria None Seen None Seen 08/14 STOOL (08/14/14 9:25 AM) [place] URINE AND UA Fine Gran 0-2 /LPF None Seen 08/14 STOOL /LPF /2014 [facility] URINE AND UA RBC None Seen 0 - 2 08/14 STO[place] (08/14/14 9:25 AM) [place] URINE AND UA WBC None Seen None Seen 08/14 STOOL (08/14/14 9:25 AM) /2014 [place] URINE AND UA Sq Epi Occasional Few /LPF 08/14 STOOL /LPF /2014 [facility] CARDIAC BNP 94 <=100 08/14 <sup>8</sup>I ENZYMES pg/mL /2014 nterpretive [facility] Data: Elevated results are in line with increasing severity of
con gestive heart failure. Minor elevations between 100 and 300
may be seen with Myocardial Ischemia, Sodium retaining drugs,
an d compensated/t reated heart failure. CARDIAC CK MB 5.6 0.5 - 3.6 08/14 ENZYMES [facility] CARDIAC CK MB Index 0.8 0.0 - 2.5 08/14 ENZYMES [facility] CHEM PANEL A/G Ratio 1.0 0.7 - 1.6 08/14 [facility] CHEM PANEL Globulin 3.7 2.0 - 4.0 08/14 [facility] CHEM PANEL Bili Total 0.8 0.2 - 1.3 08/14 [facility] CHEM PANEL B/C Ratio 8 6 - 25 08/14 [facility] CHEM PANEL Total 7.5 6.4 - 8.4 08/14 Protein [facility] CHEM PANEL Albumin Lvl 3.8 3.5 - 5.0 08/14 [facility] CHEM PANEL Alk Phos 112 39 - 136 08/14 [facility] CHEM PANEL AST 33 0 - 37 08/14 [facility] CHEM PANEL ALT 27 0 - 65 08/14 [facility] CHEM PANEL Lactic Acid 1.2 0.5 - 2.2 08/14 Lvl /2014 [facility] CHEM PANEL Procalcitoni 0.05 0.00 - 08/14 n Lvl 0.10 [facility] HEMATOLOGY INR 1.01 0.85 - 08/14 <sup>10</sup> 1.17 /2014 Interpretive [facility] Data: RECOMMENDED RANGES FOR PROTIME INR:
2.0-3.0 for most medical and surgical thromboemboli c states.
2.5-3.5 for artificial heart valves and recurrent embolism.<br/ >
INR SHOULD BE USED ONLY FOR PATIENTS ON STABLE ANTICOAGULANT THERAPY. HEMATOLOGY PTT 31.0 22.9 - 08/14 <sup>11</sup> 35.8 /2014 Interpretive [facility] Data: Heparin Therapeutic Range: 57 - 92 Seconds HEMATOLOGY PT 13.3 12.0 - 08/14 14.7 /2014 [facility] HEMATOLOGY Anisocyte 1+ None Seen 08/14 *ABN* /2014 [facility] (08/14/14 8:49 AM) HEMATOLOGY Plt Morph Normal 08/14 (08/14/14 8:49 AM) [facility] ast VIRAL - Influ A Negative Negative 08/14 SEROLOGY (08/14/14 8:49 AM) [place] VIRAL - Influ B Negative 15 Negative 08/14 <sup>15</sup> SEROLOGY (08/14/14 8:49 AM) [facility]: Influenza A&B Antigen:
Due to [...] PANEL Magnesium 2.1 1.8 - 2.4 05/13 [facility] CHEM PANEL Phosphorus 4.9 2.5 - 4.5 05/13 [facility]2013 [facility] CHEM PANEL eGFR 124 05/13 <sup>1</sup>[place] [facility] Medical Comment: The Center eGFR is [...] PANEL CO2 23 24 - 32 05/13 [facility] CHEM PANEL Calcium Lvl 9.4 8.5 - 10.5 05/13 [facility] CHEM PANEL Potassium 4.9 3.5 - 5.1 05/13 [facility] CHEM PANEL Sodium Lvl 135 135 - 145 05/13 [facility] CHEM PANEL Glucose Lvl 83 70 - 99 05/13 <sup>4</sup>I nterpretive Medical Data: Adult Center reference range values reflect the clinical guidelines
of the [place] [employer]. CHEM PANEL Creatinine 0.8 0.5 - 1.4 05/13 [facility] CHEM PANEL BUN 11 7 - 22 05/13 [facility] CHEM PANEL Chloride Lvl 100 95 - 109 05/13 [facility] CHEM PANEL AGAP 16.9 10.0 - 05/13 [place] 20.0 [facility] HEMATOLOGY Eosinophils 0.3 0.0 - 0.5 05/13 s # [facility] HEMATOLOGY Monocytes # 1.3 0.0 - 0.8 05/13 [facility] HEMATOLOGY Lymphocytes 1.2 1.0 - 5.5 05/13 s # [facility] HEMATOLOGY Segs-Bands # 6.4 1.5 - 8.1 05/13 [facility] HEMATOLOGY Basophils 0.4 0.0 - 1.0 05/13 [facility] HEMATOLOGY Eosinophils 3.1 0.0 - 4.0 05/13 [facility] HEMATOLOGY Segs 69.3 45.0 - 05/13 [place] 75.0 [facility] HEMATOLOGY Monocytes 14.0 2.0 - 12.0 05/13 [facility] HEMATOLOGY Lymphocytes 13.2 20.0 - 05/13 [place] 40.0 /2013 [facility] HEMATOLOGY Hgb 12.8 14.0 - 05/13 [place] 18.0 [facility] HEMATOLOGY RBC 4.62 4.70 - 05/13 [place] 6.10 [facility] HEMATOLOGY MCV 86.0 80.0 - 05/13 [place] 94.0 /2013 [facility] HEMATOLOGY Hct 39.7 42.0 - 05/13 [place] 54.0 [facility] HEMATOLOGY Platelet 222 133 - 450 05/13 [facility] HEMATOLOGY RDW 14.3 11.5 - 05/13 [place] 14.5 [facility] HEMATOLOGY MCHC 32.3 32.0 - 05/13 [place] 36.0 [facility] HEMATOLOGY MCH 27.7 27.0 - 05/13 [place] 31.0 [facility] HEMATOLOGY MPV 8.9 7.4 - 10.4 05/13 [facility] HEMATOLOGY WBC 9.2 3.7 - 10.4 05/13 [facility] CARDIAC CK MB Index 0.3 0.0 - 2.5 05/12 ENZYMES [facility] CARDIAC CK MB 1.2 0.5 - 3.6 05/12 [facility] ENZYMES [facility] CARDIAC Total CK 400 12 - 191 05/12 [facility] ENZYMES [facility] CARDIAC Troponin-I <0.02 0.00 - 05/12 [facility] ENZYMES 0. [facility] CHEM PANEL Magnesium 2.2 1.8 - 2.4 05/12 [facility] Lvl [facility] CHEM PANEL eGFR 118 05/12 <sup>2</sup>R [place] [facility] Medical Comment: The Center eGFR is [...] Calcium Lvl 9.1 8.5 - 10.5 05/12 [facility] CHEM PANEL CO2 25 24 - 32 05/12 [facility] CHEM PANEL Chloride Lvl 101 95 - 109 05/12 [facility] CHEM PANEL Potassium 4.1 3.5 - 5.1 05/12 [facility] CHEM PANEL Sodium Lvl 137 135 - 145 05/12 [facility] CHEM PANEL Creatinine 0.9 0.5 - 1.4 05/12 [facility] CHEM PANEL BUN 6 7 - 22 05/12 [facility] CHEM PANEL Glucose Lvl 89 70 - 99 05/12 <sup>5</sup>I nterpretive Medical Data: Adult Center reference range values reflect the clinical guidelines
of the [place] [employer]. CHEM PANEL AGAP 15.1 10.0 - 05/12 20.0 [facility] CHEM PANEL Phosphorus 4.6 2.5 - 4.5 05/12 [facility] HEMATOLOGY MCH 28.3 27.0 - 05/12 31.0 [facility] HEMATOLOGY MCHC 33.1 32.0 - 05/12 [place] 36.0 [facility] HEMATOLOGY RDW 14.2 11.5 - 05/12 [place] 14.5 [facility] HEMATOLOGY Platelet 231 133 - 450 05/12 [facility] HEMATOLOGY MPV 9.5 7.4 - 10.4 05/12 [facility] HEMATOLOGY WBC 8.9 3.7 - 10.4 05/12 [facility] HEMATOLOGY Hgb 12.6 14.0 - 05/12 [place] 18.0 [facility] HEMATOLOGY MCV 85.3 80.0 - 05/12 [place] 94.0 [facility] HEMATOLOGY Hct 38.1 42.0 - 05/12 [place] 54.0 /2013 [facility] HEMATOLOGY RBC 4.47 4.70 - 05/12 [place] 6.10 [facility] HEMATOLOGY Monocytes # 0.9 0.0 - 0.8 05/12 [facility] HEMAT[facility]Y Lymphocytes 1.3 1.0 - 5.5 05/12 [place] [facility] HEMAT[facility]Y Eosinophils 1.9 0.0 - 4.0 05/12 [place] [facility] HEMATOLOGY Segs-Bands # 6.5 1.5 - 8.1 05/12 [facility] HEMATOLOGY Basophils 0.4 0.0 - 1.0 05/12 [facility] HEMATOLOGY Segs 72.9 45.0 - 05/12 [place] 75.0 /2013 [facility] HEMATOLOGY Monocytes 9.8 2.0 - 12.0 05/12 [facility] HEMATOLOGY Lymphocytes 15.0 20.0 - 05/12 [place] 40.0 [facility] HEMATOLOGY Eosinophils 0.2 0.0 - 0.5 05/12 [place] [facility] IMMUNOLOGY Ophelia-Hep C Negative Negative 05/12 [facility] *NA* /2013 [facility] (05/12/14 3:01 AM) [place] [facility] CARDIAC Total CK 447 12 - 191 05/11 [place] ENZYMES [facility] Center CARDIAC CK MB 2.2 0.5 - 3.6 05/11 [place] ENZYMES [facility] CARDIAC CK MB Index 0.5 0.0 - 2.5 05/11 [place] ENZYMES [facility] CARDIAC Troponin-T <0.010 0.000 - 05/11 [place] ENZYMES 0. [facility] Center CARDIAC Troponin-I <0.02 0.00 - 05/11 [place] ENZYMES 0.40 [facility] Center CARDIAC Troponin-I <0.02 0.00 - 05/11 [place] ENZYMES 0.40 [facility] Center CARDIAC Troponin-T <0.010 0.000 - 05/11 [place] ENZYMES 0.100 [facility] Center CARDIAC Total CK 455 12 - 191 05/11 [place] ENZYMES [facility] CARDIAC CK MB Index 0.5 0.0 - 2.5 05/11 [place] [facility] CARDIAC CK MB 2.2 0.5 - 3.6 05/11 [place] [facility] Center CHEM PANEL Phosphorus 2.9 2.5 - 4.5 05/11 [facility] CHEM PANEL Magnesium 2.0 1.8 - 2.4 05/11 [facility] Lvl [facility] CARDIAC Troponin-T <0.010 0.000 - 05/11 [facility] ENZYMES 0.100 [facility] TOXICOLOGY V[place] Tr 11.9 05/11 <sup>7</sup>I [facility] nterpretive Medical Data: Center Therapeutic Range:
Trough: 10 - 20 ug/mL
Peak: 20 - 40 ug/mL
Potential Toxicity: >80 ug/mL TOXICOLOGY Vanco Tr TND 21:30 05/11 [facility] ELECTROLYT AGAP 13.9 10.0 - 05/11 [facility] ES 20.0 [facility] ELECTROLYT eGFR 104 05/11 <sup>3</sup>[facility] Comment: The Center [...] ELECTROLYT BUN 9 7 - 22 05/11 [facility] ELECTROLYT Glucose Lvl 106 70 - 99 05/11 <sup>6</sup>I [facility] nterpretive Medical Data: Adult Center reference range values reflect the clinical guidelines
of the [place] [employer]. ELECTROLYT Calcium Lvl 8.6 8.5 - 10.5 05/11 [facility] ELECTROLYT CO2 25 24 - 32 [...] HEMATOLOGY Eosinophils 2.0 0.0 - 4.0 05/11 [facility] HEMATOLOGY Basophils 0.3 0.0 - [...] HEMATOLOGY RBC 4.19 4.70 - 05/11 [place] 6. [facility] HEMATOLOGY Hgb 11.8 14.0 - 05/11 [place] 18.0 [facility] HEMATOLOGY MCV 86.3 80.0 - 05/11 [place] 94.0 [facility] HEMATOLOGY Hct 36.2 42.0 - 05/11 [place] 54.0 [facility] HEMATOLOGY MCH 28.2 27.0 - 05/11 [place] 31.0 [facility] HEMATOLOGY RDW 14.6 11.5 - 05/11 [place] 14. [facility] HEMATOLOGY MCHC 32.7 32.0 - 10 [place] 36.0 [facility] TOXICOLOGY Vanco Tr TND 130am 05/11 [facility] TOXICOLOGY Vanco Tr 2.6 05/11 <sup>8</sup>I [facility] nterpretive Medical Data: Center Therapeutic Range:
Trough: 10 - 20 ug/mL
Peak: 20 - 40 ug/mL
Potential Toxicity: >80 ug/mL CHEM PANEL Lactic Acid 2.2 0.5 - 2.2 05/08 Lvl [facility] CHEM PANEL Globulin 3.5 2.0 - 4.0 05/08 [facility] CHEM PANEL A/G Ratio 1.0 0.7 - 1.6 05/08 [facility] CHEM PANEL AGAP 14.4 10. - 05/08 20.0 [facility] CHEM PANEL B/C Ratio 9 6 - 25 05/08 [facility] CHEM PANEL eGFR 104 05/08 <sup>1</sup>R esult [facility] Comment: The eGFR is calculated using the [...] Alk Phos 75 39 - 136 05/08 [facility] CHEM PANEL Bili Total 0.2 0.2 - 1.3 05/08 [facility] CHEM PANEL Glucose Lvl 123 70 - 99 05/08 <sup>2</sup>I nterpretive [facility] Data: Adult reference range values reflect the clinical guidelines
of the [place] [employer]. CHEM PANEL Sodium Lvl 142 135 - 145 05/08 [facility] CHEM PANEL Creatinine 1.0 0.5 - 1.4 05/08 Lvl [facility] CHEM PANEL Potassium 3.4 3.5 - 5.1 05/08 [facility] [place] CHEM PANEL BUN 9 7 - 22 05/08 [facility] CHEM PANEL Albumin Lvl 3.6 3.5 - 5.0 05/08 [facility] CHEM PANEL ALT 23 0 - 65 05/08 [facility] CHEM PANEL AST 23 0 - 37 05/08 [facility] CHEM PANEL Calcium Lvl 8.4 8.5 - 10.5 05/08 [facility] CHEM PANEL Chloride Lvl 104 95 - 109 05/08 [facility] CHEM PANEL CO2 27 24 - 32 05/08 [facility] CHEM PANEL Total 7.1 6.4 - 8.4 05/08 [facility] CHEM PANEL Procalcitoni <0.05 0.00 - 05/08 n Lvl ng/mL 0. [facility] HEMATOLOGY PTT 32.9 22.9 - 05/08 <sup>4</sup>I 35.8 nterpretive [facility] Data: Heparin Therapeutic Range: 57 - 92 Seconds HEMATOLOGY PT 13.0 12.0 - 05/08 14.7 [facility] HEMATOLOGY INR 0.98 0.85 - 05/08 <sup>3</sup>I 1.17 nterpretive [facility] Data: RECOMMENDED RANGES FOR PROTIME INR:
2.0-3.0 for most medical and surgical thromboemboli c states.
2.5-3.5 for artificial heart valves and recurrent embolism.<br/ >
INR SHOULD BE USED ONLY FOR PATIENTS ON STABLE ANTICOAGULANT THERAPY. HEMATOLOGY MCH 28.5 27.0 - 05/08 31.0 /2013 [facility] HEMATOLOGY MCV 85.0 80.0 - 05/08 94.0 /2013 [facility] HEMATOLOGY Hct 36.8 42.0 - 05/08 54.0 /2013 [facility] HEMATOLOGY WBC 8.6 3.7 - 10.4 05/08 [facility] HEMATOLOGY Hgb 12.3 14.0 - 05/08 18.0 [facility] HEMATOLOGY RBC 4.33 4.70 - 05/08 MH 6.10 [facility] HEMATOLOGY Platelet 193 133 - 450 05/08 [facility] HEMATOLOGY RDW 14.3 11.5 - 05/08 MH 14. /2013 [facility] HEMATOLOGY MCHC 33.6 32.0 - 05/08 MH 36.0 /2013 [facility] HEMATOLOGY MPV 8.9 7.4 - 10.4 05/08 [facility] HEMATOLOGY Eosinophils 2.5 0.0 - 4.0 05/08 [facility] HEMATOLOGY Basophils 0.5 0.0 - 1.0 05/08 [facility] HEMATOLOGY Segs-Bands # 5.9 1.5 - 8.1 05/08 [facility] HEMATOLOGY Lymphocytes 1.7 1.0 - 5.5 05/08 # /2013 [facility] HEMATOLOGY Monocytes # 0.7 0.0 - 0.8 05/08 [facility] HEMATOLOGY Eosinophils 0.2 0.0 - 0.5 05/08 # /2013 [facility] HEMATOLOGY Lymphocytes 20.2 20.0 - 05/08 40.0 /2013 [facility] HEMATOLOGY Monocytes 8.2 2.0 - 12.0 05/08 [facility] HEMATOLOGY Segs 68.6 45.0 - 05/08 MH 75.0 /2013 [facility] CARDIAC Total CK 360 12 - 191 02/09 ENZYMES [facility] CHEM PANEL Magnesium 2.0 1.8 - 2.4 02/09 Lvl /2013 [facility] CHEM PANEL Uric Acid 6.4 3.8 - 8.0 02/09 [facility] ELECTROLYT AGAP 9.6 10.0 - 02/09 ES 20.0 /2013 [facility] ELECTROLYT eGFR 104 02/09 <sup>1</sup>R ES esult [facility] Comment: The eGFR is calculated using the [...] 8.5 - 10.5 / MH ES /2013 [facility] ELECTROLYT Creatinine 1.0 0.5 - 1.4 02/09 ES Lvl /2013 [facility] ELECTROLYT Chloride Lvl 103 95 - 109 / MH ES /2013 [facility] ELECTROLYT CO2 32 24 - 32 02/09 ES /2013 [facility] ELECTROLYT Sodium Lvl 141 135 - 145 02/09 ES /2013 [facility] ELECTROLYT Potassium 3.6 3.5 - 5.1 02/09 ES Lvl /2013 [facility] ELECTROLYT BUN 13 7 - 22 02/09 ES /2013 [facility] ELECTROLYT Glucose Lvl 91 70 - 99 02/09 <sup>4</sup>I MH ES /2013 nterpretive [facility] Data: Adult reference range values reflect the clinical guidelines
of the [place] [employer]. HEMATOLOGY WBC 5.7 3.7 - 10.4 / /2013 [facility] HEMATOLOGY RBC 4.40 4.70 - 02/09 MH 6.10 /2013 [facility] HEMATOLOGY MPV 8.8 7.4 - 10.4 02/09 /2013 [facility] HEMATOLOGY RDW 14.0 11.5 - / MH 14.5 /2013 [facility] HEMATOLOGY Platelet 185 133 - 450 02/09 MH /2013 [facility] HEMATOLOGY MCV 85.9 80.0 - 02/09 94.0 /2014 [facility] HEMATOLOGY MCH 28.1 27.0 - 02/09 MH 31.0 /2013 [facility] HEMATOLOGY MCHC 32.7 32.0 - / MH 36.0 /2013 [facility] HEMATOLOGY Hgb 12.4 14.0 - 02/09 MH 18.0 /2013 [facility] HEMATOLOGY Hct 37.8 42.0 - 02/09 MH 54.0 /2013 [facility] HEMATOLOGY Monocytes # 0.8 0.0 - 0.8 /11 MH /2013 [facility] HEMATOLOGY Eosinophils 0.2 0.0 - 0.5 /11 MH # /2014 [facility] HEMATOLOGY Lymphocytes 1.6 1.0 - 5.5 /11 MH # /2014 [facility] HEMATOLOGY Segs-Bands # 3.2 1.5 - 8.1 02/09 [facility] HEMATOLOGY Eosinophils 3.0 0.0 - 4.0 02/09 [facility] HEMATOLOGY Basophils 0.3 0.0 - 1.0 02/09 [facility] HEMATOLOGY Monocytes 13.5 2.0 - 12.0 02/09 [facility] HEMATOLOGY Lymphocytes 27.9 20.0 - 02/09 40.0 /2013 [facility] HEMATOLOGY Segs 55.3 45.0 - 02/09 75.0 /2013 [facility] URINE CHEM U Protein 23.7 02/09 <sup>8</sup>I nterpretive [facility] Data: No established reference ranges. URINE CHEM U Creatinine 185.2 02/09 <sup>7</sup>I nterpretive [facility] Data: No established reference ranges. URINE CHEM U Sodium 67 02/09 <sup>9</sup>I nterpretive [facility] Data: No established reference ranges. URINE CHEM U Prot/Creat 0.1 02/09 [facility] CARDIAC Total CK 496 12 - 191 02/08 [facility] CHEM PANEL eGFR 83 02/08 <sup>2</sup>R esult [facility] Comment: The eGFR is calculated using the [...] Sodium Lvl 138 135 - 145 02/08 [facility] CHEM PANEL Creatinine 1.2 0.5 - 1.4 02/08 Lv [facility] CHEM PANEL BUN 18 7 - 22 07 [facility] CHEM PANEL Glucose Lvl 100 70 - 99 02/08 <sup>5</sup>I nterpretive [facility] Data: Adult reference range values reflect the clinical guidelines
of the [place] [employer]. CHEM PANEL Calcium Lvl 8.9 8.5 - 10.5 02/08 [facility] CHEM PANEL CO2 32 24 - 32 02/08 [facility] CHEM PANEL Potassium 3.6 3.5 - 5.1 / Lv [facility] CHEM PANEL AGAP 9.6 10.0 - 07 MH 20.0 /2013 [facility] CHEM PANEL Chloride Lvl 100 95 - 109 02/08 [facility] CHEM PANEL Uric Acid 7.8 3.8 - 8.0 02/08 [facility] CHEM PANEL Magnesium 2.2 1.8 - 2.4 02/08 [facility] HEMATOLOGY Platelet 185 133 - 450 02/08 [facility] HEMATOLOGY MCHC 33.0 32.0 - 07 36.0 /2013 [facility] HEMATOLOGY MCV 85.4 80.0 - 0710 94.0 /2013 [facility] HEMATOLOGY MCH 28.2 27.0 - 07 MH 31.0 /2013 [facility] HEMATOLOGY Hct 39.5 42.0 - 07 54.0 /2013 [facility] HEMATOLOGY RDW 13.9 11.5 - 07 14.5 /2013 [facility] HEMATOLOGY MPV 8.7 7.4 - 10.4 02/08 [facility] HEMATOLOGY Hgb 13.0 14.0 - 02/08 18.0 /2013 [facility] HEMATOLOGY RBC 4.62 4.70 - 0710 MH 6.10 /2013 [facility] [facility] HEMATOLOGY WBC 5.7 3.7 - 10.4 02/08 [facility] HEMATOLOGY Lymphocytes 24.2 20.0 - 0710 MH 40.0 /2013 [facility] HEMATOLOGY Segs 59.5 45.0 - 07 MH 75.0 /2013 [facility] HEMATOLOGY Basophils 0.3 0.0 - 1.0 02/08 [facility] HEMATOLOGY Monocytes 12.9 2.0 - 12.0 02/08 [facility] HEMATOLOGY Eosinophils 3.1 0.0 - 4.0 02/08 [facility] HEMATOLOGY Segs-Bands # 3.4 1.5 - 8.1 02/08 [facility] HEMATOLOGY Lymphocytes 1.4 1.0 - 5.5 02/08 MH # /2013 [facility] HEMATOLOGY Monocytes # 0.7 0.0 - 0.8 02/08 /2013 [facility] HEMATOLOGY Eosinophils 0.2 0.0 - 0.5 02/08 # /2013 [facility] URINE AND Micro? Performed 02/07 [facility] (02/07/14 12:00 PM) [facility] URINE AND UA Hyal Cast 51-100 0 - 2 02/07 [facility] (02/07/14 12:00 PM) [facility] URINE AND UA RBC 0-2 /HPF 0 - 2 02/07 [facility] URINE AND UA Sq Epi None Seen Few 02/07 [facility] (02/07/14 12:00 PM) /2013 [facility] URINE AND UA WBC 3-5 /HPF None Seen 02/07 STOOL /HPF /2013 [facility] URINE AND UA Bacteria Occasional None Seen 02/07 STOOL /HPF /HPF /2013 [facility] URINE AND UA Ketones Trace Negative 02/07 STOOL *ABN* /2013 [facility] (02/07/14 12:00 PM) URINE AND UA Bili Small Negative 02/07 STOOL *ABN* /2013 [facility] (02/07/14 12:00 PM) URINE AND UA 0.2 0.1 - 1.0 02/07 STOOL Urobilinogen /2013 [facility] URINE AND UA Blood Negative Negative 02/07 [facility] (02/07/14 12:00 PM) [facility] URINE AND UA Leuk Est Negative Negative 02/07 [facility] (02/07/14 12:00 PM) [facility] URINE AND UA Nitrite Negative Negative 02/07 [facility] (02/07/14 12:00 PM) [facility] URINE AND UA Color Yellow Yellow 02/07 STO[facility] *NA* /2013 [facility] (02/07/14 12:00 PM) URINE AND UA Turbidity Clear Clear 02/07 [facility] (02/07/14 12:00 PM) [facility] URINE AND UA Spec Grav 1.025 <=1.030 02/07 STOOL /2013 [facility] URINE AND UA pH 6.0 5.0 - 8.0 02/07 [facility] URINE AND UA Protein Trace Negative 02/07 STOOL *ABN* /2013 [facility] (02/07/14 12:00 PM) URINE AND UA Glucose Negative Negative 02/07 STOOL (02/07/14 12:00 PM) /2013 [facility] ast CARDIAC CK MB Index 0.7 0.0 - 2.5 02/07 ENZYMES /2013 [facility] CARDIAC CK MB 5.2 0.5 - 3.6 02/07 ENZYMES [facility] CARDIAC Troponin-I <0.02 0.00 - 07 ENZYMES 0.40 /2013 [facility] CARDIAC Total CK 741 12 - 191 02/07 ENZYMES [facility] CHEM PANEL Lipase Lvl 102 73 - 393 02/07 [facility] CHEM PANEL eGFR 36 02/07 <sup>3</sup>R esult [facility] Comment: The eGFR is calculated using the [...] PANEL AST 41 0 - 37 02/07 [facility] CHEM PANEL Alk Phos 95 39 - 136 02/07 [facility] CHEM PANEL Bili Total 0.8 0.2 - 1.3 02/07 [facility] CHEM PANEL CO2 27 24 - 32 02/07 [facility] CHEM PANEL Total 7.9 6.4 - 8.4 02/07 Protein [facility] CHEM PANEL Calcium Lvl 9.2 8.5 - 10.5 02/07 [facility] CHEM PANEL ALT 40 0 - 65 02/07 [facility] CHEM PANEL Albumin Lvl 4.1 3.5 - 5.0 02/07 [facility] CHEM PANEL Creatinine 2.4 0.5 - 1.4 02/07 MH Lvl /2013 [facility] CHEM PANEL BUN 26 7 - 22 07/ /2013 [facility] CHEM PANEL Glucose Lvl 100 70 - 99 / <sup>6</sup>I /2013 nterpretive [facility] Data: Adult reference range values reflect the clinical guidelines
of the [place] [employer]. CHEM PANEL Chloride Lvl 98 95 - 109 07/ /2013 [facility] CHEM PANEL Potassium 3.1 3.5 - 5.1 07/ MH Lvl /2013 [facility] CHEM PANEL Sodium Lvl 135 135 - 145 07/ /2013 [facility] CHEM PANEL Globulin 3.8 2.0 - 4.0 07/ /2013 [facility] CHEM PANEL B/C Ratio 11 6 - 25 / /2013 [facility] CHEM PANEL AGAP 13.1 10.0 - 07 MH 20.0 /2013 [facility] CHEM PANEL A/G Ratio 1.1 0.7 - 1.6 02/07 /2013 [facility] HEMATOLOGY RDW 13.9 11.5 - 02/07 MH 14.5 /2013 [facility] HEMATOLOGY MCHC 33.3 32.0 - 07/ MH 36.0 /2013 [facility] HEMATOLOGY MPV 8.7 7.4 - 10.4 07/ MH /2013 [facility] HEMATOLOGY Platelet 236 133 - 450 / MH /2013 [facility] HEMATOLOGY MCH 28.3 27.0 - 07/ MH 31.0 /2013 [facility] HEMATOLOGY MCV 84.9 80.0 - 07/ MH 94.0 /2013 [facility] HEMATOLOGY Hct 43.9 42.0 - 07/ MH 54.0 /2013 [facility] HEMATOLOGY WBC 8.4 3.7 - 10.4 / /2013 [facility] HEMATOLOGY RBC 5.18 4.70 - 07/ MH 6.10 /2013 [facility] HEMATOLOGY Hgb 14.6 14.0 - 07/ MH 18.0 /2013 [facility] HEMATOLOGY Eosinophils 0.1 0.0 - 0.5 07/09 MH # /2013 [facility] HEMATOLOGY Segs-Bands # 5.7 1.5 - 8.1 / MH /2013 [facility] HEMATOLOGY Lymphocytes 1.5 1.0 - 5.5 /09 MH # /2013 [facility] HEMATOLOGY Monocytes # 1.0 0.0 - 0.8 07/ MH /2013 [facility] HEMATOLOGY Eosinophils 1.5 0.0 - 4.0 / /2013 [facility] HEMATOLOGY Segs 67.6 45.0 - 07/09 75.0 /2013 [facility] HEMATOLOGY Lymphocytes 18.4 20.0 - 02/07 MH 40.0 [facility] HEMATOLOGY Monocytes 11.9 2.0 - 12.0 02/07 [facility] HEMATOLOGY Basophils 0.6 0.0 - 1.0 02/07 [facility] IMMUNOLOGY [facility] [facility] HIV 4th Negative Negative 02/07 GEN (02/07/14 7:45 AM) /2013 [facility] CHEMISTRY Magnesium 2.3 1.8 - 2.4 07/21 Normal Lvl [facility] CHEMISTRY Phosphorus 4.4 2.5 - 4.5 07/21 Normal [facility] CHEMISTRY BNP 23 <=100 07/21 Normal <sup>11</sup> Interpretive [facility] Data: Elevated results are in line with [...] BUN 16 7 - 22 07/21 Normal [facility] CHEMISTRY Creatinine 1.0 0.5 - 1.4 07/21 Normal Lvl [facility] CHEMISTRY Sodium Lvl 137 135 - 145 07/21 Normal [facility] CHEMISTRY Potassium 4.4 3.5 - 5.1 07/21 Normal MH Lvl /2012 [facility] CHEMISTRY Chloride Lvl 105 95 - 109 12 Normal MH /2012 [facility] CHEMISTRY CO2 24 24 - 32 12/ Normal MH /2012 [facility] CHEMISTRY Calcium Lvl 8.6 8.5 - 10.5 / Normal MH /2012 [facility] CHEMISTRY Glucose Lvl 107 70 - 99 12/ HI <sup>8</sup>I /2012 nterpretive [facility] Data: Adult reference range values reflect the clinical guidelines
of the [place] [employer]. CHEMISTRY AGAP 12.4 10.0 - 12 Normal MH 20.0 /2012 [facility] HEMATOLOGY RDW 14.3 11.5 - 12 Normal MH 14.5 /2012 [facility] HEMATOLOGY MCHC 32.8 32.0 - 12 Normal MH 36.0 /2012 [facility] HEMATOLOGY MCH 28.3 27.0 - 12 Normal MH 31.0 /2012 [facility] HEMATOLOGY MCV 86.4 80.0 - 07/21 Normal MH 94.0 /2012 [facility] HEMATOLOGY Platelet 243 133 - 450 07/21 Normal MH /2012 [facility] HEMATOLOGY MPV 10.0 7.4 - 10.4 07/21 Normal MH /2012 [facility] HEMATOLOGY WBC X 10x3 11.1 3.7 - 10.4 / HI MH /2012 [facility] HEMATOLOGY Hgb 12.3 14.0 - 12 LOW MH 18.0 /2012 [facility] HEMATOLOGY RBC X 10x6 4.33 4.70 - 12 LOW MH 6.10 /2012 [facility] HEMATOLOGY Hct 37.4 42.0 - 07/21 LOW MH 54.0 /2012 [facility] HEMATOLOGY Monocytes 7.1 2.0 - 12.0 07/21 Normal MH /2012 [facility] HEMATOLOGY Eosinophils 4.6 0.0 - 4.0 12/20 HI MH /2012 [facility] HEMATOLOGY Lymphocytes 12.1 20.0 - 12 LOW MH 40.0 /2012 [facility] HEMATOLOGY Segs 75.8 45.0 - 12 HI MH 75.0 /2012 [facility] HEMATOLOGY Lymphocytes 1.3 1.0 - 5.5 / Normal MH # /2012 [facility] HEMATOLOGY Segs-Bands # 8.4 1.5 - 8.1 / HI MH /2012 [facility] HEMATOLOGY Monocytes # 0.8 0.0 - 0.8 07/21 Normal MH /2012 [facility] HEMATOLOGY Eosinophils 0.5 0.0 - 0.5 / Normal MH # /2012 [facility] HEMATOLOGY Basophils # 0.0 0.0 - 0.2 07/21 Normal [facility] HEMATOLOGY Basophils 0.4 0.0 - 1.0 07/21 Normal [facility] CHEMISTRY Vanco Tr TND See eMAR 07/20 [facility] CHEMISTRY Vanco Tr 19.3 07/20 <sup>14</sup> Interpretive [facility] Data: Therapeutic Range:
Trough: 10 - 20 ug/mL
Peak: 20 - 40 ug/mL
Potential Toxicity: >80 ug/mL CHEMISTRY Magnesium 2.5 1.8 - 2.4 07/20 HI MH Lvl [facility] CHEMISTRY eGFR 105 07/20 <sup>6</sup>R esult [facility] Comment: The eGFR is calculated using the [...] 25 0 - 65 07/20 Normal AMINOTRANSFE /2012 [facility] RASE CHEMISTRY Calcium Lvl 8.5 8.5 - 10.5 07/20 Normal MH [facility] CHEMISTRY Albumin Lvl 3.4 3.5 - 5.0 07/20 LOW MH [facility] CHEMISTRY Total 7.0 6.4 - 8.4 07/20 Normal Protein [facility] CHEMISTRY ASPARTATE 25 0 - 37 07/20 Normal TRANSAMINASE [facility] CHEMISTRY Alk Phos 78 39 - 136 07/20 Normal [facility] CHEMISTRY Creatinine 1.0 0.5 - 1.4 07/20 Normal Lvl [facility] CHEMISTRY Potassium 3.8 3.5 - 5.1 07/20 Normal MH Lvl /2012 [facility] CHEMISTRY Sodium Lvl 138 135 - 145 07/20 Normal /2012 [facility] CHEMISTRY CO2 24 24 - 32 07/20 Normal /2012 [facility] CHEMISTRY Chloride Lvl 104 95 - 109 07/20 Normal /2012 [facility] CHEMISTRY BUN 16 7 - 22 07/20 Normal /2012 [facility] CHEMISTRY Glucose Lvl 104 70 - 99 07/20 HI <sup>9</sup>I /2012 nterpretive [facility] Data: Adult reference range values reflect the clinical guidelines
of the [place] [employer]. CHEMISTRY Bili Total 0.4 0.2 - 1.3 07/20 Normal /2012 [facility] CHEMISTRY A/G Ratio 0.9 0.7 - 1.6 07/20 Normal /2012 [facility] CHEMISTRY AGAP 13.8 10.0 - 07/20 Normal MH 20.0 [facility] CHEMISTRY B/C Ratio 16 6 - 25 07/20 Normal /2012 [facility] CHEMISTRY Globulin 3.6 2.0 - 4.0 07/20 Normal /2012 [facility] CHEMISTRY BNP 34 <=100 07/20 Normal <sup>12</sup> /2012 Interpretive [facility] Data: Elevated results are in line with increasing severity of
congesti ve heart failure. Minor elevations between 100 and 300
may be seen with Myocardial Ischemia, Sodium retaining drugs,
and compensated/t reated heart failure. CHEMISTRY Phosphorus 3.4 2.5 - 4.5 07/20 Normal /2012 [facility] HEMATOLOGY Lymphocytes 1.8 1.0 - 5.5 07/20 Normal MH # /2013 [facility] HEMATOLOGY Segs-Bands # 7.4 1.5 - 8.1 [...] /2012 [facility] HEMATOLOGY Lymphocytes 16.5 20.0 - 12 LOW MH 40.0 /2012 [facility] HEMATOLOGY Monocytes 9.0 2.0 - 12.0 07/20 Normal MH /2012 [facility] HEMATOLOGY Segs 69.3 45.0 - 07/20 Normal MH 75.0 /2012 [facility] HEMATOLOGY MPV 9.9 7.4 - 10.4 07/20 Normal MH /2012 [facility] HEMATOLOGY Platelet 227 133 - 450 07/20 Normal MH /2012 [facility] HEMATOLOGY RDW 14.1 11.5 - 07/20 Normal MH 14.5 /2012 [facility] HEMATOLOGY MCH 28.0 27.0 - 07/20 Normal MH 31.0 /2012 [facility] HEMATOLOGY MCHC 31.9 32.0 - 07/20 LOW MH 36.0 /2012 [facility] HEMATOLOGY MCV 87.6 80.0 - 07/20 Normal MH 94.0 /2012 [facility] HEMATOLOGY WBC X 10x3 10.7 3.7 - 10.4 07/20 HI MH /2012 [facility] HEMATOLOGY RBC X 10x6 4.38 4.70 - 07/20 LOW MH 6.10 [facility] HEMATOLOGY Hgb 12.2 14.0 - 07/20 LOW MH 18.0 [facility] HEMATOLOGY Hct 38.4 42.0 - 07/20 LOW MH 54.0 [facility] CHEMISTRY Mode Art Rm Air 07/20 Normal MH (07/20/2013 04:40:58) /2012 [facility] CHEMISTRY pCO2 Art 33 35 - 45 07/20 LOW MH /2012 [facility] CHEMISTRY pH Art 7.44 7.35 - 07/20 Normal MH 7.45 /2012 [facility] CHEMISTRY BE Art -1 -2-2 - 2 07/20 Normal MH /2012 [facility] CHEMISTRY HCO3 Art 22 22 - 26 07/20 Normal MH /2012 [facility] CHEMISTRY pO2 Art 83 80 - 100 07/20 Normal MH /2012 [facility] CHEMISTRY Allens Art Positive 07/20 Normal MH (07/20/2013 04:40:58) No [facility] CHEMISTRY Temp Art 37.0 07/20 MH /2012 [facility] CHEMISTRY Site Art Left Rad 07/20 Normal MH (07/20/2013 04:40:58) No rtheast CHEMISTRY O2 Sat Art 96.6 95.0 - 07/20 Normal MH 100.0 [facility] IMMUNOLOGY TB - NIL 0.00 07/19 <sup>16</sup> [...]
For additional information, please refer to
[email or web address](This link is being provided for informational /
educati onal purposes only.)

Test Performed at:
[facility]<br/&g t;[address] [place] [address]
[place] [address] BENJIE BAUTISTA M.D. IMMUNOLOGY Mitogen - 0.10 07/19 NIL /2012 [facility] IMMUNOLOGY NIL 0.01 07/19 [facility] IMMUNOLOGY Quantiferon INDETERMIN NEGATIVE 07/19 ABN <sup>15</sup> MH - TB Gold Result [facility] Comment: Results are indeterminate for
response to ESAT-6,TB7.7 and/or
CFP-10 test antigens. CHEMISTRY Troponin-I 0.03 0.00 - 07/19 Normal MH 0.40 /2012 [facility] CHEMISTRY Total CK 456 12 - 191 07/19 HI /2012 [facility] CHEMISTRY CK-MB INDEX 0.5 0.0 - 2.5 07/19 Normal MH /2012 [facility] CHEMISTRY CK MB 2.2 0.5 - 3.6 07/19 Normal /2012 [facility] CHEMISTRY BNP 104 <=100 07/19 HI <sup>13</sup> MH Interpretive [facility] Data: Elevated results are in line with increasing severity of
congesti ve heart failure. Minor elevations between 100 and 300
may be seen with Myocardial Ischemia, Sodium retaining drugs,
and compensated/t reated heart failure. CHEMISTRY eGFR 81 07/19 <sup>7</sup>R esult [facility] Comment: The eGFR is calculated using the [...] Lvl 8.7 8.5 - 10.5 07/19 Normal [facility] CHEMISTRY CO2 24 24 - 32 07/19 Normal [facility] CHEMISTRY AGAP 13.2 10.0 - 07/19 Normal 20.0 /2012 [facility] CHEMISTRY Potassium 3.2 3.5 - 5.1 07/19 LOW MH Lvl /2012 [facility] CHEMISTRY Chloride Lvl 104 95 - 109 07/19 Normal /2012 [facility] CHEMISTRY Creatinine 1.1 0.5 - 1.4 07/19 Normal Lvl [facility] CHEMISTRY BUN 14 7 - 22 07/19 Normal /2012 [facility] CHEMISTRY Glucose Lvl 116 70 - 99 07/19 HI <sup>10</sup> Interpretive [facility] Data: Adult reference range values reflect the clinical guidelines
of the [place] [employer]. CHEMISTRY Sodium Lvl 138 135 - 145 07/19 Normal /2012 [facility] CHEMISTRY LDL 111 <=99 12/18 HI MH (Calculated) /2012 [facility] CHEMISTRY HDL 29 >=61 12/ LOW MH /2012 [facility] CHEMISTRY Chol 156 <=199 12 Normal MH /2012 [facility] CHEMISTRY Trig 79 <=149 12/ Normal MH /2012 [facility] CHEMISTRY CHD Risk 5.38 4.00 - 12 Normal MH 7.30 /2012 [facility] CHEMISTRY Magnesium 1.7 1.8 - 2.4 07/19 LOW Lvl /2012 [facility] CHEMISTRY Phosphorus 3.2 2.5 - 4.5 07/19 Normal MH /2012 [facility] CHEMISTRY Lactic Acid 1.1 0.5 - 2.2 07/19 Normal Lvl /2012 [facility] HEMATOLOGY Hgb 12.6 14.0 - 07/19 LOW MH 18.0 /2012 [facility] HEMATOLOGY RBC X 10x6 4.49 4.70 - 07/19 LOW MH 6.10 /2012 [facility] HEMATOLOGY MPV 9.8 7.4 - 10.4 07/19 Normal MH /2012 [facility] HEMATOLOGY MCHC 32.5 32.0 - 07/19 Normal MH 36.0 /2012 [facility] HEMATOLOGY RDW 14.6 11.5 - 07/19 HI MH 14.5 /2012 [facility] HEMATOLOGY Hct 38.8 42.0 - 07/19 LOW MH 54.0 /2012 [facility] HEMATOLOGY Platelet 227 133 - 450 07/19 Normal MH /2012 [facility] HEMATOLOGY MCH 28.0 27.0 - 07/19 Normal MH 31.0 /2012 [facility] HEMATOLOGY MCV 86.4 80.0 - 07/19 Normal MH 94.0 /2012 [facility] HEMATOLOGY WBC X 10x3 15.7 3.7 - 10.4 07/19 HI MH /2012 [facility] HEMATOLOGY PB Smear The CBC 07/19 Path and /2012 [facility] peripheral smear from 07/19/2013 , 0526 hours shows mild granulocyt osis without a significan t left shift, mild monocytosi s and mild normochrom ic normocytic anemia. No atypical or immature leukocytes are seen. No schistocyt es or spherocyte s are seen. Platelets are adequate. Simone Calderon M.D. 07/19/2013 , 1126 hours. HEMATOLOGY Monocytes 8.1 2.0 - 12.0 07/19 Normal MH /2012 [facility] HEMATOLOGY Eosinophils 0.3 0.0 - 0.5 / Normal MH # /2012 [facility] HEMATOLOGY Basophils # 0.1 0.0 - 0.2 12/18 Normal MH /2012 [facility] HEMATOLOGY Monocytes # 1.3 0.0 - 0.8 / HI MH /2012 [facility] HEMATOLOGY Eosinophils 1.7 0.0 - 4.0 07/19 Normal MH /2012 [facility] HEMATOLOGY Lymphocytes 1.4 1.0 - 5.5 /18 Normal MH # /2013 [facility] HEMATOLOGY Basophils 0.4 0.0 - 1.0 / Normal MH /2012 [facility] HEMATOLOGY Segs-Bands # 12.7 1.5 - 8.1 / HI MH /2012 [facility] HEMATOLOGY Lymphocytes 8.8 20.0 - 07/19 LOW MH 40.0 /2012 [facility] HEMATOLOGY Segs 81.0 45.0 - 07/19 HI MH 75.0 [facility] IMMUNOLOGY HIV 1/2 Ab Negative Negative 07/19 MH *NA* /2012 [facility] (07/19/2013 05:26:00) BACTERIAL U S pneumo Negative 1 Negative 07/19 Normal <sup>1</sup>R M H - SEROLOGY Ag (07/19/2013 01:00:00) esult [facility] Comment: Collection date/time has been modified to: 01:00:00. Previous collection date/time: 01:00:00. MICRO MISC U Legion Ag Negative 2, 3 Negative 07/19 Normal <sup>2</moreno p>R MH - SEROLOGY (07/19/2013 01:00:00) /2012 esult [facility] Comment: Collection date/time has been modified to: 01:00:00. Previous collection date/time: 01:00:00.<br/ ><sup>3</sup> Interpretive Data: This kit tests for Legionella pneumophila Serogroup 1 Antigen. CHEMISTRY CK MB 2.1 0.5 - 3.6 07/19 Normal MH /2012 [facility] CHEMISTRY CK-MB INDEX 0.5 0.0 - 2.5 07/19 Normal [facility] CHEMISTRY Troponin-I 0.04 0.00 - 07/19 Normal MH 0.40 /2012 [facility] CHEMISTRY Total CK 458 12 - 191 / HI MH /2012 [facility] CHEMISTRY Total CK 458 12 - 191 / HI /2012 [facility] CHEMISTRY Lactic Acid 1.7 0.5 - 2.2 07/19 Normal MH Lvl /2012 [facility] CHEMISTRY pCO2 Art 35 35 - 45 07/18 Normal MH /2012 [facility] CHEMISTRY pH Art 7.44 7.35 - 07/18 Normal MH 7.45 /2013 [facility] CHEMISTRY O2 Sat Art 93.2 95.0 - 07/18 LOW MH 100.0 /2012 [facility] CHEMISTRY pO2 Art 65 80 - 100 07/18 LOW MH /2012 [facility] CHEMISTRY BE Art 0 -2-2 - 2 07/18 Normal MH /2012 [facility] CHEMISTRY HCO3 Art 24 22 - 26 07/18 Normal MH /2012 [facility] CHEMISTRY Site Art Right Ra 07/18 Normal (07/18/2013 13:38:43) No rtheast CHEMISTRY Allens Art Positive 07/18 Normal MH (07/18/2013 13:38:43) No rtheast CHEMISTRY Mode Art Rm Air 07/18 Normal (07/18/2013 13:38:43) No rtheast CHEMISTRY Temp Art 37.0 07/18 [facility] VIRAL - Influ B Negative 4 Negative [...] 0.8 0.0 - 2.5 07/18 Normal MH [facility] CHEMISTRY ASPARTATE 26 0 - 37 07/18 Normal TRANSAMINASE /2012 [facility] CHEMISTRY B/C Ratio 9 6 - 25 07/18 Normal [facility] CHEMISTRY ALANINE 33 0 - 65 07/18 Normal AMINOTRANSFE /2012 [facility] RASE CHEMISTRY Globulin 3.5 2.0 - 4.0 07/18 Normal MH [facility] CHEMISTRY A/G Ratio 1.1 0.7 - 1.6 07/18 Normal [facility] CHEMISTRY Alk Phos 101 39 - 136 07/18 Normal [facility] CHEMISTRY Bili Total 1.0 0.2 - 1.3 07/18 Normal [facility] CHEMISTRY Albumin Lvl 4.0 3.5 - 5.0 07/18 Normal MH [facility] CHEMISTRY Total 7.5 6.4 - 8.4 07/18 Normal Protein [facility] CHEMISTRY Troponin-I 0.03 0.00 - 07/18 Normal 0.40 [facility] CHEMISTRY CK MB 4.4 0.5 - 3.6 07/18 HI [facility] Pathology Reports No Data Provided for This Section Diagnostic Reports Report Value Date Source Carotid artery Clinical Indication: Acute Cerebral Acci dent - R/o cva 04/19/2017 [facility] Doppler bilat US Comparison: None TECHNIQUE: [...] occlusion High, low, or Variable undetectable SL: [id number] Brain wo contrast Clinical Indication: Acute cognitive change [facility] MRI Comparison: Brain MR 07/21/2016 and [...] Indication: Headaches since 12:00 PM; 0 04/18/2017 [facility] Comparison: 07/27/2016 FINDINGS: AP chest radiographs [...] with the exam findings and impression. 04/18/2017 [facility] ast SL: [id number] Clinical Indication: Headache and left face/arm tingling. [...] since the brain CT performed on 02/09/2017. KAITLIN: EMBER Brain wo contrast CT Patient Name: ALLYSON LESLIE [address] [facility] [place] [place] : 1965; Age: 51 years y/o Male MR: [id number] Study: Brain wo contrast CT 02/09/2017 12:35 [...] intracranially similar to the previous exam. SL: VERENICEUSPARE-PC Brain wo contrast CT Patient Name: ALLYSON LESLIE 08/27/[address] [facility] [place] [place] : 1965; Age: 50 years y/o Male MR: [id number] Study: Brain wo contrast CT 08/27/2016 1:45 [...] to be due to volume loss. SL: [id number] Brain/Neck CTA CTA NECK AND BRAIN WITH CONTRAST 07/30/[address] [facility] [place] [place] INDICATION: Seizures, Aphasia, DLP: 2040.09 COMPARISON: None TECHNIQUE: CTA of the neck a nd brain was performed after administration of intravenous contrast. Coronal, sagittal, and 3-D reformatted images were utilized. DISCUSSION: Image detail is degraded by motion artifacts. In addition, there is suboptimal timing of the contrast bolus, with poor opacification of the [place] and overlapping venous opacification. Evaluation [...] patent. 2. Grossly unremarkable CTA of the [place] of [place]. SL:16 Brain wo contrast MRI BRAIN WITHOUT CONTRAST 07/29/[address] [facility] [place] [place] MRI INDICATION: Ataxia COMPARISON: CT brain 07/27/2016 [...] Patient Name: ALLYSON LESLIE 07/27/[address] [facility] [place] [place] : 1965; Age: 50 years y/o Male MR: [id number] * CHEST, portable, 1 view HISTORY: Chest [...] No active disease. 2. Moderate cardiomegally. SL: [id number] Brain wo contrast CT EXAM: CT BRAIN WITHOUT CONTRAST 07/27/[address] [facility] [place] [place] DATE: 07/27/2016 11:29 AM CAPTAIN WAITER INDICATION: Weakness. Headache. Left-sided numbn ess. ADDITIONAL [...] change compared to 02/18/2016. 03/07/[address] [facility] [place] IMPRESSION: No acute radiographic abnormality in the chest. SL [id number] Chest w contrast CT CT CHEST WITH CONTRAST, WITH PULMONARY E MBOLUS PROTOCOL 02/18/[address] [facility] [place] [place] INDICATION: Syncope COMPARISON: CT chest 08/15/2014 and [...] contrast CT CT BRAIN WITHOUT CONTRAST 02/18/2016 [facility] INDICATION: Syncope, possible seizure, headache COMPARISON: None DISCUSSION: There is no evidence of a cute vascular insults, space occupying lesions, hemorrhage, hydrocephalus, midline shift, or extra-axial fluid collections. The calvarium is intact. IMPRESSION: No acute intracranial abnormalities are visua lized. SL:16 Chest 1view DX Study: Chest 1view DX portable 02/18/2016 1234 h ours 02/18/[address] [facility] [place] [place] Clinical Indication: Chest pain; Comparison: Chest 08/14/2014 FINDINGS: The cardiac silhou ette is top normal in size. The mediastinum is not remarkable. The lungs are incompletely i nflated. No pneumonia, vascular congestion or pleural effusion is seen. Thoracic spondylosis is note d and minor degenerative changes involve the shoulders. IMPRESSION: No acute abnormality. SL: [id number] Renal Stone CT Name: ALLYSON LESLIE 11/22/2014 [...] 24 Chest 1view NAME: ALLYSON LESLIE 02/07/2014 [facility] : 1965 SEX: M 39 [...] 1965 SEX: M 41 Ordering Physician: Eldon Cmailo Chest 2 views : Nov 29, 2013 [...] Chest 1view Name: ALLYSON LESLIE [facility]20/2013 [facility] 1965 SEX: M Ordering Physician: Ngozi [...] Comments Source Systolic (mm Hg) 130 04/21/2017 [facility] t Diastolic (mm Hg) 82 04/21/2017 [facility] st Heart Rate 63 04/21/2017 [facility] Respitory Rate 19 04/21/2017 [facility] Temperature Oral (F) 98.4 F 04/21/2017 [facility] Height 180.34 cm 04/21/2017 [facility] BMI Calculated 31.45 04/21/2017 [facility] Weight 102.273 04/21/2017 [facility] Respitory Rate 18 04/19/2017 [facility] Systolic [...] Calculated 36.69 04/18/2017 [facility] Weight 100 04/18/2017 [facility] Height 165.1 cm 04/18/2017 [facility] Heart Rate [...] [facility] t Diastolic (mm Hg) 70 [facility] Oral (F) 98.4 F 08/17/2014 [facility] BMI Calculated 35.57 08/14/2014 [facility] Weight 96.96 08/14/2014 [facility] Height 165.1 cm 08/14/2014 [facility] Weight 96.96 08/14/2014 [facility] BMI Calculated 35.57 08/14/2014 [facility] Height 165.1 cm 08/14/2014 [facility] Weight 113.636 08/14/2014 [facility] BMI Calculated 41.69 08/14/2014 [facility] Height 165.1 cm 08/14/2014 [facility] Diastolic (mm Hg) 82 05/13/2014 [facility] Systolic (mm Hg) 120 05/13/2014 [facility] Heart Rate 78 05/13/2014 [facility] Respitory Rate 20 05/13/2014 [facility] Temperature Oral (F) 98.6 F 05/13/2014 [facility] Temperature Oral (F) 98.5 F 05/13/2014 [facility] Respitory Rate 20 05/13/2014 [facility] Systolic (mm Hg) 114 05/13/2014 [facility] Heart Rate 85 05/13/2014 [facility] Diastolic (mm Hg) 76 05/13/2014 [facility] Temperature Oral (F) 98.7 F 05/13/2014 [facility] Diastolic (mm Hg) 80 05/13/2014 [facility] Center Respitory Rate 18 05/13/2014 [facility] Heart Rate 82 05/13/2014 [facility] Systolic (mm Hg) 128 05/13/2014 [facility] Center Weight 97.727 05/09/2014 [facility] Height 165.1 cm 05/09/2014 [facility] BMI Calculated 35.85 05/09/2014 [facility] Center Weight 97.727 05/09/2014 [facility] Height 165.1 cm 05/09/2014 [facility] Weight 113.636 05/09/2014 [facility] Height 165.1 cm 05/09/2014 [facility] BMI Calculated 41.69 05/09/2014 [facility] Respitory Rate 16 05/09/2014 [facility] Heart Rate 90 05/09/2014 [facility] Diastolic [...] cm 07/19/2013 [facility] Height 165.1 cm 07/18/2013 [facility] Weight 97.727 07/18/2013 [facility] Encounters Location Location Encounter Encounter Reason Attending ADM DC Stat us Source Details Type Number For Provider Date Date Visit Not Sent Inpatient [id number] NGOZISylvia PIERRE 07/18 07/21 Ruby diaz 0 II ed [facility] [place] [id number] Cliff Oleary 11/29 11/29 M [facility] Inpatient [id number] Yady 02/07 02/09 [facility] [place] [id number] Jaskaran Yi 05/08 05/09 [place] [facility] Inpatient [id number] Jaskaran Yi 05/09 05/13 [facility] Ulcien [facility] Inpatient [id number] Abilio Obi 08/14 08/18 [facility] [id number] Kristen 11/22 11/22 [place] [facility] 5 [facility] [place] [id number] Wilfred Hogan 02/17 02/17 [place] [facility] [place] [id number] Stanley Mendez 03/07 03/07 [place] [facility] OP Therapy [id number] Norman De Guzman 05/26 06/25 [facility] 0 [facility] OP Therapy [id number] Norman De Guzman 07/10 08/09 [facility] 1 [facility] Inpatient [id number] Khris 07/27 07/30 Lucien 8 Moon /2015 [facility] Emergency [id number] Jim Trujillo 08/27 08/27 [facility] Outpatient [id number] [facility] 09/14 [facility] A [facility] Outpatient [id number] JEAN 10/01 [facility] 3 A [place] [facility] [id number] JEAN 01/11 Act [facility] 2 A [place] [facility] [id number] [facility] [facility] 4 A [facility] Outpatient [id number] 02/09 02/10 [facility] [id number] [facility] Observation [id number] Amena 04/18 04/19 Lucien 1 Jose /2016 [facility] [id number] Jaskaran Brown 04/21 04/21 [facility] Outpatient [id number] [facility] [facility] 5 A [place] [facility] Phone [id number] 11/04 11/06 [facility] er Neurology Message [facility] Procedures Procedure Code Date Perfomer Comments Source MRI of brain and [id number] 07/29/2016 [facility] brain stem Neuro,[facility] Angioplasty of [id number] [facility] blood vessel Neuro,[facility] [place] [place] Hand repair [id number] [facility] Neuro,[facility] Assessment and Plan Assessment and Plan Date Source Extracted from:Title: Clinical Document 04/19/2017 [place] Author: Manohar Pope MD Date: 04/19/17 Patient admitted to my service on 2016, discharged on 04/19/2017. He can go back to his rehabilitation center without any restriction. Please call me if there is ryann question (Shivam Pope MD. [phone]) Extracted from:Title: Hospitalist H&P * Author: Amena [...] full code Extracted from:Title: Progress Note 07/30/2016 [facility] Author: Rin Morales Date: 07/30/16 Progress Note - Daily [facility] Completed: , JUL 30, 2016, [...] is a 50 y/o right-hand lisa nant -Ind[place]ian male c PMH of CVA in 04/2016 c residual L hemiparesis and mild dysarthria, HTN, HLD, ETOH abuse, tobacco abuse who presented to [facility] followi ng episode of increased L [...] reporting is ready to quit -- per [place] state law, pt is not to dri [...] Morales Date: 07/28/16 Patient: ALLYSON LESLIE RN: [id number] Age: 50 years Sex: Male : 1965 Associated Diagnoses: None Author: Rin Morales Basic Information Mr. Leslie is a 50 y/o right-hand lisa nant -Indonesian male c PMH of CVA in 04/2016 c residual L hemiparesis and mild dysarthria, HTN, HLD, ETOH abuse, tobacco abuse who presented to [facility] followi ng episode of increased L [...] is a 50 y/o right-hand lisa nant -Indonesian male c PMH of CVA in 04/2016 c residual L hemiparesis and mild dysarthria, HTN, HLD, ETOH abuse, tobacco abuse who presented to [facility] followi ng episode of increased L [...] movie, then went back to bed around 2700-5834 at which time pt was in his [...] CHF (congestive heart failure) / SNOMED CT [id number] / Confirmed CVA (cerebral vascular accident) / SNOMED CT 914902189 / Con firmed HTN - Hypertension / SNOMED CT 3216925170 / Confirmed Hypercholesterolemia / SNOMED CT 13179736 / Confirmed Histories Past Medical History: Active CHF (congestive heart failure) (P9317156 [id number]): Onset in 2012 at 47 years. HTN - Hypertension (0502209439) Hypercholesterolemia (17615836) CVA (cerebral vascular accident) (006327474) Resolved Diabetes ([id number]): Resolved. Spider bite wound (7459354374): Resolved. Syncope (109777732): Resolved. H/O: stroke (6425735309): Resolved. Family History: Type 1 diabetes mellitus Mother Sister Father High blood pressure Father Mother Migraine Father Stroke Father Alzheimer's disease Father Osteoarthritis Father Procedure history: Hand repair ([id number]). Social History Social and Psychosocial Habits Alcohol [...] that day, so he instead went to ma s new job and did not get [...] including deltoid, biceps, t riceps, wrist extension, electronic installer, iliopsoas , quadriceps, anterior tibialis, gastrocnemius and extensor hallucis longus. Left upper and lower extremities including deltoid 5-/5, biceps 5-/5, triceps 4+-5-/5 , wrist extension 5-/5, electronic installer 5-/5, iliop soas 4+-5-/5, quadriceps 5-/5, anterior [...] is a 50 y/o right-hand lisa nant -Indonesian male c PMH of CVA in 04/2016 c residual L hemiparesis and mild dysarthria, HTN, HLD, ETOH abuse, tobacco abuse who presented to [facility] followi ng episode of increased L [...] reporting is ready to quit -- per [place] state law, pt is not to dri [...] note. Extracted from:Title: WORK EXCUSE 08/18/2014 TIM gandhi Author: Ngozi Schmitz DO Date: 08/17/14 EXCUSE [...] to influenza infection. Extracted from:Title: Hand 05/13/2014 [facility] Author: Michael Randolph MD Date: 05/13/14 Doing [...] wave sim vation. He was evaluated by j2ee architect overnight who found his chest pain to [...] evaluation. Cher Maxwell MD PGY-1, Anesthesiology Pager [phone] Addendum by Arnulfo Santiago MD on 05/11/2014 [...] Author: Marcelina Delgadillo MD Date: 05/09/14 Patient: ANUJALLYSON RN: [id number] Age: 48 years Sex: Male : 1965 [...] mg, PO, Q12H cefTRIAXone: 1 gm, IVPB, [id number] docusate: 100 mg, 1 cap, PO, BID [...] CHF (congestive heart failure) / SNOMED CT [id number] / Confirmed HTN - Hypertension / SNOMED CT 3991874626 / Confirmed Hypercholesterolemia / SNOMED CT 03401798 / Confirmed Histories Past Medical History: Active CHF (congestive heart failure) (E4168055 [id number]): Onset in 2012 at 47 years. HTN - Hypertension (3971184296) Hypercholesterolemia (92490950) Resolved Diabetes ([id number]): Resolved. Social History Social and Psychosocial Habits [...] 5. DVT ppx heparin 6. Full Code [facility] is primary Addendum by Radha Chu MD [...] Jose Jackson MD Date: 02/08/14 Consultation Dictated. Revenue Stamp Cutter pending. 1. dehydration 2. DARSHAN 3. Rhabdomyolysis 4. chronic systolic HF - compensated - Cr better. stop IV fluids - lasix stopped by PCP and placed on HCTZ. - check echo to see what EF is. if still low will need ische william w/up. Plan of Care No Data Provided for This Section Social History Social History Date Source Social History TypeResponse 09/14/2016 [facility] Substance Abuse Use: None. Employment/School Status: Employed. [...] beer a day. Social History TypeResponse 09/14/2016 [facility] Caleb mcintosh Substance Abuse Use: [...] beer a day. Social History TypeResponse 07/27/2016 [facility] Substance Abuse Use: None. Employment/School Status: [...] beer a day. Social History TypeResponse 02/07/2014 [facility] Substance Abuse Use: None Employment/School Status: Employed [...]
--- OUTSIDE RECORDS SUMMARY | 2020-09-05 13:11 | XMS REPORT | Continuity of Care Document ---
:1965 Author Organization [facility] t Address [address] [place] [address] Care Team Providers Name Role Phone Demian [...] Alcohol Problem Active [place] [facility] Insomnia Insomnia Problem Active Miranda ge 08-25 Family 00:00: Practic 00 e Hypertensi Hypertensi Problem Active [facility] ve ve 08-25 Family disorder Disorder 00:00: Practi c e Congestive Congestive Problem Active [place] [facility] heart Heart 08-25 Family failure Failure 00:00: Practic 00 e Seizure Seizure Problem Active [facility] 08-25 Family 00:00: Practic e History of History of Problem Active [place] cerebrovas Cerebrovas 08-25 [facility] culma cular 00:00: Practic accident Accident 00 e without without residual Residual deficits Deficits GOMES Diagnosis Active 2017-04-21 Mem oria 04-20 02:25:00 l GOMES 08:00: [place] 00 Active 04/20/2017 [facility] HEADACHE Diagnosis Active 2017-04-18 M emoria 04-18 19:02:00 l HEADACHE 00:00: [place] 00 Active 04/18/2017 [place] I63.9 Diagnosis Active 2017-02-09 Mem oria STROKE, 02-09 12:12:00 l R58 I63.9 12:00: [place]ien HEMORRHAGE STROKE, 00 R58 HEMORRHAGE Active 02/09/2017 [facility] STROKE Diagnosis Active 2016-12-10 [facility] oria 2 16:34:00 l STROKE 00:00: [place] 00 Active 09/24/2016 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 SEIZURE Diagnosis Active 2016-08-27 Or moria 14:47:00 l SEIZURE 00:00: [place] 00 Active 08/27/2016 [facility] ACUTE Diagnosis Active 2015-082016-07-28 Mem oria CEREBROVAS 09-27 12:07:00 l CULAR ACUTE 00:00: [place] ACCIDENT CEREBROVAS 00 CULAR ACCIDENT Active 07/27/2016 [facility] ARM Diagnosis Active 2015-082016-07-27 Mem oria WEAKNESS, 09-27 11:50:00 l FACIAL ARM 00:00: [place] DROOP WEAKNESS, 00 FACIAL DROOP Active 07/27/2016 [facility] CHEST PAIN Diagnosis Active 2016-03-07 Memoria 03-07 14:11:00 l CHEST 00:00: [place] PAIN 00 Active 03/07/2016 [facility] SYNCOPE Diagnosis Active 2016-02-18 Or moria 02-17 14:55:00 l SYNCOPE 00:00: [place] 00 Active 02/18/2016 [facility] BACK PAIN Diagnosis Active 2014-11-22 Memoria 11-20 17:10:00 l BACK 09:00: [place] PAIN 00 Active 11/20/2014 [facility] SHORTNESS Diagnosis Active 2015-02-20 Memoria OF BREATH 1- 10:16:00 l 05:00: [place] SHORTNESS 00 OF BREATH Active 08/14/2014 [facility] OTHER Diagnosis Active 2013-082014-05-09 Mem oria TENOSYNOVI 0-08 03:18:00 l TIS OF OTHER 00:00: [place] HAND AND TENOSYNOVI 00 WRIST TIS OF HAND AND WRIST Active 05/09/2014 [facility] HAND EDEMA Diagnosis Active 2013-082014-05-09 Memoria 0-07 00:38:00 l HAND 00:00: [place] EDEMA 00 Active 05/08/2014 [facility] HAND Diagnosis Active 2013-082014-05-17 Mem oria INFECTION 0-02 21:53:00 l HAND 00:00: [place] INFECTION 00 Active 05/03/2014 [facility] ABDOMINAL Diagnosis Active 2014-02-08 Memoria PAIN 02-07 13:31:00 l 04:00: [place] ABDOMINAL 00 PAIN Active 02/07/2014 [facility] SPITTING Diagnosis Active 2013-11-29 M emoria UP BLOOD 11-28 05:06:00 l SPITTING 00:00: [place] UP BLOOD 00 Active 11/28/2013 [facility] FLU LIKE Diagnosis Active 2012-082013-07-20 M emoria SYMPTOMS 2-17 01:36:00 l FLU LIKE 00:00: [place] SYMPTOMS 00 Active 07/18/2013 [facility] Congestive Problem Active 2018-02-11 M emoria heart 1- 13:48:01 l failure 00:00: [place] (disorder) Congestive 00 heart failure (disorder) Active 08/02/2012 Problem 02/11/2018 [facility], [facility] Diabetes Problem Resolve 2018-02-11 Me moria mellitus d 13:48:01 l (disorder) Diabetes He rmann mellitus (disorder) Resolved Problem 02/11/2018 [facility], [facility] History of Problem Resolve 2018-02-11 Memoria - CVA d 13:48:01 l (context-d History [place] ependent of - CVA category) (context-d ependent category) Resolved Problem 02/11/2018 [facility], [facility] Spider Problem Resolve 2018-02-11 Mike una bite wound d 13:48:01 l (disorder) Spider Herm lexy bite wound (disorder) Resolved Problem 02/11/2018 [facility], [facility] Syncope Problem Resolve 2018-02-11 Mem oria (disorder) d 13:48:01 l Syncope [place] (disorder) Resolved Problem 02/11/2018 [facility], [facility] Cerebrovas Problem Active 2018-02-11 M emoria cular 13:48:01 l accident Lucien (disorder) Cerebrovas cular accident (disorder) Active Problem 02/11/2018 [facility], [facility] Hyperchole Problem Active 2018-02-11 M emoria sterolemia 13:48:01 l (disorder) [place]vin n Hyperchole sterolemia (disorder) Active Problem 02/11/2018 [facility], [facility] Obesity Problem Active 2018-02-11 Mike una (disorder) 13:48:01 l Obesity [place] (disorder) Active Problem 02/11/2018 [facility], [facility], [facility] CHF NOS Diagnosis Active 2013-07-20 Or moria 01:36:00 l CHF NOS Lucien Active [facility] RENAL Diagnosis Active 2014-02-08 Mem oria FAILURE 13:31:00 l NOS RENAL [place] FAILURE NOS Active [facility] BACTERIAL Diagnosis Active 2014-05-17 Memoria INFECTION 21:53:00 l NOS Lucien BACTERIAL INFECTION NOS Active [facility] SEPTICEMIA Diagnosis Active 2015-02-20 Memoria NOS 10:16:00 l Lucien SEPTICEMIA NOS Active [facility] LEFT SIDE Diagnosis Active 2016-11-26 Memoria - STROKE 21:56:00 l LEFT Lucien SIDE - STROKE Active [facility] CEREBRAL Diagnosis Active 2017-02-09 M emoria INFARCTION 12:12:00 l , CEREBRAL Delvin n UNSPECIFIE INFARCTION D , UNSPECIFIE D Active [facility] ALCOHOL Diagnosis Active 2016-08-07 Me moria 14:30:00 l ALCOHOL Lucien Active [facility] HEMORRHAGE Diagnosis Active 2017-02-09 Memoria , NOT 12:12:00 l ELSEWHERE Lucien CLASSIFIED HEMORRHAGE , NOT ELSEWHERE CLASSIFIED Active [facility] ANESTHESIA Diagnosis Active 2017-04-18 Memoria OF SKIN 19:02:00 l [place] ANESTHESIA OF SKIN Active [facility] Headache Problem 2017-04-24 2017-04-24 Memoria 9-20 04:47:52 04:47:52 l Headache 05:00: [place] n 00 04/21/2017 04/24/2017 [facility] Discharge Problem 2016-2016-08-30 2016-08-30 Memoria Diagnosis: 08-27 04:32:05 04:32:05 l Seizure 06:00: [place] Discharge 00 Diagnosis: Seizure 08/27/2016 08/30/2016 [facility] Discharge Problem 2015-2016-03-10 2016-03-10 Memoria Diagnosis: 03-07 01:50:45 01:50:45 l Acute 05:00: [place] viral Discharge 00 syndrome Diagnosis: Acute viral syndrome 6 03/10/2016 [facility] Discharge Problem 2016-03-10 2016-03-10 Memoria Diagnosis: 03-07 01:50:45 01:50:45 l Atypical 05:00: [place] chest pain Discharge 00 Diagnosis: Atypical chest pain 03/07/2016 03/10/2016 [facility] Discharge Problem 2016-03-10 2016-03-10 Memoria Diagnosis: 8- 01:50:45 01:50:45 l Acute 05:00: [place] hypokalemi Discharge 00 a Diagnosis: Acute hypokalemi a 03/07/2016 03/10/2016 [facility] Discharge Problem 2016-02-21 2016-02-21 Memoria Diagnosis: 02-17 04:59:11 04:59:11 l Syncope 05:00: [place] Discharge 00 Diagnosis: Syncope 02/18/2016 02/21/2016 [facility] Discharge Problem 2016-02-21 2016-02-21 Memoria Diagnosis: 02-17 04:59:11 04:59:11 l Tonic 05:00: [place] seizure Discharge 00 Diagnosis: Tonic seizure 02/18/2016 02/21/2016 [facility] Discharge Problem 2014-11-25 2014-11-25 Memoria Diagnosis: 4- 05:15:16 05:15:16 l Muscle 05:00: [place] strain Discharge 00 Diagnosis: Muscle strain 11/22/2014 11/25/2014 [facility] Discharge Problem 2014-11-25 2014-11-25 Memoria Diagnosis: 4 05:15:16 05:15:16 l Flank pain 05:00: [place] Discharge 00 Diagnosis: Flank pain 11/22/2014 11/25/2014 [facility] Discharge Problem 2013-12-02 2013-12-02 Memoria Diagnosis: 11-29 00:31:18 00:31:18 l Acute 05:00: [place] bronchitis Discharge 00 Diagnosis: Acute bronchitis 11/29/2013 12/02/2013 [facility] Allergies, Adverse Reactions, Alerts This patient has no known allergies or adverse reactions. Social History Social Habit Start Date Stop Date Quantity Comments Source History of tobacco Cigarette Smoker [place] use Jain Sex Assigned At [place] Jain Cigarettes smoked 2016-09-20 2016-09-20 [place] current (pack per 00:00:00 00:00:00 Method) - Reported Alcohol intake 2016-09-20 2016-09-20 Current drinker [place] 00:00:00 00:00:00 of alcohol Jain (finding) Social History 2014-02-07 2014-02-07 [facility] rudolphlexy 20:46:39 20:46:39 Smoking Status Start Date Stop Date Source Heavy Tobacco Smoker [facility] Current every day smoker 2016-09-20 00:00:00 [facility] Medications Ordered Filled Start Stop Current Ordering Indication Dosage Frequency Signature Comments Components Source Medication Medication Date Date Medication? Clinician (SIG) Name Name topiramate Yes See Memoria 25 MG Oral 9-18 Instructio l Tablet 15:10: ns, 1 tab [place] [Topamax] 00 PO BID for 7 days, then 2 tab PO BID thereafter , # 70 tab, 0 Refill(s), Pharmacy: [id number] clopidogrel Yes 75 mg = 1 M emoria 75 MG Oral 9-18 tab, PO, l Tablet 14:27: Daily, # Lucien [Plavix] 55 30 tab, 0 Refill(s), Pharmacy: [id number] NIFEdipine Yes 60 mg = 1 Me moria 60 mg oral 9-18 tab, PO, l tablet, 14:26: Daily, # [place]vin [place] extended 00 30 tab, 0 release Refill(s), Pharmacy: [id number] carvedilol Yes 25 mg = 1 Me moria 25 mg oral 9-18 tab, PO, l tablet 14:26: BID, # 60 Delvin n 00 tab, 0 Refill(s), Pharmacy: [id number] atorvastati Yes 20 mg = 1 M emoria n 20 mg 9-18 tab, PO, l oral tablet 14:26: Bedtime, # [place] 00 30 tab, 0 Refill(s), [facility]: [id number] Aspirin 325 2016- Yes 325 mg = 1 Memoria MG Enteric 9-18 tab, PO, l Coated 14:26: Daily, # [place] Tablet 00 100 tab, 0 Refill(s), Pharmacy: [id number] sacubitril 2016- Yes 1 tab, PO, M emoria 97 MG / 9-18 BID, # 60 l valsartan 14:26: tab, 0 Delvin n 103 MG Oral 00 Refill(s), Tablet Pharmacy: [id number] heparin No Notes: Memoria sodium, [...] ia 04-19 Give with l 02:00: food. Lucien 00 (Same As: Coreg) [place] Yes 1 tab, PO, M emoria wort oral 04-19 [id number], 0 l capsule 01:57: Refill(s) Adrienne nn 00 Ibuprofen Yes 800 mg, Memor ia 04-19 PO, BID, 0 l 01:55: Refill(s) [place] 00 gabapentin Yes 300 mg = 1 [...] 04-18 not exceed l 22:33: 4 gm/day. Lucien [...] - (Same l Oral Tablet 03:00: as:Keppra) [place] [Keppra] 00 Omnipaque 2015-08 No Notes: Memori [...] tab, PO, l Tablet 20:37: Daily, # [place] 00 50 tab, 0 Refill(s) Aspirin 2015-08 No Notes: Memoria 2-28 Take with l 15:00: food. Ambien 2015-08 No Notes: Memoria 2-28 (Same As: l 03:30: Ambien) Chlordiazep 2015-08 No 25 mg, 1 Me moria oxide 2-27 cap, l Hydrochlori 23:00: Route: PO, Lucien de 25 MG 00 Drug form: Oral CAP, QID, Capsule Dosing Weight 97.727, kg, Start date: 07/28/16 17:00:00 PSYCHOLOGY TECHNICIAN, Duration: 30 day, Stop date: 08/27/16 13:00:00 PSYCHOLOGY TECHNICIAN Keppra 2015-08 No 1,000 mg, Memori a 2-27 100 mL, l 20:54: Route: Lucien 00 IVPB, Drug form: INJ, Q12H, Dosing Weight 97.727, kg, Priority: NOW, Start date: 07/28/16 14:54:00 PSYCHOLOGY TECHNICIAN, Duration: 30 day, Stop date: 08/27/16 9:00:00 PSYCHOLOGY TECHNICIAN Levetiracet 2015-08 No 1,000 mg, M emoria am 1000 MG 2-27 Route: PO, l Oral Tablet 20:53: Drug form: [place] [Keppra] 00 TAB, Q12H, Dosing Weight 97.727, kg, Priority: NOW, Start date: 07/28/16 14:53:00 PSYCHOLOGY TECHNICIAN, Duration: 30 day, Stop date: 08/27/16 9:00:00 PSYCHOLOGY TECHNICIAN Benzocaine 2015-08 No Notes: Memor ia 15 [...] 97.727, kg, BID, Start date: 07/28/16 9:00:00 PSYCHOLOGY TECHNICIAN, Duration: 30 day, Stop date: 08/26/16 17:00:00 PSYCHOLOGY TECHNICIAN Ativan 2015-08 No Notes: Memoria 2-27 (Same as: l 10:38: Ativan) Lucien 00 Saline 2015-08 No Notes: Memoria Flush 0.9% 2-27 Same as: l 03:00: BD Lucien 00 Posiflush Sterile Lipitor 2015-08 No Notes: Memoria 2-27 (Same As: l 03:00: Lipitor) [place] 00 sacubitril- 2015-08 No Notes: Mike una valsartan 2-27 (Same as: l 03:00: Entresto) [place] 00 Avoid in patients with history of angioedema due to BECKY inhibitor or ARB therapy. Do not use concomitan tly or within 36 hours of BECKY inhibitors Clonidine 2015-08 No Notes: Memori a Hydrochlori -27 (Same As: l de 0.2 MG 02:28: Catapres) [place] west Oral Tablet 00 Tylenol 2015-08 No Notes: Do Memor ia 2-27 not exceed l 02:25: 4 gm/day. [place] 00 (Same as: Tylenol) Saline 2015-08 No Notes: Memoria Flush 0.9% 2- Same as: l 01:29: BD Lucien 00 Posiflush Sterile 24 HR 2015-08 No Notes: [...] Memoria 2-26 (Same as: l 22:22: Ativan) [place]ien 00 pneumococca 2015-08 No Notes: Mike una [...] MG / 09-27 BID l valsartan 20:48: [place] 51 MG Oral 00 Tablet [Entresto] Aspirin 2015-08 No Notes: Memoria 09-27 Take with l 19:12: food. [place] 00 Acetaminoph 2015-08 No Notes: Mike una en 325 MG / 09-27 (Same as: l Hydrocodone 19:12: [place] Adrienne nn Bitartrate 00 325/5) Do 5 MG Oral not exceed Tablet 4gm/day of [Geronimo acetaminop 5/325] hen. Saline 2015-08 No Notes: Memoria Flush 0.9% 09-27 Same as: l 17:14: BD [place] 00 Posiflush Sterile Potassium Yes 20 mEq = Mike una Chloride 8-06 15 mL, PO, l 1.33 MEQ/ML 22:12: BID, 1.33 H ermann Oral 00 mEq/ml, # Solution 150 mL, 0 Refill(s) potassium Yes Notes: Memori a chloride 8- Infuse at l 21:00: a rate of [place] 00 10 mEq/hr. (Same as: KCL) sodium No 1,000 mL, Memori a chloride 03-07 Rate: l 0.9% 1000 20:27: 1,000 [place] ml INJ 00 ml/hr, 1,000 mL Infuse [...] tab, PO, l 60 MG 20:13: Daily [place] Extended 00 Release Tablet lisinopril Yes 20 mg = 1 Me moria 20 mg oral 8-06 tab, PO, l tablet 20:13: BID Lucien 00 carvedilol Yes 25 mg = 1 Me moria 25 mg oral 8-06 tab, PO, l tablet 20:12: BID Lucien 00 Potassium No 40 mEq, 15 Me [...] 03-07 not exceed l 18:43: 4 gm/day. [place] 00 (Same as: Tylenol) Sodium No 1,000 [...] 02-17 not exceed l 17:26: 4 gm/day. [place] 00 (Same as: Tylenol) Labetalol No 20 mg, 4 Mike una 7-19 mL, Route: l 17:26: IVP, Drug form: INJ, ONCE, Dosing Weight 81.818, kg, Priority: STAT, Start date: 02/18/16 12:26:00 CDT, Stop date: 02/18/16 12:26:00 CDT Saline No Notes: Memoria Flush 0.9% 02-17 Same as: l 16:44: BD Posiflush Sterile Naproxen Yes 550 mg = [...] Refill(s) carvedilol Yes PO, 0 Memori a 23 Refill(s) l 17:20: Lisinopril 2014-0 Yes PO, Daily, M emoria 4-23 0 l 17:20: Refill(s) Metformin 0 Yes PO, 0 Memoria 23 Refill(s) l 17:20: Simvastatin 0 Yes PO, Memori a 4-23 Bedtime, 0 l 17:20: Refill(s) Hydrochloro 0 Yes PO, Daily, Memoria thiazide 23 0 l 17:19: Refill(s) Morphine No 4 mg, Memoria 23 Route: l 16:18: IVP, ONCE, Dosing Weight 93.835, kg, Priority: STAT, Start date: 11/22/14 11:18:00, Stop date: 11/22/14 11:18:00 Ketorolac 2015-0 No 30 mg, Memori a 4-23 Route: [...] 11-22 Infuse l 0.154 16:18: Over: 1 [place] MEQ/ML 00 hr, Route: Injectable IV, ONCE, [...] l Oral Tablet 00:20: Q12H, # 14 [place] [Cipro] 00 tab, 0 Refill(s) Albuterol Yes [...] n 1-15 Same as l 03:00: Cerefolin [place] 00 NAC Non-formul sun item Levaquin No Notes: Memoria 1-15 (Same l 01:00: as:Levaqui [place] 00 n) Albuterol No Notes: Memori a 0.833 MG/ML 1-15 (Same as: l / 01:00: Duoneb) [place] Ipratropium 00 [place] 0.167 MG/ML Inhalant Solution Vasotec No Notes: Memoria 1-15 (Same as: l 00:42: Vasotec-IV [place] ) Acetylcyste No 600 mg, Mem oria ine 200 -15 Route: PO, l MG/ML 00:35: Drug form: [place] n Inhalant 00 SOLN, BID, Solution Dosing Weight 96.96, kg, Priority: STAT, Start date: 08/15/14 18:35:00, Duration: 2 day, Stop date: 08/17/14 17:00:00 Lopressor No Notes: Memori a 1-15 (Same as: l 00:34: Lopressor) [place] Push over 2 minutes Clonidine No Notes: Memori a Hydrochlori 1-15 (Same As: l de 0.1 MG 00:34: Catapres) [place] Oral Tablet 00 Hydralazine No Notes: Mike una 1-15 (Same as: l 00:34: Apresoline Lucien 00 ) Push over 5 minutes Ativan No Notes: Memoria 1-14 (Same as: l 22:16: Ativan) Lucien 00 Morphine No Notes: Memoria 1-14 (Same l 22:15: as:MORPhin [place] 00 e Sulfate) Ativan No Notes: Memoria 1-14 (Same as: l 20:15: Ativan) Lucein 00 Aspirin 81 No Notes: Do Me moria MG Enteric 1-14 not crush l Coated 15:00: or chew. [place] Tablet 00 (Same As: Ecotrin) Simvastatin No Notes: Mike una 1-14 (Same as: l 03:00: Zocor) [place] 00 Coreg No Notes: Memoria 1-14 Give with l 03:00: food. [place] 00 (Same As: Coreg) Acetaminoph No Notes: Max Memoria en 08-15 acetaminop l 01:53: hen = 4000 [place] 00 mg/day (4 gm/day). (Same as: Tylenol) [...] Syringe 08-15 25 mL, l 01:28: Route: [place] 00 IVP, Drug Form: INJ, Dosing Weight 96.96, kg, PRN, PRN Blood Glucose Results, Start date: 08/14/14 19:28:00, Duration: 30 day, Stop date: 09/13/14 19:27:00 Glucagon No 1 mg, Memoria 08-15 Route: IM, l 01:28: Drug form: [place] 00 PDR/INJ, PRN, Dosing Weight 96.96, kg, PRN Blood Glucose Results, Start date: 08/14/14 19:28:00, Duration: 30 day, Stop date: 09/13/14 19:27:00 Magnesium No Notes: Memori a Oxide 08-14 (Same as: l 17:30: Mag-Ox [place] 00 400) Magnesium oxide [id number] g elemental magnesium Dose=____m g magnesium oxide (___mg elemental magnesium) Lisinopril No Notes: Memor ia 08-14 (Same as: l 17:30: Prinivil, [place] 00 Zestril) carvedilol No Notes: Memor ia 08-14 Give with l 17:30: food. [place] (Same As: Coreg) Hydralazine No Notes: Mike una 1-13 (Same as: l 17:04: Apresoline ) Push over 5 minutes Tamiflu No Notes: Memoria 1-13 Take with l 17:00: food. Same [place] 00 as: Tamiflu) Enoxaparin No Notes: Memor ia 1-13 (Same as: l 17:00: Lovenox) Albuterol No Notes: Memori a 0.833 MG/ML - (Same as: l / 16:53: Duoneb) Ipratropium 00 [place] 0.167 MG/ML Inhalant Solution Ondansetron No Notes: Mike una 1-13 (Same as: l 16:53: Zofran) Acetaminoph No Notes: Do M emoria en 08-14 not exceed l 16:53: 4 gm/day. [place] 00 (Same as: Tylenol) Guaifenesin No Notes: [...] a 1-13 (Same as: l 13:45: Normodyne, [place] 00 Trandate) Push over 2 minutes Give [...] 0.9% 08-14 (Same as: l 13:28: BD [place] 00 Posiflush) Sodium No 1,000 mL, Memori a Chloride 08-14 1000 l 0.154 13:28: ml/hr, [place] MEQ/ML 00 Infuse Injectable Over: 1 Solution [...] 08-14 not exceed l 13:28: 4 gm/day. Lucien 00 (Same as: Tylenol) Acetaminoph 2013-08 Yes [...] tab, PO, l tablet 17:19: Daily, # Lucien 00 14 tab, 0 Refill(s) tramadol 2013-08 Yes 50 mg = 1 Mike una hydrochlori 0-12 tab, PO, l de 50 MG 17:19: Q6H, # 30 Herm lexy Oral Tablet 00 tab, 0 Refill(s) Sulfamethox 2013-08 Yes 1 tab, PO, Memoria azole 800 0-12 [id number], # l MG / 17:19: 14 tab, 0 Lucien Trimethopri 00 Refill(s) m 160 MG Oral Tablet Docusate 2013-08 Yes 1 tab, PO, Mem oria Sodium 50 0-12 BID, # 30 l MG / 17:19: tab, 0 [place] sennosides, 00 Refill(s) SKILLED NURSING 8.6 MG Oral Tablet carvedilol 2013-08 Yes [...] ia 0-12 Give with l 02:00: food. [place] 00 (Same As: Coreg) Docusate 2013-08 No Notes: Memoria Sodium 50 0-11 (Same as l MG / 14:00: Senokot-S) [place] sennosides, 00 Equiv. to SKILLED NURSING 8.6 MG Lorie-Colac Oral Tablet e. Fluzone [...] ia 0-11 Give with l 02:00: food. [place] 00 (Same As: Coreg) Amoxicillin 2013-08 No [...] Memoria porcine 0-10 porcine l 21:00: heparin [place] 00 Hydrochloro 2013-08 No Notes: Mike una thiazide 0-10 (Same as: l 18:47: Hydrodiuri Lucien 00 l) With food. Lisinopril 2013-08 No Notes: Memor ia 0-10 (Same as: l 18:46: Prinivil, Lucien 00 Zestril) Coreg 2013-08 No Notes: Memoria 0-10 Give with l 18:46: food. [place] (Same As: Coreg) Coreg 2013-08 No Notes: Memoria 0-10 Give with l 16:24: food. [place] 00 (Same As: Coreg) Lisinopril 2013-08 No [...] ia 0-10 (Same as: l 11:18: Lopressor) [place] 00 Push over 2 minutes aspirin 2013-08 [...] 0-09 not give l 22:35: IV push. [place] 00 (Same as: Phenergan) Ondansetron 2013-08 No Notes: Mike una 0-09 (Same as: l 22:35: Zofran) Lucien 00 Lisinopril 2013-08 No Notes: Memor ia 0-09 (Same as: l 05:00: Prinivil, [place] 00 Zestril) vancomycin 2013-08 No 2001 mg: [...] 0-08 not crush l 14:00: or chew. [place] 00 (Same As: Ecotrin) carvedilol 2013-08 No Notes: Memor ia 0-08 Give with l 14:00: food. Lucien (Same As: Coreg) Influenza 2013-08 No Notes: Memori a Virus 0-08 (Same as: l Vaccine, 14:00: Fluzone [place]vin n Inactivated 00 [place]- nt) (H3N2)-like virus ([place] [facility] X-175C) strain / Influenza Virus Vaccine, Inactivated [place]- , IVR-148 (H1N1) strain / Influenza Virus Vaccine, Inactivated , B---lik Docusate 2013-08 No Notes: Memoria 0-08 (Same as: l 14:00: Colace) Lucien 00 Ceftriaxone 2013-08 No Notes: Mike una 0-08 (Same As: l 12:00: Rocephin). [place] 00 Use with 100ml NS mini-bag PLUS and infuse over 30 min Zofran 2013-08 No Notes: Memoria 0-08 (Same as: l 11:40: Zofran) [place] Vancomycin 2013-08 No 2000 mg: Me moria 0-08 infuse l 11:39: over 2.5 [place] 00 hours Potassium 2013-08 No Notes: Memori a Chloride 0-08 (Same as: l 11:36: KCL) [place] Infuse no faster than 10 mEq/hr if [...] 0-08 mL, Route: l 11:36: IVP, Drug [place] 00 Form: INJ, Dosing Weight 97.727, kg, [...] una 0-08 (Same as: l 11:35: Zofran) [place] 00 Acetaminoph 2013-08 No Notes: Do M emoria en 0-08 not exceed l 11:35: 4 gm/day. [place] 00 (Same as: Tylenol) Acetaminoph 2013-08 No Notes: Mike una en 325 MG / 0-08 (Same as: l Hydrocodone 11:35: [place]eronimo Adrienne nn Bitartrate 00 325/5) Do 5 MG Oral not exceed Tablet 4gm/day of acetaminop hen. Morphine 2013-08 No Notes: Memoria 0-08 (Same l 11:35: as:MORPhin Lucien 00 e Sulfate) Acetaminoph 2013-08 No Notes: Do M emoria en 325 MG / 0-08 not exceed l Hydrocodone 11:35: 4gm/day of Lucien Bitartrate 00 acetaminop 10 MG Oral hen. Tablet (Same as: Geronimo 325/10) Metformin 2013-08 Yes 500 mg = 1 Me moria hydrochlori 0-08 tab, PO, l de 500 MG 10:54: BID, # 30 [place] Oral Tablet 00 tab, 0 Refill(s) Dilaudid 2013-08 No 1 mg, Memoria 0-08 Route: l 08:14: IVP, ONCE, [place] 00 Dosing Weight 113.636, kg, Priority: STAT, Start date: 05/09/14 3:14:00, Stop date: 05/09/14 3:14:00 Ceftriaxone 2013-08 No Notes: Mike una 0-08 (Same As: l 08:08: Rocephin). [place] 00 Use with 100ml NS mini-bag PLUS and infuse over 30 min Doxycycline 2013-08 No Notes: NO M emoria 0-08 MILK/ANTAC l 08:06: IDS/IRON Lucien 00 Take 1 hour before or 2 hours after dairy products NS 1,000 mL 2013-08 No Special Mem oria 0-08 Instructio l 05:12: ns: Bolus Lucien 00 Dose Ondansetron 2013-08 No Notes: Mike una 0-08 (Same as: l 04:58: Zofran) Lucien 00 Dilaudid 2013-08 No Notes: Memoria 0-08 Same as: l 04:58: Dilaudid [place] 00 Vancomycin 2013-08 No 2001 mg: Me moria 0-08 infuse l 04:57: over 2.5 Lucien 00 hours Saline 2013-08 No Notes: Memoria Flush 0.9% 0-08 (Same as: l 04:57: BD Lucien 00 Posiflush) Lisinopril No Notes: Memor ia 7-12 (Same as: l 14:00: Prinivil, Lucien 00 Zestril) Coreg No Notes: Memoria 7-12 Give with l 02:00: food. [place] 00 (Same As: Coreg) lisinopril Yes 5 mg = 1 Mem oria 5 mg oral 7-11 tab, PO, l tablet 18:18: Daily, # [place] 00 30 tab, 0 Refill(s) carvedilol Yes 6.25 mg = Me moria 12.5 mg 7-11 0.5 tab, l oral tablet 18:18: PO, BID, # [place] 00 15 tab, 0 Refill(s) Hydrochloro Yes 25 mg = 1 M emoria thiazide 25 7-11 tab, PO, l MG Oral 18:18: Daily, for Herm lexy Tablet 00 edema, # 30 tab, 0 Refill(s) Simvastatin No Notes: Mike una 02-09 (Same as: l 02:00: Zocor) Lucien Coreg No Notes: Memoria 7 Give with [...] 7-10 tab, PO, l 05:35: Bedtime, # Lucien 00 30 tab, 0 Refill(s) NS 1,000 mL No 1,000 mL, M emoria 7-10 Rate: 40 l 03:24: ml/hr, Infuse over: [...] en 02-07 acetaminop l 17:54: hen = [place] 4000mg/day (4 gm/day). (Same as: Tylenol) Ondansetron No Notes: Mike una 02-07 (Same as: l 17:54: Zofran) Lucien Docusate No Notes: Memoria 02-07 (Same as: l 17:54: Colace) [place] 00 (Do Not Crush) Omnipaque 2014-0 No 50 mL, Memori a 240 02-07 Route: PO, l 14:41: Dosing [place] 00 Weight 96.364, kg, ONCE, Start date: [...] 02-07 500 ml/hr, l 0.154 12:37: Infuse Lucien MEQ/ML 00 Over: 1 Injectable hr, Route: Solution IV, ONCE, Priority: STAT, Dosing Weight 96.364 kg, Start date: 02/07/14 7:37:00, Duration: 1 doses or times, Stop date: 02/07/14 7:37:00 Morphine 2013-0 No 6 mg, Memoria 02-07 Route: l 12:33: IVP, Drug [place] 00 form: INJ, ONCE, Dosing Weight 96.364, kg, Priority: STAT, Start date: 02/07/14 7:33:00, Stop date: 02/07/14 7:33:00 Zofran 2013-0 No 8 mg, Memoria 02-07 Route: l 12:33: IVP, Drug [place] 00 form: INJ, ONCE, Dosing Weight 96.364, kg, Priority: STAT, Start date: 02/07/14 7:33:00, Stop date: 02/07/14 7:33:00 Azithromyci 2013-0 Yes 500 mg = 1 Memoria n 500 MG 4-30 tab, PO, l Oral Tablet 09:46: Daily, # 7 [place] [Zithromax] 00 tab, 0 Refill(s) benzonatate 2013-0 [...] ea, 0 Refill(s) aspirin 81 2012-08 Yes [place] E 81 mg = 1 Memoria mg tablet, 2-20 Pierre II tab, PO, l enteric 21:21: Daily, # Delvin n coated 00 30 tab, 0 Refill(s) cloNIDine 2012-08 Yes Evan E 0.1 mg = 1 Memoria 0.1 mg oral 2-20 Pierre II tab, PO, l tablet 21:21: TID, [place] 00 Elevated BP | sbp >/= 160, # 60 tab, 0 Refill(s) simvastatin 2012-08 Yes [place] E 40 mg = 2 Memoria 20 mg oral 2-20 Pierre II tab, PO, l tablet 21:21: Bedtime, # Adrienne nn 00 30 tab, 0 Refill(s) lisinopril 2012-08 Yes Evan E 20 mg = 1 Memoria 20 mg oral 2-20 Pierre II tab, PO, l tablet 21:21: Q12H, HOLD Adrienne nn 00 IF SBP HOLD IF SBP </= 110 furosemide 2012-08 Yes [place] E 40 mg = 1 Memoria 40 [...] with food or milk. hydrALAZINE 2012-08 No [place] E 10 mg, 0.5 Memoria 2-19 Pierre II mL, Route: l 20:02: IVP, Drug [place] 00 form: INJ, Q6H, Dosing Weight 97.727, kg, PRN Hypertensi on, Start date: 07/20/13 14:02:00, Duration: 30 day, Stop date: 08/19/13 14:01:00, SBP>/=150 OR DBP>/=90(S qian as: Apresoline ) Push over 5 minutes aspirin 325 2012-08 No Evan E 325 mg, 1 Memoria mg tablet, 2-19 Pierre II tab, l enteric 15:00: Route: PO, Herm lexy coated 00 Drug form: ECTAB, Daily, Dosing Weight 93.3, kg, Start date: 07/20/13 9:00:00, Duration: 30 day, Stop date: 08/18/13 9:00:00(Do Not Crush) Do not crush or chew. Zocor 2012-08 No [place] E 40 mg, 2 Memor ia 2-19 [...] 20:50:00, Duration: 30 day, Stop date: 08/18/13 9:00:00([facility] as: Prinivil, Zestril) magnesium 2012-08 No [...] Pamela 15 mL, l Sodium 16:51: Route: [place] Chloride 00 IVPB, Drug 0.9% IV 250 [...] 45 mL, l phate + 16:51: Route: [place] Sodium 00 IVPB, Drug Chloride form: INJ, [...] a 2-18 Guzmán mL, Route: l 15:00: [place] II IVP, Drug [place] 00 form: [...] 9:00:00(Sa me as: Folvite) multivitami 2012-08 No [place] E 1 tab, M emoria n 2-18 Pierre II Route: PO, l 15:00: Drug Form: [place] 00 TAB, Dosing Weight 97.727, kg, Daily, Start date: 07/19/13 9:00:00, Duration: 30 day, Stop date: 08/17/13 9:00:00 thiamine 2012-08 No Evan E 100 mg, 1 M emoria 2-18 Pierre II tab, l 15:00: Route: PO, [place] 00 Drug form: TAB, Daily, Dosing Weight [...] 9:00:00(Sa me as: Fluzone) multivitami 2012-08 No Evan E 1 tab, M emoria n with 2-18 Ignacio II Route: PO, l minerals 15:00: Drug Form: [place] 00 TAB, Daily, Start date: 07/19/13 9:00:00, Duration: 30 day, Stop date: 08/17/13 9:00:00Giv e with food. (Same As: Stress 600 with Zinc) vancomycin 2012-08 No Akinyinka 1.25 gm, Memoria 2-18 Ajelabi 250 mL, l 12:00: Route: [place] 00 IVPB, Drug form: INJ, [id number], Start date: 07/19/13 6:00:00, Stop date: 08/18/13 2:00:00Sam e as: Vancocin-N S (premixed) Geronimo 2012-08 No Evan E 1 tab, Memoria 10/325 oral - Ignacio II Route: PO, l tablet 06:00: Drug Form: Adrienne nn 00 TAB, Dosing Weight 97.727, kg, Q6H, Start date: 07/19/13 0:00:00, Duration: 30 day, Stop date: 08/17/13 18:00:00Do not exceed 4gm/day of acetaminop hen. (Same as: Geronimo 325/10) albuterol-i 2012-08 No Evan E 3 mL, Me moria pratropium 2-18 Ignacio II Route: l 2.5-0.5 mg 05:00: NEB, Drug He rmann inhalation 00 Form: solution SOLN, Dosing Weight 97.727, kg, RQ4H, Start date: 07/18/13 23:00:00, Duration: 30 day, Stop date: 08/17/13 19:00:00(S qian as: Duoneb) Tessalon 2012-08 No [place] E 200 mg, 2 M emoria Perles 2-18 Ignacio II cap, l 04:00: Route: PO, [place] 00 Drug form: CAP, Q8H-06, Dosing Weight 97.727, kg, Start date: 07/18/13 22:00:00, Duration: 30 day, Stop date: 08/17/13 14:00:00(S qian As: Freida Gamez) "Do Not Crush" lisinopril 2012-08 No [place] E 10 mg, 1 Memoria 2-18 Pierre II tab, l 03:00: Route: PO, Lucien 00 Drug form: TAB, Q12H, Dosing Weight 97.727, kg, Start date: 07/18/13 21:00:00, Duration: 30 day, Stop date: 08/17/13 9:00:00(Sa me as: Prinivil, Zestril) Coreg 2012-08 No Steven 12.5 mg, 1 Mike una 2-18 Guzmán tab, l 03:00: [place] II Route: PO, He rm Drug form: TAB, Q12H, Dosing Weight 97.727, kg, Start date: 07/18/13 21:00:00, Stop date: 08/17/13 9:00:00Giv e with food. (Same As: Coreg) Vancomycin 2012-08 No Naifyinka 1 gm, M [facility] 2-18 Ajelabi Route: IV, l Dosing 03:00: Dosing Weight 97.727, kg, Q12H, Start date: 07/18/13 21:00:00, Duration: 30 day, Stop date: 08/17/13 9:00:00 Nicoderm 2012-08 No [place] E 21 mg, 1 Me moria C-Q 2-18 Pierre II patch, l 02:25: Route: [place] 00 TOP, Drug form: ERFILM, Daily, Dosing [...] Anxiety(Sa me as: Ativan) clonidine 2012-08 No [place] E 0.1 mg, 1 Memoria 0.1 mg oral 2-18 Pierre II tab, l tablet 02:17: Route: PO, Adrienne nn 00 Drug form: TAB, TID, Dosing Weight 97.727, kg, PRN Elevated BP, Start date: 07/18/13 20:17:00, Duration: 30 day, Stop date: 08/17/13 20:16:00, sbp >/= 180(Same As: Catapres) vancomycin 2012-08 No [place] 1.5 gm, Memoria 2-18 Ajelabi 250 mL, l 02:00: Route: Lucien 00 IVPB, Drug form: INJ, ONCE, Start date: 07/18/13 20:00:00, Stop date: 07/18/13 20:00:00Sa me as: Vancocin-N S (premixed) dextrometho 2012-08 No [place] E 10 mL, M emoria rphan-guaif 2-18 [...] (Do Not Crush) Gas-X Ultra 2012-08 No [place] E 160 mg, 2 Memoria Softgels 2-18 Ignacio II tab, l 28: Route: PO, [place] 00 Drug form: CHEWTAB, Q4H, Dosing Weight 97.727, kg, PRN Gas, Start date: 07/18/13 19:28:00, Duration: 30 day, Stop date: 08/17/13 19:27:00(S qian as: Mylicon) GI cocktail 2012-08 No Evan E 30 ml, M emoria - Ignacio II Route: PO, l 01:28: Drug Form: [place] 00 SUSP, Dosing Weight 97.727, kg, Q4H, PRN GI Upset, Routine, Start date: 07/18/13 19:28:00, Duration: 30 day, Stop date: 08/17/13 19:27:00, DYSPEPSIAG .I. Cocktail = antacid with simethicon e 22.5 mL - lidocaine viscous 7.5 mL morphine 2012-08 No [place] E 2 mg, 1 Mem oria Sulfate 09-19 Ignacio II mL, Route: l : IVP, Drug form: INJ, Q6H, Dosing Weight 97.727, kg, PRN as needed for pain, Start date: 07/18/13 19:28:00, Duration: 30 day, Stop date: 08/17/13 19:27:00(S qian as:MORPhin e Sulfate) Tylenol 2012-08 No Evan E 650 mg, Mike una - Ignacio II Route: PO, l 28: Drug form: Lucien 00 TAB, Q6H, Dosing Weight 97.727, kg, PRN Pain, Start date: 07/18/13 19:28:00, Duration: 30 day, Stop date: 08/17/13 19:27:00 hydrALAZINE 2012-08 No [place] E 10 mg, 0.5 Memoria 18 Ignacio II mL, Route: l : IVP, [...] 19:27:00(S qian as: Zofran) acetaminoph 2012-08 No [place] E 650 mg, 2 Memoria en 2-18 [...] II 0.1 mL, l protein 01:22: Route: [place] 00 INTRADERM, 5 ONCE, tuberculin Dosing units/0.1 Weight mL 97.727, intradermal kg, Start solution date: 07/18/13 19:22:00, Stop date: 07/18/13 19:22:00 levofloxaci 2012-08 No [place] 750 mg, Memoria n 2-18 Ajelabi 150 mL, l 00:00: Route: IV, Lucien Drug form: SOLN, [id number], Dosing Weight 97.727, kg, Start date: 07/18/13 18:00:00, Duration: 30 day, Stop date: 08/16/13 18:00:00(S qian as:Levaqui n) Lasix 2012-08 No [place] 40 mg, 4 Mem oria 2-17 Ajelabi mL, Route: l 23:20: IV, Drug [place] 00 form: INJ, ONCE, Dosing Weight 97.727, [...] 2-17 Ajelabi Route: l 23:12: IVP, Drug form: INJ, ONCE, Dosing Weight [...] 2-17 Faig Route: l 20:12: IVP, Drug [place] 00 form: INJ, ONCE, Dosing Weight 97.727, [...] 2-17 Faig Route: l 19:00: IVP, Drug [place] Form: INJ, Dosing Weight 97.727, kg, PRN, PRN Line Flush, Start date: 07/18/13 13:00:00, Duration: 1 doses or times, Stop date: Limited # of times(Same as: BD Posiflush) Asprin Ec Asprin Ec No 1 Q1D Asprin Ec [facility] Low Dose 81 Low Dose 81 Low Dose Family mg mg 81 mg Practic tablet,delgado tablet,delgado tablet,del e yed release yed release ayed Take 1 Take 1 release tablet tablet Take 1 every day every day tablet by oral by oral every day route. route. by oral route. atorvastati atorvastati No 1 Q1D atorvastat [facility] n 80 mg n 80 mg in 80 mg Famil y tablet Take tablet Take tablet Practic 1 tablet 1 tablet Take 1 e every day every day tablet by oral by oral every day route for route for by oral 90 days. 90 days. route for 90 days. carvedilol carvedilol No 1 BID carvedilol [facility] 25 mg 25 mg 25 mg Family tablet Take tablet Take tablet Practic 1 tablet 1 tablet Take 1 e twice a day twice a day tablet by oral by oral twice a route for route for day by 90 days. 90 days. oral route for 90 days. clopidogrel clopidogrel No 1 Q1D clopidogre [facility] 75 mg 75 mg l 75 mg Family tablet Take tablet Take tablet Practic 1 tablet 1 tablet Take 1 e every day every day tablet by oral by oral every day route for route for by oral 90 days. 90 days. route for 90 days. Entresto 97 Entresto 97 No Entresto [facility] mg-103 mg mg-103 mg 97 mg-103 Family tablet TAKE tablet TAKE mg tablet Practic ONE TABLET ONE TABLET TAKE ONE e BY MOUTH BY MOUTH TABLET BY TWICE DAILY TWICE DAILY MOUTH TWICE DAILY gabapentin gabapentin No 1capsul Q1D gabapentin [facility] 300 mg 300 mg e(s) 300 mg Family capsule capsule capsule Practi c Take 1 Take 1 Take 1 e capsule capsule capsule every day every day every day by oral by oral by oral route. route. route. levetiracet levetiracet No 1 BID levetirace [facility] am 1,000 mg am 1,000 mg perkins 1,000 Family tablet Take tablet Take mg tablet Practic 1 tablet 1 tablet Take 1 e twice a day twice a day tablet by oral by oral twice a route for route for day by 30 days. 30 days. oral route for 30 days. nifedipine nifedipine No 1 Q1D nifedipine [facility] ER 60 mg ER 60 mg ER 60 mg Fam jose tablet,exte tablet,exte tablet,ext Practic nded nded ended e release release release Take 1 Take 1 Take 1 tablet tablet tablet every day every day every day by oral by oral by oral route for route for route for 90 days. 90 days. 90 days. trazodone trazodone No 1 trazodone [facility] 100 mg 100 mg 100 mg [...] Date Status Commen ts Source Name Name RUBENZEV JOSE 2016-09-18 [facility] 00:00:00 Jain Vital Signs Vital Name Observation Time Observation Value Comments Source BP Diastolic 2017-10-19 00:00:00 77 mm[Hg] [facility] Height 2017-10-19 00:00:00 66 [in_i] [facility] BMI (Body Mass Index) 2017-10-19 00:00:00 37.8 kg/m2 [facility] BP Systolic 2017-10-19 00:00:00 132 mm[Hg] [facility] Body Weight 2017-10-19 00:00:00 234 [lb_av] [facility] BP Diastolic 2017-10-08 00:00:00 76 mm[Hg] [facility] Height 2017-10-08 00:00:00 66 [in_i] [facility] BMI (Body Mass Index) 2017-10-08 00:00:00 38 kg/m2 [facility] BP Systolic 2017-10-08 00:00:00 116 mm[Hg] [facility] Body Weight 2017-10-08 00:00:00 235.6 [lb_av] [facility] BP Diastolic 2017-08-25 00:00:00 82 mm[Hg] [facility] Height 2017-08-25 00:00:00 66 [in_i] [facility] BMI (Body Mass Index) 2017-08-25 00:00:00 39.3 kg/m2 [facility] BP Systolic 2017-08-25 00:00:00 110 mm[Hg] [facility] Body Weight 2017-08-25 00:00:00 243.6 [lb_av] [facility] Systolic (mm Hg) 2017-04-21 06:49:00 Mike Mcgraw Diastolic (mm Hg) 2017-04-21 06:49:00 Mem orial Lucien Heart Rate 2017-04-21 06:49:00 [facility] Lucien Respitory Rate 2017-04-21 06:49:00 Memluis al Lucien Temperature Oral (F) 2017-04-21 06:49:00 98.4 F [facility] [place] Height 2017-04-21 06:49:00 180.34 cm [facility] [place] BMI Calculated 2017-04-21 06:49:00 Memori al Lucien Weight 2017-04-21 06:49:00 [facility] [place] Respitory Rate 2017-04-19 16:08:00 Memluis al [place] Systolic (mm Hg) 2017-04-19 15:19:00 Mike rial [place] Diastolic (mm Hg) 2017-04-19 15:19:00 Mem orial Lucien Respitory Rate 2017-04-19 15:19:00 Memori al [place] Temperature Oral (F) 2017-04-19 15:19:00 98.9 F [facility] [place]ien Heart Rate 2017-04-19 15:19:00 [facility] [place] Temperature Oral (F) 2017-04-19 12:04:00 98.3 F [facility] [place]ien Respitory Rate 2017-04-19 12:04:00 Memori al [place] Heart Rate 2017-04-19 12:04:00 [facility] [place]ien Systolic (mm Hg) 2017-04-19 12:04:00 Mike rial Lucien Diastolic (mm Hg) 2017-04-19 12:04:00 Mem orial [place] Heart Rate 2017-04-19 08:39:00 [facility] [place] Temperature Oral (F) 2017-04-19 08:39:00 98.6 F [facility] [place] Systolic (mm Hg) 2017-04-19 08:39:00 Mike rial Lucien Diastolic (mm Hg) 2017-04-19 08:39:00 Mem orial [place] BMI Calculated 2017-04-18 18:56:00 Memori al [place] Weight 2017-04-18 18:56:00 [facility] [place] Height 2017-04-18 18:56:00 165.1 cm [facility]ien Heart Rate 2016-08-27 21:32:00 [facility] [place] Systolic (mm Hg) 2016-08-27 21:32:00 Mike rial [place] Diastolic (mm Hg) 2016-08-27 21:32:00 Mem orial [place] Respitory Rate 2016-08-27 21:32:00 Memori al Lucien Temperature Oral (F) 2016-08-27 21:32:00 98.8 F [facility] [place] Heart Rate 2016-08-27 19:15:00 [facility] [place] Respitory Rate 2016-08-27 19:15:00 Memori al [place] Temperature Oral (F) 2016-08-27 19:15:00 99.0 F [facility] [place] Systolic (mm Hg) 2016-08-27 19:15:00 Mike rial Lucien Diastolic (mm Hg) 2016-08-27 19:15:00 Mem orial [place] Weight 2016-08-27 19:15:00 [facility] [place] Systolic (mm Hg) 2016-07-30 18:12:00 Mike rial [place] Diastolic (mm Hg) 2016-07-30 18:12:00 Mem orial [place]ien Respitory Rate 2016-07-30 18:12:00 Memori al [place] Heart Rate 2016-07-30 18:12:00 [facility] [place] Temperature Oral (F) 2016-07-30 18:12:00 98.6 F [facility] [place] Respitory Rate 2016-07-30 14:57:00 Memori al [place] Systolic (mm Hg) 2016-07-30 14:57:00 Mike rial [place] Diastolic (mm Hg) 2016-07-30 14:57:00 Mem orial Lucien Heart Rate 2016-07-30 14:57:00 [facility] [place] Temperature Oral (F) 2016-07-30 14:57:00 98.9 F [facility] [place] Systolic (mm Hg) 2016-07-30 10:00:00 Mike rial Lucien Diastolic (mm Hg) 2016-07-30 10:00:00 Mem orial [place] Respitory Rate 2016-07-30 10:00:00 Memori al [place] Heart Rate 2016-07-30 10:00:00 [facility] [place] Temperature Oral (F) 2016-07-30 10:00:00 97.5 F [facility] [place] Weight 2016-07-27 17:13:00 [facility] [place] BMI Calculated 2016-07-27 17:13:00 Memori al [place] Height 2016-07-27 17:13:00 165.1 cm [facility] [place] Systolic (mm Hg) 2016-03-07 22:33:00 Mike rial Lucien Diastolic (mm Hg) 2016-03-07 22:33:00 Mem orial [place] Heart Rate 2016-03-07 22:33:00 [facility] [place] Temperature Oral (F) 2016-03-07 22:33:00 98.8 F [facility] [place] Respitory Rate 2016-03-07 22:33:00 Memori al [place] Systolic (mm Hg) 2016-03-07 19:17:00 Mike rial Lucien Diastolic (mm Hg) 2016-03-07 19:17:00 Mem orial [place] Respitory Rate 2016-03-07 19:17:00 Memori al [place] Temperature Oral (F) 2016-03-07 19:17:00 99.1 F [facility] [place] Heart Rate 2016-03-07 19:17:00 [facility] [place] BMI Calculated 2016-03-07 17:40:00 Memori al [place] Height 2016-03-07 17:40:00 165.1 cm [facility] [place] Weight 2016-03-07 17:40:00 [facility] [place] Heart Rate 2016-03-07 17:40:00 [facility] [place] Respitory Rate 2016-03-07 17:40:00 Memori al [place] Temperature Oral (F) 2016-03-07 17:40:00 98.5 F [facility] [place] Systolic (mm Hg) 2016-03-07 17:40:00 Mike rial [place] Diastolic (mm Hg) 2016-03-07 17:40:00 Mem orial [place] Heart Rate 2016-02-18 21:51:00 [facility] [place]ien Respitory Rate 2016-02-18 21:51:00 Memori al [place] Temperature Oral (F) 2016-02-18 21:51:00 98.1 F [facility] [place] Systolic (mm Hg) 2016-02-18 21:51:00 Mike rial Lucien Diastolic (mm Hg) 2016-02-18 21:51:00 Mem orial [place] Heart Rate 2016-02-18 20:44:00 [facility] [place]ien Systolic (mm Hg) 2016-02-18 20:44:00 Mike rial Lucien Diastolic (mm Hg) 2016-02-18 20:44:00 Mem orial [place] Respitory Rate 2016-02-18 20:44:00 Memori al Lucien Temperature Oral (F) 2016-02-18 20:44:00 98.2 F [facility] [place] Systolic (mm Hg) 2016-02-18 17:22:00 Mike rial Lucien Diastolic (mm Hg) 2016-02-18 17:22:00 Mem orial [place] Heart Rate 2016-02-18 17:22:00 [facility] [place] Respitory Rate 2016-02-18 17:22:00 Memori al [place] Height 2016-02-18 16:37:00 177.8 cm [facility] BMI Calculated 2016-02-18 16:37:00 Memori al [place] Weight 2016-02-18 16:37:00 [facility] [place] Temperature Oral (F) 2016-02-18 16:37:00 98.5 F [facility] Lcuien Systolic (mm Hg) 2014-11-22 18:01:00 Mike rial Lucien Diastolic (mm Hg) 2014-11-22 18:01:00 Mem orial [place] Heart Rate 2014-11-22 18:01:00 [facility] [place] Respitory Rate 2014-11-22 18:01:00 Memori al [place] Weight 2014-11-22 16:06:00 [facility] [place] BMI Calculated 2014-11-22 16:06:00 Memori al [place] Height 2014-11-22 16:06:00 165.1 cm [facility] [place] Heart Rate 2014-11-22 16:06:00 [facility] [place]ien Systolic (mm Hg) 2014-11-22 16:06:00 Mike rial Lucien Diastolic (mm Hg) 2014-11-22 16:06:00 Mem orial [place] Temperature Oral (F) 2014-11-22 16:06:00 98.5 F [facility] [place] Respitory Rate 2014-11-22 16:06:00 Memori al [place] Respitory Rate 2014-08-18 01:58:00 Memori al [place] Respitory Rate 2014-08-18 00:51:00 Memori al [place] Temperature Oral (F) 2014-08-18 00:51:00 97.5 F [facility] [place] Systolic (mm Hg) 2014-08-18 00:51:00 Mike rial Lucien Diastolic (mm Hg) 2014-08-18 00:51:00 Mem orial [place] Heart Rate 2014-08-18 00:51:00 [facility] [place] Heart Rate 2014-08-17 19:30:00 [facility] [place] Heart Rate 2014-08-17 17:18:00 [facility] [place] Systolic (mm Hg) 2014-08-17 17:18:00 Mike rial [place] Diastolic (mm Hg) 2014-08-17 17:18:00 Mem orial [place] Respitory Rate 2014-08-17 13:51:00 Memori al [place] Temperature Oral (F) 2014-08-17 13:18:00 98.3 F [facility] [place] Systolic (mm Hg) 2014-08-17 13:18:00 Mike rial Lucien Diastolic (mm Hg) 2014-08-17 13:18:00 Mem orial [place] Temperature Oral (F) 2014-08-17 06:02:00 98.4 F [facility] [place] BMI Calculated 2014-08-14 21:38:00 Memori al [place] Weight 2014-08-14 21:38:00 [facility] [place] Height 2014-08-14 21:38:00 165.1 cm [facility] [place] Weight 2014-08-14 21:36:00 [facility] [place] BMI Calculated 2014-08-14 21:36:00 Memori al [place] Height 2014-08-14 21:36:00 165.1 cm [facility] [place] Weight 2014-08-14 13:19:00 [facility] [place] BMI Calculated 2014-08-14 13:19:00 Memori al [place] Height 2014-08-14 13:19:00 165.1 cm [facility] [place] Diastolic (mm Hg) 2014-05-13 13:00:00 Mem orial [place] Systolic (mm Hg) 2014-05-13 13:00:00 Mike rial [place] Heart Rate 2014-05-13 13:00:00 [facility] [place] Respitory Rate 2014-05-13 13:00:00 Memori al [place] Temperature Oral (F) 2014-05-13 13:00:00 98.6 F [facility] [place] Temperature Oral (F) 2014-05-13 09:32:00 98.5 F [facility] [place] Respitory Rate 2014-05-13 09:32:00 Memori al [place] Systolic (mm Hg) 2014-05-13 09:32:00 Mike rial [place] Heart Rate 2014-05-13 09:32:00 [facility] [place] Diastolic (mm Hg) 2014-05-13 09:32:00 Mem orial [place] Temperature Oral (F) 2014-05-13 04:06:00 98.7 F [facility] [place] Diastolic (mm Hg) 2014-05-13 04:06:00 Mem orial [place] Respitory Rate 2014-05-13 04:06:00 Memori al [place] Heart Rate 2014-05-13 04:06:00 [facility] [place] Systolic (mm Hg) 2014-05-13 04:06:00 Mike rial [place] Weight 2014-05-09 11:38:00 [facility] Height 2014-05-09 11:38:00 165.1 cm [facility] [place] BMI Calculated 2014-05-09 10:42:00 Memori al [place] Weight 2014-05-09 10:42:00 [facility] [place] Height 2014-05-09 10:42:00 165.1 cm [facility] [place] Weight 2014-05-09 07:58:00 [facility] [place] Height 2014-05-09 07:58:00 165.1 cm [facility] BMI Calculated 2014-05-09 07:58:00 Memori al [place] Respitory Rate 2014-05-09 07:20:00 Mem[facility] [place] Heart Rate 2014-05-09 07:20:00 [facility] [place] Diastolic (mm Hg) 2014-05-09 07:20:00 Mem orial [place] Systolic (mm Hg) 2014-05-09 07:20:00 Mike rial [place] Diastolic (mm Hg) 2014-05-09 05:30:00 Mem o[facility] [place] Respitory Rate 2014-05-09 05:30:00 Memori al [place] Systolic (mm Hg) 2014-05-09 05:30:00 Mike rial [place] Heart Rate 2014-05-09 05:30:00 [facility] [place] Height 2014-05-08 23:31:00 165.1 cm [facility] Weight 2014-05-08 23:31:00 [facility] [place] BMI Calculated 2014-05-08 23:31:00 Memori al [place]cien Temperature Oral (F) 2014-05-08 23:31:00 98.6 F [facility] Respitory Rate 2014-05-08 23:31:00 [facility] [place] Systolic (mm Hg) 2014-05-08 23:31:00 Mike rial [place] Heart Rate 2014-05-08 23:31:00 [facility] [place] Diastolic (mm Hg) 2014-05-08 23:31:00 Mem o[facility] [place] Temperature Oral (F) 2014-02-09 16:00:00 98.0 F [facility] [place] Heart Rate 2014-02-09 16:00:00 [facility] [place] Respitory Rate 2014-02-09 16:00:00 Mem[facility] [place] Systolic (mm Hg) 2014-02-09 16:00:00 Mike rial [place] Diastolic (mm Hg) 2014-02-09 16:00:00 Mem orial [place] Temperature Oral (F) 2014-02-09 12:00:00 98.6 F [facility] Diastolic (mm Hg) 2014-02-09 12:00:00 Mem o[facility] [place] Systolic (mm Hg) 2014-02-09 12:00:00 Mike rial [place] Respitory Rate 2014-02-09 12:00:00 [facility] Heart Rate 2014-02-09 12:00:00 [facility] Temperature Oral (F) 2014-02-09 05:00:00 98.6 F [facility] [place] Heart Rate 2014-02-09 05:00:00 [facility] [place] Diastolic (mm Hg) 2014-02-09 05:00:00 [facility] [place] Systolic (mm Hg) 2014-02-09 05:00:00 [facility] [place] Respitory Rate 2014-02-09 05:00:00 [facility] BMI Calculated 2014-02-07 23:12:00 [facility] Height 2014-02-07 23:12:00 165.1 cm [facility] Weight 2014-02-07 23:12:00 [facility] Weight 2014-02-07 20:41:00 [facility] BMI Calculated 2014-02-07 20:41:00 [facility] Height 2014-02-07 20:41:00 165.1 cm [facility] Weight 2014-02-07 12:12:00 [facility] BMI Calculated 2014-02-07 12:12:00 [facility] Height 2014-02-07 12:12:00 165.1 cm [facility] [place] Systolic (mm Hg) 2013-11-29 10:16:00 [facility] [place] Diastolic (mm Hg) 2013-11-29 10:16:00 [facility] [place] Temperature Oral (F) 2013-11-29 10:16:00 98.9 F [facility] Heart Rate 2013-11-29 10:16:00 [facility] [place] Respitory Rate 2013-11-29 10:16:00 [facility] BMI Calculated 2013-11-29 09:01:00 [facility] [place] Weight 2013-11-29 09:01:00 [facility] Height 2013-11-29 09:01:00 165.1 cm [facility] Respitory Rate 2013-11-29 09:01:00 [facility] [place] Temperature Oral (F) 2013-11-29 09:01:00 99.1 F [facility] Heart Rate 2013-11-29 09:01:00 [facility] Diastolic (mm Hg) 2013-11-29 09:01:00 [facility] [place] Systolic (mm Hg) 2013-11-29 09:01:00 [facility] Systolic (mm Hg) 2013-07-21 18:00:00 [facility] Temperature Oral (F) 2013-07-21 18:00:00 98.5 F [facility] [place] Heart Rate 2013-07-21 18:00:00 [facility] [place] Respitory Rate 2013-07-21 18:00:00 [facility] Diastolic (mm Hg) 2013-07-21 18:00:00 [facility] Respitory Rate 2013-07-21 14:00:00 [facility] Heart Rate 2013-07-21 14:00:00 [facility] Temperature Oral (F) 2013-07-21 14:00:00 99.5 F [facility] Diastolic (mm Hg) 2013-07-21 14:00:00 [facility] Systolic (mm Hg) 2013-07-21 14:00:00 [facility] [place] Temperature Oral (F) 2013-07-21 06:24:00 97.9 F [facility] [place] Heart Rate 2013-07-21 06:24:00 [facility] [place] Respitory Rate 2013-07-21 06:24:00 [facility] Systolic (mm Hg) 2013-07-21 06:24:00 [facility] Diastolic (mm Hg) 2013-07-21 06:24:00 [facility] [place] Height 2013-07-20 07:30:00 165.1 cm [facility] [place] Weight 2013-07-19 08:35:00 [facility] [place] Height 2013-07-19 08:35:00 165.1 cm [facility] [place] Height 2013-07-18 17:58:00 165.1 cm [facility] Weight 2013-07-18 17:58:00 [facility] Procedures Procedure Date / Time Performed Performing Clinician [facility] X-RAY OF FINGER(S) 2+ 2017-10[facility]08 [facility] 2016-07-29 06:00:00 Dory Keysann stem Hand Surgery [facility] of blood [facility] vessel Hand repair [facility] Plan of Care Planned Activity Planned Date Details Comments Source Future Scheduled Test 2020-03-02 INFLUENZA VACCINE [place] [facility] 00:00:00 [code = INFLUENZA VACCINE] Future Scheduled Test 2017-11-22 COLONOSCOPY [place] 00:00:00 SCREENING [code = COLONOSCOPY SCREENING] Future Scheduled Test 2017-11-22 SHINGLES VACCINES [place] [facility] 00:00:00 (#1) [code = SHINGLES VACCINES (#1)] Future Scheduled Test 1983 COVID-19 VACCINE (1 [place] Jain 00:00:00 of 2) [code = COVID-19 VACCINE (1 of 2)] Instructions [facility] En[facility]ters Start End Encounter Admission Attending Care Care Encounter Source Date/Time Date/Time Type Type Clinicians Facility Department ID 2017-11-04 2017-11-05 [id number] 15:53:00 23:59:59 07 2017-10-19 2017-10-19 Gray Thorne [facility] [place] - [id number] [facility] 00:00:00 00:00:00 MD Aaron: [facility] Famil y [address], [place] [address] , Ph. 2017-10-08 2017-10-08 Carolina [facility] [place] - [id number] [facility] 00:00:00 00:00:00 Na [facility] Family Sergio Madison MD: [address], [place] [address], [place] [address] , Ph. 2017-08-25 2017-08-25 Gray Thorne [facility] [place] - [id number] [address] [place] [address] 00:00:00 00:00:00 MD Aaron: [facility] Famil y [address], [place] [address] , Ph. 2017-04-21 2017-04-21 Outpatient Jaskaran Yi [facility] [id number] 01:46:00 02:21:00 Jame 12 2017-04-18 2017-04-19 Outpatient Jose, [facility]NH MH[facility] [id number] 13:52:00 10:56:00 Amena 11 Ani 2017-02-09 2017-02-09 Outpatient [facility] [id number] 12:02:00 23:59:00 92 2016-08-27 2016-08-27 Outpatient Jim Trujillo [facility] M[facility]HR [id number] 13:00:00 15:43:00 Marta 10 2016-07-10 2016-08-08 Outpatient Gege Randle, 2.16.840. [id number]. [id number] 11:10:00 23:59:00 Norman Bustamante [id number] 5.46 2016-07-27 2016-07-30 Outpatient Red, MHGHR MHGHR [id number] 11:11:00 15:59:00 Khris 08 Tiara K 2016-05-26 2016-06-24 Outpatient Gege Randle, 2.16.840. 2.16.840.1. [id number] 11:47:00 23:59:00 Norman Bustamante [id number] 5.46 2016-03-07 2016-03-07 Outpatient Stanley Mendez M[facility] M[facility] [id number] 12:37:00 17:38:00 Phil 07 2016-02-18 2016-02-18 Outpatient Wilfred Hogan [facility] M[facility] [id number] 11:28:00 16:50:00 Jeny 06 2014-11-22 2014-11-22 Outpatient Harris, MHIE MHIE [id number] 10:57:00 13:10:00 Kristen Bowens 2014-08-14 2014-08-17 Outpatient Obi, MHIE MHIE [id number] 07:18:00 20:44:00 Abilio Francois 2014-05-09 2014-05-13 Outpatient Vlad, MHIE MHIE [id number] 02:58:00 14:05:00 Radha Coates 2014-05-08 2014-05-09 Outpatient Jaskaran Yi MHIE MHIE [id number] 18:15:00 03:03:00 Jame 03 2014-02-07 2014-02-09 Outpatient Lacy [facility] [id number] 07:11:00 15:01:00 Yady wilkinson 02 2013-11-29 2013-11-29 Outpatient Cliff Oleary JUJU JUJU [id number] 03:59:00 05:18:00 Steve 2013-07-18 2013-07-21 Outpatient [facility] [id number] Memoria 11:14:00 17:02:00 l [facility] l Results Test Description Test Time Test [...] (test code = PT) 14.0 s 12.0-14.7 [facility] FginxknKETHVPIUVG5853-92-11 10:10:00 Test Item Value Reference Range Interpretation Comments PTT (test code = PTT) 31.1 s 22.9-35.8 [facility] RyausraABVEQUDHTM6654-87-77 10:10:35565Qgjoohlm HermannHEMATOLOGY 2017-04-19 10:10:004.55[facility] WomphuxPBSNATNNFY5276-70-58 10:10:0084.4[facility] OmsovquBJZJIZLCMH9134-79-29 10:10:0014.6[facility] BllwvhsZGLBHGJLJK4922-73-88 10:10:00 Test Item Value Reference Range Interpretation Comments MCH (test code = MCH) 28.0 pg 27.0-31.0 [facility] IcqdzrlQSDQAFNVEE7229-85-78 10:10:0033.2[facility] HermannHEMATOLOGY 2017-04-19 10:10:005.9[facility] VjdqrtdHVYTAGCFVI5998-65-64 10:10:0038.4[facility] NrcdfyoSFGJANPBGY7262-27-11 10:10:0012.8[facility] JiiuubqBMSGEGHQAC9434-53-42 10:10:008.2[facility] HermannANEMIA RCPUS6998-39-21 22:50:11068Kpswtagr [place] ANEMIA VWPFW2577-04-39 22:50:3218.6[facility] LfmwtggEXITGG9936-21-54 22:50:3213 [facility] ScmikirXZFIPB6255-23-55 22:50:3257[facility] XgoyfhbLHMIBF7668-13-40 22:50:323.80[facility] JypqvkuTKDEIN6792-76-60 22:50:3295[facility] HermannLIPIDS 2017-04-18 22:50:3225[facility] MklyjkmKMNUMZ9095-29-74 22:50:3263[facility] SPECIAL FJMERDQRG2214-23-20 22:50:326.2[facility] HermannCARDIAC AXCTHCB4927-93-01 21:20:00<0.02[facility] HermannCARDIAC ADZPLHI9326-35-73 21:20:57382Xkusxobx HermannCARDIAC ZGASEMP9936-98-63 21:20:001.2[facility] HermannCARDIAC ENZYMES 2017-04-18 21:20:000.5[facility] HermannCHEM RVJUU1065-77-26 21:20:06415Mnbcryeq HermannCHEM KAVZH3439-19-46 21:20:004.0[facility] HermannCHEM SAIHG1803-62-14 21:20:0010Mem[facility] HermannCHEM OVHUI8810-58-44 21:20:000.9[facility] HermannCHEM RLFUW1681-73-30 21:20:008.7[facility] HermannCHEM EAOTB6699-18-63 21:20:0026 [facility]annCHEM DTNSC7359-40-24 21:20:62208Grygpzaq HermannCHEM PANEL 2017-04-18 21:20:0030[facility] HermannCHEM ZMWZY5739-55-98 21:20:003.7[facility] HermannCHEM NVYEF3128-89-35 21:20:007.7[facility] HermannCHEM XCIAG9141-86-71 21:20:000.4[facility] HermannCHEM RLSFT7122-12-25 21:20:0069[facility] HermannCHEM VOBIL0754-78-26 21:20:0029Mem[facility] HermannCHEM BSYJQ8184-76-76 21:20:0010.0 [facility] HermannCHEM NVGFW4265-07-37 21:20:007[facility] HermannCHEM PANEL 2017-04-18 21:20:0092Mem[facility] HermannCHEM BUBAU2868-47-00 21:20:58349Odwrxfmz HermannCHEM KNJNK4325-79-12 21:20:004.0[facility] HermannCHEM IAMVK2493-04-46 21:20:000.67[facility] BgpflbhLTNBCRRADT0378-86-33 21:20:00 Test Item Value Reference Range Interpretation Comments PTT (test code = PTT) 31.8 s 22.9-35.8 [facility] HewlumnUVKAEBHZDE2299-08-45 21:20:008.6[facility] HermannHEMATOLOGY 2017-04-18 21:20:0014.8[facility] UtgqyzdDHRLJPTKMI2260-49-85 21:20:0039.8[facility] HiorkdbGDJOHYBAWK7403-81-10 21:20:0033.7[facility] AmrfxdkOJARXRXFAU5786-11-94 21:20:0083.2[facility] HahxdzuVXQUNWDVSN5201-49-92 21:20:00 Test Item Value Reference Range Interpretation Comments MCH (test code = MCH) 28.0 pg 27.0-31.0 [facility] YfonhypDSSUATJEVK1978-69-03 21:20:0013.4[facility] HermannHEMATOLOGY 2017-04-18 21:20:006.6[facility] EqicgrqVUESICMNYN6773-85-27 21:20:004.79[facility] YwchfuiBXNPTZXSGH9026-35-47 21:20:24920Cuzuooxe DkzwoseQRZOBVFQWI8446-14-21 21:20:001.00[facility] HwxrcnrEHSVJTVNTK7077-48-08 21:20:00 Test Item Value Reference Range Interpretation Comments PT (test code = PT) 13.4 s 12.0-14.7 [facility] VloxscxWSBTQADEDP4100-26-53 21:20:000.7[facility] HermannHEMATOLOGY 2017-04-18 21:20:001.3[facility] QhgzpgrQCCSSGHXQE5983-77-51 21:20:000.2[facility] SyxthysFYWJLKYPGD9177-77-65 21:20:003.0[facility] JsiovksPYRWDBKCHK3095-43-67 21:20:0011.3[facility] VmwhvbgYRMYSVUSHQ9640-56-07 21:20:004.3[facility] [place] ANJMXHUHEW6305-87-27 21:20:000.5[facility] XetvfsmAVMJTXUGAD1523-24-72 21:20:00 65.4[facility] OzbzcynGVKFECPIIP1011-34-50 21:20:0019.8[facility]annURINE AND XFJLC9402-32-37 21:20:00Negative (04/18/17 4:20 PM)[facility] AND KTVFV3737-08-68 21:20:00Negative *NA*(04/18/17 4:20 PM)[facility] QRHUG1758-77-35 21:20:00Negative (04/18/17 4:20 PM)[facility] AND WWHDG4223-57-31 21:20:00Small *ABN*(04/18/17 4:20 PM)[facility] AND KVOTZ4085-64-81 21:20:00Light Yellow *NA*(04/18/17 4:20 PM)[facility] YYFCW7821-99-85 21:20:006.0[facility] AND RYIHR8971-73-05 21:20:001.009[facility] AND VCLEJ6050-17-81 21:20:00Clear (04/18/17 4:20 PM)[facility] MVGCF7236-86-28 21:20:004[facility]UR[facility] AND UOHTH3507-14-58 21:20:006[facility] HermannCARDIAC ICPQCSQ9855-03-13 19:52:00 2.0[facility] HermannCARDIAC IBHDSHU2937-55-08 19:52:00<0.02[facility] CARDIAC UWPXMDX8044-98-35 19:52:76236Jtujdihd HermannCARDIAC JDVREDC4073-24-08 19:52:000.6[facility] HermannCHEM UYZIR4170-25-19 19:52:001.2[facility] HermannCHEM HRNKJ0684-00-31 19:52:003.4[facility] HermannCHEM ZSAIT5754-00-53 19:52:0014 [facility] HermannCHEM XQSQR3805-93-27 19:52:70530Iqpkvnnk HermannCHEM PANEL 2016-08-27 19:52:39034Roxbwhfr HermannCHEM NGXWI1065-86-54 19:52:008.3[facility] HermannCHEM TBGXO0507-85-12 19:52:0030[facility] HermannCHEM YZVMO0649-68-68 19:52:004.0[facility] HermannCHEM ZDOZN0666-57-21 19:52:007.4[facility] HermannCHEM ZBXMO3338-53-32 19:52:000.4[facility] HermannCHEM DCFOG9191-31-16 19:52:0071 [facility] HermannCHEM DXXSL1275-92-48 19:52:009.7[facility] HermannCHEM PANEL 2016-08-27 19:52:0022Mem[facility] HermannCHEM UKCDN0679-30-14 19:52:0018Mem[facility] HermannCHEM BDDVT3409-64-00 19:52:0097Mem[facility] HermannCHEM PQQDW3825-74-15 19:52:0012Mem[facility] HermannCHEM NCSPK6028-16-12 19:52:000.84[facility] HermannCHEM EGJYZ2828-74-41 19:52:65630Edijwpfv HermannCHEM KKWSU5080-96-99 19:52:003.7 [facility] HermannDRUG LLBOFW7424-56-43 19:52:00See Note *NA*(08/27/16 1:52 PM) [facility]annDRUG ZZRGCJ3959-32-10 19:52:00Negative *NA*(08/27/16 1:52 PM) [facility]annDR[facility] KBNCPU2814-14-55 19:52:00Negative *NA*(08/27/16 1:52 PM) [facility]annDR[facility] ENYZIM7502-68-79 19:52:00Negative *NA*(08/27/16 1:52 PM) [facility]annDR[facility] BPSCLJ0070-49-96 19:52:00Negative *NA*(08/27/16 1:52 PM) [facility]annDR[facility] QKBGSO7431-77-04 19:52:00Negative *NA*(08/27/16 1:52 PM) [facility]annDR[facility] VTRBIO0343-42-61 19:52:00Negative *NA*(08/27/16 1:52 PM) [facility]annDR[facility] CRGXUV3419-60-91 19:52:00Negative *NA*(08/27/16 1:52 PM) [facility] JwtbrrpVYZNMYIXXE7439-40-66 19:52:006.3[facility] HermannHEMATOLOGY 2016-08-27 19:52:004.80[facility] McvhvjvXLKAITOKYI0640-36-66 19:52:0040.2[facility] UsmjrtjSBUFNJIPUH0329-51-09 19:52:0013.4[facility] GjlkrooTEFZKBALKQ5298-20-11 19:52:0083.9[facility] MfvtnngALDIIVJUAC3925-39-50 19:52:0033.4[facility] PGBGCXLCNH3390-89-97 19:52:008.8[facility] UqmcojnLTLXBDVHPC1062-03-82 19:52:63774 [facility] RpyqenzJPZNJBVUNE8001-04-19 19:52:0014.8[facility] HermannHEMATOLOGY 2016-08-27 19:52:00 Test Item Value Reference Range Interpretation Comments MCH (test code = MCH) 28.0 pg 27.0-31.0 [facility] CtylllfTBXTASDTRH9723-30-73 19:52:004.0[facility] HermannHEMATOLOGY 2016-08-27 19:52:001.5[facility] JrjbrjsONDRHNEQQY9857-99-95 19:52:000.2[facility] WsdrqfjMTMBDDHDRB3218-35-01 19:52:000.6[facility] QqtlzfaEWIXYWPCZB4923-68-02 19:52:009.1[facility] WujjxmzXTHWNRQHEW4756-38-97 19:52:000.5[facility] IUEYNCKUBF3146-65-87 19:52:002.5[facility] BxpvduzWNQSYLNQSW2771-43-44 19:52:00 24.5[facility] VqiudqrBGMFKGDLSM5303-94-33 19:52:0063.4[facility]annURINE AND CKDLS4666-47-96 19:52:00Negative (08/27/16 1:52 PM)[facility] AND VDHZG7675-72-16 19:52:002.0[facility]annURINE AND RUUDF5172-07-59 19:52:00 Negative (08/27/16 1:52 PM)[facility] ERKIM1429-71-07 19:52:00 Negative *NA*(08/27/16 1:52 PM)[facility] UGXCW1592-93-56 19:52:00 Negative (08/27/16 1:52 PM)[facility]UR[facility] AND EQBID1797-77-53 19:52:00 Test Item Value Reference Range Interpretation Comments UA Spec Grav (test code = UA Spec 1.020 1 Grav) [facility]UR[facility] AND KILKT9384-75-59 19:52:00Yellow *NA*(08/27/16 1:52 PM) [facility] KUBRF0476-03-04 19:52:00Clear (08/27/16 1:52 PM) [facility] DGOPK0148-27-07 19:52:00 Test Item Value Reference Range Interpretation Comments UA pH (test code = UA pH) 6.5 1 5.0-8.0 [facility] AND QXQPY5318-84-23 19:52:00None Seen (08/27/16 1:52 PM) [facility] MpjukkaNDAVKCGYNX0983-72-97 22:25:00<0.003[facility] HermannTOXICOLOGY 2016-07-28 22:25:00<3[facility] HermannDRUG TMNCXN6984-74-81 22:20:00Negative *NA*(07/28/16 4:20 PM)[facility] HermannDRUG FHLZVK3571-50-52 22:20:00Negative *NA*(07/28/16 4:20 PM)[facility]annDR[facility] MLBPBB8176-70-33 22:20:00Negative *NA*(07/28/16 4:20 PM)[facility] HermannDRUG COWLRR7040-48-11 22:20:00Negative *NA*(07/28/16 4:20 PM)[facility]annDRUG NQUSLW5577-06-03 22:20:00Negative *NA*(07/28/16 4:20 PM)[facility]annDR[facility] NXRUEE6172-10-40 22:20:00Negative *NA*(07/28/16 4:20 PM)[facility]annDRUG HRZIFD1638-25-04 22:20:00Negative *NA*(07/28/16 4:20 PM)[facility]annDR[facility] TRFRDX5709-93-42 22:20:00See Note *NA*(07/28/16 4:20 PM)[facility] AND GMEIR8527-64-04 22:20:00None Seen (07/28/16 4:20 PM)[facility] NAQSO5682-16-16 22:20:00None Seen (07/28/16 4:20 PM)[facility] CLFZN5665-41-13 22:20:00 Negative (07/28/16 4:20 PM)[facility] CNEJC7689-56-88 22:20:00 Negative *NA*(07/28/16 4:20 PM)[facility] LAEUH8768-79-78 22:20:00Negative (07/28/16 4:20 PM)[facility] RHVAA3115-33-72 22:20:001.0[facility]annUR[facility] AND YKRJW0364-29-02 22:20:00Trace *ABN*(07/28/16 4:20 PM)[facility]UR[facility] AND BPNEU1957-43-63 22:20:00 Test Item Value Reference Range Interpretation Comments UA pH (test code = UA pH) 8.0 1 5.0-8.0 [facility] LNJEI6963-59-27 22:20:00Trace *ABN*(07/28/16 4:20 PM) [facility] ZCTGC3955-09-36 22:20:00Negative (07/28/16 4:20 PM) [facility] VBDLG3637-09-49 22:20:00Negative (07/28/16 4:20 PM) [facility] QUIDS1331-56-74 22:20:00Yellow *NA*(07/28/16 4:20 PM) [facility] OUSHG3233-38-21 22:20:00 Test Item Value Reference Range Interpretation Comments UA Spec Grav (test code = UA Spec 1.020 1 Grav) [facility] UPHBT8871-47-70 22:20:00Clear (07/28/16 4:20 PM) [facility] HermannCARDIAC OCLWZAA7159-94-73 17:40:000.4[facility] HermannCARDIAC WQNVYNB9984-44-78 17:40:001.0[facility] HermannCARDIAC BMVODAE4612-82-58 17:40:00 <0.02[facility] HermannCARDIAC OIWUYSS4820-85-61 17:40:13340Dyxykjuc [place] CHEM GFLSM0466-74-87 17:40:52544Bskicien HermannCHEM ESESH1403-03-60 17:40:003.9 [facility] HermannCHEM VGOXE8676-51-40 17:40:008.0[facility] HermannCHEM PANEL 2016-07-27 17:40:0011[facility] HermannCHEM HLQVG5392-55-46 17:40:10083Jhqtuiqo HermannCHEM QZQYX1585-15-03 17:40:000.76[facility] HermannCHEM UBQXT6115-31-45 17:40:0093[facility] HermannCHEM QLCMH0543-19-31 17:40:000.3[facility] HermannCHEM ASCFH6004-69-17 17:40:0029[facility] HermannCHEM BGOVD5321-16-70 17:40:0091 [facility] HermannCHEM LWEEJ5061-40-93 17:40:0016.4[facility] HermannCHEM PANEL 2016-07-27 17:40:0014Mem[facility] HermannCHEM HXDAI9357-83-76 17:40:001.0[facility] HermannCHEM VCXYF5452-11-50 17:40:004.1[facility] HermannCHEM MFNUB8743-71-50 17:40:008.3[facility] HermannCHEM YSHSH4941-54-04 17:40:0027[facility] HermannCHEM GDLOG5665-34-01 17:40:0024[facility] HermannCHEM QXHVU4079-40-45 17:40:003.4 [facility] HermannCHEM KEJMH3330-41-03 17:40:31665Yctqkbcs HermannHEMATOLOGY 2016-07-27 17:40:0070.6[facility] VadwuwcHVZWGMLYEP7227-42-42 17:40:007.7[facility] AhkwmguZLYJTIXRBZ1281-04-77 17:40:0019.1[facility] PxcicozPPPVMCWFKN1485-90-97 17:40:001.1[facility] VchcwluUVXOTYKMWK4375-95-56 17:40:001.5[facility] NNJWTFNLSB8592-14-41 17:40:000.1[facility] QkkszrcGTKWBNORHI1697-58-12 17:40:000.1 [facility] WcfpfhfIAXJEPMERB0203-02-53 17:40:004.2[facility] HermannHEMATOLOGY 2016-07-27 17:40:000.5[facility] ArmcqpsJNUEWVBYYY9570-68-22 17:40:001.1[facility] BykzmwtJFKPFUKUYK9680-57-79 17:40:00 Test Item Value Reference Range Interpretation Comments PT (test code = PT) 13.6 s 12.0-14.7 [facility] MbiuvzaEYUKDPOJHA3226-33-08 17:40:001.02[facility] HermannHEMATOLOGY 2016-07-27 17:40:00 Test Item Value Reference Range Interpretation Comments PTT (test code = PTT) 28.3 s 22.9-35.8 [facility] VfiymgrKSOXAOZFHY0977-86-40 17:40:008.0[facility] HermannHEMATOLOGY 2016-07-27 17:40:44508Bmjxzqru AnvrfnsUOYWILADFA9773-00-14 17:40:0014.5[facility] ZzypvhtEHOZVGSTKM7331-41-62 17:40:006.0[facility] OjcuzeaDJKDVTBOUN8414-91-57 17:40:0084.1[facility] OkjnnrpNPXRLYZGXM5037-81-97 17:40:0042.3[facility] TYFFINUGFF1949-32-15 17:40:0014.3[facility] WbwdnzhFBHJBSFRCD3595-93-34 17:40:00 5.03[facility] AckfpviKFCOAYUMFT5858-40-11 17:40:00 Test Item Value Reference Range Interpretation Comments MCH (test code = MCH) 28.5 pg 27.0-31.0 [facility] DitjxejHRLESKAKYO7434-30-14 17:40:0033.9[facility] HermannLIPIDS 2016-07-27 17:40:005.52[facility] VtbsoltBWDRDH8372-40-63 17:40:0023[facility] HpjnvajKMVSVJ6573-77-00 17:40:98721Tgifhapq AghyvrtPAOSYM6298-33-71 17:40:48373 [facility] HgdnvtxEZTKYE7463-62-56 17:40:0042[facility] SxkntlgJFOCOT0742-08-56 17:40:0062[facility] HermannSPECIAL UHEDJBNJG3946-59-34 17:40:005.9[facility] HermannCHEM IUYWA1433-93-86 21:19:0077[facility] HermannCHEM UQCSV2307-53-15 21:19:0030[facility] HermannCHEM VQTKI7646-79-42 21:19:17236Zrrhgocy HermannCHEM EXDNX1005-37-01 21:19:002.7[facility] HermannCHEM QWBQD8632-32-76 21:19:91283 [facility] HermannCHEM QXAQE5910-61-69 21:19:008.1[facility] HermannCHEM PANEL 2016-03-07 21:19:0011.7[facility] HermannCHEM RMCWB9597-23-85 21:19:007[facility] HermannCHEM NJRNR2920-59-27 21:19:001.27[facility] HermannCHEM AHKYE4511-04-39 21:19:64595Lelijcwc AyobsvdBUPSNSVVZZSV3711-29-76 21:19:002.7[facility] [place] DRUG IVIOIR3939-48-79 18:30:00Negative *NA*(03/07/16 1:30 PM)[facility] QVAEIQ3107-09-70 18:30:00Negative *NA*(03/07/16 1:30 PM)[facility] FGKFMI2786-43-75 18:30:00Negative *NA*(03/07/16 1:30 PM)[facility] ADLYYM0355-20-43 18:30:00Negative *NA*(03/07/16 1:30 PM)[facility] GEYZHD0897-15-48 18:30:00Negative *NA*(03/07/16 1:30 PM)[facility] BOBGKP9529-97-56 18:30:00Negative *NA*(03/07/16 1:30 PM)[facility] DEPIOH6002-72-06 18:30:00See Note *NA*(03/07/16 1:30 PM)[facility] FNVOUZ5548-28-77 18:30:00Negative *NA*(03/07/16 1:30 PM)[facility] SAQGL1716-73-84 18:30:00None Seen (03/07/16 1:30 PM)[facility] LCJGE7653-41-45 18:30:00Performed (03/07/16 1:30 PM)[facility] ONLGG2443-33-57 18:30:00Negative (03/07/16 1:30 PM)[facility] STOOL 2016-03-07 18:30:00Positive *ABN*(03/07/16 1:30 PM)[facility] STOOL 2016-03-07 18:30:002.0[facility] HTFOQ7770-79-64 18:30:00Negative (03/07/16 1:30 PM)[facility] SQVGY7557-66-35 18:30:00Moderate *ABN*(03/07/16 1:30 PM)[facility] KKLZP5126-86-49 18:30:00Negative (03/07/16 1:30 PM)[facility] DHKVJ4855-14-15 18:30:00Clear (03/07/16 1:30 PM)[facility] RSWUA3910-10-96 18:30:00 Test Item Value Reference Range Interpretation Comments UA pH (test code = UA pH) 5.5 1 5.0-8.0 [facility] KBJNX7724-24-47 18:30:00>=1.030 *ABN*(03/07/16 1:30 PM)[facility]annCARDIAC GNZRWBB2649-91-91 18:25:000.3[facility] HBUUZHH5796-76-38 18:25:001.5[facility] MWSIDJY6457-83-87 18:25:00 501[facility]annC[facility]AC JZZHCVH3703-76-38 18:25:008[facility] VDQVDLD7966-58-74 18:25:000.06[facility] JXJRNRA4067-60-96 18:25:00 7[facility]annCHE[facility] FWSQC6922-79-28 18:25:000.9[facility]annCHEM PANEL 2016-03-07 18:25:0089[facility]CHE[facility] YXUJV0454-72-12 18:25:61720Mwuchris HermannCHEM FISVP8149-98-36 18:25:000.9[facility]annCHE[facility] DKGUZ5180-87-05 18:25:003.9[facility]CHE[facility] MEHJY4037-73-33 18:25:0052[facility] TGPFY1901-06-30 18:25:003.7[facility]annCHE[facility] JTEWU5699-42-84 18:25:007.6 [facility]CHE[facility] KCFTA5854-64-33 18:25:0013.5[facility]annCHEM PANEL 2016-03-07 18:25:009.1[facility]annCHE[facility] ZFWSK2870-14-26 18:25:005[facility]CHE[facility] XWYQR5677-44-02 18:25:0064[facility]CHE[facility] VAWJA8761-11-79 18:25:001.47[facility]annCHE[facility] KSGWH7487-57-93 18:25:33163Sgcojfsj HermannCHEM REGSL8667-74-98 18:25:0030[facility]annCHE[facility] ZNWZT6616-59-83 18:25:002.5 [facility]CHE[facility] KJOVV6617-25-87 18:25:0099[facility]annCHE[facility] PANEL 2016-03-07 18:25:007[facility]CHE[facility] GJBMA6063-12-74 18:25:99938Yurzpkjc NmqehlmIRNXBGREWN3099-11-88 18:25:005.7[facility] LlkbeqxNJDXZOMUGF1564-31-26 18:25:001.3[facility] PvjlyfyMAGIECWHBN6113-89-32 18:25:000.1[facility] IMKSTPIRBW1044-58-32 18:25:000.1[facility] SdqyfyqMCKNRPABNM6815-56-84 18:25:000.7 [facility] UaozgkfSGATTXTZIU9947-04-39 18:25:0070.8[facility]annHEMATOLOGY 2016-03-07 18:25:000.9[facility] FgxwbqyJWJIKBHKPZ4516-55-81 18:25:001.5[facility] KvwaurnNLPCESNTEY1680-78-98 18:25:0010.7[facility] OvvomixFNWJRLQZGL9224-60-99 18:25:0016.3[facility] SqrlyauVRYPNTNKFW5128-36-62 18:25:0014.2[facility] [place] JKPULGIBIH5170-75-25 18:25:0043.6[facility] ItyqtryFJAMBMNFLZ6279-36-95 18:25:00 32.6[facility] ZvmnsvkJACOYAHSXK5245-78-67 18:25:0015.1[facility]annHEMATOLOGY 2016-03-07 18:25:0087.6[facility] WzcukpbKIMKJBOPFC1668-36-80 18:25:00 Test Item Value Reference Range Interpretation Comments MCH (test code = MCH) 28.6 pg 27.0-31.0 [facility] AhskijaRLAVGJNUDL4932-78-44 18:25:008.0[facility]annHEMATOLOGY 2016-03-07 18:25:004.97[facility] OcvrbfpRDJWDHFMUD2512-78-72 18:25:52310Cdxsawuv ZxghgzdWGXUAKVSIG8385-64-77 18:25:008.5[facility]annCARDIAC ZPPSGIO4404-09-11 17:22:000.7[facility]annCARDIAC YEJUVZY6926-56-34 17:22:72611Slkpswmz [place] CARDIAC FBBKJRO9929-59-83 17:22:005.2[facility]annCARDIAC FHBIKIG3050-92-83 17:22:000.02[facility]annCHEM IGIOE0199-43-25 17:22:79019Oyezfljt HermannCHEM LPFZJ9936-89-77 17:22:004.2[facility]annCHEM TNVUV4216-68-34 17:22:006 [facility]annCHE[facility] IZQUR4433-68-38 17:22:000.8[facility]annCHEM PANEL 2016-02-18 17:22:008.2[facility]annCHEM CNXDL4736-39-88 17:22:96028Yvjtjuyc HermannCHEM YSNEP3517-94-66 17:22:0062[facility]annCHEM AIAUB5044-54-27 17:22:0084[facility]annCHEM REPSO8530-89-68 17:22:005[facility]annCHE[facility] JTGFM9179-87-92 17:22:000.90[facility]annCHEM TBAXG9890-24-19 17:22:0096 [facility]annCHE[facility] XDNAG9062-62-58 17:22:31890Oakjuxjr HermannCHEM PANEL 2016-02-18 17:22:004.7[facility] HermannCHEM EGVAI5726-76-73 17:22:0036[facility]annCHEM RCVBZ0913-19-64 17:22:005.7[facility] HermannCHEM DMSMP2596-20-37 17:22:64586Dtzshlzt HermannCHEM JQPGT0265-52-35 17:22:000.6[facility] HermannCHEM ZIEGQ2967-87-94 17:22:007.5[facility] HermannCHEM ANZAK5783-11-33 17:22:003.3 [facility] VhycoyxKYUOFEGFEF2665-08-88 17:22:0062.9[facility] HermannHEMATOLOGY 2016-02-18 17:22:0022.7[facility] OdfvblbPKLPOYFNTX9693-33-58 17:22:00Normal (02/18/16 12:22 PM)[facility] InuusgqKUMXQHOIPO5930-02-15 17:22:00Normal (02/18/16 12:22 PM)[facility] ZfsgfazXCUMVHDOUH8381-01-50 17:22:003.9[facility] XJJDEASIOF8492-26-60 17:22:001.2[facility] XzuunywEXZSYLLNFR0312-07-38 17:22:002.7 [facility] NojaoiaGOPZUTLADK8630-84-67 17:22:0010.5[facility] HermannHEMATOLOGY 2016-02-18 17:22:000.1[facility] HafqifrUHXVVFLWAT9158-52-00 17:22:000.6[facility] IcamvafSAABQFZBRK0578-00-36 17:22:000.2[facility] FxpfcgsEFYWEGCNPJ3316-25-80 17:22:001.4[facility] VlsmbdyBIXZFLTAMB9658-45-01 17:22:006.1[facility] YGBWVVEVAM9369-82-18 17:22:0013.0[facility] PjojrndFLUUBHDXAO7942-92-90 17:22:00 14.4[facility] UuvrkvxEGOEJKHSKB1599-07-54 17:22:0087.9[facility] HermannHEMATOLOGY 2016-02-18 17:22:0032.8[facility] UctzynkPHQTKCSSPC3103-74-66 17:22:0039.6[facility] TigdvwuBGKMBTVDHH9990-96-19 17:22:004.51[facility] MdksihqRYCDCLHUYA9757-36-79 17:22:31049Ugerrnvs KaqkwlbCVPDRULLMO1444-31-09 17:22:00 Test Item Value Reference Range Interpretation Comments MCH (test code = MCH) 28.9 pg 27.0-31.0 [facility] XonmkgnGTMAXHONHP2057-08-38 17:22:009.5[facility]annURINE AND STOOL 2014-11-22 16:38:00Trace *ABN*(11/22/14 11:38 AM)[facility] STOOL 2014-11-22 16:38:00Negative (11/22/14 11:38 AM)[facility] STOOL 2014-11-22 16:38:002.0[facility] AND VLWYA2274-06-45 16:38:00Negative (11/22/14 11:38 AM)[facility] MPZUE4939-43-27 16:38:00Negative (11/22/14 11:38 AM)[facility] DNNYO7179-08-61 16:38:00Yellow *NA*(11/22/14 11:38 AM)[facility] XTFKR4823-13-93 16:38:00Clear (11/22/14 11:38 AM)[facility] XVYSB6542-22-62 16:38:00Negative (11/22/14 11:38 AM)[facility] NTOSI3329-10-10 16:38:00 Test Item Value Reference Range Interpretation Comments UA pH (test code = UA pH) 6.5 1 5.0-8.0 [facility] YJWMC6318-85-07 16:38:00 Test Item Value Reference Range Interpretation Comments UA Spec Grav (test code = UA Spec 1.025 1 Grav) [facility] PGDXB4370-83-85 16:38:00Small *ABN*(11/22/14 11:38 AM) [facility] HermannCHEM GGDPU2489-31-92 16:30:0077[facility] HermannCHEM PANEL 2014-11-22 16:30:33304Eazsjzza HermannCHEM PBSNX9426-24-94 16:30:000.4[facility] HermannCHEM OQHKZ8476-19-42 16:30:61998Vjfieuqc HermannCHEM JZUWO9062-32-67 16:30:0083[facility] HermannCHEM HEQXO3756-78-16 16:30:004.2[facility] HermannCHEM UZJVM2318-10-10 16:30:008.5[facility] HermannCHEM HSQVJ4776-14-68 16:30:009.0 [facility] HermannCHEM MSHAN9767-77-99 16:30:0057[facility] HermannCHEM PANEL 2014-11-22 16:30:0030[facility] HermannCHEM GQTLF0946-65-20 16:30:48819Ldotfjox HermannCHEM PYYEU8891-66-67 16:30:003.6[facility] HermannCHEM RLBFU6472-69-10 16:30:000.9[facility] HermannCHEM DCOCG2297-06-43 16:30:008[facility] HermannCHEM TOMBJ9352-97-58 16:30:52695Fzdnguwc HermannCHEM FBOGT2947-65-66 16:30:0086 [facility]annCHEM FSFVD6596-14-61 16:30:009[facility] HermannCHEM PANEL 2014-11-22 16:30:004.3[facility] HermannCHEM LIAVT5696-91-68 16:30:001.0[facility] HermannCHEM GGSIL5598-34-23 16:30:009.6[facility] HocjswzDGJPAXAMWH4555-57-89 16:30:0033.0[facility] YvznwecZDEPAUWUJF1583-44-93 16:30:00 Test Item Value Reference Range Interpretation Comments MCH (test code = MCH) 28.5 pg 27.0-31.0 [facility] UdgbzfoUEVVCRWGPF9286-76-88 16:30:0086.3[facility] HermannHEMATOLOGY 2014-11-22 16:30:009.3[facility] FtjummiARPVPRXCQW4075-25-05 16:30:31878Pbmncisb FsxlnoyIMOCCDPRBS8020-13-27 16:30:0015.3[facility] QqtddzsMDQYGJQFEH2386-12-33 16:30:005.09[facility] XbxzhibDJMVTRXKCN0520-48-93 16:30:0043.9[facility] MOZSATYSGV5470-84-18 16:30:0014.5[facility] SyrpqgjCSOMVEQOGW1122-44-57 16:30:00 8.2[facility] UsygpqpCHNPUSDVVN2382-00-83 16:30:000.8[facility] HermannHEMATOLOGY 2014-11-22 16:30:006.0[facility] WrilnplITOYIWRSSR9341-98-85 16:30:000.6[facility] UxonjdcGBGUJMXNWS2306-16-46 16:30:001.4[facility] JerveejJABLVMNFUS8996-27-41 16:30:000.1[facility] PgbhjknWATNNGTLHE9792-31-48 16:30:000.1[facility] BOAHYSBTCJ2061-13-68 16:30:007.5[facility] HmelqetLBRCNIYWQJ4750-40-00 16:30:001.5 [facility] LbzjpxdNUAKPHPXKI9104-05-43 16:30:0017.4[facility] HermannHEMATOLOGY 2014-11-22 16:30:0072.8[facility] HermannCHEM WAZBQ6821-57-61 10:42:002.2[facility] HermannCHEM AKDYA9647-40-23 10:42:000.26[facility] HermannCHEM SEOOD5403-88-92 10:42:0093[facility] HermannCHEM HVCEB7862-00-69 10:42:0011[facility] HermannCHEM DNSLV4600-79-25 10:42:84635Qkeorrxi HermannCHEM FNGUW9299-82-50 10:42:001.1 [facility] HermannCHEM IPICE1854-05-71 10:42:90781Rxcimxqi HermannCHEM PANEL 2014-08-17 10:42:04880Umyixhpu HermannCHEM ITUQM0136-16-10 10:42:003.9[facility] HermannCHEM TDPCD5742-78-92 10:42:0024[facility] HermannCHEM OKKCB1650-60-10 10:42:008.4[facility] HermannCHEM OBIYB4933-62-60 10:42:0012.9[facility] HermannCHEM WRWWY8759-58-83 10:42:003.8[facility] ZpakvfrCQEURCWCJD2708-82-03 10:42:000.1 [facility] YrmhokoNXPGMNYMSL4259-84-64 10:42:000.3[facility] HermannHEMATOLOGY 2014-08-17 10:42:001.1[facility] AxyzvqfDWSCGFHXUO0682-27-52 10:42:001.3[facility] SbaiqqgUIIVWNWCYC5054-13-30 10:42:007.3[facility] RrroaxxIROHFIEEXK6629-10-91 10:42:000.9[facility] RzquxmxEWIQFBUJBX8247-71-55 10:42:0010.7[facility] HEGHEBRNPO0650-29-85 10:42:0013.2[facility] NkswetjXZVLKTTETB8063-72-84 10:42:00 72.5[facility] VzyoywdSFZWQYVEON0989-76-87 10:42:002.7[facility] HermannHEMATOLOGY 2014-08-17 10:42:0016.2[facility] SkqzccyPNWAMBWXRD2382-26-38 10:42:25109Azqhmicp PlaodvcIOGWEINQYR9246-54-52 10:42:009.6[facility] QjymggdVQZYSYUWIX7915-68-66 10:42:0034.8[facility] VpbdxzlPIBIKKOTMJ2169-04-33 10:42:0089.3[facility] OQGGKFRLZP6331-40-38 10:42:00 Test Item Value Reference Range Interpretation Comments MCH (test code = MCH) 29.2 pg 27.0-31.0 [facility] OwxbrxfDJYLTHULXI4995-70-87 10:42:0032.7[facility] HermannHEMATOLOGY 2014-08-17 10:42:0011.4[facility] HprjyytVHONCXOAIG5532-65-87 10:42:0010.0[facility] QuhvedxXNDWWJMDOJ1221-28-45 10:42:003.89[facility] HermannCARDIAC ENZYMES 2014-08-16 09:57:25051Louzyqig HermannCARDIAC ULBNMNV8048-60-09 09:57:000.06 [facility] HermannCARDIAC KFPJAOC1722-15-84 09:57:08888Ufyyywbr HermannCHEM PANEL 2014-08-16 09:57:002.0[facility] HermannCHEM UOMRV4725-42-88 09:57:002.8[facility] AimsoykMZEEWWVTDANG5506-81-62 09:57:0012.6[facility] PapinmkYESTNWOAOGZB1131-96-38 09:57:0093[facility] GpzvibwQCZKCXXBZNXT2151-03-50 09:57:49858Lmhgwekh [facility] TCDEZDUAKMRU0143-58-69 09:57:001.1[facility] AagomqkUWPPAKOKTQQU3405-10-72 09:57:0010[facility] JwcvrliBKKJJKGXTMYP5996-88-37 09:57:0024[facility] YVYJKXSGVHNH1139-70-08 09:57:71535Msqiucdq BqzztljZRNIVOTIRTVQ0737-32-33 09:57:42182Zhltdsgp AcpbyhfXCKPWKLQPQJF6383-70-30 09:57:003.6[facility] BFYBNDFDBPKJ9198-97-71 09:57:008.3[facility] WmxhqaaZJGYMCYUQV2838-61-30 09:57:00 8.0[facility] AkqceqdRKEKFSUKLL0593-86-50 09:57:0081.9[facility] HermannHEMATOLOGY 2014-08-16 09:57:000.6[facility] EddimgoZAKDZGKMEU5098-30-48 09:57:008.7[facility] NvnpkrpSSJQMBPZEB8153-70-26 09:57:000.1[facility] CjnzxwkXZVRYXMMIA4297-18-92 09:57:000.1[facility] TeoosjmSYVTNKGCKM3835-68-44 09:57:0012.1[facility] QNVSYUCTGX8838-39-40 09:57:000.8[facility] ActkqkvBCXQUJGCDX8919-18-74 09:57:001.2 [facility] DzakbjwBDMUTKZTGJ6997-89-14 09:57:001.3[facility] HermannHEMATOLOGY 2014-08-16 09:57:0014.8[facility] OgpajwbRUXUSNYNJL3479-28-20 09:57:64803Wulitutz SdofqqzDOFMQGBAIQ3303-07-04 09:57:0016.2[facility] GlkqqseDIFEVMSPRQ2041-10-39 09:57:00 Test Item Value Reference Range Interpretation Comments MCH (test code = MCH) 28.3 pg 27.0-31.0 [facility] AgofwbdNXGFQVJKYY2077-86-72 09:57:0031.7[facility] HermannHEMATOLOGY 2014-08-16 09:57:009.4[facility] TwdcpwlDMCJRJQOSP9121-20-71 09:57:0039.5[facility] TpmngwxKYQXCLNYAY3502-00-69 09:57:0089.1[facility] UhgxorePYEDHZZDLI8538-80-35 09:57:0012.6[facility] WaeummlMIONQIQBPE3871-55-93 09:57:004.44[facility] MOLECULAR DGMSIIJDIP2433-50-03 05:56:00Negative 12(08/15/14 11:56 PM)[facility] HermannMOLECULAR KPHYHWHNOW4274-24-93 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 Swab (08/15/14 11:56 PM) [facility]annMOLECULAR JMBPOOIEMJ2687-41-70 05:56:00Negative (08/15/14 11:56 PM)[facility]annMOLECULAR NDQESMVIBR3675-82-88 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 Swab (08/15/14 11:56 PM)[facility]annMOLECULAR DSQCSLZYGF1525-84-84 05:56:00 Negative (08/15/14 11:56 PM)[facility] HermannMOLECULAR SKAIPIRBPW5475-67-73 05:56:00Negative 13(08/15/14 11:56 PM)[facility] HermannMOLECULAR DIAGNOSTIC 2014-08-16 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 Swab (08/15/14 11:56 PM)[facility] HermannMOLECULAR ZYSHGGRVAT1762-50-76 05:56:00Negative 14(08/15/14 11:56 PM)[facility] MOLECULAR YEWGYVNLIW9438-26-37 05:56:00Negative (08/15/14 11:56 PM)[facility] HermannMOLECULAR NECMEPTUIC8396-96-30 05:56:00Negative (08/15/14 11:56 PM) [facility]annCARDIAC RGIVBWT8983-98-21 22:15:79887Vmnqrojm HermannCARDIAC BWHHKCG3410-01-01 22:15:000.04[facility] HermannCHEM TQPBU6859-42-36 22:15:001.8 [facility] HermannCHEM RORRR2818-41-65 22:15:001.9[facility] HermannCHEM PANEL 2014-08-15 22:15:0093[facility] HermannCHEM DYFRI1586-86-42 22:15:0096[facility] HermannCHEM VGDTH1120-83-56 22:15:0012[facility] HermannCHEM VWJBF0864-34-76 22:15:0022[facility] HermannCHEM ERZEG3090-20-46 22:15:003.7[facility] HermannCHEM YIPVX5977-27-34 22:15:96955Kcsnonvd HermannCHEM IAUZO2025-89-38 22:15:001.1 [facility]annCHEM SRWDS8024-72-19 22:15:44304Rsfdekdt HermannCHEM PANEL 2014-08-15 22:15:008.5[facility] HermannCHEM TGHDX7276-35-99 22:15:0013.7[facility] MwuirheWNDXFKEPDS7591-02-53 22:15:000.2[facility] WekzfhvHGJNBXLXLI9137-35-33 22:15:001.4[facility] GldolhkNASEBRQPJM8877-23-36 22:15:001.1[facility] HJBGOZCKOT8205-22-70 22:15:007.5[facility] QeasppcMLRIZHBSEZ6767-02-25 22:15:001.1 [facility] PdarlzoKKYTEWATQT2462-03-07 22:15:000.2[facility] HermannHEMATOLOGY 2014-08-15 22:15:001.2[facility] RxdhsgzQNYXLKPNVM9748-26-01 22:15:008.6[facility] TgofvqmWOYOSJBKGP6512-70-82 22:15:0081.4[facility] JqxzhsrCTUEDTOGCV4767-42-17 22:15:0011.4[facility] EysdqdyGSSEVLIWHT0943-73-76 22:15:80821Rocoxagr [place] UQPZXAJNDA1673-69-43 22:15:0016.4[facility] QojcromNEEPVBUWFC5033-63-67 22:15:00 9.4[facility] OlxjrdmGEJVKDWFLK5659-89-15 22:15:0031.1[facility] HermannHEMATOLOGY 2014-08-15 22:15:00 Test Item Value Reference Range Interpretation Comments MCH (test code = MCH) 27.8 pg 27.0-31.0 [facility] XmvfjjaHOVCFNMOBI1559-19-17 22:15:004.61[facility] HermannHEMATOLOGY 2014-08-15 22:15:0014.1[facility] SqeoelsAHQGWBYTSY5540-06-41 22:15:0089.2[facility] WuscudrEDHHKMJOTI1776-59-13 22:15:0041.1[facility] PzhoxmeQYMBAAAYDR0426-61-34 22:15:0012.8[facility] HermannCARDIAC EELZGPI3422-09-79 17:55:44706Ciseoexs HermannCARDIAC JVDDRUG1056-70-27 17:55:000.04[facility] HermannDRUG SCREEN 2014-08-15 10:00:00Negative *NA*(08/15/14 4:00 AM)[facility] HermannDRUG SCREEN 2014-08-15 10:00:00Negative *NA*(08/15/14 4:00 AM)[facility] HermannDRUG SCREEN 2014-08-15 10:00:00Negative *NA*(08/15/14 4:00 AM)[facility] HermannDRUG SCREEN 2014-08-15 10:00:00Negative *NA*(08/15/14 4:00 AM)[facility] HermannDRUG SCREEN 2014-08-15 10:00:00See Note 9*NA*(08/15/14 4:00 AM)[facility]annDRUG SCREEN 2014-08-15 10:00:00Negative *NA*(08/15/14 4:00 AM)[facility]annDRUG SCREEN 2014-08-15 10:00:00Negative *NA*(08/15/14 4:00 AM)[facility]annDRUG SCREEN 2014-08-15 10:00:00Negative *NA*(08/15/14 4:00 AM)[facility] HermannBACTERIAL - QYZCCQXY3233-19-23 15:57:31Negative (08/14/14 9:57 AM)[facility] LUPFU8310-21-05 15:25:00Negative (08/14/14 9:25 AM)[facility] CLSAO2888-66-71 15:25:00Negative (08/14/14 9:25 AM)[facility] AND EIWDQ9169-49-31 15:25:00 Test Item Value Reference Range Interpretation Comments UA Spec Grav (test code = UA Spec 1.025 1 Grav) [facility] IQMIQ1403-53-20 15:25:00Clear (08/14/14 9:25 AM) [facility] PZXYJ6197-72-59 15:25:00 Test Item Value Reference Range Interpretation Comments UA pH (test code = UA pH) 6.0 1 5.0-8.0 [facility] OJMRH5334-39-80 15:25:00Yellow *NA*(08/14/14 9:25 AM) [facility] CYSAQ4900-09-29 15:25:00Negative *NA*(08/14/14 9:25 AM) [facility] WLURH7336-86-41 15:25:00Negative (08/14/14 9:25 AM) [facility] BTYMY1023-55-61 15:25:001.0[facility]UR[facility] AND IYAOK5797-44-64 15:25:00Negative (08/14/14 9:25 AM)[facility] QGUCG4037-18-70 15:25:00None Seen (08/14/14 9:25 AM)[facility] QTTDW1029-01-36 15:25:00None Seen (08/14/14 9:25 AM)[facility] PMESC5904-46-49 15:25:00None Seen (08/14/14 9:25 AM)[facility]annCARDIAC DZADYML1663-57-78 14:49:0094[facility]annCARDIAC XMZTUIP8687-33-87 14:49:00 5.6[facility]annCARDIAC HSQZKET8459-58-82 14:49:000.8[facility] HermannCHEM MHEGM6834-38-94 14:49:001.0[facility] HermannCHEM PBTCH3268-35-24 14:49:003.7 [facility] HermannCHEM XMCOO4742-01-05 14:49:000.8[facility] HermannCHEM PANEL 2014-08-14 14:49:008[facility] HermannCHEM QDIXS3351-02-40 14:49:007.5[facility] HermannCHEM HJIQY7538-47-79 14:49:003.8[facility] HermannCHEM WPULD9936-71-82 14:49:43384Lxxghogb HermannCHEM ROPGB0089-78-63 14:49:0033[facility] HermannCHEM QOQNI3151-98-99 14:49:0027[facility] HermannCHEM HGWVH5199-90-97 14:49:001.2 [facility] HermannCHEM SOIOC8418-41-74 14:49:000.05[facility] HermannHEMATOLOGY 2014-08-14 14:49:001.01[facility] YfbfvdaQSGCHNUNQR2345-26-21 14:49:00 Test Item Value Reference Range Interpretation Comments PTT (test code = PTT) 31.0 s 22.9-35.8 [facility] IjpjpdvKOWZRKBAEQ8176-91-69 14:49:00 Test Item Value Reference Range Interpretation Comments PT (test code = PT) 13.3 s 12.0-14.7 [facility] PuvjxydNTXVSKQCXR4993-13-28 14:49:001+ *ABN*(08/14/14 8:49 AM)[facility] EslgbeyFVNXRGXZSA0365-08-85 14:49:00Normal (08/14/14 8:49 AM)[facility] VIRAL - ZRKJRKEJ9273-34-42 14:49:00Negative (08/14/14 8:49 AM)[facility] VIRAL - FLUSQFFJ4181-71-33 14:49:00Negative 15(08/14/14 8:49 AM)[facility] CHEM MTOKE2601-68-79 09:38:002.1[facility] HermannCHEM FHMZN0533-45-05 09:38:004.9 [facility] HermannCHEM UDUNH0032-72-22 09:38:12682Ivsqszmc HermannCHEM PANEL 2014-05-13 09:38:0023[facility] HermannCHEM OPHZM0640-18-82 09:38:009.4[facility] HermannCHEM FPKIW7568-05-10 09:38:004.9[facility] HermannCHEM JAYUE8571-37-56 09:38:72490Jvkuxqyr HermannCHEM UWLJB1422-10-09 09:38:0083[facility] HermannCHEM XJLLQ6572-96-98 09:38:000.8[facility] HermannCHEM RIMXV3244-17-71 09:38:0011 [facility] HermannCHEM ILLIE0887-53-97 09:38:23511Vsmcrtap HermannCHEM PANEL 2014-05-13 09:38:0016.9[facility] NbyjfnaZUUNPSYJQR8788-45-87 09:38:000.3[facility] RojqwhvAHLYIAJBXP1980-62-41 09:38:001.3[facility] WhdubpuSUOUICQZZQ5733-88-26 09:38:001.2[facility] GbcwismWBGMWSUMRY1180-43-71 09:38:006.4[facility] RUJGZSGFQL4793-34-14 09:38:000.4[facility] MzusyuvKUEGAOPDRH5866-92-79 09:38:003.1 [facility] GvtlwfiFXHZZXTQVT5544-16-69 09:38:0069.3[facility] HermannHEMATOLOGY 2014-05-13 09:38:0014.0[facility] GyfiveiJAXJBFLVOQ0094-56-22 09:38:0013.2[facility] OkqcyyrGYETCAJFFX0687-17-07 09:38:0012.8[facility] IfwxatkPFFAFYZRBJ5268-15-36 09:38:004.62[facility] ItsgrwjQWRISFHBFA0040-26-40 09:38:0086.0[facility] SMAUWFZKKP0499-64-84 09:38:0039.7[facility] MevyrssHIOTJINERB7194-21-79 09:38:00 222[facility] MsinsxxJANECLJJKM1239-29-35 09:38:0014.3[facility] HermannHEMATOLOGY 2014-05-13 09:38:0032.3[facility] OiddudqGMMYTXGGRZ9369-20-68 09:38:00 Test Item Value Reference Range Interpretation Comments MCH (test code = MCH) 27.7 pg 27.0-31.0 [facility] QtykekoGEFSKTJRGR6853-91-12 09:38:008.9[facility] HermannHEMATOLOGY 2014-05-13 09:38:009.2[facility] HermannCARDIAC UHTWDIJ6064-34-80 08:01:000.3 [facility]annCARDIAC CDUSMKT1855-45-66 08:01:001.2[facility] HermannCARDIAC DRHWPFL9317-68-68 08:01:92604Bdtddubm HermannCARDIAC GKTXJHV4718-92-04 08:01:00 <0.02[facility] HermannCHEM VPDXF2187-33-19 08:01:002.2[facility] HermannCHEM TOIAR6118-82-21 08:01:63269Xirmcthn HermannCHEM XODHN0270-14-24 08:01:009.1 [facility] HermannCHEM LTZGY9429-10-32 08:01:0025[facility] HermannCHEM PANEL 2014-05-12 08:01:59080Jfnjvuxt HermannCHEM YUOIZ5872-30-83 08:01:004.1[facility] HermannCHEM MKIGP4809-62-91 08:01:07066Ipdazyds HermannCHEM WPFNC7200-73-63 08:01:000.9[facility] HermannCHEM OQNVS5289-84-27 08:01:006[facility] HermannCHEM GWIVY0885-16-60 08:01:0089[facility] HermannCHEM POJUN0501-83-69 08:01:0015.1 [facility] HermannCHEM HMKBA7617-61-08 08:01:004.6[facility] HermannHEMATOLOGY 2014-05-12 08:01:00 Test Item Value Reference Range Interpretation Comments MCH (test code = MCH) 28.3 pg 27.0-31.0 [facility] NxnhzxgVCUOUGNMOO0220-50-48 08:01:0033.1[facility] HermannHEMATOLOGY 2014-05-12 08:01:0014.2[facility] DqgsgudCEEYKUNHWE0517-71-69 08:01:22927Zskvpwfq IrhocofNEBFAPFPZP1009-31-24 08:01:009.5[facility] JrzasbjWNHXNSEKDO2793-47-40 08:01:008.9[facility] UeudiarBDDUEMNEZH4615-60-35 08:01:0012.6[facility] QRMKZLSPHJ8994-75-93 08:01:0085.3[facility] AioxzppCQMYFLFJPY6553-88-20 08:01:00 38.1[facility] CxcjrhhUOMHXLYSNM9197-38-74 08:01:004.47[facility] HermannHEMATOLOGY 2014-05-12 08:01:000.9[facility] MmgjqfxNPIQMCQOJU1980-86-33 08:01:001.3[facility] SzpqzbyLLREJPMSEJ3899-30-17 08:01:001.9[facility] ReanissJHJQXGHZAE5113-65-34 08:01:006.5[facility] CssgtnfXXKSAOXWHZ2639-16-91 08:01:000.4[facility] DHNWQHYLAT7110-77-38 08:01:0072.9[facility] NqhtzkfQIKZFEFQZA3183-60-95 08:01:00 9.8[facility] GkaeznpKQQPBYEIMK9573-51-70 08:01:0015.0[facility] HermannHEMATOLOGY 2014-05-12 08:01:000.2[facility] JgmpktkOBSNCBSEIE5375-12-55 08:01:00Negative *NA*(05/12/14 3:01 AM)[facility] Herm[facility]CARD[facility]AC YNZYQUT9253-27-07 21:43:49479 [facility] DFNHIFX9619-23-01 21:43:002.2[facility] UGCDSMW9537-16-37 21:43:000.5[facility] QCRWDMX4995-52-05 21:43:00 <0.010[facility] RIULNKT5363-06-67 21:43:00<0.02[facility] DUQRLNX0447-23-83 16:06:00<0.02[facility] ENZYMES 2014-05-11 16:06:00<0.010[facility] GDYEDRF4937-23-61 16:06:00 455[facility]AC ZAWOUIN7955-12-04 16:06:000.5[facility]AC NQRQZWR7508-18-52 16:06:002.2[facility]annCHEM ABDFH4791-58-01 11:47:412.9 [facility]annCHEM GZQBD9419-20-34 11:47:412.0[facility]annCARDIAC ENZYMES 2014-05-11 11:11:00<0.010[facility] GjocictQCPSXMGPXK8496-61-35 11:11:0011.9 [facility] AhimrtiFDSWKMPHSHKU4518-50-17 06:05:0013.9[facility] HermannELECTROLYTES 2014-05-11 06:05:24439Idrtkuge ScunsruGIXAFUDAMWKD4142-19-64 06:05:009[facility] TldijrmHRSJPZSXXWGA4671-12-27 06:05:41745Rzplopsb MlwctndIYQBMTXYPTZT4886-76-48 06:05:008.6[facility] LlkullyCTJRJTQRXUOW3688-65-35 06:05:0025[facility] UNGWVEIQXTKM7626-73-56 06:05:10189Tpasicwj BphgxksXPTSYDPNXHHT3460-95-70 06:05:001.0[facility] LjpudkfDUBUKHMTITRV5450-38-60 06:05:003.9[facility] XZPXWTCTZEOO9269-93-83 06:05:34495Dwvawnwo OnlrdqiHJEMOYKFHP3666-96-90 06:05:00 79.8[facility] IiocjmnOQEGXLYPLH9972-19-94 06:05:0010.5[facility]annHEMATOLOGY 2014-05-11 06:05:007.4[facility] BofebksJVNSGBXVBB4617-61-59 06:05:002.0[facility] BozsuwmZGAIGLDXVO9557-92-45 06:05:000.3[facility] CecftfqROTOZIXSJO5695-69-37 06:05:001.0[facility] JssllgfPTETSIGWUL2618-78-60 06:05:007.4[facility] MFPTUDEVER1368-90-61 06:05:000.7[facility] CdkglqwKDSXPMUDMQ0313-79-90 06:05:000.2 [facility] FrkdmgiXRTTSBAGGC3094-61-34 06:05:009.3[facility]annHEMATOLOGY 2014-05-11 06:05:89232Umasuqdq RnatgasJKNPGATDZG6787-70-93 06:05:009.3[facility] GwmynomBBQKVQKGQY5558-84-07 06:05:004.19[facility] NfdkwsnECMAPVCLTA2181-52-00 06:05:0011.8[facility] VzhqcfcYYLYTIUIPC8778-37-67 06:05:0086.3[facility] EQYGNSQAAD1050-35-57 06:05:0036.2[facility] EumnhatOKXVMDHTEZ9406-89-10 06:05:00 Test Item Value Reference Range Interpretation Comments MCH (test code = MCH) 28.2 pg 27.0-31.0 [facility] WzalajhSENAMUKIJM6175-78-51 06:05:0014.6[facility]annHEMATOLOGY 2014-05-11 06:05:0032.7[facility] VzoedxmHTZLMMTYIL3677-04-49 06:05:002.6[facility] HermannCHEM GDAVU8530-93-34 05:35:002.2[facility]annCHEM CIVAM7481-87-88 05:35:003.5[facility]annCHEM NCTZP6390-30-95 05:35:001.0[facility]annCHEM UAVOO1909-03-50 05:35:0014.4[facility]annCHEM XQGWV2391-38-66 05:35:009 [facility]annCHEM EXXPO7144-13-40 05:35:24627Fbkdkpac HermannCHEM PANEL 2014-05-08 05:35:0075[facility]annCHEM KHRIP5574-60-61 05:35:000.2[facility]annCHEM HVSKD4227-49-63 05:35:65113Kudmxrmx HermannCHEM JCCLO6889-10-40 05:35:47191Xyjfhphp HermannCHEM JHWQJ3431-77-49 05:35:001.0[facility]annCHEM SRUXJ5935-66-71 05:35:003.4[facility]annCHEM UGBJB2775-26-93 05:35:009 [facility]annCHEM BWAVA0499-93-66 05:35:003.6[facility]annCHEM PANEL 2014-05-08 05:35:0023[facility]annCHEM GJCVA8862-33-68 05:35:0023[facility]annCHEM PFVLQ1250-06-46 05:35:008.4[facility]annCHEM ZQYTW1604-74-68 05:35:00261Amfbibel HermannCHEM ITKRE0163-47-58 05:35:0027[facility]annCHEM LLQWO4449-89-22 05:35:007.1[facility] VpxipveICESGSQUSI6893-59-30 05:35:00 Test Item Value Reference Range Interpretation Comments PTT (test code = PTT) 32.9 s 22.9-35.8 [facility] OyaokegEGRYNDCCOI7953-56-30 05:35:00 Test Item Value Reference Range Interpretation Comments PT (test code = PT) 13.0 s 12.0-14.7 [facility] DgorvloJYAIXJGXYC6075-87-25 05:35:000.98[facility]annHEMATOLOGY 2014-05-08 05:35:00 Test Item Value Reference Range Interpretation Comments MCH (test code = MCH) 28.5 pg 27.0-31.0 [facility] OerofldBCCFKVZNTM8993-26-91 05:35:0085.0[facility]annHEMATOLOGY 2014-05-08 05:35:0036.8[facility] TzdkbqwURBNFYABJW5689-27-50 05:35:008.6[facility] EpkwrafJOBMMPEVEB5208-60-48 05:35:0012.3[facility] DzcpgzkSYKGABMGYS0002-73-11 05:35:004.33[facility] QrbsrimJMYDCOLTVH8385-26-33 05:35:24616Pjvnrmpc [facility] BJJTOAVKIS5232-24-13 05:35:0014.3[facility] OeisfqgNANKSDLWKA4513-94-17 05:35:00 33.6[facility] SwcvfiuNVZAYVHKCX4889-34-51 05:35:008.9[facility]annHEMATOLOGY 2014-05-08 05:35:002.5[facility] PfcqppgHPLGZSPKWP7030-03-96 05:35:000.5[facility] ZehoaxuXKTDJJUGQQ8306-23-40 05:35:005.9[facility] DnuyvwhACGRJKDFPU7155-43-79 05:35:001.7[facility] WldbexyXUTWSHIJDL3080-33-63 05:35:000.7[facility] VUJKGBAHJF9762-18-95 05:35:000.2[facility] MfqjlspDAMIKOUKEC5333-17-45 05:35:00 20.2[facility] NimjvkvGBGSRNGYPN6898-50-63 05:35:008.2[facility]annHEMATOLOGY 2014-05-08 05:35:0068.6[facility]annCARDIAC KYWKUIZ8984-08-67 10:08:19753 [facility]annCHEM ANNDT5909-24-20 10:08:002.0[facility] HermannCHEM PANEL 2014-02-09 10:08:006.4[facility] HcamxhbIARUBUQKMTTU0054-80-25 10:08:009.6[facility] QdibcupZYWRHKVYUBJQ5495-29-28 10:08:02934Yjeghjor WwhdrojWHSQAUITFLNP3746-59-59 10:08:008.9[facility] PsjuphiYJBUOGUKQFOW6057-43-94 10:08:001.0[facility] GPLGWXCAONMK2657-17-45 10:08:55724Emgeifvp GgnddzkOFTILTRCCNLT6378-81-29 10:08:0032[facility] XqeojfoXWUGZDPJLBIJ6999-29-23 10:08:22239Aboqzywq [place] VYKPAGIOHPVX5117-82-20 10:08:003.6[facility] EldtmctNIFTPMPYYICR7642-23-69 10:08:0013[facility] HwpcfvuUBUXCUHKMWZL7803-24-02 10:08:0091[facility] WFWROFSXTS8751-46-32 10:08:005.7[facility] PhnwuefEHUCADLFVG3077-92-00 10:08:00 4.40[facility] EwcpdwwLYDFMIIIRF0542-43-09 10:08:008.8[facility]annHEMATOLOGY 2014-02-09 10:08:0014.0[facility] JtneaicGNHSQNLHIF3933-79-96 10:08:70816Ynjbgged XdwotihGQZULQRLDK6423-14-77 10:08:0085.9[facility] YdrdpvqUNZLHJPHUH9276-36-82 10:08:00 Test Item Value Reference Range Interpretation Comments MCH (test code = MCH) 28.1 pg 27.0-31.0 [facility] IwyffxfYTDSFYUFNF0779-45-58 10:08:0032.7[facility]annHEMATOLOGY 2014-02-09 10:08:0012.4[facility] IjzorplNSBAKCFFZQ9686-55-28 10:08:0037.8[facility] ZrrvrvhTWKEZGRDCM6224-57-58 10:08:000.8[facility] VpjfmurRNQGYECWRV2849-75-42 10:08:000.2[facility] FxqsdesHUDSVXSFIJ2420-31-04 10:08:001.6[facility] EHPGWCPVCB7088-79-19 10:08:003.2[facility] InojyhtXSEYNTQZQS3841-12-53 10:08:003.0 [facility] HusjpqfFRICEWGRLC8076-33-87 10:08:000.3[facility]annHEMATOLOGY 2014-02-09 10:08:0013.5[facility] EzftvckGPKEPDYSLA5625-83-64 10:08:0027.9[facility] CljvwybILJZQBASKH2042-28-70 10:08:0055.3[facility] HermannURINE UUIK8041-00-99 00:43:0023.7[facility]annURINE RLIH8072-62-67 00:43:77849.2[facility] URINE EPBP1290-60-58 00:43:0067[facility] [facility]annURINE ZBXQ3165-46-67 00:43:000.1 [facility]ann[facility]ARD[facility]AC KOPIPBP4652-99-57 09:47:95106Ffetaaaj HermannCHEM PANEL 2014-02-08 09:47:0083[facility]annCHEM YQMRX8262-61-49 09:47:49478Cqftsrhj HermannCHEM OQDTK5730-30-97 09:47:001.2[facility]annCHEM KODCN7598-06-28 09:47:0018[facility]annCHEM PMVEM1996-71-13 09:47:27414Mesegplc HermannCHEM ELIVR1506-28-77 09:47:008.9[facility] HermannCHEM KCFDI9681-39-11 09:47:0032 [facility]annCHEM XLLGD9504-77-96 09:47:003.6[facility] HermannCHEM PANEL 2014-02-08 09:47:009.6[facility]annCHEM GSRIL6868-26-26 09:47:42837Ylkrdszc HermannCHEM DULXM0442-66-94 09:47:007.8[facility]annCHEM DQIJA4533-13-63 09:47:002.2[facility] GteddvmMCPLXIRTGP8213-73-92 09:47:50827Suxolqnu [place] LHYOMPOIPK7894-76-68 09:47:0033.0[facility] YdcrtpwCTTHYCCMKW5931-33-25 09:47:00 85.4[facility] WiqjqskXZMGOZYEQB7287-10-56 09:47:00 Test Item Value Reference Range Interpretation Comments MCH (test code = MCH) 28.2 pg 27.0-31.0 [facility] EndrxhzXALLFGOPJK4905-85-71 09:47:0039.5[facility] HermannHEMATOLOGY 2014-02-08 09:47:0013.9[facility] JajpbqsZLLPDZSNGR8622-41-72 09:47:008.7[facility] EfxjmcmVKMCCVOVRV9096-16-19 09:47:0013.0[facility] JqspbaqVEHDPNOOTI3627-11-91 09:47:004.62[facility] FyysquxUJDRGFKVGS6509-57-46 09:47:005.7[facility] [place] QLPQNPGNQH4854-40-41 09:47:0024.2[facility] BtkoouoWJAVWPUCCG3691-61-44 09:47:00 59.5[facility] QuvmpvlNNIMKNGJBW9075-77-57 09:47:000.3[facility]annHEMATOLOGY 2014-02-08 09:47:0012.9[facility] NvyzqheTMMZRRLOZH2827-99-33 09:47:003.1[facility] DdskhszHISFQGSGVP4430-84-96 09:47:003.4[facility] DylbhkeHSSZKQIKOM2080-77-02 09:47:001.4[facility] ExmjsppPCBHAFHYYQ0075-16-61 09:47:000.7[facility] FWFWLLMJOM2621-10-79 09:47:000.2[facility] AND AJRFN2844-62-19 17:00:00Performed (02/07/14 12:00 PM)[facility] XIFXN4615-62-17 17:00:0051-100 (02/07/14 12:00 PM)[facility] JWNLF4455-86-34 17:00:00None Seen (02/07/14 12:00 PM)[facility] NKJNG1116-16-02 17:00:00Trace *ABN*(02/07/14 12:00 PM)[facility] IRYUB9614-15-61 17:00:00Small *ABN*(02/07/14 12:00 PM)[facility] AKZRO8379-03-18 17:00:000.2[facility] AND MKQXK4001-58-39 17:00:00Negative (02/07/14 12:00 PM)[facility] TNFMW7072-11-13 17:00:00Negative (02/07/14 12:00 PM)[facility] ZKNBR8536-23-84 17:00:00Negative (02/07/14 12:00 PM)[facility] QVHOQ3170-43-76 17:00:00Yellow *NA*(02/07/14 12:00 PM)[facility] CLOYB2033-53-95 17:00:00Clear (02/07/14 12:00 PM)[facility] FURYF6669-22-13 17:00:00 Test Item Value Reference Range Interpretation Comments UA Spec Grav (test code = UA Spec 1.025 1 Grav) [facility] RZZUU6813-16-47 17:00:00 Test Item Value Reference Range Interpretation Comments UA pH (test code = UA pH) 6.0 1 5.0-8.0 [facility] GEJJI1901-12-92 17:00:00Trace *ABN*(02/07/14 12:00 PM) [facility] CEGLP0979-21-01 17:00:00Negative (02/07/14 12:00 PM) [facility]annCARDIAC HMVPSFD9324-60-49 12:50:000.7[facility]annCARDIAC HFOAXTS2492-03-81 12:50:005.2[facility]annCARDIAC FYLWBIB0481-74-75 12:50:00 <0.02[facility]annCARDIAC GFJXVZK4796-62-82 12:50:09909Mlohgdmp Luc[facility] CHEM QIVVV6370-58-15 12:50:72029Pqguqnft HermannCHEM WFAMD5913-23-41 12:50:0036 [facility]annCHEM XPWBY3764-28-54 12:50:0041[facility] HermannCHEM PANEL 2014-02-07 12:50:0095[facility] HermannCHEM HOWYG7209-20-43 12:50:000.8[facility] HermannCHEM JVYVT4806-08-46 12:50:0027[facility]annCHEM BTQXJ4825-91-76 12:50:007.9[facility] HermannCHEM OHJTT9501-78-13 12:50:009.2[facility]annCHEM SGBHL6864-34-38 12:50:0040[facility]annCHEM HZSEI1242-44-24 12:50:004.1 [facility]annCHEM HEMEM8448-26-95 12:50:002.4[facility] HermannCHEM PANEL 2014-02-07 12:50:0026[facility]annCHEM YPOCX0143-61-45 12:50:37686Ajvumqej HermannCHEM DCQUQ2214-99-23 12:50:0098[facility] HermannCHEM IDQGZ0794-05-67 12:50:003.1[facility]annCHEM TZGBL2918-50-06 12:50:54156Mbcuvaqb HermannCHEM ZPSCL9143-49-82 12:50:003.8[facility] HermannCHEM HPAZF6502-45-84 12:50:0011 [facility]annCHEM HGMVB5518-51-22 12:50:0013.1[facility] HermannCHEM PANEL 2014-02-07 12:50:001.1[facility] MjbbtsyKQSTVZYYTT0005-18-34 12:50:0013.9[facility] HxkigaaDJGQXKHQRM3828-58-03 12:50:0033.3[facility] EdxyrraOUCZGDIBWE4875-07-73 12:50:008.7[facility] ApfwqvxKSOPZRILRD3510-89-87 12:50:70139Lihirfkd [place] MAZHLDWEWP0226-79-09 12:50:00 Test Item Value Reference Range Interpretation Comments MCH (test code = MCH) 28.3 pg 27.0-31.0 [facility] RvxrqrvFJMDSODXXY2612-71-69 12:50:0084.9[facility] HermannHEMATOLOGY 2014-02-07 12:50:0043.9[facility] LqyugdiXPFCSDRCWH9835-08-37 12:50:008.4[facility] YysydlmUFPQPATSZK7700-89-63 12:50:005.18[facility] DuggqoyLVAXCZOMPO8155-34-28 12:50:0014.6[facility] FdqhawsTWGOBCDXVH1320-70-42 12:50:000.1[facility] [place] QVDTPZATCD2941-49-44 12:50:005.7[facility] OooshieCEBHQWARPU3716-50-72 12:50:001.5 [facility] VjjuxstYMPFKUJKKB7400-26-89 12:50:001.0[facility] HermannHEMATOLOGY 2014-02-07 12:50:001.5[facility] HmxvubbLITSFESSCR0916-72-02 12:50:0067.6[facility] UkrsotiVTYOWZNSKM1941-93-64 12:50:0018.4[facility] ItxrydrXOIVYPECDB2221-65-33 12:50:0011.9[facility] VnwjdjePSGCKXOMFB8220-87-96 12:50:000.6[facility] [place] ZTSKFGJOHT3206-31-12 12:45:56Negative (02/07/14 7:45 AM)[facility] HermannCHEMISTRY 2013-07-21 11:10:002.3[facility] TrlooieHGQPJZEJH6337-07-89 11:10:004.4[facility] FbtclewVVIDGWVME1134-17-98 11:10:0023[facility] YejtkjcZAVNHGDME8043-76-49 11:10:06555Kljexjcx GcjmocxVOFBNCRZK4229-27-22 11:10:0016[facility] UXOQTOBLU3204-40-69 11:10:001.0[facility] MjeygzwCACEXDEDS1398-03-16 11:10:89546 [facility] BkjcnnyEYLJVVZKB8720-11-53 11:10:004.4[facility] HermannCHEMISTRY 2013-07-21 11:10:26988Gtpqxfrb WjjesuiVSAWXXHMV8135-37-68 11:10:0024[facility] WphtavqQBYEINQJG7700-16-95 11:10:008.6[facility] QjwiawnJTFUMRXUG7571-31-03 11:10:30270Amcfleih KhzoxxiEYZBDAMHX3818-83-00 11:10:0012.4[facility] LCYSJLGTSV2971-72-34 11:10:0014.3[facility] MizxyreOXQZFVJZKK2914-14-28 11:10:00 32.8[facility] YvaxuzmYUUGWAYKOI8985-71-85 11:10:00 Test Item Value Reference Range Interpretation Comments MCH (test code = MCH) 28.3 pg 27.0-31.0 N [facility] KrybrbaFPQDTRBQWO0193-06-01 11:10:0086.4[facility] HermannHEMATOLOGY 2013-07-21 11:10:43511Untgrlzd TvqmcdaRTWHXLAXVH6349-88-49 11:10:0010.0[facility] TrphnafDOIRIGCTUQ7868-26-25 11:10:0011.1[facility] YfrxanpNEUNLBQPVH3451-81-98 11:10:0012.3[facility] VtoabgtDHYPRLGJXM1404-74-65 11:10:004.33[facility] PKZUJJWHJL1101-07-02 11:10:0037.4[facility] JfjneysRAHLMJEKUC2789-72-19 11:10:00 7.1[facility] LuqslaeBDHEHCKSUB0566-73-29 11:10:004.6[facility] HermannHEMATOLOGY 2013-07-21 11:10:0012.1[facility] QfkrwaeMFKAZPEPES2135-67-73 11:10:0075.8[facility] SocoyvdYQHNFTWMRP7323-54-23 11:10:001.3[facility] EoezgnqYFUHPVRNUM4974-27-00 11:10:008.4[facility] YroxsrvOGHOREKGGT5052-69-08 11:10:000.8[facility] FRGZWRIRNC6163-04-66 11:10:000.5[facility] LumyxinAPROYSLUTP3040-00-89 11:10:000.0 [facility] YaomjpaINLEDSDHNP3799-61-62 11:10:000.4[facility] HermannCHEMISTRY 2013-07-20 19:12:0019.3[facility] BushxrjOVXQBWVXD4024-59-36 11:28:002.5[facility] DmsmozzCPVOKSIHN6090-58-65 11:28:55926Lxhbuuyh MlmnpmeFFQMPYUMT3462-26-70 11:28:0025[facility] XfxtovbKTEFSHWRH3017-38-11 11:28:008.5[facility] [place] XUMGESDVN6931-33-90 11:28:003.4[facility] XymmhczEZKVQVOJF4289-33-42 11:28:007.0 [facility] ZogcvrgCBJYEUTHK3241-02-90 11:28:0025[facility] HermannCHEMISTRY 2013-07-20 11:28:0078[facility] XrfwvijNLUEWEEAN8040-04-73 11:28:001.0[facility] UqobnwjWHULSXXIW2107-61-38 11:28:003.8[facility] KucpabyDNYDPYBJI1724-97-09 11:28:89173Nohkuqww NwjweejAOLXFOVLE3148-27-23 11:28:0024[facility] TRZXWUUVA1375-69-87 11:28:34226Obasluhp QurdualTNDYGLWQZ8587-16-43 11:28:0016 [facility] ZlppwkgRLPYTEQEN7036-64-56 11:28:66809Zygxvqgr HermannCHEMISTRY 2013-07-20 11:28:000.4[facility] TjpowfkOHOHBBUIT7896-81-95 11:28:000.9[facility] HztpacqYGFVYRQMJ4720-49-30 11:28:0013.8[facility] GscundhUQOPFGRSV1259-10-92 11:28:0016[facility] YqtfncdNGLREVFSN6348-55-72 11:28:003.6[facility] [place] CJGGUIXER7052-72-84 11:28:0034[facility] MqugqjfOUAINXKWY1826-24-03 11:28:003.4 [facility] SffvtnzFSHDYTZNYJ9948-97-10 11:28:001.8[facility] HermannHEMATOLOGY 2013-07-20 11:28:007.4[facility] XjjvcycLDWPUWGRYX6784-26-74 11:28:004.8[facility] JghjkbaCCBICYYJUU7412-17-09 11:28:000.4[facility] XbasbplRCLHIMVZQK4364-57-48 11:28:000.5[facility] KoaenkgKBYTOWHPFE8807-14-88 11:28:001.0[facility] [place] PYEKRRFXNV2713-72-67 11:28:000.0[facility] DneinpaWMZEVEJEQP5133-41-92 11:28:00 16.5[facility] RkcziyeWYVAXGZMOH0600-06-05 11:28:009.0[facility] HermannHEMATOLOGY 2013-07-20 11:28:0069.3[facility] TxsmoauKPYRAQYHXZ3125-31-39 11:28:009.9[facility] FjlkoldXBVDNIEEAQ1498-66-52 11:28:90615Tmnaczao FrigkigYMUAUKDXUS6218-60-62 11:28:0014.1[facility] JclobibKTQBFURPCQ6492-54-44 11:28:00 Test Item Value Reference Range Interpretation Comments MCH (test code = MCH) 28.0 pg 27.0-31.0 N [facility] SzknjubMIAHIKVQHU5971-74-22 11:28:0031.9[facility] HermannHEMATOLOGY 2013-07-20 11:28:0087.6[facility] XbciewlSMFBJBWGPC7489-47-82 11:28:0010.7[facility] BjwqfruCVSUEGNNAX3328-21-60 11:28:004.38[facility] GvdhuksOPSGATZULD6872-97-12 11:28:0012.2[facility] NnyyhtnWCNXMMVAGZ2418-88-24 11:28:0038.4[facility] VGVDPPRZF7911-17-07 10:40:58Rm Air (07/20/2013 04:40:58)[facility] HMSHCCMUH5098-98-91 10:40:5833[facility] LdhajxjPILEPQXBK0869-38-43 10:40:587.44 [facility] QiuriolXNJUOKNZI3050-66-93 10:40:58-1[facility] HermannCHEMISTRY 2013-07-20 10:40:5822[facility] WghnurvKTZQYVTTZ9593-79-68 10:40:5883[facility] PqrnuxpFFQERXNPV0481-18-46 10:40:58Positive (07/20/2013 04:40:58)[facility] QxcjcvvKGAYJKYSW9530-19-40 10:40:5837.0[facility] GypllzqJWIMGRUWR4279-85-53 10:40:58Left Rad (07/20/2013 04:40:58)[facility] QxxpdlfOWOISXULK9700-06-96 10:40:5896.6[facility] OaqftndUQGBHIQKCW3129-35-56 12:00:000.00[facility] [place] FUMWOHASKG0892-10-70 12:00:000.10[facility] TsipzmzEGXYYIRLVK5063-24-62 12:00:00 0.01[facility] CzaoexlXHBSFOOKW3577-42-95 11:29:000.03[facility] HermannCHEMISTRY 2013-07-19 11:29:49442Dchanypk WwykwzgAUDLDJVDY0146-84-07 11:29:000.5[facility] LrvdcwsRDLAMQGBS3350-79-76 11:29:002.2[facility] JtaajcwUGFACHWFY1088-55-15 11:26:75042Pfobldjb DkjdfeyHNWBTYDBC4947-96-19 11:26:0081[facility] HLUBXTSQD4627-43-89 11:26:008.7[facility] YztasouMCSJQVIYH8735-24-25 11:26:0024 [facility] JelmmeyWMOLIJCQQ2179-77-16 11:26:0013.2[facility] HermannCHEMISTRY 2013-07-19 11:26:003.2[facility] HezezubWVJUBFBQR2300-02-25 11:26:08888Rajlelpg FnowiljMMGJQJKGT1955-06-00 11:26:001.1[facility] HnzykitLTTCFTBJC8673-42-67 11:26:0014[facility] CnodcwdMZDDXPNYM2240-90-04 11:26:27655Tjnggcjf [place] MNLEBPDNW3609-56-80 11:26:69506Cqmypbou HrgosupNBTCAPUJG3784-90-63 11:26:57447 [facility] UhxyocnTXBKKLBUR4529-48-34 11:26:0029[facility] HermannCHEMISTRY 2013-07-19 11:26:46282Dmmsucyp KggcqhqLEWFZUEMZ5897-69-93 11:26:0079[facility] HrhmvnlVESXTEFLU1987-01-12 11:26:005.38[facility] JmschioYJNWOEJFV0095-00-31 11:26:001.7[facility] HlrsyvvWASSOSTIC3062-57-71 11:26:003.2[facility] EWBMAJHAF3127-07-14 11:26:001.1[facility] YvwffceTLJPAYAMPQ5853-41-83 11:26:0012.6 [facility] XkrufkgZXZOXOWUNS2875-10-61 11:26:004.49[facility] HermannHEMATOLOGY 2013-07-19 11:26:009.8[facility] HjxzkmaRYPLNBDVHI6163-22-53 11:26:0032.5[facility] AkqfqmjJYQONSAXWF6147-45-02 11:26:0014.6[facility] TzgkyjzZYBJXEHURQ9240-55-73 11:26:0038.8[facility] JkyykmvJVATROSDHB3195-01-81 11:26:02041Kwntmzvw [facility] CBDSIZEIPR0701-67-85 11:26:00 Test Item Value Reference Range Interpretation Comments MCH (test code = MCH) 28.0 pg 27.0-31.0 N [facility] VctiutoZLULEZIHNW1374-86-11 11:26:0086.4[facility] HermannHEMATOLOGY 2013-07-19 11:26:0015.7[facility] PusnqliGOJCEYSCZK4866-32-05 11:26:008.1[facility] ZnyvlvcONALZFGMHM5438-93-35 11:26:000.3[facility] WcrcjmgEDIUFGXRBO0276-24-57 11:26:000.1[facility] VrvyrokPEXOSJBPMY0171-65-64 11:26:001.3[facility] [place] ZWKVREVHMX3639-74-99 11:26:001.7[facility] SkfienmMHRKOFYCOK3709-88-41 11:26:001.4 [facility] FijgtxeGPFWCGBLPK8613-28-62 11:26:000.4[facility] HermannHEMATOLOGY 2013-07-19 11:26:0012.7[facility] HetmyttWXQERBMXWA7011-35-42 11:26:008.8[facility] IhagjlvGYHKSPVJDZ5944-33-25 11:26:0081.0[facility] JfsocwfSJDCMEDGSF1456-02-73 11:26:00Negative *NA*(07/19/2013 05:26:00)[facility] HermannBACTERIAL - SEROLOGY 2013-07-19 07:00:00Negative 1(07/19/2013 01:00:00)[facility] HermannMICRO MISC - ECIHEXRD3441-06-56 07:00:00Negative 2, 3(07/19/2013 01:00:00)[facility] [place] EEDQVVJYS3210-26-10 06:45:002.1[facility] XanltpqIARRJWGQN6017-06-45 06:45:000.5 [facility] MqxthttDXHJATTXT1472-45-48 06:45:000.04[facility] HermannCHEMISTRY 2013-07-19 06:45:46716Kwkvwgtx TtojhfdCBMHVBWIK9654-42-06 06:45:78610Wrrwzhys JhhtbypTKQSFGDHP8358-31-65 01:50:001.7[facility] XllrccfNRWWACVVF1347-79-04 19:38:4335[facility] HynluynSAAEYBEEW8263-50-48 19:38:437.44[facility] TUDTRPHZA1828-81-09 19:38:4393.2[facility] SvipjbaMKRICTRME2188-78-49 19:38:4365 [facility] EgumghxLEGRSMAZM8783-51-74 19:38:430[facility] XcesvooDSQFHDJKU3755-46-79 19:38:4324[facility] TaccmueVKMUSNIWM4419-21-73 19:38:43Right Ra (07/18/2013 13:38:43)[facility] PasxigaUSUTHQSFP0435-47-95 19:38:43Positive (07/18/2013 13:38:43)[facility] WmmfoljSPZJVNUXS1788-81-25 19:38:43Rm Air (07/18/2013 13:38:43)[facility] ZeichilLJVHFEXPL9165-95-83 19:38:4337.0[facility] HermannVIRAL - PYUYMRIO4946-77-59 19:30:08Negative 4(07/18/2013 13:30:08)[facility] HermannVIRAL - FJVDUDSG7018-27-45 19:30:08Negative (07/18/2013 13:30:08)[facility] OCHWIVNML6132-06-28 19:30:000.8[facility] AxwjtycWHWHEVEPL6419-37-98 19:30:0026 [facility] OsysxnmDKSNHNZZI3540-74-49 19:30:009[facility] PkeztwdXTNZQDHCZ5011-98-76 19:30:0033[facility] WjtpcaxAHSILOHWG3526-14-02 19:30:003.5[facility] VZDTWGEXS6085-55-41 19:30:001.1[facility] XuytazfAAXLPLMGH7171-98-17 19:30:08484 [facility] UhvycodMOJAGDYCP5185-88-30 19:30:001.0[facility] HermannCHEMISTRY 2013-07-18 19:30:004.0[facility] ZxaccnuXKRBIPXJN1251-66-41 19:30:007.5[facility] DbkpjwrBIAYJDJTB0211-73-45 19:30:000.03[facility] HoakkllBDBHTXOKI0988-72-79 19:30:004.4[facility]
--- NOTE | 2020-09-05 15:17 | RAD REPORT ---
EXAM DESCRIPTION: RAD - Chest Single View - 09/05/2020 3:12 pm CLINICAL HISTORY: Cough;Dyspnea Chest pain. COMPARISON: Chest Single View dated 07/28/2020; Chest Pa And Lat (2 Views) dated 05/30/2020; Chest S misty View dated 05/29/2020; Chest Single View dated 02/18/2020 FINDINGS: Portable technique limits examination quality. The lungs are underinflated with mild vascular prominence. The heart is upper limit normal in size. N o displaced fractures.
[2020-09-05 15:49] LABS: Absolute Lymphocytes (CBC) 1.5 K/uL (0.7-4.9); Basophils % 1.2 % (0-1.3); Hematocrit 36.7 % (39.6-49.0); Lymphocytes % 25.7 % (15.3-44.8); MPV 8.7 fL (7.6-11.3)
[2020-09-05 15:57] LABS: Protime INR 1.01
[2020-09-05] MEDS ORDERED: MORPHINE 4 MG/ML SYR ONE (16:00)
[2020-09-05] MEDS ORDERED: ONDANSETRON 4 MG/2 ML VIAL ONE (16:01)
[2020-09-05 16:13] LABS: ALT/SGPT 24 U/L (12-78); AST/SGOT 21 U/L (15-37); Albumin 3.6 g/dL (3.4-5.0); Alkaline Phosphatase 90 U/L (45-117); BUN Blood Urea Nitrogen 10 mg/dL (7-18); Bicarbonate 29 mmol/L (21-32); Bilirubin Direct 0.1 mg/dL (0-0.2); Bilirubin Total 0.4 mg/dL (0.2-1.0); Glucose Level 110 mg/dL (74-106); Magnesium 2.3 mg/dL (1.8-2.4); NT PRO-BNP 22 pg/mL (<125); Potassium 3.2 mmol/L (3.5-5.1); Sodium Level 139 mmol/L (136-145); Troponin (Emerg Dept Use Only) < 0.02 ng/mL (0.0-0.045)
--- NOTE | 2020-09-05 16:53 | RAD REPORT ---
EXAM DESCRIPTION: CT - Chest Abdomen Pelvis W Cont - 09/05/2020 4:43 pm CLINICAL HISTORY: Chest and abdomen pain. abdominal pain/destention;Chest pain;SOB COMPARISON: No comparisons TECHNIQUE: Approximately 100 mL nonionic IV contrast was administered to the patient. All CT scans are performed using dose optimization technique as appropriate and may include automated exposure control or mA/KV adjustment according to patient size. FINDINGS: Mild interstitial ground-glass opacity bilaterally.No focal infiltrate is seen.No pleural or pericardial effusion.No intrathoracic adenopathy. Mild diffuse fatty liver. The spleen, pancreas, adrenal glands and kidneys are within normal limits. No bowel obstruction, free air, free fluid or abscess. Normal appendix. No pathologic lymphadenopath y in the abdomen or pelvis. No worrisome osseous finding. IMPRESSION: Subtle ground-glass pulmonary opacities could indicate a mild interstitial edema or pneu monitis. Mild diffuse fatty liver.
[2020-09-05] MEDS ORDERED: METHYLPREDNISOLONE 125 MG INJ ONE (18:22)
[2020-09-05] MEDS ORDERED: ALBUTEROL 2.5 MG/3 ML NEB SOL ONE (18:41)
[2020-09-05] MEDS ORDERED: NA CHLORIDE 0.9% 500 ML ONE (18:41)
[2020-09-05] MEDS ORDERED: IPRATROPIUM BROM 0.5MG/2.5ML ONE (18:41)
[2020-09-05 18:44] LABS: Ferritin 128.4 ng/mL (26-388)
[2020-09-05 18:49] LABS: C-Reactive Protein < 2.90 mg/L (<3.00)
--- NOTE | 2020-09-05 18:58 | ER ---
Nurse's Notes [facility] Name: Shawna Mccall Age: 54 yrs Sex: Male : 1965 Arrival Date: 09/05/2020 Time: 12:48 Bed 2 Private MD: Diagnosis: Shortness of breath;Chronic pulmonary edema;Hypokalemia Presentation: 09/05 13:08 Chief complaint: Patient states: 1. Left foot pain for 2 weeks. Believes it is gout, sv had in the right foot last time. 2. Cough and SOB with chest burning for 3-4 months. Unable to sleep well. Coronavirus screen: Client denies travel out of the [place] in the last 14 days. chills, congestion, cough unrelated to allergies, difficulty breathing, headache, shaking with chills, shortness of breath, Client presents with at least one sign or symptom that may indicate coronavirus-19. Standard/surgical mask placed on the client. Ebola Screen: Patient denies travel to an Ebola-affected area in the 21 days before illness onset. Initial Sepsis Screen: Does the patient meet any 2 criteria? No. Patient's initial sepsis screen is negative. Does the patient have a suspected source of infection? Yes: Productive cough/pneumonia Bone or joint infection. Risk Assessment: Do you want to hurt yourself or someone else? Patient reports no desire to harm self or others. Onset of symptoms was August 21, 2020. 13:08 Method Of Arrival: Ambulatory sv 13:08 Acuity: INGRID 3 sv Historical: - Allergies: 13:11 No Known Allergies; sv - PMHx: 13:11 CHF; Migraines; Hypertension; CVA; Seizures; sv - PSHx: 13:11 L arm; sv - Immunization history:: Flu vaccine is not up to date. - Social history:: Smoking status: Patient reports the use of cigarette tobacco products, denies chronic smoking, but will smoke occasionally. Screenin:49 Abuse screen: Denies threats or abuse. Denies injuries from another. Nutritional hb screening: No deficits noted. Tuberculosis screening: No symptoms or risk factors identified. Fall Risk None identified. Assessment: 15:40 General: Appears in no apparent distress. Behavior is calm, cooperative. Pain: hb Complains of pain in chest Pain currently is 7 out of 10 on a pain scale. Neuro: Level of Consciousness is awake, alert, obeys commands, Oriented to person, place, time, situation. Cardiovascular: Capillary refill < 3 seconds Patient's skin is warm and dry. Rhythm is regular. Respiratory: Reports shortness of breath at rest cough that is productive, Airway is patent Respiratory effort is even, unlabored, Respiratory pattern is regular, symmetrical. GI: No signs and/or symptoms were reported involving the gastrointestinal system. : No signs and/or symptoms were reported regarding the genitourinary system. EENT: No signs and/or symptoms were reported regarding the EENT system. Derm: Skin is pink, warm \T\ dry. Musculoskeletal: No signs and/or symptoms reported regarding the musculoskeletal system. 16:27 Reassessment: Patient appears in no apparent distress at this time. Patient and/or hb family updated on plan of care and expected duration. Pain level reassessed. Patient is alert, oriented x 3, equal unlabored respirations, skin warm/dry/pink. 17:30 Reassessment: Patient appears in no apparent distress at this time. No changes from previously documented assessment. Patient and/or family updated on plan of care and expected duration. Pain level reassessed. 18:18 Reassessment: Pt unable to tolerate COVID swab, Dr. Roberson notified. hb 19:13 Reassessment: Discharge pending completion of neb tx. Vital Signs: 13:08 BP 127 / 76; Pulse 83; Resp 18; Temp 98.8; Pulse Ox 100% ; Weight 102.06 kg; Height 5 sv ft. 5 in. (165.10 cm); Pain 8/10; 16:27 BP 134 / 90; Pulse 74; Resp 17; Pulse Ox 98% on R/A; hb 17:30 BP 138 / 88; Pulse 76; Resp 19; Pulse Ox 96% on R/A; hb 18:04 Pulse 118; Resp 32; Pulse Ox 94% ; hb 18:21 BP 109 / 97; Pulse 74; Resp 17; Pulse Ox 99% on R/A; hb 19:28 BP 111 / 89; Pulse 76; Resp 16; Temp 98.2; Pulse Ox 99% ; rv 13:08 Body Mass Index 37.44 (102.06 kg, 165.10 cm) sv 18:04 when ambulating ED Course: 12:48 Patient arrived in ED. as 13:10 Triage completed. sv 13:10 Arm band placed on. sv 14:39 Tex Roberson MD is Attending Physician. kdr 15:12 XRAY Chest (1 view) In Process Unspecified. EDMS 15:21 Marj Posada, RN is Primary Nurse. hb 15:42 Inserted saline lock: 20 gauge in left antecubital area, using aseptic technique. Blood hb collected. 15:49 Patient has correct armband on for positive identification. Bed in low position. Call hb light in reach. Side rails up X 1. supervisor production department on. Pulse ox on. NIBP on. 16:43 CT Chest, Abdomen, Pelvis - W/Contrast In Process Unspecified. EDMS 19:28 No provider procedures requiring assistance completed. IV discontinued, intact, rv bleeding controlled, No redness/swelling at site. Pressure dressing applied. Administered Medications: 15:50 Drug: morphine 4 mg Route: IVP; Site: left antecubital; hb 16:30 Follow up: Response: No adverse reaction hb 15:50 Drug: Zofran (Ondansetron) 4 mg Route: IVP; Site: left antecubital; hb 16:30 Follow up: Response: No adverse reaction hb 18:04 Drug: SOLU-Medrol 125 mg Route: IVP; Site: left antecubital; hb 19:13 Follow up: Response: No adverse reaction hb 19:12 Drug: Albuterol - atroVENT (3:1) (2.5 mg - 0.5 mg) 3 ml Route: Nebulizer; hb 19:29 Follow up: Response: No adverse reaction rv 19:12 Drug: Potassium Chloride 40 mEq Route: PO; hb 19:29 Follow up: Response: No adverse reaction rv 19:12 Drug: Lasix 40 mg Route: IVP; Site: left antecubital; hb 19:29 Follow up: Response: No adverse reaction rv 19:13 Not Given (per Dr. Roberson): NS 0.9% 500 ml IV at bolus once hb Outcome: 18:58 Discharge ordered by . kdr 19:28 Discharged to home ambulatory. rv 19:28 Condition: good 19:28 Discharge instructions given to patient, Instructed on discharge instructions, follow up and referral plans. medication usage, Demonstrated understanding of instructions, follow-up care, medications, Prescriptions given X 2. 19:29 Patient left the ED. rv Signatures: Dispatcher [employer] Edith Joe, RN RN sv Tex Roberson MD MD kdr Martinez, Amelia as Baxter, Heather, RN RN hb Vicente, Ronaldo, RN RN rv Corrections: (The following items were deleted from the chart) 18:45 18:21 BP 109 / 97; Pulse 74bpm; Resp 77bpm; Pulse Ox 99% RA; hb hb
--- NOTE | 2020-09-05 18:58 | EDPHYS ---
Physician Documentation [facility] Name: Shawna Mccall Age: 54 yrs Sex: Male : 1965 Arrival Date: 09/05/2020 Time: 12:48 Bed 2 Private MD: ED Physician Tex Roberson HPI: 09/05 18:30 This 54 yrs old Black Male presents to ER via Ambulatory with complaints of Shortness kdr Of Breath, Foot Pain - gout. 18:30 The patient has shortness of breath at rest, with light activity. Onset: The kdr symptoms/episode began/occurred 2 month(s) ago. Duration: The symptoms are continuous, and are steadily getting worse, Can't sleep due to SOB. Has to sleep sitting up. Has increased phlegm when laying supine. Associated signs and symptoms: Pertinent positives: Right foot/heel pain - possible gout. Severity of symptoms: At their worst the symptoms were moderate severe in the emergency department the symptoms are unchanged. The patient has experienced similar episodes in the past, multiple times. The patient has been recently been admitted at [facility], Several months ago. The patient had recurrent and transient gout like pain in both feet. Currently has pain in left heel. Historical: - Allergies: 13:11 No Known Allergies; sv - PMHx: 13:11 CHF; Migraines; Hypertension; CVA; Seizures; sv - PSHx: 13:11 L arm; sv - Immunization history:: Flu vaccine is not up to date. - Social history:: Smoking status: Patient reports the use of cigarette tobacco products, denies chronic smoking, but will smoke occasionally. ROS: 18:30 Constitutional: Negative for fever, chills, and weight loss, Eyes: Negative for injury, kdr pain, redness, and discharge, ENT: Negative for injury, pain, and discharge, Neck: Negative for injury, pain, and swelling, Cardiovascular: Negative for chest pain, palpitations, and edema, Back: Negative for injury and pain, : Negative for injury, bleeding, discharge, and swelling, MS/Extremity: Negative for injury and deformity, Skin: Negative for injury, rash, and discoloration, Neuro: Negative for headache, weakness, numbness, tingling, and seizure activity. Allergy/Immunology: Negative for hives, rash, and allergies, Endocrine: Negative for neck swelling, polydipsia, polyuria, polyphagia, and marked weight changes, Hematologic/Lymphatic: Negative for swollen nodes, abnormal bleeding, and unusual bruising. 18:30 Respiratory: Positive for dyspnea on exertion, orthopnea, shortness of breath, Negative for cough, dyspnea on exertion, orthopnea, shortness of breath. 18:30 Abdomen/GI: Positive for abdominal pain, nausea, abdominal distension, Negative for diarrhea, abdominal cramps, anorexia, dysphagia, hematemesis, black/tarry stool, rectal pain, rectal bleeding, bowel incontinence. 18:30 MS/extremity: Positive for pain, of the lateral side of left heel, medial aspect of left heel and heel of left foot. Exam: 18:27 Constitutional: This is a well developed, well nourished patient who is awake, alert, kdr and in no acute distress. Head/Face: Normocephalic, atraumatic. Eyes: Pupils equal round and reactive to light, extra-ocular motions intact. Lids and lashes normal. Conjunctiva and sclera are non-icteric and not injected. Cornea within normal limits. Periorbital areas with no swelling, redness, or edema. Neck: Trachea midline, no thyromegaly or masses palpated, and no cervical lymphadenopathy. Supple, full range of motion without nuchal rigidity, or vertebral point tenderness. No Meningismus. Chest/axilla: Normal chest wall appearance and motion. Nontender with no deformity. No lesions are appreciated. 18:27 ECG was reviewed by the Attending Physician. 18:30 Chest/axilla: Inspection: normal. kdr 18:30 Cardiovascular: Rate: normal, The patinet had occasional episodes of tachycardia associated with activity, Rhythm: irregular, Pulses: no pulse deficits are appreciated, Heart sounds: normal, Edema: 1+ edema to level of left midcalf, left ankle, right midcalf and right ankle. Vital Signs: 13:08 BP 127 / 76; Pulse 83; Resp 18; Temp 98.8; Pulse Ox 100% ; Weight 102.06 kg; Height 5 sv ft. 5 in. (165.10 cm); Pain 8/10; 16:27 BP 134 / 90; Pulse 74; Resp 17; Pulse Ox 98% on R/A; hb 17:30 BP 138 / 88; Pulse 76; Resp 19; Pulse Ox 96% on R/A; hb 18:04 Pulse 118; Resp 32; Pulse Ox 94% ; hb 18:21 BP 109 / 97; Pulse 74; Resp 17; Pulse Ox 99% on R/A; hb 19:28 BP 111 / 89; Pulse 76; Resp 16; Temp 98.2; Pulse Ox 99% ; rv 13:08 Body Mass Index 37.44 (102.06 kg, 165.10 cm) sv 18:04 when ambulating hb MDM: 18:30 Data reviewed: vital signs, nurses notes, lab test result(s), radiologic studies. kdr Counseling: I had a detailed discussion with the patient and/or guardian regarding: the historical points, exam findings, and any diagnostic results supporting the discharge/admit diagnosis, lab results, radiology results. 18:58 Patient medically screened. kdr 09/05 15:00 Order name: Basic Metabolic Panel; Complete Time: 18:56 kdr 09/05 15:00 Order name: CBC with Diff; Complete Time: 16:23 kdr 09/05 15:00 Order name: LFT's; Complete Time: 18:56 kdr 09/05 15:00 Order name: Magnesium; Complete Time: 18:56 kdr 09/05 15:00 Order name: NT PRO-BNP; Complete Time: 18:56 kdr 09/05 15:00 Order name: PT-INR; Complete Time: 16:23 kdr 09/05 15:00 Order name: Troponin (emerg Dept Use Only); Complete Time: 18:56 kdr 09/05 15:00 Order name: XRAY Chest (1 view); Complete Time: 16:23 kdr 09/05 18:09 Order name: COVID-19 : Document "Date of Symptom Onset" if Symptomatic. kdr 09/05 18:09 Order name: Flu kdr 09/05 18:21 Order name: C-Reactive Protein; Complete Time: 18:56 EDMS 09/05 18:21 Order name: Ferritin; Complete Time: 18:56 EDMS 09/05 15:00 Order name: EKG; Complete Time: 15:01 kdr 09/05 15:00 Order name: Cardiac monitoring; Complete Time: 15:48 kdr 09/05 15:00 Order name: EKG - Nurse/Tech; Complete Time: 15:48 kdr 09/05 15:00 Order name: IV Saline Lock; Complete Time: 15:48 kdr 09/05 15:00 Order name: Labs collected and sent; Complete Time: 15:49 kdr 09/05 15:00 Order name: O2 Per Protocol; Complete Time: 15:49 kdr 09/05 15:00 Order name: O2 Sat Monitoring; Complete Time: 15:49 kdr 09/05 15:00 Order name: CT Chest, Abdomen, Pelvis - W/Contrast; Complete Time: 17:16 kdr 09/05 17:33 Order name: Misc. Order: Ambulate patient nad record/report POx; Complete Time: 18:04 kdr EC:27 Rate is 74 beats/min. Rhythm is regular, Normal Sinus Rhythm with No ectopy. QRS [place] kdr is Normal. DE interval is normal. QRS interval is normal. QT interval is normal. No Q waves. Clinical impression: Normal ECG. Administered Medications: 15:50 Drug: morphine 4 mg Route: IVP; Site: left antecubital; hb 16:30 Follow up: Response: No adverse reaction hb 15:50 Drug: Zofran (Ondansetron) 4 mg Route: IVP; Site: left antecubital; hb 16:30 Follow up: Response: No adverse reaction hb 18:04 Drug: SOLU-Medrol 125 mg Route: IVP; Site: left antecubital; hb 19:13 Follow up: Response: No adverse reaction hb 19:12 Drug: Albuterol - atroVENT (3:1) (2.5 mg - 0.5 mg) 3 ml Route: Nebulizer; hb 19:29 Follow up: Response: No adverse reaction rv 19:12 Drug: Potassium Chloride 40 mEq Route: PO; hb 19:29 Follow up: Response: No adverse reaction rv 19:12 Drug: Lasix 40 mg Route: IVP; Site: left antecubital; hb 19:29 Follow up: Response: No adverse reaction rv 19:13 Not Given (per Dr. Roberson): NS 0.9% 500 ml IV at bolus once hb Disposition: 09/05/20 18:58 Discharged to Home. Impression: Shortness of breath, Chronic pulmonary edema, Hypokalemia. - Condition is Stable. - Discharge Instructions: Potassium Content of Foods, Pulmonary Edema, Shortness of Breath, [id number], Hypokalemia. - Prescriptions for Lasix 20 mg Oral Tablet - take 1 tablet by ORAL route once daily; 30 tablet. Potassium Chloride 20 meq Oral Packet - take 1 packet by ORAL route once daily 1 packet in 6 (six) ounces of water or juice; Take after meal; 30 packet. - Medication Reconciliation Form, Thank You Letter form. - Follow up: Private Physician; When: 2 - 3 days; Reason: If symptoms return, Further diagnostic work-up, Recheck today's complaints, Continuance of care, Re-evaluation by your physician. - Problem is an ongoing problem. - Symptoms have improved. Signatures: Dispatcher [employer] EDMS Edith Garcia RN RN sv Tex Roberson MD MD kdr Baxter, Heather, RN RN hb Vicente, Ronaldo, RN RN rv Corrections: (The following items were deleted from the chart) 18:21 18:17 C-REACTIVE PROTEIN+C.LAB.BRZ ordered. EDMS EDMS 18:21 18:17 FERRITIN+C.LAB.BRZ ordered. EDTX EDMS 18:46 18:27 Constitutional: This is a well developed, well nourished patient who is awake, kdr alert, and in no acute distress. Head/Face: Normocephalic, atraumatic. Eyes: Pupils equal round and reactive to light, extra-ocular motions intact. Lids and lashes normal. Conjunctiva and sclera are non-icteric and not injected. Cornea within normal limits. Periorbital areas with no swelling, redness, or edema. kdr 19:29 18:58 09/05/2020 18:58 Discharged to Home. Impression: Shortness of breath; Chronic rv pulmonary edema; Hypokalemia. Condition is Stable. Forms are Medication Reconciliation Form, Thank You Letter, Antibiotic Education, Prescription Opioid Use. Follow up: Private Physician; When: 2 - 3 days; Reason: If symptoms return, Further diagnostic work-up, Recheck today's complaints, Continuance of care, Re-evaluation by your physician. Problem is an ongoing problem. Symptoms have improved. kdr
[2020-09-05] MEDS ORDERED: POTASSIUM CL SA 10 MEQ TAB PO ONE (19:18)
[2020-09-05] MEDS ORDERED: FUROSEMIDE 40 MG/4 ML VIAL ONE (19:18)
[2020-09-05 20:16] VITALS: O2SAT 99
[2020-09-05 20:17] VITALS: BP 111/89; TEMP 98.2
== END 2020-09-05 19:29 | disposition home or self-care (01) ==
LOC: ER 12:47
DX: J81.1 Chronic pulmonary edema (principal); E87.6 Hypokalemia; I10 Essential (primary) hypertension; M10.9 Gout, unspecified; F17.210 Nicotine dependence, cigarettes, uncomplicated; Z20.822 Contact with and (suspected) exposure to COVID-19
CPT/HCPCS: 36415; 71045; 71260; 74177; 80048; 80076; 82728; 83735; 83880; 84484; 85025; 85610; 86140; 93005; 96374; 96375; 99285; J1940; J2405; J2930; J7040; Q9967

== ENCOUNTER 2020-10-08 15:10 | Emergency (ER) | payer SELFPAY ==
--- OUTSIDE RECORDS SUMMARY | 2020-10-08 15:22 | XMS REPORT | Continuity of Care Document ---
:1965 Author Organization [facility] t Address [address] [place] [address] Care Team Providers Name Role Phone Jame Yi Attending Clinician Joelle Garcia Attending Clinician Marta Trujillo Attending Clinician Robby Quinteros Attending Clinician Tiara Moon Attending Clinician Phil Mendez Attending Clinician x3 Jeny Hogan Attending Clinician Robby Harris Attending Clinician Alessandro Frnacois Attending Clinician Jarret Chu Attending Clinician Gumaro Attending Clinician Steve Oleary Attending Clinician Tiara Moon Admitting Clinician Alessandro Francois Admitting Clinician Jarret Chu Admitting Clinician Gumaro Admitting Clinician Problems Condition Condition Condition Status Onset Resolution Last Treating Co mments Source Name Details Category Date Date Treatment Clinician Date Low back Low Back Problem Active Miranda ge pain Pain 10-19 Family 00:00: Practic 00 e Type 2 Type 2 Problem Active [place] diabetes Diabetes 10-08 Family mellitus Mellitus 00:00: Practi c 00 e Cellulitis Cellulitis Problem Active [place] and and 10-08 Family abscess of Abscess of 00:00: Pr actic finger Finger 00 e Hyperlipid Hyperlipid Problem Active [place] emia emia 08-25 Family 00:00: Practic 00 e Body mass Body Mass Problem Active Angelo pan index 30+ Index 30+ 08-25 Fami ly - obesity - Obesity 00:00: Prac tic 00 e Alcohol Alcohol Problem Active [place] dependence Dependence 08-25 Fa johana 00:00: Practic 00 e Insomnia Insomnia [...] Problem Active [place] cerebrovas Cerebrovas 08-25 [facility] cular cular 00:00: Practic accident Accident 00 e without without residual Residual deficits Deficits GOMES Diagnosis Active 2017-04-21 Mem oria 9 02:25:00 l GOMES 08:00: Lucien 00 Active 04/20/2017 [facility] HEADACHE Diagnosis Active 2017-04-18 M emoria 9 19:02:00 l HEADACHE 00:00: Delvin n 00 Active 04/18/2017 [facility] I63.9 Diagnosis Active 2017-02-09 Mem oria STROKE, 7- 12:12:00 l R58 I63.9 12:00: [place] HEMORRHAGE STROKE, 00 R58 HEMORRHAGE Active 02/09/2017 [facility] STROKE Diagnosis Active 2016-12-10 Mem oria 2- 16:34:00 l STROKE 00:00: [place] 00 Active 09/24/2016 [facility] SEIZURE Diagnosis Active 2016-08-27 Me moria 1 14:47:00 l SEIZURE 00:00: Lucien 00 Active 08/27/2016 [facility] ACUTE Diagnosis Active 2015-082016-07-28 Mem oria CEREBROVAS 2- 12:07:00 l CULAR ACUTE 00:00: Lucien ACCIDENT CEREBROVAS 00 CULAR ACCIDENT Active 07/27/2016 [facility] ARM Diagnosis Active 2015-082016-07-27 Mem oria WEAKNESS, 09-27 11:50:00 l FACIAL ARM 00:00: [place] DROOP WEAKNESS, 00 FACIAL DROOP Active 07/27/2016 [facility] CHEST PAIN Diagnosis Active 2016-03-07 Memoria 8- 14:11:00 l CHEST 00:00: Lucien PAIN 00 Active 03/07/2016 [facility] SYNCOPE Diagnosis Active 2016-02-18 Me moria 7 14:55:00 l SYNCOPE 00:00: Lucien 00 Active 02/18/2016 [facility] BACK PAIN Diagnosis Active 2014-11-22 Memoria 11-20 17:10:00 l BACK 09:00: [place] PAIN 00 Active 11/20/2014 [facility] SHORTNESS Diagnosis Active 2015-02-20 Memoria OF BREATH - 10:16:00 l 05:00: [place] SHORTNESS 00 OF BREATH Active 08/14/2014 [facility] OTHER Diagnosis Active 2013-082014-05-09 Mem oria TENOSYNOVI 0-08 03:18:00 l TIS OF OTHER 00:00: [place] HAND AND TENOSYNOVI 00 WRIST TIS OF HAND AND WRIST Active 05/09/2014 [facility] HAND EDEMA Diagnosis Active 2013-082014-05-09 Memoria 0-07 00:38:00 l HAND 00:00: [place] EDEMA 00 Active 05/08/2014 [facility] HAND Diagnosis Active 2013-082014-05-17 Mem oria INFECTION 0-02 21:53:00 l HAND 00:00: Lucien INFECTION 00 Active 05/03/2014 [facility] ABDOMINAL Diagnosis Active 2014-02-08 Memoria PAIN 02-07 13:31:00 l 04:00: [place]ien ABDOMINAL 00 PAIN Active 02/07/2014 [facility] SPITTING Diagnosis Active 2013-11-29 M emoria UP BLOOD 11-28 05:06:00 l SPITTING 00:00: [place]vin n UP BLOOD 00 Active 11/28/2013 [facility] FLU LIKE Diagnosis Active 2012-082013-07-20 M emoria SYMPTOMS - 01:36:00 l FLU LIKE 00:00: Delvin n SYMPTOMS 00 Active 07/18/2013 [facility] Congestive Problem Active 2018-02-11 M emoria heart 08-02 13:48:01 l failure 00:00: [place] (disorder) Congestive 00 heart failure (disorder) Active 08/02/2012 Problem 02/11/2018 [facility], [facility], [facility] Diabetes Problem Resolve 2018-02-11 Me moria mellitus d 13:48:01 l (disorder) Diabetes He rmann mellitus (disorder) Resolved Problem 02/11/2018 [facility], [facility] History of Problem Resolve 2018-02-11 Memoria - CVA d 13:48:01 l (context-d History Her west ependent of - CVA category) (context-d ependent category) Resolved Problem 02/11/2018 [facility], [facility], [facility] Spider Problem Resolve 2018-02-11 Mike una bite wound d 13:48:01 l (disorder) Spider Herm jarret bite wound (disorder) Resolved Problem 02/11/2018 [facility], [facility] Syncope Problem Resolve 2018-02-11 Mem oria (disorder) d 13:48:01 l Syncope [place] (disorder) Resolved Problem 02/11/2018 [facility], [facility] Cerebrovas Problem Active 2018-02-11 M emoria cular 13:48:01 l accident [place] (disorder) Cerebrovas cular accident (disorder) Active Problem 02/11/2018 [facility], [facility], [facility] Hyperchole Problem Active 2018-02-11 M emoria sterolemia 13:48:01 l (disorder) Delvin n Hyperchole sterolemia (disorder) Active Problem 02/11/2018 [facility], [facility] Obesity Problem Active 2018-02-11 Mike una (disorder) 13:48:01 l Obesity [place] (disorder) Active Problem 02/11/2018 [facility], [facility] CHF NOS Diagnosis Active 2013-07-20 Me moria 01:36:00 l CHF NOS [place] Active [facility] RENAL Diagnosis Active 2014-02-08 Mem oria FAILURE 13:31:00 l NOS RENAL Lucien FAILURE NOS Active [facility] BACTERIAL Diagnosis Active 2014-05-17 Memoria INFECTION 21:53:00 l NOS Lucien BACTERIAL INFECTION NOS Active [facility] SEPTICEMIA Diagnosis Active 2015-02-20 Memoria NOS 10:16:00 l [place] SEPTICEMIA NOS Active [facility] LEFT SIDE Diagnosis Active 2016-11-26 Memoria - STROKE 21:56:00 l LEFT Lucien SIDE - STROKE Active [facility] CEREBRAL Diagnosis Active 2017-02-09 M emoria INFARCTION 12:12:00 l , CEREBRAL Delvin n UNSPECIFIE INFARCTION D , UNSPECIFIE D Active [facility] ALCOHOL Diagnosis Active 2016-08-07 Me moria 14:30:00 l ALCOHOL [place] Active Prevention HEMORRHAGE Diagnosis Active 2017-02-09 Memoria , NOT 12:12:00 l ELSEWHERE Lucien CLASSIFIED HEMORRHAGE , NOT ELSEWHERE CLASSIFIED Active [facility] ANESTHESIA Diagnosis Active 2017-04-18 Memoria OF SKIN 19:02:00 l Lucien ANESTHESIA OF SKIN Active [facility] History of Past Illness Condition Condition Condition Status Onset Resolution Last Treating Co mments Source Name Details Category Date Date Treatment Clinician Date Headache Problem 2017-04-24 2017-04-24 Memoria 04-21 04:47:52 04:47:52 l Headache 05:00: Delvin n 00 04/21/2017 04/24/2017 [facility] Discharge Problem 2016-08-30 2016-08-30 Memoria Diagnosis: 08-27 04:32:05 04:32:05 l Seizure 06:00: Lucien Discharge 00 Diagnosis: Seizure 08/27/2016 08/30/2016 [facility] Discharge Problem 2016-03-10 2016-03-10 Memoria Diagnosis: 03-07 01:50:45 01:50:45 l Acute 05:00: [place] viral Discharge 00 syndrome Diagnosis: Acute viral syndrome 6 03/10/2016 [facility] Discharge Problem 2016-03-10 2016-03-10 Memoria Diagnosis: 03-07 01:50:45 01:50:45 l Atypical 05:00: Lucien chest pain Discharge 00 Diagnosis: Atypical chest pain 03/07/2016 03/10/2016 [facility] Discharge Problem 2016-03-10 2016-03-10 Memoria Diagnosis: 03-07 01:50:45 01:50:45 l Acute 05:00: [place] hypokalemi Discharge 00 a Diagnosis: Acute hypokalemi a 03/07/2016 03/10/2016 [facility] Discharge Problem 2016-02-21 2016-02-21 Memoria Diagnosis: 02-17 04:59:11 04:59:11 l Syncope 05:00: [place]ien Discharge 00 Diagnosis: Syncope 02/18/2016 02/21/2016 [facility] Discharge Problem 2016-02-21 2016-02-21 Memoria Diagnosis: 02-17 04:59:11 04:59:11 l Tonic 05:00: [place] seizure Discharge 00 Diagnosis: Tonic seizure 02/18/2016 02/21/2016 [facility] Discharge Problem 2014-11-25 2014-11-25 Memoria Diagnosis: 11-22 05:15:16 05:15:16 l Muscle 05:00: Lucien strain Discharge 00 Diagnosis: Muscle strain 11/22/2014 11/25/2014 [facility] Discharge Problem 2014-11-25 2014-11-25 Memoria Diagnosis: 11-22 05:15:16 05:15:16 l Flank pain 05:00: Delvin n Discharge 00 Diagnosis: Flank pain 11/22/2014 11/25/2014 [facility] Discharge Problem 2013-12-02 2013-12-02 Memoria Diagnosis: 11-29 00:31:18 00:31:18 l Acute 05:00: Lucien bronchitis Discharge 00 Diagnosis: Acute bronchitis 11/29/2013 12/02/2013 [facility] Allergies, Adverse Reactions, Alerts This patient has no known allergies or adverse reactions. Social History Social Habit Start Date Stop Date Quantity Comments Source Social History 2016-09-14 2016-09-14 [facility] 18:42:26 18:42:26 Smoking Status Start Date Stop Date Source Heavy Tobacco Smoker [facility] Medications Ordered Filled Start Stop Current Ordering Indication Dosage Frequency Signature Comments Components Source Medication Medication Date Date Medication? Clinician (SIG) Name Name topiramate Yes See Memoria 25 MG Oral 9-18 Instructio l Tablet 15:10: ns, 1 tab Delvin n [Topamax] 00 PO BID for 7 days, then 2 tab PO BID thereafter , # 70 tab, 0 Refill(s), Pharmacy: [facility][id number] clopidogrel Yes 75 mg = 1 M emoria 75 MG Oral 9-18 tab, PO, l Tablet 14:27: Daily, # Lucien [Plavix] 55 30 tab, 0 Refill(s), Pharmacy: [id number] NIFEdipine Yes 60 mg = 1 Me moria 60 mg oral 9-18 tab, PO, l tablet, 14:26: Daily, # Delvin n extended 00 30 tab, 0 release Refill(s), Pharmacy: [facility] #[id number] carvedilol Yes 25 mg = 1 Me moria 25 mg oral 9-18 tab, PO, l tablet 14:26: BID, # 60 Delvin n 00 tab, 0 Refill(s), Pharmacy: [facility] #[id number] atorvastati Yes 20 mg = 1 M emoria n 20 mg 9-18 tab, PO, l oral tablet 14:26: Bedtime, # [place] 00 30 tab, 0 Refill(s), Pharmacy: [facility] #[id number] Aspirin 325 Yes 325 mg = 1 Memoria MG Enteric -18 tab, PO, l Coated 14:26: Daily, # Lucien Tablet 00 100 tab, 0 Refill(s), [id number] sacubitril Yes 1 tab, PO, M emoria 97 MG / -18 BID, # 60 l valsartan 14:26: tab, 0 Delvin n 103 MG Oral 00 Refill(s), Tablet [id number] heparin No Notes: Memoria sodium, 04-19 [...] 04-19 (Same l Oral Tablet 02:00: as:Keppra) [Keppra] 00 carvedilol No Notes: Memor ia 04-19 Give with l 02:00: food. [place] 00 (Same As: Coreg) Frantz's Yes 1 tab, PO, M emoria wort oral 04-19 [id number], 0 l capsule 01:57: Refill(s) Adrienne nn Ibuprofen Yes 800 mg, Memor ia 04-19 PO, BID, 0 l 01:55: Refill(s) Lucien 00 gabapentin Yes 300 mg = 1 M emoria 300 MG Oral 04-19 cap, PO, l Capsule 01:55: TID, # 90 Adrienne nn cap, 1 Refill(s) Famotidine No Notes: Memor ia 04-18 (Same as: l 22:33: Pepcid) Docusate No Notes: Memoria 04-18 (Same as: l 22:33: Colace) (Do Not Crush) Hydralazine No Notes: Mike una 04-18 (Same as: l 22:33: Apresoline ) Push over 5 minutes Zofran No Notes: Memoria 04-18 (Same as: l 22:33: Zofran) MEDICATION WASTE Product Size: 4 mg Product Wasted: ___ mg Tylenol No Notes: Do Memor ia 04-18 not exceed l 22:33: 4 gm/day. (Same as: Tylenol) Tums No Notes: Memoria [...] a 04-18 (Same As: l 22:33: Desyrel) Lucien clopidogrel No Notes: Mike una 04-18 (Same As: l 22:33: Plavix) [place] Aspirin 325 No Notes: (Do Memoria MG Enteric 04-18 Not Crush) l Coated 22:33: Do not [place] Tablet 00 crush or chew. Aspirin No Notes: Memoria 04-18 Take with l 22:30: food. Lucien 00 Metoclopram No Notes: Mike una ewa 04-18 (Same as: l 20:27: Reglan) Lucien 00 Diphenhydra No Notes: Mike una mine 04-18 (Same as: l 20:27: Benadryl) Saline No Notes: Memoria Flush 0.9% 04-18 (Same as: l 20:27: BD Lucien 00 Posiflush) Tylenol No Notes: Do Memor ia - not exceed l 21:28: 4 gm/day. [place] (Same as: Tylenol) Saline No Notes: Memoria Flush 0.9% 08-27 Same as: l 19:45: BD [place] 00 Posiflush Sterile Levetiracet 2015-08 No Notes: Mike una am 1000 MG 2-30 (Same l Oral Tablet 03:00: as:Keppra) [place] [Keppra] 00 Omnipaque 2015-08 No Notes: Memori a 350 2-29 (same l 15:00: as:Omnipaq [place] 00 ue 350). 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, Duration: 30 day, Stop date: 08/27/16 9:00:00 [employer] MA[employer] Levetiracet 2015-08 No 1,000 mg, M emoria am 1000 MG 09-28 Route: PO, l Oral Tablet 20:53: Drug form: [place] [Keppra] 00 TAB, Q12H, Dosing Weight 97.727, kg, Priority: NOW, Start date: 07/28/16 14:53:00 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 Do not use concomitan tly or within 36 hours of BECKY inhibitors Clonidine 2015-08 No Notes: Memori a Hydrochlori 2-27 (Same As: l de 0.2 MG 02:28: [...] ia 2-27 Give with l 00:14: food. Lucien 00 (Same As: Coreg) Keppra 2015-08 No Notes: Memoria 2-26 Same as l 23:00: Keppra Lucien 00 Mix with 100 mL NS, LR or D5W MEDICATION WASTE Product Size: 500 mg Product Wasted: ___ mg Ativan 2015-08 No Notes: Memoria 2-26 (Same as: l 22:22: Ativan) Lucien pneumococca 2015-08 No Notes: Mike una l capsular 2-26 (Same as: l polysacchar 20:55: Pneumovax H ermann ewa type 1 38 23) vaccine / Refrigerat pneumococca e l capsular polysacchar ewa type 10A vaccine / pneumococca l capsular polysacchar ewa type 11A vaccine / pneumococca l capsular polysacchar ewa type 12F vaccine / pneumococca l capsular polysacchar influenza 2015-08 No Notes: Memori a virus - (Same as: l vaccine, 20:54: Fluzone Delvin n inactivated 37 Quadrivale nt, Fluarix Quadrivale nt) For 3 years of age and older (0.5 mL IM) Shake well before use sacubitril 2015-08 Yes 1 tab, PO, M emoria 49 MG / 2- BID l valsartan 20:48: Lucien 51 MG Oral 00 Tablet [Entresto] Aspirin 2015-08 No Notes: Memoria - Take with l 19:12: food. Lucien 00 Acetaminoph 2015-08 No Notes: Mike una en 325 MG / 09-27 (Same as: l Hydrocodone 19:12: Maury Adrienne nn Bitartrate 00 325/5) Do 5 MG Oral not exceed Tablet 4gm/day of [Maury acetaminop 5/325] hen. Saline 2015-08 No Notes: Memoria Flush 0.9% - Same as: l 17:14: BD Lucien 00 [...] 8-06 Rate: l 0.9% 1000 20:27: 1,000 Lucien ml INJ 00 ml/hr, 1,000 mL Infuse [...] tab, PO, l 60 MG 20:13: Daily [place] Extended 00 Release Tablet lisinopril Yes 20 mg = 1 Me moria 20 mg oral 8-06 tab, PO, l tablet 20:13: BID [place] 00 carvedilol Yes 25 mg = 1 Me moria 25 mg oral 8-06 tab, PO, l tablet 20:12: BID Potassium No 40 mEq, 15 Me moria Chloride - mL, Route: l 1.33 MEQ/ML 20:12: PO, [...] 03-07 not exceed l 18:43: 4 gm/day. Lucien (Same as: Tylenol) Sodium No 1,000 mL, [...] 0.9% 03-07 Same as: l 18:04: BD Lucien 00 Posiflush Sterile Omnipaque No Notes: Memori a 350 7-19 (same l 21:00: as:Omnipaq ue 350). WASTE: F/P - Black; E - [employer] Hydralazine No Notes: Mike uan 02-17 (Same as: l 20:08: Apresoline ) Push over 5 minutes Acetaminoph No Notes: Do M emoria en 02-17 not exceed l 17:26: 4 gm/day. (Same as: Tylenol) Labetalol No 20 mg, 4 Mike una 02-17 mL, Route: l 17:26: IVP, Drug form: [...] 0 Memori a 4-23 Refill(s) l 17:20: Lucien Lisinopril Yes PO, Daily, M emoria 4-23 0 l 17:20: Refill(s) Metformin Yes PO, 0 Memoria 4-23 Refill(s) l 17:20: [place] Simvastatin 2015-0 Yes PO, Memori a 11-22 Bedtime, 0 l 17:20: Refill(s) Hydrochloro 2014-0 Yes PO, Daily, Memoria thiazide 11-22 0 l 17:19: Refill(s) Lucien 00 Morphine No 4 mg, Memoria 11-22 Route: l 16:18: IVP, ONCE, Dosing Weight 93.835, kg, Priority: STAT, Start date: 11/22/14 11:18:00, Stop date: 11/22/14 11:18:00 Ketorolac No 30 mg, Memori a 11-22 Route: l 16:18: IVP, ONCE, Dosing [...] 11-22 Infuse l 0.154 16:18: Over: 1 [place] MEQ/ML 00 hr, Route: Injectable IV, ONCE, Solution Priority: STAT, Dosing Weight 93.835 kg, Start date: 11/22/14 11:18:00, Duration: 1 doses or times, Stop date: 11/22/14 11:18:00 tramadol Yes 50 mg = 1 Mike una hydrochlori 1-17 tab, PO, l de 50 MG 00:22: Q6H, # 30 Herm jarret Oral Tablet 04 tab, 0 Refill(s) lisinopril Yes 10 mg = 1 Me moria 10 mg oral 1-17 tab, PO, l tablet 00:21: Daily, # [place] 33 60 tab, 0 Refill(s) carvedilol Yes [...] l Oral Tablet 00:20: Q12H, # 14 Lucien [Cipro] 00 tab, 0 Refill(s) Albuterol Yes 1 puff, Memor ia 0.09 1-17 INHALATION l MG/ACTUAT 00:20: , QID, Delvin gonzales Inhalant 00 wheezing, Solution # 1 ea, 0 Refill(s) { Yes Special Memoria (Methylpred 1-17 Instructio l [...] No 2001 mg: Me moria + Dextrose -16 infuse l 5% in Water 00:00: over 2.5 He rmann IV 250 mL 00 hours Vancomycin No Special Mike una 1-15 Instructio l 22:33: ns: Lucien 00 Pharmacy to dose Zosyn No Notes: Memoria 1-15 (Same as: l 18:00: Zosyn) Dosing based on Piperacill in component carvedilol No Notes: Memor ia 1-15 Give with l 03:00: food. Lucien (Same As: Coreg) multivitami No Notes: Mike una n -15 Same as l 03:00: Cerefolin NAC Non-formul sun item Levaquin No Notes: Memoria 1-15 (Same l 01:00: as:Levaqui n) Albuterol No Notes: Memori a 0.833 MG/ML 15 (Same as: l / 01:00: Duoneb) [place] Ipratropium 00 Lucinda 0.167 MG/ML Inhalant Solution Vasotec No Notes: Memoria 1-15 (Same as: l 00:42: Vasotec-IV ) Acetylcyste No 600 mg, Mem oria ine 200 -15 Route: PO, l MG/ML 00:35: Drug form: Delvin n Inhalant 00 SOLN, BID, Solution Dosing Weight 96.96, kg, Priority: STAT, Start date: 08/15/14 18:35:00, Duration: 2 day, Stop date: 08/17/14 17:00:00 Lopressor No Notes: Memori a 1-15 (Same as: l 00:34: Lopressor) Push over 2 minutes Clonidine No Notes: Memori a Hydrochlori 1-15 (Same As: l de 0.1 MG 00:34: Catapres) [place] Oral Tablet 00 Hydralazine No Notes: Mike una 1-15 (Same as: l 00:34: Apresoline ) Push over 5 minutes Ativan No Notes: Memoria 1-14 (Same as: l 22:16: Ativan) [place] 00 Morphine No Notes: Memoria 1-14 (Same l 22:15: as:MORPhin [place] 00 e Sulfate) Ativan No Notes: Memoria 1-14 (Same as: l 20:15: Ativan) [place] 00 Aspirin 81 No Notes: Do Me moria MG Enteric 08-15 not crush l Coated 15:00: or chew. [place] Tablet 00 (Same As: Ecotrin) Simvastatin No Notes: Mike una 14 (Same as: l 03:00: Zocor) [place] 00 Coreg No Notes: Memoria 14 Give with l 03:00: food. [place] (Same As: Coreg) Acetaminoph No Notes: Max Memoria en 08-15 acetaminop l 01:53: hen = 4000 Lucien 00 mg/day (4 gm/day). (Same as: Tylenol) tramadol No Notes: Not Mem oria hydrochlori 08-15 to exceed l de 50 MG 01:53: 400mg/day. [place] Oral Tablet 00 (Same As: Ultram) Insulin, No Notes: Memoria Aspart, 08-15 Roll in l Human 01:28: palms of [place] 00 hands gently; Do not shake vigorously . (Same as: NovoLOG) "single patient use only" Stable for 28 days at room temperatur e. Expires in days from ____Date Dextrose No 12.5 gm, Memor ia 50% Syringe 08-15 25 mL, l 01:28: Route: [place] 00 IVP, Drug Form: INJ, Dosing Weight 96.96, kg, PRN, PRN Blood Glucose Results, Start date: 08/14/14 19:28:00, Duration: 30 day, Stop date: 09/13/14 19:27:00 Glucagon No 1 mg, Memoria 08-15 Route: IM, l 01:28: Drug form: Lucien 00 PDR/INJ, PRN, Dosing Weight 96.96, kg, PRN Blood Glucose Results, Start date: 08/14/14 19:28:00, Duration: 30 day, Stop date: 09/13/14 19:27:00 Magnesium No Notes: Memori a Oxide 1-13 (Same as: l 17:30: Mag-Ox 400) Magnesium oxide 284aw=863p g elemental magnesium Dose=____m g magnesium oxide (___mg elemental magnesium) Lisinopril No Notes: Memor ia 1-13 (Same as: l 17:30: Prinivil, Zestril) carvedilol No Notes: Memor ia 1-13 Give with l 17:30: food. Lucien 00 (Same As: Coreg) Hydralazine No Notes: Mike una 1-13 (Same as: l 17:04: Apresoline ) Push over 5 minutes Tamiflu No Notes: Memoria 1-13 Take with l 17:00: food. Same [place] 00 as: Tamiflu) Enoxaparin No Notes: Memor ia 1-13 (Same as: l 17:00: Lovenox) Albuterol No Notes: Memori a 0.833 MG/ML - (Same as: l / 16:53: Duoneb) Ipratropium 00 Lucinda 0.167 MG/ML Inhalant Solution Ondansetron No Notes: Mike una 1-13 (Same as: l 16:53: Zofran) Acetaminoph No Notes: Do M emoria en - not exceed l 16:53: 4 gm/day. Lucien 00 (Same as: Tylenol) Guaifenesin No Notes: Mike una 1-13 (Same as: l 16:53: Robitussin ) Lasix No Notes: Memoria 1-13 (Same as: l 14:27: Lasix) Zithromax No Notes: Memori a 1-13 Same as: l 14:27: Zithromax Rocephin No Notes: Memoria 1-13 (Same As: l 14:27: Rocephin). Use with 100ml NS mini-bag PLUS and infuse over 30 min Labetalol No Notes: Memori a 08-14 (Same as: l 13:45: Normodyne, Lucien 00 Trandate) Push over 2 minutes Give bolus over 2-3 minutes. 24 HR No Notes: Memoria Nitroglycer 08-14 Apply only l in 0.4 13:45: once [...] Chloride 08-14 1000 l 0.154 13:28: ml/hr, [place] MEQ/ML 00 Infuse Injectable Over: 1 Solution hr, Route: IV, 1,000, Drug form: INJ, ONCE, Priority: STAT, Dosing Weight 113.636 kg, Start date: 08/14/14 7:28:00, Duration: 1 doses or times, Stop date: 08/14/14 7:28:00 Ibuprofen No Notes: Memori a 08-14 (Same as: l 13:28: Motrin) [place] 00 "Do Not Crush" Give with food. Acetaminoph No Notes: Do M emoria en 08-14 not exceed l 13:28: 4 gm/day. [place] 00 (Same as: Tylenol) Acetaminoph 2013-08 Yes 1 tab, PO, Memoria en 325 MG / 0-12 Q4H, Pain l Hydrocodone 17:19: Score 4-6, [place] Bitartrate 00 # 42 tab, 10 MG [...] 50 MG 17:19: Q6H, # 30 Herm jarret Oral Tablet 00 tab, 0 Refill(s) Sulfamethox 2013-08 Yes 1 tab, PO, Memoria azole 800 0-12 [id number], # l MG / 17:19: 14 tab, 0 [place] Trimethopri 00 Refill(s) m 160 MG Oral Tablet Docusate 2013-08 Yes 1 tab, PO, Mem oria Sodium 50 0-12 BID, # 30 l MG / 17:19: tab, 0 [place] sennosides, 00 Refill(s) LONG-TERM 8.6 MG Oral Tablet carvedilol 2013-08 Yes [...] 14 l Clavulanate 17:19: tab, 0 Herm jarret 125 MG Oral 00 Refill(s) Tablet [Augmentin 875-mg] carvedilol 2013-08 No Notes: Memor ia 0-12 Give with l 02:00: food. [place] 00 (Same As: Coreg) Docusate 2013-08 No Notes: Memoria Sodium 50 0-11 (Same as l MG / 14:00: Senokot-S) [place] sennosides, 00 Equiv. to LONG-TERM 8.6 MG Lorie-Colac Oral Tablet e. Fluzone [...] ia 0-11 Give with l 02:00: food. [place] (Same As: Coreg) Amoxicillin 2013-08 No Notes: Mike una 875 MG / 0-11 With food. l Clavulanate 02:00: (Same as: H ermann 125 MG Oral 00 Augmentin Tablet 875) [Augmentin 875-mg] Bactrim DS 2013-08 No Notes: One M emoria 0-11 DS tablet l 00:00: = [place] 00 trimethopr im 160mg + sulfametho xazole 800 mg Dose based on trimethopr im component On empty stomach with a glass of water. 1 hr before meals (Same As: Bactrim DS, Septra DS) heparin, 2013-08 No Notes: Memoria porcine 0-10 porcine l 21:00: heparin [place] 00 Hydrochloro 2013-08 No Notes: Mike una thiazide 0-10 (Same as: l 18:47: Hydrodiuri Lucien 00 l) With food. Lisinopril 2013-08 No Notes: Memor ia 0-10 (Same as: l 18:46: Prinivil, [place] 00 Zestril) Coreg 2013-08 No Notes: Memoria 0-10 Give with l 18:46: food. [place] 00 (Same As: Coreg) Coreg 2013-08 No Notes: Memoria 0-10 Give with l 16:24: food. Lucien 00 (Same As: Coreg) Lisinopril 2013-08 No Notes: Memor ia 0-10 (Same as: l 16:24: Prinivil, Lucien 00 Zestril) vancomycin 2013-08 No 2001 mg: Me moria + Sodium 0-10 infuse [...] n 0-10 (Same as: l 11:18: Lipitor) Metoprolol 2013-08 No Notes: Memor ia 0-10 (Same as: l 11:18: Lopressor) Push over 2 minutes aspirin 2013-08 No Notes: Memoria 0-10 Take with l 11:17: food. Labetalol 2013-08 No 20 mg, Memori a [...] Memoria 0-09 (Same as: l 22:35: Sublimaze) Preservat raoul free. Hydromorpho 2013-08 No Notes: Mike una ne 0-09 Same as: l 22:35: Dilaudid Lucien 00 Promethazin 2013-08 No Notes: Do M emoria e 0-09 not give l 22:35: IV push. Lucien 00 (Same as: Phenergan) Ondansetron 2013-08 No Notes: Mike una 0-09 (Same as: l 22:35: Zofran) Lisinopril 2013-08 No Notes: Memor ia 0-09 (Same as: l 05:00: Prinivil, Zestril) vancomycin 2013-08 No 2000 mg: Me [...] ia 0-08 Give with l 14:00: food. [place] 00 (Same As: Coreg) Influenza 2013-08 No Notes: Memori a Virus 0-08 (Same as: l Vaccine, 14:00: Fluzone Delvin n Inactivated 00 [place] A-[place]- nt) 10-2006 (H3N2)-like virus (A-[place]- -2006 [facility] X-175C) strain / Influenza Virus Vaccine, Inactivated A-[place]- 59-2007, IVR-148 (H1N1) strain / Influenza Virus Vaccine, Inactivated , B-- -2005-lik Docusate 2013-08 No Notes: Memoria 0-08 (Same as: l 14:00: Colace) Lucien 00 Ceftriaxone 2013-08 No Notes: Mike una 0-08 (Same As: l 12:00: Rocephin). Use with 100ml NS mini-bag PLUS and infuse over 30 min Zofran 2013-08 No Notes: Memoria 0-08 (Same as: l 11:40: Zofran) [place] 00 Vancomycin 2013-08 No 2001 mg: Me moria 0-08 infuse l 11:39: over 2.5 Lucien 00 hours Potassium 2013-08 No Notes: Memori a Chloride 0-08 (Same as: l 11:36: KCL) Infuse no faster than 10 mEq/hr if given peripheral ly. Insulin, 2013-08 No Notes: Memoria Aspart, 0-08 Roll in l Human 11:36: palms of hands gently; Do not shake vigorously . (Same as: NovoLOG) "single patient use only" Stable for 28 days at room temperatur e. Expires in days from ____Date Dextrose 2013-08 No 25 gm, 50 Mike una 50% Syringe 0-08 mL, Route: l 11:36: IVP, Drug Form: INJ, Dosing Weight 97.727, kg, PRN, PRN Blood Glucose Results, Start date: 05/09/14 6:36:00, Duration: 30 day, Stop date: 06/08/14 5:35:00 Glucagon 2013-08 No 1 mg, Memoria 0-08 Route: IM, l 11:36: Drug form: PDR/INJ, PRN, Dosing Weight 97.727, kg, PRN Blood Glucose Results, Start date: 05/09/14 6:36:00, Duration: 30 day, Stop date: 06/08/14 5:35:00 Saline 2013-08 No Notes: Memoria Flush 0.9% 0-08 (Same as: l 11:35: BD Posiflush) Ondansetron 2013-08 No Notes: Mike una 0-08 (Same as: l 11:35: Zofran) Acetaminoph 2013-08 No Notes: Do M emoria en 0-08 not exceed l 11:35: 4 gm/day. [place] (Same as: Tylenol) Acetaminoph 2013-08 No Notes: Mike una en 325 MG / 0-08 (Same as: l Hydrocodone 11:35: Maury Adrienne nn Bitartrate 00 325/5) Do 5 MG Oral not exceed Tablet 4gm/day of acetaminop hen. Morphine 2013-08 No Notes: Memoria 0-08 (Same l 11:35: as:MORPhin Lucien 00 e Sulfate) Acetaminoph 2013-08 No Notes: Do M emoria en 325 MG / 0-08 not exceed l Hydrocodone 11:35: 4gm/day of [place] Bitartrate 00 acetaminop 10 MG Oral hen. Tablet (Same as: Maury 325/10) Metformin 2013-08 Yes 500 mg = 1 Me moria hydrochlori 0-08 tab, PO, l de 500 MG 10:54: BID, # 30 [place] west Oral Tablet 00 tab, 0 Refill(s) Dilaudid 2013-08 No 1 mg, Memoria 0-08 Route: l 08:14: IVP, ONCE, Dosing Weight 113.636, kg, Priority: STAT, Start date: 05/09/14 3:14:00, Stop date: 05/09/14 3:14:00 Ceftriaxone 2013-08 No Notes: Mike una 0-08 (Same As: l 08:08: Rocephin). [place] 00 Use with 100ml NS mini-bag PLUS [...] Memoria 0-08 Same as: l 04:58: Dilaudid [place] Vancomycin 2013-08 No 2001 mg: Me moria 0-08 infuse l 04:57: over 2.5 Lucien 00 hours Saline 2013-08 No Notes: Memoria Flush 0.9% 0-08 (Same as: l 04:57: BD Lucien 00 Posiflush) Lisinopril No Notes: Memor ia 7-12 (Same as: l 14:00: Prinivil, [place] 00 Zestril) Coreg No Notes: Memoria 7-12 Give with l 02:00: food. [place] 00 (Same As: Coreg) lisinopril Yes 5 mg = 1 Mem oria 5 mg oral 7-11 tab, PO, l tablet 18:18: Daily, # Lucien 00 30 tab, 0 Refill(s) carvedilol Yes 6.25 mg = Me moria 12.5 mg 7-11 0.5 tab, l oral tablet 18:18: PO, BID, # [place] 00 15 tab, 0 Refill(s) Hydrochloro Yes 25 mg = 1 M emoria thiazide 25 7-11 tab, PO, l MG Oral 18:18: Daily, for Herm jarret Tablet 00 edema, # 30 tab, 0 Refill(s) Simvastatin No Notes: Miek una 7-11 (Same as: l 02:00: Zocor) Coreg No Notes: Memoria 7-10 Give with l 16:00: food. (Same As: Coreg) Hydrochloro No 1 tab, PO, Memoria thiazide 7-10 Bedtime, 0 l 12.5 MG / 05:35: Refill(s) Her west Lisinopril 00 20 MG Oral Tablet carvedilol No 12.5 mg = Me moria 12.5 MG 7-10 1 tab, PO, l Oral Tablet 05:35: BID, # 60 H ermann [Coreg] 00 tab, 0 Refill(s) Metformin No 500 mg, Memor ia 7-10 PO, l 05:35: Dinner, 0 00 Refill(s) Simvastatin Yes 40 mg = 1 M emoria 7-10 tab, PO, l 05:35: Bedtime, # [place] 00 30 tab, 0 Refill(s) NS 1,000 [...] en 02-07 acetaminop l 17:54: hen = [place] 4000mg/day (4 gm/day). (Same as: Tylenol) Ondansetron No Notes: Mike una 02-07 (Same as: l 17:54: Zofran) [place] 00 Docusate No Notes: Memoria 02-07 (Same as: l 17:54: Colace) (Do Not Crush) Omnipaque No 50 mL, Memori a 240 02-07 Route: PO, l 14:41: Dosing Weight 96.364, kg, ONCE, Start date: 02/07/14 9:41:00, Stop date: 02/07/14 9:41:00 Sodium 2013-0 No 1,000 mL, Memori a Chloride 02-07 999 ml/hr, l 0.154 14:27: Infuse [place] MEQ/ML 00 Over: 1 Injectable hr, Route: [...] Memoria 02-07 Route: l 12:33: IVP, Drug form: INJ, ONCE, Dosing Weight 96.364, kg, Priority: STAT, Start date: 02/07/14 7:33:00, Stop date: 02/07/14 7:33:00 Zofran No 8 mg, Memoria 02-07 Route: l 12:33: IVP, Drug [place] 00 form: INJ, ONCE, Dosing Weight 96.364, kg, Priority: STAT, Start date: 02/07/14 7:33:00, Stop date: 02/07/14 7:33:00 Azithromyci Yes 500 mg = 1 Memoria n 500 MG 4-30 tab, PO, l Oral Tablet 09:46: Daily, # 7 Lucien [Zithromax] 00 tab, 0 Refill(s) benzonatate Yes 100 mg = 1 Memoria 100 MG Oral 4-30 cap, PO, l Capsule 09:46: TID, # 21 Adrienne nn [Tessalon 00 cap, 0 Perles] Refill(s) carvedilol 2012-08 Yes Evan E 12.5 mg = Memoria 12.5 mg 2-20 Pierre II 1 tab, PO, l oral tablet 21:21: Q12H, # 60 Lucien 00 tab, 0 Refill(s) Tessalon 2012-08 Yes [place] E 200 mg = 1 Memoria 200 mg oral 2-20 Pierre II cap, PO, l capsule 21:21: TID, # 30 Adrienne nn 00 cap, 0 Refill(s) albuterol 2012-08 Yes [place] E 1 puff, Me moria 90 mcg/inh 2-20 Pierre II INHALATION l inhalation 21:21: , QID, Adrienne nn aerosol 00 wheezing, # 1 ea, 0 Refill(s) aspirin 81 2012-08 Yes [place] E 81 mg = 1 Memoria mg tablet, 2-20 Pierre II tab, PO, l enteric 21:21: Daily, # Delvin n coated 00 30 tab, 0 Refill(s) cloNIDine 2012-08 Yes [place] E 0.1 mg = 1 Memoria 0.1 mg oral 2-20 Pierre II tab, PO, l tablet 21:21: TID, Lucien 00 Elevated BP | sbp >/= 160, # 60 tab, 0 Refill(s) simvastatin 2012-08 Yes [place] E 40 mg = 2 Memoria 20 mg oral 2-20 Pierre II tab, PO, l tablet 21:21: Bedtime, # Adrienne nn 00 30 tab, 0 Refill(s) lisinopril 2012-08 Yes Evan E 20 mg = 1 Memoria 20 mg oral 2-20 Pierre II tab, PO, l tablet 21:21: Q12H, HOLD Adrienne nn 00 IF SBP HOLD IF SBP </= 110 furosemide 2012-08 Yes [place] E 40 mg = 1 Memoria 40 mg oral 2-20 Pierre II tab, PO, l tablet 21:21: Daily, # [place] 00 30 tab, 0 Refill(s) Levaquin 2012-08 Yes Akinyinka 750 mg = 1 Memoria 750 mg oral 2-20 Ajelabi tab, PO, l tablet 19:43: Q24H, # 7 Delvin n 00 tab, 0 Refill(s) Lasix 2012-08 No Steven 40 mg, 1 Memori a 2-20 Guzmán tab, l 15:00: Lydia II Route: PO, He rmann 00 Drug form: TAB, Daily, Dosing Weight 93.3, kg, Start date: 07/21/13 9:00:00, Duration: 30 day, Stop date: 08/19/13 9:00:00(Sa me as: Lasix) May cause GI upset. Give with food or milk. hydrALAZINE 2012-08 No Evan E 10 mg, 0.5 Memoria 2-19 Pierre II mL, Route: l 20:02: IVP, Drug [place] 00 form: INJ, Q6H, Dosing Weight 97.727, kg, PRN Hypertensi on, Start date: 07/20/13 14:02:00, Duration: 30 day, Stop date: 08/19/13 14:01:00, SBP>/=150 OR DBP>/=90(S qian as: Apresoline ) Push over 5 minutes aspirin 325 2012-08 No [place] E 325 mg, 1 Memoria mg tablet, 2-19 Pierre II tab, l enteric 15:00: Route: PO, Herm jarret coated 00 Drug form: ECTAB, Daily, Dosing [...] Pierre II tab, l 02:50: Route: PO, [place] 00 Drug form: TAB, Q12H, Dosing Weight 97.727, kg, Priority: STAT, Start date: 07/19/13 20:50:00, Duration: 30 day, Stop date: 08/18/13 9:00:00(Sa me as: Prinivil, Zestril) magnesium 2012-08 No Lisa M 2 gm, 50 Memoria sulfate 2-18 Pamela mL, Route: l 16:51: IVPB, Drug [place] 00 form: INJ, PRN, Dosing Weight 93.3, [...] Pamela mL, Route: l 16:51: IVPB, Drug [place] 00 form: INJ, PRN, Dosing Weight 93.3, [...] 2-18 Pamela tab, l 16:51: Route: PO, [place] 00 Drug form: ERTAB, PRN, Dosing Weight 93.3, kg, PRN Abnormal Lab Result, Start date: 07/19/13 10:51:00, Duration: 30 day, Stop date: 08/18/13 10:50:00, FOR ICU USE ONLYFOR ICU USE ONLY(Same as: K-Dur 20) "Do Not Crush" With food and full glass of water Lasix 2012-08 No Steven 40 mg, 4 Memori a 2-18 Guzmán mL, Route: l 15:00: [place] II IVP, Drug [place] 00 form: INJ, Daily, Dosing Weight 97.727, kg, Priority: Routine, Start date: 07/19/13 9:00:00, Duration: 30 day, Stop date: 08/17/13 9:00:00( me as: Lasix) folic acid 2012-08 No [place] E 1 mg, 1 M emoria 2-18 Ignacio II tab, l 15:00: Route: PO, Lucien 00 Drug form: TAB, Daily, Dosing Weight 97.727, kg, Start date: 07/19/13 9:00:00, Duration: 30 day, Stop date: 08/17/13 9:00:00( me as: Folvite) multivitami 2012-08 No Evan E 1 tab, M emoria n 2-18 Ignacio II Route: PO, l 15:00: Drug Form: [place] 00 TAB, Dosing Weight 97.727, kg, Daily, Start date: 07/19/13 9:00:00, Duration: 30 day, Stop date: 08/17/13 9:00:00 thiamine 2012-08 No Evan E 100 mg, 1 M emoria 2-18 Pierre II tab, l 15:00: Route: PO, [place] 00 Drug form: TAB, Daily, Dosing Weight 97.727, kg, Start date: 07/19/13 9:00:00, Duration: 30 day, Stop date: 08/17/13 9:00:00( me As: Vitamin B1) influenza 2012-08 Yes SYSTEM 0.5 mL, Mem oria virus 2-18 SYSTEM Route: IM, l vaccine, 15:00: Drug Form: Her west inactivated 00 SUSP, Daily, Start date: 07/19/13 9:00:00, Duration: 1 doses or times, Stop date: 07/19/13 9:00:00( me as: Fluzone) multivitami 2012-08 No Evan [...] Route: Lucien 00 IVPB, Drug form: INJ, [id number], Start date: 07/19/13 6:00:00, Stop date: 08/18/13 2:00:00Sam e as: Vancocin-N S (premixed) Maury 2012-08 No Evan E 1 tab, Memoria 10/325 oral 2-18 Ignacio II Route: PO, l tablet 06:00: Drug Form: Adrienne nn 00 TAB, Dosing Weight 97.727, kg, Q6H, Start date: 07/19/13 0:00:00, Duration: 30 day, Stop date: 08/17/13 18:00:00Do not exceed 4gm/day of acetaminop hen. (Same as: Maury 325/10) albuterol-i 2012-08 No [place] E 3 mL, Me moria pratropium 2-18 Ignacio II Route: l 2.5-0.5 mg 05:00: NEB, Drug He rm inhalation 00 Form: solution SOLN, Dosing Weight 97.727, kg, RQ4H, Start date: 07/18/13 23:00:00, Duration: 30 day, Stop date: 08/17/13 19:00:00(S qian as: Duoneb) Joyon 2012-08 No Evan E 200 mg, 2 [facility] Franco 18 Ignacio II cap, l 04:00: Route: PO, Lucien 00 Drug form: CAP, Q8H-06, Dosing Weight 97.727, kg, Start date: 07/18/13 22:00:00, Duration: 30 day, Stop date: 08/17/13 14:00:00(S qian As: Freida Gamez) "Do Not Crush" lisinopril 2012-08 No [place] E 10 mg, 1 Memoria 09-19 Ignacio II tab, l 03:00: Route: PO, [place] 00 Drug form: TAB, Q12H, Dosing Weight 97.727, kg, Start date: 07/18/13 21:00:00, Duration: 30 day, Stop date: 08/17/13 9:00:00([facility] as: Prinivil, Zestril) Coreg 2012-08 No Steven 12.5 mg, 1 Mike una -18 Guzmán tab, l 03:00: Lydia II Route: PO, He rm Drug form: TAB, Q12H, Dosing Weight 97.727, kg, Start date: 07/18/13 21:00:00, Stop date: 08/17/13 9:00:00Giv e with food. (Same As: Coreg) Vancomycin 2012-08 No Akinyinka 1 gm, M [facility] 09-19 Ajelabi Route: IV, l Dosing 03:00: Dosing [place] 00 Weight 97.727, kg, Q12H, Start date: 07/18/13 21:00:00, Duration: 30 day, Stop date: 08/17/13 9:00:00 Nicoderm 2012-08 No Concord E 21 mg, 1 Me moria C-Q 18 Ignacio II patch, l 02:25: Route: Lucien TOP, Drug form: ERFILM, Daily, Dosing Weight 97.727, kg, Start date: 07/18/13 20:25:00, Duration: 30 day, Stop date: 08/17/13 9:00:00([facility] as: Habitrol) "Remove old patch before applicatio n of new patch" Ativan 2012-08 No Evan E 1 mg, 0.5 Mem oria 2-18 Ignacio II mL, Route: l 02:18: IVP, Drug form: INJ, Q2H, Dosing Weight 97.727, kg, PRN Anxiety, Start date: 07/18/13 20:18:00, Duration: 30 day, Stop date: 08/17/13 20:17:00, SIGNS OF WITHDRAWAL , AGITATION, Anxiety([facility] as: Ativan) clonidine 2012-08 No [place] E 0.1 mg, 1 Memoria 0.1 mg oral 2-18 Ignacio II tab, l tablet 02:17: Route: PO, Adrienne Drug form: TAB, TID, Dosing Weight 97.727, kg, PRN Elevated BP, Start date: 07/18/13 20:17:00, Duration: 30 day, Stop date: 08/17/13 20:16:00, sbp >/= 180(Same As: Catapres) vancomycin 2012-08 No Akinyinka 1.5 gm, Memoria 2-18 Ajelabi 250 mL, l 02:00: Route: IVPB, Drug form: INJ, ONCE, Start [...] as: Robitussin -DM) Colace 100 2012-08 No [place] E 100 mg, 1 Memoria mg oral 2-18 Ignacio II cap, l capsule 01:28: Route: PO, Herm Drug form: CAP, BID, Dosing Weight 97.727, kg, PRN Constipati on, Start date: 07/18/13 19:28:00, Duration: 30 day, Stop date: 08/17/13 19:27:00(S qian as: Colace) (Do Not Crush) Gas-X Ultra 2012-08 No Evan E 160 mg, 2 Memoria Softgels 2-18 Ignacio II tab, l :28: Route: PO, [place] 00 Drug form: CHEWTAB, Q4H, Dosing Weight 97.727, kg, PRN Gas, Start date: 07/18/13 19:28:00, Duration: 30 day, Stop date: 08/17/13 19:27:00(S qian as: Mylicon) GI cocktail 2012-08 No Concord E 30 ml, M emoria 2-18 Ignacio II Route: PO, l 01:28: Drug Form: [place] 00 SUSP, Dosing Weight 97.727, kg, Q4H, PRN GI Upset, Routine, Start date: 07/18/13 19:28:00, Duration: 30 day, Stop date: 08/17/13 19:27:00, DYSPEPSIAG .I. Cocktail = antacid with simethicon e 22.5 mL - lidocaine viscous 7.5 mL morphine 2012-08 No Concord E 2 mg, 1 Mem oria Sulfate 2-18 Ignacio II mL, Route: l 01:28: IVP, Drug form: INJ, Q6H, Dosing Weight 97.727, kg, PRN as needed for pain, Start date: 07/18/13 19:28:00, Duration: 30 day, Stop date: 08/17/13 19:27:00(S qian as:MORPhin e Sulfate) Tylenol 2012-08 No Evan E 650 mg, Mike una 2-18 Ignacio II Route: PO, l 01:28: Drug form: [place] 00 TAB, Q6H, Dosing Weight 97.727, kg, PRN Pain, Start date: 07/18/13 19:28:00, Duration: 30 day, Stop date: 08/17/13 19:27:00 hydrALAZINE 2012-08 No [place] E 10 mg, 0.5 Memoria 2-18 Pierre II mL, Route: l :28: IVP, Drug Lucien 00 form: INJ, Q6H, Dosing Weight 97.727, kg, PRN Elevated BP, Start date: 07/18/13 19:28:00, Duration: 30 day, Stop date: 08/17/13 19:27:00, SBP>/=160 OR DBP>/=90(S qian as: Apresoline ) Push over 5 minutes lactulose 2012-08 No Concord E 20 gm, 30 Memoria 2-18 Pierre II ml, Route: l :28: PO, Drug [place] 00 Form: SYRP, Dosing Weight 97.727, kg, TID, PRN Constipati on, Start date: 07/18/13 19:28:00, Duration: 30 day, Stop date: 08/17/13 19:27:00(S qian as:Chronul ac) Zofran 2012-08 No Concord E 4 mg, 2 Memor ia 2-18 Pierre II mL, Route: l :: IV, Drug Lucien 00 form: INJ, Q4H, Dosing Weight 97.727, kg, PRN Nausea, Start date: 07/18/13 19:28:00, Duration: 30 day, Stop date: 08/17/13 19:27:00(S qian as: Zofran) acetaminoph 2012-08 No Evan E 650 mg, 2 Memoria en 2-18 Pierre II tab, l :28: Route: PO, Lucien 00 Drug form: TAB, [...] II 0.1 mL, l protein 01:22: Route: [place] derivative 00 INTRADERM, 5 ONCE, tuberculin Dosing units/0.1 Weight mL 97.727, intradermal kg, Start solution date: 07/18/13 19:22:00, Stop date: 07/18/13 19:22:00 levofloxaci 2012-08 No Akinyinka 750 mg, Memoria n 2-18 Ajelabi 150 mL, l 00:00: Route: IV, Lucien 00 Drug form: SOLN, [id number], Dosing Weight 97.727, kg, Start date: 07/18/13 18:00:00, Duration: 30 day, Stop date: 08/16/13 18:00:00(S qian as:Levaqui n) Lasix 2012-08 No Akinyinka 40 mg, 4 Mem oria 2-17 Ajelabi mL, Route: l 23:20: IV, Drug form: INJ, ONCE, Dosing Weight [...] Faig mL, Route: l 20:40: IVP, Drug [place] 00 form: INJ, ONCE, Dosing Weight 97.727, kg, Priority: STAT, Start date: 07/18/13 14:40:00, Stop date: 07/18/13 14:40:00(S qian as: Apresoline ) Push over 5 minutes Tylenol 2012-08 No Kory Eyal 650 mg, Mem oria 2-17 Faig Route: PO, l 20:12: Drug form: [place] 00 TAB, ONCE, Dosing Weight 97.727, kg, [...] l 2.5-0.5 mg 19:00: NEB, Drug He rm inhalation 00 Form: solution SOLN, Dosing Weight 97.727, kg, ONCE, STAT, Start date: 07/18/13 13:00:00, Stop date: 07/18/13 13:00:00 Saline 2012-08 No Kory Eyal 5 mL, Memori a Flush 0.9% 2-17 Faig Route: l 19:00: IVP, Drug [place] 00 Form: INJ, Dosing Weight 97.727, kg, PRN, PRN Line Flush, Start date: 07/18/13 13:00:00, Duration: 1 doses or times, Stop date: Limited # of times(Same as: BD Posiflush) Asprin Ec Asprin Ec No 1 Q1D Asprin Ec [place] Low Dose 81 Low Dose 81 Low Dose Family mg mg 81 mg Practic tablet,delgado tablet,delgado tablet,del e yed release yed release ayed Take 1 Take 1 release tablet tablet Take 1 every day every day tablet by oral by oral every day route. route. by oral route. atorvastati atorvastati No 1 Q1D atorvastat [facility] n 80 mg n 80 mg in 80 mg Famil y tablet Take tablet Take tablet Practic 1 tablet 1 tablet Take 1 e every day every day tablet by oral by oral every day route for route for by oral 90 days. 90 days. route for 90 days. carvedilol carvedilol No 1 BID carvedilol [facility] 25 mg 25 mg 25 mg Family tablet Take tablet Take tablet Practic 1 tablet 1 tablet Take 1 e twice a day twice a day tablet by oral by oral twice a route for route for day by 90 days. 90 days. oral route for 90 days. clopidogrel clopidogrel No 1 Q1D clopidogre [facility] 75 mg 75 mg l 75 mg Family tablet Take tablet Take tablet Practic 1 tablet 1 tablet Take 1 e every day every day tablet by oral by oral every day route for route for by oral 90 days. 90 days. route for 90 days. Entresto 97 Entresto 97 No Entresto [place] mg-103 mg mg-103 mg 97 mg-103 Family tablet TAKE tablet TAKE mg tablet Practic ONE TABLET ONE TABLET TAKE ONE e BY MOUTH BY MOUTH TABLET BY TWICE DAILY TWICE DAILY MOUTH TWICE DAILY gabapentin gabapentin No 1capsul Q1D gabapentin [facility] 300 mg 300 mg e(s) 300 mg Family capsule capsule capsule Practi c Take 1 Take 1 Take 1 e capsule capsule capsule every day every day every day by oral by oral by oral route. route. route. levetiracet levetiracet No 1 BID levetirace [facility] am 1,000 mg am 1,000 mg perkins 1,000 Family tablet Take tablet Take mg tablet Practic 1 tablet 1 tablet Take 1 e twice a day twice a day tablet by oral by oral twice a route for route for day by 30 days. 30 days. oral route for 30 days. nifedipine nifedipine No 1 Q1D nifedipine [place] [facility] 60 mg ER 60 mg ER 60 mg Fam jose tablet,exte tablet,exte tablet,ext Practic nded nded ended e release release release Take 1 Take 1 Take 1 tablet tablet tablet every day every day every day by oral by oral by oral route for route for route for 90 days. 90 days. 90 days. trazodone trazodone No 1 trazodone [facility] 100 mg 100 mg 100 mg Family [...] oral day by route. route. oral route. Vital Signs Vital Name Observation Time Observation Value Comments Source BP Diastolic 2017-10-19 00:00:00 77 mm[Hg] [facility] Height 2017-10-19 00:00:00 66 [in_i] [facility] BMI (Body Mass Index) 2017-10-19 00:00:00 37.8 kg/m2 [facility] BP Systolic 2017-10-19 00:00:00 132 mm[Hg] [facility] Body Weight 2017-10-19 00:00:00 234 [lb_av] [facility] BP Diastolic 2017-10-08 00:00:00 76 mm[Hg] [facility] Height 2017-10-08 00:00:00 66 [in_i] [facility] BMI (Body Mass Index) 2017-10-08 00:00:00 38 kg/m2 [facility] BP Systolic 2017-10-08 00:00:00 116 mm[Hg] [facility] Body Weight 2017-10-08 00:00:00 235.6 [lb_av] [facility] BP Diastolic 2017-08-25 00:00:00 82 mm[Hg] [facility] Height 2017-08-25 00:00:00 66 [in_i] [facility] BMI (Body Mass Index) 2017-08-25 00:00:00 39.3 kg/m2 [facility] BP Systolic 2017-08-25 00:00:00 110 mm[Hg] [facility] Body Weight 2017-08-25 00:00:00 243.6 [lb_av] [facility] Systolic (mm Hg) 2017-04-21 06:49:00 Mike Mcgraw Diastolic (mm Hg) 2017-04-21 06:49:00 Danilo Mcgraw Heart Rate 2017-04-21 06:49:00 [facility] [place] Respitory Rate 2017-04-21 06:49:00 Memori al [place] Temperature Oral (F) 2017-04-21 06:49:00 98.4 F [facility]ien Height 2017-04-21 06:49:00 180.34 cm [facility] BMI Calculated 2017-04-21 06:49:00 [facility] [place] Weight 2017-04-21 06:49:00 [facility] [place] Respitory Rate 2017-04-19 16:08:00 [facility] Systolic (mm Hg) 2017-04-19 15:19:00 [facility] Diastolic (mm Hg) 2017-04-19 15:19:00 [facility] [place] Respitory Rate 2017-04-19 15:19:00 [facility] Temperature Oral (F) 2017-04-19 15:19:00 98.9 F [facility] Heart Rate 2017-04-19 15:19:00 [facility] [place] Temperature Oral (F) 2017-04-19 12:04:00 98.3 F [facility] Respitory Rate 2017-04-19 12:04:00 [facility] Heart Rate 2017-04-19 12:04:00 [facility] [place] Systolic (mm Hg) 2017-04-19 12:04:00 [facility] [place] Diastolic (mm Hg) 2017-04-19 12:04:00 [facility] Heart Rate 2017-04-19 08:39:00 [facility] [place] Temperature Oral (F) 2017-04-19 08:39:00 98.6 F [facility] [place] Systolic (mm Hg) 2017-04-19 08:39:00 [facility] [place] Diastolic (mm Hg) 2017-04-19 08:39:00 [facility] [place] BMI Calculated 2017-04-18 18:56:00 [facility] [place] Weight 2017-04-18 18:56:00 [facility] Height 2017-04-18 18:56:00 165.1 cm [facility] Heart Rate 2016-08-27 21:32:00 [facility] [place] Systolic (mm Hg) 2016-08-27 21:32:00 [facility] [place] Diastolic (mm Hg) 2016-08-27 21:32:00 [facility] Respitory Rate 2016-08-27 21:32:00 [facility] Temperature Oral (F) 2016-08-27 21:32:00 98.8 F [facility] Heart Rate 2016-08-27 19:15:00 [facility] Respitory Rate 2016-08-27 19:15:00 [facility] Temperature Oral (F) 2016-08-27 19:15:00 99.0 F [facility] Systolic (mm Hg) 2016-08-27 19:15:00 [facility] [place] Diastolic (mm Hg) 2016-08-27 19:15:00 [facility] [place] Weight 2016-08-27 19:15:00 [facility] [place] Systolic (mm Hg) 2016-07-30 18:12:00 [facility] Diastolic (mm Hg) 2016-07-30 18:12:00 [facility] [place] Respitory Rate 2016-07-30 18:12:00 [facility] [place] Heart Rate 2016-07-30 18:12:00 [facility] Temperature Oral (F) 2016-07-30 18:12:00 98.6 F [facility] Respitory Rate 2016-07-30 14:57:00 [facility] Systolic (mm Hg) 2016-07-30 14:57:00 [facility] Diastolic (mm Hg) 2016-07-30 14:57:00 [facility] [place] Heart Rate 2016-07-30 14:57:00 [facility] Temperature Oral (F) 2016-07-30 14:57:00 98.9 F [facility] [place] Systolic (mm Hg) 2016-07-30 10:00:00 [facility] Diastolic (mm Hg) 2016-07-30 10:00:00 [facility] Respitory Rate 2016-07-30 10:00:00 [facility] [place] Heart Rate 2016-07-30 10:00:00 [facility] [place] Temperature Oral (F) 2016-07-30 10:00:00 97.5 F [facility] [place] Weight 2016-07-27 17:13:00 [facility] BMI Calculated 2016-07-27 17:13:00 [facility] [place] Height 2016-07-27 17:13:00 165.1 cm [facility] [place] Systolic (mm Hg) 2016-03-07 22:33:00 [facility] Diastolic (mm Hg) 2016-03-07 22:33:00 [facility] Heart Rate 2016-03-07 22:33:00 [facility] Temperature Oral (F) 2016-03-07 22:33:00 98.8 F [facility] [place] Respitory Rate 2016-03-07 22:33:00 [facility] [place] Systolic (mm Hg) 2016-03-07 19:17:00 [facility] Diastolic (mm Hg) 2016-03-07 19:17:00 [facility] Respitory Rate 2016-03-07 19:17:00 [facility] Temperature Oral (F) 2016-03-07 19:17:00 99.1 F [facility] Heart Rate 2016-03-07 19:17:00 [facility] BMI Calculated 2016-03-07 17:40:00 [facility] [place] Height 2016-03-07 17:40:00 165.1 cm [facility] [place] Weight 2016-03-07 17:40:00 [facility] Heart Rate 2016-03-07 17:40:00 [facility] Respitory Rate 2016-03-07 17:40:00 [facility] [place] Temperature Oral (F) 2016-03-07 17:40:00 98.5 F [facility] Systolic (mm Hg) 2016-03-07 17:40:00 [facility] Diastolic (mm Hg) 2016-03-07 17:40:00 [facility] Heart Rate 2016-02-18 21:51:00 [facility] [place] Respitory Rate 2016-02-18 21:51:00 [facility] Temperature Oral (F) 2016-02-18 21:51:00 98.1 F [facility] Systolic (mm Hg) 2016-02-18 21:51:00 [facility] [place] Diastolic (mm Hg) 2016-02-18 21:51:00 [facility] Heart Rate 2016-02-18 20:44:00 [facility] [place] Systolic (mm Hg) 2016-02-18 20:44:00 [facility] [place] Diastolic (mm Hg) 2016-02-18 20:44:00 [facility] Respitory Rate 2016-02-18 20:44:00 [facility] [place] Temperature Oral (F) 2016-02-18 20:44:00 98.2 F [facility] Systolic (mm Hg) 2016-02-18 17:22:00 [facility] Diastolic (mm Hg) 2016-02-18 17:22:00 [facility] [place] Heart Rate 2016-02-18 17:22:00 [facility] Respitory Rate 2016-02-18 17:22:00 [facility] [place] Height 2016-02-18 16:37:00 177.8 cm [facility] [place] BMI Calculated 2016-02-18 16:37:00 [facility] [place] Weight 2016-02-18 16:37:00 [facility] Temperature Oral (F) 2016-02-18 16:37:00 98.5 F [facility] [place] Systolic (mm Hg) 2014-11-22 18:01:00 [facility] Diastolic (mm Hg) 2014-11-22 18:01:00 [facility] [place] Heart Rate 2014-11-22 18:01:00 [facility] Respitory Rate 2014-11-22 18:01:00 [facility] [place] Weight 2014-11-22 16:06:00 [facility] BMI Calculated 2014-11-22 16:06:00 [facility] [place] Height 2014-11-22 16:06:00 165.1 cm [facility] Heart Rate 2014-11-22 16:06:00 [facility] Systolic (mm Hg) 2014-11-22 16:06:00 [facility] [place] Diastolic (mm Hg) 2014-11-22 16:06:00 [facility] [place] Temperature Oral (F) 2014-11-22 16:06:00 98.5 F [facility] Respitory Rate 2014-11-22 16:06:00 [facility] Respitory Rate 2014-08-18 01:58:00 [facility] [place] Respitory Rate 2014-08-18 00:51:00 [facility] Temperature Oral (F) 2014-08-18 00:51:00 97.5 F [facility] [place] Systolic (mm Hg) 2014-08-18 00:51:00 [facility] [place] Diastolic (mm Hg) 2014-08-18 00:51:00 [facility] [place] Heart Rate 2014-08-18 00:51:00 [facility] Heart Rate 2014-08-17 19:30:00 [facility] [place] Heart Rate 2014-08-17 17:18:00 [facility] Systolic (mm Hg) 2014-08-17 17:18:00 [facility] [place] Diastolic (mm Hg) 2014-08-17 17:18:00 [facility] Respitory Rate 2014-08-17 13:51:00 [facility] Temperature Oral (F) 2014-08-17 13:18:00 98.3 F [facility] Systolic (mm Hg) 2014-08-17 13:18:00 [facility] Diastolic (mm Hg) 2014-08-17 13:18:00 [facility] Temperature Oral (F) 2014-08-17 06:02:00 98.4 F [facility] BMI Calculated 2014-08-14 21:38:00 [facility] Weight 2014-08-14 21:38:00 [facility] Height 2014-08-14 21:38:00 165.1 cm [facility] Weight 2014-08-14 21:36:00 [facility] BMI Calculated 2014-08-14 21:36:00 [facility] [place] Height 2014-08-14 21:36:00 165.1 cm [facility] [place] Weight 2014-08-14 13:19:00 [facility] [place] BMI Calculated 2014-08-14 13:19:00 [facility] Height 2014-08-14 13:19:00 165.1 cm [facility] Diastolic (mm Hg) 2014-05-13 13:00:00 [facility] Systolic (mm Hg) 2014-05-13 13:00:00 [facility] Heart Rate 2014-05-13 13:00:00 [facility] [place] Respitory Rate 2014-05-13 13:00:00 [facility] [place] Temperature Oral (F) 2014-05-13 13:00:00 98.6 F [facility] Temperature Oral (F) 2014-05-13 09:32:00 98.5 F [facility] [place] Respitory Rate 2014-05-13 09:32:00 [facility] Systolic (mm Hg) 2014-05-13 09:32:00 [facility] Heart Rate 2014-05-13 09:32:00 [facility] [place] Diastolic (mm Hg) 2014-05-13 09:32:00 [facility] [place] Temperature Oral (F) 2014-05-13 04:06:00 98.7 F [facility] Diastolic (mm Hg) 2014-05-13 04:06:00 [facility] [place] Respitory Rate 2014-05-13 04:06:00 [facility] [place] Heart Rate 2014-05-13 04:06:00 [facility] Systolic (mm Hg) 2014-05-13 04:06:00 [facility] [place] Weight 2014-05-09 11:38:00 [facility] Height 2014-05-09 11:38:00 165.1 cm [facility] BMI Calculated 2014-05-09 10:42:00 [facility] [place] Weight 2014-05-09 10:42:00 [facility] Height 2014-05-09 10:42:00 165.1 cm [facility] Weight 2014-05-09 07:58:00 [facility] Height 2014-05-09 07:58:00 165.1 cm [facility] BMI Calculated 2014-05-09 07:58:00 [facility] [place] Respitory Rate 2014-05-09 07:20:00 [facility] [place] Heart Rate 2014-05-09 07:20:00 [facility] Diastolic (mm Hg) 2014-05-09 07:20:00 [facility] Systolic (mm Hg) 2014-05-09 07:20:00 [facility] Diastolic (mm Hg) 2014-05-09 05:30:00 [facility] Respitory Rate 2014-05-09 05:30:00 [facility] Systolic (mm Hg) 2014-05-09 05:30:00 [facility] Heart Rate 2014-05-09 05:30:00 [facility] Height 2014-05-08 23:31:00 165.1 cm [facility] Weight 2014-05-08 23:31:00 [facility] [place] BMI Calculated 2014-05-08 23:31:00 [facility] Temperature Oral (F) 2014-05-08 23:31:00 98.6 F [facility] Respitory Rate 2014-05-08 23:31:00 [facility] Systolic (mm Hg) 2014-05-08 23:31:00 [facility] [place] Heart Rate 2014-05-08 23:31:00 [facility] Diastolic (mm Hg) 2014-05-08 23:31:00 [facility] [place] Temperature Oral (F) 2014-02-09 16:00:00 98.0 F [facility] Heart Rate 2014-02-09 16:00:00 [facility] [place] Respitory Rate 2014-02-09 16:00:00 [facility] Systolic (mm Hg) 2014-02-09 16:00:00 [facility] Diastolic (mm Hg) 2014-02-09 16:00:00 [facility] [place] Temperature Oral (F) 2014-02-09 12:00:00 98.6 F [facility] Diastolic (mm Hg) 2014-02-09 12:00:00 [facility] [place] Systolic (mm Hg) 2014-02-09 12:00:00 [facility] Respitory Rate 2014-02-09 12:00:00 [facility] [place] Heart Rate 2014-02-09 12:00:00 [facility] [place] Temperature Oral (F) 2014-02-09 05:00:00 98.6 F [facility] Heart Rate 2014-02-09 05:00:00 [facility] [place] Diastolic (mm Hg) 2014-02-09 05:00:00 [facility] Systolic (mm Hg) 2014-02-09 05:00:00 [facility] [place] Respitory Rate 2014-02-09 05:00:00 [facility] [place] BMI Calculated 2014-02-07 23:12:00 [facility] Height 2014-02-07 23:12:00 165.1 cm [facility] Weight 2014-02-07 23:12:00 [facility] [place] Weight 2014-02-07 20:41:00 [facility] [place] BMI Calculated 2014-02-07 20:41:00 [facility] Height 2014-02-07 20:41:00 165.1 cm [facility] [place] Weight 2014-02-07 12:12:00 [facility] [place] BMI Calculated 2014-02-07 12:12:00 [facility] Height 2014-02-07 12:12:00 165.1 cm [facility] Systolic (mm Hg) 2013-11-29 10:16:00 [facility] Diastolic (mm Hg) 2013-11-29 10:16:00 [facility] [place] Temperature Oral (F) 2013-11-29 10:16:00 98.9 F [facility] [place] Heart Rate 2013-11-29 10:16:00 [facility] Respitory Rate 2013-11-29 10:16:00 [facility] BMI Calculated 2013-11-29 09:01:00 [facility] Weight 2013-11-29 09:01:00 [facility] [place] Height 2013-11-29 09:01:00 165.1 cm [facility] [place] Respitory Rate 2013-11-29 09:01:00 [facility] [place] Temperature Oral (F) 2013-11-29 09:01:00 99.1 F [facility] [place] Heart Rate 2013-11-29 09:01:00 [facility] Diastolic (mm Hg) 2013-11-29 09:01:00 [facility] [place] Systolic (mm Hg) 2013-11-29 09:01:00 [facility] [place] Systolic (mm Hg) 2013-07-21 18:00:00 [facility] Temperature Oral (F) 2013-07-21 18:00:00 98.5 F [facility] [place] Heart Rate 2013-07-21 18:00:00 [facility] [place] Respitory Rate 2013-07-21 18:00:00 [facility] [place] Diastolic (mm Hg) 2013-07-21 18:00:00 [facility] [place] Respitory Rate 2013-07-21 14:00:00 [facility] [place] Heart Rate 2013-07-21 14:00:00 [facility] Temperature Oral (F) 2013-07-21 14:00:00 99.5 F [facility] [place] Diastolic (mm Hg) 2013-07-21 14:00:00 [facility] Systolic (mm Hg) 2013-07-21 14:00:00 [facility] Temperature Oral (F) 2013-07-21 06:24:00 97.9 F [facility] [place] Heart Rate 2013-07-21 06:24:00 [facility] [place] Respitory Rate 2013-07-21 06:24:00 [facility] Systolic (mm Hg) 2013-07-21 06:24:00 [facility] Diastolic (mm Hg) 2013-07-21 06:24:00 [facility] Height 2013-07-20 07:30:00 165.1 cm [facility] [place] Weight 2013-07-19 08:35:00 [facility] [place] Height 2013-07-19 08:35:00 [facility] 2013-07-18 17:58:00 165.1 [facility] Weight 2013-07-18 17:58:00 [facility] Procedures Procedure Date / Time Performed Performing Clinician [facility] X-RAY OF FINGER(S) 2+ 2017-10-08 00:00:00 [facility] MRI of brain and brain 2016-07-29 06:00:00 Dory Mcgraw stem Angioplasty of blood [facility] vessel Hand repair [facility] Hand Surgery [facility] Plan of Care Planned Activity Planned Date Details Comments Source Instructions [facility] Instructions [facility] Encounters Start End Encounter Admission Attending Care Care Encounter Source Date/Time Date/Time Type Type Clinicians Facility Department ID 2017-11-04 2017-11-05 Outpatient MHMISCHER MISCHER [id number] 15:53:00 23:59:59 07 2017-10-19 2017-10-19 Gray Thorne [facility] [place] - [id number] [facility] 00:00:00 00:00:00 MD Aaron: [facility] Famil y [address] [place], Practice - [address], [place] [address] , Ph. 2017-10-08 2017-10-08 Carolina [facility] [place] - [id number] [facility] 00:00:00 00:00:00 [facility] Nayanajusd, Family Sergio ALDANA: [address], [place], [place] [address] , Ph. 2017-08-25 2017-08-25 Gray Thorne [facility] [place] - [id number] [address] [place] [address] 00:00:00 00:00:00 MD Aaron: [facility] Famil y [address] [place], Practice - [address], [place] [phone] , Ph. 2017-04-21 2017-04-21 Outpatient Jaskraan Yi [facility] [id number] 01:46:00 02:21:00 Jame 12 2017-04-18 2017-04-19 Outpatient Jose [facility] [place] [id number] 13:52:00 10:56:00 Quratulain 11 Ani 2017-02-09 2017-02-09 Outpatient [facility] MHR [id number] 12:02:00 23:59:00 92 2016-08-27 2016-08-27 Outpatient Jim Trujillo [facility] MHR [id number] 13:00:00 15:43:00 Kanuon 10 2016-07-10 2016-08-08 Outpatient Gege Randle, [id number]. [id number] 11:10:00 23:59:00 Norman Robby [id number] 5.46 2016-07-27 2016-07-30 Outpatient Red, MHGHR MHGHR [id number] 11:11:00 15:59:00 Khris 08 Tiara K 2016-05-26 2016-06-24 Outpatient Gege Randle, 2.16.840. [id number]. [id number] 11:47:00 23:59:00 Norman Bustamante [id number] 5.46 2016-03-07 2016-03-07 [id number] 12:37:00 17:38:00 Phil 07 2016-02-18 2016-02-18 [facility] [id number] 11:28:00 16:50:00 Jeny 06 2014-11-22 2014-11-22 Outpatient Steven, HS HS [id number] 10:57:00 13:10:00 Kristen Bustamante 05 2014-08-14 2014-08-17 Outpatient Obi, HS HS [id number] 07:18:00 20:44:00 Abilio 04 Alessandro 2014-05-09 2014-05-13 Outpatient Vlad, HS HS [id number] 02:58:00 14:05:00 Radha Coates 2014-05-08 2014-05-09 [facility] [id number] 18:15:00 03:03:00 Jame 03 2014-02-07 2014-02-09 Outpatient Lacy [facility] [id number] 07:11:00 15:01:00 Yady wilkinson 2013-11-29 2013-11-29 Outpatient Cliff Oleary [facility] [id number] 03:59:00 05:18:00 Steve 2013-07-18 2013-07-21 Outpatient [facility] [id number] Memoria 11:14:00 17:02:00 Lucien Mcgraw l [facility] Results Test Description Test Time Test Comments [...] (test code = PT) 14.0 s 12.0-14.7 [facility] AhamovhMZXXXOBGES8338-75-26 10:10:00 Test Item Value Reference Range Interpretation Comments PTT (test code = PTT) 31.1 s 22.9-35.8 [facility] PvqvcqmMRRNVNXVOO7723-92-19 10:10:62117Raqavyqt HermannHEMATOLOGY 2017-04-19 10:10:004.55[facility] QnrseeaJEAIYNJQTD0723-33-59 10:10:0084.4[facility] UshqvsoGICBZIWXCI9292-80-10 10:10:0014.6[facility] JlivesuTEGCWFKOGK4709-89-52 10:10:00 Test Item Value Reference Range Interpretation Comments MCH (test code = MCH) 28.0 pg 27.0-31.0 [facility] YnblajxKGPLVAHIOO2109-36-33 10:10:0033.2[facility] HermannHEMATOLOGY 2017-04-19 10:10:005.9[facility] PfdxuyyHBWMXIKMEM4068-85-71 10:10:0038.4[facility] KgvoqbvWVWLJWPUHV8504-78-20 10:10:0012.8[facility] GjwrwcvRYAMZLDITO4418-52-74 10:10:008.2[facility] HermannANEMIA TTPMM2182-05-45 22:50:48889Kdceybfv [place] ANEMIA OALIY8456-45-72 22:50:3218.6[facility] IzaxsvcKJDJIQ9937-91-26 22:50:3213 [facility] RmejpenHWHAWR4408-70-06 22:50:3257[facility] YctmdpbMTRLMS9289-52-80 22:50:323.80[facility] WewrnrzOBPVFE7289-39-72 22:50:3295[facility] HermannLIPIDS 2017-04-18 22:50:3225[facility] JgtwxltUVVDXP7576-05-88 22:50:3263[facility] [place] SPECIAL BSDMIBPED2243-06-21 22:50:326.2[facility] HermannCARDIAC WDGGYGM7921-19-96 21:20:00<0.02[facility] HermannCARDIAC UIRTEIY1575-21-67 21:20:82832Ysofhsib HermannCARDIAC OJGRYOM3480-07-46 21:20:001.2[facility] HermannCARDIAC ENZYMES 2017-04-18 21:20:000.5[facility] HermannCHEM QPUKV4354-11-42 21:20:18160Eytulcvn HermannCHEM SOSHS2618-80-61 21:20:004.0[facility] HermannCHEM CFJTA1072-63-63 21:20:0010[facility] HermannCHEM HKGUS1175-70-76 21:20:000.9[facility] HermannCHEM VMVLR6236-06-07 21:20:008.7[facility] HermannCHEM CONXU3784-42-48 21:20:0026 [facility] HermannCHEM YXAAI5251-37-62 21:20:85642Onsniyws HermannCHEM PANEL 2017-04-18 21:20:0030[facility] HermannCHEM JYVOI9647-11-84 21:20:003.7[facility] HermannCHEM MRAEX9268-56-24 21:20:007.7[facility] HermannCHEM KQMFS9905-20-47 21:20:000.4[facility] HermannCHEM AUMXM6986-60-41 21:20:0069[facility] HermannCHEM DJGNW5941-45-17 21:20:0029[facility] HermannCHEM TYBEA1117-52-84 21:20:0010.0 [facility] HermannCHEM YSBZJ3609-95-45 21:20:007[facility] HermannCHEM PANEL 2017-04-18 21:20:0092[facility] HermannCHEM XLDKZ9454-77-78 21:20:58725Abvlddgi HermannCHEM RYDOU7767-35-99 21:20:004.0[facility] HermannCHEM CHRMG6945-76-39 21:20:000.67[facility] AjivbvcIDEWCALBRR5892-74-70 21:20:00 Test Item Value Reference Range Interpretation Comments PTT (test code = PTT) 31.8 s 22.9-35.8 [facility] EnbdagcEGIJRCUWGE2495-88-01 21:20:008.6[facility] HermannHEMATOLOGY 2017-04-18 21:20:0014.8[facility] RejawuqULMIPLWPJW1580-46-88 21:20:0039.8[facility] OkzozfkCLBRVCPDQQ0796-96-91 21:20:0033.7[facility] ZusdtpbNCNCOXQGMJ4593-03-02 21:20:0083.2[facility] OkwddqeKLCPXIKCNL5236-93-23 21:20:00 Test Item Value Reference Range Interpretation Comments MCH (test code = MCH) 28.0 pg 27.0-31.0 [facility] CgvmimdXKOOCJRPDA7000-40-61 21:20:0013.4[facility] HermannHEMATOLOGY 2017-04-18 21:20:006.6[facility] DlordcrLFZWBJNCVD8818-28-39 21:20:004.79[facility] FzyqxkbDDELQBHLTO2468-53-49 21:20:08283Iprnuwwo ZjzsimvUFIVDNQVSP0400-23-95 21:20:001.00[facility] YqcodqgATIAEGOZCE4141-17-70 21:20:00 Test Item Value Reference Range Interpretation Comments PT (test code = PT) 13.4 s 12.0-14.7 [facility] KgjmquqKZIPCEVPHC3651-05-67 21:20:000.7[facility] HermannHEMATOLOGY 2017-04-18 21:20:001.3[facility] EtjoclkWYWZXESVKQ0423-73-09 21:20:000.2[facility] OylltteNRFNCEFQSE6079-44-23 21:20:003.0[facility] EhwnzgyOFENCQNCXM9333-67-62 21:20:0011.3[facility] AmwykhvOMHWDXMSXQ9015-57-12 21:20:004.3[facility] EBIAFATSSW4925-93-93 21:20:000.5[facility] HhcvpjxSCHPBHWJZX0069-31-11 21:20:00 65.4[facility] EhqbhjwRGAJFGKSAX2978-32-64 21:20:0019.8[facility] HermannURINE AND ANWCU4678-57-51 21:20:00Negative (04/18/17 4:20 PM)[facility] AND BNIIR3226-83-28 21:20:00Negative *NA*(04/18/17 4:20 PM)[facility] AND ZKEIQ1364-52-11 21:20:00Negative (04/18/17 4:20 PM)[facility] AND KQKFM3727-00-27 21:20:00Small *ABN*(04/18/17 4:20 PM)[facility] AND FDQCA5198-33-53 21:20:00Light Yellow *NA*(04/18/17 4:20 PM)[facility] AND NNECS6764-71-68 21:20:006.0[facility]annUR[facility] AND TJPBG1625-29-20 21:20:001.009[facility]UR[facility] AND LSTPW8226-74-20 21:20:00Clear (04/18/17 4:20 PM)[facility] AND OTZCY3987-17-05 21:20:004[facility]annUR[facility] AND LJLHD7486-23-76 21:20:006[facility] HermannCARDIAC LKJUFZL6345-70-95 19:52:00 2.0[facility] HermannCARDIAC YUDOBYS1894-37-66 19:52:00<0.02[facility] [place] CARDIAC DPQKZOA3225-09-66 19:52:46014Xzimjgtn HermannCARDIAC XVUCJHG2699-98-51 19:52:000.6[facility] HermannCHEM OIPTT1897-28-49 19:52:001.2[facility] HermannCHEM KXFUQ0610-09-08 19:52:003.4[facility] HermannCHEM ZQDMT5733-78-93 19:52:0014 [facility] HermannCHEM YAFDQ6516-08-35 19:52:38444Loglvjbv HermannCHEM PANEL 2016-08-27 19:52:96485Vcspzwli HermannCHEM IIOEM2333-30-84 19:52:008.3[facility] HermannCHEM FQCIV5360-65-50 19:52:0030[facility] HermannCHEM YLOYX9999-75-70 19:52:004.0[facility] HermannCHEM BBCPE2502-17-17 19:52:007.4[facility] HermannCHEM KSCIG2814-87-58 19:52:000.4[facility] HermannCHEM EJUEV5502-38-95 19:52:0071 [facility] HermannCHEM ZUSCX7522-85-50 19:52:009.7[facility] HermannCHEM PANEL 2016-08-27 19:52:0022[facility] HermannCHEM HYXEI3703-29-79 19:52:0018[facility] HermannCHEM WKVXP6136-85-34 19:52:0097[facility] HermannCHEM NADSU0547-89-20 19:52:0012[facility] HermannCHEM OWBOB6337-20-77 19:52:000.84[facility] HermannCHEM CINUI9957-84-79 19:52:49902Ieaofdfp HermannCHEM IQIVB1752-47-58 19:52:003.7 [facility] HermannDRUG PPSXMI9265-57-70 19:52:00See Note *NA*(08/27/16 1:52 PM) [facility]annDR[facility] ZECHZA3868-02-60 19:52:00Negative *NA*(08/27/16 1:52 PM) [facility]annDR[facility] TAKWEC4228-42-61 19:52:00Negative *NA*(08/27/16 1:52 PM) [facility]annDR[facility] TUSNMX0489-80-29 19:52:00Negative *NA*(08/27/16 1:52 PM) [facility]annDR[facility] CKRQZN6477-35-62 19:52:00Negative *NA*(08/27/16 1:52 PM) [facility]annDR[facility] TGTQQM5455-14-66 19:52:00Negative *NA*(08/27/16 1:52 PM) [facility]annDR[facility] NQPWQI5011-16-08 19:52:00Negative *NA*(08/27/16 1:52 PM) [facility]annDR[facility] HFCOKN6447-13-38 19:52:00Negative *NA*(08/27/16 1:52 PM) [facility] HyktlqbREBQNITYJU2605-47-19 19:52:006.3[facility] HermannHEMATOLOGY 2016-08-27 19:52:004.80[facility] RkvqgfeXULLHJPWAO6142-41-93 19:52:0040.2[facility] AjvmnlvSHEDJRCCGH8483-99-92 19:52:0013.4[facility] LsvfpoaZTHWUNOVGS6868-71-50 19:52:0083.9[facility] XazvjnkJBSCDAJIEQ9465-89-77 19:52:0033.4[facility] LUGDUMBQHH1186-31-14 19:52:008.8[facility] WukhwbiZNXKBGNHKR7022-89-63 19:52:71166 [facility] ZtuvomcWEMPLQIRME6896-43-20 19:52:0014.8[facility] HermannHEMATOLOGY 2016-08-27 19:52:00 Test Item Value Reference Range Interpretation Comments MCH (test code = MCH) 28.0 pg 27.0-31.0 [facility] TtvxhpqPPUWCVMGHU4979-32-81 19:52:004.0[facility] HermannHEMATOLOGY 2016-08-27 19:52:001.5[facility] GrhmuwaJPTRLLTHSZ7764-11-46 19:52:000.2[facility] QakqtxtICRUVWXWTX5051-04-00 19:52:000.6[facility] DpupextVUINWJQKQT0291-35-62 19:52:009.1[facility] IsnzsjdSDUZIGGYBP5266-83-37 19:52:000.5[facility] HYEBEHIEVM7764-89-43 19:52:002.5[facility] CkkpkvqZHZLSWFIIQ3032-00-32 19:52:00 24.5[facility] DbdrmgsEUJKZXNBJQ0686-50-88 19:52:0063.4[facility] [id number] 19:52:00Negative (08/27/16 1:52 PM)[facility] [id number] 19:52:002.0[facility] [id number] 19:52:00 Negative (08/27/16 1:52 PM)[facility] [id number] 19:52:00 Negative *NA*(08/27/16 1:52 PM)[facility] [id number] 19:52:00 Negative (08/27/16 1:52 PM)[facility] [id number] 19:52:00 Test Item Value Reference Range Interpretation Comments UA Spec Grav (test code = UA Spec 1.020 1 Grav) [facility] [id number] 19:52:00Yellow *NA*(08/27/16 1:52 PM) [facility] [id number] 19:52:00Clear (08/27/16 1:52 PM) [facility] [id number] 19:52:00 Test Item Value Reference Range Interpretation Comments UA pH (test code = UA pH) 6.5 1 5.0-8.0 [facility] [id number] 19:52:00None Seen (08/27/16 1:52 PM) [facility] HdrbbfxTYDWSDXLLI2911-43-54 22:25:00<0.003[facility]annTOXICOLOGY 2016-07-28 22:25:00<3[facility]DR[facility] [id number] 22:20:00Negative *NA*(07/28/16 4:20 PM)[facility] [id number] 22:20:00Negative *NA*(07/28/16 4:20 PM)[facility] [id number] 22:20:00Negative *NA*(07/28/16 4:20 PM)[facility] [id number] 22:20:00Negative *NA*(07/28/16 4:20 PM)[facility] [id number] 22:20:00Negative *NA*(07/28/16 4:20 PM)[facility] IZGDWM6157-03-28 22:20:00Negative *NA*(07/28/16 4:20 PM)[facility] [id number] 22:20:00Negative *NA*(07/28/16 4:20 PM)[facility] [id number] 22:20:00See Note *NA*(07/28/16 4:20 PM)[facility] [id number] 22:20:00None Seen (07/28/16 4:20 PM)[facility] [id number] 22:20:00None Seen (07/28/16 4:20 PM)[facility] [id number] 22:20:00 Negative (07/28/16 4:20 PM)[facility] [id number] 22:20:00 Negative *NA*(07/28/16 4:20 PM)[facility] [id number] 22:20:00Negative (07/28/16 4:20 PM)[facility] [id number] 22:20:001.0[facility] [id number] 22:20:00Trace *ABN*(07/28/16 4:20 PM)[facility] [id number] 22:20:00 Test Item Value Reference Range Interpretation Comments UA pH (test code = UA pH) 8.0 1 5.0-8.0 [facility] [id number] 22:20:00Trace *ABN*(07/28/16 4:20 PM) [facility] VNAUD4252[facility]24-73 22:20:00Negative (07/28/16 4:20 PM) [facility] JOCMJ6170-91-19 22:20:00Negative (07/28/16 4:20 PM) [facility] LXFHH1252-19-14 22:20:00Yellow *NA*(07/28/16 4:20 PM) [facility] WXAEQ9619-07-48 22:20:00 Test Item Value Reference Range Interpretation Comments UA Spec Grav (test code = UA Spec 1.020 1 Grav) [facility] QWOPS9774-67-24 22:20:00Clear (07/28/16 4:20 PM) [facility] DSTEUWX4683-28-06 17:40:000.4[facility] DFSLJTR4527-89-26 17:40:001.0[facility] TJVXZFI9606-01-75 17:40:00 <0.02[facility] APTGSIB7515-94-29 17:40:81280Rszqtjcm Luc[facility] CHEM WOGSI7949-85-97 17:40:17419Lhaxgoeg HermannCHEM ECVOV9972-77-81 17:40:003.9 [facility]CHE[facility] CROVT0936-40-22 17:40:008.0[facility]annCHEM PANEL 2016-07-27 17:40:0011[facility]annCHE[facility] OAZSW9558-84-77 17:40:25569Uhsgzqqp HermannCHEM ZJAGR0456-02-31 17:40:000.76[facility]CHE[facility] ISDHR6029-17-71 17:40:0093[facility]annCHE[facility] WMXEM4750-59-47 17:40:000.3[facility]annCHE[facility] JRLSU4477-65-88 17:40:0029[facility]annCHE[facility] GWWWZ6709-68-08 17:40:0091 [facility] SFBUQ0880-24-90 17:40:0016.4[facility]annCHE[facility] PANEL 2016-07-27 17:40:0014[facility]CHE[facility] SZMYB1799-83-70 17:40:001.0[facility]annCHE[facility] WKARI4300-70-29 17:40:004.1[facility]annCHE[facility] AOBNM2743-52-73 17:40:008.3[facility]annCHE[facility] DRSHO8417-00-10 17:40:0027[facility]annCHE[facility] BTUKH2093-82-42 17:40:0024[facility]annCHE[facility] WPKLU2460-60-68 17:40:003.4 [facility]CHE[facility] UXLAQ2978-95-28 17:40:72631Eiemiryr HermannHEMATOLOGY 2016-07-27 17:40:0070.6[facility] IsobrdsRAMTBREBJZ5383-29-37 17:40:007.7[facility] QvzroorQVATMAGVVG6779-86-37 17:40:0019.1[facility] PwnwlxnFGIGKBDBZJ2079-30-52 17:40:001.1[facility] QxspstuFZKUKDAKDN2931-35-31 17:40:001.5[facility] GZSBJVPMWL7725-77-18 17:40:000.1[facility] FlttfdeIHCHKTPYXZ1274-89-31 17:40:000.1 [facility] JgmzfnsXEHIYPWLRD8359-54-11 17:40:004.2[facility]annHEMATOLOGY 2016-07-27 17:40:000.5[facility] UkxkqpeAXPOCYPYVK0446-01-75 17:40:001.1[facility] HeexzhtOJECRKHKDS5496-86-57 17:40:00 Test Item Value Reference Range Interpretation Comments PT (test code = PT) 13.6 s 12.0-14.7 [facility] ZylaksxMEEMQIRWZS6201-34-30 17:40:001.02[facility]annHEMATOLOGY 2016-07-27 17:40:00 Test Item Value Reference Range Interpretation Comments PTT (test code = PTT) 28.3 s 22.9-35.8 [facility] EswkjklVZPNKHRVLD7467-07-52 17:40:008.0[facility]annHEMATOLOGY 2016-07-27 17:40:31579Ugyilkhq WgfvdrgFQQIWHEDIS4856-86-56 17:40:0014.5[facility] SbcfpdhUODRFKSAAO3910-81-73 17:40:006.0[facility] YkndtncGKAKGNOZCH4492-26-90 17:40:0084.1[facility] LxtvkmyBDLWPBGLPR6490-66-28 17:40:0042.3[facility] LAGZRPSMRZ3238-00-44 17:40:0014.3[facility] AmknhuhSOUUTQOZYE0332-76-34 17:40:00 5.03[facility] DyndacnIVWWTGWFCY0928-44-33 17:40:00 Test Item Value Reference Range Interpretation Comments MCH (test code = MCH) 28.5 pg 27.0-31.0 [facility] HhxnlffBURLGCGUEQ2628-24-52 17:40:0033.9[facility] HermannLIPIDS 2016-07-27 17:40:005.52[facility] SjsrdemCTANOG5877-53-30 17:40:0023[facility] WvdgtjeDZUQYG8341-12-22 17:40:34699Czdutmfr PhtrjppTISJTK2922-42-74 17:40:46762 [facility] TlwndbzYAHRZY7366-25-47 17:40:0042[facility] XvipcirJMMRLR9888-63-34 17:40:0062[facility]annSPECIAL JWTGWTQKP7253-64-16 17:40:005.9[facility]annCHEM EPPFW0358-31-67 21:19:0077[facility]annCHEM UDOZR4439-88-28 21:19:0030[facility]annCHEM AKMCA8363-72-36 21:19:84721Npiokwyf HermannCHEM DVRDQ6303-50-40 21:19:002.7[facility]annCHEM XLPLQ1874-81-99 21:19:57452 [facility]CHE[facility] GUOIW8068-58-54 21:19:008.1[facility]annCHEM PANEL 2016-03-07 21:19:0011.7[facility]annCHE[facility] POOOH1583-99-07 21:19:007[facility]annCHE[facility] FDQRU1718-11-48 21:19:001.27[facility]annCHE[facility] VIBJG6427-82-29 21:19:85911Yyhkxdfh QhgqwbsCGKQPBIPZWYG8709-41-10 21:19:002.7[facility] DRUG UMRBXR5136-11-19 18:30:00Negative *NA*(03/07/16 1:30 PM)[facility] EEBIUS1624-63-98 18:30:00Negative *NA*(03/07/16 1:30 PM)[facility] KLLWJU1735-74-80 18:30:00Negative *NA*(03/07/16 1:30 PM)[facility] BVCVJX7156-82-47 18:30:00Negative *NA*(03/07/16 1:30 PM)[facility] XCOZFX7016-74-94 18:30:00Negative *NA*(03/07/16 1:30 PM)[facility] CBPDJS2568-79-88 18:30:00Negative *NA*(03/07/16 1:30 PM)[facility] JMVMAS5792-40-25 18:30:00See Note *NA*(03/07/16 1:30 PM)[facility]DR[facility] BYXKDL1291-01-12 18:30:00Negative *NA*(03/07/16 1:30 PM)[facility] DQWYF7063-17-29 18:30:00None Seen (03/07/16 1:30 PM)[facility] BNDZK6321-01-94 18:30:00Performed (03/07/16 1:30 PM)[facility] KYLLO9806-19-52 18:30:00Negative (03/07/16 1:30 PM)[facility] STOOL 2016-03-07 18:30:00Positive *ABN*(03/07/16 1:30 PM)[facility] ST[facility]OL 2016-03-07 18:30:002.0[facility] TDOQX9203-84-56 18:30:00Negative (03/07/16 1:30 PM)[facility] CJSQD3000-67-00 18:30:00Moderate *ABN*(03/07/16 1:30 PM)[facility] SHAAB1902-62-50 18:30:00Negative (03/07/16 1:30 PM)[facility] EGRXE2273-70-86 18:30:00Clear (03/07/16 1:30 PM)[facility] MGLFS8765-20-95 18:30:00 Test Item Value Reference Range Interpretation Comments UA pH (test code = UA pH) 5.5 1 5.0-8.0 [facility] HLKTP9054-14-34 18:30:00>=1.030 *ABN*(03/07/16 1:30 PM)[facility] IFYBVMJ8545-38-53 18:25:000.3[facility] XRIULIH9955-46-22 18:25:001.5[facility]AC WWNGNOZ6175-39-57 18:25:00 501[facility] MUSHEUG2286-15-15 18:25:008[facility] UKDRPEN8500-21-21 18:25:000.06[facility]AC WXTYSTX2540-82-24 18:25:00 7[facility]annCHEM CDSPJ9231-90-72 18:25:000.9[facility]annCHEM PANEL 2016-03-07 18:25:0089[facility]annCHEM GLJHO9920-77-60 18:25:85057Ypvhmszh HermannCHEM TVHAS4958-20-00 18:25:000.9[facility]annCHEM HYHJY5829-93-19 18:25:003.9[facility]annCHE[facility] NDKNK2892-42-22 18:25:0052[facility]annCHE[facility] EXCFE8563-98-75 18:25:003.7[facility]annCHEM NLIXU6878-92-76 18:25:007.6 [facility]CHE[facility] ASFRS8777-40-06 18:25:0013.5[facility]annCHEM PANEL 2016-03-07 18:25:009.1[facility]annCHEM WLMGR6185-93-17 18:25:005[facility]annCHE[facility] RQJYN7285-83-30 18:25:0064[facility]annCHE[facility] WFQTE1083-63-41 18:25:001.47[facility]annCHEM WMTPZ1531-71-30 18:25:47966Hyeuzgqn HermannCHEM OQEGG6509-44-81 18:25:0030[facility]annCHE[facility] UPGBV6890-35-74 18:25:002.5 [facility]CHE[facility] MRAEP9891-71-67 18:25:0099[facility]annCHEM PANEL 2016-03-07 18:25:007[facility]annCHEM JJDDM1900-13-32 18:25:44323Zadkkfxo XaikrxmUOVNBHYXQI4496-91-23 18:25:005.7[facility] LlxaovjSPJPURBIIY3804-06-24 18:25:001.3[facility] QymegjtEHWIGUXNPB7995-56-01 18:25:000.1[facility] NTZGAAAFSG1005-27-51 18:25:000.1[facility] AbiysycKTYAHSDWAE3626-90-65 18:25:000.7 [facility] HyzxamrVMXWUJSSDS5430-82-69 18:25:0070.8[facility]annHEMATOLOGY 2016-03-07 18:25:000.9[facility] OfmsidmOTOAITYZVR1555-18-42 18:25:001.5[facility] BnvakuoYFERNSEXUW5413-56-77 18:25:0010.7[facility] UdhjabaFRITSTOHJL4709-98-67 18:25:0016.3[facility] FyesgteNICKQXUCGJ9348-52-78 18:25:0014.2[facility] UITDHSYECB3297-86-39 18:25:0043.6[facility] LmcjvvoNYCUYRTEOW4127-00-84 18:25:00 32.6[facility] BcasevyBKZXPBZCIO4469-74-04 18:25:0015.1[facility]annHEMATOLOGY 2016-03-07 18:25:0087.6[facility] BrdoezsCAMSFCRNQJ4873-60-80 18:25:00 Test Item Value Reference Range Interpretation Comments MCH (test code = MCH) 28.6 pg 27.0-31.0 [facility] RxwtqwuZHBBTIAGMO3317-62-67 18:25:008.0[facility]annHEMATOLOGY 2016-03-07 18:25:004.97[facility] PpsfwrsAZUOBYADVJ3178-15-89 18:25:99994Qzbpdckp JbkqgjpOAQZEJGQTN3106-54-68 18:25:008.5[facility]annCARDIAC AFBDSNK0238-29-62 17:22:000.7[facility]AC YVQDMKI8625-62-66 17:22:00958Ffbisrlu HermannCARDIAC DXUVRLO1650-80-92 17:22:005.2[facility]annCARD[facility]AC ENZYMES 2016-02-18 17:22:000.02[facility]annCHEM GCSBY1906-50-74 17:22:09070Bdjdkzei HermannCHEM PYYGN3695-13-37 17:22:004.2[facility]annCHEM WWVXN7195-53-43 17:22:006[facility]annCHEM KBXUK7095-10-41 17:22:000.8[facility]annCHEM BPELS4210-71-79 17:22:008.2[facility]annCHEM KMVFI1243-87-82 17:22:75736 [facility]annCHEM GROPE7984-34-65 17:22:0062[facility]annCHEM PANEL 2016-02-18 17:22:0084[facility]annCHEM JJAZP8051-99-67 17:22:005[facility]annCHEM YDTXC8582-71-11 17:22:000.90[facility]annCHEM JMFDL6470-44-68 17:22:0096[facility]annCHEM EPWMK0981-04-87 17:22:06501Dylwktkn HermannCHEM RMZXJ4553-56-14 17:22:004.7[facility]annCHEM CMGMI7772-95-81 17:22:0036 [facility]annCHE[facility] OTPNY4357-70-78 17:22:005.7[facility]annCHEM PANEL 2016-02-18 17:22:99203Phqsyccb HermannCHEM YCJSI7638-72-81 17:22:000.6[facility]annCHEM WNSJR7905-33-19 17:22:007.5[facility]annCHEM INRFZ8290-90-35 17:22:003.3[facility] GfxemdxEGWRYCLKER5832-71-17 17:22:0062.9[facility] CBIXCOOIWZ8172-76-75 17:22:0022.7[facility] EkikgkpOSESGBEHDP7204-15-77 17:22:00 Normal (02/18/16 12:22 PM)[facility] IlusmfoHLVRJCWTZO9394-75-98 17:22:00Normal (02/18/16 12:22 PM)[facility] JuryrycVMMYHOJFSC8789-66-32 17:22:003.9[facility] VfejhhoJCPCNQMQTR0785-64-51 17:22:001.2[facility] FmzdzgdTJMDVCHABC1470-71-09 17:22:002.7[facility] LrxhzhzLBSISCRHZF4259-04-24 17:22:0010.5[facility] [place] SXPDXSXUHF6606-21-94 17:22:000.1[facility] UswvuwkZJXYIFBQIN8507-78-47 17:22:000.6 [facility] WbbneyyZKOANQXBZO5473-82-96 17:22:000.2[facility]annHEMATOLOGY 2016-02-18 17:22:001.4[facility] JjfzxyeGQNSTVHCIB1972-14-29 17:22:006.1[facility] EngkkpbSDTROIXBBT5591-86-49 17:22:0013.0[facility] VkcrqjaUANJEBVARE3392-75-47 17:22:0014.4[facility] JpnuhsyPGUPXPTVPT4201-76-81 17:22:0087.9[facility] IXKYTBBJGE8198-36-51 17:22:0032.8[facility] EshpvduRBPTPEWZQP1834-52-36 17:22:00 39.6[facility] HbfodstLOTFUSMPVW4137-87-56 17:22:004.51[facility]annHEMATOLOGY 2016-02-18 17:22:42892Nagrryar XjuydxeQQQTWVBFBK3803-62-47 17:22:00 Test Item Value Reference Range Interpretation Comments MCH (test code = MCH) 28.9 pg 27.0-31.0 [facility] TvqmkxlBSJBTYACJZ1220-09-23 17:22:009.5[facility] STOOL 2014-11-22 16:38:00Trace *ABN*(11/22/14 11:38 AM)[facility] ST[facility]OL 2014-11-22 16:38:00Negative (11/22/14 11:38 AM)[facility] 2014-11-22 16:38:002.0[facility] HMALZ9111-12-68 16:38:00Negative (11/22/14 11:38 AM)[facility] JGSUG8072-10-35 16:38:00Negative (11/22/14 11:38 AM)[facility] KBUGM8673-70-01 16:38:00Yellow *NA*(11/22/14 11:38 AM)[facility] KFRBN3310-43-35 16:38:00Clear (11/22/14 11:38 AM)[facility] QOSAO1715-54-86 16:38:00Negative (11/22/14 11:38 AM)[facility] LENDF8809-64-74 16:38:00 Test Item Value Reference Range Interpretation Comments UA pH (test code = UA pH) 6.5 1 5.0-8.0 [facility] ZGNNO5997-51-41 16:38:00 Test Item Value Reference Range Interpretation Comments UA Spec Grav (test code = UA Spec 1.025 1 Grav) [facility] YZTAN6270-79-42 16:38:00Small *ABN*(11/22/14 11:38 AM) [facility]annCHEM LFLHL3530-76-60 16:30:0077[facility]annCHEM PANEL 2014-11-22 16:30:01714Rcftjhlk HermannCHEM XZVRS9589-94-99 16:30:000.4[facility]annCHEM GXHCJ3581-57-69 16:30:48000Hlgqgekt HermannCHEM TTRLW6970-22-25 16:30:0083[facility]annCHEM RNPEV3065-18-09 16:30:004.2[facility]annCHEM JEXUZ5832-80-25 16:30:008.5[facility]annCHEM QGGAJ1212-60-58 16:30:009.0 [facility]CHE[facility] GLNFY4541-51-62 16:30:0057[facility]annCHEM PANEL 2014-11-22 16:30:0030[facility]annCHEM PNWHO1765-94-77 16:30:88180Fkksxlmm HermannCHEM URKFI7879-05-32 16:30:003.6[facility]annCHEM EPWNM6840-84-23 16:30:000.9[facility]annCHEM AZOID8191-75-32 16:30:008[facility]annCHEM ABMDO2468-31-45 16:30:21934Knqshhnj HermannCHEM SFWHX2400-55-78 16:30:0086 [facility]annCHE[facility] ZXQIL7702-66-80 16:30:009[facility]annCHEM PANEL 2014-11-22 16:30:004.3[facility]annCHEM PILDP3613-36-95 16:30:001.0[facility]annCHEM MPICM3068-52-69 16:30:009.6[facility] BjpcsjuBBFXZPLNKK7926-63-98 16:30:0033.0[facility] VwyteneQARGBYNVLR4566-90-79 16:30:00 Test Item Value Reference Range Interpretation Comments MCH (test code = MCH) 28.5 pg 27.0-31.0 [facility] GaykljbOSNNTJYIRT9100-04-00 16:30:0086.3[facility]annHEMATOLOGY 2014-11-22 16:30:009.3[facility] XysakiiCTGQYKZOJW0916-65-95 16:30:98326Ywqtzano WmcvsazNJOBEFTVWC3787-72-79 16:30:0015.3[facility] LsqsaegKLMCXNBYIK1432-61-46 16:30:005.09[facility] SmznshsVMIWIWBUUK0033-29-26 16:30:0043.9[facility] [place] KXCMWCXLBJ3891-10-26 16:30:0014.5[facility] GtcxxmmTWBBGPXSWR4703-68-97 16:30:00 8.2[facility] TenddvrGWLQALLGVT1992-30-88 16:30:000.8[facility]annHEMATOLOGY 2014-11-22 16:30:006.0[facility] TwczyhhYUQIAQPCHH3946-41-48 16:30:000.6[facility] CldrsrjBOTSVNWXEB2244-28-47 16:30:001.4[facility] NrsmmlqZBBYJYYQZD6510-60-43 16:30:000.1[facility] AnwxzzhSPCFYIMNCQ4754-06-93 16:30:000.1[facility] PJMRZQTIHK9455-45-00 16:30:007.5[facility] SssfhbpRDSEGXFEZT0512-83-25 16:30:001.5 [facility] AoxhtgdDYZUCBGOQP5021-05-83 16:30:0017.4[facility]annHEMATOLOGY 2014-11-22 16:30:0072.8[facility] HermannCHEM QEDCN8591-17-22 10:42:002.2[facility]annCHEM FRRRH5681-08-03 10:42:000.26[facility]annCHEM BPSQS2625-44-56 10:42:0093[facility]annCHEM JYZLX2971-63-25 10:42:0011[facility]annCHEM XJPZA5527-09-93 10:42:51754Mkkldzax HermannCHEM FGCED1800-04-33 10:42:001.1 [facility]annCHEM KNMQN5891-36-33 10:42:70880Hbvqfcip HermannCHEM PANEL 2014-08-17 10:42:29598Qdhzcrbr HermannCHEM HTVAK1528-89-04 10:42:003.9[facility]annCHEM HQJUS4438-27-31 10:42:0024[facility]annCHEM SIQKZ1485-51-61 10:42:008.4[facility]annCHEM FJKXH2632-89-71 10:42:0012.9[facility]annCHEM JONJE5074-33-96 10:42:003.8[facility] PppkzsoKMBNYEYZOF1033-12-66 10:42:000.1 [facility] KztlmtuXOCNUEGHWD0448-72-63 10:42:000.3[facility]annHEMATOLOGY 2014-08-17 10:42:001.1[facility] TrfqzosSOKNLXEIJL1703-80-03 10:42:001.3[facility] OhhkssoXQUYKEHFBH4452-62-04 10:42:007.3[facility] SxsuwlxZADMBRLIIG2183-15-08 10:42:000.9[facility] AvrhxqgZSKAJBLNSR2822-10-83 10:42:0010.7[facility] MKFRKEKSWP7583-32-38 10:42:0013.2[facility] FrlxzvrYYLVMICEXS0029-09-49 10:42:00 72.5[facility] HwcdsuhSTXOOACKJZ5527-87-32 10:42:002.7[facility] HermannHEMATOLOGY 2014-08-17 10:42:0016.2[facility] WepixliURQQXYRHNO1558-52-65 10:42:84634Ylwjvlqf JltymqpERZDEPMXMR5695-14-24 10:42:009.6[facility] HegzdqeUANBOABTQA3784-02-87 10:42:0034.8[facility] LkqbokoJWRUCVEKJC1457-40-88 10:42:0089.3[facility] ASPMWQMTZO3466-71-53 10:42:00 Test Item Value Reference Range Interpretation Comments MCH (test code = MCH) 29.2 pg 27.0-31.0 [facility] ThvpztpDJFXBDLBYR1965-61-40 10:42:0032.7[facility] HermannHEMATOLOGY 2014-08-17 10:42:0011.4[facility] CreijsyIHXRPPKTKJ2927-70-19 10:42:0010.0[facility] KwofcfgBFDPNRQYVY8351-05-61 10:42:003.89[facility] HermannCARDIAC ENZYMES 2014-08-16 09:57:53356Vexxfqbg HermannCARDIAC KNWUWAI8454-86-39 09:57:000.06 [facility]annCARD[facility]AC BMGUXTT3954-48-60 09:57:99103Jokgqfnk HermannCHEM PANEL 2014-08-16 09:57:002.0[facility] HermannCHEM OZXGH9649-79-22 09:57:002.8[facility] QzxgnzlICFVAMHLFGVD7910-43-34 09:57:0012.6[facility] SxutashOLCJKYBKDFKW1586-56-06 09:57:0093[facility] YgdxrspPCDVZBJOOZWR6575-58-90 09:57:37926Srxoxona Luc[facility] SZDGBWJVYQXA6785-37-95 09:57:001.1[facility] UginrziYRJVYHNACJHD0908-94-70 09:57:0010[facility] JigmgvuMNBTHAHFBGQO1870-24-33 09:57:0024[facility] [place] LDFZSRWDDCSL2785-41-87 09:57:27611Aypmvdrd RresxrsICQEKKPCYFYW2794-90-97 09:57:77144Hbtdxnyw QpvknvlFRRVTMLHMMPC2309-55-91 09:57:003.6[facility] SCAFEYQUQOIB0401-96-72 09:57:008.3[facility] AujyiieQMHBIIRMYO1324-37-59 09:57:00 8.0[facility] MaavudeVXQFDJJSIW4372-61-24 09:57:0081.9[facility] HermannHEMATOLOGY 2014-08-16 09:57:000.6[facility] BieooknWWVPORAXMY4531-66-51 09:57:008.7[facility] FmnymixUUCUZHEEEY0759-91-97 09:57:000.1[facility] YvicrrpCBODQEDAIP8218-01-60 09:57:000.1[facility] AfwnnqxPDNPUQPUDV3090-35-36 09:57:0012.1[facility] CLPUDWFLFU3382-48-72 09:57:000.8[facility] OmuyydgCYHXUMDDVY7991-40-80 09:57:001.2 [facility] MxxcselPEZOCARYVX7644-42-84 09:57:001.3[facility] HermannHEMATOLOGY 2014-08-16 09:57:0014.8[facility] EpdavgvXWQLWXCYDW3843-68-77 09:57:72012Ojjmiqnm GfjunqvHHKLDMQHRS6173-27-79 09:57:0016.2[facility] MyvckqySMCVJQDILT7469-57-24 09:57:00 Test Item Value Reference Range Interpretation Comments MCH (test code = MCH) 28.3 pg 27.0-31.0 [facility] TljvirkZRWZQIKBSV7403-16-40 09:57:0031.7[facility] HermannHEMATOLOGY 2014-08-16 09:57:009.4[facility] NocxxfjHBESTHQREF8279-08-05 09:57:0039.5[facility] ZersjguDDCNWZKJIG1515-00-19 09:57:0089.1[facility] YcbmhiiZRYXBOYVOL5500-32-84 09:57:0012.6[facility] AfbtfocVRMJJFBZQZ5618-73-11 09:57:004.44[facility] MOLECULAR WTESYSVKMP7644-66-54 05:56:00Negative 12(08/15/14 11:56 PM)[facility]annMOLECULAR BVBADRCMMF6108-48-40 05:56:00Flocked CHILDREN LIBRARIAN Swab (08/15/14 11:56 PM) [facility]annMOLECULAR JCXRGPRGRU7240-07-12 05:56:00Negative (08/15/14 11:56 PM)[facility]annMOLECULAR IIYEPFSVCF3596-63-96 05:56:00Flocked CHILDREN LIBRARIAN Swab (08/15/14 11:56 PM)[facility]annMOLECULAR BOLDLVIEKE1623-33-77 05:56:00 Negative (08/15/14 11:56 PM)[facility]annMOLECULAR YLMTDAGYYC6875-79-28 05:56:00Negative 13(08/15/14 11:56 PM)[facility]annMOLECULAR DIAGNOSTIC 2014-08-16 05:56:00Flocked CHILDREN LIBRARIAN Swab (08/15/14 11:56 PM)[facility]annMOLECULAR CQZFSCVTKN1607-52-38 05:56:00Negative 14(08/15/14 11:56 PM)[facility] MOLECULAR NOYTYCTJNN3242-56-55 05:56:00Negative (08/15/14 11:56 PM)[facility]annMOLECULAR IWYHWWKJKI1102-19-83 05:56:00Negative (08/15/14 11:56 PM) [facility]annCARDIAC YTYZCWV9474-07-74 22:15:08231Wobpgvcx HermannCARDIAC EHCZCFU9022-00-56 22:15:000.04[facility]annCHEM WOUXM6008-82-12 22:15:001.8 [facility]CHE[facility] UPRSU8272-21-25 22:15:001.9[facility]annCHEM PANEL 2014-08-15 22:15:0093[facility]annCHEM USTAA0436-77-32 22:15:0096[facility]annCHEM FUBIE0514-24-46 22:15:0012[facility]annCHEM REKBU3340-08-33 22:15:0022[facility]annCHEM FQZGV4629-75-18 22:15:003.7[facility]annCHEM ZAGJE3203-93-83 22:15:46335Gqmfsdff HermannCHEM PWSBR1452-01-83 22:15:001.1 [facility]annCHEM ZSMOZ0802-85-08 22:15:79384Etcinpxl HermannCHEM PANEL 2014-08-15 22:15:008.5[facility]annCHEM VJINM8527-89-49 22:15:0013.7[facility] CjqhlqhUZAJUWOQNF2534-06-93 22:15:000.2[facility] DsjruyyHTRGKLTYDP5980-09-97 22:15:001.4[facility] FsoczjfOHOZSAXBAI1711-17-00 22:15:001.1[facility] NGJKKAFVMJ7923-69-27 22:15:007.5[facility] ByxjzbkHPQQVUBKMT0680-43-42 22:15:001.1 [facility] JluufxyWDBJMRNGHC6350-95-91 22:15:000.2[facility]annHEMATOLOGY 2014-08-15 22:15:001.2[facility] QtcmsnbXEXLHUUSJY7066-45-84 22:15:008.6[facility] XynddosEAHEAXIJVU9471-42-50 22:15:0081.4[facility] TtdvxacPEHDHWIOLN9775-08-41 22:15:0011.4[facility] PthgxzlPRBXWPPBIU2182-90-57 22:15:40848Ofxotlpj Lucien NVBXEQPPEI9536-01-42 22:15:0016.4[facility] YacfvzxQSVNGCJLNU6194-49-72 22:15:00 9.4[facility] DtcdlvjLKJTUXWCJX6052-22-31 22:15:0031.1[facility]annHEMATOLOGY 2014-08-15 22:15:00 Test Item Value Reference Range Interpretation Comments MCH (test code = MCH) 27.8 pg 27.0-31.0 [facility] YddeediXDKOXRHNST3239-38-40 22:15:004.61[facility]annHEMATOLOGY 2014-08-15 22:15:0014.1[facility] UoiabihSCTKEMDRYM4640-01-61 22:15:0089.2[facility] NkzoiyfQSRKDRPFQU9886-72-49 22:15:0041.1[facility] PgobcdoMWKKGWQOFE9722-42-96 22:15:0012.8[facility]annCARDIAC YSNEGSO4035-87-77 17:55:87945Ekcwegin HermannCARDIAC MGAUFIQ0092-19-96 17:55:000.04[facility]annDRUG SCREEN 2014-08-15 10:00:00Negative *NA*(08/15/14 4:00 AM)[facility] SCREEN 2014-08-15 10:00:00Negative *NA*(08/15/14 4:00 AM)[facility]CREEN 2014-08-15 10:00:00Negative *NA*(08/15/14 4:00 AM)[facility] SCREEN 2014-08-15 10:00:00Negative *NA*(08/15/14 4:00 AM)[facility]CREEN 2014-08-15 10:00:00See Note 9*NA*(08/15/14 4:00 AM)[facility]CREEN 2014-08-15 10:00:00Negative *NA*(08/15/14 4:00 AM)[facility]CREEN 2014-08-15 10:00:00Negative *NA*(08/15/14 4:00 AM)[facility]DR[facility] SCREEN 2014-08-15 10:00:00Negative *NA*(08/15/14 4:00 AM)[facility]annBACTERIAL - VUYCFFFK7901-52-99 15:57:31Negative (08/14/14 9:57 AM)[facility] AND SGJNB6047-89-45 15:25:00Negative (08/14/14 9:25 AM)[facility] UCXSV4790-96-65 15:25:00Negative (08/14/14 9:25 AM)[facility] MKIKL3646-53-68 15:25:00 Test Item Value Reference Range Interpretation Comments UA Spec Grav (test code = UA Spec 1.025 1 Grav) [facility] ZTBJI5551-44-98 15:25:00Clear (08/14/14 9:25 AM) [facility] GFSXB6727-84-73 15:25:00 Test Item Value Reference Range Interpretation Comments UA pH (test code = UA pH) 6.0 1 5.0-8.0 [facility] CXGBN3178-51-39 15:25:00Yellow *NA*(08/14/14 9:25 AM) [facility] UIWXL5486-39-49 15:25:00Negative *NA*(08/14/14 9:25 AM) [facility] MUOTH9902-02-18 15:25:00Negative (08/14/14 9:25 AM) [facility] YESHK5772-44-88 15:25:001.0[facility] PMCDF5817-78-66 15:25:00Negative (08/14/14 9:25 AM)[facility] XHKRS4763-44-13 15:25:00None Seen (08/14/14 9:25 AM)[facility] XKAFJ7049-95-22 15:25:00None Seen (08/14/14 9:25 AM)[facility] DBJTP2899-12-07 15:25:00None Seen (08/14/14 9:25 AM)[facility]annCARDIAC CURSUOL0003-13-15 14:49:0094[facility]annCARDIAC OLIXIVL7814-54-81 14:49:00 5.6[facility]annCARDIAC PLDQCWW3157-33-81 14:49:000.8[facility]annCHEM WPSKP5867-01-86 14:49:001.0[facility]annCHEM ABNCB5168-17-00 14:49:003.7 [facility]annCHEM EEKNH9277-27-44 14:49:000.8[facility]annCHEM PANEL 2014-08-14 14:49:008[facility]annCHEM JNNRK6601-38-19 14:49:007.5[facility]annCHEM XMKNL4453-63-73 14:49:003.8[facility]annCHEM ZJNGA5330-32-14 14:49:74549Jjszchov HermannCHEM XQNTU6635-58-49 14:49:0033[facility]annCHEM DXDLP7291-78-03 14:49:0027[facility]annCHEM UIABV5917-61-61 14:49:001.2 [facility]annCHEM WPUOH4398-99-69 14:49:000.05[facility]annHEMATOLOGY 2014-08-14 14:49:001.01[facility] IptzmnxUXSRYNEIUI3785-89-16 14:49:00 Test Item Value Reference Range Interpretation Comments PTT (test code = PTT) 31.0 s 22.9-35.8 [facility] AbdilzzGFOXDZNPXY4742-67-41 14:49:00 Test Item Value Reference Range Interpretation Comments PT (test code = PT) 13.3 s 12.0-14.7 [facility] PumfkulCOQDKMQRUY8682-15-71 14:49:001+ *ABN*(08/14/14 8:49 AM)[facility] TmapdktQPBSYSOOMG8968-14-87 14:49:00Normal (08/14/14 8:49 AM)[facility] VIRAL - RXLWDTDN2148-78-36 14:49:00Negative (08/14/14 8:49 AM)[facility] VIRAL - HVVIOACJ3084-65-04 14:49:00Negative 15(08/14/14 8:49 AM)[facility] CHEM YWSXO8213-29-87 09:38:002.1[facility]annCHEM FOAGJ9240-88-81 09:38:004.9 [facility]annCHEM EKVUK7908-26-18 09:38:23679Tawcojig HermannCHEM PANEL 2014-05-13 09:38:0023[facility]annCHEM LSMKE9597-84-34 09:38:009.4[facility]annCHEM RQTHW8825-34-51 09:38:004.9[facility]annCHEM CIQKV0859-89-55 09:38:34841Kphsfnaw HermannCHEM RCMXJ5304-78-72 09:38:0083[facility]annCHEM HUNYB4745-71-30 09:38:000.8[facility]annCHEM NEAKL4318-38-70 09:38:0011 [facility]annCHEM GZAZD6856-09-83 09:38:15064Dzjqexmn HermannCHEM PANEL 2014-05-13 09:38:0016.9[facility] KvqtvzxQXLBCVFLOV9728-74-34 09:38:000.3[facility] BiafeycLMYXTPIDNW7759-34-50 09:38:001.3[facility] NwcfocqHLKDMXUFVU8984-81-19 09:38:001.2[facility] CvammueWYMSMELDHT4577-44-41 09:38:006.4[facility] [place] IZKLGDJIQD0715-96-40 09:38:000.4[facility] TxwokvcKMDJZFFTPY2494-86-02 09:38:003.1 [facility] ZvxvsywXETGQJQOSQ7459-73-22 09:38:0069.3[facility]annHEMATOLOGY 2014-05-13 09:38:0014.0[facility] CxvoorhQVUQNXTHRN0833-33-96 09:38:0013.2[facility] ViwjtbyMFMEHFPNKP1585-39-54 09:38:0012.8[facility] XlbxivhJNQNRVHNSX1670-80-87 09:38:004.62[facility] BnnfvesPYWWOJAPVD3344-11-70 09:38:0086.0[facility] KPYSKCKXFD3760-20-93 09:38:0039.7[facility] SnlqlsrKNEFLFPCMW6090-02-00 09:38:00 222[facility] DiejvsiDLUCHBBRJB5568-97-05 09:38:0014.3[facility] HermannHEMATOLOGY 2014-05-13 09:38:0032.3[facility] RvlmfjtPAGNXPGTFL0372-45-09 09:38:00 Test Item Value Reference Range Interpretation Comments MCH (test code = MCH) 27.7 pg 27.0-31.0 [facility] WiohdmuJHNTHBGBUG0098-65-74 09:38:008.9[facility]annHEMATOLOGY 2014-05-13 09:38:009.2[facility] QztaclnBYPVRFCMIP7277-35-26 08:01:0014.2[facility] NmvgrnrIEIFJMWMMW8366-91-14 08:01:03537Lhkucagt RxjvvavKDOGMCFBTM8701-58-90 08:01:009.5[facility] PrzyzstRPYRADTATS7214-01-79 08:01:008.9[facility] RYKIISEUBK7305-27-38 08:01:0012.6[facility] SkzhrsqBISETHKGNV4964-00-29 08:01:00 85.3[facility] NgzfzqgDIONWKWDKI6951-57-48 08:01:0038.1[facility]annHEMATOLOGY 2014-05-12 08:01:004.47[facility] JwmetirXPMDNFEPPZ2629-17-21 08:01:000.9[facility] WmbcdzxCZDGJYGCEX4722-22-54 08:01:001.3[facility] JcokgpkEVGANWBSDI0723-21-08 08:01:001.9[facility] QyagmtbBNMWIYOIGC0145-59-16 08:01:006.5[facility] ADCSJSDQAZ2772-95-13 08:01:000.4[facility] IdetqywONULXPOWLV9295-53-12 08:01:00 72.9[facility] QwkerqgVNPOTIODKM6310-25-25 08:01:009.8[facility]annHEMATOLOGY 2014-05-12 08:01:0015.0[facility] UvyrcyhMLNIELQXQL3789-48-20 08:01:000.2[facility] TmxehgkUBFKBLLZSZ5608-93-65 08:01:00Negative *NA*(05/12/14 3:01 AM)[facility]CARD[facility]AC KUZAYGK4035-01-24 08:01:000.3[facility] ENZYMES 2014-05-12 08:01:001.2[facility] TZVNYUM2257-77-61 08:01:24329 [facility] EMRWJGY3383-98-17 08:01:00<0.02[facility]annCHEM UDMPP7219-69-87 08:01:002.2[facility]annCHEM KKZJY0533-86-62 08:01:59580 [facility]annCHE[facility] KVFIO0873-49-77 08:01:009.1[facility]annCHEM PANEL 2014-05-12 08:01:0025[facility]annCHEM HGMGD0771-54-54 08:01:28973Ohzpmrjw HermannCHEM CGTBX1135-47-49 08:01:004.1[facility]annCHEM QQYGD6725-47-47 08:01:05285Snshkutd HermannCHEM VWHPX4212-62-79 08:01:000.9[facility]annCHEM LYHBL5733-00-44 08:01:006[facility]annCHEM RQCIZ8562-31-07 08:01:0089[facility]annCHEM IFPLI0974-43-64 08:01:0015.1[facility]annCHEM UMJCB5204-69-46 08:01:004.6[facility] SdrwhwsDOGAKYLVAZ0251-89-33 08:01:00 Test Item Value Reference Range Interpretation Comments MCH (test code = MCH) 28.3 pg 27.0-31.0 [facility] OdzllmtTQNICPAVTX0944-37-61 08:01:0033.1[facility]annCARDIAC ENZYMES 2014-05-11 21:43:06514Gqndjttv HermannCARDIAC KLDJZMN9841-68-91 21:43:002.2 [facility]annC[facility] WHKUTZL8215-71-05 21:43:000.5[facility]annC[facility] DIMGVWN0159-64-96 21:43:00<0.010[facility] MXWKJZO8431-37-67 21:43:00<0.02[facility] AULSMZL6160-12-12 16:06:00<0.02 [facility] SKIWHLE8890-12-04 16:06:00<0.010[facility] [place] CARDIAC OQUUMOG5714-76-45 16:06:79437Tpgsyijl HermannCARDIAC ZDISDEA8734-29-83 16:06:000.5[facility]annC[facility]AC ESALUPR1045-71-61 16:06:002.2[facility] CHEM RFCLK8067-22-11 11:47:412.9[facility]annCHEM VJOOP7179-94-60 11:47:412.0 [facility] UZKHFVX0482-08-77 11:11:00<0.010[facility] [place] WZENOKZVXT8715-57-27 11:11:0011.9[facility] RuewanjZEWEQMUTMSQA4831-46-71 06:05:00 13.9[facility] XwcqrvlASSNFJSYEGCM7902-79-33 06:05:08554Fewjiyaw [place] CPEUXUFUWWWK4611-96-67 06:05:009[facility] QcjmgpsDLZSEJOIIHHB7025-58-46 06:05:00 106[facility] CrkdxpxZFAXWIGWXDET7033-42-14 06:05:008.6[facility] GAKEAQPHHTHJ6883-41-36 06:05:0025[facility] FwhvmlgGVWUWBNENDPV1556-63-06 06:05:00 140[facility] UypomzpRXWUDLWNIXQV3938-22-04 06:05:001.0[facility] DXFMNXEHHCHX0598-03-31 06:05:003.9[facility] QkcdyasGVPTVKOELMLO1063-30-34 06:05:76804Bksdfrff RseamkfUBLUYNVIHM2585-97-14 06:05:0079.8[facility] [place] [place] KVEPPUTDRH5778-47-26 06:05:0010.5[facility] OanmrusGGVULTQJJG2812-34-18 06:05:00 7.4[facility] ZyzlcqkUOXAVJLMGY9168-03-26 06:05:002.0[facility]annHEMATOLOGY 2014-05-11 06:05:000.3[facility] LipsultFYRREDVHJL9867-73-55 06:05:001.0[facility] KyvwhxsUJIIHMCIQA6963-07-88 06:05:007.4[facility] LjwdkouOWOCLVBVND7126-31-93 06:05:000.7[facility] FrwgpvlMNDLSEKQKI4430-16-21 06:05:000.2[facility] [place] WCIGSJKTOI7125-96-62 06:05:009.3[facility] IkqcwyrKMPPNIERGK6972-54-88 06:05:71927 [facility] OczhvknFSOEREXNKX3546-40-13 06:05:009.3[facility]annHEMATOLOGY 2014-05-11 06:05:004.19[facility] DxogfyfSGXMZBEBXP2426-35-42 06:05:0011.8[facility] ItypseiMESQFHPMZA4185-55-60 06:05:0086.3[facility] TepbygkAGLOZKZVXV3809-72-72 06:05:0036.2[facility] BdqfafzDIWREQGJHY0278-92-68 06:05:00 Test Item Value Reference Range Interpretation Comments MCH (test code = MCH) 28.2 pg 27.0-31.0 [facility] AlmbocvWOQHPOHRNP8836-69-94 06:05:0014.6[facility]annHEMATOLOGY 2014-05-11 06:05:0032.7[facility] RgodbmnEXJSSSRKNN5735-20-55 06:05:002.6[facility] HermannCHEM XXLMU5474-48-57 05:35:002.2[facility]annCHEM GCXGM5475-50-71 05:35:003.5[facility]annCHEM CTTUF3468-10-62 05:35:001.0[facility]annCHEM PCONF1503-73-89 05:35:0014.4[facility]annCHEM YEHJI9331-78-18 05:35:009 [facility]annCHEM AMPKR7668-83-71 05:35:30200Vbwfnlst HermannCHEM PANEL 2014-05-08 05:35:0075[facility]annCHEM YSYVQ2297-95-85 05:35:000.2[facility] HermannCHEM JIUTO6289-28-28 05:35:35876Aypgyzru HermannCHEM TRRBQ3782-88-53 05:35:71341Lkzlacdk HermannCHEM SKVXB4262-53-37 05:35:001.0[facility]annCHEM VIIGP9321-51-30 05:35:003.4[facility]annCHEM JWRIB5550-40-00 05:35:009 [facility]annCHEM MRAPH7216-16-04 05:35:003.6[facility]annCHEM PANEL 2014-05-08 05:35:0023[facility]annCHEM RZTHZ0780-54-93 05:35:0023[facility]annCHEM CPLNU1463-46-54 05:35:008.4[facility]annCHEM EGCYS8960-79-48 05:35:60365Xeavhcyg HermannCHEM HRVNA0403-07-13 05:35:0027[facility]annCHEM ABNGZ3024-19-37 05:35:007.1[facility] TxxoksrFBLHJLSOSZ1904-81-86 05:35:00 Test Item Value Reference Range Interpretation Comments PTT (test code = PTT) 32.9 s 22.9-35.8 [facility] QpvjhhgVZNPWSXNIM5554-21-95 05:35:00 Test Item Value Reference Range Interpretation Comments PT (test code = PT) 13.0 s 12.0-14.7 [facility] IzvygdkZMFQARBRCE8463-85-08 05:35:000.98[facility]annHEMATOLOGY 2014-05-08 05:35:00 Test Item Value Reference Range Interpretation Comments MCH (test code = MCH) 28.5 pg 27.0-31.0 [facility] JhcipnsGKNFILCFVX8085-54-62 05:35:0085.0[facility]annHEMATOLOGY 2014-05-08 05:35:0036.8[facility] QpylzhlSASNGHXZKS6718-87-21 05:35:008.6[facility] MurkfjmYSJJTRYJAK9449-40-17 05:35:0012.3[facility] AkqeakiJVZAFCGHXB6295-34-20 05:35:004.33[facility] EeecqqvJWFDFALDJF7214-12-45 05:35:33445Pwdftcia [place] NIQASIRDAJ4531-11-98 05:35:0014.3[facility] HqruokqIOLKOWWYGY7705-47-88 05:35:00 33.6[facility] SvwohllJMXBHQJVEX9167-52-07 05:35:008.9[facility]annHEMATOLOGY 2014-05-08 05:35:002.5[facility] YpiovciLSXDYNAJYV0625-57-39 05:35:000.5[facility] ZvvqdibPRPGPQQWFG8035-63-52 05:35:005.9[facility] UrcjjelXWOHDHXGJN2486-36-14 05:35:001.7[facility] VvqdvtcOQYHNUKEKP0023-32-23 05:35:000.7[facility] IIPSCTBMVS9797-53-78 05:35:000.2[facility] GwbtdfnVREGXWLVEY6668-10-32 05:35:00 20.2[facility] YxdxyznFNYPWASZSC3055-58-48 05:35:008.2[facility]annHEMATOLOGY 2014-05-08 05:35:0068.6[facility]annCARDIAC KHQOHAB8181-77-18 10:08:95042 [facility]annCHEM WVNCN2015-40-59 10:08:002.0[facility]annCHEM PANEL 2014-02-09 10:08:006.4[facility] WntvunrGIKVCBPZPEYW4348-88-78 10:08:009.6[facility] KfthkruLJWIJZPCUKOR1143-76-46 10:08:22970Twlaoque WjneaasGMBLIMYJTJLQ2728-19-90 10:08:008.9[facility] SkmwadjSTTEHPQLMZWL6159-49-47 10:08:001.0[facility] CMKGRYWKYNPD3997-87-85 10:08:71837Cymkwcvv PmmuvbvEJUIYRNVMKMO7794-46-04 10:08:0032[facility] NabspctBALTPEFOWNLB7365-92-20 10:08:80129Zhimgmlt [facility] YCBZCEKHPQLQ1805-51-82 10:08:003.6[facility] PohbxvfFAQQVHNOYEOB3289-82-50 10:08:0013[facility] KgxukquQKCIPFPLNPZP9056-90-93 10:08:0091[facility] [place] SEJSTPIEXD7402-69-84 10:08:005.7[facility] SnfbsrxVQGQZJPSIT3291-86-07 10:08:00 4.40[facility] SfxcrpgWWJTQNOUTO3742-95-43 10:08:008.8[facility]annHEMATOLOGY 2014-02-09 10:08:0014.0[facility] MclehgzSNZYULDTPA0677-37-13 10:08:79409Fbfrqdlv GswossxDPWTYYTAKH3564-62-61 10:08:0085.9[facility] SfdmbsdGVHUWRFTHC3677-75-44 10:08:00 Test Item Value Reference Range Interpretation Comments MCH (test code = MCH) 28.1 pg 27.0-31.0 [facility] CdikwarZLXJCZMYIH2993-66-29 10:08:0032.7[facility]annHEMATOLOGY 2014-02-09 10:08:0012.4[facility] XwwnhujRZVXGKSAHO2783-53-11 10:08:0037.8[facility] KfsxyhvWQSMBHGQBY2381-76-47 10:08:000.8[facility] YivnvpoYCUKLBJUEP8797-04-58 10:08:000.2[facility] FqwatosFRXZSSCNPX1240-56-09 10:08:001.6[facility] PUALKANWZK1210-69-86 10:08:003.2[facility] YwxpjzaWQUYLMDZTC9549-13-58 10:08:003.0 [facility] AyaqtxiKTEQDREFVL5877-94-61 10:08:000.3[facility]annHEMATOLOGY 2014-02-09 10:08:0013.5[facility] RupqiafJFQSKYXOBN2697-00-78 10:08:0027.9[facility] BtrwakkYDBOZRHWZW0750-88-18 10:08:0055.3[facility]annURINE WFIM8969-81-25 00:43:0023.7[facility]annURINE KCIB3584-92-06 00:43:79137.2[facility] [place] URINE RLDZ8675-86-06 00:43:0067[facility]URINE LHLB3082-15-77 00:43:000.1 [facility]annCARDIAC PWHZRNO6714-60-33 09:47:51285Pspamgyu HermannCHEM PANEL 2014-02-08 09:47:0083[facility]annCHEM PATQP6463-86-97 09:47:84927Uxjwhshi HermannCHEM WRSMP8889-26-01 09:47:001.2[facility]annCHEM AYJUU7296-61-66 09:47:0018[facility]annCHEM OIKWI6904-05-18 09:47:26535Xwmtreis HermannCHEM GPPQB0687-89-65 09:47:008.9[facility]annCHEM FNUQU7891-89-50 09:47:0032 [facility]annCHEM UFOMO9958-91-40 09:47:003.6[facility]annCHEM PANEL 2014-02-08 09:47:009.6[facility]annCHEM PLULR8463-40-96 09:47:99287Bhmohnsf HermannCHEM DHBWS9090-36-39 09:47:007.8[facility]annCHEM YOFEC0690-72-64 09:47:002.2[facility] CobiyugVRPBJQNJPP9325-98-91 09:47:75750Tsjejdls [facility] SEVCRXCDVQ2583-08-81 09:47:0033.0[facility] ChirclrKNZSNXLSES3082-31-14 09:47:00 85.4[facility] UyhepluOCJBDGPPLG5467-82-17 09:47:00 Test Item Value Reference Range Interpretation Comments MCH (test code = MCH) 28.2 pg 27.0-31.0 [facility] NlgntrxQXAIXTBWYF3106-72-18 09:47:0039.5[facility]annHEMATOLOGY 2014-02-08 09:47:0013.9[facility] JrtkmfzMMPWZKTTQL5018-28-68 09:47:008.7[facility] UffkiltPMKTZLZRCQ8924-92-74 09:47:0013.0[facility] FnesbaeUHYHKPOWTK3723-19-72 09:47:004.62[facility] EuhhwrkGBZTDBIDYS1019-98-55 09:47:005.7[facility] [place] YOOPVBIRWJ2646-10-05 09:47:0024.2[facility] GmjifegEWRNGDOQLI6895-90-67 09:47:00 59.5[facility] GarzuegECENDYMIER2484-16-64 09:47:000.3[facility]annHEMATOLOGY 2014-02-08 09:47:0012.9[facility] HweecdaSGEXDXIVAK5793-87-74 09:47:003.1[facility] HubfwknSKUHDHUECF0774-01-70 09:47:003.4[facility] AeynkmmFOHCPCDDQL0389-97-86 09:47:001.4[facility] AdpejqgDTHPOVHLIB4495-86-63 09:47:000.7[facility] ODBVVKGUDL1548-94-76 09:47:000.2[facility]annUR[facility] AND XWXFI1123-00-35 17:00:00Performed (02/07/14 12:00 PM)[facility] LJDDN0306-66-65 17:00:0051-100 (02/07/14 12:00 PM)[facility] HMKDF2095-08-75 17:00:00None Seen (02/07/14 12:00 PM)[facility] BEWUA7701-66-80 17:00:00Trace *ABN*(02/07/14 12:00 PM)[facility] VCBWH7864-49-44 17:00:00Small *ABN*(02/07/14 12:00 PM)[facility] XHQKP7222-05-00 17:00:000.2[facility] WCETN1950-49-70 17:00:00Negative (02/07/14 12:00 PM)[facility] BOGTE5168-71-77 17:00:00Negative (02/07/14 12:00 PM)[facility] TRYAH9517-16-08 17:00:00Negative (02/07/14 12:00 PM)[facility] FPJUI6821-47-30 17:00:00Yellow *NA*(02/07/14 12:00 PM)[facility] SJFET2259-71-40 17:00:00Clear (02/07/14 12:00 PM)[facility] XTCZF4419-74-88 17:00:00 Test Item Value Reference Range Interpretation Comments UA Spec Grav (test code = UA Spec 1.025 1 Grav) [facility] NXXLE5530-88-27 17:00:00 Test Item Value Reference Range Interpretation Comments UA pH (test code = UA pH) 6.0 1 5.0-8.0 [facility] RYGRW1867-61-51 17:00:00Trace *ABN*(02/07/14 12:00 PM) [facility] FKBNK2133-78-00 17:00:00Negative (02/07/14 12:00 PM) [facility]annCARDIAC HRUMBMH3513-70-86 12:50:000.7[facility]annCARDIAC STGPFSE5954-58-17 12:50:005.2[facility]annCARDIAC CMSTAJX0657-92-06 12:50:00 <0.02[facility]annCARDIAC ZWTPUMT7965-21-17 12:50:22034Jerxlyqg [place] CHEM PEMHM8168-85-27 12:50:10807Bllzkhvv HermannCHEM KUAZS4442-56-05 12:50:0036 [facility]annCHEM OMSFO8899-37-60 12:50:0041[facility]annCHEM PANEL 2014-02-07 12:50:0095[facility]annCHEM MQOAN7318-75-56 12:50:000.8[facility]annCHEM MYVSD8823-33-18 12:50:0027[facility]annCHEM GFWEK5918-47-52 12:50:007.9[facility]annCHEM VKKXR9682-40-63 12:50:009.2[facility]annCHEM PRVAW3807-51-58 12:50:0040[facility]annCHEM DXVRO0064-63-46 12:50:004.1 [facility]annCHEM JUJAO8141-20-63 12:50:002.4[facility]annCHEM PANEL 2014-02-07 12:50:0026[facility]annCHEM XMABS9813-51-50 12:50:92070Nobaqmuz HermannCHEM FXLJE2898-68-71 12:50:0098[facility]annCHEM ZVCVL7293-40-03 12:50:003.1[facility]annCHEM LZKIX6562-13-18 12:50:59126Yaomxlbw HermannCHEM OMPLR3749-24-36 12:50:003.8[facility]annCHEM NYYCR3910-08-95 12:50:0011 [facility]annCHEM FNSED7308-99-94 12:50:0013.1[facility]annCHEM PANEL 2014-02-07 12:50:001.1[facility] ArgqxzaPEKUWRNCNA8489-55-99 12:50:0013.9[facility] IbmcafpTFGZIUMUOB6817-78-29 12:50:0033.3[facility] YueikmyDSVSMIZYES5860-17-45 12:50:008.7[facility] VxkdjfwGTAPPEQNKF3553-84-71 12:50:84171Crmnocaq [facility] UYHKAGHQBV7152-76-69 12:50:00 Test Item Value Reference Range Interpretation Comments MCH (test code = MCH) 28.3 pg 27.0-31.0 [facility] EtgziafPIKFKBCSEK8206-39-89 12:50:0084.9[facility]annHEMATOLOGY 2014-02-07 12:50:0043.9[facility] MogiauiUYLMFIKXMP3450-14-61 12:50:008.4[facility] EsqyqtgDWXIWSEOMT1423-04-34 12:50:005.18[facility] VqmicxaCRXBDZQZYP7280-47-76 12:50:0014.6[facility] UgwcdrxZFPDFFVDKD4021-92-42 12:50:000.1[facility] [place] LSIURZDOCT5045-20-79 12:50:005.7[facility] YcyncneZTDEPTVCJI1146-71-10 12:50:001.5 [facility] AzemvntXEPTMJOEQX4501-00-56 12:50:001.0[facility]annHEMATOLOGY 2014-02-07 12:50:001.5[facility] AwpcphkVTAJKQREVU7241-11-36 12:50:0067.6[facility] GbnqzlmZLNBDZXLMM2495-43-28 12:50:0018.4[facility] HfksxlsZUBTTKIULM8459-16-45 12:50:0011.9[facility] RhxulnqVPQUJFJHOB8949-27-66 12:50:000.6[facility] [place] UBOJFVHKHE2528-75-65 12:45:56Negative (02/07/14 7:45 AM)[facility]annCHEMISTRY 2013-07-21 11:10:0016[facility] GfyujiuDWIRGFLLF3709-33-30 11:10:001.0[facility] PhbeadiVPSZZIAWY8008-70-45 11:10:36108Durihvsi PfxdcpgAUHKZAEJP8784-38-50 11:10:004.4[facility] ZjsdkkzMKOXQHORC6911-94-19 11:10:07572Mihdnguw [facility] CYBVYNSEH7615-63-83 11:10:0024[facility] QafksjgXPEJNUBMZ2496-40-80 11:10:008.6 [facility] GyxleopCZYEEGQNS9448-31-38 11:10:69987Epsxilvv HermannCHEMISTRY 2013-07-21 11:10:0012.4[facility] IppuwdfTXLJPVSTKB5747-97-93 11:10:0014.3[facility] TdnhotlRSBQQNJURD0011-39-56 11:10:0032.8[facility] RxvogupPAGOECQNCC1358-38-04 11:10:00 Test Item Value Reference Range Interpretation Comments MCH (test code = MCH) 28.3 pg 27.0-31.0 N [facility] KjhcnxlSGQBOZRNSN8722-45-72 11:10:0086.4[facility]annHEMATOLOGY 2013-07-21 11:10:60808Qjldvggq WneewmnLFPSHBQMTW0426-83-96 11:10:0010.0[facility] DczzatrPQVYIFNMTA0801-06-85 11:10:0011.1[facility] RqbzobwTJNHTVAKFB4978-19-77 11:10:0012.3[facility] ClkbaqpSOBQXYJPOL2225-58-22 11:10:004.33[facility] [place] EBZOMXDNSV1609-83-73 11:10:0037.4[facility] HlsdbviHMKBWPXWYU1290-74-30 11:10:00 7.1[facility] ZyqfxgfNQZHRDHFVI4370-95-65 11:10:004.6[facility]annHEMATOLOGY 2013-07-21 11:10:0012.1[facility] FejtamnGEMFKTGUWS0887-83-93 11:10:0075.8[facility] PngcwwtQCLMDAETFX7823-04-65 11:10:001.3[facility] LgksgzzKPDJZAMBTB9660-38-01 11:10:008.4[facility] BtkauslOLIYVKPLLH4569-79-80 11:10:000.8[facility] CBDDRMWXXJ8418-23-01 11:10:000.5[facility] GtuqyozMEKAQMZBKU6903-18-59 11:10:000.0 [facility] RfsvmiaXYINWQOQUL8858-96-03 11:10:000.4[facility] HermannCHEMISTRY 2013-07-21 11:10:002.3[facility] NflqedqYJGPIUNHQ8463-98-81 11:10:004.4[facility] CfkpbwwECDOCDACQ6026-03-15 11:10:0023[facility] KgetnfuYZVMGOZQL7674-62-85 11:10:94021Innxvtxs NfafjprOOREYLRUP7425-23-43 19:12:0019.3[facility] [place] PFLQHUPHK4494-62-70 11:28:002.5[facility] DnjmuumASPJASMAA0251-49-72 11:28:47726 [facility] EqdqdynDMWCORWXY1466-50-91 11:28:0025[facility] HermannCHEMISTRY 2013-07-20 11:28:008.5[facility] QfcczhiECULWWGHU9439-25-89 11:28:003.4[facility] RzglxstPBDYCNXLJ3979-35-22 11:28:007.0[facility] EunwfvwPASSKJKWW0980-93-03 11:28:0025[facility] NmdqpovVASBTLPJA6948-41-15 11:28:0078[facility] [place] DGOPJWFCO3435-45-51 11:28:001.0[facility] GjcfptnSHHIFOQWH0758-98-92 11:28:003.8 [facility] MtplcfoFVIRCZGOA6768-92-62 11:28:91387Usuhnsdv HermannCHEMISTRY 2013-07-20 11:28:0024[facility] XfpuariZRZMKNHGH8411-93-53 11:28:73058Zegiflqc WwmjstqSCBBWAASW8005-56-59 11:28:0016[facility] NvbgstuXYLOTVBIT5562-98-71 11:28:79936Pkvlsowy IhipficCYXNONXJY7801-98-78 11:28:000.4[facility] SAMXNYOVG8068-26-82 11:28:000.9[facility] GlvlaipGJXGVWNZO7983-09-35 11:28:0013.8 [facility] KsvlxgiJIPCATXUR7791-40-88 11:28:0016[facility] HermannCHEMISTRY 2013-07-20 11:28:003.6[facility] OaeettvLTZLKGCBU8453-87-02 11:28:0034[facility] HlnduxrJDFPWRQWM1237-16-15 11:28:003.4[facility] AjajnfwSDFZFUGZFJ2155-05-08 11:28:001.8[facility] HmwmptwIJKCDJESKB9359-04-33 11:28:007.4[facility] [place] BUYBUQEBXJ5206-46-11 11:28:004.8[facility] ChddzwbNLZHERPWXL3864-31-28 11:28:000.4 [facility] BidekceCZTFCIGKYA6759-81-03 11:28:000.5[facility] HermannHEMATOLOGY 2013-07-20 11:28:001.0[facility] DacgntgOOCYNNXNDF7151-22-65 11:28:000.0[facility] DxquzeeQVRCJPUAPB9309-28-51 11:28:0016.5[facility] JfwbfsuKJMGIIFKNN8752-51-64 11:28:009.0[facility] JrnokmjOTRAHLEZYI1892-32-80 11:28:0069.3[facility] VXYKQEHQCH2510-83-94 11:28:009.9[facility] KkmbqrjTMNSDXHJSV4817-58-86 11:28:40356 [facility] ImzlwzrINOLHPGLED3505-47-50 11:28:0014.1[facility]annHEMATOLOGY 2013-07-20 11:28:00 Test Item Value Reference Range Interpretation Comments MCH (test code = MCH) 28.0 pg 27.0-31.0 N [facility] YlhxwdpJFLSJWVDGK8737-70-94 11:28:0031.9[facility]annHEMATOLOGY 2013-07-20 11:28:0087.6[facility] BmnytsiCETVVELLQN3848-81-35 11:28:0010.7[facility] EobvqqlIKNXADLWJT6614-11-80 11:28:004.38[facility] AbtuvhyTGVIRWEKQZ6051-00-81 11:28:0012.2[facility] GmlcohcYHKJKCUVLG2907-75-83 11:28:0038.4[facility] EMSJCLRLI3057-30-46 10:40:58Rm Air (07/20/2013 04:40:58)[facility] BEMFILLYZ7455-07-30 10:40:5833[facility] IbldfxhZJAHHCHEA0975-49-82 10:40:587.44 [facility] RiauhqmDDUBYFXLY3738-13-72 10:40:58-1[facility] HermannCHEMISTRY 2013-07-20 10:40:5822[facility] GjakovhCETZFZFFR0340-76-70 10:40:5883[facility] MsdrxiyEWACMGXCC4814-22-64 10:40:58Positive (07/20/2013 04:40:58)[facility] PzpmoavJQCZQMKUQ9208-09-60 10:40:5837.0[facility] BearauaTEBVPVTEH3476-96-23 10:40:58Left Rad (07/20/2013 04:40:58)[facility] CpwsivaCIOZONKIN8543-84-74 10:40:5896.6[facility] YnqixzzXVHNLMQPUC4299-04-91 12:00:000.00[facility] [place] NFRHLVGAPR7283-14-08 12:00:000.10[facility] VfnimufVPITHTQPNT8095-24-81 12:00:00 0.01[facility] BxrkckvQZEZQJJXD5055-60-51 11:29:000.03[facility] HermannCHEMISTRY 2013-07-19 11:29:97588Kfxaecry MyzrjxeTXIFIRQBD3739-28-88 11:29:000.5[facility] ZyhdrfqSEAYIKSCQ0935-23-14 11:29:002.2[facility] RpjzjjmNZFPGKCFS5099-91-41 11:26:58584Tutdsyyc CwunizqSRSOHHFED5693-45-85 11:26:0081[facility] DIYTDOFFK8846-99-47 11:26:008.7[facility] LztkbofTSRZGXYKZ6560-02-48 11:26:0024 [facility] TnnrlifAEOPWPTKT3319-17-76 11:26:0013.2[facility] HermannCHEMISTRY 2013-07-19 11:26:003.2[facility] ErbccewWJRHKBKHE7851-46-49 11:26:00344Zuzlodae NtseqnlKFDEZELAQ7588-22-36 11:26:001.1[facility] SalzvnfNVDNIHRVH5871-80-56 11:26:0014[facility] MyblhgwVUZCVNAEQ4617-49-06 11:26:47754Orgktdgg Luc[facility] MCFQHMOTR4509-80-16 11:26:85196Urgefblj GdjaiyuMQRIFIQUC6667-30-30 11:26:82159 [facility] OarvulwFQBUVYBCA6749-96-56 11:26:0029[facility]annCHEMISTRY 2013-07-19 11:26:22617Kvbqefyc TrdwgefAMFIPBOXZ8934-05-57 11:26:0079[facility] MyfkicpBVMCOUBWQ4199-17-66 11:26:005.38[facility] RrxcmbvYORLHSHKD9604-25-91 11:26:001.7[facility] FeyoehgVKSTYOIGF7737-83-53 11:26:003.2[facility] WWWKRBUOE5134-52-72 11:26:001.1[facility] NyzczonYYCOIXSFZR4004-59-88 11:26:0012.6 [facility] OqgupnsXQGLTJCSXV5247-92-43 11:26:004.49[facility]annHEMATOLOGY 2013-07-19 11:26:009.8[facility] EstgtdrYJADWBXVJG2270-75-34 11:26:0032.5[facility] SwmlkjeANXSMGYVRW5145-53-69 11:26:0014.6[facility] DiodylzXUQQLDDJYF1556-51-57 11:26:0038.8[facility] TxxcpeyRSGWJVRGZO3317-90-20 11:26:13856Flkvjonj Luc[facility] OVJPIOVVBX2326-90-46 11:26:00 Test Item Value Reference Range Interpretation Comments MCH (test code = MCH) 28.0 pg 27.0-31.0 N [facility] UdircdgORSQMBCJZM2578-99-25 11:26:0086.4[facility]annHEMATOLOGY 2013-07-19 11:26:0015.7[facility] EbdffrkYRUEUCXRRU6838-87-37 11:26:008.1[facility] McttazvDELSOTBQUP6709-33-64 11:26:000.3[facility] LscfwtlYHCKOZCNRI7672-96-37 11:26:000.1[facility] WqtlfgzPNTLQBLBEJ8899-62-63 11:26:001.3[facility] WZCHIQIIFY7829-32-28 11:26:001.7[facility] IqejspfVZZXHMEKLB6706-89-31 11:26:001.4 [facility] KslaazfGHZBNELQMT7292-50-72 11:26:000.4[facility]annHEMATOLOGY 2013-07-19 11:26:0012.7[facility] RzfrghpKKSXPLYYSM8520-23-56 11:26:008.8[facility] ZfpdoxcDNRJYXPKOK8783-63-57 11:26:0081.0[facility] ZlzzzllUCZOJODJPH1674-87-19 11:26:00Negative *NA*(07/19/2013 05:26:00)[facility] 2013-07-19 07:00:00Negative 1(07/19/2013 01:00:00)[facility] HermannMICRO MISC - UOEVGZCZ3750-05-78 07:00:00Negative 2, 3(07/19/2013 01:00:00)[facility] DZGYDPEMG8819-90-52 06:45:002.1[facility] TmzkkhaZEERZRYWV4400-61-00 06:45:000.5 [facility] VjaxuxuNPAYMFQGE9328-51-55 06:45:000.04[facility] HermannCHEMISTRY 2013-07-19 06:45:13171Sinaiypl NmwzyryMOKZXYBAP4801-77-05 06:45:07547Uforwukz WbfdbbjBDDLHMSCC8615-89-11 01:50:001.7[facility] WbkkeumFKJKQEKGP0850-11-05 19:38:4335[facility] FnelpmqOZHXQYEYW4149-62-17 19:38:437.44[facility] LUGMOJFJU8049-88-27 19:38:4393.2[facility] KlubetnZIXRSLWGI3995-96-77 19:38:4365 [facility] LcnwxnaBPKVEYGSQ9538-49-02 19:38:430[facility] IdaeijhMVPWYFIED1954-73-11 19:38:4324[facility] AubbjbxMQZXLYDES9158-03-86 19:38:43Right Ra (07/18/2013 13:38:43)[facility] FhirrkxVDBDXRYNH0516-72-06 19:38:43Positive (07/18/2013 13:38:43)[facility] VkdaiboZUPHNSXHI8246-81-69 19:38:43Rm Air (07/18/2013 13:38:43)[facility] ZdcuzysLFOOAAEUT9572-13-77 19:38:4337.0[facility] HermannVIRAL - BHPNLVIL9773-81-66 19:30:08Negative 4(07/18/2013 13:30:08)[facility] HermannVIRAL - BEBSBGTR9062-73-97 19:30:08Negative (07/18/2013 13:30:08)[facility] [place] EAWBTHCDJ6496-00-00 19:30:000.8[facility] TskzdieZITZVQASP1420-27-32 19:30:0026 [facility] ZgwjhorGWUAEKRWS6197-19-40 19:30:009[facility] ZlrbvnhOXBXDLDKW1833-25-15 19:30:0033[facility] WibwdjoCROKJLAHY1036-80-93 19:30:003.5[facility] ORSFBWFPF3324-18-73 19:30:001.1[facility] AouafkdFKNFWCCMD6029-47-58 19:30:27994 [facility] RsacubzAFRJBSCFW0049-57-10 19:30:001.0[facility] HermannCHEMISTRY 2013-07-18 19:30:004.0[facility] YrzsrlvLSTPEFITT4327-06-62 19:30:007.5[facility] IpxuxdkDQNLDPFLH1415-68-65 19:30:000.03[facility] DlhyfuySYVEASPJR2755-84-02 19:30:004.4[facility] [place]
[2020-10-08 16:33] LABS: Absolute Lymphocytes (CBC) 1.3 K/uL (0.7-4.9); Basophils % 0.6 % (0-1.3); Hematocrit 44.6 % (39.6-49.0); Lymphocytes % 18.7 % (15.3-44.8); MPV 8.8 fL (7.6-11.3); RBC Red Blood Cell Count 5.36 M/uL (4.33-5.43)
[2020-10-08 16:52] LABS: Albumin 4.7 g/dL (3.4-5.0); Bilirubin Direct 0.2 mg/dL (0-0.2); Bilirubin Total 0.4 mg/dL (0.2-1.0); Potassium 3.6 mmol/L (3.5-5.1); Protein, Total 9.2 g/dL (6.4-8.2)
--- NOTE | 2020-10-08 16:55 | RAD REPORT ---
EXAM DESCRIPTION: CT - Abdomen Pelvis W Contrast - 10/08/2020 4:41 pm CLINICAL HISTORY: Diarrhea;Abd pain;Nausea / vomiting, recent COVID vaccination COMPARISON: Abdomen Pelvis W Contrast dated 05/29/2020 TECHNIQUE: Biphasic, helical CT imaging of the abdomen and pelvis was performed following 100 ml non -ionic IV contrast. No oral contrast. All CT scans are performed using dose optimization technique as appropriate and may include automated exposure control or mA/KV adjustment according to patient size. FINDINGS: Minimal atelectasis changes are present with no focal infiltrate or pleural effusion. No p ericardial effusion. The liver, spleen, and pancreas show no suspicious findings. Gallbladder is contracted. No biliary tr ee dilatation. Symmetric renal function is seen with no hydronephrosis or suspicious renal mass. No pyelonephritis o r acute parenchymal process. No bladder abnormalities. No adrenal abnormalities. No gastric dilatation or wall thickening. No proximal small bowel abnormality. Colon and distal small bowel loops are fluid filled but not dilated. No associated wall thickening or edema. Appendix is no rmal. No free air, free fluid or inflammatory stranding. No hernia, mass or bulky lymphadenopathy. No acute bone finding. L5-S1 degenerative disc disease present. No acute vascular finding. IMPRESSION: No obstruction, free air or surgically emergent finding identified. Fluid-filled nondilated colon and distal small bowel could indicate a nonspecific enteritis.
--- NOTE | 2020-10-08 17:10 | RAD REPORT ---
EXAM DESCRIPTION: RAD - Foot Left 3 View - 10/08/2020 4:59 pm CLINICAL HISTORY: PAIN COMPARISON: No comparisons FINDINGS: No fracture, dislocation or periosteal reaction. No acute or destructive bony process. No joint space narrowing except for minimally at the first MTP joint. No erosive or destructive periart icular finding. Patient has a very early plantar and Achilles spurring. No air or foreign body in the soft tissues. IMPRESSION: Mild left foot degenerative change with no acute bone or joint finding. No suspicious soft tissue finding.
[2020-10-08] MEDS ORDERED: NA CHLORIDE 0.9% 1,000 ML ONE (17:16)
--- NOTE | 2020-10-08 18:05 | EDPHYS ---
Physician Documentation [facility] Name: Shawna Mccall Age: 54 yrs Sex: Male : 1965 Arrival Date: 10/08/2020 Time: 15:11 Bed 17 Private MD: HELENE GUTHRIE ED Physician Clint iSnger HPI: 10/08 16:12 This 54 yrs old Black Male presents to ER via Ambulatory with complaints of Vomiting, pm1 Abdominal Pain. 16:12 The patient presents to the emergency department with nausea, vomiting, diarrhea, pm1 abdominal pain. 16:12 Onset: The symptoms/episode began/occurred today. Possible causes: Patient attributes pm1 to 1st Moderna vaccine yesterday. The symptoms are aggravated by nothing. The symptoms are alleviated by nothing. Associated signs and symptoms: Pertinent negatives: fever. The patient has not experienced similar symptoms in the past. The patient has not recently seen a physician. Patient is also reporting left heel pain for 1 month that he believes might be gout. Historical: - Allergies: 15:18 No Known Allergies; ll1 - PMHx: 15:18 CHF; Migraines; CVA; Hypertension; Seizures; ll1 - PSHx: 15:18 L arm; ll1 - Immunization history:: Client reports receiving the 1st dose of the Covid vaccine, Flu vaccine is up to date. - Social history:: Smoking status: Patient reports the use of cigarette tobacco products, smokes one-half pack cigarettes per day. ROS: 16:12 Constitutional: Negative for fever, chills, and weight loss. pm1 16:12 Cardiovascular: Negative for chest pain, palpitations, and edema, Respiratory: Negative for shortness of breath, cough, wheezing, and pleuritic chest pain. 16:12 Skin: Negative for injury, rash, and discoloration, Neuro: Negative for headache, weakness, numbness, tingling, and seizure. 16:12 Abdomen/GI: Positive for abdominal pain, nausea, vomiting, and diarrhea, diffuse abdominal pain. 16:12 MS/extremity: Positive for pain, of the heel of left foot. Exam: 16:12 Constitutional: This is a well developed, well nourished patient who is awake, alert, pm1 and in no acute distress. Head/Face: Normocephalic, atraumatic. 16:12 Skin: Warm, dry with normal turgor. Normal color with no rashes, no lesions, and no evidence of cellulitis. MS/ Extremity: Pulses equal, no cyanosis. Neurovascular intact. Full, normal range of motion. 16:12 Cardiovascular: Exam negative for acute changes, Rate: normal, Rhythm: regular, Pulses: no pulse deficits are appreciated. 16:12 Respiratory: Exam negative for acute changes, respiratory distress, shortness of breath. 16:12 Abdomen/GI: Inspection: abdomen appears normal, Palpation: soft, in all quadrants, mild abdominal tenderness, in the left lower quadrant. 16:12 Neuro: Exam negative for acute changes, Orientation: is normal, Mentation: is normal, Motor: is normal, moves all fours. Vital Signs: 15:18 Pulse 88; Resp 17; Temp 98.8; Pulse Ox 98% ; Weight 119.29 kg; Height 5 ft. 5 in. ll1 (165.10 cm); Pain 8/10; 15:24 BP 134 / 82; ll1 16:30 BP 130 / 78; Pulse 90; Resp 20; Pulse Ox 98% on R/A; bw 17:30 BP 128 / 79; Pulse 91; Resp 20; Pulse Ox 98% on R/A; Pain 5/10; bw 18:35 BP 111 / 68; Pulse 85; Resp 18; Pulse Ox 98% ; ll1 15:18 Body Mass Index 43.77 (119.29 kg, 165.10 cm) ll1 MDM: 15:28 Patient medically screened. pm1 15:57 ED course: Patient refused covid and flu tests. pm1 17:44 Data reviewed: vital signs. Data interpreted: Pulse oximetry: on room air is 98 %. pm1 Interpretation: normal. Counseling: I had a detailed discussion with the patient and/or guardian regarding: the historical points, exam findings, and any diagnostic results supporting the discharge/admit diagnosis, lab results, radiology results, the need for outpatient follow up, to return to the emergency department if symptoms worsen or persist or if there are any questions or concerns that arise at home. 10/08 15:55 Order name: Basic Metabolic Panel; Complete Time: 17:19 pm1 10/08 15:55 Order name: CBC with Diff; Complete Time: 17:19 pm1 10/08 15:55 Order name: Hepatic Function; Complete Time: 17:19 pm1 10/08 15:55 Order name: Lipase; Complete Time: 17:19 pm1 10/08 16:12 Order name: Foot Left 3 View XRAY; Complete Time: 17:19 pm1 10/08 16:12 Order name: CT Abd/Pelvis - IV Contrast Only; Complete Time: 17:19 pm1 10/08 15:55 Order name: IV Saline Lock; Complete Time: 16:28 pm1 10/08 15:55 Order name: Labs collected and sent; Complete Time: 16:28 pm1 Administered Medications: 17:02 Drug: NS 0.9% 1000 ml Route: IV; Rate: 1000 ml; Site: left antecubital; bw 18:37 Follow up: Response: No adverse reaction; RASS: Alert and Calm (0); IV Status: ll1 Completed infusion; IV Intake: 600ml 18:00 Drug: Bentyl 20 mg Route: PO; bw 18:37 Follow up: Response: No adverse reaction; RASS: Alert and Calm (0) ll1 18:00 Drug: Zofran (Ondansetron) 4 mg Route: IVP; Site: left antecubital; bw 18:37 Follow up: Response: No adverse reaction; Nausea is decreased; RASS: Alert and Calm (0) ll1 18:01 Drug: morphine 4 mg Route: IVP; Site: left antecubital; bw 18:36 Follow up: Response: No adverse reaction; Pain is decreased; RASS: Alert and Calm (0) ll1 Disposition: 18:52 Co-signature as Attending Physician, Clint Singer MD. rn Disposition: 10/08/20 18:04 Discharged to Home. Impression: Vomiting, Diarrhea, unspecified, Calcaneal spur, left foot. - Condition is Stable. - Discharge Instructions: Heel Spur, Viral Gastroenteritis, Adult. - Prescriptions for Zofran ODT 4 mg Oral tablet,disintegrating - place 1 tablet by TRANSLINGUAL route every 8 hours As needed; 20 tablet. Bentyl 20 mg Oral Tablet - take 1 tablet by ORAL route every 6 hours As needed; 20 tablet. Tylenol- Codeine #3 300-30 mg Oral Tablet - take 2 tablets by ORAL route every 4-6 hours As needed; 20 tablet. - Medication Reconciliation Form, Thank You Letter, Antibiotic Education, Prescription Opioid Use, Work release form form. - Follow up: Emergency Department; When: As needed; Reason: Worsening of condition. Follow up: Private Physician; When: 2 - 3 days; Reason: Recheck today's complaints, Continuance of care, Re-evaluation by your physician. - Problem is new. - Symptoms have improved. Signatures: Dispatcher [employer] EDMS Clint Singer MD MD rn Marinas, Patrick, LAW WRITER LAW WRITER pm1 Marj Posada RN RN hb Lewis, Lynsay, RN RN 1 Neha Terry RN RN Corrections: (The following items were deleted from the chart) 15:23 15:18 Immunization history: Flu vaccine is not up to date. 1 [facility] 15:23 15:18 Social history: Smoking status: Patient denies any tobacco usage or history of. 1 ll1 18:05 18:04 10/08/2020 18:04 Discharged to Home. Impression: Vomiting; Diarrhea, unspecified. pm1 Condition is Stable. Forms are Medication Reconciliation Form, Thank You Letter, Antibiotic Education, Prescription Opioid Use. Follow up: Emergency Department; When: As needed; Reason: Worsening of condition. Follow up: Private Physician; When: 2 - 3 days; Reason: Recheck today's complaints, Continuance of care, Re-evaluation by your physician. Problem is new. Symptoms have improved. pm1 18:07 18:05 10/08/2020 18:04 Discharged to Home. Impression: Vomiting; Diarrhea, unspecified; pm1 Calcaneal spur, left foot. Condition is Stable. Forms are Medication Reconciliation Form, Thank You Letter, Antibiotic Education, Prescription Opioid Use. Follow up: Emergency Department; When: As needed; Reason: Worsening of condition. Follow up: Private Physician; When: 2 - 3 days; Reason: Recheck today's complaints, Continuance of care, Re-evaluation by your physician. Problem is new. Symptoms have improved. pm1 18:36 18:07 10/08/2020 18:04 Discharged to Home. Impression: Vomiting; Diarrhea, unspecified; hb Calcaneal spur, left foot. Condition is Stable. Forms are Medication Reconciliation Form, Thank You Letter, Antibiotic Education, Prescription Opioid Use. Follow up: Emergency Department; When: As needed; Reason: Worsening of condition. Follow up: Private Physician; When: 2 - 3 days; Reason: Recheck today's complaints, Continuance of care, Re-evaluation by your physician. Problem is new. Symptoms have improved. pm1
--- NOTE | 2020-10-08 18:05 | ER ---
Nurse's Notes [facility] Name: Shawna Mccall Age: 54 yrs Sex: Male : 1965 Arrival Date: 10/08/2020 Time: 15:11 Bed 17 Private MD: HELENE GUHTRIE Diagnosis: Vomiting;Diarrhea, unspecified;Calcaneal spur, left foot Presentation: 10/08 15:18 Chief complaint: Patient states: 1. Abd pain with N/V/D for 1 day. No known fever. ll1 States he had his first Moderna shot yesterday. 2. L foot pain for 1 month, states its bad gout. Coronavirus screen: Client denies travel out of the [place] in the last 14 days. At this time, the client does not indicate any symptoms associated with coronavirus-19. Ebola Screen: Patient denies travel to an Ebola-affected area in the 21 days before illness onset. Initial Sepsis Screen: Does the patient meet any 2 criteria? No. Patient's initial sepsis screen is negative. Does the patient have a suspected source of infection? Yes: Acute abdominal pain. Risk Assessment: Do you want to hurt yourself or someone else? Patient reports no desire to harm self or others. Onset of symptoms was October 08, 2020. 15:18 Method Of Arrival: Ambulatory ll1 15:18 Acuity: INGRID 3 ll1 Triage Assessment: 18:36 General: Appears in no apparent distress. Behavior is calm, cooperative, appropriate ll1 for age. GI: Abdomen is flat, Bowel sounds present X 4 quads. Abd is soft and non tender X 4 quads. Reports lower abdominal pain, upper abdominal pain, diarrhea, nausea, vomiting. Historical: - Allergies: 15:18 No Known Allergies; ll1 - PMHx: 15:18 CHF; Migraines; CVA; Hypertension; Seizures; ll1 - PSHx: 15:18 L arm; ll1 - Immunization history:: Client reports receiving the 1st dose of the Covid vaccine, Flu vaccine is up to date. - Social history:: Smoking status: Patient reports the use of cigarette tobacco products, smokes one-half pack cigarettes per day. Screenin:30 Abuse screen: Denies threats or abuse. Nutritional screening: No deficits noted. bw Tuberculosis screening: No symptoms or risk factors identified. Fall Risk None identified. Assessment: 16:30 Pain: Complains of pain in chest (on inspriation). Neuro: No deficits noted. bw Cardiovascular: No deficits noted. Respiratory: Reports shortness of breath cough that is. GI: Pt is actively vomiting clear fluid, Reports nausea, vomiting. : No deficits noted. 17:30 Reassessment: Patient appears in no apparent distress at this time. No changes from bw previously documented assessment. Patient and/or family updated on plan of care and expected duration. Pain level reassessed. Patient is alert, oriented x 3, equal unlabored respirations, skin warm/dry/pink. 18:05 Reassessment: DC pending IV bolus. bw 18:36 Reassessment: No changes from previously documented assessment. Patient and/or family ll1 updated on plan of care and expected duration. Pain level reassessed. Vital Signs: 15:18 Pulse 88; Resp 17; Temp 98.8; Pulse Ox 98% ; Weight 119.29 kg; Height 5 ft. 5 in. ll1 (165.10 cm); Pain 8/10; 15:24 BP 134 / 82; ll1 16:30 BP 130 / 78; Pulse 90; Resp 20; Pulse Ox 98% on R/A; bw 17:30 BP 128 / 79; Pulse 91; Resp 20; Pulse Ox 98% on R/A; Pain 5/10; bw 18:35 BP 111 / 68; Pulse 85; Resp 18; Pulse Ox 98% ; ll1 15:18 Body Mass Index 43.77 (119.29 kg, 165.10 cm) ll1 ED Course: 15:11 Patient arrived in ED. am2 15:11 HELENE GUTHRIE is Private Physician. am2 15:17 Arm band placed on. ll1 15:23 Triage completed. ll1 15:26 Lane Melgoza NP is PHCP. pm1 15:26 Clint Singer MD is Attending Physician. pm1 15:26 PHCP role handed off by Lane Melgoza NP [facility] 15:26 Augustin Reddy PA is PHCP. [facility] 15:26 PHCP role handed off by Augustin Reddy PA pm1 15:26 Lane Melgoza NP is PHCP. pm1 16:28 Inserted saline lock: 20 gauge in left antecubital area, using aseptic technique. Blood mt collected. 16:30 Neha Terry, RN is Primary Nurse. bw 16:41 CT Abd/Pelvis - IV Contrast Only In Process Unspecified. EDMS 16:59 Foot Left 3 View XRAY In Process Unspecified. EDMS 18:36 No provider procedures requiring assistance completed. IV discontinued, intact, ll1 bleeding controlled, No redness/swelling at site. Pressure dressing applied. Administered Medications: 17:02 Drug: NS 0.9% 1000 ml Route: IV; Rate: 1000 ml; Site: left antecubital; bw 18:37 Follow up: Response: No adverse reaction; RASS: Alert and Calm (0); IV Status: ll1 Completed infusion; IV Intake: 600ml 18:00 Drug: Bentyl 20 mg Route: PO; bw 18:37 Follow up: Response: No adverse reaction; RASS: Alert and Calm (0) 1 18:00 Drug: Zofran (Ondansetron) 4 mg Route: IVP; Site: left antecubital; bw 18:37 Follow up: Response: No adverse reaction; Nausea is decreased; RASS: Alert and Calm (0) 1 18:01 Drug: morphine 4 mg Route: IVP; Site: left antecubital; bw 18:36 Follow up: Response: No adverse reaction; Pain is decreased; RASS: Alert and Calm (0) [facility] Intake: 18:37 IV: 600ml; Total: 600ml. 1 Outcome: 18:04 Discharge ordered by . pm1 18:36 Patient left the ED. hb Signatures: Dispatcher [employer] EDMS Augustin Reddy PA PA jesseniam Lane Melgoza, SUNIL MASH FILTER OPERATOR pm1 Marj Posada, RN RN Aruna Arzate amLala Cortes mt, Lynsay, RN RN 1 Neha Terry, JOSE RN Corrections: (The following items were deleted from the chart) 15:23 15:18 Immunization history: Flu vaccine is not up to date. 1 ll1 15:23 15:18 Social history: Smoking status: Patient denies any tobacco usage or history of. 1 ll1 15:24 15:18 Chief complaint: Patient states: Abd pain with N/V/D for 1 day. No known fever. ll1 States he had his first Moderna shot yesterday. ll1
[2020-10-08] MEDS ORDERED: MORPHINE 4 MG/ML SYR ONE (18:09)
[2020-10-08] MEDS ORDERED: DICYCLOMINE HCL 10 MG CAP ONE (18:09)
[2020-10-08] MEDS ORDERED: ONDANSETRON 4 MG/2 ML VIAL ONE (18:09)
[2020-10-09 13:58] VITALS: O2SAT 98
[2020-10-09 14:04] VITALS: BP 111/68
[2020-10-09 14:06] VITALS: TEMP 98.1
== END 2020-10-08 18:36 | disposition home or self-care (01) ==
LOC: ER 15:10
DX: R19.7 Diarrhea, unspecified (principal); M77.32 Calcaneal spur, left foot; I10 Essential (primary) hypertension; F17.210 Nicotine dependence, cigarettes, uncomplicated
CPT/HCPCS: 36415; 74177; 80048; 80076; 82565; 83690; 85025; 96361; 96374; 96375; 99284; J2405; J7030; Q9967